=== PATIENT | male | born 1960 | race Caucasian/White ===

== ENCOUNTER 2017-10-21 17:30 | Outpatient (RCR) | payer MEDICAID, SELFPAY ==
--- NOTE | 2017-10-09 13:53 | HP.PTEVAL_ITS ---
Patient's Visit Information ESTEFANIA MILLER is a 56 year old M referred to Physical Therapy by Gil Otoole, Asha German PA-C with a diagnosis of S/P liver transplant , general weakness. Date of Evaluation: 10/07/17 Physical Therapist: Kirby Grayson - Visit Plan Frequency: 2x /Week Duration: 4 Weeks Plan: Start general mobility in aquatic setting with hip and LE strengthening. Progress dynamic balance and core stability. Pt. is not push, pull, lift greater than 5 lbs for 12 weeks. - Subjective Subjective: Pt. is here today for his initial evaluation with diagnosis of s/p liver transplant and general weakness. Pt. is a plesant 56 y.o. male who is know to this PT. He had his liver transplant on 2016. He is now back home and reports that he is doing well. Pt. is now walking with a cane due to R hip pain. He has a history of R TKA in 2013 then again in 2014. He reports having a femoral nerve injury with the initial hip arthroplasty and damage to lateral tendons of his hip. He denies falls since being home and reports feeling a lot better over the last 1-2 weeks. He is on antirejection medications and bactrum for 3 months. He is hopeful to improve general mobility , increase R hip strength allowing for increased ability to ambulate over greater distances with decreased limitations. - Pain R hip Pain Intensity (Out of 10): 2 Pain Intensity Range: 0, 6 - Objective POSTURE: Pt. had general flexed posture in stance. Pt. has rounded shoulders with slight FH. Pt. has increased ROSE in stance. Pt. is able to correct posture with VCing. Pt. does have L lateral lean in stance. Pt. has normal iliac crest heights. PALPATION: Pt. has well healing of abdominal incision. Pt. has increased pain with palpation of R posterior and lateral hip. Pt. has no pain at lumbar spine. Pt. has no signs of infection at this point in time. NEUROLOGICAL: Pt. has normal sensation of bilateral LEs to light and sharp touch. Pt. has 2+ bilateral achilles and patellar DTR bilateral. Pt. is able to rise on heels and toes without LOB and no visible signs of weakness. ROM- Pt. has normal ankle and knee ROM bilaterally. R hip- flexion 120deg mild increase NW, abd 45deg. NE, ext 8deg NE, tight HS noted. L hip- flexion 119deg NE, abd 45deg, ext 16deg NE, tight HS noted bilaterally. MMT- RLE- ankle 5/5 throughout ; knee- ext 4+/5, flexion 4/5; hip- flexion 3/5, abd 3-/5, ext 3/5. LLE- ankle 5/5 throughout; knee ext 4+/5, flexion 4/5; hip- flexion 4/5, abd 4/5, ext 4/5. GAIT: Pt. ambulates with single point cane. Pt. has increased R lateral trunk lean during R stance phase. Pt. reports increased R hip pain during stance phase. Pt. has decreased L step length. STAIRS: Pt. is able to complete with step to pattern with L loading phase. Pt. has difficulty with controlled eccentric lowering. - Goals Goal 1:: Pt. to be I with HEP. Goal Time Frame: 4-6 Weeks Goal 2:: Pt. to have increased bilateral LE strength by 1/2 grade of all effected musculature. Goal Time Frame: 4-6 Weeks Goal 3:: Pt. to ambulate unlimited distances with cane vs no AD allowing for increased community mobility. Goal Time Frame: 4-6 Weeks Goal 4:: Pt. to reports reduced R hip pain with ambulation to 0-2/10 pain with all functional mobility. Goal Time Frame: 4-6 Weeks Goal 5:: Pt. to negotiate steps with 1 HR with reciprocal pattern with 0-2/10 pain in R hip. - Rehabilitation Potential Physical Therapy Diagnosis: Pt. has signs and symtoms of general bilteral LE weakness, difficulty with gait, R hip pain and is S/P liver transplant in 2016. He would benefit from PT to increase BLE strength, gait progression, R hip stability/strength and cardiovascular fitness. Pt. to start in aquatic setting and progress to land as tolerated. Rehabilitation Potential: Good - Anticipated Interventions Patient/Client Instruction: Educate patient on: Condition, Plan of Care, Risk Factors, Benefits of Fitness Program For the Purpose of:: To foster healthy habits, To improve decision making, To facilitate caregiver knowledge, To improve self management, To prevent re-injury , To improve ability to perform tasks related to life management, To improve tolerance to ADL's Therapeutic Exercise to Include: Strength training, Power training, Endurance training, Balance training, Postural training, Flexibilty training, Gait and locomotor training, In an aquatic setting, Passive ROM, Active ROM, Dynamic Lumbar Stabilization For the Purpose of:: To decrease pain, To increase ROM, To improve nutrient delivery to tissue, To increase oxygenation perfusion, To improve muscle performance and motor function, To improve ability to perform ADL's, To improve performance and independence with ADL's, To improve gait and locomotor functions , To improve health of tissue, To decrease soft tissue restriction Thank you for the opportunity to evaluate your patient. For Medicare and Medicare HMO plans, please review the plan of care and approve it. It will need to be FAXED BACK to us at [phone] for Medicare purposes. Please let me know if there are questions or concerns regarding this plan of care. Physician Signature: Date:
--- NOTE | 2018-05-15 10:43 | HP.PTDCNRP_ITS ---
HP - Discharge Summary (1) - Patient Information ESTEFANIA MILLER Jr. was seen in my office for initial evaluation on 10/07/17. The following Plan of Care was established for this patient: Initial Frequency: 2x /Week Initial Duration: 4 Weeks - Anticipated Interventions Patient/Client Instruction: Educate patient on: Condition, Plan of Care, Risk Factors, Benefits of Fitness Program For the Purpose of:: To foster healthy habits, To improve decision making, To facilitate caregiver knowledge, To improve self management, To prevent re-injury , To improve ability to perform tasks related to life management, To improve tolerance to ADL's Therapeutic Exercise to Include: Strength training, Power training, Endurance training, Balance training, Postural training, Flexibilty training, Gait and locomotor training, In an aquatic setting, Passive ROM, Active ROM, Dynamic Lumbar Stabilization For the Purpose of:: To decrease pain, To increase ROM, To improve nutrient delivery to tissue, To increase oxygenation perfusion, To improve muscle performance and motor function, To improve ability to perform ADL's, To improve performance and independence with ADL's, To improve gait and locomotor functions , To improve health of tissue, To decrease soft tissue restriction This patient was last seen in our office 10/21/17. Pertinent comments regarding their Physical therapy will appear below: Pt. was treated for general debility after liver transplant. Pt. was to be treated in aquatic setting, but had to miss several visits due to soreness and fatigue. Pt. stopped attending PT and has not been seen in ~6 months. Pt. will be DC from PT at this point in time. At this point I will be discontinuing this patient from physical therapy. I would be happy to see this patient again in the future if found appropriate by the physician. Thank you! Kirby Grayson
== END 2017-10-21 19:00 | disposition home or self-care (01) ==
LOC: PT 17:30
PROVIDERS: Family Provider Family Medicine; PCP Family Medicine; Visit Provider Internal Medicine
DX: R53.1 Weakness (principal); Z94.4 Liver transplant status
CPT/HCPCS: 97113; 97162

== ENCOUNTER 2017-10-29 20:47 | Emergency (ER) | payer MEDICAID, SELFPAY ==
[2017-10-29 20:47] VITALS: BP 148/65; PULSE 57; RESP 24; TEMP 36.6; O2SAT 100; BMI 36.9
--- NOTE | 2017-10-29 21:15 | RAD_ITS ---
STUDY: X-RAY - ABDOMEN/PELVIS REASON FOR EXAM: Male, 56 years old. Constipation x5 days TECHNIQUE: Two AP supine views of the abdomen and pelvis. COMPARISON: None. FINDINGS: Normal visualized lung bases. There is an unremarkable bowel gas pattern. There is no demonstrated free abdominal air. The visualized liver, spleen and kidneys are grossly normal in size and morphology. Surgical clips are seen in the epigastric region. Total bilateral hip replacements are seen with implants appearing in good position. RAD/Abdomen Single View (Portable) IMPRESSION: The bowel gas pattern is unremarkable with no evidence of ileus or obstruction. There is an average amount of colonic stool. Status post total bilateral hip replacements. Electronically Signed: Lew Gutiérrez MD at 22:22 EST , Service support ,
[2017-10-29 22:37] VITALS: RESP 18
--- NOTE | 2017-10-29 22:37 | ED.DCSUM_ITS ---
- ER Visit Summary Date of Service: 10/29/17 Chief Complaint: Constipation History of Present Illness: The patient is a 56 M with constipation. Unable to have a bowel movement for 5 days. Past 2 days has used multiple doses of MiraLAX and Dulcolax. He states he tried disimpacting today with no success. She is normally has bowel movements daily. He is on oxycodone for chronic right hip pain. No changes in his doses. New medication with pravastatin started 11 days ago, he states he stopped this 7 days ago. States had lower abdominal discomfort due to his constipation. No fevers. He is status post liver transplant July of last year at [facility]. No urinary symptoms. No nausea or vomiting. Physical Examination: General: Alert and oriented ?3, no acute distress HEENT: Normocephalic, atraumatic. Moist mucosa membranes Neck: supple, nontender. Cardiovascular: Regular rate and rhythm, no murmurs Respiratory: Normal breath sounds, symmetric, no distress Abdomen: Soft, mild tenderness suprapubic without guarding or rebound., nondistended. Normal bowel sounds. Rectal: No hemorrhoids, digital exam noted impacted stools. No gross bleeding Extremities: Nontender, no edema, pulses intact ?4 Neuro: no focal neurological deficits. Test Results: KUB: Stool is noted in the distal rectum Emergency Department Course and Treatment: Patient was then impacted by myself in the ED. Sent for a KUB no stool in the distal rectum. I did order for soapsuds enema, given, is able to have a large bowel movement with improvement of symptoms. Reevaluation abdomen is now soft without tenderness. He is on opiates, he also states is on magnesium therefore causes loose stools therefore does not use his stool softeners daily. Discussed at least using MiraLAX once a day monitoring for at least daily bowel movements. Follow-up with his PCP for reevaluation as needed. Treatment Plan: [] Disposition: Discharge Impression: 1. Constipation resolved This note was generated with Owned it dictation software. It may contain incorrect words, spelling, and punctuation that were not noted in review of the chart prior to signing ED Disposition - Plan for ED Patient: Disposition: Home or Assisted Living Chief Complaint: Constipation Diagnosis: Constipation Instructions: ED Constipation Referrals: Raul Uribe [Primary Care Provider] - 5-7 Days
== END 2017-10-29 22:38 | disposition home or self-care (01) ==
PROVIDERS: Emergency Provider Emergency Medicine; Family Provider Family Medicine; PCP Family Medicine
DX: K59.00 Constipation, unspecified (principal); I25.10 Atherosclerotic heart disease of native coronary artery without angina pectoris; K75.81 Nonalcoholic steatohepatitis (NASH); N18.9 Chronic kidney disease, unspecified; M25.551 Pain in right hip; G89.29 Other chronic pain; I25.2 Old myocardial infarction; Z94.4 Liver transplant status
CPT/HCPCS: 74018; 99284

== ENCOUNTER 2017-11-15 15:13 | Emergency (ER) | payer MEDICARE, SELFPAY ==
[2017-11-15 15:14] VITALS: BP 121/74; PULSE 46; RESP 18; TEMP 36.7; O2SAT 95; BMI 37.3
--- NOTE | 2017-11-15 16:14 | ED.VISSUMM ---
- ER Visit Summary Date of Service: 11/15/17 Chief Complaint: Sent in for high potassium History of Present Illness: The patient is a 56 M patient history of liver failure in which she received a liver transplant around 3 months with [facility]. He also had a cholecystectomy. He also has stage III renal insufficiency coronary disease and cardiac stents. Denies any complaints. States that he had screening labs done 2 days ago. [facility] called him today his potassium is elevated 5.9 and wanted him evaluated in the ER. Physical Examination: Vital signs are stable afebrile. Pulse ox 95% room air no signs of hypoxia. Blood pressure 121/74. HEENT exam unremarkable. Neck nontender. Lungs clear to auscultation bilaterally. Heart rate rate and rhythm no murmur. Abdomen soft nontender. He is moving all 4 extremities. They are nontender. Back exam he has mild right paraspinal soft tissue tenderness he states he pulled a muscle in his back several days ago. There is no ecchymosis or bruising. Neurologic exam is normal. No motor deficits Test Results: CBC showed a normal white count his hemoglobin is 9.9 which is along his baseline of 7. His electrolytes are unremarkable and potassium of 5.3. He is chronic renal sufficiency his creatinine is 2.4 last and it was done was several months ago here at the hospital and it was 2.31 at that time. Emergency Department Course and Treatment: Labs will be rechecked. Treatment Plan: She is doing well on repeat exam at 1721. He will be discharged to home. He will need his potassium levels rechecked. He will be instructed to stay away from potassium rich foods. Disposition: Discharge Impression: Acute on chronic renal insufficiency with mild hyperkalemia Chronic anemia This note was generated with Sonics dictation software. It may contain incorrect words, spelling, and punctuation that were not noted in review of the chart prior to signing ED Disposition - Plan for ED Patient: Chief Complaint: Abn Labs Referrals: Raul rUibe [Primary Care Provider] -
--- NOTE | 2017-11-15 16:17 | ED.DCSUM_ITS ---
- ER Visit Summary Date of Service: 11/15/17 Chief Complaint: Sent in for high potassium History of Present Illness: The patient is a 56 M patient history of liver failure in which she received a liver transplant around 3 months with [facility]. He also had a cholecystectomy. He also has stage III renal insufficiency coronary disease and cardiac stents. Denies any complaints. States that he had screening labs done 2 days ago. [facility] called him today his potassium is elevated 5.9 and wanted him evaluated in the ER. Physical Examination: Vital signs are stable afebrile. Pulse ox 95% room air no signs of hypoxia. Blood pressure 121/74. HEENT exam unremarkable. Neck nontender. Lungs clear to auscultation bilaterally. Heart rate rate and rhythm no murmur. Abdomen soft nontender. He is moving all 4 extremities. They are nontender. Back exam he has mild right paraspinal soft tissue tenderness he states he pulled a muscle in his back several days ago. There is no ecchymosis or bruising. Neurologic exam is normal. No motor deficits Test Results: CBC showed a normal white count his hemoglobin is 9.9 which is along his baseline of 7. His electrolytes are unremarkable and potassium of 5.3. He is chronic renal sufficiency his creatinine is 2.4 last and it was done was several months ago here at the hospital and it was 2.31 at that time. Emergency Department Course and Treatment: Labs will be rechecked. Treatment Plan: She is doing well on repeat exam at 1721. He will be discharged to home. He will need his potassium levels rechecked. He will be instructed to stay away from potassium rich foods. Disposition: Discharge Impression: Acute on chronic renal insufficiency with mild hyperkalemia Chronic anemia This note was generated with Elpas dictation software. It may contain incorrect words, spelling, and punctuation that were not noted in review of the chart prior to signing ED Disposition - Plan for ED Patient: Chief Complaint: Abn Labs Referrals: Raul Uribe [Primary Care Provider] -
[2017-11-15 16:42] LABS: Hematocrit 30.9 % (40-54); Hemoglobin 9.9 g/dl (13.0-16.5); Mean Corpuscular Hgb 31.3 pg (27.0-32.0); Mean Corpuscular Volume 97.8 fL (80-94); Mean Platelet Vol. 9.6 fl (6.2-12.0); Platelet Count 183 K/mm3 (150-450); RBC Distribution Width CV 15.3 % (11.6-14.6); RBC Distribution Width SD 52.4 fl (35.1-43.9); Red Blood Count 3.16 M/mm3 (4.6-6.2); Scan Indicated on CBC? Y/N NO; White Blood Count 4.8 K/mm3 (4.4-11.0)
[2017-11-15 16:56] LABS: Anion Gap 5 (5-15); BUN 33 mg/dL (7-18); BUN/Creat Ratio 13.8 RATIO (10-20); Calcium,Total 8.4 mg/dL (8.5-10.1); Chloride 108 mmol/L (98-107); EST Glomerular Filtration Rate 30 mL/min (>60); Est Glom Filt Rate - Afr Amer 36 mL/min (>60); Glucose 105 mg/dL (74-106); Potassium 5.3 mmol/L (3.5-5.1); Sodium Level 141 mmol/L (136-145)
--- NOTE | 2017-11-15 17:23 | ED.DEP ---
ED Disposition - Plan for ED Patient: Disposition: Home or Assisted Living Chief Complaint: Abn Labs Instructions: Discharge Instructions for Hyperkalemia Referrals: Raul Uribe [Primary Care Provider] - 1 Week Additional Instructions: On follow-up your primary care physician next week to have your potassium rechecked. Avoid potassium rich foods such as bananas, potatoes and citrus fruits.
[2017-11-15 17:35] VITALS: BP 127/91; PULSE 82; RESP 18
== END 2017-11-15 17:38 | disposition home or self-care (01) ==
PROVIDERS: Emergency Provider Emergency Medicine; Family Provider Family Medicine; PCP Family Medicine
DX: E87.5 Hyperkalemia (principal); N17.9 Acute kidney failure, unspecified; N18.3 Chronic kidney disease, stage 3 (moderate); I25.10 Atherosclerotic heart disease of native coronary artery without angina pectoris; D64.9 Anemia, unspecified; Z94.4 Liver transplant status; Z79.82 Long term (current) use of aspirin; Z79.899 Other long term (current) drug therapy; I25.2 Old myocardial infarction; Z95.5 Presence of coronary angioplasty implant and graft; Z90.49 Acquired absence of other specified parts of digestive tract
CPT/HCPCS: 80048; 85027; 99284; A4216

== ENCOUNTER → 2017-12-27 11:19 | Outpatient (CLI) | payer MEDICARE, SELFPAY ==
--- NOTE | 2017-12-27 11:30 | RAD_ITS ---
STUDY: X-RAY - RIGHT SHOULDER REASON FOR EXAM: Male, 56 years old. Pain. Previous surgery. TECHNIQUE: 4 view(s) of the shoulder. COMPARISON: None. FINDINGS: Normal glenohumeral articulation. Widening of the AC joint measuring 9 mm, possibly a chronic separation or related to previous surgery. Normal acromion. Normal humeral head and visualized proximal humerus. The soft tissue structures are unremarkable. There is no demonstrated fracture. Normal visualized pulmonary apex. RAD/Shoulder min 2 Views IMPRESSION: No acute fracture or dislocation. Widened AC joint. Electronically Signed: Karl Bailon MD at 20:44 EDT , Service support ,
--- NOTE | 2017-12-27 11:30 | RAD_ITS ---
STUDY: X-RAY - LEFT SHOULDER REASON FOR EXAM: Male, 56 years old. Shoulder pain. Previous surgery. TECHNIQUE: 4 view(s) of the shoulder. COMPARISON: None. FINDINGS: Normal glenohumeral articulation. There is degenerative arthrosis of the acromioclavicular joint without inferior osseous spur formation. Normal acromion. Normal humeral head and visualized proximal humerus. The soft tissue structures are unremarkable. There is no demonstrated fracture. Normal visualized pulmonary apex. RAD/Shoulder min 2 Views IMPRESSION: No acute fracture or dislocation. Degenerative changes of the AC joint. Electronically Signed: Karl Bailon MD at 20:43 EDT , Service support ,
== END ==
PROVIDERS: Family Provider Family Medicine; PCP Family Medicine; Visit Provider Anesthesiology Pain Medicine
DX: M25.512 Pain in left shoulder (principal); M25.511 Pain in right shoulder
CPT/HCPCS: 73030

== ENCOUNTER 2018-03-19 09:56 | Outpatient (RCR) | payer MEDICARE, SELFPAY ==
--- NOTE | 2018-03-26 09:57 | HP.OTFCE_ITS ---
HP OT Functional Capacity Eval - Reference Duration Sedentary Sedentary Light Light Light Medium Medium Medium Heavy Very Heavy Heavy Occasional (0-33% of day) Frequent (34-66% of day) Constant (67-100% of day) 10 # Negligible Negligible 15 # 8 # Negligible 20 # 10# Negli. 35 # 18 # 7 # 50 # 25 # 10 # 75 # 100 # >100 # 38 # 50 # >50 # 15 # 20 # >20 # - Patient Information Height: 5 ft 10 in Weight:: 118.388 kg Hand Dominance: Right handed - Medical History Medical History Including Restrictions: PAF, AISSATOU, SVT, s/p liver transplant, hypomagnesemia, ascites, FELIPE, venous insufficiency, morbid obesity, anemia of chronic disease, CAD, chronic renal failure stage 3. Pt states pain in unspecified shoulder, chronic pain syndrome, radiculopathy lumbar region, other intervertebral disc disp. lumbar, other intervertebral disc disp lumbosacral, pain in unspecified hip, broken tailbone, bilateral shoulder sx's, cortizone shots in bilateral shoulders, R shoulder 03, L shoulder 08, R hip sx THR 2013, 2014, L hip THR 2014, Liver transplant 2016, heart attack with 2 stents 2015, gall bladder 03, R foot sx 80, 82, skin cancer L hand, L ear. - Diagnoses Diagnoses: PAF, AISSATOU, SVT, s/p liver transplant, hypomagnesemia, ascites, FELIPE, venous insufficiency, morbid obesity, anemia of chronic disease, CAD, chronic renal failure stage 3. Pt states pain in unspecified shoulder, chronic pain syndrome, radiculopathy lumbar region, other intervertebral disc disp. lumbar, other intervertebral disc disp lumbosacral, pain in unspecified hip, broken tailbone, bilateral shoulder sx's, cortizone shots in bilateral shoulders, R shoulder 03, L shoulder 08, R hip sx THR 2013, 2014, L hip THR 2014, Liver transplant 2016, heart attack with 2 stents 2015, gall bladder 03, R foot sx 80 , 82, skin cancer L hand, L ear. - Symptoms Symptoms: Pt states pain all the time, difficult time sleeping, stabbing pain L and R hips, dull ache L hip down his leg, R hip to back pain. - Pain Pain: L hip 03/11 during evaluation. Pt states pain all the time, difficult time sleeping, stabbing pain L and R hips, dull ache L hip down his leg, R hip to back pain. 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 Pt has been unemployed since December 2014. - ADLS ADLS: Pt lives w/ spouse, 1 story house, ramp to enter. AMB w/ rollator in community, AMB w/ std cane in house unless feeling unstable, pt states occassionally balance seems to be off. Indep w/ BADL's, occassionally requires assist with donning socks if pain bad. Indep w/ laundry and meal prep tasks. Laundry on main level. Weight restrictions 20# per pt, He can't roller picker his golf bag. Shower chair and grab bars in/out of shower, Comfort height commodes w / grab bar. Walk in shower w/ glass door. Dog Johan to care for gets food and water for the dog. Drives up to about an hour before he needs to move around. Sleeps in regular bed with orthopedic firm mattress. - Physical Examination Physical Examination: Enjoys playing golf has played 2 times this year, but states unable to finish all the holes because of pain. Going to look at mobile homes today to live in for 3 to 4 months at a time during winter months. ROM: BUE/BLE WFL Strength: Generlized MMT BUE 4/5, R LE 3+/5, L LE 4-/5 Right Equipment Associate Strength Average: 80.00 Left Equipment Associate Strength Average: 73.33 Right Lateral Pinch Average: 14.00 Left Lateral Pinch Average: 14.00 Right Tripod Pinch Average: 15.33 Left Tripod Pinch Average: 15.00 Comments: Pt completed functional activities questionnaire stating no he does not exercise regularly, yes he can do yard work if he paces himself, no he can not sit through a movie, play or concert, yes he can walk around his yard, no he can't walk around the block. yes he can shop for groceries using a scooter, no he can not carry groceries into the house and put them away, yes he can do the laundry and no he can not walk up/down steps. Yes he is able to cook and do housework such as sweeping but difficult. Yes he is able to bath, feed, dress and otherwise care for himself. Pt states he can drive or ride in a car for 1.5 hrs before needing to get out and stretch. He can walk at a mall, fair or event for 15-20 minutes. He usually sits for 1/2 hrs a day. He usually stands or walks for 1/2hrs a day. He usually lie/reclines for 1/2 hrs a day. His most comfortable position is lying flat. Sensation: Pt states numbness/tingling bilateral hips and hands, L hip down to middle of thigh Fine Motor: Pt states independent with all fine motor tasks. Balance: No falls in past 3 months. Pt states has had close calls with falls, walking into kitchen losing balance. - Non Material Handling Activities Bendin time slow, 10 times fast pace, with increased pain R hip 5/10 after completing bending tasks to floor. Squatting: Pt went to take first squat using chair for support, pt fell to floor on first squat when bending down. Pt stated no pain, pt was able to roll over and use the chair to climb up into standing position independently with therapist by his side. Pt stated no pain from fall just his pride. Once pt back up he used table/desk for support and completed 10 squats at a consistant pace. Kneeling: Pt states unable to complete kneeling. Declined to complete kneeling task. Reaching out/up: Pt demonstrated good ability to reach up and out to sides without loss of balance. Walking: Pt able to complete 15 min walk test around facility ambulating with std cane Standing: No loss of balance noted during standing. Sitting: Pt sat 9-10 min at a time then has to stand secondary to pain Climbing Stairs: Pt able to climb flight of 10 steps up/down with L hand on cane for support, R hand holding handrail. - Dynamic Occasional Lifting Capacity Floor Lift: Pt able to complete floor lift 20lb max secondary to pt's weight restrictions. Knee Lift: Pt able to complete knee lift 20lb max secondary to pt's weight restrictions Waist Lift: Pt able to complete waist lift 20lb max secondary to pt's weight restrictions Shoulder Lift: Pt able to complete shoulder lift 20lb max secondary to pt's weight restrictions Overhead Lift: Pt able to complete overhead lift 20lb max secondary to pt's weight restrictions Carrying: Pt able to carry 20lb max secondary to pt's weight restrictions Comments: Weight limit 20lb per pt
== END 2018-03-19 19:00 | disposition home or self-care (01) ==
LOC: OT 09:56
PROVIDERS: Family Provider Family Medicine; PCP Family Medicine; Visit Provider Anesthesiology Pain Medicine
DX: M25.519 Pain in unspecified shoulder (principal); G89.4 Chronic pain syndrome; M54.16 Radiculopathy, lumbar region; M54.17 Radiculopathy, lumbosacral region; M51.36 Other intervertebral disc degeneration, lumbar region; M51.37 Other intervertebral disc degeneration, lumbosacral region; M51.26 Other intervertebral disc displacement, lumbar region; M51.27 Other intervertebral disc displacement, lumbosacral region; M25.559 Pain in unspecified hip; M15.9 Polyosteoarthritis, unspecified; M96.1 Postlaminectomy syndrome, not elsewhere classified; M25.511 Pain in right shoulder; M25.512 Pain in left shoulder; M48.061 Spinal stenosis, lumbar region without neurogenic claudication
CPT/HCPCS: 97165; 97166; G8987; G8988; G8989

== ENCOUNTER 2018-04-18 11:41 | Emergency (ER) | payer MEDICARE, SELFPAY ==
[2018-04-18 11:42] VITALS: BP 130/71; PULSE 56; RESP 18; TEMP 36.6; O2SAT 99; BMI 38.4
[2018-04-18 12:09] VITALS: BP 128/80; PULSE 82; RESP 20; TEMP 36.8; O2SAT 98
[2018-04-18] MEDS: Ondansetron 4 MG/2 ML Vial IV (12:14)
[2018-04-18] MEDS: Morphine 4 MG/ML Syringe IV ×2 (12:14→14:17)
[2018-04-18] MEDS: 0.9% Normal Saline 1,000 ML 1000 ML IV (12:14)
[2018-04-18 12:23] LABS: Absolute Lymphocyte Count 0.81 X10^3/ul (0.83-4.51); Absolute Neutrophil Count 3.8 X10^3/uL (2.0-7.7); Basophil# 0.01 X10^3/uL; Basophil% 0.2 % (0-1); Eosinophil# 0.06 X10^3/uL; Eosinophils% 1.1 % (0-5); Hematocrit 27.9 % (40-54); Hemoglobin 9.2 g/dl (13.0-16.5); Lymphocyte # 0.81 X10^3/ul (4.0); Mean Corpuscular Hgb 30.2 pg (27.0-32.0); Mean Corpuscular Volume 91.5 fL (80-94); Mean Platelet Vol. 10.5 fl (6.2-12.0); Monocyte# 0.73 X10^3/uL; Monocyte% 13.5 % (0-10); Neutrophil # 3.78 X10^3/uL (2.7-7.7); Platelet Count 140 K/mm3 (150-450); RBC Distribution Width CV 12.1 % (11.6-14.6); RBC Distribution Width SD 39.5 fl (35.1-43.9); Red Blood Count 3.05 M/mm3 (4.6-6.2); White Blood Count 5.4 K/mm3 (4.4-11.0)
[2018-04-18 12:32] LABS: POSITIVE COUNT NO; POSITIVE DIFFERENTIAL NO; POSITIVE MORPHOLOGY NO
[2018-04-18 12:37] LABS: AST(SGOT) 14 U/L (15-37); Alanine Aminotransfer ALT/SGPT 37 U/L (16-61); Albumin, Serum 2.3 g/dL (3.2-5.0); Alkaline Phosphatase 234 U/L (45-117); Anion Gap 7 (5-15); BUN 27 mg/dL (7-18); BUN/Creat Ratio 14.1 RATIO (10-20); Bilirubin, Direct 0.56 mg/dL (0.00-0.30); Calcium,Total 8.4 mg/dL (8.5-10.1); Chloride 108 mmol/L (98-107); Creatinine, Serum 1.92 mg/dL (0.70-1.30); EST Glomerular Filtration Rate 39 mL/min (>60); Est Glom Filt Rate - Afr Amer 47 mL/min (>60); Estimated Creatinine Clearance 43.83 ml/min; Globulin 3.9 g/dL (2.2-4.2); Glucose 103 mg/dL (74-106); Lipase 47 U/L (73-393); Potassium 4.9 mmol/L (3.5-5.1); Protein, Total 6.2 g/dL (6.4-8.2); Sodium Level 139 mmol/L (136-145)
--- NOTE | 2018-04-18 13:27 | ED.VISSUMM ---
- ER Visit Summary Date of Service: 04/18/18 Chief Complaint: Abdominal pain, nausea History of Present Illness: The patient is a 57 M who presents with abdominal pain as well as nausea. This pain started about a week ago. At that time he had a biliary stent put in because he had a stone. This was done by ERCP. After that he started having some nausea. His pain is sharp in the right upper quadrant epigastric area. He denies any diarrhea. No urinary symptoms. Patient has a history of a liver transplant last July due to nonalcoholic steatohepatitis and alpha-1 antitrypsin. He has not had a fever. He tried Zofran at home which did not help his symptoms. Physical Examination: Vital signs are reviewed. Well-developed gentleman in no distress. BMI 38.5. HEENT exam unremarkable. Heart is regular rate and rhythm. Lungs are clear to auscultation bilaterally. Abdomen is soft and nondistended. He has pain in the right upper quadrant as well as epigastric area. His extremities do not reveal any edema. Skin is of normal color without rash. No jaundice. Cheek exam is normal. Test Results: White blood cell count normal. Hemoglobin 9.2. Creatinine 1.92. Liver panel shows a total bilirubin of 1, direct 0.56. Alk phos 234. AST 14, lipase 47. CAT scan without contrast reveals a stent in place. There are some varices noted. Nothing acute seen. Emergency Department Course and Treatment: She was given morphine and Zofran as well as IV fluids. I am unclear the etiology of his pain. There is no post ERCP pancreatitis. No signs of cholangitis. His white count is normal. I spoke with Asha from the [facility] transplant team. She agrees that there is nothing acute at this point. The patient is already on extended release morphine and OxyIR at home. He will continue these. She states to tell the patient that if he is not better in 2-3 days to call them they will arrange for more testing. Treatment Plan: [] Disposition: Discharge Impression: Abdominal pain status post ERCP, liver transplant patient This note was generated with TuneCoreation software. It may contain incorrect words, spelling, and punctuation that were not noted in review of the chart prior to signing ED Disposition - Plan for ED Patient: Chief Complaint: Abd Pain Referrals: Raul Uribe [Primary Care Provider] -
--- NOTE | 2018-04-18 13:58 | ED.DEP ---
ED Disposition - Plan for ED Patient: Disposition: Home or Assisted Living Chief Complaint: Abd Pain Instructions: ED Abdominal Pain Unkn Cause Referrals: Raul Uribe [Primary Care Provider] -
[2018-04-18 14:21] VITALS: BP 107/60
== END 2018-04-18 14:22 | disposition home or self-care (01) ==
PROVIDERS: Emergency Provider Emergency Medicine; Family Provider Family Medicine; PCP Family Medicine
DX: R10.11 Right upper quadrant pain (principal); R10.13 Epigastric pain; R11.0 Nausea; I25.10 Atherosclerotic heart disease of native coronary artery without angina pectoris; I25.2 Old myocardial infarction; Z79.82 Long term (current) use of aspirin; Z79.899 Other long term (current) drug therapy; Z98.890 Other specified postprocedural states; Z94.4 Liver transplant status
CPT/HCPCS: 74176; 80048; 80076; 83690; 85025; 96374; 96375; 96376; 99283; J7030; A4216; J2405

== ENCOUNTER 2018-07-24 12:40 | Emergency (ER) | payer MEDICARE, SELFPAY ==
[2018-07-24 12:40] VITALS: BP 161/90; PULSE 59; RESP 18; TEMP 36.2; O2SAT 98; BMI 34.8
--- NOTE | 2018-07-24 12:50 | EKG12_ITS ---
Test Reason : HTN Blood Pressure : / mmHG Vent. Rate : 057 BPM Atrial Rate : 057 BPM P-R Int : 202 ms QRS Dur : 094 ms QT Int : 454 ms P-R-T Axes : 012 -24 013 degrees QTc Int : 441 ms Sinus bradycardia Otherwise normal ECG Confirmed by SAHIL SHIPMAN, ROULA ([id number]), photography editor FÁTIMA RIVERA ([id number]) on 07/28/2018 10:17:59 AM Referred By: JERMAINE Confirmed By:ROULA BAXTER MD
--- NOTE | 2018-07-24 12:53 | RAD_ITS ---
STUDY: X-RAY CHEST REASON FOR EXAM: Male, 57 years old. Vomiting and shaking TECHNIQUE: Single view of the chest was obtained COMPARISON: May 16, 2017 chest radiograph FINDINGS: No lung consolidation, pleural effusion or pneumothorax. Cardiac size is mildly enlarged. Osseous structures demonstrate no acute abnormalities. IMPRESSION: Mild cardiomegaly. No lung consolidation or pneumothorax. No acute pulmonary pathology seen. Electronically Signed: Raymundo Snyder, at 13:29 EST Tel , Service support , RAD/Chest 1 View (Portable)
--- NOTE | 2018-07-24 12:57 | ED.VISSUMM ---
- ER Visit Summary Date of Service: 07/24/18 Chief Complaint: Weakness History of Present Illness: The patient is a 57 M presenting with generalized weakness and fatigue. His symptoms started yesterday. He has had nausea with no vomiting. He denies abdominal pain. He has had unsteady gait secondary to weakness. Per family he has been confused. He has had similar symptoms in the past when his ammonia levels have been high. He takes lactulose but his family states he sometimes misses doses. He was admitted to [facility] in June and found to have a blood clot in his liver. He is status post liver transplant 1 year ago. Physical Examination: Vitals are stable. Patient is afebrile. Alert no acute distress. HEENT exam dry mucous membranes Neck is supple. Lungs are clear and equal bilaterally. Heart is regular and bradycardic Abdomen is soft nontender nondistended. No guarding or rebound Extremities are unremarkable. Skin is warm and dry. No focal neurologic deficit. Mild confusion Remainder of exam is unremarkable. Emergency Department Course and Treatment: Patient given IV fluids, Zofran. EKG is sinus bradycardia rate of 57 with no acute ischemic changes. Chest x-ray shows no acute process. CBC is normal except hemoglobin 11.3. Chemistries normal except for BUN 23, creatinine 1.86. Direct bili 0.37, alk phos 177. Lipase is normal. INR 1.9. Troponin is negative. Lactic acid is 2.2. Ammonia level is 110. Mag and phos are normal. Patient was given lactulose. Discussed with the patient and his family. They prefer admission to [facility]. Discussed with the hospitalist. He feels patient should be transferred to [facility]. Family discussed with their veterans' coordinator who agrees with transfer. Discussed with [facility] and patient will be transferred. Disposition: Transfer [facility] Impression: Hepatic encephalopathy This note was generated with [employer] dictation software. It may contain incorrect words, spelling, and punctuation that were not noted in review of the chart prior to signing ED Disposition - Plan for ED Patient: Chief Complaint: Hypertension Referrals: Raul Uribe [Primary Care Provider] -
[2018-07-24] MEDS: Ondansetron 4 MG/2 ML Vial IV (12:59)
--- NOTE | 2018-07-24 13:00 | ED.DCSUM_ITS ---
- ER Visit Summary Date of Service: 07/24/18 Chief Complaint: Weakness History of Present Illness: The patient is a 57 M presenting with generalized weakness and fatigue. His symptoms started yesterday. He has had nausea with no vomiting. He denies abdominal pain. He has had unsteady gait secondary to w eakness. Per family he has been confused. He has had similar symptoms in the past when his ammonia levels have been high. He takes lactulose but his family states he sometimes misses doses. He was admitted to [facility] in June and found to have a blood clot in his liver. He is status post liver transplant 1 year ago. Physical Examination: Vitals are stable. Patient is afebrile. Alert no acute distress. HEENT exam dry mucous membranes Neck is supple. Lungs are clear and equal bilaterally. Heart is regular and bradycardic Abdomen is soft nontender nondistended. No guarding or rebound Extremities are unremarkable. Skin is warm and dry. No focal neurologic deficit. Mild confusion Remainder of exam is unremarkable. Emergency Department Course and Treatment: Patient given IV fluids, Zofran. EKG is sinus bradycardia rate of 57 with no acute ischemic changes. Chest x-ray shows no acute process. CBC is normal except hemoglobin 11.3. Chemistries normal except for BUN 23, creatinine 1.86. Direct bili 0.37, alk phos 177. Lipase is normal. INR 1.9. Troponin is negative. Lactic acid is 2.2. Ammonia level is 110. Mag and phos are normal. Patient was given lactulose. Discussed with the patient and his family. They prefer admission to [facility]. Discussed with the hospitalist. He feels patient should be transferred to [facility]. Family discussed with their student records coordinator who agrees with transfer. Discussed with [facility] and patient will be transferred. Disposition: Transfer [facility] Impression: Hepatic encephalopathy This note was generated with [employer] dictation software. It may contain incorrect words, spelling, and punctuation that were not noted in review of the chart prior to signing ED Disposition - Plan for ED Patient: Chief Complaint: Hypertension Referrals: Raul Uribe [Primary Care Provider] -
[2018-07-24 13:02] LABS: Absolute Lymphocyte Count 2.25 X10^3/ul (0.83-4.51); Absolute Neutrophil Count 4.2 X10^3/uL (2.0-7.7); Basophil# 0.02 X10^3/uL; Basophil% 0.3 % (0-1); Eosinophil# 0.13 X10^3/uL; Eosinophils% 1.8 % (0-5); Hematocrit 35.1 % (40-54); Hemoglobin 11.3 g/dl (13.0-16.5); Lymphocyte # 2.25 X10^3/ul (4.0); Lymphocyte % 31.2 % (19-41); Mean Corp Hgb Conc 32.2 g/gl (32-36); Mean Corpuscular Hgb 26.7 pg (27.0-32.0); Mean Corpuscular Volume 82.8 fL (80-94); Mean Platelet Vol. 9.4 fl (6.2-12.0); Monocyte# 0.65 X10^3/uL; Neutrophil # 4.15 X10^3/uL (2.7-7.7); Neutrophil % 57.6 % (47-70); POSITIVE COUNT NO; POSITIVE DIFFERENTIAL NO; POSITIVE MORPHOLOGY NO; Platelet Count 223 K/mm3 (150-450); RBC Distribution Width CV 16.5 % (11.6-14.6); RBC Distribution Width SD 49.3 fl (35.1-43.9); Red Blood Count 4.24 M/mm3 (4.6-6.2); White Blood Count 7.2 K/mm3 (4.4-11.0)
[2018-07-24 13:06] LABS: International Normalized Ratio 1.9; Prothrombin Time (Protime)PT. 21.6 SECONDS (11.7-14.9)
[2018-07-24 13:07] LABS: Partial Thromboplast Time 38.5 Seconds (24.1-36.2)
[2018-07-24 13:17] LABS: AST(SGOT) 25 U/L (15-37); Alanine Aminotransfer ALT/SGPT 29 U/L (16-61); Albumin, Serum 2.5 g/dL (3.2-5.0); Alkaline Phosphatase 177 U/L (45-117); Anion Gap 8 (5-15); BUN 23 mg/dL (7-18); BUN/Creat Ratio 12.4 RATIO (10-20); Bilirubin, Direct 0.37 mg/dL (0.00-0.30); Calcium,Total 8.5 mg/dL (8.5-10.1); Chloride 110 mmol/L (98-107); Creatinine, Serum 1.86 mg/dL (0.70-1.30); EST Glomerular Filtration Rate 40 mL/min (>60); Est Glom Filt Rate - Afr Amer 48 mL/min (>60); Estimated Creatinine Clearance 46.67 ml/min; Globulin 4.3 g/dL (2.2-4.2); Glucose 121 mg/dL (74-106); Lipase 174 U/L (73-393); Magnesium 1.8 mg/dL (1.6-2.6); Potassium 4.2 mmol/L (3.5-5.1); Protein, Total 6.8 g/dL (6.4-8.2); Sodium Level 142 mmol/L (136-145)
[2018-07-24 13:19] LABS: Phosphorus 3.4 mg/dL (2.5-4.9)
[2018-07-24 13:31] LABS: Lactic Acid 2.2 mmol/L (0.4-2.0)
[2018-07-24] MEDS: Lactulose 20 GM/30 ML UDC 10 GM PO (13:45)
[2018-07-24 13:48] VITALS: BP 157/88; PULSE 60; RESP 20; O2SAT 99
[2018-07-24 14:30] VITALS: BP 155/82; PULSE 54; RESP 14; O2SAT 98
[2018-07-24 14:31] LABS: Bacteria 0 SEEN /hpf (None Seen); Mucous, Urine 0 SEEN /hpf (<or=2+); Red Blood Cells-Urine 0 SEEN /hpf (0-5); Squamous Epithelial Cells - UA 0 SEEN /hpf (0-5); White Blood Cells 0 SEEN /hpf (0-5)
[2018-07-24 14:34] LABS: Color, Urine Yellow (Yellow); Glucose, Dipstick Normal (Normal); Ketone-Dipstick Negative (Negative); Leukocyte Esterase-Dipstick Negative /ul (Negative); Nitrite-Dipstick Negative (Negative); Occult Blood-Urine Negative /ul (Negative); Protein-Dipstick Negative (Negative); Specific Gravity, Urine 1.005 (1.002-1.030); Urine Bilirubin Dipstick Negative (Negative); Urine Clarity Sl. Cloudy (Clear); Urine Urobilinogen 8 mg/dl (Normal)
[2018-07-24 14:44] LABS: Amorphous Sediment 1+; Hyaline Cast 0-5 SEEN /lpf (0-5)
--- NOTE | 2018-07-24 15:17 | ED.RN ---
[facility] CALLED AND WILL BE HERE IN ABOUT 45 MIN
[2018-07-24 15:29] LABS: Amphetamine Urine VISTA NEGATIVE (<1000 ng/mL); Barbiturate Urine VISTA NEGATIVE (< 200 ng/mL); Benzodiazepine Urine VISTA NEGATIVE (< 200 ng/mL); Cocaine Urine VISTA NEGATIVE (< 300 ng/mL); Ecstacy Urine VISTA NEGATIVE (< 500 ng/mL); Methadone Urine VISTA NEGATIVE (< 300 ng/mL); PCP Urine VISTA NEGATIVE (< 25 ng/mL); THC Urine VISTA NEGATIVE (< 50 ng/mL); Vista UDS pH Range 7
[2018-07-24 15:30] VITALS: BP 156/79; PULSE 56; RESP 16; O2SAT 96
[2018-07-24 16:00] VITALS: BP 149/75; PULSE 57; RESP 14; O2SAT 97
[2018-07-24 16:28] VITALS: BP 148/78; PULSE 61; RESP 18; O2SAT 98
[2018-07-24 16:56] LABS: Reflex Lactate? Y
== END 2018-07-24 16:28 | disposition short-term general hospital (02) ==
PROVIDERS: Emergency Provider Emergency Medicine; Family Provider Family Medicine; PCP Family Medicine
DX: K72.90 Hepatic failure, unspecified without coma (principal); Z94.4 Liver transplant status; I10 Essential (primary) hypertension; I48.0 Paroxysmal atrial fibrillation; I25.10 Atherosclerotic heart disease of native coronary artery without angina pectoris; M06.9 Rheumatoid arthritis, unspecified; R00.1 Bradycardia, unspecified; R11.0 Nausea; I25.2 Old myocardial infarction; Z79.01 Long term (current) use of anticoagulants; Z79.82 Long term (current) use of aspirin; Z79.899 Other long term (current) drug therapy
CPT/HCPCS: 71045; 80048; 80076; 80307; 81001; 82140; 83605; 83690; 83735; 84100; 84484; 85025; 85610; 85730; 87040; 87086; 93005; 96361; 96374; 99285; J7040; A4216; J2405

== ENCOUNTER 2018-10-18 08:38 | Emergency (ER) | payer MEDICARE, SELFPAY ==
[2018-10-18 08:38] VITALS: BP 171/84; PULSE 58; RESP 18; TEMP 36.6; O2SAT 99; BMI 41.3
[2018-10-18 09:19] VITALS: BP 129/72; PULSE 53; RESP 12; TEMP 36.6; O2SAT 98
--- NOTE | 2018-10-18 09:40 | CT_ITS ---
STUDY: CT CERVICAL SPINE WITHOUT CONTRAST REASON FOR EXAM: Male, 57 years old. Fell into a wall from standing position RADIATION DOSAGE (If Supplied By Facility): CTDIvol = ( 38.74 ) mGy, DLP = ( 781.30 ) mGycm TECHNIQUE: High resolution transaxial imaging was performed without contrast material. Sagittal and coronal images were reconstructed. Individualized dose optimization techniques were used for this CT. COMPARISON: None FINDINGS: Normal craniovertebral junction. There are degenerative changes of the anterior atlantoaxial articulation. Normal odontoid process. There is straightening of the normal cervical lordosis. Normal vertebral bodies and posterior osseous elements. Ossifications of the posterior soft tissues compatible with old injury sequela. C2-3: Normal endplates. Normal disc height and morphology. Normal central canal and intervertebral neuroforamina. C3-4: Normal endplates. Normal disc height and morphology. Normal central canal and intervertebral neuroforamina. C4-5: Normal endplates. Normal disc height and morphology. Normal central canal and intervertebral neuroforamina. C5-6: Normal endplates. Normal disc height and morphology. Normal central canal and intervertebral neuroforamina. C6-7: Normal endplates. Normal disc height and morphology. Normal central canal and intervertebral neuroforamina. C7-T1: Normal endplates. Normal disc height and morphology. Normal central canal and intervertebral neuroforamina. Normal visualized soft tissue structures. CT/Spine Cervical without Contras IMPRESSION: 1. No cervical spine fracture or traumatic subluxation. 2. Straightening of normal cervical lordosis could represent positional artifact or muscular spasm. Electronically Signed: Isaak Lake MD at 10:56 EST , Service support ,
--- NOTE | 2018-10-18 09:40 | CT_ITS ---
STUDY: CT BRAIN WITHOUT CONTRAST REASON FOR EXAM: Male, 57 years old. Fall into a wall from standing position RADIATION DOSAGE (If Supplied By Facility): CTDIvol = ( 44.99 ) mGy, DLP = ( 812.98 ) mGycm TECHNIQUE: Transaxial CT imaging of the brain was performed without administration of intravenous contrast material. Individualized dose optimization techniques were used for this CT. COMPARISON: 01/22/2017 FINDINGS: Normal soft tissue structures. Normal calvarium. There is mild cerebral atrophy with widening of the extra-axial spaces and ventricular dilatation. There are areas of decreased attenuation within the white matter tracts of the supratentorial brain, consistent with microvascular disease changes. Normal basal ganglia and thalami. Normal brainstem. Normal cerebellum. There is no intracranial hemorrhage. There are no findings of an acute ischemic infarction. Normal visualized paranasal sinuses. CT/Brain/Head without Contrast IMPRESSION: 1. No acute intracranial hemorrhage or mass effect. 2. Central parenchymal volume loss. White matter changes that are nonspecific but most commonly associated with chronic small vessel ischemic disease. Electronically Signed: Isaak Lake MD at 10:46 EST , Service support ,
[2018-10-18 10:12] LABS: Absolute Lymphocyte Count 1.05 X10^3/ul (0.83-4.51); Absolute Neutrophil Count 1.9 X10^3/uL (2.0-7.7); Basophil# 0.02 X10^3/uL; Basophil% 0.6 % (0-1); Eosinophil# 0.09 X10^3/uL; Eosinophils% 2.5 % (0-5); Hematocrit 35.8 % (40-54); Hemoglobin 11.6 g/dl (13.0-16.5); Lymphocyte # 1.05 X10^3/ul (4.0); Mean Corp Hgb Conc 32.4 g/gl (32-36); Mean Corpuscular Hgb 29.4 pg (27.0-32.0); Mean Corpuscular Volume 90.9 fL (80-94); Monocyte# 0.57 X10^3/uL; Monocyte% 15.7 % (0-10); Neutrophil # 1.88 X10^3/uL (2.7-7.7); Neutrophil % 51.9 % (47-70); POSITIVE COUNT NO; POSITIVE DIFFERENTIAL NO; POSITIVE MORPHOLOGY NO; Platelet Count 121 K/mm3 (150-450); RBC Distribution Width CV 15.7 % (11.6-14.6); RBC Distribution Width SD 51.5 fl (35.1-43.9); Red Blood Count 3.94 M/mm3 (4.6-6.2); White Blood Count 3.6 K/mm3 (4.4-11.0)
[2018-10-18 10:23] LABS: Anion Gap 6 (5-15); BUN 16 mg/dL (7-18); BUN/Creat Ratio 9.6 RATIO (10-20); Calcium,Total 8.2 mg/dL (8.5-10.1); Chloride 108 mmol/L (98-107); Creatinine, Serum 1.66 mg/dL (0.70-1.30); EST Glomerular Filtration Rate 46 mL/min (>60); Est Glom Filt Rate - Afr Amer 55 mL/min (>60); Estimated Creatinine Clearance 50.69 ml/min; Glucose 112 mg/dL (74-106); Potassium 3.8 mmol/L (3.5-5.1); Sodium Level 142 mmol/L (136-145)
--- NOTE | 2018-10-18 11:18 | ED.VISSUMM ---
- ER Visit Summary Date of Service: 10/18/18 Chief Complaint: Fall History of Present Illness: The patient is a 57 M who presents with a fall that occurred today. Patient states he lost his balance. Patient states he has been losing his balance more frequently. Patient states he fell into a wall and hit his head. Patient is on Coumadin. Patient denies any paresthesias or weakness. Patient admits to some mild neck pain. Patient also complains of redness and swelling to his right leg. Patient is on Bactrim chronically after his liver transplant. Patient denies any fevers or chills. Patient denies any discharge or drainage from the leg. Physical Examination: Vital signs are stable. Patient is afebrile. Patient is in no acute distress. Cranial nerves II through XII are intact. There are no focal motor or sensory deficits noted. There is some mild edema and tenderness over the left frontal area of the scalp. There is no bony crepitance or step-off. Musculoskeletal exam reveals some mild cervical paraspinal tenderness. There is no midline tenderness. There is no bony crepitance. Heart was regular rate and rhythm. Lungs are clear and equal bilateral. Abdomen is soft. Bowel sounds are normal. There is edema, erythema, warmth over the right lower leg. There is no discharge or drainage. There is no calf tenderness. Pedal pulses are equal bilaterally. The remaining physical exam is within normal limits. Test Results: CT scan of the brain and cervical spine were obtained. There is no acute intracranial abnormality or cervical spine fracture. CBC and basic metabolic profile were obtained. Creatinine was 1.66 which is chronic. There are no acute abnormalities noted. Emergency Department Course and Treatment: Cervical collar was removed. Patient had good range of motion of the cervical spine without pain. Patient was given a dose of Ancef here. Patient was given Zofran and Toradol here. Patient was given prescription for Keflex. Patient was instructed to follow-up with his primary care physician in 5-7 days. Patient understood and was agreeable with the plan. All questions were answered. Disposition: Discharge home Impression: 1. Closed head injury 2. Cellulitis right leg This note was generated with [employer] software. It may contain incorrect words, spelling, and punctuation that were not noted in review of the chart prior to signing ED Disposition - Plan for ED Patient: Disposition: Home or Assisted Living Diagnosis: Closed head injury, Cellulitis Instructions: ED Mechanical Fall, ED Infec Skin Cellulitis Prescriptions: Cephalexin [Keflex] 500 mg PO Q6 #40 cap Referrals: Raul Uribe [Primary Care Provider] -
[2018-10-18 11:54] LABS: International Normalized Ratio 2.1; Prothrombin Time (Protime)PT. 23.7 SECONDS (11.7-14.9)
[2018-10-18] MEDS: Ondansetron ODT 4 MG Tablet PO (11:56)
[2018-10-18] MEDS: Ketorolac 15 MG/ML Vial IM (11:56)
== END 2018-10-18 14:16 | disposition home or self-care (01) ==
PROVIDERS: Emergency Provider Emergency Medicine; Family Provider Family Medicine; PCP Family Medicine
DX: S09.90XA Unspecified injury of head, initial encounter (principal); M54.2 Cervicalgia; W01.198A Fall on same level from slipping, tripping and stumbling with subsequent striking against other object, initial encounter; Y93.9 Activity, unspecified; Y92.9 Unspecified place or not applicable; Y99.9 Unspecified external cause status; L03.115 Cellulitis of right lower limb; Z94.4 Liver transplant status; I25.2 Old myocardial infarction; Z79.01 Long term (current) use of anticoagulants; Z79.899 Other long term (current) drug therapy; Z95.5 Presence of coronary angioplasty implant and graft
CPT/HCPCS: 70450; 72125; 80048; 85025; 85610; 96372; 99285; A4216; J2405

== ENCOUNTER 2018-10-23 17:12 | Observation (INO) | payer MEDICARE, SELFPAY ==
[2018-10-23 17:13] VITALS: BP 140/74; PULSE 58; RESP 16; TEMP 36.7; O2SAT 99; BMI 43.0
--- NOTE | 2018-10-23 17:59 | EKG12_ITS ---
Test Reason : EDEMA Blood Pressure : / mmHG Vent. Rate : 056 BPM Atrial Rate : 056 BPM P-R Int : 220 ms QRS Dur : 104 ms QT Int : 472 ms P-R-T Axes : 011 -24 003 degrees QTc Int : 455 ms Sinus bradycardia with 1st degree A-V block Otherwise normal ECG Confirmed by CARLA SHIPMAN, SUGAR ([id number]), editor greeting card FÁTIMA RIVERA ([id number]) on 10/27/2018 5:19:00 PM Referred By: SAV Confirmed By:SUGAR AGUIRRE MD
--- NOTE | 2018-10-23 18:04 | ED.DCSUM_ITS ---
- ER Visit Summary Date of Service: 10/23/18 Chief Complaint: Bilateral lower extremity edema History of Present Illness: The patient is a 57 M with history of liver transplant in July 2017 secondary to [place] and alpha-1 antitrypsin, transient CHF, and coronary artery disease status post 2 stents who presents for 6 weeks of gradually worsening lower extremity edema. Patient is on Coumadin for a blood clot in his liver. He was seen 1 week ago after a fall, and was started on Keflex for concern for possible cellulitis in the right lower extremity. He states there is been no change with the antibiotics, and his legs have progressively gotten more swollen. He noted leakage of fluid last night. He has shortness of breath but denies any worsening with laying flat, paroxysmal nocturnal dyspnea. No chest pain, fever and he does have mild nausea and abdominal discomfort. He states the edema is similar to prior to his liver transplant. He had a cardiac echocardiogram performed 2 weeks ago but does not know the results. Physical Examination: Vital signs: afebrile, hemodynamically stable, no hypoxia on room air General: well nourished, well developed, in no distress, BMI of 43 Skin: warm, dry, erythema with serous blistering on the right anterior jackson otherwise no rash, no pallor HEENT: normocephalic and atraumatic; PERRL, EOMI, moist mucous membranes Cardiovascular: regular rate and rhythm without murmurs, 3+ symmetric peripheral edema up to the knees, 2+ pulses all distal extremities Respiratory: No increased work of breathing, lungs are clear to auscultation bilaterally, no rales, rhonchi or wheezing Abdominal: Abdomen is soft, mildly tender with normoactive bowel sounds, no guarding or rebound, no masses MSK: Moves all extremities, no deformities, normal strength Neuro: Awake and alert, oriented ?4. No facial droop, sensation and motor function intact and symmetric Test Results: Abnormal Lab Results 10/23/18 10/23/18 10/23/18 18:20 18:20 18:20 WBC 4.2 L RBC 4.10 L Hgb 11.6 L Hct 36.3 L MCV 88.5 MCH 28.3 MCHC 32.0 RDW 15.8 H RDW Differential 51.3 H Plt Count 126 L MPV 9.9 Immature Gran % (Auto) 0.000 Neut % (Auto) 39.3 L Lymph % (Auto) 40.5 Stanton % (Auto) 18.1 H Eos % (Auto) 1.9 Baso % (Auto) 0.2 Absolute Neuts (auto) 1.7 L Absolute Lymphs (auto) 1.70 Total Counted Not Reportable PT 24.7 H INR 2.2 Sodium 145 Potassium 4.6 Chloride 106 Carbon Dioxide 32.0 Anion Gap 7 BUN 22 H Creatinine 1.88 H Estim Creat Clear Calc 44.76 Est GFR (MDRD) Af Amer 48 L Est GFR (MDRD) Non-Af 39 L BUN/Creatinine Ratio 11.7 Glucose 93 Calcium 8.0 L Total Bilirubin 0.70 AST 32 ALT 27 Alkaline Phosphatase 167 H Troponin I < 0.015 B-Natriuretic Peptide Total Protein 5.6 L Albumin 2.3 L Globulin 3.3 Albumin/Globulin Ratio 0.7 L 10/23/18 18:20 WBC RBC Hgb Hct MCV MCH MCHC RDW RDW Differential Plt Count MPV Immature Gran % (Auto) Neut % (Auto) Lymph % (Auto) Stanton % (Auto) Eos % (Auto) Baso % (Auto) Absolute Neuts (auto) Absolute Lymphs (auto) Total Counted PT INR Sodium Potassium Chloride Carbon Dioxide Anion Gap BUN Creatinine Estim Creat Clear Calc Est GFR (MDRD) Af Amer Est GFR (MDRD) Non-Af BUN/Creatinine Ratio Glucose Calcium Total Bilirubin AST ALT Alkaline Phosphatase Troponin I B-Natriuretic Peptide 161.3 H Total Protein Albumin Globulin Albumin/Globulin Ratio Clinical Impression(s) from Imaging Studies Chest X-Ray 10/23/18 19:20 IMPRESSION: No acute cardiopulmonary process. Electronically Signed: Ly Yeung MD at 19:36 EST Tel , Service support , Medications Given Ampicillin Sodium/Sulbactam (Sodium 3 gm/ Sodium Chloride) 112 mls @ 150 mls/hr IV X1 ONE Stop: 10/23/18 22:40 Discontinued Medications Furosemide (Lasix) 40 mg IV X1 ONE Stop: 10/23/18 18:01 Last Admin: 10/23/18 19:39 Dose: 40 mg Emergency Department Course and Treatment: Patient presents for worsening lower extremity edema in both legs, and with tender warm erythema, now with blistering, on the right jackson that did not respond to outpatient antibiotics. The erythematous warm area is asymmetric when compared to the left lower extremity, thus cellulitis is still on the differential with concern for outpatient failure. It also may be skin changes related to patient's significant 3+ pitting edema. Patient was given IV Lasix. Workup was performed to evaluate for any possible underlying CHF. EKG showed a sinus rhythm with first-degree AV block and no ischemic changes. Patient's BNP was mildly elevated at 161. Chest x-ray showed no sign of pulmonary edema. Patient's hepatic function was within normal limits and INR was therapeutic at 2.2. Patient does have hypoalbuminemia of 2.3, which is chronic for him. Patient was started on IV Lasix and had good urinary output afterwards. Patient also was started on Unasyn for concern for possible right lower extremity cellulitis that failed outpatient treatment. He will benefit from admission for further management of his worsening lower extremity edema and concern for right lower extremity cellulitis that failed outpatient treatment. Treatment Plan: [] Disposition: [] Impression: Severe bilateral lower extremity edema, right lower extremity cellulitis This note was generated with [employer] dictation software. It may contain incorrect words, spelling, and punctuation that were not noted in review of the chart prior to signing ED Disposition - Plan for ED Patient: Disposition: Acute [facility]
[2018-10-23 18:32] LABS: Absolute Neutrophil Count 1.7 X10^3/uL (2.0-7.7); Basophil# 0.01 X10^3/uL; Basophil% 0.2 % (0-1); Eosinophil# 0.08 X10^3/uL; Eosinophils% 1.9 % (0-5); Hematocrit 36.3 % (40-54); Hemoglobin 11.6 g/dl (13.0-16.5); Lymphocyte % 40.5 % (19-41); Mean Corpuscular Hgb 28.3 pg (27.0-32.0); Mean Corpuscular Volume 88.5 fL (80-94); Mean Platelet Vol. 9.9 fl (6.2-12.0); Monocyte# 0.76 X10^3/uL; Monocyte% 18.1 % (0-10); Neutrophil # 1.65 X10^3/uL (2.7-7.7); Neutrophil % 39.3 % (47-70); POSITIVE COUNT NO; POSITIVE DIFFERENTIAL NO; POSITIVE MORPHOLOGY NO; Platelet Count 126 K/mm3 (150-450); RBC Distribution Width CV 15.8 % (11.6-14.6); RBC Distribution Width SD 51.3 fl (35.1-43.9); White Blood Count 4.2 K/mm3 (4.4-11.0)
[2018-10-23 18:37] LABS: International Normalized Ratio 2.2; Prothrombin Time (Protime)PT. 24.7 SECONDS (11.7-14.9)
[2018-10-23 18:55] LABS: ALB/GLOB Ratio 0.7 RATIO (0.9-2.4); AST(SGOT) 32 U/L (15-37); Alanine Aminotransfer ALT/SGPT 27 U/L (16-61); Albumin, Serum 2.3 g/dL (3.2-5.0); Alkaline Phosphatase 167 U/L (45-117); Anion Gap 7 (5-15); BUN 22 mg/dL (7-18); BUN/Creat Ratio 11.7 RATIO (10-20); Chloride 106 mmol/L (98-107); Creatinine, Serum 1.88 mg/dL (0.70-1.30); EST Glomerular Filtration Rate 39 mL/min (>60); Est Glom Filt Rate - Afr Amer 48 mL/min (>60); Estimated Creatinine Clearance 44.76 ml/min; Globulin 3.3 g/dL (2.2-4.2); Glucose 93 mg/dL (74-106); Potassium 4.6 mmol/L (3.5-5.1); Protein, Total 5.6 g/dL (6.4-8.2); Sodium Level 145 mmol/L (136-145)
[2018-10-23 19:03] LABS: BNP,B-Type NATRIURETIC PEPTIDE 161.3 pg/mL (0-100)
[2018-10-23 19:15] VITALS: BP 123/57; PULSE 55; RESP 13; O2SAT 98
--- NOTE | 2018-10-23 19:20 | RAD_ITS ---
STUDY: X-RAY CHEST REASON FOR EXAM: Male, 57 years old. Bilateral lower extremity edema. TECHNIQUE: PA and lateral views of the chest. COMPARISON: July 24, 2018 FINDINGS: There is no new focal consolidation. Normal size heart. Normal mediastinum and debora. Normal visualized pulmonary arteries. Normal visualized aortic arch and descending thoracic aorta. Normal visualized thoracic spine. Normal visualized ribs, clavicles, and shoulders. There is no demonstrated abnormality of the visualized soft tissue structures of the upper abdomen. RAD/Chest PA and Lateral IMPRESSION: No acute cardiopulmonary process. Electronically Signed: Ly Yeung MD at 19:36 EST Tel , Service support ,
[2018-10-23] MEDS: Furosemide 40 MG/4 ML Vial IV (19:39)
[2018-10-23 21:00] VITALS: BP 109/66; PULSE 55; RESP 16; O2SAT 97
[2018-10-23 22:00] VITALS: BP 126/82; PULSE 58; RESP 14
--- NOTE | 2018-10-23 22:14 | HP.PCM_ITS ---
Problem List (1) Bilateral leg edema Status: Acute (2) Cellulitis Status: Acute Qualifiers: Site of cellulitis: extremity History of Present Illness Date of Admission: 10/23/18 Chief Complaint: bilateral leg edema The patient is a 57 year old M with a significant history of Felipe cirrhosis status post liver transplantation; portal vein thrombosis on Coumadin; CAD status post stents who presented with a 2-month history of progressively worsening bilateral leg edema. Also patient reports bilateral leg pain; seepage from bilateral legs and right leg redness. Associated with his symptoms is occasional shortness of breath. Patient's was evaluated at emergency department on 10/18/2017 and was diagnosed with closed head injury and cellulitis of the right leg. He was prescribed Keflex. The patient reports that while on Keflex his redness of his right leg has rather worsened. Patient is on daily Bactrim because of his history of liver transplant and on immunosuppressive therapy. Patient was on home Lasix 20 mg p.o. every day but about 3 weeks ago his Lasix dose was escalated to 20 mg twice a day. He was evaluated with echocardiogram 2 weeks ago at [facility]. Patient does not know the results of the echocardiogram. He saw his liver doctor about a month ago. His liver profile was appropriate and his bilateral leg swelling was not attributed to his liver. Because of a portal vein thrombosis bilateral lower extremity was done. The bilateral lower extremity Doppler did not show any DVT. Family reported that after patient had an NM in 2015 his bilateral legs has remained swollen off and on. Further, patient has had off and on increase redness of his right leg. At baseline his right leg is somewhat red. Past Medical History Past Medical History (Chronic Problems): Chronic Problems PAF (paroxysmal atrial fibrillation) (Chronic) Ascites (Chronic) FELIPE (nonalcoholic steatohepatitis) (Chronic) Status post liver transplant in July 2017 at [facility] Venous insufficiency (Chronic) Morbid obesity (Chronic) Anemia of chronic disease (Chronic) CAD (coronary artery disease) (Chronic) Chronic renal failure, stage 3 (moderate) (Chronic) Allergies pravastatin [From Pravachol] Allergy (Verified 10/23/18 17:16) Other Pmyhfkv-Wwu-Cpm Reductase Inhibitor Allergy (Verified 10/23/18 17:16) Other zolpidem tartrate [From Ambien] Allergy (Verified 10/23/18 17:16) Hives from the controlled or slow-release ambien. does not have any reactions to r egular ambien. Home Medications: Ambulatory Orders Medication Instructions Recorded Aspirin [Adult Low Dose Aspirin EC] 81 mg PO DAILY 10/21/15 Fluoxetine [Prozac] 40 mg PO DAILY 01/22/17 Amiodarone HCl [Cordarone] 200 mg PO DAILY 08/08/17 Cholecalciferol (Vitamin D3) 5,000 unit PO DAILY 08/08/17 [Vitamin D3] Smz/Tmp Ds [Bactrim Ds] 1 tablet PO DAILY 08/08/17 Metoprolol Tartrate 25 mg PO BID 08/15/17 Acetaminophen 500 mg PO Q6H PRN 11/15/17 Cyclobenzaprine [Flexeril] 10 mg PO TID PRN 11/15/17 Ondansetron [Zofran Odt] 4 mg PO Q8H PRN PRN 11/15/17 Actigall 300 mg PO TID 04/18/18 Everolimus [Zortress] 0.5 mg PO BID 07/24/18 Lactulose [Constulose] 10 gm PO TID 07/24/18 Oxycodone HCl [Roxicodone] 7.5 mg PO Q6H PRN 07/24/18 Tacrolimus Anhydrous [Prograf] 0.5 mg PO DAILY 07/24/18 Warfarin [Coumadin (PBKC)] 2 mg PO DAILY 07/24/18 Cephalexin [Keflex] 500 mg PO Q6 #40 cap 10/18/18 Surgical History: cholecystectomy, - - bilateral hip replacement 12/15, shoulder surg bilaterally, foot surgery, PCI x 1. Liver transplant in July of [address] [facility] Lives: Spouse/ Significant Other Smoking Status: Never smoker Alcohol: None - *Family History Maternal History Items: Diabetes, Heart Disease, Hypertension Paternal History Items: Heart Disease, Hypertension Review of Systems Constitutional: Reports: Chills - Chronic HEENT: Denies: Head Aches, Sinus Congestion, Sinus Drainage Cardiovascular: Reports: Edema. Denies: Chest Pain, Palpitations Respiratory: Reports: Shortness of Breath - Intermittent. Denies: Cough, Sputum production Gastrointestinal: Denies: Abdominal Pain, Nausea, Vomiting Genitourinary: Denies: Dysuria Musculoskeletal: Reports: Leg Pain. Denies: Joint Pain, Joint Tenderness Skin: Denies: Rash, Wounds Neurological: Denies: Numbness, Tingling, Focal weakness Psychiatric: Denies: Anxiety, Depression, Homicidal Ideations, Suicidal Ideati ons Hematologic/ Lymphatic: Denies: Easy Bruising, Easy Bleeding VTE Information - Inpt Only VTE Present on Admission: Yes VTE Mechan Device Prophylaxis: None VTE Pharm Prophylaxis ordered?: No Reason prophylaxis not ordered:: Treatment Not Indicated - Patient is being treated for portal vein thrombosis. Coumadin will be continued Patient Problems: Active and Suspected Problems Bilateral leg edema (Acute) Cellulitis (Acute) - Physical Exam General: Alert, Oriented x3, Cooperative HEENT: Atraumatic, PERRLA, EOMI, Normocephalic Neck: Supple, Trachea Midline Lungs: Clear to auscultation, Normal air movement Cardiovascular: Regular rate, No murmurs Abdomen: Bowel Sounds Present, Soft, Non Tender Extremities: Capillary Refill Less than 3 Seconds, Edema - Bilateral legs Skin: No rashes, No breakdown, - - Erythema of right leg Musculoskeletal: Tenderness - Right leg Neurological: Neuro grossly intact Psych/Mental Status: Depressed Vital Signs Temp Pulse Resp BP Pulse Ox 98.1 F 58 L 16 140/74 H 99 10/23/18 17:13 10/23/18 17:13 10/23/18 17:13 10/23/18 17:13 10/23/18 17:13 Oxygen Delivery Method Room Air Weight: 136.078 kg Body Mass Index (BMI) 43.0 Finger Stick Blood Glucose 124 Laboratory Tests Past 24 Hrs 10/23/18 10/23/18 10/23/18 18:20 18:20 18:20 WBC 4.2 L RBC 4.10 L Hgb 11.6 L Hct 36.3 L MCV 88.5 MCH 28.3 MCHC 32.0 RDW 15.8 H RDW Differential 51.3 H Plt Count 126 L MPV 9.9 Immature Gran % (Auto) 0.000 Neut % (Auto) 39.3 L Lymph % (Auto) 40.5 [place] % (Auto) 18.1 H Eos % (Auto) 1.9 Baso % (Auto) 0.2 Absolute Neuts (auto) 1.7 L Absolute Lymphs (auto) 1.70 Total Counted Not Reportable PT 24.7 H INR 2.2 Sodium 145 Potassium 4.6 Chloride 106 Carbon Dioxide 32.0 Anion Gap 7 BUN 22 H Creatinine 1.88 H Estim Creat Clear Calc 44.76 Est GFR (MDRD) Af Amer 48 L Est GFR (MDRD) Non-Af 39 L BUN/Creatinine Ratio 11.7 Glucose 93 Calcium 8.0 L Total Bilirubin 0.70 AST 32 ALT 27 Alkaline Phosphatase 167 H Troponin I < 0.015 B-Natriuretic Peptide Total Protein 5.6 L Albumin 2.3 L Globulin 3.3 Albumin/Globulin Ratio 0.7 L 10/23/18 18:20 WBC RBC Hgb Hct MCV MCH MCHC RDW RDW Differential Plt Count MPV Immature Gran % (Auto) Neut % (Auto) Lymph % (Auto) [place] % (Auto) Eos % (Auto) Baso % (Auto) Absolute Neuts (auto) Absolute Lymphs (auto) Total Counted PT INR Sodium Potassium Chloride Carbon Dioxide Anion Gap BUN Creatinine Estim Creat Clear Calc Est GFR (MDRD) Af Amer Est GFR (MDRD) Non-Af BUN/Creatinine Ratio Glucose Calcium Total Bilirubin AST ALT Alkaline Phosphatase Troponin I B-Natriuretic Peptide 161.3 H Total Protein Albumin Globulin Albumin/Globulin Ratio Assessment/Plan All Active Problems Bilateral leg edema (Acute) Cellulitis (Acute) Acute kidney injury superimposed on chronic kidney disease (Acute) SVT (supraventricular tachycardia) (Acute) Status post liver transplant (Acute) Hypomagnesemia (Acute) AISSATOU (acute kidney injury) (Resolved) Abdominal pain (Resolved) Cirrhosis (Resolved) Coagulopathy (Resolved) Diastolic CHF (Resolved) Hepatic encephalopathy (Resolved) Hyperammonemia (Resolved) Hypoalbuminemia (Resolved) Hypokalemia (Resolved) Hyponatremia (Resolved) Metabolic alkalosis (Resolved) Thrombocytopenia (Resolved) Tinea cruris (Resolved) The patient is a 57 year old M with a significant history of Felipe cirrhosis status post liver transplantation; portal vein thrombosis on Coumadin; CAD status post stents who presented with a 2-month history of progressively worsening bilateral leg edema; pain and seepage in bilateral legs and with redness of the right leg. Bilateral leg swelling Different diagnosis include heart failure; venous stasis; liver disease or other. On home Lasix 20 mg p.o. twice daily. Received Lasix 40 mg IV at emergency department. We will continue patient on Lasix 40 mg IV twice daily and supplement potassium. Trend BMP. Order to obtain records from [facility]. Consider discussing patient's admission with liver watershed coordinator, Erickson ([phone].). Patient follows up with Dr. Woods optometrist at [place] but because patient could not have appointment with Dr. Woods he came to the ED. Also patient follows up with Dr. Mota; optometrist at [facility]. Cardiac diet with 2 g sodium. Daily weight Strict intake and output Zachary wrap to bilateral lower extremity. Probable cellulitis of his right leg. Patient had no fever. He has chronic chills. His white count is within normal range but of note patient is immunosuppressed from a taking immunosuppressants. He is on Bactrim chronically. His right leg is tender. This could be pure venous stasis. However we will continue patient on Unasyn that was already started at the emergency department. History of liver transplant Continue immunosuppressive therapy with Prograf and everolimus Continue Bactrim Portal vein thrombosis INR therapeutic Continue Coumadin Repeat INR in am. Titrate Coumadin based on INR. Hypertension On admission his blood pressure was within goal. Continue metoprolol Trend blood pressure and adjust blood pressure medication. Depression/anxiety Prozac continued Chronic pain Oxycodone Continued. We will hold off on Tylenol because of history of liver disease; unless indicated.. DVT prophylaxis Not indicated since patient is taking Coumadin for portal vein thrombosis and his INR is therapeutic Code Visit OBSV E&M: 82817 Initial observation care L3
[2018-10-23 23:59] VITALS: BMI 41.8
[2018-10-24] VITALS (14 sets, daily range): BP systolic 107–115; BP diastolic 49–59; PULSE 54–65; RESP 18; TEMP 36.5–36.9; O2SAT 94–98; BMI 41.9
[2018-10-24] MEDS: oxyCODONE 5 MG Tablet PO (00:37)
[2018-10-24 06:01] LABS: International Normalized Ratio 2.4
[2018-10-24 06:05] LABS: Anion Gap 5 (5-15); BUN 21 mg/dL (7-18); BUN/Creat Ratio 12.8 RATIO (10-20); Calcium,Total 7.7 mg/dL (8.5-10.1); Chloride 109 mmol/L (98-107); Creatinine, Serum 1.64 mg/dL (0.70-1.30); EST Glomerular Filtration Rate 46 mL/min (>60); Est Glom Filt Rate - Afr Amer 56 mL/min (>60); Estimated Creatinine Clearance 51.31 ml/min; Glucose 99 mg/dL (74-106); Potassium 3.6 mmol/L (3.5-5.1); Sodium Level 146 mmol/L (136-145)
[2018-10-24] MEDS: Furosemide 40 MG/4 ML Vial IV (08:30)
--- NOTE | 2018-10-24 09:44 | CASEMGMT ---
Patient has a Healthcare POA and Healthcare LW and he is aware they are not on file at [facility]. His [place]ba is his POA. Kaley SWEENEY MSW
[2018-10-24] MEDS: FLUoxetine 20 MG Capsule 40 MG PO (10:27)
[2018-10-24] MEDS: Aspirin E.C. 81 MG Tablet PO (10:27)
[2018-10-24] MEDS: Metoprolol Tartrate 25 MG Tablet PO (10:51)
[2018-10-24] MEDS: Amiodarone 200 MG Tablet PO (10:51)
[2018-10-24] MEDS: oxyCODONE 5 MG Tablet 7.5 MG PO (10:55)
[2018-10-24] MEDS: 0.9% Saline Lock 10 ML Syringe IV (11:00)
--- NOTE | 2018-10-24 15:33 | DCINST_ITS ---
- Discharge Diagnoses Current Active Problems: Current Active and Chronic Problems Bilateral leg edema (Acute) Cellulitis (Acute) You will use the following diet at home:: No restrictions Your food should be the consistency of: Regular Your liquids should be the consistency of: Regular/Thin Discharge Activity: Return to Normal Activity Weight Bearing Status: Full weight bearing Allergies/Adverse Reactions: Allergies pravastatin [From Pravachol] Allergy (Verified 10/23/18 17:16) Other Ramyzuu-Rhl-Xsw Reductase Inhibitor Allergy (Verified 10/23/18 17:16) Other zolpidem tartrate [From Ambien] Allergy (Verified 10/23/18 17:16) Hives from the controlled or slow-release ambien. does not have any reactions to regular ambien. Medications to take at Discharge Aspirin [Adult Low Dose Aspirin EC] 81 mg PO DAILY 10/21/15 Fluoxetine [Prozac] 40 mg PO DAILY 01/22/17 Amiodarone HCl [Cordarone] 200 mg PO DAILY 08/08/17 Cholecalciferol (Vitamin D3) [Vitamin D3] 5,000 unit PO DAILY 08/08/17 Smz/Tmp Ds [Bactrim Ds] 1 tablet PO DAILY 08/08/17 Metoprolol Tartrate 25 mg PO BID 08/15/17 Acetaminophen 500 mg PO Q6H PRN 11/15/17 Cyclobenzaprine [Flexeril] 10 mg PO TID PRN 11/15/17 Ondansetron [Zofran Odt] 4 mg PO Q8H PRN PRN 11/15/17 Actigall 300 mg PO TID 04/18/18 Everolimus [Zortress] 0.5 mg PO BID 07/24/18 Lactulose [Constulose] 10 gm PO TID 07/24/18 Oxycodone HCl [Roxicodone] 7.5 mg PO Q6H PRN 07/24/18 Tacrolimus Anhydrous [Prograf] 0.5 mg PO DAILY 07/24/18 Warfarin [Coumadin] 2 mg PO DAILY 07/24/18 Furosemide [Lasix] 40 mg PO BIDLX #60 tablet 10/24/18 Magnesium Oxide [Mag-Ox 400] 400 mg PO DAILY #1 tablet 10/24/18 Potassium Chloride 20 meq PO DAILY #60 tablet.er 10/24/18 The following prescriptions were given: Furosemide [Lasix] 40 mg PO BIDLX #60 tablet Magnesium Oxide [Mag-Ox 400] 400 mg PO DAILY #1 tablet Potassium Chloride 20 meq PO DAILY #60 tablet.er Primary Care Physician: Raul Uribe [Primary Care Provider] - Please follow up with your Primary Care Physician in: as scheduled Test Results: Test results from this visit will be discussed in further detail at your follow- up appointment, if applicable.
--- NOTE | 2018-10-26 20:28 | DS.PCM_ITS ---
Discharge Date and Diagnosis Date of Admission: 10/23/18 Date of Discharge: 10/24/18 - Primary Discharge Diagnosis #1 anasarca-etiology unclear, possibly secondary to venous insufficiency of the lower extremities with stage III chronic kidney disease #2 stage III chronic kidney disease-etiology unclear #3 chronic portal vein thrombosis #4 status post remote liver transplant secondary to alpha-1 antitrypsin disease and nonalcoholic fatty liver with cirrhosis #5 paroxysmal atrial fibrillation #6 cellulitis was ruled out #7 coronary artery disease - Secondary Discharge Diagnosis Chronic Problems PAF (paroxysmal atrial fibrillation) (Chronic) Ascites (Chronic) FELIPE (nonalcoholic steatohepatitis) (Chronic) Status post liver transplant in July 2017 at [facility] Venous insufficiency (Chronic) Morbid obesity (Chronic) Anemia of chronic disease (Chronic) CAD (coronary artery disease) (Chronic) Chronic renal failure, stage 3 (moderate) (Chronic) Hospital Course and Treatment Operations: None Procedures: 2-D Echocardiogram Summary of Care Provided: The patient is a 57 year old M is seen in the emergency room with complaints of bilateral lower extremity edema. He had complained of gradually worsening lower extremity edema times 6 weeks. Patient had been seen a week ago and had been placed on Keflex for concern for possible cellulitis in his right lower extremity. Workup in the emergency room included chest x-ray which showed no evidence of CHF, beta natruretic peptide was mildly elevated at 161, INR was therapeutic at 2.2. Patient was given IV Lasix in the emergency room and IV Unasyn for concern for possible right lower extremity cellulitis, he was placed and observation status on PCU and the antibiotics and IV Lasix were continued and he underwent a echocardiogram which showed a normal ejection fraction. On 10/24/18, patient was seen and examined: On examination he appeared in good health and spirits. Vital signs as documented. Skin warm and dry and without overt rashes. Neck without JVD. Lungs clear. Heart exam notable for regular rhythm, normal sounds and absence of murmurs, rubs or gallops. Abdomen unremarkable and without evidence of organomegaly, masses, or abdominal aortic enlargement. Extremities-generalized moderate edema was noted over the patient's lower legs, there is no evidence of redness to the lower legs.. Neuro: Cranial nerves II through XII are grossly intact, no focal motor deficits were noted, sensation to light touch and pinprick intact. Psych: Patient is alert and oriented x3, he does not appear anxious or depressed It was felt by this examiner that the patient did not have cellulitis, patient was discharged home in stable condition on 10/24/18. - Physical Exam Vital Signs Temp Pulse Resp BP Pulse Ox 98.0 F 65 18 115/53 L 96 10/24/18 16:10 10/24/18 16:10 10/24/18 16:10 10/24/18 16:10 10/24/18 16:10 Oxygen Delivery Method Room Air Weight: 131.8 kg Body Mass Index (BMI) 41.8 Finger Stick Blood Glucose 124 Intake and Output for Last 24 Hours 10/24/18 10/25/18 10/26/18 23:59 23:59 23:59 Intake Total 898 / 898 Output Total 4020 / 4020 Balance -3122 / -3122 Discharge Activity: Return to Normal Activity Weight Bearing Status: Full weight bearing Home Medications: Medications to take at Discharge Aspirin [Adult Low Dose Aspirin EC] 81 mg PO DAILY 10/21/15 Fluoxetine [Prozac] 40 mg PO DAILY 01/22/17 Amiodarone HCl [Cordarone] 200 mg PO DAILY 08/08/17 Cholecalciferol (Vitamin D3) [Vitamin D3] 5,000 unit PO DAILY 08/08/17 Smz/Tmp Ds [Bactrim Ds] 1 tablet PO DAILY 08/08/17 Metoprolol Tartrate 25 mg PO BID 08/15/17 Acetaminophen 500 mg PO Q6H PRN 11/15/17 Cyclobenzaprine [Flexeril] 10 mg PO TID PRN 11/15/17 Ondansetron [Zofran Odt] 4 mg PO Q8H PRN PRN 11/15/17 Actigall 300 mg PO TID 04/18/18 Everolimus [Zortress] 0.5 mg PO BID 07/24/18 Lactulose [Constulose] 10 gm PO TID 07/24/18 Oxycodone HCl [Roxicodone] 7.5 mg PO Q6H PRN 07/24/18 Tacrolimus Anhydrous [Prograf] 0.5 mg PO DAILY 07/24/18 Warfarin [Coumadin] 2 mg PO DAILY 07/24/18 Furosemide [Lasix] 40 mg PO BIDLX #60 tablet 10/24/18 Magnesium Oxide [Mag-Ox 400] 400 mg PO DAILY #1 tablet 10/24/18 Potassium Chloride 20 meq PO DAILY #60 tablet.er 10/24/18 Following Prescrptions Were Given to Patient: Furosemide [Lasix] 40 mg PO BIDLX #60 tablet Magnesium Oxide [Mag-Ox 400] 400 mg PO DAILY #1 tablet Potassium Chloride 20 meq PO DAILY #60 tablet.er Primary Care Physician: Raul Uribe [Primary Care Provider] - Please follow up with your Primary Care Physician in: as scheduled Please Follow Up With: Raul Uribe Disposition: Home Minutes spent on discharge:: 30 Patient Condition:: Stable Medical Necessity - Tobacco Use Smoking Status: Never smoker Meaningful Use Info Meaningful Use Diagnoses (Choose all that apply): None applicable Code Visit OBSV E&M: 68620 Observation care discharge
== END 2018-10-24 15:33 | disposition home or self-care (01) ==
LOC: ED 21:03 → PCU 23:08
PROVIDERS: Admitting Provider Hospitalist; Emergency Provider Emergency Medicine; Family Provider Family Medicine; PCP Family Medicine; Visit Provider Internal Medicine
DX: R60.1 Generalized edema (principal); I48.0 Paroxysmal atrial fibrillation; I25.10 Atherosclerotic heart disease of native coronary artery without angina pectoris; N18.3 Chronic kidney disease, stage 3 (moderate); I81 Portal vein thrombosis; K75.81 Nonalcoholic steatohepatitis (NASH); E66.01 Morbid (severe) obesity due to excess calories; D63.8 Anemia in other chronic diseases classified elsewhere; Z94.4 Liver transplant status; Z68.41 Body mass index [BMI] 40.0-44.9, adult; Z71.3 Dietary counseling and surveillance; Z79.82 Long term (current) use of aspirin; Z79.899 Other long term (current) drug therapy; Z79.01 Long term (current) use of anticoagulants; I50.9 Heart failure, unspecified; Z95.5 Presence of coronary angioplasty implant and graft; I13.0 Hypertensive heart and chronic kidney disease with heart failure and stage 1 through stage 4 chronic kidney disease, or unspecified chronic kidney disease; G89.29 Other chronic pain; F41.9 Anxiety disorder, unspecified; F32.9 Major depressive disorder, single episode, unspecified
CPT/HCPCS: 36415; 71046; 80048; 80053; 83880; 84484; 85025; 85610; 93005; 96365; 96366; 96375; 96376; 97802; 99218; 99282; J7050; A4216; G0378; J0295; J1940

== ENCOUNTER → 2018-12-09 08:39 | Outpatient (CLI) | payer MEDICARE, SELFPAY ==
--- NOTE | 2018-12-09 08:44 | NM_ITS ---
CLINICAL: 57-year-old male with reported history of painful right hip arthroplasty operated in 2015. LIMITED 99m Tc MDP THREE PHASE BONE SCINTIGRAPHY COMPARISON: None available FINDINGS: Following the intravenous administration of 26.1 mCi of 99m Tc MDP, three-phase bone acquisitions of the pelvis reveal: 1. The flow and immediate static blood pool acquisitions of the pelvis demonstrate symmetric, normal arterial and venous phase distribution of the radiopharmaceutical. 2. Delayed images depict mild increased radiopharmaceutical concentration noted in the distal femoral component of the symptomatic right hip prosthesis. 3. The remaining limited skeletal structures are scintigraphically unremarkable. NM/Bone Scan Three Phase IMPRESSION: 1. The increase in radiopharmaceutical concentration subtly defined in the distal femoral component of the symptomatic right hip prosthesis likely represents mild loosening. If an infectious etiology is a diagnostic consideration, correlation with labeled leukocyte imaging is recommended. 2. No other definitive scintigraphic abnormalities are delineated. Electronically Signed: Solitario Dhaliwal DO at 22:08 EDT Tel , Service support ,
== END ==
LOC: NM 08:40
PROVIDERS: Family Provider Family Medicine; PCP Family Medicine; Referring Provider Specialist; Visit Provider Specialist
DX: T84.84XD Pain due to internal orthopedic prosthetic devices, implants and grafts, subsequent encounter (principal)
CPT/HCPCS: 78315

== ENCOUNTER → 2018-12-15 10:00 | Outpatient (CLI) | payer MEDICARE, SELFPAY ==
[2018-12-15 09:58] LABS: Erythrocyte Sedimentation Rate 12 mm/hr (0-20)
[2018-12-15 10:05] LABS: Absolute Lymphocyte Count 1.49 X10^3/ul (0.83-4.51); Absolute Neutrophil Count 3.1 X10^3/uL (2.0-7.7); Basophil# 0.02 X10^3/uL; Basophil% 0.4 % (0-1); Eosinophil# 0.17 X10^3/uL; Eosinophils% 3.2 % (0-5); Hematocrit 36.5 % (40-54); Hemoglobin 11.9 g/dl (13.0-16.5); Lymphocyte # 1.49 X10^3/ul (4.0); Lymphocyte % 28.4 % (19-41); Mean Corp Hgb Conc 32.6 g/gl (32-36); Mean Corpuscular Hgb 28.9 pg (27.0-32.0); Mean Corpuscular Volume 88.6 fL (80-94); Mean Platelet Vol. 10.1 fl (6.2-12.0); Monocyte# 0.45 X10^3/uL; Monocyte% 8.6 % (0-10); Neutrophil % 59.2 % (47-70); Platelet Count 131 K/mm3 (150-450); RBC Distribution Width CV 15.4 % (11.6-14.6); RBC Distribution Width SD 49.5 fl (35.1-43.9); Red Blood Count 4.12 M/mm3 (4.6-6.2); White Blood Count 5.2 K/mm3 (4.4-11.0)
[2018-12-15 10:07] LABS: POSITIVE COUNT NO; POSITIVE DIFFERENTIAL NO; POSITIVE MORPHOLOGY NO
[2018-12-15 10:23] LABS: CRP < 2.90 mg/L (0.0-3.0)
--- NOTE | 2018-12-28 21:29 | HP.PCM_ITS ---
History and Physical DATE OF SURGERY: 01/21/2019 SCHEDULED PROCEDURE: revision right total hip arthroplasty HISTORY OF PRESENT ILLNESS: This is a 58-year-old male who has been having ongoing right hip pain for over 5 years. Patient had his original right total hip arthroplasty done by Dr. Wiggins in 2013 with a revision done in 2014. Patient reports recurrent dislocations following the first surgery. Patient states after the revision his leg length feels longer on the right. Patient complains of increased pain which is constant, sharp, stabbing. Pain is increased with sitting and walking. He has weakness with going up and down stairs. Patient gets pain located in the right groin and lateral hip that radiates into the thigh and medial knee. Patient has tried previous injections into the lateral hip with pain management, physical therapy. Patient had anterior lateral approach on both previous surgeries. 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 Patient also has had a previous CT scan which did show abductor tears. He has fallen, tripped, stumbled due to the hip pain. Patient is required to use a cane or walker for the past 2 years. Patient reports most of his pain is when he is up walking. Patient has had previous ultrasound study which did reveal torn retracted atrophic abductor tendons. He has also had a bone scan which shows increased activity at the distal stem consistent with loosening. Patient has a medical history pertinent for previous heart stents in [address] Diaz. Patient is also had a liver transplant in 2017. 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 This occurred in May 2018. Patient is currently being followed by the liver team at [facility] Dr. Lamb. Patient denies chest pain, shortness of breath, fevers chills. We are requesting clearance from the liver transplant team as well as the channel development manager. After failing conservative measures and discussing treatment options with Dr. Hao Anderson, the patient does wish to proceed with a revision right total hip arthroplasty. REVIEW OF SYSTEMS: ROS: Const: Reports anxiety and weight change, but denies anorexia, change in appetite, fever and difficulty sleeping. CV: Denies chest pain, heart murmur, irregular heartbeat and peripheral vascular disease. Resp: Denies asthma, cough, pneumonia, sleep apnea, shortness of breath, tuberculosis and wheezing. GI: Denies constipation, diarrhea, heartburn, nausea, rectal itching, bloody stools and vomiting. : Denies incontinence. Musculo: Reports leg swelling, pain and weakness, but denies trouble walking. Skin: Denies Raynaud's, history of shingles and tattoo. Neuro: Denies ambulatory dysfunction, dizziness, numbness/tingling and tremor. Psych: Denies anxiety, depression, insomnia, mental illness and stress. Ascencion/Lymph: Reports bleeding/bruising tendency, but denies anemia and past transfusion. Reviewed and updated. PAST MEDICAL HISTORY: Advance Care Plan: Other Directive, POA Effective Date: 10/02/2018 Other Directive, LIVING WILL Effective Date: 10/02/2018 PMH: Medical Problems: Arthritis Accidents: Sports Related Injury - (1975) RT FOOT FX Surgical Hx: Gallbladder - (2002) SIXES Arthroscopy - (2004) RT SHOULDER RT Foot Repair - (1980) Arthroscopy - (10/31/2007) LEFT SHOULDER & ROTATOR CUFF REPAIR, [facility], DR. ALAS Liver Transplant - (2016) 2 Stents Placed - (2015) RT THR - (08/16/2014) REVISION 10/2014 Hip Replacement LT - (12/15/2014) MUSCRAVE Anesthesia Complications: None Assistive Devices: Glasses - READER, Walker Reviewed and updated. 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 Personal Habits: Cigarette Use: Never.Smokeless Tobacco: Never Used Smokeless Tobacco.E-Cigarette Use: Never used.Alcohol: Occasionally.Drug Use: Denies Use.Enjoy Exercising: Exercises 1-3 x/month. Reviewed and updated. VITALS: Ht: 69 Wt: 327lb 0oz Wt k.327 BMI: 48.3 BP: 126/83 Pulse: 88 Resp: 25 T: 97.9 T: 36.6C ALLERGIES: Ambien CR - Itching & Hives Statins Gabapentin MEDICATIONS: Ferrous Sulfate 325 (65 Fe) MG take 1 tablet by mouth twice a day, Folic Acid 1 mg 1 by mouth every day, Alprazolam 0.5 mg 1po qday, Furosemide 20 mg 1po qday, Prochlorperazine Maleate 5 mg Take 1 tablet by mouth every 6 hours as needed., Sulfamethoxazole-Trimethoprim 400-80 mg 1po qday, Tacrolimus 0.5 mg 1po bid, Natural Vitamin D-3 5000 Unit take 1 tablet by mouth every day, Warfarin Sodium 2 mg 1po qday, Metoprolol Tartrate 50 mg take 1 tablet by mouth twice daily, Magnesium Oxide 400 (241.3 Mg) MG take 1 tablet every day, Fluoxetine HCL 40 mg Take 1 capsule by mouth once daily., Cyclobenzaprine HCL 10 mg take 1 tablet three times daily, Constulose 10 gm/15ml Take 60 mL by mouth three times daily., Repatha Sureclick 140 mg/ml 60ml daily, Ondansetron 4 mg 1po qday, Amiodarone HCL 200 mg Take 1 tablet by mouth once daily., Acetaminophen 500 mg 1-2 every 8 hours, Aspir-81 81 mg 1 by mouth every day PRE-OP EXAM: General appearance:NORMAL Other: Eyes: Conjunctivae and lids: NORMAL Pupils: ERR Ears, Nose, Mouth, and Throat: NORMAL Other: Inspection of lips, teeth and gums: NORMAL Other: Neck: Examination of neck: no masses noted. Respiratory: Assessment of respiratory effort: NORMAL Other: Auscultation of lungs: clear to auscultation no wheezes, rhonchi or rales. Cardiovascular: Auscultation of heart: regular rate and rhythm, positive systolic murmur. Gastrointestinal: Exam of abdomen: soft, nontender, nondistended bowel sounds present. PHYSICAL EXAMINATION: Patient has a Trendelenburg gait. Previous incision is well-healed without erythema or signs of infection. There is tenderness to palpation of the greater trochanter. Right lower extremity is 3-4 mm longer than the left. Right hip flexion 90, internal rotation 30, external rotation 50. Patient has iliopsoas weakness 3/5, and 2/5 abduction strength. Sensation intact to light touch. Neurovascularly intact. IMAGING STUDIES: 1. Previous x-rays were obtained at [facility] [place] which reveals bilateral total hip replacements. Left hip appears well fixed. The right hip does show a lucency over the lateral shoulder of the metaphyseal sleeve however there is no lucency over the medial calcar. The stem is in varus compared to the contralateral side. There is a slight leg length discrepancy based on the lesser trochanters with the right longer than the left. The component is well positioned. 2. Ultrasound of the right hip reveals torn retracted atrophic abductor tendons. 3. Bone scan on December 09, 2018 shows increased activity at the distal stem consistent with loosening IMPRESSION: 1. Painful right total hip revision arthroplasty 2. Liver transplant 2016 3. Coronary artery disease with previous heart stents 2015 4. Blood clot in portal vein May 2018: Currently on Coumadin PLAN: Dr. Hao Anderson did discuss and review with the patient all treatment options including surgical versus nonsurgical options. Patient does wish to proceed with the above-stated procedure. Potential risks, benefits, and complications of the procedure were discussed in detail including but not limited to , infection, nerve and blood vessel damage, persistent pain, numbness, tingling, paresthesias, blood clot, pulmonary embolism, and requirement for possible further surgery. The patient expressed full understanding and has no further questions for the doctor. Patient does agree to proceed with the above-stated procedure and has signed the surgery consent form. Patient is getting surgical clearance from the channel development manager as well as liver transplant team. Patient sees Dr. Diaz as his channel development manager and Dr. Lamb for his liver. This dictation was created using voice recognition software. Phonetic and/or grammatical errors may exist.. ___ I have re-examined the patient. There are no clinical changes since date of exam. ___ See progress notes for changes. ___ Dictated on admission Date: Time: Signature:
== END ==
PROVIDERS: Family Provider Family Medicine; PCP Family Medicine; Referring Provider Specialist; Visit Provider Specialist
DX: Z01.812 Encounter for preprocedural laboratory examination (principal); T84.84XD Pain due to internal orthopedic prosthetic devices, implants and grafts, subsequent encounter; I25.10 Atherosclerotic heart disease of native coronary artery without angina pectoris; F41.9 Anxiety disorder, unspecified; Z94.4 Liver transplant status; Z79.01 Long term (current) use of anticoagulants; Z79.899 Other long term (current) drug therapy; Z86.718 Personal history of other venous thrombosis and embolism; Z95.5 Presence of coronary angioplasty implant and graft; Z96.643 Presence of artificial hip joint, bilateral
CPT/HCPCS: 36415; 85025; 85652; 86140

== ENCOUNTER 2018-12-25 10:12 | Emergency (ER) | payer MEDICARE, SELFPAY ==
[2018-12-25 10:12] VITALS: BP 149/69; PULSE 52; RESP 18; TEMP 36.6; O2SAT 98; BMI 44.9
--- NOTE | 2018-12-25 10:29 | EKG12_ITS ---
Test Reason : EDEMA Blood Pressure : / mmHG Vent. Rate : 052 BPM Atrial Rate : 052 BPM P-R Int : 216 ms QRS Dur : 104 ms QT Int : 480 ms P-R-T Axes : 000 -02 021 degrees QTc Int : 446 ms Sinus bradycardia with 1st degree A-V block Low voltage QRS (Limb Leads) Confirmed by CARLA SHIPMAN, SUGAR ([id number]), features editor JULIO CÉSAR SOLORIO ([id number]) on 12/29/2018 10:57:01 AM Referred By: PHAN Confirmed By:SUGAR AGUIRRE MD
--- NOTE | 2018-12-25 10:31 | RAD_ITS ---
STUDY: X-RAY CHEST REASON FOR EXAM: Male, 57 years old. Lower extremity edema TECHNIQUE: PA and lateral views of the chest. COMPARISON: 10/23/18 FINDINGS: The lungs are clear and expanded. There is no demonstrated pleural abnormality. Normal size heart. Normal mediastinum and debora. Normal visualized pulmonary arteries. Normal visualized aortic arch and descending thoracic aorta. Normal visualized thoracic spine. Normal visualized ribs, clavicles, and shoulders. There is no demonstrated abnormality of the visualized soft tissue structures of the upper abdomen. RAD/Chest PA and Lateral IMPRESSION: Normal x-ray examination of the chest. Electronically Signed: Balaji Zaman MD at 12:01 EDT , Service support ,
--- NOTE | 2018-12-25 10:47 | ED.VIS.GEN ---
History of Present Illness Chief Complaint: Edema Detail of Chief Complaint: 35 pound weight gain, bilateral lymphedema Informant: Patient, Family, Significant Other Onset: Weeks - Onset approximately 3 weeks ago Context: Gradual Onset Timing: Continuous Quality: Edema Location: Dominantly lower extremities Current Severity: Moderate Maximum Severity: Moderate Worsened by: Multiple possibilities Relieved by: Nothing Associated Symptoms: No orthopnea or PND positive PINEDO Narrative: Patient is a middle-age male status post liver recipient 1 year ago who presents with edema of the lower extremity's. He was unaware that he also has swelling of the eyes. He denies orthopnea, PND. Does complain of dyspnea at rest and exertion. He has history of heart disease, congestive heart failure and according to daughter has a low total protein and albumin. 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 Daughter states he is meeting with her pathologist and transplant team to determine if he needs another transplant. He does report generalized weakness and fatigue. He denies fever or chills. He denies chest pain. He denies GI symptoms. He has had recent falls with bruising secondary to anticoagulant. He denied head trauma. Denies headache. Prior similar symptoms: Yes Recent Illness/Hospitalization: No - Past Medical History (1) Anemia of chronic disease Status: Chronic (2) CAD (coronary artery disease) Status: Chronic (3) Chronic renal failure, stage 3 (moderate) Status: Chronic (4) Morbid obesity Status: Chronic (5) PAF (paroxysmal atrial fibrillation) Status: Chronic (6) Status post liver transplant Status: Chronic (7) Venous insufficiency Status: Chronic (8) SVT (supraventricular tachycardia) Status: Resolved Past Medical History - Allergies and Home Meds Allergies/Adverse Reactions: Allergies pravastatin [From Pravachol] Allergy (Verified 12/25/18 10:15) Other Amelgld-Jba-Joa Reductase Inhibitor Allergy (Verified 12/25/18 10:15) Other zolpidem tartrate [From Ambien] Allergy (Verified 12/25/18 10:15) Hives from the controlled or slow-release ambien. does not have any reactions to regular ambien. Primary Care Physician: Raul Uribe [Primary Care Provider] - Prior records reviewed: Yes - Prior labs Surgical History: cholecystectomy, - - bilateral hip replacement 12/15, shoulder surg bilaterally, foot surgery, PCI x 1. Liver transplant in July of 2017 at [facility] Lives: Spouse/ Significant Other Smoking Status: Never smoker Alcohol: None Drugs: None - Family History Maternal Family History: Reports: Diabetes, Heart Disease, Hypertension Paternal Family History: Reports: Heart Disease, Hypertension Review of Systems General: Reports: Malaise, - - Weight gain 35 pounds over past 3 weeks. Denies: Chills, Fever, Subjective, Sweats, Weight loss Eyes: Reports: - - There is evidence of chemosis bilaterally.. Denies: Visual changes - bilaterally, Blurred Vision - bilaterally, Diplopia ENT: Denies: Bilateral ear pain, Rhinorrhea, Sore throat Cardiovascular: Denies: Chest pain, Palpitations Respiratory: Reports: Dyspnea, Dyspnea on exertion. Denies: Cough, Orthopnea, Paroxysmal nocturnal dyspnea Gastrointestinal: Denies: Abdominal pain, Nausea, Vomiting, Diarrhea, Melena, Hematochezia Genitourinary: Denies: Dysuria, Hematuria, Frequency Musculoskeletal: Reports: Swelling - Bilateral lymphedema. Denies: Back pain, Extremity Pain Skin: Reports: Wounds - Bruising noted medial proximal left leg, knee and distal left thigh. Bruising there posterior iliac spine on the left.. Denies: Rash Neurological: Reports: Weakness. Denies: Headache, Parasthesia Hematologic: Reports: Easy bruising. Denies: Easy bleeding Allergy: Denies: Uticaria, Swelling of the mouth, Swelling of the tongue Physical Exam Vital Signs/Narrative: Vital Signs Temp Pulse Resp BP Pulse Ox 12/25/18 10:12 98 F 52 L 18 149/69 H 98 Inital Vital Signs reviewed: Yes General: Well nourished, Well developed, Obese, No Acute Distress Head: Normocephalic, Atraumatic Eyes: Perrl, EOMI, Pale conjunctiva. Negative for: Scleral icterus ENT: Moist mucous membranes, No rhinorrhea, TM's clear Neck: Supple, Nontender, No lymphadenopathy, No JVD Cardiovascular: Regular rhythm, Normal S1, Normal S2, Bradycardia Respiratory: No distress, CTA bilaterally, Chest nontender Abdomen: Soft, Nontender, Nondistended, Normal bowel sounds, No masses, - - There is a well-healed bilateral incision no. Skin: Pallor, Trauma - Multiple areas of bruising secondary to falls. Negative for: Cyanosis, Jaundice Neurological: Alert, Oriented x3, Cranial nerves II-XII grossly intact, Normal Strength, Normal Sensation Psychological: Depressed Diagnostic/Tx/Re-eval Chest X-Ray - ED: 2 View, Normal, Heart, Lungs, Mediastinum, Bony Structures, No Acute Disease Impressions Chest X-Ray 12/25/18 10:31 IMPRESSION: Normal x-ray examination of the chest. Electronically Signed: Balaji Zaman MD at 12:01 EDT , Service support , 12/25/18 10:31 Chest PA and Lateral [RAD] Stat Laboratory Results 12/25/18 12/25/18 12/25/18 11:20 11:20 11:20 WBC 3.4 L RBC 3.53 L Hgb 10.2 L Hct 31.4 L MCV 89.0 MCH 28.9 MCHC 32.5 RDW 15.8 H RDW Differential 50.9 H Plt Count 124 L MPV 9.4 Immature Gran % (Auto) 0.000 Neut % (Auto) 56.9 Lymph % (Auto) 29.4 [place] % (Auto) 9.9 Eos % (Auto) 3.5 Baso % (Auto) 0.3 Absolute Neuts (auto) 2.0 Absolute Lymphs (auto) 1.01 Total Counted Not Reportable PT 22.2 H INR 2.0 Sodium 141 Potassium 3.5 Chloride 106 Carbon Dioxide 30.0 Anion Gap 5 BUN 23 H Creatinine 1.61 H Estim Creat Clear Calc 52.27 Est GFR (MDRD) Af Amer 57 L Est GFR (MDRD) Non-Af 47 L BUN/Creatinine Ratio 14.3 Glucose 143 H Calcium 7.9 L Total Bilirubin 0.60 AST 32 ALT 36 Alkaline Phosphatase 136 H B-Natriuretic Peptide Total Protein 5.3 L Albumin 2.0 L Globulin 3.3 Albumin/Globulin Ratio 0.6 L Urine Color Urine Clarity Urine pH Ur Specific [place] Urine Protein Urine Glucose (UA) Urine Ketones Urine Occult Blood Urine Nitrite Urine Bilirubin Urine Urobilinogen Ur Leukocyte Esterase Urine RBC Urine WBC Ur Squamous Epith Cells Urine Bacteria Urine Mucus Urine Yeast 12/25/18 12/25/18 11:20 11:50 WBC RBC Hgb Hct MCV MCH MCHC RDW RDW Differential Plt Count MPV Immature Gran % (Auto) Neut % (Auto) Lymph % (Auto) [place] % (Auto) Eos % (Auto) Baso % (Auto) Absolute Neuts (auto) Absolute Lymphs (auto) Total Counted PT INR Sodium Potassium Chloride Carbon Dioxide Anion Gap BUN Creatinine Estim Creat Clear Calc Est GFR (MDRD) Af Amer Est GFR (MDRD) Non-Af BUN/Creatinine Ratio Glucose Calcium Total Bilirubin AST ALT Alkaline Phosphatase B-Natriuretic Peptide 330.4 H Total Protein Albumin Globulin Albumin/Globulin Ratio Urine Color Yellow Urine Clarity Sl. Cloudy Urine pH 6.0 Ur Specific [place] 1.010 Urine Protein Negative Urine Glucose (UA) Normal Urine Ketones Negative Urine Occult Blood Negative Urine Nitrite Negative Urine Bilirubin Negative Urine Urobilinogen Normal Ur Leukocyte Esterase Negative Urine RBC 0 SEEN Urine WBC 0 SEEN Ur Squamous Epith Cells 0 SEEN Urine Bacteria RARE Urine Mucus 0 SEEN Urine Yeast RARE - Rhythm Strip Rhythm Strip: Sinus Rhythm Rate: 55 Ectopy: None - EKG Initial EKG Interpretation: Sinus Bradycardia - Ventricular rate is 52. MS interval is prolonged at 260 ms, first-degree AV block, cures duration is prolonged at 104 ms. QT interval is normal. - Medical Decision Making There are possibilities regarding the lymphedema. May be related to the portal vein clot and failing liver, hypoalbuminemia, congestive heart failure and end-stage renal disease. Appropriate work-up was initiated. Suspect secondary to poor nutrition i.e. low total protein and albumin. Last albumin level was 2.72 to 3 weeks ago. Total protein was 5.4. Multiple Patient's albumin is 2.0 which is a significant drop from 3 weeks ago. There is also evidence of delusional anemia with a hemoglobin 10.9. Patient and family was informed that his lymphedema secondary to low albumin. This is probably related to his liver issues. Recommended contacting sawsmith and transplant team at the [facility]. He is scheduled for an appointment January 18. ED Disposition - Plan for ED Patient: Disposition: Home or Assisted Living Diagnosis: Lymphedema, Edema due to hypoalbuminemia, Anemia of chronic disease, Status post liver transplant Instructions: ED Lymphedema Referrals: Raul Uribe [Primary Care Provider] - 3-5 Days
--- NOTE | 2018-12-25 10:51 | ED.DCSUM_ITS ---
History of Present Illness Chief Complaint: Edema Detail of Chief Complaint: 35 pound weight gain, bilateral lymphedema Informant: Patient, Family, Significant Other Onset: Weeks - Onset approximately 3 weeks ago Context: Gradual Onset Timing: Continuous Quality: Edema Location: Dominantly lower extremities Current Severity: Moderate Maximum Severity: Moderate Worsened by: Multiple possibilities Relieved by: Nothing Associated Symptoms: No orthopnea or PND positive PINEDO Narrative: Patient is a middle-age male status post liver recipient 1 year ago who presents with edema of the lower extremity's. He was unaware that he also has swelling of the eyes. He denies orthopnea, PND. Does complain of dyspnea at rest and exertion. He has history of heart disease, congestive heart failure and according to daughter has a low total protein and albumin. 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 Daughter states he is meeting with her pathologist and transplant team to determine if he needs another transplant. He does report generalized weakness and fatigue. He denies fever or chills. He denies chest pain. He denies GI symptoms. He has had recent falls with bruising secondary to anticoagulant. He denied head trauma. Denies headache. Prior similar symptoms: Yes Recent Illness/Hospitalization: No - Past Medical History (1) Anemia of chronic disease Status: Chronic (2) CAD (coronary artery disease) Status: Chronic (3) Chronic renal failure, stage 3 (moderate) Status: Chronic (4) Morbid obesity Status: Chronic (5) PAF (paroxysmal atrial fibrillation) Status: Chronic (6) Status post liver transplant Status: Chronic (7) Venous insufficiency Status: Chronic (8) SVT (supraventricular tachycardia) Status: Resolved Past Medical History - Allergies and Home Meds Allergies/Adverse Reactions: Allergies pravastatin [From Pravachol] Allergy (Verified 12/25/18 10:15) Other Kloxvfz-Hyr-Hod Reductase Inhibitor Allergy (Verified 12/25/18 10:15) Other zolpidem tartrate [From Ambien] Allergy (Verified 12/25/18 10:15) Hives from the controlled or slow-release ambien. does not have any reactions to regular ambien. Primary Care Physician: Raul Uribe [Primary Care Provider] - Prior records reviewed: Yes - Prior labs Surgical History: cholecystectomy, - - bilateral hip replacement 12/15, shoulder surg bilaterally, foot surgery, PCI x 1. Liver transplant in July of 2017 at [facility] Lives: Spouse/ Significant Other Smoking Status: Never smoker Alcohol: None Drugs: None - Family History Maternal Family History: Reports: Diabetes, Heart Disease, Hypertension Paternal Family History: Reports: Heart Disease, Hypertension Review of Systems General: Reports: Malaise, - - Weight gain 35 pounds over past 3 weeks. Denies: Chills, Fever, Subjective, Sweats, Weight loss Eyes: Reports: - - There is evidence of chemosis bilaterally.. Denies: Visual changes - bilaterally, Blurred Vision - bilaterally, Diplopia ENT: Denies: Bilateral ear pain, Rhinorrhea, Sore throat Cardiovascular: Denies: Chest pain, Palpitations Respiratory: Reports: Dyspnea, Dyspnea on exertion. Denies: Cough, Orthopnea, Paroxysmal nocturnal dyspnea Gastrointestinal: Denies: Abdominal pain, Nausea, Vomiting, Diarrhea, Melena, Hematochezia Genitourinary: Denies: Dysuria, Hematuria, Frequency Musculoskeletal: Reports: Swelling - Bilateral lymphedema. Denies: Back pain, Extremity Pain Skin: Reports: Wounds - Bruising noted medial proximal left leg, knee and distal left thigh. Bruising there posterior iliac spine on the left.. Denies: Rash Neurological: Reports: Weakness. Denies: Headache, Parasthesia Hematologic: Reports: Easy bruising. Denies: Easy bleeding Allergy: Denies: Uticaria, Swelling of the mouth, Swelling of the tongue Physical Exam Vital Signs/Narrative: Vital Signs Temp Pulse Resp BP Pulse Ox 12/25/18 10:12 98 F 52 L 18 149/69 H 98 Inital Vital Signs reviewed: Yes General: Well nourished, Well developed, Obese, No Acute Distress Head: Normocephalic, Atraumatic Eyes: Perrl, EOMI, Pale conjunctiva. Negative for: Scleral icterus ENT: Moist mucous membranes, No rhinorrhea, TM's clear Neck: Supple, Nontender, No lymphadenopathy, No JVD Cardiovascular: Regular rhythm, Normal S1, Normal S2, Bradycardia Respiratory: No distress, CTA bilaterally, Chest nontender Abdomen: Soft, Nontender, Nondistended, Normal bowel sounds, No masses, - - There is a well-healed bilateral incision no. Skin: Pallor, Trauma - Multiple areas of bruising secondary to falls. Negative for: Cyanosis, Jaundice Neurological: Alert, Oriented x3, Cranial nerves II-XII grossly intact, Normal Strength, Normal Sensation Psychological: Depressed Diagnostic/Tx/Re-eval Chest X-Ray - ED: 2 View, Normal, Heart, Lungs, Mediastinum, Bony Structures, No Acute Disease Impressions Chest X-Ray 12/25/18 10:31 IMPRESSION: Normal x-ray examination of the chest. Electronically Signed: Balaji Zaman MD at 12:01 EDT , Service support , 12/25/18 10:31 Chest PA and Lateral [RAD] Stat Laboratory Results 12/25/18 12/25/18 12/25/18 11:20 11:20 11:20 WBC 3.4 L RBC 3.53 L Hgb 10.2 L Hct 31.4 L MCV 89.0 MCH 28.9 MCHC 32.5 RDW 15.8 H RDW Differential 50.9 H Plt Count 124 L MPV 9.4 Immature Gran % (Auto) 0.000 Neut % (Auto) 56.9 Lymph % (Auto) 29.4 [place] % (Auto) 9.9 Eos % (Auto) 3.5 Baso % (Auto) 0.3 Absolute Neuts (auto) 2.0 Absolute Lymphs (auto) 1.01 Total Counted Not Reportable PT 22.2 H INR 2.0 Sodium 141 Potassium 3.5 Chloride 106 Carbon Dioxide 30.0 Anion Gap 5 BUN 23 H Creatinine 1.61 H Estim Creat Clear Calc 52.27 Est GFR (MDRD) Af Amer 57 L Est GFR (MDRD) Non-Af 47 L BUN/Creatinine Ratio 14.3 Glucose 143 H Calcium 7.9 L Total Bilirubin 0.60 AST 32 ALT 36 Alkaline Phosphatase 136 H B-Natriuretic Peptide Total Protein 5.3 L Albumin 2.0 L Globulin 3.3 Albumin/Globulin Ratio 0.6 L Urine Color Urine Clarity Urine pH Ur Specific [place] Urine Protein Urine Glucose (UA) Urine Ketones Urine Occult Blood Urine Nitrite Urine Bilirubin Urine Urobilinogen Ur Leukocyte Esterase Urine RBC Urine WBC Ur Squamous Epith Cells Urine Bacteria Urine Mucus Urine Yeast 12/25/18 12/25/18 11:20 11:50 WBC RBC Hgb Hct MCV MCH MCHC RDW RDW Differential Plt Count MPV Immature Gran % (Auto) Neut % (Auto) Lymph % (Auto) [place] % (Auto) Eos % (Auto) Baso % (Auto) Absolute Neuts (auto) Absolute Lymphs (auto) Total Counted PT INR Sodium Potassium Chloride Carbon Dioxide Anion Gap BUN Creatinine Estim Creat Clear Calc Est GFR (MDRD) Af Amer Est GFR (MDRD) Non-Af BUN/Creatinine Ratio Glucose Calcium Total Bilirubin AST ALT Alkaline Phosphatase B-Natriuretic Peptide 330.4 H Total Protein Albumin Globulin Albumin/Globulin Ratio Urine Color Yellow Urine Clarity Sl. Cloudy Urine pH 6.0 Ur Specific [place] 1.010 Urine Protein Negative Urine Glucose (UA) Normal Urine Ketones Negative Urine Occult Blood Negative Urine Nitrite Negative Urine Bilirubin Negative Urine Urobilinogen Normal Ur Leukocyte Esterase Negative Urine RBC 0 SEEN Urine WBC 0 SEEN Ur Squamous Epith Cells 0 SEEN Urine Bacteria RARE Urine Mucus 0 SEEN Urine Yeast RARE - Rhythm Strip Rhythm Strip: Sinus Rhythm Rate: 55 Ectopy: None - EKG Initial EKG Interpretation: Sinus Bradycardia - Ventricular rate is 52. NM interval is prolonged at 260 ms, first-degree AV block, cures duration is prolonged at 104 ms. QT interval is normal. - Medical Decision Making There are possibilities regarding the lymphedema. May be related to the portal vein clot and failing liver, hypoalbuminemia, congestive heart failure and end- stage renal disease. Appropriate work-up was initiated. Suspect secondary to poor nutrition i.e. low total protein and albumin. Last albumin level was 2.72 to 3 weeks ago. Total protein was 5.4. Multiple Patient's albumin is 2.0 which is a significant drop from 3 weeks ago. There is also evidence of delusional anemia with a hemoglobin 10.9. Patient and family was informed that his lymphedema secondary to low albumin. This is probably related to his liver issues. Recommended contacting cellar pumper and transplant team at the [facility]. He is scheduled for an appointment January 18. ED Disposition - Plan for ED Patient: Disposition: Home or Assisted Living Diagnosis: Lymphedema, Edema due to hypoalbuminemia, Anemia of chronic disease, Status post liver transplant Instructions: ED Lymphedema Referrals: Raul Uribe [Primary Care Provider] - 3-5 Days
[2018-12-25 11:17] VITALS: BP 134/51; PULSE 51; RESP 16; O2SAT 100
[2018-12-25 11:31] LABS: Absolute Lymphocyte Count 1.01 X10^3/ul (0.83-4.51); Basophil# 0.01 X10^3/uL; Basophil% 0.3 % (0-1); Eosinophil# 0.12 X10^3/uL; Eosinophils% 3.5 % (0-5); Hematocrit 31.4 % (40-54); Hemoglobin 10.2 g/dl (13.0-16.5); Lymphocyte # 1.01 X10^3/ul (4.0); Lymphocyte % 29.4 % (19-41); Mean Corp Hgb Conc 32.5 g/gl (32-36); Mean Corpuscular Hgb 28.9 pg (27.0-32.0); Mean Platelet Vol. 9.4 fl (6.2-12.0); Monocyte# 0.34 X10^3/uL; Monocyte% 9.9 % (0-10); Neutrophil # 1.96 X10^3/uL (2.7-7.7); Neutrophil % 56.9 % (47-70); Platelet Count 124 K/mm3 (150-450); RBC Distribution Width CV 15.8 % (11.6-14.6); RBC Distribution Width SD 50.9 fl (35.1-43.9); Red Blood Count 3.53 M/mm3 (4.6-6.2); White Blood Count 3.4 K/mm3 (4.4-11.0)
[2018-12-25 11:37] LABS: POSITIVE COUNT NO; POSITIVE DIFFERENTIAL NO; POSITIVE MORPHOLOGY NO
[2018-12-25 11:38] LABS: Prothrombin Time (Protime)PT. 22.2 SECONDS (11.7-14.9)
[2018-12-25 11:47] LABS: ALB/GLOB Ratio 0.6 RATIO (0.9-2.4); AST(SGOT) 32 U/L (15-37); Alanine Aminotransfer ALT/SGPT 36 U/L (16-61); Alkaline Phosphatase 136 U/L (45-117); Anion Gap 5 (5-15); BUN 23 mg/dL (7-18); BUN/Creat Ratio 14.3 RATIO (10-20); Calcium,Total 7.9 mg/dL (8.5-10.1); Chloride 106 mmol/L (98-107); Creatinine, Serum 1.61 mg/dL (0.70-1.30); EST Glomerular Filtration Rate 47 mL/min (>60); Est Glom Filt Rate - Afr Amer 57 mL/min (>60); Estimated Creatinine Clearance 52.27 ml/min; Globulin 3.3 g/dL (2.2-4.2); Glucose 143 mg/dL (74-106); Potassium 3.5 mmol/L (3.5-5.1); Protein, Total 5.3 g/dL (6.4-8.2); Sodium Level 141 mmol/L (136-145)
[2018-12-25 11:58] LABS: Mucous, Urine 0 SEEN /hpf (<or=2+); Squamous Epithelial Cells - UA 0 SEEN /hpf (0-5); White Blood Cells 0 SEEN /hpf (0-5)
[2018-12-25 12:01] LABS: Color, Urine Yellow (Yellow); Glucose, Dipstick Normal (Normal); Ketone-Dipstick Negative (Negative); Leukocyte Esterase-Dipstick Negative /ul (Negative); Nitrite-Dipstick Negative (Negative); Occult Blood-Urine Negative /ul (Negative); Protein-Dipstick Negative (Negative); Urine Bilirubin Dipstick Negative (Negative); Urine Clarity Sl. Cloudy (Clear); Urine Urobilinogen Normal (Normal)
[2018-12-25 12:03] LABS: BNP,B-Type NATRIURETIC PEPTIDE 330.4 pg/mL (0-100)
[2018-12-25 12:16] LABS: Bacteria RARE /hpf (None Seen); Red Blood Cells-Urine 0 SEEN /hpf (0-5); Yeast-Urine RARE /hpf (None Seen)
[2018-12-25 13:06] VITALS: BP 155/72; PULSE 53; RESP 14
== END 2018-12-25 13:06 | disposition home or self-care (01) ==
PROVIDERS: Emergency Provider Emergency Medicine; Family Provider Family Medicine; PCP Family Medicine
DX: I89.0 Lymphedema, not elsewhere classified (principal); E88.09 Other disorders of plasma-protein metabolism, not elsewhere classified; D63.8 Anemia in other chronic diseases classified elsewhere; I81 Portal vein thrombosis; I50.9 Heart failure, unspecified; N18.6 End stage renal disease; I48.0 Paroxysmal atrial fibrillation; I87.2 Venous insufficiency (chronic) (peripheral); I25.10 Atherosclerotic heart disease of native coronary artery without angina pectoris; E66.01 Morbid (severe) obesity due to excess calories; Z94.4 Liver transplant status; Z79.01 Long term (current) use of anticoagulants; Z79.82 Long term (current) use of aspirin; Z79.899 Other long term (current) drug therapy; Z96.643 Presence of artificial hip joint, bilateral
CPT/HCPCS: 71046; 80053; 81001; 83880; 85025; 85610; 93005; 99284

== ENCOUNTER 2019-04-07 11:10 | Observation (INO) | payer MEDICARE, SELFPAY ==
[2019-04-07] VITALS (7 sets, daily range): BP systolic 108–161; BP diastolic 64–77; PULSE 49–54; RESP 13–18; TEMP 36.5–36.8; O2SAT 98–99; BMI 46.3; BMI 46.9
--- NOTE | 2019-04-07 11:19 | CT_ITS ---
STUDY: CT BRAIN WITHOUT CONTRAST REASON FOR EXAM: Male, 58 years old. Frequent falls, headache RADIATION DOSAGE (If Supplied By Facility): CTDIvol = ( 44.99 ) mGy, DLP = ( 815.79 ) mGycm TECHNIQUE: Transaxial CT imaging of the brain was performed without administration of intravenous contrast material. Individualized dose optimization techniques were used for this CT. COMPARISON: 10/18/18 FINDINGS: Normal soft tissue structures. Normal calvarium. Normal size ventricles and extra-axial spaces for the patient's age. Normal white matter tracts of the cerebral hemispheres. Normal basal ganglia and thalami. Normal brainstem. Normal cerebellum. There is no intracranial hemorrhage. There are no findings of an acute ischemic infarction. Normal visualized paranasal sinuses. CT/Brain/Head without Contrast IMPRESSION: Chronic involutional changes of the brain. Electronically Signed: Balaji Zaman MD at 12:20 EDT , Service support ,
[2019-04-07 12:00] LABS: Absolute Lymphocyte Count 1.35 X10^3/uL (0.83-4.51); Absolute Neutrophil Count 2.6 X10^3/uL (2.0-7.7); Basophil# 0.03 X10^3/uL; Basophil% 0.7 % (0-1); Eosinophil# 0.07 X10^3/uL; Eosinophils% 1.6 % (0-5); Hemoglobin 11.4 g/dL (13.0-16.5); Lymphocyte # 1.35 X10^3/ul (4.0); Lymphocyte % 30.3 % (19-41); Mean Corp Hgb Conc 33.5 g/dL (32-36); Mean Corpuscular Hgb 30.6 pg (27.0-32.0); Mean Corpuscular Volume 91.2 fL (80-94); Mean Platelet Vol. 9.7 fl (6.2-12.0); Monocyte# 0.41 X10^3/uL; Monocyte% 9.2 % (0-10); NRBC Flagged by Analyzer 0 % (0-5); Neutrophil # 2.58 X10^3/uL (2.7-7.7); Platelet Count 150 K/mm3 (150-450); RBC Distribution Width CV 13.6 % (11.6-14.6); RBC Distribution Width SD 45.4 fl (35.1-43.9); Red Blood Count 3.73 M/mm3 (4.6-6.2); White Blood Count 4.5 K/mm3 (4.4-11.0)
[2019-04-07 12:07] LABS: International Normalized Ratio 2.5; Prothrombin Time (Protime)PT. 27.4 SECONDS (11.7-14.9)
[2019-04-07 12:08] LABS: Partial Thromboplast Time 46.8 Seconds (24.1-36.2)
[2019-04-07 12:16] LABS: ALB/GLOB Ratio 0.6 RATIO (0.9-2.4); AST(SGOT) 25 U/L (15-37); Alanine Aminotransfer ALT/SGPT 18 U/L (16-61); Albumin, Serum 2.1 g/dL (3.2-5.0); Alkaline Phosphatase 169 U/L (45-117); Anion Gap 4 (5-15); BUN 17 mg/dL (7-18); BUN/Creat Ratio 9.6 RATIO (10-20); Calcium,Total 8.6 mg/dL (8.5-10.1); Chloride 108 mmol/L (98-107); Creatinine, Serum 1.77 mg/dL (0.70-1.30); EST Glomerular Filtration Rate 42 mL/min (>60); Est Glom Filt Rate - Afr Amer 51 mL/min (>60); Estimated Creatinine Clearance 45.49 ml/min; Globulin 3.3 g/dL (2.2-4.2); Glucose 100 mg/dL (74-106); Potassium 4.4 mmol/L (3.5-5.1); Protein, Total 5.4 g/dL (6.4-8.2); Sodium Level 141 mmol/L (136-145)
--- NOTE | 2019-04-07 12:29 | ED.VIS.GEN ---
History of Present Illness Chief Complaint: Fall Informant: Patient, Family Onset: Days - 5 Context: Gradual Onset Timing: Intermittent Quality: Off balance Current Severity: Mild Maximum Severity: Severe Worsened by: Trying to walk Relieved by: Resting Associated Symptoms: Soreness and bruising from injuries. Headaches. Narrative: Patient has been feeling off balance causing multiple falls. This includes his left rib cage in his back, to the point where now he is not able to walk or bear weight using his cane because of pain, in addition to being off balance. He denies any yana vertigo, which she has had in the past. No recent illnesses. He did have a recent skin lesion/cancer cut from his right hand was due to have sutures removed today for that. Denies any shortness of breath or lightheadedness when he is having this off balance issue. Denies any ear symptoms, tinnitus, pain, decreased hearing. No focal vision changes or focal peripheral neurologic symptoms. He has a history of a liver transplant. His newest medication is an extended release oxycodone which he has been taking for several months. He is on Coumadin for a portal vein clot associated with his liver transplant, he also had postoperative atrial fibrillation for which she is also on amiodarone still but has had no A. fib in the past. During his falls, he hit his left chest, right chest, back, and his head. Headaches did not start until after his head injury. - Past Medical History (1) Bilateral leg edema Status: Chronic (2) Anemia of chronic disease Status: Chronic (3) Ascites Status: Chronic (4) CAD (coronary artery disease) Status: Chronic (5) Chronic renal failure, stage 3 (moderate) Status: Chronic (6) Morbid obesity Status: Chronic (7) FELIPE (nonalcoholic steatohepatitis) Status: Chronic Comment: Status post liver transplant in July 2017 at [facility] (8) PAF (paroxysmal atrial fibrillation) Status: Chronic (9) Status post liver transplant Status: Chronic (10) Hypomagnesemia Status: Resolved (11) SVT (supraventricular tachycardia) Status: Resolved Past Medical History - Allergies and Home Meds Allergies/Adverse Reactions: Allergies pravastatin [From Pravachol] Allergy (Verified 04/07/19 11:13) Other Idhxmms-Vde-Kfh Reductase Inhibitor Allergy (Verified 04/07/19 11:13) Other zolpidem tartrate [From Ambien] Allergy (Verified 04/07/19 11:13) Hives from the controlled or slow-release ambien. does not have any reactions to regular ambien. Primary Care Physician: Raul Uribe [Primary Care Provider] - Surgical History: cholecystectomy, - - bilateral hip replacement 12/15, shoulder surg bilaterally, foot surgery, PCI x 1. Liver transplant in July of 2017 at [facility] [place] Smoking Status: Former smoker - Family History Maternal Family History: Reports: Diabetes, Heart Disease, Hypertension Paternal Family History: Reports: Heart Disease, Hypertension Review of Systems General: Denies: Chills, Fever, Sweats Eyes: Denies: Visual changes - bilaterally, Diplopia ENT: Denies: Bilateral ear pain, Rhinorrhea, Sore throat Cardiovascular: Reports: Chest pain. Denies: Palpitations Respiratory: Denies: Dyspnea, Cough, Dyspnea on exertion Gastrointestinal: Denies: Abdominal pain, Nausea, Vomiting, Diarrhea, Melena, Hematochezia Genitourinary: Denies: Dysuria, Hematuria, Frequency Musculoskeletal: Reports: Back pain, Swelling - chronic BLE, as usual. Denies: Extremity Pain Skin: Reports: Wounds - bruising. Denies: Rash Neurological: Reports: Headache. Denies: Weakness, Parasthesia, Numbness Physical Exam Vital Signs/Narrative: Vital Signs Temp Pulse Resp BP Pulse Ox 04/07/19 11:11 97.8 F 52 L 16 136/77 H 98 Inital Vital Signs reviewed: Yes General: Well nourished, Well developed, Obese, No Acute Distress Head: Normocephalic, Atraumatic Eyes: Perrl, EOMI - horiz nystagmus bilat, no rotatory or vertical nystagmus ENT: Moist mucous membranes, No rhinorrhea Neck: Supple, Nontender, No lymphadenopathy Cardiovascular: Regular rate, Regular rhythm, No murmurs Respiratory: No distress, CTA bilaterally - equal BS bilat, Chest nontender, Chest tenderness - left lateral ribcage, no crepitance/SQ emphysema or step off, no flail Abdomen: Soft, Nontender, Nondistended, Normal bowel sounds Back: Nontender - ., - - densely purpuric contusion mid-upper back, only mildly tender to palp. Negative for: CVA tenderness, Spinal tenderness Extremities: Nontender, Edema - 3+ BLE symmetric Skin: Normal color, No rash, Trauma - multple contusion Neurological: Alert, Oriented x3, Cranial nerves II-XII grossly intact, Normal Strength, Normal Sensation, - - abnormal Rhomberg. normal FTN and HTS bilat. Psychological: Normal affect, Normal Mood Diagnostic/Tx/Re-eval Impressions Brain CT 04/07/19 11:19 IMPRESSION: Chronic involutional changes of the brain. Electronically Signed: Balaji Zaman MD at 12:20 EDT , Service support , Ribs w/Chest X-Ray 04/07/19 12:37 IMPRESSION: RIBS: Normal x-ray examination of the ribs. CHEST: Normal x-ray examination of the chest. Electronically Signed: Balaji Zaman MD at 13:04 EDT , Service support , 04/07/19 11:19 Brain/Head without Contrast [CT] Stat 04/07/19 12:37 Ribs Uni Min 3V w/PA Chest [RAD] Stat Laboratory Results 04/07/19 04/07/19 04/07/19 11:50 11:50 11:50 WBC 4.5 RBC 3.73 L Hgb 11.4 L Hct 34.0 L MCV 91.2 MCH 30.6 MCHC 33.5 RDW Std Deviation 45.4 H RDW Coeff of Maciel 13.6 Plt Count 150 MPV 9.7 Immature Gran % (Auto) 0.200 Neut % (Auto) 58.0 Lymph % (Auto) 30.3 [place] % (Auto) 9.2 Eos % (Auto) 1.6 Baso % (Auto) 0.7 Absolute Neuts (auto) 2.6 Absolute Lymphs (auto) 1.35 Nucleated RBC % 0 PT 27.4 H INR 2.5 APTT 46.8 H Sodium 141 Potassium 4.4 Chloride 108 H Carbon Dioxide 29.0 Anion Gap 4 L BUN 17 Creatinine 1.77 H Estim Creat Clear Calc 45.49 Est GFR (MDRD) Af Amer 51 L Est GFR (MDRD) Non-Af 42 L BUN/Creatinine Ratio 9.6 L Glucose 100 Calcium 8.6 Total Bilirubin 1.30 H AST 25 ALT 18 Alkaline Phosphatase 169 H Total Protein 5.4 L Albumin 2.1 L Globulin 3.3 Albumin/Globulin Ratio 0.6 L - Medical Decision Making CT head shows no acute abnormalities, no infarcts or traumatic abnormalities. The rest of his work-up was unremarkable except for chronic renal insufficiency. Concern is that he could have some type of central vertigo. His Romberg was very abnormal although this may be a spinal cord sign as opposed to brain. I discussed with Dr. Bueno on for neurology, he advised getting CT angiography of the head and neck to rule out occlusion and dissection, advising that the risk of these causes of central vertigo outweigh the potential risk of contrast-induced nephropathy. I discussed all this with the family and they are comfortable getting CT angiography. This was performed and showed no acute occlusion or signs of dissection, so the plan is for admission here for further evaluation. ED Disposition - Plan for ED Patient: Disposition: Acute Care [facility] Diagnosis: Vertigo, central, Multiple falls, Contusion of left chest wall, Back contusion Referrals: Raul Uribe [Primary Care Provider] -
--- NOTE | 2019-04-07 12:37 | RAD_ITS ---
STUDY: X-RAY - UNILATERAL RIBS ( LEFT ) WITH CHEST REASON FOR EXAM: Male, 58 years old. Chest pain after a fall TECHNIQUE - RIBS: 4 view(s) of the ribs. TECHNIQUE - CHEST: Single AP portable view of the chest. COMPARISON: None. FINDINGS - RIBS: Normal visualized ribs without a demonstrated fracture. FINDINGS - CHEST: The lungs are clear and expanded. There is no demonstrated pleural abnormality. Normal size heart. Normal mediastinum and debora. Normal visualized pulmonary arteries. Normal visualized aortic arch and descending thoracic aorta. Normal visualized thoracic spine. Normal visualized ribs, clavicles, and shoulders. There is no demonstrated abnormality of the visualized soft tissue structures of the upper abdomen. RAD/Ribs Uni Min 3V w/PA Chest IMPRESSION: RIBS: Normal x-ray examination of the ribs. CHEST: Normal x-ray examination of the chest. Electronically Signed: Balaji aZman MD at 13:04 EDT , Service support ,
--- NOTE | 2019-04-07 15:43 | CT_ITS ---
STUDY: CTA HEAD AND NECK WITH CONTRAST REASON FOR EXAM: Male, 58 years old. Frequent falls, mental status change RADIATION DOSAGE (If Supplied By Facility): CTDIvol = ( 34.19 ) mGy, DLP = ( 1336.93 ) mGycm TECHNIQUE: CT angiography was performed with a multi-detector CT scanner. Data acquisition was obtained from the skull base through the vertex following intravenous administration of 100mL IV Isovue 370. MIP images were reconstructed from the axial data set. Post-processing of the angiographic images was performed, with multiplanar reformation and 3D reconstruction. Individualized dose optimization techniques were used for this CT. COMPARISON: No relevant priors. FINDINGS: Normal bilateral petrous carotid arteries. Normal right cavernous carotid artery with a normal supraclinoid bifurcation. Normal left cavernous carotid artery with a normal supraclinoid bifurcation. Normal right A1 segments of the anterior cerebral artery. Normal left A1 segments of the anterior cerebral artery. Normal intact anterior communicating artery (ACOM). Normal bilateral A2 segments of the anterior cerebral arteries. Normal right M1 and M2 segments of the middle cerebral arteries, with a normal M1 bifurcation. Normal left M1 and M2 segments of the middle cerebral arteries, with a normal M1 bifurcation. Normal right posterior communicating artery (PCOM). Normal left posterior communicating artery (PCOM). Normal bilateral vertebral arteries. Normal basilar artery with a normal basilar bifurcation. The visualized bilateral superior cerebellar (SCA) arteries are normal. Normal bilateral P1, P2 and visualized P3 segments of the posterior cerebral arteries. There is no demonstrated aneurysm of the [place] of [place]. There is no demonstrated abnormality of the visualized brain. AORTIC ARCH: Normal visualized aortic arch. Normal origins of the brachiocephalic, left common carotid, and left subclavian arteries. RIGHT CAROTID ARTERIES: Normal right common carotid artery (CCA). There is mild atherosclerotic plaque formation with minimal narrowing of the right carotid bulb. Normal origin of the right internal carotid (ICA) artery without a hemodynamically significant stenosis. Normal visualized cervical portion of the right internal carotid artery. Normal origin of the right external carotid artery (ECA). LEFT CAROTID ARTERIES: Normal left common carotid artery (CCA). There is mild atherosclerotic plaque formation with minimal narrowing of the left carotid bulb. Normal origin of the left internal carotid (ICA) artery without a hemodynamically significant stenosis. Normal visualized cervical portion of the left internal carotid artery. Normal origin of the left external carotid artery (ECA). VERTEBRAL ARTERIES: There is enhancement within the bilateral vertebral arteries with a small right vertebral artery, and a dominant left vertebral artery. CT/CTA Head AND Neck W/ Contrast IMPRESSION: Normal CTA Head and neck with contrast. Tiny right vertebral artery Electronically Signed: Balaji Zaman MD at 17:22 EDT , Service support ,
[2019-04-07] MEDS: oxyCODONE 5 MG Tablet PO (17:09)
[2019-04-07] MEDS: Ondansetron 4 MG/2 ML Vial IV (17:10)
--- NOTE | 2019-04-07 17:21 | NURSING ---
[address] DYSEQUILIBRIUM, M[place]IT[place] FALLS
--- NOTE | 2019-04-07 17:24 | PCM.HP.STD ---
History of Present Illness Date of Admission: 04/07/19 Chief Complaint: Frequent falls The patient is a 58 year old M with an extensive past medical history as listed. He was admitted through the ED on 04/07/2019 with a complaint of frequent mechanical falls. Patient has had numerous falls over the past 2 days and also had a fall for the end of last month. According to patient and family, his legs just gave way and he falls. He denies any assisted lightheadedness, palpitations or dizziness or blurred vision and denies any ringing in his ears or tinnitus. He denies any headache or weight loss. Review of systems otherwise negative. He does admit to having vertigo in the past. In the ED, vitals were significant for pulse rate of 52. BMP was significant of creatinine of 1.77 and total bilirubin of 1.3. CBC was unremarkable. CT of the brain showed chronic involutional changes only. CT of the head and neck was done and was pending. He has been admitted to be managed for debility due to frequent falls. [] Past Medical History Past Medical History (Chronic Problems): Chronic Problems Bilateral leg edema (Chronic) PAF (paroxysmal atrial fibrillation) (Chronic) Status post liver transplant (Chronic) Ascites (Chronic) FELIPE (nonalcoholic steatohepatitis) (Chronic) Status post liver transplant in July 2017 at [facility] Venous insufficiency (Chronic) Morbid obesity (Chronic) Anemia of chronic disease (Chronic) CAD (coronary artery disease) (Chronic) Chronic renal failure, stage 3 (moderate) (Chronic) Allergies pravastatin [From Pravachol] Allergy (Verified 04/07/19 11:13) Other Fthrdys-Flf-Sgf Reductase Inhibitor Allergy (Verified 04/07/19 11:13) Other zolpidem tartrate [From Ambien] Allergy (Verified 04/07/19 11:13) Hives from the controlled or slow-release ambien. does not have any reactions to regular ambien. Home Medications: Ambulatory Orders Medication Instructions Recorded Aspirin [Adult Low Dose Aspirin EC] 81 mg PO DAILY 10/21/15 Fluoxetine [Prozac] 40 mg PO DAILY 01/22/17 Amiodarone HCl [Cordarone] 200 mg PO DAILY 08/08/17 Smz/Tmp Ds [Bactrim Ds] 1 tablet PO DAILY 08/08/17 Ondansetron [Zofran Odt] 4 mg PO Q8H PRN PRN 11/15/17 cycloBENZAPRine HCl [Flexeril] 10 mg PO TID PRN PRN 11/15/17 Lactulose [Constulose] 10 gm PO TID 07/24/18 Tacrolimus Anhydrous [Prograf] 0.5 mg PO DAILY 07/24/18 Warfarin [Coumadin] 2 mg PO DAILY 07/24/18 Magnesium Oxide [Mag-Ox 400] 400 mg PO DAILY #1 tablet 10/24/18 Ferrous Sulfate 325 mg PO DAILY 12/25/18 Oxycodone Myristate [Xtampza ER] 18 mg PO BID 12/25/18 Ursodiol 300 mg PO TID 12/25/18 Acetaminophen [Tylenol Extra 500 mg PO Q6H PRN PRN 04/07/19 Strength] Cholecalciferol (Vitamin D3) 5,000 unit PO DAILY 04/07/19 [Vitamin D3] Furosemide [Lasix] 20 mg PO DAILY MDD fluid 04/07/19 Metoprolol Tartrate [Lopressor 25 mg PO BID 04/07/19 (beta satish)] Surgical History: cholecystectomy, - - bilateral hip replacement 12/15, shoulder surg bilaterally, foot surgery, PCI x 1. Liver transplant in July of [address] [facility] Psychiatric History: No pertinent psych hx Lives: Spouse/ Significant Other Smoking Status: Former smoker Alcohol: None - *Family History Maternal History Items: Diabetes, Heart Disease, Hypertension Paternal History Items: Heart Disease, Hypertension Review of Systems Constitutional: Denies: Chills, Fever, Malaise, Weakness, Weight Change Eyes: Denies: Blurred vision HEENT: Denies: Head Aches, Sinus Congestion, Sinus Drainage Cardiovascular: Denies: Chest Pain, Palpitations Respiratory: Denies: Cough, Shortness of Breath, Shortness of breath at rest, Sputum production Gastrointestinal: Denies: Abdominal Pain, Nausea, Vomiting Genitourinary: Denies: Dysuria Musculoskeletal: Denies: Joint Pain, Joint Tenderness Skin: Denies: Rash, Wounds Neurological: Denies: Numbness, Tingling, Focal weakness Psychiatric: Denies: Anxiety, Depression, Homicidal Ideations, Suicidal Ideations Hematologic/ Lymphatic: Denies: Easy Bruising, Easy Bleeding VTE Information - Inpt Only VTE Present on Admission: No VTE Pharm Prophylaxis ordered?: Yes Patient Problems: Active and Suspected Problems Vertigo, central (Acute) Multiple falls (Acute) Contusion of left chest wall (Acute) Back contusion (Acute) - Physical Exam General: Alert, Oriented x3, Cooperative, No apparent distress, - - super morbid obesity HEENT: Atraumatic, PERRLA, EOMI, Normocephalic Oral: Moist Mucosa Neck: Supple, No JVD, Negative Carotid Bruits Lungs: Clear to auscultation, Normal air movement, No rhonchi, No wheeze, No rales Cardiovascular: Regular rate, Regular Rhythm, Normal S1, Normal S2, No murmurs Abdomen: Bowel Sounds Present, Soft, Non Tender, Non-Distended, No Hepato-splenomegaly Extremities: No clubbing, No cyanosis, - - 1+ edema of both LEs with blisters Skin: No rashes, No breakdown Musculoskeletal: No Tenderness to Palpation of Joints or Extremities Lymphatic: No Cervical, Supraclavicular, or Inguinal Adenopathy Neurological: Cranial nerves II-XII grossly intact, Neuro grossly intact, Motor Exam 5/5 strength throughout Psych/Mental Status: Normal Affect, Appropriate, Alert and oriented to time, place, person, mood and affect Vital Signs Temp Pulse Resp BP Pulse Ox 97.8 F 52 L 16 136/77 H 98 04/07/19 11:11 04/07/19 11:11 04/07/19 11:11 04/07/19 11:11 04/07/19 11:11 Oxygen Flow Rate (L/min) 95 Oxygen Delivery Method Room Air Weight: 314 lb Body Mass Index (BMI) 46.3 Finger Stick Blood Glucose 124 Laboratory Tests Past 24 Hrs 04/07/19 04/07/19 04/07/19 11:50 11:50 11:50 WBC 4.5 RBC 3.73 L Hgb 11.4 L Hct 34.0 L MCV 91.2 MCH 30.6 MCHC 33.5 RDW Std Deviation 45.4 H RDW Coeff of Maciel 13.6 Plt Count 150 MPV 9.7 Immature Gran % (Auto) 0.200 Neut % (Auto) 58.0 Lymph % (Auto) 30.3 Chambers % (Auto) 9.2 Eos % (Auto) 1.6 Baso % (Auto) 0.7 Absolute Neuts (auto) 2.6 Absolute Lymphs (auto) 1.35 Nucleated RBC % 0 PT 27.4 H INR 2.5 APTT 46.8 H Sodium 141 Potassium 4.4 Chloride 108 H Carbon Dioxide 29.0 Anion Gap 4 L BUN 17 Creatinine 1.77 H Estim Creat Clear Calc 45.49 Est GFR (MDRD) Af Amer 51 L Est GFR (MDRD) Non-Af 42 L BUN/Creatinine Ratio 9.6 L Glucose 100 Calcium 8.6 Total Bilirubin 1.30 H AST 25 ALT 18 Alkaline Phosphatase 169 H Total Protein 5.4 L Albumin 2.1 L Globulin 3.3 Albumin/Globulin Ratio 0.6 L Diagnostic Data Brain CT 04/07/19 11:19 IMPRESSION: Chronic involutional changes of the brain. Electronically Signed: Balaji Zaman MD at 12:20 EDT , Service support , Ribs w/Chest X-Ray 04/07/19 12:37 IMPRESSION: RIBS: Normal x-ray examination of the ribs. CHEST: Normal x-ray examination of the chest. Electronically Signed: Balaji Zaman MD at 13:04 EDT , Service support , Head/Neck CTA 04/07/19 15:43 IMPRESSION: Normal CTA Head and neck with contrast. Tiny right vertebral artery Electronically Signed: Balaji Zaman MD at 17:22 EDT , Service support , Assessment/Plan All Active Problems Vertigo, central (Acute) Multiple falls (Acute) Contusion of left chest wall (Acute) Back contusion (Acute) Cellulitis (Ruled-out) Acute kidney injury superimposed on chronic kidney disease (Resolved) SVT (supraventricular tachycardia) (Resolved) Hypomagnesemia (Resolved) AISSATOU (acute kidney injury) (Resolved) Abdominal pain (Resolved) Cirrhosis (Resolved) Coagulopathy (Resolved) Diastolic CHF (Resolved) Hepatic encephalopathy (Resolved) Hyperammonemia (Resolved) Hypoalbuminemia (Resolved) Hypokalemia (Resolved) Hyponatremia (Resolved) Metabolic alkalosis (Resolved) Thrombocytopenia (Resolved) Tinea cruris (Resolved) 58 y/o male admitted with a complaint of frequent mechanical falls and history of vertigo 1. Debility due to mechanical falls admit to PCU with telemetry CT of the brain shwoed only chronic involutional changes EKG showed bradycardia, and no acute ST changes PT/OT consult CTA of head and neck done and pending will get MRI of brain tomorrow fall precautions 2. CKD 3: Cr is 1.77, which is around his baseline. Will monitor 3. History of FELIPE: stable 4. History of liver transplant with associated portal vein clot: on everolimus and coumadin. 5. Afib: rate controlled. On metoprolol. also on coumadihn 6. bilteral LE edema with stasis dermatitis: chronic. keep LE elevated. 7. Super-morbid obesity: Complicates acute care, expected recovery and prognosis. DVT prophylaxis: on coumadin. INR is therapeutic at 2.5 Code Visit OBSV E&M: 13412 Initial observation care L3
[2019-04-07] MEDS: oxyCODONE CR 15 MG Tablet 30 MG PO (22:38)
[2019-04-07] MEDS: Ursodiol 250 MG Tablet PO (22:40)
[2019-04-07] MEDS: Acetaminophen 500 MG Tablet PO (22:45)
[2019-04-08 03:01] VITALS: PULSE 49
[2019-04-08 04:37] VITALS: BP 112/57; PULSE 51; RESP 10; TEMP 36.6; O2SAT 94
[2019-04-08] MEDS: Acetaminophen 500 MG Tablet PO (04:52)
[2019-04-08] MEDS: Ursodiol 250 MG Tablet PO (05:37)
[2019-04-08 05:54] LABS: Absolute Lymphocyte Count 1.45 X10^3/uL (0.83-4.51); Absolute Neutrophil Count 2.1 X10^3/uL (2.0-7.7); Basophil# 0.03 X10^3/uL; Basophil% 0.7 % (0-1); Eosinophil# 0.08 X10^3/uL; Hematocrit 32.4 % (40-54); Hemoglobin 10.6 g/dL (13.0-16.5); Lymphocyte # 1.45 X10^3/ul (4.0); Lymphocyte % 35.5 % (19-41); Mean Corp Hgb Conc 32.7 g/dL (32-36); Mean Corpuscular Hgb 30.5 pg (27.0-32.0); Mean Corpuscular Volume 93.1 fL (80-94); Mean Platelet Vol. 9.9 fl (6.2-12.0); Monocyte% 9.8 % (0-10); NRBC Flagged by Analyzer 0 % (0-5); Neutrophil % 51.5 % (47-70); Platelet Count 151 K/mm3 (150-450); RBC Distribution Width CV 13.7 % (11.6-14.6); RBC Distribution Width SD 46.5 fl (35.1-43.9); Red Blood Count 3.48 M/mm3 (4.6-6.2); White Blood Count 4.1 K/mm3 (4.4-11.0)
--- NOTE | 2019-04-08 05:55 | MRI_ITS ---
STUDY: MRI BRAIN WITHOUT CONTRAST REASON FOR EXAM: Male, 58 years old. VERTIGO, BALANCE ISSUES, FALLS, HIT LEFT SIDE OF HEAD. TECHNIQUE: Standardized multiplanar fat and water weighted pulse sequences were obtained. COMPARISON: 04/07/2019 FINDINGS: Normal size of the ventricles and extra-axial spaces for the patient's age. There are a limited number of small white matter hyperintensities, distributed throughout the deep white matter tracts of the cerebral hemispheres, consistent with mild chronic white matter ischemic changes. Normal bilateral basal ganglia. Normal thalami. There is no extra-axial fluid accumulation. Normal flow voids within the major intracranial circulation suggesting patency by spin echo criteria. Normal sella turcica, pituitary gland, infundibular stalk, optic chiasm and hypothalamus. Normal tectal plate and pineal gland. Normal midbrain, mandi and medulla. Normal cerebellum. Normal basal cisterns. MRI/Brain without Contrast IMPRESSION: No acute intracranial abnormality Electronically Signed: Larisa Turpin MD at 10:11 EDT Tel , Service support ,
[2019-04-08 06:21] LABS: Anion Gap 4 (5-15); BUN 16 mg/dL (7-18); BUN/Creat Ratio 8.8 RATIO (10-20); Calcium,Total 8.2 mg/dL (8.5-10.1); Chloride 109 mmol/L (98-107); Creatinine, Serum 1.81 mg/dL (0.70-1.30); EST Glomerular Filtration Rate 41 mL/min (>60); Est Glom Filt Rate - Afr Amer 50 mL/min (>60); Estimated Creatinine Clearance 44.49 ml/min; Glucose 114 mg/dL (74-106); Potassium 4.6 mmol/L (3.5-5.1); Sodium Level 142 mmol/L (136-145)
[2019-04-08 07:38] VITALS: PULSE 48
[2019-04-08 08:44] VITALS: BP 97/50; PULSE 50; RESP 18; TEMP 36.9; O2SAT 98
[2019-04-08] MEDS: Ferrous Sulfate 325 MG Tablet PO (08:53)
[2019-04-08] MEDS: Aspirin E.C. 81 MG Tablet PO (08:53)
[2019-04-08] MEDS: Furosemide 20 MG Tablet PO (08:53)
[2019-04-08] MEDS: Magnesium Oxide 400 MG Tablet PO (08:53)
[2019-04-08] MEDS: Smz/Tmp Ds Tablet 1 TABLET PO (08:53)
[2019-04-08] MEDS: FLUoxetine 20 MG Capsule 60 MG PO (08:58)
[2019-04-08] MEDS: oxyCODONE CR 15 MG Tablet 30 MG PO (08:58)
[2019-04-08] MEDS: Amiodarone 200 MG Tablet PO (08:58)
[2019-04-08] MEDS: ALPRAZolam 0.5 MG Tablet PO (09:08)
[2019-04-08 10:49] VITALS: BP 94/42; PULSE 42; RESP 16; TEMP 36.8; O2SAT 99
--- NOTE | 2019-04-08 11:10 | DCINST_ITS ---
- Discharge Diagnoses Current Active Problems: Current Active and Chronic Problems Vertigo, central (Acute) Multiple falls (Acute) Contusion of left chest wall (Acute) Back contusion (Acute) You will use the following diet at home:: Cardiac Your food should be the consistency of: Regular Discharge Activity: May Not Drive Call your doctor if you observe: Fever of 101 or Higher, Coldness, Increased Pain, Inability to have a bowel movement, Shortness of breath, Dizziness, Fainting spells, Swelling in the ankles, Chest pain, Increased palpitations (irregular heartbeat), Calf discomfort Additional Instructions: Follow-up with the [facility], liver transplant clinic. Advised to discuss for Xifaxan 500 mg twice daily to prevent hepatic encephalopathy with electrical test technician Allergies/Adverse Reactions: Allergies pravastatin [From Pravachol] Allergy (Verified 04/07/19 18:01) Hives Wdxgyjm-[id number]-[id number] Reductase Inhibitor Allergy (Verified 04/07/19 18:01) Hives zolpidem tartrate [From Ambien] Allergy (Verified 04/07/19 11:13) Hives from the controlled or slow-release ambien. does not have any reactions to regular ambien. Medications to take at Discharge Aspirin [Adult Low Dose Aspirin EC] 81 mg PO DAILY 10/21/15 Amiodarone HCl [Cordarone] 200 mg PO DAILY 08/08/17 Smz/Tmp Ds [Bactrim Ds] 1 tablet PO DAILY 08/08/17 cycloBENZAPRine HCl [Flexeril] 10 mg PO TID PRN PRN 11/15/17 Tacrolimus Anhydrous [Prograf] 0.5 mg PO BID 07/24/18 Warfarin [Coumadin] 2 mg PO DAILY 07/24/18 Magnesium Oxide [Mag-Ox 400] 400 mg PO DAILY #1 tablet 10/24/18 Ferrous Sulfate 325 mg PO DAILY 12/25/18 ALPRAZolam [Xanax] 0.5 mg PO DAILY PRN 04/07/19 Acetaminophen [Tylenol] 500 mg PO Q6H PRN PRN 04/07/19 Cholecalciferol (Vitamin D3) [Vitamin D3] 5,000 unit PO DAILY 04/07/19 Fluoxetine HCl 60 mg PO DAILY 04/07/19 Furosemide [Lasix] 20 mg PO DAILY MDD fluid 04/07/19 Metoprolol Tartrate [Lopressor (beta satish)] 25 mg PO BID 04/07/19 Oxycodone HCl 5 mg PO DAILY PRN 04/07/19 Oxycodone Myristate [Xtampza ER] 27 mg PO BID 04/07/19 Prochlorperazine Maleate [Compazine] 5 mg PO Q6H PRN 04/07/19 Ursodiol 250 mg PO TID 04/07/19 Lactulose [Constulose] 10 gm PO TID #0 04/08/19 Primary Care Physician: Raul Uribe [Primary Care Provider] - Please follow up with your Primary Care Physician in: in 1-2 week Test Results: Test results from this visit will be discussed in further detail at your follow- up appointment, if applicable.
--- NOTE | 2019-04-08 11:12 | PCM.DC.SUM ---
Discharge Date and Diagnosis Date of Admission: 04/07/19 Date of Discharge: 04/08/19 - Primary Discharge Diagnosis Active and Suspected Problems Vertigo, central (Acute) Multiple falls (Acute) Contusion of left chest wall (Acute) Back contusion (Acute) - Secondary Discharge Diagnosis Chronic Problems Bilateral leg edema (Chronic) PAF (paroxysmal atrial fibrillation) (Chronic) Status post liver transplant (Chronic) Ascites (Chronic) FELIPE (nonalcoholic steatohepatitis) (Chronic) Status post liver transplant in July 2017 at [facility] Venous insufficiency (Chronic) Morbid obesity (Chronic) Anemia of chronic disease (Chronic) CAD (coronary artery disease) (Chronic) Chronic renal failure, stage 3 (moderate) (Chronic) Hospital Course and Treatment Imaging Results: 04/08/19 05:55 MRI Brain [Brain without Contrast] [MRI] AM (NON MEDS) Operations: None Summary of Care Provided: The patient is a 58 year old M multiple comorbidities including liver transplant in August 2017 with portal vein thrombosis and chronic intermittent hepatic encephalopathy was admitted with frequent mechanical fall. 1. Recurrent fall most likely secondary to arthritis, lower extremity mild weakness and hepatic encephalopathy: Patient was being admitted in PCU on telemetry. EKG showed bradycardia with no acute ST-T changes. CT of brain shows only chronic involutional changes. Furthermore, patient had CTA of head and neck which was reported as normal. MRI brain shows no acute intracranial abnormality. Chest x-ray with ribs was reported normal. 2. 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 Patient is on lactulose. Patient's daughter and educated about role of ammonia and does not correlate 1-1 with encephalopathy. Clinical interpretation being more important for degree of encephalopathy. Advised to titrate the dose of lactulose to have 2-3 soft bowel movements and discuss about Xifaxan 550 mg twice daily with her dry wall plasterer. Patient follows [facility] transplant clinic. As per the daughter, they advised him retransplantation, this time he will need both liver and kidney transplant. Patient immunosuppression was continued. On tacrolimus. Also on Bactrim 1 tablet daily. 3. CKD stage III: Patient creatinine running around baseline. Advised to follow with the supervisor brine and adjust the dose of Bactrim. 4. Paroxysmal A. fib, heart rate is running low on metoprolol 25 mg twice daily. Heart rate is running in 40s to 50s. Advised to hold metoprolol and amiodarone if heart rate less than 60 and decrease the dose to 12.5 mg twice daily. On Coumadin INR 2.5 5. Other comorbidities include bilateral lower extremity edema with stasis dermatitis, super morbid obesity: Discharge medication reconciliation done. Discharge follow-up instructions completed. Discharge process discussed with the patient and all questions were answered to patient's satisfaction. Total time spent, exact 35 minutes on discharge meds reconciliation, examination, review of imaging and blood test and discussion with the patient on follow-up instructions. [] Laboratory Results 04/08/19 05:20: WBC 4.1 L, RBC 3.48 L, Hgb 10.6 L, Hct 32.4 L, MCV 93.1, MCH 30.5, MCHC 32.7, RDW Std Deviation 46.5 H, RDW Coeff of Maciel 13.7, Plt Count 151, MPV 9.9, Immature Gran % (Auto) 0.500, Neut % (Auto) 51.5, Lymph % (Auto) 35.5, Person % (Auto) 9.8, Eos % (Auto) 2.0, Baso % (Auto) 0.7, Absolute Neuts (auto) 2.1, Absolute Lymphs (auto) 1.45, Nucleated RBC % 0 04/08/19 05:20: Sodium 142, Potassium 4.6, Chloride 109 H, Carbon Dioxide 29.0, Anion Gap 4 L, BUN 16, Creatinine 1.81 H, Estim Creat Clear Calc 44.49, Est GFR (MDRD) Af Amer 50 L, Est GFR (MDRD) Non-Af 41 L, BUN/Creatinine Ratio 8.8 L, Glucose 114 H, Calcium 8.2 L Clinical Impression(s) from Imaging Studies Brain CT 04/07/19 11:19 IMPRESSION: Chronic involutional changes of the brain. Ribs w/Chest X-Ray 04/07/19 12:37 IMPRESSION: RIBS: Normal x-ray examination of the ribs. CHEST: Normal x-ray examination of the chest. Head/Neck CTA 04/07/19 15:43 IMPRESSION: Normal CTA Head and neck with contrast. Tiny right vertebral artery Brain MRI 04/08/19 05:55 IMPRESSION: No acute intracranial abnormality Subjective: Patient seen and examined. Patient has history of frequent fall mainly on last 2 days. Has history of liver transplant in July 2017 for Felipe related cirrhosis. After that patient developed portal vein thrombosis and then intermittent confusion and encephalopathy most probably hepatic encephalopathy without coma. Seen and examined in the room. Patient is drowsy lethargic and's mildly somnolent but wakes up on verbal command. As per the and daughter this is his baseline and has intermittent lethargic and somnolent from ammonia. Patient denies vertigo. - Physical Exam General: Lethargic HEENT: Atraumatic, PERRLA, EOMI, Normocephalic Neck: Supple, No JVD, Negative Carotid Bruits Lungs: Normal air movement, No rhonchi, No wheeze, No rales, Diminished Cardiovascular: Regular rate, Regular Rhythm, Normal S1, Normal S2, No murmurs Abdomen: Bowel Sounds Present, Soft, Non Tender, Non-Distended Extremities: No clubbing, Edema - Chronic bilateral lower extremity lymphedema with a skin thickening Skin: No rashes, No breakdown Neurological: Cranial nerves II-XII grossly intact, Deep Tendon Reflexes 2+/4 and Symmetrical, Neuro grossly intact, - - Bilateral lower extremity weakness, 4/5 mainly from arthritis Vital Signs Temp Pulse Resp BP Pulse Ox 98.2 F 42 L 16 94/42 L 99 04/08/19 10:49 04/08/19 10:49 04/08/19 10:49 04/08/19 10:49 04/08/19 10:49 Oxygen Flow Rate (L/min) 95 Oxygen Delivery Method Room Air Weight: 317 lb 10.978 oz Body Mass Index (BMI) 46.9 Finger Stick Blood Glucose 124 Intake and Output for Last 24 Hours 04/06/19 04/07/19 04/08/19 23:59 23:59 23:59 Intake Total 175 / 175 425 / 425 Output Total 305 / 305 0 / 0 Balance -130 / -130 425 / 425 Laboratory Tests Past 24 Hrs 04/07/19 04/07/19 04/07/19 11:50 11:50 11:50 WBC 4.5 RBC 3.73 L Hgb 11.4 L Hct 34.0 L MCV 91.2 MCH 30.6 MCHC 33.5 RDW Std Deviation 45.4 H RDW Coeff of Maciel 13.6 Plt Count 150 MPV 9.7 Immature Gran % (Auto) 0.200 Neut % (Auto) 58.0 Lymph % (Auto) 30.3 Person % (Auto) 9.2 Eos % (Auto) 1.6 Baso % (Auto) 0.7 Absolute Neuts (auto) 2.6 Absolute Lymphs (auto) 1.35 Nucleated RBC % 0 PT 27.4 H INR 2.5 APTT 46.8 H Sodium 141 Potassium 4.4 Chloride 108 H Carbon Dioxide 29.0 Anion Gap 4 L BUN 17 Creatinine 1.77 H Estim Creat Clear Calc 45.49 Est GFR (MDRD) Af Amer 51 L Est GFR (MDRD) Non-Af 42 L BUN/Creatinine Ratio 9.6 L Glucose 100 Calcium 8.6 Total Bilirubin 1.30 H AST 25 ALT 18 Alkaline Phosphatase 169 H Total Protein 5.4 L Albumin 2.1 L Globulin 3.3 Albumin/Globulin Ratio 0.6 L 04/08/19 04/08/19 05:20 05:20 WBC 4.1 L RBC 3.48 L Hgb 10.6 L Hct 32.4 L MCV 93.1 MCH 30.5 MCHC 32.7 RDW Std Deviation 46.5 H RDW Coeff of Maciel 13.7 Plt Count 151 MPV 9.9 Immature Gran % (Auto) 0.500 Neut % (Auto) 51.5 Lymph % (Auto) 35.5 Person % (Auto) 9.8 Eos % (Auto) 2.0 Baso % (Auto) 0.7 Absolute Neuts (auto) 2.1 Absolute Lymphs (auto) 1.45 Nucleated RBC % 0 PT INR APTT Sodium 142 Potassium 4.6 Chloride 109 H Carbon Dioxide 29.0 Anion Gap 4 L BUN 16 Creatinine 1.81 H Estim Creat Clear Calc 44.49 Est GFR (MDRD) Af Amer 50 L Est GFR (MDRD) Non-Af 41 L BUN/Creatinine Ratio 8.8 L Glucose 114 H Calcium 8.2 L Total Bilirubin AST ALT Alkaline Phosphatase Total Protein Albumin Globulin Albumin/Globulin Ratio Discharge Activity: May Not Drive Call your doctor if you observe: Fever of 101 or Higher, Coldness, Increased Pain, Inability to have a bowel movement, Shortness of breath, Dizziness, Fainting spells, Swelling in the ankles, Chest pain, Increased palpitations (irregular heartbeat), Calf discomfort Home Medications: Medications to take at Discharge Aspirin [Adult Low Dose Aspirin EC] 81 mg PO DAILY 10/21/15 Amiodarone HCl [Cordarone] 200 mg PO DAILY 08/08/17 Smz/Tmp Ds [Bactrim Ds] 1 tablet PO DAILY 08/08/17 cycloBENZAPRine HCl [Flexeril] 10 mg PO TID PRN PRN 11/15/17 Tacrolimus Anhydrous [Prograf] 0.5 mg PO BID 07/24/18 Warfarin [Coumadin] 2 mg PO DAILY 07/24/18 Magnesium Oxide [Mag-Ox 400] 400 mg PO DAILY #1 tablet 10/24/18 Ferrous Sulfate 325 mg PO DAILY 12/25/18 ALPRAZolam [Xanax] 0.5 mg PO DAILY PRN 04/07/19 Acetaminophen [Tylenol] 500 mg PO Q6H PRN PRN 04/07/19 Cholecalciferol (Vitamin D3) [Vitamin D3] 5,000 unit PO DAILY 04/07/19 Fluoxetine HCl 60 mg PO DAILY 04/07/19 Furosemide [Lasix] 20 mg PO DAILY MDD fluid 04/07/19 Metoprolol Tartrate [Lopressor (beta satish)] 25 mg PO BID 04/07/19 Oxycodone HCl 5 mg PO DAILY PRN 04/07/19 Oxycodone Myristate [Xtampza ER] 27 mg PO BID 04/07/19 Prochlorperazine Maleate [Compazine] 5 mg PO Q6H PRN 04/07/19 Ursodiol 250 mg PO TID 04/07/19 Lactulose [Constulose] 10 gm PO TID #0 04/08/19 Primary Care Physician: Raul Uribe [Primary Care Provider] - Please follow up with your Primary Care Physician in: in 1-2 week Medical Necessity - Tobacco Use Smoking Status: Never smoker Meaningful Use Info Meaningful Use Diagnoses (Choose all that apply): None applicable Code Visit OBSV E&M: 39393 Observation care discharge
== END 2019-04-08 11:12 | disposition home or self-care (01) ==
LOC: ED 16:58 → PCU 17:27
PROVIDERS: Admitting Provider Student in an Organized Health Care Education/Training Program; Emergency Provider Emergency Medicine; Family Provider Family Medicine; PCP Family Medicine; Visit Provider Internal Medicine
DX: R42 Dizziness and giddiness (principal); S20.229A Contusion of unspecified back wall of thorax, initial encounter; S20.212A Contusion of left front wall of thorax, initial encounter; W19.XXXA Unspecified fall, initial encounter; Y93.9 Activity, unspecified; Y92.9 Unspecified place or not applicable; D63.8 Anemia in other chronic diseases classified elsewhere; I25.10 Atherosclerotic heart disease of native coronary artery without angina pectoris; E66.01 Morbid (severe) obesity due to excess calories; N18.3 Chronic kidney disease, stage 3 (moderate); I48.0 Paroxysmal atrial fibrillation; R18.8 Other ascites; K75.81 Nonalcoholic steatohepatitis (NASH); Z94.4 Liver transplant status; Z79.899 Other long term (current) drug therapy; Z79.82 Long term (current) use of aspirin; Z68.42 Body mass index [BMI] 45.0-49.9, adult; Z71.3 Dietary counseling and surveillance; Z79.01 Long term (current) use of anticoagulants; Z87.891 Personal history of nicotine dependence
CPT/HCPCS: 36415; 70450; 70496; 70498; 70551; 71101; 80048; 80053; 85025; 85610; 85730; 96374; 99218; 99283; J7040; Q9967; A4216; G0378; J2405

== ENCOUNTER → 2019-04-29 12:14 | Outpatient (CLI) | payer MEDICARE, SELFPAY ==
[2019-04-07 17:57] VITALS: BMI 46.9
[2019-04-29 14:08] LABS: Amphetamine Urine VISTA NEGATIVE (<1000 ng/mL); Barbiturate Urine VISTA NEGATIVE (< 200 ng/mL); Benzodiazepine Urine VISTA POSITIVE (< 200 ng/mL); Cocaine Urine VISTA NEGATIVE (< 300 ng/mL); Ecstacy Urine VISTA NEGATIVE (< 500 ng/mL); Methadone Urine VISTA NEGATIVE (< 300 ng/mL); PCP Urine VISTA NEGATIVE (< 25 ng/mL); THC Urine VISTA NEGATIVE (< 50 ng/mL); Vista UDS pH Range 5
== END ==
PROVIDERS: Family Provider Family Medicine; PCP Family Medicine; Referring Provider Anesthesiology Pain Medicine; Visit Provider Anesthesiology Pain Medicine
DX: F11.20 Opioid dependence, uncomplicated (principal)
CPT/HCPCS: 80307

== ENCOUNTER 2019-05-01 10:03 | Emergency (ER) | payer MEDICARE, SELFPAY ==
[2019-04-07 17:57] VITALS: BMI 46.9
[2019-05-01 10:04] VITALS: BP 147/80; PULSE 73; RESP 16; TEMP 36.2; O2SAT 98; BMI 46.3
--- NOTE | 2019-05-01 10:21 | RAD_ITS ---
STUDY: X-RAY - LEFT RADIUS AND ULNA REASON FOR EXAM: Male, 58 years old. Soft tissue swelling along the wall. TECHNIQUE: 2 view(s) of the forearm. COMPARISON: None. FINDINGS: Soft tissue swelling along the posterior aspect of the mid forearm. Normal visualized radius. Normal visualized ulna. RAD/Forearm 2 Views IMPRESSION: Soft tissue swelling as described. No fracture is seen. Electronically Signed: Pelon Graham, at 10:57 EDT , Service support ,
--- NOTE | 2019-05-01 10:42 | ED.VISSUMM ---
- ER Visit Summary Date of Service: 05/01/19 Chief Complaint: Left forearm contusion History of Present Illness: The patient is a 58 M who fell out of his chair last night causing contusion to the left forearm. Notes today is very swollen there is an area of hardness in the middle of the contusion that he is concerned about. He is on the liver transplant list. He is on Coumadin due to portal vein thrombosis. His last INR on Saturday was 4. Physical Examination: Afebrile vital signs are stable Gen: Well-nourished well-developed Head: Normocephalic atraumatic Eyes: Perrl EOMI ENT: TMs clear no rhinorrhea moist mucous membranes Neck: Supple no lymphadenopathy no JVD nontender CVS: Regular rate rhythm no murmurs normal S1-S2 Respiratory: No distress clear to auscultation bilaterally chest nontender Abdomen: Soft nontender nondistended normal bowel sounds no masses Back: Nontender Extremity: Nontender no edema Skin: Normal color patient has various contusions different colors representing the standard timelines. There is a large dark purple ecchymotic area on the posterior medial left forearm. Neuro: alert orientated ?3 CN II-XII intact normal strength sensation Psych: Normal affect normal mood Test Results: X-rays of the forearm were negative for fracture. INR returns at 4.2. Emergency Department Course and Treatment: Patient was advised of his INR and his x-ray findings. I advised him he needs to hold his INR and contact his doctors that manage his Coumadin today. He will need follow-up for that. Impression: 1. Left forearm hematoma 2. Supratherapeutic INR This note was generated with [employer] dictation software. It may contain incorrect words, spelling, and punctuation that were not noted in review of the chart prior to signing ED Disposition - Plan for ED Patient: Disposition: Home or Assisted Living Instructions: Hematoma Referrals: Raul Uribe [Primary Care Provider] - As Needed Additional Instructions: You need to contact the physician office that manages your Coumadin and inform them that your INR today is 4.2. You need to hold your Coumadin tonight at minimum.
[2019-05-01 10:46] LABS: Prothrombin Time (Protime)PT. 40.7 SECONDS (11.7-14.9)
[2019-05-01 10:49] LABS: International Normalized Ratio 4.2
--- NOTE | 2019-05-01 10:53 | ED.RN ---
inr 4.[address] garcia aware
== END 2019-05-01 11:50 | disposition home or self-care (01) ==
PROVIDERS: Emergency Provider Emergency Medicine; Family Provider Family Medicine; PCP Family Medicine
DX: S50.12XA Contusion of left forearm, initial encounter (principal); W07.XXXA Fall from chair, initial encounter; Y93.9 Activity, unspecified; Y92.9 Unspecified place or not applicable; Y99.9 Unspecified external cause status; R79.1 Abnormal coagulation profile; I81 Portal vein thrombosis; I48.0 Paroxysmal atrial fibrillation; K75.81 Nonalcoholic steatohepatitis (NASH); I25.10 Atherosclerotic heart disease of native coronary artery without angina pectoris; Z76.82 Awaiting organ transplant status; Z79.01 Long term (current) use of anticoagulants; Z79.82 Long term (current) use of aspirin; Z79.891 Long term (current) use of opiate analgesic; Z79.899 Other long term (current) drug therapy
CPT/HCPCS: 73090; 85610; 99282

== ENCOUNTER 2019-05-14 16:45 | Emergency (ER) | payer MEDICARE, SELFPAY ==
[2019-05-14 16:46] VITALS: BP 144/96; PULSE 54; RESP 18; TEMP 36.5; O2SAT 97; BMI 46.0
--- NOTE | 2019-05-14 17:00 | RAD_ITS ---
STUDY: X-RAY CHEST REASON FOR EXAM: Male, 58 years old. Trauma TECHNIQUE: PA and lateral COMPARISON: None. FINDINGS: There is mild interstitial thickening. There is no focal infiltrate.. There is no demonstrated pleural abnormality. Normal size heart. Normal mediastinum and debora. Normal visualized pulmonary arteries. Normal visualized aortic arch and descending thoracic aorta. Dorsal spine demonstrates scoliosis and degenerative change.. Normal visualized clavicles,. There is an impacted fracture of the left humeral neck with overlapping of fracture fragments There are are 2 healed fractures on the left with callus deposition There is no demonstrated abnormality of the visualized soft tissue structures of the upper abdomen. RAD/Chest PA and Lateral IMPRESSION: Acute impacted left humeral neck fracture Old healed left rib fractures Electronically Signed: Alexander Patel MD at 18:11 EDT , Service support ,
--- NOTE | 2019-05-14 17:02 | RAD_ITS ---
STUDY: X-RAY - LEFT SHOULDER REASON FOR EXAM: Male, 58 years old. Trauma TECHNIQUE: 2 view(s) of the shoulder. COMPARISON: None. FINDINGS: Normal glenohumeral articulation. Normal acromioclavicular joint. Normal acromion. Acute impacted left humeral neck fracture with overlapping and medial displacement of the distal fracture fragment.. Diffuse soft tissue swelling is noted Normal visualized pulmonary apex. RAD/Shoulder min 2 Views IMPRESSION: Acute mildly displaced fracture of the left humeral neck and head Electronically Signed: Alexander Patel MD at 18:12 EDT , Service support ,
--- NOTE | 2019-05-14 17:03 | ED.DCSUM_ITS ---
History of Present Illness Chief Complaint: Fall Informant: Patient Onset: Today Mechanism/Context: Fall - He lost his balance. He has had frequent falls. Quality of Pain: Aching Current Severity: Moderate Maximum Severity: Severe Worsened by: Any movement Relieved by: Nothing Associated Symptoms: Loss of consciousness - Since states she was dazed, -. 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 INR last week was less than 2. He has had frequent falls past week. He did hit his head and there is obvious trauma to left side of the head and face. He states he was dazed. He denies any visual, ocular auditory sense. Denies neck pain. Eyes paresthesia anesthesia motors. He does report pain left shoulder. He will not move the left upper extremity. He denied chest pain or shortness of breath. No abdominal pain or low back pain. He does have bruises and abrasions right and left upper extremity predominantly forearm. He denies any lower extremity pain. He has abrasions noted. Tetanus Immunization: <5 years Prior similar symptoms: No Recent Illness/Hospitalization: No - Past Medical History (1) Multiple falls Status: Acute (2) Vertigo, central Status: Acute (3) Anemia of chronic disease Status: Chronic (4) Bilateral leg edema Status: Chronic (5) CAD (coronary artery disease) Status: Chronic (6) Morbid obesity Status: Chronic (7) FELIPE (nonalcoholic steatohepatitis) Status: Chronic Comment: Status post liver transplant in July 2017 at [facility] (8) PAF (paroxysmal atrial fibrillation) Status: Chronic (9) Status post liver transplant Status: Chronic (10) Venous insufficiency Status: Chronic Past Medical History - Allergies and Home Meds Allergies/Adverse Reactions: Allergies pravastatin [From Pravachol] Allergy (Verified 05/01/19 10:04) Hives Asuoblc-Vyn-Ziu Reductase Inhibitor Allergy (Verified 05/01/19 10:04) Hives zolpidem tartrate [From Ambien] Allergy (Verified 05/01/19 10:04) Hives from the controlled or slow-release ambien. does not have any reactions to regular ambien. Primary Care Physician: Hao Anderson MD [STAFF PHYSICIAN] - 1 Week Raul Uribe [Primary Care Provider] - Prior records reviewed: Yes - Hepatic vein thrombus Surgical History: cholecystectomy, - - bilateral hip replacement 12/15, shoulder surg bilaterally, foot surgery, PCI x 1. Liver transplant in July of 2017 at [facility] main campus Lives: Spouse/ Significant Other Smoking Status: Never smoker Alcohol: None Drugs: None - Family History Maternal Family History: Reports: Diabetes, Heart Disease, Hypertension Paternal Family History: Reports: Heart Disease, Hypertension Review of Systems General: Denies: Chills, Fever, Malaise, Sweats Eyes: Denies: Visual changes - bilaterally, Blurred Vision - bilaterally, Diplopia ENT: Denies: Bilateral ear pain, Rhinorrhea, Sore throat Cardiovascular: Denies: Chest pain, Palpitations Respiratory: Denies: Dyspnea, Cough, Sputum, Dyspnea on exertion Gastrointestinal: Denies: Abdominal pain, Nausea, Vomiting, Melena, Hematochezia Genitourinary: Denies: Dysuria, Hematuria, Frequency Musculoskeletal: Reports: Extremity Pain - Left shoulder. Denies: Myalgias, Arthralgias, Neck pain, Back pain, Swelling Skin: Reports: Abrasions, Wounds. Denies: Rash, Abscess Neurological: Reports: Headache - 3 weeks ago, Parasthesia Psych: Reports: Depression Hematologic: Denies: Easy bruising, Easy bleeding Allergy: Denies: Uticaria, Swelling of the mouth Physical Exam Vital Signs/Narrative: Vital Signs Temp Pulse Resp BP Pulse Ox 05/14/19 16:46 97.7 F L 54 L 18 144/96 H 97 Inital Vital Signs reviewed: Yes General: Well nourished, Well developed, Obese Head: Normocephalic, Trauma, Tenderness - There is no palpable depression to suggest depressed skull fracture. There is no clinical signs of basilar skull fracture. Eyes: Perrl, EOMI, - - No subconjunctival hemorrhage noted.. Negative for: Pale conjunctiva, Scleral icterus ENT: TM's clear, No hemotympanum or drainage, No trauma. Negative for: Hemotympanum, Otorrhea, Nasal trauma, Nasal septal hematoma Neck: Nontender, Full ROM. Negative for: Spinal Tenderness, Paraspinal Tenderness Cardiovascular: Regular rate, No murmurs, Irregular Respiratory: No distress, CTA bilaterally, Chest tenderness - Anterior upper left chest wall Abdomen: Soft, Nontender, Nondistended, Normal bowel sounds, - - There is no pain palpation of the pelvis. Back: Nontender. Negative for: CVA Tenderness - Right, CVA Tenderness - Left, Spinal Tenderness, Paraspinal Tenderness Skin: Normal color, Trauma - Multiple contusions and abrasions. Negative for: Cyanosis, Diaphoresis, Jaundice, No Trauma Neurological: Alert, Oriented x3, Cranial nerves II-XII grossly intact, Normal Strength, Normal Sensation, Normal DTR - There is no clonus or Babinski sign.. Negative for: Normal Gait Psychological: Depressed - Glascow Coma Scale Eye Opening: Spontaneous Motor: Obeys Commands Verbal: Oriented Coma Scale Total: 15 Diagnostic/Tx/Re-eval Chest X-Ray - ED: Read by ED Physician, - - 2 view chest x-ray was obtained. There is no evidence of effusion, pneumothorax, or obvious fractured ribs. Cardiac silhouette is slightly prominent. There is no evidence of sternal fracture. There is chronic changes noted of the dorsal vertebral bodies. 2 view view of the left shoulder was obtained. There is a minimally displaced proximal humeral fracture at the surgical neck. There is no fracture noted of the clavicle. CT of the head was reviewed by me and there is no evidence of pneumocranium, intracranial bleed or fracture. Awaiting formal read by ra diologist. Time of my note 2535 CT/Brain/Head without Contrast IMPRESSION: Mild periventricular white matter ischemic change. No evidence for acute intracranial bleed. Electronically Signed: Alexander Patel MD at 17:54 EDT , Service support , Impressions Chest X-Ray 05/14/19 17:00 IMPRESSION: Acute impacted left humeral neck fracture Old healed left rib fractures Electronically Signed: Alexander Patel MD at 18:11 EDT , Service support , Shoulder X-Ray 05/14/19 17:02 IMPRESSION: Acute mildly displaced fracture of the left humeral neck and head Electronically Signed: Alexander Patel MD at 18:12 EDT , Service support , Brain CT 05/14/19 17:36 IMPRESSION: Mild periventricular white matter ischemic change. No evidence for acute intracranial bleed. Electronically Signed: Alexander Patel MD at 17:54 EDT , Service support , 05/14/19 17:00 Chest PA and Lateral [RAD] Stat 05/14/19 17:02 Shoulder min 2 Views [RAD] Stat 05/14/19 17:36 Brain/Head without Contrast [CT] Stat Laboratory Results 05/14/19 05/14/19 05/14/19 17:55 17:55 17:55 WBC 9.5 RBC 3.72 L Hgb 11.5 L Hct 34.6 L MCV 93.0 MCH 30.9 MCHC 33.2 RDW Std Deviation 48.6 H RDW Coeff of Maciel 14.3 Plt Count 176 MPV 9.8 Immature Gran % (Auto) 0.600 Neut % (Auto) 57.1 Lymph % (Auto) 32.7 Levy % (Auto) 7.4 Eos % (Auto) 1.8 Baso % (Auto) 0.4 Absolute Neuts (auto) 5.4 Absolute Lymphs (auto) 3.09 Nucleated RBC % 0 PT 25.1 H INR 2.3 Sodium 139 Potassium 3.5 Chloride 106 Carbon Dioxide 29.0 Anion Gap 4 L BUN 13 Creatinine 1.97 H Estim Creat Clear Calc 40.87 Est GFR (MDRD) Af Amer 45 L Est GFR (MDRD) Non-Af 37 L BUN/Creatinine Ratio 6.6 L Glucose 110 H Calcium 8.7 INR is 2.3. Since INR is less than 3 CAT scan is normal he is a candidate for discharge to home. Creatinine is elevated 1.97. GFR is 37. H&H 7.5 and 34.6. This does not indicate acute blood loss especially since BUN to creatinine ratio is 6.6-1. - Rhythm Strip Rhythm Strip: Sinus Rhythm Rate: 60 Ectopy: None - Medical Decision Making With obvious head and facial trauma and the fact the patient on Coumadin CT of the head was obtained. Clinically suspect proximal humeral fracture on the left. X-ray was obtained to confirm. Because he has anterior left chest pain to palpation x-ray was obtained to evaluate for rib fractures. PT/INR was obtained since this will affect his disposition. He appears pale and reason CBC was obtained to assess H&H. Was medicated with morphine and Zofran for his pain. Because of frequent falls this week case management was contacted regarding home health, aids etc. The fracture was treated with a sling and swath and he was referred to Dr. Bobby Adames. Family requested Dr. Titus Anderson. ED Disposition - Plan for ED Patient: Disposition: Home or Assisted Living Diagnosis: Fracture of proximal end of left humerus, Contusion of chest wall with intact skin, Contusion of face, scalp and neck, Chronic renal failure, stage 3 (moderate) Instructions: FRACTURE, Shoulder, Abrasion Prescriptions: Oxycodone [Oxyir] 5 mg PO Q6H PRN PRN #20 tablet PRN Reason: Pain Transmission Status: Sent to [facility] Referrals: Raul Uribe [Primary Care Provider] - Hao Anderson MD [STAFF PHYSICIAN] - 1 Week
[2019-05-14] MEDS: Ondansetron 4 MG/2 ML Vial IV (17:27)
[2019-05-14] MEDS: Morphine 4 MG/ML Syringe IV ×2 (17:28→18:16)
--- NOTE | 2019-05-14 17:36 | CT_ITS ---
STUDY: CT BRAIN WITHOUT CONTRAST REASON FOR EXAM: Male, 58 years old. Trauma on Coumadin RADIATION DOSAGE (If Supplied By Facility): CTDIvol = ( 44.99 ) mGy, DLP = ( 863.60 ) mGycm TECHNIQUE: Transaxial CT imaging of the brain was performed without administration of intravenous contrast material. Individualized dose optimization techniques were used for this CT. COMPARISON: April 07, 2019 FINDINGS: Normal soft tissue structures. Normal calvarium. Normal size ventricles and extra-axial spaces for the patient's age. Mild periventricular white matter ischemic changes.. Normal basal ganglia and thalami. Normal brainstem. Normal cerebellum. There is no intracranial hemorrhage. There are no findings of an acute ischemic infarction. Normal visualized paranasal sinuses. CT/Brain/Head without Contrast IMPRESSION: Mild periventricular white matter ischemic change. No evidence for acute intracranial bleed. Electronically Signed: Alexander Patel MD at 17:54 EDT , Service support ,
[2019-05-14 18:04] LABS: Absolute Lymphocyte Count 3.09 X10^3/uL (0.83-4.51); Absolute Neutrophil Count 5.4 X10^3/uL (2.0-7.7); Basophil# 0.04 X10^3/uL; Basophil% 0.4 % (0-1); Eosinophil# 0.17 X10^3/uL; Eosinophils% 1.8 % (0-5); Hematocrit 34.6 % (40-54); Hemoglobin 11.5 g/dL (13.0-16.5); Lymphocyte # 3.09 X10^3/ul (4.0); Lymphocyte % 32.7 % (19-41); Mean Corp Hgb Conc 33.2 g/dL (32-36); Mean Corpuscular Hgb 30.9 pg (27.0-32.0); Mean Platelet Vol. 9.8 fl (6.2-12.0); Monocyte% 7.4 % (0-10); NRBC Flagged by Analyzer 0 % (0-5); Neutrophil % 57.1 % (47-70); Platelet Count 176 K/mm3 (150-450); RBC Distribution Width CV 14.3 % (11.6-14.6); RBC Distribution Width SD 48.6 fl (35.1-43.9); Red Blood Count 3.72 M/mm3 (4.6-6.2); White Blood Count 9.5 K/mm3 (4.4-11.0)
[2019-05-14 18:11] LABS: International Normalized Ratio 2.3; Prothrombin Time (Protime)PT. 25.1 SECONDS (11.7-14.9)
[2019-05-14 18:12] VITALS: BP 133/57; PULSE 67; RESP 18; O2SAT 93
[2019-05-14 18:32] LABS: Anion Gap 4 (5-15); BUN 13 mg/dL (7-18); BUN/Creat Ratio 6.6 RATIO (10-20); Calcium,Total 8.7 mg/dL (8.5-10.1); Chloride 106 mmol/L (98-107); Creatinine, Serum 1.97 mg/dL (0.70-1.30); EST Glomerular Filtration Rate 37 mL/min (>60); Est Glom Filt Rate - Afr Amer 45 mL/min (>60); Estimated Creatinine Clearance 40.87 ml/min; Glucose 110 mg/dL (74-106); Potassium 3.5 mmol/L (3.5-5.1); Sodium Level 139 mmol/L (136-145)
--- NOTE | 2019-05-14 19:14 | CM.ED ---
Social Work Consult: Home Health Services/Resources Informant: Dr. Hughes Chief Complaint: Patient stating to have fallen 5 times within the past 2 weeks and to have weakness. Relationship/Social History: . Patient spouse, Sheba provides 24hr care for patient within the home. Living Situation: Lives with spouse in a mobile home with a ramp to enter the home. Patient utilizes a walker or cane to ambulate. Transportation/Food: No concerns. Assessment: Met with patient and patient spouse in room. Introduced self as well as social work faculty member role. Patient agreeable to meet with this social work faculty member. Patient requesting for some home health services for physical and occupational therapy to be set up within the home. Patient provided with list of home health companies and requesting for home health care to be set up through [facility] ([facility]). This social work faculty member broached topic of further home health services such as aides. Patient primary income in disability and patient spouse does not work and has no income coming in. This social work faculty member broaching topic of [place] waiver program, patient stating to believe that things are handled at home and just need some therapy. This social work faculty member providing patient with contact information for [facility] in the event that they have questions. All questions answered. [facility] Voicemail left with referral. Order faxed. Referral for PT/OT made. ZAHRA Nam
[2019-05-14 20:00] VITALS: BP 128/64; PULSE 72; RESP 19; O2SAT 96
--- NOTE | 2019-05-14 20:17 | ED.RN ---
pt states he is still having pain; MD aware and gave verbal order for Dilaudid
[2019-05-14] MEDS: HYDROmorphone 1 MG/ML Syringe IV (20:28)
[2019-05-14 20:33] VITALS: BP 133/68; PULSE 74; RESP 15; O2SAT 97
--- NOTE | 2019-05-15 09:57 | CM.ED ---
SOCIAL WORK SPOKE WITH BURAK WITH [facility]. BURAK CANTU FOLLOWED UP WITH PATIENT'S THIS DAY. HOME HEALTH START OF CARE TO BEGIN 05/18/19. NABEEL REDD, DOOR TO DOOR SALESMAN.
== END 2019-05-14 21:13 | disposition home or self-care (01) ==
PROVIDERS: Emergency Provider Emergency Medicine; Family Provider Family Medicine; PCP Family Medicine
DX: S42.212A Unspecified displaced fracture of surgical neck of left humerus, initial encounter for closed fracture (principal); S00.03XA Contusion of scalp, initial encounter; S00.83XA Contusion of other part of head, initial encounter; S20.219A Contusion of unspecified front wall of thorax, initial encounter; S50.812A Abrasion of left forearm, initial encounter; S50.811A Abrasion of right forearm, initial encounter; W19.XXXA Unspecified fall, initial encounter; Y93.9 Activity, unspecified; Y92.9 Unspecified place or not applicable; Y99.9 Unspecified external cause status; N18.3 Chronic kidney disease, stage 3 (moderate); R60.0 Localized edema; I48.0 Paroxysmal atrial fibrillation; I25.10 Atherosclerotic heart disease of native coronary artery without angina pectoris; K75.81 Nonalcoholic steatohepatitis (NASH); I87.2 Venous insufficiency (chronic) (peripheral); F32.9 Major depressive disorder, single episode, unspecified; E66.01 Morbid (severe) obesity due to excess calories; Z94.4 Liver transplant status; R29.6 Repeated falls; Z79.01 Long term (current) use of anticoagulants; Z79.82 Long term (current) use of aspirin; Z79.899 Other long term (current) drug therapy; Z88.8 Allergy status to other drugs, medicaments and biological substances; Z96.643 Presence of artificial hip joint, bilateral; Z90.49 Acquired absence of other specified parts of digestive tract
CPT/HCPCS: 36415; 70450; 71046; 73030; 80048; 85025; 85610; 96374; 96375; 96376; 99285; A4216; J2405

== ENCOUNTER 2019-05-17 22:02 | Emergency (ER) | payer MEDICARE, SELFPAY ==
[2019-05-17 22:03] VITALS: BP 140/88; PULSE 101; RESP 16; TEMP 38.2; O2SAT 94; BMI 47.2
--- NOTE | 2019-05-17 22:16 | EKG12_ITS ---
Test Reason : Blood Pressure : / mmHG Vent. Rate : 096 BPM Atrial Rate : 096 BPM P-R Int : 170 ms QRS Dur : 092 ms QT Int : 378 ms P-R-T Axes : -22 -33 009 degrees QTc Int : 477 ms Normal sinus rhythm Left axis deviation Low voltage QRS Cannot rule out Anterior infarct , age undetermined Abnormal ECG Confirmed by SAHIL SHIPMAN, ROULA ([id number]), communications editor DELPHINE HEAD ([id number]) on 05/18/2019 3:03:24 PM Referred By: ETHEL Confirmed By:ROULA BAXTER MD
[2019-05-17 22:18] VITALS: BP 157/83; PULSE 95; RESP 26; O2SAT 94
--- NOTE | 2019-05-17 22:20 | RAD_ITS ---
HISTORY:FEVER/CONFUSED FEVER/CONFUSED EXAM: XR Chest 1 View: COMPARISON: May 14, 2019 FINDINGS: # of images incl. paperwork: 1 LINES/DEVICES: None. LUNGS: Left basilar atelectasis. No consolidation, edema or effusion. No pneumothorax. MEDIASTINUM AND CARDIOVASCULAR STRUCTURES: Cardiac silhouette not enlarged. BONES AND SOFT TISSUES: healed left rib fractures Poorly visualized left humeral neck fracture that was seen on the prior study RAD/Chest 1 View (Portable) IMPRESSION: Left basilar atelectasis at 2236 Reported and signed by: Rosetta Pa DO Electronically Signed: Rosetta Pa DO at 22:34 EDT Tel , Service support ,
--- NOTE | 2019-05-17 22:27 | ED.DCSUM_ITS ---
History of Present Illness Chief Complaint: General Illness Informant: Family, Significant Other Onset: Today Context: Sudden Onset Timing: Continuous Quality: Fever and hallucinations Location: Home Current Severity: Moderate Maximum Severity: Moderate Worsened by: Unknown Relieved by: Nothing Associated Symptoms: Frequency and incontinence Narrative: Patient is a 58-year-old male with multiple medical problems who was recently seen after fall. He sustained fractured to his left proximal humerus at the surgical neck. His work-up at the time was unremarkable. consumer insight manager was involved and home health assistance was initiated. and daughter states he has had elevated temperature. He has not been his normal self. The state he is talking to people that are not there and seeing things that are not there. They noted the incontinence. He is unaware. Matter fact he cannot give a history. nor daughter have noted any coughing. He appears short of breath of them. He acknowledges by nodding yes that he is short of breath. His past medical history is remarkable for liver recipient on immunosuppressive meds. Prior similar symptoms: Yes Recent Illness/Hospitalization: Yes - Past Medical History (1) Multiple falls Status: Acute (2) Vertigo, central Status: Acute (3) Anemia of chronic disease Status: Chronic (4) Ascites Status: Chronic (5) Bilateral leg edema Status: Chronic (6) CAD (coronary artery disease) Status: Chronic (7) Chronic renal failure, stage 3 (moderate) Status: Chronic (8) Morbid obesity Status: Chronic (9) PAF (paroxysmal atrial fibrillation) Status: Chronic (10) Status post liver transplant Status: Chronic (11) Venous insufficiency Status: Chronic (12) SVT (supraventricular tachycardia) Status: Resolved Past Medical History - Allergies and Home Meds Allergies/Adverse Reactions: Allergies pravastatin [From Pravachol] Allergy (Verified 05/17/19 22:08) Hives Asmfpgr-Swl-Ysy Reductase Inhibitor Allergy (Verified 05/17/19 22:08) Hives zolpidem tartrate [From Ambien] Allergy (Verified 05/17/19 22:08) Hives from the controlled or slow-release ambien. does not have any reactions to regular ambien. Primary Care Physician: Raul Uribe [Primary Care Provider] - Prior records reviewed: Yes Surgical History: cholecystectomy, - - bilateral hip replacement 12/15, shoulder surg bilaterally, foot surgery, PCI x 1. Liver transplant in July of 2017 at [facility] main campus Lives: Spouse/ Significant Other, With Family Smoking Status: Never smoker Alcohol: None Drugs: None - Family History Maternal Family History: Reports: Diabetes, Heart Disease, Hypertension Paternal Family History: Reports: Heart Disease, Hypertension Review of Systems ROS: Unable to Obtain - She is disoriented to time and place. and daughter are the informants. General: Reports: Chills, Fever, Malaise Respiratory: Reports: Dyspnea Gastrointestinal: Denies: Vomiting, Diarrhea Genitourinary: Reports: Frequency Skin: Reports: Wounds - Multiple bruises secondary to falling Neurological: Reports: Weakness Hematologic: Reports: Easy bruising, Easy bleeding Allergy: Denies: Uticaria, Swelling of the mouth Physical Exam Vital Signs/Narrative: Vital Signs Temp Pulse Resp BP Pulse Ox 05/17/19 22:18 95 26 H 157/83 H 94 05/17/19 22:03 100.8 F H 101 H 16 140/88 H 94 Inital Vital Signs reviewed: Yes General: Well nourished, Well developed, Acute Distress Eyes: Perrl, EOMI. Negative for: Pale conjunctiva, Scleral icterus ENT: No rhinorrhea, TM's clear, Dry mucous membranes Neck: Supple, Nontender Cardiovascular: Regular rhythm, No murmurs, Normal S1, Normal S2 Respiratory: CTA bilaterally, Chest nontender, - - He is tachypnic. Abdomen: Soft, Nontender, Nondistended, Normal bowel sounds Rectal: Deferred Back: Nontender Extremities: Tenderness, Edema Skin: No rash, Pallor, Trauma. Negative for: Cyanosis, Diaphoresis, Jaundice Neurological: Cranial nerves II-XII grossly intact, - - Moves his extremities. Unable to perform cerebellar testing. Unable to test gait.. Negative for: Alert, Oriented x3 Psychological: - - Unable to determine. Diagnostic/Tx/Re-eval Chest X-Ray - ED: 1 View, Read by ED Physician, Normal, Heart, Mediastinum, Bony Structures, - - The x-ray is rotated. There is increased markings right lower lobe. This may represent infiltrate versus distortion from rotation. The chest x-ray is otherwise unchanged from prior. Impressions Chest X-Ray 05/17/19 22:20 IMPRESSION: Left basilar atelectasis at 2236 Reported and signed by: Rosetta Pa DO Electronically Signed: Rosetta aP DO at 22:34 EDT Tel , Service support , 05/17/19 22:20 Chest 1 View (Portable) [RAD] Stat Laboratory Results 05/17/19 05/17/19 05/17/19 22:30 22:30 22:30 WBC 5.2 RBC 2.76 L Hgb 8.6 L Hct 24.7 L MCV 89.5 MCH 31.2 MCHC 34.8 RDW Std Deviation 46.1 H RDW Coeff of Maciel 14.3 Plt Count 158 MPV 9.9 Immature Gran % (Auto) 0.800 Neut % (Auto) 85.6 H Lymph % (Auto) 7.0 L [place] % (Auto) 6.4 Eos % (Auto) 0.0 Baso % (Auto) 0.2 Absolute Neuts (auto) 4.4 Absolute Lymphs (auto) 0.36 L Nucleated RBC % 0 Differential Comment SCANNED Platelet Estimate ADEQUATE Polychromasia RARE PT 41.7 H INR 4.3 H* APTT 60.4 H Sodium 136 Potassium 3.8 Chloride 103 Carbon Dioxide 25.0 Anion Gap 8 BUN 29 H Creatinine 2.34 H Estim Creat Clear Calc 34.41 Est GFR (MDRD) Af Amer 37 L Est GFR (MDRD) Non-Af 31 L BUN/Creatinine Ratio 12.4 Glucose 124 H Lactic Acid Calcium 7.7 L Total Bilirubin 2.10 H AST 38 H ALT 19 Alkaline Phosphatase 145 H Ammonia Total Protein 5.1 L Albumin 2.0 L Globulin 3.1 Albumin/Globulin Ratio 0.6 L Urine Color Urine Clarity Urine pH Ur Specific [place] Urine Protein Urine Glucose (UA) Urine Ketones Urine Occult Blood Urine Nitrite Urine Bilirubin Urine Urobilinogen Ur Leukocyte Esterase Urine RBC Urine WBC Ur Squamous Epith Cells Amorphous Sediment Urine Bacteria Urine Mucus 05/17/19 05/17/19 05/17/19 22:30 22:32 22:40 WBC RBC Hgb Hct MCV MCH MCHC RDW Std Deviation RDW Coeff of Maciel Plt Count MPV Immature Gran % (Auto) Neut % (Auto) Lymph % (Auto) [place] % (Auto) Eos % (Auto) Baso % (Auto) Absolute Neuts (auto) Absolute Lymphs (auto) Nucleated RBC % Differential Comment Platelet Estimate Polychromasia PT INR APTT Sodium Potassium Chloride Carbon Dioxide Anion Gap BUN Creatinine Estim Creat Clear Calc Est GFR (MDRD) Af Amer Est GFR (MDRD) Non-Af BUN/Creatinine Ratio Glucose Lactic Acid 3.9 H Calcium Total Bilirubin AST ALT Alkaline Phosphatase Ammonia 51.0 H Total Protein Albumin Globulin Albumin/Globulin Ratio Urine Color Yellow Urine Clarity Sl. Cloudy Urine pH 5.0 Ur Specific [place] 1.015 Urine Protein 15 H Urine Glucose (UA) Normal Urine Ketones 5 H Urine Occult Blood 25 H Urine Nitrite Negative Urine Bilirubin 3 H Urine Urobilinogen 4 H Ur Leukocyte Esterase 25 H Urine RBC 0-5 SEEN Urine WBC 0-5 SEEN Ur Squamous Epith Cells 0-5 SEEN Amorphous Sediment 1+ URATE Urine Bacteria 0 SEEN Urine Mucus 0 SEEN White count is normal. Patient's had a 3 g drop in his hemoglobin. INR is elevated at 4.3. He is on Coumadin. Lactate elevated 3.9. Ammonia is normal. UA is not consistent with urinary tract infection. Creatinine is elevated from 1 week ago. - EKG Initial EKG Interpretation: Sinus Rhythm - Sinus rhythm with a ventricular rate of 96. AL interval is 170 ms. QS duration 92 ms. QT duration 370 ms. Emmet is to the le ft. There is low voltage. There is artifact which computer is reading as anterior infarct. - Medical Decision Making Since patient is tachypneic, tachycardic and febrile on immune suppressive meds concern for sepsis. Will obtain chest x-ray and UA. Since he is a liver recipient he was covered with Zosyn and vancomycin. There is history of hepatic encephalopathy. Will add ammonia level as well. Source of patient's fever is unknown. Since he is immunosuppressed he was started on antibiotics. Lactate elevated 3.9. There is a drop in his hemoglobin. This will need to be further worked up. His BUN to creatinine ratio is not greater than 20-1. There is evidence of endorgan injury with an elevated creatinine of 2.32 from 1.9. Liver enzymes are slightly elevated, which they have been in the past. Ammonia level is normal and does not explain his change in mental status. Will contact hospitalist for admission to PCU stepdown versus ICU. - Critical Care Time Critical care time (excluding procedures): 30-74 minutes - Care time 34 minutes, Discussing w/Patient &/or Family/Hardware Assembler, Discussing w/Consultants, Arra nging Admission or Transfer ED Disposition - Plan for ED Patient: Disposition: Acute Care [facility] Diagnosis: Systemic inflammatory response syndrome (SIRS) due to infection, Acute encephalopathy, Acute anemia, Warfarin-induced coagulopathy, Acute on chronic renal insufficiency, Liver transplant recipient, Multiple falls, Multiple contusions, Lactic acidosis Referrals: Raul Uribe [Primary Care Provider] -
[2019-05-17 22:48] LABS: Bacteria 0 SEEN /hpf (None Seen); Mucous, Urine 0 SEEN /hpf (<or=2+)
[2019-05-17 22:50] LABS: Color, Urine Yellow (Yellow); Glucose, Dipstick Normal (Normal); Ketone-Dipstick 5 mg/dl (Negative); Leukocyte Esterase-Dipstick 25 /ul (Negative); Nitrite-Dipstick Negative (Negative); Occult Blood-Urine 25 /ul (Negative); Protein-Dipstick 15 mg/dl (Negative); Specific Gravity, Urine 1.015 (1.002-1.030); Urine Clarity Sl. Cloudy (Clear); Urine Urobilinogen 4 mg/dl (Normal)
[2019-05-17 22:53] LABS: Absolute Lymphocyte Count 0.36 X10^3/uL (0.83-4.51); Absolute Neutrophil Count 4.4 X10^3/uL (2.0-7.7); Basophil# 0.01 X10^3/uL; Basophil% 0.2 % (0-1); Hematocrit 24.7 % (40-54); Hemoglobin 8.6 g/dL (13.0-16.5); Lymphocyte # 0.36 X10^3/ul (4.0); Mean Corp Hgb Conc 34.8 g/dL (32-36); Mean Corpuscular Hgb 31.2 pg (27.0-32.0); Mean Corpuscular Volume 89.5 fL (80-94); Mean Platelet Vol. 9.9 fl (6.2-12.0); Monocyte# 0.33 X10^3/uL; Monocyte% 6.4 % (0-10); NRBC Flagged by Analyzer 0 % (0-5); Neutrophil # 4.41 X10^3/uL (2.7-7.7); Neutrophil % 85.6 % (47-70); POSITIVE DIFFERENTIAL YES; Platelet Count 158 K/mm3 (150-450); RBC Distribution Width CV 14.3 % (11.6-14.6); RBC Distribution Width SD 46.1 fl (35.1-43.9); Red Blood Count 2.76 M/mm3 (4.6-6.2); White Blood Count 5.2 K/mm3 (4.4-11.0)
[2019-05-17 22:57] LABS: Prothrombin Time (Protime)PT. 41.7 SECONDS (11.7-14.9)
[2019-05-17 22:58] LABS: Partial Thromboplast Time 60.4 Seconds (24.1-36.2)
[2019-05-17 23:02] LABS: International Normalized Ratio 4.3
--- NOTE | 2019-05-17 23:02 | ED.RN ---
LAB CALLED WITH CRITICAL LAB RESULTS. INR 4.3. DR. CHISHOLM MADE AWARE. NO NEW ORDERS AT THIS TIME
[2019-05-17 23:03] LABS: ALB/GLOB Ratio 0.6 RATIO (0.9-2.4); AST(SGOT) 38 U/L (15-37); Alanine Aminotransfer ALT/SGPT 19 U/L (16-61); Alkaline Phosphatase 145 U/L (45-117); Anion Gap 8 (5-15); BUN 29 mg/dL (7-18); BUN/Creat Ratio 12.4 RATIO (10-20); Calcium,Total 7.7 mg/dL (8.5-10.1); Chloride 103 mmol/L (98-107); Creatinine, Serum 2.34 mg/dL (0.70-1.30); Differential Indicated SCAN CRITERIA MET; EST Glomerular Filtration Rate 31 mL/min (>60); Est Glom Filt Rate - Afr Amer 37 mL/min (>60); Estimated Creatinine Clearance 34.41 ml/min; Globulin 3.1 g/dL (2.2-4.2); Glucose 124 mg/dL (74-106); Potassium 3.8 mmol/L (3.5-5.1); Protein, Total 5.1 g/dL (6.4-8.2); Sodium Level 136 mmol/L (136-145)
[2019-05-17 23:08] LABS: Urine Bilirubin Dipstick 3 mg/dL (Negative)
[2019-05-17 23:09] LABS: Red Blood Cells-Urine 0-5 SEEN /hpf (0-5); Squamous Epithelial Cells - UA 0-5 SEEN /hpf (0-5); White Blood Cells 0-5 SEEN /hpf (0-5)
[2019-05-17 23:10] LABS: Amorphous Sediment 1+ URATE
[2019-05-17 23:28] LABS: Lactic Acid 3.9 mmol/L (0.4-2.0)
[2019-05-17 23:29] LABS: Differential Comment SCANNED; Platelet Estimate ADEQUATE (ADEQ)
--- NOTE | 2019-05-17 23:29 | ED.RN ---
LAB CALLED WITH CRITICAL LAB RESULTS. LACTIC ACID 3.9. DR. CHISHOLM MADE AWARE. NO NEW ORDERS AT THIS TIME
[2019-05-17 23:31] LABS: Polychromasia RARE
[2019-05-17 23:32] VITALS: BP 140/79; PULSE 92; RESP 24; TEMP 37.9; O2SAT 94
--- NOTE | 2019-05-17 23:58 | RAD_ITS ---
STUDY: X-RAY - LEFT SHOULDER REASON FOR EXAM: Male, 58 years old. Fall. Shoulder pain TECHNIQUE: 2 view(s) of the shoulder. COMPARISON: None. FINDINGS: Normal glenohumeral articulation. There is degenerative arthrosis of the acromioclavicular joint without inferior osseous spur formation. Normal acromion. There is severely displaced fracture in the proximal metaphysis of the left humerus. The soft tissue structures are unremarkable. Normal visualized pulmonary apex. RAD/Shoulder min 2 Views IMPRESSION: There is severely displaced fracture in the proximal metaphysis of the left humerus. Electronically Signed: Jessica Ramachandran, at 1:09 EDT Tel , Service support ,
--- NOTE | 2019-05-17 23:58 | CT_ITS ---
STUDY: CT BRAIN WITHOUT CONTRAST REASON FOR EXAM: Male, 58 years old. Fall. Head trauma. RADIATION DOSAGE (If Supplied By Facility): CTDIvol = ( 44.99 ) mGy, DLP = ( 829.85 ) mGycm TECHNIQUE: Transaxial CT imaging of the brain was performed without administration of intravenous contrast material. Individualized dose optimization techniques were used for this CT. COMPARISON: No relevant priors. FINDINGS: Normal soft tissue structures. Normal calvarium. Normal size ventricles and extra-axial spaces for the patient's age. There are areas of decreased attenuation within the white matter tracts of the supratentorial brain, consistent with microvascular disease changes. Normal basal ganglia and thalami. Normal brainstem. Normal cerebellum. There is no intracranial hemorrhage. There are no findings of an acute ischemic infarction. Normal visualized paranasal sinuses. CT/Brain/Head without Contrast IMPRESSION: Chronic involutional changes of the brain. Electronically Signed: Jessica Ramachandran, at 1:06 EDT Tel , Service support ,
[2019-05-18] VITALS: BP 135/74; PULSE 91; RESP 24; O2SAT 94
[2019-05-18 01:00] VITALS: BP 129/70; PULSE 88; RESP 21; O2SAT 93
[2019-05-18] MEDS: 0.9% Normal Saline 1,000 ML 75 ML IV (01:38)
--- NOTE | 2019-05-18 02:03 | CCHN_ITS ---
Hospitalist Note Evaluated patient in the emergency room for possible admission to the [facility]. Discussed current patient presentation with family noting that he has been confused with ongoing serial falls including most recently on day of ED presentation with trauma to the head as well as falling again onto left upper extremity. He had been in the emergency room the prior to current presentation with at that time similar story with confusion ongoing with CT head unremarkable and left upper extremity shoulder film with evidence of mildly displaced acute humeral fracture. Upon repeat presentation with similar history and ongoing severe confusion patient had noted low-grade temperature additionally, CT head with no acute intracranial findings given repeat fall hitting his head again as well as repeat left upper extremity shoulder plain film which noted worsening now severe displaced humeral fracture. ED labs with further elevation of INR to 4.3, increasing creatinine to 2.34, increasing total bilirubin now to 2.10 with AST/ALT 38/19 with alk phos 145 with urinalysis with no overt infection, minimally elevated ammonia level especially compared to prior with family noted recent bowel movements, 5 on day of ED presentation with confirmed lactulose intake, chest x-ray with no overt infection. In the emergency room given low-grade temperature patient ministered vancomycin, Zosyn as well as gentle hydration. Patient with no recent cough, congestion, fever, chills aside from current presentation, abdominal pain, nausea, emesis, market diarrhea, dysuria. Family requested that transplant service be contacted and they requested that the patient be transferred to the [facility] given worsened liver function, ongoing confusion. [facility] contacted per hospitalist physician given case had been turned over from Dr. Hughes and hospitalist familiar with patient from prior admissions, discussed case with [facility] Dr. Morillo of the [facility] service who agreed that transfer was appropriate and requested that patient come to his service. Family updated on this plan of care and discussed with ED physician. Physical Examination: General: awake, alert, oriented to self, place, intermittent confusion, remains cooperative, seated upright in ED bed, fatigued and uncomfortable. Skin: normal color, turgor, no icterus, cyanosis except notable ecchymoses from serial falls, notes ecchymoses to the left upper extremity and shoulder. HEENT: AT/NC, EOMI, PERRLA, dry MM. Lungs: Diminished breath sounds bilateral bases, moderate effort, no rales, ronchi or wheezing. Heart: Regular rate and rhythm; no gallop, rub audible. Abdomen: soft, morbidly obese, no specific tenderness palpation, no grimace, rebound or guarding, difficult to assess distention given habitus, distant bowel sounds, unable to discern HSM secondary to habitus. Extremities: no cyanosis, clubbing, chronic bilateral lower extremity pitting edema pedal to proximal jackson, improved from prior family notes. Neurological: patient awake, alert, oriented as noted; cognitive function not baseline intact; pupils equally reactive to light and accomodation; cranial nerves II-XII grossly normal, moving all extremities except left upper extremity as expected, sling in place, peripheral pulses intact, notable edema, status post fall again on ED presentation with worsened now severe proximal displaced humeral fracture, strength severely global decrease secondary to ongoing worsening status. Psychiatric: affect appears flat, fatigued, mildly lethargic, no acute evidence of depressive or anxiety feelings.
[2019-05-18 02:05] VITALS: BP 120/50; PULSE 86; RESP 18; TEMP 37.4; O2SAT 94
[2019-05-18 02:39] LABS: Reflex Lactate? Y
--- NOTE | 2019-05-18 02:51 | ED.RN ---
Addendum entered by Ishaan Magana 05/18/19 02:52: CORRECT PATIENT WAS ACCEPTED AT 0158 Original Note: PATIENT HAS BEEN ACCEPTED AT [facility] WAITING FOR TRANSFER BED AT THIS TIME
--- NOTE | 2019-05-18 02:58 | ED.RN ---
REPEAT LACTIC LEVEL DRAWN AT THIS TIME
[2019-05-18 03:00] VITALS: BP 120/50; PULSE 86; RESP 18; TEMP 37.4; O2SAT 94
[2019-05-18] MEDS: Morphine 2 MG/ML Syringe IV (03:14)
--- NOTE | 2019-05-18 03:15 | ED.RN ---
PATIENT GIVEN ROOM ASSIGNMENT G100 [facility] [phone]
[2019-05-18 03:33] LABS: Lactic Acid 1.4 mmol/L (0.4-2.0)
[2019-05-18 04:31] VITALS: BP 134/59; PULSE 92; RESP 24; O2SAT 97
--- NOTE | 2019-05-18 04:33 | NURSING ---
IV fluid continued upon transfer.
== END 2019-05-18 04:33 | disposition short-term general hospital (02) ==
PROVIDERS: Emergency Medicine; Emergency Provider Emergency Medicine; Family Provider Family Medicine; PCP Family Medicine
DX: T86.42 Liver transplant failure (principal); R65.10 Systemic inflammatory response syndrome (SIRS) of non-infectious origin without acute organ dysfunction; G93.40 Encephalopathy, unspecified; R18.8 Other ascites; E87.2 Acidosis; D64.9 Anemia, unspecified; R79.1 Abnormal coagulation profile; T45.515A Adverse effect of anticoagulants, initial encounter; Y92.9 Unspecified place or not applicable; S09.90XA Unspecified injury of head, initial encounter; T14.8XXA Other injury of unspecified body region, initial encounter; S42.302A Unspecified fracture of shaft of humerus, left arm, initial encounter for closed fracture; W19.XXXA Unspecified fall, initial encounter; Y93.9 Activity, unspecified; Y99.9 Unspecified external cause status; R29.6 Repeated falls; I25.10 Atherosclerotic heart disease of native coronary artery without angina pectoris; N18.3 Chronic kidney disease, stage 3 (moderate); D63.8 Anemia in other chronic diseases classified elsewhere; I48.0 Paroxysmal atrial fibrillation; E66.01 Morbid (severe) obesity due to excess calories; I87.2 Venous insufficiency (chronic) (peripheral); R32 Unspecified urinary incontinence; Z79.01 Long term (current) use of anticoagulants; Z79.82 Long term (current) use of aspirin; Z79.899 Other long term (current) drug therapy; Z88.8 Allergy status to other drugs, medicaments and biological substances; Z94.4 Liver transplant status; Z96.643 Presence of artificial hip joint, bilateral; Z90.49 Acquired absence of other specified parts of digestive tract
CPT/HCPCS: 51702; 70450; 71045; 73030; 80053; 81001; 82140; 83605; 85025; 85610; 85730; 87040; 87086; 93005; 96365; 96366; 96367; 96375; 99285; J7030; J7040; J7050; A4216

== ENCOUNTER → 2019-06-20 10:19 | Outpatient (CLI) | payer MEDICARE, SELFPAY ==
--- NOTE | 2019-06-20 10:23 | CT_ITS ---
HISTORY: Left shoulder pain after fall on 2018. Comparison x-rays are from May 18, 2019, May 14, 2019, and December 27, 2017. The May 2019 study is demonstrate a malaligned subcapital humeral neck fracture. Technique: Contiguous helical images were obtained through the left shoulder. 2-D reformats are performed on the acquisition scanner. Findings: Subcapital left humeral neck comminuted fracture is present. The shaft of the proximal humeral metaphysis is impacted into the displaced malformed humeral head. Comminuted fractures are present through the humeral head. Soft tissue calcification possibly within the synovium surrounding the fractures is present. This appears to be new since the previous x-rays. Some of the humeral head is still aligned adjacent to the glenoid fossa. No scapular fracture is perceived. The left clavicle is normal. The left acromioclavicular joint appears well aligned. There are healing fractures to the left mid axillary fourth, fifth ribs. Lower ribs are not imaged and may also be fractured. A shoulder effusion is present. No axillary adenopathy. CT/Extremity Upper without Contra IMPRESSION: Similar to the previous 2 x-rays there is a subcapital left humeral neck fracture. The fracture is comminuted with many fragments to the humeral head. The shaft of the humerus is impacted into the humeral head fracture fragments. 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 I do not believe these are all fracture fragments, but calcifications from the pseudoarticulation and malalignment of the fractured humeral neck Individualized dose optimization techniques were used for this CT. at 0137 Reported and signed by: Cullen Almendarez MD Electronically Signed: Cullen Almendarez MD at 1:36 EDT Tel , Service support ,
== END ==
LOC: CT 10:20
PROVIDERS: Family Provider Family Medicine; PCP Family Medicine; Referring Provider Specialist; Visit Provider Specialist
DX: S42.222A 2-part displaced fracture of surgical neck of left humerus, initial encounter for closed fracture (principal); X58.XXXA Exposure to other specified factors, initial encounter; Y93.9 Activity, unspecified; Y92.9 Unspecified place or not applicable; Y99.9 Unspecified external cause status
CPT/HCPCS: 73200

== ENCOUNTER → 2020-01-27 14:30 | Outpatient (CLI) | payer MEDICARE, SELFPAY ==
[2020-01-27 16:13] LABS: Amphetamine Urine VISTA NEGATIVE (<1000 ng/mL); Barbiturate Urine VISTA NEGATIVE (< 200 ng/mL); Benzodiazepine Urine VISTA POSITIVE (< 200 ng/mL); Cocaine Urine VISTA NEGATIVE (< 300 ng/mL); Ecstacy Urine VISTA NEGATIVE (< 500 ng/mL); Methadone Urine VISTA NEGATIVE (< 300 ng/mL); PCP Urine VISTA NEGATIVE (< 25 ng/mL); THC Urine VISTA NEGATIVE (< 50 ng/mL); Vista UDS pH Range 7
== END ==
PROVIDERS: PCP Family Medicine; Referring Provider Anesthesiology Pain Medicine; Visit Provider Anesthesiology Pain Medicine
DX: F11.20 Opioid dependence, uncomplicated (principal)
CPT/HCPCS: 80307

== ENCOUNTER 2020-05-23 20:04 | Emergency (ER) | payer MEDICARE, SELFPAY ==
[2020-05-23 20:06] VITALS: BP 130/82; PULSE 68; RESP 18; TEMP 36.1; O2SAT 99; BMI 50.4
[2020-05-23 20:09] VITALS: O2SAT 98
--- NOTE | 2020-05-23 20:18 | RAD_ITS ---
HISTORY: FALL GETTING INTO SHOWER. LEFT SHOULDER PAIN. REPLACEMENT IN JULY OF LAST YEAR. Exam: Left Shoulder 2 images COMPARISON: Previous x-ray of the left shoulder is from May 18, 2019 FINDINGS: # of images incl. paperwork: 2 XR Shoulder Min 2 Views: the humeral head has been removed. A left shoulder arthroplasty has been placed. Alignment is near anatomic. There is hyperostosis of bone around the proximal humerus, surrounding the prosthesis intramedullary component. It is likely be included in place. There is evidence of loosening. No fracture or subluxation. The acromioclavicular joint is normal. The adjacent chest is unremarkable. RAD/Shoulder min 2 Views IMPRESSION: Left shoulder arthroplasty. Cemented humeral component. Evidence of loosening of the humeral component with lucency between the bone cement and the thickened cortex of the proximal humerus at 2206 Reported and signed by: Cullen Almendarez MD Electronically Signed: uCllen Almendarez MD at 22:05 EDT Tel , Service support ,
--- NOTE | 2020-05-23 20:19 | RAD_ITS ---
HISTORY: FALL GETTING INTO SHOWER. FULL THICKNESS LACERATION TO RIGHT LOWER LEG, BONE VISIBLE. Technique: 4 images of the right leg Comparison: Although the patient has had 56 previous radiological exams at this institution alone, no previous imaging of the right leg is available for comparison. Findings: No acute fracture or dislocation. Decreased bone mineral density. Old healed proximal fibular fracture. Laceration to the lateral aspect of the right calf with subcutaneous gas and swelling. No foreign body perceived. RAD/Tibia & Fibula 2 Views IMPRESSION: Laceration to the calf with subcutaneous gas and discontinuity to the skin. Healed old proximal fibular fracture. Osteoporosis. at 2149 Reported and signed by: Cullen Almendarez MD Electronically Signed: Cullen Almendarez MD at 21:48 EDT Tel , Service support ,
[2020-05-23] MEDS: fentaNYL 100 MCG/2 ML Ampul 50 MCG IV (20:28)
[2020-05-23 20:47] LABS: Absolute Neutrophil Count 2.9 X10^3/uL (2.0-7.7); Basophil# 0.05 X10^3/uL; Basophil% 0.8 % (0-1); Eosinophil# 0.37 X10^3/uL; Eosinophils% 5.8 % (0-5); Hemoglobin 12.1 g/dL (13.0-16.5); Lymphocyte % 39.5 % (19-41); Mean Corp Hgb Conc 32.7 g/dL (32-36); Mean Corpuscular Hgb 30.6 pg (27.0-32.0); Mean Corpuscular Volume 93.7 fL (80-94); Mean Platelet Vol. 9.6 fl (6.2-12.0); Monocyte# 0.51 X10^3/uL; Monocyte% 8.1 % (0-10); NRBC Flagged by Analyzer 0 % (0-5); Neutrophil # 2.88 X10^3/uL (2.7-7.7); Neutrophil % 45.5 % (47-70); Platelet Count 203 K/mm3 (150-450); RBC Distribution Width CV 13.2 % (11.6-14.6); RBC Distribution Width SD 45.1 fl (35.1-43.9); Red Blood Count 3.95 M/mm3 (4.6-6.2); White Blood Count 6.3 K/mm3 (4.4-11.0)
--- NOTE | 2020-05-23 21:00 | RAD_ITS ---
HISTORY: FALL GETTING INTO SHOWER. RIGHT SHOULDER PAIN. Exam: 2 views of the right shoulder COMPARISON: Previous imaging of the right shoulder is apical 2017 FINDINGS: # of images incl. paperwork: 2 XR Shoulder Min 2 Views: The humeral head is well-positioned within the glenoid fossa. No fracture or subluxation. The acromioclavicular joint is widened, but this widening is similar to the previous study. There is some arthritis within the right shoulder. Lungs are hypoexpanded with pulmonary venous congestion. The adjacent chest is unremarkable. RAD/Shoulder min 2 Views IMPRESSION: Chronic widening to the right acromioclavicular joint is similar to the December 27, 2016 study. Right shoulder arthritis. at 2209 Reported and signed by: Cullen Almendarez MD Electronically Signed: Cullen Almendarez MD at 22:07 EDT Tel , Service support ,
[2020-05-23 21:06] LABS: ALB/GLOB Ratio 0.5 RATIO (0.9-2.4); AST(SGOT) 25 U/L (15-37); Alanine Aminotransfer ALT/SGPT 12 U/L (16-61); Albumin, Serum 2.1 g/dL (3.2-5.0); Alkaline Phosphatase 168 U/L (45-117); Anion Gap 5 (5-15); BUN 14 mg/dL (7-18); Calcium,Total 8.6 mg/dL (8.5-10.1); Chloride 109 mmol/L (98-107); Creatinine, Serum 1.76 mg/dL (0.70-1.30); EST Glomerular Filtration Rate 42 mL/min (>60); Est Glom Filt Rate - Afr Amer 51 mL/min (>60); Estimated Creatinine Clearance 45.19 ml/min; Globulin 3.9 g/dL (2.2-4.2); Glucose 138 mg/dL (74-106); Potassium 4.3 mmol/L (3.5-5.1); Sodium Level 143 mmol/L (136-145)
[2020-05-23 21:13] LABS: International Normalized Ratio 1.2; Prothrombin Time (Protime)PT. 14.2 SECONDS (11.7-14.9)
[2020-05-23 21:14] LABS: Partial Thromboplast Time 32.8 Seconds (24.1-36.2)
[2020-05-23] MEDS: HYDROmorphone 1 MG/ML Syringe IV ×2 (21:18→22:34)
--- NOTE | 2020-05-23 21:34 | ED.VISSUMM ---
- ER Visit Summary Date of Service: 05/23/20 Chief Complaint: Fall History of Present Illness: The patient is a [address] Uribe. He has a history of FELIPE and had a liver transplant through [facility] and follows up with the transplant team there. Patient reports that tonight he slipped while getting the shower and suffered a laceration to his right leg. Reports that he has pain there that is 10 on 10 severity. He denies any paresthesias distally. He did hit his head. No loss of consciousness. Is not on anticoagulants. He complains of left shoulder pain is 4-10 severity and neck pain is 3 out of 10 in severity. Physical Examination: Vitals: Stable. Afebrile. Neck: No vertebral tenderness. Full ROM without difficulty. Cleared by NEXUS criteria. Back: No vertebral tenderness. General: A&O x 3. NAD. Cardiovascular exam: Regular rate and rhythm, no murmur, rub or gallop. Respiratory exam: Chest nontender. No crepitus. Clear to auscultation bilaterally. No wheezes or stridor. Abdominal exam: Soft, nontender, nondistended, normal bowel sounds. No pain in RUQ or LUQ specifically. No peritoneal signs. Extremity: 21 cm laceration to the anterior and lateral right leg with exposed bone. He is neurovascular intact distally. He has a 2+ dorsalis pedis pulse. He has normal sensation light touch. He has mild tenderness palpation over his right shoulder. Good range of motion by difficulty. Is mild tenderness palpation over his left shoulder. Normal range of motion there as well. Test Results: CBC shows an H&H 12.1 and 37.0, stable neutrophils of 46, eosinophils of 6. Chem-7 shows a chloride of 109, creatinine 1.76, glucose 138. LFTs show an ALT of 12 and alk phos 168. Total protein is 6.0 and albumin is 2.1. INR is 1.2. PTT is 32.8. Right tib-fib x-ray shows no fracture. Left shoulder x-ray shows no fracture or dislocation. The hardware is intact. Right shoulder x-ray shows chronic changes. Emergency Department Course and Treatment: Patient's tetanus is up-to-date. He was given Dilaudid and fentanyl IV. He is given Ancef IV. I had a prolonged discussion about treatment options. This wound is large and gaping. I do not think that it can be closed in the emergency department. The bleeding was controlled while here. Treatment Plan: The patient was discussed with Dr. Law at [facility] and will be transferred there for further evaluation and treatment. Disposition: Transferred in improved condition. Impression: 1. Mechanical fall. 2. Right leg laceration, 21 cm, with exposed bone. 3. History of liver transplant. This note was generated with [employer] dictation software. It may contain incorrect words, spelling, and punctuation that were not noted in review of the chart prior to signing ED Disposition - Plan for ED Patient: Referrals: Raul Uribe MD [Primary Care Provider] -
[2020-05-23 21:46] VITALS: BP 112/65; PULSE 58; RESP 18; O2SAT 99
[2020-05-23] MEDS: Cefazolin 2 GM in 0.9% Normal Saline 100 ML IV (22:03)
[2020-05-23 22:34] VITALS: BP 137/73; PULSE 61; RESP 18; O2SAT 99
[2020-05-23 23:05] VITALS: BP 137/73; PULSE 60; RESP 18; O2SAT 98
== END 2020-05-23 23:00 | disposition short-term general hospital (02) ==
LOC: ED 20:55
PROVIDERS: Emergency Provider Emergency Medicine; PCP Family Medicine
DX: S81.811A Laceration without foreign body, right lower leg, initial encounter (principal); M25.512 Pain in left shoulder; M54.2 Cervicalgia; W18.2XXA Fall in (into) shower or empty bathtub, initial encounter; Y93.E1 Activity, personal bathing and showering; Y92.9 Unspecified place or not applicable; Y99.9 Unspecified external cause status; K75.81 Nonalcoholic steatohepatitis (NASH); I25.10 Atherosclerotic heart disease of native coronary artery without angina pectoris; I48.0 Paroxysmal atrial fibrillation; Z94.4 Liver transplant status; Z79.899 Other long term (current) drug therapy
CPT/HCPCS: 73030; 73590; 80053; 85025; 85610; 85730; 86850; 86900; 86901; 96365; 96375; 96376; 99285; J7050; A4216

== ENCOUNTER → 2020-11-07 14:42 | Outpatient (CLI) | payer MEDICARE, SELFPAY ==
[2020-11-07 16:50] LABS: Amphetamine Urine VISTA NEGATIVE (<1000 ng/mL); Barbiturate Urine VISTA NEGATIVE (< 200 ng/mL); Benzodiazepine Urine VISTA NEGATIVE (< 200 ng/mL); Cocaine Urine VISTA NEGATIVE (< 300 ng/mL); Ecstacy Urine VISTA NEGATIVE (< 500 ng/mL); Methadone Urine VISTA NEGATIVE (< 300 ng/mL); PCP Urine VISTA NEGATIVE (< 25 ng/mL); THC Urine VISTA NEGATIVE (< 50 ng/mL); Vista UDS pH Range 6
== END ==
PROVIDERS: PCP Family Medicine; Visit Provider Anesthesiology Pain Medicine
DX: F11.20 Opioid dependence, uncomplicated (principal)
CPT/HCPCS: 80307

== ENCOUNTER 2020-12-29 17:17 | Observation (INO) | payer MEDICARE, SELFPAY ==
[2020-12-29] VITALS (7 sets, daily range): BP systolic 113–133; BP diastolic 64–79; PULSE 71–84; RESP 15–19; TEMP 36.7–36.9; O2SAT 97–100; BMI 48.9; BMI 49.0
--- NOTE | 2020-12-29 18:18 | EKG12_ITS ---
Test Reason : SOB Blood Pressure : / mmHG Vent. Rate : 074 BPM Atrial Rate : 074 BPM P-R Int : 192 ms QRS Dur : 102 ms QT Int : 438 ms P-R-T Axes : 028 -24 024 degrees QTc Int : 486 ms Normal sinus rhythm Prolonged QT Abnormal ECG Confirmed by CARLA SHIPMAN, SUGAR ([id number]), publications editor JULIO CÉSAR SOLORIO ([id number]) on 01/02/2021 12:28:15 PM Referred By: ESTER Confirmed By:SUGAR AGUIRRE MD
--- NOTE | 2020-12-29 18:20 | ED.DCSUM_ITS ---
HPI History of Present Illness Chief Complaint: Shortness of Breath Narrative Narrative: Patient presents with shortness of breath for the past 2 days. He tells me this feels like his prior CHF however he does not have orthopnea or any worsening edema or weight gain. He also has no cough, fever chills. He is also complaining of some chest pain. It is achy and pressure-like. He has no back pain or tearing sensation he has no pleuritic component. He has had both of his Covid vaccines. He has a history of nonalcoholic cirrhosis status post liver transplant. Past medical history: Reviewed in the computer system, includes vertigo, atrial fibrillation, renal insufficiency SVT nonalcoholic cirrhosis status post transplant, obesity, anemia, and other Medications: Reviewed Social history: Noncontributory Review of systems: All systems negative except as indicated General: No fever Eyes: No visual changes ENT: No upper airway congestion, normal voice Neck: No neck pain Cardiovascular: Chest pain as in HPI Respiratory: Shortness of breath as in HPI Gastrointestinal: No abdominal pain, nausea vomiting or diarrhea Genitourinary: No dysuria Musculoskeletal: Chronic lower extremity edema but no change Skin: No rash Neurological: No memory loss, confusion or any focal weakness Psych: No recent behavioral changes Hematologic: No easy bleeding or easy bruising [facility] Medical History (Updated 12/29/20 @ 19:[address] Kevin Little MD) Atrial fibrillation Cirrhosis Congestive heart failure (CHF) Coronary artery disease Kidney disease Home Medications aspirin [Adult Low Dose Aspirin] 81 mg PO DAILY 10/21/15 [History Last Taken 05/01/19] sulfamethoxazole-trimethoprim 1 tab PO DAILY 08/08/17 [History Last Taken 05/01/19] tacrolimus [Prograf] 250 mg PO BID 07/24/18 [History Last Taken 05/01/19] magnesium oxide 400 mg PO DAILY #1 tablet 10/24/18 [Rx Last Taken 05/01/19] ferrous sulfate 325 mg PO DAILY 12/25/18 [History Last Taken 05/01/19] alprazolam 0.5 mg PO DAILY PRN 04/07/19 [History Last Taken 04/03/19] cholecalciferol (vitamin D3) 1,250 unit PO DAILY 04/07/19 [History Last Taken 05/01/19] fluoxetine 20 mg PO DAILY 04/07/19 [History Last Taken 05/01/19] ursodiol 250 mg PO TID 04/07/19 [History Last Taken 05/01/19] metoprolol tartrate 50 mg PO BID 05/23/20 [History Last Taken Unknown] torsemide 40 mg PO QODAY 05/23/20 [History Last Taken Unknown] oxycodone 10 mg PO Q6H PRN PRN 12/29/20 [History Last Taken Unknown] Allergy/AdvReac Type Severity Reaction Status Date / Time pravastatin [From Pravachol] Allergy Hives Verified 05/23/20 20:25 [id number] Reductase Allergy Hives Verified 05/23/20 20:25 Inhibitor vancomycin Allergy NEEDS Verified 05/23/20 20:25 FOLLOW-UP zolpidem tartrate Allergy Hives Verified 05/23/20 20:25 [From Ambien] everolimus AdvReac Swelling Verified 05/23/20 20:25 gabapentin AdvReac NEEDS Verified 05/23/20 20:25 FOLLOW-UP Social History Smoking Status: Never smoker EXAM Physical Exam Narrative Exam Narrative: Physical exam General: Patient appears chronically ill. BMI is 48. Head: Normocephalic, Atraumatic Eyes: Conjunctiva not pale ENT: Moist mucous membranes Neck: Supple, Nontender, No lymphadenopathy Cardiovascular: Regular rate, Regular rhythm. I did auscultate in all 4 points and did not hear any murmur. Respiratory: Coarse bilateral breath sounds but no obvious rhonchi. He is speaking in full sentences he is slightly tachypneic. He has normal saturation. Abdomen: Soft, Nontender, Nondistended Back: Nontender, Normal Inspection. Negative for: CVA tenderness Extremities: Nontender, bilateral lower extremity edema without any signs of cellulitis. Edema symmetric Skin: Normal color, No rash Neurological: Alert, Normal Strength, Normal Sensation Psychological: Normal affect Const Vital Signs: 12/29/20 17:18 12/29/20 18:22 12/29/20 18:31 Temperature 98.2 F Temperature Source Temporal Pulse Rate 71 76 Respiratory Rate 18 18 Respiratory Effort Non-Labored Short of Breath Respiratory Depth Normal Respiratory Pattern Normal Blood Pressure 122/79 H Blood Pressure Mean 93 Pulse Ox 99 Oxygen Delivery Method Room Air 12/29/20 19:17 Temperature Temperature Source Pulse Rate 84 Respiratory Rate 15 Respiratory Effort Respiratory Depth Respiratory Pattern Blood Pressure 127/72 H Blood Pressure Mean 90 Pulse Ox 98 Oxygen Delivery Method Room Air MDM MDM MDM Narrative Medical decision making narrative: Patient is not found to be in CHF however he has chest pain with shortness of breath the pain is pressure he has an elevated troponin and this is different from his prior troponins. Because of this I will admit him to the hospital. Lab Data Labs: Laboratory Results - last 24 hr 12/29/20 12/29/20 12/29/20 18:30 18:30 18:30 WBC 6.3 RBC 4.47 L Hgb 13.3 Hct 39.0 L MCV 87.2 MCH 29.8 MCHC 34.1 RDW Std Deviation 44.2 H RDW Coeff of Maciel 13.9 Plt Count 289 MPV 9.5 Immature Gran % (Auto) 0.300 Neut % (Auto) 62.2 Lymph % (Auto) 25.8 Liberty % (Auto) 8.4 Eos % (Auto) 2.5 Baso % (Auto) 0.8 Absolute Neuts (auto) 3.9 Absolute Lymphs (auto) 1.62 Nucleated RBC % 0 Sodium 138 Potassium 3.1 L Chloride 102 Carbon Dioxide 30.0 Anion Gap 6 BUN 23 H Creatinine 2.54 H Estim Creat Clear Calc 31.93 Est GFR (MDRD) Af Amer 33 L Est GFR (MDRD) Non-Af 28 L BUN/Creatinine Ratio 9.1 L Glucose 135 H Calcium 9.3 Total Bilirubin 1.20 H AST 26 ALT 17 Alkaline Phosphatase 166 H Troponin I 0.239 H B-Natriuretic Peptide 66.8 Total Protein 7.1 Albumin 2.8 L Globulin 4.3 H Albumin/Globulin Ratio 0.7 L Radiography Chest X-Ray - ED: 1 View, Read by ED Physician, Read by Radiologist and Normal Diagnostic Testing: Radiology Impression Chest X-Ray 12/29/20 18:40 IMPRESSION: No definite acute or significant abnormality seen. Electronically Signed: Karl Bailon MD at 18:59 EDT , Service support , EKG Initial EKG: Comments: Sinus rhythm with a rate of 74. Normal MA interval. QTC is 486. No obvious ischemic changes. Otherwise unremarkable EKG. Interpreted by emergency doctor Discharge Plan Triage Chief Complaint: Shortness of Breath ED Provider: Kevin Little Dx/Rx/DC Orders Clinical Impression: Elevated troponin Prescriptions: No Action aspirin [Adult Low Dose Aspirin] 81 MG tablet,delayed release (DR/EC) 81 mg PO DAILY RF: 0 sulfamethoxazole-trimethoprim 1 TABLET tablet 1 tab PO DAILY RF: 0 tacrolimus [Prograf] 0.5 MG capsule 250 mg PO BID RF: 0 magnesium oxide 400 MG tablet 400 mg PO DAILY Qty: 1 RF: 0 ferrous sulfate 325 MG tablet 325 mg PO DAILY RF: 0 cholecalciferol (vitamin D3) 5,000 UNIT capsule 1,250 unit PO DAILY RF: 0 alprazolam 0.5 MG tablet 0.5 mg PO DAILY PRN (Reason: Anxiety) RF: 0 fluoxetine 20 MG capsule 20 mg PO DAILY RF: 0 ursodiol 250 MG tablet 250 mg PO TID RF: 0 torsemide 20 MG tablet 40 mg PO QODAY RF: 0 metoprolol tartrate 25 MG tablet 50 mg PO BID RF: 0 oxycodone 5 MG tablet 10 mg PO Q6H PRN PRN (Reason: Pain) RF: 0 Primary Care Provider: Raul Uribe Referrals: Raul Uribe MD [Primary Care Provider] - Disposition Disposition: Acute Care Hospital [facility]
[2020-12-29] MEDS: Ipratropium/Albuterol Sulfate 3 ML AMPUL.NEB INHALATION (18:30)
[2020-12-29 18:37] LABS: Absolute Lymphocyte Count 1.62 X10^3/uL (0.83-4.51); Absolute Neutrophil Count 3.9 X10^3/uL (2.0-7.7); Basophil# 0.05 X10^3/uL; Basophil% 0.8 % (0-1); Eosinophil# 0.16 X10^3/uL; Eosinophils% 2.5 % (0-5); Hemoglobin 13.3 g/dL (13.0-16.5); Lymphocyte # 1.62 X10^3/ul (0.83-4.51); Lymphocyte % 25.8 % (19-41); Mean Corp Hgb Conc 34.1 g/dL (32-36); Mean Corpuscular Hgb 29.8 pg (27.0-32.0); Mean Corpuscular Volume 87.2 fL (80-94); Mean Platelet Vol. 9.5 fl (6.2-12.0); Monocyte# 0.53 X10^3/uL; Monocyte% 8.4 % (0-10); NRBC Flagged by Analyzer 0 % (0-5); Neutrophil # 3.91 X10^3/uL (2.7-7.7); Neutrophil % 62.2 % (47-70); Platelet Count 289 K/mm3 (150-450); RBC Distribution Width CV 13.9 % (11.6-14.6); RBC Distribution Width SD 44.2 fl (35.1-43.9); Red Blood Count 4.47 M/mm3 (4.6-6.2); White Blood Count 6.3 K/mm3 (4.4-11.0)
--- NOTE | 2020-12-29 18:40 | RAD_ITS ---
STUDY: X-RAY CHEST REASON FOR EXAM: Male, 60 years old. sob TECHNIQUE: Single AP portable view of the chest. COMPARISON: 05/17/2019. FINDINGS: The lungs are clear and expanded. There is no demonstrated pleural abnormality. Normal size heart. Normal mediastinum and debora. Normal visualized pulmonary arteries. Normal visualized aortic arch and descending thoracic aorta. Normal visualized thoracic spine. There is a left shoulder arthroplasty. There is no demonstrated abnormality of the visualized soft tissue structures of the upper abdomen. RAD/Chest 1 View (Portable) IMPRESSION: No definite acute or significant abnormality seen. Electronically Signed: Karl Bailon MD at 18:59 EDT , Service support ,
[2020-12-29 18:56] LABS: ALB/GLOB Ratio 0.7 RATIO (0.9-2.4); AST(SGOT) 26 U/L (15-37); Alanine Aminotransfer ALT/SGPT 17 U/L (16-61); Albumin, Serum 2.8 g/dL (3.2-5.0); Alkaline Phosphatase 166 U/L (45-117); Anion Gap 6 (5-15); BUN 23 mg/dL (7-18); BUN/Creat Ratio 9.1 RATIO (10-20); Calcium,Total 9.3 mg/dL (8.5-10.1); Chloride 102 mmol/L (98-107); Creatinine, Serum 2.54 mg/dL (0.70-1.30); EST Glomerular Filtration Rate 28 mL/min (>60); Est Glom Filt Rate - Afr Amer 33 mL/min (>60); Estimated Creatinine Clearance 31.93 ml/min; Globulin 4.3 g/dL (2.2-4.2); Glucose 135 mg/dL (74-106); Potassium 3.1 mmol/L (3.5-5.1); Protein, Total 7.1 g/dL (6.4-8.2); Sodium Level 138 mmol/L (136-145)
[2020-12-29 19:00] LABS: BNP,B-Type NATRIURETIC PEPTIDE 66.8 pg/mL (0-100)
--- NOTE | 2020-12-29 20:30 | PCM.HP.STD ---
[facility] - General General Date of Admission: 12/29/20 HPI Narrative ESTEFANIA MILLER, is a 60 M with a significant history of obesity; congestive heart failure alpha 1 antitrypsin deficiency; and [place] cirrhosis status post liver transplant who presents to the emergency department with intermittent left-sided moderately severe nonradiating chest pain that started 3 days before presentation. His chest pain increases with exertion and improves with rest. Associated with his symptoms is dyspnea on exertion. Also he complains of multiple joints pain. He reports of swelling in his extremities in the past 3 months; this is no change. He reports about 3 pounds weight gain in the last 3 days. He denies orthopnea; or paroxysmal nocturnal dyspnea.[facility] Medical History Atrial fibrillation Cirrhosis Congestive heart failure (CHF) Coronary artery disease Kidney disease Home Medications aspirin [Adult Low Dose Aspirin] 81 mg PO DAILY 10/21/15 [History Last Taken 05/01/19] sulfamethoxazole-trimethoprim 1 tab PO DAILY 08/08/17 [History Last Taken 05/01/19] tacrolimus [Prograf] 250 mg PO BID 07/24/18 [History Last Taken 05/01/19] magnesium oxide 400 mg PO DAILY #1 tablet 10/24/18 [Rx Last Taken 05/01/19] ferrous sulfate 325 mg PO DAILY 12/25/18 [History Last Taken 05/01/19] alprazolam 0.5 mg PO DAILY PRN 04/07/19 [History Last Taken 04/03/19] cholecalciferol (vitamin D3) 1,250 unit PO DAILY 04/07/19 [History Last Taken 05/01/19] fluoxetine 20 mg PO DAILY 04/07/19 [History Last Taken 05/01/19] ursodiol 250 mg PO TID 04/07/19 [History Last Taken 05/01/19] metoprolol tartrate 50 mg PO BID 05/23/20 [History Last Taken Unknown] torsemide 40 mg PO QODAY 05/23/20 [History Last Taken Unknown] oxycodone 10 mg PO Q6H PRN PRN 12/29/20 [History Last Taken Unknown] Allergy/AdvReac Type Severity Reaction Status Date / Time pravastatin [From Pravachol] Allergy Hives Verified 05/23/20 20:25 Yqgrsdw-Clw-Pai Reductase Allergy Hives Verified 05/23/20 20:25 Inhibitor vancomycin Allergy NEEDS Verified 05/23/20 20:25 FOLLOW-UP zolpidem tartrate Allergy Hives Verified 05/23/20 20:25 [From Jair] everolimus AdvReac Swelling Verified 05/23/20 20:25 gabapentin AdvReac NEEDS Verified 05/23/20 20:25 FOLLOW-UP lactulose AdvReac Upset Verified 12/29/20 21:44 Stomach Family History Mother Heart disease Father Heart disease Surgical History H/O shoulder surgery History of hip surgery Social History Smoking Status: Never smoker ROS Constitutional Constitutional: Reports malaise Eyes Eyes: Denies change in eye color or double vision ENT HEENT: Denies abnormal hearing or dysphagia Cardiovascular Cardiovascular: Reports chest pain, dyspnea on exertion and lightheadedness Respiratory/Chest Respiratory/Chest: Denies cough or dyspnea Gastrointestinal Gastrointestinal: Denies abdominal pain or coffee ground emesis Genitourinary Genitourinary: Denies burning urination or difficulty urinating Musculoskeletal Musculoskeletal: Reports arthralgias and joint pain Neurologic Neurologic: Denies confusion or disequilibrium Psychiatric Psychiatric: Denies anxiety or depression Vital Signs Vital Signs Vital Signs: 12/29/20 17:18 12/29/20 18:22 12/29/20 18:31 Temperature 98.2 F Temperature Source Temporal Pulse Rate 71 76 Respiratory Rate 18 18 Respiratory Effort Non-Labored Short of Breath Respiratory Depth Normal Respiratory Pattern Normal Blood Pressure 122/79 H Blood Pressure Mean 93 Pulse Ox 99 Oxygen Delivery Method Room Air 12/29/20 19:17 Temperature Temperature Source Pulse Rate 84 Respiratory Rate 15 Respiratory Effort Respiratory Depth Respiratory Pattern Blood Pressure 127/72 H Blood Pressure Mean 90 Pulse Ox 98 Oxygen Delivery Method Room Air Physical Exam Narrative Alert and oriented x3 Nontraumatic; normocephalic Lung clear to auscultate Heart sounds S1-S2. No murmur, gallop or rubs. Abdomen bowel sounds present soft, nontender nondistended Extremity with edema in bilateral feet. Const alert and oriented x3 General Appearance: cooperative Eyes PERRL, EOMs intact bilaterally and conjunctivae normal Neck supple, no JVD and no carotid bruits Resp normal respiratory effort and clear to auscultation bilaterally Cardio regular rate, regular rhythm and no murmurs GI normal to inspection, nondistended, normoactive bowel sounds, soft to palpation, non-tender and non-distended Extremity no clubbing, cyanosis or edema Skin no rashes or lesions noted and no wounds Neuro CN's II-XII intact bilaterally Psych affect normal Appearance: appropriate Lab / Micro Data Result Diagrams: 12/29/20 18:30 12/29/20 18:30 Labs: Laboratory Results - last 24 hr 12/29/20 12/29/20 12/29/20 18:30 18:30 18:30 WBC 6.3 RBC 4.47 L Hgb 13.3 Hct 39.0 L MCV 87.2 MCH 29.8 MCHC 34.1 RDW Std Deviation 44.2 H RDW Coeff of Maciel 13.9 Plt Count 289 MPV 9.5 Immature Gran % (Auto) 0.300 Neut % (Auto) 62.2 Lymph % (Auto) 25.8 Churchill % (Auto) 8.4 Eos % (Auto) 2.5 Baso % (Auto) 0.8 Absolute Neuts (auto) 3.9 Absolute Lymphs (auto) 1.62 Nucleated RBC % 0 Sodium 138 Potassium 3.1 L Chloride 102 Carbon Dioxide 30.0 Anion Gap 6 BUN 23 H Creatinine 2.54 H Estim Creat Clear Calc 31.93 Est GFR (MDRD) Af Amer 33 L Est GFR (MDRD) Non-Af 28 L BUN/Creatinine Ratio 9.1 L Glucose 135 H Calcium 9.3 Total Bilirubin 1.20 H AST 26 ALT 17 Alkaline Phosphatase 166 H Troponin I 0.239 H B-Natriuretic Peptide 66.8 Total Protein 7.1 Albumin 2.8 L Globulin 4.3 H Albumin/Globulin Ratio 0.7 L Micro: Microbiology 12/29/20 18:20 SARS-CoV-2 Antigen (Rapid) - Final Nasal Secretion Radiology Impression Chest X-Ray 12/29/20 18:40 IMPRESSION: No definite acute or significant abnormality seen. Electronically Signed: Karl Bailon MD at 18:59 EDT , Service support , Assessment & Plan Assessment/Plan (1) Chest pain: Status: Acute Code(s): R07.9 - Chest pain, unspecified Qualifiers: Chest pain type: unspecified Qualified Code(s): R07.9 - Chest pain, unspecified (2) Elevated troponin: Status: Acute Code(s): R77.8 - Other specified abnormalities of plasma proteins (3) Chronic renal failure, stage 3 (moderate): Status: Chronic Code(s): N18.3 - Chronic kidney disease, stage 3 (moderate) Qualifiers: Chronic kidney disease stage 3 subtype: stage 3b (GFR 30-44) Qualified Code(s): N18.32 - Chronic kidney disease, stage 3b (4) Acute kidney injury superimposed on chronic kidney disease: Status: Resolved Code(s): N17.9 - Acute kidney failure, unspecified; N18.9 - Chronic kidney disease, unspecified Plan: Place on a monitored bed at PCU Actual CXR image was independently visualized. No acute cardiopulmonary process was noted. Actual EKG tracing was independently visualized. EKG tracing showed normal sinus rhythm with QTC prolongation ASA 81 mg p.o. daily ordered Nitroglycerin patch placed at emergency department;continue We will check lipid panel. Initial cardiac enzymes in the indeterminate range; trend Stat EKG as needed for chest pain Stress test in the AM if the cardiac enzymes are negative. Check echocardiogram Creatinine is elevated above baseline. Hold home diuretics. Gentle IV hydration BMI of 48.9 kg per meter square. Complicates care. Lifestyle modification recommended. DVT prophylaxis ordered. OBSV E&M: 47669 Initial observation care L3
[2020-12-29] MEDS: Nitroglycerin 0.2 MG Patch TD (20:45)
--- NOTE | 2020-12-29 21:19 | EKG12_ITS ---
Test Reason : CP ADMISSION Blood Pressure : / mmHG Vent. Rate : 078 BPM Atrial Rate : 078 BPM P-R Int : 190 ms QRS Dur : 092 ms QT Int : 420 ms P-R-T Axes : 038 -29 025 degrees QTc Int : 478 ms Sinus rhythm with Premature atrial complexes Low voltage QRS (Limb Leads) Confirmed by CARLA SHIPMAN, SUGAR ([id number]), electronic news gathering editor JULIO CÉSAR SOLORIO ([id number]) on 01/02/2021 12:33:00 PM Referred By: MINNIE Confirmed By:SUGAR AGUIRRE MD
--- NOTE | 2020-12-29 21:19 | ECHOCS_ITS ---
Reason For Study: CHEST PAIN Procedure This was a 2D Doppler, Color Flow transthoracic echocardiogram. The study was technically limited. Limited views were obtained. Due to body habitus. Able to obtain limited parasternal views only. Contrast injection was performed. Exam performed portable in patient room. Left Ventricle Normal left ventricle. The estimated ejection fraction is EF 55-60% %. Right Ventricle Normal RV size. Normal systolic function. Atria Normal left atrium. Pericardium/Pleural No pericardial effusion. Medication Diluted definity 4.0ml given slow IV push to enhance endocardial definition. MMode/2D Measurements & Calculations LVIDd: 5.0 cm IVSd: 1.4 cm Ao root diam: 4.1 cm LVIDs: 3.3 cm LVPWd: 1.4 cm FS: 34.3 % LA dimension(2D): 3.4 cm Doppler Measurements & Calculations PA V2 max: 118.3 cm/sec ECHO/Echo Limited w/Contrast Interpretation Summary The estimated ejection fraction is EF 55-60% %. Limited 2 D echo secondary to TDS Over all LV systolic function is Normal Definity /contrast echo used,Normal Wall motion and Thickness Ordering Physician: Jaciel Spivey Referring Physician: Raul Uribe Performed By: Luz Bassett, MARYCS, RVT
[2020-12-29] MEDS: Potassium Chloride Oral Tablet 20 MEQ 40 MEQ PO (23:10)
[2020-12-29] MEDS: 0.9% Saline Lock 10 ML Syringe IV (23:10)
[2020-12-29] MEDS: 0.9% Normal Saline 1,000 ML 75 ML IV (23:11)
[2020-12-29] MEDS: Ferrous Sulfate 325 MG Tablet PO (23:11)
[2020-12-29] MEDS: Aspirin E.C. 81 MG Tablet PO (23:11)
[2020-12-29] MEDS: Cholecalciferol (VIT D3) 25 MCG TABLET (1,000 UNITS) PO (23:11)
[2020-12-29] MEDS: Ursodiol 250 MG Tablet PO (23:11)
[2020-12-29] MEDS: oxyCODONE 5 MG Tablet 10 MG PO (23:13)
[2020-12-30] VITALS (12 sets, daily range): BP systolic 105–142; BP diastolic 42–70; PULSE 72–204; RESP 14–21; TEMP 36.6–36.8; O2SAT 96–100
[2020-12-30] MEDS: Acetaminophen 325 MG Tablet 650 MG PO (00:59)
[2020-12-30] MEDS: Ursodiol 250 MG Tablet PO ×3 (05:33→21:07)
--- NOTE | 2020-12-30 05:55 | EKG12_ITS ---
Test Reason : AM EKG Blood Pressure : / mmHG Vent. Rate : 068 BPM Atrial Rate : 068 BPM P-R Int : 182 ms QRS Dur : 098 ms QT Int : 444 ms P-R-T Axes : 026 -34 028 degrees QTc Int : 472 ms Normal sinus rhythm Left axis deviation Low voltage QRS Abnormal ECG Confirmed by CARLA SHIPMAN, SUGAR ([id number]), health editor JULIO CÉSAR SOLORIO ([id number]) on 01/02/2021 12:32:08 PM Referred By: DR MAGALLON Confirmed By:SUGAR AGUIRRE MD
[2020-12-30 06:18] LABS: Basophil# 0.04 X10^3/uL; Basophil% 0.7 % (0-1); Eosinophil# 0.26 X10^3/uL; Eosinophils% 4.4 % (0-5); Hematocrit 33.3 % (40-54); Hemoglobin 11.6 g/dL (13.0-16.5); Mean Corp Hgb Conc 34.8 g/dL (32-36); Mean Corpuscular Hgb 30.9 pg (27.0-32.0); Mean Corpuscular Volume 88.6 fL (80-94); Mean Platelet Vol. 9.8 fl (6.2-12.0); Monocyte# 0.57 X10^3/uL; Monocyte% 9.7 % (0-10); NRBC Flagged by Analyzer 0 % (0-5); Platelet Count 260 K/mm3 (150-450); RBC Distribution Width CV 14.1 % (11.6-14.6); RBC Distribution Width SD 45.2 fl (35.1-43.9); Red Blood Count 3.76 M/mm3 (4.6-6.2); White Blood Count 5.9 K/mm3 (4.4-11.0)
[2020-12-30 06:52] LABS: Anion Gap 7 (5-15); BUN 25 mg/dL (7-18); BUN/Creat Ratio 10.8 RATIO (10-20); Calcium,Total 8.6 mg/dL (8.5-10.1); Chloride 106 mmol/L (98-107); Cholesterol 179 mg/dL (200); Creatinine, Serum 2.32 mg/dL (0.70-1.30); EST Glomerular Filtration Rate 31 mL/min (>60); Est Glom Filt Rate - Afr Amer 37 mL/min (>60); Estimated Creatinine Clearance 34.96 ml/min; Glucose 114 mg/dL (74-106); High Density Lipoprotein 35 mg/dL; Potassium 2.9 mmol/L (3.5-5.1); Sodium Level 141 mmol/L (136-145); Triglycerides 97 mg/dL; Very Low Density Lipoprotein 19 mg/dL (5-40)
[2020-12-30] MEDS: oxyCODONE 5 MG Tablet 10 MG PO ×3 (08:35→21:11)
[2020-12-30] MEDS: FLUoxetine 20 MG Capsule PO (08:36)
[2020-12-30] MEDS: Smz/Tmp Ds Tablet 1 TABLET PO (08:36)
[2020-12-30] MEDS: Magnesium Chloride 64 MG Delay Rel.Tablet 128 MG PO (08:36)
--- NOTE | 2020-12-30 08:47 | PCM.PN.HOSP ---
Subjective Subjective: No SOB, nor chest pressure at this time. Has been having PINEDO with dizziness. Objective Data Objective Data Vital Signs: Vital Signs Temp Pulse Resp BP Pulse Ox 36.7 C 72 16 124/69 H 97 12/30/20 08:35 12/30/20 08:35 12/30/20 08:35 12/30/20 08:35 12/30/20 08:35 Oxygen Delivery Method Room Air Weight: 155.1 kg Body Mass Index (BMI) 49.0 Finger Stick Blood Glucose 124 Intake & Output: Intake and Output for Last 24 Hours 12/28/20 12/29/20 12/30/20 23:59 23:59 23:59 Intake Total 240 / 240 Output Total 125 / 125 Balance 115 / 115 Lab / Micro Data Result Diagrams: 12/30/20 05:25 12/30/20 05:25 Labs: Laboratory Results - last 24 hr 12/29/20 12/29/20 12/29/20 18:30 18:30 18:30 WBC 6.3 RBC 4.47 L Hgb 13.3 Hct 39.0 L MCV 87.2 MCH 29.8 MCHC 34.1 RDW Std Deviation 44.2 H RDW Coeff of Maciel 13.9 Plt Count 289 MPV 9.5 Immature Gran % (Auto) 0.300 Neut % (Auto) 62.2 Lymph % (Auto) 25.8 Gilchrist % (Auto) 8.4 Eos % (Auto) 2.5 Baso % (Auto) 0.8 Absolute Neuts (auto) 3.9 Absolute Lymphs (auto) 1.62 Nucleated RBC % 0 Sodium 138 Potassium 3.1 L Chloride 102 Carbon Dioxide 30.0 Anion Gap 6 BUN 23 H Creatinine 2.54 H Estim Creat Clear Calc 31.93 Est GFR (MDRD) Af Amer 33 L Est GFR (MDRD) Non-Af 28 L BUN/Creatinine Ratio 9.1 L Glucose 135 H Calcium 9.3 Total Bilirubin 1.20 H AST 26 ALT 17 Alkaline Phosphatase 166 H Troponin I 0.239 H B-Natriuretic Peptide 66.8 Total Protein 7.1 Albumin 2.8 L Globulin 4.3 H Albumin/Globulin Ratio 0.7 L Triglycerides Cholesterol LDL Cholesterol VLDL Cholesterol HDL Cholesterol 12/29/20 12/30/20 12/30/20 22:23 01:05 05:25 WBC 5.9 RBC 3.76 L Hgb 11.6 L Hct 33.3 L MCV 88.6 MCH 30.9 MCHC 34.8 RDW Std Deviation 45.2 H RDW Coeff of Maciel 14.1 Plt Count 260 MPV 9.8 Immature Gran % (Auto) 0.200 Neut % (Auto) 51.0 Lymph % (Auto) 34.0 Gilchrist % (Auto) 9.7 Eos % (Auto) 4.4 Baso % (Auto) 0.7 Absolute Neuts (auto) 3.0 Absolute Lymphs (auto) 2.00 Nucleated RBC % 0 Sodium Potassium Chloride Carbon Dioxide Anion Gap BUN Creatinine Estim Creat Clear Calc Est GFR (MDRD) Af Amer Est GFR (MDRD) Non-Af BUN/Creatinine Ratio Glucose Calcium Total Bilirubin AST ALT Alkaline Phosphatase Troponin I 0.218 H 0.208 H B-Natriuretic Peptide Total Protein Albumin Globulin Albumin/Globulin Ratio Triglycerides Cholesterol LDL Cholesterol VLDL Cholesterol HDL Cholesterol 12/30/20 05:25 WBC RBC Hgb Hct MCV MCH MCHC RDW Std Deviation RDW Coeff of Maciel Plt Count MPV Immature Gran % (Auto) Neut % (Auto) Lymph % (Auto) Gilchrist % (Auto) Eos % (Auto) Baso % (Auto) Absolute Neuts (auto) Absolute Lymphs (auto) Nucleated RBC % Sodium 141 Potassium 2.9 L Chloride 106 Carbon Dioxide 28.0 Anion Gap 7 BUN 25 H Creatinine 2.32 H Estim Creat Clear Calc 34.96 Est GFR (MDRD) Af Amer 37 L Est GFR (MDRD) Non-Af 31 L BUN/Creatinine Ratio 10.8 Glucose 114 H Calcium 8.6 Total Bilirubin AST ALT Alkaline Phosphatase Troponin I B-Natriuretic Peptide Total Protein Albumin Globulin Albumin/Globulin Ratio Triglycerides 97 Cholesterol 179 LDL Cholesterol 125 VLDL Cholesterol 19 HDL Cholesterol 35 L Micro: Microbiology 12/29/20 18:20 Nasal Secretion SARS-CoV-2 Antigen (Rapid) - Final Radiography Diagnostic Testing: Radiology Impression Chest X-Ray 12/29/20 18:40 IMPRESSION: No definite acute or significant abnormality seen. Electronically Signed: Karl Bailon MD at 18:59 EDT , Service support , Physical Exam Const alert Exam Limitations: no limitations HEENT Head and Scalp: normocephalic Resp normal respiratory effort, no retractions and no use of accessory muscles Cardio regular rate, regular rhythm, S1 normal heart sound and S2 normal heart sound Assessment & Plan Assessment/Plan (1) Chest pain: Status: Acute Code(s): R07.9 - Chest pain, unspecified Qualifiers: Chest pain type: unspecified Qualified Code(s): R07.9 - Chest pain, unspecified Plan: elevated troponin up to 0.2. Will recheck DC stress test currently asymptomatic at this time. troponin down slightly to 0.208 DW Cardiology, and we both agree given his liver transplant status, that he would be best evaluated at [facility], where is transplant team is available. DW transfer line at [facility] and provided information. Awaiting on acceptance, but informed they are at capacity, so transfer will be delayed. DW patient and he understands the need for transfer. Greater than 35 minutes of which greater than 50% of the time was discussing the case with patient, cardiology and [facility] about transfer. (2) Liver transplant recipient: Status: Chronic Code(s): Z94.4 - Liver transplant status Plan: Adds complexity. No GI coverage at this facility. Continue with Bactrim, tacrolimus (3) Chronic renal failure, stage 3 (moderate): Status: Chronic Code(s): N18.3 - Chronic kidney disease, stage 3 (moderate) Qualifiers: Chronic kidney disease stage 3 subtype: stage 3b (GFR 30-44) Qualified Code(s): N18.32 - Chronic kidney disease, stage 3b Plan: CKD 3b stable avoid nephrotoxic agents OBSV E&M: 14740 Subsequent observation care L3
[2020-12-30] MEDS: 0.9% Normal Saline 1,000 ML 75 ML IV ×2 (11:16→23:07)
--- NOTE | 2020-12-30 13:51 | EKG12_ITS ---
Test Reason : Blood Pressure : / mmHG Vent. Rate : 080 BPM Atrial Rate : 080 BPM P-R Int : 186 ms QRS Dur : 098 ms QT Int : 416 ms P-R-T Axes : 058 -36 034 degrees QTc Int : 479 ms Sinus rhythm with Premature atrial complexes Left axis deviation Abnormal ECG Confirmed by CARLA SHIPMAN, SUGAR ([id number]), editor trade journal JULIO CÉSAR SOLORIO ([id number]) on 01/03/2021 11:22:47 AM Referred By: ROWDY Confirmed By:SUGAR AGUIRRE MD
[2020-12-30] MEDS: proCHLORPERazine 10 MG/2 ML Vial 5 MG IV (13:52)
[2020-12-30] MEDS: 0.9% Saline Lock 10 ML Syringe IV (13:52)
[2020-12-30] MEDS: Potassium Chloride Oral Tablet 20 MEQ 40 MEQ PO ×2 (14:16→14:18)
--- NOTE | 2020-12-30 16:49 | CASEMGMT ---
According to [facility] website, the following tertiary facilities are in network: [facility], [place], [facility], [facility], [facility], [place], [facility] and .
[2020-12-30 17:11] LABS: Magnesium 2.1 mg/dL (1.6-2.6)
--- NOTE | 2020-12-30 20:35 | NURSING ---
Report called to ASHANTI Hansen from [facility] for transfer.
[2020-12-30] MEDS: Cholecalciferol (VIT D3) 25 MCG TABLET (1,000 UNITS) PO (21:07)
[2020-12-30] MEDS: Ferrous Sulfate 325 MG Tablet PO (21:07)
[2020-12-30] MEDS: Aspirin E.C. 81 MG Tablet PO (21:07)
--- NOTE | 2020-12-31 06:50 | PCM.DC.SUM ---
Providers Date of Admission: 12/29/20 Primary Care Physician: Dr. Raul Uribe MD Reason For Visit: CHEST PAIN Diagnosis Discharge Diagnosis (1) Chest pain: Status: Acute Code(s): R07.9 - Chest pain, unspecified Qualifiers: Chest pain type: unspecified Qualified Code(s): R07.9 - Chest pain, unspecified (2) Liver transplant recipient: Status: Chronic Code(s): Z94.4 - Liver transplant status (3) Chronic renal failure, stage 3 (moderate): Status: Chronic Code(s): N18.3 - Chronic kidney disease, stage 3 (moderate) Qualifiers: Chronic kidney disease stage 3 subtype: stage 3b (GFR 30-44) Qualified Code(s): N18.32 - Chronic kidney disease, stage 3b Medications at Discharge Home Medications aspirin [Adult Low Dose Aspirin] 81 mg PO DAILY 10/21/15 sulfamethoxazole-trimethoprim 1 tab PO DAILY 08/08/17 tacrolimus [Prograf] 250 mg PO DAILY 07/24/18 magnesium oxide 400 mg PO DAILY #1 tablet 10/24/18 ferrous sulfate 325 mg PO DAILY 12/25/18 alprazolam 0.5 mg PO DAILY PRN 04/07/19 cholecalciferol (vitamin D3) 1,250 unit PO QHS 04/07/19 fluoxetine 20 mg PO DAILY 04/07/19 ursodiol 250 mg PO TID 04/07/19 metoprolol tartrate 25 mg PO DAILY 05/23/20 torsemide 40 mg PO QODAY 05/23/20 oxycodone 10 mg PO Q6H PRN PRN 12/29/20 Hospital Course Procedures 2-D Echocardiogram Summary of Care Provided Hospital Course: 6-year-old white male presents with chest pain. Patient was having dyspnea on exertion and chest pressure over the preceding few days. Presented in his troponin initially was normal then went up slightly to 0.2. Patient has a history of liver transplant and discussed with cardiology the patient's case and given his transplant history felt that he be best suited the [facility] where his transplant was performed. I did discuss the case with the physician at [facility] and they agreed to take the patient. Would not build adequately probably take care of this patient without his liver team involved. Patient with replacement. Patient was transferred to [facility] in stable condition. He did have a 50 beat run of nonsustained VT while in the hospital.. Patient's potassium was corrected. Patient was discharged early in the morning on the first before had a chance to evaluate the patient. ABG / Lab / Microbiology Data Result Diagrams: 12/30/20 05:25 12/30/20 05:25 Laboratory: Laboratory Results - last 24 hr 12/30/20 12/30/20 12/30/20 05:25 09:30 16:22 Sodium 141 Potassium 2.9 L Chloride 106 Carbon Dioxide 28.0 Anion Gap 7 BUN 25 H Creatinine 2.32 H Estim Creat Clear Calc 34.96 Est GFR (MDRD) Af Amer 37 L Est GFR (MDRD) Non-Af 31 L BUN/Creatinine Ratio 10.8 Glucose 114 H Calcium 8.6 Magnesium 2.1 Troponin I 0.130 H Triglycerides 97 Cholesterol 179 LDL Cholesterol 125 VLDL Cholesterol 19 HDL Cholesterol 35 L 12/30/20 16:22 Sodium Potassium Chloride Carbon Dioxide Anion Gap BUN Creatinine Estim Creat Clear Calc Est GFR (MDRD) Af Amer Est GFR (MDRD) Non-Af BUN/Creatinine Ratio Glucose Calcium Magnesium Troponin I 0.105 H Triglycerides Cholesterol LDL Cholesterol VLDL Cholesterol HDL Cholesterol Microbiology: Microbiology 12/29/20 18:20 Nasal Secretion SARS-CoV-2 Antigen (Rapid) - Final Radiography Diagnostic Testing: Radiology Impression Echocardiogram 12/29/20 21:19 Interpretation Summary The estimated ejection fraction is EF 55-60% %. Limited 2 D echo secondary to TDS Over all LV systolic function is Normal Definity /contrast echo used,Normal Wall motion and Thickness Ordering Physician: Jaciel Spivey Referring Physician: Raul Uribe Performed By: Luz Bassett, WILEY, RVT Meaningful Use Info Meaningful Use Diagnoses (Choose all that apply): None applicable Discharge Plan Admission Admit Date/Time: 12/29/20 20:08 Attending Provider: Claudio Rice Primary Care Provider: Raul Uribe Instructions Patient Instructions: ED Chest Pain, Noncardiac Discharge Orders/Prescriptions Prescriptions: No Action aspirin [Adult Low Dose Aspirin] 81 MG tablet,delayed release (DR/EC) 81 mg PO DAILY RF: 0 sulfamethoxazole-trimethoprim 1 TABLET tablet 1 tab PO DAILY RF: 0 tacrolimus [Prograf] 0.5 MG capsule 250 mg PO DAILY RF: 0 magnesium oxide 400 MG tablet 400 mg PO DAILY Qty: 1 RF: 0 ferrous sulfate 325 MG tablet 325 mg PO DAILY RF: 0 cholecalciferol (vitamin D3) 5,000 UNIT capsule 1,250 unit PO QHS RF: 0 alprazolam 0.5 MG tablet 0.5 mg PO DAILY PRN (Reason: Anxiety) RF: 0 fluoxetine 20 MG capsule 20 mg PO DAILY RF: 0 ursodiol 250 MG tablet 250 mg PO TID RF: 0 torsemide 20 MG tablet 40 mg PO QODAY RF: 0 metoprolol tartrate 25 MG tablet 25 mg PO DAILY RF: 0 oxycodone 5 MG tablet 10 mg PO Q6H PRN PRN (Reason: Pain) RF: 0 Referrals: Raul Uribe MD [Primary Care Provider] - Disposition Patient Disposition: Acute Care Hospital
== END 2020-12-31 00:40 | disposition short-term general hospital (02) ==
LOC: ED 20:21 → PCU 20:30
PROVIDERS: Admitting Provider Hospitalist; Emergency Provider Emergency Medicine; PCP Family Medicine
DX: R07.89 Other chest pain (principal); R06.02 Shortness of breath; K74.60 Unspecified cirrhosis of liver; I48.91 Unspecified atrial fibrillation; E66.9 Obesity, unspecified; I50.9 Heart failure, unspecified; I25.10 Atherosclerotic heart disease of native coronary artery without angina pectoris; E88.01 Alpha-1-antitrypsin deficiency; Z94.4 Liver transplant status; Z79.899 Other long term (current) drug therapy; Z79.82 Long term (current) use of aspirin; Z68.42 Body mass index [BMI] 45.0-49.9, adult; R06.09 Other forms of dyspnea; N18.32 Chronic kidney disease, stage 3b; R42 Dizziness and giddiness; I49.1 Atrial premature depolarization
CPT/HCPCS: 36415; 71045; 80048; 80053; 80061; 83735; 83880; 84484; 85025; 87426; 93005; 93308; 94640; 96361; 96374; 97802; 99218; 99284; J7030; Q9957; A4216; C8924; G0378

== ENCOUNTER 2021-01-17 12:22 | Emergency (ER) | payer MEDICARE, SELFPAY ==
[2020-12-29 21:41] VITALS: BMI 49.0
[2021-01-17 12:23] VITALS: BP 121/59; PULSE 66; RESP 18; TEMP 36.8; O2SAT 96; BMI 50.6
--- NOTE | 2021-01-17 12:41 | VDLE_ITS ---
Reason For Study: swelling RIGHT GSV is normal. CFV is compressible, spontaneous, phasic, competent and demonstrates normal augmentation. FV is compressible, spontaneous, phasic, competent and demonstrates normal augmentation. POP V is compressible, spontaneous, phasic, competent and demonstrates normal augmentation. T/P Trunk is compressible. PTV is compressible. RT PerV is compressible. Procedure This is a venous duplex using B-mode, color flow and spectral Doppler. Exam performed portable in ED. The exam was abbreviated due to the COVID 19 protocol. The exam was of fair technical quality due to pt body habitus. A preliminary report was called and/or faxed to ED RN. VL/Venous Duplex US, Unilateral Interpretation Summary Deep veins of the right lower extremity are patent and compressible segmentally . There is no evidence of right lower extremity deep vein thrombosis. Valvular competence amanda ears intact within the proximal deep venous system on the right . The right great saphenous vein a ppears patent and compressible segmentally. Ordering Physician: Haritha Ledesma Performed By: Clifford Hernandes RVT
--- NOTE | 2021-01-17 12:42 | EDS_ITS ---
HPI History of Present Illness Chief Complaint: Lower Extremity Injury Narrative Narrative: Patient complains of warmth and redness related to the right lower leg and calf that began yesterday persisted today, he has a history of liver transplant, 2 cardiac stents, small vessel heart disease he was supposed to have a cardiac Holter monitor placed at [facility] he persisted having the leg pain and the redness and he called EMS he was brought to the hospital, patient reports that a few years ago he suffered an injury to that right lower leg laceration that required operative management he is intermittently had cellulitis believes history of Augmentin he indicates he is doing well at home otherwise no coronavirus exposures no history of DVT no chest pain cough abdominal pain bowel and bladder habits unremarkable [facility] Medical History Atrial fibrillation Cirrhosis Congestive heart failure (CHF) Coronary artery disease Kidney disease Home Medications aspirin [Adult Low Dose Aspirin] 81 mg PO DAILY 10/21/15 [History Last Taken 05/01/19] sulfamethoxazole-trimethoprim 1 tab PO DAILY 08/08/17 [History Last Taken 05/01/19] tacrolimus [Prograf] 250 mg PO DAILY 07/24/18 [History Last Taken 12/29/20] magnesium oxide 400 mg PO DAILY #1 tablet 10/24/18 [Rx Last Taken 05/01/19] ferrous sulfate 325 mg PO DAILY 12/25/18 [History Last Taken 05/01/19] alprazolam 0.5 mg PO DAILY PRN 04/07/19 [History Last Taken 04/03/19] cholecalciferol (vitamin D3) 1,250 unit PO QHS 04/07/19 [History Last Taken 05/01/19] fluoxetine 20 mg PO DAILY 04/07/19 [History Last Taken 05/01/19] ursodiol 250 mg PO TID 04/07/19 [History Last Taken 05/01/19] metoprolol tartrate 25 mg PO DAILY 05/23/20 [History Last Taken Unknown] torsemide 40 mg PO QODAY 05/23/20 [History Last Taken Unknown] oxycodone 10 mg PO Q6H PRN PRN 12/29/20 [History Last Taken Unknown] amoxicillin-pot clavulanate [Augmentin] 1 tab PO Q12H #20 tab 01/17/21 [Rx Last Taken Unknown] Allergy/AdvReac Type Severity Reaction Status Date / Time pravastatin [From Pravachol] Allergy Hives Verified 01/17/21 12:28 Dtslkor-Yyj-Ihi Reductase Allergy Hives Verified 01/17/21 12:28 Inhibitor vancomycin Allergy NEEDS Verified 01/17/21 12:28 FOLLOW-UP zolpidem tartrate Allergy Hives Verified 01/17/21 12:28 [From Ambien] everolimus AdvReac Swelling Verified 01/17/21 12:28 gabapentin AdvReac NEEDS Verified 01/17/21 12:28 FOLLOW-UP lactulose AdvReac Upset Verified 01/17/21 12:28 Stomach Family History Mother Heart disease Father Heart disease Surgical History H/O shoulder surgery History of hip surgery Social History Smoking Status: Never smoker ROS ROS ED Constitutional Constitutional ED: Reports chills, subjective, sweats and other; Denies fever(s) or weight loss Eyes Eyes: Denies blurry vision or change in vision ENT ENT ED: Denies ear pain Cardiovascular Cardiovascular: Denies chest pain or palpitations Respiratory/Chest Respiratory/Chest: Denies dyspnea Gastrointestinal Gastrointestinal: Denies abdominal pain, nausea or vomiting Genitourinary Genitourinary ED: Denies dysuria or hematuria Musculoskeletal Musculoskeletal: Denies arthralgias or myalgias Integumentary Reports rash and other Details: He complains of redness and warmth to the right lower leg primarily the calf no other skin lesions he has no history of MRSA or skin infections except as above ; Denies abscess Neurologic Neurologic: Denies weakness Psychiatric Psychiatric: Denies anxiety or depression Endocrine Endocrinology: Denies polydipsia or polyuria Allergic/Immunologic Allergic/Immunologic ED: Denies urticaria EXAM Physical Exam Narrative Exam Narrative: The patient is a very large gentleman he is generally in no distress see below the only issue is her right lower leg he has strong dorsalis pedis pulse well-perfused ankle function normal he has a large healed scar to the right lower leg that is curvilinear prior trauma, he has warmth and discomfort diffusely about the calf and anteriorly over this laceration there is no crepitus no subcu air the knee is unremarkable the hip is unremarkable the skin is otherwise unremarkable the back is unremarkable head neck chest otherwise unremarkable Const Vital Signs: 01/17/21 12:23 01/17/21 14:04 Temperature 98.2 F Temperature Source Oral Pulse Rate 66 60 Respiratory Rate 18 18 Blood Pressure 121/59 H 120/40 L Blood Pressure Mean 79 66 Pulse Ox 96 98 Oxygen Delivery Method Room Air Room Air Positive well developed General Appearance ED: well developed HEENT Reports normocephalic Negative for trauma Eyes EOMs intact bilaterally Neck supple Chest Wall inspection of chest normal Resp normal respiratory effort Cardio regular rate GI non-tender and non-distended Back/Spine Back/Spine Narrative: unremarkable Extremity normal to inspection Neuro oriented x3 and CN's II-XII intact bilaterally Sensorium / Orientation: alert Psych mental status grossly normal Skin no rashes or lesions noted MDM MDM MDM Narrative Medical decision making narrative: I had a long conversation with the patient and his daughter recommended screening labs etc. we discussed inpatient versus outpatient management the patient reports he had blood test to the [facility] yesterday he did show me those test results for CBC and comprehensive metabolic through his [employer] computer phone unremarkable, he does not wish to have repeat labs done, he does not wish to be considered for admission would prefer outpatient management we discussed the complicated nature of his state given his liver transplantation understands that reports he can be treated safely and has been treated in the past with oral antibiotics like Augmentin he does agree and he has submitted to duplex scan of the right leg and IM Augmentin daughters in the room with him and he concurs that he has been doing well at h ome and they would prefer outpatient management Duplex scan scan per the staff shows nothing acute no DVT discussed this with the patient he did receive 1 g Rocephin IM again he does not wish to be admitted we discussed his liver transplantation immunocompromised potential he understands that and assures me he has been able to be managed as an outpatient will follow-up with his outpatient providers and return for change in symptoms Discharge Plan Triage Chief Complaint: Lower Extremity Injury ED Provider: Haritha Ledesma Dx/Rx/DC Orders Clinical Impression: Cellulitis Instructions: ED Cellulitis Prescriptions: New amoxicillin-pot clavulanate [Augmentin] 875-125 mg tablet 1 tab PO Q12H Qty: 20 RF: 0 No Action aspirin [Adult Low Dose Aspirin] 81 MG tablet,delayed release (DR/EC) 81 mg PO DAILY RF: 0 sulfamethoxazole-trimethoprim 1 TABLET tablet 1 tab PO DAILY RF: 0 tacrolimus [Prograf] 0.5 MG capsule 250 mg PO DAILY RF: 0 magnesium oxide 400 MG tablet 400 mg PO DAILY Qty: 1 RF: 0 ferrous sulfate 325 MG tablet 325 mg PO DAILY RF: 0 cholecalciferol (vitamin D3) 5,000 UNIT capsule 1,250 unit PO QHS RF: 0 alprazolam 0.5 MG tablet 0.5 mg PO DAILY PRN (Reason: Anxiety) RF: 0 fluoxetine 20 MG capsule 20 mg PO DAILY RF: 0 ursodiol 250 MG tablet 250 mg PO TID RF: 0 torsemide 20 MG tablet 40 mg PO QODAY RF: 0 metoprolol tartrate 25 MG tablet 25 mg PO DAILY RF: 0 oxycodone 5 MG tablet 10 mg PO Q6H PRN PRN (Reason: Pain) RF: 0 Primary Care Provider: Raul Uribe Referrals: Raul Uribe MD [Primary Care Provider] -
[2021-01-17] MEDS: Ceftriaxone 1 GM Vial IM (14:00)
[2021-01-17 14:04] VITALS: BP 120/40; PULSE 60; RESP 18; O2SAT 98
== END 2021-01-17 14:47 | disposition home or self-care (01) ==
LOC: ED 12:45
PROVIDERS: Emergency Provider Emergency Medicine; PCP Family Medicine
DX: L03.115 Cellulitis of right lower limb (principal); I48.91 Unspecified atrial fibrillation; K74.60 Unspecified cirrhosis of liver; Z79.01 Long term (current) use of anticoagulants; Z79.82 Long term (current) use of aspirin; Z79.899 Other long term (current) drug therapy; Z94.4 Liver transplant status; Z95.5 Presence of coronary angioplasty implant and graft; I25.10 Atherosclerotic heart disease of native coronary artery without angina pectoris; I50.9 Heart failure, unspecified
CPT/HCPCS: 93971; 96372; 99284

== ENCOUNTER 2021-01-19 20:33 | Emergency (ER) | payer MEDICARE, SELFPAY ==
[2021-01-19 20:34] VITALS: PULSE 72; RESP 20; TEMP 36.9; O2SAT 100; BMI 50.0
--- NOTE | 2021-01-19 20:48 | EKG12_ITS ---
Test Reason : PALPS Blood Pressure : / mmHG Vent. Rate : 071 BPM Atrial Rate : 071 BPM P-R Int : 172 ms QRS Dur : 082 ms QT Int : 404 ms P-R-T Axes : 041 -19 025 degrees QTc Int : 439 ms Normal sinus rhythm Low voltage QRS Junctional ST depression, probably normal Borderline ECG Confirmed by KAREEM SHIPMAN, SUZE ([id number]), senior editor JULIO CÉSAR SOLORIO ([id number]) on 01/24/2021 10:07:18 A M Referred By: EDUARDO Confirmed By:KOBY SERNA MD
--- NOTE | 2021-01-19 20:52 | EX.ED.DYSGE1 ---
HPI History of Present Illness Chief Complaint: Palpitations Informant: patient Onset/Context/Timing Onset: Today Context: Sudden Onset Timing: Lasts (25 minutes) Current Severity: Mild Maximum Severity: Moderate Narrative Narrative: The patient is a 60-year-old male with medical history significant for prior liver transplant, obesity, hip and knee replacement, who presents to the emergency department with heart racing. Patient has history of paroxysmal atrial fibrillation. He was evaluated here about a month ago. He states that he was transferred to [facility]. He was having runs of V. tach. The patient was placed on metoprolol and Eliquis. He states that he was put on an outpatient heart monitor, but did not come until today. This evening, he states he is resting. He states suddenly, he felt that his heart was racing. He states his heart rate was anywhere from 1 40-1 80. He states normally, the short lived, but this time it lasted approximately 25 minutes. He states he did feel some mild chest tightness with it. It is since resolved, but he just feels generally malaise. Prior similar symptoms: Yes Recent Illness/Hospitalization: [facility] Medical History Atrial fibrillation Cirrhosis Congestive heart failure (CHF) Coronary artery disease Kidney disease Home Medications aspirin [Adult Low Dose Aspirin] 81 mg PO DAILY 10/21/15 [History Last Taken 05/01/19] sulfamethoxazole-trimethoprim 1 tab PO DAILY 08/08/17 [History Last Taken 05/01/19] tacrolimus [Prograf] 250 mg PO DAILY 07/24/18 [History Last Taken 12/29/20] magnesium oxide 400 mg PO DAILY #1 tablet 10/24/18 [Rx Last Taken 05/01/19] ferrous sulfate 325 mg PO DAILY 12/25/18 [History Last Taken 05/01/19] alprazolam 0.5 mg PO DAILY PRN 04/07/19 [History Last Taken 04/03/19] cholecalciferol (vitamin D3) 1,250 unit PO QHS 04/07/19 [History Last Taken 05/01/19] fluoxetine 20 mg PO DAILY 04/07/19 [History Last Taken 05/01/19] ursodiol 250 mg PO TID 04/07/19 [History Last Taken 05/01/19] metoprolol tartrate 25 mg PO DAILY 05/23/20 [History Last Taken Unknown] torsemide 40 mg PO QODAY 05/23/20 [History Last Taken Unknown] oxycodone 10 mg PO Q6H PRN PRN 12/29/20 [History Last Taken Unknown] amoxicillin-pot clavulanate [Augmentin] 1 tab PO Q12H #20 tab 01/17/21 [Rx Last Taken Unknown] apixaban [Eliquis] 5 mg PO DAILY 01/19/21 [History Last Taken Unknown] morphine 15 mg PO BID 01/19/21 [History Last Taken Unknown] potassium chloride 10 meq PO DAILY 01/19/21 [History Last Taken Unknown] Allergy/AdvReac Type Severity Reaction Status Date / Time pravastatin [From Pravachol] Allergy Hives Verified 01/19/21 20:37 Ccgdjmu-Fbn-Kca Reductase Allergy Hives Verified 01/19/21 20:37 Inhibitor vancomycin Allergy NEEDS Verified 01/19/21 20:37 FOLLOW-UP zolpidem tartrate Allergy Hives Verified 01/19/21 20:37 [From Ambien] everolimus AdvReac Swelling Verified 01/19/21 20:37 gabapentin AdvReac NEEDS Verified 01/19/21 20:37 FOLLOW-UP lactulose AdvReac Upset Verified 01/19/21 20:37 Stomach Family History Mother Heart disease Father Heart disease Surgical History H/O shoulder surgery History of hip surgery Social History Smoking Status: Never smoker ROS ROS ED Constitutional Constitutional ED: Denies chills or fever(s) Eyes Eyes: Denies blurry vision or change in vision ENT ENT ED: Denies ear pain or sore throat Cardiovascular Cardiovascular: Reports palpitations and racing heartbeat; Denies chest pain Respiratory/Chest Respiratory/Chest: Denies cough, dyspnea or dyspnea on exertion Gastrointestinal Gastrointestinal: Denies abdominal pain, nausea or vomiting Genitourinary Genitourinary ED: Denies dysuria or urinary frequency Musculoskeletal Musculoskeletal: Denies arthralgias or myalgias Integumentary Denies rash Neurologic Neurologic: Denies headache(s) or paresthesias Psychiatric Psychiatric: Denies anxiety or depression Endocrine Endocrinology: Denies polydipsia or polyuria Allergic/Immunologic Allergic/Immunologic ED: Denies urticaria EXAM Physical Exam Const Vital Signs: 01/19/21 20:34 01/19/21 20:41 Temperature 98.5 F Temperature Source Oral Pulse Rate 72 Respiratory Rate 20 H Respiratory Effort Normal Non-Labored Pulse Ox 100 Oxygen Delivery Method Room Air Positive well nourished and well developed General Appearance ED: well developed HEENT Reports normocephalic, head/scalp atraumatic and moist mucous membranes Eyes PERRL and EOMs intact bilaterally Neck no lymphadenopathy and supple General: Negative for tenderness Chest Wall inspection of chest normal Resp normal respiratory effort and clear to auscultation bilaterally Cardio regular rate, regular rhythm and no murmurs GI normal to inspection, nondistended, normoactive bowel sounds Palpation: Negative for tender, guarding or rebound tenderness present Back/Spine no CVA tenderness Cervical Spine: Negative for cervical spine tenderness Thoracic Spine / Upper Back: Negative for thoracic spinal tenderness Extremity normal to inspection General Extremety ED: Negative for tenderness Neuro oriented x3 and CN's II-XII intact bilaterally Neuro Narrative: No focal deficits appreciated. Sensorium / Orientation: alert Psych mental status grossly normal Skin no rashes or lesions noted, no wounds and skin turgor normal MDM MDM MDM Narrative Medical decision making narrative: The patient presents to the emergency department palpitations have since resolved. EKG was obtained. It was sinus rhythm without evidence of acute ischemia. Patient does have recent admission for SVT and ventricular tachycardia. Patient was kept on a monitor. Metabolic work-up was pursued. Chest x-ray shows no evidence of focal infiltrative process. Screening labs are unremarkable. It does demonstrate chronic kidney disease. Liver functions are normal. Cardiac enzymes are normal. Potassium is normal. Magnesium is normal. Chest x-ray reviewed by both myself and the radiologist shows no evidence of CHF. The patient has maintained a sinus rhythm for the past hour and a half. I did discuss options with the patient. He wants to go home. He is maintained sinus rhythm. He is already on medication. He has a Holter monitor to wear at home. I do feel that this is reasonable as he is asymptomatic now. He was counseled on concerning symptoms and reasons to return. He will be discharged. Impression 1. Palpitations Lab Data Attestation: I reviewed the patient's lab results. Labs: Laboratory Results - last 24 hr 01/19/21 01/19/21 01/19/21 21:00 21:00 21:00 WBC 8.1 RBC 3.93 L Hgb 11.9 L Hct 36.3 L MCV 92.4 MCH 30.3 MCHC 32.8 RDW Std Deviation 49.4 H RDW Coeff of Maciel 14.7 H Plt Count 229 MPV 9.8 Immature Gran % (Auto) 0.200 Neut % (Auto) 73.2 H Lymph % (Auto) 19.3 Brewster % (Auto) 6.5 Eos % (Auto) 0.7 Baso % (Auto) 0.1 Absolute Neuts (auto) 5.9 Absolute Lymphs (auto) 1.57 Nucleated RBC % 0 Sodium 140 Potassium 4.3 Chloride 104 Carbon Dioxide 30.0 Anion Gap 6 BUN 28 H Creatinine 1.93 H Estim Creat Clear Calc 42.03 Est GFR (MDRD) Af Amer 46 L Est GFR (MDRD) Non-Af 38 L BUN/Creatinine Ratio 14.5 Glucose 124 H Calcium 8.7 Magnesium 1.9 Total Bilirubin 0.60 AST 20 ALT 14 L Alkaline Phosphatase 121 H Troponin I < 0.015 Total Protein 6.2 L Albumin 2.2 L Globulin 4.0 Albumin/Globulin Ratio 0.6 L Radiography Chest X-Ray - ED: 1 View, Read by ED Physician, Heart, Lungs, Mediastinum, Bony Structures and No Acute Disease Diagnostic Testing: Radiology Impression Chest X-Ray 01/19/21 21:00 IMPRESSION: Nonspecific elevation of right hemidiaphragm. No acute Electronically Signed: Alexander Patel MD at 21:20 EDT , Service support , EKG Initial EKG: Attestation: I personally reviewed and interpreted this EKG as follows: Interpretation: Sinus Rhythm Prior EKG tracings: available for review Prior: Unchanged Discharge Plan Triage Chief Complaint: Palpitations ED Provider: Bobby Liz Dx/Rx/DC Orders Instructions: ED Palpitations Prescriptions: No Action aspirin [Adult Low Dose Aspirin] 81 MG tablet,delayed release (DR/EC) 81 mg PO DAILY RF: 0 sulfamethoxazole-trimethoprim 1 TABLET tablet 1 tab PO DAILY RF: 0 tacrolimus [Prograf] 0.5 MG capsule 250 mg PO DAILY RF: 0 magnesium oxide 400 MG tablet 400 mg PO DAILY Qty: 1 RF: 0 ferrous sulfate 325 MG tablet 325 mg PO DAILY RF: 0 cholecalciferol (vitamin D3) 5,000 UNIT capsule 1,250 unit PO QHS RF: 0 alprazolam 0.5 MG tablet 0.5 mg PO DAILY PRN (Reason: Anxiety) RF: 0 fluoxetine 20 MG capsule 20 mg PO DAILY RF: 0 ursodiol 250 MG tablet 250 mg PO TID RF: 0 torsemide 20 MG tablet 40 mg PO QODAY RF: 0 metoprolol tartrate 25 MG tablet 25 mg PO DAILY RF: 0 oxycodone 5 MG tablet 10 mg PO Q6H PRN PRN (Reason: Pain) RF: 0 amoxicillin-pot clavulanate [Augmentin] 875-125 mg tablet 1 tab PO Q12H Qty: 20 RF: 0 morphine 15 mg tablet extended release 15 mg PO BID RF: 0 potassium chloride 10 mEq tablet,ER particles/crystals 10 meq PO DAILY RF: 0 Eliquis 5 mg tablet 5 mg PO DAILY RF: 0 Primary Care Provider: Raul Uribe Referrals: Raul Uribe MD [Primary Care Provider] -
--- NOTE | 2021-01-19 21:00 | RAD_ITS ---
STUDY: X-RAY CHEST REASON FOR EXAM: Male, 60 years old. sob TECHNIQUE: AP portable COMPARISON: 12/29/2020 FINDINGS: Nonspecific elevation of right hemidiaphragm. Lungs are clear.. There is no demonstrated pleural abnormality. Normal size heart. Normal mediastinum and debora. Normal visualized pulmonary arteries. Normal visualized aortic arch and descending thoracic aorta. Dorsal spine demonstrates scoliosis and degenerative change Normal visualized ribs, and clavicles. Left shoulder prosthesis is noted There is no demonstrated abnormality of the visualized soft tissue structures of the upper abdomen. RAD/Chest 1 View (Portable) IMPRESSION: Nonspecific elevation of right hemidiaphragm. No acute Electronically Signed: Alexander Patel MD at 21:20 EDT , Service support ,
[2021-01-19 21:07] LABS: Absolute Lymphocyte Count 1.57 X10^3/uL (0.83-4.51); Absolute Neutrophil Count 5.9 X10^3/uL (2.0-7.7); Basophil# 0.01 X10^3/uL; Basophil% 0.1 % (0-1); Eosinophil# 0.06 X10^3/uL; Eosinophils% 0.7 % (0-5); Hematocrit 36.3 % (40-54); Hemoglobin 11.9 g/dL (13.0-16.5); Lymphocyte # 1.57 X10^3/ul (0.83-4.51); Lymphocyte % 19.3 % (19-41); Mean Corp Hgb Conc 32.8 g/dL (32-36); Mean Corpuscular Hgb 30.3 pg (27.0-32.0); Mean Corpuscular Volume 92.4 fL (80-94); Mean Platelet Vol. 9.8 fl (6.2-12.0); Monocyte# 0.53 X10^3/uL; Monocyte% 6.5 % (0-10); NRBC Flagged by Analyzer 0 % (0-5); Neutrophil # 5.94 X10^3/uL (2.7-7.7); Neutrophil % 73.2 % (47-70); Platelet Count 229 K/mm3 (150-450); RBC Distribution Width CV 14.7 % (11.6-14.6); RBC Distribution Width SD 49.4 fl (35.1-43.9); Red Blood Count 3.93 M/mm3 (4.6-6.2); White Blood Count 8.1 K/mm3 (4.4-11.0)
[2021-01-19 21:27] LABS: ALB/GLOB Ratio 0.6 RATIO (0.9-2.4); AST(SGOT) 20 U/L (15-37); Alanine Aminotransfer ALT/SGPT 14 U/L (16-61); Albumin, Serum 2.2 g/dL (3.2-5.0); Alkaline Phosphatase 121 U/L (45-117); Anion Gap 6 (5-15); BUN 28 mg/dL (7-18); BUN/Creat Ratio 14.5 RATIO (10-20); Calcium,Total 8.7 mg/dL (8.5-10.1); Chloride 104 mmol/L (98-107); Creatinine, Serum 1.93 mg/dL (0.70-1.30); EST Glomerular Filtration Rate 38 mL/min (>60); Est Glom Filt Rate - Afr Amer 46 mL/min (>60); Estimated Creatinine Clearance 42.03 ml/min; Glucose 124 mg/dL (74-106); Potassium 4.3 mmol/L (3.5-5.1); Protein, Total 6.2 g/dL (6.4-8.2); Sodium Level 140 mmol/L (136-145)
[2021-01-19 21:34] LABS: Magnesium 1.9 mg/dL (1.6-2.6)
[2021-01-19 22:12] LABS: BNP,B-Type NATRIURETIC PEPTIDE 108.7 pg/mL (0-100)
[2021-01-19 22:16] VITALS: BP 123/76; PULSE 78; RESP 16; O2SAT 98
== END 2021-01-19 22:17 | disposition home or self-care (01) ==
LOC: ED 20:49
PROVIDERS: Emergency Provider Emergency Medicine; PCP Family Medicine
DX: R00.2 Palpitations (principal); R00.0 Tachycardia, unspecified; I48.0 Paroxysmal atrial fibrillation; I25.10 Atherosclerotic heart disease of native coronary artery without angina pectoris; N18.9 Chronic kidney disease, unspecified; I50.9 Heart failure, unspecified; K74.60 Unspecified cirrhosis of liver; E66.9 Obesity, unspecified; Z79.01 Long term (current) use of anticoagulants; Z79.82 Long term (current) use of aspirin; Z79.899 Other long term (current) drug therapy; Z94.4 Liver transplant status
CPT/HCPCS: 71045; 80053; 83735; 83880; 84484; 85025; 93005; 99285; A4216

== ENCOUNTER 2021-01-31 09:47 | Emergency (ER) | payer MEDICARE, SELFPAY ==
[2021-01-31 09:47] VITALS: BP 127/71; PULSE 160; RESP 18; TEMP 37.1; O2SAT 99; BMI 50.3
[2021-01-31 09:52] VITALS: PULSE 62
--- NOTE | 2021-01-31 09:52 | ED.RN ---
PT HEART RATE 160 IN TRIAGE. 150 [facility]. PT TO ROOM. UPON LAYING PT BACK, PT CONVERTED
--- NOTE | 2021-01-31 09:59 | EKG12_ITS ---
Test Reason : PALPS Blood Pressure : / mmHG Vent. Rate : 059 BPM Atrial Rate : 059 BPM P-R Int : 186 ms QRS Dur : 086 ms QT Int : 416 ms P-R-T Axes : 046 -15 026 degrees QTc Int : 411 ms Sinus bradycardia Low voltage QRS Borderline ECG Confirmed by CARLA SHIPMAN, SUGAR ([id number]), film examiner JULIO CÉSAR SOLORIO ([id number]) on 02/02/2021 12:22:36 PM Referred By: ATUL Confirmed By:SUGAR AGUIRRE MD
--- NOTE | 2021-01-31 10:10 | EDS_ITS ---
HPI History of Present Illness Chief Complaint: Palpitations Narrative Narrative: Palpitations SVT at ophthalmology office. The patient has history of liver transplant chest pain paroxysmal atrial fibrillation other dysrhythmias including SVT he seen at [facility] cardiology he has a event monitor attached to his chest that his piano regulator placed a week ago he scheduled follow-up with them in the next few weeks he was feeling fine today went in for routine cataract surgery, he was found to have a narrow complex SVT he was sent to the emergency department the time he arrived he was back into sinus rhythm, indicates he has these episodes of dysrhythmia frequently, he is feeling fine he has no complaints of head neck chest or abdominal pain, he does not wish to be evaluated in the emergency department he feels fine wants to go home indicates these dysrhythmias last for about 10 to 20 minutes and resolve spontaneously he is taking all his medications including his Eliquis [facility] Medical History Atrial fibrillation Cirrhosis Congestive heart failure (CHF) Coronary artery disease Kidney disease Home Medications aspirin [Adult Low Dose Aspirin] 81 mg PO DAILY 10/21/15 [History Last Taken 05/01/19] sulfamethoxazole-trimethoprim 1 tab PO DAILY 08/08/17 [History Last Taken 05/01/19] tacrolimus [Prograf] 250 mg PO DAILY 07/24/18 [History Last Taken 12/29/20] magnesium oxide 400 mg PO DAILY #1 tablet 10/24/18 [Rx Last Taken 05/01/19] ferrous sulfate 325 mg PO DAILY 12/25/18 [History Last Taken 05/01/19] alprazolam 0.5 mg PO DAILY PRN 04/07/19 [History Last Taken 04/03/19] cholecalciferol (vitamin D3) 1,250 unit PO QHS 04/07/19 [History Last Taken 05/01/19] fluoxetine 20 mg PO DAILY 04/07/19 [History Last Taken 05/01/19] ursodiol 250 mg PO TID 04/07/19 [History Last Taken 05/01/19] metoprolol tartrate 25 mg PO DAILY 05/23/20 [History Last Taken Unknown] torsemide 40 mg PO QODAY 05/23/20 [History Last Taken Unknown] oxycodone 10 mg PO Q6H PRN PRN 12/29/20 [History Last Taken Unknown] amoxicillin-pot clavulanate [Augmentin] 1 tab PO Q12H #20 tab 01/17/21 [Rx Last Taken Unknown] apixaban [Eliquis] 5 mg PO DAILY 01/19/21 [History Last Taken Unknown] morphine 15 mg PO BID 01/19/21 [History Last Taken Unknown] potassium chloride 10 meq PO DAILY 01/19/21 [History Last Taken Unknown] Allergy/AdvReac Type Severity Reaction Status Date / Time pravastatin [From Pravachol] Allergy Hives Verified 01/31/21 09:53 Zkeappe-Elj-Gnd Reductase Allergy Hives Verified 01/31/21 09:53 Inhibitor vancomycin Allergy NEEDS Verified 01/31/21 09:53 FOLLOW-UP zolpidem tartrate Allergy Hives Verified 01/31/21 09:53 [From Ambien] everolimus AdvReac Swelling Verified 01/31/21 09:53 gabapentin AdvReac NEEDS Verified 01/31/21 09:53 FOLLOW-UP lactulose AdvReac Upset Verified 01/31/21 09:53 Stomach Family History Mother Heart disease Father Heart disease Surgical History H/O shoulder surgery History of hip surgery Social History Smoking Status: Never smoker ROS ROS ED Constitutional Constitutional ED: Reports subjective, sweats and other; Denies chills, fever(s) or weight loss Eyes Eyes: Denies blurry vision or change in vision ENT ENT ED: Denies ear pain Cardiovascular Cardiovascular: Reports palpitations Respiratory/Chest Respiratory/Chest: Denies dyspnea Gastrointestinal Gastrointestinal: Denies abdominal pain, nausea or vomiting Genitourinary Genitourinary ED: Denies dysuria or hematuria Musculoskeletal Musculoskeletal: Denies arthralgias or myalgias Integumentary Reports rash; Denies abscess Neurologic Neurologic: Denies weakness Psychiatric Psychiatric: Denies anxiety or depression Endocrine Endocrinology: Denies polydipsia or polyuria Allergic/Immunologic Allergic/Immunologic ED: Denies urticaria EXAM Physical Exam Const Vital Signs: 01/31/21 09:47 06/01/21 09:52 Temperature 98.7 F Temperature Source Temporal Pulse Rate 160 H 62 Respiratory Rate 18 Blood Pressure 127/71 H Blood Pressure Mean 89 Pulse Ox 99 Oxygen Delivery Method Room Air Positive well developed General Appearance ED: well developed HEENT Reports normocephalic Negative for trauma Eyes EOMs intact bilaterally Neck supple Chest Wall inspection of chest normal Resp normal respiratory effort Cardio regular rate GI non-tender and non-distended Back/Spine Back/Spine Narrative: unremarkable Extremity normal to inspection Neuro oriented x3 and CN's II-XII intact bilaterally Sensorium / Orientation: alert Psych mental status grossly normal Skin no rashes or lesions noted MDM MDM MDM Narrative Medical decision making narrative: Patient's vital signs are unremarkable his physical exam is unremarkable he is resting company in the bed no distress, he does have a metallic device attached to his chest that he states is his recorder indicates that recorder does not automatically transmit that he has to basically take it off of his body when he is seen by cardiology appointment and they will analyze it then, we discussed the differential we discussed ED evaluation with labs x-ray etc. he declined all that is ED EKG shows sinus rhythm rate of about 60 no acute injury pattern he is on the monitor sinus rhythm vital signs are normal again he assures me he is back to his baseline these episodes are very frequent he came in only because the government documents librarian insisted and now he feels fine wants to go home is in the room with him and agrees with his planning. Final impression is recurrent SVT A. fib dysrhythmia, disposition Home stable at patient's request declined ED evaluation Discharge Plan Triage Chief Complaint: Palpitations ED Provider: Haritha Ledesma Dx/Rx/DC Orders Prescriptions: No Action aspirin [Adult Low Dose Aspirin] 81 MG tablet,delayed release (DR/EC) 81 mg PO DAILY RF: 0 sulfamethoxazole-trimethoprim 1 TABLET tablet 1 tab PO DAILY RF: 0 tacrolimus [Prograf] 0.5 MG capsule 250 mg PO DAILY RF: 0 magnesium oxide 400 MG tablet 400 mg PO DAILY Qty: 1 RF: 0 ferrous sulfate 325 MG tablet 325 mg PO DAILY RF: 0 cholecalciferol (vitamin D3) 5,000 UNIT capsule 1,250 unit PO QHS RF: 0 alprazolam 0.5 MG tablet 0.5 mg PO DAILY PRN (Reason: Anxiety) RF: 0 fluoxetine 20 MG capsule 20 mg PO DAILY RF: 0 ursodiol 250 MG tablet 250 mg PO TID RF: 0 torsemide 20 MG tablet 40 mg PO QODAY RF: 0 metoprolol tartrate 25 MG tablet 25 mg PO DAILY RF: 0 oxycodone 5 MG tablet 10 mg PO Q6H PRN PRN (Reason: Pain) RF: 0 amoxicillin-pot clavulanate [Augmentin] 875-125 mg tablet 1 tab PO Q12H Qty: 20 RF: 0 morphine 15 mg tablet extended release 15 mg PO BID RF: 0 potassium chloride 10 mEq tablet,ER particles/crystals 10 meq PO DAILY RF: 0 Eliquis 5 mg tablet 5 mg PO DAILY RF: 0 Primary Care Provider: Raul Uribe
[2021-01-31 10:42] VITALS: BP 107/59; PULSE 67; RESP 15; O2SAT 99
== END 2021-01-31 10:46 | disposition home or self-care (01) ==
PROVIDERS: Emergency Provider Emergency Medicine; PCP Family Medicine
DX: I47.1 Supraventricular tachycardia (principal); I48.91 Unspecified atrial fibrillation; I49.9 Cardiac arrhythmia, unspecified; I25.10 Atherosclerotic heart disease of native coronary artery without angina pectoris; I50.9 Heart failure, unspecified; Z79.899 Other long term (current) drug therapy; Z79.82 Long term (current) use of aspirin
CPT/HCPCS: 93005; 99282

== ENCOUNTER 2021-02-02 15:10 | Emergency (ER) | payer MEDICARE, SELFPAY ==
[2021-02-02] VITALS (14 sets, daily range): BP systolic 99–131; BP diastolic 54–110; PULSE 65–154; RESP 16–98; TEMP 36.6–36.8; O2SAT 97–100; BMI 50.5
--- NOTE | 2021-02-02 15:22 | EKG12_ITS ---
Test Reason : PALPS Blood Pressure : / mmHG Vent. Rate : 150 BPM Atrial Rate : 150 BPM P-R Int : 080 ms QRS Dur : 082 ms QT Int : 346 ms P-R-T Axes : 000 -20 -10 degrees QTc Int : 546 ms Atrial Flutter Leftward axis Abnormal ECG Confirmed by CARLA SHIPMAN, SUGAR ([id number]), movie editor JULIO CÉSAR SOLORIO ([id number]) on 02/06/2021 9:46:27 AM Referred By: PHAN Confirmed By:SUGAR AGUIRRE MD
[2021-02-02] MEDS: Propofol 200 MG/20 ML Vial IV BOLUS (15:32)
[2021-02-02 15:38] LABS: Absolute Lymphocyte Count 2.36 X10^3/uL (0.83-4.51); Absolute Neutrophil Count 4.9 X10^3/uL (2.0-7.7); Basophil# 0.06 X10^3/uL; Basophil% 0.7 % (0-1); Eosinophil# 0.39 X10^3/uL; Eosinophils% 4.7 % (0-5); Hematocrit 39.6 % (40-54); Hemoglobin 13.4 g/dL (13.0-16.5); Lymphocyte # 2.36 X10^3/ul (0.83-4.51); Lymphocyte % 28.3 % (19-41); Mean Corp Hgb Conc 33.8 g/dL (32-36); Mean Corpuscular Hgb 30.9 pg (27.0-32.0); Mean Corpuscular Volume 91.5 fL (80-94); Mean Platelet Vol. 9.9 fl (6.2-12.0); Monocyte# 0.59 X10^3/uL; Monocyte% 7.1 % (0-10); NRBC Flagged by Analyzer 0 % (0-5); Neutrophil # 4.91 X10^3/uL (2.7-7.7); Platelet Count 262 K/mm3 (150-450); RBC Distribution Width CV 14.6 % (11.6-14.6); Red Blood Count 4.33 M/mm3 (4.6-6.2); White Blood Count 8.3 K/mm3 (4.4-11.0)
[2021-02-02 15:54] LABS: Anion Gap 8 (5-15); BUN 26 mg/dL (7-18); BUN/Creat Ratio 13.1 RATIO (10-20); Calcium,Total 8.8 mg/dL (8.5-10.1); Chloride 102 mmol/L (98-107); Creatinine, Serum 1.99 mg/dL (0.70-1.30); EST Glomerular Filtration Rate 37 mL/min (>60); Est Glom Filt Rate - Afr Amer 44 mL/min (>60); Estimated Creatinine Clearance 40.76 ml/min; Glucose 162 mg/dL (74-106); Potassium 3.6 mmol/L (3.5-5.1); Sodium Level 140 mmol/L (136-145)
[2021-02-02 16:03] LABS: Lactic Acid 2.4 mmol/L (0.4-1.9)
--- NOTE | 2021-02-02 16:26 | EKG12_ITS ---
Test Reason : POST CARDIOVERSION Blood Pressure : / mmHG Vent. Rate : 064 BPM Atrial Rate : 064 BPM P-R Int : 202 ms QRS Dur : 094 ms QT Int : 402 ms P-R-T Axes : 008 -26 014 degrees QTc Int : 414 ms Sinus rhythm with Premature atrial complexes Low voltage QRS Borderline ECG Confirmed by CARLA SHIPMAN, SUGAR ([id number]), continuity editor JULIO CÉSAR SOLORIO ([id number]) on 02/06/2021 9:52:19 AM Referred By: PHAN Confirmed By:SUGAR AGUIRRE MD
--- NOTE | 2021-02-02 16:33 | EX.ED.DYSGE1 ---
HPI History of Present Illness Chief Complaint: General Illness Detail of Chief Complaint: Palpitations/rapid heart rate and dyspnea Informant: patient Onset/Context/Timing Onset: Today Context: Sudden Onset Timing: Continuous Quality: Rapid heartbeat Location: Chest Current Severity: Moderate Maximum Severity: Severe Worsened by: Nothing Relieved by: Nothing Associated Symptoms Associated Symptoms: Dyspnea, dyspnea on exertion and lightheadedness with standing Narrative Narrative: Patient is a morbidly obese male with multiple medical problems who presents because of rapid heartbeat. He has history of atrial fibrillation and is on Eliquis. He denies chest tightness or pressure. He denies orthopnea. He denies PND. He states his legs are less swollen than normal. He denies fever, chills or night sweats. He denies ocular, visual auditory symptoms. He denies GI or symptoms. He denies black or maroon-colored stool. Prior similar symptoms: Yes Recent Illness/Hospitalization: No PFSH PFSH Medical History Atrial fibrillation Cirrhosis Congestive heart failure (CHF) Coronary artery disease Kidney disease Home Medications aspirin [Adult Low Dose Aspirin] 81 mg PO DAILY 10/21/15 [History Last Taken 02/02/21] ferrous sulfate 325 mg PO DAILY 12/25/18 [History Last Taken 02/01/21] alprazolam 0.5 mg PO DAILY PRN 04/07/19 [History Last Taken 02/01/21] cholecalciferol (vitamin D3) 1,250 unit PO QHS 04/07/19 [History Last Taken 02/01/21] fluoxetine 20 mg PO DAILY 04/07/19 [History Last Taken 02/02/21] ursodiol [PAT 250] 250 mg PO DAILY@1400 04/07/19 [History Last Taken 02/02/21] metoprolol tartrate 25 mg PO DAILY 05/23/20 [History Last Taken 02/02/21] torsemide 40 mg PO DAILY 05/23/20 [History Last Taken 02/02/21] oxycodone 10 mg PO Q6H PRN PRN 12/29/20 [History Last Taken 01/31/21] apixaban [Eliquis] 5 mg PO DAILY 01/19/21 [History Last Taken 02/02/21] morphine 15 mg PO BID 01/19/21 [History Last Taken 02/02/21] potassium chloride 10 meq PO DAILY 01/19/21 [History Last Taken 02/02/21] tacrolimus 0.5 mg PO BID 02/02/21 [History Last Taken 02/02/21] Allergy/AdvReac Type Severity Reaction Status Date / Time pravastatin [From Pravachol] Allergy Hives Verified 02/02/21 15:18 Ocebmiy-Zii-Vrx Reductase Allergy Hives Verified 02/02/21 15:18 Inhibitor vancomycin Allergy NEEDS Verified 02/02/21 15:18 FOLLOW-UP zolpidem tartrate Allergy Hives Verified 02/02/21 15:18 [From Ambien] everolimus AdvReac Swelling Verified 02/02/21 15:18 gabapentin AdvReac NEEDS Verified 02/02/21 15:18 FOLLOW-UP lactulose AdvReac Upset Verified 02/02/21 15:18 Stomach Family History Mother Heart disease Father Heart disease Surgical History H/O shoulder surgery History of hip surgery Social History (Updated 02/02/21 @ 16:[address] Kavon Hughes MD) household members: spouse Smoking Status: Never smoker alcohol intake: current Alcohol type: other substance use type: does not use ROS ROS ED Constitutional Constitutional ED: Denies chills, fever(s), subjective or sweats Eyes Eyes: Denies blurry vision, change in vision or diplopia ENT ENT ED: Denies ear pain, rhinorrhea or sore throat Cardiovascular Cardiovascular: Reports palpitations and racing heartbeat; Denies chest pain, orthopnea or paroxysmal nocturnal dyspnea Respiratory/Chest Respiratory/Chest: Reports dyspnea and dyspnea on exertion; Denies cough, orthopnea, paroxysmal nocturnal dyspnea or sputum Gastrointestinal Gastrointestinal: Denies abdominal pain, diarrhea, melena, nausea or vomiting Genitourinary Genitourinary ED: Denies dysuria, hematuria or urinary frequency Musculoskeletal Musculoskeletal: Denies arthralgias, myalgias or neck pain Integumentary Denies rash Neurologic Neurologic: Denies headache(s) or weakness Endocrine Endocrinology: Denies polydipsia, polyphagia or polyuria Allergic/Immunologic Allergic/Immunologic ED: Denies mouth swelling, tongue swelling or urticaria EXAM Physical Exam Const Vital Signs: 02/02/21 15:11 02/02/21 15:34 02/02/21 15:41 Temperature 98.3 F Temperature Source Oral Pulse Rate 154 H Pulse Rate [1 (Initial Baseline)] Respiratory Rate 16 Respiratory Rate [1 (Initial Baseline)] Blood Pressure 99/77 125/56 H Blood Pressure [1 (Initial Baseline)] Blood Pressure Mean 84 79 Pulse Ox 100 Oxygen Delivery Method Room Air Nasal Cannula Oxygen Delivery Method [1 (Initial Baseline)] Oxygen Flow Rate (L/min) Oxygen Flow Rate (L/min) [1 (Initial Baseline)] 02/02/21 16:00 02/02/21 16:19 02/02/21 16:25 Temperature Temperature Source Pulse Rate 147 H 70 Pulse Rate [1 (Initial Baseline)] 140 H Respiratory Rate 18 16 Respiratory Rate [1 (Initial Baseline)] 18 Blood Pressure 114/77 119/63 Blood Pressure [1 (Initial Baseline)] 102/72 Blood Pressure Mean Pulse Ox 98 98 Oxygen Delivery Method Room Air Nasal Cannula Oxygen Delivery Method [1 (Initial Baseline)] Nasal Cannula Oxygen Flow Rate (L/min) 2 2 Oxygen Flow Rate (L/min) [1 (Initial Baseline)] 2 02/02/21 16:30 02/02/21 16:34 02/02/21 16:35 Temperature Temperature Source Pulse Rate 65 65 68 Pulse Rate [1 (Initial Baseline)] Respiratory Rate 16 16 24 H Respiratory Rate [1 (Initial Baseline)] Blood Pressure 122/72 H 122/72 H Blood Pressure [1 (Initial Baseline)] Blood Pressure Mean 88 Pulse Ox 98 99 98 Oxygen Delivery Method Nasal Cannula Room Air Nasal Cannula Oxygen Delivery Method [1 (Initial Baseline)] Oxygen Flow Rate (L/min) 2 1 Oxygen Flow Rate (L/min) [1 (Initial Baseline)] 02/02/21 16:41 02/02/21 17:25 02/02/21 18:34 Temperature Temperature Source Pulse Rate 70 74 72 Pulse Rate [1 (Initial Baseline)] Respiratory Rate 24 H 16 16 Respiratory Rate [1 (Initial Baseline)] Blood Pressure 126/110 H 120/54 L 124/60 H Blood Pressure [1 (Initial Baseline)] Blood Pressure Mean 76 81 Pulse Ox 99 98 98 Oxygen Delivery Method Room Air Room Air Room Air Oxygen Delivery Method [1 (Initial Baseline)] Oxygen Flow Rate (L/min) Oxygen Flow Rate (L/min) [1 (Initial Baseline)] 02/02/21 19:15 Temperature Temperature Source Pulse Rate 74 Pulse Rate [1 (Initial Baseline)] Respiratory Rate 16 Respiratory Rate [1 (Initial Baseline)] Blood Pressure 116/58 L Blood Pressure [1 (Initial Baseline)] Blood Pressure Mean 77 Pulse Ox 98 Oxygen Delivery Method Room Air Oxygen Delivery Method [1 (Initial Baseline)] Oxygen Flow Rate (L/min) Oxygen Flow Rate (L/min) [1 (Initial Baseline)] Positive well nourished, well developed and obese General Appearance ED: well developed and other She has delayed capillary refill and is mottled lower extremities Nutritional Appearance: obese HEENT Reports TM's clear and moist mucous membranes HEENT Narrative: Uvula is midline. There is no erythema or exudate. Negative for trauma or tenderness Tympanic Membrane ED: Yes TM's clear Eyes PERRL and EOMs intact bilaterally General Eye ED: Negative for pale conjunctiva or scleral icterus Neck no lymphadenopathy, supple and no JVD Neck Narrative: Trachea is midline. There is no inspiratory expiratory stridor. Chest Wall inspection of chest normal and palpation of chest normal Resp normal respiratory effort and clear to auscultation bilaterally Cardio regular rhythm, S1 normal heart sound, S2 normal heart sound and no murmurs Rate: tachycardic GI normal to inspection, nondistended, normoactive bowel sounds and non-tender Back/Spine no CVA tenderness Cervical Spine: Negative for cervical spine tenderness Thoracic Spine / Upper Back: Negative for thoracic spinal tenderness or paraspinal muscle tenderness Lumbar Spine / Lower Back: Negative for lumbar spinal tenderness Extremity normal to inspection Neuro oriented x3 and No CN's II-XII intact bilaterally Sensorium / Orientation: Negative for alert Motor Exam: strength 5/5 throughout Psych mental status grossly normal Skin no rashes or lesions noted MDM MDM MDM Narrative Medical decision making narrative: Patient appears to be in cardiogenic shock due to atrial flutter. Patient was explained risk benefits of cardioversion. He has no allergy to soy products or egg products. He denies history of obstructive sleep apnea. He is on an anticoagulant. Since he is hypotensive mottled with an elevated lactate plan is cardioversion. Lab Data Attestation: I reviewed the patient's lab results. Lab results narrative: Suspect patient's elevated lactate was due to poor perfusion low/marginal hypotension. Will repeat. If normalized will discharge to home. Labs: Laboratory Results - last 24 hr 02/02/21 02/02/21 02/02/21 15:20 15:20 15:30 WBC 8.3 RBC 4.33 L Hgb 13.4 Hct 39.6 L MCV 91.5 MCH 30.9 MCHC 33.8 RDW Std Deviation 49.0 H RDW Coeff of Maciel 14.6 Plt Count 262 MPV 9.9 Immature Gran % (Auto) 0.200 Neut % (Auto) 59.0 Lymph % (Auto) 28.3 [place] % (Auto) 7.1 Eos % (Auto) 4.7 Baso % (Auto) 0.7 Absolute Neuts (auto) 4.9 Absolute Lymphs (auto) 2.36 Nucleated RBC % 0 Sodium 140 Potassium 3.6 Chloride 102 Carbon Dioxide 30.0 Anion Gap 8 BUN 26 H Creatinine 1.99 H Estim Creat Clear Calc 40.76 Est GFR (MDRD) Af Amer 44 L Est GFR (MDRD) Non-Af 37 L BUN/Creatinine Ratio 13.1 Glucose 162 H Lactic Acid 2.4 H* Calcium 8.8 Troponin I < 0.015 02/02/21 19:04 WBC RBC Hgb Hct MCV MCH MCHC RDW Std Deviation RDW Coeff of Maciel Plt Count MPV Immature Gran % (Auto) Neut % (Auto) Lymph % (Auto) [place] % (Auto) Eos % (Auto) Baso % (Auto) Absolute Neuts (auto) Absolute Lymphs (auto) Nucleated RBC % Sodium Potassium Chloride Carbon Dioxide Anion Gap BUN Creatinine Estim Creat Clear Calc Est GFR (MDRD) Af Amer Est GFR (MDRD) Non-Af BUN/Creatinine Ratio Glucose Lactic Acid 1.8 Calcium Troponin I Repeat lactate is normal. Patient been hemodynamically stable since cardioversion. Case discussed with Dr. Claritza BARAHONA car repairer apprentice pss delivery professional. Patient to call office to follow-up with either Dr. Abdoul Orozco or Dr. Kevin Bourgeois. ABG Data ABG results: ABG 02/02/21 16:34 Specimen Type MITCHELL VBG pH 7.47 H VBG pO2 33 VBG HCO3 29 H VBG Total CO2 30 VBG O2 Sat (Calc) 67 VBG Base Excess 5 H POC Mix VBG pCO2 Pt Tmp 39.3 L EKG Initial EKG: Attestation: I personally reviewed and interpreted this EKG as follows: Interpretation: Atrial Flutter (Ventricular rate 150 FL interval 80 ms. QRS duration 82 ms. QT duration 346 ms. Koppel is normal.) Prior: Changed Follow-up EKG: Attestation: I personally reviewed and interpreted this EKG as follows: Interpretation: Sinus Rhythm Comments: Sinus rhythm with a ventricular rate of 64 and premature atrial beats. FL interval is 202 ms. Cures duration 94 ms. QT duration 402 ms. Koppel is normal. There is evidence of low voltage. There is no acute ischemic changes. This EKG was obtained after cardioversion. Treatment and Re-Evaluation Comments:: A 30 EKG was obtained because of irregularity noted on the monitor by the nurse. EKG reveals a sinus rhythm with a first-degree AV block with premature atrial beats. There is no premature ventricular beats. Ventricular rate is 73. FL interval is 216 ms. Cures duration 94 ms. QT duration 408 ms. There is evidence of low voltage most likely due to body habitus. Procedures Other Procedures Procedure(s): 1. Deep sedation using propofol, patient due 0.5 mg/kg IV push 2. Cardioversion Patient was explained risk benefits of deep sedation using propofol. He has no contraindication. Had no prior complications with general anesthesia. Patient was informed of the risk benefits of cardioversion. He was given opportunity ask questions. None were asked. Patient received a total of 80 mg of propofol. Once desired effect was achieved he was successfully cardioverted using 200 J. Total time for procedure 3 minutes Rhythm prior to administration of the beds was a flutter with a 2-1 block and rate of 149. Patient was noted to be in a sinus rhythm with a rate of 82 after cardioversion with no ectopy. Critical Care Time Critical care time (excluding procedures): 30-74 minutes (37 minutes), Including time spent: (Obtaining history, performing a physical examination, documentation, discussing risk benefits of administration of propofol and performing cardioversion.), Discussing w/Patient &/or Family/Desktop Operator and Discussing w/Consultants Discharge Plan Triage Chief Complaint: General Illness ED Provider: Kavon Hughes Dx/Rx/DC Orders Clinical Impression: Atrial flutter, Acidosis, lactic, Acute hypotension Instructions: ED Atrial Flutter Prescriptions: No Action aspirin [Adult Low Dose Aspirin] 81 MG tablet,delayed release (DR/EC) 81 mg PO DAILY RF: 0 ferrous sulfate 325 MG tablet 325 mg PO DAILY RF: 0 cholecalciferol (vitamin D3) 5,000 UNIT capsule 1,250 unit PO QHS RF: 0 alprazolam 0.5 MG tablet 0.5 mg PO DAILY PRN (Reason: Anxiety) RF: 0 fluoxetine 20 MG capsule 20 mg PO DAILY RF: 0 ursodiol [PAT 250] 250 MG tablet 250 mg PO DAILY@1400 RF: 0 torsemide 20 MG tablet 40 mg PO DAILY RF: 0 metoprolol tartrate 25 MG tablet 25 mg PO DAILY RF: 0 oxycodone 5 MG tablet 10 mg PO Q6H PRN PRN (Reason: Pain) RF: 0 morphine 15 mg tablet extended release 15 mg PO BID RF: 0 potassium chloride 10 mEq tablet,ER particles/crystals 10 meq PO DAILY RF: 0 Eliquis 5 mg tablet 5 mg PO DAILY RF: 0 tacrolimus 0.5 mg capsule 0.5 mg PO BID RF: 0 Primary Care Provider: Raul Uribe Referrals: Abdoul Orozco MD [STAFF PHYSICIAN] - As soon as possible Raul Uribe MD [Primary Care Provider] - Disposition Disposition: Home, self care
[2021-02-02 16:40] LABS: Blood Gas Specimen Type VEN; VBG BASE EXCESS 5 mmol/L (-1.0-3.5); VBG Bicarbonate 29 mmol/L (22-26); VBG PO2 33 mmHg (25-40); VBG SO2 67 % (50-70); VBG TCO2 30 mmol/L (23-33); VBG pCO2 39.3 mmHg (41-51); VBG pH 7.47 (7.32-7.42)
--- NOTE | 2021-02-02 16:47 | ED.RN ---
Still needs to take the following medications tonight: tacrolimus, ursodiol, potassium, asa, eliquis and morphine...med list and allergy list has been confirmed by daughter, patient and
--- NOTE | 2021-02-02 18:38 | NURSING ---
Patient in irregular rhythm -- Dr Hughes aware and ecg called for recheck
--- NOTE | 2021-02-02 18:48 | EKG12_ITS ---
Test Reason : REPEAT Blood Pressure : / mmHG Vent. Rate : 073 BPM Atrial Rate : 060 BPM P-R Int : 216 ms QRS Dur : 094 ms QT Int : 408 ms P-R-T Axes : 072 -18 008 degrees QTc Int : 449 ms Sinus rhythm with 1st degree A-V block with Premature atrial complexes Low voltage QRS Borderline ECG Confirmed by CARLA SHIPMAN, SUGAR ([id number]), newspaper copy editor JULIO CÉSAR SOLORIO ([id number]) on 02/06/2021 9:52:34 AM Referred By: ETHEL Confirmed By:SUGAR AGUIRRE MD
[2021-02-02 19:31] LABS: Reflex Lactate? Y
[2021-02-02 19:37] LABS: Lactic Acid 1.8 mmol/L (0.4-1.9)
== END 2021-02-02 19:57 | disposition home or self-care (01) ==
PROVIDERS: Emergency Provider Emergency Medicine; PCP Family Medicine
DX: I48.92 Unspecified atrial flutter (principal); I95.9 Hypotension, unspecified; E87.2 Acidosis; I48.91 Unspecified atrial fibrillation; I25.10 Atherosclerotic heart disease of native coronary artery without angina pectoris; I50.9 Heart failure, unspecified; K74.60 Unspecified cirrhosis of liver; E66.01 Morbid (severe) obesity due to excess calories; Z79.01 Long term (current) use of anticoagulants; Z79.82 Long term (current) use of aspirin; Z79.899 Other long term (current) drug therapy
CPT/HCPCS: 80048; 82803; 83605; 84484; 85025; 93005; 96374; 99285; J7030; J7040; A4216

== ENCOUNTER 2021-02-07 00:16 | Emergency (ER) | payer MEDICARE, SELFPAY ==
[2021-02-02 15:11] VITALS: BMI 50.5
[2021-02-07 00:18] VITALS: BP 142/78; PULSE 68; RESP 20; TEMP 36.7; O2SAT 100; BMI 51.0
--- NOTE | 2021-02-07 00:42 | EKG12_ITS ---
Test Reason : CP Blood Pressure : / mmHG Vent. Rate : 067 BPM Atrial Rate : 067 BPM P-R Int : 190 ms QRS Dur : 092 ms QT Int : 414 ms P-R-T Axes : 037 -34 017 degrees QTc Int : 437 ms Normal sinus rhythm Left axis deviation Possible Lateral infarct , age undetermined Abnormal ECG Confirmed by SAHIL SHIPMAN, ROULA ([id number]), manager editorial PEARL MONACO ([id number]) on 02/10/2021 8:16:30 AM Referred By: BB Confirmed By:ROULA BAXTER MD
--- NOTE | 2021-02-07 00:43 | EDS_ITS ---
HPI History of Present Illness Chief Complaint: Palpitations Informant: patient and spouse/S.O. Onset/Context/Timing Onset: Hours (less than 1) Context: Sudden Onset Timing: Intermittent and Lasts (20-30 min) Quality: skipping/racing Location: chest Current Severity: Gone Maximum Severity: Mild Worsened by: nothing Relieved by: nothing in particular - abated while in ambulance en route Associated Symptoms Associated Symptoms: mild chest pressure, also resolved Narrative Narrative: Patient states he knows when he goes into atrial fibrillation, he was just here for persistent atrial fib and was cardioverted successfully, and he felt himself go into it again just prior to coming here. He states prior to arrival, it stopped and now he feels back to normal. He had some mild chest pressure with that that also resolved, he states whenever he has gone into atrial fibrillation in the past, he has experienced the same symptoms and this is no different. He now feels fine, no recent illness, no leg pain or swelling out of ordinary for him. Denies any lightheadedness or near syncope. [facility] Medical History (HFpEF) heart failure with preserved ejection fraction Acidosis, lactic Acute hypotension Anemia of chronic disease Ascites Atherosclerotic heart disease of [place] coronary artery without angina pectoris Atrial fibrillation Atrial flutter with rapid ventricular response (02/02/21) Cellulitis Cirrhosis Coronary artery disease History of non-ST elevation myocardial infarction (NSTEMI) (12/29/20) Kidney disease Morbid obesity Multiple falls Nonsustained paroxysmal ventricular tachycardia (12/2020) Venous insufficiency Vertigo, central Home Medications aspirin [Adult Low Dose Aspirin] 81 mg PO DAILY 10/21/15 [History Last Taken 02/02/21] ferrous sulfate 325 mg PO DAILY 12/25/18 [History Last Taken 02/01/21] alprazolam 0.5 mg PO DAILY PRN 04/07/19 [History Last Taken 02/01/21] cholecalciferol (vitamin D3) 1,250 unit PO QHS 04/07/19 [History Last Taken 02/01/21] fluoxetine 20 mg PO DAILY 04/07/19 [History Last Taken 02/02/21] ursodiol [PAT 250] 250 mg PO DAILY@1400 04/07/19 [History Last Taken 02/02/21] metoprolol tartrate 25 mg PO DAILY 05/23/20 [History Last Taken 02/02/21] torsemide 40 mg PO DAILY 05/23/20 [History Last Taken 02/02/21] oxycodone 10 mg PO Q6H PRN PRN 12/29/20 [History Last Taken 01/31/21] apixaban [Eliquis] 5 mg PO DAILY 01/19/21 [History Last Taken 02/02/21] morphine 15 mg PO BID 01/19/21 [History Last Taken 02/02/21] potassium chloride 10 meq PO DAILY 01/19/21 [History Last Taken 02/02/21] tacrolimus 0.5 mg PO BID 02/02/21 [History Last Taken 02/02/21] Allergy/AdvReac Type Severity Reaction Status Date / Time pravastatin [From Pravachol] Allergy Hives Verified 02/07/21 00:22 Aqnicpv-Fcj-Oht Reductase Allergy Hives Verified 02/07/21 00:22 Inhibitor vancomycin Allergy NEEDS Verified 02/07/21 00:22 FOLLOW-UP zolpidem tartrate Allergy Hives Verified 02/07/21 00:22 [From Ambien] everolimus AdvReac Swelling Verified 02/07/21 00:22 gabapentin AdvReac NEEDS Verified 02/07/21 00:22 FOLLOW-UP lactulose AdvReac Upset Verified 02/07/21 00:22 Stomach Family History Mother Heart disease Father Heart disease Surgical History H/O shoulder surgery History of cardioversion (02/02/21) History of hip surgery Status post liver transplant (07/2017) Social History household members: spouse Smoking Status: Never smoker alcohol intake: current Alcohol type: other substance use type: does not use ROS ROS ED Constitutional Constitutional ED: Denies chills or fever(s) Eyes Eyes: Denies change in vision or diplopia ENT ENT ED: Denies rhinorrhea or sore throat Cardiovascular Cardiovascular: Reports as per HPI, chest pain and irregular heart rhythm Respiratory/Chest Respiratory/Chest: Denies cough or dyspnea Gastrointestinal Gastrointestinal: Denies abdominal pain, diarrhea, nausea or vomiting Genitourinary Genitourinary ED: Denies dysuria or hematuria Musculoskeletal Musculoskeletal: Denies back pain or neck pain Integumentary Denies abscess or rash Neurologic Neurologic: Denies headache(s), paresthesias or weakness Psychiatric Psychiatric: Denies anxiety or suicidal thoughts EXAM Physical Exam Const Vital Signs: 02/07/21 00:18 02/07/21 00:24 Temperature 98.1 F Temperature Source Temporal Pulse Rate 68 Respiratory Rate 20 H Respiratory Effort Normal Blood Pressure 142/78 H Blood Pressure Mean 99 Pulse Ox 100 Oxygen Delivery Method Room Air Positive well nourished and well developed General Appearance ED: well developed and NAD HEENT Reports moist mucous membranes normocephalic and atraumatic Eyes PERRL and EOMs intact bilaterally Neck full ROM and supple Resp normal respiratory effort and clear to auscultation bilaterally Cardio regular rate, regular rhythm and no murmurs GI non-tender and non-distended Auscultation: normoactive bowel sounds Palpation: soft Back/Spine no CVA tenderness General Back: other FROM Extremity normal to inspection General Extremety ED: Negative for edema, pulses abnormal or tenderness General Extremity: Negative for edema or pulses abnormal Neuro oriented x3, CN's II-XII intact bilaterally and no sensory deficits noted Sensorium / Orientation: awake and alert Motor Exam: strength 5/5 throughout Skin no rashes or lesions noted and no wounds MDM MDM MDM Narrative Medical decision making narrative: Patient just had CBC and chemistries done 4 days ago I do not think there is need to be repeated. I did repeat his troponin which is negative. He was monitored for an hour or so, he had no recurrence of any symptoms or dysrhythmias/atrial fibrillation. I do not think he needs a delta in this scenario since he was not having angina and tends to get mild discomfort every time he goes into atrial fibrillation, and he has no signs of repolarization abnormalities on the EKG or ST segment deviations. We discussed reasons to return, which include persistent atrial fibrillation. I discussed the likelihood that many episodes of paroxysmal atrial fibrillation, of which he has a history, resolve on their own and that we can cardiovert him up to 48 hours after the beginning of an episode safely, even if he was not anticoagulated, which he is. 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 We discussed reasons to return he is comfortable with that plan. Lab Data Attestation: I reviewed the patient's lab results. Labs: Laboratory Results - last 24 hr 02/07/21 00:53 Troponin I < 0.015 EKG Initial EKG: Attestation: I personally reviewed and interpreted this EKG as follows: Interpretation: Sinus Rhythm, No Acute Injury Pattern and LAFB Discharge Plan Triage Chief Complaint: Palpitations Other Complaint: Chest Pain ED Provider: Guido Haile Dx/Rx/DC Orders Clinical Impression: PAF (paroxysmal atrial fibrillation) Instructions: ED AFIB Prescriptions: No Action aspirin [Adult Low Dose Aspirin] 81 MG tablet,delayed release (DR/EC) 81 mg PO DAILY RF: 0 ferrous sulfate 325 MG tablet 325 mg PO DAILY RF: 0 cholecalciferol (vitamin D3) 5,000 UNIT capsule 1,250 unit PO QHS RF: 0 alprazolam 0.5 MG tablet 0.5 mg PO DAILY PRN (Reason: Anxiety) RF: 0 fluoxetine 20 MG capsule 20 mg PO DAILY RF: 0 ursodiol [PAT 250] 250 MG tablet 250 mg PO DAILY@1400 RF: 0 torsemide 20 MG tablet 40 mg PO DAILY RF: 0 metoprolol tartrate 25 MG tablet 25 mg PO DAILY RF: 0 oxycodone 5 MG tablet 10 mg PO Q6H PRN PRN (Reason: Pain) RF: 0 morphine 15 mg tablet extended release 15 mg PO BID RF: 0 potassium chloride 10 mEq tablet,ER particles/crystals 10 meq PO DAILY RF: 0 Eliquis 5 mg tablet 5 mg PO DAILY RF: 0 tacrolimus 0.5 mg capsule 0.5 mg PO BID RF: 0 Primary Care Provider: Raul Uribe Referrals: Dr. Regina [Other] - Keep [facility] appointment Raul Uribe MD [Primary Care Provider] - Disposition Disposition: Home, self care
[2021-02-07 01:21] VITALS: BP 132/61; PULSE 64; RESP 16; TEMP 36.7; O2SAT 98
== END 2021-02-07 01:29 | disposition home or self-care (01) ==
PROVIDERS: Emergency Provider Emergency Medicine; PCP Family Medicine
DX: I48.0 Paroxysmal atrial fibrillation (principal); R07.9 Chest pain, unspecified; I50.32 Chronic diastolic (congestive) heart failure; K74.60 Unspecified cirrhosis of liver; I25.10 Atherosclerotic heart disease of native coronary artery without angina pectoris; D63.8 Anemia in other chronic diseases classified elsewhere; R29.6 Repeated falls; E66.01 Morbid (severe) obesity due to excess calories; Z79.01 Long term (current) use of anticoagulants; Z79.82 Long term (current) use of aspirin; Z79.899 Other long term (current) drug therapy; I25.2 Old myocardial infarction; Z94.4 Liver transplant status
CPT/HCPCS: 84484; 93005; 99285; A4216

== ENCOUNTER 2022-03-31 08:59 | Emergency (ER) | payer MEDICARE, SELFPAY ==
[2022-03-31 09:01] VITALS: BP 117/81; PULSE 76; RESP 20; TEMP 36.6; O2SAT 98; BMI 47.3
[2022-03-31 09:09] VITALS: BMI 47.8
--- NOTE | 2022-03-31 09:36 | EDS_ITS ---
HPI History of Present Illness HPI Narrative: Patient presents with left shoulder injury that occurred after a fall today. Patient states he tripped and fell against the wall. Patient states his left shoulder hit the wall. Patient states he did hit his head but denies any loss of consciousness. Patient states his pain goes up into his neck. Patient denies any paresthesias or weakness. Patient states his left shoulder feels like it is dislocated. Patient states he has a left total shoulder replacement. Patient describes his pain as sharp. Patient states the pain is worse with any movement. Chief Complaint: Disclocation Informant: patient Occured/Mechanism Mechanism/Context: Yes fall Onset/Context/Timing Context: Sudden Onset Timing: Continuous Quality of Pain: Sharp Location: Left shoulder and left neck Worsened by: Movement Relieved by: Rest Associated Symptoms Associated Symptoms: Negative for Parasthesia, Weakness or Loss of Funtion PFSH PFS Medical History (HFpEF) heart failure with preserved ejection fraction Acidosis, lactic Acute hypotension Anemia of chronic disease Ascites Atherosclerotic heart disease of [place] coronary artery without angina pectoris Atrial fibrillation Atrial flutter with rapid ventricular response (02/02/21) Cellulitis Cirrhosis Coronary artery disease History of non-ST elevation myocardial infarction (NSTEMI) (12/29/20) Kidney disease Morbid obesity Multiple falls Nonsustained paroxysmal ventricular tachycardia (12/2020) Venous insufficiency Vertigo, central Home Medications aspirin 81 mg tablet,delayed release (Adult Low Dose Aspirin) 81 mg PO DAILY health maintenance 10/21/15 [History Last Taken 02/02/21] ferrous sulfate 325 mg (65 mg iron) tablet 325 mg PO DAILY anemia 12/25/18 [History Last Taken 02/01/21] alprazolam 0.5 mg tablet 0.5 mg PO DAILY PRN Anxiety 04/07/19 [History Last Taken 02/01/21] cholecalciferol (vitamin D3) 125 mcg (5,000 unit) capsule 1,250 unit PO QHS 04/07/19 [History Last Taken 02/01/21] fluoxetine 20 mg capsule 20 mg PO DAILY depression/anxiety 04/07/19 [History Last Taken 02/02/21] ursodiol 250 mg tablet (PAT 250) 250 mg PO DAILY@1400 04/07/19 [History Last Taken 02/02/21] metoprolol tartrate 25 mg tablet 25 mg PO DAILY 05/23/20 [History Last Taken 02/02/21] torsemide 20 mg tablet 40 mg PO DAILY FLUID 05/23/20 [History Last Taken 02/02/21] oxycodone 5 mg tablet 10 mg PO Q6H PRN PRN Pain 12/29/20 [History Last Taken 01/31/21] apixaban 5 mg tablet (Eliquis) 5 mg PO DAILY 01/19/21 [History Last Taken 02/02/21] morphine 15 mg tablet,extended release 15 mg PO BID 01/19/21 [History Last Taken 02/02/21] potassium chloride 10 mEq tablet,extended release(part/cryst) 10 meq PO DAILY 01/19/21 [History Last Taken 02/02/21] tacrolimus 0.5 mg capsule, immediate-release 0.5 mg PO BID IMMUNE 02/02/21 [History Last Taken 02/02/21] oxycodone-acetaminophen 5 mg-325 mg tablet 1 tab PO Q6H PRN PRN Pain 3 days #12 TABLETS 03/31/22 [Rx Last Taken Unknown] Allergy/AdvReac Type Severity Reaction Status Date / Time pravastatin [From Pravachol] Allergy Hives Verified 03/31/22 09:02 Elrgvpx-HBR-FfO Reductase Allergy Hives Verified 03/31/22 09:02 Inhibitor [Spymkxd-Clw-Yfv Reductase Inhibitor] vancomycin Allergy NEEDS Verified 03/31/22 09:02 FOLLOW-UP zolpidem tartrate Allergy Hives Verified 03/31/22 09:02 [From Ambien] everolimus AdvReac Swelling Verified 03/31/22 09:02 gabapentin AdvReac NEEDS Verified 03/31/22 09:02 FOLLOW-UP lactulose AdvReac Upset Verified 03/31/22 09:02 Stomach Family History Mother Heart disease Father Heart disease Surgical History H/O shoulder surgery History of cardioversion (02/02/21) History of hip surgery Status post liver transplant (07/2017) Social History household members: spouse Smoking Status: Never smoker alcohol intake: current Alcohol type: other substance use type: does not use ROS ROS ED Constitutional Constitutional ED: Denies chills or fever(s) Eyes Eyes: Denies blurry vision or change in vision ENT ENT ED: Denies rhinorrhea or sore throat Cardiovascular Cardiovascular: Denies chest pain or palpitations Respiratory/Chest Respiratory/Chest: Denies cough or dyspnea Gastrointestinal Gastrointestinal: Denies nausea or vomiting Genitourinary Genitourinary ED: Denies dysuria or hematuria Musculoskeletal Musculoskeletal: Reports neck pain; Denies back pain Integumentary Denies abscess or rash Neurologic Neurologic: Reports headache(s); Denies weakness Allergic/Immunologic Allergic/Immunologic ED: Denies mouth swelling or urticaria EXAM Physical Exam Const Vital Signs: 03/31/22 09:01 Temperature 97.9 F Temperature Source Temporal Pulse Rate 76 Respiratory Rate 20 H Blood Pressure 117/81 H Blood Pressure Mean 93 Pulse Ox 98 Oxygen Delivery Method Room Air Positive well nourished, well developed and obese General Appearance ED: well developed and NAD Nutritional Appearance: obese HEENT Reports moist mucous membranes Neck full ROM Neck Narrative: There is some left cervical paraspinal tenderness. There is no midline tenderness. There is no bony crepitance or step-off. General: tenderness Extremity Extremity Narrative: There is tenderness over the left shoulder. There is a questionable deformity of the left shoulder. Range of motion was limited in all motions of the left shoulder secondary to pain. Radial pulses are equal bilaterally. Strength is 5/5 in the radial, median, and ulnar areas. Sensation was intact to light touch in the radial, median, ulnar, and axillary areas. Neuro oriented x3, CN's II-XII intact bilaterally, moves all extremities, no focal motor deficits and no sensory deficits noted Sensorium / Orientation: alert Motor Exam: strength 5/5 throughout Psych mental status grossly normal MDM MDM MDM Narrative Medical decision making narrative: Patient was given a dose of morphine here. X-rays of the left shoulder were obtained. There are 3 views. On my interpretation, there is no acute fracture or dislocation. The prosthesis is in place. Radiologist also interpreted the x-rays and agrees. Patient was advised of his findings. Patient was given a prescription for a short course of Percocet. Patient was instructed to use ice to the area. Patient was instructed to follow-up with his primary care physician and orthopedic surgeon in 5 to 7 days. Patient understood and was agreeable with the plan. All questions were answered. Discharge Plan Triage Chief Complaint: Disclocation ED Provider: Claudio Phipps Dx/Rx/DC Orders Clinical Impression: Contusion of left shoulder, initial encounter, Liver transplant recipient, Chronic renal failure, stage 3 (moderate) Instructions: ED Contusion, Upper Extremity Prescriptions: New oxycodone-acetaminophen [oxycodone-acetaminophen] 5-325 mg tablet 1 tab PO Q6H PRN PRN (Reason: Pain) 3 Days Qty: 12 0RF No Action aspirin [Adult Low Dose Aspirin] 81 MG tablet,delayed release (DR/EC) 81 mg PO DAILY Label Comments: heart health Rx Instructions: needs tonights dose ferrous sulfate 325 MG tablet 325 mg PO DAILY Label Comments: take 1 tablet by mouth twice a day cholecalciferol (vitamin D3) 5,000 UNIT capsule 1,250 unit PO QHS alprazolam 0.5 MG tablet 0.5 mg PO DAILY PRN (Reason: Anxiety) Label Comments: TAKE 1 TABLET BY MOUTH EVERY DAY NEEDED FOR ANXIETY fluoxetine 20 MG capsule 20 mg PO DAILY ursodiol [PAT 250] 250 MG tablet 250 mg PO DAILY@1400 Label Comments: Take 1 tablet by mouth three times daily. still needs tonights dose torsemide 20 MG tablet 40 mg PO DAILY metoprolol tartrate 25 MG tablet 25 mg PO DAILY Rx Instructions: Hold if heart rate is less than 60/min oxycodone 5 MG tablet 10 mg PO Q6H PRN PRN (Reason: Pain) morphine 15 mg tablet extended release 15 mg PO BID Rx Instructions: needs tonights dose potassium chloride 10 mEq tablet,ER particles/crystals 10 meq PO DAILY Label Comments: Take 1 tablet by mouth once daily. Rx Instructions: needs tonights dose Eliquis 5 mg tablet 5 mg PO DAILY Label Comments: needs tonights dose tacrolimus 0.5 mg capsule 0.5 mg PO BID Label Comments: 1 capsule by mouth as directed Rx Instructions: needs to take tonight still Primary Care Provider: Raul Uribe Referrals: Raul Uribe MD [Primary Care Provider] - 5-7 Days Disposition Disposition: Home, Self Care
[2022-03-31] MEDS: Morphine 4 MG/ML Syringe IV (09:47)
--- NOTE | 2022-03-31 10:00 | RAD_ITS ---
STUDY: X-RAY - LEFT SHOULDER REASON FOR EXAM: Male, 61 years old. Pain in left shoulder after falling this morning TECHNIQUE: 3 view(s) of the shoulder. COMPARISON: 05/23/2020 FINDINGS: Left shoulder replacement in gross alignment. Additional surgical hardware in the proximal left humerus since prior study. Normal acromioclavicular joint. Normal acromion. Normal humeral head and visualized proximal humerus. The soft tissue structures are unremarkable. Normal visualized pulmonary apex. RAD/Shoulder min 2 Views IMPRESSION: 1. No fracture or malalignment. 2. Left shoulder replacement. Electronically Signed: Isaak Lake MD (Brooks) at 10:31 EDT ,
== END 2022-03-31 10:53 | disposition home or self-care (01) ==
PROVIDERS: Emergency Provider Emergency Medicine; PCP Family Medicine; Visit Provider Emergency Medicine
DX: S40.012A Contusion of left shoulder, initial encounter (principal); M54.2 Cervicalgia; W18.09XA Striking against other object with subsequent fall, initial encounter; I50.32 Chronic diastolic (congestive) heart failure; N18.30 Chronic kidney disease, stage 3 unspecified; I25.10 Atherosclerotic heart disease of native coronary artery without angina pectoris; E66.01 Morbid (severe) obesity due to excess calories; I25.2 Old myocardial infarction; Z79.82 Long term (current) use of aspirin; Z79.01 Long term (current) use of anticoagulants; Z79.899 Other long term (current) drug therapy; Z94.4 Liver transplant status; Z96.612 Presence of left artificial shoulder joint
CPT/HCPCS: 73030; 96374; 99283; A4216

== ENCOUNTER 2022-06-19 12:43 | Inpatient (IN) | payer MEDICARE, SELFPAY ==
[2022-06-19] VITALS (15 sets, daily range): BP systolic 74–135; BP diastolic 38–112; PULSE 42–154; RESP 10–18; TEMP 36.1–36.7; O2SAT 100; BMI 50.1
--- NOTE | 2022-06-19 13:39 | EKG12_ITS ---
Test Reason : REPEAT-RHYTHM CHANGE Blood Pressure : / mmHG Vent. Rate : 054 BPM Atrial Rate : 054 BPM P-R Int : 284 ms QRS Dur : 092 ms QT Int : 400 ms P-R-T Axes : 073 -33 021 degrees QTc Int : 379 ms Sinus bradycardia with 1st degree A-V block Left axis deviation Low voltage QRS Abnormal ECG Confirmed by CARLA SHIPMAN, SUGAR ([id number]), website/blog editor JULIO CÉSAR SOLORIO ([id number]) on 06/21/2022 12:30:36 PM Referred By: Confirmed By:SUGAR AGUIRRE MD
--- NOTE | 2022-06-19 13:39 | RAD_ITS ---
STUDY: X-RAY CHEST REASON FOR EXAM: Male, 61 years old. Chest pain, tachycardia TECHNIQUE: Single AP portable view of the chest. COMPARISON: Comparison is made with prior study 01/19/2021. FINDINGS: EKG electrodes are seen. Stable mild elevation of the right hemidiaphragm. The lungs are clear. There is no demonstrated pleural abnormality. Normal size heart. Normal mediastinum and debora. Normal visualized pulmonary arteries. Normal visualized aortic arch and descending thoracic aorta. Normal visualized thoracic spine. The patient is status post left shoulder replacement. There is no demonstrated abnormality of the visualized soft tissue structures of the upper abdomen. RAD/Chest 1 View (Portable) IMPRESSION: Stable examination. No acute abnormality is seen. Electronically Signed: Pelon Garham MD at 14:16 EDT ,
--- NOTE | 2022-06-19 13:42 | EDS_ITS ---
HPI History of Present Illness Chief Complaint: General Illness Detail of Chief Complaint: Not feeling well for several months Informant: patient Narrative Narrative: Patient presents the emergency department complaint not feeling well. Patient had an appointment to see his doctor today at 1:40 PM. Patient states that when his came home he was nauseated and did not feel well so they came to the emergency department. Patient's been dealing with vertigo for months. He complains of some intermittent chest discomfort. Patient complains of just generalized weakness. Has had some issues with constipation. His daughter states that has been more agitated and she is worried about his ammonia level. He had decreased urine output. Urine is darker than usual. Patient does have history of A. fib but is normally in sinus rhythm and is not anticoagulated currently. Patient had liver transplant in 2017. [facility] Medical History (HFpEF) heart failure with preserved ejection fraction Acidosis, lactic Acute hypotension Anemia of chronic disease Ascites Atherosclerotic heart disease of [place] coronary artery without angina pectoris Atrial fibrillation Atrial flutter with rapid ventricular response (02/02/21) Cellulitis Cirrhosis Coronary artery disease History of non-ST elevation myocardial infarction (NSTEMI) (12/29/20) Kidney disease Morbid obesity Multiple falls Nonsustained paroxysmal ventricular tachycardia (12/2020) Venous insufficiency Vertigo, central Home Medications aspirin 81 mg tablet,delayed release (Adult Low Dose Aspirin) 81 mg PO DAILY health maintenance 10/21/15 [History Last Taken 02/02/21] ferrous sulfate 325 mg (65 mg iron) tablet 325 mg PO DAILY anemia 12/25/18 [History Last Taken 02/01/21] alprazolam 0.5 mg tablet 0.5 mg PO DAILY PRN Anxiety 04/07/19 [History Last Taken 02/01/21] cholecalciferol (vitamin D3) 125 mcg (5,000 unit) capsule 1,250 unit PO QHS 04/07/19 [History Last Taken 02/01/21] fluoxetine 20 mg capsule 20 mg PO DAILY depression/anxiety 04/07/19 [History Last Taken 02/02/21] ursodiol 250 mg tablet (PAT 250) 250 mg PO DAILY@1400 04/07/19 [History Last Taken 02/02/21] metoprolol tartrate 25 mg tablet 25 mg PO DAILY 05/23/20 [History Last Taken 02/02/21] torsemide 20 mg tablet 40 mg PO DAILY FLUID 05/23/20 [History Last Taken 02/02/21] oxycodone 5 mg tablet 10 mg PO Q6H PRN PRN Pain 12/29/20 [History Last Taken 01/31/21] apixaban 5 mg tablet (Eliquis) 5 mg PO DAILY 01/19/21 [History Last Taken 02/02/21] morphine 15 mg tablet,extended release 15 mg PO BID 01/19/21 [History Last Taken 02/02/21] potassium chloride 10 mEq tablet,extended release(part/cryst) 10 meq PO DAILY 01/19/21 [History Last Taken 02/02/21] tacrolimus 0.5 mg capsule, immediate-release 0.5 mg PO BID IMMUNE 02/02/21 [History Last Taken 02/02/21] oxycodone-acetaminophen 5 mg-325 mg tablet 1 tab PO Q6H PRN PRN Pain 3 days #12 TABLETS 03/31/22 [Rx Last Taken Unknown] Allergy/AdvReac Type Severity Reaction Status Date / Time pravastatin [From Pravachol] Allergy Hives Verified 06/19/22 12:46 Zwulgeo-DCB-ShH Reductase Allergy Hives Verified 06/19/22 12:46 Inhibitor [Evzarsu-Nfu-Kqf Reductase Inhibitor] vancomycin Allergy NEEDS Verified 06/19/22 12:46 FOLLOW-UP zolpidem tartrate Allergy Hives Verified 06/19/22 12:46 [From Ambien] everolimus AdvReac Swelling Verified 06/19/22 12:46 gabapentin AdvReac NEEDS Verified 06/19/22 12:46 FOLLOW-UP lactulose AdvReac Upset Verified 06/19/22 12:46 Stomach Family History Mother Heart disease Father Heart disease Surgical History H/O shoulder surgery History of cardioversion (02/02/21) History of hip surgery Status post liver transplant (07/2017) Social History household members: spouse Smoking Status: Never smoker alcohol intake: current Alcohol type: other substance use type: does not use ROS ROS ED Review of Systems ROS Unobtainable: other Constitutional Constitutional ED: Reports lethargy; Denies chills, fever(s), sweats or weight loss Eyes Eyes: Denies blurry vision, change in vision or diplopia ENT ENT ED: Denies rhinorrhea or sore throat Cardiovascular Cardiovascular: Reports chest pain and racing heartbeat; Denies orthopnea Respiratory/Chest Respiratory/Chest: Reports dyspnea and dyspnea on exertion; Denies cough, orthopnea or sputum Gastrointestinal Gastrointestinal: Denies abdominal pain, diarrhea, nausea or vomiting Genitourinary Genitourinary ED: Denies dysuria, hematuria or urinary frequency Musculoskeletal Musculoskeletal: Denies arthralgias, back pain, myalgias or neck pain Integumentary Denies abscess, Abrasions or rash Neurologic Neurologic: Reports weakness; Denies headache(s) Psychiatric Psychiatric: Denies anxiety, depression or suicidal thoughts Endocrine Endocrinology: Denies polydipsia, polyphagia or polyuria Hematologic/Lymphatic Hematologic/Lymphatic: Denies easy bleeding, easy bruising or lymphadenopathy Allergic/Immunologic Allergic/Immunologic ED: Denies mouth swelling, tongue swelling or urticaria EXAM Physical Exam Const Vital Signs: 06/19/22 12:44 06/19/22 12:50 06/19/22 12:54 Temperature 97.2 F L Temperature Source Temporal Pulse Rate 154 H 149 H Respiratory Rate 18 Respiratory Effort Short of Breath Labored Respiratory Pattern Normal Blood Pressure 74/41 L Blood Pressure Mean 52 Pulse Ox 100 Oxygen Delivery Method Room Air 06/19/22 13:07 06/19/22 14:08 06/19/22 14:11 Temperature Temperature Source Pulse Rate 147 H 144 H 42 L Respiratory Rate 16 Respiratory Effort Respiratory Pattern Blood Pressure 135/112 H 103/87 H 103/87 H Blood Pressure Mean 119 92 92 Pulse Ox Oxygen Delivery Method 06/19/22 14:22 06/19/22 14:26 06/19/22 14:49 Temperature Temperature Source Pulse Rate 54 L 57 L Respiratory Rate 13 Respiratory Effort Respiratory Pattern Blood Pressure 106/60 108/59 L Blood Pressure Mean 75 75 Pulse Ox Oxygen Delivery Method Positive well nourished and well developed General Appearance ED: well developed and NAD HEENT Reports TM's clear and moist mucous membranes normocephalic and atraumatic; Negative for trauma or tenderness Tympanic Membrane ED: Yes TM's clear Eyes PERRL and EOMs intact bilaterally General Eye ED: Negative for pale conjunctiva or scleral icterus Neck no lymphadenopathy, supple and no JVD General: Negative for tenderness Chest Wall inspection of chest normal and palpation of chest normal Chest: Negative for tenderness Resp normal respiratory effort and clear to auscultation bilaterally Effort and Inspection: Negative for respiratory distress or pain with movement Auscultation: Negative for rhonchi, wheezes or diminished lung sounds Cardio regular rhythm, S1 normal heart sound, S2 normal heart sound and no murmurs Rate: tachycardic Peripheral Pulses: pulses 2+ throughout GI normal to inspection, nondistended, normoactive bowel sounds, soft to palpation, non-tender, non-distended and no masses Back/Spine no CVA tenderness and no thoracic nor lumbar tenderness Extremity normal to inspection General Extremety ED: Negative for edema General Extremity: Negative for edema Neuro oriented x3, CN's II-XII intact bilaterally, no sensory deficits noted and gait normal Sensorium / Orientation: awake, alert, oriented to person, oriented to place and oriented to time Motor Exam: strength 5/5 throughout and strength abnormal Psych mental status grossly normal Skin no rashes or lesions noted and no wounds MDM MDM MDM Narrative Medical decision making narrative: IV line established on arrival. Patient was given Cardizem 20 mg IV and this slowed his heart rate down and patient converted to a sinus rhythm. Patient has a white count of 9.4 with a hemoglobin 13. Chemistries were unremarkable. His BUN was 33 and creatinine 2.84. Lactate was 3.5. LFTs mostly unremarkable. His ammonia level was elevated at 169. I did order lactulose. Case will be discussed with hospitalist evaluate patient for admission. Lab Data Labs: Laboratory Results - last 24 hr 06/19/22 06/19/22 06/19/22 13:00 13:00 13:00 WBC 9.4 RBC 4.45 L Hgb 13.0 Hct 39.4 L MCV 88.5 MCH 29.2 MCHC 33.0 RDW Std Deviation 48.8 H RDW Coeff of Maciel 15.0 H Plt Count 299 MPV 10.4 Immature Gran % (Auto) 0.200 Neut % (Auto) 49.4 Lymph % (Auto) 35.4 [place] % (Auto) 9.4 Eos % (Auto) 5.0 Baso % (Auto) 0.6 Absolute Neuts (auto) 4.7 Absolute Lymphs (auto) 3.34 Nucleated RBC % 0 Sodium 141 Potassium 3.5 Chloride 108 H Carbon Dioxide 23.0 Anion Gap 10 BUN 33 H Creatinine 2.84 H Estim Creat Clear Calc 28.20 Est GFR (MDRD) Af Amer 29 L Est GFR (MDRD) Non-Af 24 L BUN/Creatinine Ratio 11.6 Glucose 162 H Lactic Acid 3.5 H* Calcium 10.0 Total Bilirubin 1.00 AST 12 L ALT 15 L Alkaline Phosphatase 160 H Ammonia Troponin I High Sens 30 Total Protein 7.1 Albumin 2.7 L Globulin 4.4 H Albumin/Globulin Ratio 0.6 L 06/19/22 06/19/22 13:00 14:12 WBC RBC Hgb Hct MCV MCH MCHC RDW Std Deviation RDW Coeff of Maciel Plt Count MPV Immature Gran % (Auto) Neut % (Auto) Lymph % (Auto) [place] % (Auto) Eos % (Auto) Baso % (Auto) Absolute Neuts (auto) Absolute Lymphs (auto) Nucleated RBC % Sodium Potassium Chloride Carbon Dioxide Anion Gap BUN Creatinine Estim Creat Clear Calc Est GFR (MDRD) Af Amer Est GFR (MDRD) Non-Af BUN/Creatinine Ratio Glucose Lactic Acid Calcium Total Bilirubin AST ALT Alkaline Phosphatase Ammonia Cancelled 169.0 H Troponin I High Sens Total Protein Albumin Globulin Albumin/Globulin Ratio Radiography Diagnostic Testing: Clinical Impression(s) from Imaging Studies Chest X-Ray 06/19/22 13:39 IMPRESSION: Stable examination. No acute abnormality is seen. Electronically Signed: Pelon Graham MD at 14:16 EDT , 1 view chest x-ray obtained interpreted by myself no acute disease process. Radiology in agreement. EKG Initial EKG: Attestation: I personally reviewed and interpreted this EKG as follows: Comments: Atrial flutter with 2-1 block with a rate of 147. Repeat EKG after Cardizem shows a sinus rhythm with a ventricular rate of 54 bpm with no acute ST segment changes Discharge Plan Dx/Rx/DC Orders Clinical Impression: Atrial fibrillation with rapid ventricular response, Weakness, Acute kidney injury, Acute hepatic encephalopathy, Acidosis, lactic Disposition Disposition: Acute Care Hospital [facility]
[2022-06-19 13:56] LABS: Absolute Lymphocyte Count 3.34 X10^3/uL (0.83-4.51); Absolute Neutrophil Count 4.7 X10^3/uL (2.0-7.7); Basophil# 0.06 X10^3/uL; Basophil% 0.6 % (0-1); Eosinophil# 0.47 X10^3/uL; Hematocrit 39.4 % (40-54); Lymphocyte # 3.34 X10^3/ul (0.83-4.51); Lymphocyte % 35.4 % (19-41); Mean Corpuscular Hgb 29.2 pg (27.0-32.0); Mean Corpuscular Volume 88.5 fL (80-94); Mean Platelet Vol. 10.4 fl (6.2-12.0); Monocyte# 0.89 X10^3/uL; Monocyte% 9.4 % (0-10); NRBC Flagged by Analyzer 0 % (0-5); Neutrophil # 4.65 X10^3/uL (2.7-7.7); Neutrophil % 49.4 % (47-70); Platelet Count 299 K/mm3 (150-450); RBC Distribution Width SD 48.8 fl (35.1-43.9); Red Blood Count 4.45 M/mm3 (4.6-6.2); White Blood Count 9.4 K/mm3 (4.4-11.0)
[2022-06-19] MEDS: dilTIAZem 25 MG/5 ML Vial 20 MG IV BOLUS (14:04)
[2022-06-19] MEDS: 0.9% Normal Saline 1,000 ML 150 ML IV (14:04)
[2022-06-19 14:07] LABS: ALB/GLOB Ratio 0.6 RATIO (0.9-2.4); AST(SGOT) 12 U/L (15-37); Alanine Aminotransfer ALT/SGPT 15 U/L (16-61); Albumin, Serum 2.7 g/dL (3.2-5.0); Alkaline Phosphatase 160 U/L (45-117); Anion Gap 10 (5-15); BUN 33 mg/dL (7-18); BUN/Creat Ratio 11.6 RATIO (10-20); Chloride 108 mmol/L (98-107); Creatinine, Serum 2.84 mg/dL (0.70-1.30); EST Glomerular Filtration Rate 24 mL/min (>60); Est Glom Filt Rate - Afr Amer 29 mL/min (>60); Globulin 4.4 g/dL (2.2-4.2); Glucose 162 mg/dL (74-106); Potassium 3.5 mmol/L (3.5-5.1); Protein, Total 7.1 g/dL (6.4-8.2); Sodium Level 141 mmol/L (136-145); Troponin-I HS 30 pg/mL (3.0-78.0)
[2022-06-19 14:09] LABS: Lactic Acid 3.5 mmol/L (0.4-1.9)
--- NOTE | 2022-06-19 14:15 | EKG12_ITS ---
Test Reason : GENERAL ILLNESS Blood Pressure : / mmHG Vent. Rate : 147 BPM Atrial Rate : 000 BPM P-R Int : 000 ms QRS Dur : 088 ms QT Int : 320 ms P-R-T Axes : 000 -28 010 degrees QTc Int : 500 ms Supraventricular tachycardia Nonspecific ST abnormality Abnormal ECG Confirmed by CARLA SHIPMAN, SUGAR ([id number]), acquisition editor JULIO CÉSAR SOLORIO ([id number]) on 06/21/2022 12:30:52 PM Referred By: NUBIA Confirmed By:SUGAR AGUIRRE MD
--- NOTE | 2022-06-19 14:55 | NURSING ---
DR CESAR COOPER
[2022-06-19] MEDS: Lactulose 20 GM/30 ML UDC 30 GM PO (15:16)
--- NOTE | 2022-06-19 15:19 | NURSING ---
MED SURG CESAR POSITIVE WOUND CULTURES
--- NOTE | 2022-06-19 16:01 | HP.PCM.HOS_ITS ---
HPI - General General Date of Admission: 06/19/22 Date of Service: 06/19/22 Chief Complaint: Multiple system for about 2 months, chest pressure/shortness of breath for few days. HPI Narrative ESTEFANIA MILLER, is a 61 M with history of orthotopic liver transplant in July 2017 on tacrolimus in [facility] came to ED for multiple systems, not feeling well for 2 months. As per the daughter and present in the room, he easily gets irritable, angry, jerking motions in the hand and leg and sometimes abnormal behavior. Patient denies any vomiting but sometimes has nausea. He also felt warm but never had fever as per the . For last 3 days patient felt chest pressure and shortness of breath which was intermittent. He states chest pressure located midsternal to left, localized without radiation associated with mild shortness of breath. He felt nauseated therefore came to ED. Patient also stated vertigo for few months. Patient has generalized weakness. He also has constipation and takes MiraLAX at home. Usually moves once daily but sometimes in few days and had 1 time 1 week with hard stool stuck in rectum. Patient denies diarrhea. He also noted decreased urine output even on diuretic for last 2 to 3 months and dark yellow in color. Patient stated he has CKD stage III due to cirrhosis before transplant but did not improve after liver transplant. Patient has a history of A. fib but not on anticoagulant, origin unclear. Patient stated he has history of speaking and has bloody stain over left eyebrow from picking. Patient also has history of blood clot in portal vein isolated mild biliary granules in liver initially did not understand. In ED patient was found in SVT at 147 bpm on EKG. Narrow complex tachycardia. The patient was given Cardizem 20 mg IV and was converted to sinus bradycardia on repeat EKG. Shows sinus bradycardia at 40 AV block, LAD. Labs ordered and imaging reviewed and discussed in assessment plan. COUNTS INCLUDE 234 BEDS AT THE [facility] Medical History (HFpEF) heart failure with preserved ejection fraction Acidosis, lactic Acute hypotension Anemia of chronic disease Ascites Atherosclerotic heart disease of [place] coronary artery without angina pectoris Atrial fibrillation Atrial flutter with rapid ventricular response (02/02/21) Cellulitis Cirrhosis Coronary artery disease History of non-ST elevation myocardial infarction (NSTEMI) (12/29/20) Kidney disease Morbid obesity Multiple falls Nonsustained paroxysmal ventricular tachycardia (12/2020) Venous insufficiency Vertigo, central Home Medications aspirin 81 mg tablet,delayed release (Adult Low Dose Aspirin) 81 mg PO DAILY health maintenance 10/21/15 [History Last Taken 06/18/22] ferrous sulfate 325 mg (65 mg iron) tablet 325 mg PO DAILY PRN iron 12/25/18 [History Last Taken 02/01/21] alprazolam 0.5 mg tablet 0.5 mg PO DAILY PRN Anxiety 04/07/19 [History Last Taken 02/01/21] cholecalciferol (vitamin D3) 125 mcg (5,000 unit) capsule 5,000 unit PO DAILY supplement 04/07/19 [History Last Taken 06/19/22] ursodiol 250 mg tablet (PAT 250) 250 mg PO TID GALLSTONES 04/07/19 [History Last Taken 06/19/22] potassium chloride 10 mEq tablet,extended release(part/cryst) 10 meq PO DAILY PRN SUPPLEMENT 01/19/21 [History Last Taken 02/02/21] tacrolimus 0.5 mg capsule, immediate-release 0.5 mg PO 0900,2100 IMMUNE 02/02/21 [History Last Taken 06/19/22] ascorbic acid (vitamin C) 1,000 mg tablet (Vitamin C) 1,000 mg PO DAILY SUPPLEMENT 06/19/22 [History Last Taken 06/18/22] cyclobenzaprine 10 mg tablet 10 mg PO TID PRN Spasms 06/19/22 [History Last Taken Unknown] famotidine 20 mg tablet (Pepcid) 20 mg PO BID GERD 06/19/22 [History Last Taken 2 Days Ago ~06/17/22] melatonin 5 mg tablet 5 mg PO QHS SLEEP 06/19/22 [History Last Taken 06/18/22] metoprolol succinate 25 mg tablet,extended release 24 hr 25 mg PO 0900,2100 BP 06/19/22 [History Last Taken 06/19/22] ondansetron 4 mg disintegrating tablet 4 mg PO Q8H PRN Nausea 06/19/22 [History Last Taken 06/18/22] oxycodone 10 mg tablet 10 mg PO TID BREAKTHROUGH PAIN 06/19/22 [History Last Taken 06/19/22] sulfamethoxazole 400 mg-trimethoprim 80 mg tablet 1 tab PO DAILY ANTIBIOTIC 06/19/22 [History Last Taken 06/19/22] torsemide 100 mg tablet 100 mg PO BID FLUID 06/19/22 [History Last Taken 06/18/22] zinc acetate 50 mg (zinc) capsule 50 mg PO DAILY SUPPLEMENT 06/19/22 [History Last Taken 06/18/22] Allergy/AdvReac Type Severity Reaction Status Date / Time pravastatin [From Pravachol] Allergy Hives Verified 06/19/22 12:46 Iikfwep-IOJ-BcJ Reductase Allergy Hives Verified 06/19/22 12:46 Inhibitor [Pgxtzeo-Tko-Xhm Reductase Inhibitor] vancomycin Allergy NEEDS Verified 06/19/22 12:46 FOLLOW-UP zolpidem tartrate Allergy Hives Verified 06/19/22 12:46 [From Ambien] everolimus AdvReac Swelling Verified 06/19/22 12:46 gabapentin AdvReac NEEDS Verified 06/19/22 12:46 FOLLOW-UP lactulose AdvReac Upset Verified 06/19/22 12:46 Stomach Family History Mother Heart disease Father Heart disease Surgical History H/O shoulder surgery History of cardioversion (02/02/21) History of hip surgery Status post liver transplant (07/2017) Social History household members: spouse Smoking Status: Never smoker alcohol intake: current Alcohol type: other substance use type: does not use ROS ROS Narrative Constitutional: Reports fatigue and weakness. Vertigo, multiple systems as described in HPI. Morbid obesity HEENT: Reports systems reviewed and no addt'l complaints, except as documented Respiratory/Chest: As described in HPI CVS: As described in HPI. Bilateral moderate leg swelling Gastrointestinal: Denies coffee ground emesis, hematemesis or vomiting Genitourinary: Denies burning urination but urine amount decreased. Musculoskeletal: Reports joint pain and limited range of motion Neurologic: Denies seizure-like activity. As described in HPI. No seizure skin: No ulcer. No rash Endocrinology: Reports systems reviewed and no addt'l complaints, except as documented Hematologic/Lymphatic: Reports systems reviewed and no addt'l complaints, except as documented Rest 14 ROS are negative except as mentioned in HPI Vital Signs Vital Signs Vital Signs: 06/19/22 12:44 06/19/22 12:50 06/19/22 12:54 Temperature 97.2 F L Temperature Source Temporal Pulse Rate 154 H 149 H Respiratory Rate 18 Respiratory Effort Short of Breath Labored Respiratory Pattern Normal Blood Pressure 74/41 L Blood Pressure Mean 52 Blood Pressure Source Blood Pressure Position Blood Pressure Location Pulse Ox 100 Oxygen Delivery Method Room Air 06/19/22 13:07 06/19/22 14:08 06/19/22 14:11 Temperature Temperature Source Pulse Rate 147 H 144 H 42 L Respiratory Rate 16 Respiratory Effort Respiratory Pattern Blood Pressure 135/112 H 103/87 H 103/87 H Blood Pressure Mean 119 92 92 Blood Pressure Source Blood Pressure Position Blood Pressure Location Pulse Ox Oxygen Delivery Method 06/19/22 14:22 06/19/22 14:26 06/19/22 14:49 Temperature Temperature Source Pulse Rate 54 L 57 L Respiratory Rate 13 Respiratory Effort Respiratory Pattern Blood Pressure 106/60 108/59 L Blood Pressure Mean 75 75 Blood Pressure Source Blood Pressure Position Blood Pressure Location Pulse Ox Oxygen Delivery Method 06/19/22 15:13 06/19/22 15:14 06/19/22 15:45 Temperature 97.2 F L 97.0 F L Temperature Source Temporal Temporal Pulse Rate 58 L 58 L 60 Respiratory Rate 10 L 10 L 14 Respiratory Effort Respiratory Pattern Blood Pressure 112/67 112/67 113/38 L Blood Pressure Mean 82 82 63 Blood Pressure Source Monitor Blood Pressure Position Semi-Fowlers Blood Pressure Location Left Forearm Pulse Ox 100 100 Oxygen Delivery Method Room Air Room Air Weight Weight: 349 lb 6.923 oz Body Mass Index (BMI) 50.1 Physical Exam Narrative Physical exam General: Alert, Oriented x3, Cooperative, morbid obesity BMI 50.1 kg/m?. HEENT: Atraumatic, PERRLA, EOMI, Normocephalic Oral: Oral mucosa dry, deep oropharyngeal structures could not visualized no Gingival or Mucosal Lesions/ Ulcerations Neck: Supple, No JVD, Negative Carotid Bruits Lungs: Air entry diminished in bilateral lung bases. No crepitation/rhonchi Cardiovascular: Sinus bradycardia, Normal S1, Normal S2, No murmurs Abdomen: Surgical scar of liver transplant. No tenderness or distention. Bowel Sounds Present, Soft : No renal angle tenderness. No suprapubic tenderness. Extremities: 2+ bilateral LE pitting edema, Capillary Refill Less than 3 Seconds Skin: Dried blood over left eyebrow from picking. Denies fall. Musculoskeletal: No Tenderness to Palpation of Joints or Extremities. ROM restricted over hip and knee joints. Neurological: Cranial nerves II-XII grossly intact, DTR 2+/4, muscle strength 4+/5 at major joints Psych/Mental Status: Flat affect. Results Lab / Micro Data Result Diagrams: 06/19/22 13:00 06/19/22 13:00 Labs: Laboratory Results - last 24 hr 06/19/22 13:00: WBC 9.4, RBC 4.45 L, Hgb 13.0, Hct 39.4 L, MCV 88.5, MCH 29.2, MCHC 33.0, RDW Std Deviation 48.8 H, RDW Coeff of Maciel 15.0 H, Plt Count 299, MPV 10.4, Immature Gran % (Auto) 0.200, Neut % (Auto) 49.4, Lymph % (Auto) 35.4, [place] % (Auto) 9.4, Eos % (Auto) 5.0, Baso % (Auto) 0.6, Absolute Neuts (auto) 4.7, Absolute Lymphs (auto) 3.34, Nucleated RBC % 0 06/19/22 13:00: Sodium 141, Potassium 3.5, Chloride 108 H, Carbon Dioxide 23.0, Anion Gap 10, BUN 33 H, Creatinine 2.84 H, Estim Creat Clear Calc 28.20, Est GFR (MDRD) Af Amer 29 L, Est GFR (MDRD) Non-Af 24 L, BUN/Creatinine Ratio 11.6, Glucose 162 H, Calcium 10.0, Total Bilirubin 1.00, AST 12 L, ALT 15 L, Alkaline Phosphatase 160 H, Troponin I High Sens 30, Total Protein 7.1, Albumin 2.7 L, Globulin 4.4 H, Albumin/Globulin Ratio 0.6 L 06/19/22 13:00: Lactic Acid 3.5 H* 06/19/22 13:00: Ammonia Cancelled 06/19/22 14:12: Ammonia 169.0 H Micro: Microbiology 06/19/22 14:30 Nasal Secretion SARS-CoV-2 Antigen (Rapid) - Final Radiology Impression Chest X-Ray 06/19/22 13:39 IMPRESSION: Stable examination. No acute abnormality is seen. Electronically Signed: Pelon Graham MD at 14:16 EDT , Assessment & Plan Assessment/Plan (1) SVT (supraventricular tachycardia): PLAN: Plan This 61-year-old gentleman came to ED for multiple complaints but mainly chest pressure as well as shortness of breath and found to be SVT. 1. SVT converted to sinus bradycardia with history of paroxysmal A. fib/flutter: Patient is being admitted in PCU. Twelve-lead EKG is reviewed. Continue metoprolol succinate. Patient not on anticoagulant. Please discussed with PCP/[facility] safety and health consultant. 2. Multiple neurological symptoms, including vertigo, abnormal behavior exact etiology unclear possible differential diagnoses acute toxic metabolic encephalopathy/tacrolimus side effect/adverse effect: Given clinic record patient last tacrolimus was on February 16, 2022. It was 4.8, slightly lower in normal range 5?2 20. Magnesium was low at 1.6 at that time. Serum tacrolimus level ordered. Patient ammonia level is elevated but it was elevated in the past even after liver transplant lactulose 30 mL 3 times daily, titrate to have a goal of 3 bowel movements per day. Chest x-ray individually reviewed shows no acute abnormality. 3. CKD stage IV: Patient estimated creatinine clearance is 28 mL/min. BUN/creatinine 33/2.84.At that time BUN/creatinine was 25/2.49. It was 1.99 in January 2021. 4. FELIPE status post liver transplant. Patient liver chemistry are in normal range except elevated alkaline phosphatase. It was also elevated when patient's last blood work January 2022 136. GGT ordered. 5. Chronic HFpEF, non-STEMI in December 2020: Last echo in our system December 2020 reported EF 55 to 60% overall LV systolic function normal. Patient home cardiac medications continued Patient also had COVID in August 2021 and had 2 doses of vaccine. He was told that he is not candidate for oral medicine for COVID-19 Living will/advanced directive/end of life care: Patient does not have living will or advanced directive. After discussion of benefits/risks procedures involved with full code, DNR CC arrest and DNR CC, the patient opted for full code. He wants one-time resuscitation but does not want to be cared for stable on ventilator or life sustaining measures. Patient does want artificial life support including intubation, tube feed, ventilator and/chest compression, central venous catheter, vasopressor and DC shock if needed beginning therefore full code. It was discussed with patient's power of personal injury attorney near the bedside and her daughter. Total time spent in [id number] encounter in discussion of advanced directive 16 minutes. Microbiology Past 72 Hours 06/19/22 14:30 Nasal Secretion SARS-CoV-2 Antigen (Rapid) - Final Laboratory Results 06/19/22 13:00: WBC 9.4, RBC 4.45 L, Hgb 13.0, Hct 39.4 L, MCV 88.5, MCH 29.2, MCHC 33.0, RDW Std Deviation 48.8 H, RDW Coeff of [place]iel 15.0 H, Plt Count 299, MPV 10.4, Immature Gran % (Auto) 0.200, Neut % (Auto) 49.4, Lymph % (Auto) 35.4, [place] % (Auto) 9.4, Eos % (Auto) 5.0, Baso % (Auto) 0.6, Absolute Neuts (auto) 4.7, Absolute Lymphs (auto) 3.34, Nucleated RBC % 0 06/19/22 13:00: Sodium 141, Potassium 3.5, Chloride 108 H, Carbon Dioxide 23.0, Anion Gap 10, BUN 33 H, Creatinine 2.84 H, Estim Creat Clear Calc 28.20, Est GFR (MDRD) Af Amer 29 L, Est GFR (MDRD) Non-Af 24 L, BUN/Creatinine Ratio 11.6, Glucose 162 H, Calcium 10.0, Total Bilirubin 1.00, AST 12 L, ALT 15 L, Alkaline Phosphatase 160 H, Troponin I High Sens 30, Total Protein 7.1, Albumin 2.7 L, Globulin 4.4 H, Albumin/Globulin Ratio 0.6 L 06/19/22 13:00: Lactic Acid 3.5 H* 06/19/22 13:00: Ammonia Cancelled 06/19/22 14:12: Ammonia 169.0 H Charges/Coding Visit Charges Inpatient E&M: 89027 Init Hosp L3 Procedures Hospitalists Procedures: 53845 Advncd Care Plan 30 Min
[2022-06-19 17:16] LABS: Mucous, Urine 0 SEEN /hpf (<or=2+); Red Blood Cells-Urine 0 SEEN /hpf (0-5); White Blood Cells 0 SEEN /hpf (0-5)
[2022-06-19 17:20] LABS: Color, Urine Yellow (Yellow); Glucose, Dipstick Normal (Normal); Ketone-Dipstick Negative (Negative); Leukocyte Esterase-Dipstick Negative /ul (Negative); Nitrite-Dipstick Negative (Negative); Occult Blood-Urine Negative /ul (Negative); Protein-Dipstick 30 mg/dl (Negative); Urine Bilirubin Dipstick Negative (Negative); Urine Clarity Clear (Clear); Urine Urobilinogen 1 mg/dl (Normal)
[2022-06-19] MEDS: Enoxaparin 30 MG/0.3 ML Syringe SC (17:22)
[2022-06-19] MEDS: Potassium Chloride Oral Tablet 20 MEQ PO (17:22)
[2022-06-19] MEDS: Lactated Ringers 1,000 ML 75 ML IV (17:29)
[2022-06-19 17:31] LABS: Bacteria 1+ /hpf (None Seen); Hyaline Cast 5-10 SEEN /lpf (0-5); Squamous Epithelial Cells - UA 0-5 SEEN /hpf (0-5)
[2022-06-19 17:48] LABS: Reflex Lactate? Y
[2022-06-19 17:59] LABS: Magnesium 1.8 mg/dL (1.6-2.6); Phosphorus 3.5 mg/dL (2.5-4.9)
[2022-06-19] MEDS: Torsemide 100 MG Tablet PO (18:00)
[2022-06-19 18:29] LABS: International Normalized Ratio 1.2
[2022-06-19 18:47] LABS: GGTP 14 U/L (15-85)
[2022-06-19 18:50] LABS: Lactic Acid 3.1 mmol/L (0.4-1.9)
[2022-06-19] MEDS: Metoprolol(XL)Succ 25 MG Tablet PO (21:23)
[2022-06-19] MEDS: Tacrolimus 0.5 MG Capsule PO (21:23)
[2022-06-19] MEDS: Senna/Docusate Sodium 1 Tablet 2 TABLET PO (21:23)
[2022-06-19] MEDS: MELATONIN 10 MG TABLET 5 MG PO (21:23)
[2022-06-19] MEDS: oxyCODONE 5 MG Tablet PO (21:26)
[2022-06-20] VITALS (11 sets, daily range): BP systolic 103–119; BP diastolic 47–66; PULSE 59–71; RESP 15–20; TEMP 36.2–36.7; O2SAT 100
--- NOTE | 2022-06-20 01:19 | NURSING ---
06/19/22 22:30 Patient heart rate got up to 130's this nurse went into room and asked if he was experiencing any sob, or chest pain. Patient stated having left chest pain and denies any shortness of breathe. Patient stated that he was after eating a cracker he felt the pressure in the chest. Denies needing anything at this time did states that he feels like this sometimes after eating sometimes. Patient states he would push his call light if he has chest pain. Did make patient nurse aware.
[2022-06-20] MEDS: oxyCODONE 5 MG Tablet PO ×2 (05:31→11:49)
[2022-06-20 05:53] LABS: Absolute Lymphocyte Count 2.12 X10^3/uL (0.83-4.51); Basophil# 0.05 X10^3/uL; Basophil% 0.7 % (0-1); Eosinophil# 0.29 X10^3/uL; Eosinophils% 4.1 % (0-5); Hematocrit 33.4 % (40-54); Hemoglobin 11.4 g/dL (13.0-16.5); Lymphocyte # 2.12 X10^3/ul (0.83-4.51); Lymphocyte % 29.7 % (19-41); Mean Corp Hgb Conc 34.1 g/dL (32-36); Mean Corpuscular Hgb 30.3 pg (27.0-32.0); Mean Corpuscular Volume 88.8 fL (80-94); Mean Platelet Vol. 10.6 fl (6.2-12.0); Monocyte# 0.68 X10^3/uL; Monocyte% 9.5 % (0-10); NRBC Flagged by Analyzer 0 % (0-5); Neutrophil # 3.99 X10^3/uL (2.7-7.7); Neutrophil % 55.7 % (47-70); Platelet Count 229 K/mm3 (150-450); RBC Distribution Width CV 14.9 % (11.6-14.6); RBC Distribution Width SD 48.5 fl (35.1-43.9); Red Blood Count 3.76 M/mm3 (4.6-6.2); White Blood Count 7.2 K/mm3 (4.4-11.0)
[2022-06-20 06:42] LABS: ALB/GLOB Ratio 0.7 RATIO (0.9-2.4); AST(SGOT) 14 U/L (15-37); Alanine Aminotransfer ALT/SGPT 12 U/L (16-61); Albumin, Serum 2.5 g/dL (3.2-5.0); Alkaline Phosphatase 138 U/L (45-117); Anion Gap 6 (5-15); BUN 29 mg/dL (7-18); BUN/Creat Ratio 10.9 RATIO (10-20); Calcium,Total 8.8 mg/dL (8.5-10.1); Chloride 108 mmol/L (98-107); Creatinine, Serum 2.65 mg/dL (0.70-1.30); EST Glomerular Filtration Rate 26 mL/min (>60); Est Glom Filt Rate - Afr Amer 32 mL/min (>60); Estimated Creatinine Clearance 30.23 ml/min; Globulin 3.8 g/dL (2.2-4.2); Glucose 101 mg/dL (74-106); Potassium 3.3 mmol/L (3.5-5.1); Protein, Total 6.3 g/dL (6.4-8.2); Sodium Level 140 mmol/L (136-145); Thyroid Stim Hormone (TSH) 1.78 uIU/mL (0.358-3.74)
[2022-06-20] MEDS: Smz/Tmp Ds Tablet 0.5 TABLET PO (09:15)
[2022-06-20] MEDS: Metoprolol(XL)Succ 25 MG Tablet PO ×2 (09:15→21:13)
[2022-06-20] MEDS: Cholecalciferol (Vit D3) 125 MCG CAPSULE (5,000 UNITS) PO (09:16)
[2022-06-20] MEDS: Ascorbic Acid 500 MG Tablet 1000 MG PO (09:16)
[2022-06-20] MEDS: Tacrolimus 0.5 MG Capsule PO ×2 (09:16→21:13)
[2022-06-20] MEDS: Torsemide 100 MG Tablet PO ×2 (09:16→17:44)
[2022-06-20] MEDS: Aspirin E.C. 81 MG Tablet PO (09:16)
[2022-06-20] MEDS: Senna/Docusate Sodium 1 Tablet 2 TABLET PO ×2 (09:17→21:13)
[2022-06-20] MEDS: Enoxaparin 40 MG/0.4 ML Syringe SC (09:17)
[2022-06-20] MEDS: Potassium Chloride Oral Tablet 20 MEQ 40 MEQ PO (11:50)
--- NOTE | 2022-06-20 13:28 | CASEMGMT ---
Assessment- SW completed assessment with patient at bedside. SW also confirmed addresses and phone numbers Living situation- Patient lives with his in a mobile home with a ramp entrance. PCP: Dr Raul Uribe Specialists: Cardiology-Dr Rhett Boyd and Dr Home Gold, Kidney Dr Baldo Barrios all through [facility] Pharmacy: [facility] in [place] DME:? grab bars, shower chair, walker, rollator, cane, power wheelchair, lift chair, toilet side rails, bobbin hauler, sock aide, long handle shoe horn, and bedside rail ADL's/IADL's: Patient uses his rollator and power wheelchair to get around. He uses his shower chair to bathe. He manages his own medications. Patient manages his finances. Past SNF/rehab: Patient has been to [facility] in the past Past HH: Patient has had home health, but he does not feel it was benficial LW: Yes. Patient thinks they are on file at [facility] POA:? Yes. Patient said he would like to change documents as he does not know where he placed the document. Plan: Originally patient told therapy and SW that he would like outpatient therapy at [facility]. However, patient mentioned that he went to [facility] in the past and it was super helpful. Patient said he would be interested in going to [facility] if possible. SW let patient know SW will review therapy's notes and see their recommedations. Kaley Riddle FINISHING INSPECTOR ZAHRA
--- NOTE | 2022-06-20 13:46 | CASEMGMT ---
TONY called [facility] and left a message with the sports medicine coordinator, Agusto (?). TONY asked for a return call. Kaley SWEENEY
--- NOTE | 2022-06-20 15:49 | PCM.PN.HOSP ---
Subjective Subjective Patient states he is feeling dramatically better today. Family indicates his mental status is much improved. His previous party plan sales consultant from transplant up at [facility] has retired he has not seen a new party plan sales consultant in close to a year. He has not followed with cardiology in at least that amount of time either. He has a known history of atrial fibrillation and does have periods of PAF with RVR. Currently back in normal sinus rhythm. Objective Data Objective Data Vital Signs: Vital Signs Temp Pulse Resp BP Pulse Ox O2 Del Method 98.0 F 71 16 105/47 L 100 Room Air 06/20/22 15:05 06/20/22 15:05 06/20/22 15:05 06/20/22 15:05 06/20/22 15:05 06/20/22 15:05 Oxygen Delivery Method Room Air Weight: 160 kg Body Mass Index (BMI) 50.1 Intake & Output: Intake and Output for Last 24 Hours 06/18/22 06/19/22 06/20/22 23:59 23:59 23:59 Intake Total 1979 / 0 2029 / 2029 Output Total 300 / 300 480 / 480 Balance 1679 / 2079 1550 / 1550 Lab / Micro Data Result Diagrams: 06/20/22 04:10 06/20/22 04:10 Labs: Laboratory Results - last 24 hr 06/19/22 13:00: Phosphorus 3.5, Magnesium 1.8 06/19/22 13:00: GGT 14 L 06/19/22 17:10: Urine Color Yellow, Urine Clarity Clear, Urine pH 6.0, Ur Specific [place] 1.020, Urine Protein 30 H, Urine Glucose (UA) Normal, Urine Ketones Negative, Urine Occult Blood Negative, Urine Nitrite Negative, Urine Bilirubin Negative, Urine Urobilinogen 1 H, Ur Leukocyte Esterase Negative, Urine RBC 0 SEEN, Urine WBC 0 SEEN, Ur Squamous Epith Cells 0-5 SEEN, Urine Bacteria 1+, Hyaline Casts 5-10 SEEN, Urine Mucus 0 SEEN 06/19/22 17:58: PT 15.0 H, INR 1.2 06/19/22 17:58: Lactic Acid 3.1 H* 06/20/22 04:10: WBC 7.2, RBC 3.76 L, Hgb 11.4 L, Hct 33.4 L, MCV 88.8, MCH 30.3, MCHC 34.1, RDW Std Deviation 48.5 H, RDW Coeff of Maciel 14.9 H, Plt Count 229, MPV 10.6, Immature Gran % (Auto) 0.300, Neut % (Auto) 55.7, Lymph % (Auto) 29.7, [place] % (Auto) 9.5, Eos % (Auto) 4.1, Baso % (Auto) 0.7, Absolute Neuts (auto) 4.0, Absolute Lymphs (auto) 2.12, Nucleated RBC % 0 06/20/22 04:10: Sodium 140, Potassium 3.3 L, Chloride 108 H, Carbon Dioxide 26.0, Anion Gap 6, BUN 29 H, Creatinine 2.65 H, Estim Creat Clear Calc 30.23, Est GFR (MDRD) Af Amer 32 L, Est GFR (MDRD) Non-Af 26 L, BUN/Creatinine Ratio 10.9, Glucose 101, Calcium 8.8, Total Bilirubin 0.80, AST 14 L, ALT 12 L, Alkaline Phosphatase 138 H, Total Protein 6.3 L, Albumin 2.5 L, Globulin 3.8, Albumin/Globulin Ratio 0.7 L, TSH 1.78 Micro: Microbiology 06/19/22 14:30 Nasal Secretion SARS-CoV-2 Antigen (Rapid) - Final Physical Exam Const alert, oriented x3 and no apparent distress Constitutional Narrative: Morbidly obese white male lying in bed, family at bedside, patient appears comfortable nontoxic, able to answer all questions independently HEENT head/scalp atraumatic and moist oral mucous membranes HEENT Narrative: Basal cell carcinoma above left eye, basal cell carcinoma left scalp, dentition is fair, Mallampati is 3, no thrush Head and Scalp: normocephalic Eyes PERRL, EOMs intact bilaterally and conjunctivae normal Eyes Narrative: No scleral icterus Neck no lymphadenopathy and supple Neck Narrative: Trachea midline, no thyroid enlargement Resp normal respiratory effort, no retractions, no use of accessory muscles and clear to auscultation bilaterally Auscultation: Negative for crackles, rales, rhonchi or wheezes Cardio regular rate, regular rhythm, S1 normal heart sound, S2 normal heart sound, no murmurs, no rub, no gallops and no clicks GI normal to inspection, nondistended, normoactive bowel sounds, soft to palpation and non-tender GI Narrative: Large protuberant abdomen, no fluid wave noted Extremity no clubbing, cyanosis or edema Extremity Narrative: Right distal upper extremity with basal cell carcinoma Skin no wounds, skin turgor normal, no jaundice, no petechiae and no mottling Skin Narrative: Basal cell carcinomas as identified above Neuro oriented x3, CN's II-XII intact bilaterally, moves all extremities and no focal motor deficits Neuro Narrative: No asterixis, generalized weakness Speech: speech normal Psych affect normal Psych Narrative: Very talkative but appropriately interactive Assessment & Plan Assessment/Plan (1) Atrial fibrillation with rapid ventricular response: (2) Acute hepatic encephalopathy: (3) Liver transplant recipient: (4) Chronic renal failure, stage 3 (moderate): QUALIFIERS: Chronic kidney disease stage 3 subtype: stage 3b (GFR 30-44) Qualified Code(s): N18.32 - Chronic kidney disease, stage 3b (5) Hypokalemia: (6) Acidosis, lactic: PLAN: Plan A. fib with RVR -Patient with known history of paroxysmal atrial fibrillation -Continue home metoprolol -Per family patient was anticoagulated with Coumadin until recently and they were unaware of why this was discontinued -We were able to ascertain through records it was discontinued after a shoulder transplant but reasons were uncertain -Start Eliquis 5 mg daily -Patient has converted back into normal sinus rhythm -Recommend follow-up as an outpatient with his linen room custodian -Suspect that this may be exacerbated by DK and recommend outpatient polysomnography after discharge Toxic/metabolic encephalopathy secondary to hepatic encephalopathy -Patient had 2 bowel movements last evening -Family patient's mental status is back to baseline -No reason follow-up ammonia levels -Continue lactulose as ordered -We will disc charge with a prescription for lactulose and patient will discontinue MiraLAX at that time -Anticipate discharge in the next 24 hours -Tacrolimus level is pending however I do not anticipate this being elevated given his symptoms resolved so quickly -Goal is for at least 3 bowel movements a day with lactulose -Strongly encouraged follow-up at [facility] with party plan sales consultant -GI here consulted CKD stage IV -Baseline creatinine clearance is approximately 28 -Current serum creatinine appears to be at baseline Lactic acidosis -Resolved FELIPE/alpha-1 antitrypsin deficiency status post liver transplant -Liver transplant 2017 -Had been following at [facility] however has not followed recently as his party plan sales consultant retired -Strongly encourage follow-up at discharge -Continue tacrolimus for now -GI consultation pending -Continue home torsemide 100 mg twice daily -Continue ursodiol -Continue home Bactrim Basal cell carcinoma -Noted on scalp, above left eye, and on right arm -Anticipate related to chronic immunosuppression -Discussed with patient and family and strongly encourage follow-up soon with dermatology at [facility] Hypokalemia -40 mill equivalents p.o. potassium given -Repeat lab in a.m. -Is on chronic potassium supplementation and will continue this as well Chronic pain -Continue home oxycodone -Continue home Flexeril HFpEF -Continue home cardiac medications -Had recent echo December 2020 in our system with an EF of 50 to 65% and otherwise unremarkable DVT prophylaxis -Discontinue Eliquis -Start apixaban CODE STATUS -Full code Charges/Coding Visit Charges Inpatient E&M: 80103 [facility] Hosp L3
--- NOTE | 2022-06-20 15:59 | CASEMGMT ---
TONY received a voice mail from Yumiko at [facility]. She told TONY to fax the referral to [phone]. Yumiko's phone number is [phone] Kaley SWEENEY
--- NOTE | 2022-06-20 16:01 | CASEMGMT ---
[facility] TONY also called Yumiko and left a message letting her know SW sent a referral via [facility]. Kaley Riddle HEALTH CARE ASSISTANT ZAHRA
[2022-06-20] MEDS: APIXABAN 5 MG TABLET PO (21:13)
[2022-06-20] MEDS: MELATONIN 10 MG TABLET 5 MG PO (21:13)
[2022-06-21] VITALS (7 sets, daily range): BP systolic 113–124; BP diastolic 59–75; PULSE 53–67; RESP 18; TEMP 36.2–36.3; O2SAT 98–100
[2022-06-21] MEDS: oxyCODONE 5 MG Tablet PO ×2 (00:59→10:00)
[2022-06-21 06:27] LABS: Anion Gap 10 (5-15); BUN 30 mg/dL (7-18); BUN/Creat Ratio 10.2 RATIO (10-20); Calcium,Total 8.6 mg/dL (8.5-10.1); Chloride 107 mmol/L (98-107); Creatinine, Serum 2.93 mg/dL (0.70-1.30); EST Glomerular Filtration Rate 23 mL/min (>60); Est Glom Filt Rate - Afr Amer 28 mL/min (>60); Estimated Creatinine Clearance 27.34 ml/min; Glucose 98 mg/dL (74-106); Magnesium 1.5 mg/dL (1.6-2.6); Phosphorus 2.9 mg/dL (2.5-4.9); Potassium 3.9 mmol/L (3.5-5.1); Sodium Level 143 mmol/L (136-145)
--- NOTE | 2022-06-21 07:42 | CASEMGMT ---
TONY sent updated labs, vitals, and Progress Note to [facility] per their request. Kaley SWEENEY
[2022-06-21] MEDS: Senna/Docusate Sodium 1 Tablet 2 TABLET PO (08:37)
[2022-06-21] MEDS: Metoprolol(XL)Succ 25 MG Tablet PO (08:37)
[2022-06-21] MEDS: Ascorbic Acid 500 MG Tablet 1000 MG PO (08:37)
[2022-06-21] MEDS: Cholecalciferol (Vit D3) 125 MCG CAPSULE (5,000 UNITS) PO (08:37)
[2022-06-21] MEDS: APIXABAN 5 MG TABLET PO (08:37)
[2022-06-21] MEDS: Tacrolimus 0.5 MG Capsule PO (08:38)
[2022-06-21] MEDS: Aspirin E.C. 81 MG Tablet PO (08:38)
[2022-06-21] MEDS: Smz/Tmp Ds Tablet 0.5 TABLET PO (08:38)
[2022-06-21] MEDS: Potassium Chloride Oral Tablet 20 MEQ PO (08:38)
[2022-06-21] MEDS: Polyethylene Glycol 3350 17 GM PACKET PO (08:39)
--- NOTE | 2022-06-21 09:22 | CASEMGMT ---
TONY received a call from Yumiko with [facility]. They are willing to accept patient, but they are not hopeful that patient's insurance will approve patient. SW asked that they start the pre-cert and if patient ends up going home SW will let them know. SW will follow. Plan: likely home with outpatient therapy. However, pre-cert was submitted to insurance for [facility]. It is highly unlikely patient's insurance will approve him as he does not have a qualifying diagnosis and he is relatively high functioning. Kaley Riddle PLANING MACHINE OPERATOR MINING TECHNICIAN
[2022-06-21 11:35] LABS: Anion Gap 9 (5-15); BUN 29 mg/dL (7-18); BUN/Creat Ratio 10.1 RATIO (10-20); Calcium,Total 8.7 mg/dL (8.5-10.1); Chloride 109 mmol/L (98-107); Creatinine, Serum 2.86 mg/dL (0.70-1.30); EST Glomerular Filtration Rate 24 mL/min (>60); Est Glom Filt Rate - Afr Amer 29 mL/min (>60); Estimated Creatinine Clearance 28.01 ml/min; Glucose 151 mg/dL (74-106); Potassium 3.6 mmol/L (3.5-5.1); Sodium Level 142 mmol/L (136-145)
--- NOTE | 2022-06-21 11:40 | CASEMGMT ---
ASHANTI BROOKE NOTE: RN EDWARDO informed family interested in OP therapy. RN CM to room. @ bedside. Pt is sleeping. ASHANTI BROOKE introduced self and role. states they have decided they wish for pt to discharge home now, instead of going to [facility], and they would like OP therapy. declines wanting HHC, stating, He has had that before and I didn't like it. I thought they were pushy and I didn't like people coming into my home looking in my things. states her daughter mentioned OP therapy @ [facility], but she states she is not certain where he'll end up going and they will decide on that later. OP script for PT/OT received from Dr Monae and provided to at this time. denies having any other discharge planning needs. She states they have all the DME needed and she has good family support. Lasha CULLEN RN, CM
--- NOTE | 2022-06-21 11:42 | CASEMGMT ---
Physician informed patient that his insurance will not approve him for Inpatient Rehab. Patient is in agreement with outpatient therapy. SW notified Myron at [facility] to cancel pre-cert request. Plan: d/c home with outpatient therapy. Kaley SWEENEY
--- NOTE | 2022-06-21 11:53 | PCM.DC.SUM ---
Providers Date of Admission: 06/19/22 Date of Discharge: 06/21/22 Primary Care Physician: Dr. Raul Uribe MD Consultations 06/20/22 08:02 Consult: Gastroenterology Routine Consulting Provider: [facility] Reason for Consult: h/o liver transplant EMERGENT Consult: No MD Notified: Yes Date Notified: 06/20/22 Time Notified: 08:02 Method of Notification: Text Reason For Visit: GEN WEAKNESS Diagnosis Discharge Diagnosis (1) Atrial fibrillation with rapid ventricular response: Status: Acute Code(s): I48.91 - Unspecified atrial fibrillation (2) Acute hepatic encephalopathy: Status: Acute Code(s): K76.82 - Hepatic encephalopathy (3) Liver transplant recipient: Status: Chronic Code(s): Z94.4 - Liver transplant status (4) Chronic renal failure, stage 3 (moderate): Status: Chronic Code(s): N18.3 - Chronic kidney disease, stage 3 (moderate) Qualifiers: Chronic kidney disease stage 3 subtype: stage 3b (GFR 30-44) Qualified Code(s): N18.32 - Chronic kidney disease, stage 3b (5) Hypokalemia: Status: Acute Code(s): E87.6 - Hypokalemia (6) Acidosis, lactic: Status: Acute Code(s): E87.20 - Acidosis, unspecified Plan A. fib with RVR -Patient with known history of paroxysmal atrial fibrillation -Continue home metoprolol -Per family patient was anticoagulated with Coumadin until recently and they were unaware of why this was discontinued -We were able to ascertain through records it was discontinued after a shoulder transplant but reasons were uncertain -Start Eliquis 5 mg daily -Patient has converted back into normal sinus rhythm -Recommend follow-up as an outpatient with his daycare director -Suspect that this may be exacerbated by DK and recommend outpatient polysomnography after discharge Toxic/metabolic encephalopathy secondary to hepatic encephalopathy -Patient had 2 bowel movements last evening -Family patient's mental status is back to baseline -No reason follow-up ammonia levels -Continue lactulose as ordered -We will disc charge with a prescription for lactulose and patient will discontinue MiraLAX at that time -Anticipate discharge in the next 24 hours -Tacrolimus level is pending however I do not anticipate this being elevated given his symptoms resolved so quickly -Goal is for at least 3 bowel movements a day with lactulose -Strongly encouraged follow-up at [facility] with care management assistant -GI here consulted CKD stage IV -Baseline creatinine clearance is approximately 28 -Current serum creatinine appears to be at baseline Lactic acidosis -Resolved FELIPE/alpha-1 antitrypsin deficiency status post liver transplant -Liver transplant 2016 -Had been following at [facility] however has not followed recently as his care management assistant retired -Strongly encourage follow-up at discharge -Continue tacrolimus for now -GI consultation pending -Continue home torsemide 100 mg twice daily -Continue ursodiol -Continue home Bactrim Basal cell carcinoma -Noted on scalp, above left eye, and on right arm -Anticipate related to chronic immunosuppression -Discussed with patient and family and strongly encourage follow-up soon with dermatology at [facility] Hypokalemia -40 mill equivalents p.o. potassium given -Repeat lab in a.m. -Is on chronic potassium supplementation and will continue this as well Chronic pain -Continue home oxycodone -Continue home Flexeril HFpEF -Continue home cardiac medications -Had recent echo December 2020 in our system with an EF of 50 to 65% and otherwise unremarkable DVT prophylaxis -Discontinue Eliquis -Start apixaban CODE STATUS -Full code Medications at Discharge Home Medications aspirin 81 mg tablet,delayed release (Adult Low Dose Aspirin) 81 mg PO DAILY health maintenance 10/21/15 alprazolam 0.5 mg tablet 0.5 mg PO DAILY PRN Anxiety 04/07/19 cholecalciferol (vitamin D3) 125 mcg (5,000 unit) capsule 5,000 unit PO DAILY supplement 04/07/19 ursodiol 250 mg tablet (PAT 250) 250 mg PO TID GALLSTONES 04/07/19 potassium chloride 10 mEq tablet,extended release(part/cryst) 20 meq PO DAILY supplement 01/19/21 ascorbic acid (vitamin C) 1,000 mg tablet (Vitamin C) 1,000 mg PO DAILY SUPPLEMENT 06/19/22 cyclobenzaprine 10 mg tablet 10 mg PO TID PRN Spasms 06/19/22 famotidine 20 mg tablet (Pepcid) 20 mg PO BID GERD 06/19/22 melatonin 5 mg tablet 5 mg PO QHS SLEEP 06/19/22 metoprolol succinate 25 mg tablet,extended release 24 hr 25 mg PO 0900,2100 BP 06/19/22 ondansetron 4 mg disintegrating tablet 4 mg PO Q8H PRN Nausea 06/19/22 oxycodone 10 mg tablet 10 mg PO TID BREAKTHROUGH PAIN 06/19/22 sulfamethoxazole 400 mg-trimethoprim 80 mg tablet 1 tab PO DAILY ANTIBIOTIC 06/19/22 torsemide 100 mg tablet 100 mg PO BID FLUID 06/19/22 zinc acetate 50 mg (zinc) capsule 50 mg PO DAILY SUPPLEMENT 06/19/22 apixaban 5 mg tablet (Eliquis) 5 mg PO BID #60 tabs 06/21/22 lactulose 20 gram/30 mL oral solution 20 g (30 mL) PO BID #1,500 mL 06/21/22 rifaximin 550 mg tablet 550 mg PO BID #60 tabs 06/21/22 tacrolimus 0.5 mg capsule, immediate-release 0.5 mg PO 0900,2100 IMMUNE #60 caps 06/21/22 Hospital Course Operations None Procedures None, EKG and - (Chest x-ray) Summary of Care Provided Minutes Spent on Discharge: 38 Hospital Course: Mr. Howard is a 61-year-old white male who presented to the emergency department [facility] on 06/19/2022 with multiple complaints including irritability, jerking motions of the hand and leg, confusion, and general malaise. Patient had a known history of orthotopic liver transplant in July 2017 for which he has been on on tacrolimus since. This was done at the [facility] and he had been following with a care management assistant until approximately 1 year ago. He states that care management assistant retired and he has not received any follow-up since that point time. He also indicated that he had postoperative atrial fibrillation and had been on Coumadin previously. It was initially unclear why this was discontinued however we were able to find in documentation that it was stopped after he had a shoulder replacement. Patient denied any history of bleeding and felt that it was likely inadvertently stopped. It sounds as if he has not followed with cardiology since that point in time. He had multiple complaints on admission and his ammonia level was found to be markedly elevated at approximately 170. He was placed on lactulose and had 2 good bowel movements the night of admission. He was also found to be in A. fib with RVR on presentation with a heart rate of 147 bpm. He was given Cardizem initially and eventually converted spontaneously to normal sinus rhythm and has been in sinus rhythm since that point in time. He was maintained on his home metoprolol. We did initiate Eliquis for stroke prevention during his hospital course and he was maintained on this and discharged with a prescription for this. His mental status resolved with the lactulose and I do feel that the symptoms he was experiencing on presentation were like related to elevated ammonia level. A tacrolimus level was ordered on presentation however is a send out and was still pending upon discharge. The patient indicated that he only had 3 tablets left of his tacrolimus at the time of discharge and requested a prescription however I told him I was unable to do this given we had no current level resulted for him. They did have a call out to the [facility] to see if he could be maintained on this medication at the transplant center. Evaluation also revealed at least 3 basal cell carcinomas which he was aware he was at risk for based on his immunosuppression. We discussed this and he was able to obtain dermatology follow-up prior to discharge. I strongly encouraged keeping this appointment given the exam findings. The patient indicated he had been on lactulose previously and developed some abdominal pain and some nausea related to this and was switched to MiraLAX. It sounds as if the MiraLAX was not providing the appropriate amount of bowel movements for him. I am unclear why his ammonia level is so elevated given his history of transplant and strongly recommended follow-up with his care management assistant in [place]. We did make referral to gastroenterology here for intermittent follow-up as regular follow-up in [place] is difficult for him to get to based on his physical condition so we did think intermittent follow-up here with 1-2 visits in [place] yearly would probably be sufficient but we did strongly recommend follow-up in [place] first as its been almost a year since he has been seen by the transplant center. With his atrial fibrillation we also recommended follow-up for this. His A. fib was not new as noted above and resolved rather quickly. We did initiate anticoagulation since he does have paroxysmal atrial fibrillation and again strongly recommended follow-up with cardiology as he is already been established. He did have some debility and was seen by physical therapy although had no inpatient ongoing physical therapy needs an outpatient physical therapy prescription was written for. Prescriptions for Eliquis, lactulose (with goal to 2-3 bowel movements a day), and rifaximin was sent to his pharmacy prior to discharge. Again he was strongly encouraged to follow-up with a care management assistant, lieutenant colonel, hand tacker, and daycare director at the time of discharge. His renal function was slightly elevated on the day of discharge and he was given a 500 cc bolus with a repeat BMP. His renal function, which was 2.65 at the time of admission, increased to 2.93 and improved to 2.86 with hydration. His diuretics were held at discharge and he was told to reinitiate these on Saturday with a repeat BMP to be done on Saturday. I requested that he call his primary care physician to obtain an order for a basic metabolic profile to be done on Saturday and the results reviewed with his PCP for direction with regards to ongoing diuresis. He voiced understanding of these instructions were also placed in his discharge paperwork. I also recommended the patient have an outpatient polysomnography as I strongly suspect he has obstructive sleep apnea at baseline. Discharge diagnoses: Atrial fibrillation with RVR-resolved Toxic/metabolic encephalopathy secondary to hepatic encephalopathy-resolved CKD stage IV Lactic acidosis-resolved FELIPE/AFR 1 antitrypsin deficiency status post liver transplant Basal cell carcinoma Hypokalemia-resolved Hypomagnesemia-resolved Chronic pain HFpEF Morbid obesity Suspected DK Physical Exam Narrative Patient maintains that he is feeling well. Only complaint is right hip pain which is chronic for him. Requesting to take magnesium supplementation orally as he indicates it martinez via IV. Anxious to go home if possible. Did request discharge [facility] however meets no criteria needs per rehab services. Referral will be given for outpatient therapy. Const alert, oriented x3, no apparent distress and well nourished Constitutional Narrative: Morbidly obese white male sitting up in a chair at the bedside, talking via FaceTime on the phone with his daughter, patient appears comfortable nontoxic, able to answer all questions independently General Appearance: cooperative, comfortable, well kempt and well developed Orientation / Consciousness: awake, oriented to person, oriented to place and oriented to time Exam Limitations: no limitations Nutritional Appearance: morbidly obese HEENT normocephalic, head/scalp atraumatic, hearing grossly normal bilaterally and moist oral mucous membranes HEENT Narrative: Dentition is fair for age, Mallampati is 3-4, no thrush Eyes PERRL, EOMs intact bilaterally and conjunctivae normal Eyes Narrative: No scleral icterus Neck no lymphadenopathy and supple Neck Narrative: Trachea midline, no thyroid enlargement Resp normal respiratory effort, no retractions, no use of accessory muscles and clear to auscultation bilaterally Auscultation: Negative for crackles, rales, rhonchi or wheezes Cardio regular rate, regular rhythm, S1 normal heart sound, S2 normal heart sound, no murmurs, no rub, no gallops and no clicks GI normal to inspection, nondistended, normoactive bowel sounds, soft to palpation and non-tender GI Narrative: Large protuberant abdomen, no fluid wave noted Extremity no clubbing, cyanosis or edema Extremity Narrative: Right distal upper extremity with basal cell carcinoma Skin no wounds, skin turgor normal, no jaundice, no petechiae and no mottling Skin Narrative: Basal cell carcinomas as identified above Neuro oriented x3, CN's II-XII intact bilaterally, moves all extremities and no focal motor deficits Neuro Narrative: No asterixis, generalized weakness Speech: speech normal Psych affect normal Psych Narrative: Very talkative but appropriately interactive Weight / BMI Weight Weight: 160.3 kg Body Mass Index (BMI) 50.1 ABG / Lab / Microbiology Data Result Diagrams: 06/20/22 04:10 06/21/22 10:00 Laboratory: Laboratory Results - last 24 hr 06/21/22 04:09: Sodium 143, Potassium 3.9, Chloride 107, Carbon Dioxide 26.0, Anion Gap 10, BUN 30 H, Creatinine 2.93 H, Estim Creat Clear Calc 27.34, Est GFR (MDRD) Af Amer 28 L, Est GFR (MDRD) Non-Af 23 L, BUN/Creatinine Ratio 10.2, Glucose 98, Calcium 8.6, Phosphorus 2.9, Magnesium 1.5 L 06/21/22 10:00: Sodium 142, Potassium 3.6, Chloride 109 H, Carbon Dioxide 24.0, Anion Gap 9, BUN 29 H, Creatinine 2.86 H, Estim Creat Clear Calc 28.01, Est GFR (MDRD) Af Amer 29 L, Est GFR (MDRD) Non-Af 24 L, BUN/Creatinine Ratio 10.1, Glucose 151 H, Calcium 8.7 Microbiology: Microbiology 06/19/22 14:30 Nasal Secretion SARS-CoV-2 Antigen (Rapid) - Final D/C Instructions Discharge Diet: Low fat / Low cholesterol Discharge Activity: Return to Normal Activity Meaningful Use Info Meaningful Use Diagnoses (Choose all that apply): None applicable Discharge Plan Admission Admit Date/Time: 06/19/22 14:52 Primary Reason for Your Visit: Confusion/general malaise Attending Provider: Marisa Monae Primary Care Provider: Raul Uribe Consulting Providers: Gonzalo Diaz Instructions Additional Instructions / Restrictions: 1. Please follow-up with dermatology per scheduled appointment 2. Please follow-up with care management assistant as soon as appointment can be made 3. Please follow-up with cardiology as soon as appointment can be made 4. Please follow-up with nephrology as scheduled 5. Please call primary care physician and request a basic metabolic profile be done on Saturday to reevaluate renal function -Diuretic to be held until Saturday Discharge Orders/Prescriptions Prescriptions: New Eliquis 5 mg Tablet 5 mg PO BID Qty: 60 0RF lactulose 20 gram/30 mL solution 20 g PO BID Qty: 1500 1RF Rx Instructions: Please titrate up if needed to attain 2-3 bowel movements daily rifaximin 550 mg tablet 550 mg PO BID Qty: 60 1RF Continued aspirin [Adult Low Dose Aspirin] 81 MG tablet,delayed release (DR/EC) 81 mg PO DAILY Label Comments: [place] cholecalciferol (vitamin D3) 5,000 UNIT capsule 5,000 unit PO DAILY alprazolam 0.5 MG tablet 0.5 mg PO DAILY PRN (Reason: Anxiety) Label Comments: TAKE 1 TABLET BY MOUTH EVERY DAY NEEDED FOR ANXIETY ursodiol [PAT 250] 250 MG tablet 250 mg PO TID Label Comments: Take 1 tablet by mouth three times daily. still needs tonights dose potassium chloride 10 mEq tablet,ER particles/crystals 20 meq PO DAILY cyclobenzaprine 10 mg tablet 10 mg PO TID PRN (Reason: Spasms) Label Comments: Take 1 tablet by mouth three times daily as needed. ascorbic acid (vitamin C) [Vitamin C] 1,000 mg Tablet 1,000 mg PO DAILY zinc acetate 50 mg (zinc) Capsule 50 mg PO DAILY sulfamethoxazole-trimethoprim 400-80 mg tablet 1 tab PO DAILY Label Comments: TAKE 1 TABLET BY MOUTH DAILY famotidine [Pepcid] 20 mg Tablet 20 mg PO BID metoprolol succinate 25 mg tablet extended release 24 hr 25 mg PO 0900,2100 ondansetron 4 mg tablet,disintegrating 4 mg PO Q8H PRN (Reason: Nausea) Label Comments: Take 1 tablet by mouth every 8 hours as needed. oxycodone 10 mg tablet 10 mg PO TID Label Comments: Take 1 TABLET Three times a day for 28 Days for break through pain. melatonin 5 mg Tablet 5 mg PO QHS tacrolimus 0.5 mg capsule 0.5 mg PO 0900,2100 Qty: 60 0RF Label Comments: 1 capsule by mouth as directed Rx Instructions: Continue at the direction of [facility] Held torsemide 100 mg tablet 100 mg PO BID Hold Instructions: Resume on 06/24/22. Referrals / Follow Up: Raul Uribe MD [Primary Care Provider] - Within 1 Week FriendCory DO [Med Staff - Active Staff] - See Referral Note (As desired for gastroenterology follow-up here periodically with intermittent follow-up in [place]) Disposition Disposition (needs filled in before D/C Order can be placed): Home, Self Care Charges/Coding Visit Charges Inpatient E&M: 94508 Disch Hosp
[2022-06-21] MEDS: Magnesium Chloride 64 MG Delay Rel.Tablet 128 MG PO (12:27)
--- NOTE | 2022-06-21 15:33 | CM.UR ---
Addendum entered by Katharine Villaseñor 06/21/22 17:03: Fax received from [facility]. Rifaximin was approved through 09/01/2023. Call placed to Munira @ [facility] and she was made aware. Munira ran the medication and pt's co-pay is $848.13. Call placed to pt's , Sheba, and she was made aware prior auth obtained and co-pay of $848.13. She states this is not affordable and will f/u with Dr Bales. 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 Addendum entered by Katharine Villaseñor 06/21/22 15:57: Dr Monae made aware Rifaximin required prior auth and it may take up to [address] Monae states if insurance does not approve Rifaximin, that it is okay for pt to not take it and for him to f/u with GI. ASHANTI BROOKE placed call to pt's , Sheba. She was made aware of above and voices understanding. ASHANTI BROOKE informed her someone from [facility] would f/u with her tomorrow re: if prior auth obtained. ASHANTI BROOKE placed call to [facility] where Eliquis was e-scribed earlier today. ASHANTI BROOKE spoke w/pharmacist to provide Eliquis savings card information, but per pharmacist he cannot take this information over the phone, stating that he needs to see the card himself. Per pharmacist, co-pay for Eliquis is $47. ASHANTI BROOKE informed Sheba of co-pay amt of $47, about the 30-day savings card, and that pharmacy needs to see the card. She states will come to [facility] to cotton picking machine operator the card shortly. ASHANTI BROOKE informed her card could be taken to main lobby for her to cotton picking machine operator. She voices appreciation. Addendum entered by Rolanda Altamirano 06/21/22 15:37: Ref#[id number] Original Note: ASHANTI BROOKE updated that patient will need prior auth for Rifaximin. ASHANTI BROOKE called [facility] and completed and requested PA to be expedited. Per Ceci, request should be completed in 24 hours. ASHANTI BROOKE updated ASHANTI Alcantar.
[2022-06-25 17:45] LABS: Tacrolimus (FK506) 8.9 ng/mL (2.0-20.0)
== END 2022-06-21 12:43 | disposition home or self-care (01) | DRG 308 ==
LOC: ED 14:58 → PCU 15:11
PROVIDERS: Admitting Provider Internal Medicine; Emergency Provider Emergency Medicine; PCP Family Medicine; Visit Provider Internal Medicine
DX: I48.0 Paroxysmal atrial fibrillation (principal); G92.8 Other toxic encephalopathy; E72.20 Disorder of urea cycle metabolism, unspecified; E87.20 Acidosis, unspecified; Z68.43 Body mass index [BMI] 50.0-59.9, adult; N18.4 Chronic kidney disease, stage 4 (severe); I50.32 Chronic diastolic (congestive) heart failure; Z94.4 Liver transplant status; K76.82 Hepatic encephalopathy; D63.8 Anemia in other chronic diseases classified elsewhere; E88.01 Alpha-1-antitrypsin deficiency; I47.1 Supraventricular tachycardia; E66.01 Morbid (severe) obesity due to excess calories; I25.10 Atherosclerotic heart disease of native coronary artery without angina pectoris; I25.2 Old myocardial infarction; G47.33 Obstructive sleep apnea (adult) (pediatric); E87.6 Hypokalemia; E83.42 Hypomagnesemia; C44.41 Basal cell carcinoma of skin of scalp and neck; C44.319 Basal cell carcinoma of skin of other parts of face; C44.612 Basal cell carcinoma of skin of right upper limb, including shoulder; G89.29 Other chronic pain; Z20.822 Contact with and (suspected) exposure to COVID-19; Z79.82 Long term (current) use of aspirin; Z79.899 Other long term (current) drug therapy
CPT/HCPCS: 36415; 71045; 80048; 80053; 80197; 81001; 82140; 82977; 83605; 83735; 84100; 84443; 84484; 85025; 85610; 87811; 93005; 97162; 97166; 97802; 99251; 99285; J7030; J7120; A4216; G0463

== ENCOUNTER 2022-06-28 12:34 | Emergency (ER) | payer MEDICARE, SELFPAY ==
[2022-06-28 12:35] VITALS: BP 146/126; PULSE 162; RESP 12; TEMP 36; O2SAT 99; BMI 51.7
[2022-06-28 13:01] VITALS: BP 111/59; PULSE 162; RESP 14; O2SAT 97
--- NOTE | 2022-06-28 13:25 | EKG12_ITS ---
Test Reason : RHYTHM CHANGE Blood Pressure : / mmHG Vent. Rate : 064 BPM Atrial Rate : 064 BPM P-R Int : 218 ms QRS Dur : 088 ms QT Int : 370 ms P-R-T Axes : 042 -33 012 degrees QTc Int : 381 ms Sinus rhythm with 1st degree A-V block Left axis deviation Low voltage QRS Abnormal ECG Confirmed by KAREEM SHIPMAN, SUZE ([id number]), assignment editor JULIO CÉSAR SOLORIO ([id number]) on 06/29/2022 2:36:07 P M Referred By: Confirmed By:KOBY SERNA MD
[2022-06-28 13:26] VITALS: O2SAT 99
--- NOTE | 2022-06-28 13:26 | EDS_ITS ---
HPI History of Present Illness Chief Complaint: Palpitations Narrative Narrative: 61-year-old male presenting with palpitations and rapid heart rate. He believes in atrial fibrillation. He has a history of atrial fibrillation and atrial flutter. He states this started after his liver transplant years ago. Patient recently admitted for confusion with elevated ammonia and discharged home with lactulose. His confusion has improved. He states that the palpitations he had started about an hour and a half ago. Patient anticoagulated on Eliquis since his last visit on the . Denies black or bloody stools. Denies fever, chills, cough. Patient states that he takes torsemide 100 mg p.o. twice daily. He also states that the lactulose has not given him a lot of diarrhea and actually had a couple of days where he was not having bowel movements so he increase his dose to 3 times a day. Patient also states he is not making a lot of urine and is only urinated once today. [facility] Medical History (HFpEF) heart failure with preserved ejection fraction Acidosis, lactic Acute hypotension Anemia of chronic disease Ascites Atherosclerotic heart disease of nikolai coronary artery without angina pectoris Atrial fibrillation Atrial flutter with rapid ventricular response (02/02/21) Cellulitis Cirrhosis Coronary artery disease History of non-ST elevation myocardial infarction (NSTEMI) (12/29/20) Kidney disease Morbid obesity Multiple falls Nonsustained paroxysmal ventricular tachycardia (12/2020) Venous insufficiency Vertigo, central Home Medications aspirin 81 mg tablet,delayed release (Adult Low Dose Aspirin) 81 mg PO DAILY health maintenance 10/21/15 [History Last Taken 06/18/22] alprazolam 0.5 mg tablet 0.5 mg PO DAILY PRN Anxiety 04/07/19 [History Last Taken 02/01/21] cholecalciferol (vitamin D3) 125 mcg (5,000 unit) capsule 5,000 unit PO DAILY supplement 04/07/19 [History Last Taken 06/19/22] ursodiol 250 mg tablet (PAT 250) 250 mg PO TID GALLSTONES 04/07/19 [History Last Taken 06/19/22] potassium chloride 10 mEq tablet,extended release(part/cryst) 20 meq PO DAILY supplement 01/19/21 [History Last Taken 02/02/21] ascorbic acid (vitamin C) 1,000 mg tablet (Vitamin C) 1,000 mg PO DAILY SUPPLEMENT 06/19/22 [History Last Taken 06/18/22] cyclobenzaprine 10 mg tablet 10 mg PO TID PRN Spasms 06/19/22 [History Last Taken Unknown] melatonin 5 mg tablet 5 mg PO QHS SLEEP 06/19/22 [History Last Taken 06/18/22] metoprolol succinate 25 mg tablet,extended release 24 hr 25 mg PO 0900,2100 BP 06/19/22 [History Last Taken 06/19/22] ondansetron 4 mg disintegrating tablet 4 mg PO Q8H PRN Nausea 06/19/22 [History Last Taken 06/18/22] oxycodone 10 mg tablet 10 mg PO TID BREAKTHROUGH PAIN 06/19/22 [History Last Taken 06/19/22] sulfamethoxazole 400 mg-trimethoprim 80 mg tablet 1 tab PO DAILY ANTIBIOTIC 06/19/22 [History Last Taken 06/19/22] torsemide 100 mg tablet 100 mg PO BID FLUID 06/19/22 [History Last Taken 06/18/22] zinc acetate 50 mg (zinc) capsule 50 mg PO DAILY SUPPLEMENT 06/19/22 [History Last Taken 06/18/22] apixaban 5 mg tablet (Eliquis) 5 mg PO BID #60 tabs 06/21/22 [Rx Last Taken Unknown] lactulose 20 gram/30 mL oral solution 20 g (30 mL) PO BID #1,500 mL 06/21/22 [Rx Last Taken Unknown] tacrolimus 0.5 mg capsule, immediate-release 0.5 mg PO 0900,2100 IMMUNE #60 caps 06/21/22 [Rx Last Taken 06/19/22] Allergy/AdvReac Type Severity Reaction Status Date / Time pravastatin [From Pravachol] Allergy Hives Verified 06/19/22 12:46 [id number] Reductase Allergy Hives Verified 06/19/22 12:46 Inhibitor [[id number] Reductase Inhibitor] vancomycin Allergy NEEDS Verified 06/19/22 12:46 FOLLOW-UP zolpidem tartrate Allergy Hives Verified 06/19/22 12:46 [From Ambien] everolimus AdvReac Swelling Verified 06/19/22 12:46 gabapentin AdvReac NEEDS Verified 06/19/22 12:46 FOLLOW-UP lactulose AdvReac Upset Verified 06/19/22 12:46 Stomach Family History Mother Heart disease Father Heart disease Surgical History H/O shoulder surgery History of cardioversion (02/02/21) History of hip surgery Status post liver transplant (07/2017) Social History household members: spouse Smoking Status: Never smoker alcohol intake: current Alcohol type: other substance use type: does not use ROS ROS ED Constitutional Constitutional ED: Denies chills or fever(s) Eyes Eyes: Denies change in vision ENT ENT ED: Denies rhinorrhea or sore throat Cardiovascular Cardiovascular: Reports palpitations and racing heartbeat; Denies chest pain Respiratory/Chest Respiratory/Chest: Reports dyspnea; Denies cough Gastrointestinal Gastrointestinal: Reports diarrhea; Denies abdominal pain, constipation, nausea or vomiting Genitourinary Genitourinary ED: Denies dysuria or hematuria Musculoskeletal Musculoskeletal: Denies arthralgias or back pain Integumentary Denies abscess Neurologic Neurologic: Denies headache(s) or paresthesias Psychiatric Psychiatric: Denies anxiety or depression EXAM Physical Exam Const Vital Signs: 06/28/22 12:35 06/28/22 12:41 06/28/22 13:01 Temperature 96.8 F L Temperature Source Temporal Pulse Rate 162 H 162 H Respiratory Rate 12 14 Respiratory Effort Short of Breath Blood Pressure 146/126 H 111/59 L Blood Pressure Mean 132 76 Pulse Ox 99 97 Oxygen Delivery Method Room Air Room Air 06/28/22 13:26 06/28/22 14:33 Temperature Temperature Source Pulse Rate 67 Respiratory Rate 12 Respiratory Effort Blood Pressure 91/68 Blood Pressure Mean 75 Pulse Ox 99 98 Oxygen Delivery Method Room Air Room Air Positive well nourished and obese General Appearance ED: NAD and pallor Nutritional Appearance: obese HEENT Reports dry mucous membranes Mouth ED: Yes dry mucous membranes Mouth: dry mucous membranes Eyes PERRL and EOMs intact bilaterally General Eye ED: Negative for pale conjunctiva or scleral icterus Chest Wall inspection of chest normal Resp normal respiratory effort and clear to auscultation bilaterally Cardio regular rhythm Rate: tachycardic GI normal to inspection, nondistended, normoactive bowel sounds Back/Spine no CVA tenderness Neuro oriented x3 and CN's II-XII intact bilaterally Sensorium / Orientation: alert Motor Exam: strength 5/5 throughout Psych mental status grossly normal Skin no rashes or lesions noted and no wounds General Skin Exam: pallor; Negative for jaundice MDM MDM MDM Narrative Medical decision making narrative: Patient presenting with palpitations. A history of atrial fibrillation atrial flutter and is anticoagulated on Eliquis. EKG obtained on arrival shows a flutter at a rate of 163 bpm. This is consistent with his previous EKG 19 June 2022 which is about the same. Patient denies any chest pain. He does state he is little bit short of breath with ambulation but thinks is because of his heart rate. CBC within normal limits. BMP shows creatinine at baseline at 2.59 is actually a little bit improved. Electrolytes are normal. LFTs within normal limits with exception of an alkaline phosphatase of 166. High- sensitivity troponin is 20. BNP slightly elevated at 207.6 however chest x-ray on my interpretation shows no acute cardiopulmonary process but does show cardiomegaly. Radiologist interprets this and agrees. Patient is not hypoxic or tachypneic. Ammonia is elevated at 106 however this is significantly down from 169. The patient is mentating normally. Patient was ordered 20 of Cardizem and after 10 mg he converted to a sinus rhythm. EKG was obtained and he is now sinus rhythm with a ventricular rate of 64 bpm without sign of ischemic change or dysrhythmia. There is a noted first-degree AV block. AL interval 218 ms, QRS duration 88 ms, QTC 381 ms. Patient feels symptom-free at this point. Since his work-up is ultimately negative I feel that he can be discharged home. He is to continue his beta-satish at home. 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 Return precautions are discussed. Impression: 1. Atrial flutter 2. Hyperammonemia Lab Data Labs: Laboratory Results - last 24 hr 06/28/22 06/28/22 06/28/22 12:45 12:45 12:45 WBC 7.2 RBC 4.10 L Hgb 12.3 L Hct 36.7 L MCV 89.5 MCH 30.0 MCHC 33.5 RDW Std Deviation 47.9 H RDW Coeff of Maciel 14.7 H Plt Count 276 MPV 10.6 Immature Gran % (Auto) 0.300 Neut % (Auto) 60.9 Lymph % (Auto) 23.6 [place] % (Auto) 10.2 H Eos % (Auto) 4.6 Baso % (Auto) 0.4 Absolute Neuts (auto) 4.4 Absolute Lymphs (auto) 1.70 Nucleated RBC % 0 Sodium 138 Potassium 4.3 Chloride 103 Carbon Dioxide 26.0 Anion Gap 9 BUN 24 H Creatinine 2.59 H Estim Creat Clear Calc 30.93 Est GFR (MDRD) Af Amer 33 L Est GFR (MDRD) Non-Af 27 L BUN/Creatinine Ratio 9.3 L Glucose 142 H Calcium 9.7 Total Bilirubin 0.70 Direct Bilirubin 0.15 AST 24 ALT 16 Alkaline Phosphatase 166 H Ammonia Troponin I High Sens 20 B-Natriuretic Peptide 207.6 H Total Protein 7.3 Albumin 2.7 L Globulin 4.6 H 06/28/22 13:38 WBC RBC Hgb Hct MCV MCH MCHC RDW Std Deviation RDW Coeff of Maciel Plt Count MPV Immature Gran % (Auto) Neut % (Auto) Lymph % (Auto) [place] % (Auto) Eos % (Auto) Baso % (Auto) Absolute Neuts (auto) Absolute Lymphs (auto) Nucleated RBC % Sodium Potassium Chloride Carbon Dioxide Anion Gap BUN Creatinine Estim Creat Clear Calc Est GFR (MDRD) Af Amer Est GFR (MDRD) Non-Af BUN/Creatinine Ratio Glucose Calcium Total Bilirubin Direct Bilirubin AST ALT Alkaline Phosphatase Ammonia 106.0 H Troponin I High Sens B-Natriuretic Peptide Total Protein Albumin Globulin Radiography Diagnostic Testing: Clinical Impression(s) from Imaging Studies Chest X-Ray 06/28/22 13:54 IMPRESSION: Mild cardiomegaly. Electronically Signed: Pelon Graham MD at 14:04 EDT , Discharge Plan Triage Chief Complaint: Palpitations ED Provider: Braydon Fournier Dx/Rx/DC Orders Prescriptions: No Action aspirin [Adult Low Dose Aspirin] 81 MG tablet,delayed release (DR/EC) 81 mg PO DAILY Label Comments: heart health cholecalciferol (vitamin D3) 5,000 UNIT capsule 5,000 unit PO DAILY alprazolam 0.5 MG tablet 0.5 mg PO DAILY PRN (Reason: Anxiety) Label Comments: TAKE 1 TABLET BY MOUTH EVERY DAY NEEDED FOR ANXIETY ursodiol [PAT 250] 250 MG tablet 250 mg PO TID Label Comments: Take 1 tablet by mouth three times daily. still needs tonights dose potassium chloride 10 mEq tablet,ER particles/crystals 20 meq PO DAILY cyclobenzaprine 10 mg tablet 10 mg PO TID PRN (Reason: Spasms) Label Comments: Take 1 tablet by mouth three times daily as needed. ascorbic acid (vitamin C) [Vitamin C] 1,000 mg Tablet 1,000 mg PO DAILY zinc acetate 50 mg (zinc) Capsule 50 mg PO DAILY sulfamethoxazole-trimethoprim 400-80 mg tablet 1 tab PO DAILY Label Comments: TAKE 1 TABLET BY MOUTH DAILY torsemide 100 mg tablet 100 mg PO BID Hold Instructions: Resume on 06/24/22. metoprolol succinate 25 mg tablet extended release 24 hr 25 mg PO 0900,2100 ondansetron 4 mg tablet,disintegrating 4 mg PO Q8H PRN (Reason: Nausea) Label Comments: Take 1 tablet by mouth every 8 hours as needed. oxycodone 10 mg tablet 10 mg PO TID Label Comments: Take 1 TABLET Three times a day for 28 Days for break through pain. melatonin 5 mg Tablet 5 mg PO QHS Eliquis 5 mg Tablet 5 mg PO BID Qty: 60 0RF lactulose 20 gram/30 mL solution 20 g PO BID Qty: 1500 1RF Rx Instructions: Please titrate up if needed to attain 2-3 bowel movements daily tacrolimus 0.5 mg capsule 0.5 mg PO 0900,2100 Qty: 60 0RF Label Comments: 1 capsule by mouth as directed Rx Instructions: Continue at the direction of [facility] Primary Care Provider: Raul Uribe Referrals: Raul Uribe MD [Primary Care Provider] -
[2022-06-28] MEDS: dilTIAZem 25 MG/5 ML Vial 20 MG IV BOLUS (13:31)
[2022-06-28] MEDS: 0.9% Normal Saline 1,000 ML 1000 ML IV (13:31)
[2022-06-28 13:43] LABS: Absolute Neutrophil Count 4.4 X10^3/uL (2.0-7.7); Basophil# 0.03 X10^3/uL; Basophil% 0.4 % (0-1); Eosinophil# 0.33 X10^3/uL; Eosinophils% 4.6 % (0-5); Hematocrit 36.7 % (40-54); Hemoglobin 12.3 g/dL (13.0-16.5); Lymphocyte % 23.6 % (19-41); Mean Corp Hgb Conc 33.5 g/dL (32-36); Mean Corpuscular Volume 89.5 fL (80-94); Mean Platelet Vol. 10.6 fl (6.2-12.0); Monocyte# 0.73 X10^3/uL; Monocyte% 10.2 % (0-10); NRBC Flagged by Analyzer 0 % (0-5); Neutrophil # 4.38 X10^3/uL (2.7-7.7); Neutrophil % 60.9 % (47-70); Platelet Count 276 K/mm3 (150-450); RBC Distribution Width CV 14.7 % (11.6-14.6); RBC Distribution Width SD 47.9 fl (35.1-43.9); White Blood Count 7.2 K/mm3 (4.4-11.0)
--- NOTE | 2022-06-28 13:43 | EKG12_ITS ---
Test Reason : SVT VS AFIB Blood Pressure : / mmHG Vent. Rate : 163 BPM Atrial Rate : 326 BPM P-R Int : 000 ms QRS Dur : 084 ms QT Int : 274 ms P-R-T Axes : 000 -29 015 degrees QTc Int : 451 ms Atrial flutter with 2:1 A-V conduction Nonspecific ST abnormality Abnormal ECG Confirmed by KAREEM HSIPMAN, SUZE ([id number]), development editor JULIO CÉSAR SOLORIO ([id number]) on 06/29/2022 2:36:26 P M Referred By: ART/VANESSA Confirmed By:KOBY SERNA MD
--- NOTE | 2022-06-28 13:54 | RAD_ITS ---
STUDY: X-RAY CHEST REASON FOR EXAM: Male, 61 years old. Chest pain TECHNIQUE: Single AP portable view of the chest. COMPARISON: Comparison is made with prior study dated 06/19/2022. FINDINGS: EKG electrodes are seen. The lungs are clear and expanded. There is no demonstrated pleural abnormality. There is mild cardiac enlargement. Normal mediastinum and debora. Normal visualized pulmonary arteries. Normal visualized aortic arch and descending thoracic aorta. Normal visualized thoracic spine. The patient is status post left shoulder replacement. There is no demonstrated abnormality of the visualized soft tissue structures of the upper abdomen. RAD/Chest 1 View (Portable) IMPRESSION: Mild cardiomegaly. Electronically Signed: Pelon Graham MD at 14:04 EDT ,
[2022-06-28 14:00] LABS: BNP,B-Type NATRIURETIC PEPTIDE 207.6 pg/mL (0-100)
[2022-06-28 14:01] LABS: AST(SGOT) 24 U/L (15-37); Alanine Aminotransfer ALT/SGPT 16 U/L (16-61); Albumin, Serum 2.7 g/dL (3.2-5.0); Alkaline Phosphatase 166 U/L (45-117); Anion Gap 9 (5-15); BUN 24 mg/dL (7-18); BUN/Creat Ratio 9.3 RATIO (10-20); Bilirubin, Direct 0.15 mg/dL (0.00-0.30); Calcium,Total 9.7 mg/dL (8.5-10.1); Chloride 103 mmol/L (98-107); Creatinine, Serum 2.59 mg/dL (0.70-1.30); EST Glomerular Filtration Rate 27 mL/min (>60); Est Glom Filt Rate - Afr Amer 33 mL/min (>60); Estimated Creatinine Clearance 30.93 ml/min; Globulin 4.6 g/dL (2.2-4.2); Glucose 142 mg/dL (74-106); Potassium 4.3 mmol/L (3.5-5.1); Protein, Total 7.3 g/dL (6.4-8.2); Sodium Level 138 mmol/L (136-145); Troponin-I HS (w/2H Reflex) 20 pg/mL (3.0-78.0)
[2022-06-28 14:33] VITALS: BP 91/68; PULSE 67; RESP 12; O2SAT 98
[2022-06-28 14:49] VITALS: BP 116/67; PULSE 59; RESP 18; O2SAT 100
[2022-06-28 15:36] LABS: Reflex Troponin-HS? (from REC) Y
== END 2022-06-28 15:08 | disposition home or self-care (01) ==
PROVIDERS: Emergency Provider Student in an Organized Health Care Education/Training Program; PCP Family Medicine; Visit Provider Student in an Organized Health Care Education/Training Program
DX: I48.92 Unspecified atrial flutter (principal); Z94.4 Liver transplant status; I50.32 Chronic diastolic (congestive) heart failure; I48.91 Unspecified atrial fibrillation; E66.01 Morbid (severe) obesity due to excess calories; E72.20 Disorder of urea cycle metabolism, unspecified; I25.10 Atherosclerotic heart disease of native coronary artery without angina pectoris; R41.0 Disorientation, unspecified; R06.00 Dyspnea, unspecified; R19.7 Diarrhea, unspecified; I25.2 Old myocardial infarction; Z79.01 Long term (current) use of anticoagulants; Z79.82 Long term (current) use of aspirin; Z79.899 Other long term (current) drug therapy
CPT/HCPCS: 71045; 80048; 80076; 82140; 83880; 84484; 85025; 93005; 96361; 96374; 99285; A4216

== ENCOUNTER 2022-07-20 12:42 | Inpatient (IN) | payer MEDICARE, SELFPAY ==
[2022-07-20] VITALS (12 sets, daily range): BP systolic 80–116; BP diastolic 52–74; PULSE 58–156; RESP 15–22; TEMP 36.5–36.7; O2SAT 95–100; BMI 49.1; BMI 50.9
--- NOTE | 2022-07-20 12:57 | EKG12_ITS ---
Test Reason : PALP Blood Pressure : / mmHG Vent. Rate : 149 BPM Atrial Rate : 298 BPM P-R Int : 000 ms QRS Dur : 086 ms QT Int : 294 ms P-R-T Axes : 000 -30 016 degrees QTc Int : 463 ms Atrial flutter with 2:1 A-V conduction Left axis deviation Abnormal ECG Confirmed by SAHIL SHIPMAN, ROULA ([id number]), electronic news gathering editor JULIO CÉSAR SOLORIO ([id number]) on 07/24/2022 7:25:44 AM Referred By: Confirmed By:ROULA BAXTER MD
--- NOTE | 2022-07-20 13:10 | EX.ED.DYSGE1 ---
HPI <SVETLANA Payton - Last Filed: 07/20/22 15:43> History of Present Illness Chief Complaint: Palpitations Narrative Narrative: Patient is a 61-year-old male with history of morbid obesity, a flutter on Eliquis, OGLESBY, acute kidney disease presents to the emergency department with atrial fibrillation, dizziness. Patient states that throughout the night he was feeling himself go in and out of atrial fibrillation. Patient states that today he was having a bowel movement when he feeling he was going to have a near syncopal episode. Patient called his daughter who brought him to the emergency department. Patient denies any chest pain. Patient she does feel weak and overall tired. He can feel his heart going fast and irregular. He denies any fever or chills. PFSH <SVETLANA Payton - Last Filed: 07/20/22 15:43> [facility] Medical History (HFpEF) heart failure with preserved ejection fraction Acidosis, lactic Acute hypotension Anemia of chronic disease Ascites Atherosclerotic heart disease of lime coronary artery without angina pectoris Atrial fibrillation Atrial flutter with rapid ventricular response (02/02/21) Cellulitis Cirrhosis Coronary artery disease History of non-ST elevation myocardial infarction (NSTEMI) (12/29/20) Kidney disease Morbid obesity Multiple falls Nonsustained paroxysmal ventricular tachycardia (12/2020) Venous insufficiency Vertigo, central Home Medications aspirin 81 mg tablet,delayed release (Adult Low Dose Aspirin) 81 mg PO DAILY health maintenance 10/21/15 [History Last Taken 06/18/22] alprazolam 0.5 mg tablet 0.5 mg PO DAILY PRN Anxiety 04/07/19 [History Last Taken 02/01/21] cholecalciferol (vitamin D3) 125 mcg (5,000 unit) capsule 5,000 unit PO DAILY supplement 04/07/19 [History Last Taken 06/19/22] ursodiol 250 mg tablet (PAT 250) 250 mg PO TID GALLSTONES 04/07/19 [History Last Taken 06/19/22] potassium chloride 10 mEq tablet,extended release(part/cryst) 20 meq PO DAILY supplement 01/19/21 [History Last Taken 02/02/21] ascorbic acid (vitamin C) 1,000 mg tablet (Vitamin C) 1,000 mg PO DAILY SUPPLEMENT 06/19/22 [History Last Taken 06/18/22] cyclobenzaprine 10 mg tablet 10 mg PO TID PRN Spasms 06/19/22 [History Last Taken Unknown] melatonin 5 mg tablet 5 mg PO QHS SLEEP 06/19/22 [History Last Taken 06/18/22] metoprolol succinate 25 mg tablet,extended release 24 hr 25 mg PO 0900,2100 BP 06/19/22 [History Last Taken 06/19/22] ondansetron 4 mg disintegrating tablet 4 mg PO Q8H PRN Nausea 06/19/22 [History Last Taken 06/18/22] oxycodone 10 mg tablet 10 mg PO TID BREAKTHROUGH PAIN 06/19/22 [History Last Taken 06/19/22] sulfamethoxazole 400 mg-trimethoprim 80 mg tablet 1 tab PO DAILY ANTIBIOTIC 06/19/22 [History Last Taken 06/19/22] torsemide 100 mg tablet 100 mg PO BID FLUID 06/19/22 [History Last Taken 06/18/22] zinc acetate 50 mg (zinc) capsule 50 mg PO DAILY SUPPLEMENT 06/19/22 [History Last Taken 06/18/22] apixaban 5 mg tablet (Eliquis) 5 mg PO BID #60 tabs 06/21/22 [Rx Last Taken Unknown] lactulose 20 gram/30 mL oral solution 20 g (30 mL) PO BID #1,500 mL 06/21/22 [Rx Last Taken Unknown] tacrolimus 0.5 mg capsule, immediate-release 0.5 mg PO 0900,2100 IMMUNE #60 caps 06/21/22 [Rx Last Taken 06/19/22] Allergy/AdvReac Type Severity Reaction Status Date / Time pravastatin [From Pravachol] Allergy Hives Verified 07/20/22 12:44 Wnbtmeu-XCH-FqO Reductase Allergy Hives Verified 07/20/22 12:44 Inhibitor [Xfbibfh-Imd-Pgt Reductase Inhibitor] vancomycin Allergy NEEDS Verified 07/20/22 12:44 FOLLOW-UP zolpidem tartrate Allergy Hives Verified 07/20/22 12:44 [From Ambien] everolimus AdvReac Swelling Verified 07/20/22 12:44 gabapentin AdvReac NEEDS Verified 07/20/22 12:44 FOLLOW-UP Family History Mother Heart disease Father Heart disease Surgical History H/O shoulder surgery History of cardioversion (02/02/21) History of hip surgery Status post liver transplant (07/2017) Social History household members: spouse Smoking Status: Never smoker alcohol intake: current Alcohol type: other substance use type: does not use ROS <SVETLANA Payton - Last Filed: 07/20/22 15:43> ROS ED ROS Narrative Constitutional: Negative for fever, chills, weight loss. Positive for generalized weakness Eyes: Negative for vision loss, vision change, double vision ENT: Negative for any sore throat, ear pain, congestion Cardiovascular: Negative for any chest pain, tightness. Positive palpitations Respiratory: Negative for any cough, sputum production, hemoptysis, dyspnea on exertion, orthopnea. Positive dyspnea Gastrointestinal: Negative for any abdominal pain, nausea, vomiting, diarrhea, constipation, blood in stool, blood in vomit : Negative for any urinary frequency, dysuria, retention, blood in urine Muscle skeletal: Negative for any muscle joint pain, stiffness, myalgias, arthralgias, neck pain, back pain Neurological: Negative for any headache, syncope, numbness or tingling, dizziness Skin: Negative for any rashes, lumps, itching, abrasions, lacerations Psychiatric: Negative for any depression, anxiety, stress, suicidal ideation, homicidal ideation Hematologic: Negative for any easy bruising, excessive bruising, easy bleeding Allergies: Negative for any eczema, hives, rash EXAM <SVETLANA Payton - Last Filed: 07/20/22 15:43> Physical Exam Narrative Exam Narrative: Vital signs reviewed. Patient's heart rate is in the 150s, patient's blood pressure is 80 systolic, patient is alert and orient x4. HEET: Head normocephalic atraumatic, TMs clear bilaterally. Posterior pharynx is clear, dry mucous membranes. Nares clear bilaterally. Neck: Supple with no lymphadenopathy or tenderness. No signs of meningismus, negative jolt sign. Cardiac: Tachycardic rate no murmurs gallops or rubs, equal peripheral pulses bilaterally. Respiratory: Lungs clear to auscultation bilaterally, limited exam secondary to body habitus. No chest tenderness. Abdomen: Soft, nontender, nondistended. No abdominal bruit or pulsatile masses. No hepatosplenomegaly Extremities: No peripheral edema, no signs of gross trauma or deformity. Active full range of motion of all extremities. Neuro: Cranial nerves II through XII intact, no focal neurological deficits. Skin: Clean dry and intact with no rash, purpura, petechiae, vesicles or pustules. Backs/flank: No CVA tenderness, no midline spinal tenderness, no deformity. Psych: Normal mood and affect. No SI, HI or acute psychosis. Const Vital Signs: 07/20/22 12:44 07/20/22 12:58 07/20/22 12:58 Temperature 97.9 F Temperature Source Oral Pulse Rate 156 H Respiratory Rate 22 H Respiratory Effort Normal Non-Labored Respiratory Pattern Normal Blood Pressure 80/53 L Blood Pressure Mean 62 Pulse Ox 96 95 Oxygen Delivery Method Room Air Room Air 07/20/22 13:16 07/20/22 13:25 07/20/22 14:43 Temperature Temperature Source Pulse Rate 151 H 67 137 H Respiratory Rate 20 H 15 Respiratory Effort Respiratory Pattern Blood Pressure 107/74 116/71 Blood Pressure Mean 85 86 Pulse Ox 98 95 Oxygen Delivery Method Room Air Room Air 07/20/22 14:53 Temperature Temperature Source Pulse Rate 59 L Respiratory Rate 16 Respiratory Effort Respiratory Pattern Blood Pressure 91/52 L Blood Pressure Mean 65 Pulse Ox 100 Oxygen Delivery Method Room Air <Dr. Braydon Fournier, DO - Last Filed: 07/20/22 15:51> Physical Exam Const Vital Signs: 07/20/22 12:44 07/20/22 12:58 07/20/22 12:58 Temperature 97.9 F Temperature Source Oral Pulse Rate 156 H Respiratory Rate 22 H Respiratory Effort Normal Non-Labored Respiratory Pattern Normal Blood Pressure 80/53 L Blood Pressure Mean 62 Pulse Ox 96 95 Oxygen Delivery Method Room Air Room Air 07/20/22 13:16 07/20/22 13:25 07/20/22 14:43 Temperature Temperature Source Pulse Rate 151 H 67 137 H Respiratory Rate 20 H 15 Respiratory Effort Respiratory Pattern Blood Pressure 107/74 116/71 Blood Pressure Mean 85 86 Pulse Ox 98 95 Oxygen Delivery Method Room Air Room Air 07/20/22 14:53 Temperature Temperature Source Pulse Rate 59 L Respiratory Rate 16 Respiratory Effort Respiratory Pattern Blood Pressure 91/52 L Blood Pressure Mean 65 Pulse Ox 100 Oxygen Delivery Method Room Air [facility] [place] <Kevin VargasSVETLANA otto - Last Filed: 07/20/22 15:43> [facility] [place] Lab Data Labs: Laboratory Results - last 24 hr 07/20/22 07/20/22 07/20/22 12:55 12:55 12:55 WBC 20.1 H RBC 3.78 L Hgb 11.1 L Hct 32.4 L MCV 85.7 MCH 29.4 MCHC 34.3 RDW Std Deviation 44.0 H RDW Coeff of Maciel 14.2 Plt Count 308 MPV 10.3 Immature Gran % (Auto) 1.000 H Neut % (Auto) 92.9 H Lymph % (Auto) 3.2 L [place] % (Auto) 2.8 Eos % (Auto) 0.0 Baso % (Auto) 0.1 Absolute Neuts (auto) 18.7 H Absolute Lymphs (auto) 0.64 L Nucleated RBC % 0 PT 23.4 H INR 2.1 Sodium 134 L Potassium 4.2 Chloride 99 Carbon Dioxide 22.0 Anion Gap 13 BUN 35 H Creatinine 3.01 H Estim Creat Clear Calc 26.61 Est GFR (MDRD) Af Amer 27 L Est GFR (MDRD) Non-Af 23 L BUN/Creatinine Ratio 11.6 Glucose 210 H Lactic Acid Calcium 9.6 Total Bilirubin 0.60 Direct Bilirubin 0.24 AST 16 ALT 14 L Alkaline Phosphatase 154 H Ammonia Troponin I High Sens 23 B-Natriuretic Peptide Total Protein 7.1 Albumin 2.2 L Globulin 4.9 H Lipase 42 L Urine Color Urine Clarity Urine pH Ur Specific [place] Urine Protein Urine Glucose (UA) Urine Ketones Urine Occult Blood Urine Nitrite Urine Bilirubin Urine Urobilinogen Ur Leukocyte Esterase Urine RBC Urine WBC Ur Squamous Epith Cells Urine Bacteria Urine Mucus 07/20/22 07/20/22 07/20/22 12:55 13:25 14:00 WBC RBC Hgb Hct MCV MCH MCHC RDW Std Deviation RDW Coeff of Maciel Plt Count MPV Immature Gran % (Auto) Neut % (Auto) Lymph % (Auto) [place] % (Auto) Eos % (Auto) Baso % (Auto) Absolute Neuts (auto) Absolute Lymphs (auto) Nucleated RBC % PT INR Sodium Potassium Chloride Carbon Dioxide Anion Gap BUN Creatinine Estim Creat Clear Calc Est GFR (MDRD) Af Amer Est GFR (MDRD) Non-Af BUN/Creatinine Ratio Glucose Lactic Acid 3.7 H* Calcium Total Bilirubin Direct Bilirubin AST ALT Alkaline Phosphatase Ammonia 47.0 H Troponin I High Sens B-Natriuretic Peptide 532.3 H Total Protein Albumin Globulin Lipase Urine Color Urine Clarity Urine pH Ur Specific [place] Urine Protein Urine Glucose (UA) Urine Ketones Urine Occult Blood Urine Nitrite Urine Bilirubin Urine Urobilinogen Ur Leukocyte Esterase Urine RBC Urine WBC Ur Squamous Epith Cells Urine Bacteria Urine Mucus 07/20/22 15:00 WBC RBC Hgb Hct MCV MCH MCHC RDW Std Deviation RDW Coeff of Maciel Plt Count MPV Immature Gran % (Auto) Neut % (Auto) Lymph % (Auto) [place] % (Auto) Eos % (Auto) Baso % (Auto) Absolute Neuts (auto) Absolute Lymphs (auto) Nucleated RBC % PT INR Sodium Potassium Chloride Carbon Dioxide Anion Gap BUN Creatinine Estim Creat Clear Calc Est GFR (MDRD) Af Amer Est GFR (MDRD) Non-Af BUN/Creatinine Ratio Glucose Lactic Acid Calcium Total Bilirubin Direct Bilirubin AST ALT Alkaline Phosphatase Ammonia Troponin I High Sens B-Natriuretic Peptide Total Protein Albumin Globulin Lipase Urine Color Yellow Urine Clarity Clear Urine pH 6.0 Ur Specific [place] 1.010 Urine Protein Negative Urine Glucose (UA) Normal Urine Ketones Negative Urine Occult Blood Negative Urine Nitrite Negative Urine Bilirubin Negative Urine Urobilinogen Normal Ur Leukocyte Esterase Negative Urine RBC 0 SEEN Urine WBC 0 SEEN Ur Squamous Epith Cells 0 SEEN Urine Bacteria 0 SEEN Urine Mucus 0 SEEN Radiography Diagnostic Testing: Clinical Impression(s) from Imaging Studies Chest X-Ray 07/20/22 13:45 IMPRESSION: Cardiomegaly. The lungs are clear. Electronically Signed: Pelon Graham MD at 14:07 EST , EKG A flutter with 2-1 AV conduction: Comments: Patient's initial EKG at 1303, shows a flutter with 2-1 AV conduction, rate of 149 bpm, QRS duration is 86 ms, Repeat EKG, normal sinus rhythm: Attestation: I personally reviewed and interpreted this EKG as follows: Comments: Repeat EKG before any medications show normal sinus rhythm with a rate of 63 bpm, SD interval 200 ms, QRS duration 90 ms, no acute ST elevation, no acute infarct noted. Treatment and Re-Evaluation Narrative: Patient arrives alert and orient x4, patient was tachycardic in the 150s, a flutter, patient's blood pressure was soft at 80 systolic. Patient was given 1 L of normal saline. Patient did receive a full cardiac work-up. Patient was stable and not needed cardioversion. Patient received a chest x-ray inter by ER physician which shows no acute process. Patient's laboratory studies show a 20,000 white count, this is abnormal for this patient. On June 28, his white blood count was 7.2. Patient's PT/INR showed a PT of 23.4, INR 2.1. Patient's chemistries show a creatinine of 3.0, this is slightly elevated from 2.59 however he has been to 2.93. Patient's lactic acid was 3.7 however he seems to be consistently high over 3 since 06/19/2022. Patient's troponin was negative, patient's ammonia level was elevated secondary to his Oglesby, it was 47 however this is a significant improvement from 106 on 06/28/2022. I did speak with cardiology, he did state that the bolus of amiodarone 150 would be appropriate and he can be placed on 200 mg amiodarone daily by mouth. I did speak with hospitalist, patient will need to be admitted to the hospital for atrial fibrillation, hypotension, near syncope. Patient is agreeable with the plan. At this time his blood pressure is 91 systolic with a heart rate of 67 normal sinus rhythm. Patient stable for admission. At this time we are not going to perform the fluid replacement therapy. Patient has no active NV, ACS, ischemia. \ <Dr. Braydon Fournier, DO - Last Filed: 07/20/22 15:51> [facility] Narrative Medical decision making narrative: This patient was seen with a PA/[employer] Individually assessed they patient including history and physical. I have reviewed everything on the chart that is available and agree with the documentation provided by the PA/[employer] including discussion about the assessment, treatment plan, discussion, and return precautions. 61-year-old male with history of atrial fibrillation presenting tachycardic and hypotensive. Patient reportedly had this started about 2 hours ago. His family reports he gave him a dose of metoprolol 25 mg this morning to give an extra dose prior to coming to see if they could break his fast rhythm. EKG obtained on arrival shows atrial flutter with rate of 149 bpm. Patient is a blood pressure 80/53. He is given 500 cc normal saline his blood pressure did improve. He was ordered 150 mg of amiodarone given his low blood pressure however spontaneously converted into a sinus rhythm. His EKG confirmed this with a sinus rhythm at 63 bpm without change or dysrhythmia. Patient later went back into atrial fibrillation and was given 120 mg of amiodarone and his heart rate is now 58. Blood pressure is 103/53. Discussed with cardiology and they recommended amiodarone and observation to the hospital. CBC shows a leukocytosis of 20.1 and given the tachycardia and low blood pressure sepsis work-up was pursued. Hemoglobin hematocrit are stable. INR 2.1. PT 23.4. Creatinine is increased at 3.01 which is above his baseline. He was given additional 500 cc of normal saline. Chest x-ray on my interpretation shows no acute cardiopulmonary process and the radiologist agree. Patient with history of Oglesby and his ammonia level has improved. He is on lactulose. BNP elevated at 532. Urinalysis negative for infection high-sensitivity troponin is 23. Patient's lactic acid is elevated at 3.7 but this has been elevated in the past. Given the abdominal source of infection I did not give him 30 cc/kg bolus. I feel his blood pressure and his heart rate are due to A. fib/flutter. Additionally the amiodarone seems to drop his blood pressure and heart rate. Patient was discussed with hospitalist for admission. Impression: 1. A. fib with RVR 2. Hypotension resolved 3. Chest pain 4. History of Oglesby 5. Leukocytosis 6. Lactic acidosis 7. Acute kidney injury Lab Data Attestation: I reviewed the patient's lab results. Labs: Laboratory Results - last 24 hr 07/20/22 07/20/22 07/20/22 12:55 12:55 12:55 WBC 20.1 H RBC 3.78 L Hgb 11.1 L Hct 32.4 L MCV 85.7 MCH 29.4 MCHC 34.3 RDW Std Deviation 44.0 H RDW Coeff of Maciel 14.2 Plt Count 308 MPV 10.3 Immature Gran % (Auto) 1.000 H Neut % (Auto) 92.9 H Lymph % (Auto) 3.2 L [place] % (Auto) 2.8 Eos % (Auto) 0.0 Baso % (Auto) 0.1 Absolute Neuts (auto) 18.7 H Absolute Lymphs (auto) 0.64 L Nucleated RBC % 0 PT 23.4 H INR 2.1 Sodium 134 L Potassium 4.2 Chloride 99 Carbon Dioxide 22.0 Anion Gap 13 BUN 35 H Creatinine 3.01 H Estim Creat Clear Calc 26.61 Est GFR (MDRD) Af Amer 27 L Est GFR (MDRD) Non-Af 23 L BUN/Creatinine Ratio 11.6 Glucose 210 H Lactic Acid Calcium 9.6 Total Bilirubin 0.60 Direct Bilirubin 0.24 AST 16 ALT 14 L Alkaline Phosphatase 154 H Ammonia Troponin I High Sens 23 B-Natriuretic Peptide Total Protein 7.1 Albumin 2.2 L Globulin 4.9 H Lipase 42 L Urine Color Urine Clarity Urine pH Ur Specific [place] Urine Protein Urine Glucose (UA) Urine Ketones Urine Occult Blood Urine Nitrite Urine Bilirubin Urine Urobilinogen Ur Leukocyte Esterase Urine RBC Urine WBC Ur Squamous Epith Cells Urine Bacteria Urine Mucus 07/20/22 07/20/22 07/20/22 12:55 13:25 14:00 WBC RBC Hgb Hct MCV MCH MCHC RDW Std Deviation RDW Coeff of Maciel Plt Count MPV Immature Gran % (Auto) Neut % (Auto) Lymph % (Auto) [place] % (Auto) Eos % (Auto) Baso % (Auto) Absolute Neuts (auto) Absolute Lymphs (auto) Nucleated RBC % PT INR Sodium Potassium Chloride Carbon Dioxide Anion Gap BUN Creatinine Estim Creat Clear Calc Est GFR (MDRD) Af Amer Est GFR (MDRD) Non-Af BUN/Creatinine Ratio Glucose Lactic Acid 3.7 H* Calcium Total Bilirubin Direct Bilirubin AST ALT Alkaline Phosphatase Ammonia 47.0 H Troponin I High Sens B-Natriuretic Peptide 532.3 H Total Protein Albumin Globulin Lipase Urine Color Urine Clarity Urine pH Ur Specific [place] Urine Protein Urine Glucose (UA) Urine Ketones Urine Occult Blood Urine Nitrite Urine Bilirubin Urine Urobilinogen Ur Leukocyte Esterase Urine RBC Urine WBC Ur Squamous Epith Cells Urine Bacteria Urine Mucus 07/20/22 15:00 WBC RBC Hgb Hct MCV MCH MCHC RDW Std Deviation RDW Coeff of Maciel Plt Count MPV Immature Gran % (Auto) Neut % (Auto) Lymph % (Auto) [place] % (Auto) Eos % (Auto) Baso % (Auto) Absolute Neuts (auto) Absolute Lymphs (auto) Nucleated RBC % PT INR Sodium Potassium Chloride Carbon Dioxide Anion Gap BUN Creatinine Estim Creat Clear Calc Est GFR (MDRD) Af Amer Est GFR (MDRD) Non-Af BUN/Creatinine Ratio Glucose Lactic Acid Calcium Total Bilirubin Direct Bilirubin AST ALT Alkaline Phosphatase Ammonia Troponin I High Sens B-Natriuretic Peptide Total Protein Albumin Globulin Lipase Urine Color Yellow Urine Clarity Clear Urine pH 6.0 Ur Specific [place] 1.010 Urine Protein Negative Urine Glucose (UA) Normal Urine Ketones Negative Urine Occult Blood Negative Urine Nitrite Negative Urine Bilirubin Negative Urine Urobilinogen Normal Ur Leukocyte Esterase Negative Urine RBC 0 SEEN Urine WBC 0 SEEN Ur Squamous Epith Cells 0 SEEN Urine Bacteria 0 SEEN Urine Mucus 0 SEEN Radiography Diagnostic Testing: Clinical Impression(s) from Imaging Studies Chest X-Ray 07/20/22 13:45 IMPRESSION: Cardiomegaly. The lungs are clear. Electronically Signed: Pelon Graham MD at 14:07 EST , Discharge Plan Dx/Rx/DC Orders Clinical Impression: Atrial flutter with rapid ventricular response, OGLESBY (nonalcoholic steatohepatitis), Weakness, Acute kidney injury, Near syncope Disposition Disposition: Acute Care Hospital [facility]
[2022-07-20 13:13] LABS: Absolute Lymphocyte Count 0.64 X10^3/uL (0.83-4.51); Absolute Neutrophil Count 18.7 X10^3/uL (2.0-7.7); Basophil# 0.02 X10^3/uL; Basophil% 0.1 % (0-1); Hematocrit 32.4 % (40-54); Hemoglobin 11.1 g/dL (13.0-16.5); Lymphocyte # 0.64 X10^3/ul (0.83-4.51); Lymphocyte % 3.2 % (19-41); Mean Corp Hgb Conc 34.3 g/dL (32-36); Mean Corpuscular Hgb 29.4 pg (27.0-32.0); Mean Corpuscular Volume 85.7 fL (80-94); Mean Platelet Vol. 10.3 fl (6.2-12.0); Monocyte# 0.56 X10^3/uL; Monocyte% 2.8 % (0-10); NRBC Flagged by Analyzer 0 % (0-5); Neutrophil # 18.65 X10^3/uL (2.7-7.7); Neutrophil % 92.9 % (47-70); Platelet Count 308 K/mm3 (150-450); RBC Distribution Width CV 14.2 % (11.6-14.6); Red Blood Count 3.78 M/mm3 (4.6-6.2); White Blood Count 20.1 K/mm3 (4.4-11.0)
[2022-07-20 13:20] LABS: International Normalized Ratio 2.1; Prothrombin Time (Protime)PT. 23.4 SECONDS (11.7-14.9)
[2022-07-20 13:32] LABS: AST(SGOT) 16 U/L (15-37); Alanine Aminotransfer ALT/SGPT 14 U/L (16-61); Albumin, Serum 2.2 g/dL (3.2-5.0); Alkaline Phosphatase 154 U/L (45-117); Anion Gap 13 (5-15); BUN 35 mg/dL (7-18); BUN/Creat Ratio 11.6 RATIO (10-20); Bilirubin, Direct 0.24 mg/dL (0.00-0.30); Calcium,Total 9.6 mg/dL (8.5-10.1); Chloride 99 mmol/L (98-107); Creatinine, Serum 3.01 mg/dL (0.70-1.30); EST Glomerular Filtration Rate 23 mL/min (>60); Est Glom Filt Rate - Afr Amer 27 mL/min (>60); Estimated Creatinine Clearance 26.61 ml/min; Globulin 4.9 g/dL (2.2-4.2); Glucose 210 mg/dL (74-106); Lipase 42 U/L (73-393); Potassium 4.2 mmol/L (3.5-5.1); Protein, Total 7.1 g/dL (6.4-8.2); Sodium Level 134 mmol/L (136-145); Troponin-I HS (w/2H Reflex) 23 pg/mL (3.0-78.0)
--- NOTE | 2022-07-20 13:45 | RAD_ITS ---
STUDY: X-RAY CHEST REASON FOR EXAM: Male, 61 years old. Chest pain TECHNIQUE: Single AP portable view of the chest. COMPARISON: Comparison is made with prior study 06/28/2022. FINDINGS: EKG electrodes are seen. The lungs are clear and expanded. There is no demonstrated pleural abnormality. There is borderline cardiomegaly. Normal mediastinum and debora. Normal visualized pulmonary arteries. Normal visualized aortic arch and descending thoracic aorta. Normal visualized thoracic spine. The patient is status post left shoulder replacement. There is no demonstrated abnormality of the visualized soft tissue structures of the upper abdomen. RAD/Chest 1 View (Portable) IMPRESSION: Cardiomegaly. The lungs are clear. Electronically Signed: Pelon Graham MD at 14:07 EST ,
[2022-07-20 13:49] LABS: BNP,B-Type NATRIURETIC PEPTIDE 532.3 pg/mL (0-100)
--- NOTE | 2022-07-20 14:20 | EKG12_ITS ---
Test Reason : CHEST TIGHT Blood Pressure : / mmHG Vent. Rate : 063 BPM Atrial Rate : 063 BPM P-R Int : 200 ms QRS Dur : 090 ms QT Int : 388 ms P-R-T Axes : 040 -27 022 degrees QTc Int : 397 ms Normal sinus rhythm Low voltage QRS Borderline ECG Confirmed by SAHIL SHIPMAN, ROULA ([id number]), editor managing newspaper JULIO CÉSAR SOLORIO ([id number]) on 07/24/2022 7:26:01 AM Referred By: WANDA Confirmed By:ROULA BAXTER MD
[2022-07-20 14:57] LABS: Lactic Acid 3.7 mmol/L (0.4-1.9)
[2022-07-20 15:09] LABS: Reflex Troponin-HS? (from REC) Y
--- NOTE | 2022-07-20 15:09 | HP.PCM.HOS_ITS ---
HPI - General General Date of Admission: 07/20/22 Date of Service: 07/20/22 Chief Complaint: palpitations HPI Narrative ESTEFANIA MILLER, is a 61 M with a PMH as outlined who presents via the ED with a complaint of palpitations and dizziness. He came in because he thought he had been going in and out of afib since morning. When he came in, he was also noted to be hypotensive. He denied any chest pain, nausea, vomiting or diarrhea. He was having a bowel movement when he felt like he was about to pass out. Review of systems was otherwise negative. Vitals in the ED were BP of 91/52, [place] of 59 and RR of 16. HE was saturating at 100% on room air. CBC showed hb of 11.1, wbc of 20.1 and platelets of 308. Chemistry showed Cr of 3.01 and sodium of 134 as well as lactic acid of 3.7; lactic acid appears chronically elevated. Ammonia was 47 and BNP is elevated at 532.3. Urinalysis was pending. CXR showed cardiomegaly with clear lungs. HE is being admitted to be managed for afib with RVR as well as leucocytosis of unclear etiology. He did receive 2 steroid shots recently, which may be contributing to the leucocytosis. 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 Atrial fibrillation Atrial flutter with rapid ventricular response (02/02/21) Cellulitis Cirrhosis Coronary artery disease History of non-ST elevation myocardial infarction (NSTEMI) (12/29/20) Kidney disease Morbid obesity Multiple falls Nonsustained paroxysmal ventricular tachycardia (12/2020) Venous insufficiency Vertigo, central Home Medications aspirin 81 mg tablet,delayed release (Adult Low Dose Aspirin) 81 mg PO DAILY health maintenance 10/21/15 [History Last Taken 07/19/22] alprazolam 0.5 mg tablet 0.5 mg PO DAILY PRN Anxiety 04/07/19 [History Last Taken 02/01/21] cholecalciferol (vitamin D3) 125 mcg (5,000 unit) capsule 5,000 unit PO DAILY supplement 04/07/19 [History Last Taken 07/20/22] ursodiol 250 mg tablet (PAT 250) 375 mg PO BID GALLSTONES 04/07/19 [History Last Taken 07/20/22] potassium chloride 10 mEq tablet,extended release(part/cryst) 20 meq PO QODAY supplement 01/19/21 [History Last Taken 07/18/22] ascorbic acid (vitamin C) 1,000 mg tablet (Vitamin C) 1,000 mg PO DAILY SUPPLEMENT 06/19/22 [History Last Taken 07/19/22] cyclobenzaprine 10 mg tablet 10 mg PO TID PRN Spasms 06/19/22 [History Last Ta elpidio 07/20/22] melatonin 5 mg tablet 5 mg PO QHS SLEEP 06/19/22 [History Last Taken 07/19/22] metoprolol succinate 25 mg tablet,extended release 24 hr 25 mg PO 0900,2100 BP 06/19/22 [History Last Taken 07/20/22] ondansetron 4 mg disintegrating tablet 4 mg PO Q8H PRN Nausea 06/19/22 [History Last Taken 07/20/22] oxycodone 10 mg tablet 10 mg PO TID BREAKTHROUGH PAIN 06/19/22 [History Last Taken 07/20/22] sulfamethoxazole 400 mg-trimethoprim 80 mg tablet 1 tab PO DAILY ANTIBIOTIC 06/19/22 [History Last Taken 07/20/22] torsemide 100 mg tablet 100 mg PO BID FLUID 06/19/22 [History Last Taken 2] zinc acetate 50 mg (zinc) capsule 50 mg PO DAILY SUPPLEMENT 06/19/22 [History Last Taken 07/19/22] lactulose 20 gram/30 mL oral solution 20 g (30 mL) PO BID #1,500 mL 06/21/22 [Rx Last Taken 07/20/22] tacrolimus 0.5 mg capsule, immediate-release 0.5 mg PO 0900,2100 IMMUNE #60 caps 06/21/22 [Rx Last Taken 07/20/22] apixaban 5 mg tablet (Eliquis) 5 mg PO BID BLOOD THINNER 07/20/22 [History Last Taken 07/20/22] Allergy/AdvReac Type Severity Reaction Status Date / Time pravastatin [From Pravachol] Allergy Hives Verified 07/20/22 12:44 Ymrkmrg-RNS-RyA Reductase Allergy Hives Verified 07/20/22 12:44 Inhibitor [Babnwej-Rod-Ece Reductase Inhibitor] vancomycin Allergy NEEDS Verified 07/20/22 12:44 FOLLOW-UP zolpidem tartrate Allergy Hives Verified 07/20/22 12:44 [From Ambien] everolimus AdvReac Swelling Verified 07/20/22 12:44 gabapentin AdvReac NEEDS Verified 07/20/22 12:44 FOLLOW-UP Family History Mother Heart disease Father Heart disease Surgical History H/O shoulder surgery History of cardioversion (02/02/21) History of hip surgery Status post liver transplant (07/2017) Social History household members: spouse Smoking Status: Never smoker alcohol intake: current Alcohol type: other substance use type: does not use ROS Constitutional Constitutional: Denies anorexia, change in weight, chills, fever(s), malaise or weakness Eyes Eyes: Denies change in vision ENT HEENT: Denies dysphagia, headache(s) or sore throat Cardiovascular Cardiovascular: Reports lightheadedness, palpitations and rapid heart rate; Denies chest pain, dyspnea on exertion, edema, orthopnea or paroxysmal nocturnal dyspnea Respiratory/Chest Respiratory/Chest: Denies cough, dyspnea, shortness of breath at rest, shortness of breath with exertion or wheezing Gastrointestinal Gastrointestinal: Reports other Details: feels bloated ; Denies abdominal pain, constipation, nausea or vomiting Genitourinary Genitourinary: Denies burning urination or dysuria Musculoskeletal Musculoskeletal: Denies arthralgias or joint swelling Neurologic Neurologic: Reports dizziness; Denies confusion, focal weakness, headache(s) or seizures Psychiatric Psychiatric: Denies anxiety Hematologic/Lymphatic Hematologic/Lymphatic: Denies anemia Vital Signs Vital Signs Vital Signs: 07/20/22 12:44 07/20/22 12:58 07/20/22 12:58 Temperature 97.9 F Temperature Source Oral Pulse Rate 156 H Respiratory Rate 22 H Respiratory Effort Normal Non-Labored Respiratory Pattern Normal Blood Pressure 80/53 L Blood Pressure Mean 62 Pulse Ox 96 95 Oxygen Delivery Method Room Air Room Air 07/20/22 13:16 07/20/22 13:25 07/20/22 14:43 Temperature Temperature Source Pulse Rate 151 H 67 137 H Respiratory Rate 20 H 15 Respiratory Effort Respiratory Pattern Blood Pressure 107/74 116/71 Blood Pressure Mean 85 86 Pulse Ox 98 95 Oxygen Delivery Method Room Air Room Air 07/20/22 14:53 Temperature Temperature Source Pulse Rate 59 L Respiratory Rate 16 Respiratory Effort Respiratory Pattern Blood Pressure 91/52 L Blood Pressure Mean 65 Pulse Ox 100 Oxygen Delivery Method Room Air Weight Weight: 342 lb 6.046 oz Body Mass Index (BMI) 49.1 Physical Exam Const alert, oriented x3 and no apparent distress Constitutional Narrative: super morbid obesity General Appearance: cooperative HEENT normocephalic, head/scalp atraumatic, hearing grossly normal bilaterally and moist oral mucous membranes Mouth: oral and palatal mucosa normal Eyes PERRL, EOMs intact bilaterally and conjunctivae normal Neck no lymphadenopathy, supple and no JVD Resp normal respiratory effort, no retractions, no use of accessory muscles and clear to auscultation bilaterally Cardio regular rate, regular rhythm, S1 normal heart sound, S2 normal heart sound and no murmurs Cardio Narrative: had converted to normal sinus rhythm GI normal to inspection, nondistended, normoactive bowel sounds and soft to palpation GI Narrative: morbidly obese Extremity normal to inspection, full ROM and no clubbing, cyanosis or edema Neuro oriented x3, CN's II-XII intact bilaterally, moves all extremities and no focal motor deficits Sensorium / Orientation: awake and alert Motor Exam: strength 5/5 throughout Psych affect normal Results Lab / Micro Data Result Diagrams: 07/20/22 12:55 07/20/22 12:55 Labs: Laboratory Results - last 24 hr 07/20/22 12:55: WBC 20.1 H, RBC 3.78 L, Hgb 11.1 L, Hct 32.4 L, MCV 85.7, MCH 29.4, MCHC 34.3, RDW Std Deviation 44.0 H, RDW Coeff of Maciel 14.2, Plt Count 308, MPV 10.3, Immature Gran % (Auto) 1.000 H, Neut % (Auto) 92.9 H, Lymph % (Auto) 3.2 L, [place] % (Auto) 2.8, Eos % (Auto) 0.0, Baso % (Auto) 0.1, Absolute Neuts (auto) 18.7 H, Absolute Lymphs (auto) 0.64 L, Nucleated RBC % 0 07/20/22 12:55: PT 23.4 H, INR 2.1 07/20/22 12:55: Sodium 134 L, Potassium 4.2, Chloride 99, Carbon Dioxide 22.0, Anion Gap 13, BUN 35 H, Creatinine 3.01 H, Estim Creat Clear Calc 26.61, Est GFR (MDRD) Af Amer 27 L, Est GFR (MDRD) Non-Af 23 L, BUN/Creatinine Ratio 11.6, Glucose 210 H, Calcium 9.6, Total Bilirubin 0.60, Direct Bilirubin 0.24, AST 16, ALT 14 L, Alkaline Phosphatase 154 H, Troponin I High Sens 23, Total Protein 7.1, Albumin 2.2 L, Globulin 4.9 H, Lipase 42 L 07/20/22 12:55: B-Natriuretic Peptide 532.3 H 07/20/22 13:25: Ammonia 47.0 H 07/20/22 14:00: Lactic Acid 3.7 H* Radiology Impression Chest X-Ray 07/20/22 13:45 IMPRESSION: Cardiomegaly. The lungs are clear. Electronically Signed: Pelon Graham MD at 14:07 EST , Assessment & Plan Assessment/Plan (1) Near syncope: (2) Atrial flutter with rapid ventricular response: PLAN: Plan #Afib with RVR * felt like he was in RVR multiple times overnight so he came in to the ED * was in afib with RVR on admission, but was started on amiodarone drip and co nverted to normal sinus rhythm * admit to PCU * consult cardiology; patient hasnt seen a digital music instructor for a while as he says all his doctors at [facility] are no longer there * on eliquis * 2D echo * also on metoprolol * #History of FELIPE and alpha 1 antitrypsin deficiency * s/p liver transplant in 2017 * daughter concerned about ascites and would like his abdomen scanned to evaluate for ascites, as patient has been feeling bloated * ammonia level is 47. On lactulose; titrate to achieve 2-3 loose stools daily * says his liver doctor at [facility] also left, so he is now trying to find a new liver doctor * INR is 2.1 * on bactrim and tacrolimus * on ursodiol * #Mani on CKD stage 4 * Cr is 3.01, with baseline being ~ 2.65 * says he needs a new extrusion die template maker as he has not been following up with one. * will trend Cr; cant hydrate with fluids as he has acute on chronic HFpEF * will trend CR * #LActic acidosis * lactic acid is 3.7. This appears to be chronic. Will monitor and trend * #Acute on chronic HFpEF * BNP is elevated at 532. * will need to be diuresed with IV lasix * monitor Cr closely as lasix may cause Cr to be further elevated * hold torsemide #Leucocytosis * wbc is 20.1. No clear evidence of infection * may be due to recent steroid shots he says he got in his legs due to chronic pain * will trend. If wbc trends further, will work up for occult infection. * #Super morbid obesity: complicates acute care, expected recovery and prognosis DVT prophylaxis: not indicated as patient is on eliquis Code status: full code * Patient counseled extensively about different types of CODE STATUS including full code, DNR CCA and DNR CCA. * Patient elects to be full code. * Total ekdm-hz-kvos time 17 minutes. Charges/Coding Visit Charges Inpatient E&M: 69869 Init Hosp L3 Procedures Hospitalists Procedures: 30732 Advncd Care Plan 30 Min
--- NOTE | 2022-07-20 15:11 | ED.RN ---
DR ARREOLA LACTIC ACID RESULT. NO NEW ORDERS AT THIS TIME
[2022-07-20 15:12] LABS: Bacteria 0 SEEN /hpf (None Seen); Mucous, Urine 0 SEEN /hpf (<or=2+); Red Blood Cells-Urine 0 SEEN /hpf (0-5); Squamous Epithelial Cells - UA 0 SEEN /hpf (0-5); White Blood Cells 0 SEEN /hpf (0-5)
[2022-07-20 15:13] LABS: Color, Urine Yellow (Yellow); Glucose, Dipstick Normal (Normal); Ketone-Dipstick Negative (Negative); Leukocyte Esterase-Dipstick Negative /ul (Negative); Nitrite-Dipstick Negative (Negative); Occult Blood-Urine Negative /ul (Negative); Protein-Dipstick Negative (Negative); Urine Bilirubin Dipstick Negative (Negative); Urine Clarity Clear (Clear); Urine Urobilinogen Normal (Normal)
[2022-07-20 16:02] LABS: Troponin-I HS 27 pg/mL (3.0-78.0)
--- NOTE | 2022-07-20 16:54 | US_ITS ---
STUDY: ABDOMINAL ULTRASOUND - LIMITED REASON FOR VISIT: Male, 61 years old ascites. TECHNIQUE: Ultrasound evaluation of all 4 quadrants was performed with real-time and static mccracken-scale imaging. TECHNICAL QUALITY: Adequate. COMPARISON: None. FINDINGS: Realtime sonographic imaging demonstrates no evidence of ascites. Gas-filled bowel is seen throughout the abdomen. US/Abdomen Limited IMPRESSION: No visualized ascites. Electronically Signed: Germain Robin DO at 20:25 EST ,
[2022-07-20 18:17] LABS: Reflex Lactate? Y
[2022-07-20] MEDS: Furosemide 40 MG/4 ML Vial IV (18:28)
[2022-07-20] MEDS: 0.9% Saline Lock 10 ML Syringe IV (18:28)
[2022-07-20 19:51] LABS: Lactic Acid 1.6 mmol/L (0.4-1.9); Troponin-I HS 29 pg/mL (3.0-78.0)
[2022-07-20] MEDS: Tacrolimus 0.5 MG Capsule PO (21:26)
[2022-07-20] MEDS: Ursodiol 250 MG Tablet 375 MG PO (21:26)
[2022-07-20] MEDS: MELATONIN 10 MG TABLET 5 MG PO (21:26)
[2022-07-20] MEDS: APIXABAN 5 MG TABLET PO (21:26)
[2022-07-21] VITALS (26 sets, daily range): BP systolic 93–132; BP diastolic 49–98; PULSE 62–172; RESP 11–24; TEMP 36.4–36.8; O2SAT 96–100
[2022-07-21] MEDS: oxyCODONE HCl Cr 10 MG Tablet PO ×2 (04:06→15:28)
[2022-07-21] MEDS: cycloBENZAPRine HCl 10 MG Tablet PO ×2 (06:24→15:29)
[2022-07-21 06:50] LABS: Absolute Lymphocyte Count 1.12 X10^3/uL (0.83-4.51); Absolute Neutrophil Count 15.9 X10^3/uL (2.0-7.7); Basophil# 0.03 X10^3/uL; Basophil% 0.2 % (0-1); Hematocrit 34.1 % (40-54); Hemoglobin 11.6 g/dL (13.0-16.5); Lymphocyte # 1.12 X10^3/ul (0.83-4.51); Lymphocyte % 6.2 % (19-41); Mean Corpuscular Hgb 29.4 pg (27.0-32.0); Mean Corpuscular Volume 86.5 fL (80-94); Mean Platelet Vol. 10.1 fl (6.2-12.0); Monocyte# 0.86 X10^3/uL; Monocyte% 4.8 % (0-10); NRBC Flagged by Analyzer 0 % (0-5); Neutrophil # 15.92 X10^3/uL (2.7-7.7); Neutrophil % 88.3 % (47-70); Platelet Count 353 K/mm3 (150-450); RBC Distribution Width CV 14.4 % (11.6-14.6); RBC Distribution Width SD 45.1 fl (35.1-43.9); Red Blood Count 3.94 M/mm3 (4.6-6.2)
[2022-07-21 07:14] LABS: Anion Gap 10 (5-15); BUN 36 mg/dL (7-18); BUN/Creat Ratio 13.1 RATIO (10-20); Chloride 102 mmol/L (98-107); Creatinine, Serum 2.74 mg/dL (0.70-1.30); EST Glomerular Filtration Rate 25 mL/min (>60); Est Glom Filt Rate - Afr Amer 31 mL/min (>60); Estimated Creatinine Clearance 29.23 ml/min; Glucose 120 mg/dL (74-106); Potassium 3.7 mmol/L (3.5-5.1); Sodium Level 137 mmol/L (136-145)
[2022-07-21] MEDS: Tacrolimus 0.5 MG Capsule PO ×2 (07:58→21:05)
[2022-07-21] MEDS: Aspirin E.C. 81 MG Tablet PO (07:58)
[2022-07-21] MEDS: Ascorbic Acid 500 MG Tablet 1000 MG PO (07:59)
[2022-07-21] MEDS: APIXABAN 5 MG TABLET PO ×2 (07:59→21:04)
[2022-07-21] MEDS: Cholecalciferol (Vit D3) 125 MCG CAPSULE (5,000 UNITS) PO (08:00)
[2022-07-21] MEDS: Ursodiol 250 MG Tablet 375 MG PO ×2 (08:00→21:05)
[2022-07-21] MEDS: Furosemide 40 MG/4 ML Vial IV (08:01)
[2022-07-21] MEDS: Smz/Tmp Ds Tablet 0.5 TABLET PO (08:01)
--- NOTE | 2022-07-21 09:49 | CASEMGMT ---
Pt provided with a [facility] Healthcare provider directory per request for list of local PCP's and specialists. Pt states no further questions/concerns/needs for discharge. Meenakshi BURRELL CM
--- NOTE | 2022-07-21 10:26 | DS.PCM_ITS ---
Providers Date of Admission: 07/20/22 Date of Discharge: 07/21/22 Primary Care Physician: Dr. Raul Uribe MD Consultations 07/20/22 17:11 Consult: Cardiology Routine Consulting Provider: Ru Thomas Reason for Consult: afib with RVR EMERGENT Consult: No MD Notified: Yes Date Notified: 07/20/22 Time Notified: 16:53 Method of Notification: Text Reason For Visit: AFIB WITH RVR Diagnosis Discharge Diagnosis (1) Near syncope: Status: Acute Code(s): R55 - Syncope and collapse (2) Atrial flutter with rapid ventricular response: Status: Acute Code(s): I48.92 - Unspecified atrial flutter Medications at Discharge Home Medications aspirin 81 mg tablet,delayed release (Adult Low Dose Aspirin) 81 mg PO DAILY health maintenance 10/21/15 alprazolam 0.5 mg tablet 0.5 mg PO DAILY PRN Anxiety 04/07/19 cholecalciferol (vitamin D3) 125 mcg (5,000 unit) capsule 5,000 unit PO DAILY supplement 04/07/19 ursodiol 250 mg tablet (PAT 250) 375 mg PO BID GALLSTONES 04/07/19 potassium chloride 10 mEq tablet,extended release(part/cryst) 20 meq PO QODAY supplement 01/19/21 ascorbic acid (vitamin C) 1,000 mg tablet (Vitamin C) 1,000 mg PO DAILY SUPPLEMENT 06/19/22 cyclobenzaprine 10 mg tablet 10 mg PO TID PRN Spasms 06/19/22 melatonin 5 mg tablet 5 mg PO QHS SLEEP 06/19/22 metoprolol succinate 25 mg tablet,extended release 24 hr 25 mg PO 0900,2100 BP 06/19/22 ondansetron 4 mg disintegrating tablet 4 mg PO Q8H PRN Nausea 06/19/22 oxycodone 10 mg tablet 10 mg PO TID BREAKTHROUGH PAIN 06/19/22 sulfamethoxazole 400 mg-trimethoprim 80 mg tablet 1 tab PO DAILY ANTIBIOTIC 06/19/22 torsemide 100 mg tablet 100 mg PO BID FLUID 06/19/22 zinc acetate 50 mg (zinc) capsule 50 mg PO DAILY SUPPLEMENT 06/19/22 lactulose 20 gram/30 mL oral solution 20 g (30 mL) PO BID #1,500 mL 06/21/22 tacrolimus 0.5 mg capsule, immediate-release 0.5 mg PO 0900,2100 IMMUNE #60 caps 06/21/22 apixaban 5 mg tablet (Eliquis) 5 mg PO BID BLOOD THINNER 07/20/22 Hospital Course Summary of Care Provided Minutes Spent on Discharge: 35 Hospital Course: Patient is a 61-year-old gentleman with multiple comorbidities including liver transplant on account of nonalcoholic fatty liver disease as well as alpha-1 antitrypsin deficiency presented to the emergency department with generalized weakness. Found to be in A. fib with RVR admitted to a monitored bed for subsequent management. 1. A. fib with RVR ? Patient did receive amiodarone in the emergency department did convert to sinus rhythm monitored in PCU. Heart rate did remain controlled. Discharge the day after his admission patient is on beta-blockers as well as Eliquis discontinued 2. History of liver transplant ? In 2017 on account of NAFLD as well as alpha-1 antitrypsin deficiency. [facility] is on Bactrim as well as tacrolimus did continue 3. Chronic kidney disease stage IV ? Kidney function at baseline 4. Acute on chronic congestive heart failure with preserved ejection fraction -patient is on diuretics did continue 5. Class III obesity with BMI of 51 ? Weight loss advised 6. Hypertension - Blood pressure controlled, home medications continued with dose adjustment as needed 7. DVT prophylaxis ? Patient is on Eliquis Physical Exam Narrative GENERAL: cooperative HEENT: Atraumatic; normocephalic EYES; Anicteric, Normal Conjunctiva NECK; supple, normal thyroid, RESPIRATORY: Diminished to auscultation CARDIOVASCULAR: Regular S1 S2, GI: soft, normoactive bowel sounds, : No Renal angle tenderness; EXTREMITIES: No edema, no clubbing, MUSCULOSKELETAL: no muscle wasting NEURO: Awake; no lateralizing signs. SKIN: No Rash PSYCH; Flat affect Weight / BMI Weight Weight: 161.1 kg Body Mass Index (BMI) 50.9 ABG / Lab / Microbiology Data Result Diagrams: 07/21/22 06:36 07/21/22 06:36 Laboratory: Laboratory Results - last 24 hr 07/20/22 12:55: WBC 20.1 H, RBC 3.78 L, Hgb 11.1 L, Hct 32.4 L, MCV 85.7, MCH 29.4, MCHC 34.3, RDW Std Deviation 44.0 H, RDW Coeff of Maciel 14.2, Plt Count 308, MPV 10.3, Immature Gran % (Auto) 1.000 H, Neut % (Auto) 92.9 H, Lymph % (Auto) 3.2 L, [place] % (Auto) 2.8, Eos % (Auto) 0.0, Baso % (Auto) 0.1, Absolute Neuts (auto) 18.7 H, Absolute Lymphs (auto) 0.64 L, Nucleated RBC % 0 07/20/22 12:55: PT 23.4 H, INR 2.1 07/20/22 12:55: Sodium 134 L, Potassium 4.2, Chloride 99, Carbon Dioxide 22.0, Anion Gap 13, BUN 35 H, Creatinine 3.01 H, Estim Creat Clear Calc 26.61, Est GFR (MDRD) Af Amer 27 L, Est GFR (MDRD) Non-Af 23 L, BUN/Creatinine Ratio 11.6, Glucose 210 H, Calcium 9.6, Total Bilirubin 0.60, Direct Bilirubin 0.24, AST 16, ALT 14 L, Alkaline Phosphatase 154 H, Troponin I High Sens 23, Total Protein 7.1, Albumin 2.2 L, Globulin 4.9 H, Lipase 42 L 07/20/22 12:55: B-Natriuretic Peptide 532.3 H 07/20/22 13:25: Ammonia 47.0 H 07/20/22 14:00: Lactic Acid 3.7 H* 07/20/22 15:00: Urine Color Yellow, Urine Clarity Clear, Urine pH 6.0, Ur Specific Dexter 1.010, Urine Protein Negative, Urine Glucose (UA) Normal, Urine Ketones Negative, Urine Occult Blood Negative, Urine Nitrite Negative, Urine Bilirubin Negative, Urine Urobilinogen Normal, Ur Leukocyte Esterase Negative, Urine RBC 0 SEEN, Urine WBC 0 SEEN, Ur Squamous Epith Cells 0 SEEN, Urine Bacteria 0 SEEN, Urine Mucus 0 SEEN 07/20/22 15:25: Troponin I High Sens 27 07/20/22 18:48: Troponin I High Sens 29 07/20/22 18:48: Lactic Acid 1.6 07/21/22 06:36: WBC 18.0 H, RBC 3.94 L, Hgb 11.6 L, Hct 34.1 L, MCV 86.5, MCH 29.4, MCHC 34.0, RDW Std Deviation 45.1 H, RDW Coeff of Maciel 14.4, Plt Count 353, MPV 10.1, Immature Gran % (Auto) 0.500, Neut % (Auto) 88.3 H, Lymph % (Auto) 6.2 L, [place] % (Auto) 4.8, Eos % (Auto) 0.0, Baso % (Auto) 0.2, Absolute Neuts (auto) 15.9 H, Absolute Lymphs (auto) 1.12, Nucleated RBC % 0 07/21/22 06:36: Sodium 137, Potassium 3.7, Chloride 102, Carbon Dioxide 25.0, Anion Gap 10, BUN 36 H, Creatinine 2.74 H, Estim Creat Clear Calc 29.23, Est GFR (MDRD) Af Amer 31 L, Est GFR (MDRD) Non-Af 25 L, BUN/Creatinine Ratio 13.1, Glucose 120 H, Calcium 9.0 Radiography Diagnostic Testing: Radiology Impression Chest X-Ray 07/20/22 13:45 IMPRESSION: Cardiomegaly. The lungs are clear. Electronically Signed: Pelon Graham MD at 14:07 EST Reading Location ID and State: [address] [place] [address] , Service support , Abdomen Ultrasound 07/20/22 16:54 IMPRESSION: No visualized ascites. Electronically Signed: Germain Robin DO at 20:25 EST Reading Location ID and State: [address] [place] [address] Tel [phone], Service support , Meaningful Use Info Meaningful Use Diagnoses (Choose all that apply): CHF CHF ROSANNA/ARB ordered at discharge?: No Reason ROSANNA/ARB not ordered?: Worsening renal disease Documented LVEF (%): 60 Discharge Plan Admission Admit Date/Time: 07/20/22 15:19 Attending Provider: Andrew Cronin Primary Care Provider: Raul Uribe Consulting Providers: Ru Thomas ; Breanne Barkley Discharge Orders/Prescriptions Prescriptions: Continued aspirin [Adult Low Dose Aspirin] 81 MG tablet,delayed release (DR/EC) 81 mg PO DAILY Label Comments: Citelighter cholecalciferol (vitamin D3) 5,000 UNIT capsule 5,000 unit PO DAILY alprazolam 0.5 MG tablet 0.5 mg PO DAILY PRN (Reason: Anxiety) Label Comments: TAKE 1 TABLET BY MOUTH EVERY DAY NEEDED FOR ANXIETY ursodiol [PAT 250] 250 MG tablet 375 mg PO BID Label Comments: Take 1 tablet by mouth three times daily. still needs tonights dose potassium chloride 10 mEq tablet,ER particles/crystals 20 meq PO QODAY cyclobenzaprine 10 mg tablet 10 mg PO TID PRN (Reason: Spasms) Label Comments: Take 1 tablet by mouth three times daily as needed. ascorbic acid (vitamin C) [Vitamin C] 1,000 mg Tablet 1,000 mg PO DAILY zinc acetate 50 mg (zinc) Capsule 50 mg PO DAILY sulfamethoxazole-trimethoprim 400-80 mg tablet 1 tab PO DAILY Label Comments: TAKE 1 TABLET BY MOUTH DAILY torsemide 100 mg tablet 100 mg PO BID Hold Instructions: Resume on 06/24/22. metoprolol succinate 25 mg tablet extended release 24 hr 25 mg PO 0900,2100 ondansetron 4 mg tablet,disintegrating 4 mg PO Q8H PRN (Reason: Nausea) Label Comments: Take 1 tablet by mouth every 8 hours as needed. oxycodone 10 mg tablet 10 mg PO TID Label Comments: Take 1 TABLET Three times a day for 28 Days for break through pain. melatonin 5 mg Tablet 5 mg PO QHS lactulose 20 gram/30 mL solution 20 g PO BID Qty: 1500 1RF Rx Instructions: Please titrate up if needed to attain 2-3 bowel movements daily tacrolimus 0.5 mg capsule 0.5 mg PO 0900,2100 Qty: 60 0RF Label Comments: 1 capsule by mouth as directed Rx Instructions: Continue at the direction of [facility] Eliquis 5 mg tablet 5 mg PO BID Referrals / Follow Up: Raul Uribe MD [Primary Care Provider] - In 1 Week Disposition Disposition (needs filled in before D/C Order can be placed): Home, Self Care Charges/Coding Visit Charges OBSV E&M: 11122 Observation care discharge
--- NOTE | 2022-07-21 11:58 | EKG12_ITS ---
Test Reason : Blood Pressure : / mmHG Vent. Rate : 159 BPM Atrial Rate : 000 BPM P-R Int : 000 ms QRS Dur : 122 ms QT Int : 282 ms P-R-T Axes : 000 -41 011 degrees QTc Int : 458 ms Short RP Tachycardia Left axis deviation Non-specific intra-ventricular conduction delay Nonspecific ST abnormality Abnormal ECG When compared with ECG of 20-JUL-2022 13:29, MANUAL COMPARISON REQUIRED, DATA IS UNCONFIRMED Confirmed by SAHIL SHIPMAN, ROULA ([id number]), offline editor JULIO CÉSAR SOLORIO ([id number]) on 07/25/2022 9:29:46 AM Referred By: ALPHONSE Confirmed By:ROULA BAXTER MD
--- NOTE | 2022-07-21 12:08 | PN.HOSP_ITS ---
Subjective Subjective Patient is a 61-year-old gentleman with multiple comorbidities including liver transplant on account of nonalcoholic fatty liver disease as well as alpha-1 antitrypsin deficiency presented to the emergency department with generalized weakness.? Found to be in A. fib with RVR admitted to a monitored bed for subsequent management. Objective Data Objective Data Vital Signs: Vital Signs Temp Pulse Resp BP Pulse Ox O2 Del Method 97.8 F 93 18 132/98 H 100 Room Air 07/21/22 07:54 07/21/22 07:54 07/21/22 07:54 07/21/22 07:54 07/21/22 07:54 07/21/22 07:54 Oxygen Delivery Method Room Air Weight: 161.1 kg Body Mass Index (BMI) 50.9 Intake & Output: Intake and Output for Last 24 Hours 07/19/22 07/20/22 07/21/22 23:59 23:59 23:59 Intake Total 1323 / 1323 Output Total 1625 / 1625 Balance 1323 / 1073 -1625 / -1625 Lab / Micro Data Result Diagrams: 07/21/22 06:36 07/21/22 06:36 Labs: Laboratory Results - last 24 hr 07/20/22 12:55: WBC 20.1 H, RBC 3.78 L, Hgb 11.1 L, Hct 32.4 L, MCV 85.7, MCH 29.4, MCHC 34.3, RDW Std Deviation 44.0 H, RDW Coeff of Maciel 14.2, Plt Count 308, MPV 10.3, Immature Gran % (Auto) 1.000 H, Neut % (Auto) 92.9 H, Lymph % (Auto) 3.2 L, [place] % (Auto) 2.8, Eos % (Auto) 0.0, Baso % (Auto) 0.1, Absolute Neuts (auto) 18.7 H, Absolute Lymphs (auto) 0.64 L, Nucleated RBC % 0 07/20/22 12:55: PT 23.4 H, INR 2.1 07/20/22 12:55: Sodium 134 L, Potassium 4.2, Chloride 99, Carbon Dioxide 22.0, Anion Gap 13, BUN 35 H, Creatinine 3.01 H, Estim Creat Clear Calc 26.61, Est GFR (MDRD) Af Amer 27 L, Est GFR (MDRD) Non-Af 23 L, BUN/Creatinine Ratio 11.6, Glucose 210 H, Calcium 9.6, Total Bilirubin 0.60, Direct Bilirubin 0.24, AST 16, ALT 14 L, Alkaline Phosphatase 154 H, Troponin I High Sens 23, Total Protein 7. 1, Albumin 2.2 L, Globulin 4.9 H, Lipase 42 L 07/20/22 12:55: B-Natriuretic Peptide 532.3 H 07/20/22 13:25: Ammonia 47.0 H 07/20/22 14:00: Lactic Acid 3.7 H* 07/20/22 15:00: Urine Color Yellow, Urine Clarity Clear, Urine pH 6.0, Ur Specific [place] 1.010, Urine Protein Negative, Urine Glucose (UA) Normal, Urine Ketones Negative, Urine Occult Blood Negative, Urine Nitrite Negative, Urine Bilirubin Negative, Urine Urobilinogen Normal, Ur Leukocyte Esterase Negative, U rine RBC 0 SEEN, Urine WBC 0 SEEN, Ur Squamous Epith Cells 0 SEEN, Urine Bacteria 0 SEEN, Urine Mucus 0 SEEN 07/20/22 15:25: Troponin I High Sens 27 07/20/22 18:48: Troponin I High Sens 29 07/20/22 18:48: Lactic Acid 1.6 07/21/22 06:36: WBC 18.0 H, RBC 3.94 L, Hgb 11.6 L, Hct 34.1 L, MCV 86.5, MCH 29.4, MCHC 34.0, RDW Std Deviation 45.1 H, RDW Coeff of Maciel 14.4, Plt Count 353, MPV 10.1, Immature Gran % (Auto) 0.500, Neut % (Auto) 88.3 H, Lymph % (Auto) 6.2 L, [place] % (Auto) 4.8, Eos % (Auto) 0.0, Baso % (Auto) 0.2, Absolute Neuts (auto) 15.9 H, Absolute Lymphs (auto) 1.12, Nucleated RBC % 0 07/21/22 06:36: Sodium 137, Potassium 3.7, Chloride 102, Carbon Dioxide 25.0, Anion Gap 10, BUN 36 H, Creatinine 2.74 H, Estim Creat Clear Calc 29.23, Est GFR (MDRD) Af Amer 31 L, Est GFR (MDRD) Non-Af 25 L, BUN/Creatinine Ratio 13.1, Glucose 120 H, Calcium 9.0 Radiography Diagnostic Testing: Radiology Impression Chest X-Ray 07/20/22 13:45 IMPRESSION: Cardiomegaly. The lungs are clear. Electronically Signed: Pelon Graham MD at 14:07 EST , Abdomen Ultrasound 07/20/22 16:54 IMPRESSION: No visualized ascites. Electronically Signed: Germain Robin DO at 20:25 EST , Physical Exam Narrative GENERAL: cooperative HEENT: Atraumatic; normocephalic EYES; Anicteric, Normal Conjunctiva NECK; supple, normal thyroid, RESPIRATORY: Diminished to auscultation CARDIOVASCULAR: Irregular S1-S2 tachycardic GI: soft, normoactive bowel sounds, : No Renal angle tenderness; EXTREMITIES: No edema, no clubbing, MUSCULOSKELETAL: no muscle wasting NEURO: Awake; no lateralizing signs. SKIN: No Rash PSYCH; Flat affect HEENT normocephalic, head/scalp atraumatic, hearing grossly normal bilaterally and moist oral mucous membranes Eyes PERRL, EOMs intact bilaterally and conjunctivae normal Neck no lymphadenopathy, supple and no JVD Resp normal respiratory effort, no retractions, no use of accessory muscles and clear to auscultation bilaterally Cardio regular rate, regular rhythm, S1 normal heart sound, S2 normal heart sound and no murmurs Cardio Narrative: had converted to normal sinus rhythm GI normal to inspection, nondistended, normoactive bowel sounds and soft to palpation GI Narrative: morbidly obese Extremity normal to inspection, full ROM and no clubbing, cyanosis or edema Neuro oriented x3, CN's II-XII intact bilaterally, moves all extremities and no focal motor deficits Sensorium / Orientation: awake and alert Motor Exam: strength 5/5 throughout Psych affect normal Assessment & Plan Assessment/Plan (1) Near syncope: (2) Atrial flutter with rapid ventricular response: PLAN: Plan Patient is a 61-year-old gentleman with multiple comorbidities including liver transplant on account of nonalcoholic fatty liver disease as well as alpha-1 antitrypsin deficiency presented to the emergency department with generalized weakness.? Found to be in A. fib with RVR admitted to a monitored bed for subsequent management. 1.? A. fib with RVR ? Patient did receive amiodarone in the emergency department did convert to sinus rhythm monitored in PCU.? Heart rate did remain controlled.? Discharge the day after his admission patient is on beta-blockers as well as Eliquis continued. Plan was for patient to have been discharged home however he went into A. fib with RVR and did develop chest pain. Plans to discharge patient home discontinued. Patient started on Cardizem drip titrated to keep heart rate less than 100. 2.? History of liver transplant ? In 2017 on account of NAFLD as well as alpha-1 antitrypsin deficiency.? Patie nt is on Bactrim as well as tacrolimus did continue 3.? Chronic kidney disease stage IV ? Kidney function at baseline 4.? Acute on chronic congestive heart failure with preserved ejection fraction -patient is on diuretics did continue 5.? Class III obesity with BMI of 51 ? Weight loss advised 6.? Hypertension - Blood pressure controlled, home medications continued with dose adjustment as needed 7.? DVT prophylaxis ? Patient is on Eliquis Charges/Coding Visit Charges Inpatient E&M: 04033 Subs Hosp L2
[2022-07-21] MEDS: dilTIAZem 25 MG/5 ML Vial 20 MG IV BOLUS (12:40)
[2022-07-21] MEDS: 0.9% Saline Lock 10 ML Syringe IV (12:41)
--- NOTE | 2022-07-21 12:45 | CASEMGMT ---
ASHANTI BROOKE assessment: Face to Face with patient for initial transition planning/care coordination assessment. ASHANTI BROOKE introduced self and role at [facility], pt voices understanding and consents to assessment. Pt is A/Ox4 and answers all questions appropriately. Pt is lying in bed in no distress on room air.? Care providers, pharmacy,?and demographics verified. ? Presentation: Pt states multiple episodes of Afib and this one has not stopped Admitting dx: Afib RVR PCP: [facility] Specialists: Pt had multiple specialists but would like to switch to more local and healthcare directory provided. Preferred Pharmacy: [facility] Insurance: [employer] Prescription Benefit:?AARPMCR Living Will/HPOA: Pt does have LW/HPOA and is aware that they are not on file at [facility]. Pt states his , Sheba Howard, is HPOA. LNOK: Sheba Howard, /HPOA; Frida Andino, daughter Living Arrangements: Pt lives in mobile home with ramp and states no concerns at home. Pt's assists with ADL's. Transportation: Pt states drives and states no transportation concerns. DME/HHC: Pt has the following DME: cane, WW, rollator, power scooter, w/c, screener operator, sock aide, long handle shoe horn, shower chair, grab bars/rails by toilet, and is working on getting lift chair. Pt states no need for any further DME. Pt has hx of HHC and has been to [facility] in the past. Pt states no concerns with going home at discharge. Pt is on disability. Pt does not smoke cigarettes or drink ETOH. Pt voices no further concerns/needs. CM to follow for any further discharge planning/needs. Advised pt to ask for CM if any further questions/concerns/needs arise, voices understanding. Pt Goal: Home Plan[place] ASHANTI BROOKE
[2022-07-21 13:16] LABS: Troponin-I HS 20 pg/mL (3.0-78.0)
[2022-07-21 14:43] LABS: Troponin-I HS 18 pg/mL (3.0-78.0)
[2022-07-21 18:30] LABS: Troponin-I HS 21 pg/mL (3.0-78.0)
[2022-07-21] MEDS: MELATONIN 10 MG TABLET 5 MG PO (21:05)
[2022-07-22] VITALS (20 sets, daily range): BP systolic 114–129; BP diastolic 52–86; PULSE 59–192; RESP 9–21; TEMP 36.6–36.8; O2SAT 94–100
[2022-07-22] MEDS: oxyCODONE HCl Cr 10 MG Tablet PO ×2 (00:17→16:31)
[2022-07-22] MEDS: cycloBENZAPRine HCl 10 MG Tablet PO ×2 (06:07→16:32)
--- NOTE | 2022-07-22 07:29 | PCM.PN.HOSP ---
Subjective Subjective Patient back to sinus Rhythm, will dc Cardizem drip and start PO Cardizem Objective Data Objective Data Vital Signs: Vital Signs Temp Pulse Resp BP Pulse Ox O2 Del Method 98.3 F 64 11 L 114/52 L 98 Room Air 07/22/22 04:00 07/22/22 07:00 07/22/22 07:00 07/22/22 07:00 07/22/22 07:00 07/22/22 07:00 Oxygen Delivery Method Room Air Weight: 161.1 kg Body Mass Index (BMI) 50.9 Intake & Output: Intake and Output for Last 24 Hours 07/20/22 07/21/22 07/22/22 23:59 23:59 23:59 Intake Total 1323 / 1323 346.25 / 351.25 40 / 40 Output Total 2375 / 2375 350 / 350 Balance 1323 / 1073 -2028.75 / -2023.75 -310 / -310 Lab / Micro Data Result Diagrams: 07/21/22 06:36 07/21/22 06:36 Labs: Laboratory Results - last 24 hr 07/21/22 12:39: Troponin I High Sens 20 07/21/22 14:18: Troponin I High Sens 18 07/21/22 18:00: Troponin I High Sens 21 Physical Exam Narrative GENERAL: cooperative HEENT: Atraumatic; normocephalic EYES; Anicteric, Normal Conjunctiva NECK; supple, normal thyroid, RESPIRATORY: Diminished to auscultation CARDIOVASCULAR: Irregular S1-S2 tachycardic GI: soft, normoactive bowel sounds, : No Renal angle tenderness; EXTREMITIES: No edema, no clubbing, MUSCULOSKELETAL: no muscle wasting NEURO: Awake; no lateralizing signs. SKIN: No Rash PSYCH; Flat affect Assessment & Plan Assessment/Plan (1) Near syncope: (2) Atrial flutter with rapid ventricular response: PLAN: Plan Patient is a 61-year-old gentleman with multiple comorbidities including liver transplant on account of nonalcoholic fatty liver disease as well as alpha-1 antitrypsin deficiency presented to the emergency department with generalized weakness.? Found to be in A. fib with RVR admitted to a monitored bed for subsequent management. 1.? A. fib with RVR ? Patient did receive amiodarone in the emergency department did convert to sinus rhythm monitored in PCU.? Heart rate did remain controlled.? Discharge the day after his admission patient is on beta-blockers as well as Eliquis continued. Plan was for patient to have been discharged home however he went into A. fib with RVR and did develop chest pain. Plans to discharge patient home discontinued. Patient started on Cardizem drip titrated to keep heart rate less than 100. - 07/22/2022; Patient back to sinus Rhythm, will dc Cardizem drip and start PO Cardizem 2.? History of liver transplant ? In 2017 on account of NAFLD as well as alpha-1 antitrypsin deficiency.? Patient is on Bactrim as well as tacrolimus did continue 3.? Chronic kidney disease stage IV ? Kidney function at baseline 4.? Acute on chronic congestive heart failure with preserved ejection fraction -patient is on diuretics did continue 5.? Class III obesity with BMI of 51 ? Weight loss advised 6.? Hypertension - Blood pressure controlled, home medications continued with dose adjustment as needed 7.? DVT prophylaxis ? Patient is on Eliquis Charges/Coding Visit Charges Inpatient E&M: 71901 Subs Hosp L2
[2022-07-22] MEDS: dilTIAZem CD 120 MG Capsule PO (09:47)
[2022-07-22] MEDS: Aspirin E.C. 81 MG Tablet PO (09:48)
[2022-07-22] MEDS: Smz/Tmp Ds Tablet 0.5 TABLET PO (09:48)
[2022-07-22] MEDS: Tacrolimus 0.5 MG Capsule PO ×2 (09:49→21:22)
[2022-07-22] MEDS: Potassium Chloride Oral Tablet 20 MEQ PO (09:49)
[2022-07-22] MEDS: APIXABAN 5 MG TABLET PO ×2 (09:49→21:22)
[2022-07-22] MEDS: Furosemide 40 MG/4 ML Vial IV (09:50)
[2022-07-22] MEDS: Ursodiol 250 MG Tablet 375 MG PO ×2 (09:50→21:22)
[2022-07-22] MEDS: Ascorbic Acid 500 MG Tablet 1000 MG PO (09:50)
[2022-07-22] MEDS: Cholecalciferol (Vit D3) 125 MCG CAPSULE (5,000 UNITS) PO (09:50)
--- NOTE | 2022-07-22 13:28 | CON.PCM.CA_ITS ---
Assessment & Plan Assessment/Plan (1) PAF (paroxysmal atrial fibrillation): PLAN: Agree with metoprolol and diltiazem for heart rate control. Increase dose as tolerated and needed. On Eliquis for prevention of thromboembolic phenomenon . Check 2D echocardiogram with Doppler. Discussed with patient. I recommend that he see an mastic sprayer for evaluation for atrial fibrillation ablation. (2) Coronary artery disease: PLAN: History of percutaneous intervention. Stable. Continue aspirin. (3) Acute kidney injury: PLAN: As per internal medicine. Consider nephrology consult. (4) Liver transplant recipient: PLAN: As per internal medicine. HPI Consult Data Date of Consult: 07/22/22 HPI Narrative Reason for Consultation: Paroxysmal atrial fibrillation HPI Narrative: The patient has a past medical history significant for paroxysmal atrial fibrillation, coronary artery disease status post percutaneous intervention at [facility] in 2016 and history of liver transplant. For the past some time, he has been complaining of frequent palpitations. He presented to the emergency room with complaints of palpitations and lightheadedness. He was diagnosed with atrial fibrillation with rapid ventricular response. Patient complains of some chest discomfort only when he feels his heart racing. Otherwise no chest pain either at rest or with exertion. [facility] Medical History (Updated 07/22/22 @ 13:[address] Ru Thomas MD) (HFpEF) heart failure with preserved ejection fraction Acidosis, lactic Acute hypotension Anemia of chronic disease Ascites Atherosclerotic heart disease of [place] coronary artery without angina pectoris Atrial fibrillation Atrial flutter with rapid ventricular response (02/02/21) Cellulitis Chronic renal failure, stage 3 (moderate) Cirrhosis Coronary artery disease History of non-ST elevation myocardial infarction (NSTEMI) (12/29/20) Kidney disease Morbid obesity Multiple falls Nonsustained paroxysmal ventricular tachycardia (12/2020) Venous insufficiency Vertigo, central Home Medications aspirin 81 mg tablet,delayed release (Adult Low Dose Aspirin) 81 mg PO DAILY health maintenance 10/21/15 [History Last Taken 07/19/22] alprazolam 0.5 mg tablet 0.5 mg PO DAILY PRN Anxiety 04/07/19 [History Last Taken 02/01/21] cholecalciferol (vitamin D3) 125 mcg (5,000 unit) capsule 5,000 unit PO DAILY supplement 04/07/19 [History Last Taken 07/20/22] ursodiol 250 mg tablet (PAT 250) 375 mg PO BID GALLSTONES 04/07/19 [History Last Taken 07/20/22] potassium chloride 10 mEq tablet,extended release(part/cryst) 20 meq PO QODAY supplement 01/19/21 [History Last Taken 07/18/22] ascorbic acid (vitamin C) 1,000 mg tablet (Vitamin C) 1,000 mg PO DAILY [place] PPLEMENT 06/19/22 [History Last Taken 07/19/22] cyclobenzaprine 10 mg tablet 10 mg PO TID PRN Spasms 06/19/22 [History Last Taken 07/20/22] melatonin 5 mg tablet 5 mg PO QHS SLEEP 06/19/22 [History Last Taken 07/19/22] metoprolol succinate 25 mg tablet,extended release 24 hr 25 mg PO 0900,2100 BP 06/19/22 [History Last Taken 07/20/22] ondansetron 4 mg disintegrating tablet 4 mg PO Q8H PRN Nausea 06/19/22 [History Last Taken 07/20/22] oxycodone 10 mg tablet 10 mg PO TID BREAKTHROUGH PAIN 06/19/22 [History Last Taken 07/20/22] sulfamethoxazole 400 mg-trimethoprim 80 mg tablet 1 tab PO DAILY ANTIBIOTIC 06/19/22 [History Last Taken 07/20/22] torsemide 100 mg tablet 100 mg PO BID FLUID 06/19/22 [History Last Taken 07/20/22] zinc acetate 50 mg (zinc) capsule 50 mg PO DAILY SUPPLEMENT 06/19/22 [History Last Taken 07/19/22] lactulose 20 gram/30 mL oral solution 20 g (30 mL) PO BID #1,500 mL 06/21/22 [Rx Last Taken 07/20/22] tacrolimus 0.5 mg capsule, immediate-release 0.5 mg PO 0900,2100 IMMUNE #60 caps 06/21/22 [Rx Last Taken 07/20/22] apixaban 5 mg tablet (Eliquis) 5 mg PO BID BLOOD THINNER 07/20/22 [History Last Taken 07/20/22] diltiazem HCl 120 mg capsule,extended release 24 hr 120 mg PO DAILY #30 caps 07/22/22 [Rx Last Taken Unknown] Allergy/AdvReac Type Severity Reaction Status Date / Time pravastatin [From Pravachol] Allergy Hives Verified 07/20/22 12:44 Cspevsj-TWJ-DwT Reductase Allergy Hives Verified 07/20/22 12:44 Inhibitor [Kjwfdot-Khv-Ube Reductase Inhibitor] vancomycin Allergy NEEDS Verified 07/20/22 12:44 FOLLOW-UP zolpidem tartrate Allergy Hives Verified 07/20/22 12:44 [From Ambien] everolimus AdvReac Swelling Verified 07/20/22 12:44 gabapentin AdvReac NEEDS Verified 07/20/22 12:44 FOLLOW-UP Family History Mother Heart disease Father Heart disease Surgical History (Updated 07/22/22 @ 13:[address] Ru Thomas MD) H/O shoulder surgery History of cardioversion (02/02/21) History of hip surgery Liver transplant recipient Status post liver transplant (07/2017) Social History household members: spouse Smoking Status: Never smoker alcohol intake: current Alcohol type: other substance use type: does not use Physical Exam Narrative Morbidly obese. Heart sounds 1 and 2 are noted. Chest clear to auscultation bilaterally. Abdomen obese. Bowel sounds positive. Alert oriented x3. No ankle edema. Risk Stratification Risk Stratification Applicable: No Objective Data Vital Signs: Vital Signs Temp Pulse Resp BP Pulse Ox O2 Del Method 97.9 F 81 14 122/62 H 97 Room Air 07/22/22 11:00 07/22/22 11:02 07/22/22 11:02 07/22/22 11:02 07/22/22 11:02 07/22/22 11:02 Oxygen Delivery Method Room Air Weight: 355 lb 2.635 oz Body Mass Index (BMI) 50.9 Intake & Output: Intake and Output for Last 24 Hours 07/20/22 07/21/22 07/22/22 23:59 23:59 23:59 Intake Total 1323 / 1323 346.25 / 351.25 60.17 / 60.17 Output Total 2375 / 2375 1150 / 1150 Balance 1323 / 1073 -2028.75 / -2023.75 -1089.83 / -1089.83 Lab / Micro Data Result Diagrams: 07/21/22 06:36 07/21/22 06:36 Labs: Laboratory Results - last 24 hr 07/21/22 14:18: Troponin I High Sens 18 07/21/22 18:00: Troponin I High Sens 21 Micro: Microbiology 07/20/22 14:10 Blood Culture (Wb) - Anticubital Right Blood Culture - Preliminary No growth in 48 hours. 07/20/22 14:00 Blood Culture (Wb) - Left Hand Blood Culture - Preliminary No growth in 48 hours. Rhythm Strip Rhythm Strip: Sinus Rhythm Cardiology Labs/Tests Rhythm: EKG: Atrial fibrillation with rapid ventricular response on admission ECHO: Stress Test: Cardiac Cath: PCI: CT Surgery: Holter monitor: EPS: PPM: CXR: Chest CT Scan:
[2022-07-22] MEDS: MELATONIN 10 MG TABLET 5 MG PO (21:26)
[2022-07-23] VITALS (11 sets, daily range): BP systolic 130–145; BP diastolic 57–65; PULSE 70–94; RESP 15–18; TEMP 36.6–36.9; O2SAT 97–100
[2022-07-23] MEDS: oxyCODONE HCl Cr 10 MG Tablet PO ×2 (02:23→12:03)
[2022-07-23] MEDS: cycloBENZAPRine HCl 10 MG Tablet PO ×3 (02:23→17:53)
[2022-07-23] MEDS: Tacrolimus 0.5 MG Capsule PO ×2 (09:01→21:38)
[2022-07-23] MEDS: APIXABAN 5 MG TABLET PO ×2 (09:01→21:38)
[2022-07-23] MEDS: Smz/Tmp Ds Tablet 0.5 TABLET PO (09:01)
[2022-07-23] MEDS: Ursodiol 250 MG Tablet 375 MG PO ×2 (09:01→21:38)
[2022-07-23] MEDS: 0.9% Saline Lock 10 ML Syringe IV (09:01)
[2022-07-23] MEDS: dilTIAZem CD 120 MG Capsule PO (09:01)
[2022-07-23] MEDS: Aspirin E.C. 81 MG Tablet PO (09:01)
[2022-07-23] MEDS: Cholecalciferol (Vit D3) 125 MCG CAPSULE (5,000 UNITS) PO (09:01)
[2022-07-23] MEDS: Furosemide 40 MG/4 ML Vial IV (09:01)
[2022-07-23] MEDS: Lactulose 20 GM/30 ML UDC PO ×2 (09:01)
[2022-07-23] MEDS: Ascorbic Acid 500 MG Tablet 1000 MG PO (09:01)
[2022-07-23 09:33] LABS: Absolute Lymphocyte Count 1.46 X10^3/uL (0.83-4.51); Absolute Neutrophil Count 5.5 X10^3/uL (2.0-7.7); Basophil# 0.03 X10^3/uL; Basophil% 0.4 % (0-1); Eosinophil# 0.13 X10^3/uL; Eosinophils% 1.7 % (0-5); Hematocrit 31.2 % (40-54); Hemoglobin 10.8 g/dL (13.0-16.5); Lymphocyte # 1.46 X10^3/ul (0.83-4.51); Lymphocyte % 18.9 % (19-41); Mean Corp Hgb Conc 34.6 g/dL (32-36); Mean Corpuscular Hgb 30.1 pg (27.0-32.0); Mean Corpuscular Volume 86.9 fL (80-94); Mean Platelet Vol. 10.1 fl (6.2-12.0); Monocyte# 0.56 X10^3/uL; Monocyte% 7.2 % (0-10); NRBC Flagged by Analyzer 0 % (0-5); Neutrophil # 5.48 X10^3/uL (2.7-7.7); Neutrophil % 70.9 % (47-70); Platelet Count 311 K/mm3 (150-450); RBC Distribution Width CV 14.6 % (11.6-14.6); RBC Distribution Width SD 45.7 fl (35.1-43.9); Red Blood Count 3.59 M/mm3 (4.6-6.2); White Blood Count 7.7 K/mm3 (4.4-11.0)
[2022-07-23 09:58] LABS: ALB/GLOB Ratio 0.5 RATIO (0.9-2.4); AST(SGOT) 10 U/L (15-37); Alanine Aminotransfer ALT/SGPT 14 U/L (16-61); Albumin, Serum 2.2 g/dL (3.2-5.0); Alkaline Phosphatase 142 U/L (45-117); Anion Gap 9 (5-15); BUN 33 mg/dL (7-18); BUN/Creat Ratio 15.2 RATIO (10-20); Calcium,Total 8.8 mg/dL (8.5-10.1); Chloride 106 mmol/L (98-107); Creatinine, Serum 2.17 mg/dL (0.70-1.30); EST Glomerular Filtration Rate 33 mL/min (>60); Est Glom Filt Rate - Afr Amer 40 mL/min (>60); Estimated Creatinine Clearance 36.91 ml/min; Globulin 4.3 g/dL (2.2-4.2); Glucose 140 mg/dL (74-106); Potassium 3.7 mmol/L (3.5-5.1); Protein, Total 6.5 g/dL (6.4-8.2); Sodium Level 140 mmol/L (136-145)
--- NOTE | 2022-07-23 10:04 | CASEMGMT ---
Addendum entered by Kaley Riddle 07/23/22 10:17: SW notified patient and his that TCU is able to accept him. SW explained that patient will stay here until his insurance approves him. This could be a day or so. They thanked TONY. Kaley SWEENEY Original Note: TONY reviewed chart and noted therapy is now recommending SNF. SW met with patient and his , Sheba. SW introduced self and role at [facility]. They both confirmed patient needs to go somewhere for rehab. SW provided a list of correction facility providers including quality and resource use data and consistent with patient?s preferred geographic region, medical needs, and insurance network were provided from the [facility] [facility]. They did tell SW they would prefer [facility]. SW let them know SW will check with TCU and get back to them. SW contacted [facility] in TCU and they are able to accept patient. [facility] will start the pre-cert. TONY will notify patient and his . Plan: d/c to [facility] pending insurance approval. Kaley SWEENEY
[2022-07-23 13:26] LABS: Magnesium 2.1 mg/dL (1.6-2.6)
--- NOTE | 2022-07-23 14:18 | PN.HOSP_ITS ---
Subjective Subjective Follow-up on A. fib with RVR: Patient was seen and examined. He had multiple complaints-he did not want to be on a cardiac diet as an option. He also wanted his pain regimen changed as he has severe pain in his legs. Patient was said to have gone into brief episode of tachycardia, SVT when he was being moved around. He admitted to some chest discomfort. Denied any dizziness or chest pain at time of being seen Objective Data Objective Data Vital Signs: Vital Signs Temp Pulse Resp BP Pulse Ox O2 Del Method 97.8 F 80 16 130/64 H 99 Room Air 07/23/22 09:00 07/23/22 09:00 07/23/22 09:00 07/23/22 09:00 07/23/22 09:00 07/23/22 09:00 Oxygen Delivery Method Room Air Weight: 161.1 kg Body Mass Index (BMI) 50.9 Intake & Output: Intake and Output for Last 24 Hours 07/21/22 07/22/22 07/23/22 23:59 23:59 23:59 Intake Total 346.25 / 351.25 460.17 / 460.17 360 / 360 Output Total 2375 / 2375 1350 / 1350 600 / 600 Balance -2028.75 / -2023.75 -889.83 / -889.83 -240 / -240 Lab / Micro Data Result Diagrams: 07/23/22 09:00 07/23/22 09:00 Labs: Laboratory Results - last 24 hr 07/23/22 09:00: WBC 7.7, RBC 3.59 L, Hgb 10.8 L, Hct 31.2 L, MCV 86.9, MCH 30.1, MCHC 34.6, RDW Std Deviation 45.7 H, RDW Coeff of Maciel 14.6, Plt Count 311, MPV 10.1, Immature Gran % (Auto) 0.900, Neut % (Auto) 70.9 H, Lymph % (Auto) 18.9 L, [place] % (Auto) 7.2, Eos % (Auto) 1.7, Baso % (Auto) 0.4, Absolute Neuts (auto) 5.5, Absolute Lymphs (auto) 1.46, Nucleated RBC % 0 07/23/22 09:00: Sodium 140, Potassium 3.7, Chloride 106, Carbon Dioxide 25.0, Anion Gap 9, BUN 33 H, Creatinine 2.17 H, Estim Creat Clear Calc 36.91, Est GFR (MDRD) Af Amer 40 L, Est GFR (MDRD) Non-Af 33 L, BUN/Creatinine Ratio 15.2, Glucose 140 H, Calcium 8.8, Total Bilirubin 0.50, AST 10 L, ALT 14 L, Alkaline Phosphatase 142 H, Total Protein 6.5, Albumin 2.2 L, Globulin 4.3 H, Albumin/Globulin Ratio 0.5 L 07/23/22 09:00: Magnesium 2.1 Micro: Microbiology 07/20/22 14:10 Blood Culture (Wb) - Anticubital Right Blood Culture - Preliminary No growth in 48 hours. 07/20/22 14:00 Blood Culture (Wb) - Left Hand Blood Culture - Preliminary No growth in 48 hours. Rhythm Strip Rhythm Strip: Sinus Rhythm Physical Exam Narrative Physical exam: General: Alert, Oriented x3, Cooperative, morbidly obese, lying in bed HEENT: Atraumatic Oral: Moist Mucosa Neck: Supple Lungs:diminished to auscultation Cardiovascular: HS I+II, regular, no murmurs Abdomen: Bowel Sounds Present, Soft, Non Tender Extremities: No edema, tenderness on palpating both feet Skin: No rashes, No breakdown Neurological: Grossly intact Psych/Mental Status: Appropriate Assessment & Plan Assessment/Plan (1) Near syncope: (2) Atrial flutter with rapid ventricular response: PLAN: Plan 1.A. fib with RVR, patient is mostly normal sinus rhythm except for episode of supraventricular tachycardia this mornin with activity Magnesium is 2.1, continue on Cardizem, Eliquis 2.?History of liver transplant for NAFLD and alpha-1 antitrypsin deficiency Continue on Bactrim and tacrolimus 3.?Chronic kidney disease stage IV, creatinine appears to be at baseline We will continue to trend 4. Acute on chronic congestive heart failure with preserved ejection fraction Continue IV Lasix, will switch to p.o. Lasix in a.m. 5. Morbid obesity, BMI 51, left outpatient recommend 6. DVT prophylaxis?on apixaban Charges/Coding Visit Charges Inpatient E&M: 35233 Subs Hosp L3
[2022-07-23] MEDS: oxyCODONE 5 MG Tablet 10 MG PO (17:53)
--- NOTE | 2022-07-23 20:29 | EKG12_ITS ---
Test Reason : TACHYCARDIA Blood Pressure : / mmHG Vent. Rate : 175 BPM Atrial Rate : 000 BPM P-R Int : 000 ms QRS Dur : 118 ms QT Int : 278 ms P-R-T Axes : 000 -43 047 degrees QTc Int : 474 ms Supraventricular tachycardia Left axis deviation Low voltage QRS Possible Anterolateral infarct , age undetermined Abnormal ECG When compared with ECG of 21-JUL-2022 12:06, MANUAL COMPARISON REQUIRED, DATA IS UNCONFIRMED Confirmed by SAHIL SHIPMAN, ROULA ([id number]), continuity editor JULIO CÉSAR SOLORIO ([id number]) on 07/25/2022 9:27:25 AM Referred By: Confirmed By:ROULA BAXTER MD
[2022-07-23] MEDS: MELATONIN 10 MG TABLET 5 MG PO (21:38)
[2022-07-23] MEDS: Metoprolol Tartrate 50 MG Tablet PO (21:38)
[2022-07-24] VITALS (15 sets, daily range): BP systolic 98–142; BP diastolic 46–68; PULSE 62–77; RESP 16–18; TEMP 36.4–36.6; O2SAT 97–100
[2022-07-24] MEDS: oxyCODONE 5 MG Tablet 10 MG PO ×4 (00:08→20:20)
[2022-07-24] MEDS: cycloBENZAPRine HCl 10 MG Tablet PO ×3 (00:08→17:31)
[2022-07-24 05:28] LABS: Absolute Lymphocyte Count 1.33 X10^3/uL (0.83-4.51); Absolute Neutrophil Count 6.8 X10^3/uL (2.0-7.7); Basophil# 0.04 X10^3/uL; Basophil% 0.4 % (0-1); Eosinophil# 0.25 X10^3/uL; Eosinophils% 2.6 % (0-5); Hematocrit 32.3 % (40-54); Hemoglobin 10.7 g/dL (13.0-16.5); Lymphocyte # 1.33 X10^3/ul (0.83-4.51); Mean Corp Hgb Conc 33.1 g/dL (32-36); Mean Corpuscular Hgb 29.6 pg (27.0-32.0); Mean Corpuscular Volume 89.2 fL (80-94); Monocyte# 0.92 X10^3/uL; Monocyte% 9.7 % (0-10); NRBC Flagged by Analyzer 0 % (0-5); Neutrophil # 6.84 X10^3/uL (2.7-7.7); Platelet Count 332 K/mm3 (150-450); RBC Distribution Width CV 14.6 % (11.6-14.6); RBC Distribution Width SD 47.5 fl (35.1-43.9); Red Blood Count 3.62 M/mm3 (4.6-6.2); White Blood Count 9.5 K/mm3 (4.4-11.0)
[2022-07-24 06:03] LABS: ALB/GLOB Ratio 0.5 RATIO (0.9-2.4); AST(SGOT) 27 U/L (15-37); Alanine Aminotransfer ALT/SGPT 20 U/L (16-61); Albumin, Serum 2.1 g/dL (3.2-5.0); Alkaline Phosphatase 158 U/L (45-117); Anion Gap 6 (5-15); BUN 32 mg/dL (7-18); BUN/Creat Ratio 15.7 RATIO (10-20); Calcium,Total 8.6 mg/dL (8.5-10.1); Chloride 104 mmol/L (98-107); Creatinine, Serum 2.04 mg/dL (0.70-1.30); EST Glomerular Filtration Rate 35 mL/min (>60); Est Glom Filt Rate - Afr Amer 43 mL/min (>60); Estimated Creatinine Clearance 39.26 ml/min; Globulin 4.3 g/dL (2.2-4.2); Glucose 128 mg/dL (74-106); Potassium 3.7 mmol/L (3.5-5.1); Protein, Total 6.4 g/dL (6.4-8.2); Sodium Level 137 mmol/L (136-145)
[2022-07-24] MEDS: Lactulose 20 GM/30 ML UDC PO (09:20)
[2022-07-24] MEDS: Smz/Tmp Ds Tablet 0.5 TABLET PO (09:21)
[2022-07-24] MEDS: APIXABAN 5 MG TABLET PO ×2 (09:21→22:20)
[2022-07-24] MEDS: Ascorbic Acid 500 MG Tablet 1000 MG PO (09:21)
[2022-07-24] MEDS: Ursodiol 250 MG Tablet 375 MG PO ×2 (09:21→22:21)
[2022-07-24] MEDS: Aspirin E.C. 81 MG Tablet PO (09:21)
[2022-07-24] MEDS: Cholecalciferol (Vit D3) 125 MCG CAPSULE (5,000 UNITS) PO (09:21)
[2022-07-24] MEDS: Tacrolimus 0.5 MG Capsule PO ×2 (09:21→22:20)
[2022-07-24] MEDS: dilTIAZem CD 120 MG Capsule PO (09:22)
[2022-07-24] MEDS: Furosemide 40 MG/4 ML Vial IV (09:22)
[2022-07-24] MEDS: 0.9% Saline Lock 10 ML Syringe IV (09:22)
[2022-07-24] MEDS: Potassium Chloride Oral Tablet 20 MEQ PO (09:22)
--- NOTE | 2022-07-24 09:38 | PCM.PN.HOSP ---
Subjective Subjective Follow-up on A. fib with RVR: Patient was seen and examined. He had several episodes of SVT of yesterday. This resolved with metoprolol 50 mg x 1. Discussed with cardiology, patient to be placed on metoprolol 50 mg twice daily. Objective Data Objective Data Vital Signs: Vital Signs Temp Pulse Resp BP Pulse Ox O2 Del Method 97.7 F L 65 16 127/46 H 99 Room Air 07/24/22 09:15 07/24/22 09:15 07/24/22 09:15 07/24/22 09:15 07/24/22 09:15 07/24/22 09:15 Oxygen Delivery Method Room Air Weight: 161.1 kg Body Mass Index (BMI) 50.9 Intake & Output: Intake and Output for Last 24 Hours 07/22/22 07/23/22 07/24/22 23:59 23:59 23:59 Intake Total 460.17 / 460.17 840 / 840 Output Total 1350 / 1350 750 / 1050 300 / 300 Balance -889.83 / -889.83 90 / -210 -300 / -300 Lab / Micro Data Result Diagrams: 07/24/22 04:13 07/24/22 04:13 Labs: Laboratory Results - last 24 hr 07/23/22 09:00: Sodium 140, Potassium 3.7, Chloride 106, Carbon Dioxide 25.0, Anion Gap 9, BUN 33 H, Creatinine 2.17 H, Estim Creat Clear Calc 36.91, Est GFR (MDRD) Af Amer 40 L, Est GFR (MDRD) Non-Af 33 L, BUN/Creatinine Ratio 15.2, Glucose 140 H, Calcium 8.8, Total Bilirubin 0.50, AST 10 L, ALT 14 L, Alkaline Phosphatase 142 H, Total Protein 6.5, Albumin 2.2 L, Globulin 4.3 H, Albumin/Globulin Ratio 0.5 L 07/23/22 09:00: Magnesium 2.1 07/24/22 04:13: WBC 9.5, RBC 3.62 L, Hgb 10.7 L, Hct 32.3 L, MCV 89.2, MCH 29.6, MCHC 33.1, RDW Std Deviation 47.5 H, RDW Coeff of Maciel 14.6, Plt Count 332, MPV 10.0, Immature Gran % (Auto) 1.300 H, Neut % (Auto) 72.0 H, Lymph % (Auto) 14.0 L, [place] % (Auto) 9.7, Eos % (Auto) 2.6, Baso % (Auto) 0.4, Absolute Neuts (auto) 6.8, Absolute Lymphs (auto) 1.33, Nucleated RBC % 0 07/24/22 04:13: Sodium 137, Potassium 3.7, Chloride 104, Carbon Dioxide 27.0, Anion Gap 6, BUN 32 H, Creatinine 2.04 H, Estim Creat Clear Calc 39.26, Est GFR (MDRD) Af Amer 43 L, Est GFR (MDRD) Non-Af 35 L, BUN/Creatinine Ratio 15.7, Glucose 128 H, Calcium 8.6, Total Bilirubin 0.70, AST 27, ALT 20, Alkaline Phosphatase 158 H, Total Protein 6.4, Albumin 2.1 L, Globulin 4.3 H, Albumin/Globulin Ratio 0.5 L Micro: Microbiology 07/20/22 14:10 Blood Culture (Wb) - Anticubital Right Blood Culture - Preliminary No growth in 48 hours. 07/20/22 14:00 Blood Culture (Wb) - Left Hand Blood Culture - Preliminary No growth in 48 hours. Rhythm Strip Rhythm Strip: Sinus Rhythm Physical Exam Narrative Physical exam: General: Alert, Oriented x3, Cooperative, morbidly obese, lying in bed HEENT: Atraumatic Oral: Moist Mucosa Neck: Supple Lungs:diminished to auscultation Cardiovascular: HS I+II, regular, no murmurs Abdomen: Bowel Sounds Present, Soft, Non Tender Extremities: No edema, tenderness on palpating both feet Skin: No rashes, No breakdown Neurological: Grossly intact Psych/Mental Status: Appropriate Assessment & Plan Assessment/Plan (1) Near syncope: (2) Atrial flutter with rapid ventricular response: PLAN: Plan 1.A. fib with RVR, now in NSR, Continue on Cardizem and metoprolol 50 mg BID, Eliquis 2.?History of liver transplant for NAFLD and alpha-1 antitrypsin deficiency Continue on Bactrim and tacrolimus 3.?Chronic kidney disease stage IV, creatinine appears to be at baseline We will continue to trend 4. Acute on chronic congestive heart failure with preserved ejection fraction Continue IV Lasix, will switch to p.o. Lasix in a.m. 5. Morbid obesity, BMI 51, lifestyle modification recommended 6. DVT prophylaxis?on apixaban Charges/Coding Visit Charges Inpatient E&M: 74918 Subs Hosp L3
[2022-07-24] MEDS: Metoprolol Tartrate 50 MG Tablet PO ×2 (11:51→22:21)
--- NOTE | 2022-07-24 12:01 | CASEMGMT ---
TONY received notification that patient was approved for TCU. TONY will notify patient, RN, assistant corporate secretary, and physician. Plan: d/c to [facility] TCU under skilled level of care. Kaley SWEENEY
[2022-07-24] MEDS: MELATONIN 10 MG TABLET 5 MG PO (22:20)
[2022-07-25] VITALS (8 sets, daily range): BP systolic 115–133; BP diastolic 60–73; PULSE 58–71; RESP 18; TEMP 36.2–36.6; O2SAT 100
[2022-07-25] MEDS: cycloBENZAPRine HCl 10 MG Tablet PO ×3 (00:27→11:48)
[2022-07-25] MEDS: oxyCODONE 5 MG Tablet 10 MG PO ×2 (03:11→09:26)
[2022-07-25 05:44] LABS: Absolute Lymphocyte Count 1.49 X10^3/uL (0.83-4.51); Absolute Neutrophil Count 6.5 X10^3/uL (2.0-7.7); Basophil# 0.04 X10^3/uL; Basophil% 0.4 % (0-1); Eosinophil# 0.36 X10^3/uL; Eosinophils% 3.9 % (0-5); Hematocrit 30.5 % (40-54); Hemoglobin 9.9 g/dL (13.0-16.5); Lymphocyte # 1.49 X10^3/ul (0.83-4.51); Lymphocyte % 16.1 % (19-41); Mean Corp Hgb Conc 32.5 g/dL (32-36); Mean Corpuscular Hgb 29.6 pg (27.0-32.0); Mean Corpuscular Volume 91.3 fL (80-94); Mean Platelet Vol. 10.1 fl (6.2-12.0); Monocyte# 0.75 X10^3/uL; Monocyte% 8.1 % (0-10); NRBC Flagged by Analyzer 0 % (0-5); Neutrophil # 6.53 X10^3/uL (2.7-7.7); Neutrophil % 70.8 % (47-70); Platelet Count 296 K/mm3 (150-450); RBC Distribution Width CV 14.6 % (11.6-14.6); RBC Distribution Width SD 49.1 fl (35.1-43.9); Red Blood Count 3.34 M/mm3 (4.6-6.2); White Blood Count 9.2 K/mm3 (4.4-11.0)
[2022-07-25 06:35] LABS: ALB/GLOB Ratio 0.4 RATIO (0.9-2.4); AST(SGOT) 15 U/L (15-37); Alanine Aminotransfer ALT/SGPT 18 U/L (16-61); Albumin, Serum 1.7 g/dL (3.2-5.0); Alkaline Phosphatase 142 U/L (45-117); Anion Gap 8 (5-15); BUN 31 mg/dL (7-18); BUN/Creat Ratio 17.4 RATIO (10-20); Calcium,Total 7.8 mg/dL (8.5-10.1); Chloride 105 mmol/L (98-107); Creatinine, Serum 1.78 mg/dL (0.70-1.30); EST Glomerular Filtration Rate 41 mL/min (>60); Est Glom Filt Rate - Afr Amer 50 mL/min (>60); Glucose 143 mg/dL (74-106); Potassium 3.7 mmol/L (3.5-5.1); Protein, Total 5.7 g/dL (6.4-8.2); Sodium Level 136 mmol/L (136-145)
--- NOTE | 2022-07-25 07:18 | TREXTCAR_ITS ---
Diet Diet Order/Speech Therapy: 07/23/22 14:19 Diet: Regular - General Dietary Modifications:: Sodium Restricted Is pt able to select menu?: Yes Routine Orders/Code Status Suppository Type: Dulcolax 10mg Suppository Frequency: Daily PRN Keep PO Greater than or Equal to (%): 94 Routine Lab Work: CBC (within 3 days) and - (CMP within 3 days) Code Status: Full Code Therapies Weight Bearing: Weight bearing as tolerated Problem/Diagnosis (1) Near syncope: Status: Acute Code(s): R55 - Syncope and collapse (2) Atrial flutter with rapid ventricular response: Status: Acute Code(s): I48.92 - Unspecified atrial flutter Comment: DCCV in ER 02/02/21 (3) Osteoarthritis of ankle and foot: Status: Acute Code(s): M19.079 - Primary osteoarthritis, unspecified ankle and foot Plan 1.A. fib with RVR, now in NSR, 2.?History of liver transplant for NAFLD and alpha-1 antitrypsin deficiency 3.?Chronic kidney disease stage IV 4. Acute on chronic congestive heart failure with preserved ejection fraction 5. Morbid obesity Allergies/Procedures Done in Hospital Allergies pravastatin [From Pravachol] Allergy (Verified 07/20/22 12:44) Hives Jxgthla-WVJ-XoB Reductase Inhibitor [Otvodpn-Gmp-Lmy Reductase Inhibitor] Allergy (Verified 07/20/22 12:44) Hives vancomycin Allergy (Verified 07/20/22 12:44) NEEDS FOLLOW-UP zolpidem tartrate [From Ambien] Allergy (Verified 07/20/22 12:44) Hives from the controlled or slow-release ambien. does not have any reactions to regular ambien. everolimus Adverse Reaction (Verified 07/20/22 12:44) Swelling gabapentin Adverse Reaction (Verified 07/20/22 12:44) NEEDS FOLLOW-UP Procedures: None Type of Care/Length of Stay Estimated LOS: Convalescent Care Less Than 30 days Type of Care Needed: Skilled Rehab Potential: Good Prognosis: Good Additional Orders/Day of Discharge Day of Discharge: 07/25/22 Dietary and Speech Recommendations Dietitian Recommendations/Changes: Continue cardiac/sodium-restricted diet; monitor need to restrict protein; fluid restriction as per physician. ONS not indicated. Discharge Plan Admission Admit Date/Time: 07/21/22 15:03 Primary Reason for Your Visit: A. fib with RVR Attending Provider: Devora Loyola Primary Care Provider: Raul Uribe Consulting Providers: Ru Thomas ; Breanne Barkley ; Andrew Cronin Instructions Additional Instructions / Restrictions: Repeat CBCD and CMP within 3 days Daily weights per CHF protocol. Follow-up with Dr. Raheem Flaherty ([phone]) within 1 week Discharge Orders/Prescriptions Prescriptions: New diltiazem HCl 120 mg Capsule,Extended Release 24hr 120 mg PO DAILY Qty: 30 0RF metoprolol tartrate 50 mg Tablet 50 mg PO BID Qty: 0 0RF furosemide [Lasix] 40 mg tablet 40 mg PO BID 30 Days Qty: 60 0RF Continued aspirin [Adult Low Dose Aspirin] 81 MG tablet,delayed release (DR/EC) 81 mg PO DAILY Label Comments: [facility] cholecalciferol (vitamin D3) 5,000 UNIT capsule 5,000 unit PO DAILY ursodiol [PAT 250] 250 MG tablet 375 mg PO BID Label Comments: Take 1 tablet by mouth three times daily. still needs tonights dose potassium chloride 10 mEq tablet,ER particles/crystals 20 meq PO QODAY cyclobenzaprine 10 mg tablet 10 mg PO TID PRN (Reason: Spasms) Label Comments: Take 1 tablet by mouth three times daily as needed. ascorbic acid (vitamin C) [Vitamin C] 1,000 mg Tablet 1,000 mg PO DAILY zinc acetate 50 mg (zinc) Capsule 50 mg PO DAILY sulfamethoxazole-trimethoprim 400-80 mg tablet 1 tab PO DAILY Label Comments: TAKE 1 TABLET BY MOUTH DAILY ondansetron 4 mg tablet,disintegrating 4 mg PO Q8H PRN (Reason: Nausea) Label Comments: Take 1 tablet by mouth every 8 hours as needed. melatonin 5 mg Tablet 5 mg PO QHS lactulose 20 gram/30 mL solution 20 g PO BID Qty: 1500 1RF Rx Instructions: Please titrate up if needed to attain 2-3 bowel movements daily tacrolimus 0.5 mg capsule 0.5 mg PO 0900,2100 Qty: 60 0RF Label Comments: 1 capsule by mouth as directed Rx Instructions: Continue at the direction of [facility] Eliquis 5 mg tablet 5 mg PO BID alprazolam 0.5 MG tablet 0.5 mg PO DAILY PRN (Reason: Anxiety) 3 Days Qty: 3 0RF oxycodone 10 mg tablet 10 mg PO TID 3 Days Qty: 9 0RF Discontinued torsemide 100 mg tablet 100 mg PO BID Hold Instructions: Resume on 06/24/22. metoprolol succinate 25 mg tablet extended release 24 hr 25 mg PO 0900,2100 Referrals / Follow Up: Ru Thomas MD [Med Staff - Active Staff] - Within 2 Weeks Raul Uribe MD [Primary Care Provider] - In 1 Week Disposition Disposition (needs filled in before D/C Order can be placed): Home, Self Care
--- NOTE | 2022-07-25 08:02 | PCM.DC.SUM ---
Providers Date of Admission: 07/21/22 Date of Discharge: 07/25/22 Primary Care Physician: Dr. Raul Uribe MD Consultations 07/20/22 17:11 Consult: Cardiology Routine Consulting Provider: Ru Thomas Reason for Consult: afib with RVR EMERGENT Consult: No MD Notified: Yes Date Notified: 07/20/22 Time Notified: 16:53 Method of Notification: Text Reason For Visit: AFIB WITH RVR Diagnosis Discharge Diagnosis (1) Near syncope: Status: Acute Code(s): R55 - Syncope and collapse (2) Atrial flutter with rapid ventricular response: Status: Acute Code(s): I48.92 - Unspecified atrial flutter (3) Osteoarthritis of ankle and foot: Status: Acute Code(s): M19.079 - Primary osteoarthritis, unspecified ankle and foot Plan 1.A. fib with RVR, now in NSR, 2.?History of liver transplant for NAFLD and alpha-1 antitrypsin deficiency 3.?Chronic kidney disease stage IV 4. Acute on chronic congestive heart failure with preserved ejection fraction 5. Morbid obesity Medications at Discharge Home Medications aspirin 81 mg tablet,delayed release (Adult Low Dose Aspirin) 81 mg PO DAILY health maintenance 10/21/15 cholecalciferol (vitamin D3) 125 mcg (5,000 unit) capsule 5,000 unit PO DAILY supplement 04/07/19 ursodiol 250 mg tablet (PAT 250) 375 mg PO BID GALLSTONES 04/07/19 potassium chloride 10 mEq tablet,extended release(part/cryst) 20 meq PO QODAY supplement 01/19/21 ascorbic acid (vitamin C) 1,000 mg tablet (Vitamin C) 1,000 mg PO DAILY SUPPLEMENT 06/19/22 cyclobenzaprine 10 mg tablet 10 mg PO TID PRN Spasms 06/19/22 melatonin 5 mg tablet 5 mg PO QHS SLEEP 06/19/22 ondansetron 4 mg disintegrating tablet 4 mg PO Q8H PRN Nausea 06/19/22 sulfamethoxazole 400 mg-trimethoprim 80 mg tablet 1 tab PO DAILY ANTIBIOTIC 06/19/22 zinc acetate 50 mg (zinc) capsule 50 mg PO DAILY SUPPLEMENT 06/19/22 lactulose 20 gram/30 mL oral solution 20 g (30 mL) PO BID #1,500 mL 10/20/22 tacrolimus 0.5 mg capsule, immediate-release 0.5 mg PO 0900,2100 IMMUNE #60 caps 06/21/22 apixaban 5 mg tablet (Eliquis) 5 mg PO BID BLOOD THINNER 07/20/22 diltiazem HCl 120 mg capsule,extended release 24 hr 120 mg PO DAILY #30 caps 07/22/22 alprazolam 0.5 mg tablet 0.5 mg PO DAILY PRN Anxiety 3 days #3 tabs 07/25/22 furosemide 40 mg tablet (Lasix) 40 mg PO BID 30 days #60 tabs 07/25/22 metoprolol tartrate 50 mg tablet 50 mg PO BID #0 tabs 07/25/22 oxycodone 10 mg tablet 10 mg PO TID BREAKTHROUGH PAIN 3 days #9 tabs 07/25/22 Hospital Course Operations None Procedures None Summary of Care Provided Minutes Spent on Discharge: 35 Hospital Course: 61-year-old with multiple comorbidities significant for CAD, atrial flutter, morbid obesity who comes in with complaints of palpitations and dizziness. Patient has stated that he felt he was going in and out of A. fib on the morning of admission. This started about 2 hours prior to admission. His family gave him an extra dose of metoprolol 25 mg in the morning of admission. In the emergency room, his blood pressure was 80/53, heart rate was 149. Patient did receive cc fluid bolus. He was given 150 mg of amiodarone and he converted into normal sinus rhythm. Patient went again into A. fib and received another dose of amiodarone and his heart rate improved to bradycardia. Cardiology recommended continuation of amiodarone and observation in the hospital. Patient's BNP was 532. Patient was admitted today progressive care unit and also managed as acute kidney injury on CKD stage IV. Patient was continued on IV Lasix with improvement. His creatinine also improved. He complained of pain in his feet. He recently had injections to the feet by his envelope sealer operator. Patient states he has history of severe osteoarthritis and rheumatoid arthritis. He typically gets shots in his feet. He was unable to ambulate. He was seen by PT and needs OT and skilled [facility]. During this hospital stay, patient had episodes of SVTs, he was kept on Cardizem and metoprolol 50 mg twice a day. He would need to follow-up with cardiology within 2 weeks. He will need referral to EP. He was strongly advised to follow-up with his envelope sealer operator within a week. Physical Exam Narrative Physical exam: General: Alert, Oriented x3, Cooperative, morbidly obese, lying in bed HEENT: Atraumatic Oral: Moist Mucosa Neck: Supple Lungs:diminished to auscultation Cardiovascular: HS I+II, regular, no murmurs Abdomen: Bowel Sounds Present, Soft, Non Tender Extremities: No edema, tenderness on palpating both feet Skin: No rashes, No breakdown Neurological: Grossly intact Psych/Mental Status: Appropriate Weight / BMI Weight Weight: 161.1 kg Body Mass Index (BMI) 50.9 ABG / Lab / Microbiology Data Result Diagrams: 07/25/22 05:36 07/25/22 05:36 Laboratory: Laboratory Results - last 24 hr 07/25/22 05:36: WBC 9.2, RBC 3.34 L, Hgb 9.9 L, Hct 30.5 L, MCV 91.3, MCH 29.6, MCHC 32.5, RDW Std Deviation 49.1 H, RDW Coeff of Maciel 14.6, Plt Count 296, MPV 10.1, Immature Gran % (Auto) 0.700, Neut % (Auto) 70.8 H, Lymph % (Auto) 16.1 L, [place] % (Auto) 8.1, Eos % (Auto) 3.9, Baso % (Auto) 0.4, Absolute Neuts (auto) 6.5, Absolute Lymphs (auto) 1.49, Nucleated RBC % 0 07/25/22 05:36: Sodium 136, Potassium 3.7, Chloride 105, Carbon Dioxide 23.0, Anion Gap 8, BUN 31 H, Creatinine 1.78 H, Estim Creat Clear Calc 45.00, Est GFR (MDRD) Af Amer 50 L, Est GFR (MDRD) Non-Af 41 L, BUN/Creatinine Ratio 17.4, Glucose 143 H, Calcium 7.8 L, Total Bilirubin 0.50, AST 15, ALT 18, Alkaline Phosphatase 142 H, Total Protein 5.7 L, Albumin 1.7 L, Globulin 4.0, Albumin/Globulin Ratio 0.4 L Microbiology: Microbiology 07/20/22 14:10 Blood Culture (Wb) - Anticubital Right Blood Culture - Preliminary No growth in 48 hours. 07/20/22 14:00 Blood Culture (Wb) - Left Hand Blood Culture - Preliminary No growth in 48 hours. D/C Instructions Discharge Diet: Low fat / Low cholesterol, 8 Cup Fluid Restriction and 2000 mg Sodium Diet Meaningful Use Info Meaningful Use Diagnoses (Choose all that apply): None applicable Discharge Plan Admission Admit Date/Time: 07/21/22 15:03 Primary Reason for Your Visit: A. fib with RVR Attending Provider: Devora Loyola Primary Care Provider: Raul Uribe Consulting Providers: Ru Thomas ; Breanne Barkley ; Andrew Cronin Instructions Additional Instructions / Restrictions: Repeat CBCD and CMP within 3 days Daily weights per CHF protocol. Follow-up with Dr. Raheem Flaherty ([phone]) within 1 week Discharge Orders/Prescriptions Prescriptions: New diltiazem HCl 120 mg Capsule,Extended Release 24hr 120 mg PO DAILY Qty: 30 0RF metoprolol tartrate 50 mg Tablet 50 mg PO BID Qty: 0 0RF furosemide [Lasix] 40 mg tablet 40 mg PO BID 30 Days Qty: 60 0RF Continued aspirin [Adult Low Dose Aspirin] 81 MG tablet,delayed release (DR/EC) 81 mg PO DAILY Label Comments: [facility] cholecalciferol (vitamin D3) 5,000 UNIT capsule 5,000 unit PO DAILY ursodiol [PAT 250] 250 MG tablet 375 mg PO BID Label Comments: Take 1 tablet by mouth three times daily. still needs tonights dose potassium chloride 10 mEq tablet,ER particles/crystals 20 meq PO QODAY cyclobenzaprine 10 mg tablet 10 mg PO TID PRN (Reason: Spasms) Label Comments: Take 1 tablet by mouth three times daily as needed. ascorbic acid (vitamin C) [Vitamin C] 1,000 mg Tablet 1,000 mg PO DAILY zinc acetate 50 mg (zinc) Capsule 50 mg PO DAILY sulfamethoxazole-trimethoprim 400-80 mg tablet 1 tab PO DAILY Label Comments: TAKE 1 TABLET BY MOUTH DAILY ondansetron 4 mg tablet,disintegrating 4 mg PO Q8H PRN (Reason: Nausea) Label Comments: Take 1 tablet by mouth every 8 hours as needed. melatonin 5 mg Tablet 5 mg PO QHS lactulose 20 gram/30 mL solution 20 g PO BID Qty: 1500 1RF Rx Instructions: Please titrate up if needed to attain 2-3 bowel movements daily tacrolimus 0.5 mg capsule 0.5 mg PO 0900,2100 Qty: 60 0RF Label Comments: 1 capsule by mouth as directed Rx Instructions: Continue at the direction of [facility] Eliquis 5 mg tablet 5 mg PO BID alprazolam 0.5 MG tablet 0.5 mg PO DAILY PRN (Reason: Anxiety) 3 Days Qty: 3 0RF oxycodone 10 mg tablet 10 mg PO TID 3 Days Qty: 9 0RF Discontinued torsemide 100 mg tablet 100 mg PO BID Hold Instructions: Resume on 06/24/22. metoprolol succinate 25 mg tablet extended release 24 hr 25 mg PO 0900,2100 Referrals / Follow Up: Ru Thomas MD [Med Staff - Active Staff] - Within 2 Weeks Raul Uribe MD [Primary Care Provider] - In 1 Week Disposition Disposition (needs filled in before D/C Order can be placed): Home, Self Care Charges/Coding Visit Charges Inpatient E&M: 16851 Disch Hosp
[2022-07-25] MEDS: Ursodiol 250 MG Tablet 375 MG PO (09:27)
[2022-07-25] MEDS: Smz/Tmp Ds Tablet 0.5 TABLET PO (09:28)
[2022-07-25] MEDS: Tacrolimus 0.5 MG Capsule PO (09:28)
[2022-07-25] MEDS: Ascorbic Acid 500 MG Tablet 1000 MG PO (09:28)
[2022-07-25] MEDS: Metoprolol Tartrate 50 MG Tablet PO (09:29)
[2022-07-25] MEDS: Aspirin E.C. 81 MG Tablet PO (09:29)
[2022-07-25] MEDS: Lactulose 20 GM/30 ML UDC PO (09:29)
[2022-07-25] MEDS: dilTIAZem CD 120 MG Capsule PO (09:29)
[2022-07-25] MEDS: APIXABAN 5 MG TABLET PO (09:29)
[2022-07-25] MEDS: Cholecalciferol (Vit D3) 125 MCG CAPSULE (5,000 UNITS) PO (09:29)
[2022-07-25] MEDS: Furosemide 40 MG/4 ML Vial IV (09:30)
[2022-07-25] MEDS: 0.9% Saline Lock 10 ML Syringe IV (09:32)
--- NOTE | 2022-07-25 09:51 | CASEMGMT ---
SW went to patient's room to notify him that insurance approved him to go to TCU. Patient said he was aware and he is going today. Plan: d/c to [facility] TCU under skilled level of care Kaley SWEENEY
--- NOTE | 2022-07-25 10:07 | PHA.DC.MR ---
Pharmacy Service has performed discharge medication reconciliation for this patient. The patient's discharge medication list was reviewed for discrepancies and discrepancies were resolved. Home Medications aspirin 81 mg tablet,delayed release (Adult Low Dose Aspirin) 81 mg PO DAILY health maintenance 10/21/15 cholecalciferol (vitamin D3) 125 mcg (5,000 unit) capsule 5,000 unit PO DAILY supplement 04/07/19 ursodiol 250 mg tablet (PAT 250) 375 mg PO BID GALLSTONES 04/07/19 potassium chloride 10 mEq tablet,extended release(part/cryst) 20 meq PO QODAY supplement 01/19/21 ascorbic acid (vitamin C) 1,000 mg tablet (Vitamin C) 1,000 mg PO DAILY SUPPLEMENT 06/19/22 cyclobenzaprine 10 mg tablet 10 mg PO TID PRN Spasms 06/19/22 melatonin 5 mg tablet 5 mg PO QHS SLEEP 06/19/22 ondansetron 4 mg disintegrating tablet 4 mg PO Q8H PRN Nausea 06/19/22 sulfamethoxazole 400 mg-trimethoprim 80 mg tablet 1 tab PO DAILY ANTIBIOTIC 06/19/22 zinc acetate 50 mg (zinc) capsule 50 mg PO DAILY SUPPLEMENT 06/19/22 lactulose 20 gram/30 mL oral solution 20 g (30 mL) PO BID #1,500 mL 06/21/22 tacrolimus 0.5 mg capsule, immediate-release 0.5 mg PO 0900,2100 IMMUNE #60 caps 06/21/22 apixaban 5 mg tablet (Eliquis) 5 mg PO BID BLOOD THINNER 07/20/22 diltiazem HCl 120 mg capsule,extended release 24 hr 120 mg PO DAILY #30 caps 07/22/22 alprazolam 0.5 mg tablet 0.5 mg PO DAILY PRN Anxiety 3 days #3 tabs 07/25/22 furosemide 40 mg tablet (Lasix) 40 mg PO BID 30 days #60 tabs 07/25/22 metoprolol tartrate 50 mg tablet 50 mg PO BID #0 tabs 07/25/22 oxycodone 10 mg tablet 10 mg PO TID BREAKTHROUGH PAIN 3 days #9 tabs 07/25/22
--- NOTE | 2022-07-25 11:35 | NURSING ---
Report called to nurse Urbina for pt to be d/c to TCU
== END 2022-07-25 11:58 | disposition skilled nursing facility (03) | DRG 309 ==
LOC: ED 15:19 → PCU 15:35
PROVIDERS: Internal Medicine; Nurse Practitioner; Admitting Provider Student in an Organized Health Care Education/Training Program; Emergency Provider Student in an Organized Health Care Education/Training Program; PCP Family Medicine; Visit Provider Internal Medicine
DX: I48.0 Paroxysmal atrial fibrillation (principal); N17.9 Acute kidney failure, unspecified; E87.20 Acidosis, unspecified; I13.0 Hypertensive heart and chronic kidney disease with heart failure and stage 1 through stage 4 chronic kidney disease, or unspecified chronic kidney disease; N18.4 Chronic kidney disease, stage 4 (severe); Z68.43 Body mass index [BMI] 50.0-59.9, adult; Z94.4 Liver transplant status; E88.01 Alpha-1-antitrypsin deficiency; I95.9 Hypotension, unspecified; I48.92 Unspecified atrial flutter; E66.01 Morbid (severe) obesity due to excess calories; I47.1 Supraventricular tachycardia; K75.81 Nonalcoholic steatohepatitis (NASH); I25.10 Atherosclerotic heart disease of native coronary artery without angina pectoris; M19.079 Primary osteoarthritis, unspecified ankle and foot; I25.2 Old myocardial infarction; Z20.822 Contact with and (suspected) exposure to COVID-19; Z79.891 Long term (current) use of opiate analgesic; Z79.01 Long term (current) use of anticoagulants; Z79.82 Long term (current) use of aspirin
CPT/HCPCS: 36415; 71045; 76705; 80048; 80053; 80076; 81001; 82140; 83605; 83690; 83735; 83880; 84484; 85025; 85610; 87040; 87426; 93005; 97110; 97162; 97165; 97530; 97535; 97802; 99285; J7040; J7050; A4216; J1940

== ENCOUNTER 2022-07-25 12:25 | Inpatient (IN) | payer MEDICARE, SELFPAY ==
[2022-07-25 12:30] VITALS: BP 123/77; PULSE 68; RESP 16; RESP 18; TEMP 36.2; O2SAT 95; BMI 50.3
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
[2022-07-25] MEDS: oxyCODONE 5 MG Tablet 10 MG PO ×2 (15:58→20:44)
[2022-07-25 17:39] VITALS: BP 115/57; PULSE 64
[2022-07-25] MEDS: Metoprolol Tartrate 50 MG Tablet PO (17:39)
[2022-07-25] MEDS: APIXABAN 5 MG TABLET PO (17:45)
[2022-07-25] MEDS: Furosemide 40 MG Tablet PO (17:45)
[2022-07-25] MEDS: Famotidine 20 MG Tablet PO (17:45)
[2022-07-25] MEDS: Ursodiol 250 MG Tablet 375 MG PO (17:45)
--- NOTE | 2022-07-25 20:43 | HP.PCM_ITS ---
HPI - General General Date of Admission: 07/25/22 Date of Service: 07/25/22 Chief Complaint: Here for rehabilitation. HPI Narrative 07/20/2022 ESTEFANIA MILLER, is a 61 Male who presents to [facility] Emergency Department with heart palpitations. Atrial fibrillation, dizziness, going in and out of atrial fibrillation. On Eliquis. Near syncope during bowel movement, weak, tired. Heart beating fast, irregular. Heart Rate 150's, systolic blood pressure 80, normal saline 1 liter IV bolus. Chest X-ray okay, WBC 20,000, Creatinine 3.0, Lactic acid 3.7. Troponin negative, Ammonia 37. Amiodarone 150mg bolus, heart rate down to 67. 07/20/2022 Admit to Hospital. Amiodarone drip, Metoprolol, Echo for atrial fibrillation with rapid ventricular response. Lactulose for hyperammonemia. IV fluids for acute kidney injury. Lasix IV for heart failure with preserved ejection fraction. No infection with WBC 20,000, patient had steroid injections in his feet recently. 07/21/2022 Atrial fibrillation with RVR, chest pain treated with cardizem drip. Kidney function back to baseline. Continue diuretics for heart failure preserved ejection fraction. 07/22/2022 Normal sinus rhythm, change cardizem drip to oral cardizem. PT[facility]. 07/23/2022 Severe pain in legs. Lasix IV for heart failure preserved ejection fraction. 07/24/2022 Several episodes SVT, resolved with Metoprloll 50mg iv x 1, then Metoprolol 50mg twice daily. 07/25/2022 Admit to TCU with debility, here for rehabilitation, strengthening, prior to discharge home with . [facility] Medical History (HFpEF) heart failure with preserved ejection fraction Acidosis, lactic Acute hypotension Anemia of chronic disease Ascites Atherosclerotic heart disease of [place] coronary artery without angina pectoris Atrial fibrillation Atrial flutter with rapid ventricular response (02/02/21) Cellulitis Chronic renal failure, stage 3 (moderate) Cirrhosis Coronary artery disease History of non-ST elevation myocardial infarction (NSTEMI) (12/29/20) Kidney disease Morbid obesity Multiple falls Nonsustained paroxysmal ventricular tachycardia (12/2020) Venous insufficiency Vertigo, central Home Medications aspirin 81 mg tablet,delayed release (Adult Low Dose Aspirin) 81 mg PO DAILY HEART HEALTH 10/21/15 [History Last Taken 07/19/22] cholecalciferol (vitamin D3) 125 mcg (5,000 unit) capsule 5,000 unit PO DAILY supplement 04/07/19 [History Last Taken 07/20/22] ursodiol 250 mg tablet (PAT 250) 375 mg PO BID GALLSTONES 04/07/19 [History Last Taken 07/20/22] potassium chloride 10 mEq tablet,extended release(part/cryst) 20 meq PO QODAY supplement 01/19/21 [History Last Taken 07/18/22] ascorbic acid (vitamin C) 1,000 mg tablet (Vitamin C) 1,000 mg PO DAILY SUPPLEMENT 06/19/22 [History Last Taken 07/19/22] cyclobenzaprine 10 mg tablet 10 mg PO TID PRN Spasms 06/19/22 [History Last Taken 07/20/22] melatonin 5 mg tablet 5 mg PO QHS SLEEP 06/19/22 [History Last Taken 07/19/22] ondansetron 4 mg disintegrating tablet 4 mg PO Q8H PRN Nausea 06/19/22 [History Last Taken 07/20/22] sulfamethoxazole 400 mg-trimethoprim 80 mg tablet 1 tab PO DAILY LIVER TRANSPLANT 06/19/22 [History Last Taken 07/20/22] zinc acetate 50 mg (zinc) capsule 50 mg PO DAILY SUPPLEMENT 06/19/22 [History Last Taken 07/19/22] tacrolimus 0.5 mg capsule, immediate-release 0.5 mg PO 0900,2100 IMMUNE #60 caps 06/21/22 [Rx Last Taken 07/20/22] apixaban 5 mg tablet (Eliquis) 5 mg PO BID BLOOD THINNER 07/20/22 [History Last Taken 07/20/22] alprazolam 0.5 mg tablet 0.5 mg PO DAILY PRN Anxiety 3 days #3 tabs 07/25/22 [Rx Last Taken Unknown] diltiazem HCl 120 mg capsule,extended release 24 hr 120 mg PO DAILY BP 07/25/22 [History Last Taken Unknown] furosemide 40 mg tablet (Lasix) 40 mg PO BID SWELLING 07/25/22 [History Last Taken Unknown] lactulose 20 gram/30 mL oral solution 20 g PO BID LIVER 07/25/22 [History Last Taken Unknown] metoprolol tartrate 50 mg tablet 50 mg PO BID BP 07/25/22 [History Last Taken Unknown] oxycodone 10 mg tablet 10 mg PO TID BREAKTHROUGH PAIN 3 days #9 tabs 07/25/22 [Rx Last Taken Unknown] Allergy/AdvReac Type Severity Reaction Status Date / Time pravastatin [From Pravachol] Allergy Hives Verified 07/20/22 12:44 Vypjehz-TXR-ThR Reductase Allergy Hives Verified 07/20/22 12:44 Inhibitor [Krvdcda-Oft-Axy Reductase Inhibitor] vancomycin Allergy NEEDS Verified 07/20/22 12:44 FOLLOW-UP zolpidem tartrate Allergy Hives Verified 07/20/22 12:44 [From Ambien] everolimus AdvReac Swelling Verified 07/20/22 12:44 gabapentin AdvReac NEEDS Verified 07/20/22 12:44 FOLLOW-UP Family History Mother Heart disease Father Heart disease Surgical History H/O shoulder surgery History of cardioversion (02/02/21) History of hip surgery Liver transplant recipient Status post liver transplant (07/2017) Social History household members: spouse Smoking Status: Never smoker alcohol intake: current Alcohol type: other substance use type: does not use ROS Constitutional Constitutional: Denies chills, fever(s) or weight gain ENT HEENT: Denies headache(s), nasal congestion or nasal discharge Cardiovascular Cardiovascular: Denies chest pain or palpitations Respiratory/Chest Respiratory/Chest: Denies cough, excessive phlegm production or shortness of breath with exertion Gastrointestinal Gastrointestinal: Denies abdominal pain, nausea or vomiting Genitourinary Genitourinary: Denies dysuria Musculoskeletal Musculoskeletal: Denies joint pain or joint swelling Integumentary Integumentary: Denies rash or wounds Neurologic Neurologic: Denies focal weakness, numbness or tingling Psychiatric Psychiatric: Denies anxiety, auditory hallucinations, depression, homicidal ideation or suicidal ideation Vital Signs Vital Signs Vital Signs: 07/25/22 12:30 07/25/22 12:30 07/25/22 17:39 Temperature 97.2 F L Temperature Source Temporal Pulse Rate 68 64 Pulse Rhythm Regular Pulse Strength Weak (1+) Respiratory Rate 16 18 Respiratory Effort Normal Non-Labored Respiratory Depth Normal Respiratory Pattern Normal Blood Pressure 123/77 H 115/57 L Blood Pressure Mean 92 Blood Pressure Source Monitor Blood Pressure Position Sitting Blood Pressure Location Right Arm Pulse Ox 95 Oxygen Delivery Method Room Air Weight Weight: 159.268 kg Body Mass Index (BMI) 50.3 Physical Exam Const alert General Appearance: cooperative HEENT normocephalic Eyes PERRL and EOMs intact bilaterally Neck supple, no JVD and no carotid bruits Resp normal respiratory effort, normal air movement and clear to auscultation bilaterally Cardio regular rate and regular rhythm GI normal to inspection, nondistended, normoactive bowel sounds, non-tender and non-distended Extremity normal capillary refill General Extremity: Negative for edema Skin no rashes or lesions noted General Skin Exam: no breakdown Psych affect normal Appearance: appropriate Assessment & Plan Assessment/Plan (1) Debility: (2) Acute kidney injury: (3) Atrial fibrillation with rapid ventricular response: (4) Near syncope: (5) SVT (supraventricular tachycardia): (6) Acute on chronic diastolic (congestive) heart failure: (7) Morbid obesity: (8) FELIPE (nonalcoholic steatohepatitis): (9) Chronic kidney disease, stage 3a: (10) Hepatic encephalopathy: (11) Anxiety: (12) Hypokalemia: (13) Insomnia: (14) Nausea: PLAN: Plan 61 year old male with below past medical history hospitalized for atrial fibrillation with rapid ventricular response, complicated by acute kidney injury, acute on chronic diastolic congestive heart failure, admitted to TCU with debility, here for rehabilitation, strengthening, prior to discharge home with . * Debility - PT/OT. * Pain - Oxycodone 10mg tid. * Bowel - Lactulose 20gm bid. * Adult immunization - Administer pneumonia vaccine, covid19 vaccine, flu vaccine as appropriate. * DVT prophylaxis - Not necessary, Eliquis 5mg bid. 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 * Atrial fibrillation - Metoprolol 50mg bid, Diltiazem CD 120mg daily, Eliquis 5mg bid. * Vitamin C deficiency - Vitamin C 1000mg daily. * Muscle spasm - Flexeril 10mg tid prn. * GERD - Famotidine 20mg bid. * Chronic diastolic congestive heart failure - Metoprolol 50mg bid, Fuorsemide 40mg bid. * Hepatic encephalopathy - Lactulose 20gm bid. * Insomnia - Melatonin 5mg qhs. * Bilateral foot osteoarthritis - Medrol dose pack. * Tinea Corporis - Nystatin powder topical bid. * Hypokalemia - KCL 20meq every other day. * Hx liver transplant - Bactrim DS 1/2 tablet daily, Tacolimus 0.5mg bid. * Fatty liver - Ursodiol 375mg bid. * Vitamin D deficiency - D3 125mcg daily. * Zinc deficiency - Zinc 220mg daily.
[2022-07-25] MEDS: MELATONIN 10 MG TABLET 5 MG PO (20:44)
[2022-07-25] MEDS: Tacrolimus 0.5 MG Capsule PO (20:44)
[2022-07-25] MEDS: MethylPREDNISolone DosePak 4 MG BOX PO (20:45)
[2022-07-25] MEDS: Nystatin Powder 15gm Bottle 1 APPLIC TOPICAL (20:46)
--- NOTE | 2022-07-26 01:39 | NURSING ---
Patient requesting Lactulose to be changed from bid to daily at 10:00. Also requesting PRN Oxy. Communication left for Dr. Bose.
--- NOTE | 2022-07-26 05:00 | NURSING ---
Patient refused to have Pneumonia vaccine, but agreed to Flu vaccine.
[2022-07-26 06:13] LABS: Absolute Neutrophil Count 9.3 X10^3/uL (2.0-7.7); Basophil# 0.02 X10^3/uL; Basophil% 0.2 % (0-1); Eosinophil# 0.02 X10^3/uL; Eosinophils% 0.2 % (0-5); Hematocrit 31.6 % (40-54); Hemoglobin 10.5 g/dL (13.0-16.5); Mean Corp Hgb Conc 33.2 g/dL (32-36); Mean Corpuscular Hgb 29.7 pg (27.0-32.0); Mean Corpuscular Volume 89.3 fL (80-94); Mean Platelet Vol. 10.2 fl (6.2-12.0); Monocyte# 0.12 X10^3/uL; Monocyte% 1.2 % (0-10); NRBC Flagged by Analyzer 0 % (0-5); Neutrophil % 92.9 % (47-70); POSITIVE DIFFERENTIAL YES; Platelet Count 344 K/mm3 (150-450); RBC Distribution Width CV 14.4 % (11.6-14.6); RBC Distribution Width SD 46.8 fl (35.1-43.9); Red Blood Count 3.54 M/mm3 (4.6-6.2)
[2022-07-26 06:15] LABS: Differential Indicated SCAN CRITERIA MET
[2022-07-26 06:30] LABS: Anion Gap 7 (5-15); BUN 32 mg/dL (7-18); BUN/Creat Ratio 15.5 RATIO (10-20); Calcium,Total 8.7 mg/dL (8.5-10.1); Chloride 102 mmol/L (98-107); Creatinine, Serum 2.07 mg/dL (0.70-1.30); Differential Comment SCANNED; EST Glomerular Filtration Rate 35 mL/min (>60); Est Glom Filt Rate - Afr Amer 42 mL/min (>60); Estimated Creatinine Clearance 38.69 ml/min; Glucose 277 mg/dL (74-106); Potassium 4.3 mmol/L (3.5-5.1); Sodium Level 134 mmol/L (136-145)
[2022-07-26] MEDS: Furosemide 40 MG Tablet PO ×2 (06:46→13:09)
[2022-07-26] MEDS: Cholecalciferol (Vit D3) 125 MCG CAPSULE (5,000 UNITS) PO (06:46)
[2022-07-26] MEDS: oxyCODONE 5 MG Tablet 10 MG PO ×3 (06:46→22:50)
[2022-07-26] MEDS: APIXABAN 5 MG TABLET PO ×2 (06:46→17:59)
[2022-07-26] MEDS: Famotidine 20 MG Tablet PO ×2 (06:46→18:00)
[2022-07-26] MEDS: dilTIAZem CD 120 MG Capsule PO (06:46)
[2022-07-26] MEDS: Ascorbic Acid 500 MG Tablet 1000 MG PO (06:46)
[2022-07-26] MEDS: Ursodiol 250 MG Tablet 375 MG PO ×2 (06:46→18:01)
[2022-07-26 06:47] VITALS: BP 132/62; PULSE 66
[2022-07-26] MEDS: Metoprolol Tartrate 50 MG Tablet PO ×2 (06:47→18:00)
[2022-07-26] MEDS: MethylPREDNISolone DosePak 4 MG BOX PO ×4 (08:39→22:48)
[2022-07-26] MEDS: Smz/Tmp Ds Tablet 0.5 TABLET PO (08:40)
[2022-07-26] MEDS: Tacrolimus 0.5 MG Capsule PO ×2 (08:43→22:47)
[2022-07-26] MEDS: Tuberculin,Purif.prot.deriv. 50 TU/ML Vial 0.1 ML ID (10:32)
[2022-07-26] MEDS: Potassium Chloride Oral Tablet 20 MEQ PO (10:33)
[2022-07-26] MEDS: Lactulose 20 GM/30 ML UDC PO (10:34)
[2022-07-26] MEDS: Nystatin Powder 15gm Bottle 1 APPLIC TOPICAL ×2 (10:37→22:50)
--- NOTE | 2022-07-26 14:22 | NURSING ---
PT NEEDS APPOINTMENT WITH DR.ASHAD HOPKINS,LOG RAFT WORKER SCHEDULED TOMORROW,07/27/22. FOR FOLLOW UP IN 2 WEEKS.
[2022-07-26 15:04] VITALS: BP 126/66; PULSE 67; RESP 17; TEMP 37.2; O2SAT 95
[2022-07-26 18:00] VITALS: BP 126/66; PULSE 67
[2022-07-26] MEDS: MELATONIN 10 MG TABLET 5 MG PO (22:48)
[2022-07-27 06:17] LABS: Anion Gap 8 (5-15); BUN 36 mg/dL (7-18); BUN/Creat Ratio 17.3 RATIO (10-20); Calcium,Total 8.4 mg/dL (8.5-10.1); Chloride 102 mmol/L (98-107); Creatinine, Serum 2.08 mg/dL (0.70-1.30); EST Glomerular Filtration Rate 35 mL/min (>60); Est Glom Filt Rate - Afr Amer 42 mL/min (>60); Estimated Creatinine Clearance 38.51 ml/min; Glucose 235 mg/dL (74-106); Potassium 4.3 mmol/L (3.5-5.1); Sodium Level 134 mmol/L (136-145)
[2022-07-27] MEDS: oxyCODONE 5 MG Tablet 10 MG PO ×2 (06:17→21:14)
[2022-07-27] MEDS: Ursodiol 250 MG Tablet 375 MG PO ×2 (06:19→16:50)
[2022-07-27] MEDS: Ascorbic Acid 500 MG Tablet 1000 MG PO (06:23)
[2022-07-27] MEDS: Cholecalciferol (Vit D3) 125 MCG CAPSULE (5,000 UNITS) PO (06:23)
[2022-07-27] MEDS: Furosemide 40 MG Tablet PO ×2 (06:23→13:16)
[2022-07-27] MEDS: dilTIAZem CD 120 MG Capsule PO (06:24)
[2022-07-27] MEDS: APIXABAN 5 MG TABLET PO ×2 (06:24→16:48)
[2022-07-27] MEDS: Famotidine 20 MG Tablet PO ×2 (06:24→16:50)
[2022-07-27 06:25] VITALS: BP 115/54; PULSE 59
[2022-07-27] MEDS: Metoprolol Tartrate 50 MG Tablet PO ×2 (06:25→16:48)
[2022-07-27] MEDS: Smz/Tmp Ds Tablet 0.5 TABLET PO (07:56)
[2022-07-27] MEDS: MethylPREDNISolone DosePak 4 MG BOX PO ×4 (07:57→21:18)
[2022-07-27] MEDS: Tacrolimus 0.5 MG Capsule PO ×2 (09:33→21:18)
[2022-07-27] MEDS: Nystatin Powder 15gm Bottle 1 APPLIC TOPICAL ×2 (09:34→21:15)
[2022-07-27] MEDS: FLU VACC QS2022-23(6MOS UP)/PF 60 MCG/0.5 ML SYRINGE IM (09:42)
[2022-07-27] MEDS: Lactulose 20 GM/30 ML UDC PO (09:58)
[2022-07-27 10:00] VITALS: PULSE 74; RESP 16; O2SAT 98
[2022-07-27] MEDS: Amox/Clavulanate 875 MG Tablet PO ×2 (11:21→16:47)
[2022-07-27 16:00] VITALS: BP 128/64; PULSE 59; RESP 16; TEMP 36.2; O2SAT 97
[2022-07-27 16:48] VITALS: BP 126/65; PULSE 61
--- NOTE | 2022-07-27 17:07 | CASEMGMT ---
Social Work Met with patient to complete initial assessment. Introduced self and role. Verified contacts. Discussed code status and MOLST. Pt confirmed full code. MOLST placed in Dr folder. Pt wishes to complete advanced directives. SW to complete prior to DC as time allows. Educated to [facility] insurance with NRD 07/30 and continued stay is not guaranteed. Pt and this worker discussed new specialists pt would like to assume. Nursing notified. Pt requesting new rollator from [facility]. SW to order at DC if pt had not received one in the last 5 years. SW to continue to follow for DC planning. Eunice Bright ,PLANT CONTROL AIDE PROGRAM PROJECT MANAGER
[2022-07-27] MEDS: MELATONIN 10 MG TABLET 5 MG PO (21:18)
[2022-07-28] MEDS: Amox/Clavulanate 875 MG Tablet PO ×2 (06:19→17:55)
[2022-07-28] MEDS: Furosemide 40 MG Tablet PO ×3 (06:19→15:55)
[2022-07-28] MEDS: APIXABAN 5 MG TABLET PO ×2 (06:19→17:55)
[2022-07-28 06:20] VITALS: BP 139/73; PULSE 66
[2022-07-28] MEDS: Famotidine 20 MG Tablet PO ×2 (06:20→17:57)
[2022-07-28] MEDS: Ursodiol 250 MG Tablet 375 MG PO ×2 (06:20→17:57)
[2022-07-28] MEDS: Ascorbic Acid 500 MG Tablet 1000 MG PO (06:20)
[2022-07-28] MEDS: Cholecalciferol (Vit D3) 125 MCG CAPSULE (5,000 UNITS) PO (06:20)
[2022-07-28] MEDS: Metoprolol Tartrate 50 MG Tablet PO ×2 (06:20→17:56)
[2022-07-28] MEDS: dilTIAZem CD 120 MG Capsule PO (06:21)
[2022-07-28] MEDS: Smz/Tmp Ds Tablet 0.5 TABLET PO (07:49)
[2022-07-28] MEDS: MethylPREDNISolone DosePak 4 MG BOX PO ×3 (07:49→21:39)
[2022-07-28] MEDS: Tacrolimus 0.5 MG Capsule PO ×2 (07:59→21:44)
[2022-07-28] MEDS: oxyCODONE 5 MG Tablet 10 MG PO ×2 (08:17→21:48)
[2022-07-28] MEDS: Potassium Chloride Oral Tablet 20 MEQ PO (09:14)
[2022-07-28] MEDS: Lactulose 20 GM/30 ML UDC 40 GM PO (09:15)
[2022-07-28] MEDS: Nystatin Powder 15gm Bottle 1 APPLIC TOPICAL ×2 (09:17→21:39)
--- NOTE | 2022-07-28 12:45 | NURSING ---
PT EDUCATED ON DIET AND HIS GLUCOSE BEING HIGH. PT HAS FAMILY BRING HIM IN DONUTS,CANDY ETC. PT IS ON PREDNISONE WHICH THIS NURSE EXPLAINED TO PT THAT ALSO CAN RAISE HIS GLUCOSE BUT IF IT CONTINUES TO RAISE THIS NURSE WILL CALL AND THEN HE MAY PUT PT ON INSULIN. PT STATED HE UNDER STOOD AND DIDN'T WANT TO BE ON INSULIN .RN AWARE
--- NOTE | 2022-07-28 13:33 | NURSING ---
PT REQUESTED ROSANNA WRAPS FOR INNA LEG AND FEET SWELLING. PT STATED HE DOES IT AT HOME. PUT ORDER IN FOR ROSANNA WRAPS,RN AWARE.
[2022-07-28 15:09] VITALS: BP 125/59; PULSE 62; RESP 18; TEMP 36.4; O2SAT 97
[2022-07-28 17:56] VITALS: BP 125/59; PULSE 62
[2022-07-28 20:13] VITALS: PULSE 60; RESP 16; O2SAT 98
[2022-07-28] MEDS: MELATONIN 10 MG TABLET 5 MG PO (21:40)
[2022-07-29] MEDS: Amox/Clavulanate 875 MG Tablet PO ×2 (05:31→18:01)
[2022-07-29] MEDS: dilTIAZem CD 120 MG Capsule PO (05:32)
[2022-07-29] MEDS: Ursodiol 250 MG Tablet 375 MG PO ×2 (05:33→17:59)
[2022-07-29] MEDS: APIXABAN 5 MG TABLET PO ×2 (05:34→18:01)
[2022-07-29] MEDS: Famotidine 20 MG Tablet PO ×2 (05:34→18:00)
[2022-07-29] MEDS: Furosemide 80 MG Tablet PO ×2 (05:34→13:19)
[2022-07-29 05:36] VITALS: BP 129/69; PULSE 60
[2022-07-29] MEDS: Metoprolol Tartrate 50 MG Tablet PO ×2 (05:36→18:00)
[2022-07-29] MEDS: Cholecalciferol (Vit D3) 125 MCG CAPSULE (5,000 UNITS) PO (05:36)
[2022-07-29] MEDS: Ascorbic Acid 500 MG Tablet 1000 MG PO (05:38)
[2022-07-29] MEDS: Ondansetron ODT 4 MG Tablet PO ×2 (08:51→17:44)
[2022-07-29] MEDS: Tacrolimus 0.5 MG Capsule PO ×2 (08:55→21:32)
[2022-07-29] MEDS: MethylPREDNISolone DosePak 4 MG BOX PO ×2 (08:55→21:28)
[2022-07-29] MEDS: Smz/Tmp Ds Tablet 0.5 TABLET PO (08:56)
[2022-07-29 09:00] VITALS: PULSE 56; RESP 18; O2SAT 98
[2022-07-29] MEDS: Lactulose 20 GM/30 ML UDC 40 GM PO (10:45)
[2022-07-29] MEDS: Nystatin Powder 15gm Bottle 1 APPLIC TOPICAL ×2 (10:47→21:45)
[2022-07-29] MEDS: oxyCODONE 5 MG Tablet 10 MG PO ×2 (13:55→21:38)
[2022-07-29 15:06] VITALS: BP 150/68; PULSE 59; RESP 18; TEMP 36.3; O2SAT 98
[2022-07-29 18:00] VITALS: BP 150/68; PULSE 59
[2022-07-29] MEDS: MELATONIN 10 MG TABLET 5 MG PO (21:29)
[2022-07-30] MEDS: cycloBENZAPRine HCl 10 MG Tablet PO (02:33)
[2022-07-30 06:07] LABS: Anion Gap 9 (5-15); BUN 49 mg/dL (7-18); BUN/Creat Ratio 23.3 RATIO (10-20); Calcium,Total 8.3 mg/dL (8.5-10.1); Chloride 107 mmol/L (98-107); EST Glomerular Filtration Rate 34 mL/min (>60); Est Glom Filt Rate - Afr Amer 41 mL/min (>60); Estimated Creatinine Clearance 38.14 ml/min; Glucose 187 mg/dL (74-106); Potassium 3.6 mmol/L (3.5-5.1); Sodium Level 139 mmol/L (136-145)
[2022-07-30] MEDS: Amox/Clavulanate 875 MG Tablet PO ×2 (06:29→18:11)
[2022-07-30] MEDS: Famotidine 20 MG Tablet PO ×2 (06:29→17:56)
[2022-07-30] MEDS: Ursodiol 250 MG Tablet 375 MG PO ×2 (06:29→18:11)
[2022-07-30] MEDS: Ascorbic Acid 500 MG Tablet 1000 MG PO (06:29)
[2022-07-30] MEDS: APIXABAN 5 MG TABLET PO ×2 (06:29→18:10)
[2022-07-30] MEDS: Cholecalciferol (Vit D3) 125 MCG CAPSULE (5,000 UNITS) PO (06:29)
[2022-07-30] MEDS: Furosemide 80 MG Tablet PO ×2 (06:30→13:26)
[2022-07-30 06:34] VITALS: BP 118/57; PULSE 60
[2022-07-30] MEDS: Metoprolol Tartrate 50 MG Tablet PO ×2 (06:34→17:55)
[2022-07-30] MEDS: Ondansetron ODT 4 MG Tablet PO (08:12)
[2022-07-30] MEDS: Smz/Tmp Ds Tablet 0.5 TABLET PO (09:32)
[2022-07-30] MEDS: MethylPREDNISolone DosePak 4 MG BOX PO (09:33)
[2022-07-30] MEDS: Tacrolimus 0.5 MG Capsule PO ×2 (09:33→20:22)
[2022-07-30] MEDS: dilTIAZem CD 120 MG Capsule PO (09:33)
[2022-07-30 10:10] VITALS: O2SAT 98
--- NOTE | 2022-07-30 10:23 | NURSING ---
F/U appt scheduled with Dr. Babin with cardiology on Sep 04, 2022 at 0930. only in office three days in August and this was earliest appt available.
[2022-07-30] MEDS: Nystatin Powder 15gm Bottle 1 APPLIC TOPICAL ×2 (11:08→20:26)
[2022-07-30] MEDS: Potassium Chloride Oral Tablet 20 MEQ PO (11:08)
[2022-07-30] MEDS: oxyCODONE 5 MG Tablet 10 MG PO ×2 (11:09→23:24)
[2022-07-30 13:36] VITALS: BP 102/51; PULSE 63; RESP 18; TEMP 36.5; O2SAT 98
--- NOTE | 2022-07-30 13:42 | NURSING ---
Resident educated on the COVID 19 Vaccine, he does not want to receive it.
--- NOTE | 2022-07-30 14:03 | PCM.PN.DRR ---
TCU RX Drug Regimen Review Subjective: TCU Admission. 61 YOM presented to the ER with heart palpitations. Hospitalized for atrial fibrillation with rapid ventricular response, complicated by acute kidney injury, acute on chronic diastolic congestive heart failure. Admitted to TCU with debility for strengthening and rehabilitation. Objective: Allergies pravastatin [From Pravachol] Allergy (Verified 07/20/22 12:44) Hives Qrbnhsr-DGR-ShL Reductase Inhibitor [Cpzdytb-Lcg-Owp Reductase Inhibitor] Allergy (Verified 07/20/22 12:44) Hives vancomycin Allergy (Verified 07/20/22 12:44) NEEDS FOLLOW-UP zolpidem tartrate [From Ambien] Allergy (Verified 07/20/22 12:44) Hives from the controlled or slow-release ambien. does not have any reactions to regular ambien. everolimus Adverse Reaction (Verified 07/20/22 12:44) Swelling gabapentin Adverse Reaction (Verified 07/20/22 12:44) NEEDS FOLLOW-UP Current Medications Generic Name Dose Route Start Last Admin Trade Name Freq PRN Reason Stop Dose Admin Alprazolam 0.5 mg 07/25/22 13:09 Alprazolam 0.5 Mg Tablet PO DAILY PRN ANXIETY Amoxicillin/Clavulanate Potassium 875 mg 07/27/22 09:45 07/30/22 06:29 Amox/Clavulanate 875 Mg Tablet PO 08/03/22 09:46 875 mg BID ROSALIE Administration Apixaban 5 mg 07/25/22 18:00 07/30/22 06:29 Apixaban 5 Mg Tablet PO 5 mg BID ROSALIE Administration Ascorbic Acid 1,000 mg 07/26/22 06:00 07/30/22 06:29 Ascorbic Acid 500 Mg Tablet PO 1,000 mg DAILY ROSALIE Administration Calcium Carbonate 1,000 mg 07/30/22 07:40 Calcium Carbonate 500 Mg Tablet PO Q4H PRN PRN INDIGESTION Cholecalciferol 125 mcg 07/26/22 06:00 07/30/22 06:29 Cholecalciferol (Vit D3) 125 Mcg Capsule (5,000 Units) PO 125 mcg DAILY ROSALIE Administration Cyclobenzaprine HCl 10 mg 07/25/22 13:09 07/30/22 02:33 Cyclobenzaprine Hcl 10 Mg Tablet PO 10 mg TID PRN Administration SPASMS Diltiazem HCl 120 mg 07/30/22 08:00 07/30/22 09:33 Diltiazem Cd 120 Mg Capsule PO 120 mg DAILY@0800 ROSALIE Administration Famotidine 20 mg 07/25/22 18:00 07/30/22 06:29 Famotidine 20 Mg Tablet PO 20 mg BID ROSALIE Administration Furosemide 80 mg 07/29/22 06:00 07/30/22 13:26 Furosemide 80 Mg Tablet PO 80 mg 0600,1400 ROSALIE Administration Sodium Chloride 250 mls @ 15 mls/hr 07/25/22 13:14 IV .[id number] PRN Saline Flush Sodium Chloride 250 mls @ 15 mls/hr 07/25/22 13:14 IV .[id number] PRN Additional IVPB Infusion Lactulose 40 gm 07/28/22 10:00 07/30/22 11:02 Lactulose 20 Gm/30 Ml Udc PO Not Given 1000 [facility] Melatonin 5 mg 07/25/22 22:00 07/29/22 21:29 Melatonin 10 Mg Tablet PO 5 mg QHS ROSALIE Administration Metoprolol Tartrate 50 mg 07/25/22 18:00 07/30/22 06:34 Metoprolol Tartrate 50 Mg Tablet PO 50 mg BID [facility] Administration Nystatin 1 applic 07/25/22 22:00 07/30/22 11:08 Nystatin Powder 15gm Bottle TOPICAL 1 applic 1000,2200 ROSALIE Administration Protocol Ondansetron HCl 4 mg 07/25/22 13:09 07/30/22 08:12 Ondansetron Odt 4 Mg Tablet PO 4 mg Q8H PRN Administration Nausea Oxycodone HCl 10 mg 07/27/22 09:30 07/30/22 11:09 Oxycodone 5 Mg Tablet PO 10 mg TID PRN Administration Pain Score 6-10 Potassium Chloride 20 meq 07/26/22 10:00 07/30/22 11:08 Potassium Chloride Oral Tablet 20 Meq PO 20 meq QODAY ROSALIE Administration Sodium Chloride 10 - 40 ml 07/25/22 13:14 0.9% Saline Lock 10 Ml Syringe IV UD PRN SALINE FLUSH Tacrolimus 0.5 mg 07/25/22 21:00 07/30/22 09:33 Tacrolimus 0.5 Mg Capsule PO 0.5 mg 0900,2100 [facility] Administration Trimethoprim/Sulfamethoxazole 0.5 tablet 07/26/22 08:00 07/30/22 09:32 Smz/Tmp Ds Tablet PO 0.5 tablet DAILYCM ROSALIE Administration Tuberculin PPD 0.1 ml 08/02/22 10:00 Tuberculin,Purif.Prot.Deriv. 50 Tu/Ml Vial ID 08/02/22 10:01 X1 ONE Ursodiol 375 mg 07/25/22 18:00 07/30/22 06:29 Ursodiol 250 Mg Tablet PO 375 mg BID ROSALIE Administration Zinc Sulfate 220 mg 07/26/22 06:00 07/30/22 06:29 Zinc Sulfate (50mg Elemental) 220 Mg Capsule PO 220 mg DAILY ROSALIE Administration Problem List (Last Reviewed 07/25/22 @ 20:[address] Lance Bose MD) Nausea (Acute) Insomnia (Acute) Hypokalemia (Acute) Anxiety (Acute) Hepatic encephalopathy (Acute) Chronic kidney disease, stage 3a (Chronic) FELIPE (nonalcoholic steatohepatitis) (Acute) Morbid obesity (Acute) Acute on chronic diastolic (congestive) heart failure (Chronic) SVT (supraventricular tachycardia) (Acute) Near syncope (Acute) Atrial fibrillation with rapid ventricular response (Acute) Acute kidney injury (Acute) Debility (Acute) Vital Signs Temp Pulse Resp BP Pulse Ox O2 Del Method 97.7 F L 63 18 102/51 L 98 Room Air 07/30/22 13:36 07/30/22 13:36 07/30/22 13:36 07/30/22 13:36 07/30/22 13:36 07/30/22 13:36 Oxygen Delivery Method Room Air Weight: 162.443 kg Body Mass Index (BMI) 50.3 Sodium 139 mmol/L (136-145) 07/30/22 05:08 Potassium 3.6 mmol/L (3.5-5.1) 07/30/22 05:08 Chloride 107 mmol/L (98-107) 07/30/22 05:08 Carbon Dioxide 23.0 mmol/L (21.0-32.0) 07/30/22 05:08 Anion Gap 9 (5-15) 07/30/22 05:08 BUN 49 mg/dL (7-18) H 07/30/22 05:08 Creatinine 2.10 mg/dL (0.70-1.30) H 07/30/22 05:08 Est GFR (MDRD) Af Amer 41 mL/min (>60) L 07/30/22 05:08 Est GFR (MDRD) Non-Af 34 mL/min (>60) L 07/30/22 05:08 BUN/Creatinine Ratio 23.3 RATIO (10-20) H 07/30/22 05:08 Glucose 187 mg/dL (74-106) H 07/30/22 05:08 Assessment/Plan: 1. Pain: oxycodone?10mg?PO TID PRN pain 6-10. Last dose 07/30/22 for pain 8/10 of the hip. Please continue to?monitor?for increased pain, PRN use,?bowel movements (last 07/29/22)?and respiratory depression.?? 2. Bowel: lactulose 40 gm PO daily. Last dose 07/29/22. Please continue?to?monitor?for bowel movements (last documented 07/29),?flatulence, and increased abdominal pain.?? 3. Atrial fibrillation/DVT prophylaxis/diastolic CHF: metoprolol?50 mg?PO BID, diltiazem CD?120 mg?PO daily,?Eliquis?5 mg?PO BID, and furosemide?80 mg?PO BID. Please continue to?monitor?BP (last 102/51 mmHg), HR (last 63 bpm), weight?gain (last 162.443?kg; BEERS?criteria for?diltiazem),?kidney function, sodium (last?139 mg/dL;?BEERS criteria for furosemide), hemoglobin (last?10.5 mg/dL),?ECHO (last EF 60% 07/14/22) SOB,?and S/S of a blood clot/bleed.?? 4. Hepatic encephalopathy/liver transplant history/fatty liver: lactulose 40 gm daily, Bactrim?DS 0.5 mg?tablet PO daily, tacrolimus 0.5 mg PO BID, and ursodiol 375 mg PO BID.?Please continue to?monitor?for flatulence,?renal?function?and potassium (last 3.6 mg/dL;?BEERS criteria for Bactrim), LFT (last?07/25/22),?jaundice of eyes/skin,?tacrolimus serum (last 8.9 ng/mL 06/19/22)?and?dyspepsia.?? 5. GERD: famotidine?20 mg?PO BID and calcium carbonate 1,000 mg PO Q4H PRN.?Patient?has not received any calcium carbonate?to date.?Please continue to?monitor?delirium?(BEERS criteria of famotidine), diarrhea, constipation, calcium (last?8.3 mg/dL), phosphorus (last 2.9 mg/dL), PRN use of calcium carbonate, and worsening symptoms of GERD.? 6. Muscle spasm: cyclobenzaprine?10 mg?PO TID PRN spasms. Last administered 07/30/22 x1 dose. Please continue to?monitor?for increased sedation and risk of fractures (BEERS criteria), headache, dizziness, and PRN usage.?? 7. Nausea/vomiting: ondansetron?4 mg?ODT PO Q8H PRN nausea. Last administered 07/30/22 x1. Please continue to?monitor?for headache, fatigue, and constipation/diarrhea.?? 8. Hypokalemia: potassium chloride 20?mEq?PO QOD. Please continue to?monitor?potassium levels (last 3.7 mg/dL).? 9. Vitamin D, C, and zinc deficiency: cholecalciferol?125mcg PO daily, ascorbic acid 1000 mg?PO daily, and zinc?220 mg?PO daily.?Please consider ordering a vitamin D level (last 10/2013) if clinically appropriate. Thanks. 10. Insomnia: melatonin?5 mg?PO QHS.?Please continue to monitor for excessive drowsiness. Assessment/Plan for indications treated with psychotropic medications: 1. Anxiety: alprazolam 0.5mg PO TID PRN anxiety. Resident has not received any doses. Please see physician note regarding GDR. Please continue to?monitor?PRN usage,?constipation, confusion, drowsiness, and falls (BEERS criteria).?? Medical chart and medication regimen reviewed. The following medication irregularities or issues were identified: *1. Cholecalciferol?125mcg PO daily.?Please consider ordering a vitamin D level (last 10/2013) if clinically appropriate. Thanks. *2. Augmentin 875mg 1T PO BID thru 08/03/22. I did not see a documented indication for this medication. Please consider adding the indication. Thanks. Date of Note:: 07/30/22
[2022-07-30 17:55] VITALS: BP 146/75; PULSE 69
[2022-07-30] MEDS: MELATONIN 10 MG TABLET 5 MG PO (20:22)
[2022-07-30 21:50] VITALS: O2SAT 97
[2022-07-31] MEDS: Ondansetron ODT 4 MG Tablet PO ×2 (00:50→09:04)
[2022-07-31] MEDS: Amox/Clavulanate 875 MG Tablet PO ×2 (05:39→17:04)
[2022-07-31] MEDS: APIXABAN 5 MG TABLET PO ×2 (05:39→17:05)
[2022-07-31] MEDS: Cholecalciferol (Vit D3) 125 MCG CAPSULE (5,000 UNITS) PO (05:40)
[2022-07-31] MEDS: Ursodiol 250 MG Tablet 375 MG PO ×2 (05:40→17:04)
[2022-07-31] MEDS: Ascorbic Acid 500 MG Tablet 1000 MG PO (05:40)
[2022-07-31 05:41] VITALS: BP 123/65; PULSE 85
[2022-07-31] MEDS: Famotidine 20 MG Tablet PO ×2 (05:41→17:05)
[2022-07-31] MEDS: Metoprolol Tartrate 50 MG Tablet PO ×2 (05:41→17:09)
[2022-07-31] MEDS: Furosemide 80 MG Tablet PO ×2 (05:47→13:12)
[2022-07-31] MEDS: oxyCODONE 5 MG Tablet 10 MG PO ×2 (05:55→14:46)
[2022-07-31] MEDS: Smz/Tmp Ds Tablet 0.5 TABLET PO (08:04)
[2022-07-31] MEDS: Tacrolimus 0.5 MG Capsule PO ×2 (08:05→21:40)
[2022-07-31] MEDS: dilTIAZem CD 120 MG Capsule PO (08:05)
[2022-07-31] MEDS: Lactulose 20 GM/30 ML UDC 40 GM PO (09:35)
[2022-07-31] MEDS: Nystatin Powder 15gm Bottle 1 APPLIC TOPICAL (09:40)
[2022-07-31] MEDS: cycloBENZAPRine HCl 10 MG Tablet PO ×2 (09:55→22:01)
[2022-07-31 13:31] VITALS: BP 109/58; PULSE 65; RESP 20; TEMP 36.1; O2SAT 97
[2022-07-31 17:09] VITALS: BP 126/59; PULSE 59
--- NOTE | 2022-07-31 20:32 | NURSING ---
Addendum entered by Kartik Vazquez 07/31/22 21:44: Patient has extra large BM at this time formed/brown, patient notified of new order from Dr. Bose for Lactulose, patient refuses x1 dose of lactulose states I don't need it now Original Note: Patient reports feeling constipated/hard stools, states I refused my lactulose yesterday and this always happens when I do that. Patient requests Dr. Bose be contacted at this time requesting either another dose of lactulose or oral dulcolax. Dr. Bose contacted via telephone and notified of patient request and refusal of lactulose 07/30. Verbal order received for Lactulose 40gm x1 oral, order repeated back.
[2022-07-31] MEDS: MELATONIN 10 MG TABLET 5 MG PO (21:40)
[2022-08-01] MEDS: oxyCODONE 5 MG Tablet 10 MG PO ×3 (01:29→23:01)
[2022-08-01] MEDS: Ascorbic Acid 500 MG Tablet 1000 MG PO (06:18)
[2022-08-01] MEDS: Furosemide 80 MG Tablet PO ×2 (06:18→14:11)
[2022-08-01] MEDS: Amox/Clavulanate 875 MG Tablet PO ×2 (06:19→17:05)
[2022-08-01] MEDS: Ursodiol 250 MG Tablet 375 MG PO ×2 (06:19→17:05)
[2022-08-01] MEDS: APIXABAN 5 MG TABLET PO ×2 (06:19→17:05)
[2022-08-01] MEDS: Cholecalciferol (Vit D3) 125 MCG CAPSULE (5,000 UNITS) PO (06:19)
[2022-08-01] MEDS: Famotidine 20 MG Tablet PO ×2 (06:21→17:05)
[2022-08-01 06:23] VITALS: BP 114/56; PULSE 72
[2022-08-01] MEDS: Metoprolol Tartrate 50 MG Tablet PO ×2 (06:23→17:04)
[2022-08-01] MEDS: Smz/Tmp Ds Tablet 0.5 TABLET PO (08:00)
[2022-08-01] MEDS: Tacrolimus 0.5 MG Capsule PO ×2 (08:00→21:35)
[2022-08-01] MEDS: dilTIAZem CD 120 MG Capsule PO (08:01)
--- NOTE | 2022-08-01 08:38 | NURSING ---
Benefits Consultant Note; MDS Complete
[2022-08-01] MEDS: Nystatin Powder 15gm Bottle 1 APPLIC TOPICAL ×2 (10:04→21:39)
[2022-08-01] MEDS: Potassium Chloride Oral Tablet 20 MEQ PO (10:05)
[2022-08-01] MEDS: Lactulose 20 GM/30 ML UDC 40 GM PO (10:05)
[2022-08-01] MEDS: cycloBENZAPRine HCl 10 MG Tablet PO ×2 (10:14→17:11)
--- NOTE | 2022-08-01 10:47 | CASEMGMT ---
Social Work IDT met with patient, and dtr for care plan meeting. Discussed patient's progress in PT/OT/SN. Educated to [facility] insurance with NRD 08/06, EDC 08/08; continued stay is not guaranteed with each review. Pts goal is to return home with to continue assisting with tasks. Pt requesting new rollator through [facility]. SW to make referral at time of DC along with continued therapy needs. SW to continue to follow for DC planning. Eunice Bright, PRINT FINISHING WORKER SECURITY GUARD
--- NOTE | 2022-08-01 11:50 | CASEMGMT ---
Social Work BIMS and PHQ-9 completed for MDS assessment. carmita bennett, HOSPITAL ACCOUNT LIAISON SURGERY AIDE
[2022-08-01 14:15] VITALS: BP 131/59; PULSE 64; RESP 18; TEMP 36.3; O2SAT 98
[2022-08-01 17:04] VITALS: BP 131/59; PULSE 64
[2022-08-01 18:32] LABS: Anion Gap 8 (5-15); BUN 40 mg/dL (7-18); BUN/Creat Ratio 20.5 RATIO (10-20); Calcium,Total 8.2 mg/dL (8.5-10.1); Chloride 104 mmol/L (98-107); Creatinine, Serum 1.95 mg/dL (0.70-1.30); EST Glomerular Filtration Rate 37 mL/min (>60); Est Glom Filt Rate - Afr Amer 45 mL/min (>60); Estimated Creatinine Clearance 41.08 ml/min; Glucose 130 mg/dL (74-106); Potassium 3.2 mmol/L (3.5-5.1); Sodium Level 140 mmol/L (136-145)
[2022-08-01] MEDS: Furosemide 100 MG/10 ML Vial 80 MG IV (18:59)
[2022-08-01] MEDS: MELATONIN 10 MG TABLET 5 MG PO (21:35)
[2022-08-01 22:00] VITALS: PULSE 62; RESP 16; O2SAT 98
[2022-08-02 05:54] VITALS: BP 143/60; PULSE 66
[2022-08-02 05:56] VITALS: PULSE 66
[2022-08-02] MEDS: APIXABAN 5 MG TABLET PO ×2 (05:56→17:54)
[2022-08-02] MEDS: Ursodiol 250 MG Tablet 375 MG PO ×2 (05:56→17:54)
[2022-08-02] MEDS: Metoprolol Tartrate 50 MG Tablet PO ×2 (05:56→17:53)
[2022-08-02] MEDS: Amox/Clavulanate 875 MG Tablet PO ×2 (05:56→17:54)
[2022-08-02] MEDS: Famotidine 20 MG Tablet PO ×2 (05:56→18:15)
[2022-08-02] MEDS: Ascorbic Acid 500 MG Tablet 1000 MG PO (05:56)
[2022-08-02] MEDS: Cholecalciferol (Vit D3) 125 MCG CAPSULE (5,000 UNITS) PO (05:56)
[2022-08-02] MEDS: Furosemide 100 MG/10 ML Vial 80 MG IV ×2 (05:57→13:53)
[2022-08-02] MEDS: 0.9% Saline Lock 10 ML Syringe IV ×2 (06:00→13:56)
[2022-08-02 06:03] LABS: Absolute Lymphocyte Count 1.98 X10^3/uL (0.83-4.51); Absolute Neutrophil Count 6.9 X10^3/uL (2.0-7.7); Basophil# 0.01 X10^3/uL; Basophil% 0.1 % (0-1); Eosinophil# 0.16 X10^3/uL; Eosinophils% 1.6 % (0-5); Hematocrit 30.9 % (40-54); Lymphocyte # 1.98 X10^3/ul (0.83-4.51); Lymphocyte % 19.7 % (19-41); Mean Corp Hgb Conc 32.4 g/dL (32-36); Mean Corpuscular Hgb 29.6 pg (27.0-32.0); Mean Corpuscular Volume 91.4 fL (80-94); Monocyte# 0.93 X10^3/uL; Monocyte% 9.2 % (0-10); NRBC Flagged by Analyzer 0 % (0-5); Neutrophil # 6.91 X10^3/uL (2.7-7.7); Neutrophil % 68.6 % (47-70); Platelet Count 305 K/mm3 (150-450); RBC Distribution Width CV 15.1 % (11.6-14.6); RBC Distribution Width SD 49.4 fl (35.1-43.9); Red Blood Count 3.38 M/mm3 (4.6-6.2); White Blood Count 10.1 K/mm3 (4.4-11.0)
[2022-08-02] MEDS: cycloBENZAPRine HCl 10 MG Tablet PO ×2 (06:15→18:05)
[2022-08-02 06:30] LABS: Anion Gap 7 (5-15); BUN 39 mg/dL (7-18); BUN/Creat Ratio 21.7 RATIO (10-20); Calcium,Total 7.7 mg/dL (8.5-10.1); Chloride 105 mmol/L (98-107); EST Glomerular Filtration Rate 41 mL/min (>60); Est Glom Filt Rate - Afr Amer 50 mL/min (>60); Glucose 129 mg/dL (74-106); Sodium Level 140 mmol/L (136-145)
[2022-08-02] MEDS: Smz/Tmp Ds Tablet 0.5 TABLET PO (07:58)
[2022-08-02] MEDS: dilTIAZem CD 120 MG Capsule PO (07:59)
[2022-08-02] MEDS: Tacrolimus 0.5 MG Capsule PO ×2 (08:00→21:55)
[2022-08-02] MEDS: Potassium Chloride Oral Tablet 20 MEQ 40 MEQ PO (08:03)
[2022-08-02] MEDS: oxyCODONE 5 MG Tablet 10 MG PO ×2 (08:35→22:04)
[2022-08-02 10:00] VITALS: PULSE 61; O2SAT 97
[2022-08-02] MEDS: Lactulose 20 GM/30 ML UDC 40 GM PO (10:07)
[2022-08-02] MEDS: Tuberculin,Purif.prot.deriv. 50 TU/ML Vial 0.1 ML ID (10:09)
[2022-08-02] MEDS: Nystatin Powder 15gm Bottle 1 APPLIC TOPICAL ×2 (10:09→22:12)
[2022-08-02] MEDS: Ondansetron ODT 4 MG Tablet PO (11:30)
[2022-08-02 14:39] VITALS: BP 135/58; PULSE 62; RESP 16; TEMP 36.6; O2SAT 95
[2022-08-02 17:53] VITALS: BP 135/58; PULSE 62
[2022-08-02] MEDS: Potassium Chloride Oral Tablet 20 MEQ PO (17:54)
[2022-08-02] MEDS: MELATONIN 10 MG TABLET 5 MG PO (21:55)
--- NOTE | 2022-08-02 22:08 | NURSING ---
Patient c/o pain and virginie fingers in left hand. Pain has subsided and fingers are moving without difficulty. Patient currently getting IV lasix bid. Encourage fluids. Will continue to monitor.
[2022-08-03] MEDS: oxyCODONE 5 MG Tablet 10 MG PO ×2 (05:02→12:03)
[2022-08-03] MEDS: Furosemide 100 MG/10 ML Vial 80 MG IV (05:03)
[2022-08-03] MEDS: APIXABAN 5 MG TABLET PO ×2 (05:03→18:03)
[2022-08-03] MEDS: Potassium Chloride Oral Tablet 20 MEQ PO ×2 (05:08→18:03)
[2022-08-03] MEDS: Ursodiol 250 MG Tablet 375 MG PO ×2 (05:08→18:03)
[2022-08-03] MEDS: Amox/Clavulanate 875 MG Tablet PO (05:08)
[2022-08-03 05:09] VITALS: BP 144/62; PULSE 73
[2022-08-03] MEDS: Famotidine 20 MG Tablet PO ×2 (05:09→18:03)
[2022-08-03] MEDS: Metoprolol Tartrate 50 MG Tablet PO ×2 (05:09→18:03)
[2022-08-03] MEDS: Ascorbic Acid 500 MG Tablet 1000 MG PO (05:10)
[2022-08-03] MEDS: Cholecalciferol (Vit D3) 125 MCG CAPSULE (5,000 UNITS) PO (05:10)
--- NOTE | 2022-08-03 05:36 | NURSING ---
Patient c/o moderate to severe pain in feet, ankles. Continues to have pain in right hip. PRN oxycodone administered. Warm blanket applied to feet and ankles. Will continue to monitor.
--- NOTE | 2022-08-03 05:37 | NURSING ---
Patient requests that Potassium, Augmentin be broken in half and administered in applesauce. Able to swallow without difficulty when administered this way. Will continue to monitor.
[2022-08-03 06:09] LABS: Anion Gap 5 (5-15); BUN 35 mg/dL (7-18); BUN/Creat Ratio 19.3 RATIO (10-20); Calcium,Total 7.8 mg/dL (8.5-10.1); Chloride 104 mmol/L (98-107); Creatinine, Serum 1.81 mg/dL (0.70-1.30); EST Glomerular Filtration Rate 41 mL/min (>60); Est Glom Filt Rate - Afr Amer 49 mL/min (>60); Estimated Creatinine Clearance 44.25 ml/min; Glucose 148 mg/dL (74-106); Potassium 3.9 mmol/L (3.5-5.1); Sodium Level 140 mmol/L (136-145)
[2022-08-03] MEDS: Smz/Tmp Ds Tablet 0.5 TABLET PO (08:21)
[2022-08-03] MEDS: dilTIAZem CD 120 MG Capsule PO (08:21)
[2022-08-03] MEDS: Tacrolimus 0.5 MG Capsule PO ×2 (08:21→20:52)
--- NOTE | 2022-08-03 08:50 | RAD_ITS ---
STUDY: X-RAY CHEST REASON FOR EXAM: Male, 61 years old. [place]. TECHNIQUE: AP and lateral views of the chest. COMPARISON: Comparison is made with prior study dated 07/20/2022. FINDINGS: The lungs are clear and expanded. There is no demonstrated pleural abnormality. There is borderline cardiomegaly. Normal mediastinum and debora. Normal visualized pulmonary arteries. Normal visualized aortic arch and descending thoracic aorta. There is demineralization of the osseous structures. Status post left shoulder replacement. There is no demonstrated abnormality of the visualized soft tissue structures of the upper abdomen. RAD/Chest PA and Lateral IMPRESSION: Borderline cardiomegaly. The lungs are clear. Electronically Signed: Pelon Graham MD at 13:56 EST ,
[2022-08-03 09:57] LABS: Bacteria 0 SEEN /hpf (None Seen); Mucous, Urine 0 SEEN /hpf (<or=2+); Red Blood Cells-Urine 0 SEEN /hpf (0-5); Squamous Epithelial Cells - UA 0 SEEN /hpf (0-5); White Blood Cells 0 SEEN /hpf (0-5)
[2022-08-03 10:11] LABS: Color, Urine Yellow (Yellow); Glucose, Dipstick Normal (Normal); Ketone-Dipstick Negative (Negative); Leukocyte Esterase-Dipstick Negative /ul (Negative); Nitrite-Dipstick Negative (Negative); Occult Blood-Urine 10 /ul (Negative); Protein-Dipstick Negative (Negative); Specific Gravity, Urine 1.015 (1.002-1.030); Urine Bilirubin Dipstick Negative (Negative); Urine Clarity Clear (Clear); Urine Urobilinogen Normal (Normal)
[2022-08-03] MEDS: Lactulose 20 GM/30 ML UDC 40 GM PO (10:50)
[2022-08-03] MEDS: cycloBENZAPRine HCl 10 MG Tablet PO (10:52)
[2022-08-03] MEDS: Nystatin Powder 15gm Bottle 1 APPLIC TOPICAL ×2 (10:59→20:54)
[2022-08-03] MEDS: 0.9% Saline Lock 10 ML Syringe IV (13:54)
[2022-08-03] MEDS: Furosemide 40 MG/4 ML Vial IV (13:54)
[2022-08-03 14:27] VITALS: BP 120/52; PULSE 68; RESP 16; TEMP 36.3; O2SAT 95
[2022-08-03] MEDS: Pregabalin 50 MG Capsule PO ×2 (14:52→20:52)
--- NOTE | 2022-08-03 14:59 | NURSING ---
pt c/o bilat leg pain even since being admitted to hospital, feels it may be neuropathy, in past was on neurontin but had adverse reaction. Dr aburto updated, new order to try lyrica. pt updated and agreed.
[2022-08-03 18:03] VITALS: PULSE 68
[2022-08-03] MEDS: MELATONIN 10 MG TABLET 5 MG PO (20:51)
[2022-08-03 21:56] VITALS: PULSE 65; RESP 16; O2SAT 99
[2022-08-04] MEDS: oxyCODONE 5 MG Tablet 10 MG PO ×2 (01:11→11:49)
[2022-08-04] MEDS: cycloBENZAPRine HCl 10 MG Tablet PO ×3 (02:20→20:57)
[2022-08-04] MEDS: Furosemide 40 MG/4 ML Vial IV ×2 (06:26→14:05)
[2022-08-04] MEDS: Ascorbic Acid 500 MG Tablet 1000 MG PO (06:36)
[2022-08-04] MEDS: Cholecalciferol (Vit D3) 125 MCG CAPSULE (5,000 UNITS) PO (06:36)
[2022-08-04] MEDS: Ursodiol 250 MG Tablet 375 MG PO ×2 (06:36→17:45)
[2022-08-04 06:37] VITALS: BP 138/61; PULSE 77
[2022-08-04] MEDS: Metoprolol Tartrate 50 MG Tablet PO ×2 (06:37→17:44)
[2022-08-04] MEDS: Potassium Chloride Oral Tablet 20 MEQ PO ×2 (06:38→17:43)
[2022-08-04] MEDS: APIXABAN 5 MG TABLET PO ×2 (06:38→17:44)
[2022-08-04] MEDS: Famotidine 20 MG Tablet PO ×2 (06:38→17:44)
[2022-08-04] MEDS: Pregabalin 50 MG Capsule PO ×3 (06:42→20:59)
[2022-08-04 08:33] LABS: Anion Gap 5 (5-15); BUN 29 mg/dL (7-18); BUN/Creat Ratio 16.7 RATIO (10-20); Calcium,Total 7.9 mg/dL (8.5-10.1); Chloride 104 mmol/L (98-107); Creatinine, Serum 1.74 mg/dL (0.70-1.30); EST Glomerular Filtration Rate 43 mL/min (>60); Est Glom Filt Rate - Afr Amer 52 mL/min (>60); Estimated Creatinine Clearance 46.03 ml/min; Glucose 147 mg/dL (74-106); Sodium Level 138 mmol/L (136-145)
[2022-08-04] MEDS: Smz/Tmp Ds Tablet 0.5 TABLET PO (08:39)
[2022-08-04] MEDS: dilTIAZem CD 120 MG Capsule PO (08:39)
[2022-08-04] MEDS: Tacrolimus 0.5 MG Capsule PO ×2 (08:39→20:58)
[2022-08-04] MEDS: Lactulose 20 GM/30 ML UDC 40 GM PO (08:40)
[2022-08-04] MEDS: Nystatin Powder 15gm Bottle 1 APPLIC TOPICAL ×2 (08:42→21:03)
[2022-08-04] MEDS: 0.9% Saline Lock 10 ML Syringe IV (14:08)
[2022-08-04 14:19] VITALS: BP 123/47; PULSE 68
[2022-08-04 17:44] VITALS: PULSE 75
[2022-08-04] MEDS: MELATONIN 10 MG TABLET 5 MG PO (20:59)
[2022-08-05] MEDS: oxyCODONE 5 MG Tablet 10 MG PO (00:08)
[2022-08-05] MEDS: Pregabalin 50 MG Capsule PO ×3 (05:59→22:52)
[2022-08-05] MEDS: APIXABAN 5 MG TABLET PO ×2 (06:00→17:22)
[2022-08-05] MEDS: Cholecalciferol (Vit D3) 125 MCG CAPSULE (5,000 UNITS) PO (06:00)
[2022-08-05] MEDS: Famotidine 20 MG Tablet PO ×2 (06:00→17:23)
[2022-08-05 06:01] VITALS: BP 131/57; PULSE 68
[2022-08-05] MEDS: Ursodiol 250 MG Tablet 375 MG PO ×2 (06:01→17:23)
[2022-08-05] MEDS: Metoprolol Tartrate 50 MG Tablet PO ×2 (06:01→17:21)
[2022-08-05] MEDS: Ascorbic Acid 500 MG Tablet 1000 MG PO (06:02)
[2022-08-05] MEDS: Furosemide 40 MG/4 ML Vial IV ×2 (06:51→14:45)
[2022-08-05] MEDS: 0.9% Saline Lock 10 ML Syringe IV ×2 (06:51→14:45)
[2022-08-05 08:14] LABS: Anion Gap 4 (5-15); BUN 28 mg/dL (7-18); BUN/Creat Ratio 15.1 RATIO (10-20); Chloride 101 mmol/L (98-107); Creatinine, Serum 1.85 mg/dL (0.70-1.30); EST Glomerular Filtration Rate 40 mL/min (>60); Est Glom Filt Rate - Afr Amer 48 mL/min (>60); Glucose 168 mg/dL (74-106); Potassium 3.6 mmol/L (3.5-5.1); Sodium Level 135 mmol/L (136-145)
[2022-08-05] MEDS: Potassium Chloride Oral Tablet 20 MEQ PO ×2 (08:35→17:22)
[2022-08-05] MEDS: dilTIAZem CD 120 MG Capsule PO (08:35)
[2022-08-05] MEDS: Smz/Tmp Ds Tablet 0.5 TABLET PO (08:36)
[2022-08-05] MEDS: Tacrolimus 0.5 MG Capsule PO ×2 (08:40→22:54)
[2022-08-05] MEDS: Lactulose 20 GM/30 ML UDC 40 GM PO (10:42)
[2022-08-05] MEDS: Nystatin Powder 15gm Bottle 1 APPLIC TOPICAL ×2 (10:44→23:03)
[2022-08-05 14:00] VITALS: BP 136/61; PULSE 71; RESP 18; TEMP 36.7; O2SAT 95
[2022-08-05 17:21] VITALS: PULSE 72
[2022-08-05] MEDS: MELATONIN 10 MG TABLET 5 MG PO (22:52)
[2022-08-05 23:00] VITALS: PULSE 80; RESP 18; O2SAT 96
[2022-08-06] VITALS (7 sets, daily range): BP systolic 99–124; BP diastolic 45–63; PULSE 64–74; RESP 18; TEMP 36.3; O2SAT 95–97
[2022-08-06] MEDS: oxyCODONE 5 MG Tablet 10 MG PO ×2 (01:45→13:10)
[2022-08-06 06:30] LABS: Anion Gap 3 (5-15); BUN 26 mg/dL (7-18); BUN/Creat Ratio 13.9 RATIO (10-20); Calcium,Total 8.5 mg/dL (8.5-10.1); Chloride 102 mmol/L (98-107); Creatinine, Serum 1.87 mg/dL (0.70-1.30); EST Glomerular Filtration Rate 39 mL/min (>60); Est Glom Filt Rate - Afr Amer 47 mL/min (>60); Estimated Creatinine Clearance 42.83 ml/min; Glucose 165 mg/dL (74-106); Potassium 3.9 mmol/L (3.5-5.1); Sodium Level 135 mmol/L (136-145)
[2022-08-06] MEDS: Pregabalin 50 MG Capsule PO ×3 (06:44→21:17)
[2022-08-06] MEDS: APIXABAN 5 MG TABLET PO ×2 (06:45→18:14)
[2022-08-06] MEDS: Ursodiol 250 MG Tablet 375 MG PO ×2 (06:46→18:16)
[2022-08-06] MEDS: Cholecalciferol (Vit D3) 125 MCG CAPSULE (5,000 UNITS) PO (06:47)
[2022-08-06] MEDS: Ascorbic Acid 500 MG Tablet 1000 MG PO (06:48)
[2022-08-06] MEDS: Furosemide 40 MG/4 ML Vial IV ×2 (06:53→14:39)
[2022-08-06] MEDS: Famotidine 20 MG Tablet PO ×2 (06:53→18:16)
[2022-08-06] MEDS: Smz/Tmp Ds Tablet 0.5 TABLET PO (08:45)
[2022-08-06] MEDS: Potassium Chloride Oral Tablet 20 MEQ PO ×2 (08:46→18:14)
[2022-08-06] MEDS: dilTIAZem CD 120 MG Capsule PO (08:46)
[2022-08-06] MEDS: Tacrolimus 0.5 MG Capsule PO ×2 (08:47→21:17)
[2022-08-06] MEDS: cycloBENZAPRine HCl 10 MG Tablet PO (10:25)
[2022-08-06] MEDS: 0.9% Saline Lock 10 ML Syringe IV ×2 (10:33→14:39)
[2022-08-06] MEDS: Nystatin Powder 15gm Bottle 1 APPLIC TOPICAL ×2 (10:36→21:18)
--- NOTE | 2022-08-06 15:57 | NURSING ---
PT STILL COMPLAINING OF PAIN AND SWELLING IN BLLE AND SWELLING IN LET ARM STATED IT WAS NEW. EXPLAINED TO PT HE HAD THE SWELLING IN THE LEFT ARM 2 WEEKS AGO. PT STATED MY SWELLING IN BLLE HAS GOTTEN WORSE AND NOTHING IS HELPING,I WANT THE PREDNISONE BACK. STATED TO PT STARTED PT ON Saturday. PT STATED WELL ITS NOT HELPING,I HAD A DOCTOR IN [place] THAT GAVE ME AMOXICILLIN AND THE PAIN AND SWELLING WENT AWAY. STATED TO PT I WOULD LET KNOW. RN AWARE
[2022-08-06] MEDS: Lactulose 20 GM/30 ML UDC 40 GM PO (18:14)
[2022-08-06] MEDS: Metoprolol Tartrate 50 MG Tablet PO (18:19)
[2022-08-06] MEDS: MethylPREDNISolone DosePak 4 MG BOX PO (21:16)
[2022-08-06] MEDS: MELATONIN 10 MG TABLET 5 MG PO (21:17)
[2022-08-07 06:08] LABS: Anion Gap 6 (5-15); BUN 25 mg/dL (7-18); Calcium,Total 8.6 mg/dL (8.5-10.1); Chloride 101 mmol/L (98-107); Creatinine, Serum 2.08 mg/dL (0.70-1.30); EST Glomerular Filtration Rate 35 mL/min (>60); Est Glom Filt Rate - Afr Amer 42 mL/min (>60); Estimated Creatinine Clearance 38.51 ml/min; Glucose 263 mg/dL (74-106); Potassium 4.5 mmol/L (3.5-5.1); Sodium Level 135 mmol/L (136-145)
[2022-08-07] MEDS: Lactulose 20 GM/30 ML UDC 40 GM PO ×2 (06:21→18:23)
[2022-08-07] MEDS: Ascorbic Acid 500 MG Tablet 1000 MG PO (06:22)
[2022-08-07] MEDS: Ursodiol 250 MG Tablet 375 MG PO ×2 (06:22→18:23)
[2022-08-07 06:23] VITALS: BP 147/62; PULSE 65
[2022-08-07] MEDS: Cholecalciferol (Vit D3) 125 MCG CAPSULE (5,000 UNITS) PO (06:23)
[2022-08-07] MEDS: Famotidine 20 MG Tablet PO ×2 (06:23→18:24)
[2022-08-07] MEDS: Metoprolol Tartrate 50 MG Tablet PO ×2 (06:23→18:25)
[2022-08-07] MEDS: APIXABAN 5 MG TABLET PO ×2 (06:23→18:25)
[2022-08-07] MEDS: Pregabalin 50 MG Capsule PO ×3 (06:28→21:55)
[2022-08-07] MEDS: 0.9% Saline Lock 10 ML Syringe IV ×3 (06:51→22:04)
[2022-08-07] MEDS: Furosemide 40 MG/4 ML Vial IV (06:52)
[2022-08-07] MEDS: Smz/Tmp Ds Tablet 0.5 TABLET PO (09:12)
[2022-08-07] MEDS: MethylPREDNISolone DosePak 4 MG BOX PO ×4 (09:13→21:58)
[2022-08-07] MEDS: Potassium Chloride Oral Tablet 20 MEQ PO ×2 (09:13→18:25)
[2022-08-07] MEDS: dilTIAZem CD 120 MG Capsule PO (09:13)
[2022-08-07] MEDS: Tacrolimus 0.5 MG Capsule PO ×2 (09:14→21:56)
[2022-08-07 09:26] VITALS: BP 135/57; PULSE 63
[2022-08-07 10:00] VITALS: PULSE 72; RESP 18; O2SAT 97
[2022-08-07] MEDS: Nystatin Powder 15gm Bottle 1 APPLIC TOPICAL (11:22)
--- NOTE | 2022-08-07 13:40 | NURSING ---
Updated Dr Bose on increased weight and ongoing edema in left arm/BLE. No new orders, per Dr. Bose lasix had been decreased with concern for kidney function.
[2022-08-07 14:00] VITALS: BP 125/56; PULSE 71; RESP 14; TEMP 36.6; O2SAT 96
[2022-08-07] MEDS: Furosemide 40 MG Tablet PO (14:05)
[2022-08-07 18:25] VITALS: BP 125/56; PULSE 71
[2022-08-07] MEDS: MELATONIN 10 MG TABLET 5 MG PO (21:57)
[2022-08-07] MEDS: oxyCODONE 5 MG Tablet 10 MG PO (23:55)
[2022-08-08] MEDS: cycloBENZAPRine HCl 10 MG Tablet PO (01:06)
[2022-08-08] MEDS: Pregabalin 50 MG Capsule PO ×3 (05:33→21:42)
[2022-08-08] MEDS: Ursodiol 250 MG Tablet 375 MG PO ×2 (05:36→17:35)
[2022-08-08] MEDS: Ascorbic Acid 500 MG Tablet 1000 MG PO (05:36)
[2022-08-08] MEDS: Famotidine 20 MG Tablet PO ×2 (05:36→17:35)
[2022-08-08] MEDS: APIXABAN 5 MG TABLET PO ×2 (05:36→17:34)
[2022-08-08 05:37] VITALS: BP 110/48; PULSE 65
[2022-08-08] MEDS: Cholecalciferol (Vit D3) 125 MCG CAPSULE (5,000 UNITS) PO (05:37)
[2022-08-08] MEDS: Furosemide 40 MG Tablet PO (05:37)
[2022-08-08] MEDS: Metoprolol Tartrate 50 MG Tablet PO ×2 (05:37→17:34)
[2022-08-08 06:08] LABS: Anion Gap 5 (5-15); BUN 33 mg/dL (7-18); BUN/Creat Ratio 14.9 RATIO (10-20); Calcium,Total 8.7 mg/dL (8.5-10.1); Chloride 101 mmol/L (98-107); Creatinine, Serum 2.22 mg/dL (0.70-1.30); EST Glomerular Filtration Rate 32 mL/min (>60); Est Glom Filt Rate - Afr Amer 39 mL/min (>60); Estimated Creatinine Clearance 36.08 ml/min; Glucose 282 mg/dL (74-106); Potassium 4.9 mmol/L (3.5-5.1); Sodium Level 134 mmol/L (136-145)
[2022-08-08] MEDS: dilTIAZem CD 120 MG Capsule PO (07:55)
[2022-08-08] MEDS: Potassium Chloride Oral Tablet 20 MEQ PO ×2 (07:55→17:34)
[2022-08-08] MEDS: Tacrolimus 0.5 MG Capsule PO ×2 (07:55→21:36)
[2022-08-08] MEDS: Smz/Tmp Ds Tablet 0.5 TABLET PO (07:56)
[2022-08-08] MEDS: MethylPREDNISolone DosePak 4 MG BOX PO ×4 (07:56→21:36)
[2022-08-08] MEDS: Nystatin Powder 15gm Bottle 1 APPLIC TOPICAL ×2 (09:36→21:38)
[2022-08-08] MEDS: 0.9% Saline Lock 10 ML Syringe IV (09:40)
--- NOTE | 2022-08-08 09:43 | NURSING ---
updated r' on new orders from this am. agreeable.
[2022-08-08 14:00] VITALS: BP 130/59; PULSE 58; RESP 18; TEMP 36.3; O2SAT 97
[2022-08-08 17:33] VITALS: PULSE 66
[2022-08-08 17:34] VITALS: PULSE 66
[2022-08-08] MEDS: oxyCODONE 5 MG Tablet 10 MG PO (17:49)
[2022-08-08 18:24] LABS: Absolute Lymphocyte Count 1.06 X10^3/uL (0.83-4.51); Absolute Neutrophil Count 17.2 X10^3/uL (2.0-7.7); Basophil# 0.02 X10^3/uL; Basophil% 0.1 % (0-1); Hemoglobin 10.9 g/dL (13.0-16.5); Lymphocyte # 1.06 X10^3/ul (0.83-4.51); Lymphocyte % 5.6 % (19-41); Mean Corp Hgb Conc 32.1 g/dL (32-36); Mean Corpuscular Hgb 28.8 pg (27.0-32.0); Mean Corpuscular Volume 89.7 fL (80-94); Mean Platelet Vol. 10.2 fl (6.2-12.0); Monocyte# 0.65 X10^3/uL; Monocyte% 3.4 % (0-10); NRBC Flagged by Analyzer 0 % (0-5); Neutrophil % 90.1 % (47-70); Platelet Count 282 K/mm3 (150-450); RBC Distribution Width CV 14.6 % (11.6-14.6); RBC Distribution Width SD 47.2 fl (35.1-43.9); Red Blood Count 3.79 M/mm3 (4.6-6.2); White Blood Count 19.1 K/mm3 (4.4-11.0)
[2022-08-08 18:43] LABS: Erythrocyte Sedimentation Rate 58 mm/hr (0-20)
[2022-08-08 19:02] LABS: Anion Gap 6 (5-15); BUN 39 mg/dL (7-18); BUN/Creat Ratio 15.9 RATIO (10-20); Chloride 101 mmol/L (98-107); Creatinine, Serum 2.46 mg/dL (0.70-1.30); EST Glomerular Filtration Rate 29 mL/min (>60); Est Glom Filt Rate - Afr Amer 35 mL/min (>60); Estimated Creatinine Clearance 32.56 ml/min; Glucose 367 mg/dL (74-106); Potassium 4.9 mmol/L (3.5-5.1); Sodium Level 132 mmol/L (136-145)
--- NOTE | 2022-08-08 19:17 | NURSING ---
R' AWARE OF FLUID RESTRICTION. THIS NURSE AND GASTROENTEROLOGY MANAGER EXPLAINED IMPORTANCE OF ADHERING TO RESTRICTION. R' STILL DEMANDING COKE/WATER/ICE. WILL CONT TO ENCOURAGE COMPLIANCE WITH ORDER.
[2022-08-08] MEDS: MELATONIN 10 MG TABLET 5 MG PO (21:39)
[2022-08-08 21:50] LABS: Bedside Glucose 414 mg/dL (74-106)
--- NOTE | 2022-08-08 21:53 | NURSING ---
Addendum entered by Kartik Vazquez 08/09/22 00:43: patient education initiated regarding new orders from , how to use insulin pen, importance of monitoring blood glucose levels prior to administration, carb control diet. Continued education regarding fluid restriction. Patient encouraged to ask questions at any time. Patient verbalizes understanding. A&Ox3. Addendum entered by Kartik Vazquez 08/08/22 22:10: Received returned phone call from from regarding blood glucose 414, notified of patient stating he has been drinking coke, and eating pizza and skittles. Discussed with patient foods/drinks that lead to increased blood glucose, patient verbalized understanding. Verbal orders received from : 1. Insulin glargine 20 units QHS, give tonight 2.Humalog 7 units RTN with meals 3. Add uric acid to labs 4. add carb control to diet All orders repeated back to Dr. Bose Original Note: human resources compensation analyst notified this nurse regarding blood glucose level, paged at this time, awaiting return call
[2022-08-08 23:13] LABS: Uric Acid 11.3 mg/dL (3.5-7.2)
[2022-08-08] MEDS: Insulin Glargine-YFGN 100 UNIT/ML Pen 20 UNIT SC (23:25)
[2022-08-09] MEDS: ALPRAZolam 0.5 MG Tablet PO (01:26)
[2022-08-09] MEDS: cycloBENZAPRine HCl 10 MG Tablet PO (01:26)
--- NOTE | 2022-08-09 01:26 | NURSING ---
PRN Xanax and flexeril administered per pt. request. When patient asked cause of anxiety, patient states I don't know, I just have anxiety sometimes. 1:1 provided. Encouraged to express wants and needs. No distress observe or reported. Presents in bed, watching television. No distress observed or reported. Call light in reach.
[2022-08-09] MEDS: APIXABAN 5 MG TABLET PO ×2 (05:38→17:00)
[2022-08-09] MEDS: Lactulose 20 GM/30 ML UDC 40 GM PO ×2 (05:39→16:59)
[2022-08-09] MEDS: Pregabalin 50 MG Capsule PO (05:39)
[2022-08-09 05:40] VITALS: BP 115/55; PULSE 60
[2022-08-09] MEDS: Metoprolol Tartrate 50 MG Tablet PO ×2 (05:40→17:00)
[2022-08-09] MEDS: Famotidine 20 MG Tablet PO ×2 (05:41→17:00)
[2022-08-09] MEDS: Ursodiol 250 MG Tablet 375 MG PO ×2 (05:41→16:59)
[2022-08-09] MEDS: Cholecalciferol (Vit D3) 125 MCG CAPSULE (5,000 UNITS) PO (05:41)
[2022-08-09] MEDS: Ascorbic Acid 500 MG Tablet 1000 MG PO (05:42)
[2022-08-09] MEDS: 0.9% Saline Lock 10 ML Syringe IV ×2 (05:46→20:59)
[2022-08-09 05:47] LABS: Absolute Lymphocyte Count 1.01 X10^3/uL (0.83-4.51); Absolute Neutrophil Count 14.4 X10^3/uL (2.0-7.7); Basophil# 0.02 X10^3/uL; Basophil% 0.1 % (0-1); Hematocrit 32.8 % (40-54); Lymphocyte # 1.01 X10^3/ul (0.83-4.51); Lymphocyte % 6.3 % (19-41); Mean Corp Hgb Conc 33.5 g/dL (32-36); Mean Corpuscular Hgb 29.8 pg (27.0-32.0); Mean Corpuscular Volume 88.9 fL (80-94); Mean Platelet Vol. 10.3 fl (6.2-12.0); Monocyte% 3.1 % (0-10); NRBC Flagged by Analyzer 0 % (0-5); Neutrophil # 14.37 X10^3/uL (2.7-7.7); Neutrophil % 89.8 % (47-70); Platelet Count 268 K/mm3 (150-450); RBC Distribution Width CV 14.6 % (11.6-14.6); RBC Distribution Width SD 47.3 fl (35.1-43.9); Red Blood Count 3.69 M/mm3 (4.6-6.2)
[2022-08-09 06:18] LABS: Anion Gap 5 (5-15); BUN 44 mg/dL (7-18); BUN/Creat Ratio 20.5 RATIO (10-20); Chloride 103 mmol/L (98-107); Creatinine, Serum 2.15 mg/dL (0.70-1.30); EST Glomerular Filtration Rate 33 mL/min (>60); Est Glom Filt Rate - Afr Amer 40 mL/min (>60); Estimated Creatinine Clearance 37.25 ml/min; Glucose 253 mg/dL (74-106); Potassium 4.9 mmol/L (3.5-5.1); Sodium Level 134 mmol/L (136-145)
[2022-08-09 06:56] LABS: Bedside Glucose 218 mg/dL (74-106)
[2022-08-09] MEDS: Smz/Tmp Ds Tablet 0.5 TABLET PO (08:14)
[2022-08-09] MEDS: dilTIAZem CD 120 MG Capsule PO (08:15)
[2022-08-09] MEDS: MethylPREDNISolone DosePak 4 MG BOX PO ×3 (08:15→20:58)
[2022-08-09] MEDS: Potassium Chloride Oral Tablet 20 MEQ PO ×2 (08:15→17:04)
[2022-08-09] MEDS: Insulin Lispro 100 UNIT/ML INSULN.PEN 7 UNIT SC ×3 (09:55→17:16)
[2022-08-09] MEDS: Tacrolimus 0.5 MG Capsule PO ×2 (09:56→20:56)
[2022-08-09] MEDS: Nystatin Powder 15gm Bottle 1 APPLIC TOPICAL (09:59)
[2022-08-09] MEDS: Colchicine 0.6 MG TABLET PO (10:53)
[2022-08-09 12:05] LABS: Bedside Glucose 219 mg/dL (74-106)
[2022-08-09] MEDS: Ondansetron ODT 4 MG Tablet PO (12:51)
[2022-08-09 15:30] VITALS: BP 125/71; PULSE 68; RESP 16; TEMP 35.9; O2SAT 94
--- NOTE | 2022-08-09 15:30 | CASEMGMT ---
Addendum entered by Eunice Bright 08/10/22 13:37: requested [facility] Referral made via phone to [facility] and can accept with SOC 08/15. Addendum entered by Eunice Bright 08/10/22 08:47: Received notification from [facility] that appeal was filed. Sent medical records request to HIM. Clinicals sent to [facility]. Case # [id number] Will continue to follow. Original Note: Social Work Insurance issued LCD 08/12, DC 08/13. Spoke with pt and in room. Educated dto DC date. Pt/ expressed concerns with not following through with monitoring for changes in medication changes. Reportedly, a new medication is being started on 08/12. Educated to appeal rights. Both expressed interest in appealing. SW explained still having DC plan in place. Pt would DC home with with HHC and new rollator. Pt stated he received all DME through [facility]. Contacted [place] at [employer] and received a w/c in 2020, but will still run rollator through insurance. Educated pt that rollator may not be covered by insurance - if it is covered by insurance, it is still a $60 OOP cost. Pt agreeable to pay OOP for the rollator. SW provided printed list of skilled [facility] agencies with quality and resource data via [employer]. to review and make selection. SW faxed referral for rollator to [facility]. Plan: DC home with 08/13, [facility] PT/OT/SN, rollator NABEEL Meier
[2022-08-09 17:00] VITALS: PULSE 80
[2022-08-09 17:10] LABS: Bedside Glucose 242 mg/dL (74-106)
--- NOTE | 2022-08-09 19:55 | PCM.DC.SUM ---
Providers Date of Admission: 07/25/22 Primary Care Physician: Dr. Raul Uribe MD Reason For Visit: AFIB WITH RVR Diagnosis Discharge Diagnosis (1) Debility: Status: Acute Code(s): R53.81 - Other malaise (2) Acute kidney injury: Status: Acute Code(s): N17.9 - Acute kidney failure, unspecified (3) Atrial fibrillation with rapid ventricular response: Status: Acute Code(s): I48.91 - Unspecified atrial fibrillation (4) Near syncope: Status: Acute Code(s): R55 - Syncope and collapse (5) SVT (supraventricular tachycardia): Status: Acute Code(s): I47.1 - Supraventricular tachycardia (6) Acute on chronic diastolic (congestive) heart failure: Status: Chronic Code(s): I50.33 - Acute on chronic diastolic (congestive) heart failure (7) Morbid obesity: Status: Acute Code(s): E66.01 - Morbid (severe) obesity due to excess calories (8) FELIPE (nonalcoholic steatohepatitis): Status: Acute Code(s): K75.81 - Nonalcoholic steatohepatitis (FELIPE) (9) Chronic kidney disease, stage 3a: Status: Chronic Code(s): N18.31 - Chronic kidney disease, stage 3a (10) Hepatic encephalopathy: Status: Acute Code(s): K76.82 - Hepatic encephalopathy (11) Anxiety: Status: Acute Code(s): F41.9 - Anxiety disorder, unspecified (12) Hypokalemia: Status: Acute Code(s): E87.6 - Hypokalemia (13) Insomnia: Status: Acute Code(s): G47.00 - Insomnia, unspecified (14) Nausea: Status: Acute Code(s): R11.0 - Nausea Plan 61 year old male with below past medical history hospitalized for atrial fibrillation with rapid ventricular response, complicated by acute kidney injury, acute on chronic diastolic congestive heart failure, admitted to TCU with debility, here for rehabilitation, strengthening, prior to discharge home with . Debility - PT/OT. Pain - Oxycodone 10mg tid. Bowel - Lactulose 20gm bid. Adult immunization - Administer pneumonia vaccine, covid19 vaccine, flu vaccine as appropriate. DVT prophylaxis - Not necessary, Eliquis 5mg bid. Anxiety - Xanax 0.5mg daily prn, stable chronic manager long term care use, GDR not recommended. Atrial fibrillation - Metoprolol 50mg bid, Diltiazem CD 120mg daily, Eliquis 5mg bid. Vitamin C deficiency - Vitamin C 1000mg daily. Muscle spasm - Flexeril 10mg tid prn. GERD - Famotidine 20mg bid. Chronic diastolic congestive heart failure - Metoprolol 50mg bid, Fuorsemide 40mg bid. Hepatic encephalopathy - Lactulose 20gm bid. Insomnia - Melatonin 5mg qhs. Bilateral foot osteoarthritis - Medrol dose pack. Tinea Corporis - Nystatin powder topical bid. Hypokalemia - KCL 20meq every other day. Hx liver transplant - Bactrim DS 1/2 tablet daily, Tacolimus 0.5mg bid. Fatty liver - Ursodiol 375mg bid. Vitamin D deficiency - D3 125mcg daily. Zinc deficiency - Zinc 220mg daily. Medications at Discharge Home Medications cholecalciferol (vitamin D3) 125 mcg (5,000 unit) capsule 5,000 unit PO DAILY supplement 04/07/19 ursodiol 250 mg tablet (PAT 250) 375 mg PO BID GALLSTONES 04/07/19 potassium chloride 10 mEq tablet,extended release(part/cryst) 20 meq PO QODAY supplement 01/19/21 ascorbic acid (vitamin C) 1,000 mg tablet (Vitamin C) 1,000 mg PO DAILY SUPPLEMENT 06/19/22 cyclobenzaprine 10 mg tablet 10 mg PO TID PRN Spasms 06/19/22 melatonin 5 mg tablet 5 mg PO QHS SLEEP 06/19/22 ondansetron 4 mg disintegrating tablet 4 mg PO Q8H PRN Nausea 06/19/22 sulfamethoxazole 400 mg-trimethoprim 80 mg tablet 1 tab PO DAILY LIVER TRANSPLANT 06/19/22 zinc acetate 50 mg (zinc) capsule 50 mg PO DAILY SUPPLEMENT 06/19/22 tacrolimus 0.5 mg capsule, immediate-release 0.5 mg PO 0900,2100 IMMUNE #60 caps 06/21/22 apixaban 5 mg tablet (Eliquis) 5 mg PO BID BLOOD THINNER 07/20/22 alprazolam 0.5 mg tablet 0.5 mg PO DAILY PRN Anxiety 3 days #3 tabs 07/25/22 lactulose 20 gram/30 mL oral solution 20 g PO BID LIVER 07/25/22 oxycodone 10 mg tablet 10 mg PO TID BREAKTHROUGH PAIN 3 days #9 tabs 07/25/22 colchicine 0.6 mg capsule 0.6 mg PO DAILY 30 days #30 caps 08/09/22 diltiazem HCl 120 mg capsule,extended release 24 hr 120 mg PO DAILY@0800 30 days #30 caps 08/09/22 metoprolol tartrate 50 mg tablet 50 mg PO BID 30 days #60 tabs 08/09/22 prednisone 10 mg tablet 10 mg PO BREAKFAST 30 days #30 tabs 08/09/22 Hospital Course Operations None Procedures None Summary of Care Provided Minutes Spent on Discharge: 35 Hospital Course: 61 year old male with below past medical history hospitalized for atrial fibrillation with rapid ventricular response, complicated by acute kidney injury, acute on chronic diastolic congestive heart failure, admitted to TCU with debility, here for rehabilitation, strengthening, prior to discharge home with . Resident weight increasing, diuresis not helpful, worsened renal function. He has bilateral foot pain due to gout, Discharge on Colchicine and Prednisone, then consider Febuxostat. Discharge home with 08/13/2022, [facility] PT/OT. Physical Exam Const alert General Appearance: cooperative HEENT normocephalic Eyes PERRL and EOMs intact bilaterally Neck supple, no JVD and no carotid bruits Resp normal respiratory effort, normal air movement and clear to auscultation bilaterally Cardio regular rate and regular rhythm GI normal to inspection, nondistended, normoactive bowel sounds, non-tender and non-distended Extremity normal capillary refill General Extremity: Negative for edema Skin no rashes or lesions noted General Skin Exam: no breakdown Psych affect normal Appearance: appropriate Weight / BMI Weight Weight: 170.692 kg Body Mass Index (BMI) 50.3 ABG / Lab / Microbiology Data Result Diagrams: 08/09/22 05:22 08/09/22 05:22 Laboratory: Laboratory Results - last 24 hr 08/08/22 18:17: Uric Acid 11.3 H 08/08/22 21:32: POC Glucose 414 H 08/09/22 05:22: WBC 16.0 H, RBC 3.69 L, Hgb 11.0 L, Hct 32.8 L, MCV 88.9, MCH 29.8, MCHC 33.5, RDW Std Deviation 47.3 H, RDW Coeff of Maciel 14.6, Plt Count 268, MPV 10.3, Immature Gran % (Auto) 0.700, Neut % (Auto) 89.8 H, Lymph % (Auto) 6.3 L, [place] % (Auto) 3.1, Eos % (Auto) 0.0, Baso % (Auto) 0.1, Absolute Neuts (auto) 14.4 H, Absolute Lymphs (auto) 1.01, Nucleated RBC % 0 08/09/22 05:22: Sodium 134 L, Potassium 4.9, Chloride 103, Carbon Dioxide 26.0, Anion Gap 5, BUN 44 H, Creatinine 2.15 H, Estim Creat Clear Calc 37.25, Est GFR (MDRD) Af Amer 40 L, Est GFR (MDRD) Non-Af 33 L, BUN/Creatinine Ratio 20.5 H, Glucose 253 H, Calcium 9.0 08/09/22 06:31: POC Glucose 218 H 08/09/22 11:24: POC Glucose 219 H 08/09/22 16:39: POC Glucose 242 H Microbiology: Microbiology 08/03/22 09:41 Urine, Clean Catch Urine Culture - Final Culture exhibits no growth. 08/02/22 15:26 Interface Orders Respiratory Panel (PCR) - Final 07/30/22 09:55 Interface Orders SARS-CoV-2 Antigen (Rapid) - Final 07/27/22 Unknown Nasal Secretion SARS-CoV-2 Antigen (Rapid) - Final D/C Instructions Discharge Diet: No restrictions Discharge Activity: Return to Normal Activity, May Shower and Use Walker Weight Bearing Status: Weight bearing as tolerated Call your doctor if you observe: Fever of 101 or Higher, Inability to urinate, Inability to have a bowel movement, Shortness of breath, Dizziness, Fainting spells, Chest pain and Uncontrolled pain Additional Instructions: Discharge home with 08/13/2022, [facility] PT/OT. Please Follow Up With: Ru Thomas MD Meaningful Use Info Meaningful Use Diagnoses (Choose all that apply): None applicable Discharge Plan Admission Admit Date/Time: 07/25/22 12:25 Primary Reason for Your Visit: Debility. Attending Provider: Lance Bose Chi Primary Care Provider: Raul Uribe Instructions Additional Instructions / Restrictions: Discharge home with 08/13/2022, [facility] PT/OT. Discharge Orders/Prescriptions Prescriptions: New prednisone 10 mg Tablet 10 mg PO BREAKFAST 30 Days Qty: 30 0RF metoprolol tartrate 50 mg Tablet 50 mg PO BID 30 Days Qty: 60 0RF diltiazem HCl 120 mg Capsule,Extended Release 24hr 120 mg PO DAILY@0800 30 Days Qty: 30 0RF colchicine 0.6 mg Capsule 0.6 mg PO DAILY 30 Days Qty: 30 0RF Continued cholecalciferol (vitamin D3) 5,000 UNIT capsule 5,000 unit PO DAILY ursodiol [PAT 250] 250 MG tablet 375 mg PO BID Label Comments: Take 1 tablet by mouth three times daily. still needs tonights dose potassium chloride 10 mEq tablet,ER particles/crystals 20 meq PO QODAY cyclobenzaprine 10 mg tablet 10 mg PO TID PRN (Reason: Spasms) Label Comments: Take 1 tablet by mouth three times daily as needed. ascorbic acid (vitamin C) [Vitamin C] 1,000 mg Tablet 1,000 mg PO DAILY zinc acetate 50 mg (zinc) Capsule 50 mg PO DAILY sulfamethoxazole-trimethoprim 400-80 mg tablet 1 tab PO DAILY Label Comments: TAKE 1 TABLET BY MOUTH DAILY ondansetron 4 mg tablet,disintegrating 4 mg PO Q8H PRN (Reason: Nausea) Label Comments: Take 1 tablet by mouth every 8 hours as needed. melatonin 5 mg Tablet 5 mg PO QHS tacrolimus 0.5 mg capsule 0.5 mg PO 0900,2100 Qty: 60 0RF Label Comments: 1 capsule by mouth as directed Rx Instructions: Continue at the direction of [facility] Eliquis 5 mg tablet 5 mg PO BID alprazolam 0.5 MG tablet 0.5 mg PO DAILY PRN (Reason: Anxiety) 3 Days Qty: 3 0RF oxycodone 10 mg tablet 10 mg PO TID 3 Days Qty: 9 0RF lactulose 20 gram/30 mL solution 20 g PO BID Rx Instructions: Please titrate up if needed to attain 2-3 bowel movements daily Discontinued aspirin [Adult Low Dose Aspirin] 81 MG tablet,delayed release (DR/EC) 81 mg PO DAILY Label Comments: heart health furosemide [Lasix] 40 mg tablet 40 mg PO BID metoprolol tartrate 50 mg tablet 50 mg PO BID diltiazem HCl 120 mg capsule,extended release 24hr 120 mg PO DAILY Referrals / Follow Up: Lance Bose Chi, MD [Med Staff - Active Staff] - Within 1 Week Disposition Disposition (needs filled in before D/C Order can be placed): Home Health Service
[2022-08-09] MEDS: MELATONIN 10 MG TABLET 5 MG PO (20:57)
[2022-08-09 22:15] LABS: Bedside Glucose 230 mg/dL (74-106)
[2022-08-09] MEDS: Insulin Glargine-YFGN 100 UNIT/ML Pen 20 UNIT SC (22:23)
[2022-08-10] MEDS: Cholecalciferol (Vit D3) 125 MCG CAPSULE (5,000 UNITS) PO (04:03)
[2022-08-10] MEDS: Colchicine 0.6 MG TABLET PO (04:04)
[2022-08-10] MEDS: APIXABAN 5 MG TABLET PO ×2 (04:04→17:41)
[2022-08-10] MEDS: Ascorbic Acid 500 MG Tablet 1000 MG PO (04:04)
[2022-08-10] MEDS: Ursodiol 250 MG Tablet 375 MG PO ×2 (04:05→17:43)
[2022-08-10] MEDS: Famotidine 20 MG Tablet PO ×2 (04:05→17:44)
[2022-08-10 04:09] VITALS: BP 123/59; PULSE 57
[2022-08-10] MEDS: Metoprolol Tartrate 50 MG Tablet PO ×2 (04:09→17:42)
[2022-08-10 05:58] LABS: Anion Gap 5 (5-15); BUN 49 mg/dL (7-18); BUN/Creat Ratio 23.2 RATIO (10-20); Chloride 106 mmol/L (98-107); Creatinine, Serum 2.11 mg/dL (0.70-1.30); EST Glomerular Filtration Rate 34 mL/min (>60); Est Glom Filt Rate - Afr Amer 41 mL/min (>60); Estimated Creatinine Clearance 37.96 ml/min; Glucose 260 mg/dL (74-106); Potassium 5.1 mmol/L (3.5-5.1); Sodium Level 138 mmol/L (136-145)
[2022-08-10 06:45] LABS: Bedside Glucose 242 mg/dL (74-106)
[2022-08-10] MEDS: Insulin Lispro 100 UNIT/ML INSULN.PEN 7 UNIT SC ×3 (07:53→17:39)
[2022-08-10] MEDS: Smz/Tmp Ds Tablet 0.5 TABLET PO (07:54)
[2022-08-10] MEDS: MethylPREDNISolone DosePak 4 MG BOX PO ×2 (07:55→21:15)
[2022-08-10] MEDS: Potassium Chloride Oral Tablet 20 MEQ PO ×2 (07:55→17:40)
[2022-08-10] MEDS: dilTIAZem CD 120 MG Capsule PO (07:56)
[2022-08-10] MEDS: Tacrolimus 0.5 MG Capsule PO ×2 (08:01→21:15)
[2022-08-10 08:03] VITALS: BP 105/69; PULSE 60
[2022-08-10 09:10] VITALS: PULSE 80; RESP 18; O2SAT 97
[2022-08-10] MEDS: Bumetanide 0.5 MG Tablet 1 MG PO (09:25)
--- NOTE | 2022-08-10 10:33 | NURSING ---
APPOINTMENT MADE PER ORDERS FOR PT TO SEE DR. SALVADOR ON 08/14/22 @ 11 AM. PT AND FAMILY AWARE. IF PT STILL ON TCU, WILL TAKE TO APPOINTMENT.
[2022-08-10 11:35] LABS: Bedside Glucose 174 mg/dL (74-106)
--- NOTE | 2022-08-10 12:04 | CASEMGMT ---
Social Work BIMS () and PHQ-9 (11/26) completed for MDS assessment. Eunice Bright MSW DOCUMENTATION COORDINATOR
[2022-08-10 13:07] LABS: Anti-Centromere B Ab <0.2 AI (0.0-0.9); Anti-Chromatin <0.2 AI (0.0-0.9); Anti-Jo <0.2 AI (0.0-0.9); Anti-Scleroderma-70 AB <0.2 AI (0.0-0.9); RNP Ab 0.5 AI (0.0-0.9); SJOGREN'S Anti-SS-A test < 0.2 AI (0.0-0.9); SJOGREN'S Anti-SS-B test < 0.2 AI (0.0-0.9); Smith Ab <0.2 AI (0.0-0.9)
[2022-08-10 14:00] VITALS: BP 132/57; PULSE 59; RESP 18; TEMP 36.2; O2SAT 98
[2022-08-10 16:42] LABS: Anti-dsDNA Ab <1 IU/mL (0-9)
[2022-08-10 17:05] LABS: Bedside Glucose 168 mg/dL (74-106)
[2022-08-10] MEDS: Bumetanide 2 MG Tablet PO (17:41)
[2022-08-10 17:42] VITALS: BP 132/57; PULSE 59
[2022-08-10] MEDS: 0.9% Saline Lock 10 ML Syringe IV (17:48)
[2022-08-10] MEDS: oxyCODONE 5 MG Tablet 10 MG PO (21:14)
[2022-08-10] MEDS: MELATONIN 10 MG TABLET 5 MG PO (21:15)
[2022-08-10] MEDS: Nystatin Powder 15gm Bottle 1 APPLIC TOPICAL (21:16)
[2022-08-10] MEDS: Insulin Glargine-YFGN 100 UNIT/ML Pen 20 UNIT SC (21:18)
[2022-08-10 21:36] LABS: Bedside Glucose 193 mg/dL (74-106)
[2022-08-11 05:39] VITALS: BP 154/82; PULSE 64
[2022-08-11 05:40] VITALS: PULSE 64
[2022-08-11] MEDS: APIXABAN 5 MG TABLET PO (05:40)
[2022-08-11] MEDS: Famotidine 20 MG Tablet PO (05:40)
[2022-08-11] MEDS: Metoprolol Tartrate 50 MG Tablet PO (05:40)
[2022-08-11] MEDS: Bumetanide 2 MG Tablet PO (05:41)
[2022-08-11] MEDS: Colchicine 0.6 MG TABLET PO (05:41)
[2022-08-11] MEDS: Ursodiol 250 MG Tablet 375 MG PO (05:41)
[2022-08-11] MEDS: Cholecalciferol (Vit D3) 125 MCG CAPSULE (5,000 UNITS) PO (05:41)
[2022-08-11] MEDS: Ascorbic Acid 500 MG Tablet 1000 MG PO (05:41)
[2022-08-11 06:40] LABS: Bedside Glucose 190 mg/dL (74-106)
[2022-08-11] MEDS: MethylPREDNISolone DosePak 4 MG BOX PO (08:01)
[2022-08-11] MEDS: Insulin Lispro 100 UNIT/ML INSULN.PEN 7 UNIT SC (08:02)
[2022-08-11] MEDS: Smz/Tmp Ds Tablet 0.5 TABLET PO (08:08)
[2022-08-11] MEDS: Potassium Chloride Oral Tablet 20 MEQ PO (08:09)
[2022-08-11] MEDS: dilTIAZem CD 120 MG Capsule PO (08:09)
[2022-08-11] MEDS: Tacrolimus 0.5 MG Capsule PO (08:09)
[2022-08-11 09:05] LABS: Anion Gap 6 (5-15); BUN 54 mg/dL (7-18); BUN/Creat Ratio 23.3 RATIO (10-20); Calcium,Total 8.9 mg/dL (8.5-10.1); Chloride 108 mmol/L (98-107); Creatinine, Serum 2.32 mg/dL (0.70-1.30); EST Glomerular Filtration Rate 31 mL/min (>60); Est Glom Filt Rate - Afr Amer 37 mL/min (>60); Estimated Creatinine Clearance 34.52 ml/min; Glucose 173 mg/dL (74-106); Potassium 4.5 mmol/L (3.5-5.1); Sodium Level 141 mmol/L (136-145)
[2022-08-11] MEDS: oxyCODONE 5 MG Tablet 10 MG PO (09:37)
[2022-08-11 10:00] VITALS: PULSE 57; O2SAT 96
[2022-08-11 11:38] VITALS: BP 135/69; PULSE 57; RESP 18; TEMP 36.6; O2SAT 96
--- NOTE | 2022-08-11 11:50 | NURSING ---
Addendum entered by Maia Acosta 08/11/22 13:28: Updated Dr. Bose that patient requesting to leave today. Order to change his DC to today. Clarified med orders, patient to stop taking insulin and bumex. He has f/u scheduled with Dr. Monae on the and will call Dr. Bose's office Saturday to set up a followup with him as his new PCP. Reviewed instructions with patient and multiple family members in room. Original Note: Called to updated [facility] that patient discharging today instead of the . Left w/ cable installation technician nurse Neris.
--- NOTE | 2022-08-11 11:50 | NURSING ---
Seen PT this am during breakfast for morning medpass, pt very upset about his breakfast. States he has talked with dietary numerous times but there has been no change in his meals that has been coming up, specifically he wanted and was allotted real miramontes and countless times he is being served turkey miramontes. Pt was to dc on Saturday 07/14 home with his and [facility], he originally appealed d/t starting a new med, but with his unhappiness he has requested to leave today. Family in room and all agreed that it was time and the home is set for him to return safely. RN notified and DC process started.
--- NOTE | 2022-08-13 08:23 | CASEMGMT ---
Social Work SW received call from [facility] stating Pt's rollator has arrived and could be picked up today. Pt and family choose to discharge on Saturday 08/11. Phone call placed to pt home and SW updated that rollator was at [facility] for chart picker. agreeable to chart picker today. Message sent to Cristy at [facility] notifying of change of discharge date for pt. BRAN Valenzuela
== END 2022-08-11 11:15 | disposition home health service (06) | DRG 309 ==
PROVIDERS: Admitting Provider Family Medicine Geriatric Medicine; PCP Family Medicine; Visit Provider Family Medicine Geriatric Medicine
DX: I48.91 Unspecified atrial fibrillation (principal); Z68.43 Body mass index [BMI] 50.0-59.9, adult; Z94.4 Liver transplant status; I50.32 Chronic diastolic (congestive) heart failure; K76.82 Hepatic encephalopathy; D63.8 Anemia in other chronic diseases classified elsewhere; K75.81 Nonalcoholic steatohepatitis (NASH); N18.31 Chronic kidney disease, stage 3a; E66.01 Morbid (severe) obesity due to excess calories; I47.1 Supraventricular tachycardia; I25.10 Atherosclerotic heart disease of native coronary artery without angina pectoris; F41.9 Anxiety disorder, unspecified; E87.6 Hypokalemia; E55.9 Vitamin D deficiency, unspecified; I25.2 Old myocardial infarction; E53.8 Deficiency of other specified B group vitamins; M10.09 Idiopathic gout, multiple sites; M19.071 Primary osteoarthritis, right ankle and foot; M19.072 Primary osteoarthritis, left ankle and foot; Z79.01 Long term (current) use of anticoagulants; Z79.82 Long term (current) use of aspirin; Z79.899 Other long term (current) drug therapy; B35.4 Tinea corporis; Z23 Encounter for immunization
CPT/HCPCS: 36415; 71046; 80048; 81001; 82140; 82962; 84550; 85025; 85652; 86140; 86225; 86235; 87086; 87426; 87633; 87635; 87811; 97110; 97116; 97162; 97166; 97530; 97535; 97802; G0008; 90686; A4216; J1940; U0003; U0005

== ENCOUNTER → 2022-08-13 | Outpatient (CLI) | payer MEDICARE, SELFPAY ==
[2022-08-13 12:46] LABS: Absolute Lymphocyte Count 0.77 X10^3/uL (0.83-4.51); Basophil# 0.01 X10^3/uL; Basophil% 0.1 % (0-1); Eosinophil# 0.41 X10^3/uL; Eosinophils% 3.5 % (0-5); Hematocrit 34.1 % (40-54); Hemoglobin 10.9 g/dL (13.0-16.5); Lymphocyte # 0.77 X10^3/ul (0.83-4.51); Lymphocyte % 6.5 % (19-41); Mean Corpuscular Hgb 29.1 pg (27.0-32.0); Mean Corpuscular Volume 91.2 fL (80-94); Mean Platelet Vol. 10.6 fl (6.2-12.0); Monocyte# 0.63 X10^3/uL; Monocyte% 5.3 % (0-10); NRBC Flagged by Analyzer 0 % (0-5); Neutrophil # 9.96 X10^3/uL (2.7-7.7); Neutrophil % 84.3 % (47-70); Platelet Count 201 K/mm3 (150-450); RBC Distribution Width CV 15.3 % (11.6-14.6); RBC Distribution Width SD 50.6 fl (35.1-43.9); Red Blood Count 3.74 M/mm3 (4.6-6.2); White Blood Count 11.8 K/mm3 (4.4-11.0)
[2022-08-13 13:36] LABS: ALB/GLOB Ratio 0.6 RATIO (0.9-2.4); AST(SGOT) 11 U/L (15-37); Alanine Aminotransfer ALT/SGPT 17 U/L (16-61); Albumin, Serum 2.4 g/dL (3.2-5.0); Alkaline Phosphatase 169 U/L (45-117); Anion Gap 7 (5-15); BUN 41 mg/dL (7-18); BUN/Creat Ratio 23.6 RATIO (10-20); Calcium,Total 8.1 mg/dL (8.5-10.1); Chloride 111 mmol/L (98-107); Creatinine, Serum 1.74 mg/dL (0.70-1.30); EST Glomerular Filtration Rate 43 mL/min (>60); Est Glom Filt Rate - Afr Amer 52 mL/min (>60); Globulin 3.9 g/dL (2.2-4.2); Glucose 140 mg/dL (74-106); Potassium 4.5 mmol/L (3.5-5.1); Protein, Total 6.3 g/dL (6.4-8.2); Sodium Level 143 mmol/L (136-145); Thyroid Stim Hormone (TSH) 1.81 uIU/mL (0.358-3.74); Uric Acid 11.1 mg/dL (3.5-7.2)
== END | disposition home or self-care (01) ==
LOC: POLAB3 12:10
PROVIDERS: PCP Family Medicine; Visit Provider Family Medicine Geriatric Medicine
DX: I50.32 Chronic diastolic (congestive) heart failure (principal); K80.50 Calculus of bile duct without cholangitis or cholecystitis without obstruction; M10.9 Gout, unspecified; R53.83 Other fatigue; Z12.5 Encounter for screening for malignant neoplasm of prostate
CPT/HCPCS: 36415; 80053; 82306; 84153; 84443; 84550; 85025; G0103

== ENCOUNTER → 2022-08-14 | Outpatient (CLI) | payer MEDICARE, SELFPAY | END | disposition home or self-care (01) | LOC: PSN 10:20 | PROVIDERS: PCP Family Medicine Geriatric Medicine; Visit Provider Family Medicine Geriatric Medicine | DX: R68.83 Chills (without fever) (principal) | CPT/HCPCS: 87635; 87804; 87807; U0003; U0005 ==

== ENCOUNTER → 2022-08-29 | Outpatient (CLI) | payer MEDICARE, SELFPAY ==
--- NOTE | 2022-08-29 15:50 | RAD_ITS ---
INDICATION: PAIN EXAMINATION/TECHNIQUE: X-RAY - RIGHT XR Hip Unilateral with Pelvis when performed; 2-3 Views 3 VIEWS COMPARISON: None. FINDINGS: A frontal view of the pelvis as well as frontal and lateral views of the right hip were obtained. Bilateral hip prostheses are identified. No hip dislocation. No acute fracture. RAD/HIP, UNI W/ Pelvis 2-3 Views IMPRESSION: Bilateral hip prostheses. No acute fracture or dislocation. Electronically Signed: Miguel Trejo MD at 7:00 EST ,
[2022-08-29 17:31] LABS: Absolute Neutrophil Count 5.1 X10^3/uL (2.0-7.7); Basophil# 0.04 X10^3/uL; Basophil% 0.4 % (0-1); Eosinophil# 0.24 X10^3/uL; Eosinophils% 2.6 % (0-5); Hematocrit 38.2 % (40-54); Hemoglobin 12.2 g/dL (13.0-16.5); Lymphocyte % 31.4 % (19-41); Mean Corp Hgb Conc 31.9 g/dL (32-36); Mean Corpuscular Hgb 29.3 pg (27.0-32.0); Mean Corpuscular Volume 91.8 fL (80-94); Mean Platelet Vol. 10.4 fl (6.2-12.0); Monocyte# 0.92 X10^3/uL; Monocyte% 9.9 % (0-10); NRBC Flagged by Analyzer 0 % (0-5); Neutrophil # 5.13 X10^3/uL (2.7-7.7); Neutrophil % 55.5 % (47-70); Platelet Count 244 K/mm3 (150-450); RBC Distribution Width CV 15.9 % (11.6-14.6); RBC Distribution Width SD 52.1 fl (35.1-43.9); Red Blood Count 4.16 M/mm3 (4.6-6.2); White Blood Count 9.3 K/mm3 (4.4-11.0)
[2022-08-29 17:58] LABS: ALB/GLOB Ratio 0.6 RATIO (0.9-2.4); AST(SGOT) 19 U/L (15-37); Alanine Aminotransfer ALT/SGPT 22 U/L (16-61); Albumin, Serum 2.5 g/dL (3.2-5.0); Alkaline Phosphatase 157 U/L (45-117); Anion Gap 7 (5-15); BUN 14 mg/dL (7-18); BUN/Creat Ratio 7.3 RATIO (10-20); Calcium,Total 9.3 mg/dL (8.5-10.1); Chloride 111 mmol/L (98-107); Creatinine, Serum 1.91 mg/dL (0.70-1.30); EST Glomerular Filtration Rate 38 mL/min (>60); Est Glom Filt Rate - Afr Amer 46 mL/min (>60); Globulin 4.3 g/dL (2.2-4.2); Glucose 147 mg/dL (74-106); Potassium 4.5 mmol/L (3.5-5.1); Protein, Total 6.8 g/dL (6.4-8.2); Sodium Level 138 mmol/L (136-145); Thyroid Stim Hormone (TSH) 2.35 uIU/mL (0.358-3.74)
== END | disposition home or self-care (01) ==
LOC: POLAB3 15:36 → RAD 15:48
PROVIDERS: PCP Family Medicine Geriatric Medicine; Visit Provider Family Medicine Geriatric Medicine
DX: M25.551 Pain in right hip (principal); R53.83 Other fatigue; Z96.643 Presence of artificial hip joint, bilateral
CPT/HCPCS: 36415; 73502; 80053; 84443; 85025; 87086

== ENCOUNTER 2022-09-12 19:41 | Emergency (ER) | payer MEDICARE, SELFPAY ==
[2022-09-12 19:42] VITALS: PULSE 63; RESP 22; TEMP 36.6; O2SAT 97; BMI 52.5
[2022-09-12 19:45] VITALS: BP 151/76; PULSE 71; RESP 18; O2SAT 97
--- NOTE | 2022-09-12 20:58 | EKG12_ITS ---
Test Reason : HR Blood Pressure : / mmHG Vent. Rate : 082 BPM Atrial Rate : 063 BPM P-R Int : 174 ms QRS Dur : 090 ms QT Int : 382 ms P-R-T Axes : 015 -15 039 degrees QTc Int : 446 ms Sinus rhythm with Premature atrial complexes Low voltage QRS Borderline ECG Confirmed by SAHIL SHIPMAN, ROULA ([id number]), content editor JULIO CÉSAR SOLORIO ([id number]) on 09/17/2022 12:21:08 PM Referred By: PL Confirmed By:ROULA BAXTER MD
--- NOTE | 2022-09-12 20:59 | EDS_ITS ---
HPI History of Present Illness Chief Complaint: Fatigue Narrative Narrative: 61-year-old male past medical history of liver transplant, atrial fibrillation on Eliquis presents with generalized weakness, fatigue, and reported low heart rate in the 30s. He relates history that he was diagnosed with atrial fibrillation and is supposed to get an ablation sometime in the future. When he was discharged from the hospital he was already on metoprolol 50 mg twice a day but they sent him home on Cardizem also. At that time he had bradycardia intermittently and was not feeling well like he was not tonight. He was noted to have a heart rate in the 30s at his primary care provider, Dr. Bose's office, and was taken off Cardizem. He has not had a problem since, but tonight stated that he was not feeling well, he was sitting in a high-back chair and wanted to take his pulse ox. He denies any fevers or chills, no shortness of breath, no cough, no problems with urination but he noticed when he took his pulse ox it was 97% on room air and normal, but his heart rate was in the 30s. This was for approximately 5 minutes. He noticed this may be an hour to an hour and a half ago. He states it came back up to the 60s, but then precipitously dropped back to the 30s for short time. He presents because of the bradycardia. He has not yet taken his evening dose of metoprolol, however. [facility] Medical History (HFpEF) heart failure with preserved ejection fraction Acidosis, lactic Acute hypotension Anemia of chronic disease Ascites Atherosclerotic heart disease of [place] coronary artery without angina pectoris Atrial fibrillation Atrial flutter with rapid ventricular response (02/02/21) Cellulitis Chronic renal failure, stage 3 (moderate) Cirrhosis Coronary artery disease History of non-ST elevation myocardial infarction (NSTEMI) (12/29/20) Kidney disease Morbid obesity Multiple falls Nonsustained paroxysmal ventricular tachycardia (12/2020) Venous insufficiency Vertigo, central Home Medications cholecalciferol (vitamin D3) 125 mcg (5,000 unit) capsule 5,000 unit PO DAILY supplement 04/07/19 [History Last Taken 07/20/22] ursodiol 250 mg tablet (PAT 250) 375 mg PO BID GALLSTONES 04/07/19 [History Last Taken 07/20/22] potassium chloride 10 mEq tablet,extended release(part/cryst) 20 meq PO QODAY supplement 01/19/21 [History Last Taken 07/18/22] ascorbic acid (vitamin C) 1,000 mg tablet (Vitamin C) 1,000 mg PO DAILY SUPPLEMENT 06/19/22 [History Last Taken 07/19/22] cyclobenzaprine 10 mg tablet 10 mg PO TID PRN Spasms 06/19/22 [History Last Taken 07/20/22] melatonin 5 mg tablet 5 mg PO QHS SLEEP 06/19/22 [History Last Taken 07/19/22] ondansetron 4 mg disintegrating tablet 4 mg PO Q8H PRN Nausea 06/19/22 [History Last Taken 07/20/22] sulfamethoxazole 400 mg-trimethoprim 80 mg tablet 1 tab PO DAILY LIVER TRANSPLANT 06/19/22 [History Last Taken 07/20/22] zinc acetate 50 mg (zinc) capsule 50 mg PO DAILY SUPPLEMENT 06/19/22 [History Last Taken 07/19/22] tacrolimus 0.5 mg capsule, immediate-release 0.5 mg PO 0900,2100 IMMUNE #60 caps 06/21/22 [Rx Last Taken 07/20/22] apixaban 5 mg tablet (Eliquis) 5 mg PO BID BLOOD THINNER 07/20/22 [History Last Taken 07/20/22] alprazolam 0.5 mg tablet 0.5 mg PO DAILY PRN Anxiety 3 days #3 tabs 07/25/22 [Rx Last Taken Unknown] lactulose 20 gram/30 mL oral solution 20 g PO BID LIVER 07/25/22 [History Last Taken Unknown] oxycodone 10 mg tablet 10 mg PO TID BREAKTHROUGH PAIN 3 days #9 tabs 07/25/22 [Rx Last Taken Unknown] colchicine 0.6 mg capsule 0.6 mg PO DAILY 30 days #30 caps 08/09/22 [Rx Last Taken Unknown] diltiazem HCl 120 mg capsule,extended release 24 hr 120 mg PO DAILY@0800 30 days #30 caps 08/09/22 [Rx Last Taken Unknown] metoprolol tartrate 50 mg tablet 50 mg PO BID 30 days #60 tabs 08/09/22 [Rx Last Taken Unknown] prednisone 10 mg tablet 10 mg PO BREAKFAST 30 days #30 tabs 08/09/22 [Rx Last Taken Unknown] Allergy/AdvReac Type Severity Reaction Status Date / Time pravastatin [From Pravachol] Allergy Hives Verified 09/12/22 19:42 Jiwngjn-KSG-MmV Reductase Allergy Hives Verified 09/12/22 19:42 Inhibitor [Unfgrrr-Xiw-Mgf Reductase Inhibitor] vancomycin Allergy NEEDS Verified 09/12/22 19:42 FOLLOW-UP zolpidem tartrate Allergy Hives Verified 09/12/22 19:42 [From Ambien] everolimus AdvReac Swelling Verified 09/12/22 19:42 gabapentin AdvReac NEEDS Verified 09/12/22 19:42 FOLLOW-UP Family History Mother Heart disease Father Heart disease Surgical History H/O shoulder surgery History of cardioversion (02/02/21) History of hip surgery Liver transplant recipient Status post liver transplant (07/2017) Social History household members: spouse Smoking Status: Never smoker alcohol intake: current Alcohol type: other substance use type: does not use ROS ROS ED ROS Narrative Constitutional: No fever, no chills. Malaise and fatigue, not feeling well. HEENT: No sore throat. No neck pain. No loss of vision. No rhinorrhea. Cardiovascular: No chest pain. No palpitations. No pedal edema. Reported bradycardia in the 30s. Respiratory: No cough, no shortness of breath. Abdominal: No abdominal pain. No nausea. No vomiting. Genitourinary: No dysuria. No hematuria. Musculoskeletal: No myalgias. No arthralgias. Neurologic: No headaches. No dizziness. No lightheadedness. Skin: No rash. No change in color. Psychiatric: No depression. No anxiety. EXAM Physical Exam Narrative Exam Narrative: Afebrile. Vital signs noted. HEENT: Normocephalic. Atraumatic. PERRL, EOMI. Neck soft and supple. No point tenderness or step off. Cardiovascular: Regular rate and rhythm. No murmurs, rubs, or gallops appreciated. Respiratory: No tachypnea. Lungs clear to auscultation bilaterally. Gastrointestinal: Abdomen soft, obese, nontender, with normoactive bowel sounds. No rebound or guarding. Neurological: Awake. Alert. Nonfocal, nonlateralizing. Skin: No rash. Normal color. No pallor. Musculoskeletal: No pedal edema. Full range of motion extremities. Const Vital Signs: 09/12/22 19:42 09/12/22 19:45 09/12/22 19:45 Temperature 97.9 F Temperature Source Temporal Pulse Rate 63 71 Respiratory Rate 22 H 18 Respiratory Effort Normal Non-Labored Respiratory Pattern Normal Blood Pressure 151/76 H Blood Pressure Mean 101 Pulse Ox 97 97 Oxygen Delivery Method Room Air Room Air 09/12/22 21:16 09/12/22 21:00 09/12/22 22:00 Temperature Temperature Source Pulse Rate 70 61 Respiratory Rate 16 14 Respiratory Effort Respiratory Pattern Blood Pressure 134/61 H 132/73 H Blood Pressure Mean 85 92 Pulse Ox 99 98 Oxygen Delivery Method Room Air Room Air Room Air MDM MDM MDM Narrative Medical decision making narrative: Comprehensive work-up was pursued. I obtained and interpreted his EKG. His EKG demonstrates normal sinus rhythm with PACs at a rate of 82 bpm. He was placed on a cardiac cath technician. There is artifact noted, but his heart rate is currently in the 60s. In the differential diagnosis is beta satish toxicity/overdose versus sick sinus syndrome. Sick sinus is less likely given his normal EKG and normal heart rate. Additionally, he has not taken his beta-satish this evening. I obtained and reviewed his CBC which demonstrates normal WBC count of 6.7, hemoglobin stable at 10.8, normal platelet count of 240. I also obtained and r eviewed his BMP which shows creatinine slightly elevated at 1.95 consistent with his chronic kidney disease, BUN of 17, normal sodium of 142, normal potassium 4.1, normal chloride of 107. Glucose is elevated at 139, but he has a normal anion gap of 10. High-sensitivity troponin is 17. Chest x-ray interpreted by myself shows no acute processes, no pneumothorax or infiltrate. Radiology read confirms this. At this point in time, he has not had any sustained bradycardia on the monitor. His current heart rate is 60 bpm. I feel he be discharged safely home with follow-up. He has an appointment with Dr. Thomas scheduled. He can also follow-up with his primary care provider should he need to wear a Holter monitor. He will continue his beta-satish and take it tonight. Return instructions to the emergency department were reviewed. Disposition is discharged home in stable condition. Lab Data Attestation: I reviewed the patient's lab results. Labs: Laboratory Results - last 24 hr 09/12/22 09/12/22 20:40 20:40 WBC 6.7 RBC 3.75 L Hgb 10.8 L Hct 34.8 L MCV 92.8 MCH 28.8 MCHC 31.0 L RDW Std Deviation 59.5 H RDW Coeff of Maciel 17.7 H Plt Count 240 MPV 11.1 Immature Gran % (Auto) 0.100 Neut % (Auto) 55.5 Lymph % (Auto) 30.2 [place] % (Auto) 11.6 H Eos % (Auto) 1.9 Baso % (Auto) 0.7 Absolute Neuts (auto) 3.7 Absolute Lymphs (auto) 2.03 Nucleated RBC % 0 Sodium 142 Potassium 4.1 Chloride 107 Carbon Dioxide 25.0 Anion Gap 10 BUN 17 Creatinine 1.95 H Estim Creat Clear Calc 41.08 Est GFR (MDRD) Af Amer 45 L Est GFR (MDRD) Non-Af 37 L BUN/Creatinine Ratio 8.7 L Glucose 139 H Calcium 9.1 Troponin I High Sens 17 Radiography Diagnostic Testing: Clinical Impression(s) from Imaging Studies Chest X-Ray 09/12/22 21:14 IMPRESSION: No acute radiographic abnormalities. Electronically Signed: Antwan Boland MD at 21:23 EST , Discharge Plan Triage Chief Complaint: Fatigue ED Provider: Andrés Dave Dx/Rx/DC Orders Clinical Impression: Liver transplant recipient, PAF (paroxysmal atrial fibrillation), Bradycardia, unspecified Instructions: ED Bradycardia Prescriptions: No Action cholecalciferol (vitamin D3) 5,000 UNIT capsule 5,000 unit PO DAILY ursodiol [PAT 250] 250 MG tablet 375 mg PO BID Label Comments: Take 1 tablet by mouth three times daily. still needs tonights dose potassium chloride 10 mEq tablet,ER particles/crystals 20 meq PO QODAY cyclobenzaprine 10 mg tablet 10 mg PO TID PRN (Reason: Spasms) Label Comments: Take 1 tablet by mouth three times daily as needed. ascorbic acid (vitamin C) [Vitamin C] 1,000 mg Tablet 1,000 mg PO DAILY zinc acetate 50 mg (zinc) Capsule 50 mg PO DAILY sulfamethoxazole-trimethoprim 400-80 mg tablet 1 tab PO DAILY Label Comments: TAKE 1 TABLET BY MOUTH DAILY ondansetron 4 mg tablet,disintegrating 4 mg PO Q8H PRN (Reason: Nausea) Label Comments: Take 1 tablet by mouth every 8 hours as needed. melatonin 5 mg Tablet 5 mg PO QHS tacrolimus 0.5 mg capsule 0.5 mg PO 0900,2100 Qty: 60 0RF Label Comments: 1 capsule by mouth as directed Rx Instructions: Continue at the direction of [facility] Eliquis 5 mg tablet 5 mg PO BID alprazolam 0.5 MG tablet 0.5 mg PO DAILY PRN (Reason: Anxiety) 3 Days Qty: 3 0RF oxycodone 10 mg tablet 10 mg PO TID 3 Days Qty: 9 0RF lactulose 20 gram/30 mL solution 20 g PO BID Rx Instructions: Please titrate up if needed to attain 2-3 bowel movements daily prednisone 10 mg Tablet 10 mg PO BREAKFAST 30 Days Qty: 30 0RF metoprolol tartrate 50 mg Tablet 50 mg PO BID 30 Days Qty: 60 0RF diltiazem HCl 120 mg Capsule,Extended Release 24hr 120 mg PO DAILY@0800 30 Days Qty: 30 0RF colchicine 0.6 mg Capsule 0.6 mg PO DAILY 30 Days Qty: 30 0RF Primary Care Provider: Lance Bose Chi Referrals: Ru Thomas MD [Med Staff - Active Staff] - As soon as possible Lance Bose Chi, MD [Primary Care Provider] - 1-2 Days if not improving Disposition Disposition: Home, Self Care
[2022-09-12 21:00] VITALS: BP 134/61; PULSE 70; RESP 16; O2SAT 99
[2022-09-12] MEDS: Aspirin 81 MG TAB.CHEW 324 MG PO (21:02)
[2022-09-12 21:13] LABS: Absolute Lymphocyte Count 2.03 X10^3/uL (0.83-4.51); Absolute Neutrophil Count 3.7 X10^3/uL (2.0-7.7); Basophil# 0.05 X10^3/uL; Basophil% 0.7 % (0-1); Eosinophil# 0.13 X10^3/uL; Eosinophils% 1.9 % (0-5); Hematocrit 34.8 % (40-54); Hemoglobin 10.8 g/dL (13.0-16.5); Lymphocyte # 2.03 X10^3/ul (0.83-4.51); Lymphocyte % 30.2 % (19-41); Mean Corpuscular Hgb 28.8 pg (27.0-32.0); Mean Corpuscular Volume 92.8 fL (80-94); Mean Platelet Vol. 11.1 fl (6.2-12.0); Monocyte# 0.78 X10^3/uL; Monocyte% 11.6 % (0-10); NRBC Flagged by Analyzer 0 % (0-5); Neutrophil # 3.73 X10^3/uL (2.7-7.7); Neutrophil % 55.5 % (47-70); Platelet Count 240 K/mm3 (150-450); RBC Distribution Width CV 17.7 % (11.6-14.6); RBC Distribution Width SD 59.5 fl (35.1-43.9); Red Blood Count 3.75 M/mm3 (4.6-6.2); White Blood Count 6.7 K/mm3 (4.4-11.0)
--- NOTE | 2022-09-12 21:14 | RAD_ITS ---
INDICATION: chest pain EXAMINATION/TECHNIQUE: X-RAY - XR Chest 1 View COMPARISON: 08/03/2022. FINDINGS: The lungs are clear. The heart is border line enlarged. Normal visualized aortic arch and descending thoracic aorta. No pleural effusion or pneumothorax. No acute osseous abnormalities. Left total shoulder arthroplasty. RAD/Chest 1 View (Portable) IMPRESSION: No acute radiographic abnormalities. Electronically Signed: Antwan Boland MD at 21:23 EST ,
[2022-09-12 21:31] LABS: Anion Gap 10 (5-15); BUN 17 mg/dL (7-18); BUN/Creat Ratio 8.7 RATIO (10-20); Calcium,Total 9.1 mg/dL (8.5-10.1); Chloride 107 mmol/L (98-107); Creatinine, Serum 1.95 mg/dL (0.70-1.30); EST Glomerular Filtration Rate 37 mL/min (>60); Est Glom Filt Rate - Afr Amer 45 mL/min (>60); Estimated Creatinine Clearance 41.08 ml/min; Glucose 139 mg/dL (74-106); Potassium 4.1 mmol/L (3.5-5.1); Sodium Level 142 mmol/L (136-145); Troponin-I HS (w/2H Reflex) 17 pg/mL (3.0-78.0)
[2022-09-12 22:00] VITALS: BP 132/73; PULSE 61; RESP 14; O2SAT 98
[2022-09-12 22:25] VITALS: PULSE 62; RESP 13; O2SAT 97
--- NOTE | 2022-09-12 22:39 | ED.RN ---
pt d/c left upper arm IV. This RN d/c right FA.
[2022-09-12 23:10] LABS: Reflex Troponin-HS? (from REC) Y
== END 2022-09-12 22:40 | disposition home or self-care (01) ==
PROVIDERS: Emergency Provider Emergency Medicine; PCP Family Medicine Geriatric Medicine; Visit Provider Emergency Medicine
DX: I48.0 Paroxysmal atrial fibrillation (principal); Z94.4 Liver transplant status; I50.30 Unspecified diastolic (congestive) heart failure; N18.30 Chronic kidney disease, stage 3 unspecified; R00.1 Bradycardia, unspecified; I25.10 Atherosclerotic heart disease of native coronary artery without angina pectoris; R53.83 Other fatigue
CPT/HCPCS: 71045; 80048; 84484; 85025; 93005; 99284; A4216

== ENCOUNTER → 2022-09-17 | Outpatient (CLI) | payer MEDICARE, SELFPAY | END | disposition home or self-care (01) | LOC: POLAB3 15:24 → LAB.FUTURE 15:39 | PROVIDERS: PCP Family Medicine Geriatric Medicine; Referring Provider Internal Medicine Nephrology; Visit Provider Family Medicine Geriatric Medicine | DX: N18.32 Chronic kidney disease, stage 3b (principal); E11.22 Type 2 diabetes mellitus with diabetic chronic kidney disease; M10.9 Gout, unspecified; E83.42 Hypomagnesemia; D64.9 Anemia, unspecified ==

== ENCOUNTER 2022-09-24 13:40 | Inpatient (IN) | payer MEDICARE, SELFPAY ==
[2022-09-24 13:41] VITALS: BP 140/60; PULSE 81; RESP 15; TEMP 36.7; O2SAT 97; BMI 50.1
[2022-09-24 13:45] VITALS: PULSE 180
[2022-09-24 14:42] VITALS: BP 135/62; PULSE 83; RESP 14; O2SAT 98
--- NOTE | 2022-09-24 14:45 | EKG12_ITS ---
Test Reason : Blood Pressure : / mmHG Vent. Rate : 079 BPM Atrial Rate : 079 BPM P-R Int : 160 ms QRS Dur : 088 ms QT Int : 356 ms P-R-T Axes : -24 -19 026 degrees QTc Int : 408 ms Normal sinus rhythm with sinus arrhythmia Low voltage QRS (Limb Leads) Confirmed by CARLA SHIPMAN, SUGAR ([id number]), tape editor JULIO CÉSAR SOLORIO ([id number]) on 09/26/2022 8:58:41 AM Referred By: PHAN Confirmed By:SUGAR AGUIRRE MD
--- NOTE | 2022-09-24 14:46 | EDS_ITS ---
HPI History of Present Illness Chief Complaint: Palpitations Narrative Narrative: 61-year-old male, multiple medical problems including debility, presents with 2 chief complaints. He has history of atrial fibrillation, on Eliquis, and reports that his primary care provider wants him to get a pacemaker. He had an episode of what he believes was atrial fibrillation this afternoon at 1230, approximately 2 hours ago. He was at home, and felt his heart rate in the 150s to the 160s at least. He gets nausea that is associated with this. Upon arrival to the emergency department, he states that his heart rate returned to normal and he feels improved. Additionally, he relates history that a few months ago at the end of last year, he had gout in both of his feet. He started taking allopurinol 200 mg daily, and over the last few days started getting left leg pain mainly in his hip and his knee. He thinks that his gout is progressing into his left leg. He is unable to ambulate any further. He had spent time in the TCU after his admission. His primary care provider is Dr. Bose. He denies any fevers or chills, no other problems. Quite frankly, he states he is unable to even walk with a walker at home, and his is unable to care for him. He denies any trauma to his left lower extremity, but he has pain that is worse with movement, mainly in his joints. [facility] Medical History (HFpEF) heart failure with preserved ejection fraction Acidosis, lactic Acute hypotension Anemia of chronic disease Ascites Atherosclerotic heart disease of [place] coronary artery without angina pectoris Atrial fibrillation Atrial flutter with rapid ventricular response (02/02/21) Cellulitis Chronic renal failure, stage 3 (moderate) Cirrhosis Coronary artery disease Gout History of non-ST elevation myocardial infarction (NSTEMI) (12/29/20) Kidney disease Morbid obesity Multiple falls Nonsustained paroxysmal ventricular tachycardia (12/2020) Right hip pain Venous insufficiency Vertigo, central Home Medications ursodiol 250 mg tablet (PAT 250) 375 mg PO BID GALLSTONES 04/07/19 [History Last Taken 07/20/22] potassium chloride 10 mEq tablet,extended release(part/cryst) 20 meq PO QODAY supplement 05/20/21 [History Last Taken 07/18/22] cyclobenzaprine 10 mg tablet 10 mg PO TID PRN Spasms 06/19/22 [History Last Taken 07/20/22] ondansetron 4 mg disintegrating tablet 4 mg PO Q8H PRN Nausea 06/19/22 [History Last Taken 07/20/22] sulfamethoxazole 400 mg-trimethoprim 80 mg tablet 1 tab PO DAILY LIVER TRANSPLANT 06/19/22 [History Last Taken 07/20/22] tacrolimus 0.5 mg capsule, immediate-release 0.5 mg PO 0900,2100 IMMUNE #60 caps 06/21/22 [Rx Last Taken 07/20/22] apixaban 5 mg tablet (Eliquis) 5 mg PO BID BLOOD THINNER 07/20/22 [History Last Taken 07/20/22] alprazolam 0.5 mg tablet 0.5 mg PO DAILY PRN Anxiety 3 days #3 tabs 07/25/22 [Rx Last Taken Unknown] lactulose 20 gram/30 mL oral solution 20 g PO BID LIVER 07/25/22 [History Last Taken Unknown] oxycodone 10 mg tablet 10 mg PO TID BREAKTHROUGH PAIN 3 days #9 tabs 07/25/22 [Rx Last Taken Unknown] colchicine 0.6 mg capsule 0.6 mg PO DAILY 30 days #30 caps 08/09/22 [Rx Last Taken Unknown] ferrous sulfate 325 mg (65 mg iron) tablet 325 mg PO DAILY 09/24/22 [History Last Taken Unknown] magnesium 1 tab PO DAILY 09/24/22 [History Last Taken Unknown] metoprolol tartrate 25 mg tablet 25 mg PO BID 09/24/22 [History Last Taken Unknown] Allergy/AdvReac Type Severity Reaction Status Date / Time pravastatin [From Pravachol] Allergy Hives Verified 09/19/22 15:15 Rcukfrj-MEY-DwK Reductase Allergy Hives Verified 09/19/22 15:15 Inhibitor [Pquhsva-Phc-Vnf Reductase Inhibitor] vancomycin Allergy NEEDS Verified 09/19/22 15:15 FOLLOW-UP zolpidem tartrate Allergy Hives Verified 09/19/22 15:15 [From Ambien] everolimus AdvReac Swelling Verified 09/19/22 15:15 gabapentin AdvReac NEEDS Verified 09/19/22 15:15 FOLLOW-UP Family History Mother Heart disease Father Heart disease Surgical History H/O shoulder surgery History of cardioversion (02/02/21) History of hip surgery Liver transplant recipient Status post liver transplant (07/2017) Social History household members: spouse Smoking Status: Never smoker alcohol intake: current Alcohol type: other substance use type: does not use ROS ROS ED ROS Narrative Constitutional: No fever, no chills. HEENT: No sore throat. No neck pain. No loss of vision. No rhinorrhea. Cardiovascular: No chest pain. Positive palpitations. No pedal edema. Respiratory: No cough, no shortness of breath. Abdominal: No abdominal pain. Positive nausea with rapid heart rate-resolved. No vomiting. Genitourinary: No dysuria. No hematuria. Musculoskeletal: No myalgias. Positive for left hip and left knee arthralgias. Unable to bear weight and walk at home. Neurologic: No headaches. No dizziness. No lightheadedness. Skin: No rash. No change in color. Psychiatric: No depression. No anxiety. EXAM Physical Exam Narrative Exam Narrative: Afebrile. Vital signs noted. HEENT: Normocephalic. Atraumatic. PERRL, EOMI. Neck soft and supple. No point tenderness or step off. Cardiovascular: Regular rate and rhythm. No murmurs, rubs, or gallops appreciated. Respiratory: No tachypnea. Lungs clear to auscultation bilaterally. Gastrointestinal: Abdomen soft, obese, nontender, with normoactive bowel sounds. No rebound or guarding. Neurological: Awake. Alert. Nonfocal, nonlateralizing. Skin: No rash. Normal color. No pallor. Musculoskeletal: No pedal edema. No pain with logrolling of left femur. Extension and flexion mechanism of left knee intact. Range of motion left knee limited secondary to subjective pain. Palpable dorsalis pedis pulse on left foot. No noted cellulitis of skin. Const Vital Signs: 09/24/22 13:41 09/24/22 13:44 09/24/22 13:45 Temperature 98.1 F Temperature Source Oral Pulse Rate 81 180 H Respiratory Rate 15 Respiratory Effort Normal Non-Labored Blood Pressure 140/60 H Blood Pressure Mean 86 Pulse Ox 97 Oxygen Delivery Method Room Air 09/24/22 14:42 09/24/22 15:41 Temperature 97.5 F L Temperature Source Temporal Pulse Rate 83 79 Respiratory Rate 14 15 Respiratory Effort Blood Pressure 135/62 H 115/55 L Blood Pressure Mean 86 75 Pulse Ox 98 98 Oxygen Delivery Method Room Air Room Air MDM MDM MDM Narrative Medical decision making narrative: His prehospital EKG was reviewed and he had a heart rate of 179 bpm/supraventricular tachycardia without acute ST elevation. On the cardiac nurse practitioner he is currently in a normal rhythm at a normal rate of 88 bpm. I had a lengthy discussion with the patient and his family, namely his and his daughter. He was able to walk with a walker somewhat yesterday, but now cannot ambulate. His is unable to lift him secondary to him being 158 kg in weight. He had been admitted to the TCU for rehab. I discussed the patient with social work who will see about admission to the TCU. Meanwhile, I do feel that basic laboratory work is indicated including EKG, CBC, CMP, and a high- sensitivity troponin. He does have history of chronic kidney disease, stage IIIa. Additionally, I do not feel that x-rays of the left hip are indicated because there is no evidence of dislocation, and he has an artificial hip on the left. I am not concerned about septic joint of his left knee. There is no noted swelling or erythema. I reviewed his laboratory work. He has a normal white count of 7.3, hemoglobin stable 11.3, platelet count normal at 264. CMP was reviewed and shows a BUN of 20 with a creatinine of 2.12 consistent with his stage III kidney disease, near his baseline. Glucose appropriately elevated at 117 with a normal anion gap of 9. AST and ALT are low at 11 each. High-sensitivity troponin is 17. Chest x- ray interpreted by myself shows no acute process, no pneumothorax or pneumonia/infiltrate. EKG was obtained and interpreted by myself and now demonstrates normal sinus rhythm with sinus arrhythmia at [address] changes. No STEMI. Although his urinalysis is pending, given his inability to ambulate secondary to intractable left leg pain, I discussed the patient initially with social work. He will require observation and precertification in order to be sent to the TCU where he prefers, and he was put on a waiting list. I will discuss the patient with Dr. Barkley for observation on [facility]. Patient is in stable condition. Lab Data Attestation: I reviewed the patient's lab results. Labs: Laboratory Results - last 24 hr 09/24/22 09/24/22 09/24/22 14:50 14:50 15:45 WBC 7.3 RBC 3.81 L Hgb 11.3 L Hct 35.3 L MCV 92.7 MCH 29.7 MCHC 32.0 RDW Std Deviation 62.7 H RDW Coeff of Maciel 18.4 H Plt Count 264 MPV 11.2 Sodium 136 Potassium 4.4 Chloride 104 Carbon Dioxide 23.0 Anion Gap 9 BUN 20 H Creatinine 2.12 H Estim Creat Clear Calc 37.78 Est GFR (MDRD) Af Amer 41 L Est GFR (MDRD) Non-Af 34 L BUN/Creatinine Ratio 9.4 L Glucose 117 H Calcium 8.8 Magnesium 1.8 Total Bilirubin 1.30 H AST 11 L ALT 11 L Alkaline Phosphatase 99 Troponin I High Sens 17 Total Protein 6.7 Albumin 2.2 L Globulin 4.5 H Albumin/Globulin Ratio 0.5 L Urine Color Yellow Urine Clarity Clear Urine pH 7.0 Ur Specific [place] 1.010 Urine Protein Negative Urine Glucose (UA) Normal Urine Ketones Negative Urine Occult Blood Negative Urine Nitrite Negative Urine Bilirubin Negative Urine Urobilinogen Normal Ur Leukocyte Esterase Negative Urine RBC 0 SEEN Urine WBC 0 SEEN Ur Squamous Epith Cells 0 SEEN Urine Bacteria 0 SEEN Urine Mucus 0 SEEN Radiography Diagnostic Testing: Clinical Impression(s) from Imaging Studies Chest X-Ray 09/24/22 14:50 IMPRESSION: No acute adenopathy seen. Electronically Signed: Pelon Graham MD at 15:03 EST , Discharge Plan Dx/Rx/DC Orders Clinical Impression: PAF (paroxysmal atrial fibrillation), Debility, Morbid obesity, Inability to ambulate due to multiple joints Disposition Disposition: Acute Care Hospital [facility] Discharge Date/Time: 09/24/22 16:04
--- NOTE | 2022-09-24 14:50 | RAD_ITS ---
STUDY: X-RAY CHEST REASON FOR EXAM: Male, 61 years old. CAD TECHNIQUE: Single AP portable view of the chest. COMPARISON: Comparison is made with prior study dated 09/12/2022. FINDINGS: EKG electrodes are seen. The lungs are clear and expanded. There is no demonstrated pleural abnormality. There is mild cardiac enlargement. Normal mediastinum and debora. Normal visualized pulmonary arteries. There is atherosclerotic tortuosity of the aortic arch and descending thoracic aorta. Normal visualized thoracic spine. Status post left reverse shoulder replacement. There is no demonstrated abnormality of the visualized soft tissue structures of the upper abdomen. RAD/Chest 1 View (Portable) IMPRESSION: No acute adenopathy seen. Electronically Signed: Pelon Graham MD at 15:03 EST ,
--- NOTE | 2022-09-24 14:57 | CM.ED ---
Social Work Note Referral Source: MD Dave Referral Reason: Discharge planning TONY met with MD Dave and reviewed patient's presenting symptoms and concerns about returning home. TONY reviewed patient's insurance and informed MD if patient needed SNF patient would need precert by insurance. SW to follow up with patient and family. TONY met with patient and patient's family and introduced herself and role as [facility] Picker Box Operator. SW requested permission to speak with patient's family present, patient agreed. Patient reviewed recent symptoms and explained due to his pain and inability to more his leg he doens't feel safe returning home. Patient explained he was concerned he would hurt his if his tried to help him. Patient states he has been to TCU in the past and is a current patient of Dr. Bose. SW was engaged in reflective listening and informed patient of the process to be admitted to the hospital as well as the process to be admitted to a SNF, explaining patient would need precert from his insurance. Patient voiced an understanding and explained TCU would be his first choice. SW will provide a list of other SNF options in network. TONY contacted Prema, admissions staff of TCU and informed her of patient's interest. TONY provided Prema with demographic information. Prema confirmed patient will need precert if they can accept. Prema will monitor for patient to be admitted. TONY informed MD Dave patient was receptive towards SNF and interested in TCU. informed SW hospitalist has been paged and will determine if patient will be admitted. TONY met with family and explained TCU staff is aware of patient's interest and confirmed precert is needed before he can go to a SNF. Patient and family voiced understanding and stated they will wait until they know for sure he has been admitted before canceling a doctor's appointment the patient has for tomorrow. TONY will continue to follow. Plan: SNF at d/c if patient is admitted to [facility]
[2022-09-24 15:00] LABS: Hematocrit 35.3 % (40-54); Hemoglobin 11.3 g/dL (13.0-16.5); Mean Corpuscular Hgb 29.7 pg (27.0-32.0); Mean Corpuscular Volume 92.7 fL (80-94); Mean Platelet Vol. 11.2 fl (6.2-12.0); Platelet Count 264 K/mm3 (150-450); RBC Distribution Width CV 18.4 % (11.6-14.6); RBC Distribution Width SD 62.7 fl (35.1-43.9); Red Blood Count 3.81 M/mm3 (4.6-6.2); White Blood Count 7.3 K/mm3 (4.4-11.0)
[2022-09-24 15:17] LABS: ALB/GLOB Ratio 0.5 RATIO (0.9-2.4); AST(SGOT) 11 U/L (15-37); Alanine Aminotransfer ALT/SGPT 11 U/L (16-61); Albumin, Serum 2.2 g/dL (3.2-5.0); Alkaline Phosphatase 99 U/L (45-117); Anion Gap 9 (5-15); BUN 20 mg/dL (7-18); BUN/Creat Ratio 9.4 RATIO (10-20); Calcium,Total 8.8 mg/dL (8.5-10.1); Chloride 104 mmol/L (98-107); Creatinine, Serum 2.12 mg/dL (0.70-1.30); EST Glomerular Filtration Rate 34 mL/min (>60); Est Glom Filt Rate - Afr Amer 41 mL/min (>60); Estimated Creatinine Clearance 37.78 ml/min; Globulin 4.5 g/dL (2.2-4.2); Glucose 117 mg/dL (74-106); Magnesium 1.8 mg/dL (1.6-2.6); Potassium 4.4 mmol/L (3.5-5.1); Protein, Total 6.7 g/dL (6.4-8.2); Sodium Level 136 mmol/L (136-145); Troponin-I HS 17 pg/mL (3.0-78.0)
--- NOTE | 2022-09-24 15:35 | HP.PCM.HOS_ITS ---
HPI - General General Date of Admission: 09/24/22 Date of Service: 09/24/22 Chief Complaint: palpitations HPI Narrative ESTEFANIA MILLER, is a 61 M with a PMH as outlined who presents via the ED with a complaint of palpitations. He has a history of afib and started having palpitations on the afternoon of admission, with HR going up to the 150s. He had associated nausea. On arrival in the ED, his heart rate had gone back to normal. He also complained of gout and pain in both feet. Says he was placed on allopurinol, which improved initially. He said he subsequently had pain in his left foot and left leg and it had been progressively worsening. He had been unable to ambulate and family couldnt take care of him. He had been able to ambu late with a walker previously, but wasnt able to today. He therefore requested placement in the TCU, but would need precert. Vitals at time of review were blood pressure of 135/60, pulse rate of 83, respiratory rate of 14 and oxygen sats of 98%. He was saturating 98% on room air. CBC showed hemoglobin of 11.3 with WBC of 7.3 and platelets of 264. Chemistry showed sodium of 136 with potassium of 4.4 and creatinine of 2.12. Total bilirubin was 1.3 and AST as well as ALT were 11, and ALP was within normal limits. Initial troponin was 17. He is being admitted to be managed for debility due to gout as well as intermittent tachycardia in the setting of A. fib. [facility] Medical History (HFpEF) heart failure with preserved ejection fraction Acidosis, lactic Acute hypotension Anemia of chronic disease Ascites Atherosclerotic heart disease of squ[place] coronary artery without angina pectoris Atrial fibrillation Atrial flutter with rapid ventricular response (02/02/21) Cellulitis Chronic renal failure, stage 3 (moderate) Cirrhosis Coronary artery disease Gout History of non-ST elevation myocardial infarction (NSTEMI) (12/29/20) Kidney disease Morbid obesity Multiple falls Nonsustained paroxysmal ventricular tachycardia (12/2020) Right hip pain Venous insufficiency Vertigo, central Home Medications ursodiol 250 mg tablet (PAT 250) 375 mg PO BID GALLSTONES 04/07/19 [History Last Taken 07/20/22] potassium chloride 10 mEq tablet,extended release(part/cryst) 20 meq PO QODAY supplement 01/19/21 [History Last Taken 07/18/22] cyclobenzaprine 10 mg tablet 10 mg PO TID PRN Spasms 06/19/22 [History Last Taken 07/20/22] ondansetron 4 mg disintegrating tablet 4 mg PO Q8H PRN Nausea 06/19/22 [History Last Taken 07/20/22] sulfamethoxazole 400 mg-trimethoprim 80 mg tablet 1 tab PO DAILY LIVER TRANSPLANT 06/19/22 [History Last Taken 07/20/22] tacrolimus 0.5 mg capsule, immediate-release 0.5 mg PO 0900,2100 IMMUNE #60 caps 06/21/22 [Rx Last Taken 07/20/22] apixaban 5 mg tablet (Eliquis) 5 mg PO BID BLOOD THINNER 07/20/22 [History Last Taken 07/20/22] alprazolam 0.5 mg tablet 0.5 mg PO DAILY PRN Anxiety 3 days #3 tabs 07/25/22 [Rx Last Taken Unknown] lactulose 20 gram/30 mL oral solution 20 g PO BID LIVER 07/25/22 [History Last Taken Unknown] oxycodone 10 mg tablet 10 mg PO TID BREAKTHROUGH PAIN 3 days #9 tabs 07/25/22 [Rx Last Taken Unknown] colchicine 0.6 mg capsule 0.6 mg PO DAILY 30 days #30 caps 08/09/22 [Rx Last Taken Unknown] ferrous sulfate 325 mg (65 mg iron) tablet 325 mg PO DAILY 09/24/22 [History Last Taken Unknown] magnesium 1 tab PO DAILY 09/24/22 [History Last Taken Unknown] metoprolol tartrate 25 mg tablet 25 mg PO BID 09/24/22 [History Last Taken Unknown] Allergy/AdvReac Type Severity Reaction Status Date / Time pravastatin [From Pravachol] Allergy Hives Verified 09/19/22 15:15 Tvadqti-RAZ-RdK Reductase Allergy Hives Verified 09/19/22 15:15 Inhibitor [Ddxliic-Wko-Xya Reductase Inhibitor] vancomycin Allergy NEEDS Verified 09/19/22 15:15 FOLLOW-UP zolpidem tartrate Allergy Hives Verified 09/19/22 15:15 [From Ambien] everolimus AdvReac Swelling Verified 09/19/22 15:15 gabapentin AdvReac NEEDS Verified 09/19/22 15:15 FOLLOW-UP Family History Mother Heart disease Father Heart disease Surgical History H/O shoulder surgery History of cardioversion (02/02/21) History of hip surgery Liver transplant recipient Status post liver transplant (07/2017) Social History household members: spouse Smoking Status: Never smoker alcohol intake: current Alcohol type: other substance use type: does not use ROS Review of Systems ROS Unobtainable: Denies due to encephalopathy Constitutional Constitutional: Reports fatigue, malaise and weakness; Denies anorexia, chills or fever(s) Eyes Eyes: Denies change in vision ENT HEENT: Denies dysphagia, headache(s), hearing loss, sinus pressure or sore throat Cardiovascular Cardiovascular: Reports palpitations and rapid heart rate; Denies chest pain, dyspnea on exertion, edema, lightheadedness, orthopnea, paroxysmal nocturnal dyspnea or syncope Respiratory/Chest Respiratory/Chest: Denies cough, dyspnea, productive cough, shortness of breath at rest or shortness of breath with exertion Gastrointestinal Gastrointestinal: Denies abdominal pain, constipation, diarrhea, dyspepsia, nausea or vomiting Genitourinary Genitourinary: Denies burning urination or dysuria Musculoskeletal Musculoskeletal: Reports joint pain; Denies arthralgias, back pain, joint stiffness, joint swelling, myalgias or neck pain Neurologic Neurologic: Denies confusion, dizziness, focal weakness, headache(s), numbness, seizures or syncope Psychiatric Psychiatric: Denies anxiety or depression Endocrine Endocrinology: Denies cold intolerance Hematologic/Lymphatic Hematologic/Lymphatic: Denies anemia Vital Signs Vital Signs Vital Signs: 09/24/22 13:41 09/24/22 13:44 09/24/22 13:45 Temperature 98.1 F Temperature Source Oral Pulse Rate 81 180 H Respiratory Rate 15 Respiratory Effort Normal Non-Labored Blood Pressure 140/60 H Blood Pressure Mean 86 Pulse Ox 97 Oxygen Delivery Method Room Air 09/24/22 14:42 Temperature Temperature Source Pulse Rate 83 Respiratory Rate 14 Respiratory Effort Blood Pressure 135/62 H Blood Pressure Mean 86 Pulse Ox 98 Oxygen Delivery Method Room Air Weight Weight: 348 lb 15.868 oz Body Mass Index (BMI) 50.1 Physical Exam Const alert, oriented x3 and no apparent distress Constitutional Narrative: super morbid obesity General Appearance: cooperative HEENT normocephalic, head/scalp atraumatic, hearing grossly normal bilaterally and moist oral mucous membranes Mouth: oral and palatal mucosa normal Eyes PERRL, EOMs intact bilaterally and conjunctivae normal Neck no lymphadenopathy and supple Resp normal respiratory effort, no retractions, no use of accessory muscles and clear to auscultation bilaterally Cardio regular rate, regular rhythm, S1 normal heart sound, S2 normal heart sound and no murmurs GI normal to inspection, nondistended, normoactive bowel sounds, soft to palpation, non-tender and non-distended Extremity normal to inspection, full ROM and no clubbing, cyanosis or edema Neuro oriented x3, CN's II-XII intact bilaterally, moves all extremities and no focal motor deficits Sensorium / Orientation: awake and alert Motor Exam: strength 5/5 throughout Psych affect normal Results Lab / Micro Data Result Diagrams: 09/25/22 05:02 09/25/22 05:02 Labs: Laboratory Results - last 24 hr 09/24/22 14:50: WBC 7.3, RBC 3.81 L, Hgb 11.3 L, Hct 35.3 L, MCV 92.7, MCH 29.7, MCHC 32.0, RDW Std Deviation 62.7 H, RDW Coeff of Maciel 18.4 H, Plt Count 264, MPV 11.2 09/24/22 14:50: Sodium 136, Potassium 4.4, Chloride 104, Carbon Dioxide 23.0, Anion Gap 9, BUN 20 H, Creatinine 2.12 H, Estim Creat Clear Calc 37.78, Est GFR (MDRD) Af Amer 41 L, Est GFR (MDRD) Non-Af 34 L, BUN/Creatinine Ratio 9.4 L, Glucose 117 H, Calcium 8.8, Magnesium 1.8, Total Bilirubin 1.30 H, AST 11 L, ALT 11 L, Alkaline Phosphatase 99, Troponin I High Sens 17, Total Protein 6.7, Albumin 2.2 L, Globulin 4.5 H, Albumin/Globulin Ratio 0.5 L Radiology Impression Chest X-Ray 09/24/22 14:50 IMPRESSION: No acute adenopathy seen. Electronically Signed: Pelon Graham MD at 15:03 EST , Assessment & Plan Assessment/Plan (1) Inability to ambulate due to multiple joints: (2) Debility: PLAN: Plan #Tachycardia * had resolved by the time he came to ED * does have a history of afib with such intermittent tachycardia * on eliquis and metoprolol * says he was told he needed a pacemaker by his PCP, so wants cardiology consulted. * #Debility due to gout * has pain in his joints o/a of gout * was recently treated with allopurinol which he says worked for a bit, but subsequently worsened * PT/OT consult * fall precautions * wants to be placed in SNF since family cant take care of him and he also cant ambulate well * #FELIPE and alpha 1 antitrypsyin deficiency * ; on ursodiol and lactulose * s/p liver transplant * on tacrolimus and ursodiol as well as bactrim. #HFpEF: on lasix. #CKD 3A: Cr at around baseline. Will monitor DVT prophylaxis: lovenox Code status; full code * Patient and family counseled extensively about different types of CODE STATUS including full code, DNR CCA and DNR CCA. Patient elects to be full code. Total tqww-fu-[id number] time 16 minutes. Charges/Coding Visit Charges Inpatient E&M: 49304 Init Hosp L2 Procedures Hospitalists Procedures: 27432 Advncd Care Plan 30 Min
[2022-09-24 15:41] VITALS: BP 115/55; PULSE 79; RESP 15; TEMP 36.4; O2SAT 98
--- NOTE | 2022-09-24 15:49 | NURSING ---
PCU OBS [facility] INABILLITY TO AMBULATE, DEBILITY, ATRIAL FIBULATION
[2022-09-24 15:51] LABS: Bacteria 0 SEEN /hpf (None Seen); Mucous, Urine 0 SEEN /hpf (<or=2+); Red Blood Cells-Urine 0 SEEN /hpf (0-5); Squamous Epithelial Cells - UA 0 SEEN /hpf (0-5); White Blood Cells 0 SEEN /hpf (0-5)
[2022-09-24 15:59] LABS: Color, Urine Yellow (Yellow); Glucose, Dipstick Normal (Normal); Ketone-Dipstick Negative (Negative); Leukocyte Esterase-Dipstick Negative /ul (Negative); Nitrite-Dipstick Negative (Negative); Occult Blood-Urine Negative /ul (Negative); Protein-Dipstick Negative (Negative); Urine Bilirubin Dipstick Negative (Negative); Urine Clarity Clear (Clear); Urine Urobilinogen Normal (Normal)
[2022-09-24 16:46] VITALS: BP 135/60; PULSE 75; RESP 16; TEMP 36.7; O2SAT 99
[2022-09-24 17:40] VITALS: BMI 50.5
[2022-09-24] MEDS: 0.9% Saline Lock 10 ML Syringe IV (18:37)
[2022-09-24] MEDS: Morphine 2 MG/ML Syringe IV (18:37)
[2022-09-24] MEDS: cycloBENZAPRine HCl 10 MG Tablet PO (18:37)
--- NOTE | 2022-09-24 19:11 | PCM.CONS.C ---
Assessment & Plan Assessment/Plan (1) PAF (paroxysmal atrial fibrillation): PLAN: Patient presents with paroxysmal atrial fibrillation. He is currently in sinus rhythm. I would like to reassess his left ventricular systolic function. I will recommend that we start him on a beta-satish with sotalol 80 mg twice a day adjusting for his renal function. He will continue with his anticoagulation at this time. (2) Atherosclerotic heart disease of [place] coronary artery without angina pectoris: PLAN: He does have atherosclerotic cardiovascular disease status post previous angioplasty and stenting. He has not had any angina and the plan to be to continue to follow him medically. Thank you for allowing me to participate in the care of your patient. Please don't hesitate to call if any issues arise. HPI Consult Data Date of Consult: 09/25/22 HPI Narrative HPI Narrative: ESTEFANIA MILLER, is a 61 M who presents to the emergency room with palpitations and shortness of breath. He was recently admitted to the hospital within the last 3 months with an episode of palpitations which turned out to be atrial fibrillation with a rapid ventricular response rate. It appears that he spontaneously converted back to sinus rhythm. He does have a history of coronary artery disease, obesity, hypertension. He also has a history of previous liver transplant. He says that he has been compliant with his medications he was scheduled to see the net lead architect in the office in the next few days and he started having the above symptoms so presented to the emergency room. In the emergency room he was back in sinus rhythm however on transfer to the progressive care unit he was noted to have a short burst of a narrow complex tachycardia. Review of his previous EKGs have demonstrated evidence of atrial flutter with a 2-1 conduction. His previous echocardiogram from 2020 demonstrated preserved left ventricular systolic function. He denies any chest pain or paroxysmal nocturnal dyspnea he does have chronically edematous legs. He says that he was put on medication with beta-satish as well as diltiazem and he became rather bradycardic and he was told by his primary physician that he may need a permanent pacemaker. He was subsequently taken off the diltiazem. [facility] Medical History (HFpEF) heart failure with preserved ejection fraction Acidosis, lactic Acute hypotension Anemia of chronic disease Ascites Atherosclerotic heart disease of mi[place] coronary artery without angina pectoris Atrial fibrillation Atrial flutter with rapid ventricular response (02/02/21) Cellulitis Chronic renal failure, stage 3 (moderate) Cirrhosis Coronary artery disease Gout History of non-ST elevation myocardial infarction (NSTEMI) (12/29/20) Kidney disease Morbid obesity Multiple falls Nonsustained paroxysmal ventricular tachycardia (12/2020) Right hip pain Venous insufficiency Vertigo, central Home Medications ursodiol 250 mg tablet (PAT 250) 375 mg PO BID GALLSTONES 04/07/19 [History Last Taken 07/20/22] potassium chloride 10 mEq tablet,extended release(part/cryst) 20 meq PO QODAY supplement 01/19/21 [History Last Taken 07/18/22] cyclobenzaprine 10 mg tablet 10 mg PO TID PRN Spasms 06/19/22 [History Last Taken 07/20/22] ondansetron 4 mg disintegrating tablet 4 mg PO Q8H PRN Nausea 06/19/22 [History Last Taken 07/20/22] sulfamethoxazole 400 mg-trimethoprim 80 mg tablet 1 tab PO DAILY LIVER TRANSPLANT 06/19/22 [History Last Taken 07/20/22] tacrolimus 0.5 mg capsule, immediate-release 0.5 mg PO 0900,2100 IMMUNE #60 caps 06/21/22 [Rx Last Taken 07/20/22] apixaban 5 mg tablet (Eliquis) 5 mg PO BID BLOOD THINNER 07/20/22 [History Last Taken 07/20/22] alprazolam 0.5 mg tablet 0.5 mg PO DAILY PRN Anxiety 3 days #3 tabs 07/25/22 [Rx Last Taken Unknown] lactulose 20 gram/30 mL oral solution 20 g PO BID LIVER 07/25/22 [History Last Taken Unknown] oxycodone 10 mg tablet 10 mg PO TID BREAKTHROUGH PAIN 3 days #9 tabs 07/25/22 [Rx Last Taken Unknown] colchicine 0.6 mg capsule 0.6 mg PO DAILY 30 days #30 caps 08/09/22 [Rx Last Taken Unknown] ferrous sulfate 325 mg (65 mg iron) tablet 325 mg PO DAILY 09/24/22 [History Last Taken Unknown] magnesium 1 tab PO DAILY 09/24/22 [History Last Taken Unknown] metoprolol tartrate 25 mg tablet 25 mg PO BID 09/24/22 [History Last Taken Unknown] Allergy/AdvReac Type Severity Reaction Status Date / Time pravastatin [From Pravachol] Allergy Hives Verified 09/19/22 15:15 Vwxijnb-PJU-DdZ Reductase Allergy Hives Verified 09/19/22 15:15 Inhibitor [Yrgqdvn-Uxr-Umf Reductase Inhibitor] vancomycin Allergy NEEDS Verified 09/19/22 15:15 FOLLOW-UP zolpidem tartrate Allergy Hives Verified 09/19/22 15:15 [From Ambien] everolimus AdvReac Swelling Verified 09/19/22 15:15 gabapentin AdvReac NEEDS Verified 09/19/22 15:15 FOLLOW-UP Family History Mother Heart disease Father Heart disease Surgical History H/O shoulder surgery History of cardioversion (02/02/21) History of hip surgery Liver transplant recipient Status post liver transplant (07/2017) Social History household members: spouse Smoking Status: Never smoker alcohol intake: current Alcohol type: other substance use type: does not use ROS Constitutional Constitutional: Denies fever(s) or weight loss Eyes Eyes: Reports systems reviewed and no addt'l complaints, except as documented ENT HEENT: Reports systems reviewed and no addt'l complaints, except as documented Cardiovascular Cardiovascular: Reports dyspnea on exertion and palpitations; Denies chest pain at rest, chest pain with activity, dyspnea at rest, edema or paroxysmal nocturnal dyspnea Respiratory/Chest Respiratory/Chest: Denies dyspnea on exertion, productive cough, shortness of breath at rest or shortness of breath with exertion Gastrointestinal Gastrointestinal: Denies change in bowel habits, nausea, vomiting or weight changes Genitourinary Genitourinary: Denies difficulty urinating Musculoskeletal Musculoskeletal: Denies joint stiffness or muscle weakness Integumentary Integumentary: Denies lesions Neurologic Neurologic: Denies dizziness or syncope Psychiatric Psychiatric: Denies anxiety Endocrine Endocrinology: Denies excessive sweating or fatigue Hematologic/Lymphatic Hematologic/Lymphatic: Denies anemia Allergic/Immunologic Allergic/Immunologic: Denies seasonal rhinorrhea Physical Exam Const alert, oriented x3 and no apparent distress General Appearance: cooperative HEENT hearing grossly normal bilaterally Head and Scalp: atraumatic Eyes EOMs intact bilaterally Neck General: normal visual inspection Chest inspection of chest normal and palpation of chest normal Resp normal respiratory effort Auscultation: clear to auscultation bilaterally Cardio regular rate, regular rhythm, S1 normal heart sound and S2 normal heart sound Jugular Venous Distention: JVD GI normal to inspection, nondistended, normoactive bowel sounds Extremity normal capillary refill and no pedal edema Peripheral Pulses: Yes pulses 2+ throughout and femoral pulses present Skin no rashes or lesions noted Neuro oriented x3 and CN's II-XII intact bilaterally Psych Appearance: grossly normal and appropriate Risk Stratification Risk Stratification Applicable: No Objective Data Vital Signs: Vital Signs Temp Pulse Resp BP Pulse Ox O2 Del Method 98.1 F 75 16 135/60 H 99 Room Air 09/24/22 16:46 09/24/22 16:46 09/24/22 16:46 09/24/22 16:46 09/24/22 16:46 09/24/22 16:46 Oxygen Delivery Method Room Air Weight: 352 lb 8.306 oz Body Mass Index (BMI) 50.5 Intake & Output: Intake and Output for Last 24 Hours 09/22/22 09/23/22 09/24/22 23:59 23:59 23:59 Intake Total 450 / 450 Balance 450 / 450 Lab / Micro Data Result Diagrams: 09/25/22 05:02 09/25/22 05:02 Labs: Laboratory Results - last 24 hr 09/24/22 14:50: WBC 7.3, RBC 3.81 L, Hgb 11.3 L, Hct 35.3 L, MCV 92.7, MCH 29.7, MCHC 32.0, RDW Std Deviation 62.7 H, RDW Coeff of Maciel 18.4 H, Plt Count 264, MPV 11.2 09/24/22 14:50: Sodium 136, Potassium 4.4, Chloride 104, Carbon Dioxide 23.0, Anion Gap 9, BUN 20 H, Creatinine 2.12 H, Estim Creat Clear Calc 37.78, Est GFR (MDRD) Af Amer 41 L, Est GFR (MDRD) Non-Af 34 L, BUN/Creatinine Ratio 9.4 L, Glucose 117 H, Calcium 8.8, Magnesium 1.8, Total Bilirubin 1.30 H, AST 11 L, ALT 11 L, Alkaline Phosphatase 99, Troponin I High Sens 17, Total Protein 6.7, Albumin 2.2 L, Globulin 4.5 H, Albumin/Globulin Ratio 0.5 L 09/24/22 15:45: Urine Color Yellow, Urine Clarity Clear, Urine pH 7.0, Ur Specific [place] 1.010, Urine Protein Negative, Urine Glucose (UA) Normal, Urine Ketones Negative, Urine Occult Blood Negative, Urine Nitrite Negative, Urine Bilirubin Negative, Urine Urobilinogen Normal, Ur Leukocyte Esterase Negative, Urine RBC 0 SEEN, Urine WBC 0 SEEN, Ur Squamous Epith Cells 0 SEEN, Urine Bacteria 0 SEEN, Urine Mucus 0 SEEN Cardiology Labs/Tests 09/24/22 14:50: WBC 7.3, RBC 3.81 L, Hgb 11.3 L, Hct 35.3 L, MCV 92.7, MCH 29.7, MCHC 32.0, Plt Count 264, MPV 11.2 09/24/22 14:50: Sodium 136, Potassium 4.4, Chloride 104, Carbon Dioxide 23.0, Anion Gap 9, BUN 20 H, Creatinine 2.12 H, Est GFR (MDRD) Af Amer 41 L, Est GFR (MDRD) Non-Af 34 L, BUN/Creatinine Ratio 9.4 L, Glucose 117 H, Calcium 8.8, Magnesium 1.8, Total Bilirubin 1.30 H 09/24/22 15:45: Urine Color Yellow, Urine Clarity Clear, Urine pH 7.0, Ur Specific [place] 1.010, Urine Protein Negative, Urine Glucose (UA) Normal, Urine Ketones Negative, Urine Occult Blood Negative, Urine Nitrite Negative, Urine Bilirubin Negative, Urine Urobilinogen Normal, Ur Leukocyte Esterase Negative, Urine RBC 0 SEEN, Urine WBC 0 SEEN Rhythm: EKG: ECHO: Stress Test: Cardiac Cath: PCI: CT Surgery: Holter monitor: EPS: PPM: CXR: Chest CT Scan: Radiography Diagnostic Testing: Radiology Impression Chest X-Ray 09/24/22 14:50 IMPRESSION: No acute adenopathy seen. Electronically Signed: Pelon Graham MD at 15:03 EST ,
--- NOTE | 2022-09-24 19:18 | ECHOLC_ITS ---
Reason For Study: Afib/Flutter Procedure This was a limited 2D transthoracic echocardiogram. The study was technically limited. The study was technically difficult. Contrast injection was performed. Exam performed portable in patient room. Left Ventricle Normal left ventricle. Mild concentric left ventricular hypertrophy. Left ventricular systolic function is normal. The estimated ejection fraction is 55 %. No regional wall motion abnormalities noted. Right Ventricle Normal RV size. Normal systolic function. Great Vessels Normal aortic root. Pericardium/Pleural No pericardial effusion. Medication Diluted definity 4ml given slow IV push to enhance endocardial definition. MMode/2D Measurements & Calculations LVIDd: 5.1 cm IVSd: 1.2 cm LA dimension: 4.1 cm LVIDs: 3.2 cm LVPWd: 1.2 cm FS: 38.2 % Doppler Measurements & Calculations MV E max jovanna: 53.3 cm/sec ECHO/Echo Limited w/Contrast Interpretation Summary Normal left ventricle. Left ventricular systolic function is normal. The estimated ejection fraction is 55 %. Mild concentric left ventricular hypertrophy. Ordering Physician: Abdoul Orozco Referring Physician: Lance Bose Chi Performed By: Marcial Hair RCS
[2022-09-24 19:30] LABS: Troponin-I HS 45 pg/mL (3.0-78.0)
[2022-09-24 21:34] LABS: Troponin-I HS 51 pg/mL (3.0-78.0)
[2022-09-24 22:07] VITALS: BP 125/57; PULSE 130; RESP 18; TEMP 37.1; O2SAT 93
[2022-09-24] MEDS: Ursodiol 250 MG Tablet 375 MG PO (22:11)
[2022-09-24] MEDS: Tacrolimus 0.5 MG Capsule PO (22:12)
[2022-09-24] MEDS: Sotalol Hydrochloride 80 MG Tablet PO (22:12)
[2022-09-24] MEDS: oxyCODONE 5 MG Tablet 10 MG PO (22:12)
[2022-09-24] MEDS: APIXABAN 5 MG TABLET PO (22:12)
[2022-09-25] VITALS (8 sets, daily range): BP systolic 121–126; BP diastolic 56–86; PULSE 57–72; RESP 16–18; TEMP 36.8–37.2; O2SAT 95–97
--- NOTE | 2022-09-25 00:12 | EKG12_ITS ---
Test Reason : MED Blood Pressure : / mmHG Vent. Rate : 127 BPM Atrial Rate : 127 BPM P-R Int : 152 ms QRS Dur : 086 ms QT Int : 308 ms P-R-T Axes : 000 -46 029 degrees QTc Int : 447 ms Sinus tachycardia Low voltage QRS Left anterior fascicular block Abnormal ECG Confirmed by CARLA SHIPMAN, SUGAR ([id number]), online editor JULIO CÉSAR SOLORIO ([id number]) on 09/26/2022 9:07:09 AM Referred By: Confirmed By:SUGAR AGUIRRE MD
[2022-09-25] MEDS: 0.9% Saline Lock 10 ML Syringe IV ×4 (04:33→20:48)
[2022-09-25] MEDS: Morphine 2 MG/ML Syringe IV ×4 (04:33→20:48)
[2022-09-25 05:43] LABS: Absolute Lymphocyte Count 1.23 X10^3/uL (0.83-4.51); Absolute Neutrophil Count 2.9 X10^3/uL (2.0-7.7); Basophil# 0.02 X10^3/uL; Basophil% 0.4 % (0-1); Eosinophil# 0.13 X10^3/uL; Eosinophils% 2.6 % (0-5); Hematocrit 30.5 % (40-54); Hemoglobin 9.8 g/dL (13.0-16.5); Lymphocyte # 1.23 X10^3/ul (0.83-4.51); Lymphocyte % 24.6 % (19-41); Mean Corp Hgb Conc 32.1 g/dL (32-36); Mean Corpuscular Hgb 29.5 pg (27.0-32.0); Mean Corpuscular Volume 91.9 fL (80-94); Mean Platelet Vol. 10.7 fl (6.2-12.0); Monocyte# 0.71 X10^3/uL; Monocyte% 14.2 % (0-10); NRBC Flagged by Analyzer 0 % (0-5); Neutrophil # 2.89 X10^3/uL (2.7-7.7); Neutrophil % 57.8 % (47-70); Platelet Count 222 K/mm3 (150-450); RBC Distribution Width CV 18.2 % (11.6-14.6); RBC Distribution Width SD 61.5 fl (35.1-43.9); Red Blood Count 3.32 M/mm3 (4.6-6.2)
[2022-09-25 06:12] LABS: Anion Gap 7 (5-15); BUN 24 mg/dL (7-18); BUN/Creat Ratio 11.3 RATIO (10-20); Calcium,Total 8.2 mg/dL (8.5-10.1); Chloride 102 mmol/L (98-107); Creatinine, Serum 2.12 mg/dL (0.70-1.30); EST Glomerular Filtration Rate 34 mL/min (>60); Est Glom Filt Rate - Afr Amer 41 mL/min (>60); Estimated Creatinine Clearance 37.78 ml/min; Glucose 107 mg/dL (74-106); Potassium 4.2 mmol/L (3.5-5.1); Sodium Level 135 mmol/L (136-145)
--- NOTE | 2022-09-25 07:30 | PN.CARD_ITS ---
Subjective Subjective Patient seen and evaluated. Objective Data Vital Signs: Vital Signs Temp Pulse Resp BP Pulse Ox O2 Del Method 98.6 F 72 18 121/65 H 97 Room Air 09/25/22 04:30 09/25/22 04:30 09/25/22 04:30 09/25/22 04:30 09/25/22 04:30 09/25/22 04:37 Oxygen Delivery Method Room Air Weight: 352 lb 8.306 oz Body Mass Index (BMI) 50.5 Intake & Output: Intake and Output for Last 24 Hours 09/23/22 09/24/22 09/25/22 23:59 23:59 23:59 Intake Total 450 / 450 Output Total 150 / 150 Balance 300 / 300 Lab / Micro Data Result Diagrams: 09/25/22 05:02 09/25/22 05:02 Labs: Laboratory Results - last 24 hr 09/24/22 14:50: WBC 7.3, RBC 3.81 L, Hgb 11.3 L, Hct 35.3 L, MCV 92.7, MCH 29.7, MCHC 32.0, RDW Std Deviation 62.7 H, RDW Coeff of [place] 18.4 H, Plt Count 264, MPV 11.2 09/24/22 14:50: Sodium 136, Potassium 4.4, Chloride 104, Carbon Dioxide 23.0, Anion Gap 9, BUN 20 H, Creatinine 2.12 H, Estim Creat Clear Calc 37.78, Est GFR (MDRD) Af Amer 41 L, Est GFR (MDRD) Non-Af 34 L, BUN/Creatinine Ratio 9.4 L, Glucose 117 H, Calcium 8.8, Magnesium 1.8, Total Bilirubin 1.30 H, AST 11 L, ALT 11 L, Alkaline Phosphatase 99, Troponin I High Sens 17, Total Protein 6.7, Albumin 2.2 L, Globulin 4.5 H, Albumin/Globulin Ratio 0.5 L 09/24/22 15:45: Urine Color Yellow, Urine Clarity Clear, Urine pH 7.0, Ur Specific [place] 1.010, Urine Protein Negative, Urine Glucose (UA) Normal, Urine Ketones Negative, Urine Occult Blood Negative, Urine Nitrite Negative, Urine Bilirubin Negative, Urine Urobilinogen Normal, Ur Leukocyte Esterase Negative, Urine RBC 0 SEEN, Urine WBC 0 SEEN, Ur Squamous Epith Cells 0 SEEN, Urine Bacteria 0 SEEN, Urine Mucus 0 SEEN 09/24/22 18:14: Troponin I High Sens 45 09/24/22 20:40: Troponin I High Sens 51 09/25/22 05:02: WBC 5.0, RBC 3.32 L, Hgb 9.8 L, Hct 30.5 L, MCV 91.9, MCH 29.5, MCHC 32.1, RDW Std Deviation 61.5 H, RDW Coeff of [place]iel 18.2 H, Plt Count 222, MPV 10.7, Immature Gran % (Auto) 0.400, Neut % (Auto) 57.8, Lymph % (Auto) 24.6, [place] % (Auto) 14.2 H, Eos % (Auto) 2.6, Baso % (Auto) 0.4, Absolute Neuts (auto) 2.9, Absolute Lymphs (auto) 1.23, Nucleated RBC % 0 09/25/22 05:02: Sodium 135 L, Potassium 4.2, Chloride 102, Carbon Dioxide 26.0, Anion Gap 7, BUN 24 H, Creatinine 2.12 H, Estim Creat Clear Calc 37.78, Est GFR (MDRD) Af Amer 41 L, Est GFR (MDRD) Non-Af 34 L, BUN/Creatinine Ratio 11.3, Glucose 107 H, Calcium 8.2 L Cardiology Labs/Tests 09/24/22 14:50: WBC 7.3, RBC 3.81 L, Hgb 11.3 L, Hct 35.3 L, MCV 92.7, MCH 29.7, MCHC 32.0, Plt Count 264, MPV 11.2 09/24/22 14:50: Sodium 136, Potassium 4.4, Chloride 104, Carbon Dioxide 23.0, Anion Gap 9, BUN 20 H, Creatinine 2.12 H, Est GFR (MDRD) Af Amer 41 L, Est GFR (MDRD) Non-Af 34 L, BUN/Creatinine Ratio 9.4 L, Glucose 117 H, Calcium 8.8, Magnesium 1.8, Total Bilirubin 1.30 H 09/24/22 15:45: Urine Color Yellow, Urine Clarity Clear, Urine pH 7.0, Ur Specific [place] 1.010, Urine Protein Negative, Urine Glucose (UA) Normal, Urine Ketones Negative, Urine Occult Blood Negative, Urine Nitrite Negative, Urine Bilirubin Negative, Urine Urobilinogen Normal, Ur Leukocyte Esterase Negative, U rine RBC 0 SEEN, Urine WBC 0 SEEN 09/25/22 05:02: WBC 5.0, RBC 3.32 L, Hgb 9.8 L, Hct 30.5 L, MCV 91.9, MCH 29.5, MCHC 32.1, Plt Count 222, MPV 10.7, Immature Gran % (Auto) 0.400, Neut % (Auto) 57.8, Lymph % (Auto) 24.6, [place] % (Auto) 14.2 H, Eos % (Auto) 2.6, Baso % (Auto) 0.4, Absolute Neuts (auto) 2.9, Nucleated RBC % 0 09/25/22 05:02: Sodium 135 L, Potassium 4.2, Chloride 102, Carbon Dioxide 26.0, Anion Gap 7, BUN 24 H, Creatinine 2.12 H, Est GFR (MDRD) Af Amer 41 L, Est GFR (MDRD) Non-Af 34 L, BUN/Creatinine Ratio 11.3, Glucose 107 H, Calcium 8.2 L Rhythm: EKG: ECHO: Stress Test: Cardiac Cath: PCI: CT Surgery: Holter monitor: EPS: PPM: CXR: Chest CT Scan: Radiography Diagnostic Testing: Radiology Impression Chest X-Ray 09/24/22 14:50 IMPRESSION: No acute adenopathy seen. Electronically Signed: Pelon Graham MD at 15:03 EST Reading Location ID and State: [address] [place] [address] , Service support , Physical Exam Const alert, oriented x3 and no apparent distress General Appearance: cooperative HEENT hearing grossly normal bilaterally Head and Scalp: atraumatic Eyes EOMs intact bilaterally Neck General: normal visual inspection Chest inspection of chest normal and palpation of chest normal Resp normal respiratory effort Auscultation: clear to auscultation bilaterally Cardio regular rate, regular rhythm, S1 normal heart sound and S2 normal heart sound Jugular Venous Distention: JVD GI normal to inspection, nondistended, normoactive bowel sounds Extremity normal capillary refill and no pedal edema Peripheral Pulses: Yes pulses 2+ throughout and femoral pulses present Skin no rashes or lesions noted Neuro oriented x3 and CN's II-XII intact bilaterally Psych Appearance: grossly normal and appropriate Assessment & Plan Assessment/Plan (1) PAF (paroxysmal atrial fibrillation): PLAN: Patient presents with paroxysmal atrial fibrillation. He is currently in sinus rhythm. I would like to reassess his left ventricular systolic function. I had initially recommended sotalol but because of his renal dysfunction it may lead to significant dosage readjustment. We will therefore need to reconsider this. Should consider Tikosyn or amiodarone and consider A. fib ablation. At this time will recommend metoprolol and low-dose amiodarone He will continue with his anticoagulation at this time. (2) Atherosclerotic heart disease of [place] coronary artery without angina pectoris: PLAN: He does have atherosclerotic cardiovascular disease status post previous angioplasty and stenting. He has not had any angina and the plan to be to continue to follow him medically. Thank you for allowing me to participate in the care of your patient. Please don't hesitate to call if any issues arise.
--- NOTE | 2022-09-25 09:18 | CASEMGMT ---
TCU can take patient pending pre-cert. Kaley Riddle DIRECTOR OF MEDICAL REVIEW SEW ON OPERATOR
[2022-09-25] MEDS: Potassium Chloride Oral Tablet 20 MEQ PO (09:22)
[2022-09-25] MEDS: Ursodiol 250 MG Tablet 375 MG PO ×2 (09:22→20:47)
[2022-09-25] MEDS: Lactulose 20 GM/30 ML UDC PO ×2 (09:23→10:00)
[2022-09-25] MEDS: APIXABAN 5 MG TABLET PO ×2 (09:23→20:48)
[2022-09-25] MEDS: Smz/Tmp Ds Tablet 0.5 TABLET PO (09:24)
[2022-09-25] MEDS: Tacrolimus 0.5 MG Capsule PO ×2 (09:24→20:48)
[2022-09-25] MEDS: Ferrous Sulfate 325 MG Tablet PO (09:24)
[2022-09-25] MEDS: Amiodarone 200 MG Tablet PO ×2 (09:32→20:48)
[2022-09-25] MEDS: Metoprolol Tartrate 50 MG Tablet PO ×2 (09:32→20:48)
--- NOTE | 2022-09-25 14:15 | CASEMGMT ---
ASHANTI BROOKE in to discuss MOCK form with patient and . ASHANTI BROOKE explained MOCK form with patient, patient and voiced understanding. Patient requested to sign MOCK form. signed MOCK form and filed in chart. Patient provided with copy of signed MOCK form. Patient and had no further questions or concerns at this time.
[2022-09-25] MEDS: LORazepam 1 MG Tablet PO (14:23)
--- NOTE | 2022-09-25 15:43 | NURSING ---
Pt unable to tolerate MRI d/t decreased mobility of left arm and inability to raise left arm above head to more easily fit in scanner for lumbar exam. ASHANTI Florentino made aware.
--- NOTE | 2022-09-25 16:48 | CT_ITS ---
STUDY: CT LUMBAR SPINE WITHOUT CONTRAST REASON FOR EXAM: Male, 61 years old. Lumbar radiculopathy RADIATION DOSAGE (If Supplied By Facility): CTDIvol = ( 61.03 ) mGy, DLP = ( 2292.20 ) mGycm TECHNIQUE: The patient was scanned in a multi detector CT scanner. High resolution transaxial imaging was performed. Images were obtained from to . Sagittal and coronal images were reconstructed. Individualized dose optimization techniques were used for this CT. COMPARISON: July 10, 2010 report only FINDINGS: Normal lumbar lordosis. There is severely levoscoliosis. Normal vertebrae of the lumbar spine. L1-2: Narrowed disc space with degenerative endplate changes and minor bulging annulus with right posterolateral/foraminal disc/osteophyte protrusion.. Asymmetric right facet arthropathy.. Normal central canal and left lateral recess. Minor left neural foraminal stenosis. Moderate right lateral recess stenosis and severe neural foraminal stenosis L2-3: Severe degenerative endplate changes. Narrowed disc space and mild bulging disc osteophyte complex with small right paracentral osteophyte protrusion. Normal central canal bilateral lateral recess and nerve root foramen. Mild right lateral recess stenosis and severe neural foraminal stenosis. L3-4: Normal endplates. Normal disc height and small left inferolateral/foraminal disc protrusion. Asymmetric left facet arthropathy.. Normal central canal and bilateral lateral recesses. Mild right neural foraminal stenosis and moderate to severe narrowing on the left exaggerated by pedicles L4-5: Normal endplates. Normal disc height and minimal annular bulge with tiny central disc protrusion. Mild facet arthropathy slightly worse on the left.. Normal central canal and bilateral lateral recesses. Moderate bilateral neural foraminal stenosis exaggerated by shortened pedicles L5-S1: Normal endplates. Normal disc height and minimal annular bulge.. Facet arthropathy more severe on the left Normal central canal and bilateral lateral recesses. Mild to moderate bilateral neural foraminal encroachment slightly worse on the left exaggerated by shortened pedicles. Diffusely atrophic right psoas muscles.. CT/Spine Lumbar without Contrast IMPRESSION: No evidence for acute fracture or other significant bony pathology. Severe levoscoliosis and degenerative changes most severe at L1-2 and L2-3. Multilevel spinal stenosis secondary to bulging annulus facet arthropathy and exaggerated by shortened pedicles. If patient cannot have an MRI CT myelography would be helpful for further assessment Electronically Signed: Alexander Patel MD at 17:47 EST ,
--- NOTE | 2022-09-25 17:02 | PN.HOSP_ITS ---
Subjective Subjective Patient is now in normal sinus rhythm. He indicates he does feel his A. fib with RVR slightly but nothing significant. His biggest issue and why he came in was predominantly his leg pain. It starts in his lateral to posterior hip region and radiates down to his calf. He thought that this might be his gout however it appears that this is most likely a lumbar radiculopathy. We did try to obtain an MRI to see if his pain would be amenable to injection however he was not able to tolerate the MRI based on his size and his claustrophobia. A CT of his lumbar spine is pending. He did not feel he would be able to go home in his current condition based on his pain. Patient without any changes in bowel and bladder and denies any tingling numbness or weakness and his biggest complaint is pain at this time. Objective Data Objective Data Vital Signs: Vital Signs Temp Pulse Resp BP Pulse Ox O2 Del Method 98.2 F 63 16 123/86 H 97 Room Air 09/25/22 14:07 09/25/22 14:07 09/25/22 14:07 09/25/22 14:07 09/25/22 14:07 09/25/22 14:07 Oxygen Delivery Method Room Air Weight: 159.9 kg Body Mass Index (BMI) 50.5 Intake & Output: Intake and Output for Last 24 Hours 09/23/22 09/24/22 09/25/22 23:59 23:59 23:59 Intake Total 450 / 450 Output Total 150 / 150 200 / 200 Balance 300 / 300 -200 / -200 Lab / Micro Data Result Diagrams: 09/25/22 05:02 09/25/22 05:02 Labs: Laboratory Results - last 24 hr 09/24/22 18:14: Troponin I High Sens 45 09/24/22 20:40: Troponin I High Sens 51 09/25/22 05:02: WBC 5.0, RBC 3.32 L, Hgb 9.8 L, Hct 30.5 L, MCV 91.9, MCH 29.5, MCHC 32.1, RDW Std Deviation 61.5 H, RDW Coeff of Maciel 18.2 H, Plt Count 222, MPV 10.7, Immature Gran % (Auto) 0.400, Neut % (Auto) 57.8, Lymph % (Auto) 24.6, [place] % (Auto) 14.2 H, Eos % (Auto) 2.6, Baso % (Auto) 0.4, Absolute Neuts (auto) 2.9, Absolute Lymphs (auto) 1.23, Nucleated RBC % 0 09/25/22 05:02: Sodium 135 L, Potassium 4.2, Chloride 102, Carbon Dioxide 26.0, Anion Gap 7, BUN 24 H, Creatinine 2.12 H, Estim Creat Clear Calc 37.78, Est GFR (MDRD) Af Amer 41 L, Est GFR (MDRD) Non-Af 34 L, BUN/Creatinine Ratio 11.3, Glucose 107 H, Calcium 8.2 L Radiography Diagnostic Testing: Radiology Impression Echocardiogram 09/24/22 19:18 Interpretation Summary Normal left ventricle. Left ventricular systolic function is normal. The estimated ejection fraction is 55 %. Mild concentric left ventricular hypertrophy. Ordering Physician: Abdoul Orozco Referring Physician: Lance Bose Chi Performed By: Marcial Hair RCS Physical Exam Const alert, oriented x3 and no apparent distress Constitutional Narrative: Morbidly obese, upper middle-aged white male who appears older than stated age, lying in bed, appears comfortable at this time however does have pain with active and passive movement of his left lower extremity, is at bedside HEENT head/scalp atraumatic and moist oral mucous membranes Head and Scalp: normocephalic Resp normal respiratory effort, no retractions, no use of accessory muscles and clear to auscultation bilaterally Auscultation: Negative for crackles, rhonchi or wheezes Cardio regular rate, regular rhythm, S1 normal heart sound, S2 normal heart sound, no murmurs, no rub, no gallops and no clicks GI normal to inspection, nondistended, normoactive bowel sounds, soft to palpation and non-tender Extremity no clubbing, cyanosis or edema Extremity Narrative: Straight leg raise left lower extremity decreased strength in left lower extremity secondary to pain but no considerable weakness, reflexes are 1+ bilaterally at the patella, due to positioning and was unable to check ankle reflexes Neuro oriented x3 and CN's II-XII intact bilaterally Neuro Narrative: Decreased movement left lower extremity secondary to pain but does not appear to have any motor weakness Speech: speech normal Psych affect normal Psych Narrative: Pleasant, appropriately interactive Assessment & Plan Assessment/Plan (1) Inability to ambulate due to ankle or foot: (2) Inability to walk: (3) PAF (paroxysmal atrial fibrillation): (4) Lumbar radiculopathy: PLAN: Plan A. fib with RVR -Patient with known history of paroxysmal atrial fibrillation -Did convert to sinus rhythm -Continue home metoprolol at an increased dose of 50 mg twice daily -Continue amiodarone as ordered -Per documentation from cardiology patient may need Tikosyn versus ablation in the future -Continue to monitor on telemetry -Continue home Eliquis -Echocardiogram done today shows an EF of 55%, mild LVH and no other significant abnormalities were noted -Cardiology following-appreciate input Left lumbar radiculopathy -Patient describing lumbar radiculopathy -Try to obtain MRI based on symptoms as he is having significant difficulty moving and we thought possibly pain management may be of benefit however he was unable to tolerate the MRI based on claustrophobia and size -We will try to get CT of the lumbar spine to help discern what level is problematic -Depending on CT results will consult Dr. Villagran from pain management for further assistance -Continue PT/OT consultation -As needed pain medication as ordered--> including Flexeril, scheduled oxycodone -These are chronic medications -May need placement prior to discharge depending on mobility Inability ambulate -Related to pain from above -Continue PT/OT -Imaging pending Chronic anemia -Counts down a bit today but suspect dilutional -Repeat CBC in a.m. -Continue home iron CKD stage IIIb -Serum creatinine is at baseline 2.12 today -Repeat CBC in a.m. -Avoid nephrotoxins FELIPE/alpha-1 antitrypsin deficiency status post liver transplant -Liver transplant 2017 -Follows at [facility] -Continue tacrolimus -Continue ursodiol -Continue home Bactrim -Continue home lactulose History of gout -Continue home colchicine Chronic pain due to osteoarthritis/rheumatoid arthritis -Continue home oxycodone -Continue home Flexeril -Patient follows as an outpatient with pain management -Patient is not on any chronic rheumatoid medications HFpEF -Patient is no longer on diuretics at baseline -Had recent echo December 2020 in our system with an EF of 50 to 65% and otherwise unremarkable DVT prophylaxis -Continue Eliquis CODE STATUS -Full code Charges/Coding Visit Charges Inpatient E&M: 47747 Subs Hosp L2
[2022-09-26] VITALS (9 sets, daily range): BP systolic 115–128; BP diastolic 56–63; PULSE 61–72; RESP 16–18; TEMP 36.7–37.3; O2SAT 93–96
[2022-09-26] MEDS: Morphine 2 MG/ML Syringe IV (03:15)
[2022-09-26] MEDS: 0.9% Saline Lock 10 ML Syringe IV (03:16)
[2022-09-26] MEDS: cycloBENZAPRine HCl 10 MG Tablet PO ×2 (03:16→22:10)
[2022-09-26 05:59] LABS: Absolute Lymphocyte Count 1.37 X10^3/uL (0.83-4.51); Absolute Neutrophil Count 2.5 X10^3/uL (2.0-7.7); Basophil# 0.02 X10^3/uL; Basophil% 0.4 % (0-1); Eosinophil# 0.15 X10^3/uL; Eosinophils% 3.2 % (0-5); Hematocrit 31.5 % (40-54); Hemoglobin 10.1 g/dL (13.0-16.5); Lymphocyte # 1.37 X10^3/ul (0.83-4.51); Lymphocyte % 28.8 % (19-41); Mean Corp Hgb Conc 32.1 g/dL (32-36); Mean Corpuscular Hgb 29.2 pg (27.0-32.0); Mean Platelet Vol. 10.4 fl (6.2-12.0); Monocyte# 0.68 X10^3/uL; Monocyte% 14.3 % (0-10); NRBC Flagged by Analyzer 0 % (0-5); Neutrophil # 2.53 X10^3/uL (2.7-7.7); Neutrophil % 53.1 % (47-70); Platelet Count 238 K/mm3 (150-450); RBC Distribution Width CV 17.9 % (11.6-14.6); RBC Distribution Width SD 59.5 fl (35.1-43.9); Red Blood Count 3.46 M/mm3 (4.6-6.2); White Blood Count 4.8 K/mm3 (4.4-11.0)
[2022-09-26] MEDS: oxyCODONE 5 MG Tablet 10 MG PO ×2 (06:03→14:08)
[2022-09-26 06:14] LABS: International Normalized Ratio 1.8; Prothrombin Time (Protime)PT. 20.2 SECONDS (11.7-14.9)
[2022-09-26 06:39] LABS: ALB/GLOB Ratio 0.5 RATIO (0.9-2.4); AST(SGOT) 42 U/L (15-37); Alanine Aminotransfer ALT/SGPT 18 U/L (16-61); Albumin, Serum 1.9 g/dL (3.2-5.0); Alkaline Phosphatase 107 U/L (45-117); Anion Gap 4 (5-15); BUN 24 mg/dL (7-18); BUN/Creat Ratio 12.4 RATIO (10-20); Calcium,Total 8.4 mg/dL (8.5-10.1); Chloride 104 mmol/L (98-107); Creatinine, Serum 1.94 mg/dL (0.70-1.30); EST Glomerular Filtration Rate 38 mL/min (>60); Est Glom Filt Rate - Afr Amer 45 mL/min (>60); Estimated Creatinine Clearance 41.29 ml/min; Globulin 4.2 g/dL (2.2-4.2); Glucose 125 mg/dL (74-106); Magnesium 1.7 mg/dL (1.6-2.6); Phosphorus 2.6 mg/dL (2.5-4.9); Potassium 4.4 mmol/L (3.5-5.1); Protein, Total 6.1 g/dL (6.4-8.2); Sodium Level 135 mmol/L (136-145)
--- NOTE | 2022-09-26 07:31 | PN.CARD_ITS ---
Subjective Subjective Patient seen and evaluated. Sleeping at this time. Objective Data Vital Signs: Vital Signs Temp Pulse Resp BP Pulse Ox O2 Del Method 98.0 F 69 18 118/59 L 95 Room Air 09/26/22 03:13 09/26/22 03:13 09/26/22 03:13 09/26/22 06:01 09/26/22 03:13 09/26/22 06:51 Oxygen Delivery Method Room Air Weight: 352 lb 8.306 oz Body Mass Index (BMI) 50.5 Intake & Output: Intake and Output for Last 24 Hours 09/24/22 09/25/22 09/26/22 23:59 23:59 23:59 Intake Total 450 / 450 Output Total 150 / 150 200 / 200 200 / 200 Balance 300 / 300 -200 / -200 -200 / -200 Lab / Micro Data Result Diagrams: 09/26/22 05:43 09/26/22 05:43 Labs: Laboratory Results - last 24 hr 09/26/22 05:43: WBC 4.8, RBC 3.46 L, Hgb 10.1 L, Hct 31.5 L, MCV 91.0, MCH 29.2, MCHC 32.1, RDW Std Deviation 59.5 H, RDW Coeff of [place] 17.9 H, Plt Count 238, MPV 10.4, Immature Gran % (Auto) 0.200, Neut % (Auto) 53.1, Lymph % (Auto) 28.8, [place] % (Auto) 14.3 H, Eos % (Auto) 3.2, Baso % (Auto) 0.4, Absolute Neuts (auto) 2.5, Absolute Lymphs (auto) 1.37, Nucleated RBC % 0 09/26/22 05:43: PT 20.2 H, INR 1.8 09/26/22 05:43: Sodium 135 L, Potassium 4.4, Chloride 104, Carbon Dioxide 27.0, Anion Gap 4 L, BUN 24 H, Creatinine 1.94 H, Estim Creat Clear Calc 41.29, Est GFR (MDRD) Af Amer 45 L, Est GFR (MDRD) Non-Af 38 L, BUN/Creatinine Ratio 12.4, Glucose 125 H, Calcium 8.4 L, Phosphorus 2.6, Magnesium 1.7, Total Bilirubin 1.20 H, AST 42 H, ALT 18, Alkaline Phosphatase 107, Total Protein 6.1 L, Albumin 1.9 L, Globulin 4.2, Albumin/Globulin Ratio 0.5 L Cardiology Labs/Tests 09/26/22 05:43: WBC 4.8, RBC 3.46 L, Hgb 10.1 L, Hct 31.5 L, MCV 91.0, MCH 29.2, MCHC 32.1, Plt Count 238, MPV 10.4, Immature Gran % (Auto) 0.200, Neut % (Auto) 53.1, Lymph % (Auto) 28.8, [place] % (Auto) 14.3 H, Eos % (Auto) 3.2, Baso % (Auto) 0.4, Absolute Neuts (auto) 2.5, Nucleated RBC % 0 09/26/22 05:43: PT 20.2 H, INR 1.8 09/26/22 05:43: Sodium 135 L, Potassium 4.4, Chloride 104, Carbon Dioxide 27.0, Anion Gap 4 L, BUN 24 H, Creatinine 1.94 H, Est GFR (MDRD) Af Amer 45 L, Est GFR (MDRD) Non-Af 38 L, BUN/Creatinine Ratio 12.4, Glucose 125 H, Calcium 8.4 L, Phosphorus 2.6, Magnesium 1.7, Total Bilirubin 1.20 H Rhythm: EKG: ECHO: Stress Test: Cardiac Cath: PCI: CT Surgery: Holter monitor: EPS: PPM: CXR: Chest CT Scan: Radiography Diagnostic Testing: Radiology Impression Echocardiogram 09/24/22 19:18 Interpretation Summary Normal left ventricle. Left ventricular systolic function is normal. The estimated ejection fraction is 55 %. Mild concentric left ventricular hypertrophy. Ordering Physician: Abdoul Orozco Referring Physician: Lance Bose Chi Performed By: Marcial Hair RCS Lumbar Spine CT 01/24/23 16:48 IMPRESSION: No evidence for acute fracture or other significant bony pathology. Severe levoscoliosis and degenerative changes most severe at L1-2 and L2-3. Multilevel spinal stenosis secondary to bulging annulus facet arthropathy and exaggerated by shortened pedicles. If patient cannot have an MRI CT myelography would be helpful for further assessment Electronically Signed: Alexander Patel MD at 17:47 EST , Physical Exam Const alert, oriented x3 and no apparent distress Constitutional Narrative: Morbidly obese, upper middle-aged white male who appears older than stated age, lying in bed. HEENT head/scalp atraumatic and moist oral mucous membranes Head and Scalp: normocephalic Resp normal respiratory effort, no retractions, no use of accessory muscles and clear to auscultation bilaterally Auscultation: Negative for crackles, rhonchi or wheezes Cardio regular rate, regular rhythm, S1 normal heart sound, S2 normal heart sound, no murmurs, no rub, no gallops and no clicks GI normal to inspection, nondistended, normoactive bowel sounds, soft to palpation and non-tender Extremity no clubbing, cyanosis or edema Neuro oriented x3 and CN's II-XII intact bilaterally Neuro Narrative: Decreased movement left lower extremity secondary to pain but does not appear to have any motor weakness Speech: speech normal Psych affect normal Psych Narrative: Pleasant, appropriately interactive Assessment & Plan Assessment/Plan (1) PAF (paroxysmal atrial fibrillation): PLAN: Patient presents with paroxysmal atrial fibrillation. He is currently in sinus rhythm. * Reassessment of his left ventricular function demonstrates preserved overall function. * He will continue anticoagulation for now * He has been put on low-dose amiodarone together with the beta-[place] * He can probably be discharged for outpatient follow-up. * Ultimately he may be a candidate for A. fib ablation. He has too many other comorbidities for medical therapy. * Tikosyn may be a possibility. (2) Atherosclerotic heart disease of [place] coronary artery without angina pectoris: PLAN: He does have atherosclerotic cardiovascular disease status post previous angioplasty and stenting. He has not had any angina and the plan to be to continue to follow him medically. Thank you for allowing me to participate in the care of your patient. Please don't hesitate to call if any issues arise.
[2022-09-26] MEDS: Smz/Tmp Ds Tablet 0.5 TABLET PO (08:13)
[2022-09-26] MEDS: Ferrous Sulfate 325 MG Tablet PO (08:13)
[2022-09-26] MEDS: Tacrolimus 0.5 MG Capsule PO ×2 (09:06→20:37)
[2022-09-26] MEDS: APIXABAN 5 MG TABLET PO ×2 (09:07→22:04)
[2022-09-26] MEDS: Amiodarone 200 MG Tablet PO ×2 (09:07→22:04)
[2022-09-26] MEDS: Metoprolol Tartrate 50 MG Tablet PO ×2 (09:07→22:05)
[2022-09-26] MEDS: Lactulose 20 GM/30 ML UDC PO (09:07)
[2022-09-26] MEDS: Ursodiol 250 MG Tablet 375 MG PO ×2 (09:08→22:05)
[2022-09-26 12:32] LABS: Anisocytosis 2+
[2022-09-26 12:36] LABS: Ovalocyte 2+
--- NOTE | 2022-09-26 16:12 | PCM.PN.HOSP ---
Subjective Subjective Patient still having leg pain. Unfortunately has an allergy to gabapentin so we will be able to utilize this to help with the symptoms. CT was abnormal and we discussed this. We are waiting for pain management to evaluate the patient. Objective Data Objective Data Vital Signs: Vital Signs Temp Pulse Resp BP Pulse Ox O2 Del Method 98.2 F 66 16 117/63 94 Room Air 09/26/22 14:03 09/26/22 14:03 09/26/22 14:03 09/26/22 14:03 09/26/22 14:03 09/26/22 14:03 Oxygen Delivery Method Room Air Weight: 159.9 kg Body Mass Index (BMI) 50.5 Intake & Output: Intake and Output for Last 24 Hours 09/24/22 09/25/22 09/26/22 23:59 23:59 23:59 Intake Total 450 / 450 Output Total 150 / 150 200 / 200 400 / 400 Balance 300 / 300 -200 / -200 -400 / -400 Lab / Micro Data Result Diagrams: 09/26/22 05:43 09/26/22 05:43 Labs: Laboratory Results - last 24 hr 09/26/22 05:43: WBC 4.8, RBC 3.46 L, Hgb 10.1 L, Hct 31.5 L, MCV 91.0, MCH 29.2, MCHC 32.1, RDW Std Deviation 59.5 H, RDW Coeff of Maciel 17.9 H, Plt Count 238, MPV 10.4, Immature Gran % (Auto) 0.200, Neut % (Auto) 53.1, Lymph % (Auto) 28.8, [place] % (Auto) 14.3 H, Eos % (Auto) 3.2, Baso % (Auto) 0.4, Absolute Neuts (auto) 2.5, Absolute Lymphs (auto) 1.37, Nucleated RBC % 0, Anisocytosis 2+, Ovalocytes 2+ 09/26/22 05:43: PT 20.2 H, INR 1.8 09/26/22 05:43: Sodium 135 L, Potassium 4.4, Chloride 104, Carbon Dioxide 27.0, Anion Gap 4 L, BUN 24 H, Creatinine 1.94 H, Estim Creat Clear Calc 41.29, Est GFR (MDRD) Af Amer 45 L, Est GFR (MDRD) Non-Af 38 L, BUN/Creatinine Ratio 12.4, Glucose 125 H, Calcium 8.4 L, Phosphorus 2.6, Magnesium 1.7, Total Bilirubin 1.20 H, AST 42 H, ALT 18, Alkaline Phosphatase 107, Total Protein 6.1 L, Albumin 1.9 L, Globulin 4.2, Albumin/Globulin Ratio 0.5 L Radiography Diagnostic Testing: Radiology Impression Lumbar Spine CT 09/25/22 16:48 IMPRESSION: No evidence for acute fracture or other significant bony pathology. Severe levoscoliosis and degenerative changes most severe at L1-2 and L2-3. Multilevel spinal stenosis secondary to bulging annulus facet arthropathy and exaggerated by shortened pedicles. If patient cannot have an MRI CT myelography would be helpful for further assessment Electronically Signed: Alexander Patel MD at 17:47 EST Reading Location ID and State: [facility] / [place] , Service support , Physical Exam Const alert, oriented x3 and no apparent distress Constitutional Narrative: Morbidly obese, upper middle-aged white male who appears older than stated age, lying in bed, appears comfortable at this time however does have pain with active and passive movement of his left lower extremity General Appearance: cooperative HEENT normocephalic, head/scalp atraumatic, hearing grossly normal bilaterally and moist oral mucous membranes Resp normal respiratory effort, no retractions, no use of accessory muscles and clear to auscultation bilaterally Auscultation: Negative for crackles, rhonchi or wheezes Cardio regular rate, regular rhythm, S1 normal heart sound, S2 normal heart sound, no murmurs, no rub, no gallops and no clicks GI normal to inspection, nondistended, normoactive bowel sounds, soft to palpation, non-tender and non-distended Extremity no clubbing, cyanosis or edema Neuro oriented x3, moves all extremities and no focal motor deficits Neuro Narrative: Decreased movement left lower extremity secondary to pain but does not appear to have any motor weakness Speech: speech normal Psych affect normal Psych Narrative: Pleasant, appropriately interactive Assessment & Plan Assessment/Plan (1) Inability to ambulate due to ankle or foot: (2) Inability to walk: (3) PAF (paroxysmal atrial fibrillation): (4) Lumbar radiculopathy: PLAN: Plan A. fib with RVR -Patient with known history of paroxysmal atrial fibrillation -Remains in sinus rhythm -Continue home metoprolol at an increased dose of 50 mg twice daily -Continue amiodarone as ordered -Per documentation from cardiology patient may need Tikosyn versus ablation in the future -Continue to monitor on telemetry -Continue home Eliquis -Echocardiogram done today shows an EF of 55%, mild LVH and no other significant abnormalities were noted -Cardiology following-appreciate input Left lumbar radiculopathy -Patient describing lumbar radiculopathy -Try to obtain MRI based on symptoms as he is having significant difficulty moving and we thought possibly pain management may be of benefit however he was unable to tolerate the MRI based on claustrophobia and size -CT of the lumbar spine showed severe levoscoliosis with degenerative changes most severe at L1 and L2 and L3 and L4 with multilevel spinal stenosis secondary to bulging annulus and facet arthropathy -Consult pain management pending -Continue PT/OT following -As needed pain medication as ordered--> including Flexeril, scheduled oxycodone -These are chronic medications -May need placement prior to discharge depending on mobility -Plan on discharge to TCU once pre-CERT obtained and evaluated by pain management Inability ambulate -Related to pain from above -Continue PT/OT -Imaging pending Chronic anemia -Stable -Repeat CBC in a.m. -Continue home iron CKD stage IIIb -Serum creatinine is at baseline 1.94 -Repeat CBC in a.m. -Avoid nephrotoxins FELIPE/alpha-1 antitrypsin deficiency status post liver transplant -Liver transplant 2016 -Follows at [facility] -Continue tacrolimus -Continue ursodiol -Continue home Bactrim -Continue home lactulose History of gout -Continue home colchicine Chronic pain due to osteoarthritis/rheumatoid arthritis -Continue home oxycodone -Continue home Flexeril -Patient follows as an outpatient with pain management -Patient is not on any chronic rheumatoid medications HFpEF -Patient is no longer on diuretics at baseline -Had recent echo December 2020 in our system with an EF of 50 to 65% and otherwise unremarkable DVT prophylaxis -Continue Eliquis CODE STATUS -Full code Charges/Coding Visit Charges Inpatient E&M: 45744 Subs Hosp L2
[2022-09-26] MEDS: morphine SR 15 MG Tablet PO (17:53)
[2022-09-27] VITALS (8 sets, daily range): BP systolic 109–132; BP diastolic 58–70; PULSE 63–166; RESP 18; TEMP 36.7–37.6; O2SAT 96–99
[2022-09-27] MEDS: Metoprolol Tartrate 50 MG Tablet PO ×2 (03:26→21:22)
--- NOTE | 2022-09-27 04:33 | PCM.HOSP.N ---
Hospitalist Note Patient with onset persistent tachycardia, administered his BB early; however, ongoing. Will dose x 1 now with cardizem 20 mg IV x 1 bolus.
[2022-09-27] MEDS: dilTIAZem 25 MG/5 ML Vial 20 MG IV BOLUS (04:48)
[2022-09-27] MEDS: 0.9% Saline Lock 10 ML Syringe IV (04:48)
[2022-09-27 06:12] LABS: ALB/GLOB Ratio 0.4 RATIO (0.9-2.4); AST(SGOT) 24 U/L (15-37); Alanine Aminotransfer ALT/SGPT 17 U/L (16-61); Albumin, Serum 1.8 g/dL (3.2-5.0); Alkaline Phosphatase 105 U/L (45-117); Anion Gap 8 (5-15); BUN 25 mg/dL (7-18); BUN/Creat Ratio 12.4 RATIO (10-20); Calcium,Total 8.5 mg/dL (8.5-10.1); Chloride 99 mmol/L (98-107); Creatinine, Serum 2.02 mg/dL (0.70-1.30); EST Glomerular Filtration Rate 36 mL/min (>60); Est Glom Filt Rate - Afr Amer 43 mL/min (>60); Estimated Creatinine Clearance 39.65 ml/min; Globulin 4.3 g/dL (2.2-4.2); Glucose 139 mg/dL (74-106); Potassium 4.2 mmol/L (3.5-5.1); Protein, Total 6.1 g/dL (6.4-8.2); Sodium Level 131 mmol/L (136-145)
[2022-09-27] MEDS: Smz/Tmp Ds Tablet 0.5 TABLET PO (09:23)
[2022-09-27] MEDS: Ferrous Sulfate 325 MG Tablet PO (09:24)
[2022-09-27] MEDS: Ursodiol 250 MG Tablet 375 MG PO ×2 (09:25→21:23)
[2022-09-27] MEDS: Amiodarone 200 MG Tablet PO ×2 (09:25→21:22)
[2022-09-27] MEDS: Potassium Chloride Oral Tablet 20 MEQ PO (09:25)
[2022-09-27] MEDS: APIXABAN 5 MG TABLET PO ×2 (09:25→21:22)
[2022-09-27] MEDS: Lactulose 20 GM/30 ML UDC PO ×2 (09:25→21:22)
[2022-09-27] MEDS: Tacrolimus 0.5 MG Capsule PO ×2 (09:25→21:22)
[2022-09-27] MEDS: morphine SR 15 MG Tablet PO ×2 (09:32→21:22)
[2022-09-27] MEDS: cycloBENZAPRine HCl 10 MG Tablet PO (09:32)
[2022-09-27] MEDS: HYDROmorphone 0.5 MG/0.5 ML SYRINGE IV (15:20)
--- NOTE | 2022-09-27 17:33 | PCM.PN.HOSP ---
Subjective Subjective Patient with recurrent paroxysmal atrial fibrillation overnight. Plan to titrate amiodarone. Also awaiting pain management input with regards to his lumbar spine. Patient is very reluctant to move so we have encouraged him strongly to move around is much as possible. Patient reports that the medication changes Dr. Villagran made over the phone last evening are not helpful at all and requested that we restart some IV medications to help with his pain. The patient did state that he talk to Dr. Villagran and he told him he would be in today to see him. We were also told he would be in to see him today as well. Objective Data Objective Data Vital Signs: Vital Signs Temp Pulse Resp BP Pulse Ox O2 Del Method 98.1 F 67 18 109/58 L 99 Room Air 09/27/22 09:00 09/27/22 09:00 09/27/22 09:00 09/27/22 09:00 09/27/22 09:00 09/27/22 09:00 Oxygen Delivery Method Room Air Weight: 159.9 kg Body Mass Index (BMI) 50.5 Intake & Output: Intake and Output for Last 24 Hours 09/25/22 09/26/22 09/27/22 23:59 23:59 23:59 Output Total 200 / 200 760 / 910 350 / 350 Balance -200 / -200 -760 / -910 -350 / -350 Lab / Micro Data Result Diagrams: 09/26/22 05:43 09/27/22 04:46 Labs: Laboratory Results - last 24 hr 09/27/22 04:46: Sodium 131 L, Potassium 4.2, Chloride 99, Carbon Dioxide 24.0, Anion Gap 8, BUN 25 H, Creatinine 2.02 H, Estim Creat Clear Calc 39.65, Est GFR (MDRD) Af Amer 43 L, Est GFR (MDRD) Non-Af 36 L, BUN/Creatinine Ratio 12.4, Glucose 139 H, Calcium 8.5, Total Bilirubin 0.90, AST 24, ALT 17, Alkaline Phosphatase 105, Total Protein 6.1 L, Albumin 1.8 L, Globulin 4.3 H, Albumin/Globulin Ratio 0.4 L Physical Exam Const alert, oriented x3 and no apparent distress Constitutional Narrative: Morbidly obese, upper middle-aged white male who appears older than stated age, lying in bed, appears comfortable at this time however does have pain with active and passive movement of his left lower extremity, is at bedside General Appearance: cooperative HEENT normocephalic, head/scalp atraumatic, hearing grossly normal bilaterally and moist oral mucous membranes HEENT Narrative: Mallampati 3-4, no thrush Resp normal respiratory effort, no retractions, no use of accessory muscles and clear to auscultation bilaterally Auscultation: Negative for crackles, rhonchi or wheezes Cardio regular rate, regular rhythm, S1 normal heart sound, S2 normal heart sound, no murmurs, no rub, no gallops and no clicks GI normal to inspection, nondistended, normoactive bowel sounds, soft to palpation and non-tender Extremity no clubbing, cyanosis or edema Neuro oriented x3 and no focal motor deficits Neuro Narrative: Decreased movement left lower extremity secondary to pain but does not appear to have any motor weakness Speech: speech normal Psych affect normal Psych Narrative: Pleasant, appropriately interactive Assessment & Plan Assessment/Plan (1) Inability to ambulate due to ankle or foot: (2) Inability to walk: (3) PAF (paroxysmal atrial fibrillation): (4) Lumbar radiculopathy: PLAN: Plan A. fib with RVR -Patient with known history of paroxysmal atrial fibrillation -Did have recurrent bout of A. fib overnight -Discussed with cardiology and plan will be to continue metoprolol and increase amiodarone to 200 twice daily -Per documentation from cardiology patient may need Tikosyn versus ablation in the future -Continue to monitor on telemetry -Continue home Eliquis -Echocardiogram showed an EF of 55%, mild LVH and no other significant abnormalities were noted -Cardiology following-appreciate input Left lumbar radiculopathy -Patient describing lumbar radiculopathy -Try to obtain MRI based on symptoms as he is having significant difficulty moving and we thought possibly pain management may be of benefit however he was unable to tolerate the MRI based on claustrophobia and size -CT of the lumbar spine showed severe levoscoliosis with degenerative changes most severe at L1 and L2 and L3 and L4 with multilevel spinal stenosis secondary to bulging annulus and facet arthropathy -Consult pain management pending -Continue PT/OT following -As needed pain medication as ordered--> including Flexeril, scheduled oxycodone -These are chronic medications -May need placement prior to discharge depending on mobility -Plan on discharge to TCU once pre-CERT obtained and evaluated by pain management Inability ambulate -Related to pain from above -Continue PT/OT -Plan is discharged to TCU Chronic anemia -Stable -Continue home iron CKD stage IIIb -Serum creatinine is at baseline 1.94 -Repeat CBC in a.m. -Avoid nephrotoxins FELIPE/alpha-1 antitrypsin deficiency status post liver transplant -Liver transplant 2016 -Follows at [facility] -Continue tacrolimus -Continue ursodiol -Continue home Bactrim -Continue home lactulose History of gout -Continue home colchicine Chronic pain due to osteoarthritis/rheumatoid arthritis -Continue home oxycodone -Continue home Flexeril -Patient follows as an outpatient with pain management -Patient is not on any chronic rheumatoid medications HFpEF -Patient is no longer on diuretics at baseline -Had recent echo December 2020 in our system with an EF of 50 to 65% and otherwise unremarkable DVT prophylaxis -Continue Eliquis CODE STATUS -Full code Charges/Coding Visit Charges Inpatient E&M: 68397 Subs Hosp L2
[2022-09-27] MEDS: oxyCODONE 5 MG Tablet PO (17:40)
[2022-09-28] MEDS: oxyCODONE 5 MG Tablet PO (04:05)
[2022-09-28 04:12] VITALS: BP 142/60; PULSE 67; RESP 18; TEMP 37.3; O2SAT 97
[2022-09-28] MEDS: cycloBENZAPRine HCl 10 MG Tablet PO (04:17)
[2022-09-28 06:11] LABS: Absolute Lymphocyte Count 1.38 X10^3/uL (0.83-4.51); Absolute Neutrophil Count 3.7 X10^3/uL (2.0-7.7); Basophil# 0.02 X10^3/uL; Basophil% 0.3 % (0-1); Eosinophil# 0.36 X10^3/uL; Eosinophils% 5.8 % (0-5); Hematocrit 32.2 % (40-54); Lymphocyte # 1.38 X10^3/ul (0.83-4.51); Lymphocyte % 22.4 % (19-41); Mean Corp Hgb Conc 31.1 g/dL (32-36); Mean Corpuscular Hgb 28.7 pg (27.0-32.0); Mean Corpuscular Volume 92.3 fL (80-94); Mean Platelet Vol. 10.6 fl (6.2-12.0); Monocyte# 0.72 X10^3/uL; Monocyte% 11.7 % (0-10); NRBC Flagged by Analyzer 0 % (0-5); Neutrophil # 3.67 X10^3/uL (2.7-7.7); Neutrophil % 59.5 % (47-70); Platelet Count 283 K/mm3 (150-450); RBC Distribution Width CV 17.6 % (11.6-14.6); RBC Distribution Width SD 59.3 fl (35.1-43.9); Red Blood Count 3.49 M/mm3 (4.6-6.2); White Blood Count 6.2 K/mm3 (4.4-11.0)
[2022-09-28 06:31] LABS: Anion Gap 5 (5-15); BUN 26 mg/dL (7-18); BUN/Creat Ratio 12.9 RATIO (10-20); Calcium,Total 8.2 mg/dL (8.5-10.1); Chloride 100 mmol/L (98-107); Creatinine, Serum 2.01 mg/dL (0.70-1.30); EST Glomerular Filtration Rate 36 mL/min (>60); Est Glom Filt Rate - Afr Amer 44 mL/min (>60); Estimated Creatinine Clearance 39.85 ml/min; Glucose 111 mg/dL (74-106); Potassium 4.5 mmol/L (3.5-5.1); Sodium Level 131 mmol/L (136-145)
[2022-09-28] MEDS: Ferrous Sulfate 325 MG Tablet PO (10:01)
[2022-09-28] MEDS: Smz/Tmp Ds Tablet 0.5 TABLET PO (10:01)
[2022-09-28 10:02] VITALS: PULSE 68; O2SAT 97
[2022-09-28] MEDS: Metoprolol Tartrate 50 MG Tablet PO ×2 (10:02→23:02)
[2022-09-28] MEDS: APIXABAN 5 MG TABLET PO ×2 (10:02→23:02)
[2022-09-28] MEDS: Lactulose 20 GM/30 ML UDC PO ×2 (10:02→23:02)
[2022-09-28] MEDS: Amiodarone 200 MG Tablet PO ×2 (10:02→23:03)
[2022-09-28] MEDS: Tacrolimus 0.5 MG Capsule PO ×2 (10:02→23:02)
[2022-09-28] MEDS: Ursodiol 250 MG Tablet 375 MG PO ×2 (10:03→23:03)
[2022-09-28] MEDS: morphine SR 15 MG Tablet PO ×2 (10:09→12:58)
[2022-09-28] MEDS: Morphine 2 MG/ML Syringe IV ×2 (10:09→23:09)
[2022-09-28] MEDS: 0.9% Saline Lock 10 ML Syringe IV (10:09)
[2022-09-28 10:10] VITALS: BP 131/90; PULSE 65; RESP 18; TEMP 36.7; O2SAT 97
--- NOTE | 2022-09-28 10:47 | CASEMGMT ---
Pre-cert has been started for patient to go to TCU. Plan: TCU pending insurance approval. Kaley SWEENEY
[2022-09-28 16:00] VITALS: BP 114/65; PULSE 65; RESP 18; TEMP 37.1; O2SAT 99
--- NOTE | 2022-09-28 19:29 | PCM.PN.HOSP ---
Subjective Subjective Patient was seen and examined today, his was at the room at the time my examination. We have not received approval for the patient to go to an extended care facility as of the time of this dictation. Patient states that his current pain medications are not helping with his back and leg pain, I have elected to increase patient's MS Contin to 30 mg twice daily. Patient states that his blood sugars elevated when he was placed on prednisone before so I do not think I want to start the patient on any corticosteroids at this time. I will reevaluate him tomorrow for further changes in his medications. Objective Data Objective Data Vital Signs: Vital Signs Temp Pulse Resp BP Pulse Ox O2 Del Method 98.8 F 65 18 114/65 99 Room Air 09/28/22 16:00 09/28/22 16:00 09/28/22 16:00 09/28/22 16:00 09/28/22 16:00 09/28/22 16:00 Oxygen Delivery Method Room Air Weight: 159.9 kg Body Mass Index (BMI) 50.5 Intake & Output: Intake and Output for Last 24 Hours 09/26/22 09/27/22 09/28/22 23:59 23:59 23:59 Output Total 760 / 910 550 / 550 350 / 350 Balance -760 / -910 -550 / -550 -350 / -350 Lab / Micro Data Result Diagrams: 09/28/22 05:38 09/28/22 05:38 Labs: Laboratory Results - last 24 hr 09/28/22 05:38: WBC 6.2, RBC 3.49 L, Hgb 10.0 L, Hct 32.2 L, MCV 92.3, MCH 28.7, MCHC 31.1 L, RDW Std Deviation 59.3 H, RDW Coeff of Maciel 17.6 H, Plt Count 283, MPV 10.6, Immature Gran % (Auto) 0.300, Neut % (Auto) 59.5, Lymph % (Auto) 22.4, [place] % (Auto) 11.7 H, Eos % (Auto) 5.8 H, Baso % (Auto) 0.3, Absolute Neuts (auto) 3.7, Absolute Lymphs (auto) 1.38, Nucleated RBC % 0 09/28/22 05:38: Sodium 131 L, Potassium 4.5, Chloride 100, Carbon Dioxide 26.0, Anion Gap 5, BUN 26 H, Creatinine 2.01 H, Estim Creat Clear Calc 39.85, Est GFR (MDRD) Af Amer 44 L, Est GFR (MDRD) Non-Af 36 L, BUN/Creatinine Ratio 12.9, Glucose 111 H, Calcium 8.2 L Physical Exam Const alert, oriented x3 and no apparent distress Constitutional Narrative: Patient is morbidly obese General Appearance: cooperative, well kempt and well developed Orientation / Consciousness: awake, oriented to person, oriented to place and oriented to time HEENT normocephalic, head/scalp atraumatic and moist oral mucous membranes Eyes PERRL, EOMs intact bilaterally and conjunctivae normal Neck supple, no JVD, thyroid normal and no carotid bruits General: trachea midline Resp normal respiratory effort, no retractions, no use of accessory muscles and clear to auscultation bilaterally Auscultation: Negative for rales, rhonchi or wheezes Cardio regular rate, regular rhythm, S1 normal heart sound, S2 normal heart sound, no murmurs, no rub and no gallops GI normal to inspection, nondistended, normoactive bowel sounds, soft to palpation, non-tender and non-distended Extremity no clubbing, cyanosis or edema Skin no rashes or lesions noted General Skin Exam: no breakdown Neuro oriented x3 and CN's II-XII intact bilaterally Sensorium / Orientation: awake, alert, oriented to person, oriented to place and oriented to time Speech: speech normal Psych affect normal Assessment & Plan Assessment/Plan (1) PAF (paroxysmal atrial fibrillation): PLAN: Plan 1. Paroxysmal atrial fibrillation-patient is now in sinus rhythm, continue to monitor and continue present rate control medications and antiarrhythmics #2 multilevel degenerative disc disease of the lumbar spine with acute debility-PT and OT are working with the patient, we are awaiting placement in a [place] [facility] facility for further inpatient rehab services, I have elected to increase patient's pain medications at this time. It may be necessary to place the patient on corticosteroids, I will reevaluate the patient in the morning. #3 chronic kidney disease stage IIIb-complicates care, medical course, recovery, and prognosis #4 morbid obesity-complicates care, medical course, recovery, and prognosis #5 anemia of chronic kidney disease-patient does not require transfusion at this time, hemoglobin will be monitored as needed, I will obtain an iron level Total clinical time spent by myself addressing the patient's medical issues, reviewing all the patient's data, and collaborating with patient's care team: 35 minutes Charges/Coding Visit Charges Inpatient E&M: 96077 Subs Hosp L2
[2022-09-28 20:31] LABS: Iron 28 ug/dL (65-175); Iron Binding Capacity,Total 254 ug/dL (250-450)
[2022-09-28 22:59] VITALS: BP 114/67; PULSE 66; RESP 18; TEMP 37.2; O2SAT 98
[2022-09-28 23:02] VITALS: BP 114/67; PULSE 66
[2022-09-29] VITALS (8 sets, daily range): BP systolic 111–137; BP diastolic 51–71; PULSE 57–66; RESP 16–18; TEMP 36.4–36.9; O2SAT 93–98
[2022-09-29] MEDS: DiphenhydrAMINE 50 MG/ML Syringe 25 MG IV ×3 (02:55→20:59)
[2022-09-29] MEDS: 0.9% Saline Lock 10 ML Syringe IV ×2 (02:57→21:03)
[2022-09-29] MEDS: cycloBENZAPRine HCl 10 MG Tablet PO (03:32)
[2022-09-29] MEDS: Calcium Carbonate 500 MG Tablet 1000 MG PO (04:26)
--- NOTE | 2022-09-29 05:51 | PCM.HOSP.N ---
Hospitalist Note Patient with onset generalized itching following morphine. Will add PRN benadryl.
[2022-09-29] MEDS: hydrOXYzine PAM 25 MG Capsule PO (06:34)
[2022-09-29] MEDS: Smz/Tmp Ds Tablet 0.5 TABLET PO (10:01)
[2022-09-29] MEDS: Lactulose 20 GM/30 ML UDC PO (10:01)
[2022-09-29] MEDS: Metoprolol Tartrate 50 MG Tablet PO ×2 (10:02→21:00)
[2022-09-29] MEDS: Ursodiol 250 MG Tablet 375 MG PO ×2 (10:02→21:00)
[2022-09-29] MEDS: Tacrolimus 0.5 MG Capsule PO ×2 (10:03→21:00)
[2022-09-29] MEDS: Amiodarone 200 MG Tablet PO ×2 (10:03→21:00)
[2022-09-29] MEDS: APIXABAN 5 MG TABLET PO ×2 (10:03→21:01)
[2022-09-29] MEDS: Ferrous Sulfate 325 MG Tablet PO ×2 (10:03→21:00)
[2022-09-29] MEDS: Potassium Chloride Oral Tablet 20 MEQ PO (10:04)
[2022-09-29] MEDS: oxyCODONE HCl Cr 10 MG Tablet 20 MG PO ×2 (10:04→21:00)
[2022-09-29] MEDS: Insulin Lispro 100 UNIT/ML INSULN.PEN SC ×3 (10:07→21:01)
[2022-09-29 10:41] LABS: Bedside Glucose 154 mg/dL (74-106)
[2022-09-29 18:11] LABS: Bedside Glucose 197 mg/dL (74-106)
--- NOTE | 2022-09-29 18:27 | PCM.PN.HOSP ---
Subjective Subjective Patient was seen and examined today, he is still complaining of radicular pain. We have not received approval for the patient to go to TCU yet. I discussed the use of corticosteroids with the patient, he is agreed to a trial to see if it helps him. Patient stated that he had itching from morphine administration, he refused to take MS Contin because he was afraid of the dosage. I told the patient that he needed to have confidence that we would not overmedicate him for pain and I have decided at this point to stop his MS Contin and IV morphine and place him on OxyContin and Oxy IR. Fingerstick blood sugars will be monitored because the patient has had a history of elevated blood sugars in the past on corticosteroids. Objective Data Objective Data Vital Signs: Vital Signs Temp Pulse Resp BP Pulse Ox O2 Del Method 97.7 F L 57 L 16 137/71 H 93 Room Air 09/29/22 16:00 09/29/22 16:00 09/29/22 16:00 09/29/22 16:00 09/29/22 16:00 09/29/22 16:24 Oxygen Delivery Method Room Air Weight: 159.9 kg Body Mass Index (BMI) 50.5 Intake & Output: Intake and Output for Last 24 Hours 09/27/22 09/28/22 09/29/22 23:59 23:59 23:59 Output Total 550 / 550 770 / 770 675 / 675 Balance -550 / -550 -770 / -770 -675 / -675 Lab / Micro Data Result Diagrams: 09/28/22 05:38 09/28/22 05:38 Labs: Laboratory Results - last 24 hr 09/28/22 05:38: Iron 28 L, TIBC 254, Iron Saturation 11.0 L 09/29/22 10:07: POC Glucose 154 H 09/29/22 16:32: POC Glucose 197 H Physical Exam Narrative alert, oriented x3 and no apparent distress Constitutional Narrative: Patient is morbidly obese General Appearance: cooperative, well kempt and well developed Orientation / Consciousness: awake, oriented to person, oriented to place and oriented to time HEENT normocephalic, head/scalp atraumatic and moist oral mucous membranes Eyes PERRL, EOMs intact bilaterally and conjunctivae normal Neck supple, no JVD, thyroid normal and no carotid bruits General: trachea midline Resp normal respiratory effort, no retractions, no use of accessory muscles and clear to auscultation bilaterally Auscultation: Negative for rales, rhonchi or wheezes Cardio regular rate, regular rhythm, S1 normal heart sound, S2 normal heart sound, no murmurs, no rub and no gallops GI normal to inspection, nondistended, normoactive bowel sounds, soft to palpation, non-tender and non-distended Extremity no clubbing, cyanosis or edema Skin no rashes or lesions noted General Skin Exam: no breakdown Neuro oriented x3 and CN's II-XII intact bilaterally Sensorium / Orientation: awake, alert, oriented to person, oriented to place and oriented to time Speech: speech normal Psych affect normal Assessment & Plan Assessment/Plan (1) Lumbar radiculopathy: (2) PAF (paroxysmal atrial fibrillation): PLAN: Plan 1. Paroxysmal atrial fibrillation-patient is now in sinus rhythm, continue to monitor and continue present rate control medications and antiarrhythmics, patient is on Eliquis at this #2 multilevel degenerative disc disease of the lumbar spine with acute debility-PT and OT are working with the patient, we are awaiting placement in a shelter facility for further inpatient rehab services, I placed the patient on IV Solu-Medrol and changed up his pain medications today as noted earlier in my note. Patient requested that I go over his CT images of his lumbar CT-I declined to do this because I told him that I did not feel capable of reading his CT images and I confirmed that he was not able to read them himself and I told him that this would not be of any use at this time. Patient understood this. #3 chronic kidney disease stage IIIb-complicates care, medical course, recovery, and prognosis #4 morbid obesity-complicates care, medical course, recovery, and prognosis #5 Iron deficiency anemia-patient's iron level was 28 and his iron saturation was 11% which are low results, I will increase the patient's ferrous sulfate #6 hypercoagulable state secondary to paroxysmal atrial fibrillation-patient is on Eliquis Total clinical time spent by myself addressing the patient's medical issues, reviewing all the patient's data, and collaborating with patient's care team: 38 minutes Charges/Coding Visit Charges Inpatient E&M: 18032 Subs Hosp L2
[2022-09-29 23:40] LABS: Bedside Glucose 272 mg/dL (74-106)
[2022-09-30 03:15] VITALS: BP 129/71; PULSE 57; RESP 16; TEMP 36.4; O2SAT 97
[2022-09-30] MEDS: 0.9% Saline Lock 10 ML Syringe IV (06:39)
[2022-09-30] MEDS: Insulin Lispro 100 UNIT/ML INSULN.PEN SC (06:40)
[2022-09-30 07:05] LABS: Bedside Glucose 237 mg/dL (74-106)
[2022-09-30 10:12] VITALS: BP 129/69; PULSE 64; RESP 16; TEMP 36.4; O2SAT 96
[2022-09-30] MEDS: oxyCODONE HCl Cr 10 MG Tablet 20 MG PO (10:16)
[2022-09-30 10:17] VITALS: BP 129/69; PULSE 64
[2022-09-30] MEDS: APIXABAN 5 MG TABLET PO (10:17)
[2022-09-30] MEDS: Ursodiol 250 MG Tablet 375 MG PO (10:17)
[2022-09-30] MEDS: Metoprolol Tartrate 50 MG Tablet PO (10:17)
[2022-09-30] MEDS: Lactulose 20 GM/30 ML UDC PO ×2 (10:18)
[2022-09-30] MEDS: Tacrolimus 0.5 MG Capsule PO (10:18)
[2022-09-30] MEDS: Smz/Tmp Ds Tablet 0.5 TABLET PO (10:18)
[2022-09-30] MEDS: Amiodarone 200 MG Tablet PO (10:18)
--- NOTE | 2022-09-30 11:13 | DCINST_ITS ---
Discharge Instructions Diet Discharge Diet: - (Recommend no added sugar diet, avoid concentrated sweets) Activity Discharge Activity: Use Walker Weight Bearing Status: Full weight bearing Follow Up Care Test Results: Test results from this visit will be discussed in further detail at your follow- up appointment, if applicable. Discharge Plan Admission Admit Date/Time: 09/27/22 12:13 Primary Reason for Your Visit: Intractable low back pain with sciatica Attending Provider: Bi Ortez Primary Care Provider: Lance Bose Chi [employer] Providers: Abdoul Orozco ; Breanne Barkley ; Willy Villagran ; Marisa Monae Discharge Orders/Prescriptions Prescriptions: New oxycodone 5 mg Tablet 5 mg PO TID PRN (Reason: Pain Score 6-10) 5 Days Qty: 15 0RF metoprolol tartrate 50 mg Tablet 50 mg PO BID Qty: 60 0RF oxycodone [OxyContin] 10 mg Tablet,Oral Only,Ext.Rel.12 Hr 20 mg PO BID 7 Days Qty: 28 0RF amiodarone 200 mg Tablet 200 mg PO BID Qty: 60 0RF Rx Instructions: 1 twice a day for 7 days, then 1 daily thereafter prednisone 20 mg tablet 40 mg PO DAILY Qty: 15 0RF Rx Instructions: 1 twice a day for 3 days, then 1-1/2 daily for 3 days, then 1 daily for 3 days, then one half a day for 3 days then stop Continued ursodiol [PAT 250] 250 MG tablet 375 mg PO BID Label Comments: Take 1 tablet by mouth three times daily. still needs tonights dose potassium chloride 10 mEq tablet,ER particles/crystals 20 meq PO QODAY cyclobenzaprine 10 mg tablet 10 mg PO TID PRN (Reason: Spasms) Label Comments: Take 1 tablet by mouth three times daily as needed. sulfamethoxazole-trimethoprim 400-80 mg tablet 1 tab PO DAILY Label Comments: TAKE 1 TABLET BY MOUTH DAILY ondansetron 4 mg tablet,disintegrating 4 mg PO Q8H PRN (Reason: Nausea) Label Comments: Take 1 tablet by mouth every 8 hours as needed. tacrolimus 0.5 mg capsule 0.5 mg PO 0900,2100 Qty: 60 0RF Label Comments: 1 capsule by mouth as directed Rx Instructions: Continue at the direction of [facility] Eliquis 5 mg tablet 5 mg PO BID alprazolam 0.5 MG tablet 0.5 mg PO DAILY PRN (Reason: Anxiety) 3 Days Qty: 3 0RF lactulose 20 gram/30 mL solution 20 g PO BID Rx Instructions: Please titrate up if needed to attain 2-3 bowel movements daily colchicine 0.6 mg Capsule 0.6 mg PO DAILY 30 Days Qty: 30 0RF ferrous sulfate 325 mg (65 mg iron) Tablet 325 mg PO DAILY magnesium Tablet 1 tab PO DAILY Discontinued oxycodone 10 mg tablet 10 mg PO TID 3 Days Qty: 9 0RF metoprolol tartrate 25 mg Tablet 25 mg PO BID Referrals / Follow Up: Willy Villagran MD [Med Staff - Active Staff] - Within 1 Week Abdoul Orozco MD [Med Staff - Active Staff] - See Referral Note (in 3 weeks-call for appointment) Lance Bose Chi, MD [Primary Care Provider] - Within 2 Weeks Disposition Disposition (needs filled in before D/C Order can be placed): Home, Self Care
--- NOTE | 2022-09-30 11:46 | PCM.DC.SUM ---
Providers Date of Admission: 09/27/22 Date of Discharge: 09/30/22 Primary Care Physician: Dr. Lance Bose MD Consultations 09/24/22 18:15 Consult: Cardiology Routine Consulting Provider: Abdoul Orozco Reason for Consult: afib with intermittent RVR EMERGENT Consult: No MD Notified: Yes Date Notified: 09/24/22 Time Notified: 18:15 Method of Notification: Verbal 09/25/22 19:28 Consult: Pain Management Routine Consulting Provider: Willy Villagran Reason for Consult: L Lumbar Radiculopathy EMERGENT Consult: No Notified: Yes Date Notified: 09/26/22 Time Notified: 11:26 Method of Notification: office staff Reason For Visit: DEBILITY, INTERMITTENT TACHYCARDIA Diagnosis Discharge Diagnosis (1) Lumbar radiculopathy: Status: Chronic Code(s): M54.16 - Radiculopathy, lumbar region (2) PAF (paroxysmal atrial fibrillation): Status: Chronic Code(s): I48.0 - Paroxysmal atrial fibrillation Plan 1. Paroxysmal atrial fibrillation-patient is now in sinus rhythm, continue to monitor and continue present rate control medications and antiarrhythmics, patient is on Eliquis at this #2 multilevel degenerative disc disease of the lumbar spine with acute debility-PT and OT are working with the patient, we are [facility] a [facility] for further inpatient rehab services, I placed the patient on IV Solu-Medrol and changed up his pain medications today as noted earlier in my note. Patient requested that I go over his CT images of his lumbar CT-I declined to do this because I told him that I did not feel capable of reading his CT images and I confirmed that he was not able to read them himself and I told him that this would not be of any use at this time. Patient understood this. #3 chronic kidney disease stage IIIb-complicates care, medical course, recovery, and prognosis #4 morbid obesity-complicates care, medical course, recovery, and prognosis #5 Iron deficiency anemia-patient's iron level was 28 and his iron saturation was 11% which are low results, I will increase the patient's ferrous sulfate #6 hypercoagulable state secondary to paroxysmal atrial fibrillation-patient is on Eliquis Total clinical time spent by myself addressing the patient's medical issues, reviewing all the patient's data, and collaborating with patient's care team: 38 minutes Medications at Discharge Home Medications ursodiol 250 mg tablet (PAT 250) 375 mg PO BID GALLSTONES 04/07/19 potassium chloride 10 mEq tablet,extended release(part/cryst) 20 meq PO QODAY supplement 01/19/21 cyclobenzaprine 10 mg tablet 10 mg PO TID PRN Spasms 06/19/22 ondansetron 4 mg disintegrating tablet 4 mg PO Q8H PRN Nausea 06/19/22 sulfamethoxazole 400 mg-trimethoprim 80 mg tablet 1 tab PO DAILY LIVER TRANSPLANT 06/19/22 tacrolimus 0.5 mg capsule, immediate-release 0.5 mg PO 0900,2100 IMMUNE #60 caps 06/21/22 apixaban 5 mg tablet (Eliquis) 5 mg PO BID BLOOD THINNER 07/20/22 alprazolam 0.5 mg tablet 0.5 mg PO DAILY PRN Anxiety 3 days #3 tabs 07/25/22 lactulose 20 gram/30 mL oral solution 20 g PO BID LIVER 07/25/22 colchicine 0.6 mg capsule 0.6 mg PO DAILY 30 days #30 caps 08/09/22 ferrous sulfate 325 mg (65 mg iron) tablet 325 mg PO DAILY 09/24/22 magnesium 1 tab PO DAILY 09/24/22 metoprolol tartrate 50 mg tablet 50 mg PO BID #60 tabs 09/30/22 oxycodone 10 mg tablet,crush resistant,extended release 12 hr (OxyContin) 20 mg PO BID 7 days #28 tabs 09/30/22 oxycodone 5 mg tablet 5 mg PO TID PRN Pain Score 6-10 5 days #15 tabs 09/30/22 oxycodone myristate 18 mg capsule sprinkle extended release 12hr(DON'T CRUSH) (Xtampza ER) 18 mg PO BID 7 days #14 ea 09/30/22 prednisone 20 mg tablet 40 mg PO DAILY #15 tabs 09/30/22 amiodarone 200 mg tablet 200 mg PO DAILY #60 tabs 10/03/22 famotidine 20 mg tablet (Pepcid AC) 20 mg PO DAILY 10/03/22 Hospital Course Operations None Procedures 2-D Echocardiogram Summary of Care Provided Minutes Spent on Discharge: 31 Hospital Course: 61-year-old white male was seen in the emergency room with complaints of palpitations and inability to ambulate due to back and leg pain, patient had past history of A-fib, on his arrival in the emergency room, the patient's heart rate had returned to normal. Patient complain he was unable to walk at home even with a walker and his is unable to care for him. Work-up in the emergency room included a CBC which showed a normal white blood cell count, BUN was 20 and creatinine was 2.12. Chest x-ray showed no acute process, EKG was obtained and showed a normal sinus rhythm with sinus arrhythmia at 79, patient was admitted to PCU for paroxysmal atrial fib, he was seen by PT and OT, CT of the lumbar spine was performed which showed multilevel disc disease. Patient was placed on IV corticosteroids, he was also placed on oral pain meds and received morphine initially which caused itching, this was discontinued and he was transitioned to oxycodone. Plans were made for the patient to go to TCU, however, his pain was improved during his hospitalization he desired discharge home. He sees pain management chronically, Dr. Villagran was out of the office. I instructed the patient to see him next week. On 09/30/2022, patient was seen and examined: On examination he appeared his stated age. Vital signs as documented. Skin warm and dry and without overt rashes. Neck without JVD, neck was supple, trachea midline, thyroid was normal. Lungs clear bilaterally, normal air movement was noted. Heart exam notable for regular rhythm, normal sounds and absence of murmurs, rubs or gallops. Abdomen unremarkable and without evidence of organomegaly, masses, or abdominal aortic enlargement. Bowel sounds are present, abdomen is not distended. Extremities nonedematous, no cyanosis was noted, no clubbing was noted. Neuro: Cranial nerves II through XII are grossly intact, no focal motor deficits were noted, sensation to light touch and pinprick intact, motor exam 5/5 throughout. Psych: Patient is alert and oriented x3, he does not appear anxious or depressed, he does not appear agitated. Patient was discharged home in stable condition on 09/30/2022 Weight / BMI Weight Weight: 159.9 kg Body Mass Index (BMI) 50.5 ABG / Lab / Microbiology Data Result Diagrams: 09/28/22 05:38 09/28/22 05:38 Laboratory: Laboratory Results - last 24 hr 09/29/22 16:32: POC Glucose 197 H 09/29/22 20:56: POC Glucose 272 H 09/30/22 06:38: POC Glucose 237 H D/C Instructions Discharge Diet: - (Recommend no added sugar diet, avoid concentrated sweets) Weight Bearing Status: Full weight bearing Meaningful Use Info Meaningful Use Diagnoses (Choose all that apply): None applicable Discharge Plan Admission Admit Date/Time: 09/27/22 12:13 Primary Reason for Your Visit: Intractable low back pain with sciatica Attending Provider: Bi Ortez Primary Care Provider: Lance Bose Chi Consulting Providers: Abdoul Orozco ; Breanne Barkley ; Willy Villagran ; Marisa Monae Discharge Orders/Prescriptions Prescriptions: New oxycodone 5 mg Tablet 5 mg PO TID PRN (Reason: Pain Score 6-10) 5 Days Qty: 15 0RF metoprolol tartrate 50 mg Tablet 50 mg PO BID Qty: 60 0RF oxycodone [OxyContin] 10 mg Tablet,Oral Only,Ext.Rel.12 Hr 20 mg PO BID 7 Days Qty: 28 0RF prednisone 20 mg tablet 40 mg PO DAILY Qty: 15 0RF Rx Instructions: 1 twice a day for 3 days, then 1-1/2 daily for 3 days, then 1 daily for 3 days, then one half a day for 3 days then stop Xtampza ER 18 mg cap,sprinkl,ER12hr(DONT CRUSH) 18 mg PO BID 7 Days Qty: 14 0RF Rx Instructions: must administer with a meal/food Continued ursodiol [PAT 250] 250 MG tablet 375 mg PO BID Label Comments: Take 1 tablet by mouth three times daily. still needs tonights dose potassium chloride 10 mEq tablet,ER particles/crystals 20 meq PO QODAY cyclobenzaprine 10 mg tablet 10 mg PO TID PRN (Reason: Spasms) Label Comments: Take 1 tablet by mouth three times daily as needed. sulfamethoxazole-trimethoprim 400-80 mg tablet 1 tab PO DAILY Label Comments: TAKE 1 TABLET BY MOUTH DAILY ondansetron 4 mg tablet,disintegrating 4 mg PO Q8H PRN (Reason: Nausea) Label Comments: Take 1 tablet by mouth every 8 hours as needed. tacrolimus 0.5 mg capsule 0.5 mg PO 0900,2100 Qty: 60 0RF Label Comments: 1 capsule by mouth as directed Rx Instructions: Continue at the direction of [facility] Eliquis 5 mg tablet 5 mg PO BID alprazolam 0.5 MG tablet 0.5 mg PO DAILY PRN (Reason: Anxiety) 3 Days Qty: 3 0RF lactulose 20 gram/30 mL solution 20 g PO BID Rx Instructions: Please titrate up if needed to attain 2-3 bowel movements daily colchicine 0.6 mg Capsule 0.6 mg PO DAILY 30 Days Qty: 30 0RF ferrous sulfate 325 mg (65 mg iron) Tablet 325 mg PO DAILY magnesium Tablet 1 tab PO DAILY Discontinued oxycodone 10 mg tablet 10 mg PO TID 3 Days Qty: 9 0RF metoprolol tartrate 25 mg Tablet 25 mg PO BID No Action famotidine [Pepcid AC] 20 mg tablet 20 mg PO DAILY amiodarone 200 mg tablet 200 mg PO DAILY Qty: 60 0RF Referrals / Follow Up: Willy Villagran MD [Med Staff - Active Staff] - Within 1 Week Abdoul Orozco MD [Med Staff - Active Staff] - See Referral Note (in 3 weeks-call for appointment) Lance Bose Chi, MD [Primary Care Provider] - Within 2 Weeks Disposition Disposition (needs filled in before D/C Order can be placed): Home, Self Care Charges/Coding Visit Charges Inpatient E&M: 08351 Disch Hosp >30min
[2022-09-30] MEDS: Calcium Carbonate 500 MG Tablet 1000 MG PO (11:59)
== END 2022-09-30 12:36 | disposition home or self-care (01) | DRG 309 ==
LOC: ED 15:44 → PCU 16:39
PROVIDERS: Internal Medicine; Admitting Provider Student in an Organized Health Care Education/Training Program; Emergency Provider Emergency Medicine; PCP Family Medicine Geriatric Medicine; Visit Provider Internal Medicine
DX: I48.0 Paroxysmal atrial fibrillation (principal); I13.0 Hypertensive heart and chronic kidney disease with heart failure and stage 1 through stage 4 chronic kidney disease, or unspecified chronic kidney disease; D68.69 Other thrombophilia; Z68.43 Body mass index [BMI] 50.0-59.9, adult; I50.32 Chronic diastolic (congestive) heart failure; Z94.4 Liver transplant status; D63.1 Anemia in chronic kidney disease; E88.01 Alpha-1-antitrypsin deficiency; I47.1 Supraventricular tachycardia; E66.01 Morbid (severe) obesity due to excess calories; N18.32 Chronic kidney disease, stage 3b; M06.9 Rheumatoid arthritis, unspecified; M51.16 Intervertebral disc disorders with radiculopathy, lumbar region; K75.81 Nonalcoholic steatohepatitis (NASH); M48.061 Spinal stenosis, lumbar region without neurogenic claudication; R26.2 Difficulty in walking, not elsewhere classified; M10.9 Gout, unspecified; I25.10 Atherosclerotic heart disease of native coronary artery without angina pectoris; D50.9 Iron deficiency anemia, unspecified; G89.29 Other chronic pain; Z79.01 Long term (current) use of anticoagulants; R53.81 Other malaise
CPT/HCPCS: 36415; 71045; 72131; 80048; 80053; 81001; 82962; 83540; 83550; 83735; 84100; 84484; 85025; 85027; 85610; 93005; 93308; 97110; 97162; 97166; 97530; 97535; 97802; 99285; Q9957; A4216; C8924

== ENCOUNTER → 2022-10-08 | Outpatient (CLI) | payer MEDICARE, SELFPAY ==
[2022-10-08 15:35] LABS: Hemoglobin 11.8 g/dL (13.0-16.5); Mean Corp Hgb Conc 31.9 g/dL (32-36); Mean Corpuscular Hgb 29.6 pg (27.0-32.0); Mean Platelet Vol. 10.2 fl (6.2-12.0); Platelet Count 425 K/mm3 (150-450); RBC Distribution Width CV 18.6 % (11.6-14.6); Red Blood Count 3.98 M/mm3 (4.6-6.2); White Blood Count 15.5 K/mm3 (4.4-11.0)
[2022-10-08 16:09] LABS: Protein, Urine (Random) 18.7 mg/dL (<11.9); Protein:Creat Ratio 109 mg/g CRE (0-200)
[2022-10-08 19:32] LABS: Albumin, Serum 2.1 g/dL (3.2-5.0); BUN 45 mg/dL (7-18); BUN/Creat Ratio 22.3 RATIO (10-20); Calcium,Total 8.4 mg/dL (8.5-10.1); Chloride 109 mmol/L (98-107); Creatinine, Serum 2.02 mg/dL (0.70-1.30); EST Glomerular Filtration Rate 36 mL/min (>60); Est Glom Filt Rate - Afr Amer 43 mL/min (>60); Ferritin 116 ng/mL (26-388); Glucose 188 mg/dL (74-106); Iron 54 ug/dL (65-175); Iron Binding Capacity,Total 213 ug/dL (250-450); Magnesium 2.1 mg/dL (1.6-2.6); PERCENT IRON SATURATION 25.4 % (15.0-55.0); Potassium 5.2 mmol/L (3.5-5.1); Sodium Level 141 mmol/L (136-145); Uric Acid 4.1 mg/dL (3.5-7.2)
== END | disposition home or self-care (01) ==
PROVIDERS: PCP Family Medicine Geriatric Medicine; Visit Provider Internal Medicine Nephrology
DX: N18.32 Chronic kidney disease, stage 3b (principal); E11.22 Type 2 diabetes mellitus with diabetic chronic kidney disease; M10.9 Gout, unspecified; E83.42 Hypomagnesemia; D64.9 Anemia, unspecified; E87.5 Hyperkalemia
CPT/HCPCS: 36415; 80069; 82570; 82728; 83540; 83550; 83735; 84156; 84550; 85027

== ENCOUNTER → 2022-10-17 | Outpatient (CLI) | payer MEDICARE, SELFPAY | END | disposition home or self-care (01) | LOC: POLAB3 10:05 | PROVIDERS: Visit Provider Internal Medicine Nephrology | DX: E87.5 Hyperkalemia (principal) ==

== ENCOUNTER → 2022-10-30 | Outpatient (CLI) | payer MEDICARE, SELFPAY ==
--- NOTE | 2022-10-30 14:33 | RAD_ITS ---
STUDY: X-RAY - RIGHT KNEE REASON FOR EXAM: Male, 61 years old. RIGHT KNEE PAIN following a fall TECHNIQUE: 4 view(s) of the knee. COMPARISON: None. FINDINGS: Normal visualized distal femur. Normal visualized proximal tibia and fibula. Normal proximal tibiofibular articulation. There is mild degenerative arthrosis of the medial femorotibial compartment. Normal lateral femorotibial compartment. Normal patellofemoral articulation. Soft tissue swelling. RAD/Knee 4 or More Views IMPRESSION: Degenerative arthrosis. Soft tissue swelling. Electronically Signed: Pelon Graham MD at 15:40 EST ,
--- NOTE | 2022-10-30 14:33 | RAD_ITS ---
STUDY: X-RAY - RIGHT ELBOW REASON FOR EXAM: Male, 61 years old. RIGHT ELBOW PAIN following a recent fall TECHNIQUE: 4 view(s) of the elbow. COMPARISON: None. FINDINGS: Normal visualized humerus, radius and ulna. Normal radiocapitellar and ulnotrochlear articulations. The soft tissue structures are unremarkable. RAD/Elbow min 3 Views IMPRESSION: Normal x-ray examination of the elbow. Electronically Signed: Pelon Graham MD at 15:39 EST ,
[2022-10-30 17:47] LABS: Anion Gap 7 (5-15); BUN 27 mg/dL (7-18); BUN/Creat Ratio 12.6 RATIO (10-20); Calcium,Total 9.1 mg/dL (8.5-10.1); Chloride 104 mmol/L (98-107); Creatinine, Serum 2.14 mg/dL (0.70-1.30); EST Glomerular Filtration Rate 34 mL/min (>60); Est Glom Filt Rate - Afr Amer 41 mL/min (>60); Glucose 141 mg/dL (74-106); Potassium 3.9 mmol/L (3.5-5.1); Sodium Level 137 mmol/L (136-145)
== END | disposition home or self-care (01) ==
PROVIDERS: Internal Medicine Nephrology; Referring Provider Family Medicine Geriatric Medicine; Visit Provider Family Medicine Geriatric Medicine
DX: E87.5 Hyperkalemia (principal); M25.521 Pain in right elbow; M25.561 Pain in right knee
CPT/HCPCS: 36415; 73080; 73564; 80048

== ENCOUNTER 2022-11-01 12:24 | Emergency (ER) | payer MEDICARE, SELFPAY ==
[2022-11-01 12:26] VITALS: BP 116/77; PULSE 142; RESP 18; TEMP 36; O2SAT 98; BMI 48.3
--- NOTE | 2022-11-01 12:38 | EKG12_ITS ---
Test Reason : REPEAT Blood Pressure : / mmHG Vent. Rate : 062 BPM Atrial Rate : 062 BPM P-R Int : 222 ms QRS Dur : 092 ms QT Int : 424 ms P-R-T Axes : 069 -30 028 degrees QTc Int : 430 ms Sinus rhythm with 1st degree A-V block Left axis deviation Low voltage QRS Abnormal ECG Confirmed by CARLA SHIPMAN, SUGAR ([id number]), web content editor JULIO CÉSAR SOLORIO ([id number]) on 11/05/2022 11:07:40 AM Referred By: Confirmed By:SUGAR AGUIRRE MD
--- NOTE | 2022-11-01 12:51 | EX.ED.DYSGE1 ---
HPI History of Present Illness Chief Complaint: Palpitations Informant: patient Narrative Narrative: Patient has a history of paroxysmal atrial fibrillation. 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 He was referred to EP cardiology had [facility], but has not seen anyone there yet. He has been under rate control, and it sounds like from what the family and patient are saying that cardiology has discussed rhythm control. The patient states that upon arrival here or just before, he went out of A-fib, and then he went back into a but not as fast as he was at home. He feels okay right now with his heart rate in the 90s. [facility] Medical History (HFpEF) heart failure with preserved ejection fraction Acidosis, lactic Acute hypotension Anemia of chronic disease Ascites Atherosclerotic heart disease of [place] coronary artery without angina pectoris Atrial fibrillation Atrial flutter with rapid ventricular response (02/02/21) Cellulitis Chronic renal failure, stage 3 (moderate) Cirrhosis Coronary artery disease Gout History of non-ST elevation myocardial infarction (NSTEMI) (12/29/20) Kidney disease Morbid obesity Multiple falls Nonsustained paroxysmal ventricular tachycardia (12/2020) Right hip pain Venous insufficiency Vertigo, central Home Medications ursodiol 250 mg tablet (PAT 250) 375 mg PO BID GALLSTONES 04/07/19 [History Last Taken 07/20/22] potassium chloride 10 mEq tablet,extended release(part/cryst) 20 meq PO QODAY supplement 01/19/21 [History Last Taken 07/18/22] cyclobenzaprine 10 mg tablet 10 mg PO TID PRN Spasms 06/19/22 [History Last Taken 07/20/22] ondansetron 4 mg disintegrating tablet 4 mg PO Q8H PRN Nausea 06/19/22 [History Last Taken 07/20/22] sulfamethoxazole 400 mg-trimethoprim 80 mg tablet 1 tab PO DAILY LIVER TRANSPLANT 06/19/22 [History Last Taken 07/20/22] tacrolimus 0.5 mg capsule, immediate-release 0.5 mg PO 0900,2100 IMMUNE #60 caps 06/21/22 [Rx Last Taken 07/20/22] apixaban 5 mg tablet (Eliquis) 5 mg PO BID BLOOD THINNER 07/20/22 [History Last Taken 07/20/22] alprazolam 0.5 mg tablet 0.5 mg PO DAILY PRN Anxiety 3 days #3 tabs 07/25/22 [Rx Last Taken Unknown] lactulose 20 gram/30 mL oral solution 20 g PO BID LIVER 07/25/22 [History Last Taken Unknown] colchicine 0.6 mg capsule 0.6 mg PO DAILY 30 days #30 caps 08/09/22 [Rx Last Taken Unknown] ferrous sulfate 325 mg (65 mg iron) tablet 325 mg PO DAILY 09/24/22 [History Last Taken Unknown] magnesium 1 tab PO DAILY 09/24/22 [History Last Taken Unknown] metoprolol tartrate 50 mg tablet 50 mg PO BID #60 tabs 09/30/22 [Rx Last Taken Unknown] oxycodone 10 mg tablet,crush resistant,extended release 12 hr (OxyContin) 20 mg PO BID 7 days #28 tabs 09/30/22 [Rx Last Taken Unknown] oxycodone 5 mg tablet 5 mg PO TID PRN Pain Score 6-10 5 days #15 tabs 09/30/22 [Rx Last Taken Unknown] oxycodone myristate 18 mg capsule sprinkle extended release 12hr(DON'T CRUSH) (Xtampza ER) 18 mg PO BID 7 days #14 ea 09/30/22 [Rx Last Taken Unknown] prednisone 20 mg tablet 40 mg PO DAILY #15 tabs 09/30/22 [Rx Last Taken Unknown] amiodarone 200 mg tablet 200 mg PO DAILY #60 tabs 10/03/22 [Rx Last Taken Unknown] famotidine 20 mg tablet (Pepcid AC) 20 mg PO DAILY 10/03/22 [History Last Taken Unknown] Allergy/AdvReac Type Severity Reaction Status Date / Time pravastatin [From Pravachol] Allergy Hives Verified 09/19/22 15:15 Pdhchri-FNT-DkR Reductase Allergy Hives Verified 09/19/22 15:15 Inhibitor [Uqqwhxn-Bui-Xgy Reductase Inhibitor] vancomycin Allergy NEEDS Verified 09/19/22 15:15 FOLLOW-UP zolpidem tartrate Allergy Hives Verified 09/19/22 15:15 [From Ambien] everolimus AdvReac Swelling Verified 09/19/22 15:15 gabapentin AdvReac NEEDS Verified 09/19/22 15:15 FOLLOW-UP Family History Mother Heart disease Father Heart disease Surgical History H/O shoulder surgery History of cardioversion (02/02/21) History of hip surgery Liver transplant recipient Status post liver transplant (07/2017) Social History household members: spouse Smoking Status: Never smoker alcohol intake: former substance use type: does not use caffeine: No ROS ROS ED Constitutional Constitutional ED: Denies chills or fever(s) Eyes Eyes: Denies change in vision or diplopia ENT ENT ED: Denies rhinorrhea or sore throat Cardiovascular Cardiovascular: Reports palpitations and racing heartbeat; Denies chest pain Respiratory/Chest Respiratory/Chest: Denies cough or dyspnea Gastrointestinal Gastrointestinal: Denies abdominal pain, diarrhea, nausea or vomiting Genitourinary Genitourinary ED: Denies dysuria or hematuria Musculoskeletal Musculoskeletal: Denies back pain or neck pain Integumentary Denies abscess or rash Neurologic Neurologic: Denies headache(s), paresthesias or weakness Psychiatric Psychiatric: Denies anxiety or suicidal thoughts EXAM Physical Exam Const Vital Signs: 11/01/22 12:26 11/01/22 12:30 11/01/22 13:00 Temperature 96.8 F L Temperature Source Temporal Pulse Rate 142 H 94 Respiratory Rate 18 19 H Respiratory Pattern Normal Blood Pressure 116/77 109/67 Blood Pressure Mean 90 81 Pulse Ox 98 95 Oxygen Delivery Method Room Air Room Air 11/01/22 14:00 Temperature Temperature Source Pulse Rate 99 Respiratory Rate 23 H Respiratory Pattern Blood Pressure 117/70 Blood Pressure Mean 85 Pulse Ox 97 Oxygen Delivery Method Room Air Positive well nourished, well developed and obese General Appearance ED: well developed and NAD Nutritional Appearance: obese HEENT Reports moist mucous membranes normocephalic and atraumatic Eyes PERRL and EOMs intact bilaterally Neck full ROM and supple Resp normal respiratory effort and clear to auscultation bilaterally Cardio no murmurs Rate: Negative for tachycardic Rhythm: abnormal rhythm irregularly irregular GI non-tender and non-distended Auscultation: normoactive bowel sounds Palpation: soft Back/Spine no CVA tenderness General Back: other FROM Extremity normal to inspection General Extremety ED: Negative for edema, pulses abnormal or tenderness General Extremity: Negative for edema or pulses abnormal Neuro oriented x3, CN's II-XII intact bilaterally and no sensory deficits noted Sensorium / Orientation: awake and alert Motor Exam: strength 5/5 throughout Skin no rashes or lesions noted and no wounds MDM MDM MDM Narrative Medical decision making narrative: Patient asymptomatic while resting here in the 90-100 range in A-fib discussed with Dr. Jerry, he agrees with my assessment to observe the patient to see if he spontaneously converts since he did that earlier. We did this, we monitored the patient for 3 to 4 hours and at 1 point I reevaluated his monitor, the patient's symptoms did not change since he was asymptomatic except feeling fatigued, and he appeared to be in a sinus rhythm. I repeated EKG which confirmed this. No indication for cardioversion given this, discharged to follow-up. Rhythm Strip Rhythm Strip: A-fib Rate: 98 Ectopy: None EKG Initial EKG: Attestation: I personally reviewed and interpreted this EKG as follows: Interpretation: No Acute Injury Pattern and Atrial Fibrillation Prior EKG tracings: available for review Prior: Unchanged Follow-up EKG: Attestation: I personally reviewed and interpreted this EKG as follows: Interpretation: Sinus Rhythm, No Acute Injury Pattern and AV Block (1st) Prior: Changed (Spontaneously converted to sinus rhythm) Discharge Plan Triage Chief Complaint: Palpitations ED Provider: Guido Haile Dx/Rx/DC Orders Clinical Impression: Paroxysmal atrial fibrillation Instructions: AFib Dc Prescriptions: No Action famotidine [Pepcid AC] 20 mg tablet 20 mg PO DAILY amiodarone 200 mg tablet 200 mg PO DAILY Qty: 60 0RF ursodiol [PAT 250] 250 MG tablet 375 mg PO BID Label Comments: Take 1 tablet by mouth three times daily. still needs tonights dose potassium chloride 10 mEq tablet,ER particles/crystals 20 meq PO QODAY cyclobenzaprine 10 mg tablet 10 mg PO TID PRN (Reason: Spasms) Label Comments: Take 1 tablet by mouth three times daily as needed. sulfamethoxazole-trimethoprim 400-80 mg tablet 1 tab PO DAILY Label Comments: TAKE 1 TABLET BY MOUTH DAILY ondansetron 4 mg tablet,disintegrating 4 mg PO Q8H PRN (Reason: Nausea) Label Comments: Take 1 tablet by mouth every 8 hours as needed. tacrolimus 0.5 mg capsule 0.5 mg PO 0900,2100 Qty: 60 0RF Label Comments: 1 capsule by mouth as directed Rx Instructions: Continue at the direction of [facility] Eliquis 5 mg tablet 5 mg PO BID alprazolam 0.5 MG tablet 0.5 mg PO DAILY PRN (Reason: Anxiety) 3 Days Qty: 3 0RF lactulose 20 gram/30 mL solution 20 g PO BID Rx Instructions: Please titrate up if needed to attain 2-3 bowel movements daily colchicine 0.6 mg Capsule 0.6 mg PO DAILY 30 Days Qty: 30 0RF ferrous sulfate 325 mg (65 mg iron) Tablet 325 mg PO DAILY magnesium Tablet 1 tab PO DAILY oxycodone 5 mg Tablet 5 mg PO TID PRN (Reason: Pain Score 6-10) 5 Days Qty: 15 0RF metoprolol tartrate 50 mg Tablet 50 mg PO BID Qty: 60 0RF oxycodone [OxyContin] 10 mg Tablet,Oral Only,Ext.Rel.12 Hr 20 mg PO BID 7 Days Qty: 28 0RF prednisone 20 mg tablet 40 mg PO DAILY Qty: 15 0RF Rx Instructions: 1 twice a day for 3 days, then 1-1/2 daily for 3 days, then 1 daily for 3 days, then one half a day for 3 days then stop Xtampza ER 18 mg cap,sprinkl,ER12hr(DONT CRUSH) 18 mg PO BID 7 Days Qty: 14 0RF Rx Instructions: must administer with a meal/food Primary Care Provider: Lance Bose Chi Referrals: Student Records Coordinator, your [Other] - As soon as possible (to reeval poss EP cardiology referral/appt) Lance Bose Chi, MD [Primary Care Provider] - Disposition Disposition: Home, Self Care
[2022-11-01 13:00] VITALS: BP 109/67; PULSE 94; RESP 19; O2SAT 95
[2022-11-01 14:00] VITALS: BP 117/70; PULSE 99; RESP 23; O2SAT 97
--- NOTE | 2022-11-01 15:18 | EKG12_ITS ---
Test Reason : CP Blood Pressure : / mmHG Vent. Rate : 097 BPM Atrial Rate : 092 BPM P-R Int : 000 ms QRS Dur : 092 ms QT Int : 370 ms P-R-T Axes : 000 -31 046 degrees QTc Int : 469 ms Atrial fibrillation with premature ventricular or aberrantly conducted complexes Left axis deviation Low voltage QRS Abnormal ECG Confirmed by CARLA SHIPMAN, SUGAR ([id number]), social media editor JULIO CÉSAR SOLORIO ([id number]) on 11/05/2022 11:07:14 AM Referred By: MOISES Confirmed By:SUGAR AGUIRRE MD
[2022-11-01 16:02] VITALS: BP 114/52; PULSE 58; RESP 18; O2SAT 99
== END 2022-11-01 16:04 | disposition home or self-care (01) ==
PROVIDERS: Emergency Provider Emergency Medicine; PCP Family Medicine Geriatric Medicine; Visit Provider Emergency Medicine
DX: I48.0 Paroxysmal atrial fibrillation (principal); I50.30 Unspecified diastolic (congestive) heart failure; N18.30 Chronic kidney disease, stage 3 unspecified; R00.2 Palpitations; I25.10 Atherosclerotic heart disease of native coronary artery without angina pectoris; E66.9 Obesity, unspecified
CPT/HCPCS: 93005; 99284; A4216

== ENCOUNTER 2022-11-04 16:32 | Emergency (ER) | payer MEDICARE, SELFPAY ==
[2022-11-04 16:33] VITALS: BP 151/94; PULSE 83; RESP 14; TEMP 36.6; O2SAT 98
--- NOTE | 2022-11-04 17:04 | EX.ED.DYSGE1 ---
HPI <MARNIE Hernandez - Last Filed: 11/04/22 19:44> History of Present Illness Chief Complaint: Weakness Narrative Narrative: 61-year-old male with PMH of liver transplant 2017 due to FELIPE, CKD, A-fib presents with altered mental status. He states he was recently in the ER for A-fib and then about 3 days ago he started to feel weak, shaky, and his family report labile moods with anger and confusion. He was repeating himself multiple times. He did not remember the day until prompted. He takes lactulose but slept all day yesterday and skipped it until he had a dose today. His only complaint is abdominal discomfort from taking his lactulose. He has no fever, cough or respiratory symptoms, chest pain or shortness of breath. His transplant was done at [facility] but most of his care has been transferred down to specialists at [place]. He is on tacrolimus and chronic Bactrim. He also takes Eliquis for A-fib. PFSH <MARNIE Hernandez - Last Filed: 11/04/22 19:44> [facility] Medical History (HFpEF) heart failure with preserved ejection fraction Acidosis, lactic Acute hypotension Anemia of chronic disease Ascites Atherosclerotic heart disease of [place]qu[place] coronary artery without angina pectoris Atrial fibrillation Atrial flutter with rapid ventricular response (02/02/21) Cellulitis Chronic renal failure, stage 3 (moderate) Cirrhosis Coronary artery disease Gout History of non-ST elevation myocardial infarction (NSTEMI) (12/29/20) Kidney disease Morbid obesity Multiple falls Nonsustained paroxysmal ventricular tachycardia (12/2020) Right hip pain Venous insufficiency Vertigo, central Home Medications ursodiol 250 mg tablet (PAT 250) 375 mg PO BID GALLSTONES 04/07/19 [History Last Taken 11/04/22] cyclobenzaprine 10 mg tablet 10 mg PO TID PRN Spasms 06/19/22 [History Last Taken 2 Days Ago ~11/02/22] ondansetron 4 mg disintegrating tablet 4 mg PO Q8H PRN Nausea 06/19/22 [History Last Taken 07/20/22] sulfamethoxazole 400 mg-trimethoprim 80 mg tablet 1 tab PO DAILY LIVER TRANSPLANT 10/18/22 [History Last Taken 11/04/22] tacrolimus 0.5 mg capsule, immediate-release 0.5 mg PO 0900,2100 IMMUNE #60 caps 06/21/22 [Rx Last Taken 11/04/22] apixaban 5 mg tablet (Eliquis) 5 mg PO BID BLOOD THINNER 07/20/22 [History Last Taken 11/04/22] alprazolam 0.5 mg tablet 0.5 mg PO DAILY PRN Anxiety 3 days #3 tabs 07/25/22 [Rx Last Taken 11/03/22] lactulose 20 gram/30 mL oral solution 20 g PO BID LIVER 07/25/22 [History Last Taken 11/04/22] ferrous sulfate 325 mg (65 mg iron) tablet 325 mg PO DAILY 09/24/22 [History Last Taken 11/03/22] magnesium 1 tab PO DAILY 09/24/22 [History Last Taken 11/03/22] metoprolol tartrate 50 mg tablet 50 mg PO BID #60 tabs 09/30/22 [Rx Last Taken 11/04/22] oxycodone 10 mg tablet,crush resistant,extended release 12 hr (OxyContin) 20 mg PO BID 7 days #28 tabs 09/30/22 [Rx Last Taken 11/03/22] prednisone 20 mg tablet 40 mg PO DAILY #15 tabs 09/30/22 [Rx Last Taken 11/04/22] amiodarone 200 mg tablet 200 mg PO DAILY #60 tabs 10/03/22 [Rx Last Taken 11/03/22] famotidine 20 mg tablet (Pepcid AC) 20 mg PO DAILY 10/03/22 [History Last Taken 11/04/22] allopurinol 300 mg tablet 300 mg PO DAILY GOUT 11/04/22 [History Last Taken 11/04/22] furosemide 40 mg tablet 40 mg PO DAILY EDEMA 11/04/22 [History Last Taken 11/04/22] Allergy/AdvReac Type Severity Reaction Status Date / Time pravastatin [From Pravachol] Allergy Hives Verified 11/04/22 16:33 Gavxjzs-BXA-RaP Reductase Allergy Hives Verified 11/04/22 16:33 Inhibitor [Etyhoon-Vwv-Pev Reductase Inhibitor] vancomycin Allergy NEEDS Verified 11/04/22 16:33 FOLLOW-UP zolpidem tartrate Allergy Hives Verified 11/04/22 16:33 [From Ambien] everolimus AdvReac Swelling Verified 11/04/22 16:33 gabapentin AdvReac NEEDS Verified 11/04/22 16:33 FOLLOW-UP Family History Mother Heart disease Father Heart disease Surgical History H/O shoulder surgery History of cardioversion (02/02/21) History of hip surgery Liver transplant recipient Status post liver transplant (07/2017) Social History household members: spouse Smoking Status: Never smoker alcohol intake: former substance use type: does not use caffeine: No ROS <MARNIE Hernandez - Last Filed: 11/04/22 19:44> ROS ED ROS Narrative Constitutional: Positive for malaise. Negative for fever, chills. ENT: Negative for sore throat, ear pain, rhinorrhea. CVS: Negative for palpitations, chest pain, syncope. Respiratory: Negative for shortness of breath, cough, orthopnea. GI: Positive for abdominal pain. Negative for nausea, vomiting, diarrhea, constipation, melena, hematochezia. : Negative for dysuria, hematuria or frequency. Neuro: Negative for headache. Skin: Negative for rash, abscess, or wound. Musc: Negative for joint pain, swelling, trauma. EXAM <MARNIE Hernandez - Last Filed: 11/04/22 19:44> Physical Exam Narrative Exam Narrative: CONST: Patient sitting in no acute distress. EYES: Normal inspection. ENT: Normal inspection, moist mucous membranes. NECK: Normal inspection. RESP: No respiratory distress, CTAB. CVS: Regular rate and rhythm, no murmur, no gallop. ABD: Soft obese abdomen is nontender, no guarding or rebound, nondistended. SKIN: Color normal, no rash, warm, dry, intact. EXTREMITIES: Normal appearance, no pedal edema. NEURO: Alert to self, place, situation. When asked the year he stated his age but then did correctly say 2022. Follows commands. Moving all extremities, normal strength and sensation, face symmetric. PSYCH: Normal affect. Const Vital Signs: 11/04/22 16:33 11/04/22 17:13 11/04/22 17:33 Temperature 98 F Temperature Source Temporal Pulse Rate 83 73 Respiratory Rate 14 15 Respiratory Effort Normal Non-Labored Respiratory Pattern Normal Blood Pressure 151/94 H 166/85 H Blood Pressure Mean 113 112 Pulse Ox 98 97 Oxygen Delivery Method Room Air Room Air 11/04/22 18:00 11/04/22 19:42 11/04/22 19:42 Temperature 98 F 98 F Temperature Source Oral Pulse Rate 94 71 Respiratory Rate 18 14 Respiratory Effort Respiratory Pattern Blood Pressure 169/110 H 117/77 Blood Pressure Mean 129 Pulse Ox 96 98 Oxygen Delivery Method Room Air <Dr. Cliff Navarrete MD - Last Filed: 11/04/22 17:34> Physical Exam Const Vital Signs: 11/04/22 16:33 11/04/22 17:13 11/04/22 17:33 Temperature 98 F Temperature Source Temporal Pulse Rate 83 73 Respiratory Rate 14 15 Respiratory Effort Normal Non-Labored Respiratory Pattern Normal Blood Pressure 151/94 H 166/85 H Blood Pressure Mean 113 112 Pulse Ox 98 97 Oxygen Delivery Method Room Air Room Air 11/04/22 18:00 11/04/22 19:42 11/04/22 19:42 Temperature 98 F 98 F Temperature Source Oral Pulse Rate 94 71 Respiratory Rate 18 14 Respiratory Effort Respiratory Pattern Blood Pressure 169/110 H 117/77 Blood Pressure Mean 129 Pulse Ox 96 98 Oxygen Delivery Method Room Air MDM <MARNIE Hernandez - Last Filed: 11/04/22 19:44> [facility] MDM Narrative Medical decision making narrative: History gathered from: Patient, and daughter Patient has had a few days of fatigue, shakiness, intermittent confusion. He appears well and nontoxic. Vital signs unremarkable, afebrile. He has no focal neurological deficits. He is alert and oriented. His medical exam is unremarkable. Differential includes metabolic versus infectious etiology, hepatic encephalopathy. He has no strokelike symptoms so I do not suspect this. CBC shows white count of 10.1 and hemoglobin of 12.5 higher than previous baseline. Sodium and potassium are normal, creatinine of 2.9 elevated from baseline around 2.0?2.1. He is likely dehydrated as he has not had good p.o. intake over the last few days. He was given a liter of fluids. Glucose is 264 with normal anion gap. Liver enzymes unremarkable. Ammonia is 64 which is slightly elevated but not significantly enough to cause hepatic encephalopathy. Family member states when he has been confused before its been over 100. He did take a dose of lactulose earlier this morning and they plan on giving an additional dose tonight. CT brain and CXR showed no acute findings. Family is comfortable taking him home and will make sure he stays hydrated. He was able to ambulate today at their home with no issues. They were told to return for any new or worsening symptoms and he was discharged in stable condition. I considered admission but really the only finding was dehydration causing AISSATOU. He is not confused or altered here. He was given IV fluids. His vital signs remained normal. On reevaluation at 192 his BP is 117/76, heart rate in the 80s. Family would like to take him home and will monitor closely and bring him back if any new symptoms develop. I have personally performed a face to face assessment of the patient and have reviewed the CAMMY Note. I performed a substantive portion of the visit including all aspects of the following. My chan findings include: History is [61-year-old male evaluated with our physician investigative assistant. Brought in for possible mental status change. Family states is a lot of stress going on at home currently he has had a prior liver transplant about 5 to 6 years ago. Said he has had decreased oral intake. He has had no vomiting, diarrhea or fever. No falls or head injury. He is also on blood thinner due to history of A-fib.] Exam is [61-year-old male. No acute distress. Vital signs stable and afebrile. Pulse ox 98% on room air no signs hypoxia. Family at bedside. H EENT exam unremarkable. Mild dry mucous membranes. No signs of trauma. Neck nontender. No JVD. Lungs clear to auscultation. Heart regular rate about 75. Abdomen soft nontender. Normal bowel sounds. No peritoneal signs. Moving all 4 extremities. Neurologically he is awake and alert. He seems anxious. But no focal motor deficits. Answering questions and following commands.] Medical Decision Making [61-year-old male extensive past medical history. Rule out metabolic cause for mental status change. Exam is benign.] Other additions or changes: [None] Lab Data Attestation: I reviewed the patient's lab results. Labs: Laboratory Results - last 24 hr 11/04/22 11/04/22 11/04/22 17:25 17:25 17:25 WBC 10.1 RBC 4.22 L Hgb 12.5 L Hct 38.2 L MCV 90.5 MCH 29.6 MCHC 32.7 RDW Std Deviation 54.7 H RDW Coeff of Maciel 16.8 H Plt Count 447 MPV 9.8 Neut % (Auto) Not Reportable Absolute Neuts (auto) 8.2 H Absolute Lymphs (auto) 0.91 Total Counted 100 Neutrophils % (Manual) 78 H Band Neutrophils % 3 Lymphocytes % (Manual) 9 L Monocytes % (Manual) 5 Metamyelocytes % 3 H Myelocytes % 2 H Diff Path Review May foll Platelet Estimate ADEQUATE Sodium 142 Potassium 4.2 Chloride 110 H Carbon Dioxide 24.0 Anion Gap 8 BUN 52 H Creatinine 2.90 H Estim Creat Clear Calc 27.62 Est GFR (MDRD) Af Amer 29 L Est GFR (MDRD) Non-Af 24 L BUN/Creatinine Ratio 17.9 Glucose 264 H Calcium 9.1 Total Bilirubin 0.60 AST 13 L ALT 16 Alkaline Phosphatase 134 H Ammonia 64.0 H Total Protein 6.7 Albumin 2.4 L Globulin 4.3 H Albumin/Globulin Ratio 0.6 L Urine Color Urine Clarity Urine pH Ur Specific Mcintosh Urine Protein Urine Glucose (UA) Urine Ketones Urine Occult Blood Urine Nitrite Urine Bilirubin Urine Urobilinogen Ur Leukocyte Esterase Urine RBC Urine WBC Ur Squamous Epith Cells Urine Bacteria Urine Mucus 11/04/22 18:31 WBC RBC Hgb Hct MCV MCH MCHC RDW Std Deviation RDW Coeff of Maciel Plt Count MPV Neut % (Auto) Absolute Neuts (auto) Absolute Lymphs (auto) Total Counted Neutrophils % (Manual) Band Neutrophils % Lymphocytes % (Manual) Monocytes % (Manual) Metamyelocytes % Myelocytes % Diff Path Review Platelet Estimate Sodium Potassium Chloride Carbon Dioxide Anion Gap BUN Creatinine Estim Creat Clear Calc Est GFR (MDRD) Af Amer Est GFR (MDRD) Non-Af BUN/Creatinine Ratio Glucose Calcium Total Bilirubin AST ALT Alkaline Phosphatase Ammonia Total Protein Albumin Globulin Albumin/Globulin Ratio Urine Color Yellow Urine Clarity Clear Urine pH 7.0 Ur Specific Mcintosh 1.010 Urine Protein Negative Urine Glucose (UA) Normal Urine Ketones Negative Urine Occult Blood Negative Urine Nitrite Negative Urine Bilirubin Negative Urine Urobilinogen Normal Ur Leukocyte Esterase Negative Urine RBC 0 SEEN Urine WBC 0 SEEN Ur Squamous Epith Cells 0 SEEN Urine Bacteria 0 SEEN Urine Mucus 0 SEEN Radiography Diagnostic Testing: Clinical Impression(s) from Imaging Studies Chest X-Ray 11/04/22 17:40 IMPRESSION: There are no acute findings. Electronically Signed: Joshua Fuentes MD at 18:08 EST , Brain CT 11/04/22 18:30 IMPRESSION: No acute findings in the head/brain. Electronically Signed: Joshua Fuentes MD at 18:59 EST , ED attending interpretation of chest x-ray shows normal heart size and no acute infiltrate or edema. ED attending interpretation of CT brain shows no large mass or hemorrhage. EKG Initial EKG: Attestation: I personally reviewed and interpreted this EKG as follows: Comments: ED attending interpretation of EKG shows normal sinus rhythm at 72 bpm with no ectopy or acute ischemic changes <Dr. Cliff Navarrete MD - Last Filed: 11/04/22 17:34> MDM MDM Narrative Medical decision making narrative: I have personally performed a face to face assessment of the patient and have reviewed the CAMMY Note. I performed a substantive portion of the visit including all aspects of the following. My chan findings include: History is [61-year-old male evaluated with our physician investigative assistant. Brought in for possible mental status change. Family states is a lot of stress going on at home currently he has had a prior liver transplant about 5 to 6 years ago. Said he has had decreased oral intake. He has had no vomiting, diarrhea or fever. No falls or head injury. He is also on blood thinner due to history of A-fib.] Exam is [61-year-old male. No acute distress. Vital signs stable and afebrile. Pulse ox 98% on room air no signs hypoxia. Family at bedside. H EENT exam unremarkable. Mild dry mucous membranes. No signs of trauma. Neck nontender. No JVD. Lungs clear to auscultation. Heart regular rate about 75. Abdomen soft nontender. Normal bowel sounds. No peritoneal signs. Moving all 4 extremities. Neurologically he is awake and alert. He seems anxious. But no focal motor deficits. Answering questions and following commands.] Medical Decision Making [61-year-old male extensive past medical history. Rule out metabolic cause for mental status change. Exam is benign.] Other additions or changes: [None] Lab Data Labs: Laboratory Results - last 24 hr 11/04/22 11/04/22 11/04/22 17:25 17:25 17:25 WBC 10.1 RBC 4.22 L Hgb 12.5 L Hct 38.2 L MCV 90.5 MCH 29.6 MCHC 32.7 RDW Std Deviation 54.7 H RDW Coeff of Maciel 16.8 H Plt Count 447 MPV 9.8 Neut % (Auto) Not Reportable Absolute Neuts (auto) 8.2 H Absolute Lymphs (auto) 0.91 Total Counted 100 Neutrophils % (Manual) 78 H Band Neutrophils % 3 Lymphocytes % (Manual) 9 L Monocytes % (Manual) 5 Metamyelocytes % 3 H Myelocytes % 2 H Diff Path Review May foll Platelet Estimate ADEQUATE Sodium 142 Potassium 4.2 Chloride 110 H Carbon Dioxide 24.0 Anion Gap 8 BUN 52 H Creatinine 2.90 H Estim Creat Clear Calc 27.62 Est GFR (MDRD) Af Amer 29 L Est GFR (MDRD) Non-Af 24 L BUN/Creatinine Ratio 17.9 Glucose 264 H Calcium 9.1 Total Bilirubin 0.60 AST 13 L ALT 16 Alkaline Phosphatase 134 H Ammonia 64.0 H Total Protein 6.7 Albumin 2.4 L Globulin 4.3 H Albumin/Globulin Ratio 0.6 L Urine Color Urine Clarity Urine pH Ur Specific Mcintosh Urine Protein Urine Glucose (UA) Urine Ketones Urine Occult Blood Urine Nitrite Urine Bilirubin Urine Urobilinogen Ur Leukocyte Esterase Urine RBC Urine WBC Ur Squamous Epith Cells Urine Bacteria Urine Mucus 11/04/22 18:31 WBC RBC Hgb Hct MCV MCH MCHC RDW Std Deviation RDW Coeff of Maciel Plt Count MPV Neut % (Auto) Absolute Neuts (auto) Absolute Lymphs (auto) Total Counted Neutrophils % (Manual) Band Neutrophils % Lymphocytes % (Manual) Monocytes % (Manual) Metamyelocytes % Myelocytes % Diff Path Review Platelet Estimate Sodium Potassium Chloride Carbon Dioxide Anion Gap BUN Creatinine Estim Creat Clear Calc Est GFR (MDRD) Af Amer Est GFR (MDRD) Non-Af BUN/Creatinine Ratio Glucose Calcium Total Bilirubin AST ALT Alkaline Phosphatase Ammonia Total Protein Albumin Globulin Albumin/Globulin Ratio Urine Color Yellow Urine Clarity Clear Urine pH 7.0 Ur Specific Mcintosh 1.010 Urine Protein Negative Urine Glucose (UA) Normal Urine Ketones Negative Urine Occult Blood Negative Urine Nitrite Negative Urine Bilirubin Negative Urine Urobilinogen Normal Ur Leukocyte Esterase Negative Urine RBC 0 SEEN Urine WBC 0 SEEN Ur Squamous Epith Cells 0 SEEN Urine Bacteria 0 SEEN Urine Mucus 0 SEEN Radiography Diagnostic Testing: Clinical Impression(s) from Imaging Studies Chest X-Ray 11/04/22 17:40 IMPRESSION: There are no acute findings. Electronically Signed: Joshua Fuentes MD at 18:08 EST , Brain CT 11/04/22 18:30 IMPRESSION: No acute findings in the head/brain. Electronically Signed: Joshua Fuentes MD at 18:59 EST , Discharge Plan Triage Chief Complaint: Weakness ED Midlevel Provider: Staci Larios ED Provider: Cliff Navarrete Dx/Rx/DC Orders Clinical Impression: Altered mental state, Acute kidney injury, Increased ammonia level, History of liver transplant Instructions: ED Dehydration (Adult) Prescriptions: No Action famotidine [Pepcid AC] 20 mg tablet 20 mg PO DAILY amiodarone 200 mg tablet 200 mg PO DAILY Qty: 60 0RF ursodiol [PAT 250] 250 MG tablet 375 mg PO BID Label Comments: Take 1 tablet by mouth three times daily. still needs tonights dose cyclobenzaprine 10 mg tablet 10 mg PO TID PRN (Reason: Spasms) Label Comments: Take 1 tablet by mouth three times daily as needed. sulfamethoxazole-trimethoprim 400-80 mg tablet 1 tab PO DAILY Label Comments: TAKE 1 TABLET BY MOUTH DAILY ondansetron 4 mg tablet,disintegrating 4 mg PO Q8H PRN (Reason: Nausea) Label Comments: Take 1 tablet by mouth every 8 hours as needed. tacrolimus 0.5 mg capsule 0.5 mg PO 0900,2100 Qty: 60 0RF Label Comments: 1 capsule by mouth as directed Rx Instructions: Continue at the direction of [facility] Eliquis 5 mg tablet 5 mg PO BID alprazolam 0.5 MG tablet 0.5 mg PO DAILY PRN (Reason: Anxiety) 3 Days Qty: 3 0RF lactulose 20 gram/30 mL solution 20 g PO BID Rx Instructions: Please titrate up if needed to attain 2-3 bowel movements daily ferrous sulfate 325 mg (65 mg iron) Tablet 325 mg PO DAILY magnesium Tablet 1 tab PO DAILY metoprolol tartrate 50 mg Tablet 50 mg PO BID Qty: 60 0RF oxycodone [OxyContin] 10 mg Tablet,Oral Only,Ext.Rel.12 Hr 20 mg PO BID 7 Days Qty: 28 0RF prednisone 20 mg tablet 40 mg PO DAILY Qty: 15 0RF Rx Instructions: 1 twice a day for 3 days, then 1-1/2 daily for 3 days, then 1 daily for 3 days, then one half a day for 3 days then stop furosemide 40 mg tablet 40 mg PO DAILY Label Comments: TAKE 1 TABLET BY MOUTH IN THE MORNING allopurinol 300 mg tablet 300 mg PO DAILY Label Comments: TAKE 1 TABLET BY MOUTH DAILY Primary Care Provider: Lance Bose Chi Referrals: Lnace Bose Chi, MD [Primary Care Provider] - Activity Restrictions/Additional Instructions: Today his blood work shows he is dehydrated since he has not been eating or drinking much. Please make sure he drinks plenty of fluids and take another dose of lactulose tonight. Return to the ER for any new or worsening symptoms. Disposition Disposition: Home, Self Care
[2022-11-04 17:13] VITALS: BP 166/85; PULSE 73; RESP 15; O2SAT 97; BMI 47.9
[2022-11-04] MEDS: 0.9% Normal Saline 1,000 ML 999 ML IV (17:24)
--- NOTE | 2022-11-04 17:27 | EKG12_ITS ---
Test Reason : Blood Pressure : / mmHG Vent. Rate : 072 BPM Atrial Rate : 072 BPM P-R Int : 196 ms QRS Dur : 094 ms QT Int : 420 ms P-R-T Axes : 030 -33 030 degrees QTc Int : 459 ms Normal sinus rhythm Left axis deviation Abnormal ECG Confirmed by CARLA SHIPMAN, SUGAR ([id number]), book editor JULIO CÉSAR SOLORIO ([id number]) on 11/05/2022 2:42:52 PM Referred By: Confirmed By:SUGAR AGUIRRE MD
--- NOTE | 2022-11-04 17:40 | RAD_ITS ---
STUDY: XR Chest 1 View 11/04/2022 5:35 PM REASON FOR EXAM: Male, 61 years old. CHEST PAIN confusion COMPARISON: 09/24/2022 TECHNIQUE: XR Chest 1 View FINDINGS: There is no demonstrated pleural abnormality. Total left shoulder arthroplasty. Prominent heart size. Normal mediastinum. Normal debora. Prominent appearing increased interstitial lung markings. Normal visualized pulmonary arteries. There is atherosclerotic calcification of the aortic arch with tortuosity. There are diffuse degenerative changes of the visualized thoracic spine. There is degenerative osteoarthritis of the bilateral shoulders. There is no demonstrated abnormality of the visualized soft tissue structures of the upper abdomen. RAD/Chest 1 View (Portable) IMPRESSION: There are no acute findings. Electronically Signed: Joshua Fuentes MD at 18:08 EST ,
[2022-11-04 17:55] LABS: Hematocrit 38.2 % (40-54); Hemoglobin 12.5 g/dL (13.0-16.5); Mean Corp Hgb Conc 32.7 g/dL (32-36); Mean Corpuscular Hgb 29.6 pg (27.0-32.0); Mean Corpuscular Volume 90.5 fL (80-94); Mean Platelet Vol. 9.8 fl (6.2-12.0); POSITIVE COUNT YES; POSITIVE MORPHOLOGY YES; Platelet Count 447 K/mm3 (150-450); RBC Distribution Width CV 16.8 % (11.6-14.6); RBC Distribution Width SD 54.7 fl (35.1-43.9); Red Blood Count 4.22 M/mm3 (4.6-6.2); White Blood Count 10.1 K/mm3 (4.4-11.0)
[2022-11-04 17:56] LABS: ALB/GLOB Ratio 0.6 RATIO (0.9-2.4); AST(SGOT) 13 U/L (15-37); Alanine Aminotransfer ALT/SGPT 16 U/L (16-61); Albumin, Serum 2.4 g/dL (3.2-5.0); Alkaline Phosphatase 134 U/L (45-117); Anion Gap 8 (5-15); BUN 52 mg/dL (7-18); BUN/Creat Ratio 17.9 RATIO (10-20); Calcium,Total 9.1 mg/dL (8.5-10.1); Chloride 110 mmol/L (98-107); EST Glomerular Filtration Rate 24 mL/min (>60); Est Glom Filt Rate - Afr Amer 29 mL/min (>60); Estimated Creatinine Clearance 27.62 ml/min; Globulin 4.3 g/dL (2.2-4.2); Glucose 264 mg/dL (74-106); Potassium 4.2 mmol/L (3.5-5.1); Protein, Total 6.7 g/dL (6.4-8.2); Sodium Level 142 mmol/L (136-145)
[2022-11-04 17:59] LABS: Differential Indicated MANUAL DIFF
[2022-11-04 18:00] VITALS: BP 169/110; PULSE 94; RESP 18; O2SAT 96
--- NOTE | 2022-11-04 18:30 | CT_ITS ---
EXAM: CT HEAD WITHOUT INTRAVENOUS CONTRAST CLINICAL INDICATION: altered ment TECHNIQUE: Multiple axial images were obtained of the head without intravenous contrast. This CT exam was performed using one or more of the following dose reduction techniques: automated exposure control, adjustment of the mA and/or kV according to patient size, and/or use of iterative reconstruction technique. This report was created using ViVi[employer] report generation technology. RADIATION DOSE: CTDIvol = 44.99 mGy, DLP = 880.47 mGy-cm COMPARISON: 9.16.19 FINDINGS: BRAIN AND EXTRA-AXIAL SPACES: Mild cerebral atrophy. No intra- or extra-axial hemorrhage. No evidence of acute infarct. No intracranial mass or mass effect. There is preservation of the mccracken/white matter interface. Posterior fossa structures are unremarkable. No hydrocephalus. Basal cisterns are patent. BONES/JOINTS: Unremarkable. No discrete lytic or blastic abnormalities. SINUSES: Unremarkable as visualized. Clear. MASTOID AIR CELLS: Unremarkable. Clear. ORBITS: Visualized globes, extraocular muscles, optic nerves and retrobulbar fat appear unremarkable. CT/Brain/Head without Contrast IMPRESSION: No acute findings in the head/brain. Electronically Signed: Joshua Fuentes MD at 18:59 EST ,
[2022-11-04 18:37] LABS: Lymphocyte 9 % (19-41); Metamyelocyte 3 % (0-1); Monocyte 5 % (0-10); Myelocyte 2 % (0-0); Neutrophil-Band 3 % (0-5); Neutrophil-Segmented 78 % (47-70); Total Cells Counted 100 (MANUAL DIFF)
[2022-11-04 18:38] LABS: Platelet Estimate ADEQUATE (ADEQ)
[2022-11-04 18:40] LABS: Absolute Lymphocyte Count 0.91 X10^3/uL (0.83-4.51); Absolute Neutrophil Count 8.2 X10^3/uL (2.0-7.7)
[2022-11-04 18:48] LABS: Bacteria 0 SEEN /hpf (None Seen); Mucous, Urine 0 SEEN /hpf (<or=2+); Red Blood Cells-Urine 0 SEEN /hpf (0-5); Squamous Epithelial Cells - UA 0 SEEN /hpf (0-5); White Blood Cells 0 SEEN /hpf (0-5)
[2022-11-04 18:49] LABS: Color, Urine Yellow (Yellow); Glucose, Dipstick Normal (Normal); Ketone-Dipstick Negative (Negative); Leukocyte Esterase-Dipstick Negative /ul (Negative); Nitrite-Dipstick Negative (Negative); Occult Blood-Urine Negative /ul (Negative); Protein-Dipstick Negative (Negative); Urine Bilirubin Dipstick Negative (Negative); Urine Clarity Clear (Clear); Urine Urobilinogen Normal (Normal)
[2022-11-04 19:42] VITALS: BP 117/77; PULSE 71; RESP 14; TEMP 36.6; O2SAT 98
[2022-11-05 13:18] LABS: Pathologist Review Reviewed
== END 2022-11-04 19:58 | disposition home or self-care (01) ==
PROVIDERS: Physician Assistant; Emergency Provider Emergency Medicine; PCP Family Medicine Geriatric Medicine; Visit Provider Emergency Medicine
DX: R41.82 Altered mental status, unspecified (principal); Z94.4 Liver transplant status; N17.9 Acute kidney failure, unspecified; I50.30 Unspecified diastolic (congestive) heart failure; I48.91 Unspecified atrial fibrillation; N18.30 Chronic kidney disease, stage 3 unspecified; I25.10 Atherosclerotic heart disease of native coronary artery without angina pectoris; E86.0 Dehydration; Z79.01 Long term (current) use of anticoagulants
CPT/HCPCS: 96360; 99283; 70450; 71045; 80053; 81001; 82140; 85025; 93005; J7030

== ENCOUNTER 2022-11-06 09:54 | Inpatient (IN) | payer MEDICARE, SELFPAY ==
[2022-11-06] VITALS (9 sets, daily range): BP systolic 133–168; BP diastolic 66–88; PULSE 63–87; RESP 14–21; TEMP 36.2–37.1; O2SAT 96–100; BMI 50.2; BMI 47.7
--- NOTE | 2022-11-06 10:12 | EKG12_ITS ---
Test Reason : Blood Pressure : / mmHG Vent. Rate : 075 BPM Atrial Rate : 075 BPM P-R Int : 204 ms QRS Dur : 094 ms QT Int : 434 ms P-R-T Axes : 047 -31 037 degrees QTc Int : 484 ms Somatic/Motion Artifact Sinus rhythm with Premature supraventricular complexes and with occasional Premature ventricular comp lexes Left axis deviation Nonspecific ST and T wave abnormality Abnormal ECG Confirmed by CARLA SHIPMAN, SUGAR ([id number]), material expeditor JULIO CÉSAR SOLORIO ([id number]) on 11/08/2022 8:58:55 AM Referred By: Confirmed By:SUGAR AGUIRRE MD
--- NOTE | 2022-11-06 10:13 | EDS_ITS ---
HPI History of Present Illness Chief Complaint: General Illness Narrative Narrative: 61-year-old male past medical history of nonalcoholic steatohepatitis, status post liver transplant remotely presents with mental status change. This has been going on since last week, on Saturday, 7 days ago his symptoms started. The following day, he thought he was in atrial fibrillation, was seen in the emergency department and evaluated and discharged because he was actually in normal sinus rhythm. He returned to the emergency department 2 days ago on Saturday and had a complete work-up regarding mental status change. He states that he is repeating himself and is more forgetful, and he does not feel right.. He states that he feels strange and not himself. His daughter, who is at the bedside, states that he will say something, does often fall asleep, and then wake up and not remember things. He received a phone call from his primary care provider's office for test results, and his family states that they noticed that he had slurred speech. However, it is much improved currently. His other daughter states that his work-up was negative and they prefer to take him home. He had a slightly elevated ammonia level at that time, but his states that he had 3 bowel movements since that, and he has been taking his lactulose. [facility] Medical History (HFpEF) heart failure with preserved ejection fraction Acidosis, lactic Acute hypotension Anemia of chronic disease Ascites Atherosclerotic heart disease of [place] coronary artery without angina pectoris Atrial fibrillation Atrial flutter with rapid ventricular response (02/02/21) Cellulitis Chronic renal failure, stage 3 (moderate) Cirrhosis Coronary artery disease Gout History of non-ST elevation myocardial infarction (NSTEMI) (12/29/20) Kidney disease Morbid obesity Multiple falls Nonsustained paroxysmal ventricular tachycardia (12/2020) Right hip pain Venous insufficiency Vertigo, central Home Medications ursodiol 250 mg tablet (PAT 250) 375 mg PO BID GALLSTONES 04/07/19 [History Last Taken 11/04/22] cyclobenzaprine 10 mg tablet 10 mg PO TID PRN Spasms 06/19/22 [History Last Taken 2 Days Ago ~11/02/22] ondansetron 4 mg disintegrating tablet 4 mg PO Q8H PRN Nausea 06/19/22 [History Last Taken 07/20/22] sulfamethoxazole 400 mg-trimethoprim 80 mg tablet 1 tab PO DAILY LIVER TRANSPLANT 06/19/22 [History Last Taken 11/04/22] tacrolimus 0.5 mg capsule, immediate-release 0.5 mg PO 0900,2100 IMMUNE #60 caps 06/21/22 [Rx Last Taken 11/04/22] apixaban 5 mg tablet (Eliquis) 5 mg PO BID BLOOD THINNER 07/20/22 [History Last Taken 11/04/22] alprazolam 0.5 mg tablet 0.5 mg PO DAILY PRN Anxiety 3 days #3 tabs 07/25/22 [Rx Last Taken 11/03/22] lactulose 20 gram/30 mL oral solution 20 g PO BID LIVER 07/25/22 [History Last Taken 11/04/22] ferrous sulfate 325 mg (65 mg iron) tablet 325 mg PO DAILY 09/24/22 [History Last Taken 11/03/22] magnesium 1 tab PO DAILY 09/24/22 [History Last Taken 11/03/22] metoprolol tartrate 50 mg tablet 50 mg PO BID #60 tabs 09/30/22 [Rx Last Taken 11/04/22] oxycodone 10 mg tablet,crush resistant,extended release 12 hr (OxyContin) 20 mg PO BID 7 days #28 tabs 09/30/22 [Rx Last Taken 11/03/22] prednisone 20 mg tablet 40 mg PO DAILY #15 tabs 09/30/22 [Rx Last Taken 11/04/22] amiodarone 200 mg tablet 200 mg PO DAILY #60 tabs 10/03/22 [Rx Last Taken 11/03/22] famotidine 20 mg tablet (Pepcid AC) 20 mg PO DAILY 10/03/22 [History Last Taken 11/04/22] allopurinol 300 mg tablet 300 mg PO DAILY GOUT 11/04/22 [History Last Taken 11/04/22] furosemide 40 mg tablet 40 mg PO DAILY EDEMA 11/04/22 [History Last Taken 11/04/22] Allergy/AdvReac Type Severity Reaction Status Date / Time pravastatin [From Pravachol] Allergy Hives Verified 11/06/22 09:59 Jwlbkgv-GYC-UgU Reductase Allergy Hives Verified 11/06/22 09:59 Inhibitor [Cgqfobg-Lgo-Okk Reductase Inhibitor] vancomycin Allergy NEEDS Verified 11/06/22 09:59 FOLLOW-UP zolpidem tartrate Allergy Hives Verified 11/06/22 09:59 [From Ambien] everolimus AdvReac Swelling Verified 11/06/22 09:59 gabapentin AdvReac NEEDS Verified 11/06/22 09:59 FOLLOW-UP Family History Mother Heart disease Father Heart disease Surgical History H/O shoulder surgery History of cardioversion (02/02/21) History of hip surgery Liver transplant recipient Status post liver transplant (07/2017) Social History household members: spouse Smoking Status: Never smoker alcohol intake: former substance use type: does not use caffeine: No ROS ROS ED ROS Narrative Constitutional: No fever, no chills. Generalized weakness. HEENT: No sore throat. No neck pain. No loss of vision. No rhinorrhea. Cardiovascular: No chest pain. No palpitations. No pedal edema. Respiratory: No cough, no shortness of breath. Abdominal: No abdominal pain. No nausea. No vomiting. Genitourinary: No dysuria. No hematuria. Musculoskeletal: No myalgias. No arthralgias. Neurologic: No headaches. No dizziness. No lightheadedness. Reported slurred speech, mental status change. Repeating self. Skin: No rash. No change in color. Psychiatric: No depression. No anxiety. EXAM Physical Exam Const Vital Signs: 11/06/22 09:55 11/06/22 10:33 11/06/22 10:38 Temperature 97.1 F L Temperature Source Temporal Pulse Rate 74 87 Respiratory Rate 14 21 H Respiratory Effort Normal Non-Labored Respiratory Pattern Normal Blood Pressure 146/88 H 168/74 H Blood Pressure Mean 107 105 Pulse Ox 100 99 Oxygen Delivery Method Room Air Room Air MDM MDM MDM Narrative Medical decision making narrative: I reviewed the patient's prior ED visits. He did have complete work-up. They state that his slurred speech has been ongoing. CT of the brain had been performed on Saturday and there was no evidence of stroke. I do not feel that he needs a repeat CT of his brain, or any other imaging currently. I will recheck his ammonia and his urinalysis, but once again, there are no new changes to his mental status since Saturday. I will ensure that he has not become more dehydrated as he had an acute on chronic kidney injury with an elevated creatinine of 2.8 according to the record. EKG was obtained and interpreted by myself which demonstrates sinus rhythm with PACs and PVCs at [address] bpm but [address] acute [address] changes. No STEMI. He has an elevated white count of 18.2 which has increased from previous. Hemoglobin 13.6, hematocrit 43.1. Platelet count normal at 448. In review of his CMP, he has a chloride elevated at 111, BUN of 43 with creatinine improved to 2.68 with his history of chronic renal insufficiency. Glucose is elevated at 196 but he has a normal anion gap of 13. LFTs show low AST and low ALT at 12 and 14 respectively with slightly elevated alk phosphatase at 139 which I think is nonspecific. Ammonia improved to 39. I do not think this is elevated enough to cause his reported repeating phrases and reported mental status change/slurred speech. Lactic acid is elevated at 5.2. He was bolused normal saline 1 L intravenously. Because of his malaise and not feeling right I did also order a troponin, high- sensitivity, which is elevated at 274. This is new for the patient. Even though he had renal insufficiency, he has had normal troponins in the past, at least below 78. I discussed the patient with Dr. Bourgeois with cardiology. As the patient is on Eliquis and has not missed a dose, it was not thought that more anticoagulation was required. Additionally, the release of troponin may not necessarily be cardiac in nature. After I left the room, patient states he was having 4 to 5 minutes of chest pain . He states he did not have chest pain all week. He states he feels pressure in his chest now. Repeat EKG was obtained which was interpreted by myself as normal sinus rhythm at 63 bpm without ectopy or acute ST changes. No STEMI. I then discussed patient with Dr. Valadez for admission to the PCU. Patient is in stable condition. History & Record Review Discussion w/independent historian: Patient and Family Additional record(s) reviewed:: Prior ED visit Lab Data Attestation: I reviewed the patient's lab results. Labs: Laboratory Results - last 24 hr 11/06/22 11/06/22 11/06/22 10:26 10:30 10:30 WBC 18.2 H RBC 4.57 L Hgb 13.6 Hct 43.1 MCV 94.3 H MCH 29.8 MCHC 31.6 L RDW Std Deviation 57.2 H RDW Coeff of Maciel 17.2 H Plt Count 448 MPV 10.4 Immature Gran % (Auto) 1.800 H Neut % (Auto) 77.2 H Lymph % (Auto) 15.7 L [place] % (Auto) 5.1 Eos % (Auto) 0.0 Baso % (Auto) 0.2 Absolute Neuts (auto) 14.1 H Absolute Lymphs (auto) 2.85 Nucleated RBC % 0.3 Sodium 145 Potassium 3.6 Chloride 111 H Carbon Dioxide 21.0 Anion Gap 13 BUN 43 H Creatinine 2.68 H Estim Creat Clear Calc 29.89 Est GFR (MDRD) Af Amer 31 L Est GFR (MDRD) Non-Af 26 L BUN/Creatinine Ratio 16.0 Glucose 196 H Lactic Acid Calcium 8.9 Total Bilirubin 0.80 AST 12 L ALT 14 L Alkaline Phosphatase 139 H Ammonia Troponin I High Sens 274 H* Total Protein 6.6 Albumin 2.4 L Globulin 4.2 Albumin/Globulin Ratio 0.6 L Urine Color Yellow Urine Clarity Clear Urine pH 5.0 Ur Specific [place] 1.020 Urine Protein 15 H Urine Glucose (UA) Normal Urine Ketones 5 H Urine Occult Blood 150 H Urine Nitrite Negative Urine Bilirubin Negative Urine Urobilinogen Normal Ur Leukocyte Esterase 25 H Urine RBC 0-5 SEEN Urine WBC 0-5 SEEN Ur Squamous Epith Cells 5-10 SEEN Uric Acid Crystals RARE Urine Bacteria 0 SEEN Hyaline Casts 25-50 SEEN Urine Mucus 0 SEEN 11/06/22 11/06/22 10:30 10:30 WBC RBC Hgb Hct MCV MCH MCHC RDW Std Deviation RDW Coeff of Maciel Plt Count MPV Immature Gran % (Auto) Neut % (Auto) Lymph % (Auto) [place] % (Auto) Eos % (Auto) Baso % (Auto) Absolute Neuts (auto) Absolute Lymphs (auto) Nucleated RBC % Sodium Potassium Chloride Carbon Dioxide Anion Gap BUN Creatinine Estim Creat Clear Calc Est GFR (MDRD) Af Amer Est GFR (MDRD) Non-Af BUN/Creatinine Ratio Glucose Lactic Acid 5.2 H* Calcium Total Bilirubin AST ALT Alkaline Phosphatase Ammonia 39.0 H Troponin I High Sens Total Protein Albumin Globulin Albumin/Globulin Ratio Urine Color Urine Clarity Urine pH Ur Specific [place] Urine Protein Urine Glucose (UA) Urine Ketones Urine Occult Blood Urine Nitrite Urine Bilirubin Urine Urobilinogen Ur Leukocyte Esterase Urine RBC Urine WBC Ur Squamous Epith Cells Uric Acid Crystals Urine Bacteria Hyaline Casts Urine Mucus Discharge Plan Dx/Rx/DC Orders Clinical Impression: Elevated troponin, Lactic acidosis, Chronic renal insufficiency, Malaise, Chest pain, Hypertension, Liver transplant recipient, FELIPE (nonalcoholic steatohepatitis), Morbid obesity Disposition Disposition: Acute Care Hospital [facility]
[2022-11-06 10:34] LABS: Bacteria 0 SEEN /hpf (None Seen); Mucous, Urine 0 SEEN /hpf (<or=2+)
[2022-11-06 10:38] LABS: Color, Urine Yellow (Yellow); Glucose, Dipstick Normal (Normal); Ketone-Dipstick 5 mg/dl (Negative); Leukocyte Esterase-Dipstick 25 /ul (Negative); Nitrite-Dipstick Negative (Negative); Occult Blood-Urine 150 /ul (Negative); Protein-Dipstick 15 mg/dl (Negative); Urine Bilirubin Dipstick Negative (Negative); Urine Clarity Clear (Clear); Urine Urobilinogen Normal (Normal)
[2022-11-06 10:48] LABS: Absolute Lymphocyte Count 2.85 X10^3/uL (0.83-4.51); Absolute Neutrophil Count 14.1 X10^3/uL (2.0-7.7); Basophil# 0.04 X10^3/uL; Basophil% 0.2 % (0-1); Hematocrit 43.1 % (40-54); Hemoglobin 13.6 g/dL (13.0-16.5); Lymphocyte # 2.85 X10^3/ul (0.83-4.51); Lymphocyte % 15.7 % (19-41); Mean Corp Hgb Conc 31.6 g/dL (32-36); Mean Corpuscular Hgb 29.8 pg (27.0-32.0); Mean Corpuscular Volume 94.3 fL (80-94); Mean Platelet Vol. 10.4 fl (6.2-12.0); Monocyte# 0.92 X10^3/uL; Monocyte% 5.1 % (0-10); NRBC Flagged by Analyzer 0.3 % (0-5); Neutrophil # 14.06 X10^3/uL (2.7-7.7); Neutrophil % 77.2 % (47-70); Platelet Count 448 K/mm3 (150-450); RBC Distribution Width CV 17.2 % (11.6-14.6); RBC Distribution Width SD 57.2 fl (35.1-43.9); Red Blood Count 4.57 M/mm3 (4.6-6.2); White Blood Count 18.2 K/mm3 (4.4-11.0)
[2022-11-06 10:51] LABS: Hyaline Cast 25-50 SEEN /lpf (0-5); Squamous Epithelial Cells - UA 5-10 SEEN /hpf (0-5); Uric Acid Crystals Ur RARE /hpf (<or=1+)
[2022-11-06 10:52] LABS: Red Blood Cells-Urine 0-5 SEEN /hpf (0-5); White Blood Cells 0-5 SEEN /hpf (0-5)
[2022-11-06 11:17] LABS: ALB/GLOB Ratio 0.6 RATIO (0.9-2.4); AST(SGOT) 12 U/L (15-37); Alanine Aminotransfer ALT/SGPT 14 U/L (16-61); Albumin, Serum 2.4 g/dL (3.2-5.0); Alkaline Phosphatase 139 U/L (45-117); Anion Gap 13 (5-15); BUN 43 mg/dL (7-18); Calcium,Total 8.9 mg/dL (8.5-10.1); Chloride 111 mmol/L (98-107); Creatinine, Serum 2.68 mg/dL (0.70-1.30); EST Glomerular Filtration Rate 26 mL/min (>60); Est Glom Filt Rate - Afr Amer 31 mL/min (>60); Estimated Creatinine Clearance 29.89 ml/min; Globulin 4.2 g/dL (2.2-4.2); Glucose 196 mg/dL (74-106); Lactic Acid 5.2 mmol/L (0.4-1.9); Potassium 3.6 mmol/L (3.5-5.1); Protein, Total 6.6 g/dL (6.4-8.2); Sodium Level 145 mmol/L (136-145); Troponin-I HS 274 pg/mL (3.0-78.0)
--- NOTE | 2022-11-06 11:46 | EKG12_ITS ---
Test Reason : CP Blood Pressure : / mmHG Vent. Rate : 063 BPM Atrial Rate : 063 BPM P-R Int : 174 ms QRS Dur : 092 ms QT Int : 392 ms P-R-T Axes : 025 -33 013 degrees QTc Int : 401 ms Somatic/Motion Artifact Normal sinus rhythm Left axis deviation Abnormal ECG Confirmed by CARLA SHIPMAN, SUGAR ([id number]), makeup editor JULIO CÉSAR SOLORIO ([id number]) on 11/08/2022 9:01:54 AM Referred By: ROSANA Confirmed By:SUGAR AGUIRRE MD
[2022-11-06] MEDS: Aspirin 325 MG Tablet PO (11:48)
[2022-11-06] MEDS: 0.9% Normal Saline 1,000 ML 999 ML IV (11:48)
--- NOTE | 2022-11-06 11:50 | NURSING ---
DR DAISY WAYNE
--- NOTE | 2022-11-06 12:02 | NURSING ---
PCU KITTOE ELEVATED TROP, LACTIC ACIDOSIS, RENAL INSUFFICIENCY, MALAISE
--- NOTE | 2022-11-06 12:39 | CDU_ITS ---
Reason For Study: CVA Rt. Velocities/BP Lt. Velocities/BP Prox CCA 67.4/7.8 cm/sec. Prox CCA 92.7/10.2 cm/sec. Mid CCA 54.1/11.6 cm/sec. Mid CCA 67.4/6.9 cm/sec. Dist CCA 54.1/10.7 cm/sec. Dist CCA 65.2/8 cm/sec. Prox ICA 45.6/12.5 cm/sec. Prox ICA 47.6/10.2 cm/sec. Mid ICA 60.8/14.6 cm/sec. Mid ICA 81.7/22.3 cm/sec. Dist ICA 77.3/21.2 cm/sec. Dist ICA 58.8/12.2 cm/sec. Rt. ICA/CCA = 1.43. Lt. ICA/CCA = 1.21. Prox ECA 84.4/10.7 cm/sec. Prox ECA 90/9 cm/sec. Rt. Vert. 30.5/7.8 cm/sec. Lt. Vert. 29.4/6.6 cm/sec. Right Extracranial There is intimal thickening but no significant atherosclerotic plaque noted in the right common carotid artery. There is homogeneous, smooth atherosclerotic plaque noted in the right internal carotid artery. There is intimal thickening but no significant atherosclerotic plaque noted in the right external carotid artery. Antegrade flow is noted in the right vertebral artery. Left Extracranial There is intimal thickening but no significant atherosclerotic plaque noted in the left common carotid artery. There is heterogeneous, irregular atherosclerotic plaque noted in the left internal carotid artery. There is intimal thickening but no significant atherosclerotic plaque noted in the left external carotid artery. Antegrade flow is noted in the left vertebral artery. Procedure Carotid Duplex 66262. This is a Carotid Duplex examination using B-mode, color flow and specral Doppler. Preliminary report given to Andrés BURRELL. Exam performed portable in patient room. VL/Carotid Duplex Ultrasound Interpretation Summary Minimal smooth plaque at the proximal right internal carotid artery with less t [place] 50% stenosis Less than 50% stenosis right external carotid artery Minimal smooth plaque of the proximal left internal carotid artery with less th an 50% stenosis Less than 50% stenosis left external carotid artery Patent and antegrade vertebral arteries bilaterally Ordering Physician: Andrew Cronin Referring Physician: Lance Bose Chi Performed By: Rolanda Harper RVT
--- NOTE | 2022-11-06 12:43 | PCM.HP.STD ---
HPI - General General Date of Admission: 11/06/22 Date of Service: 11/06/22 Chief Complaint: Generalized weakness right arm pain HPI Narrative ESTEFANIA MILLER, is a 61 M with past medical history single for liver transplant on account of nonalcoholic fatty liver disease as well as alpha-1 antitrypsin deficiency on immunosuppressant agent, coronary artery disease with previous stent placement who presented to the emergency department with right arm pain. Patient had apparently been seen the day prior to his admission in the emergency department with altered mental status and some slurred speech. He was thought to be dehydrated given some IV fluid and discharged home. Presented back with right arm pain as stated above. EKG obtained on admission was unremarkable patient was however found to have elevated troponin. He did state that his presentation is similar to what he had when he had his heart attack. Subsequently admitted to a monitored bed for further management [facility] Medical History (HFpEF) heart failure with preserved ejection fraction Acidosis, lactic Acute hypotension Anemia of chronic disease Ascites Atherosclerotic heart disease of [place] coronary artery without angina pectoris Atrial fibrillation Atrial flutter with rapid ventricular response (02/02/21) Cellulitis Chronic renal failure, stage 3 (moderate) Cirrhosis Coronary artery disease Gout History of non-ST elevation myocardial infarction (NSTEMI) (12/29/20) Kidney disease Morbid obesity Multiple falls Nonsustained paroxysmal ventricular tachycardia (12/2020) Right hip pain Venous insufficiency Vertigo, central Home Medications ursodiol 250 mg tablet (PAT 250) 375 mg PO BID GALLSTONES 04/07/19 [History Last Taken 11/04/22] cyclobenzaprine 10 mg tablet 10 mg PO TID PRN Spasms 06/19/22 [History Last Taken 2 Days Ago ~11/02/22] ondansetron 4 mg disintegrating tablet 4 mg PO Q8H PRN Nausea 06/19/22 [History Last Taken 07/20/22] sulfamethoxazole 400 mg-trimethoprim 80 mg tablet 1 tab PO DAILY LIVER TRANSPLANT 06/19/22 [History Last Taken 11/04/22] tacrolimus 0.5 mg capsule, immediate-release 0.5 mg PO 0900,2100 IMMUNE #60 caps 06/21/22 [Rx Last Taken 11/04/22] apixaban 5 mg tablet (Eliquis) 5 mg PO BID BLOOD THINNER 07/20/22 [History Last Taken 11/04/22] alprazolam 0.5 mg tablet 0.5 mg PO DAILY PRN Anxiety 3 days #3 tabs 07/25/22 [Rx Last Taken 11/03/22] lactulose 20 gram/30 mL oral solution 20 g PO BID LIVER 07/25/22 [History Last Taken 11/04/22] ferrous sulfate 325 mg (65 mg iron) tablet 325 mg PO DAILY 09/24/22 [History Last Taken 11/03/22] magnesium 1 tab PO DAILY 09/24/22 [History Last Taken 11/03/22] metoprolol tartrate 50 mg tablet 50 mg PO BID #60 tabs 09/30/22 [Rx Last Taken 11/04/22] oxycodone 10 mg tablet,crush resistant,extended release 12 hr (OxyContin) 20 mg PO BID 7 days #28 tabs 09/30/22 [Rx Last Taken 11/03/22] prednisone 20 mg tablet 40 mg PO DAILY #15 tabs 09/30/22 [Rx Last Taken 11/04/22] amiodarone 200 mg tablet 200 mg PO DAILY #60 tabs 10/03/22 [Rx Last Taken 11/03/22] famotidine 20 mg tablet (Pepcid AC) 20 mg PO DAILY 10/03/22 [History Last Taken 11/04/22] allopurinol 300 mg tablet 300 mg PO DAILY GOUT 11/04/22 [History Last Taken 11/06/22] furosemide 40 mg tablet 40 mg PO DAILY EDEMA 11/04/22 [History Last Taken 11/04/22] pantoprazole 40 mg tablet,delayed release 40 mg PO DAILY ACID REFLUX 11/06/22 [History Last Taken 11/05/22] Allergy/AdvReac Type Severity Reaction Status Date / Time pravastatin [From Pravachol] Allergy Hives Verified 11/06/22 09:59 Henqxxr-ORE-XjZ Reductase Allergy Hives Verified 11/06/22 09:59 Inhibitor [Fsstxli-Bnx-Jcf Reductase Inhibitor] vancomycin Allergy NEEDS Verified 11/06/22 09:59 FOLLOW-UP zolpidem tartrate Allergy Hives Verified 11/06/22 09:59 [From Ambien] everolimus AdvReac Swelling Verified 11/06/22 09:59 gabapentin AdvReac NEEDS Verified 11/06/22 09:59 FOLLOW-UP Family History Mother Heart disease Father Heart disease Surgical History H/O shoulder surgery History of cardioversion (02/02/21) History of hip surgery Liver transplant recipient Status post liver transplant (07/2017) Social History household members: spouse Smoking Status: Never smoker alcohol intake: former substance use type: does not use caffeine: No ROS ROS Narrative GENERAL: denies fever, chills, night sweats, HEENT: denies headache, sinus congestion, RESPIRATORY: denies cough, sputum production, CARDIAC: denies chest pain, palpitations, orthopnea, PND GASTROINTESTINAL: denies abdominal pain, nausea, vomiting, GENITOURINARY: denies dysuria, urgency, frequency, heamaturia EXTREMITY: denies swelling MUSCULOSKELETAL: denies current joint pain or tender HEMATOLOGIC: denies easy bruising and/or hemorrhage INTEGUMENT: denies rashes PSYCHIATRIC: denies suicidal or homicidal ideation Vital Signs Vital Signs Vital Signs: 11/06/22 09:55 11/06/22 10:33 11/06/22 10:38 Temperature 97.1 F L Temperature Source Temporal Pulse Rate 74 87 Respiratory Rate 14 21 H Respiratory Effort Normal Non-Labored Respiratory Pattern Normal Blood Pressure 146/88 H 168/74 H Blood Pressure Mean 107 105 Pulse Ox 100 99 Oxygen Delivery Method Room Air Room Air 11/06/22 12:00 Temperature Temperature Source Pulse Rate 66 Respiratory Rate 18 Respiratory Effort Respiratory Pattern Blood Pressure 155/86 H Blood Pressure Mean 109 Pulse Ox 97 Oxygen Delivery Method Room Air Weight Weight: 158.757 kg Body Mass Index (BMI) 50.2 Physical Exam Narrative GENERAL: cooperative HEENT: Atraumatic; normocephalic EYES; Anicteric, Normal Conjunctiva NECK; supple, normal thyroid, RESPIRATORY: Diminished to auscultation CARDIOVASCULAR: Regular S1 S2, GI: soft, normoactive bowel sounds, : No Renal angle tenderness; EXTREMITIES: No edema, no clubbing, MUSCULOSKELETAL: no muscle wasting NEURO: Awake; no lateralizing signs. SKIN: No Rash PSYCH; Flat affect Results Lab / Micro Data Result Diagrams: 11/06/22 10:30 11/06/22 10:30 Labs: Laboratory Results - last 24 hr 11/06/22 10:26: Urine Color Yellow, Urine Clarity Clear, Urine pH 5.0, Ur Specific [place] 1.020, Urine Protein 15 H, Urine Glucose (UA) Normal, Urine Ketones 5 H, Urine Occult Blood 150 H, Urine Nitrite Negative, Urine Bilirubin Negative, Urine Urobilinogen Normal, Ur Leukocyte Esterase 25 H, Urine RBC 0-5 SEEN, Urine WBC 0-5 SEEN, Ur Squamous Epith Cells 5-10 SEEN, Uric Acid Crystals RARE, Urine Bacteria 0 SEEN, Hyaline Casts 25-50 SEEN, Urine Mucus 0 SEEN 11/06/22 10:30: WBC 18.2 H, RBC 4.57 L, Hgb 13.6, Hct 43.1, MCV 94.3 H, MCH 29.8, MCHC 31.6 L, RDW Std Deviation 57.2 H, RDW Coeff of Maciel 17.2 H, Plt Count 448, MPV 10.4, Immature Gran % (Auto) 1.800 H, Neut % (Auto) 77.2 H, Lymph % (Auto) 15.7 L, [place] % (Auto) 5.1, Eos % (Auto) 0.0, Baso % (Auto) 0.2, Absolute Neuts (auto) 14.1 H, Absolute Lymphs (auto) 2.85, Nucleated RBC % 0.3 11/06/22 10:30: Sodium 145, Potassium 3.6, Chloride 111 H, Carbon Dioxide 21.0, Anion Gap 13, BUN 43 H, Creatinine 2.68 H, Estim Creat Clear Calc 29.89, Est GFR (MDRD) Af Amer 31 L, Est GFR (MDRD) Non-Af 26 L, BUN/Creatinine Ratio 16.0, Glucose 196 H, Calcium 8.9, Total Bilirubin 0.80, AST 12 L, ALT 14 L, Alkaline Phosphatase 139 H, Troponin I High Sens 274 H*, Total Protein 6.6, Albumin 2.4 L, Globulin 4.2, Albumin/Globulin Ratio 0.6 L 11/06/22 10:30: Ammonia 39.0 H 11/06/22 10:30: Lactic Acid 5.2 H* Micro: Microbiology 11/06/22 10:26 Nasal Secretion SARS-CoV-2 & FLU Antigen (Rapid) - Final Assessment & Plan Assessment/Plan (1) Lactic acidosis: (2) Chest pain: PLAN: Plan Patient is a 61-year-old gentleman with multiple comorbidities including liver transplant on account of nonalcoholic fatty liver disease as well as alpha-1 antitrypsin deficiency presented to the emergency department with generalized weakness, right arm pain and elevated troponin 1. Elevated troponin ? Consistent with acute non-STEMI ? Patient has history of coronary disease with previous stent placement. Patient has been admitted to a monitored bed, treatment initiated per protocol with consultation placed to cardiology. As part of patient subsequent management ordered serial cardiac enzymes and 2D echo 2. Paroxysmal A-fib ? Rate controlled on amiodarone and is on systemic anticoagulation with apixaban did continue 3. Transient focal weakness ? Ordered MRI of the brain to rule out acute CVA 4. Lactic acidosis ? There is no evidence of infection at this point do suspect hypoperfusion from patient cardiac ischemic event 5.? History of liver transplant ? In 2017 on account of NAFLD as well as alpha-1 antitrypsin deficiency.? Patient is on Bactrim as well as tacrolimus did continue. Patient did request consultation with Dr. Bales with GI consult placed 6.? Chronic kidney disease stage IV ? Kidney function at baseline 7.? Acute on chronic congestive heart failure with preserved ejection fraction -patient is on diuretics did continue 8.? Class III obesity with BMI of 51 ? Weight loss advised 9.? Hypertension - Blood pressure controlled, home medications continued with dose adjustment as needed 10.? DVT prophylaxis ? Patient is on Eliquis Time spent in the patient's overall evaluation,decision-making process, review of diagnostic data, adjustment of management, discussion with other providers, nursing nursing and ancillary staff involved in patient's care documentation, 77 Minutes Advance planning; did discuss with the patient and family regarding advanced directives as well as CODE STATUS. Did explain the various scenarios involved ( FULL CODE, DNR CCA, DNR CCA with no intubation, and DNR CC and what each meant) patient elected to remain full code with CPR and intubation. Order was placed. Time spent on discussion 18 minutes. Charges/Coding Visit Charges Inpatient E&M: 68452 Init Hosp L3 Procedures Hospitalists Procedures: 18760 Advncd Care Plan 30 Min
--- NOTE | 2022-11-06 13:10 | ECHOLC_ITS ---
Reason For Study: Chest Pain Procedure This was a limited 2D transthoracic echocardiogram. The study was technically difficult. Contrast injection was performed. Exam performed portable in patient room. Left Ventricle Based upon the 2D echocardiographic and contrast enhanced images obtained there appears to be grossly normal left ventricular size, wall motion, and systolic function. The estimated ejection fraction is 65 %. Right Ventricle Based upon the 2D echocardiographic and contrast enhanced images obtained there appears to be grossly normal right ventricular size and systolic function. Atria Normal left atrium. Normal right atrium. No doppler evidence for ASD. Mitral Valve There is no mitral annular calcification. Normal mitral valve. Tricuspid Valve The tricuspid valve is not well visualized. Aortic Valve The aortic valve is not well visualized. Pulmonic Valve The pulmonic valve is not well visualized. Great Vessels The aortic root is not well visualized. Pericardium/Pleural No pericardial effusion. Medication Diluted definity 3ml given slow IV push to enhance endocardial definition. MMode/2D Measurements & Calculations LA dimension: 3.3 cm ECHO/Echo Limited w/Contrast Interpretation Summary The study was technically difficult. Contrast injection was performed. Based upon the 2D echocardiographic and contrast enhanced images obtained there appears to be grossly normal left ventricular size, wall motion, and systolic function. The estimated ejection fraction is 65 %. Ordering Physician: Andrew Cronin Performed By: Marcial Hair RCS
--- NOTE | 2022-11-06 13:10 | EKG12_ITS ---
Test Reason : AM EKG Blood Pressure : / mmHG Vent. Rate : 060 BPM Atrial Rate : 060 BPM P-R Int : 166 ms QRS Dur : 100 ms QT Int : 454 ms P-R-T Axes : -15 -32 034 degrees QTc Int : 454 ms Normal sinus rhythm Left axis deviation Abnormal ECG Confirmed by CARLA SHIPMAN, SUGAR ([id number]), subeditor JULIO CÉSAR SOLORIO ([id number]) on 11/08/2022 9:08:28 AM Referred By: Confirmed By:SUGAR AGUIRRE MD
[2022-11-06 14:41] LABS: Troponin-I HS 204 pg/mL (3.0-78.0)
[2022-11-06 14:46] LABS: Reflex Lactate? Y
--- NOTE | 2022-11-06 14:59 | PCM.CONS.C ---
Assessment & Plan Assessment/Plan (1) Elevated troponin: PLAN: The patient presents with elevated troponin I levels compatible with a non-ST segment elevation AK. At the present time it is unclear whether this represents an underlying acute coronary syndrome event with respect to the patient's history of CAD and PCI versus being a type II event brought out by the patient's noncardiovascular concerns such as a possible SPECIAL DUTY NURSE event superimposed upon the patient's cardiovascular disease process as well as his renal insufficiency, etc. At the moment he appears to be resting comfortably. He is troponin I level is trending down. His repeat ECG is noted. His recent transthoracic echocardiogram as noted above. The patient will continue to be monitored. He will continue medical therapy. An attempt will be made to retrieve his medical records from [facility] regarding his cardiovascular history and procedures. Ideally the patient may be considered for further cardiovascular evaluation with diagnostic cardiac catheterization if he was not found to have any acute noncardiac issues such as this an acute SPECIAL DUTY NURSE event, etc., to inhibit such a procedure. However, there is other noncardiovascular events that are concerning with respect to proceeding in this manner which would include his renal insufficiency based upon the concerns of possible IV contrast related nephropathy and progressive renal insufficiency/failure. Thus, it may be reasonable to continue medical therapy which would include agent such as aspirin, nitrates, beta-blockers, anticoagulant therapy, etc. as deemed appropriate and able to be tolerated taking into consideration his multiple comorbidities-such as concerns with his hepatic history and lipid-lowering therapy with statins, and consider further noninvasive evaluation. Additional noninvasive valuation could include a pharmacologic stress nuclear imaging study to evaluate for any obvious evidence of ongoing myocardial ischemia that would warrant consideration for diagnostic cardiac catheterization, etc. (2) CAD (coronary artery disease): PLAN: The patient has a history of CAD. The details are unknown at this time. An attempt will be made to retrieve his medical records. In the interim he will continue to be monitored. He will continue medical therapy as described above. He will continue a noninvasive valuation. (3) S/P PTCA (percutaneous transluminal coronary angioplasty): PLAN: The patient states he did receive PCI while at [facility] in the past. Again attempt will be made to retrieve the medical records for review. In the interim he will continue evaluation care as noted above (4) PAF (paroxysmal atrial fibrillation): PLAN: The patient has undergone recent evaluation for paroxysmal atrial fibrillation. He has been on medical management which has included his beta-satish therapy with metoprolol tartrate 50 mg p.o. twice daily for rate control and antiarrhythmic therapy with amiodarone at 200 mg p.o. daily as well as being on anticoagulant therapy with apixaban at 5 mg p.o. twice daily. His medications with respect to his antiarrhythmic therapy may need to be taken into consideration based upon concerns of any adverse reaction with respect to his underlying hepatic status. Also his anticoagulant therapy dose may need to be adjusted based upon his underlying renal insufficiency. (5) Hypertension: PLAN: The patient's blood pressure will need to be monitored. He will continue medical therapy taking into consideration adjustments needed based upon his renal insufficiency. (6) Chronic renal insufficiency: PLAN: The patient's chronic renal insufficiency does need to be taken into consideration with respect to medical management as well as whether he is a candidate for additional studies which would include IV contrast. (7) History of liver transplant: PLAN: The patient states that his liver transplant was performed at [facility]. At the current time he does not believe he has any physician following his hepatic status. It appears a consult is being placed to gastroenterology to assist with his hepatic evaluation and care. (8) Altered mental state: PLAN: The patient has been reported as having a recent altered mental status. He has been evaluated for CVA which has been considered negative by CT scan. He has been recommended for brain MRI. However, he states that he cannot go through such a procedure for multiple reasons which include 1 not being able to elevate his left arm above his head based upon his left shoulder replacement; 2 not being able to fit in the MRI based upon his body habitus; 3 and concerns of claustrophobia which he states he developed following his hepatic transplant. He states he would undergo an MRI if he was able to go through such a device that would alleviate the aforementioned issues or concerns. Additional evaluation of his altered mental status with respect to whether this is SPECIAL DUTY NURSE related versus metabolic related, etc., is being proceeded with by internal medicine. Addt'l Comments The patient's case has been discussed and reviewed with the patient and his daughter present as well as with the [facility] emergency department physician staff. Comment: Time spent in the patient's evaluation, examination, review of previous medical records/imaging studies, placing orders, documentation, and discussion with the patient, his daughter, and the [facility] emergency department staff: 60 minutes. HPI Consult Data Date of Consult: 11/06/22 HPI Narrative HPI Narrative: ESTEFANIA MILLER, is a 61 year old white male who presents cardiovascular consultation based upon findings of right upper extremity discomfort, abnormal high-sensitivity troponin I levels, superimposed upon a history of CAD, status post remote AK, status post remote PTCA/stent ([facility]), paroxysmal atrial fibrillation, hypertension, chronic renal insufficiency, chronic anemia, and status post hepatic transplant. He has been previously evaluated by Dr. Thomas of the interventional cardiology section of [facility]. Since his most recent outpatient evaluation on 10-03-2022 he apparently had been doing well until recently. It appears on 11-01-2022 he presented to the [facility] emergency department based upon concerns of recurrent atrial fibrillation. He was observed and was noted to have spontaneous return to sinus rhythm. He was subsequently released home for continued outpatient cardiovascular follow-up. He presented back to the emergency department on 11-04-2022 based upon a combination of concerns which included confusion and altered speech. There was concerns of possible CVA versus underlying metabolic related issues. He underwent evaluation and was not thought to have an acute CVA at the time. He was thought to be somewhat dehydrated with an elevation of his creatinine level. He did not appear to require inpatient evaluation at that time and was subsequently released home for continued outpatient follow-up. However, since that time, he, and his daughter who is with him, states he has not been doing well. They have noted confusion, memory lapses, altered speech, complaints of right upper extremity discomfort, and bilateral upper extremity tremors. Based upon his ongoing concerns his PCP office recommended he present back to the emergency department for additional evaluation and care. He was evaluated in the emergency department for the aforementioned concerns. During his evaluation a high-sensitivity troponin I level was performed which was considered abnormal. He was also noted to have elevated creatinine levels. His ECG appeared to demonstrate sinus rhythm with PACs with left axis deviation and nonspecific ST and T wave changes. His recent chest x-ray from 11-04-2022 was reviewed. At that time it appeared to demonstrate no acute cardiopulmonary disease process. It did demonstrate what appeared to be a prosthetic left shoulder apparatus. He was subsequently placed in the PCU for further evaluation and care. In the PCU it appears he has been resting comfortably with no ongoing right upper extremity discomfort. His high-sensitivity troponin I was repeated and was noted to decrease. A follow-up ECG was performed which demonstrated sinus rhythm with a leftward axis. He does not recall having any associated acute respiratory related issues. He states he does have nausea at times. He has denied ongoing emesis. There is been no obvious report of diaphoresis. There has been no report of recurrent ectopy or dysrhythmias since his most recent presentation to the hospital regarding this issue on 11-01-2022. He denies any near-syncope or syncope. He does state that if he does not take his furosemide/Lasix therapy he does get lower extremity edema. He has [facility] cardiovascular records are unavailable for review at this time. COUNT INCLUDES THE [facility] Medical History (HFpEF) heart failure with preserved ejection fraction Acidosis, lactic Acute hypotension Anemia of chronic disease Ascites Atherosclerotic heart disease of [place] coronary artery without angina pectoris Atrial fibrillation Atrial flutter with rapid ventricular response (02/02/21) Cellulitis Chronic renal failure, stage 3 (moderate) Cirrhosis Coronary artery disease Gout History of non-ST elevation myocardial infarction (NSTEMI) (12/29/20) Kidney disease Morbid obesity Multiple falls Nonsustained paroxysmal ventricular tachycardia (12/2020) Right hip pain Venous insufficiency Vertigo, central Home Medications ursodiol 250 mg tablet (PAT 250) 375 mg PO BID GALLSTONES 04/07/19 [History Last Taken 11/06/22] cyclobenzaprine 10 mg tablet 10 mg PO TID PRN MUSCLE SPASMS 06/19/22 [History Last Taken 2 Days Ago ~11/02/22] ondansetron 4 mg disintegrating tablet 4 mg PO Q8H PRN NAUSEA 06/19/22 [History Last Taken 07/20/22] sulfamethoxazole 400 mg-trimethoprim 80 mg tablet 1 tab PO DAILY LIVER TRANSPLANT 06/19/22 [History Last Taken 11/06/22] apixaban 5 mg tablet (Eliquis) 5 mg PO BID BLOOD THINNER 07/20/22 [History Last Taken 11/06/22] lactulose 20 gram/30 mL oral solution 30 ml PO BID CONSTIPATION 07/25/22 [History Last Taken 11/06/22] famotidine 20 mg tablet (Pepcid AC) 20 mg PO DAILY ACID REFLUX 10/03/22 [History Last Taken 11/06/22] allopurinol 300 mg tablet 300 mg PO DAILY GOUT 11/04/22 [History Last Taken 11/06/22] furosemide 40 mg tablet 40 mg PO DAILY FLUID 11/04/22 [History Last Taken 11/06/22] alprazolam 0.5 mg tablet 0.5 mg PO DAILY PRN ANXIETY 11/06/22 [History Last Taken 11/05/22] amiodarone 200 mg tablet 200 mg PO DAILY IRREGULAR HEARTBEAT 11/06/22 [History Last Taken 11/06/22] metoprolol tartrate 50 mg tablet 50 mg PO BID BLOOD PRESSURE 11/06/22 [History Last Taken 11/06/22] oxycodone 10 mg tablet 10 mg PO TID BREAKTHROUGH PAIN 11/06/22 [History Last Taken 11/05/22] pantoprazole 40 mg tablet,delayed release 40 mg PO DAILY ACID REFLUX 11/06/22 [History Last Taken 11/05/22] tacrolimus 0.5 mg capsule, immediate-release 0.5 mg PO 0900,2100 LIVER TRANSPLANT 11/06/22 [History Last Taken 11/06/22] Allergy/AdvReac Type Severity Reaction Status Date / Time pravastatin [From Pravachol] Allergy Hives Verified 11/06/22 09:59 Ivcnmyu-CBR-NnG Reductase Allergy Hives Verified 11/06/22 09:59 Inhibitor [Bmecibo-Req-Gmj Reductase Inhibitor] vancomycin Allergy NEEDS Verified 11/06/22 09:59 FOLLOW-UP zolpidem tartrate Allergy Hives Verified 11/06/22 09:59 [From Ambien] everolimus AdvReac Swelling Verified 11/06/22 09:59 gabapentin AdvReac NEEDS Verified 11/06/22 09:59 FOLLOW-UP Family History Mother Heart disease Father Heart disease Surgical History H/O shoulder surgery History of cardioversion (02/02/21) History of hip surgery Liver transplant recipient Status post liver transplant (07/2017) Social History household members: spouse Smoking Status: Never smoker alcohol intake: former substance use type: does not use caffeine: No ROS Constitutional Constitutional: Reports as per HPI Eyes Eyes: Reports as per HPI ENT HEENT: Reports as per HPI Cardiovascular Cardiovascular: Reports nausea and other Details: Right upper extremity discomfort Respiratory/Chest Respiratory/Chest: Reports as per HPI Gastrointestinal Gastrointestinal: Reports nausea Genitourinary Genitourinary: Reports as per HPI Musculoskeletal Musculoskeletal: Reports as per HPI Integumentary Integumentary: Reports as per HPI Neurologic Neurologic: Reports confusion Physical Exam Const alert, oriented x3 and no apparent distress Orientation / Consciousness: awake HEENT normocephalic, head/scalp atraumatic and hearing grossly normal bilaterally Eyes PERRL, EOMs intact bilaterally, conjunctivae normal and no scleral icterus Neck full ROM, supple and no JVD Carotids: normal carotid upstroke Resp normal respiratory effort and clear to auscultation bilaterally Cardio regular rate, regular rhythm, S1 normal heart sound and S2 normal heart sound Cardio Narrative: Distant heart tones GI normal to inspection, nondistended, normoactive bowel sounds Extremity no pedal edema Skin no rashes or lesions noted Psych mental status grossly normal Risk Stratification Risk Stratification Applicable: Yes Age >/= 65: No >/= 3 CAD Risk Factors (HTN, HLD, DM, family hx of CAD, or current smoker): Yes Aspirin Use in the Past 7 Days: Yes Severe Angina (>/= episodes in 24 hours): No EKG ST Changes >/= 0.5mm: No Positive Cardiac Marker: Yes ANAM Risk Stratification Score: 3 ANAM % Risk: 13% Risk Objective Data Vital Signs: Vital Signs Temp Pulse Resp BP Pulse Ox O2 Del Method 97.1 F L 66 18 155/86 H 97 Room Air 11/06/22 13:00 11/06/22 13:00 11/06/22 13:00 11/06/22 13:00 11/06/22 13:00 11/06/22 13:00 Oxygen Delivery Method Room Air Weight: 333 lb 8.95 oz Body Mass Index (BMI) 47.7 Intake & Output: Intake and Output for Last 24 Hours 11/04/22 11/05/22 11/06/22 23:59 23:59 23:59 Intake Total 1000 / 1000 Balance 1000 / 1000 Lab / Micro Data Result Diagrams: 11/06/22 10:30 11/06/22 10:30 Labs: Laboratory Results - last 24 hr 11/06/22 10:26: Urine Color Yellow, Urine Clarity Clear, Urine pH 5.0, Ur Specific [place] 1.020, Urine Protein 15 H, Urine Glucose (UA) Normal, Urine Ketones 5 H, Urine Occult Blood 150 H, Urine Nitrite Negative, Urine Bilirubin Negative, Urine Urobilinogen Normal, Ur Leukocyte Esterase 25 H, Urine RBC 0-5 SEEN, Urine WBC 0-5 SEEN, Ur Squamous Epith Cells 5-10 SEEN, Uric Acid Crystals RARE, Urine Bacteria 0 SEEN, Hyaline Casts 25-50 SEEN, Urine Mucus 0 SEEN 11/06/22 10:30: WBC 18.2 H, RBC 4.57 L, Hgb 13.6, Hct 43.1, MCV 94.3 H, MCH 29.8, MCHC 31.6 L, RDW Std Deviation 57.2 H, RDW Coeff of Maciel 17.2 H, Plt Count 448, MPV 10.4, Immature Gran % (Auto) 1.800 H, Neut % (Auto) 77.2 H, Lymph % (Auto) 15.7 L, Miner % (Auto) 5.1, Eos % (Auto) 0.0, Baso % (Auto) 0.2, Absolute Neuts (auto) 14.1 H, Absolute Lymphs (auto) 2.85, Nucleated RBC % 0.3 11/06/22 10:30: Sodium 145, Potassium 3.6, Chloride 111 H, Carbon Dioxide 21.0, Anion Gap 13, BUN 43 H, Creatinine 2.68 H, Estim Creat Clear Calc 29.89, Est GFR (MDRD) Af Amer 31 L, Est GFR (MDRD) Non-Af 26 L, BUN/Creatinine Ratio 16.0, Glucose 196 H, Calcium 8.9, Total Bilirubin 0.80, AST 12 L, ALT 14 L, Alkaline Phosphatase 139 H, Troponin I High Sens 274 H*, Total Protein 6.6, Albumin 2.4 L, Globulin 4.2, Albumin/Globulin Ratio 0.6 L 11/06/22 10:30: Ammonia 39.0 H 11/06/22 10:30: Lactic Acid 5.2 H* 11/06/22 13:57: Troponin I High Sens 204 H* Micro: Microbiology 11/06/22 10:26 Nasal Secretion SARS-CoV-2 & FLU Antigen (Rapid) - Final Cardiology Labs/Tests 11/06/22 10:26: Urine Color Yellow, Urine Clarity Clear, Urine pH 5.0, Ur Specific [place] 1.020, Urine Protein 15 H, Urine Glucose (UA) Normal, Urine Ketones 5 H, Urine Occult Blood 150 H, Urine Nitrite Negative, Urine Bilirubin Negative, Urine Urobilinogen Normal, Ur Leukocyte Esterase 25 H, Urine RBC 0-5 SEEN, Urine WBC 0-5 SEEN 11/06/22 10:30: WBC 18.2 H, RBC 4.57 L, Hgb 13.6, Hct 43.1, MCV 94.3 H, MCH 29.8, MCHC 31.6 L, Plt Count 448, MPV 10.4, Immature Gran % (Auto) 1.800 H, Neut % (Auto) 77.2 H, Lymph % (Auto) 15.7 L, Miner % (Auto) 5.1, Eos % (Auto) 0.0, Baso % (Auto) 0.2, Absolute Neuts (auto) 14.1 H, Nucleated RBC % 0.3 11/06/22 10:30: Sodium 145, Potassium 3.6, Chloride 111 H, Carbon Dioxide 21.0, Anion Gap 13, BUN 43 H, Creatinine 2.68 H, Est GFR (MDRD) Af Amer 31 L, Est GFR (MDRD) Non-Af 26 L, BUN/Creatinine Ratio 16.0, Glucose 196 H, Calcium 8.9, Total Bilirubin 0.80 11/06/22 10:30: Lactic Acid 5.2 H* Rhythm: Sinus rhythm EKG: As noted above ECHO: 09-24-2022 Reason For Study: Afib/Flutter Procedure This was a limited 2D transthoracic echocardiogram. The study was technically limited. The study was technically difficult. Contrast injection was performed. Exam performed portable in patient room. Left Ventricle Normal left ventricle. Mild concentric left ventricular hypertrophy. Left ventricular systolic function is normal. The estimated ejection fraction is 55 %. No regional wall motion abnormalities noted. Right Ventricle Normal RV size. Normal systolic function. Great Vessels Normal aortic root. Pericardium/Pleural No pericardial effusion. Medication Diluted definity 4ml given slow IV push to enhance endocardial definition. MMode/2D Measurements & Calculations LVIDd: 5.1 cm ? IVSd: 1.2 cm ? LA dimension: 4.1 cm LVIDs: 3.2 cm ? LVPWd: 1.2 cm ? FS: 38.2 % Doppler Measurements & Calculations MV E max jovanna: 53.3 cm/sec ECHO/Echo Limited w/Contrast Interpretation Summary Normal left ventricle. Left ventricular systolic function is normal. The estimated ejection fraction is 55 %. Mild concentric left ventricular hypertrophy. ? ? Ordering Physician: Abdoul Orozco Referring Physician: Lance Bose Chi Performed By: Marcial Hair RCS ?
[2022-11-06] MEDS: Nitroglycerin Oint 1 INCH PACKET TD ×2 (15:50→22:32)
[2022-11-06 16:06] LABS: Lactic Acid 1.6 mmol/L (0.4-1.9)
--- NOTE | 2022-11-06 17:56 | CON.PCM.GI_ITS ---
HPI Consult Data Date of Consult: 11/08/22 HPI Narrative Reason for Consultation: Altered mental status HPI Narrative: ESTEFANIA MILLER, is a 61 M who presents with intermittent chest pain and also mental status. The patient states that this has been going on since last week, on Saturday, 7 days ago his symptoms started.? The following day, he thought he was in atrial fibrillation, was seen in the emergency department and evaluated and discharged because he was actually in normal sinus rhythm.? He returned to the emergency department 2 days ago on Saturday and had a complete work-up regarding mental status change.? He states that he is repeating himself and is more forgetful, and he does not feel right..? He has a past medical history of alpha-1 antitrypsin disease and and [place] resulting in cirrhosis status post orthotopic liver transplant in 2017. He had no opportunistic infections that he knows of. No history of CMV, EBV or duzcd-zcxehl-tyff disease. He is on tacrolimus and Bactrim prophylaxis. He also takes lactulose on a daily basis for a history hyperammonia anemia from unknown cause. He states that he feels strange and not himself.? His daughter, who is at the bedside, states that he will say something, does often fall asleep, and then wake up and not remember things.? He received a phone call from his primary care provider's office for test results, and his family states that they noticed that he had slurred speech.? However, it is much improved currently.? His other daughter states that his work-up was negative and they prefer to take him home.? He had a slightly elevated ammonia level at that time, but his states that he had 3 bowel movements since that, and he has been taking his lactulose. [facility] Medical History (HFpEF) heart failure with preserved ejection fraction Acidosis, lactic Acute hypotension Anemia of chronic disease Ascites Atherosclerotic heart disease of [place] coronary artery without angina pectoris Atrial fibrillation Atrial flutter with rapid ventricular response (02/02/21) Cellulitis Chronic renal failure, stage 3 (moderate) Cirrhosis Coronary artery disease Gout History of non-ST elevation myocardial infarction (NSTEMI) (12/29/20) Kidney disease Morbid obesity Multiple falls Nonsustained paroxysmal ventricular tachycardia (12/2020) Right hip pain Venous insufficiency Vertigo, central Home Medications ursodiol 250 mg tablet (PAT 250) 375 mg PO BID GALLSTONES 04/07/19 [History Last Taken 11/06/22] cyclobenzaprine 10 mg tablet 10 mg PO TID PRN MUSCLE SPASMS 06/19/22 [History Last Taken 2 Days Ago ~11/02/22] ondansetron 4 mg disintegrating tablet 4 mg PO Q8H PRN NAUSEA 06/19/22 [History Last Taken 07/20/22] sulfamethoxazole 400 mg-trimethoprim 80 mg tablet 1 tab PO DAILY LIVER TRANSPLANT 06/19/22 [History Last Taken 11/06/22] apixaban 5 mg tablet (Eliquis) 5 mg PO BID BLOOD THINNER 07/20/22 [History Last Taken 11/06/22] lactulose 20 gram/30 mL oral solution 30 ml PO BID CONSTIPATION 07/25/22 [History Last Taken 11/06/22] famotidine 20 mg tablet (Pepcid AC) 20 mg PO DAILY ACID REFLUX 10/03/22 [History Last Taken 11/06/22] allopurinol 300 mg tablet 300 mg PO DAILY GOUT 11/04/22 [History Last Taken 11/06/22] furosemide 40 mg tablet 40 mg PO DAILY FLUID 11/04/22 [History Last Taken 11/06/22] alprazolam 0.5 mg tablet 0.5 mg PO DAILY PRN ANXIETY 11/06/22 [History Last Taken 11/05/22] amiodarone 200 mg tablet 200 mg PO DAILY IRREGULAR HEARTBEAT 11/06/22 [History Last Taken 11/06/22] metoprolol tartrate 50 mg tablet 50 mg PO BID BLOOD PRESSURE 11/06/22 [History Last Taken 11/06/22] oxycodone 10 mg tablet 10 mg PO TID BREAKTHROUGH PAIN 11/06/22 [History Last Taken 11/05/22] pantoprazole 40 mg tablet,delayed release 40 mg PO DAILY ACID REFLUX 11/06/22 [History Last Taken 11/05/22] tacrolimus 0.5 mg capsule, immediate-release 0.5 mg PO 0900,2100 LIVER TRANSPLANT 11/06/22 [History Last Taken 11/06/22] amlodipine 5 mg tablet 5 mg PO DAILY #60 tabs 11/07/22 [Rx Last Taken Unknown] aspirin 81 mg tablet,delayed release 81 mg PO BREAKFAST #60 tabs 11/07/22 [Rx Last Taken Unknown] Allergy/AdvReac Type Severity Reaction Status Date / Time pravastatin [From Pravachol] Allergy Hives Verified 11/06/22 09:59 Kvjilqb-GHA-MhL Reductase Allergy Hives Verified 11/06/22 09:59 Inhibitor [Lnygcqp-Amz-Xnc Reductase Inhibitor] vancomycin Allergy NEEDS Verified 11/06/22 09:59 FOLLOW-UP zolpidem tartrate Allergy Hives Verified 11/06/22 09:59 [From Ambien] everolimus AdvReac Swelling Verified 11/06/22 09:59 gabapentin AdvReac NEEDS Verified 11/06/22 09:59 FOLLOW-UP Family History Mother Heart disease Father Heart disease Surgical History H/O shoulder surgery History of cardioversion (02/02/21) History of hip surgery Liver transplant recipient Status post liver transplant (07/2017) Social History household members: spouse Smoking Status: Never smoker alcohol intake: former substance use type: does not use caffeine: No ROS Constitutional Constitutional: Reports as per HPI Eyes Eyes: Reports as per HPI ENT HEENT: Reports as per HPI Cardiovascular Cardiovascular: Reports nausea and other Details: Right upper extremity discomfort Respiratory/Chest Respiratory/Chest: Reports as per HPI Gastrointestinal Gastrointestinal: Reports nausea Genitourinary Genitourinary: Reports as per HPI Musculoskeletal Musculoskeletal: Reports as per HPI Integumentary Integumentary: Reports as per HPI Neurologic Neurologic: Reports confusion Physical Exam Const alert, oriented x3 and no apparent distress Orientation / Consciousness: awake HEENT normocephalic, head/scalp atraumatic and hearing grossly normal bilaterally Eyes PERRL, EOMs intact bilaterally, conjunctivae normal and no scleral icterus Neck full ROM, supple and no JVD Carotids: normal carotid upstroke Resp normal respiratory effort and clear to auscultation bilaterally Cardio regular rate, regular rhythm, S1 normal heart sound and S2 normal heart sound Cardio Narrative: Distant heart tones GI normal to inspection, nondistended, normoactive bowel sounds Extremity no pedal edema Skin no rashes or lesions noted Psych mental status grossly normal Lab / Micro Data Result Diagrams: 11/07/22 04:38 11/07/22 04:38 Labs: Laboratory Results - last 24 hr 11/06/22 10:26: Urine Color Yellow, Urine Clarity Clear, Urine pH 5.0, Ur Specific [place] 1.020, Urine Protein 15 H, Urine Glucose (UA) Normal, Urine Ketones 5 H, Urine Occult Blood 150 H, Urine Nitrite Negative, Urine Bilirubin Negative, Urine Urobilinogen Normal, Ur Leukocyte Esterase 25 H, Urine RBC 0-5 SEEN, Urine WBC 0-5 SEEN, Ur Squamous Epith Cells 5-10 SEEN, Uric Acid Crystals RARE, Urine Bacteria 0 SEEN, Hyaline Casts 25-50 SEEN, Urine Mucus 0 SEEN 11/06/22 10:30: WBC 18.2 H, RBC 4.57 L, Hgb 13.6, Hct 43.1, MCV 94.3 H, MCH 29.8, MCHC 31.6 L, RDW Std Deviation 57.2 H, RDW Coeff of [place] 17.2 H, Plt Count 448, MPV 10.4, Immature Gran % (Auto) 1.800 H, Neut % (Auto) 77.2 H, Lymph % (Auto) 15.7 L, [place] % (Auto) 5.1, Eos % (Auto) 0.0, Baso % (Auto) 0.2, Absolute Neuts (auto) 14.1 H, Absolute Lymphs (auto) 2.85, Nucleated RBC % 0.3 11/06/22 10:30: Sodium 145, Potassium 3.6, Chloride 111 H, Carbon Dioxide 21.0, Anion Gap 13, BUN 43 H, Creatinine 2.68 H, Estim Creat Clear Calc 29.89, Est GFR (MDRD) Af Amer 31 L, Est GFR (MDRD) Non-Af 26 L, BUN/Creatinine Ratio 16.0, Glucose 196 H, Calcium 8.9, Total Bilirubin 0.80, AST 12 L, ALT 14 L, Alkaline Phosphatase 139 H, Troponin I High Sens 274 H*, Total Protein 6.6, Albumin 2.4 L , Globulin 4.2, Albumin/Globulin Ratio 0.6 L 11/06/22 10:30: Ammonia 39.0 H 11/06/22 10:30: Lactic Acid 5.2 H* 11/06/22 13:57: Troponin I High Sens 204 H* 11/06/22 15:16: Lactic Acid 1.6 Micro: Microbiology 11/06/22 10:26 Nasal Secretion SARS-CoV-2 & FLU Antigen (Rapid) - Final Radiology Impression Echocardiogram 11/06/22 13:10 Interpretation Summary The study was technically difficult. Contrast injection was performed. Based upon the 2D echocardiographic and contrast enhanced images obtained there appears to be grossly normal left ventricular size, wall motion, and systolic function. The estimated ejection fraction is 65 %. Ordering Physician: Andrew Cronin Performed By: Marcial Hair RCS Assessment & Plan Assessment/Plan (1) Lactic acidosis: (2) Chest pain: (3) History of liver transplant: PLAN: Plan Patient is a 61-year-old gentleman with multiple comorbidities including morbid obesity resulting in chronic kidney disease, fatty liver disease, alpha-1 antitrypsin deficiency (unknown genotype at this time) resulting in the need for liver transplant. He presented with weakness shortness of breath, altered menta l status and was discovered to have acute non-ST segment elevation [place]. 1. Elevated troponin ? acute non-STEMI he is currently being seen cardiology. As per the patient there is no plan to do at this time in 2 to chronic kidney disease stage III to stage IV. 3. Transient focal weakness-possibly secondary to Hyperammonemia as he has not been complaint with Lactulose. His ammonia has has improved since being in the hospital. He is to take lactulose 30 cc 3 times a day and recommend to start him on Xifaxan therapy 550 mg twice a day. If that is not attainable then I will recommend Flagyl 500 mg twice daily and possibly neomycin 500 mg once a day due to his kidney function. 5.? History of liver transplant ? In 2017 on account of NAFLD as well as alpha-1 antitrypsin deficiency.? Kitty nt is on Bactrim as well as tacrolimus did continue. ith other providers, nursing nursing and ancillary staff involved in patient's care documentation, 57 Minutes Charges/Coding Visit Charges Inpatient E&M: 40924 Init Hosp L3
--- NOTE | 2022-11-06 18:38 | PN_ITS ---
Objective Data Objective Data Vital Signs: Vital Signs Temp Pulse Resp BP Pulse Ox O2 Del Method 98.8 F 67 18 133/80 H 98 Room Air 11/06/22 18:00 11/06/22 18:00 11/06/22 18:00 11/06/22 18:00 11/06/22 18:00 11/06/22 18:00 Oxygen Delivery Method Room Air Weight: 333 lb 8.95 oz Body Mass Index (BMI) 47.7 Intake & Output: Intake and Output for Last 24 Hours 11/04/22 11/05/22 11/06/22 23:59 23:59 23:59 Intake Total 1000 / 1000 Balance 1000 / 1000 Lab / Micro Data Result Diagrams: 11/06/22 10:30 11/06/22 10:30 Labs: Laboratory Results - last 24 hr 11/06/22 10:26: Urine Color Yellow, Urine Clarity Clear, Urine pH 5.0, Ur Specific [place] 1.020, Urine Protein 15 H, Urine Glucose (UA) Normal, Urine Ketones 5 H, Urine Occult Blood 150 H, Urine Nitrite Negative, Urine Bilirubin Negative, Urine Urobilinogen Normal, Ur Leukocyte Esterase 25 H, Urine RBC 0-5 SEEN, Urine WBC 0-5 SEEN, Ur Squamous Epith Cells 5-10 SEEN, Uric Acid Crystals RARE, Urine Bacteria 0 SEEN, Hyaline Casts 25-50 SEEN, Urine Mucus 0 SEEN 11/06/22 10:30: WBC 18.2 H, RBC 4.57 L, Hgb 13.6, Hct 43.1, MCV 94.3 H, MCH 29.8, MCHC 31.6 L, RDW Std Deviation 57.2 H, RDW Coeff of [place] 17.2 H, Plt Count 448, MPV 10.4, Immature Gran % (Auto) 1.800 H, Neut % (Auto) 77.2 H, Lymph % (Auto) 15.7 L, [place] % (Auto) 5.1, Eos % (Auto) 0.0, Baso % (Auto) 0.2, Absolute Neuts (auto) 14.1 H, Absolute Lymphs (auto) 2.85, Nucleated RBC % 0.3 11/06/22 10:30: Sodium 145, Potassium 3.6, Chloride 111 H, Carbon Dioxide 21.0, Anion Gap 13, BUN 43 H, Creatinine 2.68 H, Estim Creat Clear Calc 29.89, Est GFR (MDRD) Af Amer 31 L, Est GFR (MDRD) Non-Af 26 L, BUN/Creatinine Ratio 16.0, Glucose 196 H, Calcium 8.9, Total Bilirubin 0.80, AST 12 L, ALT 14 L, Alkaline Phosphatase 139 H, Troponin I High Sens 274 H*, Total Protein 6.6, Albumin 2.4 L , Globulin 4.2, Albumin/Globulin Ratio 0.6 L 11/06/22 10:30: Ammonia 39.0 H 11/06/22 10:30: Lactic Acid 5.2 H* 11/06/22 13:57: Troponin I High Sens 204 H* 11/06/22 15:16: Lactic Acid 1.6 Micro: Microbiology 11/06/22 10:26 Nasal Secretion SARS-CoV-2 & FLU Antigen (Rapid) - Final Radiography Diagnostic Testing: Radiology Impression Echocardiogram 11/06/22 13:10 Interpretation Summary The study was technically difficult. Contrast injection was performed. Based upon the 2D echocardiographic and contrast enhanced images obtained there appears to be grossly normal left ventricular size, wall motion, and systolic function. The estimated ejection fraction is 65 %. Ordering Physician: Andrew Cronin Performed By: Marcial Hair RCS Assessment & Plan Assessment/Plan (1) History of liver transplant: PLAN: .At this time he is not showing any signs of graft rejection. He does have a significant the elevated white blood cell count for unknown reason. It can be a concern in a patient that is on immunosuppression. However he is on prophylaxis with Bactrim and he is not on steroid therapy at this time. I would recommend to check a tacrolimus level which I sent off in the setting of acute kidney injury with CKD. I would recommend to get a ultrasound with Dopplers to evaluate his transplanted graft. He had a echocardiogram and it does not show any signs of tricuspid regurgitation, right-sided heart failure or pulm hyp ertension which would expose him to hepatic congestion. His coagulation studies and liver function test seem to be at baseline. Also his L lactic acidosis seems to have improved with IV fluids which is a very good sign. Late in the post-transplant period, recipients are at risk for typical commu nity-acquired infections such as?community acquired pneumonia and influenza or complications from end-organ disease if they have allograft dysfunction. Less commonare opportunistic infections such as aspergillosis, cryptococcosis, and PJP. (2) Increased ammonia level: PLAN: Hyperammonemia not likely secondary to the common liver disease. It could be secondary to recent non-ST segment elevation [place] but is likely secondary to acute kidney injury in the setting of CKD. He is currently being seen by cardiology. Continue lactulose therapy. I would not institute neomycin, Flagyl or more lactulose at this time. Charges/Coding Visit Charges Inpatient E&M: 47640 Init Hosp L3
[2022-11-06 19:59] LABS: Troponin-I HS 145 pg/mL (3.0-78.0)
[2022-11-06] MEDS: oxyCODONE 5 MG Tablet 10 MG PO (21:09)
[2022-11-06] MEDS: ALPRAZolam 0.5 MG Tablet PO (21:09)
[2022-11-06] MEDS: Tacrolimus 0.5 MG Capsule PO (22:31)
[2022-11-06] MEDS: Lactulose 20 GM/30 ML PHA UDC PO (22:31)
[2022-11-06] MEDS: APIXABAN 5 MG TABLET PO (22:31)
[2022-11-06] MEDS: Ursodiol 250 MG Tablet 375 MG PO (22:33)
[2022-11-06] MEDS: Metoprolol Tartrate 50 MG Tablet PO (22:33)
--- NOTE | 2022-11-07 00:35 | NURSING ---
nitro patch removed in preparation for AM stress test.
[2022-11-07 02:00] VITALS: BP 138/83; PULSE 57; RESP 20; TEMP 36.9; O2SAT 97
[2022-11-07 05:47] LABS: Absolute Lymphocyte Count 1.66 X10^3/uL (0.83-4.51); Absolute Neutrophil Count 11.8 X10^3/uL (2.0-7.7); Basophil# 0.02 X10^3/uL; Basophil% 0.1 % (0-1); Eosinophil# 0.01 X10^3/uL; Eosinophils% 0.1 % (0-5); Hematocrit 37.8 % (40-54); Lymphocyte # 1.66 X10^3/ul (0.83-4.51); Lymphocyte % 11.4 % (19-41); Mean Corp Hgb Conc 31.7 g/dL (32-36); Mean Corpuscular Hgb 29.6 pg (27.0-32.0); Mean Corpuscular Volume 93.3 fL (80-94); Mean Platelet Vol. 10.2 fl (6.2-12.0); Monocyte# 0.91 X10^3/uL; Monocyte% 6.3 % (0-10); NRBC Flagged by Analyzer 0 % (0-5); Neutrophil # 11.76 X10^3/uL (2.7-7.7); Neutrophil % 80.9 % (47-70); Platelet Count 320 K/mm3 (150-450); RBC Distribution Width CV 17.2 % (11.6-14.6); RBC Distribution Width SD 57.9 fl (35.1-43.9); Red Blood Count 4.05 M/mm3 (4.6-6.2); White Blood Count 14.5 K/mm3 (4.4-11.0)
--- NOTE | 2022-11-07 05:55 | EKG12_ITS ---
Test Reason : Blood Pressure : / mmHG Vent. Rate : 061 BPM Atrial Rate : 061 BPM P-R Int : 184 ms QRS Dur : 098 ms QT Int : 454 ms P-R-T Axes : -10 -28 039 degrees QTc Int : 457 ms Normal sinus rhythm Normal ECG Confirmed by CARLA SHIPMAN, SUGAR ([id number]), visual effects editor JULIO CÉSAR SOLORIO ([id number]) on 11/08/2022 9:11:38 AM Referred By: CARLA Confirmed By:SUGAR AGUIRRE MD
[2022-11-07 06:00] VITALS: BP 144/78; PULSE 55; RESP 20; TEMP 37.4; O2SAT 97
[2022-11-07 06:18] LABS: AST(SGOT) 9 U/L (15-37); Alanine Aminotransfer ALT/SGPT 12 U/L (16-61); Alkaline Phosphatase 116 U/L (45-117); Anion Gap 10 (5-15); BUN 47 mg/dL (7-18); BUN/Creat Ratio 17.9 RATIO (10-20); Bilirubin, Direct 0.19 mg/dL (0.00-0.30); Calcium,Total 8.4 mg/dL (8.5-10.1); Chloride 113 mmol/L (98-107); Cholesterol 197 mg/dL (200); Creatinine, Serum 2.62 mg/dL (0.70-1.30); EST Glomerular Filtration Rate 27 mL/min (>60); Est Glom Filt Rate - Afr Amer 32 mL/min (>60); Estimated Creatinine Clearance 30.57 ml/min; Globulin 3.7 g/dL (2.2-4.2); Glucose 154 mg/dL (74-106); High Density Lipoprotein 34 mg/dL; Magnesium 1.9 mg/dL (1.6-2.6); Potassium 3.8 mmol/L (3.5-5.1); Protein, Total 5.7 g/dL (6.4-8.2); Sodium Level 144 mmol/L (136-145); Thyroid Stim Hormone (TSH) 1.74 uIU/mL (0.358-3.74); Triglycerides 83 mg/dL; Very Low Density Lipoprotein 17 mg/dL (5-40)
[2022-11-07] MEDS: Aspirin E.C. 81 MG Tablet PO (06:57)
[2022-11-07] MEDS: oxyCODONE 5 MG Tablet 10 MG PO (06:57)
[2022-11-07 07:20] VITALS: O2SAT 95
--- NOTE | 2022-11-07 09:55 | PN.HOSP_ITS ---
Reason for Visit Reason for Visit: Diagnoses Acidosis, unspecified (11/06/22) Essential (primary) hypertension (11/06/22) Atherosclerotic heart disease of [place] coronary artery without angina pectoris (11/06/22) Paroxysmal atrial fibrillation (11/06/22) Chronic kidney disease, unspecified (11/06/22) Chest pain, unspecified (11/06/22) Altered mental status, unspecified (11/06/22) Other specified abnormalities of plasma proteins (11/06/22) Liver transplant status (11/06/22) Coronary angioplasty status (11/06/22) Subjective Subjective Patient seen cardiac enzymes trending down. Patient could not undergo MRI due to claustrophobia as well as size. Was also seen in consultation by cardiology recommendation was for patient to undergo a nuclear stress test again he did not fit in the machine. Objective Data Objective Data Vital Signs: Vital Signs Temp Pulse Resp BP Pulse Ox O2 Del Method 99.4 F H 55 L 20 H 144/78 H 95 Room Air 11/07/22 06:00 11/07/22 06:00 11/07/22 06:00 11/07/22 06:00 11/07/22 07:20 11/07/22 07:20 Oxygen Delivery Method Room Air Weight: 151.3 kg Body Mass Index (BMI) 47.7 Intake & Output: Intake and Output for Last 24 Hours 11/05/22 11/06/22 11/07/22 23:59 23:59 23:59 Intake Total 1950 / 2150 200 / 200 Output Total 150 / 150 Balance 1949 / 1999 50 / 50 Lab / Micro Data Result Diagrams: 11/07/22 04:38 11/07/22 04:38 Labs: Laboratory Results - last 24 hr 11/06/22 10:26: Urine Color Yellow, Urine Clarity Clear, Urine pH 5.0, Ur Specific [place] 1.020, Urine Protein 15 H, Urine Glucose (UA) Normal, Urine Ketones 5 H, Urine Occult Blood 150 H, Urine Nitrite Negative, Urine Bilirubin Negative, Urine Urobilinogen Normal, Ur Leukocyte Esterase 25 H, Urine RBC 0-5 SEEN, Urine WBC 0-5 SEEN, Ur Squamous Epith Cells 5-10 SEEN, Uric Acid Crystals RARE, Urine Bacteria 0 SEEN, Hyaline Casts 25-50 SEEN, Urine Mucus 0 SEEN 11/06/22 10:30: WBC 18.2 H, RBC 4.57 L, Hgb 13.6, Hct 43.1, MCV 94.3 H, MCH 29.8, MCHC 31.6 L, RDW Std Deviation 57.2 H, RDW Coeff of [place]iel 17.2 H, Plt Count 448, MPV 10.4, Immature Gran % (Auto) 1.800 H, Neut % (Auto) 77.2 H, Lymph % (Auto) 15.7 L, [place] % (Auto) 5.1, Eos % (Auto) 0.0, Baso % (Auto) 0.2, Absolute Neuts (auto) 14.1 H, Absolute Lymphs (auto) 2.85, Nucleated RBC % 0.3 11/06/22 10:30: Sodium 145, Potassium 3.6, Chloride 111 H, Carbon Dioxide 21.0, Anion Gap 13, BUN 43 H, Creatinine 2.68 H, Estim Creat Clear Calc 29.89, Est GFR (MDRD) Af Amer 31 L, Est GFR (MDRD) Non-Af 26 L, BUN/Creatinine Ratio 16.0, Glucose 196 H, Calcium 8.9, Total Bilirubin 0.80, AST 12 L, ALT 14 L, Alkaline Phosphatase 139 H, Troponin I High Sens 274 H*, Total Protein 6.6, Albumin 2.4 L , Globulin 4.2, Albumin/Globulin Ratio 0.6 L 11/06/22 10:30: Ammonia 39.0 H 11/06/22 10:30: Lactic Acid 5.2 H* 11/06/22 13:57: Troponin I High Sens 204 H* 11/06/22 15:16: Lactic Acid 1.6 11/06/22 19:05: Troponin I High Sens 145 H* 11/07/22 04:38: WBC 14.5 H, RBC 4.05 L, Hgb 12.0 L, Hct 37.8 L, MCV 93.3, MCH 29.6, MCHC 31.7 L, RDW Std Deviation 57.9 H, RDW Coeff of [place] 17.2 H, Plt Count 320, MPV 10.2, Immature Gran % (Auto) 1.200 H, Neut % (Auto) 80.9 H, Lymph % (Auto) 11.4 L, [place] % (Auto) 6.3, Eos % (Auto) 0.1, Baso % (Auto) 0.1, Absolute Neuts (auto) 11.8 H, Absolute Lymphs (auto) 1.66, Nucleated RBC % 0 11/07/22 04:38: Sodium 144, Potassium 3.8, Chloride 113 H, Carbon Dioxide 21.0, Anion Gap 10, BUN 47 H, Creatinine 2.62 H, Estim Creat Clear Calc 30.57, Est GFR (MDRD) Af Amer 32 L, Est GFR (MDRD) Non-Af 27 L, BUN/Creatinine Ratio 17.9, Glucose 154 H, Calcium 8.4 L, Magnesium 1.9, Total Bilirubin 0.60, Direct Bilirubin 0.19, AST 9 L, ALT 12 L, Alkaline Phosphatase 116, Total Protein 5.7 L , Albumin 2.0 L, Globulin 3.7, Triglycerides 83, Cholesterol 197, LDL Cholesterol 146 H, VLDL Cholesterol 17, HDL Cholesterol 34 L, TSH 1.74 Micro: Microbiology 11/06/22 10:26 Nasal Secretion SARS-CoV-2 & FLU Antigen (Rapid) - Final Radiography Diagnostic Testing: Radiology Impression Echocardiogram 11/06/22 13:10 Interpretation Summary The study was technically difficult. Contrast injection was performed. Based upon the 2D echocardiographic and contrast enhanced images obtained there appears to be grossly normal left ventricular size, wall motion, and systolic function. The estimated ejection fraction is 65 %. Ordering Physician: Andrew Cronin Performed By: Marcial Hair RCS Physical Exam Narrative GENERAL: cooperative HEENT: Atraumatic; normocephalic EYES; Anicteric, Normal Conjunctiva NECK; supple, normal thyroid, RESPIRATORY: Diminished to auscultation CARDIOVASCULAR: Regular S1 S2, GI: soft, normoactive bowel sounds, : No Renal angle tenderness; EXTREMITIES: No edema, no clubbing, MUSCULOSKELETAL: no muscle wasting NEURO: Awake; no lateralizing signs. SKIN: No Rash PSYCH; Flat affect Assessment & Plan Assessment/Plan (1) Lactic acidosis: (2) Chest pain: PLAN: Plan Patient is a 61-year-old gentleman with multiple comorbidities including liver transplant on account of nonalcoholic fatty liver disease as well as alpha-1 antitrypsin deficiency presented to the emergency department with generalized weakness, right arm pain and elevated troponin 1. Elevated troponin ? Consistent with acute non-STEMI ? Patient has history of coronary disease with previous stent placement. Patient has been admitted to a monitored bed, treatment initiated per protocol with consultation placed to cardiology. As part of patient subsequent management ordered serial cardiac enzymes and 2D echo ? 11/07/2022; nuclear stress test ordered could not be performed in view of patient's size. Awaiting recommendations from cardiology 2. Paroxysmal A-fib ? Rate controlled on amiodarone and is on systemic anticoagulation with apixaban did continue 3. Transient focal weakness ? Ordered MRI of the brain to rule out acute CVA ? 11/07/2022 patient did not fit in MRI machine. Plan is to repeat head CT [address] 4. Lactic acidosis ? There is no evidence of infection at this point do suspect hypoperfusion from patient cardiac ischemic event 5.? History of liver transplant ? In 2017 on account of NAFLD as well as alpha-1 antitrypsin deficiency.? Patient is on Bactrim as well as tacrolimus did continue. Patient did request consultation with Dr. Bales with GI consult placed 6.? Chronic kidney disease stage IV ? Kidney function at baseline 7.? Acute on chronic congestive heart failure with preserved ejection fraction -patient is on diuretics did continue 8.? Class III obesity with BMI of 51 ? Weight loss advised 9.? Hypertension - Blood pressure controlled, home medications continued with dose adjustment as needed 10.? DVT prophylaxis ? Patient is on Eliquis Time spent in the patient's overall evaluation,decision-making process, review of diagnostic data, adjustment of management, discussion with other providers, nursing nursing and ancillary staff involved in patient's care documentation, 57 Minutes Charges/Coding Visit Charges Inpatient E&M: 95652 Subs Hosp L3
[2022-11-07 10:26] VITALS: BP 144/79; PULSE 58; RESP 16; TEMP 36.9; O2SAT 96
[2022-11-07] MEDS: Smz/Tmp Ds Tablet 0.5 TABLET PO (10:31)
[2022-11-07] MEDS: Lactulose 20 GM/30 ML PHA UDC PO ×2 (10:31→13:11)
[2022-11-07] MEDS: Tacrolimus 0.5 MG Capsule PO (10:31)
[2022-11-07] MEDS: Pantoprazole Sodium 40 MG Tablet PO (10:31)
[2022-11-07 10:32] VITALS: PULSE 61
[2022-11-07] MEDS: Allopurinol 300 MG Tablet PO (10:32)
[2022-11-07] MEDS: Furosemide 40 MG Tablet PO (10:32)
[2022-11-07] MEDS: Metoprolol Tartrate 50 MG Tablet PO (10:32)
[2022-11-07] MEDS: Amiodarone 200 MG Tablet PO (10:32)
[2022-11-07] MEDS: Ursodiol 250 MG Tablet 375 MG PO (10:33)
--- NOTE | 2022-11-07 11:52 | CT_ITS ---
STUDY: CT BRAIN WITHOUT CONTRAST REASON FOR EXAM: Male, 61 years old. Mental status change RADIATION DOSAGE (If Supplied By Facility): CTDIvol = ( 44.99 ) mGy, DLP = ( 846.73 ) mGycm TECHNIQUE: Transaxial CT imaging of the brain was performed without administration of intravenous contrast material. Individualized dose optimization techniques were used for this CT. COMPARISON: 11/04/2022 FINDINGS: Normal soft tissue structures. Normal calvarium. Normal size ventricles and extra-axial spaces for the patient''s age. Normal white matter tracts of the cerebral hemispheres. Normal basal ganglia and thalami. Normal brainstem. Normal cerebellum. There is no intracranial hemorrhage. There are no findings of an acute ischemic infarction. Normal visualized paranasal sinuses. CT/Brain/Head without Contrast IMPRESSION: Chronic involutional changes of the brain. No acute hemorrhage, no interval change Electronically Signed: Balaji Zaman MD at 13:27 EST ,
--- NOTE | 2022-11-07 11:57 | PCM.PN.CARD ---
Subjective Subjective Per patient, he had shoulder discomfort on Saturday. He describes this as his angina equivalent. No recurrence since. Presently only complaining of slurred speech and generalized malaise and lethargy. Objective Data Vital Signs: Vital Signs Temp Pulse Resp BP Pulse Ox O2 Del Method 98.5 F 61 16 144/79 H 96 Room Air 11/07/22 10:26 11/07/22 10:32 11/07/22 10:26 11/07/22 10:26 11/07/22 10:26 11/07/22 10:26 Oxygen Delivery Method Room Air Weight: 333 lb 8.95 oz Body Mass Index (BMI) 47.7 Intake & Output: Intake and Output for Last 24 Hours 11/05/22 11/06/22 11/07/22 23:59 23:59 23:59 Intake Total 1950 / 2150 200 / 200 Output Total 150 / 150 Balance 1949 50 / 50 Lab / Micro Data Attestation: I reviewed the patient's lab results. Result Diagrams: 11/07/22 04:38 11/07/22 04:38 Labs: Laboratory Results - last 24 hr 11/06/22 13:57: Troponin I High Sens 204 H* 11/06/22 15:16: Lactic Acid 1.6 11/06/22 19:05: Troponin I High Sens 145 H* 11/07/22 04:38: WBC 14.5 H, RBC 4.05 L, Hgb 12.0 L, Hct 37.8 L, MCV 93.3, MCH 29.6, MCHC 31.7 L, RDW Std Deviation 57.9 H, RDW Coeff of Maciel 17.2 H, Plt Count 320, MPV 10.2, Immature Gran % (Auto) 1.200 H, Neut % (Auto) 80.9 H, Lymph % (Auto) 11.4 L, [place] % (Auto) 6.3, Eos % (Auto) 0.1, Baso % (Auto) 0.1, Absolute Neuts (auto) 11.8 H, Absolute Lymphs (auto) 1.66, Nucleated RBC % 0 11/07/22 04:38: Sodium 144, Potassium 3.8, Chloride 113 H, Carbon Dioxide 21.0, Anion Gap 10, BUN 47 H, Creatinine 2.62 H, Estim Creat Clear Calc 30.57, Est GFR (MDRD) Af Amer 32 L, Est GFR (MDRD) Non-Af 27 L, BUN/Creatinine Ratio 17.9, Glucose 154 H, Calcium 8.4 L, Magnesium 1.9, Total Bilirubin 0.60, Direct Bilirubin 0.19, AST 9 L, ALT 12 L, Alkaline Phosphatase 116, Total Protein 5.7 L, Albumin 2.0 L, Globulin 3.7, Triglycerides 83, Cholesterol 197, LDL Cholesterol 146 H, VLDL Cholesterol 17, HDL Cholesterol 34 L, TSH 1.74 Micro: Microbiology 11/06/22 10:26 Nasal Secretion SARS-CoV-2 & FLU Antigen (Rapid) - Final Cardiology Labs/Tests 11/06/22 15:16: Lactic Acid 1.6 11/07/22 04:38: WBC 14.5 H, RBC 4.05 L, Hgb 12.0 L, Hct 37.8 L, MCV 93.3, MCH 29.6, MCHC 31.7 L, Plt Count 320, MPV 10.2, Immature Gran % (Auto) 1.200 H, Neut % (Auto) 80.9 H, Lymph % (Auto) 11.4 L, [place] % (Auto) 6.3, Eos % (Auto) 0.1, Baso % (Auto) 0.1, Absolute Neuts (auto) 11.8 H, Nucleated RBC % 0 11/07/22 04:38: Sodium 144, Potassium 3.8, Chloride 113 H, Carbon Dioxide 21.0, Anion Gap 10, BUN 47 H, Creatinine 2.62 H, Est GFR (MDRD) Af Amer 32 L, Est GFR (MDRD) Non-Af 27 L, BUN/Creatinine Ratio 17.9, Glucose 154 H, Calcium 8.4 L, Magnesium 1.9, Total Bilirubin 0.60, Direct Bilirubin 0.19, Triglycerides 83, Cholesterol 197, LDL Cholesterol 146 H, VLDL Cholesterol 17, HDL Cholesterol 34 L Rhythm: EKG: ECHO: Stress Test: Cardiac Cath: PCI: CT Surgery: Holter monitor: EPS: PPM: CXR: Chest CT Scan: Radiography Diagnostic Testing: Radiology Impression Echocardiogram 11/06/22 13:10 Interpretation Summary The study was technically difficult. Contrast injection was performed. Based upon the 2D echocardiographic and contrast enhanced images obtained there appears to be grossly normal left ventricular size, wall motion, and systolic function. The estimated ejection fraction is 65 %. Ordering Physician: Andrew Cronin Performed By: Marcial Hair RCS Physical Exam Const alert, oriented x3 and no apparent distress Orientation / Consciousness: awake HEENT normocephalic, head/scalp atraumatic and hearing grossly normal bilaterally Neck full ROM and supple Resp normal respiratory effort Cardio regular rate and regular rhythm Extremity no pedal edema Psych mental status grossly normal Assessment & Plan Assessment/Plan (1) NSTEMI (non-ST elevated myocardial infarction): PLAN: Type I versus type II. Normal LV systolic function. Patient was scheduled for a pharmacological stress test today however he could not fit in the scanner. Discussed with patient and his daughter. Options discussed. Coronary angiography discussed. Risk of contrast-induced nephropathy in view of his baseline renal insufficiency discussed. Patient does not want to take the risk. It was agreed to continue treating him medically. Add enteric-coated aspirin 81 mg daily. Can continue satish and add amlodipine. (2) CAD (coronary artery disease): PLAN: See #1 above. (3) Chronic renal insufficiency: PLAN: Monitor. Consider referral to nephrology. (4) History of liver transplant: PLAN: As per GI. (5) Malaise and fatigue: PLAN: As per internal medicine/GI.
[2022-11-07] MEDS: amLODIPine 5 MG Tablet PO (13:11)
[2022-11-07] MEDS: APIXABAN 5 MG TABLET PO (13:12)
--- NOTE | 2022-11-07 13:39 | DS.PCM_ITS ---
Providers Date of Admission: 11/06/22 Date of Discharge: 11/07/22 Primary Care Physician: Dr. Lance Bose MD Consultations 11/06/22 13:10 Consult: Cardiology Routine Consulting Provider: Kevin Bourgeois Reason for Consult: Chest Pain EMERGENT Consult: No Notified: Yes Date Notified: 11/06/22 Time Notified: 12:34 Method of Notification: ED Physician Initiated Consult: Gastroenterology Routine Consulting Provider: [facility] Reason for Consult: Impaired liver function, history of liver transplant EMERGENT Consult: No Notified: Yes Date Notified: 11/06/22 Time Notified: 13:22 Method of Notification: Text Reason For Visit: ELEVATED TROPONIN,LACTIC ACIDOSIS,RENAL INSUFF Diagnosis Discharge Diagnosis (1) NSTEMI (non-ST elevated myocardial infarction): Status: Acute Code(s): I21.4 - Non-ST elevation (NSTEMI) myocardial infarction (2) CAD (coronary artery disease): Status: Acute Code(s): I25.10 - Atherosclerotic heart disease of [place] coronary artery without angina pectoris (3) Chronic renal insufficiency: Status: Chronic Code(s): N18.9 - Chronic kidney disease, unspecified (4) History of liver transplant: Status: Acute Code(s): Z94.4 - Liver transplant status (5) Malaise and fatigue: Status: Acute Code(s): R53.81 - Other malaise; R53.83 - Other fatigue Plan Patient is a 61-year-old gentleman with multiple comorbidities including liver transplant on account of nonalcoholic fatty liver disease as well as alpha-1 antitrypsin deficiency presented to the emergency department with generalized weakness, right arm pain and elevated troponin 1. Elevated troponin ? Consistent with acute non-STEMI ? Patient has history of coronary disease with previous stent placement. Patient has been admitted to a monitored bed, treatment initiated per protocol with consultation placed to cardiology. As part of patient subsequent management ordered serial cardiac enzymes and 2D echo ? 11/07/2022; nuclear stress test ordered could not be performed in view of patient's size. Awaiting recommendations from cardiology ? Case was discussed with Dr. Thomas recommended for optimization of medical therapy aspirin and amlodipine added to patient therapy. Patient could not be discharged on atorvastatin due to allergies to statins. 2. Paroxysmal A-fib ? Rate controlled on amiodarone and is on systemic anticoagulation with apixaban did continue 3. Transient focal weakness ? Ordered MRI of the brain to rule out acute CVA ? 11/07/2022 patient did not fit in MRI machine. Plan is to repeat head CT [address] 4. Lactic acidosis ? There is no evidence of infection at this point do suspect hypoperfusion from patient cardiac ischemic event 5.? History of liver transplant ? In 2017 on account of NAFLD as well as alpha-1 antitrypsin deficiency.? Patient is on Bactrim as well as tacrolimus did continue. Patient did request consultation with Dr. Bales with GI consult placed ? Patient has an appointment with Dr. Bales as outpatient instructed to keep the appointment 6.? Chronic kidney disease stage IV ? Kidney function at baseline ? Patient to follow-up with Dr. Monae as outpatient for subsequent management 7.? Acute on chronic congestive heart failure with preserved ejection fraction -patient is on diuretics did continue 8.? Class III obesity with BMI of 51 ? Weight loss advised 9.? Hypertension - Blood pressure controlled, home medications continued with dose adjustment as needed 10.? DVT prophylaxis ? Patient is on Eliquis Time spent in the patient's overall evaluation,decision-making process, review of diagnostic data, adjustment of management, discussion with other providers, nursing nursing and ancillary staff involved in patient's care documentation, 40 minutes Medications at Discharge Home Medications ursodiol 250 mg tablet (PAT 250) 375 mg PO BID GALLSTONES 04/07/19 cyclobenzaprine 10 mg tablet 10 mg PO TID PRN MUSCLE SPASMS 06/19/22 ondansetron 4 mg disintegrating tablet 4 mg PO Q8H PRN NAUSEA 06/19/22 sulfamethoxazole 400 mg-trimethoprim 80 mg tablet 1 tab PO DAILY LIVER TRANSPLANT 06/19/22 apixaban 5 mg tablet (Eliquis) 5 mg PO BID BLOOD THINNER 07/20/22 lactulose 20 gram/30 mL oral solution 30 ml PO BID CONSTIPATION 07/25/22 famotidine 20 mg tablet (Pepcid AC) 20 mg PO DAILY ACID REFLUX 10/03/22 allopurinol 300 mg tablet 300 mg PO DAILY GOUT 11/04/22 furosemide 40 mg tablet 40 mg PO DAILY FLUID 11/04/22 alprazolam 0.5 mg tablet 0.5 mg PO DAILY PRN ANXIETY 11/06/22 amiodarone 200 mg tablet 200 mg PO DAILY IRREGULAR HEARTBEAT 11/06/22 metoprolol tartrate 50 mg tablet 50 mg PO BID BLOOD PRESSURE 11/06/22 oxycodone 10 mg tablet 10 mg PO TID BREAKTHROUGH PAIN 11/06/22 pantoprazole 40 mg tablet,delayed release 40 mg PO DAILY ACID REFLUX 11/06/22 tacrolimus 0.5 mg capsule, immediate-release 0.5 mg PO 0900,2100 LIVER TRANSPLANT 11/06/22 amlodipine 5 mg tablet 5 mg PO DAILY #60 tabs 11/07/22 aspirin 81 mg tablet,delayed release 81 mg PO BREAKFAST #60 tabs 11/07/22 Hospital Course Summary of Care Provided Minutes Spent on Discharge: 40 Physical Exam Narrative GENERAL: cooperative HEENT: Atraumatic; normocephalic EYES; Anicteric, Normal Conjunctiva NECK; supple, normal thyroid, RESPIRATORY: Diminished to auscultation CARDIOVASCULAR: Regular S1 S2, GI: soft, normoactive bowel sounds, : No Renal angle tenderness; EXTREMITIES: No edema, no clubbing, MUSCULOSKELETAL: no muscle wasting NEURO: Awake; no lateralizing signs. SKIN: No Rash PSYCH; Flat affect Weight / BMI Weight Weight: 151.3 kg Body Mass Index (BMI) 47.7 ABG / Lab / Microbiology Data Result Diagrams: 11/07/22 04:38 11/07/22 04:38 Laboratory: Laboratory Results - last 24 hr 11/06/22 13:57: Troponin I High Sens 204 H* 11/06/22 15:16: Lactic Acid 1.6 11/06/22 19:05: Troponin I High Sens 145 H* 11/07/22 04:38: WBC 14.5 H, RBC 4.05 L, Hgb 12.0 L, Hct 37.8 L, MCV 93.3, MCH 29.6, MCHC 31.7 L, RDW Std Deviation 57.9 H, RDW Coeff of Maciel 17.2 H, Plt Count 320, MPV 10.2, Immature Gran % (Auto) 1.200 H, Neut % (Auto) 80.9 H, Lymph % (Auto) 11.4 L, [place] % (Auto) 6.3, Eos % (Auto) 0.1, Baso % (Auto) 0.1, Absolute Neuts (auto) 11.8 H, Absolute Lymphs (auto) 1.66, Nucleated RBC % 0 11/07/22 04:38: Sodium 144, Potassium 3.8, Chloride 113 H, Carbon Dioxide 21.0, Anion Gap 10, BUN 47 H, Creatinine 2.62 H, Estim Creat Clear Calc 30.57, Est GFR (MDRD) Af Amer 32 L, Est GFR (MDRD) Non-Af 27 L, BUN/Creatinine Ratio 17.9, Glucose 154 H, Calcium 8.4 L, Magnesium 1.9, Total Bilirubin 0.60, Direct Bilirubin 0.19, AST 9 L, ALT 12 L, Alkaline Phosphatase 116, Total Protein 5.7 L , Albumin 2.0 L, Globulin 3.7, Triglycerides 83, Cholesterol 197, LDL Cholestero l 146 H, VLDL Cholesterol 17, HDL Cholesterol 34 L, TSH 1.74 Microbiology: Microbiology 11/06/22 10:26 Nasal Secretion SARS-CoV-2 & FLU Antigen (Rapid) - Final Radiography Diagnostic Testing: Radiology Impression Carotid Duplex 11/06/22 12:39 Interpretation Summary Minimal smooth plaque at the proximal right internal carotid artery with less than 50% stenosis Less than 50% stenosis right external carotid artery Minimal smooth plaque of the proximal left internal carotid artery with less than 50% stenosis Less than 50% stenosis left external carotid artery Patent and antegrade vertebral arteries bilaterally Ordering Physician: Andrew Cronin Referring Physician: Lance Bose Chi Performed By: Rolanda Harper RVT Echocardiogram 11/06/22 13:10 Interpretation Summary The study was technically difficult. Contrast injection was performed. Based upon the 2D echocardiographic and contrast enhanced images obtained there appears to be grossly normal left ventricular size, wall motion, and systolic function. The estimated ejection fraction is 65 %. Ordering Physician: Andrew Cronin Performed By: Marcial Hair RCS Brain CT 11/07/22 11:52 IMPRESSION: Chronic involutional changes of the brain. No acute hemorrhage, no interval change Electronically Signed: Balaji Zaman MD at 13:27 EST , D/C Instructions Discharge Diet: No restrictions Discharge Activity: Return to Normal Activity Call your doctor if you observe: Fever of 101 or Higher, Shortness of breath, Fainting spells and Chest pain Meaningful Use Info Meaningful Use Diagnoses (Choose all that apply): AMI AMI/Post PCI/Angioplasty Aspirin given w/in 24hrs of arrival?: Yes ASA at discharge?: Yes Antiplatelet Therapy at Discharge:: No Reason Antiplatelet Therapy not ordered:: No intervention made Statins at discharge?: No Reason statins not ordered:: Allergy Zachary/ARB at discharge?: No Reason Zachary/ARB not ordered:: Not indicated Beta Yuliana at discharge?: Yes Done w/ Acute CA measure.: Yes Documented LVEF (%): 65 Discharge Plan Admission Admit Date/Time: 11/06/22 11:55 Attending Provider: Andrew Cronin Primary Care Provider: Lance Bose Chi Consulting Providers: Kevin Bourgeois Discharge Orders/Prescriptions Prescriptions: New amlodipine 5 mg Tablet 5 mg PO DAILY Qty: 60 0RF aspirin 81 mg Tablet,Delayed Release (Dr/Ec) 81 mg PO BREAKFAST Qty: 60 0RF Continued famotidine [Pepcid AC] 20 mg tablet 20 mg PO DAILY ursodiol [PAT 250] 250 MG tablet 375 mg PO BID cyclobenzaprine 10 mg tablet 10 mg PO TID PRN (Reason: MUSCLE SPASMS) sulfamethoxazole-trimethoprim 400-80 mg tablet 1 tab PO DAILY ondansetron 4 mg tablet,disintegrating 4 mg PO Q8H PRN (Reason: NAUSEA ) Eliquis 5 mg tablet 5 mg PO BID lactulose 20 gram/30 mL solution 30 ml PO BID furosemide 40 mg tablet 40 mg PO DAILY allopurinol 300 mg tablet 300 mg PO DAILY pantoprazole 40 mg tablet,delayed release (DR/EC) 40 mg PO DAILY alprazolam 0.5 MG tablet 0.5 mg PO DAILY PRN (Reason: ANXIETY ) tacrolimus 0.5 mg capsule 0.5 mg PO 0900,2100 oxycodone 10 mg tablet 10 mg PO TID amiodarone 200 mg tablet 200 mg PO DAILY metoprolol tartrate 50 mg tablet 50 mg PO BID Referrals / Follow Up: Verenice Monae DO [Med Staff - Consulting] - Within 1 Week Kevin Bourgeois MD [Med Staff - Active Staff] - Within 1 Month Lance Bose Chi, MD [Primary Care Provider] - In 1 Week Disposition Disposition (needs filled in before D/C Order can be placed): Home, Self Care Charges/Coding Visit Charges Inpatient E&M: 85821 Disch Hosp >30min
--- NOTE | 2022-11-07 13:59 | PN_ITS ---
Subjective Subjective Patient is feeling a lot better now that he is having bowel movements. He denies any abdominal pain. He states that he is hungry. As per his and his daughter who is at the bedside he cannot give very angry when his ammonia gets to high. Objective Data Objective Data Vital Signs: Vital Signs Temp Pulse Resp BP Pulse Ox O2 Del Method 98.5 F 61 16 144/79 H 96 Room Air 11/07/22 10:26 11/07/22 10:32 11/07/22 10:26 11/07/22 10:26 11/07/22 10:26 11/07/22 10:26 Oxygen Delivery Method Room Air Weight: 333 lb 8.95 oz Body Mass Index (BMI) 47.7 Intake & Output: Intake and Output for Last 24 Hours 11/05/22 11/06/22 11/07/22 23:59 23:59 23:59 Intake Total 1950 / 2150 200 / 200 Output Total 400 / 400 Balance 1950 / 2000 -200 / -200 Lab / Micro Data Result Diagrams: 11/07/22 04:38 11/07/22 04:38 Labs: Laboratory Results - last 24 hr 11/06/22 13:57: Troponin I High Sens 204 H* 11/06/22 15:16: Lactic Acid 1.6 11/06/22 19:05: Troponin I High Sens 145 H* 11/07/22 04:38: WBC 14.5 H, RBC 4.05 L, Hgb 12.0 L, Hct 37.8 L, MCV 93.3, MCH 29.6, MCHC 31.7 L, RDW Std Deviation 57.9 H, RDW Coeff of Maciel 17.2 H, Plt Count 320, MPV 10.2, Immature Gran % (Auto) 1.200 H, Neut % (Auto) 80.9 H, Lymph % (Auto) 11.4 L, [place] % (Auto) 6.3, Eos % (Auto) 0.1, Baso % (Auto) 0.1, Absolute Neuts (auto) 11.8 H, Absolute Lymphs (auto) 1.66, Nucleated RBC % 0 11/07/22 04:38: Sodium 144, Potassium 3.8, Chloride 113 H, Carbon Dioxide 21.0, Anion Gap 10, BUN 47 H, Creatinine 2.62 H, Estim Creat Clear Calc 30.57, Est GFR (MDRD) Af Amer 32 L, Est GFR (MDRD) Non-Af 27 L, BUN/Creatinine Ratio 17.9, Glucose 154 H, Calcium 8.4 L, Magnesium 1.9, Total Bilirubin 0.60, Direct Bilirubin 0.19, AST 9 L, ALT 12 L, Alkaline Phosphatase 116, Total Protein 5.7 L , Albumin 2.0 L, Globulin 3.7, Triglycerides 83, Cholesterol 197, LDL Cholesterol 146 H, VLDL Cholesterol 17, HDL Cholesterol 34 L, TSH 1.74 Micro: Microbiology 11/06/22 10:26 Nasal Secretion SARS-CoV-2 & FLU Antigen (Rapid) - Final Radiography Diagnostic Testing: Radiology Impression Carotid Duplex 11/06/22 12:39 Interpretation Summary Minimal smooth plaque at the proximal right internal carotid artery with less than 50% stenosis Less than 50% stenosis right external carotid artery Minimal smooth plaque of the proximal left internal carotid artery with less than 50% stenosis Less than 50% stenosis left external carotid artery Patent and antegrade vertebral arteries bilaterally Ordering Physician: Andrew Cronin Referring Physician: Lance Bose Chi Performed By: Rolanda Harper RVT Echocardiogram 11/06/22 13:10 Interpretation Summary The study was technically difficult. Contrast injection was performed. Based upon the 2D echocardiographic and contrast enhanced images obtained there appears to be grossly normal left ventricular size, wall motion, and systolic function. The estimated ejection fraction is 65 %. Ordering Physician: Andrew Cronin Performed By: Marcial Hair RCS Brain CT 11/07/22 11:52 IMPRESSION: Chronic involutional changes of the brain. No acute hemorrhage, no interval change Electronically Signed: Balaji Zaman MD at 13:27 EST Reading Location ID and State: [address] [place] [address] , Service support , Physical Exam Narrative GENERAL: cooperative HEENT: Atraumatic; normocephalic EYES; Anicteric, Normal Conjunctiva NECK; supple, normal thyroid, RESPIRATORY: Diminished to auscultation CARDIOVASCULAR: Regular S1 S2, GI: soft, normoactive bowel sounds, : No Renal angle tenderness; EXTREMITIES: No edema, no clubbing, MUSCULOSKELETAL: no muscle wasting NEURO: Awake; no lateralizing signs. SKIN: No Rash PSYCH; Flat affect Assessment & Plan Assessment/Plan (1) Lactic acidosis: (2) Chest pain: (3) History of liver transplant: PLAN: Plan Patient is a 61-year-old gentleman with multiple comorbidities including morbid obesity resulting in chronic kidney disease, fatty liver disease, alpha-1 antitrypsin deficiency (unknown genotype at this time) resulting in the need for liver transplant. He presented with weakness shortness of breath, altered mental status and was discovered to have acute non-ST segment elevation [place]. 1. Elevated troponin ? acute non-STEMI he is currently being seen cardiology. As per the patient there is no plan to do at this time in 2 to chronic kidney disease stage III to stage IV. 3. Transient focal weakness-possibly secondary to Hyperammonemia as he has not been complaint with Lactulose. His ammonia has has improved since being in the hospital. He is to take lactulose 30 cc 3 times a day and recommend to start him on Xifaxan therapy 550 mg twice a day. If that is not attainable then I will recommend Flagyl 500 mg twice daily and possibly neomycin 500 mg once a day due to his kidney function. 5.? History of liver transplant ? In 2017 on account of NAFLD as well as alpha-1 antitrypsin deficiency.? Patient is on Bactrim as well as tacrolimus did continue. ith other providers, nursing nursing and ancillary staff involved in patient's care documentation, 57 Minutes Charges/Coding Visit Charges Inpatient E&M: 12187 Subs Hosp L3
--- NOTE | 2022-11-07 14:25 | CASEMGMT ---
Addendum entered by Katharine Villaseñor 11/07/22 16:14: 1425: After asses completed and RN CM exited room, pt's dtr was standing in hallway to voice concern w/how taxing it has been on her mother providing all the care to her father. She is aware they both wish to cancel HHC at this time. RN CM informed her, if they are agreeable to or wanting HHC again in the future, they can contact PCP about this. She voices understanding. Original Note: RN?CM?PERSON INVESTIGATOR?CM?to room to meet with patient for initial transition planning/care coordination?assessment.?RN?CM?introduced self and role at [facility].? Pt voices understanding and consents to?assessment?at this time.? Pt resting in bed in no distress at this time.? @ bedside. Pt is A/O at this time and answers all questions appropriately.?? Care providers, pharmacy, and demographics verified/updated at this time. PCP: Dr Bose Specialists: Dr Thomas-cardiology, Dr Monae-nephrology, Dr Bales-GI/hepatology [facility]erred [facility] Prescription Benefit:?AARCR Living Will/HPOA: Pt does have LW and HCPOA. Pt states his , Sheba Howard, is HPOA. LNOK: Sheba Howard, /HPOA; 3 dtr's: Frida, Alda, and one who lives out of state Living Arrangements: Pt lives in mobile home with ramp and states no concerns at home. Pt's assists with ADL's-she assists w/pt getting into the shower and then pt can wash himself. assist pt w/dressing and personal care after toileting. manages pt's medications and does most home mgmt tasks. Transportation: Pt states drives and states no transportation concerns. Dtr's also can assist if needed. DME/HHC: Pt has the following DME: cane, WW, rollator, power scooter, w/c, shower chair, grab bars/rails by toilet, and lift chair. just ordered a [employer]en RTS. Pt and state no need for any further DME. Pt has hx of HHC and has been to [facility] and [facility] for rehab in the past. Pt is active w/[facility] for SN and therapy. and pt both feel pt does not need HHC any longer and wish to cancel it and would like ASHANTI BROOKE to notify [facility] of this. Pt states he has handouts on exercises and feels he can do more on his own than w/therapy. ASHANTI BROOKE informed them, if they decide pt would like it again, to discuss this with his PCP. They voice understanding. Call placed to Cristy @ [facility] and was made aware pt and wish to cancel HHC at this time. PLAN:??Home w/spousal support and discharge plans in place. Lasha FAGANN?RN?CM
[2022-11-07 14:32] VITALS: BP 138/74; PULSE 62; RESP 16; TEMP 37.1; O2SAT 98
[2022-11-09 20:59] LABS: Tacrolimus (FK506) 8.7 ng/mL (2.0-20.0)
== END 2022-11-07 14:52 | disposition home or self-care (01) | DRG 280 ==
LOC: ED 11:54 → PCU 12:42
PROVIDERS: Internal Medicine Gastroenterology; Admitting Provider Internal Medicine; Emergency Provider Emergency Medicine; PCP Family Medicine Geriatric Medicine; Visit Provider Internal Medicine
DX: I21.4 Non-ST elevation (NSTEMI) myocardial infarction (principal); I50.33 Acute on chronic diastolic (congestive) heart failure; E72.20 Disorder of urea cycle metabolism, unspecified; N17.9 Acute kidney failure, unspecified; Z68.43 Body mass index [BMI] 50.0-59.9, adult; Z94.4 Liver transplant status; N18.4 Chronic kidney disease, stage 4 (severe); I13.0 Hypertensive heart and chronic kidney disease with heart failure and stage 1 through stage 4 chronic kidney disease, or unspecified chronic kidney disease; E86.0 Dehydration; I48.0 Paroxysmal atrial fibrillation; E66.01 Morbid (severe) obesity due to excess calories; I25.10 Atherosclerotic heart disease of native coronary artery without angina pectoris; M10.9 Gout, unspecified; I25.2 Old myocardial infarction; R73.9 Hyperglycemia, unspecified; R41.82 Altered mental status, unspecified; F40.240 Claustrophobia; Z91.14 Patient's other noncompliance with medication regimen; Z20.822 Contact with and (suspected) exposure to COVID-19; Z79.52 Long term (current) use of systemic steroids; Z79.01 Long term (current) use of anticoagulants; Z79.891 Long term (current) use of opiate analgesic; Z95.5 Presence of coronary angioplasty implant and graft; Z96.612 Presence of left artificial shoulder joint
CPT/HCPCS: 36415; 70450; 71045; 80048; 80053; 80061; 80076; 80197; 81001; 82140; 83605; 83735; 84443; 84484; 85025; 87428; 92523; 93005; 93308; 93880; 94668; 96360; 97802; 99252; 99283; 99285; J7030; Q9957; A4216; C8924; G0463; J2785

== ENCOUNTER → 2022-11-14 | Outpatient (CLI) | payer MEDICARE, SELFPAY ==
[2022-11-14 13:17] LABS: Albumin, Serum 2.1 g/dL (3.2-5.0); BUN 29 mg/dL (7-18); BUN/Creat Ratio 13.6 RATIO (10-20); Calcium,Total 9.3 mg/dL (8.5-10.1); Chloride 108 mmol/L (98-107); Creatinine, Serum 2.13 mg/dL (0.70-1.30); EST Glomerular Filtration Rate 34 mL/min (>60); Est Glom Filt Rate - Afr Amer 41 mL/min (>60); Glucose 210 mg/dL (74-106); Phosphorus 1.8 mg/dL (2.5-4.9); Potassium 4.8 mmol/L (3.5-5.1); Sodium Level 139 mmol/L (136-145)
== END | disposition home or self-care (01) ==
PROVIDERS: PCP Family Medicine Geriatric Medicine; Visit Provider Internal Medicine Nephrology
DX: N17.9 Acute kidney failure, unspecified (principal)
CPT/HCPCS: 36415; 80069

== ENCOUNTER → 2022-12-17 | Outpatient (CLI) | payer MEDICARE, SELFPAY ==
[2022-12-17 18:28] LABS: Anion Gap 7 (5-15); BUN 25 mg/dL (7-18); BUN/Creat Ratio 10.5 RATIO (10-20); Chloride 105 mmol/L (98-107); Creatinine, Serum 2.38 mg/dL (0.70-1.30); EST Glomerular Filtration Rate 30 mL/min (>60); Est Glom Filt Rate - Afr Amer 36 mL/min (>60); Glucose 157 mg/dL (74-106); Sodium Level 138 mmol/L (136-145)
== END | disposition home or self-care (01) ==
LOC: POLAB3 14:03
PROVIDERS: PCP Family Medicine Geriatric Medicine; Visit Provider Family Medicine Geriatric Medicine
DX: I10 Essential (primary) hypertension (principal)
CPT/HCPCS: 36415; 80048

== ENCOUNTER 2023-02-08 10:40 | Inpatient (IN) | payer MEDICARE, SELFPAY ==
[2023-02-08] VITALS (8 sets, daily range): BP systolic 87–117; BP diastolic 43–71; PULSE 53–61; RESP 18; TEMP 36.6–36.9; O2SAT 94–97; BMI 49.6
--- NOTE | 2023-02-08 11:15 | EKG12_ITS ---
Test Reason : GEN ILLNESS Blood Pressure : / mmHG Vent. Rate : 095 BPM Atrial Rate : 095 BPM P-R Int : 248 ms QRS Dur : 090 ms QT Int : 446 ms P-R-T Axes : 040 -37 003 degrees QTc Int : 560 ms Sinus rhythm with 1st degree A-V block with Premature supraventricular complexes and with frequent an d consecutive Premature ventricular complexes Left axis deviation Low voltage QRS Possible Anterolateral infarct , age undetermined Abnormal ECG Confirmed by SAHIL SHIPMAN, ROULA ([id number]), department editor JULIO CÉSAR SOLORIO ([id number]) on 02/11/2023 1:38:18 PM Referred By: STARLA Confirmed By:ROULA BXATER MD
--- NOTE | 2023-02-08 11:42 | EX.ED.DYSGE1 ---
HPI <MARNIE Rico - Last Filed: 02/08/23 15:35> History of Present Illness Chief Complaint: General Illness Narrative Narrative: Patient presenting today due to increased weakness that he has had over the past 3 weeks. He reports that he woke up this morning and his legs were not supporting him and he was unable to get out of his chair and had to call EMS to bring him in. His daughter and are in the room and reports that over the past month he has been eating and drinking less, seems dehydrated, and has had increased fatigue. Dr. Bose is his PCP and would like him to be admitted so that he can go to a rehabilitation facility. Patient has a PMH of a liver transplant, CAD, CKD stage III, rheumatoid arthritis, chronic back pain, and osteoarthritis. He reports that he is supposed to be getting a heart catheterization soon but due to his kidney function, this has been put off. Family also reports concerns that his ammonia level could be high. He admits to shortness of breath on exertion. He denies any fever, chills, chest pain, urinary symptoms, abdominal pain, nausea, and vomiting. PFSH <MARNIE Rico - Last Filed: 02/08/23 15:35> [facility] Medical History (HFpEF) heart failure with preserved ejection fraction Acidosis, lactic Acute hypotension Anemia of chronic disease Ascites Atherosclerotic heart disease of tejon coronary artery without angina pectoris Atrial fibrillation Atrial flutter with rapid ventricular response (02/02/21) Cellulitis Chronic renal failure, stage 3 (moderate) Cirrhosis Coronary artery disease Gout History of non-ST elevation myocardial infarction (NSTEMI) (12/29/20) Kidney disease Morbid obesity Multiple falls Nonsustained paroxysmal ventricular tachycardia (12/2020) Right hip pain Venous insufficiency Vertigo, central Home Medications cyclobenzaprine 10 mg tablet 10 mg PO TID PRN MUSCLE SPASMS 06/19/22 [History Last Taken 02/06/23] ondansetron 4 mg disintegrating tablet 4 mg PO Q8H PRN NAUSEA 06/19/22 [History Last Taken 02/07/23] apixaban 5 mg tablet (Eliquis) 5 mg PO BID BLOOD THINNER 07/20/22 [History Last Taken 02/08/23] allopurinol 300 mg tablet 300 mg PO DAILY GOUT 11/04/22 [History Last Taken 02/08/23] furosemide 40 mg tablet 80 mg PO DAILY FLUID 11/04/22 [History Last Taken 02/08/23] oxycodone 10 mg tablet 10 mg PO TID BREAKTHROUGH PAIN 11/06/22 [History Last Taken 02/07/23] tacrolimus 0.5 mg capsule, immediate-release 0.5 mg PO 0900,2100 LIVER TRANSPLANT 11/06/22 [History Last Taken 02/08/23] amlodipine 5 mg tablet 5 mg PO DAILY #60 tabs 11/07/22 [Rx Last Taken 02/08/23] aspirin 81 mg tablet,delayed release 81 mg PO BREAKFAST #60 tabs 11/07/22 [Rx Last Taken 02/07/23] ursodiol 300 mg capsule 300 mg PO BID #60 caps 11/13/22 [Rx Last Taken 02/08/23] sulfamethoxazole 400 mg-trimethoprim 80 mg tablet 1 tab PO DAILY LIVER TRANSPLANT #90 tabs 11/20/22 [Rx Last Taken 02/08/23] famotidine 20 mg tablet (Pepcid AC) 20 mg PO BID ACID REFLUX 11/27/22 [History Last Taken 02/08/23] metoprolol tartrate 50 mg tablet 50 mg PO BID BLOOD PRESSURE #180 tabs 11/27/22 [Rx Last Taken 02/08/23] nitroglycerin 0.4 mg sublingual tablet 0.4 mg sublingual Q5M PRN chest pain #25 tabs 11/27/22 [Rx Last Taken Unknown] metronidazole 500 mg tablet 500 mg PO DAILY #30 tabs 12/07/22 [Rx Last Taken 02/07/23] neomycin 500 mg tablet 500 mg PO BID #60 tabs 12/07/22 [Rx Last Taken 02/08/23] amiodarone 200 mg tablet See Rx Instructions .Route .COMPLEX #60 TABLETS 01/15/23 [Rx Last Taken 02/07/23] citalopram 10 mg tablet 10 mg PO DAILY MOOD 02/08/23 [History Last Taken Unknown] Allergy/AdvReac Type Severity Reaction Status Date / Time morphine Allergy Hives Verified 02/08/23 21:23 pravastatin [From Pravachol] Allergy Hives Verified 11/27/22 12:57 Ydeitnm-ZAE-PjN Reductase Allergy Hives Verified 11/27/22 12:57 Inhibitor [Lwztayt-Dzp-Sob Reductase Inhibitor] vancomycin Allergy NEEDS Verified 11/27/22 12:57 FOLLOW-UP zolpidem tartrate Allergy Hives Verified 11/27/22 12:57 [From Ambien] everolimus AdvReac Swelling Verified 11/27/22 12:57 gabapentin AdvReac NEEDS Verified 11/27/22 12:57 FOLLOW-UP Family History Mother Heart disease Father Heart disease Surgical History H/O shoulder surgery History of cardioversion (02/02/21) History of cataract extraction with lens replacement (~11/22/22) History of hip surgery Liver transplant recipient Status post liver transplant (07/2017) Social History household members: spouse Smoking Status: Never smoker alcohol intake: former substance use type: does not use caffeine: No ROS <MARNIE Rico - Last Filed: 02/08/23 15:35> ROS ED Constitutional Constitutional ED: Denies chills or fever(s) Cardiovascular Cardiovascular: Denies chest pain Respiratory/Chest Respiratory/Chest: Reports dyspnea on exertion; Denies cough Gastrointestinal Gastrointestinal: Reports constipation; Denies abdominal pain, nausea or vomiting Genitourinary Genitourinary ED: Denies dysuria, hematuria or urinary urgency Musculoskeletal Musculoskeletal: Reports arthralgias and back pain Integumentary Denies abscess, Abrasions or rash Neurologic Neurologic: Reports weakness; Denies confusion, dizziness or paresthesias EXAM <MARNIE Rico - Last Filed: 02/08/23 15:35> Physical Exam Const Vital Signs: 02/08/23 10:41 02/08/23 10:43 02/08/23 12:54 Temperature 97.8 F Temperature Source Temporal Pulse Rate 53 L Respiratory Rate 18 Respiratory Effort Normal Blood Pressure 103/71 100/59 L Blood Pressure Mean 81 72 Pulse Ox 94 Oxygen Delivery Method Room Air 02/08/23 14:28 02/08/23 15:33 Temperature 97.8 F Temperature Source Temporal Pulse Rate 56 L 57 L Respiratory Rate 18 18 Respiratory Effort Blood Pressure 112/65 117/58 L Blood Pressure Mean 80 77 Pulse Ox 97 96 Oxygen Delivery Method Room Air Room Air Positive well nourished, well developed, obese and no apparent distress General Appearance ED: well developed Nutritional Appearance: obese HEENT Reports normocephalic and head/scalp atraumatic Mouth ED: Yes moist mucous membranes normal Eyes PERRL and EOMs intact bilaterally Neck full ROM and supple Chest Wall inspection of chest normal Resp normal respiratory effort and clear to auscultation bilaterally Cardio regular rate and regular rhythm GI soft to palpation, non-tender, non-distended and no masses Back/Spine normal ROM and normal to inspection Extremity normal to inspection and full ROM Neuro oriented x3, CN's II-XII intact bilaterally, moves all extremities, no focal motor deficits and no sensory deficits noted Sensorium / Orientation: awake and alert Psych mental status grossly normal and thought process normal Skin no rashes or lesions noted and no wounds <Dr. Claudio Phipps DO - Last Filed: 02/08/23 22:13> Physical Exam Const Vital Signs: 02/08/23 10:41 02/08/23 10:43 02/08/23 12:54 Temperature 97.8 F Temperature Source Temporal Pulse Rate 53 L Respiratory Rate 18 Respiratory Effort Normal Blood Pressure 103/71 100/59 L Blood Pressure Mean 81 72 Pulse Ox 94 Oxygen Delivery Method Room Air 02/08/23 14:28 02/08/23 15:33 Temperature 97.8 F Temperature Source Temporal Pulse Rate 56 L 57 L Respiratory Rate 18 18 Respiratory Effort Blood Pressure 112/65 117/58 L Blood Pressure Mean 80 77 Pulse Ox 97 96 Oxygen Delivery Method Room Air Room Air MDM <MARNIE Rico - Last Filed: 02/08/23 15:35> [facility] Narrative Medical decision making narrative: Patient presenting due to increased weakness that he has had over the past 3 weeks. He was unable to get out of his chair this morning to stand and his had to call EMS. He would like to go to a rehabilitation facility to gain his strength back. Labs to be obtained rule out leukocytosis, anemia, electrolyte abnormality, AISSATOU, assess liver enzymes and ammonia level. Chest x-ray will be obtained to rule out infiltrate and EKG to rule out arrhythmia. CBC shows a slight anemia with an H&H of 12.3 and 37.7, CMP shows a BUN of 37 and a creatinine of 3.85, this is elevated from his baseline as his creatinine in December was 2.38, ammonia slightly elevated at 67. He has been given IV fluids. I did order lactulose for the patient but he refused to take it. UA obtained to rule out UTI and is unremarkable. Given his AISSATOU, I spoke to the hospitalist for admission and he will be admitted in stable condition for further treatment. He and family are comfortable with plan. Lab Data Attestation: I reviewed the patient's lab results. Labs: Laboratory Results - last 24 hr 02/08/23 02/08/23 02/08/23 11:49 11:49 11:49 WBC 9.0 RBC 3.99 L Hgb 12.3 L Hct 37.7 L MCV 94.5 H MCH 30.8 MCHC 32.6 RDW Std Deviation 50.5 H RDW Coeff of Maciel 14.6 Plt Count 349 MPV 10.4 Immature Gran % (Auto) 0.300 Neut % (Auto) 66.9 Lymph % (Auto) 21.3 [place]ett % (Auto) 8.0 Eos % (Auto) 3.2 Baso % (Auto) 0.3 Absolute Neuts (auto) 6.0 Absolute Lymphs (auto) 1.92 Nucleated RBC % 0 Sodium 136 Potassium 4.8 Chloride 103 Carbon Dioxide 27.0 Anion Gap 6 BUN 37 H Creatinine 3.85 H Estim Creat Clear Calc 20.54 Est GFR (MDRD) Af Amer 21 L Est GFR (MDRD) Non-Af 17 L BUN/Creatinine Ratio 9.6 L Glucose 173 H Calcium 9.0 Phosphorus Magnesium Total Bilirubin 0.50 AST 14 L ALT 12 L Alkaline Phosphatase 112 Ammonia 67.0 H Total Protein 6.4 Albumin 2.2 L Globulin 4.2 Albumin/Globulin Ratio 0.5 L Urine Color Urine Clarity Urine pH Ur Specific [place] Urine Protein Urine Glucose (UA) Urine Ketones Urine Occult Blood Urine Nitrite Urine Bilirubin Urine Urobilinogen Ur Leukocyte Esterase Urine RBC Urine WBC Ur Squamous Epith Cells Urine Bacteria Urine Mucus 02/08/23 02/08/23 11:49 12:30 WBC RBC Hgb Hct MCV MCH MCHC RDW Std Deviation RDW Coeff of Maciel Plt Count MPV Immature Gran % (Auto) Neut % (Auto) Lymph % (Auto) [place] % (Auto) Eos % (Auto) Baso % (Auto) Absolute Neuts (auto) Absolute Lymphs (auto) Nucleated RBC % Sodium Potassium Chloride Carbon Dioxide Anion Gap BUN Creatinine Estim Creat Clear Calc Est GFR (MDRD) Af Amer Est GFR (MDRD) Non-Af BUN/Creatinine Ratio Glucose Calcium Phosphorus 2.6 Magnesium 1.6 Total Bilirubin AST ALT Alkaline Phosphatase Ammonia Total Protein Albumin Globulin Albumin/Globulin Ratio Urine Color Yellow Urine Clarity Sl. Cloudy Urine pH 5.0 Ur Specific [place] 1.020 Urine Protein Negative Urine Glucose (UA) Normal Urine Ketones Negative Urine Occult Blood Negative Urine Nitrite Negative Urine Bilirubin 1 H Urine Urobilinogen Normal Ur Leukocyte Esterase 25 H Urine RBC 0 SEEN Urine WBC 0-5 SEEN Ur Squamous Epith Cells 0 SEEN Urine Bacteria 0 SEEN Urine Mucus 0 SEEN Radiography X-Ray: Read by ED Physician and Read by Radiologist Diagnostic Testing: Clinical Impression(s) from Imaging Studies Chest X-Ray 02/08/23 12:00 IMPRESSION: No radiographic evidence of acute cardiopulmonary disease. Electronically Signed: Ly Yeung MD at 12:13 EDT , EKG Initial EKG: Comments: 95 bpm, sinus rhythm with first-degree AV block with premature supraventricular complexes with frequent and consecutive PVCs, left axis deviation, no ST elevation, reviewed and interpreted by attending ED physician. <Dr. Claudio Phipps, DO - Last Filed: 02/08/23 22:13> [facility] Lab Data Labs: Laboratory Results - last 24 hr 02/08/23 02/08/23 02/08/23 11:49 11:49 11:49 WBC 9.0 RBC 3.99 L Hgb 12.3 L Hct 37.7 L MCV 94.5 H MCH 30.8 MCHC 32.6 RDW Std Deviation 50.5 H RDW Coeff of Maciel 14.6 Plt Count 349 MPV 10.4 Immature Gran % (Auto) 0.300 Neut % (Auto) 66.9 Lymph % (Auto) 21.3 [place]ett % (Auto) 8.0 Eos % (Auto) 3.2 Baso % (Auto) 0.3 Absolute Neuts (auto) 6.0 Absolute Lymphs (auto) 1.92 Nucleated RBC % 0 Sodium 136 Potassium 4.8 Chloride 103 Carbon Dioxide 27.0 Anion Gap 6 BUN 37 H Creatinine 3.85 H Estim Creat Clear Calc 20.54 Est GFR (MDRD) Af Amer 21 L Est GFR (MDRD) Non-Af 17 L BUN/Creatinine Ratio 9.6 L Glucose 173 H Calcium 9.0 Phosphorus Magnesium Total Bilirubin 0.50 AST 14 L ALT 12 L Alkaline Phosphatase 112 Ammonia 67.0 H Total Protein 6.4 Albumin 2.2 L Globulin 4.2 Albumin/Globulin Ratio 0.5 L Urine Color Urine Clarity Urine pH Ur Specific [place] Urine Protein Urine Glucose (UA) Urine Ketones Urine Occult Blood Urine Nitrite Urine Bilirubin Urine Urobilinogen Ur Leukocyte Esterase Urine RBC Urine WBC Ur Squamous Epith Cells Urine Bacteria Urine Mucus 02/08/23 02/08/23 11:49 12:30 WBC RBC Hgb Hct MCV MCH MCHC RDW Std Deviation RDW Coeff of Maciel Plt Count MPV Immature Gran % (Auto) Neut % (Auto) Lymph % (Auto) [place] % (Auto) Eos % (Auto) Baso % (Auto) Absolute Neuts (auto) Absolute Lymphs (auto) Nucleated RBC % Sodium Potassium Chloride Carbon Dioxide Anion Gap BUN Creatinine Estim Creat Clear Calc Est GFR (MDRD) Af Amer Est GFR (MDRD) Non-Af BUN/Creatinine Ratio Glucose Calcium Phosphorus 2.6 Magnesium 1.6 Total Bilirubin AST ALT Alkaline Phosphatase Ammonia Total Protein Albumin Globulin Albumin/Globulin Ratio Urine Color Yellow Urine Clarity Sl. Cloudy Urine pH 5.0 Ur Specific [place] 1.020 Urine Protein Negative Urine Glucose (UA) Normal Urine Ketones Negative Urine Occult Blood Negative Urine Nitrite Negative Urine Bilirubin 1 H Urine Urobilinogen Normal Ur Leukocyte Esterase 25 H Urine RBC 0 SEEN Urine WBC 0-5 SEEN Ur Squamous Epith Cells 0 SEEN Urine Bacteria 0 SEEN Urine Mucus 0 SEEN Radiography Diagnostic Testing: Clinical Impression(s) from Imaging Studies Chest X-Ray 02/08/23 12:00 IMPRESSION: No radiographic evidence of acute cardiopulmonary disease. Electronically Signed: Ly Yeung MD at 12:13 EDT , Treatment and Re-Evaluation :: I have personally performed a face to face assessment of the patient and have reviewed the CAMMY Note. I performed a substantive portion of the visit including all aspects of the following. My chan findings include: History: Patient presents with generalized weakness that has been getting worse over the past several days. Patient states he is now having difficulty getting around at home due to the weakness. Patient states he normally walks with a walker and rollator. Patient states he has been having difficulty even ambulating with his walker and rollator. Family states patient has been having some increase in his confusion recently. Family states that his primary care physician checked an ammonia level and it was mildly elevated. Patient has been taking his lactulose as prescribed. Exam: Vital signs are stable. Patient is afebrile. Patient is in no acute distress. Oral mucosa is pink and moist. Neck is supple. Trachea is midline. There is no JVD. Heart was regular rate and rhythm. Lungs are clear and equal bilaterally. Abdomen is soft. Bowel sounds are normal. There is no tenderness or ascites noted. Cranial nerves II through XII are grossly intact. There are no focal motor or sensory deficits noted. Medical Decision Making: Differential diagnosis includes anemia, hepatic encephalopathy, deconditioning, debility, electrolyte abnormality, cardiac dysrhythmia, cardiac ischemia, infection, pneumonia, urinary tract infection. CBC will be obtained to assess for anemia and leukocytosis. Comprehensive metabolic profile will be obtained to assess for hepatic function, renal function, and electrolyte abnormality. Serum ammonia level will be admitted to assess for hepatic encephalopathy. Magnesium phosphorus will be obtained to assess for hypomagnesemia and hypophosphatemia. Urinalysis will be obtained to assess for urinary tract infection and hematuria. EKG will be obtained to assess for dysrhythmia and cardiac ischemia. Chest x-ray will be obtained to assess for pneumonia. CBC showed a slight anemia with a hemoglobin of 12.3. White blood cell count was within normal limits. Comprehensive metabolic profile was reviewed and showed an elevated fracture, creatinine of 3.85. This is increased from previous results. BUN was elevated at 37. Phosphorus and magnesium were reviewed and were within normal limits. Serum ammonia level was reviewed and was elevated at 67. Urinalysis was reviewed. There is no evidence of urinary tract infection or hematuria. Patient was given IV fluids here. Patient was given a dose of lactulose here. Case was discussed with the hospitalist. He will admit the patient to his service. Patient and family understand and are agreeable with the plan. All questions were answered. Discharge Plan Dx/Rx/DC Orders Clinical Impression: Adult failure to thrive, Weakness, AISSATOU (acute kidney injury), Dehydration Disposition Disposition: Acute Care Hospital [facility] Discharge Date/Time: 02/08/23 17:41
[2023-02-08] MEDS: 0.9% Normal Saline 1,000 ML 999 ML IV (11:52)
--- NOTE | 2023-02-08 12:00 | RAD_ITS ---
INDICATION: shortness of breath EXAMINATION/TECHNIQUE: X-RAY - XR Chest 1 View COMPARISON: November 04, 2022 FINDINGS: LINES/DEVICES: None. LUNGS: No consolidation, edema or effusion. No pneumothorax. MEDIASTINUM AND CARDIOVASCULAR STRUCTURES: Cardiac silhouette not enlarged. Central airways and mediastinal contour are unremarkable. BONES AND SOFT TISSUES: There is a stable left shoulder arthroplasty. RAD/Chest 1 View (Portable) IMPRESSION: No radiographic evidence of acute cardiopulmonary disease. Electronically Signed: Ly Yeung MD at 12:13 EDT ,
[2023-02-08 12:17] LABS: Absolute Lymphocyte Count 1.92 X10^3/uL (0.83-4.51); Basophil# 0.03 X10^3/uL; Basophil% 0.3 % (0-1); Eosinophil# 0.29 X10^3/uL; Eosinophils% 3.2 % (0-5); Hematocrit 37.7 % (40-54); Hemoglobin 12.3 g/dL (13.0-16.5); Lymphocyte # 1.92 X10^3/ul (0.83-4.51); Lymphocyte % 21.3 % (19-41); Mean Corp Hgb Conc 32.6 g/dL (32-36); Mean Corpuscular Hgb 30.8 pg (27.0-32.0); Mean Corpuscular Volume 94.5 fL (80-94); Mean Platelet Vol. 10.4 fl (6.2-12.0); Monocyte# 0.72 X10^3/uL; NRBC Flagged by Analyzer 0 % (0-5); Neutrophil # 6.03 X10^3/uL (2.7-7.7); Neutrophil % 66.9 % (47-70); Platelet Count 349 K/mm3 (150-450); RBC Distribution Width CV 14.6 % (11.6-14.6); RBC Distribution Width SD 50.5 fl (35.1-43.9); Red Blood Count 3.99 M/mm3 (4.6-6.2)
[2023-02-08 12:31] LABS: ALB/GLOB Ratio 0.5 RATIO (0.9-2.4); AST(SGOT) 14 U/L (15-37); Alanine Aminotransfer ALT/SGPT 12 U/L (16-61); Albumin, Serum 2.2 g/dL (3.2-5.0); Alkaline Phosphatase 112 U/L (45-117); Anion Gap 6 (5-15); BUN 37 mg/dL (7-18); BUN/Creat Ratio 9.6 RATIO (10-20); Chloride 103 mmol/L (98-107); Creatinine, Serum 3.85 mg/dL (0.70-1.30); EST Glomerular Filtration Rate 17 mL/min (>60); Est Glom Filt Rate - Afr Amer 21 mL/min (>60); Estimated Creatinine Clearance 20.54 ml/min; Globulin 4.2 g/dL (2.2-4.2); Glucose 173 mg/dL (74-106); Potassium 4.8 mmol/L (3.5-5.1); Protein, Total 6.4 g/dL (6.4-8.2); Sodium Level 136 mmol/L (136-145)
[2023-02-08 13:01] LABS: Bacteria 0 SEEN /hpf (None Seen); Mucous, Urine 0 SEEN /hpf (<or=2+); Red Blood Cells-Urine 0 SEEN /hpf (0-5); Squamous Epithelial Cells - UA 0 SEEN /hpf (0-5)
[2023-02-08 13:09] LABS: Color, Urine Yellow (Yellow); Glucose, Dipstick Normal (Normal); Ketone-Dipstick Negative (Negative); Leukocyte Esterase-Dipstick 25 /ul (Negative); Nitrite-Dipstick Negative (Negative); Occult Blood-Urine Negative /ul (Negative); Protein-Dipstick Negative (Negative); Urine Clarity Sl. Cloudy (Clear); Urine Urobilinogen Normal (Normal)
[2023-02-08 13:11] LABS: Urine Bilirubin Dipstick 1 mg/dL (Negative)
[2023-02-08 13:17] LABS: White Blood Cells 0-5 SEEN /hpf (0-5)
--- NOTE | 2023-02-08 14:43 | PCM.HP.STD ---
HPI - General General Date of Admission: 02/08/23 Date of Service: 02/08/23 Chief Complaint: Increased weakness over past 3 weeks. Creatinine went up 3.85 HPI Narrative ESTEFANIA MILLER, is a 62 M who was brought by EMS at the request by PCP for admission for generalized weakness and AISSATOU on CKD. Patient baseline creatinine runs about 2.15-2.6 but today it was 3.85. BUN also went up from baseline around 25-37. Electrolytes are in normal range. Patient demo event specialist is Dr. Monae and PCP Dr. Bose. Patient was not able to stand up on his legs in the morning and felt like his legs are not supporting it.Patient felt gradual increased weakness for past 3 weeks. No stroke walk wants to be put in a rehab facility. 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 Patient also has bilateral hip replacement and left shoulder surgery and needs pain medications. 2.15-2.5 PFSH Medical History (HFpEF) heart failure with preserved ejection fraction Acidosis, lactic Acute hypotension Anemia of chronic disease Ascites Atherosclerotic heart disease of havasupai coronary artery without angina pectoris Atrial fibrillation Atrial flutter with rapid ventricular response (02/02/21) Cellulitis Chronic renal failure, stage 3 (moderate) Cirrhosis Coronary artery disease Gout History of non-ST elevation myocardial infarction (NSTEMI) (12/29/20) Kidney disease Morbid obesity Multiple falls Nonsustained paroxysmal ventricular tachycardia (12/2020) Right hip pain Venous insufficiency Vertigo, central Home Medications cyclobenzaprine 10 mg tablet 10 mg PO TID PRN MUSCLE SPASMS 06/19/22 [History Last Taken 02/06/23] ondansetron 4 mg disintegrating tablet 4 mg PO Q8H PRN NAUSEA 06/19/22 [History Last Taken 02/07/23] apixaban 5 mg tablet (Eliquis) 5 mg PO BID BLOOD THINNER 07/20/22 [History Last Taken 02/08/23] allopurinol 300 mg tablet 300 mg PO DAILY GOUT 11/04/22 [History Last Taken 02/08/23] furosemide 40 mg tablet 80 mg PO DAILY FLUID 11/04/22 [History Last Taken 02/08/23] oxycodone 10 mg tablet 10 mg PO TID BREAKTHROUGH PAIN 11/06/22 [History Last Taken 02/07/23] tacrolimus 0.5 mg capsule, immediate-release 0.5 mg PO 0900,2100 LIVER TRANSPLANT 11/06/22 [History Last Taken 02/08/23] amlodipine 5 mg tablet 5 mg PO DAILY #60 tabs 11/07/22 [Rx Last Taken 02/08/23] aspirin 81 mg tablet,delayed release 81 mg PO BREAKFAST #60 tabs 11/07/22 [Rx Last Taken 02/07/23] ursodiol 300 mg capsule 300 mg PO BID #60 caps 11/13/22 [Rx Last Taken 02/08/23] sulfamethoxazole 400 mg-trimethoprim 80 mg tablet 1 tab PO DAILY LIVER TRANSPLANT #90 tabs 11/20/22 [Rx Last Taken 02/08/23] famotidine 20 mg tablet (Pepcid AC) 20 mg PO BID ACID REFLUX 11/27/22 [History Last Taken 02/08/23] metoprolol tartrate 50 mg tablet 50 mg PO BID BLOOD PRESSURE #180 tabs 11/27/22 [Rx Last Taken 02/08/23] nitroglycerin 0.4 mg sublingual tablet 0.4 mg sublingual Q5M PRN chest pain #25 tabs 11/27/22 [Rx Last Taken Unknown] metronidazole 500 mg tablet 500 mg PO DAILY #30 tabs 12/07/22 [Rx Last Taken 02/07/23] neomycin 500 mg tablet 500 mg PO BID #60 tabs 12/07/22 [Rx Last Taken 02/08/23] amiodarone 200 mg tablet See Rx Instructions .Route .COMPLEX #60 TABLETS 01/15/23 [Rx Last Taken 02/07/23] citalopram 10 mg tablet 10 mg PO DAILY MOOD 02/08/23 [History Last Taken Unknown] Allergy/AdvReac Type Severity Reaction Status Date / Time pravastatin [From Pravachol] Allergy Hives Verified 11/27/22 12:57 [id number]-[id number]-CiC Reductase Allergy Hives Verified 11/27/22 12:57 Inhibitor [Enaesum-Idi-Fxt Reductase Inhibitor] vancomycin Allergy NEEDS Verified 11/27/22 12:57 FOLLOW-UP zolpidem tartrate Allergy Hives Verified 11/27/22 12:57 [From Ambien] everolimus AdvReac Swelling Verified 11/27/22 12:57 gabapentin AdvReac NEEDS Verified 11/27/22 12:57 FOLLOW-UP Family History Mother Heart disease Father Heart disease Surgical History H/O shoulder surgery History of cardioversion (02/02/21) History of cataract extraction with lens replacement (~11/22/22) History of hip surgery Liver transplant recipient Status post liver transplant (07/2017) Social History household members: spouse Smoking Status: Never smoker alcohol intake: former substance use type: does not use caffeine: No ROS ROS Narrative Constitutional: Reports fatigue and weakness. No fever. HEENT: Reports systems reviewed and no addt'l complaints, except as documented Respiratory/Chest: No acute shortness of breath or respiratory distress or wheezing. CVS: Chronic leg swelling and heart failure. Leg swelling is better. No chest pain or tightness. Gastrointestinal: Denies coffee ground emesis, hematemesis or vomiting Genitourinary: Urinary amount has decreased for last 1 or 2 weeks. Dark-colored urine. Denies burning urination or new urinary tract symptoms Musculoskeletal: Chronic back pain and hip pain. On pain medications. No acute injury Neurologic: Denies seizure-like symptoms. No acute strokelike symptoms. skin: No ulcer. No rash Endocrinology: Reports systems reviewed and no addt'l complaints, except as documented Hematologic/Lymphatic: Reports systems reviewed and no addt'l complaints, except as documented Rest 14 ROS are negative except as mentioned in HPI Vital Signs Vital Signs Vital Signs: 02/08/23 10:41 02/08/23 10:43 02/08/23 12:54 Temperature 97.8 F Temperature Source Temporal Pulse Rate 53 L Respiratory Rate 18 Respiratory Effort Normal Blood Pressure 103/71 100/59 L Blood Pressure Mean 81 72 Pulse Ox 94 Oxygen Delivery Method Room Air 02/08/23 14:28 Temperature Temperature Source Pulse Rate 56 L Respiratory Rate 18 Respiratory Effort Blood Pressure 112/65 Blood Pressure Mean 80 Pulse Ox 97 Oxygen Delivery Method Room Air Weight Weight: 346 lb 2.012 oz Body Mass Index (BMI) 49.6 Physical Exam Narrative General: Alert, Oriented x3, Cooperative, morbid obesity BMI 49.7 kg/m? HEENT: Atraumatic, PERRLA, EOMI, Normocephalic Oral: Oral mucosa dry. No Gingival or Mucosal Lesions/ Ulcerations Neck: Supple, No JVD, Negative Carotid Bruits Lungs: Air entry diminished in bilateral lung bases due to obesity. No crepitation/rhonchi Cardiovascular: Regular rate, Regular Rhythm, Normal S1, Normal S2, No murmurs Abdomen: Bowel Sounds Present, Soft, Non Tender, Non-Distended. Fat abdomen. : No renal angle tenderness. No suprapubic tenderness. Extremities: Bilateral 2+ pitting edema in lower legs. Capillary Refill Less than 3 Seconds Skin: No rashes, No breakdown Musculoskeletal: Bilateral hip replacement. ROM restricted. Muscle strength 4/5 at hip and knee joints. No acute tenderness to Palpation of Joints or Extremities Neurological: Cranial nerves II-XII grossly intact, DTR 2+/4 and Symmetrical, Neuro grossly intact Psych/Mental Status: Normal Affect, Appropriate. Results Lab / Micro Data Result Diagrams: 02/08/23 11:49 02/08/23 11:49 Labs: Laboratory Results - last 24 hr 02/08/23 11:49: WBC 9.0, RBC 3.99 L, Hgb 12.3 L, Hct 37.7 L, MCV 94.5 H, MCH 30.8, MCHC 32.6, RDW Std Deviation 50.5 H, RDW Coeff of Maciel 14.6, Plt Count 349, MPV 10.4, Immature Gran % (Auto) 0.300, Neut % (Auto) 66.9, Lymph % (Auto) 21.3, Sac % (Auto) 8.0, Eos % (Auto) 3.2, Baso % (Auto) 0.3, Absolute Neuts (auto) 6.0, Absolute Lymphs (auto) 1.92, Nucleated RBC % 0 02/08/23 11:49: Sodium 136, Potassium 4.8, Chloride 103, Carbon Dioxide 27.0, Anion Gap 6, BUN 37 H, Creatinine 3.85 H, Estim Creat Clear Calc 20.54, Est GFR (MDRD) Af Amer 21 L, Est GFR (MDRD) Non-Af 17 L, BUN/Creatinine Ratio 9.6 L, Glucose 173 H, Calcium 9.0, Total Bilirubin 0.50, AST 14 L, ALT 12 L, Alkaline Phosphatase 112, Total Protein 6.4, Albumin 2.2 L, Globulin 4.2, Albumin/Globulin Ratio 0.5 L 02/08/23 11:49: Ammonia 67.0 H 02/08/23 12:30: Urine Color Yellow, Urine Clarity Sl. Cloudy, Urine pH 5.0, Ur Specific [place] 1.020, Urine Protein Negative, Urine Glucose (UA) Normal, Urine Ketones Negative, Urine Occult Blood Negative, Urine Nitrite Negative, Urine Bilirubin 1 H, Urine Urobilinogen Normal, Ur Leukocyte Esterase 25 H, Urine RBC 0 SEEN, Urine WBC 0-5 SEEN, Ur Squamous Epith Cells 0 SEEN, Urine Bacteria 0 SEEN, Urine Mucus 0 SEEN Radiology Impression Chest X-Ray 02/08/23 12:00 IMPRESSION: No radiographic evidence of acute cardiopulmonary disease. Electronically Signed: Ly Yeung MD at 12:13 EDT , Assessment & Plan Assessment/Plan (1) Adult failure to thrive: (2) AISSATOU (acute kidney injury): PLAN: Plan This is a 62-year-old gentleman being admitted for increased weakness over 3 weeks and AISSATOU on CKD. 1. Acute kidney injury on CKD stage IIIa: Patient is being admitted on MedSurg floor. Patient baseline creatinine runs about 2.15-2.6 but today it was 3.85. BUN also went up from baseline around 25-37. Electrolytes are in normal range. IV fluid normal saline judiciously at 75 mill per hour for 1 L. Hold Lasix. Patient had 1 L normal saline bolus in ED. hold famotidine. 2. Generalized weakness, adult failure to thrive, degenerative arthritis of bilateral lower extremity lumbar spine: Patient requested his home medication oxycodone to be continue with activities as it helps in controlling pain and Flexeril. Patient on allopurinol. 3. Cardiac conditions: Paroxysmal A-fib/atrial flutter status post cardioversion on Eliquis, history of non-STEMI chronic HFpEF: Patient does not have chest pressure tightness or acute shortness of breath. Leg swelling is better than before. On baby aspirin, metoprolol, amiodarone dose, continued. Eliquis decreased to 2.5 mg twice daily because of kidney failure. Patient follows Dr. Thomas. Chest x-ray does not show acute abnormality. Twelve-lead EKG shows sinus rhythm with first-degree AV block, PVC, PAC with low voltage QRS. 4. History of liver transplant on tacrolimus, Bactrim ? In 2017, the patient had liver transplant because of NAFLD/FELIPE cirrhosis and alpha-1 antitrypsin deficiency. Metal Dealer is consulted for appropriate dosing. Patient on tacrolimus 0.5 mg twice daily, continued. Bactrim dose decreased to half tablet twice daily. Patient follows with Dr. Bales. Patient controlled lactulose and Flagyl continued. Neomycin held. 5.? Morbid obesity with BMI 49.7 kg/m? ? Weight loss advised 6.? Hypertension - Blood pressure controlled, home medications continued with dose adjustment as needed 7.? DVT prophylaxis ? Patient is on Eliquis dosage adjusted decreased to 2.5 mg twice daily because of kidney failure Living will/advanced directive/end of life care: Patient does have living will or advanced directive. His power of trial attorney for health is his . After discussion of benefits/risks procedures involved with full code, DNR CC arrest and DNR CC, the patient opted for full code. Patient does want artificial life support including intubation, tube feed, ventilator and/chest compression, central venous catheter, vasopressor and DC shock if needed Total time spent in [id number] encounter in discussion of advanced directive 17 minutes. Laboratory Results 02/08/23 11:49: WBC 9.0, RBC 3.99 L, Hgb 12.3 L, Hct 37.7 L, MCV 94.5 H, MCH 30.8, MCHC 32.6, RDW Std Deviation 50.5 H, RDW Coeff of Maciel 14.6, Plt Count 349, MPV 10.4, Immature Gran % (Auto) 0.300, Neut % (Auto) 66.9, Lymph % (Auto) 21.3, Sac % (Auto) 8.0, Eos % (Auto) 3.2, Baso % (Auto) 0.3, Absolute Neuts (auto) 6.0, Absolute Lymphs (auto) 1.92, Nucleated RBC % 0 02/08/23 11:49: Sodium 136, Potassium 4.8, Chloride 103, Carbon Dioxide 27.0, Anion Gap 6, BUN 37 H, Creatinine 3.85 H, Estim Creat Clear Calc 20.54, Est GFR (MDRD) Af Amer 21 L, Est GFR (MDRD) Non-Af 17 L, BUN/Creatinine Ratio 9.6 L, Glucose 173 H, Calcium 9.0, Total Bilirubin 0.50, AST 14 L, ALT 12 L, Alkaline Phosphatase 112, Total Protein 6.4, Albumin 2.2 L, Globulin 4.2, Albumin/Globulin Ratio 0.5 L 02/08/23 11:49: Ammonia 67.0 H 02/08/23 12:30: Urine Color Yellow, Urine Clarity Sl. Cloudy, Urine pH 5.0, Ur Specific [place] 1.020, Urine Protein Negative, Urine Glucose (UA) Normal, Urine Ketones Negative, Urine Occult Blood Negative, Urine Nitrite Negative, Urine Bilirubin 1 H, Urine Urobilinogen Normal, Ur Leukocyte Esterase 25 H, Urine RBC 0 SEEN, Urine WBC 0-5 SEEN, Ur Squamous Epith Cells 0 SEEN, Urine Bacteria 0 SEEN, Urine Mucus 0 SEEN Clinical Impression(s) from Imaging Studies Chest X-Ray 02/08/23 12:00 IMPRESSION: No radiographic evidence of acute cardiopulmonary disease. Charges/Coding Visit Charges Inpatient E&M: 39773 Init Hosp L3 Procedures Hospitalists Procedures: 82949 Advncd Care Plan 30 Min
[2023-02-08 16:50] LABS: Magnesium 1.6 mg/dL (1.6-2.6); Phosphorus 2.6 mg/dL (2.5-4.9)
[2023-02-08] MEDS: Tacrolimus 0.5 MG Capsule PO (21:30)
[2023-02-08] MEDS: Ursodiol 250 MG Tablet PO (22:40)
[2023-02-08] MEDS: APIXABAN 2.5 MG TABLET (WCH) PO (22:41)
[2023-02-08] MEDS: Metoprolol Tartrate 50 MG Tablet PO (22:41)
[2023-02-09] VITALS (7 sets, daily range): BP systolic 94–117; BP diastolic 38–61; PULSE 57–64; RESP 18; TEMP 36.5–36.8; O2SAT 97–100; BMI 48.4
[2023-02-09] MEDS: OXYCODONE HCL 10 MG PO ×2 (01:06→20:11)
[2023-02-09 06:06] LABS: Absolute Lymphocyte Count 2.07 X10^3/uL (0.83-4.51); Absolute Neutrophil Count 4.4 X10^3/uL (2.0-7.7); Basophil# 0.05 X10^3/uL; Basophil% 0.7 % (0-1); Eosinophil# 0.28 X10^3/uL; Eosinophils% 3.7 % (0-5); Hematocrit 34.8 % (40-54); Hemoglobin 11.4 g/dL (13.0-16.5); Lymphocyte # 2.07 X10^3/ul (0.83-4.51); Lymphocyte % 27.5 % (19-41); Mean Corp Hgb Conc 32.8 g/dL (32-36); Mean Corpuscular Hgb 31.3 pg (27.0-32.0); Mean Corpuscular Volume 95.6 fL (80-94); Mean Platelet Vol. 10.2 fl (6.2-12.0); Monocyte# 0.65 X10^3/uL; Monocyte% 8.6 % (0-10); NRBC Flagged by Analyzer 0 % (0-5); Neutrophil # 4.44 X10^3/uL (2.7-7.7); Neutrophil % 59.1 % (47-70); Platelet Count 314 K/mm3 (150-450); RBC Distribution Width CV 14.4 % (11.6-14.6); Red Blood Count 3.64 M/mm3 (4.6-6.2); White Blood Count 7.5 K/mm3 (4.4-11.0)
[2023-02-09 06:41] LABS: Anion Gap 7 (5-15); BUN 34 mg/dL (7-18); BUN/Creat Ratio 9.8 RATIO (10-20); Calcium,Total 8.3 mg/dL (8.5-10.1); Chloride 104 mmol/L (98-107); Creatinine, Serum 3.48 mg/dL (0.70-1.30); EST Glomerular Filtration Rate 19 mL/min (>60); Est Glom Filt Rate - Afr Amer 23 mL/min (>60); Estimated Creatinine Clearance 22.73 ml/min; Glucose 122 mg/dL (74-106); Sodium Level 135 mmol/L (136-145)
[2023-02-09] MEDS: Allopurinol 100 MG Tablet PO (08:20)
[2023-02-09] MEDS: Smz/Tmp Ds Tablet 0.5 TABLET PO (08:21)
[2023-02-09] MEDS: Tacrolimus 0.5 MG Capsule PO ×2 (09:09→21:35)
[2023-02-09] MEDS: Citalopram 10 MG Tablet PO (09:52)
[2023-02-09] MEDS: Ursodiol 250 MG Tablet PO ×2 (09:53→21:37)
[2023-02-09] MEDS: metroNIDAZOLE 500 MG Tablet PO (09:53)
[2023-02-09] MEDS: APIXABAN 2.5 MG TABLET (WCH) PO ×2 (09:54→21:36)
--- NOTE | 2023-02-09 11:20 | CASEMGMT ---
RN EDWARDO Face to Face with patient for initial transition planning/care coordination assessment. RN CM introduced self and role at [facility]. Patient lying in bed, alert and oriented, and daughter at bedside. Patient willing to participate in assessment and is able to answer all questions appropriately. Care providers, pharmacy, and demographics verified. Patient wishes to discharge home with outpatient therapy at [facility] as scheduled. Patient states he has no further needs or concerns at this time. CM to follow for discharge planning needs that may arise. PCP: Juice Specialists: Tyshawn pain Preferred Pharmacy: [facility] Insurance: [employer] [facility] Prescription Benefit: yes Living Will/HPOA: yes, Sheba Howard LNOK: , daughter Living Arrangements: Patient lives with in a mobile home with ramp and 1 step to enter the home. assists patient with ADLs as it takes him a long time to complete on own Transportation: DME/HHC: Patient has shower chair, raised toilet, cane, grab bars , walker, rollator, wheelchair, scooter. Patient has previously been [facility]. Patient has had [facility]HC in the past. Disposition Plan: Patient to discharge home with resumption of outpatient therapy, family support, and follow-up plans in place. Rolanda CULLEN, RN, CM
--- NOTE | 2023-02-09 13:44 | PCM.PROGNOTE ---
Subjective Subjective Patient seen and examined. He had no complaints. He was admitted with a complaint of weakness and found to have AISSATOU. He has been managed for weakness and debility. He feels better today and had no active events overnight. He denies any fever, chills, nausea vomiting or any other symptoms. Review systems otherwise negative. Blood pressure running low this morning at 94/45. Blood pressure medications held. Objective Data Objective Data Vital Signs: Vital Signs Temp Pulse Resp BP Pulse Ox O2 Del Method 97.7 F L 62 18 94/45 L 100 Room Air 02/09/23 09:49 02/09/23 11:18 02/09/23 09:49 02/09/23 11:18 02/09/23 11:18 02/09/23 11:18 Oxygen Delivery Method Room Air Weight: 337 lb 15.498 oz Body Mass Index (BMI) 48.4 Intake & Output: Intake and Output for Last 24 Hours 02/07/23 02/08/23 02/09/23 23:59 23:59 23:59 Intake Total 1000 / 1530 530 / 530 Output Total 700 / 700 Balance 1000 / 1230 -170 / -170 Lab / Micro Data Result Diagrams: 02/09/23 05:15 02/09/23 05:15 Labs: Laboratory Results - last 24 hr 02/08/23 11:49: Phosphorus 2.6, Magnesium 1.6 02/09/23 05:15: WBC 7.5, RBC 3.64 L, Hgb 11.4 L, Hct 34.8 L, MCV 95.6 H, MCH 31.3, MCHC 32.8, RDW Std Deviation 50.0 H, RDW Coeff of Maciel 14.4, Plt Count 314, MPV 10.2, Immature Gran % (Auto) 0.400, Neut % (Auto) 59.1, Lymph % (Auto) 27.5, [place] % (Auto) 8.6, Eos % (Auto) 3.7, Baso % (Auto) 0.7, Absolute Neuts (auto) 4.4, Absolute Lymphs (auto) 2.07, Nucleated RBC % 0 02/09/23 05:15: Sodium 135 L, Potassium 4.0, Chloride 104, Carbon Dioxide 24.0, Anion Gap 7, BUN 34 H, Creatinine 3.48 H, Estim Creat Clear Calc 22.73, Est GFR (MDRD) Af Amer 23 L, Est GFR (MDRD) Non-Af 19 L, BUN/Creatinine Ratio 9.8 L, Glucose 122 H, Calcium 8.3 L Physical Exam Const alert, oriented x3 and no apparent distress General Appearance: cooperative and well developed HEENT normocephalic, head/scalp atraumatic and moist oral mucous membranes Eyes PERRL and EOMs intact bilaterally Neck no lymphadenopathy, supple and no JVD Lymph Lymphatic: no lymphadenopathy noted Resp normal respiratory effort, normal air movement and clear to auscultation bilaterally Cardio regular rate, regular rhythm, S1 normal heart sound, S2 normal heart sound and no murmurs GI normal to inspection, nondistended, normoactive bowel sounds, soft to palpation and non-tender Extremity normal capillary refill, no clubbing, cyanosis or edema and no calf tenderness Skin General Skin Exam: no breakdown Neuro CN's II-XII intact bilaterally, no focal motor deficits and no sensory deficits noted Motor Exam: strength 5/5 throughout Psych thought process normal and cooperative Appearance: appropriate Assessment & Plan Assessment/Plan (1) Adult failure to thrive: (2) Weakness: (3) AISSATOU (acute kidney injury): PLAN: Plan #AISSATOU on CKD IIIA Creatinine was 3.85 on admission. Baseline is around 2.15. Being hydrated with IV fluids. Lasix on hold. Will trend creatinine. CR has trended down slightly to 3.48 today. Continue gentle hydration #Debility and failure to thrive: PT OT on board. Fall precautions. #Paroxysmal A-fib: On Eliquis. On metoprolol and amiodarone #Heart failure preserved ejection fraction: On aspirin and metoprolol. Lasix on hold due to AISSATOU on CKD stage III #History of liver transplant on account of nonalcoholic steatohepatitis and alpha-1 antitrypsin deficiency On tacrolimus and Bactrim. Also on lactulose and Flagyl. #Hypertension: On metoprolol DVT prophylaxis: Eliquis and renally adjusted dose. Charges/Coding Visit Charges Inpatient E&M: 29821 Subs Hosp L2
--- NOTE | 2023-02-09 14:32 | CASEMGMT ---
Social Work SW met w/pt in in room to review discharge options. SW spoke w/them about the possibility of pt going to SNF, as pt walked one foot with therapy and needed assist. Pt and open to reviewing SNF list. SW printed list via [employer] of nursing homes in pt's insurance network, preferred geographic area, and complete with quality and resource use data. SW brought the list back in, stepped out. Pt states is not certain what he wants to do, will review list and speak w/his . SW explained if he is moving well enough and pt is medically ready, he can be discharged home tomorrow. If however he is not managing well enough and needs to go to SNF, to let physician know. SW will then follow up w/pt on Saturday w/pt for halfway choices, and make referrals. Pt states understanding. ESTER Costello
--- NOTE | 2023-02-09 19:15 | PCM.CONS.R ---
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 The patient presented to the hospital with generalized weakness and AISSATOU on CKD on 02/08/2023. Nephrology is following for acute kidney injury on chronic kidney disease. Acute kidney injury on chronic kidney disease stage G3b. Baseline serum creatinine has been around 2.5 to 2.6 mg/dL. The patient presented to the hospital on 02/08/2023 with serum creatinine of 3.85 mg/dL. Urinalysis showed concentrated urine with no RBCs or proteinuria. Suspect AISSATOU is prerenal or ischemic ATN from relative hypotension and decreased oral intake. I will check urine indices. I will check renal ultrasound to be complete. I have low suspicion for acute tacrolimus nephrotoxicity, but I will also check tacrolimus trough level tomorrow. Supratherapeutic tacrolimus level can cause vasoconstriction and AISSATOU. Keep MAP above 65 mmHg. Continue to encourage oral solute/fluid intake. No need for kidney replacement therapy currently. Serum creatinine has stabilized in the last 24 hours and is 3.48 mg/dL earlier today. If renal function fails to improve further tomorrow, I will consider giving additional IV fluid boluses. Current medications are reviewed and are appropriate dose for the patient's current renal function. Hypertension. BP is on the lower side although MAP is still above 65 mmHg. We can continue amlodipine and metoprolol for now. ESLD status post liver transplantation. The patient was transplanted in July 2017 at [facility]. The patient is suppressed with tacrolimus only. As mentioned above, we will check tacrolimus trough since the patient has AISSATOU. HPI Consult Data Date of Consult: 02/09/23 HPI Narrative Reason for Consultation: Acute kidney injury HPI Narrative: The patient is a 62-year-old man who has past history of end-stage liver disease due to nonalcoholic steatohepatitis and alpha-1 antitrypsin deficiency, status post liver transplant, hypertension, CAD, heart failure with preserved ejection fraction, rheumatoid arthritis, gout, and chronic kidney disease. The patient presented to the hospital on 02/08/2023 with generalized weakness and AISSATOU on CKD. Nephrology is asked to evaluate the patient for acute kidney injury on chronic kidney disease. Baseline serum creatinine has been around 2.5 to 2.6 mg/dL and is followed by Dr. Verenice Monae as outpatient. However, outpatient lab from 02/08/2023 showed serum creatinine of 3.85 mg/dL. The patient denies chest pain. He has baseline dyspnea on exertion which has not increased in severity. There has been no diarrhea. He has nausea but no recent vomiting. Appetite has been poor prior to admission. He denies increasing lower extremity edema. He denies lower urinary tract symptoms. Prior to admission, the patient had been on furosemide. He was not on ROSANNA inhibitor or ARB. The patient is immunosuppressed with tacrolimus only. He is not on prednisone or mycophenolate. The patient denies recent change in the dosages of his medications. BP has been lower than usual during this admission compared to prior admissions. [facility] Medical History (HFpEF) heart failure with preserved ejection fraction Acidosis, lactic Acute hypotension Anemia of chronic disease Ascites Atherosclerotic heart disease of [place] coronary artery without angina pectoris Atrial fibrillation Atrial flutter with rapid ventricular response (02/02/21) Cellulitis Chronic renal failure, stage 3 (moderate) Cirrhosis Coronary artery disease Gout History of non-ST elevation myocardial infarction (NSTEMI) (12/29/20) Kidney disease Morbid obesity Multiple falls Nonsustained paroxysmal ventricular tachycardia (12/2020) Right hip pain Venous insufficiency Vertigo, central Home Medications cyclobenzaprine 10 mg tablet 10 mg PO TID PRN MUSCLE SPASMS 06/19/22 [History Last Taken 02/06/23] ondansetron 4 mg disintegrating tablet 4 mg PO Q8H PRN NAUSEA 06/19/22 [History Last Taken 02/07/23] apixaban 5 mg tablet (Eliquis) 5 mg PO BID BLOOD THINNER 07/20/22 [History Last Taken 02/08/23] allopurinol 300 mg tablet 300 mg PO DAILY GOUT 11/04/22 [History Last Taken 02/08/23] furosemide 40 mg tablet 80 mg PO DAILY FLUID 11/04/22 [History Last Taken 02/08/23] oxycodone 10 mg tablet 10 mg PO TID BREAKTHROUGH PAIN 11/06/22 [History Last Taken 02/07/23] tacrolimus 0.5 mg capsule, immediate-release 0.5 mg PO 0900,2100 LIVER TRANSPLANT 11/06/22 [History Last Taken 02/08/23] amlodipine 5 mg tablet 5 mg PO DAILY #60 tabs 11/07/22 [Rx Last Taken 02/08/23] aspirin 81 mg tablet,delayed release 81 mg PO BREAKFAST #60 tabs 11/07/22 [Rx Last Taken 02/07/23] ursodiol 300 mg capsule 300 mg PO BID #60 caps 11/13/22 [Rx Last Taken 02/08/23] sulfamethoxazole 400 mg-trimethoprim 80 mg tablet 1 tab PO DAILY LIVER TRANSPLANT #90 tabs 11/20/22 [Rx Last Taken 02/08/23] famotidine 20 mg tablet (Pepcid AC) 20 mg PO BID ACID REFLUX 11/27/22 [History Last Taken 02/08/23] metoprolol tartrate 50 mg tablet 50 mg PO BID BLOOD PRESSURE #180 tabs 11/27/22 [Rx Last Taken 02/08/23] nitroglycerin 0.4 mg sublingual tablet 0.4 mg sublingual Q5M PRN chest pain #25 tabs 11/27/22 [Rx Last Taken Unknown] metronidazole 500 mg tablet 500 mg PO DAILY #30 tabs 12/07/22 [Rx Last Taken 02/07/23] neomycin 500 mg tablet 500 mg PO BID #60 tabs 12/07/22 [Rx Last Taken 02/08/23] amiodarone 200 mg tablet See Rx Instructions .Route .COMPLEX #60 TABLETS 01/15/23 [Rx Last Taken 02/07/23] citalopram 10 mg tablet 10 mg PO DAILY MOOD 02/08/23 [History Last Taken Unknown] Allergy/AdvReac Type Severity Reaction Status Date / Time morphine Allergy Hives Verified 02/08/23 21:23 pravastatin [From Pravachol] Allergy Hives Verified 11/27/22 12:57 Zrvdxrx-ADJ-HfX Reductase Allergy Hives Verified 11/27/22 12:57 Inhibitor [Awirmec-Qag-Sat Reductase Inhibitor] vancomycin Allergy NEEDS Verified 11/27/22 12:57 FOLLOW-UP zolpidem tartrate Allergy Hives Verified 11/27/22 12:57 [From Ambien] everolimus AdvReac Swelling Verified 11/27/22 12:57 gabapentin AdvReac NEEDS Verified 11/27/22 12:57 FOLLOW-UP Family History Mother Heart disease Father Heart disease Surgical History H/O shoulder surgery History of cardioversion (02/02/21) History of cataract extraction with lens replacement (~11/22/22) History of hip surgery Liver transplant recipient Status post liver transplant (07/2017) Social History household members: spouse Smoking Status: Never smoker alcohol intake: former substance use type: does not use caffeine: No ROS ROS Narrative Constitutional: There is no weight loss, the patient does complain of fatigue and malaise. There is no lethargy. HEENT: No visual change, double vision, scotomas. No rhinorrhea, epistaxis, or sinus pain. No tinnitus or hearing loss. No sore throat, odynophagia or gingival bleeding. Cardiovascular: No chest pain, shortness of breath at rest, PND, orthopnea, edema, palpitation, or claudication. Respiratory: No cough, sputum, wheeze, hemoptysis. Gastrointestinal: No abdominal pain, dysphagia, anorexia, nausea, vomiting, diarrhea, constipation, obstipation, hematemesis, hematochezia, melena, or tenesmus. Genitourinary: No incontinence, dysuria, gross hematuria, polyuria, or hesitancy. Musculoskeletal: No stiffness, pain, joint swelling, decreased range of motion, crepitus, or functional deficit. Integumentary: No pruritus, rash, striae, wound, incision, acanthosis, tumors, or eczema. Neurological: No change in sight, smell, hearing, taste. There is no seizure, headache, numbness, poor balance, speech problem, cognitive disturbance. Psychiatric: No depression, anxiety, paranoia, anhedonia, or mable. Endocrine: No temperature intolerance, polydipsia, polyuria, polyphagia. Hematologic: No purpura, petechia, prolonged bleeding, or blood clots. Physical Exam Narrative General: Alert and oriented x3, NAD. HEENT: Normocephalic, atraumatic. Mucous membrane moist without erythema. PERRLA, EOMI. Hearing is intact. Neck: Supple, no JVD. Trachea is midline. No thyromegaly or lymphadenopathy. Cardiovascular: Normal S1, S2. No rubs, murmurs, or gallops. Respiratory: Lungs are clear to auscultation anteriorly. No wheezing, rhonchi, or rales. Abdomen: Normal bowel sounds, soft, nontender, no guarding or rebound, no organomegaly. Extremities: No clubbing, cyanosis, or edema. Musculoskeletal: Full passive range of motion, no joint swelling. Psychiatric: Normal mood and affect. Skin: Warm and dry, no rash. Neurologic: Cranial nerve II to XII are grossly intact. No focal neurologic deficits. Lab / Micro Data Result Diagrams: 02/09/23 05:15 02/09/23 05:15 Labs: Laboratory Results - last 24 hr 02/09/23 05:15: WBC 7.5, RBC 3.64 L, Hgb 11.4 L, Hct 34.8 L, MCV 95.6 H, MCH 31.3, MCHC 32.8, RDW Std Deviation 50.0 H, RDW Coeff of Maciel 14.4, Plt Count 314, MPV 10.2, Immature Gran % (Auto) 0.400, Neut % (Auto) 59.1, Lymph % (Auto) 27.5, [place] % (Auto) 8.6, Eos % (Auto) 3.7, Baso % (Auto) 0.7, Absolute Neuts (auto) 4.4, Absolute Lymphs (auto) 2.07, Nucleated RBC % 0 02/09/23 05:15: Sodium 135 L, Potassium 4.0, Chloride 104, Carbon Dioxide 24.0, Anion Gap 7, BUN 34 H, Creatinine 3.48 H, Estim Creat Clear Calc 22.73, Est GFR (MDRD) Af Amer 23 L, Est GFR (MDRD) Non-Af 19 L, BUN/Creatinine Ratio 9.8 L, Glucose 122 H, Calcium 8.3 L
[2023-02-09] MEDS: cycloBENZAPRine HCl 10 MG Tablet PO (20:11)
[2023-02-09 21:06] LABS: Urine Sodium 13 mmol/L (Not Establ.)
[2023-02-09] MEDS: Aspirin E.C. 81 MG Tablet PO (21:36)
[2023-02-09] MEDS: Metoprolol Tartrate 50 MG Tablet PO (21:37)
[2023-02-10] VITALS (7 sets, daily range): BP systolic 103–115; BP diastolic 40–61; PULSE 61–66; RESP 16–18; TEMP 36.5–37; O2SAT 94–99; BMI 47.9
[2023-02-10 06:42] LABS: BUN 36 mg/dL (7-18); BUN/Creat Ratio 9.2 RATIO (10-20); Calcium,Total 8.6 mg/dL (8.5-10.1); Chloride 102 mmol/L (98-107); Creatinine, Serum 3.93 mg/dL (0.70-1.30); EST Glomerular Filtration Rate 17 mL/min (>60); Est Glom Filt Rate - Afr Amer 20 mL/min (>60); Estimated Creatinine Clearance 20.12 ml/min; Glucose 122 mg/dL (74-106); Phosphorus 3.5 mg/dL (2.5-4.9); Potassium 4.1 mmol/L (3.5-5.1); Sodium Level 135 mmol/L (136-145)
[2023-02-10] MEDS: Tacrolimus 0.5 MG Capsule PO ×2 (08:36→22:51)
[2023-02-10] MEDS: Allopurinol 100 MG Tablet PO (08:37)
[2023-02-10] MEDS: Smz/Tmp Ds Tablet 0.5 TABLET PO (08:37)
[2023-02-10] MEDS: Ondansetron ODT 4 MG Tablet PO (10:52)
[2023-02-10] MEDS: OXYCODONE HCL 10 MG PO ×2 (10:52→18:52)
[2023-02-10] MEDS: Ursodiol 250 MG Tablet PO ×2 (10:55→22:52)
[2023-02-10] MEDS: Citalopram 10 MG Tablet PO (10:56)
[2023-02-10] MEDS: metroNIDAZOLE 500 MG Tablet PO (10:56)
[2023-02-10] MEDS: APIXABAN 2.5 MG TABLET (WCH) PO ×2 (10:56→22:51)
[2023-02-10] MEDS: 0.9% Saline Lock 10 ML Syringe IV (13:17)
[2023-02-10] MEDS: 0.9% Normal Saline 1,000 ML 100 ML IV ×2 (13:17→22:54)
[2023-02-10] MEDS: cycloBENZAPRine HCl 10 MG Tablet PO (16:27)
[2023-02-10] MEDS: Aspirin E.C. 81 MG Tablet PO (22:53)
[2023-02-10] MEDS: Metoprolol Tartrate 50 MG Tablet PO (22:53)
[2023-02-11] VITALS (7 sets, daily range): BP systolic 94–107; BP diastolic 50–61; PULSE 58–66; RESP 16–20; TEMP 36.4–36.8; O2SAT 95–99; BMI 48.4
[2023-02-11] MEDS: OXYCODONE HCL 10 MG PO ×3 (03:40→20:39)
--- NOTE | 2023-02-11 07:00 | US_ITS ---
STUDY: RENAL ULTRASOUND - COMPLETE REASON FOR EXAM: Male, 62 years old. AISSATOU on CKD TECHNIQUE: Ultrasound evaluation of the kidneys was performed with real-time and static sandoval-scale imaging. COMPARISON: None. FINDINGS: RIGHT KIDNEY: Normal location of the right kidney, which is normal in size. The right kidney measures 11.1 cm x 4.8 cm x 5.6 cm. There is a normal cortex of the right kidney. The renal cortex measures 1.5 cm. There is no right renal mass or cyst. There are no right renal calculi. There is no right hydronephrosis. DISTAL RIGHT URETER: There is non-visualization of the distal right ureter. There is no demonstrated right ureterovesical junction calculus. There is no demonstrated right ureteral jet. LEFT KIDNEY: Normal location of the left kidney, which is normal in size. The left kidney measures 10.1 cm x 5.4 cm x 4.9 cm. There is a normal cortex of the left kidney. The renal cortex measures 1.4 cm. There is a 3 cm x 2.4 cm x 3.2 cm cyst. There are no left renal calculi. There is no left hydronephrosis. DISTAL LEFT URETER: There is non-visualization of the distal left ureter. There is no demonstrated left ureterovesical junction calculus. There is no demonstrated left ureteral jet. BLADDER: A Rodríguez catheter is seen within a decompressed urinary bladder. US/Kidney and Bladder IMPRESSION: 3 cm x 2.4 cm x 3.2 cm left renal cyst. Electronically Signed: Pelon Graham MD at 14:46 EDT ,
[2023-02-11 08:39] LABS: Absolute Lymphocyte Count 1.83 X10^3/uL (0.83-4.51); Absolute Neutrophil Count 4.3 X10^3/uL (2.0-7.7); Basophil# 0.04 X10^3/uL; Basophil% 0.6 % (0-1); Eosinophil# 0.26 X10^3/uL; Eosinophils% 3.6 % (0-5); Hematocrit 33.2 % (40-54); Lymphocyte # 1.83 X10^3/ul (0.83-4.51); Lymphocyte % 25.4 % (19-41); Mean Corp Hgb Conc 33.1 g/dL (32-36); Mean Corpuscular Hgb 31.6 pg (27.0-32.0); Mean Corpuscular Volume 95.4 fL (80-94); Mean Platelet Vol. 9.8 fl (6.2-12.0); Monocyte# 0.71 X10^3/uL; Monocyte% 9.8 % (0-10); NRBC Flagged by Analyzer 0 % (0-5); Neutrophil # 4.34 X10^3/uL (2.7-7.7); Neutrophil % 60.2 % (47-70); Platelet Count 301 K/mm3 (150-450); RBC Distribution Width CV 14.7 % (11.6-14.6); RBC Distribution Width SD 51.2 fl (35.1-43.9); Red Blood Count 3.48 M/mm3 (4.6-6.2); White Blood Count 7.2 K/mm3 (4.4-11.0)
[2023-02-11] MEDS: Citalopram 10 MG Tablet PO (08:43)
[2023-02-11] MEDS: amLODIPine 5 MG Tablet PO ×2 (08:43)
[2023-02-11] MEDS: Smz/Tmp Ds Tablet 0.5 TABLET PO (08:43)
[2023-02-11] MEDS: APIXABAN 2.5 MG TABLET (WCH) PO ×2 (08:43→20:41)
[2023-02-11] MEDS: Tacrolimus 0.5 MG Capsule PO ×2 (08:43→20:37)
[2023-02-11] MEDS: metroNIDAZOLE 500 MG Tablet PO (08:44)
[2023-02-11] MEDS: Amiodarone 200 MG Tablet PO (08:44)
[2023-02-11] MEDS: Ursodiol 250 MG Tablet PO ×2 (08:44→20:37)
[2023-02-11] MEDS: cycloBENZAPRine HCl 10 MG Tablet PO (08:44)
[2023-02-11] MEDS: Allopurinol 100 MG Tablet PO (08:49)
[2023-02-11 09:04] LABS: Anion Gap 7 (5-15); BUN 36 mg/dL (7-18); BUN/Creat Ratio 9.9 RATIO (10-20); Calcium,Total 8.1 mg/dL (8.5-10.1); Chloride 107 mmol/L (98-107); Creatinine, Serum 3.64 mg/dL (0.70-1.30); EST Glomerular Filtration Rate 18 mL/min (>60); Est Glom Filt Rate - Afr Amer 22 mL/min (>60); Estimated Creatinine Clearance 21.73 ml/min; Glucose 114 mg/dL (74-106); Sodium Level 136 mmol/L (136-145)
--- NOTE | 2023-02-11 10:34 | CASEMGMT ---
Social Work SW met with pt and his Sheba and discussed discharge plan. Pt is hopeful he can return home with outpatient therapy at [facility]. SW discussed pt functionality with therapy and that pt required assist of 2 for transfers and ambulation of 1 ft. Pt does acknowledge he may need SNF. Pt preferred provider is [facility] T[facility]. Referral made to [facility] in TCU. SW will await determination of acceptance. Pt will need precert prior to discharge. Plan: TCU, pending acceptance and precert BRAN Valenzuela
--- NOTE | 2023-02-11 12:50 | PN.RENAL_ITS ---
Subjective Subjective The patient is a 62-year-old man who has past history of end-stage liver disease due to nonalcoholic steatohepatitis and alpha-1 antitrypsin deficiency status post liver transplant, hypertension, CAD, heart failure with preserved ejection fraction, rheumatoid arthritis, gout, and chronic kidney disease stage G3b.? The patient presented to the hospital with generalized weakness and AISSATOU on CKD on 02/08/2023.?HE had poor appetite at home for several days. Baseline creatinine in 2-2.5. Lasix discontinued and received iv fluids. Creatinine improved from 3.85 to 3.48 then increased to 3.9 after iv was discontinued. His urine remains dark nolberto. He has chronic leg swelling. He denied SOB. Nausea improved since admit along with appetite. He is very debilitated, difficulty walking. He is morbidly obese. Objective Data Objective Data Vital Signs: Vital Signs Temp Pulse Resp BP Pulse Ox O2 Del Method 97.6 F L 58 L 18 107/61 99 Room Air 02/11/23 08:32 02/11/23 08:44 02/11/23 08:32 02/11/23 08:32 02/11/23 08:32 02/11/23 08:39 Oxygen Delivery Method Room Air Weight: 153.3 kg Body Mass Index (BMI) 48.4 Intake & Output: Intake and Output for Last 24 Hours 02/09/23 02/10/23 02/11/23 23:59 23:59 23:59 Intake Total 830 / 830 1711.67 / 2211.67 2300 / 2300 Output Total 700 / 700 750 / 950 300 / 300 Balance 130 / 130 961.67 / 1261.67 1999 Lab / Micro Data Result Diagrams: 02/11/23 08:25 02/12/23 05:35 Labs: Laboratory Results - last 24 hr 02/11/23 08:25: WBC 7.2, RBC 3.48 L, Hgb 11.0 L, Hct 33.2 L, MCV 95.4 H, MCH 31.6, MCHC 33.1, RDW Std Deviation 51.2 H, RDW Coeff of Maciel 14.7 H, Plt Count 301, MPV 9.8, Immature Gran % (Auto) 0.400, Neut % (Auto) 60.2, Lymph % (Auto) 25.4, [place] % (Auto) 9.8, Eos % (Auto) 3.6, Baso % (Auto) 0.6, Absolute Neuts (auto) 4.3, Absolute Lymphs (auto) 1.83, Nucleated RBC % 0 02/11/23 08:25: Sodium 136, Potassium 4.0, Chloride 107, Carbon Dioxide 22.0, Anion Gap 7, BUN 36 H, Creatinine 3.64 H, Estim Creat Clear Calc 21.73, Est GFR (MDRD) Af Amer 22 L, Est GFR (MDRD) Non-Af 18 L, BUN/Creatinine Ratio 9.9 L, Glucose 114 H, Calcium 8.1 L Physical Exam Const alert and oriented x3 Nutritional Appearance: morbidly obese Resp clear to auscultation bilaterally Cardio regular rate and no rub GI non-tender and non-distended Auscultation: normoactive bowel sounds Palpation: soft Extremity General Extremity: edema bilateral (1-2+) Neuro CN's II-XII intact bilaterally Neuro Narrative: generalized weakness, debilitated Sensorium / Orientation: awake and alert Psych cooperative Assessment & Plan Assessment/Plan (1) AISSATOU (acute kidney injury): PLAN: Creatnine 3.9 improved to 3.48 with iv fluids. Urine sodium low to suggest prerenal event, hepatorenal vs hypoalbuminemia, hemodynamic changes, hypotens ion. Continue to hold lasix for now. Hold amlodipine for low BP. Check FK level, on Bactrim that can also contribute to rise in creatinine along with FK toxicity. (2) Chronic kidney disease, stage 3b: PLAN: baseline creatinine 2 to 2.5 (3) Dehydration: PLAN: iv fluids, dark nolberto urine (4) Adult failure to thrive: (5) Weakness: PLAN: evaluate for PT/OT (6) CAD (coronary artery disease): (7) S/P PTCA (percutaneous transluminal coronary angioplasty): (8) Malaise: (9) Paroxysmal atrial fibrillation: (10) Morbid obesity: (11) FELIPE (nonalcoholic steatohepatitis): PLAN: s/p liver transplant on tacrolimus. Await level. (12) Hyperammonemia: PLAN: lactulose
--- NOTE | 2023-02-11 14:32 | PN_ITS ---
Subjective Subjective Patient seen and examined. He had no complaints and had an uneventful night. Review of systems is otherwise negative. He has remained hemodynamically stable. Objective Data Objective Data Vital Signs: Vital Signs Temp Pulse Resp BP Pulse Ox O2 Del Method 97.7 F L 62 18 94/50 L 98 Room Air 02/11/23 14:25 02/11/23 14:25 02/11/23 14:25 02/11/23 14:25 02/11/23 14:25 02/11/23 14:25 Oxygen Delivery Method Room Air Weight: 337 lb 15.498 oz Body Mass Index (BMI) 48.4 Intake & Output: Intake and Output for Last 24 Hours 02/09/23 02/10/23 02/11/23 23:59 23:59 23:59 Intake Total 830 / 830 1711.67 / 2211.67 2540 / 2540 Output Total 700 / 700 750 / 950 300 / 300 Balance 130 / 130 961.67 / 1261.67 2240 / 2240 Lab / Micro Data Result Diagrams: 02/11/23 08:25 02/11/23 08:25 Labs: Laboratory Results - last 24 hr 02/11/23 08:25: WBC 7.2, RBC 3.48 L, Hgb 11.0 L, Hct 33.2 L, MCV 95.4 H, MCH 31.6, MCHC 33.1, RDW Std Deviation 51.2 H, RDW Coeff of Maciel 14.7 H, Plt Count 301, MPV 9.8, Immature Gran % (Auto) 0.400, Neut % (Auto) 60.2, Lymph % (Auto) 25.4, [place] % (Auto) 9.8, Eos % (Auto) 3.6, Baso % (Auto) 0.6, Absolute Neuts (auto) 4.3, Absolute Lymphs (auto) 1.83, Nucleated RBC % 0 02/11/23 08:25: Sodium 136, Potassium 4.0, Chloride 107, Carbon Dioxide 22.0, Anion Gap 7, BUN 36 H, Creatinine 3.64 H, Estim Creat Clear Calc 21.73, Est GFR (MDRD) Af Amer 22 L, Est GFR (MDRD) Non-Af 18 L, BUN/Creatinine Ratio 9.9 L, Glucose 114 H, Calcium 8.1 L Physical Exam Const alert, oriented x3 and no apparent distress General Appearance: cooperative and well developed HEENT normocephalic, head/scalp atraumatic and moist oral mucous membranes Eyes PERRL and EOMs intact bilaterally Neck no lymphadenopathy, supple and no JVD Lymph Lymphatic: no lymphadenopathy noted Resp normal respiratory effort, normal air movement and clear to auscultation bilaterally Cardio regular rate, regular rhythm, S1 normal heart sound, S2 normal heart sound and no murmurs GI normal to inspection, nondistended, normoactive bowel sounds, soft to palpation and non-tender Extremity normal capillary refill, no clubbing, cyanosis or edema and no calf tenderness Skin General Skin Exam: no breakdown Neuro CN's II-XII intact bilaterally, no focal motor deficits and no sensory deficits noted Motor Exam: strength 5/5 throughout Psych thought process normal and cooperative Appearance: appropriate Assessment & Plan Assessment/Plan (1) Adult failure to thrive: (2) Weakness: (3) AISSATOU (acute kidney injury): PLAN: Plan #AISSATOU on CKD IIIA * Creatinine was 3.64 on admission. Baseline is around 2.15. * Being hydrated with IV fluids. Lasix on hold. * Will trend creatinine. * continue gentle hydration with IVF * nephrology consulted. * #Debility and failure to thrive: PT OT on board. Fall precautions. #Paroxysmal A-fib: On Eliquis. On metoprolol and amiodarone #Heart failure preserved ejection fraction: On aspirin and metoprolol. Lasix on hold due to AISSATOU on CKD stage III #History of liver transplant on account of nonalcoholic steatohepatitis and alpha-1 antitrypsin deficiency * On tacrolimus and Bactrim. * Also on lactulose and Flagyl. * #Hypertension: On metoprolol DVT prophylaxis: Eliquis, on renally adjusted dose. Charges/Coding Visit Charges Inpatient E&M: 99753 Subs Hosp L2
[2023-02-11] MEDS: Metoprolol Tartrate 50 MG Tablet PO (20:36)
[2023-02-11] MEDS: Aspirin E.C. 81 MG Tablet PO (20:38)
[2023-02-12] VITALS (7 sets, daily range): BP systolic 105–141; BP diastolic 54–72; PULSE 58–62; RESP 14–16; TEMP 36.6–37.2; O2SAT 97–99; BMI 48.3
[2023-02-12] MEDS: cycloBENZAPRine HCl 10 MG Tablet PO ×2 (02:55→16:08)
[2023-02-12 06:08] LABS: Tacrolimus (FK506) 21.7 ng/mL (2.0-20.0)
[2023-02-12 06:57] LABS: Anion Gap 6 (5-15); BUN 37 mg/dL (7-18); BUN/Creat Ratio 9.9 RATIO (10-20); Calcium,Total 8.3 mg/dL (8.5-10.1); Chloride 105 mmol/L (98-107); Creatinine, Serum 3.72 mg/dL (0.70-1.30); EST Glomerular Filtration Rate 18 mL/min (>60); Est Glom Filt Rate - Afr Amer 21 mL/min (>60); Estimated Creatinine Clearance 21.26 ml/min; Glucose 139 mg/dL (74-106); Potassium 3.8 mmol/L (3.5-5.1); Sodium Level 135 mmol/L (136-145)
[2023-02-12] MEDS: metroNIDAZOLE 500 MG Tablet PO (10:03)
[2023-02-12] MEDS: Ursodiol 250 MG Tablet PO ×2 (10:03→21:20)
[2023-02-12] MEDS: Metoprolol Tartrate 50 MG Tablet PO ×2 (10:03→21:20)
[2023-02-12] MEDS: Tacrolimus 0.5 MG Capsule PO (10:04)
[2023-02-12] MEDS: Citalopram 10 MG Tablet PO (10:04)
[2023-02-12] MEDS: Allopurinol 100 MG Tablet PO (10:04)
[2023-02-12] MEDS: Amiodarone 200 MG Tablet PO (10:04)
[2023-02-12] MEDS: Smz/Tmp Ds Tablet 0.5 TABLET PO (10:05)
[2023-02-12] MEDS: 0.9% Normal Saline 1,000 ML 75 ML IV (10:05)
[2023-02-12] MEDS: OXYCODONE HCL 10 MG PO ×2 (10:40→20:18)
[2023-02-12] MEDS: APIXABAN 2.5 MG TABLET (WCH) PO ×2 (11:01→21:20)
--- NOTE | 2023-02-12 11:01 | CASEMGMT ---
Social Work TONY spoke with [facility] in TCU. Pt has been accepted to TCU. During previous stay, pt was unhappy with TCU beds. A bariatric bed was ordered and pt was unhappy with this. TONY spoke with housekeeping room attendant Stefani who confirms pt can use current med surg bed while in TCU. TONY met with pt and and explained TCU can accept and discussed bed issues. Pt agreeable to use current bed in TCU. TCU updated and agreeable. Per physician, pt not medically ready for d/c at this time. Pt will need precert prior to discharge. Plan: TCU, pending precert BRAN Valenzuela
[2023-02-12] MEDS: 0.9% Saline Lock 10 ML Syringe IV (13:05)
--- NOTE | 2023-02-12 13:54 | PN_ITS ---
Subjective Subjective Patient seen and examined. He had no complaints. He had an uneventful night and review of systems otherwise negative. He has remained hemodynamically stable. Creatinine has trended upwards to 3.72 today. This was otherwise negative. Objective Data Objective Data Vital Signs: Vital Signs Temp Pulse Resp BP Pulse Ox O2 Del Method 98.0 F 61 15 115/62 97 Room Air 02/12/23 10:37 02/12/23 10:37 02/12/23 10:37 02/12/23 10:37 02/12/23 11:20 02/12/23 10:37 Oxygen Delivery Method Room Air Weight: 337 lb 11.971 oz Body Mass Index (BMI) 48.3 Intake & Output: Intake and Output for Last 24 Hours 02/10/23 02/11/23 02/12/23 23:59 23:59 23:59 Intake Total 1711.67 / 2211.67 2640 / 2640 1.25 / 1.25 Output Total 750 / 950 300 / 300 450 / 450 Balance 961.67 / 1261.67 2340 / 2340 -448.75 / -448.75 Lab / Micro Data Result Diagrams: 02/11/23 08:25 02/12/23 05:35 Labs: Laboratory Results - last 24 hr 02/09/23 05:15: Tacrolimus 21.7 H 02/12/23 05:35: Sodium 135 L, Potassium 3.8, Chloride 105, Carbon Dioxide 24.0, Anion Gap 6, BUN 37 H, Creatinine 3.72 H, Estim Creat Clear Calc 21.26, Est GFR (MDRD) Af Amer 21 L, Est GFR (MDRD) Non-Af 18 L, BUN/Creatinine Ratio 9.9 L, Glucose 139 H, Calcium 8.3 L Radiography Diagnostic Testing: Radiology Impression Renal Ultrasound 02/11/23 07:00 IMPRESSION: 3 cm x 2.4 cm x 3.2 cm left renal cyst. Electronically Signed: Pelon Graham MD at 14:46 EDT , Physical Exam Const alert, oriented x3 and no apparent distress General Appearance: cooperative and well developed HEENT normocephalic, head/scalp atraumatic and moist oral mucous membranes Eyes PERRL and EOMs intact bilaterally Neck no lymphadenopathy, supple and no JVD Lymph Lymphatic: no lymphadenopathy noted Resp normal respiratory effort, normal air movement and clear to auscultation bilaterally Cardio regular rate, regular rhythm, S1 normal heart sound, S2 normal heart sound and no murmurs GI normal to inspection, nondistended, normoactive bowel sounds, soft to palpation and non-tender Extremity normal capillary refill, no clubbing, cyanosis or edema and no calf tenderness Skin General Skin Exam: no breakdown Neuro CN's II-XII intact bilaterally, no focal motor deficits and no sensory deficits noted Motor Exam: strength 5/5 throughout Psych thought process normal and cooperative Appearance: appropriate Assessment & Plan Assessment/Plan (1) Adult failure to thrive: (2) Weakness: (3) AISSATOU (acute kidney injury): PLAN: Plan #AISSATOU on CKD IIIA * Creatinine was 3.64 on admission. Baseline is around 2.15. Cr today is 3.72 * Lasix on hold. * Will trend creatinine. * continue gentle hydration with IVF * nephrology on board. Per nephrology, she thinks patient is likely intravascularly depleted and so will hydrate with some fluids today as he responded to fluids. * Renal ultrasound showed a 3 x 2.4 x 3.2 cm left renal cyst. * #Debility and failure to thrive: PT/OT on board. Fall precautions. #Paroxysmal A-fib: On Eliquis. On metoprolol and amiodarone #Heart failure preserved ejection fraction: On aspirin and metoprolol. Lasix on hold due to AISSATOU on CKD stage III #History of liver transplant on account of nonalcoholic steatohepatitis and alpha-1 antitrypsin deficiency * On tacrolimus and Bactrim. * Also on lactulose and Flagyl. * #Hypertension: On metoprolol DVT prophylaxis: Eliquis, on renally adjusted dose. Charges/Coding Visit Charges Inpatient E&M: 41790 Subs Hosp L2
--- NOTE | 2023-02-12 17:19 | PN.RENAL_ITS ---
Subjective Subjective no nausea, vomiting or SOB. Creatinine increased to 3.7 off iv fluids. Will resume fluids. Tacrolimus level 21. Hold dose and repeat level. Need level at 5- 8. Objective Data Objective Data Vital Signs: Vital Signs Temp Pulse Resp BP Pulse Ox O2 Del Method 99.0 F 58 L 14 105/54 L 98 Room Air 02/12/23 14:12 02/12/23 14:12 02/12/23 14:12 02/12/23 14:12 02/12/23 14:12 02/12/23 14:12 Oxygen Delivery Method Room Air Weight: 153.2 kg Body Mass Index (BMI) 48.3 Intake & Output: Intake and Output for Last 24 Hours 02/10/23 02/11/23 02/12/23 23:59 23:59 23:59 Intake Total 1711.67 / 2211.67 2640 / 2640 1.25 / 1.25 Output Total 750 / 950 300 / 300 450 / 450 Balance 961.67 / 1261.67 2340 / 2340 -448.75 / -448.75 Lab / Micro Data Result Diagrams: 02/11/23 08:25 02/12/23 05:35 Labs: Laboratory Results - last 24 hr 02/09/23 05:15: Tacrolimus 21.7 H 02/12/23 05:35: Sodium 135 L, Potassium 3.8, Chloride 105, Carbon Dioxide 24.0, Anion Gap 6, BUN 37 H, Creatinine 3.72 H, Estim Creat Clear Calc 21.26, Est GFR (MDRD) Af Amer 21 L, Est GFR (MDRD) Non-Af 18 L, BUN/Creatinine Ratio 9.9 L, Glucose 139 H, Calcium 8.3 L Physical Exam Const alert Nutritional Appearance: morbidly obese Resp clear to auscultation bilaterally Cardio regular rate and no rub GI non-tender and non-distended Auscultation: normoactive bowel sounds Palpation: soft Extremity General Extremity: edema bilateral lower extremity Details: moderate Neuro CN's II-XII intact bilaterally Neuro Narrative: debilitated, weakness gen Psych cooperative Assessment & Plan Assessment/Plan (1) AISSATOU (acute kidney injury): PLAN: Creatnine 3.7 today. Resume iv fluids. FK level 21. hold tacrolimus and repeat level. Discussed dialysis if renal fxn continued to worsen. No dialysis at this time. NO uremic symptoms. (2) Chronic kidney disease, stage 3b: PLAN: baseline creatinine 2 to 2.5 (3) Dehydration: PLAN: iv fluids, dark nolberto urine (4) Adult failure to thrive: (5) Weakness: PLAN: evaluate for PT/OT (6) CAD (coronary artery disease): (7) S/P PTCA (percutaneous transluminal coronary angioplasty): (8) Malaise: (9) Paroxysmal atrial fibrillation: (10) Morbid obesity: (11) FELIPE (nonalcoholic steatohepatitis): PLAN: s/p liver transplant on tacrolimus.Level high, hold (12) Hyperammonemia: PLAN: lactulose
[2023-02-12] MEDS: Aspirin E.C. 81 MG Tablet PO (21:20)
[2023-02-13] MEDS: cycloBENZAPRine HCl 10 MG Tablet PO ×2 (01:58→08:34)
[2023-02-13] MEDS: 0.9% Normal Saline 1,000 ML 75 ML IV (01:59)
[2023-02-13 02:00] VITALS: BP 134/74; PULSE 60; RESP 16; TEMP 36.8; O2SAT 97
[2023-02-13] MEDS: OXYCODONE HCL 10 MG PO ×2 (04:16→21:29)
[2023-02-13 06:00] VITALS: BMI 48.1
[2023-02-13 06:47] LABS: Anion Gap 5 (5-15); BUN 35 mg/dL (7-18); BUN/Creat Ratio 10.5 RATIO (10-20); Calcium,Total 8.2 mg/dL (8.5-10.1); Chloride 107 mmol/L (98-107); Creatinine, Serum 3.32 mg/dL (0.70-1.30); EST Glomerular Filtration Rate 20 mL/min (>60); Est Glom Filt Rate - Afr Amer 24 mL/min (>60); Estimated Creatinine Clearance 23.82 ml/min; Glucose 130 mg/dL (74-106); Potassium 4.3 mmol/L (3.5-5.1); Sodium Level 136 mmol/L (136-145)
[2023-02-13 08:12] VITALS: BP 104/52; PULSE 56; RESP 16; TEMP 36.6; O2SAT 97
[2023-02-13] MEDS: Allopurinol 100 MG Tablet PO (08:24)
[2023-02-13] MEDS: Smz/Tmp Ds Tablet 0.5 TABLET PO (08:25)
--- NOTE | 2023-02-13 10:19 | PN_ITS ---
Subjective Subjective Patient seen and examined. He had no complaints. Review of systems is otherwise negative. He has remained hemodynamically stable. His was by his bedside. Objective Data Objective Data Vital Signs: Vital Signs Temp Pulse Resp BP Pulse Ox O2 Del Method 97.8 F 56 L 16 104/52 L 97 Room Air 02/13/23 08:12 02/13/23 08:12 02/13/23 08:12 02/13/23 08:12 02/13/23 08:12 02/13/23 08:17 Oxygen Delivery Method Room Air Weight: 337 lb 11.971 oz Body Mass Index (BMI) 48.3 Intake & Output: Intake and Output for Last 24 Hours 02/11/23 02/12/23 02/13/23 23:59 23:59 23:59 Intake Total 2640 / 2640 1.25 / 1.25 967.5 / 967.5 Output Total 300 / 300 450 / 950 900 / 900 Balance 2340 / 2340 -448.75 / -948.75 67.5 / 67.5 Lab / Micro Data Result Diagrams: 02/11/23 08:25 02/13/23 06:06 Labs: Laboratory Results - last 24 hr 02/13/23 06:06: Sodium 136, Potassium 4.3, Chloride 107, Carbon Dioxide 24.0, Anion Gap 5, BUN 35 H, Creatinine 3.32 H, Estim Creat Clear Calc 23.82, Est GFR (MDRD) Af Amer 24 L, Est GFR (MDRD) Non-Af 20 L, BUN/Creatinine Ratio 10.5, Glucose 130 H, Calcium 8.2 L Physical Exam Const alert, oriented x3 and no apparent distress General Appearance: cooperative and well developed HEENT normocephalic, head/scalp atraumatic and moist oral mucous membranes Eyes PERRL and EOMs intact bilaterally Neck no lymphadenopathy, supple and no JVD Lymph Lymphatic: no lymphadenopathy noted Resp normal respiratory effort, normal air movement and clear to auscultation bilaterally Cardio regular rate, regular rhythm, S1 normal heart sound, S2 normal heart sound and no murmurs GI normal to inspection, nondistended, normoactive bowel sounds, soft to palpation and non-tender Extremity normal capillary refill, no clubbing, cyanosis or edema and no calf tenderness Skin General Skin Exam: no breakdown Neuro CN's II-XII intact bilaterally, no focal motor deficits and no sensory deficits noted Motor Exam: strength 5/5 throughout Psych thought process normal and cooperative Appearance: appropriate Assessment & Plan Assessment/Plan (1) Adult failure to thrive: (2) Weakness: (3) AISSATOU (acute kidney injury): PLAN: Plan #AISSATOU on CKD IIIA * being hydrated with IVF * Cr is down to 3.32 today * lasix remains on hold. * nephrology on board. Per nephrology, she thinks patient is likely intravascularly depleted and will respond to fluids. * Renal ultrasound showed a 3 x 2.4 x 3.2 cm left renal cyst. * #Debility and failure to thrive: PT/OT on board. Fall precautions. #Paroxysmal A-fib: On Eliquis. On metoprolol and amiodarone #Heart failure preserved ejection fraction: On aspirin and metoprolol. Lasix on hold due to AISSATOU on CKD stage III #History of liver transplant on account of nonalcoholic steatohepatitis and alpha-1 antitrypsin deficiency * On tacrolimus and Bactrim. * Also on lactulose and Flagyl. * #Hypertension: On metoprolol DVT prophylaxis: Eliquis, on renally adjusted dose. Charges/Coding Visit Charges Inpatient E&M: 32448 Subs Hosp L2
[2023-02-13 10:30] VITALS: PULSE 56
[2023-02-13] MEDS: Amiodarone 200 MG Tablet PO (10:30)
[2023-02-13] MEDS: metroNIDAZOLE 500 MG Tablet PO (10:30)
[2023-02-13] MEDS: Ursodiol 250 MG Tablet PO ×2 (10:31→21:30)
[2023-02-13] MEDS: Citalopram 10 MG Tablet PO (10:31)
[2023-02-13] MEDS: APIXABAN 2.5 MG TABLET (WCH) PO ×2 (10:34→21:33)
--- NOTE | 2023-02-13 10:44 | PCM.PN.REN ---
Subjective Subjective creatinine improving with iv fluids at 3.32 eGFR 20cc/min today. Denies nausea, vomiting, shortness of breath. Taking po better. Reviewed renal us with pt Objective Data Objective Data Vital Signs: Vital Signs Temp Pulse Resp BP Pulse Ox O2 Del Method 97.8 F 56 L 16 104/52 L 97 Room Air 02/13/23 08:12 02/13/23 10:30 02/13/23 08:12 02/13/23 08:12 02/13/23 08:12 02/13/23 08:17 Oxygen Delivery Method Room Air Weight: 153.2 kg Body Mass Index (BMI) 48.3 Intake & Output: Intake and Output for Last 24 Hours 02/11/23 02/12/23 02/13/23 23:59 23:59 23:59 Intake Total 2640 / 2640 1.25 / 1.25 967.5 / 967.5 Output Total 300 / 300 450 / 950 900 / 900 Balance 2340 / 2340 -448.75 / -948.75 67.5 / 67.5 Lab / Micro Data Result Diagrams: 02/11/23 08:25 02/13/23 06:06 Labs: Laboratory Results - last 24 hr 02/13/23 06:06: Sodium 136, Potassium 4.3, Chloride 107, Carbon Dioxide 24.0, Anion Gap 5, BUN 35 H, Creatinine 3.32 H, Estim Creat Clear Calc 23.82, Est GFR (MDRD) Af Amer 24 L, Est GFR (MDRD) Non-Af 20 L, BUN/Creatinine Ratio 10.5, Glucose 130 H, Calcium 8.2 L Physical Exam Const alert and oriented x3 Resp clear to auscultation bilaterally Cardio regular rate GI non-tender and non-distended GI Narrative: obese Auscultation: normoactive bowel sounds Palpation: soft Extremity General Extremity: edema bilateral Assessment & Plan Assessment/Plan (1) AISSATOU (acute kidney injury): PLAN: Creatnine improved to 3.32 today. Holding prograf for FK level 21. pending repeat level. No dialysis at this time. NO uremic symptoms. No further w/u needed for left renal cyst found on US kidney. (2) Chronic kidney disease, stage 3b: PLAN: baseline creatinine 2 to 2.5 (3) Dehydration: PLAN: iv fluids, dark nolberto urine (4) Adult failure to thrive: PLAN: appetite improving. Continue protein supplement (5) Weakness: PLAN: evaluate for PT/OT (6) CAD (coronary artery disease): (7) S/P PTCA (percutaneous transluminal coronary angioplasty): (8) Malaise: (9) Paroxysmal atrial fibrillation: (10) Morbid obesity: (11) FELIPE (nonalcoholic steatohepatitis): PLAN: s/p liver transplant on tacrolimus.Level high, hold today, resume in am. (12) Hyperammonemia: PLAN: lactulose
--- NOTE | 2023-02-13 10:48 | CASEMGMT ---
Social Work Per physician, pt will likely be ready for discharge tomorrow. TCU updated and precert to be started. Plan: TCU, pending precert BRAN Valenzuela
[2023-02-13 13:55] VITALS: BP 105/54; PULSE 59; RESP 16; TEMP 36.4; O2SAT 97
[2023-02-13 20:12] VITALS: BP 106/58; PULSE 109; RESP 16; TEMP 37.2; O2SAT 99
[2023-02-13 21:30] VITALS: BP 106/58; PULSE 109
[2023-02-13] MEDS: Metoprolol Tartrate 50 MG Tablet PO (21:30)
[2023-02-13] MEDS: Aspirin E.C. 81 MG Tablet PO (21:31)
[2023-02-14 02:00] VITALS: BP 116/59; PULSE 68; RESP 16; TEMP 37.2; O2SAT 97
[2023-02-14] MEDS: cycloBENZAPRine HCl 10 MG Tablet PO ×2 (02:09→11:36)
[2023-02-14 05:04] VITALS: BMI 48.2
[2023-02-14] MEDS: OXYCODONE HCL 10 MG PO (07:22)
[2023-02-14 08:13] VITALS: BP 115/53; PULSE 63; RESP 16; TEMP 36.6; O2SAT 98
[2023-02-14] MEDS: Smz/Tmp Ds Tablet 0.5 TABLET PO (08:26)
[2023-02-14] MEDS: Allopurinol 100 MG Tablet PO (08:26)
--- NOTE | 2023-02-14 08:58 | PCM.PN.REN ---
Subjective Subjective doing well. No complaints of shortness of breath. Edema persists but stable. Transfer to TCU for debilitation. Await labs from today Objective Data Objective Data Vital Signs: Vital Signs Temp Pulse Resp BP Pulse Ox O2 Del Method 97.9 F 63 16 115/53 L 98 Room Air 02/14/23 08:13 02/14/23 08:13 02/14/23 08:13 02/14/23 08:13 02/14/23 08:13 02/14/23 08:13 Oxygen Delivery Method Room Air Weight: 152.8 kg Body Mass Index (BMI) 48.2 Intake & Output: Intake and Output for Last 24 Hours 02/12/23 02/13/23 02/14/23 23:59 23:59 23:59 Intake Total 1.25 / 1.25 1967.5 / 1967.5 Output Total 450 / 950 1500 / 1800 750 / 750 Balance -448.75 / -948.75 467.5 / 167.5 -750 / -750 Lab / Micro Data Result Diagrams: 02/11/23 08:25 02/13/23 06:06 Physical Exam Const alert and oriented x3 Resp clear to auscultation bilaterally Cardio regular rate and no rub GI non-tender and non-distended GI Narrative: obese Auscultation: normoactive bowel sounds Palpation: soft Assessment & Plan Assessment/Plan (1) AISSATOU (acute kidney injury): PLAN: Creatnine improved to 3.32 yeseterday. Await labs today. Prograf level pending. (2) Chronic kidney disease, stage 3b: PLAN: baseline creatinine 2 to 2.5 (3) Dehydration: PLAN: iv fluids, dark nolberto urine rsolving (4) Adult failure to thrive: PLAN: appetite improving. Continue protein supplement (5) Weakness: PLAN: TCU (6) CAD (coronary artery disease): (7) S/P PTCA (percutaneous transluminal coronary angioplasty): (8) Malaise: (9) Paroxysmal atrial fibrillation: (10) Morbid obesity: (11) FELIPE (nonalcoholic steatohepatitis): PLAN: s/p liver transplant GI f/u (12) Hyperammonemia: PLAN: lactulose
[2023-02-14 09:21] LABS: Anion Gap 5 (5-15); BUN 37 mg/dL (7-18); BUN/Creat Ratio 12.4 RATIO (10-20); Calcium,Total 8.6 mg/dL (8.5-10.1); Chloride 109 mmol/L (98-107); Creatinine, Serum 2.98 mg/dL (0.70-1.30); EST Glomerular Filtration Rate 23 mL/min (>60); Est Glom Filt Rate - Afr Amer 28 mL/min (>60); Estimated Creatinine Clearance 26.54 ml/min; Glucose 111 mg/dL (74-106); Potassium 4.4 mmol/L (3.5-5.1); Sodium Level 136 mmol/L (136-145)
[2023-02-14] MEDS: Citalopram 10 MG Tablet PO (11:29)
[2023-02-14] MEDS: Tacrolimus 0.5 MG Capsule PO (11:29)
[2023-02-14 11:30] VITALS: PULSE 63
[2023-02-14] MEDS: Metoprolol Tartrate 50 MG Tablet PO (11:30)
[2023-02-14] MEDS: Ursodiol 250 MG Tablet PO (11:30)
[2023-02-14] MEDS: Amiodarone 200 MG Tablet PO (11:30)
[2023-02-14] MEDS: metroNIDAZOLE 500 MG Tablet PO (11:30)
[2023-02-14] MEDS: APIXABAN 2.5 MG TABLET (WCH) PO (11:36)
--- NOTE | 2023-02-14 12:21 | TREXTCAR_ITS ---
Diet Diet Order/Speech Therapy: 02/09/23 11:20 Diet: Cardiac - Heart Healthy Dietary Modifications:: Sodium Restricted Is pt able to select menu?: Yes Routine Orders/Code Status Enema Type: Fleetz Enema Frequency: Daily PRN Suppository Type: Dulcolax 10mg Suppository Frequency: Daily PRN O2 Frequency: PRN Keep PO Greater than or Equal to (%): 90 Therapies Weight Bearing: Weight bearing as tolerated Physical Therapy: Eval and Treat Occupational Therapy: Eval and Treat Problem/Diagnosis (1) AISSATOU (acute kidney injury): Status: Acute Code(s): N17.9 - Acute kidney failure, unspecified (2) Chronic kidney disease, stage 3b: Status: Acute Code(s): N18.32 - Chronic kidney disease, stage 3b (3) Dehydration: Status: Acute Code(s): E86.0 - Dehydration (4) Adult failure to thrive: Status: Acute Code(s): R62.7 - Adult failure to thrive (5) Weakness: Status: Acute Code(s): R53.1 - Weakness (6) CAD (coronary artery disease): Status: Chronic Code(s): I25.10 - Atherosclerotic heart disease of [place] coronary artery without angina pectoris (7) S/P PTCA (percutaneous transluminal coronary angioplasty): Status: Acute Code(s): Z98.61 - Coronary angioplasty status (8) Malaise: Status: Acute Code(s): R53.81 - Other malaise (9) Paroxysmal atrial fibrillation: Status: Chronic Code(s): I48.0 - Paroxysmal atrial fibrillation (10) Morbid obesity: Status: Chronic Code(s): E66.01 - Morbid (severe) obesity due to excess calories (11) FELIPE (nonalcoholic steatohepatitis): Status: Chronic Code(s): K75.81 - Nonalcoholic steatohepatitis (FELIPE) Comment: Status post liver transplant in July 2017 at [facility] (12) Hyperammonemia: Status: Acute Code(s): E72.20 - Disorder of urea cycle metabolism, unspecified Plan #AISSATOU on CKD IIIA * being hydrated with IVF * Cr is down to 3.32 today * lasix remains on hold. * nephrology on board. Per nephrology, she thinks patient is likely intravascularly depleted and will respond to fluids. * Renal ultrasound showed a 3 x 2.4 x 3.2 cm left renal cyst. * #Debility and failure to thrive: PT/OT on board. Fall precautions. #Paroxysmal A-fib: On Eliquis. On metoprolol and amiodarone #Heart failure preserved ejection fraction: On aspirin and metoprolol. Lasix on hold due to AISSATOU on CKD stage III #History of liver transplant on account of nonalcoholic steatohepatitis and alpha-1 antitrypsin deficiency * On tacrolimus and Bactrim. * Also on lactulose and Flagyl. * #Hypertension: On metoprolol DVT prophylaxis: Eliquis, on renally adjusted dose. Allergies/Procedures Done in Hospital Allergies morphine Allergy (Verified 02/08/23 21:23) Hives pravastatin [From Pravachol] Allergy (Verified 11/27/22 12:57) Hives [id number] Reductase Inhibitor [Irmttxl-[id number] Reductase Inhibitor] Allergy (Verified 11/27/22 12:57) Hives vancomycin Allergy (Verified 11/27/22 12:57) NEEDS FOLLOW-UP zolpidem tartrate [From Ambien] Allergy (Verified 11/27/22 12:57) Hives from the controlled or slow-release ambien. does not have any reactions to regular ambien. everolimus Adverse Reaction (Verified 11/27/22 12:57) Swelling gabapentin Adverse Reaction (Verified 11/27/22 12:57) NEEDS FOLLOW-UP Procedures: None Type of Care/Length of Stay Estimated LOS: Convalescent Care Less Than 30 days Type of Care Needed: Skilled Rehab Potential: Fair Prognosis: Fair Additional Orders/Day of Discharge Day of Discharge: 02/14/23 Dietary and Speech Recommendations Dietitian Recommendations/Changes: No noted hx of DM; will adjust diet to cardiac/sodium restricted Discharge Plan Admission Admit Date/Time: 02/08/23 16:12 Primary Reason for Your Visit: AISSATOU on CKD Attending Provider: Breanne Barkley Primary Care Provider: Lance Bose Chi Consulting Providers: Ghassan Song ; Gonzalo Diaz ; Verenice Monae Instructions Patient Instructions: ED Renal Insufficiency Discharge Orders/Prescriptions Prescriptions: New furosemide 40 mg tablet 40 mg PO DAILY Qty: 30 1RF Continued neomycin 500 mg tablet 500 mg PO BID Qty: 60 3RF metronidazole 500 mg tablet 500 mg PO DAILY Qty: 30 3RF famotidine [Pepcid AC] 20 mg tablet 20 mg PO BID nitroglycerin 0.4 mg tablet, sublingual 0.4 mg sublingual Q5M PRN (Reason: chest pain) Qty: 25 1RF Rx Instructions: do not exceed 3 doses per episode metoprolol tartrate 50 mg tablet 50 mg PO BID Qty: 180 1RF cyclobenzaprine 10 mg tablet 10 mg PO TID PRN (Reason: MUSCLE SPASMS) ondansetron 4 mg tablet,disintegrating 4 mg PO Q8H PRN (Reason: NAUSEA ) Eliquis 5 mg tablet 5 mg PO BID allopurinol 300 mg tablet 300 mg PO DAILY tacrolimus 0.5 mg capsule 0.5 mg PO 0900,2100 oxycodone 10 mg tablet 10 mg PO TID amlodipine 5 mg Tablet 5 mg PO DAILY Qty: 60 0RF aspirin 81 mg Tablet,Delayed Release (Dr/Ec) 81 mg PO BREAKFAST Qty: 60 0RF citalopram 10 mg tablet 10 mg PO DAILY Label Comments: TAKE 1 TABLET BY MOUTH DAILY ursodiol 300 mg capsule 300 mg PO BID Qty: 60 11RF sulfamethoxazole-trimethoprim 400-80 mg tablet 1 tab PO DAILY Qty: 90 3RF amiodarone 200 mg tablet See Rx Instructions .ROUTE .COMPLEX Qty: 60 11RF Dose Instruction: TAKE 1 TABLET BY MOUTH ONCE DAILY Rx Instructions: TAKE 1 TABLET BY MOUTH ONCE DAILY Discontinued furosemide 40 mg tablet 80 mg PO DAILY Referrals / Follow Up: Lance Bose Chi, MD [Primary Care Provider] - Within 1 Week Disposition Disposition (needs filled in before D/C Order can be placed): [facility]
--- NOTE | 2023-02-14 12:22 | DS.PCM_ITS ---
Providers Date of Admission: 02/08/23 Date of Discharge: 02/14/23 Primary Care Physician: Dr. Lance Bose MD Consultations 02/08/23 19:13 Consult: Nephrology Routine Consulting Provider: Ghassan Song Reason for Consult: AISSATOU on CKD, liver transplant pt on [place] EMERGENT Consult: No Notified: Yes Date Notified: 02/08/23 Time Notified: 16:25 Method of Notification: Text 02/12/23 09:23 Consult: Nephrology Routine Consulting Provider: Verenice Monae Reason for Consult: cont care EMERGENT Consult: No Notified: Yes Date Notified: 02/11/23 Time Notified: : Method of Notification: Verbal Reason For Visit: AISSATOU, WEAKNESS Diagnosis Discharge Diagnosis (1) AISSATOU (acute kidney injury): Status: Acute Code(s): N17.9 - Acute kidney failure, unspecified (2) Chronic kidney disease, stage 3b: Status: Acute Code(s): N18.32 - Chronic kidney disease, stage 3b (3) Dehydration: Status: Acute Code(s): E86.0 - Dehydration (4) Adult failure to thrive: Status: Acute Code(s): R62.7 - Adult failure to thrive (5) Weakness: Status: Acute Code(s): R53.1 - Weakness (6) CAD (coronary artery disease): Status: Chronic Code(s): I25.10 - Atherosclerotic heart disease of [place] coronary artery without angina pectoris (7) S/P PTCA (percutaneous transluminal coronary angioplasty): Status: Acute Code(s): Z98.61 - Coronary angioplasty status (8) Malaise: Status: Acute Code(s): R53.81 - Other malaise (9) Paroxysmal atrial fibrillation: Status: Chronic Code(s): I48.0 - Paroxysmal atrial fibrillation (10) Morbid obesity: Status: Chronic Code(s): E66.01 - Morbid (severe) obesity due to excess calories (11) FELIPE (nonalcoholic steatohepatitis): Status: Chronic Code(s): K75.81 - Nonalcoholic steatohepatitis (FELIPE) (12) Hyperammonemia: Status: Acute Code(s): E72.20 - Disorder of urea cycle metabolism, unspecified Plan #AISSATOU on CKD IIIA * being hydrated with IVF * Cr is down to 3.32 today * lasix remains on hold. * nephrology on board. Per nephrology, she thinks patient is likely intravascularly depleted and will respond to fluids. * Renal ultrasound showed a 3 x 2.4 x 3.2 cm left renal cyst. * #Debility and failure to thrive: PT/OT on board. Fall precautions. #Paroxysmal A-fib: On Eliquis. On metoprolol and amiodarone #Heart failure preserved ejection fraction: On aspirin and metoprolol. Lasix on hold due to AISSATOU on CKD stage III #History of liver transplant on account of nonalcoholic steatohepatitis and alpha-1 antitrypsin deficiency * On tacrolimus and Bactrim. * Also on lactulose and Flagyl. * #Hypertension: On metoprolol DVT prophylaxis: Eliquis, on renally adjusted dose. Medications at Discharge Home Medications cyclobenzaprine 10 mg tablet 10 mg PO TID PRN MUSCLE SPASMS 06/19/22 ondansetron 4 mg disintegrating tablet 4 mg PO Q8H PRN NAUSEA 06/19/22 apixaban 5 mg tablet (Eliquis) 5 mg PO BID BLOOD THINNER 07/20/22 allopurinol 300 mg tablet 300 mg PO DAILY GOUT 11/04/22 oxycodone 10 mg tablet 10 mg PO TID BREAKTHROUGH PAIN 11/06/22 tacrolimus 0.5 mg capsule, immediate-release 0.5 mg PO 0900,2100 LIVER TRANSPLANT 11/06/22 amlodipine 5 mg tablet 5 mg PO DAILY #60 tabs 11/07/22 aspirin 81 mg tablet,delayed release 81 mg PO BREAKFAST #60 tabs 11/07/22 ursodiol 300 mg capsule 300 mg PO BID #60 caps 11/13/22 sulfamethoxazole 400 mg-trimethoprim 80 mg tablet 1 tab PO DAILY LIVER TRANSPLANT #90 tabs 11/20/22 famotidine 20 mg tablet (Pepcid AC) 20 mg PO BID ACID REFLUX 11/27/22 metoprolol tartrate 50 mg tablet 50 mg PO BID BLOOD PRESSURE #180 tabs 11/27/22 nitroglycerin 0.4 mg sublingual tablet 0.4 mg sublingual Q5M PRN chest pain #25 tabs 11/27/22 metronidazole 500 mg tablet 500 mg PO DAILY #30 tabs 12/07/22 neomycin 500 mg tablet 500 mg PO BID #60 tabs 12/07/22 amiodarone 200 mg tablet See Rx Instructions .Route .COMPLEX #60 TABLETS 01/15/23 citalopram 10 mg tablet 10 mg PO DAILY MOOD 02/08/23 furosemide 40 mg tablet 40 mg PO DAILY #30 tabs 02/14/23 Hospital Course Operations None Procedures None Summary of Care Provided Minutes Spent on Discharge: 45 Hospital Course: Patient is a 62-year-old male with a past medical history as outlined was admitted through the ED on 02/08/2023 with a complaint of generalized weakness. He had had blood work done and his creatinine had gone up to 3.85 from baseline of around 2.15-2.6. He said he was also weak and could not ambulate very well. He was admitted and managed for AISSATOU on CKD stage III. He was hydrated with IV fluids. Nephrology was consulted as creatinine trended upwards again. His Lasix was held. He had renal ultrasound which showed a simple left renal cyst. His kidney impairment was thought to be prerenal due to intravascular volume depletion. He was therefore continued on IV fluids and he did much better. He remained stable and was discharged to the transitional care unit on 02/14/2023. He is to follow-up with his primary care doctor and follow-up with nephrology on outpatient basis. His Lasix was cut down to 40 mg daily. Patient seen and examined prior to discharge. He had no complaints and had an uneventful night. Review of systems otherwise negative. Labs and vitals reviewed. Home medication reviewed and reconciled. Physical Exam Const alert, oriented x3 and no apparent distress General Appearance: cooperative, comfortable, well kempt and well developed HEENT normocephalic, head/scalp atraumatic, hearing grossly normal bilaterally and moist oral mucous membranes Mouth: oral and palatal mucosa normal Eyes PERRL and EOMs intact bilaterally Neck no lymphadenopathy, supple and no JVD Lymph Lymphatic: no lymphadenopathy noted Resp normal respiratory effort, normal air movement, no use of accessory muscles and clear to auscultation bilaterally Cardio regular rate, regular rhythm, S1 normal heart sound, S2 normal heart sound and no murmurs GI normal to inspection, nondistended, normoactive bowel sounds, soft to palpation and non-tender Extremity normal to inspection, full ROM, normal capillary refill, no clubbing, cyanosis or edema and no calf tenderness Skin General Skin Exam: no breakdown Neuro oriented x3, CN's II-XII intact bilaterally, moves all extremities, no focal motor deficits and no sensory deficits noted Sensorium / Orientation: awake Motor Exam: strength 5/5 throughout Psych thought process normal and cooperative Appearance: appropriate Weight / BMI Weight Weight: 336 lb 13.861 oz Body Mass Index (BMI) 48.2 ABG / Lab / Microbiology Data Result Diagrams: 02/11/23 08:25 02/14/23 08:34 Laboratory: Laboratory Results - last 24 hr 02/14/23 08:34: Sodium 136, Potassium 4.4, Chloride 109 H, Carbon Dioxide 22.0, Anion Gap 5, BUN 37 H, Creatinine 2.98 H, Estim Creat Clear Calc 26.54, Est GFR (MDRD) Af Amer 28 L, Est GFR (MDRD) Non-Af 23 L, BUN/Creatinine Ratio 12.4, Glucose 111 H, Calcium 8.6 Microbiology: Microbiology 02/14/23 10:30 Nasal Secretion SARS-CoV-2 Antigen (Rapid) - Final D/C Instructions Discharge Diet: Low fat / Low cholesterol Discharge Activity: Return to Normal Activity Weight Bearing Status: Weight bearing as tolerated Call your doctor if you observe: Fever of 101 or Higher, Shortness of breath, Dizziness, Swelling in the ankles, Chest pain and Increased palpitations (irregular heartbeat) Meaningful Use Info Meaningful Use Diagnoses (Choose all that apply): None applicable Discharge Plan Admission Admit Date/Time: 02/08/23 16:12 Primary Reason for Your Visit: AISSATOU on CKD Attending Provider: Breanne Barkley Primary Care Provider: Lance Bose Chi Consulting Providers: Ghassan Song ; Gonzalo Diaz ; Verenice Monae Instructions Patient Instructions: ED Renal Insufficiency Discharge Orders/Prescriptions Prescriptions: New furosemide 40 mg tablet 40 mg PO DAILY Qty: 30 1RF Continued neomycin 500 mg tablet 500 mg PO BID Qty: 60 3RF metronidazole 500 mg tablet 500 mg PO DAILY Qty: 30 3RF famotidine [Pepcid AC] 20 mg tablet 20 mg PO BID nitroglycerin 0.4 mg tablet, sublingual 0.4 mg sublingual Q5M PRN (Reason: chest pain) Qty: 25 1RF Rx Instructions: do not exceed 3 doses per episode metoprolol tartrate 50 mg tablet 50 mg PO BID Qty: 180 1RF cyclobenzaprine 10 mg tablet 10 mg PO TID PRN (Reason: MUSCLE SPASMS) ondansetron 4 mg tablet,disintegrating 4 mg PO Q8H PRN (Reason: NAUSEA ) Eliquis 5 mg tablet 5 mg PO BID allopurinol 300 mg tablet 300 mg PO DAILY tacrolimus 0.5 mg capsule 0.5 mg PO 0900,2100 oxycodone 10 mg tablet 10 mg PO TID amlodipine 5 mg Tablet 5 mg PO DAILY Qty: 60 0RF aspirin 81 mg Tablet,Delayed Release (Dr/Ec) 81 mg PO BREAKFAST Qty: 60 0RF citalopram 10 mg tablet 10 mg PO DAILY Label Comments: TAKE 1 TABLET BY MOUTH DAILY ursodiol 300 mg capsule 300 mg PO BID Qty: 60 11RF sulfamethoxazole-trimethoprim 400-80 mg tablet 1 tab PO DAILY Qty: 90 3RF amiodarone 200 mg tablet See Rx Instructions .ROUTE .COMPLEX Qty: 60 11RF Dose Instruction: TAKE 1 TABLET BY MOUTH ONCE DAILY Rx Instructions: TAKE 1 TABLET BY MOUTH ONCE DAILY Discontinued furosemide 40 mg tablet 80 mg PO DAILY Referrals / Follow Up: Lance Bose Chi, MD [Primary Care Provider] - Within 1 Week Verenice Monae DO [Med Staff - Consulting] - Within 2 Weeks Disposition Disposition (needs filled in before D/C Order can be placed): [facility] Facility Charges/Coding Visit Charges Inpatient E&M: 68712 Disch Hosp >30min
--- NOTE | 2023-02-14 13:34 | CASEMGMT ---
Social Work Precert has been obtained for admission to TCU. Physician updated and pt can discharge to TCU today. Discharge orders faxed to TCU. SW met with pt and and updated that pt can discharge to TCU today. Pt and agreeable. RN updated and will coordinate transfer. Plan: TCU, skilled level of care BRAN Valenzuela
[2023-02-14 14:19] VITALS: BP 115/56; PULSE 62; RESP 16; TEMP 36.6; O2SAT 97
[2023-02-16 03:07] LABS: Tacrolimus (FK506) 19.2 ng/mL (2.0-20.0)
== END 2023-02-14 16:15 | DRG 683 ==
LOC: ED 15:41 → MS3 21:56
PROVIDERS: Internal Medicine Nephrology; Physician Assistant; Admitting Provider Internal Medicine; Emergency Provider Emergency Medicine; PCP Family Medicine Geriatric Medicine; Visit Provider Student in an Organized Health Care Education/Training Program
DX: N17.9 Acute kidney failure, unspecified (principal); I13.0 Hypertensive heart and chronic kidney disease with heart failure and stage 1 through stage 4 chronic kidney disease, or unspecified chronic kidney disease; E72.20 Disorder of urea cycle metabolism, unspecified; I48.92 Unspecified atrial flutter; I50.32 Chronic diastolic (congestive) heart failure; Z68.42 Body mass index [BMI] 45.0-49.9, adult; Z94.4 Liver transplant status; I95.9 Hypotension, unspecified; I48.0 Paroxysmal atrial fibrillation; N18.32 Chronic kidney disease, stage 3b; E66.01 Morbid (severe) obesity due to excess calories; M06.9 Rheumatoid arthritis, unspecified; I25.10 Atherosclerotic heart disease of native coronary artery without angina pectoris; E86.0 Dehydration; I25.2 Old myocardial infarction; M47.816 Spondylosis without myelopathy or radiculopathy, lumbar region; R62.7 Adult failure to thrive; G89.29 Other chronic pain; Z20.822 Contact with and (suspected) exposure to COVID-19; Z79.82 Long term (current) use of aspirin; Z79.01 Long term (current) use of anticoagulants; Z79.899 Other long term (current) drug therapy; Z98.61 Coronary angioplasty status; Z96.643 Presence of artificial hip joint, bilateral
CPT/HCPCS: 36415; 71045; 76770; 80048; 80053; 80069; 80197; 81001; 82140; 82570; 83735; 84100; 84300; 85025; 87426; 93005; 94668; 97110; 97116; 97162; 97166; 97530; 97535; 99252; 99285; J7030; A4216; G0463

== ENCOUNTER 2023-02-14 16:28 | Inpatient (IN) | payer MEDICARE, SELFPAY ==
[2023-02-14 16:39] VITALS: BP 115/48; PULSE 64; PULSE 68; RESP 18; TEMP 36.3; O2SAT 95; O2SAT 97; BMI 50.1
[2023-02-14 18:59] VITALS: PULSE 64
[2023-02-14] MEDS: Famotidine 20 MG Tablet PO (18:59)
[2023-02-14] MEDS: Ursodiol 250 MG Tablet PO (18:59)
[2023-02-14] MEDS: APIXABAN 5 MG TABLET PO (18:59)
[2023-02-14] MEDS: Metoprolol Tartrate 50 MG Tablet PO (18:59)
--- NOTE | 2023-02-14 19:08 | PCM.HP.STD ---
HPI - General General Date of Admission: 02/14/23 Date of Service: 02/14/23 Chief Complaint: Here for rehabilitation. HPI Narrative 02/08/2023 ESTEFANIA MILLER, is a 62 Male who presents to [facility] with generalized illness. 02/08/2023 EKG sinus rhythm with first degree AV block with premature supraventricular contractions, frequent and consecutive PVC, left axis deviation, low voltage QRS, possible anterolateral infarct. Weakness for 3 weeks, unable to stand, EMS called. Eating, drinking less, dehydrated, increased fatigue. BUN 37, Creatinine 3.85, baseline creatinine 2.38, Ammonia 67. IV fluids given, patient refused Lactulose, Urinalysis negative. 02/08/2023 Admit to Hospital. Hold Lasix, Hold Famotidine, normal saline 1 liter given in ED, continue normal saline 75cc/hour for acute kidney injury. PT/OT. Hold Neomycin. 02/09/2023 Feels better. Creatinine improved to 3.48, continue to hold Lasix, renally adjusted eliquis dose. PT/OT for debility. 02/11/2023 No complaints. Creatinine up to 3.64. PT/OT. 02/12/2023 Creatinine 3.72, no complaints. Renal ultrasound shows left renal cyst. Give IV fluids for dehydration for acute kidney injury. Patient willing to have hemodialysis. 02/13/2023 Creatinine improved to 3.32. Baseline creatinine 2 to 2.5. 02/14/2023 Creatinine 2.98. 02/14/2023 Admit to TCU with debility, here for rehabilitation, strengthening, prior to discharge home with . [facility] Medical History (HFpEF) heart failure with preserved ejection fraction Acidosis, lactic Acute hypotension Anemia of chronic disease Ascites Atherosclerotic heart disease of [place] coronary artery without angina pectoris Atrial fibrillation Atrial flutter with rapid ventricular response (02/02/21) Cellulitis Chronic renal failure, stage 3 (moderate) Cirrhosis Coronary artery disease Gout History of non-ST elevation myocardial infarction (NSTEMI) (12/29/20) Kidney disease Morbid obesity Multiple falls Nonsustained paroxysmal ventricular tachycardia (12/2020) Right hip pain Venous insufficiency Vertigo, central Home Medications cyclobenzaprine 10 mg tablet 10 mg PO TID PRN MUSCLE SPASMS 06/19/22 [History Last Taken 02/06/23] ondansetron 4 mg disintegrating tablet 4 mg PO Q8H PRN NAUSEA 06/19/22 [History Last Taken 02/07/23] apixaban 5 mg tablet (Eliquis) 5 mg PO BID BLOOD THINNER 07/20/22 [History Last Taken 02/08/23] allopurinol 300 mg tablet 300 mg PO DAILY GOUT 11/04/22 [History Last Taken 02/08/23] oxycodone 10 mg tablet 10 mg PO TID BREAKTHROUGH PAIN 11/06/22 [History Last Taken 02/07/23] tacrolimus 0.5 mg capsule, immediate-release 0.5 mg PO 0900,2100 LIVER TRANSPLANT 11/06/22 [History Last Taken 02/08/23] sulfamethoxazole 400 mg-trimethoprim 80 mg tablet 1 tab PO DAILY LIVER TRANSPLANT #90 tabs 11/20/22 [Rx Last Taken 02/08/23] famotidine 20 mg tablet (Pepcid AC) 20 mg PO BID ACID REFLUX 11/27/22 [History Last Taken 02/08/23] metoprolol tartrate 50 mg tablet 50 mg PO BID BLOOD PRESSURE #180 tabs 11/27/22 [Rx Last Taken 02/08/23] nitroglycerin 0.4 mg sublingual tablet 0.4 mg sublingual Q5M PRN chest pain #25 tabs 11/27/22 [Rx Last Taken Unknown] citalopram 10 mg tablet 10 mg PO DAILY MOOD 02/08/23 [History Last Taken Unknown] amiodarone 200 mg tablet 200 mg PO DAILY BP 02/14/23 [History Last Taken Unknown] amlodipine 5 mg tablet 5 mg PO DAILY BP 02/14/23 [History Last Taken Unknown] aspirin 81 mg tablet,delayed release 81 mg PO BREAKFAST Heart health 02/14/23 [History Last Taken Unknown] furosemide 40 mg tablet 40 mg PO DAILY Fluid retention 02/14/23 [History Last Taken Unknown] metronidazole 500 mg tablet 500 mg PO DAILY Antibiotic 02/14/23 [History Last Taken Unknown] neomycin 500 mg tablet 500 mg PO BID Antibiotic 02/14/23 [History Last Taken Unknown] ursodiol 300 mg capsule 300 mg PO BID Gallstones 02/14/23 [History Last Taken Unknown] Allergy/AdvReac Type Severity Reaction Status Date / Time morphine Allergy Hives Verified 02/08/23 21:23 pravastatin [From Pravachol] Allergy Hives Verified 11/27/22 12:57 Jfholho-WNC-FqH Reductase Allergy Hives Verified 11/27/22 12:57 Inhibitor [Npmfejv-Vde-Rfg Reductase Inhibitor] vancomycin Allergy NEEDS Verified 11/27/22 12:57 FOLLOW-UP zolpidem tartrate Allergy Hives Verified 11/27/22 12:57 [From Ambien] everolimus AdvReac Swelling Verified 11/27/22 12:57 gabapentin AdvReac NEEDS Verified 11/27/22 12:57 FOLLOW-UP Family History Mother Heart disease Father Heart disease Surgical History H/O shoulder surgery History of cardioversion (02/02/21) History of cataract extraction with lens replacement (~11/22/22) History of hip surgery Liver transplant recipient Status post liver transplant (07/2017) Social History household members: spouse Smoking Status: Never smoker alcohol intake: former substance use type: does not use caffeine: No ROS Constitutional Constitutional: Denies chills, fever(s) or weight gain ENT HEENT: Denies headache(s), nasal congestion or nasal discharge Cardiovascular Cardiovascular: Denies chest pain or palpitations Respiratory/Chest Respiratory/Chest: Denies cough, excessive phlegm production or shortness of breath with exertion Gastrointestinal Gastrointestinal: Denies abdominal pain, nausea or vomiting Genitourinary Genitourinary: Denies dysuria Musculoskeletal Musculoskeletal: Denies joint pain or joint swelling Integumentary Integumentary: Denies rash or wounds Neurologic Neurologic: Denies focal weakness, numbness or tingling Psychiatric Psychiatric: Denies anxiety, auditory hallucinations, depression, homicidal ideation or suicidal ideation Vital Signs Vital Signs Vital Signs: 02/14/23 16:39 02/14/23 18:59 Temperature 97.4 F L Temperature Source Temporal Pulse Rate 64 64 Respiratory Rate 18 Blood Pressure 115/48 L Blood Pressure Mean 70 Blood Pressure Source Monitor Blood Pressure Position Semi-Fowlers Blood Pressure Location Right Arm Pulse Ox 95 Oxygen Delivery Method Room Air Physical Exam Const alert General Appearance: cooperative HEENT normocephalic Eyes PERRL and EOMs intact bilaterally Neck supple, no JVD and no carotid bruits Resp normal respiratory effort, normal air movement and clear to auscultation bilaterally Cardio regular rate and regular rhythm GI normal to inspection, nondistended, normoactive bowel sounds, non-tender and non-distended Extremity normal capillary refill General Extremity: Negative for edema Skin no rashes or lesions noted General Skin Exam: no breakdown Psych affect normal Appearance: appropriate Assessment & Plan Assessment/Plan (1) Debility: (2) AISSATOU (acute kidney injury): (3) Chronic kidney disease, stage 3b: (4) Dehydration: (5) Atrial fibrillation: (6) Gout: (7) Diabetes mellitus: (8) BMI 50.0-59.9, adult: (9) History of liver transplant: (10) Choledocholithiasis: (11) Chronic diastolic congestive heart failure: PLAN: Plan 62 year old male with below past medical history hospitalized for acute kidney injury due to dehydration, admitted to TCU with debility, here for rehabilitation, strengthening, prior to discharge home with . Debility - PT/OT. Pain - Oxycodone 10mg tid prn. Bowel - Dulcolax 10mg pr daily prn. Adult immunization - Administer pneumonia vaccine, covid19 vaccine, flu vaccine as appropriate. DVT prophylaxis - on Eliquis. Gout - Allopurinol 300mg daily. Atrial fibrillation - Metoprolol 50mg bid, Amiodarone 200mg daily, Eliquis 5mg bid. 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 GERD - Famotidine 20mg bid. Coronary artery disease - Metoprolol 50mg bid, NTG 0.4mg prn. Hx Liver transplant (FELIPE, alpha 1 antitrypsin) - Tacrolimus 0.5mg bid, Bactrim DS 1/2 tablet daily, Consult Dr. Bales for help with management. Choledocholithiasis - Urosdiol 250mg bid. Acute kidney injury - Monitor. Chronic diastolic congestive heart failure - Metoprolol 50mg bid, hold Furosemide for now, daily weights.
[2023-02-14] MEDS: Tacrolimus 0.5 MG Capsule PO (21:22)
[2023-02-14] MEDS: OXYCODONE HCL 10 MG PO (21:23)
[2023-02-15 05:41] LABS: Absolute Neutrophil Count 3.9 X10^3/uL (2.0-7.7); Basophil# 0.03 X10^3/uL; Basophil% 0.4 % (0-1); Eosinophil# 0.27 X10^3/uL; Hematocrit 30.3 % (40-54); Lymphocyte % 26.9 % (19-41); Mean Corpuscular Hgb 31.5 pg (27.0-32.0); Mean Corpuscular Volume 95.6 fL (80-94); Mean Platelet Vol. 9.8 fl (6.2-12.0); Monocyte# 0.64 X10^3/uL; Monocyte% 9.6 % (0-10); NRBC Flagged by Analyzer 0 % (0-5); Neutrophil # 3.91 X10^3/uL (2.7-7.7); Neutrophil % 58.5 % (47-70); Platelet Count 246 K/mm3 (150-450); RBC Distribution Width CV 14.7 % (11.6-14.6); RBC Distribution Width SD 51.4 fl (35.1-43.9); Red Blood Count 3.17 M/mm3 (4.6-6.2); White Blood Count 6.7 K/mm3 (4.4-11.0)
[2023-02-15 06:00] VITALS: BMI 49.9
[2023-02-15 06:08] LABS: Anion Gap 5 (5-15); BUN 39 mg/dL (7-18); BUN/Creat Ratio 14.6 RATIO (10-20); Calcium,Total 8.7 mg/dL (8.5-10.1); Chloride 112 mmol/L (98-107); Creatinine, Serum 2.67 mg/dL (0.70-1.30); EST Glomerular Filtration Rate 26 mL/min (>60); Est Glom Filt Rate - Afr Amer 31 mL/min (>60); Estimated Creatinine Clearance 29.62 ml/min; Glucose 120 mg/dL (74-106); Potassium 4.6 mmol/L (3.5-5.1); Sodium Level 139 mmol/L (136-145)
[2023-02-15 06:28] VITALS: BP 108/51; PULSE 67
[2023-02-15] MEDS: APIXABAN 5 MG TABLET PO ×2 (06:28→17:52)
[2023-02-15] MEDS: Famotidine 20 MG Tablet PO ×2 (06:28→17:53)
[2023-02-15] MEDS: Metoprolol Tartrate 50 MG Tablet PO ×2 (06:28→17:53)
[2023-02-15] MEDS: Citalopram 10 MG Tablet PO (06:28)
[2023-02-15] MEDS: Nystatin Powder 15gm Bottle 1 APPLIC TOPICAL ×2 (06:29→17:59)
[2023-02-15] MEDS: Ursodiol 250 MG Tablet PO ×2 (06:29→17:53)
[2023-02-15] MEDS: Allopurinol 300 MG Tablet PO (08:24)
[2023-02-15] MEDS: Amiodarone 200 MG Tablet PO (08:24)
[2023-02-15] MEDS: Smz/Tmp Ds Tablet 0.5 TABLET PO (08:26)
[2023-02-15] MEDS: Tacrolimus 0.5 MG Capsule PO ×2 (08:27→20:34)
[2023-02-15] MEDS: Tuberculin,Purif.prot.deriv. 50 TU/ML Vial 0.1 ML ID (10:28)
[2023-02-15] MEDS: OXYCODONE HCL 10 MG PO ×2 (12:01→17:56)
--- NOTE | 2023-02-15 13:00 | CASEMGMT ---
Social Work Met with patient to complete initial assessment. Pt known to this worker from previous stay. Confirmed no changes to assessment, contacts, code status or MOLST. Educated to [facility] insurance and continued stay is not guaranteed with each review. SW to follow for DC planning. Eunice Bright, [employer] OPERATOR SPECIALIST PHYSICIAN
--- NOTE | 2023-02-15 13:34 | NURSING ---
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 Casa is independent in his choice of daily activities and stated he is not interested in group activities. He has a smartphone and tablet to keep him busy when not visiting w/family or in therapy. Staff will offer him daily newspaper and respect his right to say no.
--- NOTE | 2023-02-15 13:48 | PCM.PN.DRR ---
TCU RX Drug Regimen Review Subjective: TCU Admission. FP [id number] hospitalized on 02/08 for AISSATOU. Admitted to TCU on 02/14 with debility, here for rehab and strengthening. Objective: Allergies morphine Allergy (Verified 02/08/23 21:23) Hives pravastatin [From Pravachol] Allergy (Verified 11/27/22 12:57) Hives Difbxyy-KNI-FoT Reductase Inhibitor [Kjdnkxd-Eos-Mur Reductase Inhibitor] Allergy (Verified 11/27/22 12:57) Hives vancomycin Allergy (Verified 11/27/22 12:57) NEEDS FOLLOW-UP zolpidem tartrate [From Ambien] Allergy (Verified 11/27/22 12:57) Hives from the controlled or slow-release ambien. does not have any reactions to regular ambien. everolimus Adverse Reaction (Verified 11/27/22 12:57) Swelling gabapentin Adverse Reaction (Verified 11/27/22 12:57) NEEDS FOLLOW-UP Current Medications Generic Name Dose Route Start Last Admin Trade Name Freq PRN Reason Stop Dose Admin Allopurinol 300 mg 02/15/23 08:00 02/15/23 08:24 Allopurinol 300 Mg Tablet PO 300 mg DAILYCM ROSALIE Administration Amiodarone HCl 200 mg 02/15/23 08:00 02/15/23 08:24 Amiodarone 200 Mg Tablet PO 200 mg DAILYCM ROSALIE Administration Apixaban 5 mg 02/14/23 18:00 02/15/23 06:28 Apixaban 5 Mg Tablet PO 5 mg BID ROSALIE Administration Bisacodyl 10 mg 02/14/23 17:28 Bisacodyl 10 Mg Suppository RC DAILY PRN Constipation Citalopram Hydrobromide 10 mg 02/15/23 06:00 02/15/23 06:28 Citalopram 10 Mg Tablet PO 10 mg DAILY ROSALIE Administration Famotidine 20 mg 02/14/23 18:00 02/15/23 06:28 Famotidine 20 Mg Tablet PO 20 mg BID ROSALIE Administration Metoprolol Tartrate 50 mg 02/14/23 18:00 02/15/23 06:28 Metoprolol Tartrate 50 Mg Tablet PO 50 mg BID ROSALIE Administration Nitroglycerin 0.4 mg 02/14/23 17:43 Nitroglycerin (Inpatient Use) 0.4 Mg Tab.Subl SL Q5M PRN CARDIAC/CHEST PAIN Nystatin 1 applic 02/15/23 06:00 02/15/23 06:29 Nystatin Powder 15gm Bottle TOPICAL 1 applic BID ROSALIE Administration Protocol Oxycodone HCl 10 mg 02/14/23 18:10 02/15/23 12:01 Oxycodone Hcl 10 Mg Tablet PO 10 mg TID PRN Administration Pain Score 1-10 Sodium Chloride 10 - 40 ml 02/14/23 17:32 0.9% Saline Lock 10 Ml Syringe IV UD PRN SALINE FLUSH Tacrolimus 0.5 mg 02/14/23 21:00 02/15/23 08:27 Tacrolimus 0.5 Mg Capsule PO 0.5 mg 0900,2100 ROSALIE Administration Trimethoprim/Sulfamethoxazole 0.5 tablet 02/15/23 08:00 02/15/23 08:26 Smz/Tmp Ds Tablet PO 0.5 tablet DAILYCM ROSALIE Administration Tuberculin PPD 0.1 ml 02/22/23 10:00 Tuberculin,Purif.Prot.Deriv. 50 Tu/Ml Vial ID 02/22/23 10:01 X1 ONE Ursodiol 250 mg 02/14/23 18:00 02/15/23 06:29 Ursodiol 250 Mg Tablet PO 250 mg BID ROSALIE Administration Problem List (Last Reviewed 02/14/23 @ 19:[address] Lance Bose MD) Chronic diastolic congestive heart failure (Chronic) Choledocholithiasis (Acute) History of liver transplant (Acute) BMI 50.0-59.9, adult (Acute) Diabetes mellitus (Acute) Gout (Acute) Atrial fibrillation (Acute) Debility (Acute) Chronic kidney disease, stage 3b (Acute) AISSATOU (acute kidney injury) (Acute) Dehydration (Acute) Vital Signs Temp Pulse Resp BP Pulse Ox O2 Del Method 97.4 F L 67 18 108/51 L 97 Room Air 02/14/23 16:39 02/15/23 06:28 02/14/23 16:39 02/15/23 06:28 02/14/23 16:39 02/14/23 16:39 Oxygen Delivery Method Room Air Weight: 158.9 kg Body Mass Index (BMI) 49.9 Sodium 139 mmol/L (136-145) 02/15/23 05:18 Potassium 4.6 mmol/L (3.5-5.1) 02/15/23 05:18 Chloride 112 mmol/L (98-107) H 02/15/23 05:18 Carbon Dioxide 22.0 mmol/L (21.0-32.0) 02/15/23 05:18 Anion Gap 5 (5-15) 02/15/23 05:18 BUN 39 mg/dL (7-18) H 02/15/23 05:18 Creatinine 2.67 mg/dL (0.70-1.30) H 02/15/23 05:18 Est GFR (MDRD) Af Amer 31 mL/min (>60) L 02/15/23 05:18 Est GFR (MDRD) Non-Af 26 mL/min (>60) L 02/15/23 05:18 BUN/Creatinine Ratio 14.6 RATIO (10-20) 02/15/23 05:18 Glucose 120 mg/dL (74-106) H 02/15/23 05:18 Assessment/Plan: 1. Pain: oxycodone 10mg PO TID PRN pain (1-10). Monitor: pain levels, constipation, sedation, prn medication use. To date, patient has received two doses of Oxycodone with a pain level not documented. 2. Bowel: bisacodyl 10mg RC daily PRN constipation. Monitor: increased or decreased constipation or diarrhea. To date, patient has not used any prn medication. 3. Gout: allopurinol 300mg PO daily. Monitor: S/S of gout, joint pain, rash and renal function. 4. Atrial fibrillation/coronary artery disease/chronic diastolic congestive heart failure: metoprolol tartrate 50mg PO BID, amiodarone 200mg PO daily, apixaban 5mg PO BID, nitroglycerin 0.4mg SL Q5M PRN chest pain. Monitor: BP (108-115/48-51), HR (64-68), bleeding, potassium (last 4.6mmol/L), sodium (last 139mmol/L), hemoglobin (last 10g/dL), bruising, fall risk, headache, prn medication use. To date, patient has not used prn medication. 5. GERD: famotidine 20mg PO BID. Monitor: headache, dizziness, constipation, S/S of GERD, renal function. 6. Hx Liver transplant (FELIPE, alpha 1 antitrypsin): tacrolimus 0.5mg PO BID, Bactrim DS 1/2 tablet PO daily. Monitor: s/s infection, LFTs (last 02/08/23), lipid panel (last 11/07/22), renal function, tacrolimus levels (slightly elevated at 21.7ng/mL on 02/09/23). 7. Choledocholithiasis: ursodiol 250mg PO BID. Monitor: stomach pain, constipation, nausea. Assessment/Plan for indications treated with psychotropic medications: *1. Depression: citalopram 10mg daily. Monitor: falls/fractures (BEERs medications), sodium, nausea, diarrhea, abdominal pain. Please see physician note regarding GDR. Medical chart and medication regimen reviewed. The following medication irregularities or issues were identified: None Date of Note:: 02/15/23
[2023-02-15] MEDS: cycloBENZAPRine HCl 10 MG Tablet PO ×2 (15:10→20:35)
[2023-02-15 16:00] VITALS: BP 107/40; PULSE 64; RESP 16; TEMP 36.6; O2SAT 96
[2023-02-15 17:53] VITALS: PULSE 64
[2023-02-16 04:14] VITALS: PULSE 62
[2023-02-16] MEDS: APIXABAN 5 MG TABLET PO ×2 (04:14→17:14)
[2023-02-16] MEDS: Famotidine 20 MG Tablet PO ×2 (04:14→17:15)
[2023-02-16] MEDS: Metoprolol Tartrate 50 MG Tablet PO ×2 (04:14→17:14)
[2023-02-16] MEDS: Ursodiol 250 MG Tablet PO ×2 (04:14→17:15)
[2023-02-16] MEDS: cycloBENZAPRine HCl 10 MG Tablet PO ×3 (04:14→20:17)
[2023-02-16] MEDS: Citalopram 10 MG Tablet PO (04:14)
[2023-02-16] MEDS: Nystatin Powder 15gm Bottle 1 APPLIC TOPICAL (04:15)
[2023-02-16 08:06] LABS: Absolute Lymphocyte Count 1.73 X10^3/uL (0.83-4.51); Absolute Neutrophil Count 3.7 X10^3/uL (2.0-7.7); Basophil# 0.05 X10^3/uL; Basophil% 0.8 % (0-1); Eosinophil# 0.27 X10^3/uL; Eosinophils% 4.2 % (0-5); Hematocrit 31.3 % (40-54); Hemoglobin 10.2 g/dL (13.0-16.5); Lymphocyte # 1.73 X10^3/ul (0.83-4.51); Lymphocyte % 26.9 % (19-41); Mean Corp Hgb Conc 32.6 g/dL (32-36); Mean Corpuscular Hgb 32.2 pg (27.0-32.0); Mean Corpuscular Volume 98.7 fL (80-94); Mean Platelet Vol. 9.9 fl (6.2-12.0); Monocyte# 0.64 X10^3/uL; NRBC Flagged by Analyzer 0 % (0-5); Neutrophil # 3.69 X10^3/uL (2.7-7.7); Neutrophil % 57.5 % (47-70); Platelet Count 233 K/mm3 (150-450); RBC Distribution Width CV 14.9 % (11.6-14.6); RBC Distribution Width SD 54.5 fl (35.1-43.9); Red Blood Count 3.17 M/mm3 (4.6-6.2); White Blood Count 6.4 K/mm3 (4.4-11.0)
[2023-02-16 08:16] LABS: Anion Gap 5 (5-15); BUN 39 mg/dL (7-18); BUN/Creat Ratio 15.6 RATIO (10-20); Calcium,Total 8.8 mg/dL (8.5-10.1); Chloride 109 mmol/L (98-107); EST Glomerular Filtration Rate 28 mL/min (>60); Est Glom Filt Rate - Afr Amer 34 mL/min (>60); Estimated Creatinine Clearance 31.63 ml/min; Glucose 122 mg/dL (74-106); Potassium 4.6 mmol/L (3.5-5.1); Sodium Level 137 mmol/L (136-145)
[2023-02-16] MEDS: Smz/Tmp Ds Tablet 0.5 TABLET PO (09:55)
[2023-02-16] MEDS: OXYCODONE HCL 10 MG PO (09:55)
[2023-02-16] MEDS: Tacrolimus 0.5 MG Capsule PO ×2 (09:55→20:17)
[2023-02-16] MEDS: Allopurinol 300 MG Tablet PO (09:56)
[2023-02-16] MEDS: Amiodarone 200 MG Tablet PO (09:56)
[2023-02-16 16:00] VITALS: BP 100/43; PULSE 63; RESP 18; TEMP 36.6; O2SAT 98
[2023-02-16 17:14] VITALS: BP 100/43; PULSE 64
[2023-02-16 20:21] VITALS: PULSE 62; RESP 18; O2SAT 96
[2023-02-17] MEDS: APIXABAN 5 MG TABLET PO ×2 (06:00→18:11)
[2023-02-17] MEDS: cycloBENZAPRine HCl 10 MG Tablet PO ×3 (06:00→22:59)
[2023-02-17] MEDS: Citalopram 10 MG Tablet PO (06:00)
[2023-02-17 06:01] VITALS: BP 105/48; PULSE 67
[2023-02-17] MEDS: Nystatin Powder 15gm Bottle 1 APPLIC TOPICAL (06:01)
[2023-02-17] MEDS: Ursodiol 250 MG Tablet PO ×2 (06:01→18:11)
[2023-02-17] MEDS: Metoprolol Tartrate 50 MG Tablet PO ×2 (06:01→18:11)
[2023-02-17] MEDS: Famotidine 20 MG Tablet PO ×2 (06:01→18:11)
[2023-02-17 07:29] LABS: Anion Gap 4 (5-15); BUN 42 mg/dL (7-18); BUN/Creat Ratio 16.4 RATIO (10-20); Chloride 110 mmol/L (98-107); Creatinine, Serum 2.56 mg/dL (0.70-1.30); EST Glomerular Filtration Rate 27 mL/min (>60); Est Glom Filt Rate - Afr Amer 33 mL/min (>60); Estimated Creatinine Clearance 30.89 ml/min; Glucose 131 mg/dL (74-106); Potassium 4.6 mmol/L (3.5-5.1); Sodium Level 138 mmol/L (136-145)
[2023-02-17] MEDS: Smz/Tmp Ds Tablet 0.5 TABLET PO (08:03)
[2023-02-17] MEDS: Amiodarone 200 MG Tablet PO (08:03)
[2023-02-17] MEDS: Allopurinol 300 MG Tablet PO (08:03)
[2023-02-17] MEDS: Tacrolimus 0.5 MG Capsule PO ×2 (08:03→22:59)
[2023-02-17] MEDS: OXYCODONE HCL 10 MG PO (11:19)
[2023-02-17 13:48] VITALS: BP 102/47; PULSE 61; RESP 14; TEMP 36.3; O2SAT 98
--- NOTE | 2023-02-17 16:59 | NURSING ---
Pt c/o RLE being painful intermittently. RLE red, temperature is equal on both legs, and 2+ pitting edema to right lower extremity, 1+ to left lower extremity. Hx of cellulitis. Dr Bose updated on pt r lower leg. Orders for dopler study and antibiotic therapy.
[2023-02-17 18:11] VITALS: BP 108/44; PULSE 64
[2023-02-17] MEDS: Cephalexin 500 MG Capsule PO ×2 (18:16→23:17)
[2023-02-17] MEDS: Doxycycline 100 MG CAPSULE PO (18:16)
[2023-02-18] MEDS: Ursodiol 250 MG Tablet PO ×2 (06:15→18:16)
[2023-02-18] MEDS: APIXABAN 5 MG TABLET PO ×2 (06:15→18:15)
[2023-02-18] MEDS: Doxycycline 100 MG CAPSULE PO ×2 (06:16→18:14)
[2023-02-18] MEDS: cycloBENZAPRine HCl 10 MG Tablet PO ×3 (06:16→20:07)
[2023-02-18] MEDS: Cephalexin 500 MG Capsule PO ×3 (06:16→18:15)
[2023-02-18] MEDS: Citalopram 10 MG Tablet PO (06:16)
[2023-02-18] MEDS: Famotidine 20 MG Tablet PO ×2 (06:16→18:16)
[2023-02-18 06:17] VITALS: BP 116/51; PULSE 63
[2023-02-18] MEDS: Metoprolol Tartrate 50 MG Tablet PO ×2 (06:17→18:15)
[2023-02-18 06:24] VITALS: BMI 50.5
--- NOTE | 2023-02-18 10:50 | NURSING ---
Offered covid booster, education about vaccine provided. Patient refuses at this time.
[2023-02-18] MEDS: Smz/Tmp Ds Tablet 0.5 TABLET PO (12:07)
[2023-02-18] MEDS: Amiodarone 200 MG Tablet PO (12:07)
[2023-02-18] MEDS: Tacrolimus 0.5 MG Capsule PO ×2 (12:07→20:07)
[2023-02-18] MEDS: Allopurinol 300 MG Tablet PO (12:07)
[2023-02-18 14:39] VITALS: BP 106/57; PULSE 62; RESP 12; TEMP 36.4; O2SAT 97
--- NOTE | 2023-02-18 16:28 | US_ITS ---
STUDY: Focused right neck ultrasound ULTRASOUND REASON FOR EXAM: Male, 62 years old. Enlarged Lymph node -- Right upper neck TECHNIQUE: Ultrasound evaluation of the thyroid was performed with real-time and static mccracken-scale imaging. COMPARISON: None. FINDINGS: Solid nodule with echogenic center typical for lymph node inferior to the right auricle measuring 1 x 0.9 x 0.7 cm and corresponding to the palpable lump.. Nodular color vascularity noted. US/Head/Neck Soft Tissue IMPRESSION: Nonspecific lymph nodes right neck as above. Electronically Signed: Goran Seymour MD at 15:25 EDT ,
[2023-02-18 18:15] VITALS: PULSE 62
[2023-02-18] MEDS: Nystatin Powder 15gm Bottle 1 APPLIC TOPICAL (18:22)
[2023-02-19] MEDS: Cephalexin 500 MG Capsule PO ×4 (00:02→21:18)
[2023-02-19] MEDS: OXYCODONE HCL 10 MG PO ×2 (01:46→11:40)
[2023-02-19] MEDS: Ursodiol 250 MG Tablet PO ×2 (05:02→17:19)
[2023-02-19] MEDS: APIXABAN 5 MG TABLET PO ×2 (05:02→17:19)
[2023-02-19] MEDS: cycloBENZAPRine HCl 10 MG Tablet PO ×3 (05:02→21:18)
[2023-02-19] MEDS: Doxycycline 100 MG CAPSULE PO ×2 (05:02→17:19)
[2023-02-19] MEDS: Famotidine 20 MG Tablet PO ×2 (05:02→17:19)
[2023-02-19] MEDS: Citalopram 10 MG Tablet PO (05:02)
[2023-02-19] MEDS: Nystatin Powder 15gm Bottle 1 APPLIC TOPICAL (05:03)
[2023-02-19 05:04] VITALS: BP 102/49; PULSE 63
[2023-02-19] MEDS: Metoprolol Tartrate 50 MG Tablet PO ×2 (05:04→17:18)
[2023-02-19 06:00] VITALS: BMI 49.6
[2023-02-19] MEDS: Smz/Tmp Ds Tablet 0.5 TABLET PO (08:02)
[2023-02-19] MEDS: Allopurinol 300 MG Tablet PO (08:03)
[2023-02-19] MEDS: Amiodarone 200 MG Tablet PO (08:03)
[2023-02-19] MEDS: Tacrolimus 0.5 MG Capsule PO ×2 (08:03→21:18)
[2023-02-19 16:00] VITALS: BP 120/53; PULSE 59; RESP 17; TEMP 37; O2SAT 99
[2023-02-19 17:18] VITALS: BP 120/53; PULSE 66
--- NOTE | 2023-02-19 18:05 | CON.PCM.GI_ITS ---
HPI Consult Data Date of Consult: 02/19/23 HPI Narrative Reason for Consultation: Liver transplant HPI Narrative: ESTEFANIA MILLER, is a 62 M who presentsHe has a past medical history of alpha-1 antitrypsin disease and and [place] resulting in cirrhosis status post orthotopic liver transplant in 2017.? He had no opportunistic infections that he knows of.? No history of CMV, EBV or infvn-ebgbjn-zqwa disease.? He is on tacrolimus and Bactrim prophylaxis.? He also takes lactulose on a daily basis for a history hyperammonia anemia from unknown cause. He was admitted through the ED on 02/08/2023 with a complaint of generalized weakness.? He had had blood work done and his creatinine had gone up to 3.85 from baseline of around 2.15-2.6.? He said he was also weak and could not ambulate very well.? He was admitted and managed for AISSATOU on CKD stage III.? He was hydrated with IV fluids.? Nephrology was consulted as creatinine trended upwards again.? His Lasix was held.? He had renal ultrasound which showed a simple left renal cyst.? His kidney impairment was thought to be prerenal due to intravascular volume depletion.? He was therefore continued on IV fluids and he did much better.? He remained stable and was discharged to the transitional care unit on 02/14/2023. His tacrolimus level was 21.7 within normal range being 6-20. After reducing his tacrolimus to 0.5 his levels back down to normal at 18. He is not having any diarrhea but he does complain of malaise and fatigue. His last CT scan that we have in our system was 08/05/2017- Normal size liver with liver transplant since the previous study. . Surgical clips and increased density at the portal hepatic area. Nonvisualization of the gallbladder.? No significant dilatation of the extrahepatic biliary system.? Normal spleen.? Normal pancreas. He had a ultrasound to look for ascites and 07/24/2022. No ascites was seen on that imaging study. He would like to go on GLP-1 inhibitor for weight loss. [facility] Medical History (HFpEF) heart failure with preserved ejection fraction Acidosis, lactic Acute hypotension Anemia of chronic disease Ascites Atherosclerotic heart disease of [place] coronary artery without angina pectoris Atrial fibrillation Atrial flutter with rapid ventricular response (02/02/21) Cellulitis Chronic renal failure, stage 3 (moderate) Cirrhosis Coronary artery disease Gout History of non-ST elevation myocardial infarction (NSTEMI) (12/29/20) Kidney disease Morbid obesity Multiple falls Nonsustained paroxysmal ventricular tachycardia (12/2020) Right hip pain Venous insufficiency Vertigo, central Home Medications cyclobenzaprine 10 mg tablet 10 mg PO TID PRN MUSCLE SPASMS 06/19/22 [History Last Taken 02/06/23] ondansetron 4 mg disintegrating tablet 4 mg PO Q8H PRN NAUSEA 06/19/22 [History Last Taken 02/07/23] apixaban 5 mg tablet (Eliquis) 5 mg PO BID BLOOD THINNER 07/20/22 [History Last Taken 02/08/23] allopurinol 300 mg tablet 300 mg PO DAILY GOUT 11/04/22 [History Last Taken 02/08/23] oxycodone 10 mg tablet 10 mg PO TID BREAKTHROUGH PAIN 11/06/22 [History Last Taken 02/07/23] tacrolimus 0.5 mg capsule, immediate-release 0.5 mg PO 0900,2100 LIVER TRANSPLANT 11/06/22 [History Last Taken 02/08/23] sulfamethoxazole 400 mg-trimethoprim 80 mg tablet 1 tab PO DAILY LIVER TR ANSPLANT #90 tabs 11/20/22 [Rx Last Taken 02/08/23] famotidine 20 mg tablet (Pepcid AC) 20 mg PO BID ACID REFLUX 11/27/22 [History Last Taken 02/08/23] metoprolol tartrate 50 mg tablet 50 mg PO BID BLOOD PRESSURE #180 tabs 11/27/22 [Rx Last Taken 02/08/23] nitroglycerin 0.4 mg sublingual tablet 0.4 mg sublingual Q5M PRN chest pain #25 tabs 11/27/22 [Rx Last Taken Unknown] citalopram 10 mg tablet 10 mg PO DAILY MOOD 02/08/23 [History Last Taken Unknown] amiodarone 200 mg tablet 200 mg PO DAILY BP 02/14/23 [History Last Taken Unknown] amlodipine 5 mg tablet 5 mg PO DAILY BP 02/14/23 [History Last Taken Unknown] aspirin 81 mg tablet,delayed release 81 mg PO BREAKFAST Heart health 02/14/23 [History Last Taken Unknown] furosemide 40 mg tablet 40 mg PO DAILY Fluid retention 02/14/23 [History Last Taken Unknown] metronidazole 500 mg tablet 500 mg PO DAILY Antibiotic 02/14/23 [History Last Taken Unknown] neomycin 500 mg tablet 500 mg PO BID Antibiotic 02/14/23 [History Last Taken Unknown] ursodiol 300 mg capsule 300 mg PO BID Gallstones 02/14/23 [History Last Taken Unknown] Allergy/AdvReac Type Severity Reaction Status Date / Time morphine Allergy Hives Verified 02/08/23 21:23 pravastatin [From Pravachol] Allergy Hives Verified 11/27/22 12:57 Eoboqnc-FNO-NvN Reductase Allergy Hives Verified 11/27/22 12:57 Inhibitor [Tckxsmh-Vsr-Yzd Reductase Inhibitor] vancomycin Allergy NEEDS Verified 11/27/22 12:57 FOLLOW-UP zolpidem tartrate Allergy Hives Verified 11/27/22 12:57 [From Ambien] everolimus AdvReac Swelling Verified 11/27/22 12:57 gabapentin AdvReac NEEDS Verified 11/27/22 12:57 FOLLOW-UP Family History Mother Heart disease Father Heart disease Surgical History H/O shoulder surgery History of cardioversion (02/02/21) History of cataract extraction with lens replacement (~11/22/22) History of hip surgery Liver transplant recipient Status post liver transplant (07/2017) Social History household members: spouse Smoking Status: Never smoker alcohol intake: former substance use type: does not use caffeine: No ROS Constitutional Constitutional: Denies chills, fever(s) or weight gain ENT HEENT: Denies headache(s), nasal congestion or nasal discharge Cardiovascular Cardiovascular: Denies chest pain or palpitations Respiratory/Chest Respiratory/Chest: Denies cough, excessive phlegm production or shortness of breath with exertion Gastrointestinal Gastrointestinal: Denies abdominal pain, nausea or vomiting Genitourinary Genitourinary: Denies dysuria Musculoskeletal Musculoskeletal: Denies joint pain or joint swelling Integumentary Integumentary: Denies rash or wounds Neurologic Neurologic: Denies focal weakness, numbness or tingling Psychiatric Psychiatric: Denies anxiety, auditory hallucinations, depression, homicidal ideation or suicidal ideation Physical Exam Const alert General Appearance: cooperative HEENT normocephalic Eyes PERRL and EOMs intact bilaterally Neck supple, no JVD and no carotid bruits Resp normal respiratory effort, normal air movement and clear to auscultation b ilaterally Cardio regular rate and regular rhythm GI normal to inspection, nondistended, normoactive bowel sounds, non-tender and non-distended Extremity normal capillary refill General Extremity: Negative for edema Skin no rashes or lesions noted General Skin Exam: no breakdown Psych affect normal Appearance: appropriate Lab / Micro Data Result Diagrams: 02/16/23 07:45 02/17/23 06:41 Radiology Impression Soft Tissue Ultrasound 02/18/23 16:28 IMPRESSION: Nonspecific lymph nodes right neck as above. Electronically Signed: Goran Seymour MD at 15:25 EDT Reading Location ID and State: [address] [place] [address] , Service support , Assessment & Plan Assessment/Plan (1) History of liver transplant: PLAN: Patient's tacrolimus level is within normal limits. That does not explain his kidney function. He is taking 0.5 mg twice a day to prevent rejection. He is also on PCP prophylaxis. He has not shown any signs of opportunistic infections at this time. I will need to repeat his LFTs but his liver function test about a week ago were within normal limits except for mildly elevated bilirubin which I think is consistent with Gilbert syndrome. He needs to have a alpha-fetoprotein checked. I would not change any of his antirejection medicines at this time. (2) Fatigue: PLAN: Fatigue is a major problem following liver transplantation. In a previous longitudinal study of recipients of liver transplants, 20% reported being fatigued, 40% reported being severely fatigued, and the remaining 40% reported no fatigue. I think he needs physical activity in order to build up his strength and be active and helping his fatigue. I did not address depression with him but that could be another cause. I do not see any signs of his liver failing either acutely or chronically that would explain his fatigue. (3) Hyperammonemia: PLAN: Hyperammonia anemia is likely secondary to creatinine clearance I did clear most of the ammonia via your gastrointestinal tract to check later majority of the rest be of the urinary tract. (4) AISSATOU (acute kidney injury): (5) Chronic kidney disease, stage 3b: Charges/Coding Visit Charges Inpatient E&M: 93497 [facility] Init L2
[2023-02-19 19:48] LABS: International Normalized Ratio 1.5; Partial Thromboplast Time 39.7 Seconds (24.1-36.2); Prothrombin Time (Protime)PT. 17.9 SECONDS (11.7-14.9)
[2023-02-19 20:08] LABS: ALB/GLOB Ratio 0.5 RATIO (0.9-2.4); AST(SGOT) 13 U/L (15-37); Alanine Aminotransfer ALT/SGPT 12 U/L (16-61); Albumin, Serum 1.9 g/dL (3.2-5.0); Alkaline Phosphatase 117 U/L (45-117); Anion Gap 5 (5-15); BUN 38 mg/dL (7-18); BUN/Creat Ratio 17.1 RATIO (10-20); Calcium,Total 8.7 mg/dL (8.5-10.1); Chloride 109 mmol/L (98-107); Creatinine, Serum 2.22 mg/dL (0.70-1.30); EST Glomerular Filtration Rate 32 mL/min (>60); Est Glom Filt Rate - Afr Amer 39 mL/min (>60); Estimated Creatinine Clearance 35.62 ml/min; Free T3 1.6 pg/mL (2.18-3.98); Globulin 3.9 g/dL (2.2-4.2); Glucose 151 mg/dL (74-106); Protein, Total 5.8 g/dL (6.4-8.2); Sodium Level 137 mmol/L (136-145); T4 Free Direct 1.41 ng/dL (0.76-1.46); Thyroid Stim Hormone (TSH) 7.18 uIU/mL (0.358-3.74)
--- NOTE | 2023-02-19 20:55 | NURSING ---
Spoke with Dr. Boes to clarify whether to hold transplant medication due to lab values. Medication to stay at the same dose at this time. Will continue to monitor.
[2023-02-19 20:57] VITALS: PULSE 66; RESP 16; O2SAT 98
[2023-02-20] MEDS: OXYCODONE HCL 10 MG PO (01:15)
[2023-02-20 05:56] VITALS: BMI 50.8
[2023-02-20] MEDS: Cephalexin 500 MG Capsule PO ×3 (06:48→21:35)
[2023-02-20] MEDS: cycloBENZAPRine HCl 10 MG Tablet PO ×3 (06:48→21:34)
[2023-02-20] MEDS: Doxycycline 100 MG CAPSULE PO ×2 (06:48→17:30)
[2023-02-20 06:49] VITALS: BP 100/49; PULSE 71
[2023-02-20] MEDS: Metoprolol Tartrate 50 MG Tablet PO ×2 (06:49→17:30)
[2023-02-20] MEDS: Ursodiol 250 MG Tablet PO ×2 (06:49→17:31)
[2023-02-20] MEDS: Famotidine 20 MG Tablet PO ×2 (06:49→17:30)
[2023-02-20] MEDS: Citalopram 10 MG Tablet PO (06:49)
[2023-02-20] MEDS: APIXABAN 5 MG TABLET PO ×2 (06:49→17:30)
--- NOTE | 2023-02-20 07:49 | NURSING ---
Patient noted to have increased SOB this AM at rest. Weight has increased. Diuretic recently discontinued. Dr. Bose aware. Will continue to monitor.
[2023-02-20 08:03] LABS: Absolute Neutrophil Count 4.9 X10^3/uL (2.0-7.7); Basophil# 0.02 X10^3/uL; Basophil% 0.3 % (0-1); Eosinophil# 0.31 X10^3/uL; Eosinophils% 4.2 % (0-5); Hematocrit 30.8 % (40-54); Hemoglobin 9.8 g/dL (13.0-16.5); Lymphocyte % 20.4 % (19-41); Mean Corp Hgb Conc 31.8 g/dL (32-36); Mean Corpuscular Volume 97.5 fL (80-94); Mean Platelet Vol. 9.2 fl (6.2-12.0); Monocyte% 8.2 % (0-10); NRBC Flagged by Analyzer 0 % (0-5); Neutrophil # 4.88 X10^3/uL (2.7-7.7); Neutrophil % 66.4 % (47-70); Platelet Count 212 K/mm3 (150-450); RBC Distribution Width CV 14.6 % (11.6-14.6); RBC Distribution Width SD 52.3 fl (35.1-43.9); Red Blood Count 3.16 M/mm3 (4.6-6.2); White Blood Count 7.4 K/mm3 (4.4-11.0)
[2023-02-20 08:27] LABS: Anion Gap 3 (5-15); BUN 41 mg/dL (7-18); BUN/Creat Ratio 18.3 RATIO (10-20); Calcium,Total 8.7 mg/dL (8.5-10.1); Chloride 110 mmol/L (98-107); Creatinine, Serum 2.24 mg/dL (0.70-1.30); EST Glomerular Filtration Rate 32 mL/min (>60); Est Glom Filt Rate - Afr Amer 38 mL/min (>60); Estimated Creatinine Clearance 35.31 ml/min; Glucose 167 mg/dL (74-106); Potassium 4.7 mmol/L (3.5-5.1); Sodium Level 136 mmol/L (136-145)
[2023-02-20 08:28] LABS: Vitamin B12 448 pg/mL (211-911)
[2023-02-20] MEDS: Amiodarone 200 MG Tablet PO (08:36)
[2023-02-20] MEDS: Smz/Tmp Ds Tablet 0.5 TABLET PO (08:36)
[2023-02-20] MEDS: Tacrolimus 0.5 MG Capsule PO ×2 (08:37→21:34)
[2023-02-20] MEDS: Furosemide 40 MG Tablet PO (08:37)
[2023-02-20] MEDS: Allopurinol 300 MG Tablet PO (08:37)
--- NOTE | 2023-02-20 09:19 | CASEMGMT ---
Social Work IDT met with patient and for care plan meeting. Discussed patient's progress in PT/OT/SN. [facility] 02/27 with an EDC 03/02. assisted at home prior and can assist at DC. Inquired to about level of pt needs to be at DC for her to care for him. states she can handle anything at this time. Discussions held about possibly sleep apnea or narcolepsy. Updated Dr Bose with request for overnight trending pulse ox and possibly sleep study, then can coordinate at DC. Pt/ appreciative. SW to continue to follow for DC planning. Eunice Bright, OVERHEAD WORKER THIN FILM TECHNICIAN
--- NOTE | 2023-02-20 14:06 | CASEMGMT ---
Social Work BIMS () and PHQ-9 (06/28) completed for MDS assessment. SW explored positive responses. Pt equates responses d/t reason for admission, slurred speech, low energy, poor appetite, unable to work, trouble sleeping. Pt denies being depressed and encouraged with improvement with therapy and Dr oversight. Eunice Bright, SITE MANAGER DIRECTOR HEALTH
[2023-02-20 15:59] VITALS: BP 107/45; PULSE 66; RESP 18; TEMP 35.9; O2SAT 99
[2023-02-20 17:30] VITALS: BP 107/45; PULSE 66
[2023-02-20 20:16] VITALS: PULSE 67; O2SAT 98
[2023-02-20 22:00] VITALS: PULSE 69; RESP 16; O2SAT 99
[2023-02-20 22:10] LABS: Bacteria 0 SEEN /hpf (None Seen); Mucous, Urine 0 SEEN /hpf (<or=2+); Red Blood Cells-Urine 0 SEEN /hpf (0-5); Squamous Epithelial Cells - UA 0 SEEN /hpf (0-5); White Blood Cells 0 SEEN /hpf (0-5)
[2023-02-20 22:56] LABS: Color, Urine Yellow (Yellow); Glucose, Dipstick Normal (Normal); Ketone-Dipstick Negative (Negative); Leukocyte Esterase-Dipstick Negative /ul (Negative); Nitrite-Dipstick Negative (Negative); Occult Blood-Urine Negative /ul (Negative); Protein-Dipstick Negative (Negative); Urine Bilirubin Dipstick Negative (Negative); Urine Clarity Clear (Clear); Urine Urobilinogen Normal (Normal)
[2023-02-21] MEDS: OXYCODONE HCL 10 MG PO ×2 (00:36→12:30)
--- NOTE | 2023-02-21 02:26 | PCA ---
While helping patient off the toilet, patient went to turn and sit on rollator, and rollator slipped away. Rollator was locked prior to patient transferring. Patient was wedged between the wall sitting half on the rollator. This BUSINESS STRATEGIST called for nurse to help with patient. BUSINESS STRATEGIST and nurse had to lower patient to the floor. Gwen lift was used to assist in getting patient up. Small skin tear to left arm. Patient transferred into the bed and nurse dressed skin tear on arm.
--- NOTE | 2023-02-21 04:05 | NURSING ---
0200- ITALIAN TEACHER assisting w/ toilet transfer. Pt on edge of rollator. Assistive device was locked but slid away from pt. A second nurse entered the bathroom to assist. Due to pt weakness and inability to assist w/ standing and repositioning onto seat of rollator, pt was lowered to bathroom floor per three staff. Gwen pad placed under pt and a fourth staff member was present for transfer from bathroom floor back to bed. Positioned in bed for comfort. Pt sustained a small skin tear to left lateral lower arm. Small to moderate amount of bleeding noted to site. Affected area cleansed w/ NS, pat dry, adaptic applied to wound bed, covered w/ one ABD, wrapped w/ kerlex, and secured w/ tape. No sxs infection noted to the affected area. Will continue to monitor.
[2023-02-21 04:07] LABS: AFP, Tumor Marker 4.5 ng/mL (0.0-8.4)
[2023-02-21] MEDS: cycloBENZAPRine HCl 10 MG Tablet PO ×3 (05:54→19:57)
[2023-02-21] MEDS: APIXABAN 5 MG TABLET PO ×2 (05:54→17:34)
[2023-02-21] MEDS: Citalopram 10 MG Tablet PO (05:54)
[2023-02-21] MEDS: Levothyroxine 25 MCG TABLET PO (05:54)
[2023-02-21] MEDS: Famotidine 20 MG Tablet PO ×2 (05:54→17:35)
[2023-02-21] MEDS: Ursodiol 250 MG Tablet PO ×2 (05:54→17:34)
[2023-02-21] MEDS: Furosemide 40 MG Tablet PO ×2 (05:54→13:42)
[2023-02-21] MEDS: Cephalexin 500 MG Capsule PO ×3 (05:54→19:57)
[2023-02-21] MEDS: Doxycycline 100 MG CAPSULE PO ×2 (05:54→17:35)
[2023-02-21 05:55] VITALS: BP 97/49; PULSE 67
[2023-02-21 05:58] LABS: Anion Gap 4 (5-15); BUN 36 mg/dL (7-18); BUN/Creat Ratio 17.1 RATIO (10-20); Calcium,Total 8.4 mg/dL (8.5-10.1); Chloride 110 mmol/L (98-107); EST Glomerular Filtration Rate 34 mL/min (>60); Est Glom Filt Rate - Afr Amer 41 mL/min (>60); Estimated Creatinine Clearance 37.66 ml/min; Glucose 159 mg/dL (74-106); Potassium 4.5 mmol/L (3.5-5.1); Sodium Level 139 mmol/L (136-145)
[2023-02-21 06:00] VITALS: BMI 51.7
--- NOTE | 2023-02-21 06:03 | NURSING ---
Patient's BP this AM was 97/49, pulse 67. Metoprolol held at this time, Lasix administered. Will continue to monitor.
[2023-02-21] MEDS: Allopurinol 300 MG Tablet PO (08:00)
[2023-02-21] MEDS: Smz/Tmp Ds Tablet 0.5 TABLET PO (08:00)
[2023-02-21] MEDS: Amiodarone 200 MG Tablet PO (08:00)
[2023-02-21] MEDS: Tacrolimus 0.5 MG Capsule PO ×2 (08:01→19:57)
[2023-02-21] MEDS: Cyanocobalamin 500 MCG Tablet 1000 MCG PO (10:08)
[2023-02-21 14:52] VITALS: BP 124/63; PULSE 71; RESP 16; TEMP 36.8; O2SAT 97
[2023-02-21 17:35] VITALS: PULSE 74
[2023-02-21] MEDS: Metoprolol Tartrate 50 MG Tablet PO (17:35)
[2023-02-21] MEDS: Nystatin Powder 15gm Bottle 1 APPLIC TOPICAL (17:36)
[2023-02-21 20:00] VITALS: PULSE 80; RESP 18; O2SAT 96
[2023-02-22 05:17] VITALS: BP 102/49; PULSE 70
[2023-02-22] MEDS: Ursodiol 250 MG Tablet PO ×2 (05:17→17:30)
[2023-02-22] MEDS: Doxycycline 100 MG CAPSULE PO ×2 (05:17→17:28)
[2023-02-22] MEDS: Famotidine 20 MG Tablet PO ×2 (05:17→17:29)
[2023-02-22] MEDS: Cephalexin 500 MG Capsule PO ×3 (05:17→21:48)
[2023-02-22] MEDS: Metoprolol Tartrate 50 MG Tablet PO ×2 (05:17→17:29)
[2023-02-22] MEDS: Citalopram 10 MG Tablet PO (05:17)
[2023-02-22] MEDS: cycloBENZAPRine HCl 10 MG Tablet PO ×3 (05:17→21:47)
[2023-02-22] MEDS: APIXABAN 5 MG TABLET PO (05:17)
[2023-02-22] MEDS: Levothyroxine 25 MCG TABLET PO (05:17)
[2023-02-22] MEDS: Furosemide 40 MG Tablet PO ×2 (05:20→13:47)
[2023-02-22 05:21] VITALS: BMI 51.5
[2023-02-22] MEDS: Nystatin Powder 15gm Bottle 1 APPLIC TOPICAL ×2 (05:23→17:30)
[2023-02-22 05:48] LABS: Absolute Lymphocyte Count 1.78 X10^3/uL (0.83-4.51); Basophil# 0.04 X10^3/uL; Basophil% 0.6 % (0-1); Eosinophil# 0.32 X10^3/uL; Eosinophils% 4.8 % (0-5); Hematocrit 27.2 % (40-54); Hemoglobin 8.8 g/dL (13.0-16.5); Lymphocyte # 1.78 X10^3/ul (0.83-4.51); Lymphocyte % 26.7 % (19-41); Mean Corp Hgb Conc 32.4 g/dL (32-36); Mean Corpuscular Hgb 31.4 pg (27.0-32.0); Mean Corpuscular Volume 97.1 fL (80-94); Mean Platelet Vol. 9.6 fl (6.2-12.0); Monocyte# 0.55 X10^3/uL; Monocyte% 8.2 % (0-10); NRBC Flagged by Analyzer 0 % (0-5); Neutrophil # 3.95 X10^3/uL (2.7-7.7); Neutrophil % 59.3 % (47-70); Platelet Count 206 K/mm3 (150-450); RBC Distribution Width CV 14.9 % (11.6-14.6); RBC Distribution Width SD 52.9 fl (35.1-43.9); White Blood Count 6.7 K/mm3 (4.4-11.0)
[2023-02-22 06:23] LABS: Anion Gap 4 (5-15); BUN 38 mg/dL (7-18); BUN/Creat Ratio 18.4 RATIO (10-20); Calcium,Total 8.2 mg/dL (8.5-10.1); Chloride 110 mmol/L (98-107); Creatinine, Serum 2.06 mg/dL (0.70-1.30); EST Glomerular Filtration Rate 35 mL/min (>60); Est Glom Filt Rate - Afr Amer 42 mL/min (>60); Estimated Creatinine Clearance 38.39 ml/min; Glucose 105 mg/dL (74-106); Potassium 4.4 mmol/L (3.5-5.1); Sodium Level 139 mmol/L (136-145)
[2023-02-22] MEDS: Smz/Tmp Ds Tablet 0.5 TABLET PO (07:58)
[2023-02-22] MEDS: Allopurinol 300 MG Tablet PO (07:59)
[2023-02-22] MEDS: Cyanocobalamin 500 MCG Tablet 1000 MCG PO (07:59)
[2023-02-22] MEDS: Amiodarone 200 MG Tablet PO (07:59)
[2023-02-22] MEDS: Tacrolimus 0.5 MG Capsule PO ×2 (09:39→21:47)
[2023-02-22] MEDS: Tuberculin,Purif.prot.deriv. 50 TU/ML Vial 0.1 ML ID (09:39)
[2023-02-22 14:19] VITALS: BP 111/61; PULSE 63; RESP 16; TEMP 36.6; O2SAT 99
[2023-02-22 17:29] VITALS: PULSE 63
[2023-02-22] MEDS: OXYCODONE HCL 10 MG PO (22:47)
[2023-02-23] MEDS: Doxycycline 100 MG CAPSULE PO ×2 (05:07→17:57)
[2023-02-23] MEDS: Citalopram 10 MG Tablet PO (05:07)
[2023-02-23 05:08] VITALS: BP 100/50; PULSE 68
[2023-02-23] MEDS: Metoprolol Tartrate 50 MG Tablet PO ×2 (05:08→17:57)
[2023-02-23] MEDS: Cephalexin 500 MG Capsule PO ×3 (05:08→22:52)
[2023-02-23] MEDS: cycloBENZAPRine HCl 10 MG Tablet PO ×3 (05:08→22:52)
[2023-02-23] MEDS: Famotidine 20 MG Tablet PO ×2 (05:08→17:56)
[2023-02-23] MEDS: Furosemide 40 MG Tablet PO ×2 (05:09→14:59)
[2023-02-23] MEDS: Levothyroxine 25 MCG TABLET PO (05:10)
[2023-02-23] MEDS: Ursodiol 250 MG Tablet PO ×2 (05:10→17:57)
--- NOTE | 2023-02-23 05:14 | NURSING ---
oral antibiotics continue as ordered for cellulitis. Redness remains to BLE, patient states looking better. No adverse effect related to Antibiotics observed or reported, no nausea/vomiting or rash. EAx2 with transfers, fatigues easily, max assist x2 with bed mobility. Able to voice needs. A&Ox3. Call light in reach.
[2023-02-23 06:00] VITALS: BMI 51.2
[2023-02-23 06:42] LABS: Absolute Lymphocyte Count 1.25 X10^3/uL (0.83-4.51); Basophil# 0.05 X10^3/uL; Basophil% 0.7 % (0-1); Eosinophil# 0.39 X10^3/uL; Eosinophils% 5.4 % (0-5); Hematocrit 27.3 % (40-54); Hemoglobin 8.8 g/dL (13.0-16.5); Lymphocyte # 1.25 X10^3/ul (0.83-4.51); Lymphocyte % 17.2 % (19-41); Mean Corp Hgb Conc 32.2 g/dL (32-36); Mean Corpuscular Hgb 31.3 pg (27.0-32.0); Mean Corpuscular Volume 97.2 fL (80-94); Mean Platelet Vol. 9.8 fl (6.2-12.0); Monocyte# 0.55 X10^3/uL; Monocyte% 7.6 % (0-10); NRBC Flagged by Analyzer 0 % (0-5); Neutrophil # 5.01 X10^3/uL (2.7-7.7); Neutrophil % 68.7 % (47-70); Platelet Count 207 K/mm3 (150-450); RBC Distribution Width CV 14.7 % (11.6-14.6); RBC Distribution Width SD 52.7 fl (35.1-43.9); Red Blood Count 2.81 M/mm3 (4.6-6.2); White Blood Count 7.3 K/mm3 (4.4-11.0)
[2023-02-23 07:17] LABS: Anion Gap 10 (5-15); BUN 39 mg/dL (7-18); BUN/Creat Ratio 19.6 RATIO (10-20); Calcium,Total 8.2 mg/dL (8.5-10.1); Chloride 108 mmol/L (98-107); Creatinine, Serum 1.99 mg/dL (0.70-1.30); EST Glomerular Filtration Rate 36 mL/min (>60); Est Glom Filt Rate - Afr Amer 44 mL/min (>60); Estimated Creatinine Clearance 39.74 ml/min; Glucose 134 mg/dL (74-106); Sodium Level 141 mmol/L (136-145)
[2023-02-23] MEDS: proMETHazine 25 MG Tablet PO ×2 (09:21→22:56)
[2023-02-23] MEDS: Amiodarone 200 MG Tablet PO (09:23)
[2023-02-23] MEDS: Cyanocobalamin 500 MCG Tablet 1000 MCG PO (09:23)
[2023-02-23] MEDS: Allopurinol 300 MG Tablet PO (09:23)
[2023-02-23] MEDS: Tacrolimus 0.5 MG Capsule PO ×2 (09:23→20:10)
[2023-02-23] MEDS: Smz/Tmp Ds Tablet 0.5 TABLET PO (09:24)
[2023-02-23 16:00] VITALS: BP 92/38; PULSE 68; RESP 16; TEMP 36.6; O2SAT 97
[2023-02-23 17:57] VITALS: BP 108/47; PULSE 72
[2023-02-23 20:14] VITALS: PULSE 64; RESP 16; O2SAT 64
--- NOTE | 2023-02-23 20:29 | NURSING ---
Addendum entered by Kartik Vazquez 02/23/23 20:36: No adverse effects observed or reported related to continued oral antibiotics as ordered for cellulitis. Redness remains to BLE, patient continues to reports they are looking better, No drainage observed. Pitting edema remains to BLE and non-pitting edema remains to BUE, patient reports edema a chronic issue, even when I am at home but my arms and hands are looking much better. Lung sounds clear A&P. EAx1-2 with bed mobility. EAX1-2 to turn and reposition in bed. EAx2 with transfers, able to ambulate with walker but fatigues easily. Able to voice needs, call light in reach. Original Note: Patient requests beverage, regular can of coke at this time. This nurse educated patient on current cardiac/sodium restricted diet. Discussed 30mg of sodium listed on each can of 7.5 oz coke. Patient A&Ox3. Education effective at this time AEB patient repeats back provided information and states I forgot about that, I'm not going to drink it, I want to get edema in my arms and legs better. Ice chips provided per request. Pleasant and talkative. No distress observed or reported. Call light in reach.
[2023-02-24] MEDS: OXYCODONE HCL 10 MG PO ×2 (00:55→19:06)
[2023-02-24 04:29] LABS: Absolute Neutrophil Count 4.1 X10^3/uL (2.0-7.7); Basophil# 0.05 X10^3/uL; Basophil% 0.7 % (0-1); Eosinophil# 0.44 X10^3/uL; Eosinophils% 6.4 % (0-5); Lymphocyte % 26.1 % (19-41); Mean Corp Hgb Conc 33.3 g/dL (32-36); Mean Corpuscular Hgb 32.4 pg (27.0-32.0); Mean Corpuscular Volume 97.1 fL (80-94); Mean Platelet Vol. 9.4 fl (6.2-12.0); Monocyte# 0.51 X10^3/uL; Monocyte% 7.4 % (0-10); NRBC Flagged by Analyzer 0 % (0-5); Neutrophil # 4.08 X10^3/uL (2.7-7.7); Neutrophil % 59.1 % (47-70); Platelet Count 196 K/mm3 (150-450); RBC Distribution Width CV 14.8 % (11.6-14.6); RBC Distribution Width SD 52.6 fl (35.1-43.9); Red Blood Count 2.78 M/mm3 (4.6-6.2); White Blood Count 6.9 K/mm3 (4.4-11.0)
[2023-02-24 05:19] LABS: Anion Gap 5 (5-15); BUN 42 mg/dL (7-18); BUN/Creat Ratio 20.6 RATIO (10-20); Calcium,Total 8.4 mg/dL (8.5-10.1); Chloride 109 mmol/L (98-107); Creatinine, Serum 2.04 mg/dL (0.70-1.30); EST Glomerular Filtration Rate 35 mL/min (>60); Est Glom Filt Rate - Afr Amer 43 mL/min (>60); Estimated Creatinine Clearance 38.77 ml/min; Glucose 118 mg/dL (74-106); Potassium 4.1 mmol/L (3.5-5.1); Sodium Level 139 mmol/L (136-145)
[2023-02-24 05:59] VITALS: BMI 51.1
[2023-02-24 06:32] VITALS: BP 104/49; PULSE 62
[2023-02-24] MEDS: Cephalexin 500 MG Capsule PO ×3 (06:32→22:18)
[2023-02-24] MEDS: Citalopram 10 MG Tablet PO (06:32)
[2023-02-24] MEDS: Famotidine 20 MG Tablet PO ×2 (06:32→18:30)
[2023-02-24] MEDS: Ursodiol 250 MG Tablet PO ×2 (06:32→18:29)
[2023-02-24] MEDS: Levothyroxine 25 MCG TABLET PO (06:32)
[2023-02-24] MEDS: Metoprolol Tartrate 50 MG Tablet PO ×2 (06:32→18:30)
[2023-02-24] MEDS: cycloBENZAPRine HCl 10 MG Tablet PO ×3 (06:32→22:17)
[2023-02-24] MEDS: Furosemide 40 MG Tablet PO ×2 (06:32→14:26)
[2023-02-24] MEDS: Doxycycline 100 MG CAPSULE PO ×2 (06:34→18:30)
[2023-02-24] MEDS: Cyanocobalamin 500 MCG Tablet 1000 MCG PO (10:02)
[2023-02-24] MEDS: Allopurinol 300 MG Tablet PO (10:02)
[2023-02-24] MEDS: Smz/Tmp Ds Tablet 0.5 TABLET PO (10:02)
[2023-02-24] MEDS: Tacrolimus 0.5 MG Capsule PO ×2 (10:02→20:14)
[2023-02-24] MEDS: Amiodarone 200 MG Tablet PO (10:02)
[2023-02-24 11:24] VITALS: PULSE 83; RESP 83; O2SAT 97
--- NOTE | 2023-02-24 12:21 | NURSING ---
pt refusing to wash up, states i just want to sleep pt has slept most of morning. no motivation.pulled up in bed x2 heavy assist,pt did assist by using side rails, tried elevating legs/heels on pillow pt refused. call light in reach. legs & feet puffy, some pitting edema, redness. lasix increased recently. call light in reach.
[2023-02-24 16:00] VITALS: BP 113/55; PULSE 68; RESP 16; TEMP 36.3; O2SAT 98
[2023-02-24 18:30] VITALS: PULSE 68
[2023-02-24] MEDS: proMETHazine 25 MG Tablet PO (22:17)
[2023-02-25 05:38] LABS: Absolute Lymphocyte Count 1.55 X10^3/uL (0.83-4.51); Absolute Neutrophil Count 3.9 X10^3/uL (2.0-7.7); Basophil# 0.05 X10^3/uL; Basophil% 0.8 % (0-1); Eosinophils% 7.6 % (0-5); Hematocrit 26.2 % (40-54); Hemoglobin 8.5 g/dL (13.0-16.5); Lymphocyte # 1.55 X10^3/ul (0.83-4.51); Lymphocyte % 23.7 % (19-41); Mean Corp Hgb Conc 32.4 g/dL (32-36); Mean Corpuscular Hgb 31.6 pg (27.0-32.0); Mean Corpuscular Volume 97.4 fL (80-94); Mean Platelet Vol. 9.8 fl (6.2-12.0); Monocyte# 0.52 X10^3/uL; Monocyte% 7.9 % (0-10); NRBC Flagged by Analyzer 0 % (0-5); Neutrophil # 3.91 X10^3/uL (2.7-7.7); Neutrophil % 59.7 % (47-70); Platelet Count 218 K/mm3 (150-450); RBC Distribution Width SD 53.1 fl (35.1-43.9); Red Blood Count 2.69 M/mm3 (4.6-6.2); White Blood Count 6.6 K/mm3 (4.4-11.0)
[2023-02-25 05:42] VITALS: BMI 50.8
[2023-02-25] MEDS: APIXABAN 5 MG TABLET PO ×2 (06:01→17:00)
[2023-02-25] MEDS: Cephalexin 500 MG Capsule PO ×3 (06:01→22:30)
[2023-02-25] MEDS: Levothyroxine 25 MCG TABLET PO (06:01)
[2023-02-25] MEDS: Furosemide 40 MG Tablet PO ×2 (06:01→14:15)
[2023-02-25] MEDS: Ursodiol 250 MG Tablet PO ×2 (06:01→17:01)
[2023-02-25] MEDS: cycloBENZAPRine HCl 10 MG Tablet PO ×3 (06:01→22:30)
[2023-02-25] MEDS: Famotidine 20 MG Tablet PO ×2 (06:01→17:01)
[2023-02-25] MEDS: Citalopram 10 MG Tablet PO (06:01)
[2023-02-25 06:06] VITALS: BP 104/49; PULSE 62
[2023-02-25] MEDS: Metoprolol Tartrate 50 MG Tablet PO ×2 (06:06→17:01)
[2023-02-25 06:30] LABS: Anion Gap 6 (5-15); BUN 42 mg/dL (7-18); BUN/Creat Ratio 23.7 RATIO (10-20); Calcium,Total 8.1 mg/dL (8.5-10.1); Chloride 110 mmol/L (98-107); Creatinine, Serum 1.77 mg/dL (0.70-1.30); EST Glomerular Filtration Rate 42 mL/min (>60); Est Glom Filt Rate - Afr Amer 50 mL/min (>60); Estimated Creatinine Clearance 44.68 ml/min; Glucose 126 mg/dL (74-106); Potassium 3.7 mmol/L (3.5-5.1); Sodium Level 142 mmol/L (136-145)
[2023-02-25 08:58] VITALS: BP 102/56; PULSE 65; RESP 17; TEMP 36.9; O2SAT 95
[2023-02-25] MEDS: Smz/Tmp Ds Tablet 0.5 TABLET PO (09:04)
[2023-02-25] MEDS: Amiodarone 200 MG Tablet PO (09:05)
[2023-02-25] MEDS: proMETHazine 25 MG Tablet PO (09:05)
[2023-02-25] MEDS: Allopurinol 300 MG Tablet PO (09:05)
[2023-02-25] MEDS: Tacrolimus 0.5 MG Capsule PO ×2 (09:05→22:30)
[2023-02-25] MEDS: Cyanocobalamin 500 MCG Tablet 1000 MCG PO (09:05)
[2023-02-25 14:13] VITALS: BP 115/52; PULSE 65
[2023-02-25 16:55] VITALS: BP 110/48; PULSE 69
[2023-02-25 17:01] VITALS: PULSE 69
[2023-02-25 22:25] VITALS: BP 100/45; PULSE 66
[2023-02-25] MEDS: OXYCODONE HCL 10 MG PO (22:31)
[2023-02-26] VITALS (7 sets, daily range): BP systolic 94–122; BP diastolic 45–52; PULSE 63–74; RESP 16; TEMP 36.6; O2SAT 91–96; BMI 50.8
[2023-02-26] MEDS: Famotidine 20 MG Tablet PO ×2 (05:52→17:04)
[2023-02-26] MEDS: APIXABAN 5 MG TABLET PO ×2 (05:52→17:04)
[2023-02-26] MEDS: Cephalexin 500 MG Capsule PO ×3 (05:52→21:51)
[2023-02-26] MEDS: Citalopram 10 MG Tablet PO (05:52)
[2023-02-26] MEDS: Levothyroxine 25 MCG TABLET PO (05:52)
[2023-02-26] MEDS: Ursodiol 250 MG Tablet PO ×2 (05:52→17:04)
[2023-02-26] MEDS: cycloBENZAPRine HCl 10 MG Tablet PO ×3 (05:53→21:51)
--- NOTE | 2023-02-26 08:16 | MDS.RN ---
Information for the mds was obtained from review of the clinical record, interview of resident, staff, and direct observation of resident's care.
[2023-02-26] MEDS: Furosemide 40 MG Tablet PO ×2 (08:19→14:52)
[2023-02-26] MEDS: Smz/Tmp Ds Tablet 0.5 TABLET PO (08:19)
[2023-02-26] MEDS: Amiodarone 200 MG Tablet PO (08:20)
[2023-02-26] MEDS: Cyanocobalamin 500 MCG Tablet 1000 MCG PO (08:20)
[2023-02-26] MEDS: Allopurinol 300 MG Tablet PO (08:20)
[2023-02-26] MEDS: Tacrolimus 0.5 MG Capsule PO ×2 (08:20→21:51)
[2023-02-26] MEDS: proMETHazine 25 MG Tablet PO (09:40)
[2023-02-26] MEDS: OXYCODONE HCL 10 MG PO ×2 (09:47→23:57)
--- NOTE | 2023-02-26 11:36 | CASEMGMT ---
Social Work Pt requesting to speak with this worker. SW presented to pt room with and OT present. Pt is wanting to DC when insurance issues LCD. SW educated to EDC 03/02 and offered to set DC date. All parties in agreement. Pt requesting [facility]/OT and a new rollator. SW educated to $60 OOP cost for rollator, if approved by insurance. pt agreeable to pay. SW faxed referral to [facility]. [place] [facility] [place] [facility]. Plan: DC home with 03/02, [facility] PT/OT, rollator Eunice Bright, OCCUPATIONAL HEALTH COORDINATOR BRICK DROPPER
[2023-02-26] MEDS: Metoprolol Tartrate 50 MG Tablet PO (17:04)
[2023-02-27 05:10] VITALS: BP 104/47; PULSE 63
[2023-02-27] MEDS: Metoprolol Tartrate 50 MG Tablet PO ×2 (05:10→17:14)
[2023-02-27] MEDS: APIXABAN 5 MG TABLET PO ×2 (05:10→17:14)
[2023-02-27] MEDS: Furosemide 40 MG Tablet PO ×2 (05:10→13:06)
[2023-02-27] MEDS: Nystatin Powder 15gm Bottle 1 APPLIC TOPICAL ×2 (05:10→17:15)
[2023-02-27] MEDS: Famotidine 20 MG Tablet PO ×2 (05:10→17:14)
[2023-02-27] MEDS: Levothyroxine 25 MCG TABLET PO (05:10)
[2023-02-27] MEDS: Ursodiol 250 MG Tablet PO ×2 (05:10→17:14)
[2023-02-27] MEDS: cycloBENZAPRine HCl 10 MG Tablet PO ×3 (05:10→19:42)
[2023-02-27] MEDS: Citalopram 10 MG Tablet PO (05:10)
[2023-02-27 06:00] VITALS: BMI 51.4
[2023-02-27 07:09] LABS: Absolute Lymphocyte Count 1.44 X10^3/uL (0.83-4.51); Absolute Neutrophil Count 3.7 X10^3/uL (2.0-7.7); Basophil# 0.04 X10^3/uL; Basophil% 0.7 % (0-1); Eosinophil# 0.43 X10^3/uL; Hematocrit 26.2 % (40-54); Hemoglobin 8.6 g/dL (13.0-16.5); Lymphocyte # 1.44 X10^3/ul (0.83-4.51); Lymphocyte % 23.6 % (19-41); Mean Corp Hgb Conc 32.8 g/dL (32-36); Mean Corpuscular Hgb 31.9 pg (27.0-32.0); Mean Platelet Vol. 10.2 fl (6.2-12.0); Monocyte# 0.46 X10^3/uL; Monocyte% 7.5 % (0-10); NRBC Flagged by Analyzer 0 % (0-5); Neutrophil # 3.72 X10^3/uL (2.7-7.7); Platelet Count 229 K/mm3 (150-450); RBC Distribution Width SD 53.5 fl (35.1-43.9); White Blood Count 6.1 K/mm3 (4.4-11.0)
[2023-02-27 07:34] LABS: Anion Gap 7 (5-15); BUN 41 mg/dL (7-18); BUN/Creat Ratio 19.9 RATIO (10-20); Calcium,Total 8.3 mg/dL (8.5-10.1); Chloride 106 mmol/L (98-107); Creatinine, Serum 2.06 mg/dL (0.70-1.30); EST Glomerular Filtration Rate 35 mL/min (>60); Est Glom Filt Rate - Afr Amer 42 mL/min (>60); Estimated Creatinine Clearance 38.39 ml/min; Glucose 168 mg/dL (74-106); Potassium 3.6 mmol/L (3.5-5.1); Sodium Level 139 mmol/L (136-145)
[2023-02-27] MEDS: proMETHazine 25 MG Tablet PO ×4 (08:18→23:12)
[2023-02-27] MEDS: Tacrolimus 0.5 MG Capsule PO ×2 (08:18→19:42)
[2023-02-27] MEDS: Smz/Tmp Ds Tablet 0.5 TABLET PO (08:19)
[2023-02-27] MEDS: Allopurinol 300 MG Tablet PO (08:20)
[2023-02-27] MEDS: Amiodarone 200 MG Tablet PO (08:20)
[2023-02-27] MEDS: Cyanocobalamin 500 MCG Tablet 1000 MCG PO (08:20)
[2023-02-27] MEDS: Ammonium Lactate 225 gm Bottle 1 APPLIC TOPICAL ×3 (12:56→19:45)
[2023-02-27 14:39] VITALS: BP 102/46; PULSE 64; RESP 16; TEMP 36.4; O2SAT 96
[2023-02-27 17:14] VITALS: PULSE 64
--- NOTE | 2023-02-27 20:07 | DS.PCM_ITS ---
Providers Date of Admission: 02/14/23 Primary Care Physician: Dr. Lance Bose MD Consultations 02/14/23 19:39 Consult: Gastroenterology Routine Consulting Provider: [facility] Reason for Consult: Hx liver transplant, assistance with management. EMERGENT Consult: No MD Notified: Yes Date Notified: 02/18/23 Time Notified: 13:09 Method of Notification: phone Comments:: spoke w/ office staff Reason For Visit: FTT & CKD Diagnosis Discharge Diagnosis (1) History of liver transplant: Status: Acute Code(s): Z94.4 - Liver transplant status (2) Fatigue: Status: Acute Code(s): R53.83 - Other fatigue (3) Hyperammonemia: Status: Resolved Code(s): E72.20 - Disorder of urea cycle metabolism, unspecified (4) AISSATOU (acute kidney injury): Status: Resolved Code(s): N17.9 - Acute kidney failure, unspecified (5) Chronic kidney disease, stage 3b: Status: Inactive Code(s): N18.32 - Chronic kidney disease, stage 3b Plan 62 year old male with below past medical history hospitalized for acute kidney injury due to dehydration, admitted to TCU with debility, here for rehabilitation, strengthening, prior to discharge home with . * Debility - PT/OT. * Pain - Oxycodone 10mg tid prn. * Bowel - Dulcolax 10mg pr daily prn. * Adult immunization - Administer pneumonia vaccine, covid19 vaccine, flu vaccine as appropriate. * DVT prophylaxis - on Eliquis. * Gout - Allopurinol 300mg daily. * Atrial fibrillation - Metoprolol 50mg bid, Amiodarone 200mg daily, Eliquis 5mg bid. * Depression - Citalopram 10mg daily, stable chronic halfway use, GDR not recommended. * GERD - Famotidine 20mg bid. * Coronary artery disease - Metoprolol 50mg bid, NTG 0.4mg prn. * Hx Liver transplant (FELIPE, alpha 1 antitrypsin) - Tacrolimus 0.5mg bid, Bactr im DS 1/2 tablet daily, Consult Dr. Bales for help with management. * Choledocholithiasis - Urosdiol 250mg bid. * Acute kidney injury - Monitor. * Chronic diastolic congestive heart failure - Metoprolol 50mg bid, hold Furosemide for now, daily weights. Medications at Discharge Home Medications cyclobenzaprine 10 mg tablet 10 mg PO TID PRN MUSCLE SPASMS 06/19/22 apixaban 5 mg tablet (Eliquis) 5 mg PO BID BLOOD THINNER 07/20/22 allopurinol 300 mg tablet 300 mg PO DAILY GOUT 11/04/22 tacrolimus 0.5 mg capsule, immediate-release 0.5 mg PO 0900,2100 LIVER TRANSPLANT 11/06/22 sulfamethoxazole 400 mg-trimethoprim 80 mg tablet 1 tab PO DAILY LIVER TRANSPLANT #90 tabs 11/20/22 metoprolol tartrate 50 mg tablet 50 mg PO BID BLOOD PRESSURE #180 tabs 11/27/22 nitroglycerin 0.4 mg sublingual tablet 0.4 mg sublingual Q5M PRN chest pain #25 tabs 11/27/22 citalopram 10 mg tablet 10 mg PO DAILY MOOD 02/08/23 amiodarone 200 mg tablet 200 mg PO DAILY BP 02/14/23 furosemide 40 mg tablet 40 mg PO DAILY Fluid retention 02/14/23 ursodiol 300 mg capsule 300 mg PO BID Gallstones 02/14/23 famotidine 20 mg tablet 20 mg PO BID 30 days #60 tabs 02/27/23 levothyroxine 25 mcg tablet 25 mcg PO DAILY@0600 30 days #30 tabs 02/27/23 Hospital Course Operations None Procedures None Summary of Care Provided Minutes Spent on Discharge: 35 Hospital Course: 62 year old male with below past medical history hospitalized for acute kidney injury due to dehydration, admitted to TCU with debility, here for rehabilitation, strengthening, prior to discharge home with . Discharge home with 03/02/2023, [facility] PT/OT, Rollator. Physical Exam Const alert General Appearance: cooperative HEENT normocephalic Eyes PERRL and EOMs intact bilaterally Neck supple, no JVD and no carotid bruits Resp normal respiratory effort, normal air movement and clear to auscultation bilaterally Cardio regular rate and regular rhythm GI normal to inspection, nondistended, normoactive bowel sounds, non-tender and non-distended Extremity normal capillary refill General Extremity: Negative for edema Skin no rashes or lesions noted General Skin Exam: no breakdown Psych affect normal Appearance: appropriate Weight / BMI Weight Weight: 162.976 kg Body Mass Index (BMI) 51.4 ABG / Lab / Microbiology Data 02/27/23 05:19 02/27/23 05:19 Laboratory: Laboratory Results - last 24 hr 02/27/23 05:19: WBC 6.1, RBC 2.70 L, Hgb 8.6 L, Hct 26.2 L, MCV 97.0 H, MCH 31 .9, MCHC 32.8, RDW Std Deviation 53.5 H, RDW Coeff of Maciel 15.0 H, Plt Count 229, MPV 10.2, Immature Gran % (Auto) 0.200, Neut % (Auto) 61.0, Lymph % (Auto) 23.6, [place] % (Auto) 7.5, Eos % (Auto) 7.0 H, Baso % (Auto) 0.7, Absolute Neuts (auto) 3.7, Absolute Lymphs (auto) 1.44, Nucleated RBC % 0, Sodium 139, Potassium 3.6, Chloride 106, Carbon Dioxide 26.0, Anion Gap 7, BUN 41 H, Creatinine 2.06 H, Estim Creat Clear Calc 38.39, Est GFR (MDRD) Af Amer 42 L, Est GFR (MDRD) Non-Af 35 L, BUN/Creatinine Ratio 19.9, Glucose 168 H, Calcium 8.3 L Microbiology: Microbiology 02/20/23 21:57 Urine, Catheterized Urine Culture - Final Culture exhibits no growth. 02/16/23 11:55 Nasal Secretion SARS-CoV-2 Antigen (Rapid) - Final D/C Instructions Discharge Diet: No restrictions Discharge Activity: Return to Normal Activity, May Shower and Use Walker Weight Bearing Status: Weight bearing as tolerated Call your doctor if you observe: Fever of 101 or Higher, Inability to urinate, Inability to have a bowel movement, Shortness of breath, Dizziness, Fainting spells, Swelling in the ankles, Chest pain and Uncontrolled pain Additional Instructions: Discharge home with 03/02/2023, [facility] PT/OT, Rollator. Please Follow Up With: Dr. Monae When: As scheduled. Meaningful Use Info Meaningful Use Diagnoses (Choose all that apply): None applicable Discharge Plan Admission Admit Date/Time: 02/14/23 16:28 Primary Reason for Your Visit: Debility. Attending Provider: Lance Bose Chi Primary Care Provider: Lance Bose Chi Instructions Additional Instructions / Restrictions: Discharge home with 03/02/2023, [facility] PT/OT, Rollator. Discharge Orders/Prescriptions Prescriptions: New levothyroxine 25 mcg Tablet 25 mcg PO DAILY@0600 30 Days Qty: 30 0RF famotidine 20 mg Tablet 20 mg PO BID 30 Days Qty: 60 0RF Continued nitroglycerin 0.4 mg tablet, sublingual 0.4 mg sublingual Q5M PRN (Reason: chest pain) Qty: 25 1RF Rx Instructions: do not exceed 3 doses per episode metoprolol tartrate 50 mg tablet 50 mg PO BID Qty: 180 1RF cyclobenzaprine 10 mg tablet 10 mg PO TID PRN (Reason: MUSCLE SPASMS) Eliquis 5 mg tablet 5 mg PO BID allopurinol 300 mg tablet 300 mg PO DAILY tacrolimus 0.5 mg capsule 0.5 mg PO 0900,2100 citalopram 10 mg tablet 10 mg PO DAILY Patient Comments: TAKE 1 TABLET BY MOUTH DAILY furosemide 40 mg tablet 40 mg PO DAILY amiodarone 200 mg tablet 200 mg PO DAILY ursodiol 300 mg capsule 300 mg PO BID sulfamethoxazole-trimethoprim 400-80 mg tablet 1 tab PO DAILY Qty: 90 3RF Discontinued famotidine [Pepcid AC] 20 mg tablet 20 mg PO BID ondansetron 4 mg tablet,disintegrating 4 mg PO Q8H PRN (Reason: NAUSEA ) oxycodone 10 mg tablet 10 mg PO TID metronidazole 500 mg tablet 500 mg PO DAILY amlodipine 5 mg tablet 5 mg PO DAILY aspirin 81 mg tablet,delayed release (DR/EC) 81 mg PO BREAKFAST neomycin 500 mg tablet 500 mg PO BID Referrals / Follow Up: Lance Bose Chi, MD [Primary Care Provider] - Disposition Disposition (needs filled in before D/C Order can be placed): Home, Self Care
[2023-02-27] MEDS: OXYCODONE HCL 10 MG PO (23:11)
[2023-02-28] MEDS: Furosemide 40 MG Tablet PO ×2 (04:45→14:04)
[2023-02-28] MEDS: Famotidine 20 MG Tablet PO ×2 (04:45→16:49)
[2023-02-28] MEDS: proMETHazine 25 MG Tablet PO (04:45)
[2023-02-28 04:46] VITALS: BP 95/42; PULSE 63
[2023-02-28] MEDS: Ursodiol 250 MG Tablet PO ×2 (04:46→16:49)
[2023-02-28] MEDS: cycloBENZAPRine HCl 10 MG Tablet PO ×3 (04:46→20:59)
[2023-02-28] MEDS: APIXABAN 5 MG TABLET PO ×2 (04:46→16:48)
[2023-02-28] MEDS: Citalopram 10 MG Tablet PO (04:46)
[2023-02-28] MEDS: Levothyroxine 25 MCG TABLET PO (04:46)
[2023-02-28] MEDS: Nystatin Powder 15gm Bottle 1 APPLIC TOPICAL ×2 (04:48→16:49)
[2023-02-28] MEDS: Ammonium Lactate 225 gm Bottle 1 APPLIC TOPICAL ×3 (04:49→20:56)
[2023-02-28 05:48] VITALS: BMI 51.2
[2023-02-28 05:59] LABS: Absolute Lymphocyte Count 1.52 X10^3/uL (0.83-4.51); Absolute Neutrophil Count 3.6 X10^3/uL (2.0-7.7); Basophil# 0.04 X10^3/uL; Basophil% 0.7 % (0-1); Eosinophil# 0.42 X10^3/uL; Eosinophils% 6.9 % (0-5); Hematocrit 27.5 % (40-54); Hemoglobin 8.8 g/dL (13.0-16.5); Lymphocyte # 1.52 X10^3/ul (0.83-4.51); Mean Corpuscular Hgb 31.1 pg (27.0-32.0); Mean Corpuscular Volume 97.2 fL (80-94); Mean Platelet Vol. 9.9 fl (6.2-12.0); Monocyte# 0.48 X10^3/uL; Monocyte% 7.9 % (0-10); NRBC Flagged by Analyzer 0 % (0-5); Neutrophil # 3.61 X10^3/uL (2.7-7.7); Neutrophil % 59.2 % (47-70); Platelet Count 232 K/mm3 (150-450); RBC Distribution Width CV 15.1 % (11.6-14.6); RBC Distribution Width SD 53.4 fl (35.1-43.9); Red Blood Count 2.83 M/mm3 (4.6-6.2); White Blood Count 6.1 K/mm3 (4.4-11.0)
[2023-02-28 06:41] LABS: Anion Gap 4 (5-15); BUN 38 mg/dL (7-18); BUN/Creat Ratio 21.1 RATIO (10-20); Calcium,Total 8.1 mg/dL (8.5-10.1); Chloride 108 mmol/L (98-107); EST Glomerular Filtration Rate 41 mL/min (>60); Est Glom Filt Rate - Afr Amer 49 mL/min (>60); Estimated Creatinine Clearance 43.94 ml/min; Glucose 143 mg/dL (74-106); Potassium 3.5 mmol/L (3.5-5.1); Sodium Level 140 mmol/L (136-145)
[2023-02-28] MEDS: OXYCODONE HCL 10 MG PO (08:26)
[2023-02-28] MEDS: Smz/Tmp Ds Tablet 0.5 TABLET PO (08:26)
[2023-02-28] MEDS: Allopurinol 300 MG Tablet PO (08:27)
[2023-02-28] MEDS: Amiodarone 200 MG Tablet PO (08:27)
[2023-02-28] MEDS: Cyanocobalamin 500 MCG Tablet 1000 MCG PO (08:27)
[2023-02-28] MEDS: Tacrolimus 0.5 MG Capsule PO ×2 (08:28→20:56)
[2023-02-28] MEDS: Pneumococcal Vaccine 20 Valent 0.5 ML Syringe IM (10:40)
--- NOTE | 2023-02-28 10:52 | NURSING ---
pt and pt concerned regarding phenergan causing pt to sleep way too much. Takes zofran at home but compazine works best per pt, but old insurance would not cover it. does not want pt taking any more phenergan at this time. will udpate dr aburto.
[2023-02-28 11:00] VITALS: PULSE 86; RESP 18; O2SAT 98
--- NOTE | 2023-02-28 13:36 | NURSING ---
pt c/o LT LE cramping w/dorsiflexion, BLE's edematous and reddened. pt had just completed ATBs for cellulitis. Dr bose updated, new order for doppler BLEs. dr bose also updated on pt and concern with phenergan use causing pt to sleep alot. Would like to go back on zofran or compazine for Nausea. new order for PRN compazine and Dr Bose sent telescript to [facility] for discharge.
--- NOTE | 2023-02-28 13:45 | CASEMGMT ---
Social Work BIMS () and PHQ-9 (06/28) completed for MDS assessment. Eunice Bright, [employer]
[2023-02-28 14:00] VITALS: BP 109/62; PULSE 124; RESP 12; TEMP 36.6
[2023-02-28 16:49] VITALS: PULSE 71
[2023-02-28] MEDS: Metoprolol Tartrate 50 MG Tablet PO (16:49)
--- NOTE | 2023-02-28 19:34 | NURSING ---
notified of negative doppler report, no new orders.
[2023-03-01] MEDS: proCHLORPERazine 5 MG Tablet 10 MG PO (00:36)
--- NOTE | 2023-03-01 00:44 | NURSING ---
Patient activates call light, pleasant and talkative. C/o nausea and requests PRN Compazine, administered as ordered per pt. request. Patient requests to see if able to discharge home 03/01 instead of planned 03/02, patient states everyone has been great here but I am just ready to get back home, I was talking with my about it before bed. Confidential voicemail left for oncology social worker and written communication left for Dr. Otoole review in AM. Patient expresses thanks. No distress observed or reported. Denies further requests. Call light in reach.
[2023-03-01 06:00] VITALS: BMI 51.0
[2023-03-01 06:11] LABS: Absolute Lymphocyte Count 1.76 X10^3/uL (0.83-4.51); Absolute Neutrophil Count 4.1 X10^3/uL (2.0-7.7); Basophil# 0.04 X10^3/uL; Basophil% 0.6 % (0-1); Eosinophil# 0.45 X10^3/uL; Eosinophils% 6.4 % (0-5); Hematocrit 28.3 % (40-54); Hemoglobin 9.2 g/dL (13.0-16.5); Lymphocyte # 1.76 X10^3/ul (0.83-4.51); Lymphocyte % 25.2 % (19-41); Mean Corp Hgb Conc 32.5 g/dL (32-36); Mean Corpuscular Hgb 31.5 pg (27.0-32.0); Mean Corpuscular Volume 96.9 fL (80-94); Monocyte# 0.63 X10^3/uL; NRBC Flagged by Analyzer 0 % (0-5); Neutrophil # 4.07 X10^3/uL (2.7-7.7); Neutrophil % 58.4 % (47-70); Platelet Count 262 K/mm3 (150-450); RBC Distribution Width SD 52.9 fl (35.1-43.9); Red Blood Count 2.92 M/mm3 (4.6-6.2)
[2023-03-01 06:42] VITALS: BP 104/50; PULSE 64
[2023-03-01] MEDS: Famotidine 20 MG Tablet PO (06:42)
[2023-03-01] MEDS: APIXABAN 5 MG TABLET PO (06:42)
[2023-03-01] MEDS: Metoprolol Tartrate 50 MG Tablet PO (06:42)
[2023-03-01] MEDS: Levothyroxine 25 MCG TABLET PO (06:42)
[2023-03-01] MEDS: Furosemide 40 MG Tablet PO (06:42)
[2023-03-01] MEDS: Ursodiol 250 MG Tablet PO (06:43)
[2023-03-01] MEDS: cycloBENZAPRine HCl 10 MG Tablet PO (06:43)
[2023-03-01] MEDS: Nystatin Powder 15gm Bottle 1 APPLIC TOPICAL (06:43)
[2023-03-01] MEDS: Citalopram 10 MG Tablet PO (06:44)
[2023-03-01] MEDS: Ammonium Lactate 225 gm Bottle 1 APPLIC TOPICAL (06:45)
[2023-03-01 08:53] VITALS: BP 113/57; PULSE 63; RESP 16; TEMP 37.2; O2SAT 96
[2023-03-01] MEDS: Smz/Tmp Ds Tablet 0.5 TABLET PO (08:56)
[2023-03-01] MEDS: Amiodarone 200 MG Tablet PO (08:57)
[2023-03-01] MEDS: Cyanocobalamin 500 MCG Tablet 1000 MCG PO (08:57)
[2023-03-01] MEDS: Allopurinol 300 MG Tablet PO (08:57)
[2023-03-01] MEDS: Tacrolimus 0.5 MG Capsule PO (08:57)
--- NOTE | 2023-03-01 09:32 | CASEMGMT ---
Social Work Pt requesting to DC home today, instead of tomorrow. SW spoke with IDT and all in agreement. SW spoke with pt about DC today. Pt appreciative. SW informed pt that rollator will be shipped to his home. Plan: DC home 03/01 NABEEL Meier
--- NOTE | 2023-03-01 10:18 | NURSING ---
Verified count of patient's home medication with HILARIA Cooper. Sent medication home with patient.
--- NOTE | 2023-03-01 16:02 | PCM.PN.BLA ---
Progress Note Zackary Bonilla was to be discharged on 03/02/23 but, he decided to go home on 03/01/23. I did not see this patient and will continue the orders and discharge previously done by Dr. Bose.
== END 2023-03-01 10:18 | disposition home or self-care (01) | DRG 683 ==
PROVIDERS: Internal Medicine Gastroenterology; Admitting Provider Family Medicine Geriatric Medicine; PCP Family Medicine Geriatric Medicine; Visit Provider Family Medicine Geriatric Medicine
DX: N17.9 Acute kidney failure, unspecified (principal); I50.32 Chronic diastolic (congestive) heart failure; Z68.43 Body mass index [BMI] 50.0-59.9, adult; Z94.4 Liver transplant status; D63.8 Anemia in other chronic diseases classified elsewhere; K80.50 Calculus of bile duct without cholangitis or cholecystitis without obstruction; E11.22 Type 2 diabetes mellitus with diabetic chronic kidney disease; I48.91 Unspecified atrial fibrillation; N18.32 Chronic kidney disease, stage 3b; E66.01 Morbid (severe) obesity due to excess calories; I25.10 Atherosclerotic heart disease of native coronary artery without angina pectoris; K21.9 Gastro-esophageal reflux disease without esophagitis; M10.9 Gout, unspecified; I25.2 Old myocardial infarction; F32.A Depression, unspecified; Z79.899 Other long term (current) drug therapy; Z79.82 Long term (current) use of aspirin; Z79.01 Long term (current) use of anticoagulants; Z23 Encounter for immunization
CPT/HCPCS: 36415; 76536; 80048; 80053; 81001; 82105; 82607; 84439; 84443; 84481; 85025; 85610; 85730; 87086; 87426; 90677; 92522; 94762; 97110; 97162; 97166; 97530; 97535; 97802; G0009

== ENCOUNTER → 2023-02-18 | Outpatient (CLI) | payer MEDICARE, SELFPAY ==
--- NOTE | 2023-02-18 09:31 | VDLE_ITS ---
Reason For Study: Right leg pain RIGHT GSV is normal. CFV is compressible, spontaneous, phasic, competent and demonstrates normal augmentation. FV is compressible, spontaneous, phasic, competent and demonstrates normal augmentation. POP V is compressible, spontaneous, phasic, competent and demonstrates normal augmentation. T/P Trunk is compressible. PTV is compressible. RT PerV is compressible. Procedure This is a venous duplex using B-mode, color flow and spectral Doppler. Exam performed portable in patient room. Technically difficult to visualize calf veins due to edema. A preliminary report was called and/or faxed to TCU. VL/Venous Duplex US, Unilateral Interpretation Summary There is no evidence of right lower extremity deep vein thrombosis. Right great saphenous vein appears patent and compressible segmentally. Technically difficult to visualize calf veins secondary to soft tissue edema Ordering Physician: Lance Bose Chi Referring Physician: Lance Bose Chi Performed By: Rolanda Harper RVT
== END | disposition home or self-care (01) ==
LOC: CVS 09:12
PROVIDERS: PCP Family Medicine Geriatric Medicine; Visit Provider Family Medicine Geriatric Medicine
DX: M79.661 Pain in right lower leg (principal)
CPT/HCPCS: 93971

== ENCOUNTER → 2023-02-28 | Outpatient (CLI) | payer MEDICARE, SELFPAY ==
--- NOTE | 2023-02-28 14:02 | VDLE_ITS ---
Reason For Study: Bilateral leg pain RIGHT LEFT GSV is normal. GSV is normal. CFV is compressible, spontaneous, phasic, CFV is compressible, spontaneous, phasic, competent and demonstrates normal competent, and demonstrates normal augmentation. augmentation. FV is compressible, spontaneous, phasic, FV is compressible, spontaneous, phasic, competent and demonstrates normal competent and demonstrates normal augmentation. augmentation. POP V is compressible, spontaneous, phasic, POP V is compressible, spontaneous, phasic, competent and demonstrates normal competent and demonstrates normal augmentation. augmentation. T/P Trunk is compressible. T/P Trunk is compressible. PTV is compressible. PTV is compressible. RT PerV is compressible. LT PerV is compressible. Procedure This is a venous duplex using B-mode, color flow and spectral Doppler. Exam performed portable in patient room. Technically difficult to visualize calf veins due to edema. A preliminary report was called and/or faxed to TCU. VL/Venous Duplex US - Gio Extrem Interpretation Summary No evidence for acute deep venous thrombosis bilateral lower extremities with p atent and compressible bilateral great saphenous veins. Difficult to visualize calf veins secondary to edema Ordering Physician: Lance Bose Chi Referring Physician: Lance Bose Chi Performed By: Rolanda Harper RVT
== END | disposition home or self-care (01) ==
LOC: CVS 14:01
PROVIDERS: PCP Family Medicine Geriatric Medicine; Referring Provider Family Medicine Geriatric Medicine; Visit Provider Family Medicine Geriatric Medicine
DX: M79.604 Pain in right leg (principal); M79.605 Pain in left leg
CPT/HCPCS: 93970

== ENCOUNTER → 2023-03-07 | Outpatient (CLI) | payer MEDICARE, SELFPAY ==
[2023-03-07 14:00] LABS: Anion Gap 5 (5-15); BUN 28 mg/dL (7-18); BUN/Creat Ratio 14.4 RATIO (10-20); Calcium,Total 8.7 mg/dL (8.5-10.1); Chloride 105 mmol/L (98-107); Creatinine, Serum 1.94 mg/dL (0.70-1.30); EST Glomerular Filtration Rate 37 mL/min (>60); Est Glom Filt Rate - Afr Amer 45 mL/min (>60); Glucose 164 mg/dL (74-106); Potassium 3.9 mmol/L (3.5-5.1); Sodium Level 138 mmol/L (136-145)
== END | disposition home or self-care (01) ==
LOC: POLAB3 12:32
PROVIDERS: PCP Family Medicine Geriatric Medicine; Visit Provider Family Medicine Geriatric Medicine
DX: I50.32 Chronic diastolic (congestive) heart failure (principal)
CPT/HCPCS: 36415; 80048

== ENCOUNTER 2023-03-10 10:45 | Observation (INO) | payer MEDICARE, SELFPAY ==
[2023-03-10] VITALS (8 sets, daily range): BP systolic 98–110; BP diastolic 52–68; PULSE 56–90; RESP 16–20; TEMP 36.6–36.8; O2SAT 92–100; BMI 51.5; BMI 50.5
--- NOTE | 2023-03-10 11:02 | EX.ED.UPPERE ---
HPI History of Present Illness Chief Complaint: Upper Extremity Injury Informant: patient Narrative Narrative: Brought in by EMS from home mechanical fall left upper arm injury. Patient emesis walker at baseline sitting in the edge of the bed he is trying to get up lost his balance falling outstretched arm feeling a snap in his upper arm. Reverse shoulder replacement 3 years ago at [facility] however seen Dr. Adames in the past with injections. He is on Eliquis for history of paroxysmal A-fib. Denies head injuries denies neck or back pain. No lower extremity pain. Status post 2 rounds of fentanyl 50 mcg by EMS prior to arrival. He is placed in upper extremity splint. Pain worse with movement. 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 Denies headache nausea or vomiting. Prior similar symptoms: No PFSH PFSH Medical History (HFpEF) heart failure with preserved ejection fraction Acidosis, lactic Acute hypotension Adult failure to thrive Anemia of chronic disease Ascites Atherosclerotic heart disease of [place] coronary artery without angina pectoris Atrial fibrillation Atrial flutter with rapid ventricular response (02/02/21) CAD (coronary artery disease) Cellulitis Chronic kidney disease, stage 3b Chronic renal failure, stage 3 (moderate) Cirrhosis Coronary artery disease Gout History of non-ST elevation myocardial infarction (NSTEMI) (12/29/20) Hypertension Kidney disease Morbid obesity Morbid obesity Multiple falls FELIPE (nonalcoholic steatohepatitis) Nonsustained paroxysmal ventricular tachycardia (12/2020) Paroxysmal atrial fibrillation Right hip pain Venous insufficiency Vertigo, central Weakness Home Medications cyclobenzaprine 10 mg tablet 10 mg PO TID PRN MUSCLE SPASMS 06/19/22 [History Last Taken 03/09/23] apixaban 5 mg tablet (Eliquis) 5 mg PO BID BLOOD THINNER 07/20/22 [History Last Taken 03/10/23] allopurinol 300 mg tablet 300 mg PO DAILY GOUT 11/04/22 [History Last Taken 03/10/23] tacrolimus 0.5 mg capsule, immediate-release 0.5 mg PO 0900,2100 LIVER TRANSPLANT 11/06/22 [History Last Taken 03/10/23] sulfamethoxazole 400 mg-trimethoprim 80 mg tablet 1 tab PO DAILY LIVER TRANSPLANT #90 tabs 11/20/22 [Rx Last Taken 03/09/23] metoprolol tartrate 50 mg tablet 50 mg PO BID BLOOD PRESSURE #180 tabs 11/27/22 [Rx Last Taken 03/10/23] nitroglycerin 0.4 mg sublingual tablet 0.4 mg sublingual Q5M PRN chest pain #25 tabs 11/27/22 [Rx Last Taken Unknown] citalopram 10 mg tablet 10 mg PO DAILY MOOD 02/08/23 [History Last Taken Unknown] amiodarone 200 mg tablet 200 mg PO DAILY BP 02/14/23 [History Last Taken 03/09/23] furosemide 40 mg tablet 80 mg PO DAILY Fluid retention 02/14/23 [History Last Taken Unknown] ursodiol 300 mg capsule 300 mg PO BID Gallstones 02/14/23 [History Last Taken 03/10/23] famotidine 20 mg tablet 20 mg PO BID 30 days #60 tabs 02/27/23 [Rx Last Taken 03/10/23] levothyroxine 25 mcg tablet 25 mcg PO DAILY@0600 30 days #30 tabs 02/27/23 [Rx Last Taken Unknown] amlodipine 5 mg tablet 5 mg PO DAILY HTN 03/10/23 [History Last Taken Unknown] oxycodone 10 mg tablet 10 mg PO Q8H BTP 03/10/23 [History Last Taken 03/09/23] prochlorperazine maleate 5 mg tablet 10 mg PO Q6H PRN PRN NAUSEA/VOMITING 03/10/23 [History Last Taken 03/09/23] Allergy/AdvReac Type Severity Reaction Status Date / Time morphine Allergy Hives Verified 03/10/23 10:49 pravastatin [From Pravachol] Allergy Hives Verified 03/10/23 10:49 Aoycaxt-TEZ-TrK Reductase Allergy Hives Verified 03/10/23 10:49 Inhibitor [Oefsmmj-Vtn-Mbs Reductase Inhibitor] vancomycin Allergy NEEDS Verified 03/10/23 10:49 FOLLOW-UP zolpidem tartrate Allergy Hives Verified 03/10/23 10:49 [From Ambien] everolimus AdvReac Swelling Verified 03/10/23 10:49 gabapentin AdvReac NEEDS Verified 03/10/23 10:49 FOLLOW-UP Family History Mother Heart disease Father Heart disease Surgical History H/O shoulder surgery History of cardioversion (02/02/21) History of cataract extraction with lens replacement (~11/22/22) History of hip surgery Liver transplant recipient S/P PTCA (percutaneous transluminal coronary angioplasty) Status post liver transplant (07/2017) Social History household members: spouse Smoking Status: Never smoker alcohol intake: former substance use type: does not use caffeine: No ROS ROS ED Constitutional Constitutional ED: Denies chills, fever(s) or sweats Eyes Eyes: Denies change in vision ENT ENT ED: Denies dysphagia or sore throat Cardiovascular Cardiovascular: Denies chest pain, leg edema, palpitations or racing heartbeat Respiratory/Chest Respiratory/Chest: Denies cough, dyspnea or dyspnea on exertion Gastrointestinal Gastrointestinal: Denies abdominal pain, diarrhea, nausea or vomiting Genitourinary Genitourinary ED: Denies dysuria, hematuria or urinary frequency Musculoskeletal Musculoskeletal: Reports extremity pain; Denies back pain or neck pain Integumentary Denies rash or wounds Neurologic Neurologic: Denies headache(s), paresthesias or weakness EXAM Physical Exam Const Vital Signs: 03/10/23 10:46 Temperature 98.2 F Temperature Source Oral Pulse Rate 56 L Respiratory Rate 18 Blood Pressure 110/58 L Blood Pressure Mean 75 Pulse Ox 97 Oxygen Delivery Method Room Air Positive well nourished and well developed Constitutional Narrative: ACS 15 General Appearance ED: well developed and NAD HEENT Reports moist mucous membranes normocephalic and atraumatic Eyes PERRL, EOMs intact bilaterally and conjunctivae normal General Eye ED: Yes normal appearance of both eyes Neck no lymphadenopathy and supple General: Negative for tenderness Chest Wall Chest: Negative for tenderness Resp normal respiratory effort and normal air movement Effort and Inspection: symmetric chest movement; Negative for respiratory distress Cardio regular rate, regular rhythm and no murmurs Peripheral Pulses: pulses 2+ throughout GI normal to inspection, nondistended, normoactive bowel sounds and non-tender Palpation: Negative for guarding or rebound tenderness present Back/Spine no CVA tenderness and no thoracic nor lumbar tenderness Extremity Extremity Narrative: Lower extremities: Negative logroll. Right upper extremity: Full range of motion without any pain. Left upper extremity: Vacuum splint/sling was removed, was able to flex extend the elbow without any issues. There is tenderness to the mid distal humerus slight deformity noted. There is a large anterior deltoid scar. No deformities of the shoulder. Pulses are intact distally. Soft compartments. General Extremety ED: Negative for edema or tenderness General Extremity: Negative for edema Neuro oriented x3 and no sensory deficits noted Sensorium / Orientation: awake and alert Skin no rashes or lesions noted and no wounds MDM MDM MDM Narrative Medical decision making narrative: Interventions / MDM: Differential diagnosis: Humerus fracture, fall Diagnosis considered but do not suspect: N/A My EKG interpretation: N/A Imaging independently reviewed and interpreted by myself: Left humerus 2 views: Periprosthetic fracture just distal to the hardware also read by radiology. External documents reviewed: N/A Test considered but not ordered:N/A ED course: Patient with a fall suspected humeral fracture, he ambulates at baseline with a walker. With concerns of fracture, there will be difficulty taking care of himself at home. IV is already established blood drawn x-ray of the humerus will be ordered. He is on anticoagulation medicines. Denies head injuries or any headache or nausea or vomiting. Fentanyl IV ordered for additional pain control. X-ray confirms periprosthetic fracture. I did discuss with orthopedist on Dr. Varela, evaluated the films, he states nondisplaced can possibly heal nonoperatively and that would be his plans with a special splint. Discussed his underlying condition needing a walker and will likely need admission for rehab. He was seen as an inpatient. Agrees with coapt splint to be placed for mobilization as best as we can. Laboratory studies with stable anemia, CKD findings. Procedure note: Splinting. public health assistant x2. Nylon sleeve was placed up to the shoulder, Kerlix dressing was placed, a 5 inch posterior splint along with a 5 inch coapt splint was placed on the upper left arm. Zachary wrap used to secure. Patient Toller procedure well. However after securing placed arm down his splint did slide to the proximal humerus, this was above the fracture site. Neurovascular intact post splinting. Patient tolerated procedure well. 1250: Will Discuss with hospitalist for admission for planned rehab. Spoke with Dr. Traci Monae for admission. Re-evaluation: stable Disposition discussed with patient/family/significant other: Case discussed with consulting clinician: Orthopedist, Dr. Varela, hospitalist This note was generated with [employer] dictation software. It may contain incorrect words, spelling, and punctuation that were not noted in checking the note before signing. Discharge Plan Dx/Rx/DC Orders Clinical Impression: Periprosthetic fracture around internal prosthetic joint, History of liver transplant, PAF (paroxysmal atrial fibrillation), Closed left humeral fracture, Chronic kidney disease, Anemia in chronic illness, Chronic anticoagulation Disposition Disposition: Acute Care Hospital [facility]
[2023-03-10 11:27] LABS: Absolute Lymphocyte Count 1.39 X10^3/uL (0.83-4.51); Basophil# 0.04 X10^3/uL; Basophil% 0.6 % (0-1); Eosinophil# 0.24 X10^3/uL; Eosinophils% 3.8 % (0-5); Hematocrit 29.5 % (40-54); Hemoglobin 9.7 g/dL (13.0-16.5); Lymphocyte # 1.39 X10^3/ul (0.83-4.51); Lymphocyte % 22.2 % (19-41); Mean Corp Hgb Conc 32.9 g/dL (32-36); Mean Corpuscular Hgb 31.7 pg (27.0-32.0); Mean Corpuscular Volume 96.4 fL (80-94); Monocyte# 0.55 X10^3/uL; Monocyte% 8.8 % (0-10); NRBC Flagged by Analyzer 0 % (0-5); Neutrophil # 4.02 X10^3/uL (2.7-7.7); Neutrophil % 64.1 % (47-70); Platelet Count 251 K/mm3 (150-450); RBC Distribution Width CV 15.1 % (11.6-14.6); Red Blood Count 3.06 M/mm3 (4.6-6.2); White Blood Count 6.3 K/mm3 (4.4-11.0)
--- NOTE | 2023-03-10 11:28 | ED.RN ---
pt had 100mcg fentynal in squad. pt reports pain tolerable at rest. holding ed fentynal order at this time
[2023-03-10 11:36] LABS: International Normalized Ratio 1.7; Prothrombin Time (Protime)PT. 19.8 SECONDS (11.7-14.9)
[2023-03-10 11:37] LABS: Partial Thromboplast Time 38.9 Seconds (24.1-36.2)
--- NOTE | 2023-03-10 11:40 | RAD_ITS ---
STUDY: X-RAY - LEFT HUMERUS REASON FOR EXAM: Male, 62 years old. Injury TECHNIQUE: Frontal and lateral view(s) of the humerus. COMPARISON: None. FINDINGS: There is reverse total shoulder replacement. There is fixation plate and screws of the lateral humerus. There is periprosthetic fracture of the shaft of the humerus at the distal aspect of the hardware. There is no demonstrated soft tissue abnormality. RAD/Humerus min 2 Views IMPRESSION: Proximal humerus fracture. Electronically Signed: Guido Agarwal MD at 12:33 EDT ,
[2023-03-10 11:41] LABS: Anion Gap 4 (5-15); BUN 17 mg/dL (7-18); BUN/Creat Ratio 10.6 RATIO (10-20); Calcium,Total 7.4 mg/dL (8.5-10.1); Chloride 116 mmol/L (98-107); EST Glomerular Filtration Rate 47 mL/min (>60); Est Glom Filt Rate - Afr Amer 57 mL/min (>60); Estimated Creatinine Clearance 49.08 ml/min; Glucose 98 mg/dL (74-106); Potassium 3.4 mmol/L (3.5-5.1); Sodium Level 143 mmol/L (136-145)
[2023-03-10] MEDS: fentaNYL 100 MCG/2 ML Ampul 50 MCG IV ×2 (11:51→12:31)
--- NOTE | 2023-03-10 13:26 | PCM.HP.STD ---
HPI - General General Date of Admission: 03/10/23 Date of Service: 03/10/23 Chief Complaint: Left shoulder pain status post mechanical fall HPI Narrative ESTEFANIA MILLER, is a 62 M who presented [facility] Medical History (HFpEF) heart failure with preserved ejection fraction Acidosis, lactic Acute hypotension Adult failure to thrive Anemia of chronic disease Ascites Atherosclerotic heart disease of [place] coronary artery without angina pectoris Atrial fibrillation Atrial flutter with rapid ventricular response (02/02/21) CAD (coronary artery disease) Cellulitis Chronic kidney disease, stage 3b Chronic renal failure, stage 3 (moderate) Cirrhosis Coronary artery disease Gout History of non-ST elevation myocardial infarction (NSTEMI) (12/29/20) Hypertension Kidney disease Morbid obesity Morbid obesity Multiple falls FELIPE (nonalcoholic steatohepatitis) Nonsustained paroxysmal ventricular tachycardia (12/2020) Paroxysmal atrial fibrillation Right hip pain Venous insufficiency Vertigo, central Weakness Home Medications cyclobenzaprine 10 mg tablet 10 mg PO TID PRN MUSCLE SPASMS 06/19/22 [History Last Taken 03/09/23] apixaban 5 mg tablet (Eliquis) 5 mg PO BID BLOOD THINNER 07/20/22 [History Last Taken 03/10/23] allopurinol 300 mg tablet 300 mg PO DAILY GOUT 11/04/22 [History Last Taken 03/10/23] tacrolimus 0.5 mg capsule, immediate-release 0.5 mg PO 0900,2100 LIVER TRANSPLANT 11/06/22 [History Last Taken 03/10/23] sulfamethoxazole 400 mg-trimethoprim 80 mg tablet 1 tab PO DAILY LIVER TRANSPLANT #90 tabs 11/20/22 [Rx Last Taken 03/09/23] metoprolol tartrate 50 mg tablet 50 mg PO BID BLOOD PRESSURE #180 tabs 11/27/22 [Rx Last Taken 03/10/23] nitroglycerin 0.4 mg sublingual tablet 0.4 mg sublingual Q5M PRN chest pain #25 tabs 11/27/22 [Rx Last Taken Unknown] citalopram 10 mg tablet 10 mg PO DAILY MOOD 02/08/23 [History Last Taken Unknown] amiodarone 200 mg tablet 200 mg PO DAILY BP 02/14/23 [History Last Taken 03/09/23] furosemide 40 mg tablet 80 mg PO DAILY Fluid retention 02/14/23 [History Last Taken Unknown] ursodiol 300 mg capsule 300 mg PO BID Gallstones 02/14/23 [History Last Taken 03/10/23] famotidine 20 mg tablet 20 mg PO BID 30 days #60 tabs 02/27/23 [Rx Last Taken 03/10/23] levothyroxine 25 mcg tablet 25 mcg PO DAILY@0600 30 days #30 tabs 02/27/23 [Rx Last Taken Unknown] amlodipine 5 mg tablet 5 mg PO DAILY HTN 03/10/23 [History Last Taken Unknown] oxycodone 10 mg tablet 10 mg PO Q8H BTP 03/10/23 [History Last Taken 03/09/23] prochlorperazine maleate 5 mg tablet 10 mg PO Q6H PRN PRN NAUSEA/VOMITING 03/10/23 [History Last Taken 03/09/23] Allergy/AdvReac Type Severity Reaction Status Date / Time morphine Allergy Hives Verified 03/10/23 10:49 pravastatin [From Pravachol] Allergy Hives Verified 03/10/23 10:49 Xqsnioc-VPU-NbJ Reductase Allergy Hives Verified 03/10/23 10:49 Inhibitor [Ywszedp-Chh-Lng Reductase Inhibitor] vancomycin Allergy NEEDS Verified 03/10/23 10:49 FOLLOW-UP zolpidem tartrate Allergy Hives Verified 03/10/23 10:49 [From Ambien] everolimus AdvReac Swelling Verified 03/10/23 10:49 gabapentin AdvReac NEEDS Verified 03/10/23 10:49 FOLLOW-UP Family History Mother Heart disease Father Heart disease Surgical History H/O shoulder surgery History of cardioversion (02/02/21) History of cataract extraction with lens replacement (~11/22/22) History of hip surgery Liver transplant recipient S/P PTCA (percutaneous transluminal coronary angioplasty) Status post liver transplant (07/2017) Social History household members: spouse Smoking Status: Never smoker alcohol intake: former substance use type: does not use caffeine: No ROS Constitutional Constitutional: Reports weakness; Denies anorexia, change in weight, chills, fatigue, fever(s), malaise, night sweats or other Eyes Eyes: Denies blurry vision, change in eye color, change in vision, discharge from eye(s), double vision, erythema, eye pain, loss of vision or other ENT HEENT: Denies abnormal hearing, dysphagia, ear pain, epistaxis, headache(s), hearing loss, nasal congestion, nasal discharge, post nasal drip, sinus pressure, sore throat or other Cardiovascular Cardiovascular: Denies chest pain, claudication, dyspnea on exertion, edema, lightheadedness, orthopnea, palpitations, paroxysmal nocturnal dyspnea, rapid heart rate, syncope or other Respiratory/Chest Respiratory/Chest: Denies cough, dyspnea, excessive phlegm production, hemoptysis, productive cough, shortness of breath at rest, shortness of breath with exertion, wheezing or other Gastrointestinal Gastrointestinal: Denies abdominal pain, coffee ground emesis, constipation, diarrhea, dyspepsia, hematemesis, hematochezia, loose stools, melena, nausea, vomiting or other Genitourinary Genitourinary: Denies burning urination, difficulty urinating, dysuria, hematuria, nocturia, urinary frequency, urinary hesitancy, urinary incontinence, urinary urgency or other Musculoskeletal Musculoskeletal: Reports back pain, joint pain and neck pain Neurologic Neurologic: Reports abnormal gait; Denies abnormal speech, confusion, disequilibrium, dizziness, focal weakness, headache(s), numbness, paresthesias, seizure-like activity, seizures, syncope, tingling, tremor(s) or other Psychiatric Psychiatric: Denies anxiety, depression, homicidal ideation, suicidal ideation or other Endocrine Endocrinology: Denies change in body appearance, cold intolerance, excessive sweating, heat intolerance, polydipsia, polyuria or other Hematologic/Lymphatic Hematologic/Lymphatic: Denies anemia, easy bleeding, easy bruising, lymphadenopathy or other Allergic/Immunologic Allergic/Immunologic: Denies rhinitis, hives, eczemia, asthma or other Vital Signs Vital Signs Vital Signs: 03/10/23 10:46 03/10/23 11:56 03/10/23 13:22 Temperature 98.2 F 97.9 F Temperature Source Oral Temporal Pulse Rate 56 L 57 L 62 Respiratory Rate 18 18 Blood Pressure 110/58 L 104/52 L 110/68 Blood Pressure Mean 75 69 82 Pulse Ox 97 99 Oxygen Delivery Method Room Air Room Air Weight Weight: 162.8 kg Body Mass Index (BMI) 51.5 Physical Exam Const alert, oriented x3, no apparent distress and well nourished Constitutional Narrative: Upper middle-aged, morbidly obese, white male, lying in bed, at bedside, appears chronically ill but comfortable currently and nontoxic General Appearance: cooperative HEENT normocephalic, head/scalp atraumatic and hearing grossly normal bilaterally Resp normal respiratory effort, no retractions, no use of accessory muscles and clear to auscultation bilaterally Resp Narrative: Distant but clear Auscultation: Negative for rales, rhonchi or wheezes Cardio regular rate, regular rhythm, S1 normal heart sound, S2 normal heart sound, no murmurs, no rub, no gallops and no clicks GI normal to inspection, nondistended, normoactive bowel sounds, soft to palpation and non-tender Extremity no clubbing, cyanosis or edema Extremity Narrative: L arm in splint Neuro oriented x3 and CN's II-XII intact bilaterally Neuro Narrative: unable to move L UE Sensorium / Orientation: awake, alert, oriented to person, oriented to place and oriented to time Speech: speech normal Psych affect normal Psych Narrative: very pleasant Results Lab / Micro Data Attestation: I reviewed the patient's lab results. 03/10/23 11:20 03/10/23 11:20 Labs: Laboratory Results - last 24 hr 03/10/23 11:20: WBC 6.3, RBC 3.06 L, Hgb 9.7 L, Hct 29.5 L, MCV 96.4 H, MCH 31.7, MCHC 32.9, RDW Std Deviation 52.0 H, RDW Coeff of Maciel 15.1 H, Plt Count 251, MPV 10.0, Immature Gran % (Auto) 0.500, Neut % (Auto) 64.1, Lymph % (Auto) 22.2, Pine % (Auto) 8.8, Eos % (Auto) 3.8, Baso % (Auto) 0.6, Absolute Neuts (auto) 4.0, Absolute Lymphs (auto) 1.39, Nucleated RBC % 0, PT 19.8 H, INR 1.7, APTT 38.9 H, Sodium 143, Potassium 3.4 L, Chloride 116 H, Carbon Dioxide 23.0, Anion Gap 4 L, BUN 17, Creatinine 1.60 H, Estim Creat Clear Calc 49.08, Est GFR (MDRD) Af Amer 57 L, Est GFR (MDRD) Non-Af 47 L, BUN/Creatinine Ratio 10.6, Glucose 98, Calcium 7.4 L Radiology Impression Humerus X-Ray 03/10/23 11:40 IMPRESSION: Proximal humerus fracture. Electronically Signed: Guido Agarwal MD at 12:33 EDT , Assessment & Plan Assessment/Plan (1) Periprosthetic fracture around internal prosthetic joint: (2) Closed left humeral fracture: (3) Fall: (4) Unable to ambulate: PLAN: Plan Left periprosthetic humeral fracture -Per discussion with ER Dr. Varela was notified and current plans are for nonoperative management -Consult orthopedic surgery -Continue home pain medication -Urine Dilaudid for now for breakthrough -We will avoid scheduled Tylenol with history of liver disease and transplant -Nonweightbearing left upper extremity -Placement/sling per orthopedic surgery Inability ambulate -Patient uses a walker at baseline and now is unable to use a walker due to left shoulder fracture -PT/OT consulted -Social work consulted as patient will need placement Hypokalemia -P.o. potassium ordered -Check a.m. potassium level and magnesium level PAF -Continue metoprolol 50 mg p.o. twice daily -Continue amiodarone 200 mg daily -Continue home Eliquis Chronic anemia due to renal disease/chronic disease -Stable Hypertension -Continue amlodipine 5 mill grams daily and 1-continue Lasix 80 mg daily -Continue metoprolol 50 mg twice daily CKD stage IIIb -Stable -Serum creatinine is at baseline 1.6-1.9 -Repeat BMP in a.m. -Avoid nephrotoxins -Follows with Dr. Verenice Monae as outpatient FELIPE/alpha-1 antitrypsin deficiency status post liver transplant -Liver transplant 2017 -Follows at [facility] -Continue tacrolimus -Continue ursodiol -Continue home Bactrim History of gout -Continue home allopurinol Chronic pain due to osteoarthritis/rheumatoid arthritis -Continue home oxycodone -Continue home Flexeril -Patient follows as an outpatient with pain management -Patient is not on any chronic rheumatoid medications HFpEF -Continue Lasix 80 mg daily -Had recent echo December 2020 in our system with an EF of 50 to 65% and otherwise unremarkable DVT prophylaxis -Continue Eliquis CODE STATUS -Full code Charges/Coding Visit Charges Inpatient E&M: 69919 Init Hosp L2
[2023-03-10] MEDS: oxyCODONE 5 MG Tablet 10 MG PO ×2 (13:43→22:33)
--- NOTE | 2023-03-10 14:49 | NURSING ---
went home to get d/c instructions for accurate med list
[2023-03-10] MEDS: Potassium Chloride Oral Tablet 20 MEQ 40 MEQ PO (15:30)
[2023-03-10] MEDS: 0.9% Saline Lock 10 ML Syringe IV (20:18)
[2023-03-10] MEDS: HYDROmorphone 0.5 MG/0.5 ML SYRINGE IV (20:18)
[2023-03-10] MEDS: Tacrolimus 0.5 MG Capsule PO (21:08)
[2023-03-10] MEDS: Ursodiol 250 MG Tablet PO (21:10)
[2023-03-10] MEDS: APIXABAN 5 MG TABLET PO (21:10)
[2023-03-10] MEDS: Famotidine 20 MG Tablet PO (21:10)
[2023-03-10] MEDS: Metoprolol Tartrate 50 MG Tablet PO (22:32)
[2023-03-10] MEDS: cycloBENZAPRine HCl 10 MG Tablet PO (22:35)
[2023-03-11] VITALS (9 sets, daily range): BP systolic 101–111; BP diastolic 45–76; PULSE 54–67; RESP 14–18; TEMP 36.5–36.9; O2SAT 94–100
[2023-03-11] MEDS: HYDROmorphone 0.5 MG/0.5 ML SYRINGE IV (01:52)
[2023-03-11] MEDS: 0.9% Saline Lock 10 ML Syringe IV ×2 (01:53→18:47)
[2023-03-11 05:01] LABS: Absolute Lymphocyte Count 1.95 X10^3/uL (0.83-4.51); Absolute Neutrophil Count 3.6 X10^3/uL (2.0-7.7); Basophil# 0.06 X10^3/uL; Basophil% 0.9 % (0-1); Eosinophil# 0.24 X10^3/uL; Eosinophils% 3.6 % (0-5); Hematocrit 29.7 % (40-54); Hemoglobin 9.3 g/dL (13.0-16.5); Lymphocyte # 1.95 X10^3/ul (0.83-4.51); Lymphocyte % 29.1 % (19-41); Mean Corp Hgb Conc 31.3 g/dL (32-36); Mean Corpuscular Hgb 30.9 pg (27.0-32.0); Mean Corpuscular Volume 98.7 fL (80-94); Monocyte# 0.78 X10^3/uL; Monocyte% 11.7 % (0-10); NRBC Flagged by Analyzer 0 % (0-5); Neutrophil # 3.64 X10^3/uL (2.7-7.7); Neutrophil % 54.4 % (47-70); Platelet Count 251 K/mm3 (150-450); RBC Distribution Width CV 14.9 % (11.6-14.6); RBC Distribution Width SD 54.4 fl (35.1-43.9); Red Blood Count 3.01 M/mm3 (4.6-6.2); White Blood Count 6.7 K/mm3 (4.4-11.0)
[2023-03-11 05:29] LABS: Anion Gap 4 (5-15); BUN 19 mg/dL (7-18); BUN/Creat Ratio 10.2 RATIO (10-20); Calcium,Total 8.3 mg/dL (8.5-10.1); Chloride 109 mmol/L (98-107); Creatinine, Serum 1.86 mg/dL (0.70-1.30); EST Glomerular Filtration Rate 39 mL/min (>60); Est Glom Filt Rate - Afr Amer 48 mL/min (>60); Estimated Creatinine Clearance 42.52 ml/min; Glucose 127 mg/dL (74-106); Magnesium 1.6 mg/dL (1.6-2.6); Potassium 4.4 mmol/L (3.5-5.1); Sodium Level 139 mmol/L (136-145)
[2023-03-11] MEDS: oxyCODONE 5 MG Tablet 10 MG PO ×3 (06:08→18:16)
[2023-03-11] MEDS: Levothyroxine 25 MCG TABLET PO (06:08)
--- NOTE | 2023-03-11 07:51 | PCM.PN.HOSP ---
Reason for Visit Reason for Visit: Diagnoses Periprosthetic fracture around unspecified internal prosthetic joint, initial encounter (03/10/23) Difficulty in walking, not elsewhere classified (03/10/23) Unspecified fracture of shaft of humerus, left arm, initial encounter for closed fracture (03/10/23) Unspecified fall, initial encounter (03/10/23) Subjective Subjective No new issues. Still with pain in LUE. Objective Data Objective Data Vital Signs: Vital Signs Temp Pulse Resp BP Pulse Ox O2 Del Method 36.8 C 60 14 106/60 97 Room Air 03/11/23 06:12 03/11/23 06:12 03/11/23 06:12 03/11/23 06:12 03/11/23 06:12 03/11/23 06:12 Oxygen Delivery Method Room Air Weight: 159.6 kg Body Mass Index (BMI) 50.5 Intake & Output: Intake and Output for Last 24 Hours 03/09/23 03/10/23 03/11/23 23:59 23:59 23:59 Intake Total 500 / 800 500 / 500 Output Total 800 / 1050 400 / 400 Balance -300 / -250 100 / 100 Lab / Micro Data 03/11/23 04:25 03/11/23 04:25 Labs: Laboratory Results - last 24 hr 03/10/23 11:20: WBC 6.3, RBC 3.06 L, Hgb 9.7 L, Hct 29.5 L, MCV 96.4 H, MCH 31.7, MCHC 32.9, RDW Std Deviation 52.0 H, RDW Coeff of Maciel 15.1 H, Plt Count 251, MPV 10.0, Immature Gran % (Auto) 0.500, Neut % (Auto) 64.1, Lymph % (Auto) 22.2, Marion % (Auto) 8.8, Eos % (Auto) 3.8, Baso % (Auto) 0.6, Absolute Neuts (auto) 4.0, Absolute Lymphs (auto) 1.39, Nucleated RBC % 0, PT 19.8 H, INR 1.7, APTT 38.9 H, Sodium 143, Potassium 3.4 L, Chloride 116 H, Carbon Dioxide 23.0, Anion Gap 4 L, BUN 17, Creatinine 1.60 H, Estim Creat Clear Calc 49.08, Est GFR (MDRD) Af Amer 57 L, Est GFR (MDRD) Non-Af 47 L, BUN/Creatinine Ratio 10.6, Glucose 98, Calcium 7.4 L 03/11/23 04:25: WBC 6.7, RBC 3.01 L, Hgb 9.3 L, Hct 29.7 L, MCV 98.7 H, MCH 30.9, MCHC 31.3 L, RDW Std Deviation 54.4 H, RDW Coeff of Maciel 14.9 H, Plt Count 251, MPV 10.0, Immature Gran % (Auto) 0.300, Neut % (Auto) 54.4, Lymph % (Auto) 29.1, Marion % (Auto) 11.7 H, Eos % (Auto) 3.6, Baso % (Auto) 0.9, Absolute Neuts (auto) 3.6, Absolute Lymphs (auto) 1.95, Nucleated RBC % 0, Sodium 139, Potassium 4.4, Chloride 109 H, Carbon Dioxide 26.0, Anion Gap 4 L, BUN 19 H, Creatinine 1.86 H, Estim Creat Clear Calc 42.52, Est GFR (MDRD) Af Amer 48 L, Est GFR (MDRD) Non-Af 39 L, BUN/Creatinine Ratio 10.2, Glucose 127 H, Calcium 8.3 L, Magnesium 1.6 Radiography Diagnostic Testing: Radiology Impression Humerus X-Ray 03/10/23 11:40 IMPRESSION: Proximal humerus fracture. Electronically Signed: Guido Agarwal MD at 12:33 EDT Reading Location ID and State: [facility] / [place] , Service support , Physical Exam Const alert and no apparent distress HEENT head/scalp atraumatic and moist oral mucous membranes Resp normal respiratory effort, no retractions, no use of accessory muscles and clear to auscultation bilaterally Cardio regular rate, regular rhythm, S1 normal heart sound and S2 normal heart sound GI normal to inspection, nondistended, normoactive bowel sounds, soft to palpation, non-tender and non-distended Extremity normal to inspection Assessment & Plan Assessment/Plan (1) Periprosthetic fracture around internal prosthetic joint: PLAN: Left periprosthetic humeral fracture Per discussion with ER Dr. Varela was notified and current plans are for nonoperative management Reviewed OARRS, no recent narcotic Rx. DC note from 02/27: no narcotics. PRN oxycodone check 25 oh-d NWB on LUE. Seen by Dr. Varela or orthopaedics: I recommended initial management with coaptation splint with plan to transition to Marrero brace in approximately 1 week once swelling improves. Patient will be mobilized with therapy today. Okay for simple sling when out of bed. Maintain splint until follow-up. He will be nonweightbearing on his left upper extremity. Given his need for rollator and/or walker, we will attempt to mobilize with a one-sided walker, however he may need residential placement. Plan follow-up in 1 week with x-rays. (2) Unable to ambulate: PLAN: PT OT SNF (3) Hypokalemia: PLAN: Resolved w p.o. potassium ordered Check a.m. potassium level and magnesium level PLAN: Plan Chronic conditions: PAF-Continue metoprolol 50 mg p.o. twice daily-Continue amiodarone 200 mg daily-Continue home Eliquis Chronic anemia due to renal disease/chronic disease-Stable Hypertension-Continue amlodipine 5 mill grams daily and 1-continue Lasix 80 mg daily-Continue metoprolol 50 mg twice daily CKD stage WLEg-Yrmcjq-Zzaki creatinine is at baseline 1.6-1.9-Repeat BMP in a.m.-Avoid nephrotoxins-Follows with Dr. Verenice Monae as outpatient FELIPE/alpha-1 antitrypsin deficiency status post liver transplant-Liver transplant 2016-Follows at [facility]-Continue tacrolimus-Continue ursodiol-Continue home Bactrim History of gout-Continue home allopurinol Chronic pain due to osteoarthritis/rheumatoid arthritis HFpEF-Continue Lasix 80 mg daily-Had recent echo December 2020 in our system with an EF of 50 to 65% and otherwise unremarkable DVT prophylaxis -Continue Eliquis CODE STATUS -Full code Charges/Coding Visit Charges Inpatient E&M: 07300 Subs Hosp L2
--- NOTE | 2023-03-11 08:03 | CON.PCM.OR_ITS ---
HPI Consult Data Date of Consult: 03/11/23 HPI Narrative Reason for Consultation: Left periprosthetic humerus fracture HPI Narrative: ESTEFANIA MILLER, is a 62 M who presents to [facility] after a mechanical fall onto his left arm. He was attempting to get out of bed. He states his balance has been bad recently requiring use of a rollator and walker. Patient has had multiple surgeries on his left shoulder. He states the index procedure on the left shoulder was for a proximal humerus fracture. He states he has had 4 surgeries on his shoulder by surgeon at the [facility]. He states he was doing okay with his left shoulder prior to this injury. He denies any numbness or tingling. Denies fevers, chills, nausea vomiting, chest pain or shortness of breath. Denies any other associated injuries. Denies history of infection in the left shoulder. Patient is status post liver transplant [facility] Medical History (HFpEF) heart failure with preserved ejection fraction Acidosis, lactic Acute hypotension Adult failure to thrive Anemia of chronic disease Ascites Atherosclerotic heart disease of pala coronary artery without angina pectoris Atrial fibrillation Atrial flutter with rapid ventricular response (02/02/21) CAD (coronary artery disease) Cellulitis Chronic kidney disease, stage 3b Chronic renal failure, stage 3 (moderate) Cirrhosis Coronary artery disease Gout History of non-ST elevation myocardial infarction (NSTEMI) (12/29/20) Hypertension Kidney disease Morbid obesity Morbid obesity Multiple falls FELIPE (nonalcoholic steatohepatitis) Nonsustained paroxysmal ventricular tachycardia (12/2020) Paroxysmal atrial fibrillation Right hip pain Venous insufficiency Vertigo, central Weakness Home Medications cyclobenzaprine 10 mg tablet 10 mg PO TID PRN MUSCLE SPASMS 06/19/22 [History Last Taken 03/09/23] apixaban 5 mg tablet (Eliquis) 5 mg PO BID BLOOD THINNER 07/20/22 [History Last Taken 03/10/23] allopurinol 300 mg tablet 300 mg PO DAILY GOUT 11/04/22 [History Last Taken 03/10/23] tacrolimus 0.5 mg capsule, immediate-release 0.5 mg PO 0900,2100 LIVER TRANSPLANT 11/06/22 [History Last Taken 03/10/23] sulfamethoxazole 400 mg-trimethoprim 80 mg tablet 1 tab PO DAILY LIVER TRANSPLANT #90 tabs 11/20/22 [Rx Last Taken 03/09/23] metoprolol tartrate 50 mg tablet 50 mg PO BID BLOOD PRESSURE #180 tabs 11/27/22 [Rx Last Taken 03/10/23] nitroglycerin 0.4 mg sublingual tablet 0.4 mg sublingual Q5M PRN chest pain #25 tabs 11/27/22 [Rx Last Taken Unknown] citalopram 10 mg tablet 10 mg PO DAILY MOOD 02/08/23 [History Last Taken Unknown] amiodarone 200 mg tablet 200 mg PO DAILY BP 02/14/23 [History Last Taken 03/09/23] furosemide 40 mg tablet 80 mg PO DAILY Fluid retention 02/14/23 [History Last Taken Unknown] ursodiol 300 mg capsule 300 mg PO BID Gallstones 02/14/23 [History Last Taken 03/10/23] famotidine 20 mg tablet 20 mg PO BID 30 days #60 tabs 02/27/23 [Rx Last Taken 03/10/23] levothyroxine 25 mcg tablet 25 mcg PO DAILY@0600 30 days #30 tabs 02/27/23 [Rx Last Taken Unknown] amlodipine 5 mg tablet 5 mg PO DAILY HTN 03/10/23 [History Last Taken Unknown] oxycodone 10 mg tablet 10 mg PO Q8H BTP 03/10/23 [History Last Taken 03/09/23] prochlorperazine maleate 5 mg tablet 10 mg PO Q6H PRN PRN NAUSEA/VOMITING 03/10/23 [History Last Taken 03/09/23] Allergy/AdvReac Type Severity Reaction Status Date / Time morphine Allergy Hives Verified 03/10/23 10:49 pravastatin [From Pravachol] Allergy Hives Verified 03/10/23 10:49 Kniuwst-LMJ-BqE Reductase Allergy Hives Verified 03/10/23 10:49 Inhibitor [Oosxopg-Hqo-Fut Reductase Inhibitor] vancomycin Allergy NEEDS Verified 03/10/23 10:49 FOLLOW-UP zolpidem tartrate Allergy Hives Verified 03/10/23 10:49 [From Ambien] everolimus AdvReac Swelling Verified 03/10/23 10:49 gabapentin AdvReac NEEDS Verified 03/10/23 10:49 FOLLOW-UP Family History Mother Heart disease Father Heart disease Surgical History H/O shoulder surgery History of cardioversion (02/02/21) History of cataract extraction with lens replacement (~11/22/22) History of hip surgery Liver transplant recipient S/P PTCA (percutaneous transluminal coronary angioplasty) Status post liver transplant (07/2017) Social History household members: spouse Smoking Status: Never smoker alcohol intake: former substance use type: does not use caffeine: No ROS ROS Narrative 12 point review systems obtained, negative as otherwise noted HPI. Vital Signs Vital Signs Vital Signs: 03/10/23 10:46 03/10/23 11:56 03/10/23 13:22 Temperature 98.2 F 97.9 F Temperature Source Oral Temporal Pulse Rate 56 L 57 L 62 Respiratory Rate 18 18 Respiratory Effort Respiratory Depth Respiratory Pattern Blood Pressure 110/58 L 104/52 L 110/68 Blood Pressure Mean 75 69 82 Blood Pressure Source Blood Pressure Position Blood Pressure Location Pulse Ox 97 99 Oxygen Delivery Method Room Air Room Air 03/10/23 14:32 03/10/23 14:10 03/10/23 14:45 Temperature 98.0 F Temperature Source Temporal Pulse Rate 90 90 Respiratory Rate 20 H 20 H Respiratory Effort Respiratory Depth Respiratory Pattern Blood Pressure 98/60 Blood Pressure Mean 72 Blood Pressure Source Monitor Blood Pressure Position Semi-Fowlers Blood Pressure Location Right Arm Pulse Ox 95 95 92 Oxygen Delivery Method Room Air Room Air Room Air 03/10/23 20:10 03/10/23 20:10 03/10/23 22:32 Temperature 98.0 F Temperature Source Oral Pulse Rate 57 L 61 Respiratory Rate 16 Respiratory Effort Normal Non-Labored Respiratory Depth Normal Respiratory Pattern Normal Blood Pressure 103/57 L 101/54 L Blood Pressure Mean 72 Blood Pressure Source Monitor Blood Pressure Position Semi-Fowlers Blood Pressure Location Right Forearm Pulse Ox 100 Oxygen Delivery Method Room Air 03/11/23 01:50 03/11/23 01:50 03/11/23 06:12 Temperature 97.7 F L 98.3 F Temperature Source Oral Oral Pulse Rate 56 L 60 Respiratory Rate 16 14 Respiratory Effort Normal Non-Labored Respiratory Depth Respiratory Pattern Blood Pressure 101/53 L 106/60 Blood Pressure Mean 69 75 Blood Pressure Source Monitor Monitor Blood Pressure Position Semi-Fowlers Semi-Fowlers Blood Pressure Location Left Forearm Left Forearm Pulse Ox 97 97 Oxygen Delivery Method Room Air Room Air Weight Weight: 351 lb 13.724 oz Body Mass Index (BMI) 50.5 Physical Exam Narrative General -A&Ox3, NAD, appears stated age. Vital signs stable, afebrile. Respiratory -normal work of breathing, no intercostal retractions. CV -pulses regular, brisk capillary refill ?4 limbs. Abdomen-soft, nontender, nondistended. No guarding, rigidity, rebound tenderness. Musculoskeletal/neurologic -full range of motion nontender throughout bilateral lower extremities, right upper extremity with full sensation and strength in all dermatomes and myotomes. No midline cervical tenderness. Left upper extremity -coaptation splint in place, clean dry and intact. Cardinal motions left hand are intact. Sensation intact light touch median/ulnar/radial nerve distributions of the left hand. Strength 5/5 with Jacob motions of the left hand. Radial pulse 2+ brisk capillary refill in the fingertips. Tenderness to palpation along the proximal humerus. Well-healed deltopectoral incision without erythema or drainage. Range of motion testing deferred. Lab / Micro Data 03/11/23 04:25 03/11/23 04:25 Labs: Laboratory Results - last 24 hr 03/10/23 11:20: WBC 6.3, RBC 3.06 L, Hgb 9.7 L, Hct 29.5 L, MCV 96.4 H, MCH 31.7, MCHC 32.9, RDW Std Deviation 52.0 H, RDW Coeff of Maciel 15.1 H, Plt Count 251, MPV 10.0, Immature Gran % (Auto) 0.500, Neut % (Auto) 64.1, Lymph % (Auto) 22.2, [place] % (Auto) 8.8, Eos % (Auto) 3.8, Baso % (Auto) 0.6, Absolute Neuts (auto) 4.0, Absolute Lymphs (auto) 1.39, Nucleated RBC % 0, PT 19.8 H, INR 1.7, APTT 38.9 H, Sodium 143, Potassium 3.4 L, Chloride 116 H, Carbon Dioxide 23.0, Anion Gap 4 L, BUN 17, Creatinine 1.60 H, Estim Creat Clear Calc 49.08, Est GFR (MDRD) Af Amer 57 L, Est GFR (MDRD) Non-Af 47 L, BUN/Creatinine Ratio 10.6, Glucose 98, Calcium 7.4 L 03/11/23 04:25: WBC 6.7, RBC 3.01 L, Hgb 9.3 L, Hct 29.7 L, MCV 98.7 H, MCH 30.9, MCHC 31.3 L, RDW Std Deviation 54.4 H, RDW Coeff of Maciel 14.9 H, Plt Count 251, MPV 10.0, Immature Gran % (Auto) 0.300, Neut % (Auto) 54.4, Lymph % (Auto) 29.1, [place] % (Auto) 11.7 H, Eos % (Auto) 3.6, Baso % (Auto) 0.9, Absolute Neuts (auto) 3.6, Absolute Lymphs (auto) 1.95, Nucleated RBC % 0, Sodium 139, Potassium 4.4, Chloride 109 H, Carbon Dioxide 26.0, Anion Gap 4 L, BUN 19 H, Creatinine 1.86 H, Estim Creat Clear Calc 42.52, Est GFR (MDRD) Af Amer 48 L, Est GFR (MDRD) Non-Af 39 L, BUN/Creatinine Ratio 10.2, Glucose 127 H, Calcium 8.3 L, Magnesium 1.6 Radiology Impression Humerus X-Ray 03/10/23 11:40 IMPRESSION: Proximal humerus fracture. Electronically Signed: Guido Agarwal MD at 12:33 EDT , Assessment & Plan Assessment/Plan (1) Periprosthetic fracture around internal prosthetic joint: QUALIFIERS: Internal joint prosthesis site: shoulder Encounter type: initial encounter Laterality: left Qualified Code(s): M97.32XA - Periprosthetic fracture around internal prosthetic left shoulder joint, initial encounter PLAN: Patient sustained a transverse fracture about the tip of a reverse shoulder arthroplasty and supplemental Proximal humeral locking plate. Stem is cemented in place. Cement mantle appears to be intact however this is difficult to discern on plain films. Fracture is nondisplaced. I recommended initial management with coaptation splint with plan to transition to Marrero brace in approximately 1 week once swelling improves. Patient will be mobilized with therapy today. Okay for simple sling when out of bed. Maintain splint until follow-up. He will be nonweightbearing on his left upper extremity. Given his need for rollator and/or walker, we will attempt to mobilize with a one-sided walker, however he may need alf placement. Plan follow-up in 1 week with x-rays. I will sign off at this time. Please not hesitate to call if any questions or concerns arise. Thank you for this consultation.
[2023-03-11] MEDS: Smz/Tmp Ds Tablet 0.5 TABLET PO (08:38)
[2023-03-11] MEDS: Citalopram 10 MG Tablet PO (08:38)
[2023-03-11] MEDS: Tacrolimus 0.5 MG Capsule PO ×2 (08:38→21:12)
[2023-03-11] MEDS: Amiodarone 200 MG Tablet PO (08:39)
[2023-03-11] MEDS: APIXABAN 5 MG TABLET PO ×2 (08:39→21:12)
[2023-03-11] MEDS: Famotidine 20 MG Tablet PO ×2 (08:40→21:12)
[2023-03-11] MEDS: Furosemide 40 MG Tablet PO (08:40)
[2023-03-11] MEDS: Ursodiol 250 MG Tablet PO ×2 (08:41→21:12)
[2023-03-11] MEDS: Allopurinol 300 MG Tablet PO (08:41)
--- NOTE | 2023-03-11 09:30 | CASEMGMT ---
Discharge Planning SNF list created and given to SW. Vania Hill, Discharge Planning Asst.
--- NOTE | 2023-03-11 11:25 | CASEMGMT ---
ASHANTI BROOKE in to complete MOCK form at this time. Pt resting quietly with eyes closed. Pt's at bedside. ASHANTI BROOKE explained MOCK form to patient's who voiced understanding and signed form.? MOCK form filed in chart and patient provided with copy. Patient's denied any further questions or concerns.??Maira Gilmore RN CM
--- NOTE | 2023-03-11 12:49 | CASEMGMT ---
Addendum entered by Nicole Zaragoza 03/11/23 13:03: Social Work Pt's daughter Frida called back with three choices, [facility]. [facility]. [facility] 3. [facility]. Referrals will be made today. ESTER Costello Original Note: Social Work SW met w/pt and in room in regard to discharge plan. Pt just left TCU on 03/01/23, as per pt was still not walking that well. Pt fell at home and broke his arm. Pt and in agreement pt needs to go somewhere again for rehab. Pt was getting around with a rollator, lives home w/ in a one story home. Dr. Bose is pt's PCP. SW provided to pt and a list of correction facilities via [employer] in network w/pt's insurance, in preferred geographic area, complete with quality and resource use data. They would really like [facility], SW explaind TCU will likely not have a bed, and asked to choose additional options. states will call family and let SW know. SW did reach out to TCU, they have no beds. Pt's daughter Frida then called, SW explained that TCU has no beds and won't until the . Daughter asked about pt staying until then, SW explained we can't keep the pt four extra days, and that pt is actually medically ready today. SW explained we need to make a referral and start the precert process. She states will call SW back and let SW know options. SW will continue to follow. ESTER Costello
--- NOTE | 2023-03-11 14:20 | CASEMGMT ---
Discharge Planning Referral sent to [facility] via [facility]. Vania Hill, Discharge Planning Asst.
[2023-03-11 15:19] LABS: Vitamin D,25 Hydroxy 102.5 ng/mL
--- NOTE | 2023-03-11 16:19 | CHAPLAIN ---
Type of Pastoral Visit _x__ Initial Visit ___ Follow-up Visit ___ On-call Visit ___ General Patient Visit ___ Spiritual Assessment ___ Family Conference ___ Bereavement ___ Rapid Response ___ Code Blue ___ Other (describe below) Pastoral Care Referral From _x__ Patient ___ Family ___ Nurse ___ Physician ___ Pre Algebra Teacher ___ Wind Technician ___ Other (describe below) Sacrament/Intervention _x__ Active listening ___ Anointing ___ Cheondoism ___ Bereavement ___ Communion _x__ Ligia exploration ___ _x__ Life review _x__ Prayer ___ Reconciliation ___ Sacrament of Sick _x__ Supportive presence ___ Wedding ___ Other (describe below) Pastoral Comments patient and spouse are both very interactive and explain current health situation, past health needs and surgeries, and now waiting on decision for possible surgery on arm and rehab; lots of life review given; patient and spouse explain their ligia and practices of ligia; pt has not been able to attend a alevism due to poor health and they are feeling the need for fellowship and support; explored some of their needs in this way; prayer and presence were given
[2023-03-11] MEDS: cycloBENZAPRine HCl 10 MG Tablet PO (23:40)
[2023-03-12 03:25] VITALS: BP 109/55; PULSE 72; RESP 16; TEMP 36.8; O2SAT 98
[2023-03-12] MEDS: Levothyroxine 25 MCG TABLET PO (06:43)
--- NOTE | 2023-03-12 07:12 | PN.HOSP_ITS ---
Reason for Visit Reason for Visit: Diagnoses Hypokalemia (03/10/23) Periprosthetic fracture around internal prosthetic left shoulder joint, initial encounter (03/10/23) Periprosthetic fracture around unspecified internal prosthetic joint, initial encounter (03/10/23) Difficulty in walking, not elsewhere classified (03/10/23) Unspecified fracture of shaft of humerus, left arm, initial encounter for closed fracture (03/10/23) Unspecified fall, initial encounter (03/10/23) Subjective Subjective Pain in left arm worse when his arm gets moved. Objective Data Objective Data Vital Signs: Vital Signs Temp Pulse Resp BP Pulse Ox O2 Del Method 36.8 C 72 16 109/55 L 98 Room Air 03/12/23 03:25 03/12/23 03:25 03/12/23 03:25 03/12/23 03:25 03/12/23 03:25 03/12/23 03:25 Oxygen Delivery Method Room Air Weight: 159.6 kg Body Mass Index (BMI) 50.5 Intake & Output: Intake and Output for Last 24 Hours 03/10/23 03/11/23 03/12/23 23:59 23:59 23:59 Intake Total 500 / 800 500 / 900 400 / 400 Output Total 800 / 1050 700 / 900 200 / 200 Balance -300 / -250 -200 / 0 200 / 200 Lab / Micro Data 03/11/23 04:25 03/11/23 04:25 Labs: Laboratory Results - last 24 hr 03/11/23 04:25: Vitamin D 25-Hydroxy 102.5 Physical Exam Const alert and no apparent distress HEENT head/scalp atraumatic and moist oral mucous membranes GI normal to inspection, nondistended, normoactive bowel sounds, soft to palpation and non-tender Extremity Extremity Narrative: left arm wrapped--did not remove. Skin Skin Narrative: upper back without dermatitis. Neuro oriented x3 and CN's II-XII intact bilaterally Assessment & Plan Assessment/Plan (1) Periprosthetic fracture around internal prosthetic joint: QUALIFIERS: Encounter type: initial encounter Internal joint prosthesis site: shoulder Laterality: left Qualified Code(s): M97.32XA - Periprosthetic fracture around internal prosthetic left shoulder joint, initial encounter PLAN: Left periprosthetic humeral fracture Per discussion with ER Dr. Varela was notified and current plans are for nonoperative management Reviewed OARRS, no recent narcotic Rx. DC note from 02/27: no narcotics. PRN oxycodone 25 oh-d level 102.5, replacement not required. NWB on LUE. Seen by Dr. Varela or orthopaedics: * I recommended initial management with coaptation splint with plan to transition to Marrero brace in approximately 1 week once swelling improves. Patient will be mobilized with therapy today. Okay for simple sling when out of bed. Maintain splint until follow-up. He will be nonweightbearing on his left upper extremity. Given his need for rollator and/or walker, we will attempt to mobilize with a one-sided walker, however he may need [facility]. Plan follow-up in 1 week with x-rays. (2) Unable to ambulate: PLAN: PT OT SNF (3) Hypokalemia: PLAN: Resolved w p.o. potassium ordered (4) Itching: PLAN: Patient concerned that it is from fentanyl he received 2 days ago. Doubt drug reaction given that he received fentanyl 2 days ago and no generalized rash. I suspect that the itching on his low back is more contact dermatitis and encouraged him getting up as he is able to try to air it out. PLAN: Plan Chronic conditions: * PAF-Continue metoprolol 50 mg p.o. twice daily-Continue amiodarone 200 mg daily-Continue home Eliquis * Chronic anemia due to renal disease/chronic disease-Stable * Hypertension-Continue amlodipine 5 mill grams daily and 1-continue Lasix 80 mg daily-Continue metoprolol 50 mg twice daily * CKD stage QQWf-Cbblqs-Gcewf creatinine is at baseline 1.6-1.9-Repeat BMP in a.m.-Avoid nephrotoxins-Follows with Dr. Verenice Monae as outpatient * FELIPE/alpha-1 antitrypsin deficiency status post liver transplant-Liver transplant 2016-Follows at [facility]-Continue tacrolimus-Continue ursodiol-Continue home Bactrim * History of gout-Continue home allopurinol * Chronic pain due to osteoarthritis/rheumatoid arthritis * HFpEF-Continue Lasix 80 mg daily-Had recent echo December 2020 in our system with an EF of 50 to 65% and otherwise unremarkable DVT prophylaxis -Continue Eliquis CODE STATUS -Full code Disposition: to [facility] pending insurance approval. Pt said a bed may be available at TCU on 03/14. I told him I would have no medical justification to keep him until then, particularly if we get insurance authorization before then. Charges/Coding Visit Charges Inpatient E&M: 81610 Subs Hosp L2
--- NOTE | 2023-03-12 08:20 | CASEMGMT ---
Discharge Planning Therapy notes and updated med list sent to [facility] via [employer] to submit pre-cert. Vania Hill, Discharge Planning Asst.
[2023-03-12] MEDS: oxyCODONE 5 MG Tablet 10 MG PO ×2 (09:31→20:21)
[2023-03-12 09:32] VITALS: PULSE 73
[2023-03-12] MEDS: Metoprolol Tartrate 50 MG Tablet PO ×2 (09:32→20:26)
[2023-03-12] MEDS: Amiodarone 200 MG Tablet PO (09:32)
[2023-03-12] MEDS: Smz/Tmp Ds Tablet 0.5 TABLET PO (09:32)
[2023-03-12] MEDS: Furosemide 40 MG Tablet PO (09:32)
[2023-03-12] MEDS: APIXABAN 5 MG TABLET PO ×2 (09:32→20:22)
[2023-03-12] MEDS: Allopurinol 300 MG Tablet PO (09:32)
[2023-03-12] MEDS: Tacrolimus 0.5 MG Capsule PO ×2 (09:32→20:28)
[2023-03-12] MEDS: Citalopram 10 MG Tablet PO (09:32)
[2023-03-12] MEDS: Ursodiol 250 MG Tablet PO ×2 (09:33→20:27)
[2023-03-12] MEDS: Famotidine 20 MG Tablet PO ×2 (09:33→20:27)
[2023-03-12] MEDS: amLODIPine 5 MG Tablet PO (09:33)
[2023-03-12 09:45] VITALS: BP 111/66; PULSE 73; RESP 18; TEMP 36.6; O2SAT 97
[2023-03-12 10:24] VITALS: O2SAT 94
[2023-03-12] MEDS: cycloBENZAPRine HCl 10 MG Tablet PO (14:35)
--- NOTE | 2023-03-12 14:49 | CASEMGMT ---
Discharge Planning [facility] declined d/t weight. Referral sent to [facility] via [facility]. Vania Hill, Discharge Planning Asst.
[2023-03-12 15:00] VITALS: BP 101/49; PULSE 63; RESP 18; TEMP 36.5; O2SAT 99
--- NOTE | 2023-03-12 15:33 | CASEMGMT ---
Social Work TCU, [facility], [facility] and [facility] unable to accept pt. Phone call to pt Sheba and updated. Sheba stating these are the only SNF considerations for pt and if they cannot accept, pt will return home with . SW inquired about home health care and is agreeable. A list of home health providers including quality and resource use data and consistent with the patient?s preferred geographic region, medical needs, and insurance network were provided via the [employer] Guide Link. Sheba to make choices and notify SW of choice. rose SOTOMAYOR
[2023-03-12 20:26] VITALS: BP 104/58; PULSE 68; RESP 18; TEMP 36.8; O2SAT 100
[2023-03-13 05:00] VITALS: BP 102/49; PULSE 70; RESP 16; TEMP 36.8; O2SAT 95
[2023-03-13] MEDS: oxyCODONE 5 MG Tablet 10 MG PO ×2 (05:02→15:51)
[2023-03-13] MEDS: Levothyroxine 25 MCG TABLET PO (05:02)
--- NOTE | 2023-03-13 07:47 | PN.HOSP_ITS ---
Reason for Visit Reason for Visit: Diagnoses Hypokalemia (03/10/23) Pruritus, unspecified (03/10/23) Periprosthetic fracture around internal prosthetic left shoulder joint, initial encounter (03/10/23) Periprosthetic fracture around unspecified internal prosthetic joint, initial encounter (03/10/23) Difficulty in walking, not elsewhere classified (03/10/23) Unspecified fracture of shaft of humerus, left arm, initial encounter for closed fracture (03/10/23) Unspecified fall, initial encounter (03/10/23) Subjective Subjective Itching better. Seborrhea better. Objective Data Objective Data Vital Signs: Vital Signs Temp Pulse Resp BP Pulse Ox O2 Del Method 36.8 C 70 16 102/49 L 95 Room Air 03/13/23 05:00 03/13/23 05:00 03/13/23 05:00 03/13/23 05:00 03/13/23 05:00 03/13/23 05:00 Oxygen Delivery Method Room Air Weight: 159.6 kg Body Mass Index (BMI) 50.5 Intake & Output: Intake and Output for Last 24 Hours 03/11/23 03/12/23 03/13/23 23:59 23:59 23:59 Intake Total 500 / 900 1200 / 1200 400 / 400 Output Total 700 / 900 1100 / 1100 600 / 600 Balance -200 / 0 100 / 100 -200 / -200 Lab / Micro Data 03/11/23 04:25 03/11/23 04:25 Physical Exam Const alert and no apparent distress HEENT head/scalp atraumatic Psych affect normal Assessment & Plan Assessment/Plan (1) Periprosthetic fracture around internal prosthetic joint: QUALIFIERS: Encounter type: initial encounter Internal joint prosthesis site: shoulder Laterality: left Qualified Code(s): M97.32XA - Periprosthetic fracture around internal prosthetic left shoulder joint, initial encounter PLAN: Left periprosthetic humeral fracture Per discussion with ER Dr. Varela was notified and current plans are for nonoperative management Reviewed OARRS, no recent narcotic Rx. DC note from 02/27: no narcotics. PRN oxycodone 25 oh-d level 102.5, replacement not required. NWB on LUE. Seen by Dr. Varela or orthopaedics: * I recommended initial management with coaptation splint with plan to transition to Marrero brace in approximately 1 week once swelling improves. Patient will be mobilized with therapy today. Okay for simple sling when out of bed. Maintain splint until follow-up. He will be nonweightbearing on his left upper extremity. Given his need for rollator and/or walker, we will attempt to mobilize with a one-sided walker, however he may need senior care placement. Plan follow-up in 1 week with x-rays. (2) Unable to ambulate: PLAN: PT OT SNF (3) Hypokalemia: PLAN: Resolved w p.o. potassium ordered (4) Itching: PLAN: Patient concerned that it is from fentanyl he received 2 days ago. Doubt drug reaction given that he received fentanyl 2 days ago and no generalized rash. I suspect that the itching on his low back is more contact dermatitis and encour aged him getting up as he is able to try to air it out. PLAN: Plan Chronic conditions: * PAF-Continue metoprolol 50 mg p.o. twice daily-Continue amiodarone 200 mg daily-Continue home Eliquis * Chronic anemia due to renal disease/chronic disease-Stable * Hypertension-Continue amlodipine 5 mill grams daily and 1-continue Lasix 80 mg daily-Continue metoprolol 50 mg twice daily * CKD stage XIQd-Tzzkjf-Adknv creatinine is at baseline 1.6-1.9-Repeat BMP in a.m.-Avoid nephrotoxins-Follows with Dr. Verenice Monae as outpatient * FELIPE/alpha-1 antitrypsin deficiency status post liver transplant-Liver transplant 2016-Follows at [facility]-Continue tacrolimus-Continue ursodiol-Continue home Bactrim * History of gout-Continue home allopurinol * Chronic pain due to osteoarthritis/rheumatoid arthritis * HFpEF-Continue Lasix 80 mg daily-Had recent echo December 2020 in our system with an EF of 50 to 65% and otherwise unremarkable DVT prophylaxis -Continue Eliquis CODE STATUS -Full code Disposition: referral sent to the [facility]. Greater than 50 minutes of which greater than 50% of time was cussing with the patient and his family. They are concerned about the patient being confused. Patient states he does not feel confused and is able to tell me details about his care but also his prior evaluation for cognitive assessment and prior hospitalizations for other details. I told him that I will feel the patient is actually confused though his delivery, when he speaks, is slow and measured, family indicates that that is more of his normal. He also stated that they are confused concerned that he was confused when they came into the room and woke him up shortly after receiving 10 mg of oxycodone. Explained to them that probably why he was not his normal self and they woke him up this morning. I did tell him if he is having ongoing issues then we may cut his oxycodone from 10 to 5 mg. They are agreeable to that. They are also concerned about not have any testing has been couple days since he had testing. Patient had had issues with hepatic encephalopathy prior to his liver transplant but is no longer taking lactulose. Told would hold off on any lactulose at this point time and did not see any utility in regards to ordering additional test unless there is an acute change but from the concerns that they have it seems his confusion was more Propp related with medications but also being awoken from a deep sleep as patient appears to be appropriate at this time. Also discussing with them about placement. Patient had been declined by the other facilities. I did subsequently discuss with case management who is currently looking at the [facility]. Charges/Coding Visit Charges Inpatient E&M: 36823 Subs Hosp L3
[2023-03-13 09:35] VITALS: BP 97/40; PULSE 77; RESP 18; TEMP 36.6; O2SAT 95
[2023-03-13] MEDS: Famotidine 20 MG Tablet PO ×2 (09:39→21:10)
[2023-03-13] MEDS: amLODIPine 5 MG Tablet PO (09:39)
[2023-03-13] MEDS: Citalopram 10 MG Tablet PO (09:39)
[2023-03-13] MEDS: Smz/Tmp Ds Tablet 0.5 TABLET PO (09:39)
[2023-03-13] MEDS: Ursodiol 250 MG Tablet PO ×2 (09:39→21:09)
[2023-03-13] MEDS: Amiodarone 200 MG Tablet PO (09:39)
[2023-03-13] MEDS: Tacrolimus 0.5 MG Capsule PO ×2 (09:39→21:09)
[2023-03-13] MEDS: Furosemide 40 MG Tablet PO (09:39)
[2023-03-13] MEDS: Allopurinol 300 MG Tablet PO (09:39)
[2023-03-13] MEDS: APIXABAN 5 MG TABLET PO ×2 (09:39→21:09)
[2023-03-13 09:40] VITALS: BP 97/40
--- NOTE | 2023-03-13 10:21 | CASEMGMT ---
Social Work SW met with pt dgt Alda who is requesting referral be sent to the [facility]. TONY inquired if pt's was agreeable to this. Alda states pt is receiving care and is with him and they are agreeable to referral to the [facility] at this time. DC first assistant manager upated and referral to be sent. Plan: [facility], pending acceptance and precert BRAN Valenzuela
--- NOTE | 2023-03-13 10:22 | CASEMGMT ---
Discharge Planning Referral sent to [facility] via [facility]. Vania Hill, Discharge Planning Asst.
--- NOTE | 2023-03-13 14:15 | CASEMGMT ---
Social Work SW met with pt's and dgt Alda. SW updated that [facility] may be out of network and they are waiting for final financial decision by office. SW requested alternative options should [facility] not accept. Both and dgt confirm pt cannot return home. Next SNF preferences are [facility] and [facility]. DC employment legal assistant updated and to send referrals. Plan: SNF, pending acceptance and precert BRAN Valenzuela
--- NOTE | 2023-03-13 14:21 | CASEMGMT ---
Discharge Planning Referral sent to [facility] and [facility] via [facility]. Vania Hill, Discharge Planning Asst.
[2023-03-13 14:59] VITALS: BP 100/49; PULSE 64; RESP 18; TEMP 36.6; O2SAT 97
--- NOTE | 2023-03-13 15:53 | CASEMGMT ---
Social work SW received message from the [facility] and pt is in network and precert has been started. TONY met with dgt Alda and earnest. Alda agreeable to discharge to the [facility] once precert obtained. Plan: [facility], pending precert BRAN Valenzuela
--- NOTE | 2023-03-13 15:54 | CASEMGMT ---
Discharge Planning Patient has been accepted by [facility] and pre-cert has been submitted. Vania Hill, Discharge Planning Asst.
--- NOTE | 2023-03-13 19:00 | RAD_ITS ---
STUDY: X-RAY - ABDOMEN/PELVIS REASON FOR EXAM: Male, 62 years old. LLQ abdominal pain TECHNIQUE: Single AP view of the abdomen / pelvis. COMPARISON: None. FINDINGS: Normal visualized lung bases. Gas in multiple loops of small bowel in a nonspecific bowel gas pattern. The visualized liver, spleen and kidneys are grossly normal in size and morphology. Normal soft tissue structures. Normal visualized osseous structures. RAD/Abdomen Single View (Portable) IMPRESSION: Nonspecific bowel gas pattern. Electronically Signed: Solitario Brothers MD at 19:55 EDT ,
[2023-03-13 21:00] VITALS: BP 108/44; PULSE 65; RESP 18; TEMP 36.9; O2SAT 97
[2023-03-13 21:09] VITALS: BP 108/44; PULSE 66
[2023-03-13] MEDS: Metoprolol Tartrate 50 MG Tablet PO (21:09)
[2023-03-13] MEDS: proCHLORPERazine 5 MG Tablet 10 MG PO (21:12)
[2023-03-14] MEDS: 0.9% Saline Lock 10 ML Syringe IV (00:18)
[2023-03-14] MEDS: oxyCODONE 5 MG Tablet 10 MG PO ×2 (00:18→11:53)
[2023-03-14 05:00] VITALS: BP 95/50; PULSE 65; RESP 16; TEMP 36.9; O2SAT 99
[2023-03-14] MEDS: Levothyroxine 25 MCG TABLET PO (05:23)
--- NOTE | 2023-03-14 08:26 | PN.HOSP_ITS ---
Reason for Visit Reason for Visit: Diagnoses Hypokalemia (03/10/23) Pruritus, unspecified (03/10/23) Periprosthetic fracture around internal prosthetic left shoulder joint, initial encounter (03/10/23) Periprosthetic fracture around unspecified internal prosthetic joint, initial encounter (03/10/23) Difficulty in walking, not elsewhere classified (03/10/23) Unspecified fracture of shaft of humerus, left arm, initial encounter for closed fracture (03/10/23) Unspecified fall, initial encounter (03/10/23) Subjective Subjective Still with pain around wrist and upper arm around cast. Seborrhea improving, but has not received topical ketoconazole. Objective Data Objective Data Vital Signs: Vital Signs Temp Pulse Resp BP Pulse Ox O2 Del Method 36.9 C 65 16 95/50 L 99 Room Air 03/14/23 05:00 03/14/23 05:00 03/14/23 05:00 03/14/23 05:00 03/14/23 05:00 03/14/23 05:00 Oxygen Delivery Method Room Air Weight: 159.6 kg Body Mass Index (BMI) 50.5 Intake & Output: Intake and Output for Last 24 Hours 03/12/23 03/13/23 03/14/23 23:59 23:59 23:59 Intake Total 1200 / 1200 520 / 1020 500 / 500 Output Total 1100 / 1100 1200 / 1850 650 / 650 Balance 100 / 100 -680 / -830 -150 / -150 Lab / Micro Data 03/11/23 04:25 03/11/23 04:25 Radiography Diagnostic Testing: Radiology Impression KUB X-Ray 03/13/23 19:00 IMPRESSION: Nonspecific bowel gas pattern. Electronically Signed: Solitario Brothers MD at 19:55 EDT , Physical Exam Const alert and no apparent distress Extremity Extremity Narrative: no cellulitis or induration at hand and upper arm. rough edges at dorsal side of hand and upper cast. Assessment & Plan Assessment/Plan (1) Periprosthetic fracture around internal prosthetic joint: QUALIFIERS: Encounter type: initial encounter Internal joint prosthesis site: shoulder Laterality: left Qualified Code(s): M97.32XA - Periprosthetic fracture around internal prosthetic left shoulder joint, initial encounter PLAN: Left periprosthetic humeral fracture Reviewed OARRS, no recent narcotic Rx. DC note from 02/27: no narcotics. PRN oxycodone 25 oh-d level 102.5, replacement not required. NWB on LUE. Seen by Dr. Varela or orthopaedics: * I recommended initial management with coaptation splint with plan to transition to Marrero brace in approximately 1 week once swelling improves. Patient will be mobilized with therapy today. Okay for simple sling when out of bed. Maintain splint until follow-up. He will be nonweightbearing on his left upper extremity. Given his need for rollator and/or walker, we will attempt to mobilize with a one-sided walker, however he may need long-term placement. Plan follow-up in 1 week with x-rays. 03/13: had some pain on ulnar side of wrist. No evidence of cellulitis. It appeared that the hard part of cast was rubbing against his wrist. Advised nursing to add something to cushion his wrist in that area. 03/14: rough edges of cast around dorsal hand and upper arm. DW nursing about padding these areas. Patient also has a history of swelling since his multiple arm surgeries. I did discuss with him that he may have some subtle swelling that may not be visibly noticeable but being in the cast that may be affecting him. Patient may have some lymphatic impairment given his multiple upper extremity surgeries. He has not had any lymph node resections that he is aware of. (2) Unable to ambulate: PLAN: PT OT SNF Plan is to go to the [facility] for further rehab. states that he only has 5 days left. She was discussing about doing that her going home. I [facility] and then if he does indeed have 5 days left, then to have home care come out to the house. It would would help with the transition of getting him home if he were to leave to be at the [facility] for several days. Also advised that he have a hospital bed at home, he has a bed with a rail that is put under the mattress and box [place] that not firm in place. Then there is nothing to restrict her from moving or being pulled out. I told her that would be risky and perhaps a hospital bed would be more preferable at home. That can be facilitated by case management at the nursing facility. (3) Hypokalemia: PLAN: Resolved w p.o. potassium ordered (4) Itching: PLAN: Patient concerned that it is from fentanyl he received 2 days ago. Doubt drug reaction given that he received fentanyl 2 days ago and no generalized rash. I suspect that the itching on his low back is more contact dermatitis and encouraged him getting up as he is able to try to air it out. Improved on 03/13 (5) Seborrhea of face: PLAN: Improved with topical ketoconazole (6) Abdominal pain: QUALIFIERS: Abdominal location: left lower quadrant Qualified Code(s): R10.32 - Left lower quadrant pain PLAN: Unclear etiology Intermittent Abdominal xray negative. PLAN: Plan Chronic conditions: * PAF-Continue metoprolol 50 mg p.o. twice daily-Continue amiodarone 200 mg daily-Continue home Eliquis * Chronic anemia due to renal disease/chronic disease-Stable * Hypertension-Continue amlodipine 5 mill grams daily and 1-continue Lasix 80 mg daily-Continue metoprolol 50 mg twice daily * CKD stage TOIs-Wgquqc-Rgdai creatinine is at baseline 1.6-1.9-Repeat BMP in a.m.-Avoid nephrotoxins-Follows with Dr. Verenice Monae as outpatient * FELIPE/alpha-1 antitrypsin deficiency status post liver transplant-Liver transplant 2016-Follows at [facility]-Continue tacrolimus-Continue ursodiol-Continue home Bactrim * History of gout-Continue home allopurinol * Chronic pain due to osteoarthritis/rheumatoid arthritis * HFpEF-Continue Lasix 80 mg daily-Had recent echo December 2020 in our system with an EF of 50 to 65% and otherwise unremarkable DVT prophylaxis -Continue Eliquis CODE STATUS -Full code Disposition: Discharged to [facility]. 03/13: Family was concerned about the patient being confused. Patient states he does not feel confused and is able to tell me details about his care but also his prior evaluation for cognitive assessment and prior hospitalizations for other details. I told him that I will feel the patient is actually confused though his delivery, when he speaks, is slow and measured, family indicates that that is more of his normal. He also stated that they are confused concerned that he was confused when they came into the room and woke him up shortly after receiving 10 mg of oxycodone. Explained to them that probably why he was not his normal self and they woke him up this morning. I did tell him if he is having ongoing issues then we may cut his oxycodone from 10 to 5 mg. They are agreeable to that. They are also concerned about not have any testing has been couple days since he had testing. Patient had had issues with hepatic encepha lopathy prior to his liver transplant but is no longer taking lactulose. Told would hold off on any lactulose at this point time and did not see any utility in regards to ordering additional test unless there is an acute change but from the concerns that they have it seems his confusion was more Propp related with medications but also being awoken from a deep sleep as patient appears to be appropriate at this time. Also discussing with them about placement. Patient had been declined by the other facilities. I did subsequently discuss with case management who is currently looking at the [facility].
--- NOTE | 2023-03-14 08:52 | CASEMGMT ---
Discharge Planning Pre-cert has been received by [facility]. Patient updated. Vania Hill, Discharge Planning Asst.
[2023-03-14 09:26] VITALS: BP 104/46; PULSE 108; RESP 18; TEMP 36.3; O2SAT 98
[2023-03-14 09:31] VITALS: PULSE 108
[2023-03-14] MEDS: Citalopram 10 MG Tablet PO (09:31)
[2023-03-14] MEDS: Amiodarone 200 MG Tablet PO (09:31)
[2023-03-14] MEDS: APIXABAN 5 MG TABLET PO (09:31)
[2023-03-14] MEDS: Furosemide 40 MG Tablet PO (09:31)
[2023-03-14] MEDS: Smz/Tmp Ds Tablet 0.5 TABLET PO (09:31)
[2023-03-14] MEDS: Metoprolol Tartrate 50 MG Tablet PO (09:31)
[2023-03-14] MEDS: Tacrolimus 0.5 MG Capsule PO (09:31)
[2023-03-14] MEDS: amLODIPine 5 MG Tablet PO (09:32)
[2023-03-14] MEDS: Ursodiol 250 MG Tablet PO (09:32)
[2023-03-14] MEDS: Famotidine 20 MG Tablet PO (09:32)
[2023-03-14] MEDS: Allopurinol 300 MG Tablet PO (09:38)
[2023-03-14] MEDS: proCHLORPERazine 5 MG Tablet 10 MG PO (09:54)
--- NOTE | 2023-03-14 10:22 | TREXTCAR_ITS ---
Diet Diet Order/Speech Therapy: 03/10/23 14:13 Diet: Cardiac - Heart Healthy Food consistency:: Regular Liquid Consistency:: Regular/Thin Is pt able to select menu?: Yes Routine Orders/Code Status Code Status: Full Code Wound(s) right jackson: Wound Type: Abrasion Therapies Weight Bearing: Non weight bearing (elevate left arm while at rest. ) Extremity Affected:: Left Upper Physical Therapy: Eval and Treat Occupational Therapy: Eval and Treat Problem/Diagnosis (1) Periprosthetic fracture around internal prosthetic joint: Status: Acute Code(s): M97.9XXA - Periprosthetic fracture around unspecified internal prosthetic joint, initial encounter Plan: Left periprosthetic humeral fracture Reviewed OARRS, no recent narcotic Rx. DC note from 02/27: no narcotics. PRN oxycodone 25 oh-d level 102.5, replacement not required. NWB on LUE. Seen by Dr. Varela or orthopaedics: * I recommended initial management with coaptation splint with plan to transition to Marrero brace in approximately 1 week once swelling improves. Patient will be mobilized with therapy today. Okay for simple sling when out of bed. Maintain splint until follow-up. He will be nonweightbearing on his left upper extremity. Given his need for rollator and/or walker, we will attempt to mobilize with a one-sided walker, however he may need shelter placement. Plan follow-up in 1 week with x-rays. 03/13: had some pain on ulnar side of wrist. No evidence of cellulitis. It appeared that the hard part of cast was rubbing against his wrist. Advised nursing to add something to cushion his wrist in that area. 03/14: rough edges of cast around dorsal hand and upper arm. DW nursing about padding these areas. Patient also has a history of swelling since his multiple arm surgeries. I did discuss with him that he may have some subtle swelling that may not be visibly noticeable but being in the cast that may be affecting him. Patient may have some lymphatic impairment given his multiple upper extremity surgeries. He has not had any lymph node resections that he is aware of. (2) Unable to ambulate: Status: Acute Code(s): R26.2 - Difficulty in walking, not elsewhere classified Plan: PT OT SNF [facility]. states that he only has 5 days left. She was discussing about doing that her going home. [facility] and then if he does indeed have 5 days left, then to have home care come out to the house. It would would help with the transition of getting him home if he were to leave [facility] for [facility] days. Also advised that he have a hospital bed at home, he has a bed with a rail that is put under the mattress and box [place] that not firm in place. Then there is nothing to restrict her from moving or being pulled out. I told her that would be risky and perhaps a hospital bed would be more preferable at home. That can be facilitated by case management at the nursing facility. (3) Hypokalemia: Status: Acute Code(s): E87.6 - Hypokalemia Plan: Resolved w p.o. potassium ordered (4) Itching: Status: Acute Code(s): L29.9 - Pruritus, unspecified Plan: Patient concerned that it is from fentanyl he received 2 days ago. Doubt drug reaction given that he received fentanyl 2 days ago and no generalized rash. I suspect that the itching on his low back is more contact dermatitis and encouraged him getting up as he is able to try to air it out. Improved on 03/13 (5) Seborrhea of face: Status: Acute Code(s): L21.9 - Seborrheic dermatitis, unspecified Plan: Improved with topical ketoconazole (6) Abdominal pain: Status: Resolved Code(s): R10.9 - Unspecified abdominal pain Plan: Unclear etiology Intermittent Abdominal xray negative. Plan Chronic conditions: * PAF-Continue metoprolol 50 mg p.o. twice daily-Continue amiodarone 200 mg daily-Continue home Eliquis * Chronic anemia due to renal disease/chronic disease-Stable * Hypertension-Continue amlodipine 5 mill grams daily and 1-continue Lasix 80 mg daily-Continue metoprolol 50 mg twice daily * CKD stage FTPq-Skppbb-Nmllk creatinine is at baseline 1.6-1.9-Repeat BMP in a.m.-Avoid nephrotoxins-Follows with Dr. Verenice Monae as outpatient * FELIPE/alpha-1 antitrypsin deficiency status post liver transplant-Liver transplant 2016-Follows at [facility]-Continue tacrolimus-Continue ursodiol-Continue home Bactrim * History of gout-Continue home allopurinol * Chronic pain due to osteoarthritis/rheumatoid arthritis * HFpEF-Continue Lasix 80 mg daily-Had recent echo December 2020 in our system with an EF of 50 to 65% and otherwise unremarkable DVT prophylaxis -Continue Eliquis CODE STATUS -Full code Disposition: Discharged to [facility]. 03/13: Family was concerned about the patient being confused. Patient states he does not feel confused and is able to tell me details about his care but also his prior evaluation for cognitive assessment and prior hospitalizations for other details. I told him that I will feel the patient is actually confused though his delivery, when he speaks, is slow and measured, family indicates that that is more of his normal. He also stated that they are confused concerned that he was confused when they came into the room and woke him up shortly after receiving 10 mg of oxycodone. Explained to them that probably why he was not his normal self and they woke him up this morning. I did tell him if he is having ongoing issues then we may cut his oxycodone from 10 to 5 mg. They are agreeable to that. They are also concerned about not have any testing has been couple days since he had testing. Patient had had issues with hepatic encephalopathy prior to his liver transplant but is no longer taking lactulose. Told would hold off on any lactulose at this point time and did not see any utility in regards to ordering additional test unless there is an acute change but from the concerns that they have it seems his confusion was more Propp related with medications but also being awoken from a deep sleep as patient appears to be appropriate at this time. Also discussing with them about placement. Patient had been declined by the other facilities. I did subsequently discuss with case management who is currently looking at the [place]. Allergies/Procedures Done in Hospital Allergies morphine Allergy (Verified 03/10/23 10:49) Hives pravastatin [From Pravachol] Allergy (Verified 03/10/23 10:49) Hives Vbmvpwg-QOC-ZuO Reductase Inhibitor [Ejonteb-Iio-Hmx Reductase Inhibitor] Allergy (Verified 03/10/23 10:49) Hives vancomycin Allergy (Verified 03/10/23 10:49) NEEDS FOLLOW-UP zolpidem tartrate [From Ambien] Allergy (Verified 03/10/23 10:49) Hives from the controlled or slow-release ambien. does not have any reactions to regular ambien. everolimus Adverse Reaction (Verified 03/10/23 10:49) Swelling gabapentin Adverse Reaction (Verified 03/10/23 10:49) NEEDS FOLLOW-UP Procedures: None Type of Care/Length of Stay Estimated LOS: Convalescent Care Less Than 30 days Type of Care Needed: Skilled Rehab Potential: Fair Prognosis: Good Additional Orders/Day of Discharge Day of Discharge: 03/14/23 Discharge Plan Admission Admit Date/Time: 03/10/23 13:16 Primary Reason for Your Visit: debility. left humeral fracture. Attending Provider: Claudio Rice Primary Care Provider: Lance Bose Chi Consulting Providers: Sachin Varela; Marisa Monae Discharge Orders/Prescriptions Prescriptions: New furosemide 40 mg Tablet 40 mg PO DAILY Qty: 0 0RF ketoconazole 2 % Cream 1 applic topical DAILY PRN (Reason: dandruff, erythema) Qty: 15 0RF Protocol: *Topical Application Instructions APPLICATION INSTRUCTIONS: to affected areas on face and scalp Rx Instructions: to face, scalp. dicyclomine 10 mg capsule 10 mg PO TID PRN (Reason: abdominal cramps/pain) Qty: 20 0RF Continued nitroglycerin 0.4 mg tablet, sublingual 0.4 mg sublingual Q5M PRN (Reason: chest pain) Qty: 25 1RF Rx Instructions: do not exceed 3 doses per episode metoprolol tartrate 50 mg tablet 50 mg PO BID Qty: 180 1RF cyclobenzaprine 10 mg tablet 10 mg PO TID PRN (Reason: MUSCLE SPASMS) Eliquis 5 mg tablet 5 mg PO BID allopurinol 300 mg tablet 300 mg PO DAILY tacrolimus 0.5 mg capsule 0.5 mg PO 0900,2100 citalopram 10 mg tablet 10 mg PO DAILY Patient Comments: TAKE 1 TABLET BY MOUTH DAILY amiodarone 200 mg tablet 200 mg PO DAILY ursodiol 300 mg capsule 300 mg PO BID levothyroxine 25 mcg Tablet 25 mcg PO DAILY@0600 30 Days Qty: 30 0RF famotidine 20 mg Tablet 20 mg PO BID 30 Days Qty: 60 0RF amlodipine 5 mg tablet 5 mg PO DAILY Patient Comments: TAKE 1 TABLET DAILY prochlorperazine maleate 5 mg Tablet 10 mg PO Q6H PRN PRN (Reason: NAUSEA/VOMITING) oxycodone 10 mg tablet 10 mg PO Q8H 3 Days Qty: 9 0RF sulfamethoxazole-trimethoprim 400-80 mg tablet 1 tab PO DAILY Qty: 90 3RF Discontinued furosemide 40 mg tablet 80 mg PO DAILY Referrals / Follow Up: [facility] [Provider Group] - Within 3 Months [facility] [Provider Group] - 04/11/23 1:45 pm Sachin Varela DO [Med Staff - Active Staff] - In 1 Week Lance Bose Chi, MD [Primary Care Provider] - Within 2 Weeks Disposition Disposition (needs filled in before D/C Order can be placed): [facility] (1) Periprosthetic fracture around internal prosthetic joint Qualifiers: Internal joint prosthesis site: shoulder Encounter type: initial encounter Laterality: left Qualified Code(s): M97.32XA - Periprosthetic fracture around internal prosthetic left shoulder joint, initial encounter (6) Abdominal pain Qualifiers: Abdominal location: left lower quadrant Qualified Code(s): R10.32 - Left lower quadrant pain
--- NOTE | 2023-03-14 10:34 | DS.PCM_ITS ---
Providers Date of Admission: 03/10/23 Primary Care Physician: Dr. Lance Bose MD Consultations 03/10/23 14:13 Consult: Orthopedics Routine Consulting Provider: Sachin Varela Reason for Consult: L Humeral fx EMERGENT Consult: No MD Notified: Yes Date Notified: 03/10/23 Time Notified: 13:23 Method of Notification: ED Physician Initiated Reason For Visit: UNABLE TO WALK/L HUMERAL FRACTURE Diagnosis Discharge Diagnosis (1) Periprosthetic fracture around internal prosthetic joint: Status: Acute Code(s): M97.9XXA - Periprosthetic fracture around unspecified internal prosthetic joint, initial encounter Qualifiers: Internal joint prosthesis site: shoulder Encounter type: initial encounter Laterality: left Qualified Code(s): M97.32XA - Periprosthetic fracture around internal prosthetic left shoulder joint, initial encounter Plan: Left periprosthetic humeral fracture s/p mechanical fall. Reviewed OARRS, no recent narcotic Rx. DC note from 02/27: no narcotics. PRN oxycodone 25 oh-d level 102.5, replacement not required. NWB on LUE. Seen by Dr. Varela or orthopaedics: * I recommended initial management with coaptation splint with plan to transition to Marrero brace in approximately 1 week once swelling improves. Patient will be mobilized with therapy today. Okay for simple sling when out of bed. Maintain splint until follow-up. He will be nonweightbearing on his left upper extremity. Given his need for rollator and/or walker, we will attempt to mobilize with a one-sided walker, however he may need group home placement. Plan follow-up in 1 week with x-rays. 03/13: had some pain on ulnar side of wrist. No evidence of cellulitis. It appeared that the hard part of cast was rubbing against his wrist. Advised nursing to add something to cushion his wrist in that area. 03/14: rough edges of cast around dorsal hand and upper arm. DW nursing about padding these areas. Patient also has a history of swelling since his multiple arm surgeries. I did discuss with him that he may have some subtle swelling that may not be visibly noticeable but being in the cast that may be affecting him. Patient may have some lymphatic impairment given his multiple upper extremity surgeries. He has not had any lymph node resections that he is aware of. (2) Unable to ambulate: Status: Acute Code(s): R26.2 - Difficulty in walking, not elsewhere classified Plan: PT OT SNF [facility]. states that he only has 5 days left. She was discussing about doing that her going home. [facility] and then if he does indeed have 5 days left, then to have home care come out to the house. It would would help with the transition of getting him home if he were to leave [facility]. Also advised that he have a hospital bed at home, he has a bed with a rail that is put under the mattress and box [place] that not firm in place. Then there is nothing to restrict her from moving or being pulled out. I told her that would be risky and perhaps a hospital bed would be more preferable at home. That can be facilitated by case management at the nursing facility. (3) Hypokalemia: Status: Acute Code(s): E87.6 - Hypokalemia Plan: Resolved w p.o. potassium ordered (4) Itching: Status: Acute Code(s): L29.9 - Pruritus, unspecified Plan: Patient concerned that it is from fentanyl he received 2 days ago. Doubt drug reaction given that he received fentanyl 2 days ago and no generalized rash. I suspect that the itching on his low back is more contact dermatitis and encouraged him getting up as he is able to try to air it out. Improved on 03/13 (5) Seborrhea of face: Status: Acute Code(s): L21.9 - Seborrheic dermatitis, unspecified Plan: Improved with topical ketoconazole (6) Abdominal pain: Status: Resolved Code(s): R10.9 - Unspecified abdominal pain Qualifiers: Abdominal location: left lower quadrant Qualified Code(s): R10.32 - Left lower quadrant pain Plan: Unclear etiology Intermittent Abdominal xray negative. Plan Chronic conditions: * PAF-Continue metoprolol 50 mg p.o. twice daily-Continue amiodarone 200 mg daily-Continue home Eliquis * Chronic anemia due to renal disease/chronic disease-Stable * Hypertension-Continue amlodipine 5 mill grams daily and 1-continue Lasix 80 mg daily-Continue metoprolol 50 mg twice daily * CKD stage EHZs-Ifakfa-Msqbv creatinine is at baseline 1.6-1.9-Repeat BMP in a.m.-Avoid nephrotoxins-Follows with Dr. Verenice Monae as outpatient * FELIPE/alpha-1 antitrypsin deficiency status post liver transplant-Liver transplant 2016-Follows at [facility]-Continue tacrolimus-Continue ursodiol-Continue home Bactrim * History of gout-Continue home allopurinol * Chronic pain due to osteoarthritis/rheumatoid arthritis * HFpEF-Continue Lasix 80 mg daily-Had recent echo December 2020 in our system with an EF of 50 to 65% and otherwise unremarkable DVT prophylaxis -Continue Eliquis CODE STATUS -Full code Disposition: Discharged to [facility]. 03/13: Family was concerned about the patient being confused. Patient states he does not feel confused and is able to tell me details about his care but also his prior evaluation for cognitive assessment and prior hospitalizations for other details. I told him that I will feel the patient is actually confused though his delivery, when he speaks, is slow and measured, family indicates that that is more of his normal. He also stated that they are confused concerned that he was confused when they came into the room and woke him up shortly after receiving 10 mg of oxycodone. Explained to them that probably why he was not his normal self and they woke him up this morning. I did tell him if he is having ongoing issues then we may cut his oxycodone from 10 to 5 mg. They are agreeable to that. They are also concerned about not have any testing has been couple days since he had testing. Patient had had issues with hepatic encephalopathy prior to his liver transplant but is no longer taking lactulose. Told would hold off on any lactulose at this point time and did not see any utility in regards to ordering additional test unless there is an acute change but from the concerns that they have it seems his confusion was more Propp related with medications but also being awoken from a deep sleep as patient appears to be appropriate at this time. Also discussing with them about placement. Patient had been declined by the other facilities. I did subsequent ly discuss with case management who [facility]. Medications at Discharge Home Medications cyclobenzaprine 10 mg tablet 10 mg PO TID PRN MUSCLE SPASMS 06/19/22 apixaban 5 mg tablet (Eliquis) 5 mg PO BID BLOOD THINNER 07/20/22 allopurinol 300 mg tablet 300 mg PO DAILY GOUT 11/04/22 tacrolimus 0.5 mg capsule, immediate-release 0.5 mg PO 0900,2100 LIVER TRANSPLANT 11/06/22 sulfamethoxazole 400 mg-trimethoprim 80 mg tablet 1 tab PO DAILY LIVER TRANSPLANT #90 tabs 11/20/22 metoprolol tartrate 50 mg tablet 50 mg PO BID BLOOD PRESSURE #180 tabs 11/27/22 nitroglycerin 0.4 mg sublingual tablet 0.4 mg sublingual Q5M PRN chest pain #25 tabs 11/27/22 citalopram 10 mg tablet 10 mg PO DAILY MOOD 02/08/23 amiodarone 200 mg tablet 200 mg PO DAILY BP 02/14/23 ursodiol 300 mg capsule 300 mg PO BID Gallstones 02/14/23 famotidine 20 mg tablet 20 mg PO BID 30 days #60 tabs 02/27/23 levothyroxine 25 mcg tablet 25 mcg PO DAILY@0600 30 days #30 tabs 02/27/23 amlodipine 5 mg tablet 5 mg PO DAILY HTN 03/10/23 prochlorperazine maleate 5 mg tablet 10 mg PO Q6H PRN PRN NAUSEA/VOMITING 03/10/23 dicyclomine 10 mg capsule 10 mg PO TID PRN abdominal cramps/pain #20 caps 03/14/23 furosemide 40 mg tablet 40 mg PO DAILY #0 tabs 03/14/23 ketoconazole 2 % topical cream 1 applic topical DAILY PRN dandruff, erythema #15 grams 03/14/23 oxycodone 10 mg tablet 10 mg PO Q8H BTP 3 days #9 tabs 03/14/23 Hospital Course Operations None Procedures None Summary of Care Provided Minutes Spent on Discharge: 45 Weight / BMI Weight Weight: 159.6 kg Body Mass Index (BMI) 50.5 ABG / Lab / Microbiology Data 03/11/23 04:25 03/11/23 04:25 Radiography Diagnostic Testing: Radiology Impression KUB X-Ray 03/13/23 19:00 IMPRESSION: Nonspecific bowel gas pattern. Electronically Signed: Solitario Brothers MD at 19:55 EDT , Meaningful Use Info Meaningful Use Diagnoses (Choose all that apply): None applicable Discharge Plan Admission Admit Date/Time: 03/10/23 13:16 Primary Reason for Your Visit: debility. left humeral fracture. Attending Provider: Claudio Rice Primary Care Provider: Lance Bose Chi Consulting Providers: Sachin Varela; Marisa Monae Discharge Orders/Prescriptions Prescriptions: New furosemide 40 mg Tablet 40 mg PO DAILY Qty: 0 0RF ketoconazole 2 % Cream 1 applic topical DAILY PRN (Reason: dandruff, erythema) Qty: 15 0RF Protocol: *Topical Application Instructions APPLICATION INSTRUCTIONS: to affected areas on face and scalp Rx Instructions: to face, scalp. dicyclomine 10 mg capsule 10 mg PO TID PRN (Reason: abdominal cramps/pain) Qty: 20 0RF Continued nitroglycerin 0.4 mg tablet, sublingual 0.4 mg sublingual Q5M PRN (Reason: chest pain) Qty: 25 1RF Rx Instructions: do not exceed 3 doses per episode metoprolol tartrate 50 mg tablet 50 mg PO BID Qty: 180 1RF cyclobenzaprine 10 mg tablet 10 mg PO TID PRN (Reason: MUSCLE SPASMS) Eliquis 5 mg tablet 5 mg PO BID allopurinol 300 mg tablet 300 mg PO DAILY tacrolimus 0.5 mg capsule 0.5 mg PO 0900,2100 citalopram 10 mg tablet 10 mg PO DAILY Patient Comments: TAKE 1 TABLET BY MOUTH DAILY amiodarone 200 mg tablet 200 mg PO DAILY ursodiol 300 mg capsule 300 mg PO BID levothyroxine 25 mcg Tablet 25 mcg PO DAILY@0600 30 Days Qty: 30 0RF famotidine 20 mg Tablet 20 mg PO BID 30 Days Qty: 60 0RF amlodipine 5 mg tablet 5 mg PO DAILY Patient Comments: TAKE 1 TABLET DAILY prochlorperazine maleate 5 mg Tablet 10 mg PO Q6H PRN PRN (Reason: NAUSEA/VOMITING) oxycodone 10 mg tablet 10 mg PO Q8H 3 Days Qty: 9 0RF sulfamethoxazole-trimethoprim 400-80 mg tablet 1 tab PO DAILY Qty: 90 3RF Discontinued furosemide 40 mg tablet 80 mg PO DAILY Referrals / Follow Up: [facility] [Provider Group] - Within 3 Months [facility] [Provider Group] - 04/11/23 1:45 pm Sachin Varela DO [Med Staff - Active Staff] - In 1 Week Lance Bose Chi, MD [Primary Care Provider] - Within 2 Weeks Disposition Disposition (needs filled in before D/C Order can be placed): [facility] Charges/Coding Visit Charges Inpatient E&M: 71992 Disch Hosp >30min
--- NOTE | 2023-03-14 11:24 | CASEMGMT ---
Discharge Planning Discharge orders, signed med list, and transport time sent to [facility] will transport patient by cot at 12:30p. Patient, his , nursing, and SW notified. Vania Hill, Discharge Planning Asst.
--- NOTE | 2023-03-14 11:26 | CASEMGMT ---
Social Work PASRR completed in [facility] for admission to [place]. Disposition: [place], skilled level of care [facility] [place]
--- NOTE | 2023-03-14 11:28 | CASEMGMT ---
Discharge Planning Covid results sent to [facility] Vania Hill, Discharge Planning Asst.
--- NOTE | 2023-03-14 11:44 | NURSING ---
Report called to the [facility] at [place] [phone] to Dolly garcia nurse. supervisor shearing time will be at 12:30.
--- NOTE | 2023-03-14 12:22 | NURSING ---
pt found laying across bed with sign. other sitting in chair bedside pt bracing his feet. pt states he got tired of sitting up and layed back. sign.other states bracing his feet so doesn't slide out. discussed transportation/discharge with patient and sign. other. discussed sitting in recliner. pt agreeable to reposition into bed for concerns of falling oob. pt repositioned x2 assist. [address] sign. other remains bedside, call light within reach.
== END 2023-03-14 12:42 | disposition skilled nursing facility (03) ==
LOC: ED 12:57 → MS3 13:40
PROVIDERS: Admitting Provider Internal Medicine; Emergency Provider Emergency Medicine; PCP Family Medicine Geriatric Medicine
DX: S42.202A Unspecified fracture of upper end of left humerus, initial encounter for closed fracture (principal); Z94.4 Liver transplant status; M06.9 Rheumatoid arthritis, unspecified; I13.0 Hypertensive heart and chronic kidney disease with heart failure and stage 1 through stage 4 chronic kidney disease, or unspecified chronic kidney disease; I50.32 Chronic diastolic (congestive) heart failure; I48.0 Paroxysmal atrial fibrillation; E66.01 Morbid (severe) obesity due to excess calories; Z68.43 Body mass index [BMI] 50.0-59.9, adult; N18.32 Chronic kidney disease, stage 3b; K75.81 Nonalcoholic steatohepatitis (NASH); E87.6 Hypokalemia; I25.10 Atherosclerotic heart disease of native coronary artery without angina pectoris; M10.9 Gout, unspecified; W06.XXXA Fall from bed, initial encounter; M97.32XA Periprosthetic fracture around internal prosthetic left shoulder joint, initial encounter; Z79.01 Long term (current) use of anticoagulants; I25.2 Old myocardial infarction; Z79.899 Other long term (current) drug therapy; L29.9 Pruritus, unspecified; L21.9 Seborrheic dermatitis, unspecified; D63.1 Anemia in chronic kidney disease
CPT/HCPCS: 29105; 36415; 73060; 74018; 80048; 82306; 83735; 85025; 85610; 85730; 87426; 94668; 96374; 96375; 96376; 97162; 97166; 97530; 97535; 99221; 99252; 99284; A4216; G0378; G0463

== ENCOUNTER → 2023-03-19 | Outpatient (CLI) | payer MEDICARE, SELFPAY ==
[2023-03-19 17:42] LABS: Absolute Neutrophil Count 5.2 X10^3/uL (2.0-7.7); Basophil# 0.05 X10^3/uL; Basophil% 0.6 % (0-1); Eosinophil# 0.55 X10^3/uL; Eosinophils% 6.1 % (0-5); Hematocrit 30.7 % (40-54); Hemoglobin 9.9 g/dL (13.0-16.5); Lymphocyte % 25.4 % (19-41); Mean Corp Hgb Conc 32.2 g/dL (32-36); Mean Corpuscular Hgb 30.7 pg (27.0-32.0); Mean Platelet Vol. 9.9 fl (6.2-12.0); Monocyte# 0.89 X10^3/uL; Monocyte% 9.8 % (0-10); NRBC Flagged by Analyzer 0 % (0-5); Neutrophil # 5.22 X10^3/uL (2.7-7.7); Neutrophil % 57.8 % (47-70); Platelet Count 285 K/mm3 (150-450); RBC Distribution Width CV 14.6 % (11.6-14.6); RBC Distribution Width SD 50.3 fl (35.1-43.9); Red Blood Count 3.23 M/mm3 (4.6-6.2)
[2023-03-19 17:55] LABS: Anion Gap 9 (5-15); BUN 31 mg/dL (7-18); BUN/Creat Ratio 12.7 RATIO (10-20); Calcium,Total 9.2 mg/dL (8.5-10.1); Chloride 100 mmol/L (98-107); Creatinine, Serum 2.45 mg/dL (0.70-1.30); EST Glomerular Filtration Rate 29 mL/min (>60); Est Glom Filt Rate - Afr Amer 35 mL/min (>60); Glucose 142 mg/dL (74-106); Sodium Level 132 mmol/L (136-145)
== END | disposition home or self-care (01) ==
LOC: POLAB3 15:05
PROVIDERS: PCP Family Medicine Geriatric Medicine; Visit Provider Family Medicine Geriatric Medicine
DX: I50.30 Unspecified diastolic (congestive) heart failure (principal)
CPT/HCPCS: 36415; 80048; 85025

== ENCOUNTER → 2023-04-02 | Outpatient (CLI) | payer MEDICARE, SELFPAY ==
[2023-04-02 10:50] LABS: Anion Gap 4 (5-15); BUN 20 mg/dL (7-18); BUN/Creat Ratio 9.4 RATIO (10-20); Calcium,Total 9.1 mg/dL (8.5-10.1); Chloride 110 mmol/L (98-107); Creatinine, Serum 2.13 mg/dL (0.70-1.30); EST Glomerular Filtration Rate 34 mL/min (>60); Est Glom Filt Rate - Afr Amer 41 mL/min (>60); Glucose 126 mg/dL (74-106); Potassium 4.7 mmol/L (3.5-5.1); Sodium Level 138 mmol/L (136-145)
== END | disposition home or self-care (01) ==
LOC: LAB 09:57
PROVIDERS: PCP Family Medicine Geriatric Medicine; Referring Provider Family Medicine Geriatric Medicine; Visit Provider Family Medicine Geriatric Medicine
DX: I50.30 Unspecified diastolic (congestive) heart failure (principal)
CPT/HCPCS: 36415; 80048

== ENCOUNTER → 2023-04-11 | Outpatient (CLI) | payer MEDICARE, SELFPAY ==
[2023-04-11 15:41] LABS: AST(SGOT) 13 U/L (15-37); Alanine Aminotransfer ALT/SGPT 12 U/L (16-61); Thyroid Stim Hormone (TSH) 4.02 uIU/mL (0.358-3.74)
== END | disposition home or self-care (01) ==
LOC: LAB 14:38
PROVIDERS: PCP Family Medicine Geriatric Medicine; Referring Provider Internal Medicine Cardiovascular Disease; Visit Provider Internal Medicine Cardiovascular Disease
DX: I48.0 Paroxysmal atrial fibrillation (principal); Z94.4 Liver transplant status; I25.10 Atherosclerotic heart disease of native coronary artery without angina pectoris; N18.9 Chronic kidney disease, unspecified; I12.9 Hypertensive chronic kidney disease with stage 1 through stage 4 chronic kidney disease, or unspecified chronic kidney disease
CPT/HCPCS: 36415; 84443; 84450; 84460

== ENCOUNTER → 2023-04-15 | Outpatient (CLI) | payer MEDICARE, SELFPAY ==
--- NOTE | 2023-04-15 15:06 | US_ITS ---
ACR Level 3 findings have been noted. An addendum which confirms receipt of the report will follow. EXAM: US SCROTUM CLINICAL INDICATION: TESTICULAR PAIN TECHNIQUE: Realtime ultrasound of the testicles was performed with grayscale and Color Doppler analysis. COMPARISON: No relevant prior studies available. FINDINGS: RIGHT TESTICLE: Unremarkable. 3.8 cm x 3.1 cm x 1.9 cm. Normal in size and echotexture. No focal lesion. Normal blood flow is present. LEFT TESTICLE: Unremarkable. 3.9 cm x 2.7 cm x 1.9 cm. Normal in size and echotexture. No focal lesion. Normal blood flow is present. EPIDIDYMIDES: Unremarkable. Right epididymal head 1 cm maximum diameter, left epididymal head 0.7 cm maximum diameter. Normal in size and echotexture, without focal lesion. Normal color Doppler flow pattern in the epididymis. SCROTUM: No significant hydrocele or varicocele. There is heterogeneous mild vascular solid-appearing tissue superior to the left testis, correlate with hernia or palpable mass. US/Testicular with Arterial Flow IMPRESSION: Unremarkable testes and epididymides. No significant asymmetry of the scrotal wall. Indeterminate increased soft tissue density superior to the left scrotum. Please correlate with evidence of left inguinal fat-containing hernia or other palpable mass. Electronically Signed: Halima Orr MD at 3:48 EDT ,
== END | disposition home or self-care (01) ==
LOC: US 15:05
PROVIDERS: PCP Family Medicine Geriatric Medicine; Referring Provider Family Medicine Geriatric Medicine; Visit Provider Family Medicine Geriatric Medicine
DX: N50.819 Testicular pain, unspecified (principal)
CPT/HCPCS: 76870; 93976

== ENCOUNTER 2023-04-24 10:37 | Inpatient (IN) | payer MEDICARE, SELFPAY ==
[2023-04-24] VITALS (8 sets, daily range): BP systolic 119–139; BP diastolic 62–78; PULSE 53–81; RESP 14–18; TEMP 36.1–36.8; O2SAT 97–100; BMI 53.4; BMI 51.7
--- NOTE | 2023-04-24 11:28 | EX.ED.DYSGE1 ---
HPI History of Present Illness Chief Complaint: General Illness Informant: patient and spouse/S.O. Narrative Narrative: Patient presents with 30 pound weight gain. Patient states he has gained about 30 pounds of water over the last 2 to 3 months. He came in today because he is having trouble walking due to leg pain and swelling and he is also just starting to get slightly short of breath. He has a history of CHF. They state that a couple months ago his Lasix was reduced from 40-20 a day after he was admitted to the hospital with some acute kidney injury. He has stayed on that lower dose. He is also taking and still on and taking twice a day his Eliquis for paroxysmal A-fib. He is not having chest pain. No fevers or chills. He just feels as though he is filling up with fluid which he has done before. He has had liver transplant about 6 years ago but has had no major complications from that. He does have some history of kidney disease but has his circle kidneys. [facility] Medical History (HFpEF) heart failure with preserved ejection fraction Acidosis, lactic Acute hypotension Adult failure to thrive Anemia in chronic illness Anemia of chronic disease Anxiety Ascites Atherosclerotic heart disease of circle coronary artery without angina pectoris Atrial fibrillation Atrial fibrillation Atrial flutter with rapid ventricular response (02/02/21) BMI 50.0-59.9, adult CAD (coronary artery disease) Cellulitis Chest pain Chronic anticoagulation Chronic diastolic congestive heart failure Chronic kidney disease Chronic kidney disease, stage 3a Chronic kidney disease, stage 3b Chronic renal failure, stage 3 (moderate) Chronic renal insufficiency Cirrhosis Closed left humeral fracture Coronary artery disease Coronary artery disease Debility Debility Elevated troponin Gout Gout History of non-ST elevation myocardial infarction (NSTEMI) (12/29/20) Hypertension Insomnia Kidney disease Lactic acidosis Lumbar radiculopathy Malaise and fatigue Morbid obesity Morbid obesity Multiple falls FELIPE (nonalcoholic steatohepatitis) FELIPE (nonalcoholic steatohepatitis) Nonsustained paroxysmal ventricular tachycardia (12/2020) Osteoarthritis of ankle and foot PAF (paroxysmal atrial fibrillation) Paroxysmal atrial fibrillation Periprosthetic fracture around internal prosthetic joint Right hip pain Seborrhea of face SOB (shortness of breath) Unable to ambulate Venous insufficiency Vertigo, central Weakness Home Medications cyclobenzaprine 10 mg tablet 10 mg PO TID PRN MUSCLE SPASMS 06/19/22 [History Last Taken 03/09/23] apixaban 5 mg tablet (Eliquis) 5 mg PO BID BLOOD THINNER 07/20/22 [History Last Taken 03/10/23] allopurinol 300 mg tablet 300 mg PO DAILY GOUT 11/04/22 [History Last Taken 03/10/23] tacrolimus 0.5 mg capsule, immediate-release 0.5 mg PO 0900,2100 LIVER TRANSPLANT 11/06/22 [History Last Taken 03/10/23] metoprolol tartrate 50 mg tablet 50 mg PO BID BLOOD PRESSURE #180 tabs 11/27/22 [Rx Last Taken 03/10/23] nitroglycerin 0.4 mg sublingual tablet 0.4 mg sublingual Q5M PRN chest pain #25 tabs 11/27/22 [Rx Last Taken Unknown] citalopram 10 mg tablet 10 mg PO DAILY MOOD 02/08/23 [History Last Taken Unknown] amiodarone 200 mg tablet 200 mg PO DAILY BP 02/14/23 [History Last Taken 03/09/23] ursodiol 300 mg capsule 300 mg PO BID Gallstones 02/14/23 [History Last Taken 03/10/23] famotidine 20 mg tablet 20 mg PO BID 30 days #60 tabs 02/27/23 [Rx Last Taken 03/10/23] levothyroxine 25 mcg tablet 25 mcg PO DAILY@0600 30 days #30 tabs 02/27/23 [Rx Last Taken Unknown] prochlorperazine maleate 5 mg tablet 10 mg PO Q6H PRN PRN NAUSEA/VOMITING 03/10/23 [History Last Taken 03/09/23] dicyclomine 10 mg capsule 10 mg PO TID PRN abdominal cramps/pain #20 caps 03/14/23 [Rx Last Taken Unknown] furosemide 40 mg tablet 40 mg PO DAILY #0 tabs 03/14/23 [Rx Last Taken Unknown] ketoconazole 2 % topical cream 1 applic topical DAILY PRN dandruff, erythema #15 grams 03/14/23 [Rx Last Taken Unknown] oxycodone 10 mg tablet 10 mg PO Q8H BTP 3 days #9 tabs 03/14/23 [Rx Last Taken Unknown] sulfamethoxazole 400 mg-trimethoprim 80 mg tablet 1 tab PO DAILY LIVER TRANSPLANT 04/11/23 [History Last Taken Unknown] Allergy/AdvReac Type Severity Reaction Status Date / Time morphine Allergy Hives Verified 04/24/23 10:40 pravastatin [From Pravachol] Allergy Hives Verified 04/24/23 10:40 Jwlmoby-KPR-GbF Reductase Allergy Hives Verified 04/24/23 10:40 Inhibitor [Ldmbdab-Hyw-Xpo Reductase Inhibitor] vancomycin Allergy NEEDS Verified 04/24/23 10:40 FOLLOW-UP zolpidem tartrate Allergy Hives Verified 04/24/23 10:40 [From Ambien] everolimus AdvReac Swelling Verified 04/24/23 10:40 gabapentin AdvReac NEEDS Verified 04/24/23 10:40 FOLLOW-UP Family History Mother Heart disease Father Heart disease Surgical History H/O shoulder surgery History of cardioversion (02/02/21) History of cataract extraction with lens replacement (~11/22/22) History of hip surgery History of liver transplant Liver transplant recipient S/P PTCA (percutaneous transluminal coronary angioplasty) Status post liver transplant (07/2017) Social History household members: spouse Smoking Status: Never smoker alcohol intake: former substance use type: does not use caffeine: No ROS ROS ED ROS Narrative A complete review of systems was performed and is negative except as documented in the history of present illness. Some specific details below. Constitutional: No recent fevers or chills. No malaise. EYE: No discharge, visual complaints, or pain. ENT: No difficulty swallowing. No tongue swelling. No pain. No reflux symptoms. CV: Denies chest pain. He does have a history of atrial fibrillation though. Respiratory: See history of present illness. He states he is just starting to get short of breath. This is a little bit worse laying down. GI: No abdominal pain. No nausea vomiting diarrhea. No blood in stool. : No frequency dysuria or hematuria. Musculoskeletal: He has had left arm swelling for 6 weeks ever since he broke his arm. He has seen his doctor for this. The splint was taken off recently. He evidently has not fully healed. The swelling is not worsening or changing. Skin: No rash. Nondiaphoretic. Neuro: No weakness or numbness. Endocrine: No polyuria or polydipsia. EXAM Physical Exam Narrative Exam Narrative: CONSTITUTIONAL: Patient is nontoxic in appearance. The patient looks comfortable. Work of breathing looks normal. He does not look toxic. HEENT: No notable trauma. Mucous membranes moist. EYES: No conjunctival injection. No proptosis. He is not icteric. NECK:No JVD. No stridor. CARDIOVASCULAR: Despite a history of atrial fibrillation his rhythm does found regular. His rate is about 60. He appears to be normal sinus rhythm with a rate of 58-64 on the monitor while I am in the room. No muffled tones. RESPIRATORY: No respiratory distress. Breathing is unlabored. Saturations are still good on room air while sitting still. His breath sounds are distant likely due to his size. I cannot definitively hear rales. GASTROINTESTINAL: Obese but does not appear to be notably distended. Bowel sounds are normal. No tenderness. No guarding. No rebound. No palpable mass. No bruit is heard. GENITOURINARY: No tenderness over the bladder. No CVA tenderness. MUSCULOSKELETAL: Patient does have diffuse edema. Legs are equal and +2. The left upper extremity is more edematous than the right but it has been this way for 6 weeks. No distended veins and no cord is felt. NEUROLOGICAL: Patient is alert and appropriate. No focal deficit noted. SKIN: No noted rashes. No diaphoresis. PSYCHIATRIC: Patient is calm. Mood is appropriate. Const Vital Signs: 04/24/23 10:38 04/24/23 10:48 04/24/23 13:30 Temperature 97.0 F L Temperature Source Temporal Pulse Rate 59 L 62 Respiratory Rate 14 14 Respiratory Pattern Normal Blood Pressure 139/67 H 138/76 H Blood Pressure Mean 91 96 Pulse Ox 99 97 Oxygen Delivery Method Room Air Room Air MDM MDM MDM Narrative Medical decision making narrative: Patient CBC shows a baseline anemia but I do not think his dyspnea is caused by this as this is his normal level. Patient's electrolytes do show creatinine abnormal but really at about his baseline. No sign of a new acute kidney injury. Beta natruretic peptide was elevated at 453. Although not markedly high this is relatively high for him. My independent interpretation of his chest x-ray shows no acute process but does have a slightly enlarged cardiac silhouette. This is difficult to interpret accurately on an AP film. Final reading is no radiographic evidence of acute cardiopulmonary disease. We tried to get up the patient and walk. With getting to the bedside he did not desaturate. But he is unstable and not really safe walking. He normally uses a walker but has not been able to do this because he broke his left arm and does not have strength in it yet. I got further information from family and him. Although he has been gaining weight for some months a lot of this is within the last just few weeks. The weakness is really occurred over the last 3 to 4 days. He was doing physical therapy at home and doing pretty well even with the left arm being broken. He was ambulating well. But he states the last few days is just gotten harder. His legs are heavier and gaining fluid. I do not think DVT or PE is likely as he is taking Eliquis and has not missed dosages. But he is not safe to go home. He is too weak. We will have to try to get some of the fluid off of him, watch his kidney function closely, and increase his strength. Lab Data Attestation: I reviewed the patient's lab results. Labs: Laboratory Results - last 24 hr 04/24/23 11:40 WBC 7.8 RBC 2.91 L Hgb 9.3 L Hct 28.4 L MCV 97.6 H MCH 32.0 MCHC 32.7 RDW Std Deviation 55.3 H RDW Coeff of Maciel 15.8 H Plt Count 220 MPV 10.5 Immature Gran % (Auto) 0.300 Neut % (Auto) 74.1 H Lymph % (Auto) 14.2 L [place] % (Auto) 9.3 Eos % (Auto) 1.7 Baso % (Auto) 0.4 Absolute Neuts (auto) 5.8 Absolute Lymphs (auto) 1.10 Nucleated RBC % 0 Sodium 140 Potassium 4.1 Chloride 113 H Carbon Dioxide 21.0 Anion Gap 6 BUN 31 H Creatinine 1.95 H Estim Creat Clear Calc 40.56 Est GFR (MDRD) Af Amer 45 L Est GFR (MDRD) Non-Af 37 L BUN/Creatinine Ratio 15.9 Glucose 175 H Calcium 8.5 B-Natriuretic Peptide 453.3 H Radiography Diagnostic Testing: Clinical Impression(s) from Imaging Studies Chest X-Ray 04/24/23 11:35 IMPRESSION: No radiographic evidence of acute cardiopulmonary disease. Electronically Signed: Ly Yeung MD at 12:10 EDT , EKG Initial EKG: Comments: Independent interpretation the patient's EKG shows a normal sinus rhythm with overall rate of 54. No ventricular ectopy. No acute ST elevation or depression. Slightly low diffuse voltage possibly due to body habitus. [place] interval is high normal at 200 ms. QRS and QTc are normal. Management Discussion w/another healthcare provider: Hospitalist Discharge Plan Triage Chief Complaint: General Illness ED Provider: Hamlet Nagel Dx/Rx/DC Orders Clinical Impression: Congestive heart failure, Abnormal weight gain, Generalized weakness Prescriptions: No Action nitroglycerin 0.4 mg tablet, sublingual 0.4 mg sublingual Q5M PRN (Reason: chest pain) Qty: 25 1RF Rx Instructions: do not exceed 3 doses per episode metoprolol tartrate 50 mg tablet 50 mg PO BID Qty: 180 1RF sulfamethoxazole-trimethoprim 400-80 mg tablet 1 tab PO DAILY cyclobenzaprine 10 mg tablet 10 mg PO TID PRN (Reason: MUSCLE SPASMS) Eliquis 5 mg tablet 5 mg PO BID allopurinol 300 mg tablet 300 mg PO DAILY tacrolimus 0.5 mg capsule 0.5 mg PO 0900,2100 citalopram 10 mg tablet 10 mg PO DAILY Patient Comments: TAKE 1 TABLET BY MOUTH DAILY amiodarone 200 mg tablet 200 mg PO DAILY ursodiol 300 mg capsule 300 mg PO BID levothyroxine 25 mcg Tablet 25 mcg PO DAILY@0600 30 Days Qty: 30 0RF famotidine 20 mg Tablet 20 mg PO BID 30 Days Qty: 60 0RF prochlorperazine maleate 5 mg Tablet 10 mg PO Q6H PRN PRN (Reason: NAUSEA/VOMITING) furosemide 40 mg Tablet 40 mg PO DAILY Qty: 0 0RF ketoconazole 2 % Cream 1 applic topical DAILY PRN (Reason: dandruff, erythema) Qty: 15 0RF Protocol: *Topical Application Instructions APPLICATION INSTRUCTIONS: to affected areas on face and scalp Rx Instructions: to face, scalp. dicyclomine 10 mg capsule 10 mg PO TID PRN (Reason: abdominal cramps/pain) Qty: 20 0RF oxycodone 10 mg tablet 10 mg PO Q8H 3 Days Qty: 9 0RF Primary Care Provider: Lance Bose Chi Referrals: Lance Bose Chi, MD [Primary Care Provider] - Disposition Disposition: Acute Care Hospital
--- NOTE | 2023-04-24 11:35 | RAD_ITS ---
INDICATION: Shortness of breath EXAMINATION/TECHNIQUE: X-RAY - XR Chest 1 View COMPARISON: Prior studies dated: February 08, 2023 FINDINGS: LINES/DEVICES: None. LUNGS: No consolidation, edema or effusion. No pneumothorax. MEDIASTINUM AND CARDIOVASCULAR STRUCTURES: Cardiac silhouette not enlarged. Central airways and mediastinal contour are unremarkable. BONES AND SOFT TISSUES: There is a grossly stable partially visualized left shoulder arthroplasty. RAD/Chest 1 View (Portable) IMPRESSION: No radiographic evidence of acute cardiopulmonary disease. Electronically Signed: Ly Yeung MD at 12:10 EDT ,
[2023-04-24 11:57] LABS: Absolute Neutrophil Count 5.8 X10^3/uL (2.0-7.7); Anion Gap 6 (5-15); BUN 31 mg/dL (7-18); BUN/Creat Ratio 15.9 RATIO (10-20); Basophil# 0.03 X10^3/uL; Basophil% 0.4 % (0-1); Calcium,Total 8.5 mg/dL (8.5-10.1); Chloride 113 mmol/L (98-107); Creatinine, Serum 1.95 mg/dL (0.70-1.30); EST Glomerular Filtration Rate 37 mL/min (>60); Eosinophil# 0.13 X10^3/uL; Eosinophils% 1.7 % (0-5); Est Glom Filt Rate - Afr Amer 45 mL/min (>60); Estimated Creatinine Clearance 40.56 ml/min; Glucose 175 mg/dL (74-106); Hematocrit 28.4 % (40-54); Hemoglobin 9.3 g/dL (13.0-16.5); Lymphocyte % 14.2 % (19-41); Mean Corp Hgb Conc 32.7 g/dL (32-36); Mean Corpuscular Volume 97.6 fL (80-94); Mean Platelet Vol. 10.5 fl (6.2-12.0); Monocyte# 0.72 X10^3/uL; Monocyte% 9.3 % (0-10); NRBC Flagged by Analyzer 0 % (0-5); Neutrophil # 5.77 X10^3/uL (2.7-7.7); Neutrophil % 74.1 % (47-70); Platelet Count 220 K/mm3 (150-450); Potassium 4.1 mmol/L (3.5-5.1); RBC Distribution Width CV 15.8 % (11.6-14.6); RBC Distribution Width SD 55.3 fl (35.1-43.9); Red Blood Count 2.91 M/mm3 (4.6-6.2); Sodium Level 140 mmol/L (136-145); White Blood Count 7.8 K/mm3 (4.4-11.0)
[2023-04-24 12:23] LABS: BNP,B-Type NATRIURETIC PEPTIDE 453.3 pg/mL (0-100)
--- NOTE | 2023-04-24 14:22 | CM.ED ---
Social Work SW performed chart review, most recent LW and HCPOA documents uploaded as of 2022. Patient's identified HCPOA is his , Sheba and alternates are patient's daughters, Frida, Alda and Mallory. No special instructions on either document. Ginny Urban MSW, ZAHRA
[2023-04-24 14:47] LABS: Magnesium 1.9 mg/dL (1.6-2.6)
[2023-04-24] MEDS: Furosemide 40 MG/4 ML Vial IV ×3 (14:49→21:44)
--- NOTE | 2023-04-24 16:59 | PCM.HP.STD ---
HPI - General General Date of Admission: 04/24/23 Date of Service: 04/24/23 Chief Complaint: Hyperkalemia, CKD HPI Narrative ESTEFANIA MILLER is a 62 M with history of FELIPE s/p liver transplant (6 to 7 years ago), CKD stage IIIb, hypothyroidism, A-fib on Eliquis, depression and obesity who presented to the hospital ED on 04/24/2023 with worsening hypervolemia and reported 30 pound weight gain. Patient seen at bedside, and daughter present. Patient laying almost flat in bed, in no acute distress, conversing normally with no increased work of breathing noted on room air. He does appear somewhat fatigued. Patient states that he follows with Dr. Bose (PCP) and Dr. Monae (nephrology) in the outpatient setting. He had his Lasix dose decreased within the last month or 2 due to worsening creatinine. Since that time, he noticed that he has had worsening swelling in his lower extremities. He has not noted significant shortness of breath, however his activity level is fairly limited. Patient lives at home with his . He suffered a fall onto his left arm and fractured his humerus about 2 to 3 weeks ago. Notably, this is the third or fourth time he has fractured this arm. He has had home health care working with him in the home since that time. States he prefers to do physical therapy at home if able. Feels like he has made progress with his arm, but was progressively able to do less due to fatigue with exertion. He otherwise denies any fevers or chills recently. He continues to have good urine output. He reports eating and drinking fairly well. He denies any acute pain or discomfort at this time. Labs in the ED showed a normal WBC count, hemoglobin 9.3 (baseline), creatinine 1.95 (baseline around 1.6-2.0), BNP 453. Chest x-ray was actually fairly clear, did not show signs of volume overload. EKG was benign. [facility] Medical History (HFpEF) heart failure with preserved ejection fraction Acidosis, lactic Acute hypotension Adult failure to thrive Anemia in chronic illness Anemia of chronic disease Anxiety Ascites Atherosclerotic heart disease of [place] coronary artery without angina pectoris Atrial fibrillation Atrial fibrillation Atrial flutter with rapid ventricular response (02/02/21) BMI 50.0-59.9, adult CAD (coronary artery disease) Cellulitis Chest pain Chronic anticoagulation Chronic diastolic congestive heart failure Chronic kidney disease Chronic kidney disease, stage 3a Chronic kidney disease, stage 3b Chronic renal failure, stage 3 (moderate) Chronic renal insufficiency Cirrhosis Closed left humeral fracture Coronary artery disease Coronary artery disease Debility Debility Elevated troponin Gout Gout History of non-ST elevation myocardial infarction (NSTEMI) (12/29/20) Hypertension Insomnia Kidney disease Lactic acidosis Lumbar radiculopathy Malaise and fatigue Morbid obesity Morbid obesity Multiple falls FELIPE (nonalcoholic steatohepatitis) FELIPE (nonalcoholic steatohepatitis) Nonsustained paroxysmal ventricular tachycardia (12/2020) Osteoarthritis of ankle and foot PAF (paroxysmal atrial fibrillation) Paroxysmal atrial fibrillation Periprosthetic fracture around internal prosthetic joint Right hip pain Seborrhea of face SOB (shortness of breath) Unable to ambulate Venous insufficiency Vertigo, central Weakness Home Medications apixaban 5 mg tablet (Eliquis) 5 mg PO BID BLOOD THINNER 07/20/22 [History Last Taken 04/24/23] allopurinol 300 mg tablet 300 mg PO DAILY GOUT 11/04/22 [History Last Taken 04/24/23] tacrolimus 0.5 mg capsule, immediate-release 0.5 mg PO 0900,2100 LIVER TRANSPLANT 11/06/22 [History Last Taken 04/24/23] metoprolol tartrate 50 mg tablet 50 mg PO BID BLOOD PRESSURE #180 tabs 11/27/22 [Rx Last Taken 04/24/23] nitroglycerin 0.4 mg sublingual tablet 0.4 mg sublingual Q5M PRN CHEST PAIN #25 tabs 11/27/22 [Rx Last Taken Unknown] citalopram 10 mg tablet 10 mg PO DAILY MOOD 02/08/23 [History Last Taken 04/24/23] amiodarone 200 mg tablet 200 mg PO DAILY BLOOD PRESSURE 02/14/23 [History Last Taken 04/24/23] ursodiol 300 mg capsule 300 mg PO BID GALLSTONES 02/14/23 [History Last Taken 04/24/23] prochlorperazine maleate 5 mg tablet 10 mg PO Q6H PRN NAUSEA/VOMITING 03/10/23 [History Last Taken 03/09/23] sulfamethoxazole 400 mg-trimethoprim 80 mg tablet 1 tab PO DAILY LIVER TRANSPLANT 04/11/23 [History Last Taken 04/24/23] alprazolam 0.5 mg tablet 0.5 mg PO DAILY PRN ANXIETY 04/24/23 [History Last Taken Unknown] amlodipine 5 mg tablet 5 mg PO DAILY BLOOD PRESSURE 04/24/23 [History Last Taken 04/24/23] famotidine 20 mg tablet 20 mg PO DAILY ACID REFLUX 04/24/23 [History Last Taken 04/24/23] furosemide 40 mg tablet 20 mg PO DAILY FLUID 04/24/23 [History Last Taken 04/24/23] levothyroxine 25 mcg tablet 25 mcg PO DAILY THYROID 04/24/23 [History Last Taken 04/24/23] oxycodone 10 mg tablet 10 mg PO TID PRN BTP 04/24/23 [History Last Taken Unknown] polyethylene glycol 3350 17 gram oral powder packet (Miralax) 17 g PO QODAY 04/24/23 [History Last Taken 04/24/23] Allergy/AdvReac Type Severity Reaction Status Date / Time morphine Allergy Hives Verified 04/24/23 10:40 pravastatin [From Pravachol] Allergy Hives Verified 04/24/23 10:40 Nybdryf-PJO-WmE Reductase Allergy Hives Verified 04/24/23 10:40 Inhibitor [Dqjetkj-Tnk-Vfg Reductase Inhibitor] vancomycin Allergy NEEDS Verified 04/24/23 10:40 FOLLOW-UP zolpidem tartrate Allergy Hives Verified 04/24/23 10:40 [From Ambien] everolimus AdvReac Swelling Verified 04/24/23 10:40 gabapentin AdvReac NEEDS Verified 04/24/23 10:40 FOLLOW-UP Family History Mother Heart disease Father Heart disease Surgical History H/O shoulder surgery History of cardioversion (02/02/21) History of cataract extraction with lens replacement (~11/22/22) History of hip surgery History of liver transplant Liver transplant recipient S/P PTCA (percutaneous transluminal coronary angioplasty) Status post liver transplant (07/2017) Social History household members: spouse Smoking Status: Never smoker alcohol intake: former substance use type: does not use caffeine: No ROS Constitutional Constitutional: Reports fatigue, malaise and weakness; Denies chills or fever(s) Eyes Eyes: Denies change in vision Cardiovascular Cardiovascular: Reports dyspnea on exertion and edema; Denies chest pain, lightheadedness, orthopnea or palpitations Respiratory/Chest Respiratory/Chest: Denies cough Gastrointestinal Gastrointestinal: Denies abdominal pain Genitourinary Genitourinary: Denies dysuria Vital Signs Vital Signs Vital Signs: 04/24/23 10:38 04/24/23 10:48 04/24/23 13:30 Temperature 97.0 F L Temperature Source Temporal Pulse Rate 59 L 62 Respiratory Rate 14 14 Respiratory Pattern Normal Blood Pressure 139/67 H 138/76 H Blood Pressure Mean 91 96 Pulse Ox 99 97 Oxygen Delivery Method Room Air Room Air 04/24/23 14:50 Temperature 98 F Temperature Source Temporal Pulse Rate 53 L Respiratory Rate 15 Respiratory Pattern Blood Pressure 132/62 H Blood Pressure Mean 85 Pulse Ox 99 Oxygen Delivery Method Room Air Weight Weight: 168.736 kg Body Mass Index (BMI) 53.4 Physical Exam Const alert and oriented x3 Constitutional Narrative: Pleasant male, morbidly obese, lying comfortably in bed, conversing normally, no acute distress. General Appearance: cooperative and comfortable HEENT normocephalic, head/scalp atraumatic, hearing grossly normal bilaterally, nasal mucous membranes and turbinates normal and moist oral mucous membranes Eyes PERRL, EOMs intact bilaterally and conjunctivae normal Neck full ROM, no lymphadenopathy and supple Lymph Lymphatic: no lymphadenopathy noted Chest inspection of chest normal Resp normal respiratory effort, normal air movement, no use of accessory muscles and clear to auscultation bilaterally Cardio regular rate, regular rhythm, no murmurs and peripheral pulses 2+ throughout GI normal to inspection, nondistended, normoactive bowel sounds, soft to palpation, non-tender and non-distended Back/Spine normal ROM Extremity normal to inspection and full ROM Extremity Narrative: +3-4 pitting edema noted bilaterally in lower extremities. Skin no rashes or lesions noted Psych mental status grossly normal Results Lab / Micro Data 04/24/23 11:40 04/24/23 11:40 Labs: Laboratory Results - last 24 hr 04/24/23 11:40: WBC 7.8, RBC 2.91 L, Hgb 9.3 L, Hct 28.4 L, MCV 97.6 H, MCH 32.0, MCHC 32.7, RDW Std Deviation 55.3 H, RDW Coeff of Maciel 15.8 H, Plt Count 220, MPV 10.5, Immature Gran % (Auto) 0.300, Neut % (Auto) 74.1 H, Lymph % (Auto) 14.2 L, [place] % (Auto) 9.3, Eos % (Auto) 1.7, Baso % (Auto) 0.4, Absolute Neuts (auto) 5.8, Absolute Lymphs (auto) 1.10, Nucleated RBC % 0, Sodium 140, Potassium 4.1, Chloride 113 H, Carbon Dioxide 21.0, Anion Gap 6, BUN 31 H, Creatinine 1.95 H, Estim Creat Clear Calc 40.56, Est GFR (MDRD) Af Amer 45 L, Est GFR (MDRD) Non-Af 37 L, BUN/Creatinine Ratio 15.9, Glucose 175 H, Calcium 8.5, Magnesium 1.9, B-Natriuretic Peptide 453.3 H Radiology Impression Chest X-Ray 04/24/23 11:35 IMPRESSION: No radiographic evidence of acute cardiopulmonary disease. Electronically Signed: Ly Yeung MD at 12:10 EDT , Assessment & Plan Assessment/Plan (1) Chronic renal insufficiency: PLAN: Plan Patient is a 62 M with history of FELIPE s/p liver transplant (6 to 7 years ago), CKD stage IIIb, hypothyroidism, A-fib on Eliquis, depression and obesity who presented to the hospital ED on 04/24/2023 with worsening hypervolemia and reported 30 pound weight gain. 1. Hypervolemia Suspect secondary to under diuresis at home. Difficult to assess his degree of hypervolemia; family reports 30 pound weight gain but outside of bilateral LE edema up to the knees, patient does not appear volume overloaded. Chest x-ray is clear as noted above. Notably follows with cardiology, last office visit on 04/11/2023. Noted that echo from 10/2022 showed an EF of 65%, no other abnormalities. -Will start IV Lasix 40 mg 3 times daily for now. Check BMP daily, titrate diuretics accordingly. Low threshold to involve nephrology as noted below. 2. CKD stage IIIb - Follows with Dr. Monae with nephrology. Baseline creatinine around 1.6-2. Creatinine 1.95 on admission. Monitor BMP daily with IV diuresis as above. Low threshold to involve nephrology if needed. 3. Debility - Likely multifactorial but largely due to chronic hip and back pain in the setting of his morbid obesity. He is able to get up and walk around the home on his own, but has had some issues with steadiness with his gait. Has home health care at this time, has been working with them multiple times a week. PT/OT/CM consulted. Patient and family notably had a bad experience with a SNF, strongly prefer home with home health care. 4. Paroxysmal A-fib ? EKG on admit showed sinus rhythm with first-degree block. Continue home Eliquis, Lopressor, amiodarone. 5. History of liver transplant - Continue home tacrolimus, ursodiol, and Bactrim. 6. Chronic back and hip pain ? Continue home oxycodone 10 mg every 6 hours as needed. 7. History of gout ?Continue home allopurinol 300 mg daily. If creatinine worsens considerably, will need to dose reduce. 8. Hypothyroidism ? Continue home levothyroxine. 9. Depression ? Continue home citalopram. DVT prophylaxis: Eliquis CODE STATUS: Full code, verified Expected disposition: Home with home health care, likely 3 to 4 days Total clinical time spent by myself addressing the patient's medical issues, reviewing all the data, and collaborating with patient's care team: 55 minutes. Charges/Coding Visit Charges Inpatient E&M: 10580 Init Hosp L2
[2023-04-24] MEDS: oxyCODONE 5 MG Tablet 10 MG PO (21:36)
[2023-04-24] MEDS: Ursodiol 250 MG Tablet PO (21:36)
[2023-04-24] MEDS: 0.9% Saline Lock 10 ML Syringe IV (21:36)
[2023-04-24] MEDS: Metoprolol Tartrate 50 MG Tablet PO (21:36)
[2023-04-24] MEDS: APIXABAN 5 MG TABLET PO (21:36)
[2023-04-24] MEDS: Tacrolimus 0.5 MG Capsule PO (21:36)
--- NOTE | 2023-04-24 22:47 | NURSING ---
pt was placed in tele monitor d/t pt's concern about afib. Pt has hx of afib, asymptomatic. MD was notiifed with action, made aware that pt is afib in the monitor, HR controlled. Pt asymptomatic. MD aware of pt afib history, okay to keep pt status as standard.
[2023-04-25] VITALS (8 sets, daily range): BP systolic 105–137; BP diastolic 40–61; PULSE 59–66; RESP 16–18; TEMP 36.7–37; O2SAT 92–99; BMI 53.0
[2023-04-25] MEDS: Furosemide 40 MG/4 ML Vial IV ×3 (06:06→17:18)
[2023-04-25] MEDS: 0.9% Saline Lock 10 ML Syringe IV ×2 (06:06→22:35)
[2023-04-25] MEDS: Levothyroxine 25 MCG TABLET PO (06:06)
--- NOTE | 2023-04-25 06:29 | PN.HOSP_ITS ---
Reason for Visit Reason for Visit: Diagnoses Chronic kidney disease, unspecified (04/24/23) Subjective Subjective Patient since admission notes decent diuresis with at least 3 urine canisters full but states his legs still feel large and he does not feel back to his previous normal. From discussion he has been having several week to month histo ry of increased weight gain and from his description had worsened peripheral edema. Currently his edema is not severely pitting and he is laying completely flat in his bed and does appear comfortable. Patient denies fevers, chills, nausea, emesis, abdominal pain, chest pain or dyspnea. Objective Data Objective Data Vital Signs: Vital Signs Temp Pulse Resp BP Pulse Ox O2 Del Method 98.4 F 62 18 118/58 L 98 Room Air 04/25/23 06:01 04/25/23 06:01 04/25/23 06:01 04/25/23 06:01 04/25/23 06:01 04/25/23 06:01 Oxygen Delivery Method Room Air Weight: 369 lb 11.443 oz Body Mass Index (BMI) 53.0 Intake & Output: Intake and Output for Last 24 Hours 04/23/23 04/24/23 04/25/23 23:59 23:59 23:59 Intake Total 250 / 250 280 / 280 Output Total 2550 / 2550 1700 / 1700 Balance -2300 / -2300 -1420 / -1420 Lab / Micro Data 04/24/23 11:40 04/25/23 05:45 Labs: Laboratory Results - last 24 hr 04/24/23 11:40: WBC 7.8, RBC 2.91 L, Hgb 9.3 L, Hct 28.4 L, MCV 97.6 H, MCH 32.0, MCHC 32.7, RDW Std Deviation 55.3 H, RDW Coeff of Maciel 15.8 H, Plt Count 220, MPV 10.5, Immature Gran % (Auto) 0.300, Neut % (Auto) 74.1 H, Lymph % (Auto) 14.2 L, [place] % (Auto) 9.3, Eos % (Auto) 1.7, Baso % (Auto) 0.4, Absolute Neuts (auto) 5.8, Absolute Lymphs (auto) 1.10, Nucleated RBC % 0, Sodium 140, Potassium 4.1, Chloride 113 H, Carbon Dioxide 21.0, Anion Gap 6, BUN 31 H, Creatinine 1.95 H, Estim Creat Clear Calc 40.56, Est GFR (MDRD) Af Amer 45 L, Est GFR (MDRD) Non-Af 37 L, BUN/Creatinine Ratio 15.9, Glucose 175 H, Calcium 8.5, Magnesium 1.9, B-Natriuretic Peptide 453.3 H Radiography Diagnostic Testing: Radiology Impression Chest X-Ray 04/24/23 11:35 IMPRESSION: No radiographic evidence of acute cardiopulmonary disease. Electronically Signed: Ly Yeung MD at 12:10 EDT , Physical Exam Narrative Physical Examination: General: Awake, alert, oriented x 3 and cooperative, laying in the PCU bed, mildly fatigued but seems to be breathing with ease. Skin: Normal color, normal turgor, no icterus, no cyanosis except for mild intertrigo as well as bilateral lower extremity venous stasis skin changes. HEENT: AT/NC, EOMI, PERRLA, MMM. Lungs: Distant likely secondary to habitus, mildly diminished, greater bases, no appreciated rales, ronchi or wheezing. Heart: Regular rate and rhythm; no gallop, rub audible. Abdomen: Soft, morbidly obese, NTTP, distant BS, difficult to discern distention given habitus. Extremities: No cyanosis, no clubbing, bilateral lower extremity lymphedema with some pitting edema pedal to proximal jackson but not marked, see skin. Neurological: Patient awake, alert, oriented as noted, cognitive function intact; pupils equally reactive to light and accommodation, cranial nerves II- XII grossly normal, moving all 4 extremities, no focal deficits, strength moderately to severely global decreased suspect likely secondary to habitus and underlying comorbidities more than anything. Psychiatric: Affect appears mildly fatigued otherwise normal, no acute evidence of depressive or anxiety feelings. Assessment & Plan Assessment/Plan (1) Congestive heart failure: PLAN: Plan The patient is a 62 y/o M w/ PMHx: Morbid obesity, Chronic normocytic a nemia/AOCD, HTN, HLD, Chronic Diastolic CHF, PAF, CKD stage IIIb, FELIPE s/p liver txp, Morbid obesity, Hypothyroidism, GERD who presents to the [facility] ED on 04/24/23 with history of worsening BL LE edema, mild exertional dyspnea, weight gain of ~ 30 lb over the last 2-3 months with history of decreased lasix 40 mg->20 mg secondary to prior admission with [facility]. #1. Acute Decompensated Diastolic CHF: Work-up in the ED included T98, heart rate 53, BP 132/62, respiratory rate 15, 99% on room air, CBC with WC 7.8, hemoglobin 9.3, MCV 97.6, platelet 220 without marked shift, BMP with chloride 113, BUN/Cohen 31/1.95, glucose 175, BNP 453.3, magnesium 1.9, chest x-ray with no acute cardiopulmonary findings, EKG with sinus rhythm with bradycardia with rate 54 with no acute evidence of ischemia. In the ED patient ministered Lasix 40 mg IV x1. Patient administered IV lasix in the ED, will admit to PCU, maintain on cardiac telemetry, continue IV lasix diuresis, monitor I/Os, maintain on intake restriction, continue medical therapy, obtain TSH, magnesium level 1.9. 11/06/22 ECHO w/ grossly normal LV size, wall motion and systolic function, EF 65% thus will not repeat. Will place snug ROSANNA wraps with BL LE elevation. PT/OT/CM consulted for discharge planning. If patient continues to clinically improve would plan transition back to oral diuretic 04/26/2023 and discharged home with early close cardiac follow-up. #2. Hyperglycemia: Admission glucose 175, no diabetic history noted, possibly stress response, hemoglobin A1c obtained and noted to be 5.3%. #3. Recent Recurrent L humeral Fracture: Will continue offloading, NWB, maintain on fall and aspiration precautions, PT/OT/CM consultation for discharge planning. #4. FELIPE s/p Liver Transplant: Will continue patient home tacrolimus home re miguel, from current list not on cellcept or oral prednisone, clarifying, continue chronic renally dosed bactrim prophylaxis. #5. PAF: In the ED initial EKG with sinus rhythm; however, rhythm change on monitor and repeat EKG with rate controlled atrial fibrillation. Will continue home metoprolol, amiodarone, home chronic Eliquis regimen. #6. Chronic Kidney Disease Stage IIIb: Admission BUN/Cr 31/1.95, baseline renal function since 01/2023 1.7-2.0; however, prior to this his levels were 2-3 range, he had recent lasix decrease as noted secondary to his worsened renal function, 04/25/2023 BUN/creatinine 29/1.90, will continue to closely monitor give lasix usage as noted #1. #7. Chronic normocytic anemia/AOCD: Admission Hgb 9.3, MCV 97.6, baseline Hgb 8-9, stable, continue to trend. #8. Hypothyroidism: Continue home levothyroxine regimen, TSH/free T4 3.56/1.50. #9. Anxiety and Depression: We will continue patient on citalopram and low-dose alprazolam regimen. #10. Morbid Obesity: Weight loss and lifestyle changes encouraged. #11. GERD: Will continue home famotidine regimen. #12. Gout: Will continue home allopurinol regimen. #13. DVT Prophylaxis: Continue home eliquis regimen. #14. CODE status: Full Code status. Charges/Coding Visit Charges Inpatient E&M: 18306 Subs Hosp L2
[2023-04-25 07:42] LABS: Anion Gap 6 (5-15); BUN 29 mg/dL (7-18); BUN/Creat Ratio 15.3 RATIO (10-20); Calcium,Total 8.2 mg/dL (8.5-10.1); Chloride 111 mmol/L (98-107); EST Glomerular Filtration Rate 38 mL/min (>60); Est Glom Filt Rate - Afr Amer 46 mL/min (>60); Estimated Creatinine Clearance 41.62 ml/min; Glucose 117 mg/dL (74-106); Potassium 3.9 mmol/L (3.5-5.1); Sodium Level 140 mmol/L (136-145)
[2023-04-25] MEDS: Smz/Tmp Ds Tablet 0.5 TABLET PO (08:25)
[2023-04-25] MEDS: Tacrolimus 0.5 MG Capsule PO ×2 (08:25→22:35)
[2023-04-25] MEDS: Citalopram 10 MG Tablet PO (08:26)
[2023-04-25] MEDS: Amiodarone 200 MG Tablet PO (08:26)
[2023-04-25] MEDS: APIXABAN 5 MG TABLET PO ×2 (08:26→22:35)
[2023-04-25] MEDS: Allopurinol 300 MG Tablet PO (08:27)
[2023-04-25] MEDS: amLODIPine 5 MG Tablet PO (08:27)
[2023-04-25] MEDS: Famotidine 20 MG Tablet PO (08:27)
[2023-04-25] MEDS: Ursodiol 250 MG Tablet PO ×2 (08:27→22:35)
[2023-04-25] MEDS: Metoprolol Tartrate 50 MG Tablet PO ×2 (08:30→22:35)
[2023-04-25 08:53] LABS: Cholesterol 123 mg/dL (200); High Density Lipoprotein 39 mg/dL; Thyroid Stim Hormone (TSH) 3.56 uIU/mL (0.358-3.74); Triglycerides 56 mg/dL; Very Low Density Lipoprotein 11 mg/dL (5-40)
[2023-04-25 09:32] LABS: Hemoglobin A1c 5.3 % (3.8-5.6)
--- NOTE | 2023-04-25 11:55 | CASEMGMT ---
RN EDWARDO Face to Face with patient for initial transition planning/care coordination assessment. RN CM introduced self and role at [facility]. Patient lying in bed, alert and oriented. Patient willing to participate in assessment and is able to answer all questions appropriately. Care providers, pharmacy, and demographics verified. Patient wishes to discharge home with resumption of HHC with [facility]. Will monitor progress with therapy, may need possible SNF. Patient states he has no further needs or concerns at this time. CM to follow for discharge planning needs that may arise. PCP: [facility] Specialists: William, weapons designer; Friend, GI; Dov, solid plasterer Preferred Pharmacy: [facility] Insurance: [employer] Prescription Benefit: yes Living Will/HPOA: yes, Sheba Howard LNOK: , daughter Living Arrangements: Patient lives with in a mobile home with ramp to enter. Patient states he is independent at home but will assist patient at times. Transportation: DME/HHC: Patient states he has shower chair, raised toilet, grab bars, walker, cane, rollator, hospital bed. Patient is active with [facility]. [facility] has [facility] in the past. Disposition Plan: TBD, anticipate HHC vs SNF pending progress with therapy. Rolanda CULLEN, RN, CM
[2023-04-25] MEDS: Polyethylene Glycol 3350 17 GM PACKET PO (11:57)
--- NOTE | 2023-04-25 16:26 | CASEMGMT ---
Social Work RNCM reviewed therapy recommendations with SW; SW to follow up with patient regarding SNF recommendation. SW met with patient and introduced self and role as [facility] SW. Patient lying on hospital bed and agreeable to speak with SW. SW reviewed therapy recommendation as patient needed minimal assist of 2 and inquired about patient's interest in SNF list. Patient declined list explaining between his , daughters and [facility] he feels he will have adequate support at home. Patient briefly reviewed admissions to [place] [facility] [place] [facility], explaining he struggles to work with staff that are small as he fears falling and hurting them. SW provided emotional support and inquired about contacting patient's to further discuss d/c plan. Patient agreeable. Patient's then presents to patient's room with RNCM. SW reviewed conversation, explaining patient is declining SNF and prefers to resume [facility]. Patient praised working with staff JR, explaining the therapy provided the past couple of weeks has been better than care he has received at SNFs. Patient's agreeable to patient d/c home with [facility] and voices no concerns as she has been assisting the patient for the past seven years. RNCM to continue to follow along for D/C planning. Plan: home with [facility] ZAHRA Zavala
[2023-04-25] MEDS: oxyCODONE 5 MG Tablet 10 MG PO (22:16)
[2023-04-26 04:25] VITALS: BP 114/64; PULSE 58; RESP 18; TEMP 36.7; O2SAT 99
[2023-04-26] MEDS: oxyCODONE 5 MG Tablet 10 MG PO (04:26)
[2023-04-26 04:28] VITALS: BMI 51.7
[2023-04-26] MEDS: Levothyroxine 25 MCG TABLET PO (05:50)
--- NOTE | 2023-04-26 06:05 | PCM.PN.HOSP ---
Reason for Visit Reason for Visit: Diagnoses Heart failure, unspecified (04/24/23) Chronic kidney disease, unspecified (04/24/23) Subjective Subjective Patient with no acute events overnight per self and per nursing report. He notes not having slept well so he is tired today but reports breathing well and no significant worsened swelling able to move legs better with less edema. Patient denies fevers, chills, nausea, emesis, abdominal pain, chest pain or dyspnea. Objective Data Objective Data Vital Signs: Vital Signs Temp Pulse Resp BP Pulse Ox O2 Del Method 98.1 F 58 L 18 114/64 99 Room Air 04/26/23 04:25 04/26/23 04:25 04/26/23 04:25 04/26/23 04:25 04/26/23 04:25 04/26/23 04:25 Oxygen Delivery Method Room Air Weight: 361 lb 8.929 oz Body Mass Index (BMI) 51.7 Intake & Output: Intake and Output for Last 24 Hours 04/24/23 04/25/23 04/26/23 23:59 23:59 23:59 Intake Total 250 / 250 700 / 700 280 / 280 Output Total 2550 / 2550 3250 / 3250 650 / 650 Balance -2300 / -2300 -2550 / -2550 -370 / -370 Lab / Micro Data 04/26/23 06:02 04/26/23 06:02 Labs: Laboratory Results - last 24 hr 04/25/23 05:45: Sodium 140, Potassium 3.9, Chloride 111 H, Carbon Dioxide 23.0, Anion Gap 6, BUN 29 H, Creatinine 1.90 H, Estim Creat Clear Calc 41.62, Est GFR (MDRD) Af Amer 46 L, Est GFR (MDRD) Non-Af 38 L, BUN/Creatinine Ratio 15.3, Glucose 117 H, Hemoglobin A1c 5.3, Calcium 8.2 L, Triglycerides 56, Cholesterol 123, LDL Cholesterol 73, VLDL Cholesterol 11, HDL Cholesterol 39 L, TSH 3.56, Free T4 1.50 H Physical Exam Narrative Physical Examination: General: Awake, alert, oriented x 3 and cooperative, laying in the PCU bed, initially sleeping, awakens easily and following discussions unfortunately notes he did not sleep well, eager for discharge given he feels improved. Skin: Normal color, normal turgor, no icterus, no cyanosis except for mild intertrigo as well as bilateral lower extremity venous stasis skin changes. HEENT: AT/NC, EOMI, PERRLA, MMM. Lungs: Distant, mildly diminished, greater bases, no appreciated rales, ronchi or wheezing. Heart: Regular rate and rhythm; no gallop, rub audible. Abdomen: Soft, morbidly obese, NTTP, distant BS, difficult to discern distention given habitus. Extremities: No cyanosis, no clubbing, bilateral lower extremity lymphedema with some pitting edema pedal to proximal jackson but not marked, see skin. Neurological: Patient awake, alert, oriented as noted, cognitive function intact; pupils equally reactive to light and accommodation, cranial nerves II-XII grossly normal, moving all 4 extremities, no focal deficits, strength improved, mildly to moderately globally decreased likely more so secondary to habitus. Psychiatric: Affect appears fatigued, notes he did not rest well overnight, no acute evidence of depressive or anxiety feelings. Assessment & Plan Assessment/Plan (1) Congestive heart failure: PLAN: Plan The patient is a 62 y/o M w/ PMHx: Morbid obesity, Chronic normocytic anemia/AOCD, HTN, HLD, Chronic Diastolic CHF, PAF, CKD stage IIIb, FELIPE s/p liver txp, Morbid obesity, Hypothyroidism, GERD who presents to the [facility] ED on 04/24/23 with history of worsening BL LE edema, mild exertional dyspnea, weight gain of ~ 30 lb over the last 2-3 months with history of decreased lasix 40 mg->20 mg secondary to prior admission with AISSATOU. #1. Acute Decompensated Diastolic CHF: Work-up in the ED included T98, heart rate 53, BP 132/62, respiratory rate 15, 99% on room air, CBC with WC 7.8, hemoglobin 9.3, MCV 97.6, platelet 220 without marked shift, BMP with chloride 113, BUN/Cohen 31/1.95, glucose 175, BNP 453.3, magnesium 1.9, chest x-ray with no acute cardiopulmonary findings, EKG with sinus rhythm with bradycardia with rate 54 with no acute evidence of ischemia. In the ED patient ministered Lasix 40 mg IV x1. Patient administered IV lasix in the ED, will admit to PCU, maintain on cardiac telemetry, continue IV lasix diuresis, monitor I/Os, maintain on intake restriction, continue medical therapy, obtain TSH, magnesium level 1.9. 11/06/22 ECHO w/ grossly normal LV size, wall motion and systolic function, EF 65% thus will not repeat. Maintained on snug ROSANNA wraps with BL LE elevation. PT/OT/CM consulted for discharge planning. Admission weight 360 lb, vacillated during admission up to 369 and today repeat 361, from review of prior admissions his weight is also vacillated heavily and he assures staff that nothing was on the bed when he was weighed. Unclear if potentially need to alter IV Lasix regimen but preference not to as patient honestly has no marked severe pitting edema and has more so lymphedema, is able to lay flat and is maintained on room air and thus this likely will be able to be further worked up and treated outpatient. #2. Hyperglycemia: Admission glucose 175, no diabetic history noted, possibly stress response, hemoglobin A1c obtained and noted to be 5.3%. #3. Recent Recurrent L humeral Fracture: Will continue offloading, NWB, maintain on fall and aspiration precautions, PT/OT/CM consultation for discharge planning. #4. FELIPE s/p Liver Transplant: Will continue patient home tacrolimus home regimen, from current list not on cellcept or oral prednisone, clarifying, continue chronic renally dosed bactrim prophylaxis. #5. PAF: In the ED initial EKG with sinus rhythm; however, rhythm change on monitor and repeat EKG with rate controlled atrial fibrillation. Will continue home metoprolol, amiodarone, home chronic Eliquis regimen. #6. Chronic Kidney Disease Stage IIIb: Admission BUN/Cr 31/1.95, baseline renal function since 01/2023 1.7-2.0; however, prior to this his levels were 2-3 range, he had recent lasix decrease as noted secondary to his worsened renal function, 04/26/2023 BUN/creatinine 27/1.95, will continue to closely monitor give lasix usage as noted #1. #7. Chronic normocytic anemia/AOCD: Admission Hgb 9.3, MCV 97.6, baseline Hgb 8-9, stable, 04/26/23 Hgb 8.6, continue to trend. #8. Hypothyroidism: Continue home levothyroxine regimen, TSH/free T4 3.56/1.50. #9. Anxiety and Depression: We will continue patient on citalopram and low-dose alprazolam regimen. #10. Morbid Obesity: Weight loss and lifestyle changes encouraged. #11. GERD: Will continue home famotidine regimen. #12. Gout: Will continue home allopurinol regimen. #13. DVT Prophylaxis: Continue home eliquis regimen. #14. CODE status: Full Code status. Charges/Coding Visit Charges Inpatient E&M: 49734 Subs Hosp L2
[2023-04-26 06:23] LABS: Absolute Lymphocyte Count 1.48 X10^3/uL (0.83-4.51); Absolute Neutrophil Count 2.9 X10^3/uL (2.0-7.7); Basophil# 0.03 X10^3/uL; Basophil% 0.6 % (0-1); Eosinophils% 1.9 % (0-5); Hematocrit 26.8 % (40-54); Hemoglobin 8.6 g/dL (13.0-16.5); Lymphocyte # 1.48 X10^3/ul (0.83-4.51); Lymphocyte % 28.8 % (19-41); Mean Corp Hgb Conc 32.1 g/dL (32-36); Mean Corpuscular Volume 96.8 fL (80-94); Mean Platelet Vol. 10.7 fl (6.2-12.0); Monocyte# 0.58 X10^3/uL; Monocyte% 11.3 % (0-10); NRBC Flagged by Analyzer 0 % (0-5); Neutrophil # 2.93 X10^3/uL (2.7-7.7); Platelet Count 196 K/mm3 (150-450); RBC Distribution Width CV 15.1 % (11.6-14.6); RBC Distribution Width SD 54.1 fl (35.1-43.9); Red Blood Count 2.77 M/mm3 (4.6-6.2); White Blood Count 5.1 K/mm3 (4.4-11.0)
[2023-04-26 06:56] LABS: ALB/GLOB Ratio 0.6 RATIO (0.9-2.4); AST(SGOT) 8 U/L (15-37); Alanine Aminotransfer ALT/SGPT 11 U/L (16-61); Albumin, Serum 2.2 g/dL (3.2-5.0); Alkaline Phosphatase 121 U/L (45-117); Anion Gap 5 (5-15); BUN 27 mg/dL (7-18); BUN/Creat Ratio 13.8 RATIO (10-20); Calcium,Total 8.3 mg/dL (8.5-10.1); Chloride 108 mmol/L (98-107); Creatinine, Serum 1.95 mg/dL (0.70-1.30); EST Glomerular Filtration Rate 37 mL/min (>60); Est Glom Filt Rate - Afr Amer 45 mL/min (>60); Estimated Creatinine Clearance 40.56 ml/min; Globulin 3.9 g/dL (2.2-4.2); Glucose 114 mg/dL (74-106); Potassium 3.7 mmol/L (3.5-5.1); Protein, Total 6.1 g/dL (6.4-8.2); Sodium Level 140 mmol/L (136-145)
[2023-04-26 08:16] VITALS: O2SAT 99
--- NOTE | 2023-04-26 10:55 | DCINST_ITS ---
Discharge Instructions Diet Discharge Diet: Low fat / Low cholesterol (Recommend maximum 2,000 mL fluid per day.) Activity Discharge Activity: Return to Normal Activity May resume sexual activity in: No Restrictions Weight Bearing Status: Weight bearing as tolerated Keep extremity elevated above heart level: Legs (Recommend continued BL LE elevation above heart when in bed or seated. Avoid sleeping or staying for prolonged periods in chair. Continue snug ROSANNA wraps to legs from toe to above knee bilaterally, no skin showing, snug to assist with decreasing swelling.) Dressing / Incision Call your doctor if you observe: Fever of 101 or Higher, Numbness or Tingling, Shortness of breath, Dizziness, Increased palpitations (irregular heartbeat), Calf discomfort and Uncontrolled pain Follow Up Care Test Results: Test results from this visit will be discussed in further detail at your follow- up appointment, if applicable. Discharge Plan Admission Admit Date/Time: 04/24/23 14:24 Primary Reason for Your Visit: Acute Decompensated Diastolic CHF Attending Provider: Sofya Lugo Primary Care Provider: Lance Bose Chi Consulting Providers: Omar Santiago Instructions Patient Instructions: Understanding Lymphedema, Heart Failure Dc, Heart Failure Care Discharge Orders/Prescriptions Prescriptions: New furosemide [Lasix] 20 mg tablet 20 mg PO BID Qty: 60 0RF Continued nitroglycerin 0.4 mg tablet, sublingual 0.4 mg sublingual Q5M PRN (Reason: CHEST PAIN ) Qty: 25 1RF Rx Instructions: do not exceed 3 doses per episode metoprolol tartrate 50 mg tablet 50 mg PO BID Qty: 180 1RF sulfamethoxazole-trimethoprim 400-80 mg tablet 1 tab PO DAILY Eliquis 5 mg tablet 5 mg PO BID allopurinol 300 mg tablet 300 mg PO DAILY tacrolimus 0.5 mg capsule 0.5 mg PO 0900,2100 citalopram 10 mg tablet 10 mg PO DAILY amiodarone 200 mg tablet 200 mg PO DAILY ursodiol 300 mg capsule 300 mg PO BID polyethylene glycol 3350 [Miralax] 17 gram powder in packet 17 g PO QODAY amlodipine 5 mg tablet 5 mg PO DAILY alprazolam 0.5 mg tablet 0.5 mg PO DAILY PRN (Reason: ANXIETY ) famotidine 20 mg Tablet 20 mg PO DAILY oxycodone 10 mg tablet 10 mg PO TID PRN (Reason: BTP) levothyroxine 25 mcg Tablet 25 mcg PO DAILY prochlorperazine maleate 5 mg Tablet 10 mg PO Q6H PRN (Reason: NAUSEA/VOMITING) Discontinued furosemide 40 mg Tablet 20 mg PO DAILY Referrals / Follow Up: Lance Bose Chi, MD [Primary Care Provider] - (Follow-up in 3-5 days to review admission. Please obtain repeat basic metabolic panel at your primary care follow-up given recent increase of your lasix regimen.) Ru Thomas MD [Med Staff - Active Staff] - (Please follow-up within 1-2 weeks to review admission and assure no further lasix regimen changes are needed, please make visit with [facility]PER[facility].) Disposition Disposition (needs filled in before D/C Order can be placed): Home Health Service
--- NOTE | 2023-04-26 10:57 | PCM.DC.SUM ---
Providers Date of Admission: 04/24/23 Date of Discharge: 04/26/23 Primary Care Physician: Dr. Lance Bose MD Reason For Visit: HYPERCOLEMIA,CHRONIC KIDNEY DISEASE Diagnosis Discharge Diagnosis (1) Congestive heart failure: Status: Acute Code(s): I50.9 - Heart failure, unspecified Plan: Discharge Diagnoses: #1. Acute Decompensated Diastolic CHF #2. Hyperglycemia, likely stress response, HgBA1c 5.3%. #3. Recent Recurrent L humeral Fracture #4. FELIPE s/p Liver Transplant #5. PAF #6. Chronic Kidney Disease Stage IIIb #7. Chronic normocytic anemia/AOCD #8. Hypothyroidism #9. Anxiety and Depression #10. Morbid Obesity #11. GERD #12. Gout #13. CODE status: Full Code status. Medications at Discharge Home Medications apixaban 5 mg tablet (Eliquis) 5 mg PO BID BLOOD THINNER 07/20/22 allopurinol 300 mg tablet 300 mg PO DAILY GOUT 11/04/22 tacrolimus 0.5 mg capsule, immediate-release 0.5 mg PO 0900,2100 LIVER TRANSPLANT 11/06/22 metoprolol tartrate 50 mg tablet 50 mg PO BID BLOOD PRESSURE #180 tabs 11/27/22 nitroglycerin 0.4 mg sublingual tablet 0.4 mg sublingual Q5M PRN CHEST PAIN #25 tabs 11/27/22 citalopram 10 mg tablet 10 mg PO DAILY MOOD 02/08/23 amiodarone 200 mg tablet 200 mg PO DAILY BLOOD PRESSURE 02/14/23 ursodiol 300 mg capsule 300 mg PO BID GALLSTONES 02/14/23 prochlorperazine maleate 5 mg tablet 10 mg PO Q6H PRN NAUSEA/VOMITING 03/10/23 sulfamethoxazole 400 mg-trimethoprim 80 mg tablet 1 tab PO DAILY LIVER TRANSPLANT 04/11/23 alprazolam 0.5 mg tablet 0.5 mg PO DAILY PRN ANXIETY 04/24/23 amlodipine 5 mg tablet 5 mg PO DAILY BLOOD PRESSURE 04/24/23 famotidine 20 mg tablet 20 mg PO DAILY ACID REFLUX 04/24/23 levothyroxine 25 mcg tablet 25 mcg PO DAILY THYROID 04/24/23 oxycodone 10 mg tablet 10 mg PO TID PRN BTP 04/24/23 polyethylene glycol 3350 17 gram oral powder packet (Miralax) 17 g PO QODAY 04/24/23 furosemide 20 mg tablet (Lasix) 20 mg PO BID #60 tabs 04/26/23 Hospital Course Operations None Procedures EKG Summary of Care Provided Minutes Spent on Discharge: 35 Hospital Course: The patient is a 62 y/o M w/ PMHx: Morbid obesity, Chronic normocytic anemia/AOCD, HTN, HLD, Chronic Diastolic CHF, PAF, CKD stage IIIb, FELIPE s/p liver txp, Morbid obesity, Hypothyroidism, GERD who presented to the [facility] ED on 04/24/23 with history of worsening BL LE edema, mild exertional dyspnea, weight gain of ~ 30 lb over the last 2-3 months with history of decreased lasix 40 mg->20 mg secondary to prior admission with AISSATOU. Work-up in the ED included T98, heart rate 53, BP 132/62, respiratory rate 15, 99% on room air, CBC with WC 7.8, hemoglobin 9.3, MCV 97.6, platelet 220 without marked shift, BMP with chloride 113, BUN/Cohen 31/1.95, glucose 175, BNP 453.3, magnesium 1.9, chest x-ray with no acute cardiopulmonary findings, EKG with sinus rhythm with bradycardia with rate 54 with no acute evidence of ischemia. In the ED patient ministered Lasix 40 mg IV x1. Patient administered IV lasix in the ED, admitted to PCU, maintained on cardiac telemetry, maintained on IV lasix diuresis, monitor I/Os, TSH 3.56, magnesium level 1.9. 11/06/22 ECHO w/ grossly normal LV size, wall motion and systolic function, EF 65% thus will not repeat. Maintained on snug ROSANNA wraps with BL LE elevation. Admission weight 360 lb, vacillated during admission up to 369 and today repeat 361, from review of prior admissions his weight is also vacillated heavily and he assures staff that nothing was on the bed when he was weighed. Admission glucose 175, no diabetic history noted, possibly stress response, hemoglobin A1c obtained and noted to be 5.3%. Admission BUN/Cr 31/1.95, baseline renal function since 01/2023 1.7-2.0; however, prior to this his levels were 2-3 range, he had recent lasix decrease as noted secondary to his worsened renal function, 04/26/2023 BUN/creatinine 27/1.95, will continue to closely monitor give lasix usage. Admission Hgb 9.3, MCV 97.6, baseline Hgb 8-9, stable, 04/26/23 Hgb 8.6 Given patient maintained on room air, feels breathing has improved and LE more readily able to move, sensation less edematous patient transitioned 04/26/23 to mildly increased oral lasix regimen with close PCP/Cardiology follow-up with repeat outpatient BMP to assure renal function does not worsen. Weight / BMI Weight Weight: 361 lb 8.929 oz Body Mass Index (BMI) 51.7 ABG / Lab / Microbiology Data 04/26/23 06:02 04/26/23 06:02 Laboratory: Laboratory Results - last 24 hr 04/26/23 06:02: WBC 5.1, RBC 2.77 L, Hgb 8.6 L, Hct 26.8 L, MCV 96.8 H, MCH 31.0, MCHC 32.1, RDW Std Deviation 54.1 H, RDW Coeff of Maciel 15.1 H, Plt Count 196, MPV 10.7, Immature Gran % (Auto) 0.400, Neut % (Auto) 57.0, Lymph % (Auto) 28.8, Childress % (Auto) 11.3 H, Eos % (Auto) 1.9, Baso % (Auto) 0.6, Absolute Neuts (auto) 2.9, Absolute Lymphs (auto) 1.48, Nucleated RBC % 0, Sodium 140, Potassium 3.7, Chloride 108 H, Carbon Dioxide 27.0, Anion Gap 5, BUN 27 H, Creatinine 1.95 H, Estim Creat Clear Calc 40.56, Est GFR (MDRD) Af Amer 45 L, Est GFR (MDRD) Non-Af 37 L, BUN/Creatinine Ratio 13.8, Glucose 114 H, Calcium 8.3 L, Total Bilirubin 0.70, AST 8 L, ALT 11 L, Alkaline Phosphatase 121 H, Total Protein 6.1 L, Albumin 2.2 L, Globulin 3.9, Albumin/Globulin Ratio 0.6 L D/C Instructions Discharge Diet: Low fat / Low cholesterol (Recommend maximum 2,000 mL fluid per day.) May resume sexual activity in: No Restrictions Weight Bearing Status: Weight bearing as tolerated Keep extremity elevated above heart level: Legs (Recommend continued BL LE elevation above heart when in bed or seated. Avoid sleeping or staying for prolonged periods in chair. Continue snug ROSANNA wraps to legs from toe to above knee bilaterally, no skin showing, snug to assist with decreasing swelling.) Call your doctor if you observe: Fever of 101 or Higher, Numbness or Tingling, Shortness of breath, Dizziness, Increased palpitations (irregular heartbeat), Calf discomfort and Uncontrolled pain Meaningful Use Info Meaningful Use Diagnoses (Choose all that apply): CHF CHF ROSANNA/ARB ordered at discharge?: No Reason ROSANNA/ARB not ordered?: Worsening renal disease Documented LVEF (%): 65 Discharge Plan Admission Admit Date/Time: 04/24/23 14:24 Primary Reason for Your Visit: Acute Decompensated Diastolic CHF Attending Provider: Sofya Lugo Primary Care Provider: Lance Bose Chi Consulting Providers: Omar Santiago Instructions Patient Instructions: Understanding Lymphedema, Heart Failure Dc, Heart Failure Care Discharge Orders/Prescriptions Prescriptions: New furosemide [Lasix] 20 mg tablet 20 mg PO BID Qty: 60 0RF Continued nitroglycerin 0.4 mg tablet, sublingual 0.4 mg sublingual Q5M PRN (Reason: CHEST PAIN ) Qty: 25 1RF Rx Instructions: do not exceed 3 doses per episode metoprolol tartrate 50 mg tablet 50 mg PO BID Qty: 180 1RF sulfamethoxazole-trimethoprim 400-80 mg tablet 1 tab PO DAILY Eliquis 5 mg tablet 5 mg PO BID allopurinol 300 mg tablet 300 mg PO DAILY tacrolimus 0.5 mg capsule 0.5 mg PO 0900,2100 citalopram 10 mg tablet 10 mg PO DAILY amiodarone 200 mg tablet 200 mg PO DAILY ursodiol 300 mg capsule 300 mg PO BID polyethylene glycol 3350 [Miralax] 17 gram powder in packet 17 g PO QODAY amlodipine 5 mg tablet 5 mg PO DAILY alprazolam 0.5 mg tablet 0.5 mg PO DAILY PRN (Reason: ANXIETY ) famotidine 20 mg Tablet 20 mg PO DAILY oxycodone 10 mg tablet 10 mg PO TID PRN (Reason: BTP) levothyroxine 25 mcg Tablet 25 mcg PO DAILY prochlorperazine maleate 5 mg Tablet 10 mg PO Q6H PRN (Reason: NAUSEA/VOMITING) Discontinued furosemide 40 mg Tablet 20 mg PO DAILY Referrals / Follow Up: Ru Thomas MD [Med Staff - Active Staff] - 05/03/23 9:00 am (Please follow-up within 1-2 weeks to review admission and assure no further lasix regimen changes are needed, please make visit with SALVAGE GRINDER. With Kayla FISH.) Lance Bose Chi, MD [Primary Care Provider] - (Follow-up in 3-5 days to review admission. Please obtain repeat basic metabolic panel at your primary care follow-up given recent increase of your lasix regimen.) Disposition Disposition (needs filled in before D/C Order can be placed): Home Health Service Charges/Coding Visit Charges Inpatient E&M: 07767 Disch Hosp >30min
--- NOTE | 2023-04-26 12:00 | CASEMGMT ---
Discharge Planning Resumption of HH services referral sent to [facility] via [facility]. Vania Hill, Discharge Planning Asst.
[2023-04-26 12:03] VITALS: BP 135/62; PULSE 58; RESP 16; TEMP 37.2; O2SAT 100
[2023-04-26] MEDS: Smz/Tmp Ds Tablet 0.5 TABLET PO (12:09)
[2023-04-26 12:10] VITALS: BP 135/62; PULSE 58
[2023-04-26] MEDS: Citalopram 10 MG Tablet PO (12:10)
[2023-04-26] MEDS: APIXABAN 5 MG TABLET PO (12:10)
[2023-04-26] MEDS: Metoprolol Tartrate 50 MG Tablet PO (12:10)
[2023-04-26] MEDS: Amiodarone 200 MG Tablet PO (12:10)
[2023-04-26] MEDS: Tacrolimus 0.5 MG Capsule PO (12:10)
[2023-04-26] MEDS: amLODIPine 5 MG Tablet PO (12:11)
[2023-04-26] MEDS: Famotidine 20 MG Tablet PO (12:11)
[2023-04-26] MEDS: Allopurinol 300 MG Tablet PO (12:12)
[2023-04-26] MEDS: Ursodiol 250 MG Tablet PO (12:12)
[2023-04-26 12:28] VITALS: O2SAT 90; O2SAT 98
--- NOTE | 2023-04-26 12:49 | CASEMGMT ---
Patient has order for discharge. RN CM updated [facility] of discharge. RN CM in to discuss needs with patient. Patient and updated that [facility] will contact with resumption of care. Patient and had no further questions, needs, or concerns.
== END 2023-04-26 15:46 | disposition home health service (06) | DRG 291 ==
LOC: ED 14:41 → PCU 04-25 06:29
PROVIDERS: Admitting Provider Hospitalist; Emergency Provider Emergency Medicine; PCP Family Medicine Geriatric Medicine; Referring Provider Family Medicine; Visit Provider Family Medicine
DX: I13.0 Hypertensive heart and chronic kidney disease with heart failure and stage 1 through stage 4 chronic kidney disease, or unspecified chronic kidney disease (principal); I50.33 Acute on chronic diastolic (congestive) heart failure; Z68.43 Body mass index [BMI] 50.0-59.9, adult; Z94.4 Liver transplant status; D63.8 Anemia in other chronic diseases classified elsewhere; Z79.01 Long term (current) use of anticoagulants; N18.32 Chronic kidney disease, stage 3b; E66.01 Morbid (severe) obesity due to excess calories; I48.0 Paroxysmal atrial fibrillation; E03.9 Hypothyroidism, unspecified; F32.A Depression, unspecified; I25.10 Atherosclerotic heart disease of native coronary artery without angina pectoris; M10.9 Gout, unspecified; K21.9 Gastro-esophageal reflux disease without esophagitis; E78.5 Hyperlipidemia, unspecified; F41.9 Anxiety disorder, unspecified; W19.XXXD Unspecified fall, subsequent encounter; S42.302D Unspecified fracture of shaft of humerus, left arm, subsequent encounter for fracture with routine healing; G89.29 Other chronic pain; G47.00 Insomnia, unspecified; R73.9 Hyperglycemia, unspecified; Z79.890 Hormone replacement therapy; Z79.899 Other long term (current) drug therapy
CPT/HCPCS: 36415; 71045; 80048; 80053; 80061; 83036; 83735; 83880; 84439; 84443; 85025; 93005; 97162; 97166; 97802; 99285; A4216; J1940

== ENCOUNTER → 2023-05-02 | Outpatient (CLI) | payer MEDICARE, SELFPAY ==
[2023-05-02 12:18] LABS: Absolute Lymphocyte Count 1.78 X10^3/uL (0.83-4.51); Absolute Neutrophil Count 4.4 X10^3/uL (2.0-7.7); Basophil# 0.03 X10^3/uL; Basophil% 0.4 % (0-1); Eosinophil# 0.29 X10^3/uL; Hematocrit 29.8 % (40-54); Hemoglobin 9.5 g/dL (13.0-16.5); Lymphocyte # 1.78 X10^3/ul (0.83-4.51); Lymphocyte % 24.8 % (19-41); Mean Corp Hgb Conc 31.9 g/dL (32-36); Mean Corpuscular Hgb 31.3 pg (27.0-32.0); Monocyte# 0.69 X10^3/uL; Monocyte% 9.6 % (0-10); NRBC Flagged by Analyzer 0 % (0-5); Neutrophil # 4.38 X10^3/uL (2.7-7.7); Neutrophil % 61.1 % (47-70); Platelet Count 235 K/mm3 (150-450); RBC Distribution Width CV 15.1 % (11.6-14.6); RBC Distribution Width SD 54.2 fl (35.1-43.9); Red Blood Count 3.04 M/mm3 (4.6-6.2); White Blood Count 7.2 K/mm3 (4.4-11.0)
[2023-05-02 12:59] LABS: PTHIN 80.4 pg/mL (18.4-80.1)
[2023-05-02 13:11] LABS: Albumin, Serum 2.4 g/dL (3.2-5.0); BUN 32 mg/dL (7-18); Calcium,Total 8.9 mg/dL (8.5-10.1); Chloride 107 mmol/L (98-107); EST Glomerular Filtration Rate 36 mL/min (>60); Est Glom Filt Rate - Afr Amer 44 mL/min (>60); Ferritin 52 ng/mL (26-388); Glucose 113 mg/dL (74-106); Iron 32 ug/dL (65-175); Iron Binding Capacity,Total 257 ug/dL (250-450); PERCENT IRON SATURATION 12.5 % (15.0-55.0); Phosphorus 2.9 mg/dL (2.5-4.9); Potassium 4.2 mmol/L (3.5-5.1); Sodium Level 139 mmol/L (136-145)
== END | disposition home or self-care (01) ==
LOC: LAB.FUTURE 10:40 → POLAB3 11:00
PROVIDERS: PCP Family Medicine Geriatric Medicine; Visit Provider Internal Medicine Nephrology
DX: E11.65 Type 2 diabetes mellitus with hyperglycemia (principal); I10 Essential (primary) hypertension
CPT/HCPCS: 36415; 80069; 82728; 82746; 83540; 83550; 83970; 85025; 85027

== ENCOUNTER → 2023-05-13 | Outpatient (CLI) | payer MEDICARE, SELFPAY ==
[2023-05-13 14:59] LABS: Absolute Lymphocyte Count 1.79 X10^3/uL (0.83-4.51); Absolute Neutrophil Count 3.5 X10^3/uL (2.0-7.7); Basophil# 0.03 X10^3/uL; Basophil% 0.5 % (0-1); Eosinophil# 0.17 X10^3/uL; Eosinophils% 2.7 % (0-5); Hematocrit 31.2 % (40-54); Hemoglobin 9.5 g/dL (13.0-16.5); Lymphocyte # 1.79 X10^3/ul (0.83-4.51); Lymphocyte % 28.6 % (19-41); Mean Corp Hgb Conc 30.4 g/dL (32-36); Mean Corpuscular Hgb 29.5 pg (27.0-32.0); Mean Corpuscular Volume 96.9 fL (80-94); Mean Platelet Vol. 10.4 fl (6.2-12.0); Monocyte# 0.72 X10^3/uL; Monocyte% 11.5 % (0-10); NRBC Flagged by Analyzer 0 % (0-5); Neutrophil # 3.52 X10^3/uL (2.7-7.7); Neutrophil % 56.2 % (47-70); Platelet Count 343 K/mm3 (150-450); RBC Distribution Width CV 14.7 % (11.6-14.6); RBC Distribution Width SD 53.1 fl (35.1-43.9); Red Blood Count 3.22 M/mm3 (4.6-6.2); White Blood Count 6.3 K/mm3 (4.4-11.0)
[2023-05-13 15:14] LABS: ALB/GLOB Ratio 0.5 RATIO (0.9-2.4); AST(SGOT) 12 U/L (15-37); Alanine Aminotransfer ALT/SGPT 11 U/L (16-61); Albumin, Serum 2.5 g/dL (3.2-5.0); Alkaline Phosphatase 152 U/L (45-117); Anion Gap 7 (5-15); BUN 35 mg/dL (7-18); BUN/Creat Ratio 13.4 RATIO (10-20); Calcium,Total 8.9 mg/dL (8.5-10.1); Chloride 104 mmol/L (98-107); Creatinine, Serum 2.62 mg/dL (0.70-1.30); EST Glomerular Filtration Rate 26 mL/min (>60); Est Glom Filt Rate - Afr Amer 32 mL/min (>60); Globulin 4.6 g/dL (2.2-4.2); Glucose 141 mg/dL (74-106); Potassium 4.3 mmol/L (3.5-5.1); Protein, Total 7.1 g/dL (6.4-8.2); Sodium Level 136 mmol/L (136-145)
== END | disposition home or self-care (01) ==
LOC: POLAB3 14:35
PROVIDERS: PCP Family Medicine Geriatric Medicine; Visit Provider Family Medicine Geriatric Medicine
DX: I10 Essential (primary) hypertension (principal); K76.82 Hepatic encephalopathy; Z94.4 Liver transplant status
CPT/HCPCS: 36415; 80053; 82140; 85025

== ENCOUNTER 2023-05-14 09:17 | Inpatient (IN) | payer MEDICARE, SELFPAY ==
[2023-05-14] VITALS (8 sets, daily range): BP systolic 82–146; BP diastolic 40–133; PULSE 52–96; RESP 12–20; TEMP 36.4–36.9; O2SAT 94–100; BMI 53.4
--- NOTE | 2023-05-14 09:33 | EX.ED.DYSGE1 ---
HPI History of Present Illness Chief Complaint: Abn Labs Detail of Chief Complaint: Elevated ammonia level Informant: patient Onset/Context/Timing Onset: Days (4) Context: Gradual Onset Timing: Continuous Quality: Confusion Location: Generalized Worsened by: Nothing Relieved by: Nothing Narrative Narrative: Patient presents with an elevated ammonia level that was noticed yesterday. Family states patient has been having some increasing confusion and sleeping more over the past 4 days. Patient has a history of hepatic encephalopathy and has had a liver transplant. Patient admits to some subjective chills but denies any fevers. Patient admits to nausea but denies any vomiting. Patient denies any abdominal pain. Family also states that his left upper extremity and both lower extremities have gotten more swollen over the past few days. Family states the patient was seen by his primary care physician yesterday who did labs. Family states they were contacted this morning about his ammonia level being elevated. [facility] Medical History (HFpEF) heart failure with preserved ejection fraction Acidosis, lactic Acute hypotension Adult failure to thrive Anemia in chronic illness Anemia of chronic disease Anxiety Ascites Atherosclerotic heart disease of [place] coronary artery without angina pectoris Atrial fibrillation Atrial fibrillation Atrial flutter with rapid ventricular response (02/02/21) BMI 50.0-59.9, adult CAD (coronary artery disease) Cellulitis Chest pain Chronic anticoagulation Chronic diastolic congestive heart failure Chronic kidney disease Chronic kidney disease, stage 3a Chronic kidney disease, stage 3b Chronic renal failure, stage 3 (moderate) Cirrhosis Closed left humeral fracture Congestive heart failure Coronary artery disease Coronary artery disease Debility Debility Elevated troponin Gout Gout History of non-ST elevation myocardial infarction (NSTEMI) (12/29/20) Hypertension Insomnia Kidney disease Lactic acidosis Lumbar radiculopathy Malaise and fatigue Morbid obesity Morbid obesity Multiple falls FELIPE (nonalcoholic steatohepatitis) FELIPE (nonalcoholic steatohepatitis) Nonsustained paroxysmal ventricular tachycardia (12/2020) Osteoarthritis of ankle and foot PAF (paroxysmal atrial fibrillation) Paroxysmal atrial fibrillation Periprosthetic fracture around internal prosthetic joint Right hip pain Seborrhea of face SOB (shortness of breath) Unable to ambulate Venous insufficiency Vertigo, central Weakness Home Medications apixaban 5 mg tablet (Eliquis) 5 mg PO BID BLOOD THINNER 07/20/22 [History Last Taken 04/24/23] allopurinol 300 mg tablet 300 mg PO DAILY GOUT 11/04/22 [History Last Taken 04/24/23] tacrolimus 0.5 mg capsule, immediate-release 0.5 mg PO 0900,2100 LIVER TRANSPLANT 11/06/22 [History Last Taken 04/24/23] metoprolol tartrate 50 mg tablet 50 mg PO BID BLOOD PRESSURE #180 tabs 11/27/22 [Rx Last Taken 04/24/23] nitroglycerin 0.4 mg sublingual tablet 0.4 mg sublingual Q5M PRN CHEST PAIN #25 tabs 11/27/22 [Rx Last Taken Unknown] citalopram 10 mg tablet 10 mg PO DAILY MOOD 02/08/23 [History Last Taken 04/24/23] amiodarone 200 mg tablet 200 mg PO DAILY BLOOD PRESSURE 02/14/23 [History Last Taken 04/24/23] ursodiol 300 mg capsule 300 mg PO BID GALLSTONES 02/14/23 [History Last Taken 04/24/23] prochlorperazine maleate 5 mg tablet 5 mg PO Q6H PRN NAUSEA/VOMITING 03/10/23 [History Last Taken 03/09/23] sulfamethoxazole 400 mg-trimethoprim 80 mg tablet 1 tab PO DAILY LIVER TRANSPLANT 04/11/23 [History Last Taken 04/24/23] amlodipine 5 mg tablet 5 mg PO DAILY BLOOD PRESSURE 04/24/23 [History Last Taken 04/24/23] famotidine 20 mg tablet 20 mg PO Q12H ACID REFLUX 04/24/23 [History Last Taken 04/24/23] levothyroxine 25 mcg tablet 25 mcg PO DAILY THYROID 04/24/23 [History Last Taken 04/24/23] oxycodone 10 mg tablet 10 mg PO TID PRN BTP 04/24/23 [History Last Taken Unknown] polyethylene glycol 3350 17 gram oral powder packet (Miralax) 17 g PO .ONCE PRN constipation 04/24/23 [History Last Taken 04/24/23] furosemide 20 mg tablet (Lasix) 40 mg PO BID 05/14/23 [History Last Taken Unknown] polysaccharide iron complex 150 mg iron capsule (Ferrex) 150 mg PO DAILY 05/14/23 [History Last Taken Unknown] sacubitril 24 mg-valsartan 26 mg tablet (Entresto) 1 tab PO BID 05/14/23 [History Last Taken Unknown] Allergy/AdvReac Type Severity Reaction Status Date / Time morphine Allergy Hives Verified 05/14/23 09:18 pravastatin [From Pravachol] Allergy Hives Verified 05/14/23 09:18 Dnurnqu-Gel-Tqp Reductase Allergy Hives Verified 05/14/23 09:18 Inhibitor vancomycin Allergy NEEDS Verified 05/14/23 09:18 FOLLOW-UP zolpidem tartrate Allergy Hives Verified 05/14/23 09:18 [From Ambien] everolimus AdvReac Swelling Verified 05/14/23 09:18 gabapentin AdvReac NEEDS Verified 05/14/23 09:18 FOLLOW-UP Family History Mother Heart disease Father Heart disease Surgical History H/O shoulder surgery History of cardioversion (02/02/21) History of cataract extraction with lens replacement (~11/22/22) History of hip surgery History of liver transplant Liver transplant recipient S/P PTCA (percutaneous transluminal coronary angioplasty) Status post liver transplant (07/2017) Social History household members: spouse Smoking Status: Never smoker alcohol intake: former substance use type: does not use caffeine: No ROS ROS ED Constitutional Constitutional ED: Reports chills and subjective; Denies fever(s) Eyes Eyes: Denies blurry vision or change in vision ENT ENT ED: Denies rhinorrhea or sore throat Cardiovascular Cardiovascular: Denies chest pain or palpitations Respiratory/Chest Respiratory/Chest: Reports dyspnea on exertion; Denies cough or dyspnea Gastrointestinal Gastrointestinal: Reports nausea; Denies vomiting Genitourinary Genitourinary ED: Denies dysuria or hematuria Musculoskeletal Musculoskeletal: Denies back pain or neck pain Integumentary Reports rash; Denies abscess Neurologic Neurologic: Denies headache(s) or weakness Allergic/Immunologic Allergic/Immunologic ED: Denies mouth swelling or urticaria EXAM Physical Exam Const Vital Signs: 05/14/23 09:19 05/14/23 10:06 05/14/23 11:21 Temperature 97.6 F L Temperature Source Temporal Pulse Rate 57 L 52 L Respiratory Rate 14 20 H Respiratory Effort Normal Non-Labored Respiratory Pattern Normal Blood Pressure 146/133 H 102/44 L Blood Pressure Mean 137 63 Pulse Ox 100 96 Oxygen Delivery Method Room Air Room Air Positive well nourished, well developed and obese General Appearance ED: well developed and NAD Nutritional Appearance: obese HEENT Reports moist mucous membranes Neck supple and no JVD Resp normal respiratory effort and clear to auscultation bilaterally GI non-tender and non-distended Palpation: soft Extremity General Extremety ED: Yes edema; Negative for tenderness General Extremity: edema Neuro oriented x3, CN's II-XII intact bilaterally and no sensory deficits noted Sensorium / Orientation: alert Motor Exam: strength 5/5 throughout Skin Skin Narrative: There is some erythema and warmth over the anterior lower legs bilaterally. There is also some edema, mild erythema, and warmth over the left upper extremity. Radial and pedal pulses are equal bilaterally. MDM MDM MDM Narrative Medical decision making narrative: Differential diagnosis includes hepatic encephalopathy, acute kidney injury, chronic kidney disease, cellulitis, sepsis, cardiac dysrhythmia, and cardiac ischemia. EKG will be obtained to assess for cardiac dysrhythmia and cardiac ischemia. CBC will be obtained to assess for leukocytosis and anemia. Comprehensive metabolic profile will be obtained to assess for hepatic function, renal function, and electrolyte abnormality. Serum ammonia level will be obtained to assess for hepatic encephalopathy. Blood cultures will be obtained to assess for sepsis. Lab Data Attestation: I reviewed the patient's lab results. Lab results narrative: CBC was reviewed. Hemoglobin was 8.8 and hematocrit was 27.2. Platelets are normal. Comprehensive metabolic profile was reviewed. BUN was 37 and creatinine was 2.75. This is consistent with prior results. Ammonia level was reviewed and was elevated at 128. Lipase was reviewed and was normal at 12. Labs: Laboratory Results - last 24 hr 05/14/23 10:10 WBC 5.6 RBC 2.82 L Hgb 8.8 L Hct 27.2 L MCV 96.5 H MCH 31.2 MCHC 32.4 D RDW Std Deviation 52.6 H RDW Coeff of Maciel 14.7 H Plt Count 274 MPV 10.2 Immature Gran % (Auto) 0.200 Neut % (Auto) 58.8 Lymph % (Auto) 23.8 [place] % (Auto) 12.3 H Eos % (Auto) 4.0 Baso % (Auto) 0.9 Absolute Neuts (auto) 3.3 Absolute Lymphs (auto) 1.32 Nucleated RBC % 0 Sodium 136 Potassium 4.5 Chloride 106 Carbon Dioxide 26.0 Anion Gap 4 L BUN 37 H Creatinine 2.75 H Estim Creat Clear Calc 28.76 Est GFR (MDRD) Af Amer 30 L Est GFR (MDRD) Non-Af 25 L BUN/Creatinine Ratio 13.5 Glucose 132 H Calcium 8.6 Total Bilirubin 0.40 AST 9 L ALT 10 L Alkaline Phosphatase 136 H Ammonia 128.0 H Total Protein 6.3 L Albumin 2.2 L Globulin 4.1 Albumin/Globulin Ratio 0.5 L Lipase 12 L Treatment and Re-Evaluation :: Patient was given a dose of lactulose here. Patient and family were advised of the findings. Case was discussed with the hospitalist. He will admit the patient to his service. Patient and family understood and were agreeable with the plan. All questions were answered. Discharge Plan Triage Chief Complaint: Abn Labs ED Provider: Claudio Phipps Dx/Rx/DC Orders Clinical Impression: Morbid obesity, Hepatic encephalopathy, Liver transplant recipient Prescriptions: No Action nitroglycerin 0.4 mg tablet, sublingual 0.4 mg sublingual Q5M PRN (Reason: CHEST PAIN ) Qty: 25 1RF Rx Instructions: do not exceed 3 doses per episode metoprolol tartrate 50 mg tablet 50 mg PO BID Qty: 180 1RF sulfamethoxazole-trimethoprim 400-80 mg tablet 1 tab PO DAILY Eliquis 5 mg tablet 5 mg PO BID allopurinol 300 mg tablet 300 mg PO DAILY tacrolimus 0.5 mg capsule 0.5 mg PO 0900,2100 citalopram 10 mg tablet 10 mg PO DAILY amiodarone 200 mg tablet 200 mg PO DAILY ursodiol 300 mg capsule 300 mg PO BID polyethylene glycol 3350 [Miralax] 17 gram powder in packet 17 g PO .ONCE PRN (Reason: constipation) amlodipine 5 mg tablet 5 mg PO DAILY famotidine 20 mg Tablet 20 mg PO Q12H oxycodone 10 mg tablet 10 mg PO TID PRN (Reason: BTP) levothyroxine 25 mcg Tablet 25 mcg PO DAILY prochlorperazine maleate 5 mg Tablet 5 mg PO Q6H PRN (Reason: NAUSEA/VOMITING) polysaccharide iron complex [Ferrex 150] 150 mg iron capsule 150 mg PO DAILY Entresto 24-26 mg tablet 1 tab PO BID furosemide [Lasix] 20 mg tablet 40 mg PO BID Primary Care Provider: Lance Bose Chi Referrals: Lance Bose Chi, MD [Primary Care Provider] - Disposition Disposition: Acute Care Hospital [facility]
[2023-05-14 10:24] LABS: Absolute Lymphocyte Count 1.32 X10^3/uL (0.83-4.51); Absolute Neutrophil Count 3.3 X10^3/uL (2.0-7.7); Basophil# 0.05 X10^3/uL; Basophil% 0.9 % (0-1); Eosinophil# 0.22 X10^3/uL; Hematocrit 27.2 % (40-54); Hemoglobin 8.8 g/dL (13.0-16.5); Lymphocyte # 1.32 X10^3/ul (0.83-4.51); Lymphocyte % 23.8 % (19-41); Mean Corp Hgb Conc 32.4 g/dL (32-36); Mean Corpuscular Hgb 31.2 pg (27.0-32.0); Mean Corpuscular Volume 96.5 fL (80-94); Mean Platelet Vol. 10.2 fl (6.2-12.0); Monocyte# 0.68 X10^3/uL; Monocyte% 12.3 % (0-10); NRBC Flagged by Analyzer 0 % (0-5); Neutrophil # 3.27 X10^3/uL (2.7-7.7); Neutrophil % 58.8 % (47-70); Platelet Count 274 K/mm3 (150-450); RBC Distribution Width CV 14.7 % (11.6-14.6); RBC Distribution Width SD 52.6 fl (35.1-43.9); Red Blood Count 2.82 M/mm3 (4.6-6.2); White Blood Count 5.6 K/mm3 (4.4-11.0)
[2023-05-14 10:47] LABS: ALB/GLOB Ratio 0.5 RATIO (0.9-2.4); AST(SGOT) 9 U/L (15-37); Alanine Aminotransfer ALT/SGPT 10 U/L (16-61); Albumin, Serum 2.2 g/dL (3.2-5.0); Alkaline Phosphatase 136 U/L (45-117); Anion Gap 4 (5-15); BUN 37 mg/dL (7-18); BUN/Creat Ratio 13.5 RATIO (10-20); Calcium,Total 8.6 mg/dL (8.5-10.1); Chloride 106 mmol/L (98-107); Creatinine, Serum 2.75 mg/dL (0.70-1.30); EST Glomerular Filtration Rate 25 mL/min (>60); Est Glom Filt Rate - Afr Amer 30 mL/min (>60); Estimated Creatinine Clearance 28.76 ml/min; Globulin 4.1 g/dL (2.2-4.2); Glucose 132 mg/dL (74-106); Lipase 12 U/L (13-75); Potassium 4.5 mmol/L (3.5-5.1); Protein, Total 6.3 g/dL (6.4-8.2); Sodium Level 136 mmol/L (136-145)
--- NOTE | 2023-05-14 11:34 | NURSING ---
DR ROWDY HUYNH
--- NOTE | 2023-05-14 11:49 | NURSING ---
MED SURG [facility]OPPERI HEPATIC ENCEPHALOPATHY
[2023-05-14] MEDS: Lactulose 20 GM/30 ML UDC PO ×3 (11:51→21:38)
[2023-05-14] MEDS: 0.9% Normal Saline (1000mL) 1,000 ML 1000 ML IV (12:08)
--- NOTE | 2023-05-14 12:28 | ED.RN ---
THIS RN ASSESSED PT BP. BP READINGS FOLLOWS: 77/41, 85/40, 74/65, 89/55. PT BLOOD PRESSURE CUFF CHANGED, POSITION OF BED CHANGED. FLUIDS HUNG. CHARGE NURSE NOTIFIED. DR. HUYNH AWARE AND DR. RENO NOTIFIED.
[2023-05-14 14:46] LABS: International Normalized Ratio 1.6
--- NOTE | 2023-05-14 15:38 | HP.PCM.HOS_ITS ---
HPI - General General Date of Admission: 05/14/23 Date of Service: 05/14/23 Chief Complaint: confusion HPI Narrative ESTEFANIA MILLER, is a 62 M who presents with increased confusion over the past few weeks. Patient has been off over the past few weeks and even hallucinating at times but today was noted to be much more confused. Family was alarmed and brought the patient to the emergency room for evaluation. Patient's ammonia level was 128. Patient received lactulose. Since resuming lactulose, the patient has been improved. Also, patient has been having increasing edema in his lower extremities as well as his left upper extremity. Patient had broken his left upper extremity after a fall and has had been casted and then had a brace. According to family, the swelling got worse. Patient blood pressure was low in the emergency room. He did receive 1 L of IV fluids in the emergency room. Patient had been on lactulose in the past as patient had primarily been on lactulose since his liver transplant 2016. Had been transitioned over to rifaximin but the rifaximin was discontinued when there is noted that his kidney function was getting worse. However, he was not started on on any lactulose. [facility] Medical History (Updated 05/14/23 @ 15:[address] Claudio Rice, DO) (HFpEF) heart failure with preserved ejection fraction Acidosis, lactic Acute hypotension Adult failure to thrive Anemia in chronic illness Anemia of chronic disease Anxiety Ascites Atherosclerotic heart disease of [place] coronary artery without angina pectoris Atrial fibrillation Atrial fibrillation Atrial flutter with rapid ventricular response (02/02/21) BMI 50.0-59.9, adult CAD (coronary artery disease) Cellulitis Chest pain Chronic anticoagulation Chronic diastolic congestive heart failure Chronic kidney disease Chronic kidney disease, stage 3a Chronic kidney disease, stage 3b Chronic renal failure, stage 3 (moderate) Cirrhosis Closed left humeral fracture Congestive heart failure Coronary artery disease Coronary artery disease Debility Debility Elevated troponin Gout Gout History of non-ST elevation myocardial infarction (NSTEMI) (12/29/20) Hypertension Insomnia Kidney disease Lactic acidosis Lumbar radiculopathy Malaise and fatigue Morbid obesity Morbid obesity Multiple falls FELIPE (nonalcoholic steatohepatitis) FELIPE (nonalcoholic steatohepatitis) Nonsustained paroxysmal ventricular tachycardia (12/2020) Osteoarthritis of ankle and foot PAF (paroxysmal atrial fibrillation) Paroxysmal atrial fibrillation Periprosthetic fracture around internal prosthetic joint Right hip pain Seborrhea of face SOB (shortness of breath) Unable to ambulate Venous insufficiency Vertigo, central Weakness Home Medications apixaban 5 mg tablet (Eliquis) 5 mg PO BID BLOOD THINNER 07/20/22 [History Last Taken 05/14/23 09:00 5 mg] allopurinol 300 mg tablet 300 mg PO DAILY GOUT 11/04/22 [History Last Taken 05/14/23 09:00 300 mg] tacrolimus 0.5 mg capsule, immediate-release 0.5 mg PO 09,2100 LIVER TRANSPLANT 11/06/22 [History Last Taken 05/14/23 09:00 0.5 mg] metoprolol tartrate 50 mg tablet 50 mg PO BID BLOOD PRESSURE #180 tabs 11/27/22 [Rx Last Taken 05/14/23 09:00 50 mg] nitroglycerin 0.4 mg sublingual tablet 0.4 mg sublingual Q5M PRN CHEST PAIN #25 tabs 11/27/22 [Rx Last Taken Unknown] citalopram 10 mg tablet 10 mg PO DAILY MOOD 02/08/23 [History Last Taken 05/14/23 09:00 10 mg] amiodarone 200 mg tablet 200 mg PO DAILY BLOOD PRESSURE 02/14/23 [History Last Taken 05/14/23 09:00 200 mg] ursodiol 300 mg capsule 300 mg PO BID GALLSTONES 02/14/23 [History Last Taken 05/14/23 09:00 300 mg] prochlorperazine maleate 5 mg tablet 5 mg PO Q6H PRN NAUSEA/VOMITING 03/10/23 [History Last Taken 05/12/23 09:00 5 mg] sulfamethoxazole 400 mg-trimethoprim 80 mg tablet 1 tab PO DAILY LIVER TRANSPLANT 04/11/23 [History Last Taken 05/14/23 09:00 1 TAB] amlodipine 5 mg tablet 5 mg PO DAILY BLOOD PRESSURE 04/24/23 [History Last Taken 05/13/23 09:00 5 mg] famotidine 20 mg tablet 20 mg PO Q12H ACID REFLUX 04/24/23 [History Last Taken 05/13/23 09:00 20 mg] levothyroxine 25 mcg tablet 25 mcg PO DAILY THYROID 04/24/23 [History Last Taken 05/14/23 06:00 25 mcg] oxycodone 10 mg tablet 10 mg PO TID PRN BTP 04/24/23 [History Last Taken 3 09:00 10 mg] polyethylene glycol 3350 17 gram oral powder packet (Miralax) 17 g PO .ONCE PRN constipation 04/24/23 [History Last Taken 05/11/23 21:00 17 g] furosemide 20 mg tablet (Lasix) 40 mg PO BID diuretic 05/14/23 [History Last Taken 05/14/23 09:00 40 mg] polysaccharide iron complex 150 mg iron capsule (Ferrex) 150 mg PO DAILY supplment 05/14/23 [History Last Taken 05/13/23 21:00 150 mg] sacubitril 24 mg-valsartan 26 mg tablet (Entresto) 1 tab PO BID heart 05/14/23 [History Last Taken 05/14/23 09:00 1 TAB] Allergy/AdvReac Type Severity Reaction Status Date / Time morphine Allergy Hives Verified 05/14/23 09:18 pravastatin [From Pravachol] Allergy Hives Verified 05/14/23 09:18 [id number]-[id number] Reductase Allergy Hives Verified 05/14/23 09:18 Inhibitor [Uvgzvxk-Pab-Nvq Reductase Inhibitor] vancomycin Allergy NEEDS Verified 05/14/23 09:18 FOLLOW-UP zolpidem tartrate Allergy Hives Verified 05/14/23 09:18 [From Ambien] everolimus AdvReac Swelling Verified 05/14/23 09:18 gabapentin AdvReac NEEDS Verified 05/14/23 09:18 FOLLOW-UP Family History Mother Heart disease Father Heart disease Surgical History H/O shoulder surgery History of cardioversion (02/02/21) History of cataract extraction with lens replacement (~11/22/22) History of hip surgery History of liver transplant Liver transplant recipient S/P PTCA (percutaneous transluminal coronary angioplasty) Status post liver transplant (07/2017) Social History household members: spouse Smoking Status: Never smoker alcohol intake: former substance use type: does not use caffeine: No ROS ROS Narrative Decreased urine output despite diuretics. All review of systems were negative except as mentioned above in the history of present illness and the other review of systems. Vital Signs Vital Signs Vital Signs: 05/14/23 09:19 05/14/23 10:06 05/14/23 11:21 Temperature 36.4 C L Temperature Source Temporal Pulse Rate 57 L 52 L Respiratory Rate 14 20 H Respiratory Effort Normal Non-Labored Respiratory Pattern Normal Blood Pressure 146/133 H 102/44 L Blood Pressure Mean 137 63 Blood Pressure Source Blood Pressure Position Blood Pressure Location Pulse Ox 100 96 Oxygen Delivery Method Room Air Room Air 05/14/23 12:08 05/14/23 12:30 05/14/23 12:56 Temperature 36.7 C Temperature Source Oral Pulse Rate 77 69 Respiratory Rate 15 12 Respiratory Effort Respiratory Pattern Blood Pressure 82/46 L 89/55 L 90/57 L Blood Pressure Mean 58 66 68 Blood Pressure Source Blood Pressure Position Blood Pressure Location Pulse Ox 98 96 Oxygen Delivery Method Room Air Room Air Room Air 05/14/23 13:44 Temperature 36.9 C Temperature Source Temporal Pulse Rate 96 Respiratory Rate 16 Respiratory Effort Respiratory Pattern Blood Pressure 94/45 L Blood Pressure Mean 61 Blood Pressure Source Monitor Blood Pressure Position Semi-Fowlers Blood Pressure Location Right Forearm Pulse Ox 94 Oxygen Delivery Method Room Air Weight Weight: 169.009 kg Body Mass Index (BMI) 53.4 Physical Exam Const alert and no apparent distress HEENT normocephalic and head/scalp atraumatic Resp normal respiratory effort, no retractions, no use of accessory muscles and clear to auscultation bilaterally Cardio regular rate, regular rhythm, S1 normal heart sound and S2 normal heart sound GI normal to inspection, nondistended, normoactive bowel sounds, soft to palpation, non-tender and non-distended GI Narrative: Midline healed upper abdominal scar. Extremity Extremity Narrative: Extensive anasarca with lymphedematous changes of bilateral lower extremities as well as left upper extremity. Skin Skin Narrative: Lymphedematous changes to extremities but no evidence of any cellulitis. Neuro moves all extremities Sensorium / Orientation: awake and alert Psych affect normal Results Lab / Micro Data Attestation: I reviewed the patient's lab results. 05/14/23 10:10 05/14/23 10:10 Labs: Laboratory Results - last 24 hr 05/14/23 10:10: WBC 5.6, RBC 2.82 L, Hgb 8.8 L, Hct 27.2 L, MCV 96.5 H, MCH 31.2, MCHC 32.4 D, RDW Std Deviation 52.6 H, RDW Coeff of Maciel 14.7 H, Plt Count 274, MPV 10.2, Immature Gran % (Auto) 0.200, Neut % (Auto) 58.8, Lymph % (Auto) 23.8, [place] % (Auto) 12.3 H, Eos % (Auto) 4.0, Baso % (Auto) 0.9, Absolute Neuts (auto) 3.3, Absolute Lymphs (auto) 1.32, Nucleated RBC % 0, PT 19.0 H, INR 1.6, Sodium 136, Potassium 4.5, Chloride 106, Carbon Dioxide 26.0, Anion Gap 4 L, BUN 37 H, Creatinine 2.75 H, Estim Creat Clear Calc 28.76, Est GFR (MDRD) Af Amer 30 L, Est GFR (MDRD) Non-Af 25 L, BUN/Creatinine Ratio 13.5, Glucose 132 H, Calcium 8.6, Total Bilirubin 0.40, AST 9 L, ALT 10 L, Alkaline Phosphatase 136 H, Ammonia 128.0 H, Total Protein 6.3 L, Albumin 2.2 L, Globulin 4.1, Albumin/Globulin Ratio 0.5 L, Lipase 12 L Assessment & Plan Assessment/Plan (1) Hepatic encephalopathy: PLAN: Weight level was 128 upon arrival. Patient's mental status has improved since receiving lactulose. Patient had been on rifaximin in the past but that was discontinued when his creatinine was going up in the past but not restarted on anything else. Will continue with lactulose (2) Acute kidney injury: PLAN: Overall worsening and unclear etiology at this time. Hold sacubitril/valsartan Check urine studies. Check kidney ultrasound Consult nephrology. Holding off on diuresis at this time Discussed with the patient and his family that I cannot rule out the patient may require dialysis or ultrafiltration. (3) Hypotension: QUALIFIERS: Hypotension type: unspecified hypotension type Qual ified Code(s): I95.9 - Hypotension, unspecified PLAN: Unclear significance as patient is clearly volume overloaded Hold amlodipine Metoprolol tartrate with hold parameters Check ACTH stim test Patient is not on steroids chronically, however, cannot rule out adrenal insufficiency at this time. (4) Liver transplant recipient: PLAN: Secondary to FELIPE/alpha 1 antitrypsin deficiency. Check tacrolimus level Continue with tacrolimus and ursodiol Patient has had elevated ammonia since his transplant 2017 No clinical evidence of fulminant liver failure at this time Consult GI for further recommendations (5) Debility: PLAN: PT OT evaluate and treat Cannot rule out residential facility placement at this time. PLAN: Plan Chronic conditions * Left humerus fracture: Sustained in March. Patient was casted and put in a brace. Has been told that it is healing but patient has not been released to full weightbearing status at this time. Patient will be nonweightbearing and will require further orthopedic follow-up. * Hypothyroidism: Continue with levothyroxine * Anemia of chronic disease: Continue with iron. * A-fib: Continue with amiodarone, metoprolol and anticoagulation with apixaban * Morbid obesity: BMI of 53.3 kg/m?. VTE prophylaxis: Not indicated as patient is already on apixaban. Case discussed with the patient's and daughter at bedside. Charges/Coding Visit Charges Inpatient E&M: 88601 Init Hosp L3
--- NOTE | 2023-05-14 15:52 | US_ITS ---
INDICATION: AISSATOU EXAMINATION: Ultrasound US Kidney(s) complete (eg, kidneys and bladder) TECHNIQUE: Herndon scale and color doppler images were obtained of the kidneys. COMPARISON: FINDINGS: RIGHT KIDNEY: 9.0 x 4.4 x 4.4 cm. The cortex is 15 mm. There is no hydronephrosis. No shadowing calculus, focal lesion or perinephric collection is demonstrated. LEFT KIDNEY: 9.2 x 4.1 x 5.0 cm. The cortex is 19 mm. There is no hydronephrosis. No shadowing calculus and perinephric collection is demonstrated. There are cysts up to 3.5 cm. URINARY BLADDER: It has a volume of 169 cc. US/Kidney and Bladder IMPRESSION: Left renal cysts. Electronically Signed: Russ Varma DO at 17:18 EDT Reading Location ID and State: [facility] / [place] Tel [phone], Service support ,
[2023-05-14] MEDS: proCHLORPERazine 10 MG/2 ML Vial 5 MG IV (16:04)
[2023-05-14] MEDS: Furosemide 40 MG Tablet PO (17:44)
--- NOTE | 2023-05-14 18:35 | CON.PCM.GI_ITS ---
HPI Consult Data Date of Consult: 05/14/23 HPI Narrative Reason for Consultation: Hyperammonemia HPI Narrative: ESTEFANIA MILLER, is a 62 M presents with mental status. The patient states that this has been going on since last week, on Saturday, 7 days ago his symptoms started.? The following day, he thought he was in atrial fibrillation, was seen in the emergency department and evaluated and discharged because he was actually in normal sinus rhythm.? He returned to the emergency department 2 days ago on Saturday and had a complete work-up regarding mental status change.? He states that he is repeating himself and is more forgetful, and he does not feel right..? He has a past medical history of alpha-1 antitrypsin disease and and [place] resulting in cirrhosis status post orthotopic liver transplant in 2017. He had no opportunistic infections that he knows of. No history of CMV, EBV or [id number]-[id number]-[id number] disease. He is on tacrolimus and Bactrim prophylaxis. He also takes lactulose on a daily basis for a history hyperammonia anemia from unknown cause. He states that he feels strange and not himself.? His daughter, stated that he will say something, does often fall asleep, and then wake up and not remember things.? He received a phone call from his primary care provider's office for test results, and his family states that they noticed that he had slurred speech.? They do not know if he has been taking his lactulose as scheduled. Family also states that his left upper extremity and both lower extremities have gotten more swollen over the past few days. Family states the patient was seen by his primary care physician yesterday who did labs. Family states they were contacted this morning about his ammonia level being elevated. [facility] Medical History (Updated 05/14/23 @ 18:[address] Ray Friend, DO) (HFpEF) heart failure with preserved ejection fraction Acidosis, lactic Acute hypotension Adult failure to thrive Anemia in chronic illness Anemia of chronic disease Anxiety Ascites Atherosclerotic heart disease of [place] coronary artery without angina pectoris Atrial fibrillation Atrial fibrillation Atrial flutter with rapid ventricular response (02/02/21) BMI 50.0-59.9, adult CAD (coronary artery disease) Cellulitis Chest pain Chronic anticoagulation Chronic diastolic congestive heart failure Chronic kidney disease Chronic kidney disease, stage 3a Chronic kidney disease, stage 3b Chronic renal failure, stage 3 (moderate) Cirrhosis Closed left humeral fracture Congestive heart failure Coronary artery disease Coronary artery disease Debility Debility Elevated troponin Gout Gout History of non-ST elevation myocardial infarction (NSTEMI) (12/29/20) Hypertension Insomnia Kidney disease Lactic acidosis Lumbar radiculopathy Malaise and fatigue Morbid obesity Morbid obesity Multiple falls OGLESBY (nonalcoholic steatohepatitis) OGLESBY (nonalcoholic steatohepatitis) Nonsustained paroxysmal ventricular tachycardia (12/2020) Osteoarthritis of ankle and foot PAF (paroxysmal atrial fibrillation) Paroxysmal atrial fibrillation Periprosthetic fracture around internal prosthetic joint Right hip pain Seborrhea of face SOB (shortness of breath) Unable to ambulate Venous insufficiency Vertigo, central Weakness Home Medications apixaban 5 mg tablet (Eliquis) 5 mg PO BID BLOOD THINNER 07/20/22 [History Last Taken 05/14/23 09:00 5 mg] allopurinol 300 mg tablet 300 mg PO DAILY GOUT 11/04/22 [History Last Taken 05/14/23 09:00 300 mg] tacrolimus 0.5 mg capsule, immediate-release 0.5 mg PO 09,2100 LIVER TRANSPLANT 11/06/22 [History Last Taken 05/14/23 09:00 0.5 mg] metoprolol tartrate 50 mg tablet 50 mg PO BID BLOOD PRESSURE #180 tabs 11/27/22 [Rx Last Taken 05/14/23 09:00 50 mg] nitroglycerin 0.4 mg sublingual tablet 0.4 mg sublingual Q5M PRN CHEST PAIN #25 tabs 11/27/22 [Rx Last Taken Unknown] citalopram 10 mg tablet 10 mg PO DAILY MOOD 02/08/23 [History Last Taken 05/14/23 09:00 10 mg] amiodarone 200 mg tablet 200 mg PO DAILY BLOOD PRESSURE 02/14/23 [History Last Taken 05/14/23 09:00 200 mg] ursodiol 300 mg capsule 300 mg PO BID GALLSTONES 02/14/23 [History Last Taken 05/14/23 09:00 300 mg] prochlorperazine maleate 5 mg tablet 5 mg PO Q6H PRN NAUSEA/VOMITING 03/10/23 [History Last Taken 05/12/23 09:00 5 mg] sulfamethoxazole 400 mg-trimethoprim 80 mg tablet 1 tab PO DAILY LIVER TRA NSPLANT 04/11/23 [History Last Taken 05/14/23 09:00 1 TAB] amlodipine 5 mg tablet 5 mg PO DAILY BLOOD PRESSURE 04/24/23 [History Last Taken 05/13/23 09:00 5 mg] famotidine 20 mg tablet 20 mg PO Q12H ACID REFLUX 04/24/23 [History Last Taken 05/13/23 09:00 20 mg] levothyroxine 25 mcg tablet 25 mcg PO DAILY THYROID 04/24/23 [History Last Taken 05/14/23 06:00 25 mcg] oxycodone 10 mg tablet 10 mg PO TID PRN BTP 04/24/23 [History Last Taken 05/12/23 09:00 10 mg] polyethylene glycol 3350 17 gram oral powder packet (Miralax) 17 g PO .ONCE PRN constipation 04/24/23 [History Last Taken 05/11/23 21:00 17 g] furosemide 20 mg tablet (Lasix) 40 mg PO BID diuretic 05/14/23 [History Last Taken 05/14/23 09:00 40 mg] polysaccharide iron complex 150 mg iron capsule (Ferrex) 150 mg PO DAILY supplment 05/14/23 [History Last Taken 05/13/23 21:00 150 mg] sacubitril 24 mg-valsartan 26 mg tablet (Entresto) 1 tab PO BID heart 05/14/23 [History Last Taken 05/14/23 09:00 1 TAB] Allergy/AdvReac Type Severity Reaction Status Date / Time morphine Allergy Hives Verified 05/14/23 09:18 pravastatin [From Pravachol] Allergy Hives Verified 05/14/23 09:18 Xnpalsb-IMX-JhA Reductase Allergy Hives Verified 05/14/23 09:18 Inhibitor [Luahedh-Edt-Jqx Reductase Inhibitor] vancomycin Allergy NEEDS Verified 05/14/23 09:18 FOLLOW-UP zolpidem tartrate Allergy Hives Verified 05/14/23 09:18 [From Ambien] everolimus AdvReac Swelling Verified 05/14/23 09:18 gabapentin AdvReac NEEDS Verified 05/14/23 09:18 FOLLOW-UP Family History Mother Heart disease Father Heart disease Surgical History H/O shoulder surgery History of cardioversion (02/02/21) History of cataract extraction with lens replacement (~11/22/22) History of hip surgery History of liver transplant Liver transplant recipient S/P PTCA (percutaneous transluminal coronary angioplasty) Status post liver transplant (07/2017) Social History household members: spouse Smoking Status: Never smoker alcohol intake: former substance use type: does not use caffeine: No ROS Constitutional Constitutional: Reports fatigue, malaise and weakness; Denies chills or fever(s) Eyes Eyes: Denies change in vision Cardiovascular Cardiovascular: Reports dyspnea on exertion and edema; Denies chest pain, lightheadedness, orthopnea or palpitations Respiratory/Chest Respiratory/Chest: Denies cough Gastrointestinal Gastrointestinal: Denies abdominal pain Genitourinary Genitourinary: Denies dysuria Physical Exam Const alert and no apparent distress HEENT normocephalic and head/scalp atraumatic Resp normal respiratory effort, no retractions, no use of accessory muscles and clear to auscultation bilaterally Cardio regular rate, regular rhythm, S1 normal heart sound and S2 normal heart sound GI normal to inspection, nondistended, normoactive bowel sounds, soft to palpation, non-tender and non-distended GI Narrative: Midline healed upper abdominal scar. Extremity Extremity Narrative: Extensive anasarca with lymphedematous changes of bilateral lower extremities as well as left upper extremity. Skin Skin Narrative: Lymphedematous changes to extremities but no evidence of any cellulitis. Neuro moves all extremities Sensorium / Orientation: awake and alert Psych affect normal Lab / Micro Data 05/14/23 10:10 05/14/23 10:10 Labs: Laboratory Results - last 24 hr 05/14/23 10:10: WBC 5.6, RBC 2.82 L, Hgb 8.8 L, Hct 27.2 L, MCV 96.5 H, MCH 31.2, MCHC 32.4 D, RDW Std Deviation 52.6 H, RDW Coeff of Maciel 14.7 H, Plt Count 274, MPV 10.2, Immature Gran % (Auto) 0.200, Neut % (Auto) 58.8, Lymph % (Auto) 23.8, [place] % (Auto) 12.3 H, Eos % (Auto) 4.0, Baso % (Auto) 0.9, Absolute Neuts (auto) 3.3, Absolute Lymphs (auto) 1.32, Nucleated RBC % 0, PT 19.0 H, INR 1.6, Sodium 136, Potassium 4.5, Chloride 106, Carbon Dioxide 26.0, Anion Gap 4 L, BUN 37 H, Creatinine 2.75 H, Estim Creat Clear Calc 28.76, Est GFR (MDRD) Af Amer 30 L, Est GFR (MDRD) Non-Af 25 L, BUN/Creatinine Ratio 13.5, Glucose 132 H, Calcium 8.6, Total Bilirubin 0.40, AST 9 L, ALT 10 L, Alkaline Phosphatase 136 H, Amm onia 128.0 H, Total Protein 6.3 L, Albumin 2.2 L, Globulin 4.1, Albumin/Globulin Ratio 0.5 L, Lipase 12 L Radiology Impression Renal Ultrasound 05/14/23 15:52 IMPRESSION: Left renal cysts. Electronically Signed: Russ Varma DO at 17:18 EDT Reading Location ID and State: [facility] / [place] Tel [phone], Service support , Assessment & Plan Assessment/Plan (1) Lactic acidosis: (2) History of liver transplant: PLAN: Plan Patient is a 62-year-old gentleman with multiple comorbidities including morbid obesity resulting in chronic kidney disease, fatty liver disease, alpha-1 ant itrypsin deficiency (unknown genotype at this time) resulting in the need for liver transplant. He presented with weakness shortness of breath, altered mental status. 3. Transient focal weakness-possibly secondary to Hyperammonemia as he has not been complaint with Lactulose. His ammonia has has improved since being in the hospital. He is to take lactulose 30 cc 4 times a day and recommend to start him on Xifaxan therapy 550 mg twice a day. Azithromyocin 500mg daily, Flagyl 500 mg twice daily and possibly neomycin 500 mg once a day due to his kidney function. 5.? History of liver transplant ? In 2017 on account of NAFLD as well as alpha-1 antitrypsin deficiency.? Patient is on Bactrim as well as tacrolimus did continue. i Charges/Coding Visit Charges Inpatient E&M: 71296 Init Hosp L3
[2023-05-14 18:59] LABS: Bacteria 0 SEEN /hpf (None Seen); Mucous, Urine 0 SEEN /hpf (<or=2+); Red Blood Cells-Urine 0 SEEN /hpf (0-5); Squamous Epithelial Cells - UA 0 SEEN /hpf (0-5); White Blood Cells 0 SEEN /hpf (0-5)
[2023-05-14 19:00] LABS: Color, Urine Yellow (Yellow); Glucose, Dipstick Normal (Normal); Ketone-Dipstick Negative (Negative); Leukocyte Esterase-Dipstick Negative /ul (Negative); Nitrite-Dipstick Negative (Negative); Occult Blood-Urine Negative /ul (Negative); Protein-Dipstick Negative (Negative); Urine Bilirubin Dipstick Negative (Negative); Urine Clarity Clear (Clear); Urine Urobilinogen Normal (Normal)
[2023-05-14 19:11] LABS: Urea Nitrogen, Urine 271 mg/dL (NO RANGE EST.)
[2023-05-14] MEDS: Tacrolimus 0.5 MG Capsule PO (20:53)
[2023-05-14] MEDS: Ursodiol 250 MG Tablet PO (21:36)
[2023-05-14] MEDS: APIXABAN 5 MG TABLET PO (21:38)
[2023-05-14] MEDS: metroNIDAZOLE 500 MG Tablet PO (21:38)
[2023-05-14] MEDS: rifAXIMin 550 MG Tablet PO (21:38)
[2023-05-15] VITALS (7 sets, daily range): BP systolic 99–106; BP diastolic 40–58; PULSE 58–67; RESP 16–18; TEMP 36.6–36.8; O2SAT 96–99
[2023-05-15] MEDS: Metoclopramide 10 MG/2 ML Vial 5 MG IV ×4 (00:33→17:48)
[2023-05-15] MEDS: 0.9% Saline Lock 10 ML Syringe IV ×2 (00:35→05:53)
[2023-05-15] MEDS: oxyCODONE 5 MG Tablet 10 MG PO ×2 (02:35→15:56)
[2023-05-15] MEDS: Levothyroxine 25 MCG TABLET PO (05:54)
[2023-05-15] MEDS: Lactulose 20 GM/30 ML UDC PO ×3 (05:54→21:26)
[2023-05-15 06:05] LABS: Absolute Lymphocyte Count 1.03 X10^3/uL (0.83-4.51); Absolute Neutrophil Count 2.7 X10^3/uL (2.0-7.7); Basophil# 0.02 X10^3/uL; Basophil% 0.5 % (0-1); Eosinophil# 0.13 X10^3/uL; Hematocrit 25.7 % (40-54); Hemoglobin 7.9 g/dL (13.0-16.5); Lymphocyte # 1.03 X10^3/ul (0.83-4.51); Lymphocyte % 23.6 % (19-41); Mean Corp Hgb Conc 30.7 g/dL (32-36); Mean Corpuscular Hgb 29.7 pg (27.0-32.0); Mean Corpuscular Volume 96.6 fL (80-94); Mean Platelet Vol. 10.3 fl (6.2-12.0); Monocyte# 0.51 X10^3/uL; Monocyte% 11.7 % (0-10); NRBC Flagged by Analyzer 0 % (0-5); Neutrophil # 2.66 X10^3/uL (2.7-7.7); Neutrophil % 60.7 % (47-70); Platelet Count 246 K/mm3 (150-450); RBC Distribution Width CV 14.6 % (11.6-14.6); RBC Distribution Width SD 51.8 fl (35.1-43.9); Red Blood Count 2.66 M/mm3 (4.6-6.2); White Blood Count 4.4 K/mm3 (4.4-11.0)
--- NOTE | 2023-05-15 06:22 | NURSING ---
Lab in to draw labs this morning at 0555. This RN gave x1 Cortrosyn immediately after lab draw was completed. security installation sales technicianshelby Urban notified patient she would return in 1 hour to draw the 2nd required lab. This nurse provided education to patient on why it was being given and why a redraw was needed 1 hour after med was given. Understanding verbalized.
[2023-05-15 06:40] LABS: ALB/GLOB Ratio 0.6 RATIO (0.9-2.4); AST(SGOT) 8 U/L (15-37); Alanine Aminotransfer ALT/SGPT 10 U/L (16-61); Alkaline Phosphatase 114 U/L (45-117); Anion Gap 5 (5-15); BUN 33 mg/dL (7-18); BUN/Creat Ratio 13.6 RATIO (10-20); Calcium,Total 8.3 mg/dL (8.5-10.1); Chloride 110 mmol/L (98-107); Creatinine, Serum 2.42 mg/dL (0.70-1.30); EST Glomerular Filtration Rate 29 mL/min (>60); Est Glom Filt Rate - Afr Amer 35 mL/min (>60); Estimated Creatinine Clearance 32.68 ml/min; Globulin 3.5 g/dL (2.2-4.2); Glucose 123 mg/dL (74-106); Potassium 4.2 mmol/L (3.5-5.1); Protein, Total 5.5 g/dL (6.4-8.2); Sodium Level 139 mmol/L (136-145)
--- NOTE | 2023-05-15 07:50 | PN.HOSP_ITS ---
Reason for Visit Reason for Visit: Diagnoses Acidosis, unspecified (05/14/23) Hypotension, unspecified (05/14/23) Hepatic encephalopathy (05/14/23) Acute kidney failure, unspecified (05/14/23) Other malaise (05/14/23) Liver transplant status (05/14/23) Subjective Subjective Noted to be groggy at times by family. Objective Data Objective Data Vital Signs: Vital Signs Temp Pulse Resp BP Pulse Ox O2 Del Method 36.7 C 58 L 18 103/46 L 96 Room Air 05/15/23 02:40 05/15/23 02:40 05/15/23 02:40 05/15/23 02:40 05/15/23 02:40 05/15/23 02:41 Oxygen Delivery Method Room Air Weight: 169.009 kg Body Mass Index (BMI) 53.4 Intake & Output: Intake and Output for Last 24 Hours 05/13/23 05/14/23 05/15/23 23:59 23:59 23:59 Intake Total 1000 / 1000 50 / 50 Output Total 1700 / 1700 Balance 1000 / 600 -1650 / -1650 Lab / Micro Data 05/15/23 05:55 05/15/23 05:55 Labs: Laboratory Results - last 24 hr 05/14/23 10:10: WBC 5.6, RBC 2.82 L, Hgb 8.8 L, Hct 27.2 L, MCV 96.5 H, MCH 31.2, MCHC 32.4 D, RDW Std Deviation 52.6 H, RDW Coeff of [place] 14.7 H, Plt Count 274, MPV 10.2, Immature Gran % (Auto) 0.200, Neut % (Auto) 58.8, Lymph % (Auto) 23.8, [place] % (Auto) 12.3 H, Eos % (Auto) 4.0, Baso % (Auto) 0.9, Absolute Neuts (auto) 3.3, Absolute Lymphs (auto) 1.32, Nucleated RBC % 0, PT 19.0 H, INR 1.6, Sodium 136, Potassium 4.5, Chloride 106, Carbon Dioxide 26.0, Anion Gap 4 L, BUN 37 H, Creatinine 2.75 H, Estim Creat Clear Calc 28.76, Est GFR (MDRD) Af Amer 30 L, Est GFR (MDRD) Non-Af 25 L, BUN/Creatinine Ratio 13.5, Glucose 132 H, Calcium 8.6, Total Bilirubin 0.40, AST 9 L, ALT 10 L, Alkaline Phosphatase 136 H, Ammonia 128.0 H, Total Protein 6.3 L, Albumin 2.2 L, Globulin 4.1, A lbumin/Globulin Ratio 0.5 L, Lipase 12 L 05/14/23 : Urine Color Yellow, Urine Clarity Clear, Urine pH 6.0, Ur Specific [place] 1.010, Urine Protein Negative, Urine Glucose (UA) Normal, Urine Ketones Negative, Urine Occult Blood Negative, Urine Nitrite Negative, Urine Bilirubin Negative, Urine Urobilinogen Normal, Ur Leukocyte Esterase Negative, Urine RBC 0 SEEN, Urine WBC 0 SEEN, Ur Squamous Epith Cells 0 SEEN, Urine Bacteria 0 SEEN, Urine Mucus 0 SEEN, Urine Creatinine 41.40, Urine Urea Nitrogen 271 05/15/23 05:55: WBC 4.4, RBC 2.66 L, Hgb 7.9 L, Hct 25.7 L, MCV 96.6 H, MCH 29.7, MCHC 30.7 L D, RDW Std Deviation 51.8 H, RDW Coeff of Maciel 14.6, Plt Count 246, MPV 10.3, Immature Gran % (Auto) 0.500, Neut % (Auto) 60.7, Lymph % (Auto) 23.6, [place] % (Auto) 11.7 H, Eos % (Auto) 3.0, Baso % (Auto) 0.5, Absolute Neuts (auto) 2.7, Absolute Lymphs (auto) 1.03, Nucleated RBC % 0, Sodium 139, Potassium 4.2, Chloride 110 H, Carbon Dioxide 24.0, Anion Gap 5, BUN 33 H, Creatinine 2.42 H, Estim Creat Clear Calc 32.68, Est GFR (MDRD) Af Amer 35 L, Est GFR (MDRD) Non-Af 29 L, BUN/Creatinine Ratio 13.6, Glucose 123 H, Calcium 8.3 L, Total Bilirubin 0.60, AST 8 L, ALT 10 L, Alkaline Phosphatase 114, Total Protein 5.5 L, Albumin 2.0 L, Globulin 3.5, Albumin/Globulin Ratio 0.6 L Radiography Diagnostic Testing: Radiology Impression Renal Ultrasound 05/14/23 15:52 IMPRESSION: Left renal cysts. Electronically Signed: Russ Varma DO at 17:18 EDT Reading Location ID and State: [facility] / [place] Tel [phone], Service support , Physical Exam Const no apparent distress Constitutional Narrative: interacts briefly before dozing off. HEENT head/scalp atraumatic and moist oral mucous membranes Resp normal respiratory effort, no retractions, no use of accessory muscles and clear to auscultation bilaterally Cardio regular rate, regular rhythm, S1 normal heart sound and S2 normal heart sound GI normal to inspection, nondistended, normoactive bowel sounds, soft to palpation and non-tender Extremity Extremity Narrative: anasarca in LE and LUE. Neuro Sensorium / Orientation: awake and alert Assessment & Plan Assessment/Plan (1) Hepatic encephalopathy: PLAN: Ammonia was 128 upon arrival. Patient's mental status has improved since receiving lactulose. Patient had been on rifaximin in the past but that was discontinued when his creatinine was going up in the past but not restarted on anything else. Will continue with lactulose Seen by GI, who recommends adding rifaxamin 550 BID. (2) Acute kidney injury: PLAN: Improved Hold sacubitril/valsartan Check urine studies. Check kidney ultrasound Consult nephrology. Discussed with the patient and his family that I cannot rule out the patient may require dialysis or ultrafiltration. (3) Hypotension: QUALIFIERS: Hypotension type: unspecified hypotension type Qualified Code(s): I95.9 - Hypotension, unspecified PLAN: Unclear significance as patient is clearly volume overloaded Hold amlodipine, sacubitril/valsartan, decrease metoprolol from 50 to 25. ACTH stim test: baseline cortisol low, but WNL, testing cortisol 16.7. Check DHEAS, if normal, would rule out adrenal insuffiency. (4) Liver transplant recipient: PLAN: Secondary to FELIPE/alpha 1 antitrypsin deficiency. Check tacrolimus level Continue with tacrolimus and ursodiol Patient has had elevated ammonia since his transplant 2017 No clinical evidence of fulminant liver failure at this time (5) Debility: PLAN: PT OT evaluate and treat Cannot rule out senior living facility placement at this time. PLAN: Plan Chronic conditions * Left humerus fracture: Sustained in March. Patient was casted and put in a brace. Has been told that it is healing but patient has not been released to full weightbearing status at this time. Patient will be nonweightbearing and will require further orthopedic follow-up. * Hypothyroidism: Continue with levothyroxine * Anemia of chronic disease: Continue with iron. * A-fib: Continue with amiodarone, metoprolol and anticoagulation with apixaban * Morbid obesity: BMI of 53.3 kg/m?. VTE prophylaxis: Not indicated as patient is already on apixaban. Charges/Coding Visit Charges Inpatient E&M: 94583 Subs Hosp L3
[2023-05-15] MEDS: Furosemide 40 MG Tablet PO ×2 (08:39→17:48)
[2023-05-15] MEDS: Ursodiol 250 MG Tablet PO ×2 (08:39→21:29)
[2023-05-15] MEDS: Smz/Tmp Ds Tablet 0.5 TABLET PO (08:42)
[2023-05-15] MEDS: APIXABAN 5 MG TABLET PO ×2 (08:42→21:29)
[2023-05-15] MEDS: Amiodarone 200 MG Tablet PO (08:42)
[2023-05-15] MEDS: metroNIDAZOLE 500 MG Tablet PO ×2 (08:42→21:28)
[2023-05-15] MEDS: Iron Polysaccharide Complex 150 MG CAPSULE PO (08:42)
[2023-05-15] MEDS: Tacrolimus 0.5 MG Capsule PO ×2 (08:43→21:26)
[2023-05-15] MEDS: Miconazole Nitrate 43 GM Bottle 1 APPLIC TOPICAL ×2 (08:43→21:28)
[2023-05-15] MEDS: rifAXIMin 550 MG Tablet PO ×2 (08:43→21:28)
--- NOTE | 2023-05-15 08:43 | CON.PCM.RE_ITS ---
Assessment & Plan Assessment/Plan (1) Acute on chronic kidney failure: QUALIFIERS: Acute renal failure type: unspecified Chronic kidney disease stage 3 subtype: stage 3b (GFR 30-44) PLAN: Creatinine 2.75 with baseline creatinine 1.8 likely hemodynamic changes, prerenal azotemia on diuretics, Entresto, HE with poor intake, hypotension and Bactim. Creatinine improved to 2.4 today. Urine output good. Follow daily (2) Stage 3b chronic kidney disease (CKD): PLAN: Creatinine baseline 1.6 to 1.8 (3) OGLESBY (nonalcoholic steatohepatitis): PLAN: s/p liver tx (4) Debility: PLAN: wheelchair bound (5) Hepatic encephalopathy: PLAN: elevated ammonia level. Continue lactulose. Ok to take xifaxan in CKD. Mental status back to baseline (6) Liver transplant recipient: PLAN: on prograf with bactrim (7) Morbid obesity: (8) Coronary artery disease: QUALIFIERS: Coronary Disease-Associated Artery/Lesion type: [place] artery [place] vs. transplanted heart: [place] heart PLAN: resume Entresto when BP stable, creatinine stable (9) Paroxysmal atrial fibrillation: (10) Chronic diastolic congestive heart failure: PLAN: resume low dose Entresto (11) Iron deficiency anemia: QUALIFIERS: Iron deficiency anemia type: unspecified iron deficiency Qualified Code(s): D50.9 - Iron deficiency anemia, unspecified PLAN: continue oral iron. Add iv iron HPI Consult Data Date of Consult: 05/15/23 HPI Narrative Reason for Consultation: acute on CKD HPI Narrative: ESTEFANIA MILLER, is a morbidly obese 62 M who was sent to ED for altered mental status after seen in his PCP office. He states that he is repeating himself and is more forgetful. Family noticed slurred speech. Ammonia level was elevated at 128. He is prescribed lactulose and xifaxan but has not been taking it at home. He was last seen in my office on 05/02/23 and his lasix dose was increased to 40mg twice a day for fluid retention, BLE edema,LUE swelling s/p fall with humerus fx, no diuretic response with 20mg dose with weight gain. Weights have been stable with increase lasix dose. He was started on Entresto by his PCP on 05/02/23. Creatinine baseline 1.8 increased to 2.75 on admit to 2.42 eGFR 32cc/min today off Entresto. His BP is low and is evaluated for adrenal insufficiency by primary service. He has a past medical history of alpha-1 antitrypsin disease and and [place] resulting in cirrhosis status post orthotopic liver transplant in 2017. He is on tacrolimus and bactrim. He has a history of HE, CAD s/p stents, RA, DM2, iron deficiency anemia and atrial fibrillation on Eliquis. Hgb low at 7.9g today. [facility] Medical History (Updated 05/15/23 @ 17:[address] Verenice Monae, DO) (HFpEF) heart failure with preserved ejection fraction Acidosis, lactic Acute hypotension Adult failure to thrive Anemia in chronic illness Anemia of chronic disease Anxiety Ascites Atherosclerotic heart disease of [place] coronary artery without angina pectoris Atrial fibrillation Atrial fibrillation Atrial flutter with rapid ventricular response (02/02/21) BMI 50.0-59.9, adult CAD (coronary artery disease) Cellulitis Chest pain Chronic anticoagulation Chronic diastolic congestive heart failure Chronic kidney disease Chronic kidney disease, stage 3a Chronic kidney disease, stage 3b Chronic renal failure, stage 3 (moderate) Cirrhosis Closed left humeral fracture Congestive heart failure Coronary artery disease Coronary artery disease Debility Debility Elevated troponin Gout Gout History of non-ST elevation myocardial infarction (NSTEMI) (12/29/20) Hypertension Insomnia Kidney disease Lactic acidosis Lumbar radiculopathy Malaise and fatigue Morbid obesity Morbid obesity Multiple falls OGLESBY (nonalcoholic steatohepatitis) OGLESBY (nonalcoholic steatohepatitis) Nonsustained paroxysmal ventricular tachycardia (12/2020) Osteoarthritis of ankle and foot PAF (paroxysmal atrial fibrillation) Paroxysmal atrial fibrillation Periprosthetic fracture around internal prosthetic joint Right hip pain Seborrhea of face SOB (shortness of breath) Unable to ambulate Venous insufficiency Vertigo, central Weakness Home Medications apixaban 5 mg tablet (Eliquis) 5 mg PO BID BLOOD THINNER 07/20/22 [History Last Taken 05/14/23 09:00 5 mg] allopurinol 300 mg tablet 300 mg PO DAILY GOUT 11/04/22 [History Last Taken 05/14/23 09:00 300 mg] tacrolimus 0.5 mg capsule, immediate-release 0.5 mg PO 0900,2100 LIVER TRANSPLANT 11/06/22 [History Last Taken 05/14/23 09:00 0.5 mg] metoprolol tartrate 50 mg tablet 50 mg PO BID BLOOD PRESSURE #180 tabs 11/27/22 [Rx Last Taken 05/14/23 09:00 50 mg] nitroglycerin 0.4 mg sublingual tablet 0.4 mg sublingual Q5M PRN CHEST PAIN #25 tabs 11/27/22 [Rx Last Taken Unknown] citalopram 10 mg tablet 10 mg PO DAILY MOOD 02/08/23 [History Last Taken 05/14/23 09:00 10 mg] amiodarone 200 mg tablet 200 mg PO DAILY BLOOD PRESSURE 02/14/23 [History Last Taken 05/14/23 09:00 200 mg] ursodiol 300 mg capsule 300 mg PO BID GALLSTONES 02/14/23 [History Last Taken 05/14/23 09:00 300 mg] prochlorperazine maleate 5 mg tablet 5 mg PO Q6H PRN NAUSEA/VOMITING 03/10/23 [History Last Taken 05/12/23 09:00 5 mg] sulfamethoxazole 400 mg-trimethoprim 80 mg tablet 1 tab PO DAILY LIVER TRANSPLANT 04/11/23 [History Last Taken 05/14/23 09:00 1 TAB] amlodipine 5 mg tablet 5 mg PO DAILY BLOOD PRESSURE 04/24/23 [History Last Taken 05/13/23 09:00 5 mg] famotidine 20 mg tablet 20 mg PO Q12H ACID REFLUX 04/24/23 [History Last Taken 05/13/23 09:00 20 mg] levothyroxine 25 mcg tablet 25 mcg PO DAILY THYROID 04/24/23 [History Last Taken 05/14/23 06:00 25 mcg] oxycodone 10 mg tablet 10 mg PO TID PRN BTP 04/24/23 [History Last Taken 05/12/23 09:00 10 mg] polyethylene glycol 3350 17 gram oral powder packet (Miralax) 17 g PO .ONCE PRN constipation 04/24/23 [History Last Taken 05/11/23 21:00 17 g] furosemide 20 mg tablet (Lasix) 40 mg PO BID diuretic 05/14/23 [History Last Taken 05/14/23 09:00 40 mg] polysaccharide iron complex 150 mg iron capsule (Ferrex) 150 mg PO DAILY supplment 05/14/23 [History Last Taken 05/13/23 21:00 150 mg] sacubitril 24 mg-valsartan 26 mg tablet (Entresto) 1 tab PO BID heart 05/14/23 [History Last Taken 05/14/23 09:00 1 TAB] Allergy/AdvReac Type Severity Reaction Status Date / Time morphine Allergy Hives Verified 05/14/23 09:18 pravastatin [From Pravachol] Allergy Hives Verified 05/14/23 09:18 Oemxfhj-XUK-ZgQ Reductase Allergy Hives Verified 05/14/23 09:18 Inhibitor [Ggretya-Uok-Cpd Reductase Inhibitor] vancomycin Allergy NEEDS Verified 05/14/23 09:18 FOLLOW-UP zolpidem tartrate Allergy Hives Verified 05/14/23 09:18 [From Ambien] everolimus AdvReac Swelling Verified 05/14/23 09:18 gabapentin AdvReac NEEDS Verified 05/14/23 09:18 FOLLOW-UP Family History Mother Heart disease Father Heart disease Surgical History H/O shoulder surgery History of cardioversion (02/02/21) History of cataract extraction with lens replacement (~11/22/22) History of hip surgery History of liver transplant Liver transplant recipient S/P PTCA (percutaneous transluminal coronary angioplasty) Status post liver transplant (07/2017) Social History household members: spouse Smoking Status: Never smoker alcohol intake: former substance use type: does not use caffeine: No ROS Review of Systems ROS Unobtainable: other Details: history obtained from pt at bedside, more alert awake at baseline Constitutional Constitutional: Reports weakness and weight gain; Denies chills or fever(s) Eyes Eyes: Denies loss of vision ENT HEENT: Denies nasal congestion Cardiovascular Cardiovascular: Reports dyspnea on exertion and edema; Denies chest pain, orthopnea or syncope Respiratory/Chest Respiratory/Chest: Denies dry cough or shortness of breath at rest Gastrointestinal Gastrointestinal: Reports other Details: BM 2-3x/day on lactulose in the hospital ; Denies abdominal pain, anorexia, diarrhea, hematochezia, melena, nausea, rectal bleeding or vomiting Musculoskeletal Musculoskeletal: Reports other Details: leg, LUE edema improving Integumentary Integumentary: Denies erythema Neurologic Neurologic: Reports confusion and weakness; Denies tremor(s) Physical Exam Const alert and oriented x3 Nutritional Appearance: morbidly obese HEENT External Ear: external ears normal Eyes no scleral icterus Neck no lymphadenopathy Resp clear to auscultation bilaterally Cardio regular rate GI non-tender and non-distended GI Narrative: obese Auscultation: normoactive bowel sounds Palpation: soft Extremity Extremity Narrative: decreased leg edema, less LUE swelling Skin No no rashes or lesions noted General Skin Exam: Negative for ecchymosis Lab / Micro Data 05/15/23 05:55 05/15/23 05:55 Labs: Laboratory Results - last 24 hr 05/14/23 10:10: WBC 5.6, RBC 2.82 L, Hgb 8.8 L, Hct 27.2 L, MCV 96.5 H, MCH 31.2, MCHC 32.4 D, RDW Std Deviation 52.6 H, RDW Coeff of [place] 14.7 H, Plt Count 274, MPV 10.2, Immature Gran % (Auto) 0.200, Neut % (Auto) 58.8, Lymph % (Auto) 23.8, [place] % (Auto) 12.3 H, Eos % (Auto) 4.0, Baso % (Auto) 0.9, Absolute Neuts (auto) 3.3, Absolute Lymphs (auto) 1.32, Nucleated RBC % 0, PT 19.0 H, INR 1.6, Sodium 136, Potassium 4.5, Chloride 106, Carbon Dioxide 26.0, Anion Gap 4 L, BUN 37 H, Creatinine 2.75 H, Estim Creat Clear Calc 28.76, Est GFR (MDRD) Af Amer 30 L, Est GFR (MDRD) Non-Af 25 L, BUN/Creatinine Ratio 13.5, Glucose 132 H, Calcium 8.6, Total Bilirubin 0.40, AST 9 L, ALT 10 L, Alkaline Phosphatase 136 H, Ammonia 128.0 H, Total Protein 6.3 L, Albumin 2.2 L, Globulin 4.1, Albumin/Gl obulin Ratio 0.5 L, Lipase 12 L 05/14/23 : Urine Color Yellow, Urine Clarity Clear, Urine pH 6.0, Ur Specific [place] 1.010, Urine Protein Negative, Urine Glucose (UA) Normal, Urine Ketones Negative, Urine Occult Blood Negative, Urine Nitrite Negative, Urine Bilirubin Negative, Urine Urobilinogen Normal, Ur Leukocyte Esterase Negative, Urine RBC 0 SEEN, Urine WBC 0 SEEN, Ur Squamous Epith Cells 0 SEEN, Urine Bacteria 0 SEEN, Urine Mucus 0 SEEN, Urine Creatinine 41.40, Urine Urea Nitrogen 271 05/15/23 05:55: WBC 4.4, RBC 2.66 L, Hgb 7.9 L, Hct 25.7 L, MCV 96.6 H, MCH 29.7, MCHC 30.7 L D, RDW Std Deviation 51.8 H, RDW Coeff of [place] 14.6, Plt Count 246, MPV 10.3, Immature Gran % (Auto) 0.500, Neut % (Auto) 60.7, Lymph % (Auto) 23.6, [place] % (Auto) 11.7 H, Eos % (Auto) 3.0, Baso % (Auto) 0.5, Absolute Neuts (auto) 2.7, Absolute Lymphs (auto) 1.03, Nucleated RBC % 0, Sodium 139, Potassium 4.2, Chloride 110 H, Carbon Dioxide 24.0, Anion Gap 5, BUN 33 H, Creatinine 2.42 H, Estim Creat Clear Calc 32.68, Est GFR (MDRD) Af Amer 35 L, Est GFR (MDRD) Non-Af 29 L, BUN/Creatinine Ratio 13.6, Glucose 123 H, Calcium 8.3 L, Total Bilirubin 0.60, AST 8 L, ALT 10 L, Alkaline Phosphatase 114, Total Protein 5.5 L, Albumin 2.0 L, Globulin 3.5, Albumin/Globulin Ratio 0.6 L Radiology Impression Renal Ultrasound 05/14/23 15:52 IMPRESSION: Left renal cysts. Electronically Signed: Russ Varma DO at 17:18 EDT ,
--- NOTE | 2023-05-15 15:59 | CASEMGMT ---
ASHANTI BROOKE Readmission Note Previous Admission:?04/24/23-04/26/23 Diagnosis:?hypercloremia, CKD DC Disposition: Home with CHARELTTE of [facility] Current Admission? Current Diagnosis: hepatic encephalopathy? Pt readmitted after PCP saw pt and lillie labs per pt and dtr report. Pt states he used to take lactulose but does not know when it stopped but did so based on orders from physician. Pt lives in mobile home with , has DME. ASHANTI BROOKE into pt room, pt dtr present. Pt states he wishes to return home with [facility] services. PT was not able to eval him today. Pt reports he has all of the DME he needs in the home. ASHANTI BROOKE to follow therapy. DC Plan: [facility] resuming pending therapy evals.
--- NOTE | 2023-05-15 18:37 | EX.PCM.PN.GI ---
Subjective Subjective Patient's mental status is a lot better and seems to be closer to his baseline mental status. Objective Data Objective Data Vital Signs: Vital Signs Temp Pulse Resp BP Pulse Ox O2 Del Method 98.3 F 61 18 106/58 L 96 Room Air 05/15/23 15:00 05/15/23 15:00 05/15/23 15:00 05/15/23 15:00 05/15/23 15:00 05/15/23 15:00 Oxygen Delivery Method Room Air Weight: 372 lb 9.617 oz Body Mass Index (BMI) 53.4 Intake & Output: Intake and Output for Last 24 Hours 05/13/23 05/14/23 05/15/23 23:59 23:59 23:59 Intake Total 1000 / 1000 750 / 750 Output Total 2950 / 2950 Balance 1000 / 600 -2200 / -2200 Lab / Micro Data 05/15/23 05:55 05/15/23 05:55 Labs: Laboratory Results - last 24 hr 05/14/23 : Urine Color Yellow, Urine Clarity Clear, Urine pH 6.0, Ur Specific [place] 1.010, Urine Protein Negative, Urine Glucose (UA) Normal, Urine Ketones Negative, Urine Occult Blood Negative, Urine Nitrite Negative, Urine Bilirubin Negative, Urine Urobilinogen Normal, Ur Leukocyte Esterase Negative, Urine RBC 0 SEEN, Urine WBC 0 SEEN, Ur Squamous Epith Cells 0 SEEN, Urine Bacteria 0 SEEN, Urine Mucus 0 SEEN, Urine Creatinine 41.40, Urine Urea Nitrogen 271 05/15/23 05:55: WBC 4.4, RBC 2.66 L, Hgb 7.9 L, Hct 25.7 L, MCV 96.6 H, MCH 29.7, MCHC 30.7 L D, RDW Std Deviation 51.8 H, RDW Coeff of Maciel 14.6, Plt Count 246, MPV 10.3, Immature Gran % (Auto) 0.500, Neut % (Auto) 60.7, Lymph % (Auto) 23.6, [place] % (Auto) 11.7 H, Eos % (Auto) 3.0, Baso % (Auto) 0.5, Absolute Neuts (auto) 2.7, Absolute Lymphs (auto) 1.03, Nucleated RBC % 0, Sodium 139, Potassium 4.2, Chloride 110 H, Carbon Dioxide 24.0, Anion Gap 5, BUN 33 H, Creatinine 2.42 H, Estim Creat Clear Calc 32.68, Est GFR (MDRD) Af Amer 35 L, Est GFR (MDRD) Non-Af 29 L, BUN/Creatinine Ratio 13.6, Glucose 123 H, Calcium 8.3 L, Total Bilirubin 0.60, AST 8 L, ALT 10 L, Alkaline Phosphatase 114, Total Protein 5.5 L, Albumin 2.0 L, Globulin 3.5, Albumin/Globulin Ratio 0.6 L, Cortisol 3.50 05/15/23 07:00: Cortisol 16.70 Physical Exam Const alert and oriented x3 Nutritional Appearance: morbidly obese HEENT External Ear: external ears normal Eyes no scleral icterus Neck no lymphadenopathy Resp clear to auscultation bilaterally Cardio regular rate GI non-tender and non-distended GI Narrative: obese Auscultation: normoactive bowel sounds Palpation: soft Extremity Extremity Narrative: decreased leg edema, less LUE swelling Skin No no rashes or lesions noted General Skin Exam: Negative for ecchymosis Assessment & Plan Assessment/Plan (1) Lactic acidosis: (2) History of liver transplant: PLAN: Plan Patient is a 62-year-old gentleman with multiple comorbidities including morbid obesity resulting in chronic kidney disease, fatty liver disease, alpha-1 antitrypsin deficiency (unknown genotype at this time) resulting in the need for liver transplant. He presented with weakness shortness of breath, altered mental status. 3. Transient focal weakness-possibly secondary to Hyperammonemia as he has not been complaint with Lactulose. His ammonia has has improved since being in the hospital. He is to take lactulose 30 cc 4 times a day and recommend to start him on Xifaxan therapy 550 mg twice a day. Azithromyocin 500mg daily, Flagyl 500 mg twice daily and possibly neomycin 500 mg once a day due to his kidney function. 5.? History of liver transplant ? In 2017 on account of NAFLD as well as alpha-1 antitrypsin deficiency.? Patient is on Bactrim as well as tacrolimus did continue. i Charges/Coding Visit Charges Inpatient E&M: 80957 Subs Hosp L3
[2023-05-15] MEDS: Sodium Ferric Gluconat/Sucrose 250 MG in 0.9% Normal Saline (250mL Bag) 250 ML 135 MG IV (18:41)
[2023-05-16] MEDS: Metoclopramide 10 MG/2 ML Vial 5 MG IV ×4 (00:01→17:42)
[2023-05-16] MEDS: oxyCODONE 5 MG Tablet 10 MG PO ×3 (00:06→17:41)
[2023-05-16 04:13] VITALS: BP 105/45; PULSE 72; RESP 16; TEMP 36.8; O2SAT 96
[2023-05-16] MEDS: Lactulose 20 GM/30 ML UDC PO ×2 (06:23→22:09)
[2023-05-16] MEDS: Levothyroxine 25 MCG TABLET PO (06:23)
[2023-05-16] MEDS: 0.9% Saline Lock 10 ML Syringe IV ×5 (06:24→17:41)
[2023-05-16 06:27] LABS: Absolute Lymphocyte Count 1.48 X10^3/uL (0.83-4.51); Absolute Neutrophil Count 3.5 X10^3/uL (2.0-7.7); Basophil# 0.03 X10^3/uL; Basophil% 0.5 % (0-1); Eosinophil# 0.07 X10^3/uL; Eosinophils% 1.2 % (0-5); Hematocrit 25.9 % (40-54); Hemoglobin 8.2 g/dL (13.0-16.5); Lymphocyte # 1.48 X10^3/ul (0.83-4.51); Lymphocyte % 25.6 % (19-41); Mean Corp Hgb Conc 31.7 g/dL (32-36); Mean Corpuscular Hgb 30.5 pg (27.0-32.0); Mean Corpuscular Volume 96.3 fL (80-94); Mean Platelet Vol. 10.4 fl (6.2-12.0); Monocyte# 0.67 X10^3/uL; Monocyte% 11.6 % (0-10); NRBC Flagged by Analyzer 0 % (0-5); Neutrophil # 3.53 X10^3/uL (2.7-7.7); Neutrophil % 60.9 % (47-70); Platelet Count 242 K/mm3 (150-450); RBC Distribution Width CV 14.7 % (11.6-14.6); RBC Distribution Width SD 51.7 fl (35.1-43.9); Red Blood Count 2.69 M/mm3 (4.6-6.2); White Blood Count 5.8 K/mm3 (4.4-11.0)
[2023-05-16 06:59] LABS: BUN 31 mg/dL (7-18); BUN/Creat Ratio 12.8 RATIO (10-20); Calcium,Total 8.3 mg/dL (8.5-10.1); Chloride 111 mmol/L (98-107); Creatinine, Serum 2.42 mg/dL (0.70-1.30); EST Glomerular Filtration Rate 29 mL/min (>60); Est Glom Filt Rate - Afr Amer 35 mL/min (>60); Estimated Creatinine Clearance 32.68 ml/min; Glucose 130 mg/dL (74-106); Phosphorus 2.6 mg/dL (2.5-4.9); Potassium 3.9 mmol/L (3.5-5.1); Sodium Level 141 mmol/L (136-145)
--- NOTE | 2023-05-16 07:38 | PN.HOSP_ITS ---
Reason for Visit Reason for Visit: Diagnoses Iron deficiency anemia, unspecified (05/14/23) Morbid (severe) obesity due to excess calories (05/14/23) Acidosis, unspecified (05/14/23) Atherosclerotic heart disease of [place] coronary artery without angina pectoris (05/14/23) Paroxysmal atrial fibrillation (05/14/23) Chronic diastolic (congestive) heart failure (05/14/23) Hypotension, unspecified (05/14/23) Nonalcoholic steatohepatitis (FELIPE) (05/14/23) Hepatic encephalopathy (05/14/23) Acute kidney failure, unspecified (05/14/23) Chronic kidney disease, stage 3b (05/14/23) Chronic kidney disease, unspecified (05/14/23) Other malaise (05/14/23) Liver transplant status (05/14/23) Subjective Subjective More alert today. Objective Data Objective Data Vital Signs: Vital Signs Temp Pulse Resp BP Pulse Ox O2 Del Method 36.8 C 72 16 105/45 L 96 Room Air 05/16/23 04:13 05/16/23 04:13 05/16/23 04:13 05/16/23 04:13 05/16/23 04:13 05/16/23 04:13 Oxygen Delivery Method Room Air Weight: 169.009 kg Body Mass Index (BMI) 53.4 Intake & Output: Intake and Output for Last 24 Hours 05/14/23 05/15/23 05/16/23 23:59 23:59 23:59 Intake Total 1000 / 1000 1020 / 1140 240 / 240 Output Total 2950 / 4300 1900 / 1900 Balance 1000 / 600 -1930 / -3160 -1660 / -1660 Lab / Micro Data 05/16/23 06:00 05/16/23 06:00 Labs: Laboratory Results - last 24 hr 05/15/23 05:55: Cortisol 3.50 05/15/23 07:00: Cortisol 16.70 05/16/23 06:00: WBC 5.8, RBC 2.69 L, Hgb 8.2 L, Hct 25.9 L, MCV 96.3 H, MCH 30.5, MCHC 31.7 L, RDW Std Deviation 51.7 H, RDW Coeff of Maciel 14.7 H, Plt Count 242, MPV 10.4, Immature Gran % (Auto) 0.200, Neut % (Auto) 60.9, Lymph % (Auto) 25.6, [place] % (Auto) 11.6 H, Eos % (Auto) 1.2, Baso % (Auto) 0.5, Absolute Neuts (auto) 3.5, Absolute Lymphs (auto) 1.48, Nucleated RBC % 0, Sodium 141, Potassium 3.9, Chloride 111 H, Carbon Dioxide 25.0, BUN 31 H, Creatinine 2.42 H, Estim Creat Clear Calc 32.68, Est GFR (MDRD) Af Amer 35 L, Est GFR (MDRD) Non-Af 29 L, BUN/Creatinine Ratio 12.8, Glucose 130 H, Calcium 8.3 L, Phosphorus 2.6, Ammonia 54.0 H, Albumin 2.0 L Physical Exam Const alert and no apparent distress Eyes Eyes Narrative: no icterus. GI normal to inspection, nondistended, normoactive bowel sounds GI Narrative: obese. Extremity General Extremity: edema right upper extremity severe and bilateral lower extremity Details: severe Neuro oriented x3 and moves all extremities Speech: speech normal Psych affect normal Assessment & Plan Assessment/Plan (1) Hepatic encephalopathy: PLAN: Resolved Ammonia was 128 upon arrival. Patient's mental status has improved since receiving lactulose. Patient had been on rifaximin in the past but that was discontinued when his creatinine was going up in the past but not restarted on anything else. Will continue with lactulose Seen by GI, who recommends adding rifaxamin 550 BID. (2) Acute kidney injury: PLAN: Improved Hold sacubitril/valsartan Check urine studies. Check kidney ultrasound Consult nephrology. Discussed with the patient and his family that I cannot rule out the patient may require dialysis or ultrafiltration. Renal ultrasounds no acute process. (3) Hypotension: QUALIFIERS: Hypotension type: unspecified hypotension type Qualified Code(s): I95.9 - Hypotension, unspecified PLAN: Unclear significance as patient is clearly volume overloaded Hold amlodipine, sacubitril/valsartan, decrease metoprolol from 50 to 25. ACTH stim test: baseline cortisol low, but WNL, testing cortisol 16.7. Check DHEAS, if normal, would rule out adrenal insuffiency. (4) Liver transplant recipient: PLAN: Secondary to FELIPE/alpha 1 antitrypsin deficiency. Check tacrolimus level Continue with tacrolimus and ursodiol Patient has had elevated ammonia since his transplant 2017 No clinical evidence of fulminant liver failure at this time (5) Debility: PLAN: PT OT evaluate and treat Cannot rule out intermediate facility placement at this time. (6) Anasarca: PLAN: Marked Weight has steadily gone up since October. He was 151.3 kg at that time, now up to 169 Discussed with thepatient about changing to IV furosemide to better optimize his weight, cautiously. He is agreable Changed to IV furosmide. If tolerates, could consider gtt. PLAN: Plan Chronic conditions * Left humerus fracture: Sustained in March. Patient was casted and put in a brace. Has been told that it is healing but patient has not been released to full weightbearing status at this time. Patient will be nonweightbearing and will require further orthopedic follow-up. * Hypothyroidism: Continue with levothyroxine * Anemia of chronic disease: Continue with iron. * A-fib: Continue with amiodarone, metoprolol and anticoagulation with apixaban * Morbid obesity: BMI of 53.3 kg/m?. VTE prophylaxis: Not indicated as patient is already on apixaban. Charges/Coding Visit Charges Inpatient E&M: 02891 Subs Hosp L2
[2023-05-16 09:00] VITALS: BP 117/42; PULSE 60; RESP 18; TEMP 36.3; O2SAT 97
[2023-05-16] MEDS: rifAXIMin 550 MG Tablet PO ×2 (09:24→22:10)
[2023-05-16] MEDS: Smz/Tmp Ds Tablet 0.5 TABLET PO (09:24)
[2023-05-16] MEDS: Iron Polysaccharide Complex 150 MG CAPSULE PO (09:24)
[2023-05-16] MEDS: Tacrolimus 0.5 MG Capsule PO ×2 (09:25→21:18)
[2023-05-16] MEDS: Amiodarone 200 MG Tablet PO (09:25)
[2023-05-16] MEDS: APIXABAN 5 MG TABLET PO ×2 (09:26→22:09)
[2023-05-16] MEDS: Ursodiol 250 MG Tablet PO ×2 (09:29→22:10)
[2023-05-16] MEDS: metroNIDAZOLE 500 MG Tablet PO ×2 (09:29→22:09)
[2023-05-16 09:31] VITALS: PULSE 60
[2023-05-16] MEDS: Miconazole Nitrate 43 GM Bottle 1 APPLIC TOPICAL (09:32)
[2023-05-16] MEDS: Furosemide 40 MG/4 ML Vial IV ×2 (11:05→17:42)
--- NOTE | 2023-05-16 12:14 | PN.RENAL_ITS ---
Subjective Subjective doing well. BM 2-3x/day ammonia down to 54 on lactulose. Creatinine 2.4, diuresing well on po lasix. Switched to iv lasix for persistent edema. Objective Data Objective Data Vital Signs: Vital Signs Temp Pulse Resp BP Pulse Ox O2 Del Method 97.3 F L 60 18 117/42 L 97 Room Air 05/16/23 09:00 05/16/23 09:31 05/16/23 09:00 05/16/23 09:00 05/16/23 09:00 05/16/23 09:00 Oxygen Delivery Method Room Air Weight: 169.009 kg Body Mass Index (BMI) 53.4 Intake & Output: Intake and Output for Last 24 Hours 05/14/23 05/15/23 05/16/23 23:59 23:59 23:59 Intake Total 1000 / 1000 1020 / 1140 240 / 240 Output Total 2950 / 4300 1900 / 1900 Balance 1000 / 600 -1930 / -3160 -1660 / -1660 Lab / Micro Data 05/16/23 06:00 05/16/23 06:00 Labs: Laboratory Results - last 24 hr 05/16/23 06:00: WBC 5.8, RBC 2.69 L, Hgb 8.2 L, Hct 25.9 L, MCV 96.3 H, MCH 30.5, MCHC 31.7 L, RDW Std Deviation 51.7 H, RDW Coeff of Maciel 14.7 H, Plt Count 242, MPV 10.4, Immature Gran % (Auto) 0.200, Neut % (Auto) 60.9, Lymph % (Auto) 25.6, [place] % (Auto) 11.6 H, Eos % (Auto) 1.2, Baso % (Auto) 0.5, Absolute Neuts (auto) 3.5, Absolute Lymphs (auto) 1.48, Nucleated RBC % 0, Sodium 141, [place] um 3.9, Chloride 111 H, Carbon Dioxide 25.0, BUN 31 H, Creatinine 2.42 H, Estim Creat Clear Calc 32.68, Est GFR (MDRD) Af Amer 35 L, Est GFR (MDRD) Non-Af 29 L, BUN/Creatinine Ratio 12.8, Glucose 130 H, Calcium 8.3 L, Phosphorus 2.6, Ammonia 54.0 H, Albumin 2.0 L Physical Exam Const alert and oriented x3 Resp clear to auscultation bilaterally Cardio regular rate GI non-tender and non-distended GI Narrative: obese Palpation: soft Extremity General Extremity: edema bilateral lower extremity Neuro CN's II-XII intact bilaterally Psych cooperative Assessment & Plan Assessment/Plan (1) Acute on chronic kidney failure: QUALIFIERS: Acute renal failure type: unspecified Chronic kidney disease stage 3 subtype: stage 3b (GFR 30-44) PLAN: Creatinine 2.42 today baseline creatinine 1.8 likely hemodynamic changes, prerenal azotemia on diuretics, Entresto, HE with poor intake, hypotension and Bactrim. Monitor while on iv lasix. Urine output good. Follow daily (2) Stage 3b chronic kidney disease (CKD): PLAN: Creatinine baseline 1.6 to 1.8 (3) FELIPE (nonalcoholic steatohepatitis): PLAN: s/p liver tx (4) Debility: PLAN: wheelchair bound (5) Hepatic encephalopathy: PLAN: improved ammonia level. Continue lactulose. Ok to take xifaxan in CKD. Mental status back to baseline (6) Liver transplant recipient: PLAN: on prograf with bactrim (7) Morbid obesity: (8) Coronary artery disease: QUALIFIERS: Coronary Disease-Associated Artery/Lesion type: [place] artery [place] vs. transplanted heart: enterprise heart PLAN: resume Entresto when BP stable, creatinine stable (9) Paroxysmal atrial fibrillation: (10) Chronic diastolic congestive heart failure: PLAN: resume low dose Entresto (11) Iron deficiency anemia: QUALIFIERS: Iron deficiency anemia type: unspecified iron deficiency Qualified Code(s): D50.9 - Iron deficiency anemia, unspecified PLAN: continue oral iron. Add iv iron
[2023-05-16 15:00] VITALS: BP 113/59; PULSE 77; RESP 18; TEMP 36.2; O2SAT 98
[2023-05-16 21:05] VITALS: BP 128/44; PULSE 77; RESP 18; TEMP 36.6; O2SAT 99
[2023-05-16 21:10] VITALS: BMI 52.9
[2023-05-16 22:10] VITALS: BP 128/44; PULSE 77
[2023-05-17] VITALS (12 sets, daily range): BP systolic 98–119; BP diastolic 50–60; PULSE 71–157; RESP 18–20; TEMP 36.6–37.1; O2SAT 94–98
[2023-05-17] MEDS: 0.9% Saline Lock 10 ML Syringe IV ×7 (00:55→23:28)
[2023-05-17] MEDS: Metoclopramide 10 MG/2 ML Vial 5 MG IV ×5 (00:55→23:28)
[2023-05-17 04:07] LABS: Tacrolimus (FK506) 7.2 ng/mL (2.0-20.0)
[2023-05-17 04:07] LABS: DHEA Sulfate 11.1 ug/dL (48.9-344.2)
--- NOTE | 2023-05-17 05:00 | EKG12_ITS ---
Test Reason : TACHYCARDIA Blood Pressure : / mmHG Vent. Rate : 123 BPM Atrial Rate : 000 BPM P-R Int : 000 ms QRS Dur : 088 ms QT Int : 316 ms P-R-T Axes : 000 -52 031 degrees QTc Int : 452 ms Atrial fibrillation with rapid ventricular response Left axis deviation Low voltage QRS Inferior infarct , age undetermined Cannot rule out Anterior infarct , age undetermined Lateral injury pattern Confirmed by SAHIL SHIPMAN, ROULA ([id number]), photograph editor HARPER LERNER ([id number]) on 06/11/2023 11:52:11 AM Referred By: ROWDY Confirmed By:ROULA BAXTER MD
[2023-05-17] MEDS: Metoprolol Tartrate 5 MG/5 ML Vial IV (05:29)
[2023-05-17] MEDS: Metoprolol Tartrate 25 MG Tablet PO ×3 (06:00→23:25)
[2023-05-17] MEDS: Lactulose 20 GM/30 ML UDC PO ×2 (06:59→23:24)
[2023-05-17] MEDS: Levothyroxine 25 MCG TABLET PO (07:45)
--- NOTE | 2023-05-17 08:01 | PN.HOSP_ITS ---
Reason for Visit Reason for Visit: Diagnoses Iron deficiency anemia, unspecified (05/14/23) Morbid (severe) obesity due to excess calories (05/14/23) Acidosis, unspecified (05/14/23) Atherosclerotic heart disease of [place] coronary artery without angina pectoris (05/14/23) Paroxysmal atrial fibrillation (05/14/23) Chronic diastolic (congestive) heart failure (05/14/23) Hypotension, unspecified (05/14/23) Nonalcoholic steatohepatitis (FELIPE) (05/14/23) Hepatic encephalopathy (05/14/23) Acute kidney failure, unspecified (05/14/23) Chronic kidney disease, stage 3b (05/14/23) Chronic kidney disease, unspecified (05/14/23) Other malaise (05/14/23) Generalized edema (05/14/23) Liver transplant status (05/14/23) Subjective Subjective Feels well. Decreased LE edema. Objective Data Objective Data Vital Signs: Vital Signs Temp Pulse Resp BP Pulse Ox O2 Del Method 36.6 C 106 H 20 H 105/60 94 Room Air 05/17/23 04:51 05/17/23 07:06 05/17/23 04:51 05/17/23 07:06 05/17/23 05:36 05/17/23 05:36 Oxygen Delivery Method Room Air Weight: 167.8 kg Body Mass Index (BMI) 52.9 Intake & Output: Intake and Output for Last 24 Hours 05/15/23 05/16/23 05/17/23 23:59 23:59 23:59 Intake Total 1020 / 1140 950 / 950 70 / 70 Output Total 2950 / 4300 5380 / 5380 1200 / 1200 Balance -1930 / -3160 -4430 / -4430 -1130 / -1130 Lab / Micro Data 05/16/23 06:00 05/17/23 07:00 Labs: Laboratory Results - last 24 hr 05/14/23 10:10: Tacrolimus 7.2 05/15/23 07:00: DHEA Sulfate 11.1 L Physical Exam Const alert and no apparent distress HEENT head/scalp atraumatic and moist oral mucous membranes Resp normal respiratory effort, no retractions, no use of accessory muscles and clear to auscultation bilaterally Cardio regular rate, regular rhythm, S1 normal heart sound and S2 normal heart sound GI normal to inspection, nondistended, normoactive bowel sounds GI Narrative: obese. Extremity normal to inspection and full ROM Assessment & Plan Assessment/Plan (1) Hepatic encephalopathy: PLAN: Resolved Ammonia was 128 upon arrival. Patient's mental status has improved since receiving lactulose. Patient had been on rifaximin in the past but that was discontinued when his creatinine was going up in the past but not restarted on anything else. Will continue with lactulose Seen by GI, who recommends adding rifaxamin 550 BID. (2) Acute kidney injury: PLAN: Improved Hold sacubitril/valsartan Check urine studies. Check kidney ultrasound Consult nephrology. Discussed with the patient and his family that I cannot rule out the patient may require dialysis or ultrafiltration. Renal ultrasounds no acute process. (3) Hypotension: QUALIFIERS: Hypotension type: unspecified hypotension type Qualified Code(s): I95.9 - Hypotension, unspecified PLAN: Resolved Unclear significance as patient is clearly volume overloaded Hold amlodipine, sacubitril/valsartan, decrease metoprolol from 50 to 25. ACTH stim test: baseline cortisol low, but WNL, testing cortisol 16.7. Check DHEAS, if normal, would rule out adrenal insuffiency. (4) Liver transplant recipient: PLAN: Secondary to FELIPE/alpha 1 antitrypsin deficiency. Check tacrolimus level Continue with tacrolimus and ursodiol Patient has had elevated ammonia since his transplant 2017 No clinical evidence of fulminant liver failure at this time (5) Debility: PLAN: PT OT evaluate and treat Cannot rule out [facility] facility placement at this time. (6) Anasarca: PLAN: Marked Weight has steadily gone up since October. He was 151.3 kg at that time, now up to 169 Discussed with thepatient about changing to IV furosemide to better optimize his weight, cautiously. He is agreable Changed to IV furosmide. Diuresing well. Continue IV diuresis. PLAN: Plan Chronic conditions * Left humerus fracture: Sustained in March. Patient was casted and put in a brace. Has been told that it is healing but patient has not been released to full weightbearing status at this time. Patient will be nonweightbearing and will require further orthopedic follow-up. * Hypothyroidism: Continue with levothyroxine * Anemia of chronic disease: Continue with iron. * A-fib: Continue with amiodarone, metoprolol and anticoagulation with apixaban * Morbid obesity: BMI of 53.3 kg/m?. VTE prophylaxis: Not indicated as patient is already on apixaban. Charges/Coding Visit Charges Inpatient E&M: 50167 Subs Hosp L2
[2023-05-17 08:07] LABS: Anion Gap 5 (5-15); BUN 28 mg/dL (7-18); BUN/Creat Ratio 12.4 RATIO (10-20); Calcium,Total 8.5 mg/dL (8.5-10.1); Chloride 113 mmol/L (98-107); Creatinine, Serum 2.25 mg/dL (0.70-1.30); EST Glomerular Filtration Rate 32 mL/min (>60); Est Glom Filt Rate - Afr Amer 38 mL/min (>60); Estimated Creatinine Clearance 35.15 ml/min; Glucose 114 mg/dL (74-106); Potassium 3.8 mmol/L (3.5-5.1); Sodium Level 143 mmol/L (136-145)
[2023-05-17] MEDS: Tacrolimus 0.5 MG Capsule PO ×2 (09:31→20:57)
[2023-05-17] MEDS: Amiodarone 200 MG Tablet PO (09:32)
[2023-05-17] MEDS: APIXABAN 5 MG TABLET PO ×2 (09:32→23:25)
[2023-05-17] MEDS: Ursodiol 250 MG Tablet PO ×2 (09:32→23:26)
[2023-05-17] MEDS: Miconazole Nitrate 43 GM Bottle 1 APPLIC TOPICAL ×2 (09:32→23:30)
[2023-05-17] MEDS: Smz/Tmp Ds Tablet 0.5 TABLET PO (09:32)
[2023-05-17] MEDS: Iron Polysaccharide Complex 150 MG CAPSULE PO (09:33)
[2023-05-17] MEDS: rifAXIMin 550 MG Tablet PO ×2 (09:33→23:26)
[2023-05-17] MEDS: Furosemide 40 MG/4 ML Vial IV ×2 (09:42→17:16)
[2023-05-17] MEDS: metroNIDAZOLE 500 MG Tablet PO ×2 (09:45→23:25)
--- NOTE | 2023-05-17 15:05 | CASEMGMT ---
RN CM into pt room, pt states he still plans to go home with [facility]. Green sheet on chart in case pt dc's over the weekend.
[2023-05-18] VITALS (8 sets, daily range): BP systolic 88–141; BP diastolic 43–69; PULSE 64–97; RESP 16–18; TEMP 36.6–37.1; O2SAT 99–100
[2023-05-18] MEDS: oxyCODONE 5 MG Tablet 10 MG PO (03:48)
[2023-05-18] MEDS: Levothyroxine 25 MCG TABLET PO (05:47)
[2023-05-18] MEDS: Lactulose 20 GM/30 ML UDC PO (05:47)
[2023-05-18] MEDS: 0.9% Saline Lock 10 ML Syringe IV ×2 (05:49→11:42)
[2023-05-18] MEDS: Metoclopramide 10 MG/2 ML Vial 5 MG IV ×2 (05:49→11:42)
--- NOTE | 2023-05-18 07:42 | PN.HOSP_ITS ---
Reason for Visit Reason for Visit: Diagnoses Iron deficiency anemia, unspecified (05/14/23) Morbid (severe) obesity due to excess calories (05/14/23) Acidosis, unspecified (05/14/23) Atherosclerotic heart disease of [place] coronary artery without angina pectoris (05/14/23) Paroxysmal atrial fibrillation (05/14/23) Chronic diastolic (congestive) heart failure (05/14/23) Hypotension, unspecified (05/14/23) Nonalcoholic steatohepatitis (FELIPE) (05/14/23) Hepatic encephalopathy (05/14/23) Acute kidney failure, unspecified (05/14/23) Chronic kidney disease, stage 3b (05/14/23) Chronic kidney disease, unspecified (05/14/23) Other malaise (05/14/23) Generalized edema (05/14/23) Liver transplant status (05/14/23) Subjective Subjective Feels well. Ready to go home. Decreased edema in LE and LUE. Objective Data Objective Data Vital Signs: Vital Signs Temp Pulse Resp BP Pulse Ox O2 Del Method O2 Flow Rate 36.6 C 64 18 91/69 99 Room Air 2 05/18/23 05:42 05/18/23 05:42 05/18/23 05:42 05/18/23 05:42 05/18/23 05:42 05/18/23 05:42 05/18/23 02:51 Oxygen Flow Rate (L/min) 2 Oxygen Delivery Method Room Air Weight: 167.8 kg Body Mass Index (BMI) 52.9 Intake & Output: Intake and Output for Last 24 Hours 05/16/23 05/17/23 05/18/23 23:59 23:59 23:59 Intake Total 950 / 950 970 / 970 70 / 70 Output Total 5380 / 5380 3500 / 3500 800 / 800 Balance -4430 / -4430 -2530 / -2530 -730 / -730 Lab / Micro Data 05/16/23 06:00 05/18/23 07:25 Labs: Laboratory Results - last 24 hr 05/17/23 07:00: Sodium 143, Potassium 3.8, Chloride 113 H, Carbon Dioxide 25.0, Anion Gap 5, BUN 28 H, Creatinine 2.25 H, Estim Creat Clear Calc 35.15, Est GFR (MDRD) Af Amer 38 L, Est GFR (MDRD) Non-Af 32 L, BUN/Creatinine Ratio 12.4, Gl ucose 114 H, Calcium 8.5 Physical Exam Const no apparent distress HEENT head/scalp atraumatic Extremity General Extremity: edema bilateral lower extremity Details: severe Psych affect normal Assessment & Plan Assessment/Plan (1) Hepatic encephalopathy: PLAN: Resolved Ammonia was 128 upon arrival. Patient's mental status has improved since receiving lactulose. Patient had been on rifaximin in the past but that was discontinued when his creatinine was going up in the past but not restarted on anything else. Will continue with lactulose Seen by GI, who recommends adding rifaxamin 550 BID. (2) Acute kidney injury: PLAN: Improved Hold sacubitril/valsartan Discussed with the patient and his family that I cannot rule out the patient may require dialysis or ultrafiltration. Renal ultrasounds no acute process. Follow up with Dr. Monae (3) Hypotension: QUALIFIERS: Hypotension type: unspecified hypotension type Qualified Code(s): I95.9 - Hypotension, unspecified PLAN: Resolved Unclear significance as patient is clearly volume overloaded Hold amlodipine, sacubitril/valsartan, decrease metoprolol from 50 to 25. ACTH stim test: baseline cortisol low, but WNL, testing cortisol 16.7. DHEAS low at 11.1. This with marginally low cortisol testing. Start hydrocortisone 20 in AM and 10 in evening. follow up with endocrinology as outpt. (4) Liver transplant recipient: PLAN: Secondary to FELIPE/alpha 1 antitrypsin deficiency. Check tacrolimus level Continue with tacrolimus and ursodiol Patient has had elevated ammonia since his transplant 2017 No clinical evidence of fulminant liver failure at this time (5) Debility: PLAN: PT OT evaluate and treat Cannot rule out [facility] facility placement at this time. (6) Anasarca: PLAN: Marked Weight has steadily gone up since October. He was 151.3 kg at that time, now up to 169 Discussed with the patient about changing to IV furosemide to better optimize his weight, cautiously. He is agreable Changed to IV furosmide. Diuresing well. Continue IV diuresis. DC with fluid restriction of 1.5 liters/day and increase furosemide 60 mg BID (7) Adrenal insufficiency: PLAN: Suspected with low normal cortisol and ACTH stim cortisol DHEAS low. Start hydrocortisone Follow up with endocrinology. PLAN: Plan Chronic conditions * Left humerus fracture: Sustained in March. Patient was casted and put in a brace. Has been told that it is healing but patient has not been released to full weightbearing status at this time. Patient will be nonweightbearing and will require further orthopedic follow-up. * Hypothyroidism: Continue with levothyroxine * Anemia of chronic disease: Continue with iron. * A-fib: Continue with amiodarone, metoprolol and anticoagulation with apixaban * Morbid obesity: BMI of 53.3 kg/m?. VTE prophylaxis: Not indicated as patient is already on apixaban. Discharge home w [facility]. DW pt's at bedside.
[2023-05-18 08:12] LABS: Anion Gap 4 (5-15); BUN 27 mg/dL (7-18); BUN/Creat Ratio 13.5 RATIO (10-20); Calcium,Total 8.4 mg/dL (8.5-10.1); Chloride 110 mmol/L (98-107); EST Glomerular Filtration Rate 36 mL/min (>60); Est Glom Filt Rate - Afr Amer 44 mL/min (>60); Estimated Creatinine Clearance 39.54 ml/min; Glucose 112 mg/dL (74-106); Potassium 3.7 mmol/L (3.5-5.1); Sodium Level 143 mmol/L (136-145)
[2023-05-18] MEDS: rifAXIMin 550 MG Tablet PO (08:44)
[2023-05-18] MEDS: Tacrolimus 0.5 MG Capsule PO (08:45)
[2023-05-18] MEDS: metroNIDAZOLE 500 MG Tablet PO (08:45)
[2023-05-18] MEDS: Metoprolol Tartrate 25 MG Tablet PO (08:45)
[2023-05-18] MEDS: Ursodiol 250 MG Tablet PO (08:45)
[2023-05-18] MEDS: Smz/Tmp Ds Tablet 0.5 TABLET PO (08:46)
[2023-05-18] MEDS: Amiodarone 200 MG Tablet PO (08:46)
[2023-05-18] MEDS: Iron Polysaccharide Complex 150 MG CAPSULE PO (08:47)
[2023-05-18] MEDS: APIXABAN 5 MG TABLET PO (08:47)
[2023-05-18] MEDS: Miconazole Nitrate 43 GM Bottle 1 APPLIC TOPICAL (08:48)
[2023-05-18] MEDS: Furosemide 40 MG/4 ML Vial IV (08:48)
[2023-05-18] MEDS: Hydrocortisone 10 MG Tablet 20 MG PO (10:22)
--- NOTE | 2023-05-18 12:15 | DS.PCM_ITS ---
Providers Date of Admission: 05/14/23 Primary Care Physician: Dr. Lance Bose MD Consultations 05/14/23 14:30 Consult: Nephrology Routine Consulting Provider: Verenice Monae Reason for Consult: AISSATOU EMERGENT Consult: No Notified: Yes Date Notified: 05/14/23 Time Notified: 15:03 Method of Notification: Text 05/14/23 14:42 Consult: Gastroenterology Routine Consulting Provider: Cory Bales Reason for Consult: liver failure EMERGENT Consult: No Notified: Yes Date Notified: 05/14/23 Time Notified: 14:52 Method of Notification: Text Reason For Visit: HEPATIC ENCEPHALOPATHY Diagnosis Discharge Diagnosis (1) Hepatic encephalopathy: Status: Acute Code(s): K76.82 - Hepatic encephalopathy Plan: Resolved Ammonia was 128 upon arrival. Patient's mental status has improved since receiving lactulose. Patient had been on rifaximin in the past but that was discontinued when his creatinine was going up in the past but not restarted on anything else. Will continue with lactulose Seen by GI, who recommends adding rifaxamin 550 BID. (2) Acute kidney injury: Status: Resolved Code(s): N17.9 - Acute kidney failure, unspecified Plan: Improved Hold sacubitril/valsartan Discussed with the patient and his family that I cannot rule out the patient may require dialysis or ultrafiltration. Renal ultrasounds no acute process. Follow up with Dr. Monae (3) Hypotension: Status: Acute Code(s): I95.9 - Hypotension, unspecified Qualifiers: Hypotension type: unspecified hypotension type Qualified Code(s): I95.9 - Hypotension, unspecified Plan: Resolved Unclear significance as patient is clearly volume overloaded Hold amlodipine, sacubitril/valsartan, decrease metoprolol from 50 to 25. ACTH stim test: baseline cortisol low, but WNL, testing cortisol 16.7. DHEAS low at 11.1. This with marginally low cortisol testing. Start hydrocortisone 20 in AM and 10 in evening. follow up with endocrinology as outpt. (4) Liver transplant recipient: Status: Inactive Code(s): Z94.4 - Liver transplant status Plan: Secondary to FELIPE/alpha 1 antitrypsin deficiency. Check tacrolimus level Continue with tacrolimus and ursodiol Patient has had elevated ammonia since his transplant 2017 No clinical evidence of fulminant liver failure at this time (5) Debility: Status: Acute Code(s): R53.81 - Other malaise Plan: PT OT evaluate and treat Cannot rule out care home facility placement at this time. (6) Anasarca: Status: Acute Code(s): R60.1 - Generalized edema Plan: Marked Weight has steadily gone up since October. He was 151.3 kg at that time, now up to 169 Discussed with the patient about changing to IV furosemide to better optimize his weight, cautiously. He is agreable Changed to IV furosmide. Diuresing well. Continue IV diuresis. DC with fluid restriction of 1.5 liters/day and increase furosemide 60 mg BID (7) Adrenal insufficiency: Status: Acute Code(s): E27.40 - Unspecified adrenocortical insufficiency Plan: Suspected with low normal cortisol and ACTH stim cortisol DHEAS low. Start hydrocortisone Follow up with endocrinology. Plan Chronic conditions * Left humerus fracture: Sustained in March. Patient was casted and put in a brace. Has been told that it is healing but patient has not been released to full weightbearing status at this time. Patient will be nonweightbearing and will require further orthopedic follow-up. * Hypothyroidism: Continue with levothyroxine * Anemia of chronic disease: Continue with iron. * A-fib: Continue with amiodarone, metoprolol and anticoagulation with apixaban * Morbid obesity: BMI of 53.3 kg/m?. VTE prophylaxis: Not indicated as patient is already on apixaban. Discharge home w [facility]. DW pt's at bedside. Medications at Discharge Home Medications apixaban 5 mg tablet (Eliquis) 5 mg PO BID BLOOD THINNER 07/20/22 allopurinol 300 mg tablet 300 mg PO DAILY GOUT 11/04/22 tacrolimus 0.5 mg capsule, immediate-release 0.5 mg PO 0900,2100 LIVER TRANS PLANT 11/06/22 metoprolol tartrate 50 mg tablet 50 mg PO BID BLOOD PRESSURE #180 tabs 11/27/22 nitroglycerin 0.4 mg sublingual tablet 0.4 mg sublingual Q5M PRN CHEST PAIN #25 tabs 11/27/22 citalopram 10 mg tablet 10 mg PO DAILY MOOD 02/08/23 amiodarone 200 mg tablet 200 mg PO DAILY BLOOD PRESSURE 02/14/23 ursodiol 300 mg capsule 300 mg PO BID GALLSTONES 02/14/23 prochlorperazine maleate 5 mg tablet 5 mg PO Q6H PRN NAUSEA/VOMITING 03/10/23 sulfamethoxazole 400 mg-trimethoprim 80 mg tablet 1 tab PO DAILY LIVER TRANSPLANT 04/11/23 amlodipine 5 mg tablet 5 mg PO DAILY BLOOD PRESSURE 04/24/23 famotidine 20 mg tablet 20 mg PO Q12H ACID REFLUX 04/24/23 levothyroxine 25 mcg tablet 25 mcg PO DAILY THYROID 04/24/23 oxycodone 10 mg tablet 10 mg PO TID PRN BTP 04/24/23 polysaccharide iron complex 150 mg iron capsule (Ferrex) 150 mg PO DAILY supplment 05/14/23 sacubitril 24 mg-valsartan 26 mg tablet (Entresto) 1 tab PO BID heart 05/14/23 furosemide 20 mg tablet 60 mg (3 x 20 mg) PO BID #180 tabs 05/18/23 hydrocortisone 10 mg tablet 10 mg PO .complex #90 tabs 05/18/23 lactulose 20 gram/30 mL oral solution 20 g (30 mL) PO TID #1,200 mL 05/18/23 potassium chloride 20 mEq tablet,extended release(part/cryst) (Klor-Con M) 20 meq PO DAILY #30 tabs 05/18/23 rifaximin 550 mg tablet (Xifaxan) 550 mg PO BID #60 tabs 05/18/23 Hospital Course Operations None Procedures None Summary of Care Provided Minutes Spent on Discharge: 40 Hospital Course: Patient presents with confusion. Patient found to be in hepatic encephalopathy with an ammonia level of 128. Patient had been on rifaximin in the past but was discontinued due to concern for his kidney function and was not restarted on lactulose. Patient over the past several weeks has been having waxing waning confusion but is progressive gotten worse. Patient was started on lactulose and mental status did improve. Patient was seen by gastroenterology and recommended starting rifaximin. Patient has remained better and subsequent ammonia level was 54. Patient has slowly put on weight as well and has had increased edema in his lower extremities, abdomen and left upper extremity. Patient's kidney function was abnormal coming in here and we did discuss with him about diuresis with IV furosemide. He was agreeable and the patient was diuresed. Patient lost over 8 L of fluid while he was here. Patient does take 40 mg of furosemide twice daily at home and will increase that to 60 twice daily. Patient has had low blood pressure. Cortisol stim test was performed and showed low normal cortisol as well as subsequent cortisol after cosyntropin. And I did check a DH EAS level which was also low. Very concerning the patient does have adrenal insufficiency and patient has been started on hydrocortisone. Has been recommended that the patient follow-up with endocrinology. Weight / BMI Weight Weight: 167.8 kg Body Mass Index (BMI) 52.9 ABG / Lab / Microbiology Data 05/16/23 06:00 05/18/23 07:25 Laboratory: Laboratory Results - last 24 hr 05/18/23 07:25: Sodium 143, Potassium 3.7, Chloride 110 H, Carbon Dioxide 29.0, Anion Gap 4 L, BUN 27 H, Creatinine 2.00 H, Estim Creat Clear Calc 39.54, Est GFR (MDRD) Af Amer 44 L, Est GFR (MDRD) Non-Af 36 L, BUN/Creatinine Ratio 13.5, Glucose 112 H, Calcium 8.4 L D/C Instructions Discharge Diet: 2000 Calorie Control Diet and - (1.5 liters (1500 mL) of IVF/day. ) Weight Bearing Status: No weight bearing Keep extremity elevated above heart level: Left Arm Call your doctor if you observe: - (confusion. ) Meaningful Use Info Meaningful Use Diagnoses (Choose all that apply): None applicable Discharge Plan Admission Admit Date/Time: 05/14/23 11:35 Primary Reason for Your Visit: hepatic encephalopathy. anasarca. Attending Provider: Claudio Rice Primary Care Provider: Lance Bose Chi Consulting Providers: Cory Bales; Verenice Monae Instructions Additional Instructions / Restrictions: You presented with confusion due to hepatic encephalopathy with very high ammonia level. You need to continue with lactulose and rifaximin to help with t hat. Please follow-up with Dr. Bales of gastroenterology. He responded well with furosemide (Lasix) through the IV in regards to removing fluid. I have increased your furosemide dosing from 40 to 60 mg twice daily. Very important that we do monitor your kidney function please follow-up Dr. Monae for your routine follow-ups. Discharge Orders/Prescriptions Prescriptions: New hydrocortisone 10 mg Tablet 10 mg PO .complex Qty: 90 0RF Rx Instructions: 2 tabs daily in the morning, then 1 tab daily in the evening. lactulose 20 gram/30 mL Solution 20 g PO TID Qty: 1200 0RF Xifaxan 550 mg Tablet 550 mg PO BID Qty: 60 0RF furosemide 20 mg tablet 60 mg PO BID Qty: 180 0RF potassium chloride [Klor-Con M20] 20 mEq tablet,ER particles/crystals 20 meq PO DAILY Qty: 30 0RF Continued nitroglycerin 0.4 mg tablet, sublingual 0.4 mg sublingual Q5M PRN (Reason: CHEST PAIN ) Qty: 25 1RF Rx Instructions: do not exceed 3 doses per episode metoprolol tartrate 50 mg tablet 50 mg PO BID Qty: 180 1RF sulfamethoxazole-trimethoprim 400-80 mg tablet 1 tab PO DAILY Eliquis 5 mg tablet 5 mg PO BID allopurinol 300 mg tablet 300 mg PO DAILY tacrolimus 0.5 mg capsule 0.5 mg PO 0900,2100 citalopram 10 mg tablet 10 mg PO DAILY amiodarone 200 mg tablet 200 mg PO DAILY ursodiol 300 mg capsule 300 mg PO BID amlodipine 5 mg tablet 5 mg PO DAILY famotidine 20 mg Tablet 20 mg PO Q12H oxycodone 10 mg tablet 10 mg PO TID PRN (Reason: BTP) Patient Comments: FAMILY [place] PER DR SOLOMON PT MAY TAKE EVERY 6 HOURS levothyroxine 25 mcg Tablet 25 mcg PO DAILY prochlorperazine maleate 5 mg Tablet 5 mg PO Q6H PRN (Reason: NAUSEA/VOMITING) polysaccharide iron complex [Ferrex 150] 150 mg iron capsule 150 mg PO DAILY Entresto 24-26 mg tablet 1 tab PO BID Discontinued polyethylene glycol 3350 [Miralax] 17 gram powder in packet 17 g PO .ONCE PRN (Reason: constipation) furosemide [Lasix] 20 mg tablet 40 mg PO BID Referrals / Follow Up: [facility] [Provider Group] - Within 1 Month [facility] [Provider Group] - 05/31/23 1:30 am [facility] [Provider Group] - Within 1 Month Verenice Monae DO [Med Staff - Consulting] - Within 2 Weeks Lance Bose Chi, MD [Primary Care Provider] - Within 2 Weeks Disposition Disposition (needs filled in before D/C Order can be placed): Home Health Service Charges/Coding Visit Charges Inpatient E&M: 24925 Disch Hosp >30min
== END 2023-05-18 13:21 | disposition home health service (06) | DRG 442 ==
LOC: ED 11:46 → MS3 11:55
PROVIDERS: Internal Medicine Nephrology; Emergency Provider Emergency Medicine; PCP Family Medicine Geriatric Medicine
DX: K76.82 Hepatic encephalopathy (principal); E72.20 Disorder of urea cycle metabolism, unspecified; N17.9 Acute kidney failure, unspecified; I13.0 Hypertensive heart and chronic kidney disease with heart failure and stage 1 through stage 4 chronic kidney disease, or unspecified chronic kidney disease; E27.40 Unspecified adrenocortical insufficiency; I50.32 Chronic diastolic (congestive) heart failure; Z68.43 Body mass index [BMI] 50.0-59.9, adult; Z94.4 Liver transplant status; D63.8 Anemia in other chronic diseases classified elsewhere; I95.9 Hypotension, unspecified; N18.32 Chronic kidney disease, stage 3b; E66.01 Morbid (severe) obesity due to excess calories; I48.0 Paroxysmal atrial fibrillation; E03.9 Hypothyroidism, unspecified; I25.10 Atherosclerotic heart disease of native coronary artery without angina pectoris; D50.9 Iron deficiency anemia, unspecified; W19.XXXD Unspecified fall, subsequent encounter; K75.81 Nonalcoholic steatohepatitis (NASH); R60.1 Generalized edema; S42.302D Unspecified fracture of shaft of humerus, left arm, subsequent encounter for fracture with routine healing; R53.81 Other malaise; Z79.01 Long term (current) use of anticoagulants; Z79.890 Hormone replacement therapy; Z79.899 Other long term (current) drug therapy; Z99.3 Dependence on wheelchair
CPT/HCPCS: 36415; 76770; 80048; 80053; 80069; 80197; 81001; 82140; 82533; 82570; 82627; 83690; 84540; 85025; 85610; 93005; 97110; 97162; 97166; 97530; 99284; J7030; J7040; J7050; 82626; A4216; J0834; J1940; J2916; J3490

== ENCOUNTER → 2023-05-20 | Outpatient (CLI) | payer MEDICARE, SELFPAY ==
--- NOTE | 2023-05-18 03:01 | EKG12_ITS ---
Test Reason : chest pressure Blood Pressure : / mmHG Vent. Rate : 085 BPM Atrial Rate : 085 BPM P-R Int : 204 ms QRS Dur : 096 ms QT Int : 438 ms P-R-T Axes : 010 -28 006 degrees QTc Int : 521 ms Sinus rhythm with marked sinus arrhythmia with Premature atrial complexes Low voltage QRS Prolonged QT Abnormal ECG When compared with ECG of 17-MAY-2023 05:07, MANUAL COMPARISON REQUIRED, DATA IS UNCONFIRMED Confirmed by SAHIL SHIPMAN, ROULA ([id number]), tape editor HARPER LERNER ([id number]) on 06/11/2023 11:51:55 AM Referred By: Allyssa Confirmed By:ROULA BAXTER MD
[2023-05-20 16:48] LABS: Absolute Lymphocyte Count 1.41 X10^3/uL (0.83-4.51); Absolute Neutrophil Count 6.2 X10^3/uL (2.0-7.7); Basophil# 0.05 X10^3/uL; Basophil% 0.6 % (0-1); Eosinophil# 0.04 X10^3/uL; Eosinophils% 0.5 % (0-5); Hematocrit 31.9 % (40-54); Hemoglobin 9.7 g/dL (13.0-16.5); Lymphocyte # 1.41 X10^3/ul (0.83-4.51); Mean Corp Hgb Conc 30.4 g/dL (32-36); Mean Corpuscular Hgb 30.1 pg (27.0-32.0); Mean Corpuscular Volume 99.1 fL (80-94); Mean Platelet Vol. 10.7 fl (6.2-12.0); Monocyte% 7.2 % (0-10); NRBC Flagged by Analyzer 0 % (0-5); Neutrophil # 6.17 X10^3/uL (2.7-7.7); Neutrophil % 74.3 % (47-70); Platelet Count 324 K/mm3 (150-450); RBC Distribution Width CV 15.6 % (11.6-14.6); RBC Distribution Width SD 54.4 fl (35.1-43.9); Red Blood Count 3.22 M/mm3 (4.6-6.2); White Blood Count 8.3 K/mm3 (4.4-11.0)
[2023-05-20 17:04] LABS: ALB/GLOB Ratio 0.6 RATIO (0.9-2.4); AST(SGOT) 14 U/L (15-37); Alanine Aminotransfer ALT/SGPT 12 U/L (16-61); Albumin, Serum 2.6 g/dL (3.2-5.0); Alkaline Phosphatase 145 U/L (45-117); Anion Gap 9 (5-15); BUN 37 mg/dL (7-18); BUN/Creat Ratio 15.6 RATIO (10-20); Calcium,Total 8.6 mg/dL (8.5-10.1); Chloride 105 mmol/L (98-107); Creatinine, Serum 2.37 mg/dL (0.70-1.30); EST Glomerular Filtration Rate 30 mL/min (>60); Est Glom Filt Rate - Afr Amer 36 mL/min (>60); Globulin 4.2 g/dL (2.2-4.2); Glucose 197 mg/dL (74-106); Phosphorus 2.9 mg/dL (2.5-4.9); Protein, Total 6.8 g/dL (6.4-8.2); Sodium Level 138 mmol/L (136-145)
[2023-05-20 17:13] LABS: BNP,B-Type NATRIURETIC PEPTIDE 733.4 pg/mL (0-100)
== END | disposition home or self-care (01) ==
LOC: POLAB3 16:16
PROVIDERS: PCP Family Medicine Geriatric Medicine; Visit Provider Family Medicine Geriatric Medicine
DX: E27.40 Unspecified adrenocortical insufficiency (principal); K76.82 Hepatic encephalopathy; I50.30 Unspecified diastolic (congestive) heart failure; E72.20 Disorder of urea cycle metabolism, unspecified
CPT/HCPCS: 36415; 80053; 82140; 83880; 84100; 85025; 93005

== ENCOUNTER → 2023-05-23 | Outpatient (CLI) | payer MEDICARE, SELFPAY ==
[2023-05-23 12:53] LABS: Albumin, Serum 2.5 g/dL (3.2-5.0); BUN 37 mg/dL (7-18); BUN/Creat Ratio 15.7 RATIO (10-20); Calcium,Total 8.9 mg/dL (8.5-10.1); Chloride 110 mmol/L (98-107); Creatinine, Serum 2.36 mg/dL (0.70-1.30); EST Glomerular Filtration Rate 30 mL/min (>60); Est Glom Filt Rate - Afr Amer 36 mL/min (>60); Glucose 123 mg/dL (74-106); Phosphorus 3.3 mg/dL (2.5-4.9); Potassium 3.8 mmol/L (3.5-5.1); Sodium Level 142 mmol/L (136-145)
== END | disposition home or self-care (01) ==
LOC: POLAB3 10:58
PROVIDERS: PCP Family Medicine Geriatric Medicine; Visit Provider Internal Medicine Nephrology
DX: N17.9 Acute kidney failure, unspecified (principal); N18.32 Chronic kidney disease, stage 3b
CPT/HCPCS: 36415; 80069

== ENCOUNTER → 2023-05-30 | Outpatient (CLI) | payer MEDICARE, SELFPAY ==
[2023-05-30 11:44] LABS: Anion Gap 7 (5-15); BUN 28 mg/dL (7-18); BUN/Creat Ratio 12.1 RATIO (10-20); Chloride 107 mmol/L (98-107); Creatinine, Serum 2.32 mg/dL (0.70-1.30); EST Glomerular Filtration Rate 30 mL/min (>60); Est Glom Filt Rate - Afr Amer 37 mL/min (>60); Glucose 136 mg/dL (74-106); Potassium 4.1 mmol/L (3.5-5.1); Sodium Level 141 mmol/L (136-145)
== END | disposition home or self-care (01) ==
LOC: LAB 10:14
PROVIDERS: PCP Family Medicine Geriatric Medicine; Referring Provider Family Medicine Geriatric Medicine; Visit Provider Family Medicine Geriatric Medicine
DX: I50.30 Unspecified diastolic (congestive) heart failure (principal)
CPT/HCPCS: 36415; 80048

== ENCOUNTER → 2023-06-03 | Outpatient (CLI) | payer MEDICARE, SELFPAY ==
[2023-06-03 10:21] LABS: Absolute Lymphocyte Count 2.12 X10^3/uL (0.83-4.51); Absolute Neutrophil Count 4.7 X10^3/uL (2.0-7.7); Basophil# 0.05 X10^3/uL; Basophil% 0.7 % (0-1); Eosinophil# 0.15 X10^3/uL; Hematocrit 36.3 % (40-54); Hemoglobin 11.2 g/dL (13.0-16.5); Lymphocyte # 2.12 X10^3/ul (0.83-4.51); Lymphocyte % 27.9 % (19-41); Mean Corp Hgb Conc 30.9 g/dL (32-36); Mean Corpuscular Hgb 30.7 pg (27.0-32.0); Mean Corpuscular Volume 99.5 fL (80-94); Mean Platelet Vol. 11.4 fl (6.2-12.0); Monocyte# 0.54 X10^3/uL; Monocyte% 7.1 % (0-10); NRBC Flagged by Analyzer 0 % (0-5); Neutrophil % 61.9 % (47-70); Platelet Count 249 K/mm3 (150-450); RBC Distribution Width CV 16.9 % (11.6-14.6); Red Blood Count 3.65 M/mm3 (4.6-6.2); White Blood Count 7.6 K/mm3 (4.4-11.0)
[2023-06-03 10:34] LABS: ALB/GLOB Ratio 0.6 RATIO (0.9-2.4); AST(SGOT) 11 U/L (15-37); Alanine Aminotransfer ALT/SGPT 14 U/L (16-61); Albumin, Serum 2.5 g/dL (3.2-5.0); Alkaline Phosphatase 143 U/L (45-117); Anion Gap 5 (5-15); BUN 36 mg/dL (7-18); BUN/Creat Ratio 14.3 RATIO (10-20); Calcium,Total 8.7 mg/dL (8.5-10.1); Chloride 104 mmol/L (98-107); Creatinine, Serum 2.51 mg/dL (0.70-1.30); EST Glomerular Filtration Rate 28 mL/min (>60); Est Glom Filt Rate - Afr Amer 34 mL/min (>60); Globulin 4.1 g/dL (2.2-4.2); Glucose 163 mg/dL (74-106); Potassium 3.9 mmol/L (3.5-5.1); Protein, Total 6.6 g/dL (6.4-8.2); Sodium Level 137 mmol/L (136-145)
== END | disposition home or self-care (01) ==
LOC: POLAB3 09:57
PROVIDERS: PCP Family Medicine Geriatric Medicine; Visit Provider Family Medicine Geriatric Medicine
DX: K75.81 Nonalcoholic steatohepatitis (NASH) (principal); N17.9 Acute kidney failure, unspecified
CPT/HCPCS: 36415; 80053; 82140; 85025

== ENCOUNTER → 2023-06-13 | Outpatient (CLI) | payer MEDICARE, SELFPAY ==
[2023-06-13 13:31] LABS: Anion Gap 7 (5-15); BUN 38 mg/dL (7-18); BUN/Creat Ratio 14.5 RATIO (10-20); Calcium,Total 8.8 mg/dL (8.5-10.1); Chloride 106 mmol/L (98-107); Creatinine, Serum 2.62 mg/dL (0.70-1.30); EST Glomerular Filtration Rate 26 mL/min (>60); Est Glom Filt Rate - Afr Amer 32 mL/min (>60); Glucose 149 mg/dL (74-106); Potassium 4.5 mmol/L (3.5-5.1); Sodium Level 138 mmol/L (136-145)
== END | disposition home or self-care (01) ==
LOC: POLAB3 11:28
PROVIDERS: PCP Family Medicine Geriatric Medicine; Visit Provider Family Medicine Geriatric Medicine
DX: I50.30 Unspecified diastolic (congestive) heart failure (principal); N18.32 Chronic kidney disease, stage 3b
CPT/HCPCS: 36415; 80048

== ENCOUNTER → 2023-06-17 | Outpatient (CLI) | payer MEDICARE, SELFPAY ==
[2023-06-17 12:35] LABS: Anion Gap 6 (5-15); BUN 42 mg/dL (7-18); BUN/Creat Ratio 14.5 RATIO (10-20); Calcium,Total 9.1 mg/dL (8.5-10.1); Chloride 105 mmol/L (98-107); EST Glomerular Filtration Rate 24 mL/min (>60); Est Glom Filt Rate - Afr Amer 29 mL/min (>60); Glucose 143 mg/dL (74-106); Potassium 4.2 mmol/L (3.5-5.1); Sodium Level 139 mmol/L (136-145)
== END | disposition home or self-care (01) ==
LOC: POLAB3 10:55
PROVIDERS: PCP Family Medicine Geriatric Medicine; Visit Provider Family Medicine Geriatric Medicine
DX: E27.40 Unspecified adrenocortical insufficiency (principal); N18.4 Chronic kidney disease, stage 4 (severe)
CPT/HCPCS: 36415; 80048

== ENCOUNTER → 2023-06-24 | Outpatient (CLI) | payer MEDICARE, SELFPAY ==
[2023-06-24 12:58] LABS: Albumin, Serum 2.2 g/dL (3.2-5.0); BUN 53 mg/dL (7-18); BUN/Creat Ratio 20.5 RATIO (10-20); Calcium,Total 9.5 mg/dL (8.5-10.1); Chloride 106 mmol/L (98-107); Creatinine, Serum 2.58 mg/dL (0.70-1.30); EST Glomerular Filtration Rate 27 mL/min (>60); Est Glom Filt Rate - Afr Amer 33 mL/min (>60); Glucose 136 mg/dL (74-106); Phosphorus 2.6 mg/dL (2.5-4.9); Potassium 4.2 mmol/L (3.5-5.1); Sodium Level 138 mmol/L (136-145)
[2023-06-24 15:57] LABS: Absolute Lymphocyte Count 1.53 X10^3/uL (0.83-4.51); Absolute Neutrophil Count 5.3 X10^3/uL (2.0-7.7); Basophil# 0.05 X10^3/uL; Basophil% 0.6 % (0-1); Eosinophil# 0.18 X10^3/uL; Eosinophils% 2.3 % (0-5); Hematocrit 37.5 % (40-54); Hemoglobin 11.6 g/dL (13.0-16.5); Lymphocyte # 1.53 X10^3/ul (0.83-4.51); Lymphocyte % 19.6 % (19-41); Mean Corp Hgb Conc 30.9 g/dL (32-36); Mean Corpuscular Hgb 30.4 pg (27.0-32.0); Mean Corpuscular Volume 98.2 fL (80-94); Monocyte# 0.71 X10^3/uL; Monocyte% 9.1 % (0-10); NRBC Flagged by Analyzer 0 % (0-5); Neutrophil # 5.33 X10^3/uL (2.7-7.7); Neutrophil % 68.1 % (47-70); Platelet Count 292 K/mm3 (150-450); RBC Distribution Width CV 16.1 % (11.6-14.6); RBC Distribution Width SD 58.4 fl (35.1-43.9); Red Blood Count 3.82 M/mm3 (4.6-6.2); White Blood Count 7.8 K/mm3 (4.4-11.0)
[2023-06-24 16:49] LABS: Erythrocyte Sedimentation Rate 70 mm/hr (0-20)
== END | disposition home or self-care (01) ==
LOC: POLAB3 11:26
PROVIDERS: PCP Family Medicine Geriatric Medicine; Visit Provider Internal Medicine Nephrology
DX: N18.32 Chronic kidney disease, stage 3b (principal); N17.9 Acute kidney failure, unspecified; I50.30 Unspecified diastolic (congestive) heart failure
CPT/HCPCS: 36415; 80069; 85025; 85652; 86140

== ENCOUNTER → 2023-07-01 | Outpatient (CLI) | payer MEDICARE, SELFPAY ==
[2023-07-01 12:27] LABS: Absolute Lymphocyte Count 1.02 X10^3/uL (0.83-4.51); Absolute Neutrophil Count 10.4 X10^3/uL (2.0-7.7); Basophil# 0.03 X10^3/uL; Basophil% 0.2 % (0-1); Hemoglobin 12.8 g/dL (13.0-16.5); Lymphocyte # 1.02 X10^3/ul (0.83-4.51); Lymphocyte % 8.2 % (19-41); Mean Corp Hgb Conc 31.2 g/dL (32-36); Mean Corpuscular Hgb 30.1 pg (27.0-32.0); Mean Corpuscular Volume 96.5 fL (80-94); Mean Platelet Vol. 11.1 fl (6.2-12.0); Monocyte% 6.4 % (0-10); NRBC Flagged by Analyzer 0 % (0-5); Neutrophil # 10.43 X10^3/uL (2.7-7.7); Neutrophil % 83.6 % (47-70); Platelet Count 276 K/mm3 (150-450); RBC Distribution Width CV 16.8 % (11.6-14.6); Red Blood Count 4.25 M/mm3 (4.6-6.2); White Blood Count 12.5 K/mm3 (4.4-11.0)
[2023-07-01 12:51] LABS: ALB/GLOB Ratio 0.5 RATIO (0.9-2.4); AST(SGOT) 10 U/L (15-37); Alanine Aminotransfer ALT/SGPT 16 U/L (16-61); Albumin, Serum 2.4 g/dL (3.2-5.0); Alkaline Phosphatase 173 U/L (45-117); Anion Gap 6 (5-15); BUN 50 mg/dL (7-18); Calcium,Total 8.7 mg/dL (8.5-10.1); Chloride 110 mmol/L (98-107); Creatinine, Serum 2.38 mg/dL (0.70-1.30); EST Glomerular Filtration Rate 30 mL/min (>60); Est Glom Filt Rate - Afr Amer 36 mL/min (>60); Globulin 4.5 g/dL (2.2-4.2); Glucose 134 mg/dL (74-106); Potassium 5.1 mmol/L (3.5-5.1); Protein, Total 6.9 g/dL (6.4-8.2); Sodium Level 141 mmol/L (136-145)
[2023-07-01 13:50] LABS: BNP,B-Type NATRIURETIC PEPTIDE 91.8 pg/mL (0-100)
== END | disposition home or self-care (01) ==
LOC: POLAB3 11:34
PROVIDERS: PCP Family Medicine Geriatric Medicine; Visit Provider Family Medicine Geriatric Medicine
DX: N18.4 Chronic kidney disease, stage 4 (severe) (principal); R06.02 Shortness of breath
CPT/HCPCS: 36415; 80053; 83880; 85025

== ENCOUNTER → 2023-07-08 | Outpatient (CLI) | payer MEDICARE, SELFPAY ==
[2023-07-08 13:08] LABS: Anion Gap 6 (5-15); BUN 74 mg/dL (7-18); BUN/Creat Ratio 27.1 RATIO (10-20); Calcium,Total 8.8 mg/dL (8.5-10.1); Chloride 110 mmol/L (98-107); Creatinine, Serum 2.73 mg/dL (0.70-1.30); EST Glomerular Filtration Rate 25 mL/min (>60); Est Glom Filt Rate - Afr Amer 31 mL/min (>60); Glucose 216 mg/dL (74-106); Potassium 4.7 mmol/L (3.5-5.1); Sodium Level 141 mmol/L (136-145)
== END | disposition home or self-care (01) ==
LOC: POLAB3 11:36
PROVIDERS: PCP Family Medicine Geriatric Medicine; Visit Provider Family Medicine Geriatric Medicine
DX: N17.9 Acute kidney failure, unspecified (principal)
CPT/HCPCS: 36415; 80048

== ENCOUNTER → 2023-07-16 | Outpatient (CLI) | payer MEDICARE, SELFPAY ==
[2023-07-16 17:47] LABS: Anion Gap 8 (5-15); BUN 63 mg/dL (7-18); BUN/Creat Ratio 20.8 RATIO (10-20); Calcium,Total 8.5 mg/dL (8.5-10.1); Chloride 107 mmol/L (98-107); Creatinine, Serum 3.03 mg/dL (0.70-1.30); EST Glomerular Filtration Rate 22 mL/min (>60); Est Glom Filt Rate - Afr Amer 27 mL/min (>60); Glucose 141 mg/dL (74-106); Potassium 4.3 mmol/L (3.5-5.1); Sodium Level 141 mmol/L (136-145)
== END | disposition home or self-care (01) ==
LOC: LAB 15:46
PROVIDERS: PCP Family Medicine Geriatric Medicine; Visit Provider Family Medicine Geriatric Medicine
DX: N18.4 Chronic kidney disease, stage 4 (severe) (principal)
CPT/HCPCS: 36415; 80048

== ENCOUNTER → 2023-07-22 | Outpatient (CLI) | payer MEDICARE, SELFPAY ==
[2023-07-22 12:30] LABS: Anion Gap 4 (5-15); BUN 55 mg/dL (7-18); BUN/Creat Ratio 21.1 RATIO (10-20); Calcium,Total 8.7 mg/dL (8.5-10.1); Chloride 108 mmol/L (98-107); Creatinine, Serum 2.61 mg/dL (0.70-1.30); EST Glomerular Filtration Rate 27 mL/min (>60); Est Glom Filt Rate - Afr Amer 32 mL/min (>60); Glucose 211 mg/dL (74-106); Sodium Level 141 mmol/L (136-145)
== END | disposition home or self-care (01) ==
LOC: POLAB3 11:41
PROVIDERS: PCP Family Medicine Geriatric Medicine; Visit Provider Family Medicine Geriatric Medicine
DX: N18.4 Chronic kidney disease, stage 4 (severe) (principal)
CPT/HCPCS: 36415; 80048

== ENCOUNTER 2023-07-25 13:43 | Inpatient (IN) | payer MEDICARE, SELFPAY ==
[2023-07-25] VITALS (7 sets, daily range): BP systolic 111–134; BP diastolic 52–74; PULSE 59–66; RESP 14–18; TEMP 36.4–36.8; O2SAT 97–98; BMI 53.1; BMI 52.6
--- NOTE | 2023-07-25 13:51 | ED.VIS.FALL ---
HPI HPI - Fall History of Present Illness Chief Complaint: Fall PFSH [facility] Medical History (Updated 07/25/23 @ 17:[address] Sadie Salazar MD) (HFpEF) heart failure with preserved ejection fraction Acidosis, lactic Acute hypotension Adrenal insufficiency Adult failure to thrive Anasarca Anemia of chronic disease Anxiety Ascites Atherosclerotic heart disease of [place] coronary artery without angina pectoris Atrial fibrillation Atrial flutter with rapid ventricular response (02/02/21) BMI 50.0-59.9, adult CAD (coronary artery disease) Cellulitis Chest pain Chronic anticoagulation Chronic diastolic congestive heart failure Chronic kidney disease, stage 3b CKD (chronic kidney disease), stage IV Closed left humeral fracture Coronary artery disease Debility Elevated troponin Gout History of non-ST elevation myocardial infarction (NSTEMI) (12/29/20) Hypertension Insomnia Iron deficiency anemia Kidney disease Lactic acidosis Lumbar radiculopathy Malaise and fatigue Morbid obesity Multiple falls FELIPE (nonalcoholic steatohepatitis) Nonsustained paroxysmal ventricular tachycardia (12/2020) Osteoarthritis of ankle and foot PAF (paroxysmal atrial fibrillation) Periprosthetic fracture around internal prosthetic joint Right hip pain Seborrhea of face SOB (shortness of breath) Stage 3b chronic kidney disease (CKD) Unable to ambulate Venous insufficiency Vertigo, central Weakness Home Medications apixaban 5 mg tablet (Eliquis) 5 mg PO BID BLOOD THINNER 07/20/22 [History Last Taken 07/25/23 09:00] allopurinol 300 mg tablet 300 mg PO DAILY GOUT 11/04/22 [History Last Taken 07/25/23 09:00] tacrolimus 0.5 mg capsule, immediate-release 0.5 mg PO Q12H LIVER TRANSPLANT 11/06/22 [History Last Taken 07/25/23 09:00] nitroglycerin 0.4 mg sublingual tablet 0.4 mg sublingual Q5M PRN CHEST PAIN #25 tabs 11/27/22 [Rx Last Taken Unknown] citalopram 10 mg tablet 10 mg PO DAILY MOOD 02/08/23 [History Last Taken 07/24/23 21:00] amiodarone 200 mg tablet 200 mg PO DAILY BLOOD PRESSURE 02/14/23 [History Last Taken 07/24/23 21:00] ursodiol 300 mg capsule 300 mg PO BID GALLSTONES 02/14/23 [History Last Taken 07/25/23 09:00] prochlorperazine maleate 5 mg tablet 5 mg PO Q6H PRN NAUSEA/VOMITING 03/10/23 [History Last Taken 07/24/23 21:00] famotidine 20 mg tablet 20 mg PO Q12H ACID REFLUX 04/24/23 [History Last Taken 07/25/23 09:00] levothyroxine 25 mcg tablet 25 mcg PO DAILY THYROID 04/24/23 [History Last Taken 07/24/23 21:00] oxycodone 10 mg tablet 10 mg PO TID PRN BTP 04/24/23 [History Last Taken 07/25/23 14:00] polysaccharide iron complex 150 mg iron capsule (Ferrex) 150 mg PO DAILY supplment 05/14/23 [History Last Taken 07/24/23 21:00] potassium chloride 20 mEq tablet,extended release(part/cryst) (Klor-Con M) 20 meq PO DAILY help with potassium #30 tabs 05/18/23 [Rx Last Taken Unknown] bumetanide 2 mg tablet 2 mg PO DAILY water pill 05/31/23 [History Last Taken 07/25/23 09:00] hydrocortisone 10 mg tablet 10 mg PO .COMPLEX help with legs 06/05/23 [History Last Taken 07/25/23 09:00] metoprolol tartrate 25 mg tablet 12.5 mg PO BID heart 06/05/23 [History Last Taken 07/25/23 09:00] sacubitril 49 mg-valsartan 51 mg tablet (Entresto) 1 tab PO BID repair heart muscle 06/05/23 [History Last Taken 07/25/23 09:00] lactulose 20 gram/30 mL oral solution 20 g (30 mL) PO TID liver disease #1,200 mL 06/07/23 [Rx Last Taken 07/24/23 21:00] rifaximin 550 mg tablet (Xifaxan) 550 mg PO BID help with liver #60 tabs 06/07/23 [Rx Last Taken 07/25/23 09:00] sulfamethoxazole 400 mg-trimethoprim 80 mg tablet 1 tab PO DAILY liver transplant 07/25/23 [History Last Taken 07/25/23 09:00] Allergy/AdvReac Type Severity Reaction Status Date / Time morphine Allergy Hives Verified 07/25/23 13:44 pravastatin [From Pravachol] Allergy Hives Verified 07/25/23 13:44 Pzycwby-SWJ-KrL Reductase Allergy Hives Verified 07/25/23 13:44 Inhibitor [Bebswbp-Xdm-Can Reductase Inhibitor] vancomycin Allergy NEEDS Verified 07/25/23 13:44 FOLLOW-UP zolpidem tartrate Allergy Hives Verified 07/25/23 13:44 [From Ambien] everolimus AdvReac Swelling Verified 07/25/23 13:44 gabapentin AdvReac NEEDS Verified 07/25/23 13:44 FOLLOW-UP Family History Mother Heart disease Father Heart disease Surgical History H/O shoulder surgery History of cardioversion (02/02/21) History of cataract extraction with lens replacement (~11/22/22) History of hip surgery History of liver transplant Liver transplant recipient S/P PTCA (percutaneous transluminal coronary angioplasty) Status post liver transplant (07/2017) Social History household members: spouse Smoking Status: Never smoker alcohol intake: former substance use type: does not use caffeine: No EXAM Physical Exam Const Vital Signs: 07/25/23 13:44 07/25/23 13:43 07/25/23 15:13 Temperature 98.2 F Temperature Source Temporal Pulse Rate 66 60 Respiratory Rate 14 18 Respiratory Effort Normal Respiratory Depth Normal Respiratory Pattern Normal Blood Pressure 134/68 H 129/63 H Blood Pressure Mean 90 85 Pulse Ox 98 98 Oxygen Delivery Method Room Air Room Air Room Air 07/25/23 16:00 Temperature Temperature Source Pulse Rate 59 L Respiratory Rate 15 Respiratory Effort Respiratory Depth Respiratory Pattern Blood Pressure 131/74 H Blood Pressure Mean 93 Pulse Ox 98 Oxygen Delivery Method MDM MDM MDM Narrative Medical decision making narrative: HISTORY OF PRESENT ILLNESS: 62-year-old male here for fall. The patient states has been putting on water weight recently. Notes baseline weight is around 300 pounds. States he had recent med changes given increased weight gain and swelling. States he fell today injuring his left ankle. Denies head trauma or loss of consciousness. REVIEW OF SYSTEMS: Pertinent positives: Weight gain, shortness of breath, dyspnea exertion, left ankle pain Pertinent negatives: Chest pain, cough, fever PHYSICAL EXAM: Nursing triage notes reviewed, Vital signs reviewed Constitutional: please see [facility] HENT: MMM Eyes: Pupils equal round and reactive to light, Extraocular muscles intact Neck: No stridor, no JVD, full neck ROM Lungs: Clear to auscultation, noted rales in bilateral bases, no increased work of breathing, no conversational dyspnea, no accessory muscle use, no nasal flaring. No respiratory distress noted Heart: Regular rate and rhythm, No murmurs, No rubs and No gallops, 2+ distal pulses (radial, femoral, posterior tibial) in all extremities Abdomen: Soft, there is no tenderness, rigidity, rebound or guarding, no obvious peritoneal signs, no palpable pulsatile abdominal masses, no auscultated abdominal bruit : No CVAT Extremities: Obvious deformity to left ankle, TTP over left ankle Neuro: Patient was alert and orient x 3, no focal neurologic deficits. Intact sensation L1-S1 dermatomal distributions. Intact 5/5 strength in hip flexion (T12-L3). Knee extension (L2-L4). Ankle dorsiflexion (L4-L5). Ankle plantar flexion (S1). Great toe extension (L5). 2+ patellar and Achilles DTRs. Skin: No rash or lesions noted, no evidence of open fracture MEDICAL DECISION MAKING: Chief Complaint: Swelling, fall, left ankle pain External records reviewed: Imaging studies reviewed: Echocardiogram from 2022 shows an ejection fraction of 65% Factors affecting care: Cirrhosis status post liver transplant, CAD, atrial fibrillation on Eliquis, heart failure, adrenal insufficiency Social determinants of health: none History obtained from others: The patient's family Consults: internal medicine (Dr. Salazar), podiatry (Dr. Zamorano) [facility] Narrative: Patient was hemodynamically stable, afebrile, nontoxic-appearing I considered the following differential diagnosis: CHF exacerbation, anemia, COVID, ACS, arrhythmia ALL IMAGES (IF OBTAINED) HAVE BEEN PERSONALLY REVIEWED AND INTERPRETED BY MYSELF. EKG with normal sinus rhythm, left axis deviation, normal intervals, no STEMI X-ray left ankle was read reviewed myself shows evidence of bimalleolar fracture left ankle CBC with leukocytosis, mild anemia, no thrombocytopenia CBC with leukocytosis, mild anemia, no thrombocytopenia BMP without significant electrolyte abnormality, no anion gap, noted CKD Troponin is negative, no evidence of myocardial ischemia Chest x-ray was read reviewed by myself shows evidence of pulmonary vascular congestion consistent with heart failure BNP elevated however downtrending from prior suggestive increased myocyte stretch, increased transmural pressure The synthesis of the patient's labs images history and physical exam consistent with likely CHF exacerbation given signs of volume overload, weight gain, elevated BNP and pulmonary edema noted on chest x-ray. He was given 4 mg IV Bumex. In terms of the patient's ankle pain he has a bimalleolar fracture. I did consult podiatry Dr. Zamorano who recommended likely surgical intervention once he is medically optimized. The case was discussed with hospitalist Dr. Salazar accepted the patient. The patient and/or family, caregivers express understanding. The patient and/or family, caregivers agrees with the plan. Shared decision making: I will have a discussion with the patient and or visitors regarding risk/benefits of further testing or admission. They will be made aware of of the risk/benefits inherent in this decision they will be given the opportunity to voice understanding. Total critical care time today provided was at least 0 minutes. This excludes separately billable procedures. Critical care time (if documented) is secondary to the patient having high probability of clinically significant/life threatening deterioration in the patient's condition which required my urgent intervention. Impression: 1. Acute CHF exacerbation 2. Left bimalleolar fracture 3. Leukocytosis 4. Anemia Dispo: Admit to PCU Lab Data Labs: Laboratory Results - last 24 hr 07/25/23 14:04 WBC 11.1 H RBC 4.09 L Hgb 12.6 L Hct 41.0 MCV 100.2 H MCH 30.8 MCHC 30.7 L RDW Std Deviation 65.1 H RDW Coeff of Maciel 17.8 H Plt Count 289 MPV 10.4 Immature Gran % (Auto) 2.500 H Neut % (Auto) 87.2 H Lymph % (Auto) 3.5 L Forrest % (Auto) 6.4 Eos % (Auto) 0.0 Baso % (Auto) 0.4 Absolute Neuts (auto) 9.7 H Absolute Lymphs (auto) 0.39 L Nucleated RBC % 0.2 Differential Comment SCANNED Anisocytosis 2+ Macrocytosis 1+ Sodium 138 Potassium 4.5 Chloride 108 H Carbon Dioxide 21.0 Anion Gap 9 BUN 60 H Creatinine 2.98 H Estim Creat Clear Calc 26.54 Est GFR (MDRD) Af Amer 28 L Est GFR (MDRD) Non-Af 23 L BUN/Creatinine Ratio 20.1 H Glucose 288 H Calcium 8.3 L Total Bilirubin 0.60 Direct Bilirubin 0.21 AST 12 L ALT 24 Alkaline Phosphatase 159 H Troponin I High Sens 24 B-Natriuretic Peptide 246.3 H Total Protein 6.0 L Albumin 2.1 L Globulin 3.9 Radiography Diagnostic Testing: Clinical Impression(s) from Imaging Studies Ankle X-Ray 07/25/23 14:35 IMPRESSION: Acute minimally displaced osteochondral bimalleolar fracture with diffuse soft tissue swelling. Orthopedic surgery consultation recommended Osteopenia Calcaneal spurs No evidence to suspect chronic calcific plantar fasciitis Electronically Signed: Balaji Zaman MD at 15:09 EST , Chest X-Ray 07/25/23 14:35 IMPRESSION: No acute pulmonary process Electronically Signed: Balaji Zaman MD at 15:07 EST , Discharge Plan Disposition Disposition: Acute Care Hospital [facility] Discharge Date/Time: 07/25/23 17:51
[2023-07-25 14:15] LABS: Absolute Lymphocyte Count 0.39 X10^3/uL (0.83-4.51); Absolute Neutrophil Count 9.7 X10^3/uL (2.0-7.7); Basophil# 0.04 X10^3/uL; Basophil% 0.4 % (0-1); Hemoglobin 12.6 g/dL (13.0-16.5); Lymphocyte # 0.39 X10^3/ul (0.83-4.51); Lymphocyte % 3.5 % (19-41); Mean Corp Hgb Conc 30.7 g/dL (32-36); Mean Corpuscular Hgb 30.8 pg (27.0-32.0); Mean Corpuscular Volume 100.2 fL (80-94); Mean Platelet Vol. 10.4 fl (6.2-12.0); Monocyte# 0.71 X10^3/uL; Monocyte% 6.4 % (0-10); NRBC Flagged by Analyzer 0.2 % (0-5); Neutrophil # 9.69 X10^3/uL (2.7-7.7); Neutrophil % 87.2 % (47-70); POSITIVE DIFFERENTIAL YES; POSITIVE MORPHOLOGY YES; Platelet Count 289 K/mm3 (150-450); RBC Distribution Width CV 17.8 % (11.6-14.6); RBC Distribution Width SD 65.1 fl (35.1-43.9); Red Blood Count 4.09 M/mm3 (4.6-6.2); White Blood Count 11.1 K/mm3 (4.4-11.0)
[2023-07-25 14:19] LABS: Differential Indicated SCAN CRITERIA MET
[2023-07-25] MEDS: oxyCODONE 5 MG Tablet 10 MG PO ×2 (14:19→20:30)
[2023-07-25] MEDS: Acetaminophen 325 MG Tablet 650 MG PO (14:19)
[2023-07-25 14:34] LABS: AST(SGOT) 12 U/L (15-37); Alanine Aminotransfer ALT/SGPT 24 U/L (16-61); Albumin, Serum 2.1 g/dL (3.2-5.0); Alkaline Phosphatase 159 U/L (45-117); Anion Gap 9 (5-15); BUN 60 mg/dL (7-18); BUN/Creat Ratio 20.1 RATIO (10-20); Bilirubin, Direct 0.21 mg/dL (0.00-0.30); Calcium,Total 8.3 mg/dL (8.5-10.1); Chloride 108 mmol/L (98-107); Creatinine, Serum 2.98 mg/dL (0.70-1.30); EST Glomerular Filtration Rate 23 mL/min (>60); Est Glom Filt Rate - Afr Amer 28 mL/min (>60); Estimated Creatinine Clearance 26.54 ml/min; Globulin 3.9 g/dL (2.2-4.2); Glucose 288 mg/dL (74-106); Potassium 4.5 mmol/L (3.5-5.1); Sodium Level 138 mmol/L (136-145); Troponin-I HS 24 pg/mL (3.0-78.0)
--- NOTE | 2023-07-25 14:35 | RAD_ITS ---
STUDY: X-RAY CHEST REASON FOR EXAM: Male, 62 years old. weakness, SOB TECHNIQUE: Single AP portable view of the chest. COMPARISON: None. FINDINGS: EKG leads overlie the chest The lungs are clear and expanded. There is no demonstrated pleural abnormality. Normal size heart. Normal mediastinum and debora. Normal visualized pulmonary arteries. Normal visualized aortic arch and descending thoracic aorta. Normal visualized thoracic spine. Replaced left glenohumeral joint free of complication There is no demonstrated abnormality of the visualized soft tissue structures of the upper abdomen. RAD/Chest 1 View (Portable) IMPRESSION: No acute pulmonary process Electronically Signed: Balaji Zaman MD at 15:07 EST ,
--- NOTE | 2023-07-25 14:35 | RAD_ITS ---
STUDY: X-RAY - LEFT ANKLE REASON FOR EXAM: Male, 62 years old. Pain after trauma TECHNIQUE: 3 view(s) of the ankle. COMPARISON: None. FINDINGS: The bones are diffusely demineralized. No acute minimally displaced osteochondral fractures of the distal medial tibia and distal femur with associated soft tissue swelling. No demonstrated posterior malleolar fracture. The ankle mortise is well-preserved. There are calcaneal heel spurs and evidence of chronic plantar fasciitis. No demonstrated talar or calcaneal fracture. RAD/Ankle min 3 Views IMPRESSION: Acute minimally displaced osteochondral bimalleolar fracture with diffuse soft tissue swelling. Orthopedic surgery consultation recommended Osteopenia Calcaneal spurs No evidence to suspect chronic calcific plantar fasciitis Electronically Signed: Balaji Zaman MD at 15:09 EST ,
[2023-07-25 14:41] LABS: Anisocytosis 2+; Differential Comment SCANNED; Macrocytosis 1+
[2023-07-25] MEDS: fentaNYL 100 MCG/2 ML Ampul 50 MCG IV (15:07)
[2023-07-25 15:14] LABS: BNP,B-Type NATRIURETIC PEPTIDE 246.3 pg/mL (0-100)
[2023-07-25] MEDS: Bumetanide 1 MG/4 ML Vial 4 MG IV (15:54)
[2023-07-25] MEDS: HYDROmorphone 0.5 MG/0.5 ML SYRINGE IV (16:07)
[2023-07-25] MEDS: Ondansetron 4 MG/2 ML Vial IV (16:41)
--- NOTE | 2023-07-25 16:58 | HP.PCM.HOS_ITS ---
HPI - General General Date of Admission: 07/25/23 Date of Service: 07/25/23 Chief Complaint: Ankle pain and sob/increasing weight HPI Narrative ESTEFANIA MILLER, is a 62-year-old male history of coronary artery disease, atrial fibrillation, adrenal insufficiency, heart failure preserved ejection fraction, CKD IV, cirrhosis with liver transplant who presented to [facility] 07/25/2023 after a fall resulting in painful left ankle and feeling as though he has been putting on water weight after decreasing his Bumex 2 weeks ago. In ED heart rate 66, blood pressure 134/68 and respiratory rate 14 with a pulse ox of 98% on room air. White blood cell count 11.1, BUN 60 and creatinine 2.98 which is on upper range of what he usually runs but still within range. Chest x-ray some possible vascular congestion and ankle x-ray with bimalleolar fracture. Patient has some component of fluid overload but also unable to ambulate given his fractures, hospitalist contacted for admission. Patient evaluated at bedside with family members present. He does endorse Gaining 26 pounds over the past 2 weeks since his Bumex was decreased from 4 mg to 2 mg. He reports this was decreased due to his kidney function. Over the past several days he has been feeling weaker and having more lower extremity swelling and more shortness of breath on exertion that is becoming significant. Today he was feeling so weak and legs were so heavy from fluid that he fell and hurt his left ankle. He denies any cough or fevers or chills, no chest pain, denies any changes in bowel or bladder. No other complaints at this time. FORMERLY [facility], 1928–1983 Medical History (Updated 07/25/23 @ 17:[address] Sadie Salazar MD) (HFpEF) heart failure with preserved ejection fraction Acidosis, lactic Acute hypotension Adrenal insufficiency Adult failure to thrive Anasarca Anemia of chronic disease Anxiety Ascites Atherosclerotic heart disease of pamunkey coronary artery without angina pectoris Atrial fibrillation Atrial flutter with rapid ventricular response (02/02/21) BMI 50.0-59.9, adult CAD (coronary artery disease) Cellulitis Chest pain Chronic anticoagulation Chronic diastolic congestive heart failure Chronic kidney disease, stage 3b CKD (chronic kidney disease), stage IV Closed left humeral fracture Coronary artery disease Debility Elevated troponin Gout History of non-ST elevation myocardial infarction (NSTEMI) (12/29/20) Hypertension Insomnia Iron deficiency anemia Kidney disease Lactic acidosis Lumbar radiculopathy Malaise and fatigue Morbid obesity Multiple falls FELIPE (nonalcoholic steatohepatitis) Nonsustained paroxysmal ventricular tachycardia (12/2020) Osteoarthritis of ankle and foot PAF (paroxysmal atrial fibrillation) Periprosthetic fracture around internal prosthetic joint Right hip pain Seborrhea of face SOB (shortness of breath) Stage 3b chronic kidney disease (CKD) Unable to ambulate Venous insufficiency Vertigo, central Weakness Home Medications apixaban 5 mg tablet (Eliquis) 5 mg PO BID BLOOD THINNER 07/20/22 [History Last Taken 07/25/23 09:00] allopurinol 300 mg tablet 300 mg PO DAILY GOUT 11/04/22 [History Last Taken 07/25/23 09:00] tacrolimus 0.5 mg capsule, immediate-release 0.5 mg PO Q12H LIVER TRANSPLANT 11/06/22 [History Last Taken 07/25/23 09:00] nitroglycerin 0.4 mg sublingual tablet 0.4 mg sublingual Q5M PRN CHEST PAIN #25 tabs 11/27/22 [Rx Last Taken Unknown] citalopram 10 mg tablet 10 mg PO DAILY MOOD 02/08/23 [History Last Taken 07/24/23 21:00] amiodarone 200 mg tablet 200 mg PO DAILY BLOOD PRESSURE 02/14/23 [History Last Taken 07/24/23 21:00] ursodiol 300 mg capsule 300 mg PO BID GALLSTONES 02/14/23 [History Last Taken 07/25/23 09:00] prochlorperazine maleate 5 mg tablet 5 mg PO Q6H PRN NAUSEA/VOMITING 03/10/23 [History Last Taken 07/24/23 21:00] famotidine 20 mg tablet 20 mg PO Q12H ACID REFLUX 04/24/23 [History Last Taken 07/25/23 09:00] levothyroxine 25 mcg tablet 25 mcg PO DAILY THYROID 04/24/23 [History Last Taken 07/24/23 21:00] oxycodone 10 mg tablet 10 mg PO TID PRN BTP 04/24/23 [History Last Taken 07/25/23 14:00] polysaccharide iron complex 150 mg iron capsule (Ferrex) 150 mg PO DAILY supplment 05/14/23 [History Last Taken 07/24/23 21:00] potassium chloride 20 mEq tablet,extended release(part/cryst) (Klor-Con M) 20 meq PO DAILY help with potassium #30 tabs 05/18/23 [Rx Last Taken Unknown] bumetanide 2 mg tablet 2 mg PO DAILY water pill 05/31/23 [History Last Taken 07/25/23 09:00] hydrocortisone 10 mg tablet 10 mg PO .COMPLEX help with legs 06/05/23 [History Last Taken 07/25/23 09:00] metoprolol tartrate 25 mg tablet 12.5 mg PO BID heart 06/05/23 [History Last Taken 07/25/23 09:00] sacubitril 49 mg-valsartan 51 mg tablet (Entresto) 1 tab PO BID repair heart muscle 06/05/23 [History Last Taken 07/25/23 09:00] lactulose 20 gram/30 mL oral solution 20 g (30 mL) PO TID liver disease #1,200 mL 06/07/23 [Rx Last Taken 07/24/23 21:00] rifaximin 550 mg tablet (Xifaxan) 550 mg PO BID help with liver #60 tabs 06/07/23 [Rx Last Taken 07/25/23 09:00] sulfamethoxazole 400 mg-trimethoprim 80 mg tablet 1 tab PO DAILY liver transplant 07/25/23 [History Last Taken 07/25/23 09:00] Allergy/AdvReac Type Severity Reaction Status Date / Time morphine Allergy Hives Verified 07/25/23 13:44 pravastatin [From Pravachol] Allergy Hives Verified 07/25/23 13:44 Hqpbbhi-JHI-JjN Reductase Allergy Hives Verified 07/25/23 13:44 Inhibitor [Pbvypet-Xfl-Knn Reductase Inhibitor] vancomycin Allergy NEEDS Verified 07/25/23 13:44 FOLLOW-UP zolpidem tartrate Allergy Hives Verified 07/25/23 13:44 [From Ambien] everolimus AdvReac Swelling Verified 07/25/23 13:44 gabapentin AdvReac NEEDS Verified 07/25/23 13:44 FOLLOW-UP Family History Mother Heart disease Father Heart disease Surgical History H/O shoulder surgery History of cardioversion (02/02/21) History of cataract extraction with lens replacement (~11/22/22) History of hip surgery History of liver transplant Liver transplant recipient S/P PTCA (percutaneous transluminal coronary angioplasty) Status post liver transplant (07/2017) Social History household members: spouse Smoking Status: Never smoker alcohol intake: former substance use type: does not use caffeine: No ROS ROS Narrative General: Denies fever/chills HENT: Denies headache, denies stuffy nose, denies sore throat EYES: Denies changes in vision Resp: Denies cough, increasing shortness of breath with exertion Cardiac: Denies chest pain GI: Denies abdominal pain, denies changes in bowel, denies nausea/vomiting : Denies changes in urination Extremity: Increased bilateral lower extremity swelling MSK: Some leg weakness and heaviness diffusely Neuro: Denies any numbness/tingling Heme: Easy bruising Skin: Denies rashes Psychiatric: No complaints voiced Vital Signs Vital Signs Vital Signs: 07/25/23 13:44 07/25/23 13:43 07/25/23 15:13 Temperature 98.2 F Temperature Source Temporal Pulse Rate 66 60 Respiratory Rate 14 18 Respiratory Effort Normal Respiratory Depth Normal Respiratory Pattern Normal Blood Pressure 134/68 H 129/63 H Blood Pressure Mean 90 85 Pulse Ox 98 98 Oxygen Delivery Method Room Air Room Air Room Air 07/25/23 16:00 Temperature Temperature Source Pulse Rate 59 L Respiratory Rate 15 Respiratory Effort Respiratory Depth Respiratory Pattern Blood Pressure 131/74 H Blood Pressure Mean 93 Pulse Ox 98 Oxygen Delivery Method Weight Weight: 167.9 kg Body Mass Index (BMI) 53.1 Physical Exam Narrative General: Alert, oriented, no apparent distress HEENT: Atraumatic, normocephalic Eyes: Anicteric, normal conjunctiva, extraocular movements grossly intact Neck: Supple Respiratory: Diminished at the bases, difficult to auscultate with body habitus, normal respiratory effort Cardiovascular: Regular rate GI: Soft, nontender, nondistended Extremities: 1+ lower extremity edema, left ankle is wrapped Musculoskeletal: Left ankle presently immobilized Neuro: No overt focal neurological deficits Skin: Left ear status post cancer removal and graft Psych: Cooperative Results Lab / Micro Data 07/25/23 14:04 07/25/23 14:04 Labs: Laboratory Results - last 24 hr 07/25/23 14:04: WBC 11.1 H, RBC 4.09 L, Hgb 12.6 L, Hct 41.0, MCV 100.2 H, MCH 30.8, MCHC 30.7 L, RDW Std Deviation 65.1 H, RDW Coeff of Maciel 17.8 H, Plt Count 289, MPV 10.4, Immature Gran % (Auto) 2.500 H, Neut % (Auto) 87.2 H, Lymph % (Auto) 3.5 L, White % (Auto) 6.4, Eos % (Auto) 0.0, Baso % (Auto) 0.4, Absolute Neuts (auto) 9.7 H, Absolute Lymphs (auto) 0.39 L, Nucleated RBC % 0.2, Differential Comment SCANNED, Anisocytosis 2+, Macrocytosis 1+, Sodium 138, Potassium 4.5, Chloride 108 H, Carbon Dioxide 21.0, Anion Gap 9, BUN 60 H, Creatinine 2.98 H, Estim Creat Clear Calc 26.54, Est GFR (MDRD) Af Amer 28 L, Est GFR (MDRD) Non-Af 23 L, BUN/Creatinine Ratio 20.1 H, Glucose 288 H, Calcium 8.3 L, Total Bilirubin 0.60, Direct Bilirubin 0.21, AST 12 L, ALT 24, Alkaline Phosphatase 159 H, Troponin I High Sens 24, B-Natriuretic Peptide 246.3 H, Total Protein 6.0 L, Albumin 2.1 L, Globulin 3.9 Micro: Microbiology 07/25/23 14:28 Nasal Secretion SARS-CoV-2 & FLU Antigen (Rapid) - Final Imagaing Radiology Impression Ankle X-Ray 07/25/23 14:35 IMPRESSION: Acute minimally displaced osteochondral bimalleolar fracture with diffuse soft tissue swelling. Orthopedic surgery consultation recommended Osteopenia Calcaneal spurs No evidence to suspect chronic calcific plantar fasciitis Electronically Signed: Balaji Zaman MD at 15:09 EST Reading Location ID and State: [facility] [employer] , Service support , Chest X-Ray 07/25/23 14:35 IMPRESSION: No acute pulmonary process Electronically Signed: Balaji Zaman MD at 15:07 EST , Assessment & Plan Assessment/Plan (1) Acute diastolic CHF (congestive heart failure): (2) CAD (coronary artery disease): QUALIFIERS: Associated angina: without angina Coronary Disease- Associated Artery/Lesion type: pam[place]key artery [place] vs. transplanted heart: na tive heart Qualified Code(s): I25.10 - Atherosclerotic heart disease of [place] coronary artery without angina pectoris (3) Atrial fibrillation: (4) Liver transplant recipient: (5) CKD (chronic kidney disease), stage IV: (6) Cancer of skin of left ear: PLAN: Plan #Acute on chronic HFpEF -Most recent echo 11/06/2022 was technically difficult but EF 65%, no ASD, no comment on diastolic dysfunction, back in 2017 did have stage I diastolic dysfunction noted -Daily weights, I's and O's -Chest x-ray reviewed film does seem to show some vascular congestion and patient has had increased weight 26 pounds since decreasing his Bumex and i ncreased shortness of breath on exertion with increased peripheral edema consistent with a CHF -BNP 246 has pretty variable values with most recent being 91.8 less than a month ago -IV Lasix -Repeat echo -We will continue patient's other home medications #s/p fall with left bimalleolar fracture -X-rays obtained in ED of left ankle show bimalleolar fracture -Pain control -Podiatry consult -We will need PT/OT #Left ear cancer removal -Patient supposed to keep Vaseline on the area and keep it bandaged #CKD IV -Patient with variable baseline and seems to be on the upper end of recent range but still within range -Daily BMP -Given need for diuresis with recent decrease in home dose due to kidney function 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 -Complicates treatment, prognosis, outcomes -Recommend weight loss and lifestyle changes #Depression -Continue citalopram #DVT ppx: Arias Salazar MD Charges/Coding Visit Charges Inpatient E&M: 07253 Init Hosp L2
--- NOTE | 2023-07-25 17:49 | ED.RN ---
Pt refusing catheter. Male wick hooked up.
--- NOTE | 2023-07-25 18:12 | ECHOCS_ITS ---
Reason For Study: CHF Procedure This was a 2D Doppler, Color Flow transthoracic echocardiogram. Contrast injection was performed. The study was technically difficult. Exam performed portable in patient room. Left Ventricle Normal LV size. Mild concentric left ventricular hypertrophy. The left ventricular ejection fraction is 65 %. Normal diastology for age. Right Ventricle Normal right ventricle. Atria The left and right atria are normal. Mitral Valve Trivial mitral valve insufficiency. Tricuspid Valve Trivial tricuspid valve insufficiency. Unable to estimate RV systolic pressure due to insufficient tricuspid regurgitant envelope. Aortic Valve Trisinus/trileaflet aortic valve. Pulmonic Valve The pulmonic valve is not well visualized. Great Vessels Mildly dilated aortic root. Pericardium/Pleural No pericardial effusion. Epicardial fat. Medication Diluted definity 3ml given slow IV push to enhance endocardial definition. MMode/2D Measurements & Calculations LVIDd: 5.9 cm IVSd: 1.3 cm Ao root diam: 3.8 cm LVIDs: 3.1 cm LVPWd: 1.3 cm FS: 48.3 % LAV(MOD-bp): 37.2 ml LVAd ap4: 21.4 cm2 SV(MOD-sp4): 31.0 ml LAV(MOD-bp) Indexed: 13.8 ml/m2 LVLd ap4: 6.7 cm LAV(MOD-sp2): 38.7 ml EDV(MOD-sp4): 56.1 ml LAV(MOD-sp4): 34.0 ml EDV(sp4-el): 58.7 ml LVAs ap4: 13.3 cm2 LVLs ap4: 5.8 cm ESV(MOD-sp4): 25.1 ml ESV(sp4-el): 25.7 ml EF(MOD-sp4): 55.2 % EF(sp4-el): 56.2 % SV(sp4-el): 33.0 ml LA A4 area: 15.1 cm2 LA dimension(2D): 3.0 cm RA A4 area: 12.5 cm2 TAPSE: 2.7 cm Time Measurements MV dec time: 0.33 sec Doppler Measurements & Calculations MV E max daniele: 66.9 cm/sec Lat Peak E' Daniele: 9.2 cm/sec Med Peak E' Daniele: 7.0 cm/sec MV A max daniele: 72.2 cm/sec E/E' lat: 7.2 E/E' med: 9.5 MV E/A: 0.93 MV dec slope: 204.9 cm/sec2 Ao V2 max: 163.5 cm/sec LV V1 max: 121.7 cm/sec Ao max P.7 mmHg LV V1 max P.9 mmHg Ao V2 mean: 113.2 cm/sec Ao mean P.6 mmHg Ao V2 VTI: 27.6 cm PA V2 max: 144.0 cm/sec ECHO/Echo Complete W/ Contrast Interpretation Summary Mild concentric left ventricular hypertrophy. The left ventricular ejection fraction is 65 %. Normal diastology for age. Mildly dilated aortic root. The study was technically difficult. Ordering Physician: Sadie Salazar Referring Physician: Lance Bose Chi Performed By: Deepa Frazier, WILEY, RVT
[2023-07-25 19:03] LABS: Bacteria 0 SEEN /hpf (None Seen); Mucous, Urine 0 SEEN /hpf (<or=2+); Red Blood Cells-Urine 0 SEEN /hpf (0-5)
[2023-07-25 19:31] LABS: Color, Urine Yellow (Yellow); Glucose, Dipstick Normal (Normal); Ketone-Dipstick Negative (Negative); Leukocyte Esterase-Dipstick Negative /ul (Negative); Nitrite-Dipstick Negative (Negative); Occult Blood-Urine Negative /ul (Negative); Protein-Dipstick Negative (Negative); Specific Gravity, Urine 1.015 (1.002-1.030); Urine Bilirubin Dipstick Negative (Negative); Urine Clarity Sl. Cloudy (Clear); Urine Urobilinogen Normal (Normal)
[2023-07-25 20:06] LABS: Squamous Epithelial Cells - UA 0-5 SEEN /hpf (0-5); White Blood Cells 0-5 SEEN /hpf (0-5)
[2023-07-25] MEDS: APIXABAN 5 MG TABLET PO (20:28)
[2023-07-25] MEDS: SACUBITRIL/VALSARTAN 49-51 MG TABLET 1 EACH PO (20:28)
[2023-07-25] MEDS: rifAXIMin 550 MG Tablet PO (20:28)
[2023-07-25] MEDS: Ursodiol 250 MG Tablet PO (20:29)
[2023-07-25] MEDS: Tacrolimus 0.5 MG Capsule PO (20:30)
[2023-07-25] MEDS: MELATONIN 3 MG TABLET PO (20:31)
[2023-07-25] MEDS: Metoprolol Tartrate 25 MG Tablet 12.5 MG PO (20:32)
[2023-07-25] MEDS: Furosemide 100 MG/10 ML Vial 80 MG IV (20:40)
[2023-07-25] MEDS: 0.9% Saline Lock 10 ML Syringe IV (20:42)
[2023-07-26] VITALS (8 sets, daily range): BP systolic 97–125; BP diastolic 52–67; PULSE 62–67; RESP 14–18; TEMP 36.4–36.9; O2SAT 97–100; BMI 52.8
[2023-07-26] MEDS: oxyCODONE 5 MG Tablet 10 MG PO ×3 (02:19→16:46)
[2023-07-26] MEDS: Lactulose 20 GM/30 ML UDC PO ×2 (06:28→20:52)
[2023-07-26] MEDS: Levothyroxine 25 MCG TABLET PO (06:28)
[2023-07-26 06:39] LABS: Absolute Lymphocyte Count 1.31 X10^3/uL (0.83-4.51); Absolute Neutrophil Count 7.7 X10^3/uL (2.0-7.7); Basophil# 0.01 X10^3/uL; Basophil% 0.1 % (0-1); Hematocrit 37.5 % (40-54); Hemoglobin 11.5 g/dL (13.0-16.5); Lymphocyte # 1.31 X10^3/ul (0.83-4.51); Lymphocyte % 12.6 % (19-41); Mean Corp Hgb Conc 30.7 g/dL (32-36); Mean Corpuscular Hgb 30.5 pg (27.0-32.0); Mean Corpuscular Volume 99.5 fL (80-94); Mean Platelet Vol. 10.3 fl (6.2-12.0); Monocyte# 1.14 X10^3/uL; NRBC Flagged by Analyzer 0.2 % (0-5); Neutrophil # 7.73 X10^3/uL (2.7-7.7); Neutrophil % 74.2 % (47-70); POSITIVE MORPHOLOGY YES; Platelet Count 238 K/mm3 (150-450); RBC Distribution Width CV 17.8 % (11.6-14.6); RBC Distribution Width SD 65.1 fl (35.1-43.9); Red Blood Count 3.77 M/mm3 (4.6-6.2); White Blood Count 10.4 K/mm3 (4.4-11.0)
[2023-07-26 07:01] LABS: Differential Indicated SCAN CRITERIA MET
[2023-07-26 07:13] LABS: Anisocytosis 1+
[2023-07-26 07:20] LABS: Anion Gap 4 (5-15); BUN 64 mg/dL (7-18); BUN/Creat Ratio 21.8 RATIO (10-20); Calcium,Total 7.8 mg/dL (8.5-10.1); Chloride 110 mmol/L (98-107); Creatinine, Serum 2.93 mg/dL (0.70-1.30); EST Glomerular Filtration Rate 23 mL/min (>60); Est Glom Filt Rate - Afr Amer 28 mL/min (>60); Estimated Creatinine Clearance 26.99 ml/min; Glucose 231 mg/dL (74-106); Magnesium 2.2 mg/dL (1.6-2.6); Sodium Level 139 mmol/L (136-145)
--- NOTE | 2023-07-26 07:43 | PCM.PN.HOSP ---
Reason for Visit Reason for Visit: Diagnoses Unspecified malignant neoplasm of skin of left ear and external auricular canal (07/25/23) Atherosclerotic heart disease of elim [place] coronary artery without angina pectoris (07/25/23) Unspecified atrial fibrillation (07/25/23) Acute diastolic (congestive) heart failure (07/25/23) Chronic kidney disease, stage 4 (severe) (07/25/23) Liver transplant status (07/25/23) Subjective Subjective Patient is a 62-year-old gentleman who presented to the emergency department with progressive shortness of breath as well as weight gain and assessment of acute congestive heart failure made admitted to monitored bed for further management Objective Data Objective Data Vital Signs: Vital Signs Temp Pulse Resp BP Pulse Ox O2 Del Method 98.4 F 62 18 109/56 L 100 Room Air 07/26/23 02:03 07/26/23 02:03 07/26/23 02:03 07/26/23 02:03 07/26/23 02:03 07/26/23 02:03 Oxygen Delivery Method Room Air Weight: 167 kg Body Mass Index (BMI) 52.8 Intake & Output: Intake and Output for Last 24 Hours 07/24/23 07/25/23 07/26/23 23:59 23:59 23:59 Output Total 800 / 800 Balance -800 / -800 Lab / Micro Data 07/26/23 05:40 07/26/23 05:40 Labs: Laboratory Results - last 24 hr 07/25/23 14:04: WBC 11.1 H, RBC 4.09 L, Hgb 12.6 L, Hct 41.0, MCV 100.2 H, MCH 30.8, MCHC 30.7 L, RDW Std Deviation 65.1 H, RDW Coeff of Maciel 17.8 H, Plt Count 289, MPV 10.4, Immature Gran % (Auto) 2.500 H, Neut % (Auto) 87.2 H, Lymph % (Auto) 3.5 L, [place] % (Auto) 6.4, Eos % (Auto) 0.0, Baso % (Auto) 0.4, Absolute Neuts (auto) 9.7 H, Absolute Lymphs (auto) 0.39 L, Nucleated RBC % 0.2, Differential Comment SCANNED, Anisocytosis 2+, Macrocytosis 1+, Sodium 138, Potassium 4.5, Chloride 108 H, Carbon Dioxide 21.0, Anion Gap 9, BUN 60 H, Creatinine 2.98 H, Estim Creat Clear Calc 26.54, Est GFR (MDRD) Af Amer 28 L, Est GFR (MDRD) Non-Af 23 L, BUN/Creatinine Ratio 20.1 H, Glucose 288 H, Calcium 8.3 L, Total Bilirubin 0.60, Direct Bilirubin 0.21, AST 12 L, ALT 24, Alkaline Phosphatase 159 H, Troponin I High Sens 24, B-Natriuretic Peptide 246.3 H, Total Protein 6.0 L, Albumin 2.1 L, Globulin 3.9 07/25/23 19:00: Urine Color Yellow, Urine Clarity Sl. Cloudy, Urine pH 6.0, Ur Specific [place] 1.015, Urine Protein Negative, Urine Glucose (UA) Normal, Urine Ketones Negative, Urine Occult Blood Negative, Urine Nitrite Negative, Urine Bilirubin Negative, Urine Urobilinogen Normal, Ur Leukocyte Esterase Negative, Urine RBC 0 SEEN, Urine WBC 0-5 SEEN, Ur Squamous Epith Cells 0-5 SEEN, Urine Bacteria 0 SEEN, Urine Mucus 0 SEEN 07/26/23 05:40: WBC 10.4, RBC 3.77 L, Hgb 11.5 L, Hct 37.5 L, MCV 99.5 H, MCH 30.5, MCHC 30.7 L, RDW Std Deviation 65.1 H, RDW Coeff of Maciel 17.8 H, Plt Count 238, MPV 10.3, Immature Gran % (Auto) 2.100 H, Neut % (Auto) 74.2 H, Lymph % (Auto) 12.6 L, [place] % (Auto) 11.0 H, Eos % (Auto) 0.0, Baso % (Auto) 0.1, Absolute Neuts (auto) 7.7, Absolute Lymphs (auto) 1.31, Nucleated RBC % 0.2, Anisocytosis 1+, Sodium 139, Potassium 5.0, Chloride 110 H, Carbon Dioxide 25.0, Anion Gap 4 L, BUN 64 H, Creatinine 2.93 H, Estim Creat Clear Calc 26.99, Est GFR (MDRD) Af Amer 28 L, Est GFR (MDRD) Non-Af 23 L, BUN/Creatinine Ratio 21.8 H, Glucose 231 H, Calcium 7.8 L, Magnesium 2.2 Micro: Microbiology 07/25/23 14:28 Nasal Secretion SARS-CoV-2 & FLU Antigen (Rapid) - Final Radiography Diagnostic Testing: Radiology Impression Ankle X-Ray 07/25/23 14:35 IMPRESSION: Acute minimally displaced osteochondral bimalleolar fracture with diffuse soft tissue swelling. Orthopedic surgery consultation recommended Osteopenia Calcaneal spurs No evidence to suspect chronic calcific plantar fasciitis Electronically Signed: Balaji Zaman MD at 15:09 EST , Chest X-Ray 07/25/23 14:35 IMPRESSION: No acute pulmonary process Electronically Signed: Balaji Zaman MD at 15:07 EST , Physical Exam Narrative GENERAL: cooperative HEENT: Atraumatic; normocephalic EYES; Anicteric, Normal Conjunctiva NECK; supple, normal thyroid, RESPIRATORY: Diminished to auscultation CARDIOVASCULAR: Regular S1 S2, GI: soft, normoactive bowel sounds, : No Renal angle tenderness; EXTREMITIES: No edema, no clubbing, MUSCULOSKELETAL: Left ankle immobilized NEURO: Awake; no lateralizing signs. SKIN: No Rash PSYCH; Flat affect Assessment & Plan Assessment/Plan (1) Acute diastolic CHF (congestive heart failure): PLAN: Plan Patient is a 62-year-old gentleman who presented to the emergency department with progressive shortness of breath as well as weight gain and assessment of acute congestive heart failure made admitted to monitored bed for further management 1. Acute on chronic congestive heart failure with preserved ejection fraction ? Echo from 11/06/2022 demonstrated EF of 65%. Admitted to monitored bed managed with strict input and output, daily weights and low-sodium diet as well as diuretic therapy with furosemide 2. Recent fall with left bimalleolar fracture ? Pain control as needed with consultation placed to podiatry 3. Physical deconditioning - Requested for PT OT eval and social media senior associate to assist with discharge planning 4. Left ear cancer removal -Patient supposed to keep Vaseline on the area and keep it bandaged 5. CKD IV -Patient with variable baseline and seems to be on the upper end of recent range but still within range. Plan is to monitor with daily BMPs 6. Coronary artery disease ? With previous PCI in 2016 at [facility]. Patient remains on guideline directed medical therapy 7. GERD ? Patient is on famotidine 8. Adrenal insufficiency ? Patient is on hydrocortisone continue at home dose 9. Gout ? Patient is alert. 10. History of cirrhosis of the liver with liver transplant ? Patient is on tacrolimus, rifaximin, lactulose, continued 11. Paroxysmal A-fib ? Rate controlled with amiodarone as well as beta-blockers. Patient is systemic anticoagulation with apixaban continued 12. Hypothyroidism - Patient is on levothyroxine home dose continued 13. Depression ? Patient is on citalopram 14. Class III obesity with BMI of 53 ? Complicating care, Weight loss advised 15. DVT prophylaxis ? On apixaban Time spent in the patient's overall evaluation,decision-making process, review of diagnostic data, adjustment of management, discussion with other providers, nursing nursing and ancillary staff involved in patient's care documentation, 52 Minutes Charges/Coding Visit Charges Inpatient E&M: 86503 [facility] Hosp L3
[2023-07-26] MEDS: Allopurinol 300 MG Tablet PO (08:41)
[2023-07-26] MEDS: Famotidine 20 MG Tablet PO (08:41)
[2023-07-26] MEDS: Amiodarone 200 MG Tablet PO (08:41)
[2023-07-26] MEDS: Ursodiol 250 MG Tablet PO ×2 (08:41→20:53)
[2023-07-26] MEDS: Hydrocortisone 10 MG Tablet 20 MG PO (08:41)
[2023-07-26] MEDS: Smz/Tmp Ds Tablet 0.5 TABLET PO (08:45)
[2023-07-26] MEDS: rifAXIMin 550 MG Tablet PO ×2 (08:45→20:53)
[2023-07-26] MEDS: APIXABAN 5 MG TABLET PO ×2 (08:47→20:52)
[2023-07-26] MEDS: Tacrolimus 0.5 MG Capsule PO ×2 (08:47→20:53)
--- NOTE | 2023-07-26 09:45 | CON.PCM_ITS ---
Assessment & Plan Assessment/Plan (1) Bimalleolar avulsion fracture of left ankle: PLAN: Exam performed Radiographs reviewed demonstrate pronation abduction type bimalleolar ankle fracture Will order CT scan for further evaluation Will plan for ORIF once medically stable -discussed with hospitalist patient likely stable for ORIF on Saturday as patient is in acute CHF exacerbation Will plan for definitive ORIF of bimalleolar left ankle fracture on Saturday All inherent risks benefits and alternative treatments discussed with patient and family in great detail -patient wishes to proceed HPI Consult Data Date of Consult: 07/26/23 HPI Narrative HPI Narrative: ESTEFANIA MILLER, is a 62 M who presents admitted overnight for left ankle bimalleolar fracture. Patient unable to maintain nonweightbearing status and admitted for shortness of breath. Patient notes well-controlled pain at current with intact splint to left lower extremity. Patient has multiple medical problems including but not limited to chronic kidney disease, obesity, liver transplant patient with immunosuppressants. No new issues overnight. [facility] Medical History (HFpEF) heart failure with preserved ejection fraction Acidosis, lactic Acute hypotension Adrenal insufficiency Adult failure to thrive Anasarca Anemia of chronic disease Anxiety Ascites Atherosclerotic heart disease of [place] coronary artery without angina pectoris Atrial fibrillation Atrial flutter with rapid ventricular response (02/02/21) BMI 50.0-59.9, adult CAD (coronary artery disease) Cellulitis Chest pain Chronic anticoagulation Chronic diastolic congestive heart failure Chronic kidney disease, stage 3b CKD (chronic kidney disease), stage IV Closed left humeral fracture Coronary artery disease Debility Elevated troponin Gout History of non-ST elevation myocardial infarction (NSTEMI) (12/29/20) Hypertension Insomnia Iron deficiency anemia Kidney disease Lactic acidosis Lumbar radiculopathy Malaise and fatigue Morbid obesity Multiple falls FELIPE (nonalcoholic steatohepatitis) Nonsustained paroxysmal ventricular tachycardia (12/2020) Osteoarthritis of ankle and foot PAF (paroxysmal atrial fibrillation) Periprosthetic fracture around internal prosthetic joint Right hip pain Seborrhea of face SOB (shortness of breath) Stage 3b chronic kidney disease (CKD) Unable to ambulate Venous insufficiency Vertigo, central Weakness Home Medications apixaban 5 mg tablet (Eliquis) 5 mg PO BID BLOOD THINNER 07/20/22 [History Last Taken 07/25/23 09:00] allopurinol 300 mg tablet 300 mg PO DAILY GOUT 11/04/22 [History Last Taken 07/25/23 09:00] tacrolimus 0.5 mg capsule, immediate-release 0.5 mg PO Q12H LIVER TRANSPLANT 11/06/22 [History Last Taken 07/25/23 09:00] nitroglycerin 0.4 mg sublingual tablet 0.4 mg sublingual Q5M PRN CHEST PAIN #25 tabs 11/27/22 [Rx Last Taken Unknown] citalopram 10 mg tablet 10 mg PO DAILY MOOD 02/08/23 [History Last Taken 07/24/23 21:00] amiodarone 200 mg tablet 200 mg PO DAILY BLOOD PRESSURE 02/14/23 [History Last Taken 07/24/23 21:00] ursodiol 300 mg capsule 300 mg PO BID GALLSTONES 02/14/23 [History Last Taken 07/25/23 09:00] prochlorperazine maleate 5 mg tablet 5 mg PO Q6H PRN NAUSEA/VOMITING 03/10/23 [History Last Taken 07/24/23 21:00] famotidine 20 mg tablet 20 mg PO Q12H ACID REFLUX 04/24/23 [History Last Taken 07/25/23 09:00] levothyroxine 25 mcg tablet 25 mcg PO DAILY THYROID 04/24/23 [History Last Taken 07/24/23 21:00] oxycodone 10 mg tablet 10 mg PO TID PRN BTP 04/24/23 [History Last Taken 07/25 14:00] polysaccharide iron complex 150 mg iron capsule (Ferrex) 150 mg PO DAILY supplment 05/14/23 [History Last Taken 07/24/23 21:00] potassium chloride 20 mEq tablet,extended release(part/cryst) (Klor-Con M) 20 meq PO DAILY help with potassium #30 tabs 05/18/23 [Rx Last Taken Unknown] bumetanide 2 mg tablet 2 mg PO DAILY water pill 05/31/23 [History Last Taken 07/25/23 09:00] hydrocortisone 10 mg tablet 10 mg PO .COMPLEX help with legs 06/05/23 [History Last Taken 07/25/23 09:00] metoprolol tartrate 25 mg tablet 12.5 mg PO BID heart 06/05/23 [History Last Taken 07/25/23 09:00] sacubitril 49 mg-valsartan 51 mg tablet (Entresto) 1 tab PO BID repair heart muscle 06/05/23 [History Last Taken 07/25/23 09:00] lactulose 20 gram/30 mL oral solution 20 g (30 mL) PO TID liver disease #1,200 mL 06/07/23 [Rx Last Taken 07/24/23 21:00] rifaximin 550 mg tablet (Xifaxan) 550 mg PO BID help with liver #60 tabs 06/07/23 [Rx Last Taken 07/25/23 09:00] sulfamethoxazole 400 mg-trimethoprim 80 mg tablet 1 tab PO DAILY liver transplant 07/25/23 [History Last Taken 07/25/23 09:00] Allergy/AdvReac Type Severity Reaction Status Date / Time morphine Allergy Hives Verified 07/25/23 13:44 pravastatin [From Pravachol] Allergy Hives Verified 07/25/23 13:44 Dcelsph-HNL-LgK Reductase Allergy Hives Verified 07/25/23 13:44 Inhibitor [Fckdnrk-Ajg-Twu Reductase Inhibitor] vancomycin Allergy NEEDS Verified 07/25/23 13:44 FOLLOW-UP zolpidem tartrate Allergy Hives Verified 07/25/23 13:44 [From Ambien] everolimus AdvReac Swelling Verified 07/25/23 13:44 gabapentin AdvReac NEEDS Verified 07/25/23 13:44 FOLLOW-UP Family History Mother Heart disease Father Heart disease Surgical History H/O shoulder surgery History of cardioversion (02/02/21) History of cataract extraction with lens replacement (~11/22/22) History of hip surgery History of liver transplant Liver transplant recipient S/P PTCA (percutaneous transluminal coronary angioplasty) Status post liver transplant (07/2017) Social History household members: spouse Smoking Status: Never smoker alcohol intake: former substance use type: does not use caffeine: No ROS Constitutional Constitutional: Denies daytime sleepiness, difficulty sleeping or malaise Eyes Eyes: Denies blindness, blind spots or decreased night vision ENT HEENT: Denies change in voice, dental pain or foreign body in nose Cardiovascular Cardiovascular: Reports leg edema; Denies chest pain with activity or claudication Respiratory/Chest Respiratory/Chest: Denies change in phlegm color, dyspnea on exertion or nail bed cyanosis Physical Exam Narrative Dorsalis pedis posterior tibial pulses palpable bilaterally. +2 pitting edema noted to left lower extremity. Ecchymosis noted to the lateral left ankle no evidence of fracture blisters Diffuse ankle pain the left ankle status post fracture this was not manipulated No sign DVT left lower extremity or right lower extremity Const alert and oriented x3 Lab / Micro Data 07/26/23 05:40 07/26/23 05:40 Labs: Laboratory Results - last 24 hr 07/25/23 14:04: WBC 11.1 H, RBC 4.09 L, Hgb 12.6 L, Hct 41.0, MCV 100.2 H, MCH 30.8, MCHC 30.7 L, RDW Std Deviation 65.1 H, RDW Coeff of Maciel 17.8 H, Plt Count 289, MPV 10.4, Immature Gran % (Auto) 2.500 H, Neut % (Auto) 87.2 H, Lymph % (Auto) 3.5 L, [place] % (Auto) 6.4, Eos % (Auto) 0.0, Baso % (Auto) 0.4, Absolute Neuts (auto) 9.7 H, Absolute Lymphs (auto) 0.39 L, Nucleated RBC % 0.2, Differential Comment SCANNED, Anisocytosis 2+, Macrocytosis 1+, Sodium 138, Potassium 4.5, Chloride 108 H, Carbon Dioxide 21.0, Anion Gap 9, BUN 60 H, Cre atinine 2.98 H, Estim Creat Clear Calc 26.54, Est GFR (MDRD) Af Amer 28 L, Est GFR (MDRD) Non-Af 23 L, BUN/Creatinine Ratio 20.1 H, Glucose 288 H, Calcium 8.3 L, Total Bilirubin 0.60, Direct Bilirubin 0.21, AST 12 L, ALT 24, Alkaline Phosp hatase 159 H, Troponin I High Sens 24, B-Natriuretic Peptide 246.3 H, Total Protein 6.0 L, Albumin 2.1 L, Globulin 3.9 07/25/23 19:00: Urine Color Yellow, Urine Clarity Sl. Cloudy, Urine pH 6.0, Ur Specific [place] 1.015, Urine Protein Negative, Urine Glucose (UA) Normal, Urine Ketones Negative, Urine Occult Blood Negative, Urine Nitrite Negative, Urine Bilirubin Negative, Urine Urobilinogen Normal, Ur Leukocyte Esterase Negative, Urine RBC 0 SEEN, Urine WBC 0-5 SEEN, Ur Squamous Epith Cells 0-5 SEEN, Urine Bacteria 0 SEEN, Urine Mucus 0 SEEN 07/26/23 05:40: WBC 10.4, RBC 3.77 L, Hgb 11.5 L, Hct 37.5 L, MCV 99.5 H, MCH 30.5, MCHC 30.7 L, RDW Std Deviation 65.1 H, RDW Coeff of Maciel 17.8 H, Plt Count 238, MPV 10.3, Immature Gran % (Auto) 2.100 H, Neut % (Auto) 74.2 H, Lymph % (Auto) 12.6 L, [place] % (Auto) 11.0 H, Eos % (Auto) 0.0, Baso % (Auto) 0.1, Absolute Neuts (auto) 7.7, Absolute Lymphs (auto) 1.31, Nucleated RBC % 0.2, Anisocytosis 1+, Sodium 139, Potassium 5.0, Chloride 110 H, Carbon Dioxide 25.0, Anion Gap 4 L, BUN 64 H, Creatinine 2.93 H, Estim Creat Clear Calc 26.99, Est GFR (MDRD) Af Amer 28 L, Est GFR (MDRD) Non-Af 23 L, BUN/Creatinine Ratio 21.8 H , Glucose 231 H, Calcium 7.8 L, Magnesium 2.2 Micro: Microbiology 07/25/23 14:28 Nasal Secretion SARS-CoV-2 & FLU Antigen (Rapid) - Final Imagaing Radiology Impression Ankle X-Ray 07/25/23 14:35 IMPRESSION: Acute minimally displaced osteochondral bimalleolar fracture with diffuse soft tissue swelling. Orthopedic surgery consultation recommended Osteopenia Calcaneal spurs No evidence to suspect chronic calcific plantar fasciitis Electronically Signed: Balaji Zaman MD at 15:09 EST Reading Location ID and State: [address] [place] [address] , Service support , Chest X-Ray 07/25/23 14:35 IMPRESSION: No acute pulmonary process Electronically Signed: Balaji Zaman MD at 15:07 EST ,
[2023-07-26] MEDS: HYDROmorphone 0.5 MG/0.5 ML SYRINGE IV ×2 (10:39→20:56)
[2023-07-26] MEDS: SACUBITRIL/VALSARTAN 24/26 MG TABLET 1 EACH PO ×2 (10:40→20:52)
[2023-07-26] MEDS: Metoprolol Tartrate 25 MG Tablet 12.5 MG PO ×2 (10:40→21:56)
[2023-07-26] MEDS: Citalopram 10 MG Tablet PO (10:40)
[2023-07-26] MEDS: Furosemide 100 MG/10 ML Vial 80 MG IV ×2 (10:41→16:45)
--- NOTE | 2023-07-26 11:20 | CT_ITS ---
STUDY: CT LEFT ANKLE WITHOUT CONTRAST REASON FOR EXAM: Male, 62 years old. Ankle fracture. Workup. RADIATION DOSAGE (If Supplied By Facility): CTDIvol = ( 15.35 ) mGy, DLP = ( 511.11 ) mGycm TECHNIQUE: Contiguous axial images of the left ankle were obtained without contrast. Coronal and sagittal reconstruction and bone and soft tissue algorithm images were also provided for interpretation. Individualized dose optimization techniques were used for this CT. COMPARISON: X-rays of the left ankle dated July 25, 2023. FINDINGS: Marked osteopenia. Comminuted fractures of the base of the medial malleolus and the distal fibula originating at the tibiotalar joint. Small triangular shaped minimally displaced fracture of the posterior malleolus. Moderate arthrosis of the tibiotalar joint, the subtalar joint, the talonavicular joint, the remainder of the midfoot and the tarsometatarsal joints. Diffuse soft tissue swelling. CT/Extremity Lower without Contra IMPRESSION: Osteopenia with trimalleolar fracture and osteoarthrosis with diffuse soft tissue swelling. Electronically Signed: Raul Luna MD at 11:37 EST ,
--- NOTE | 2023-07-26 13:00 | CASEMGMT ---
ASHANTI BROOKE Discharge Planning Assessment: Face to Face with patient for initial transition planning/care coordination assessment. ASHANTI BROOKE introduced self and role at [facility], pt voices understanding. Pt alert, answers questions appropriately and is agreeable to participating in assessment with at bedside. Care providers, pharmacy, and demographics verified. PCP: [facility] Specialists: Dov (chemist inorganic), William (hoop maker helper machine), Friend (GI) Preferred Pharmacy: [facility] Insurance: [facility] HMO, states is changing back to [facility] effective 09/02/23 Prescription Benefit: yes Living Will/HPOA: yes, HPOA Sheba LNOK: Sheba, daughter Frida Living Arrangements: Pt lives with his in a single wide mobile home with a ramp entrance. Pt states he is able to bath himself and his assists him with some dressing. Pt's assists with medicine management and the majority of the meals and his daughter assists with paying bills. Pt states he has difficulty standing for long periods of time due to his legs getting weak which limits his ability to assist with houshold tasks. Transportation: Pt's provides transportation. Pt drives on a rare occasion. DME: shower chair, grab bars, raised toilet seat, cane, walker, rollator, w/c, hospital bed SNF: [facility] HHC: [facility] Pt's goal: Pt states he understands that he will be non-weight bearing after his surgery on Saturday. Pt states he is concerned his will not be able to manage his care at home due to his size complicating his non-weightbearing status. Pt states he would prefer to go to TCU at discharge. Informed pt that TCU has limited bed availability in the next week so we will have to check to see if this will be an option. Pt and his both state that the care he received at the [facility] was not adequate and that if he is unable to go to TCU then pt will go home. They state that due to pt's weight, he has not been a candidate for other facilities in the past and pt's wants pt to remain in [facility] to facilitate her ability to visit. Pt states his son-in-law is modifying their bedroom and bathroom doorways to facilitate his ability to maneuver his w/c through. Discussed removal of hand sizing machine and drier operator on wheels to decrease the width of the w/c. Pt's states pt's wheelchair is bariatric and they are not sure this would provide any extra room but will consider. Discussed possible need for BSC if goes home but pt feels he may be able to manage as their bathroom is not very big. SW notified of pt and pt's 's concerns and potential plan for SNF at discharge. Plan: Likely SNF but will re-evaluate pt after OR and pt's participation in PT/OT. Maira Gilmore RN CM
[2023-07-26] MEDS: 0.9% Saline Lock 10 ML Syringe IV (13:29)
[2023-07-26] MEDS: HYDROmorphone 1 MG/ML Syringe IV (13:29)
--- NOTE | 2023-07-26 13:30 | CASEMGMT ---
Social Work SW did leave a message regarding pt with TCU, as this is where he would like to go for rehab. SW met w/pt in room, pt's daughter and her family present. SW let pt know that SW did leave a message for TCU, but it is not clear if there will be a bed available for pt when he is ready for discharge. Pt states he is aware will need to go somewhere even if TCU cannot take him. SW provided to pt a list of nursing home facilities via [employer], in pt's preferred geographic area, in pt's insurance network and complete w/quality and resource use data. SW asked pt to review list and come up w/some alternatives in the event TCU cannot take him. Pt states understanding. Daughter and pt both state that they do not want pt to go to [facility], pt has been there before and he did not receive good care there, as per pt and daughter. SW encouraged family to go visit places. Pt is having surgery Saturday, SW will likely follow up w/pt and family on Saturday or Saturday. ESTER Costello
--- NOTE | 2023-07-26 15:22 | PCM.CONS.R ---
Assessment & Plan Assessment/Plan (1) Acute on chronic kidney failure: PLAN: Creatinine 2.93 eGFR 23cc/min. No need for dialysis at this time. Decrease Entresto dose. (2) CKD (chronic kidney disease), stage IV: PLAN: baseline creatinien 2.3 to 2.5 (3) Hyperkalemia: PLAN: decrease entresto dose, stop potassium (4) Acute diastolic CHF (congestive heart failure): PLAN: continue to monitor renal fxn while on iv lasix. BNP not high at 246. (5) Liver transplant recipient: PLAN: on tacrolimus (6) Bimalleolar avulsion fracture of left ankle: (7) Hypertension: QUALIFIERS: Hypertension type: primary hypertension Qualified Code(s): I10 - Essential (primary) hypertension PLAN: stable BP (8) Atrial fibrillation: QUALIFIERS: Atrial fibrillation type: unspecified chronic Qualified Code(s): I48.20 - Chronic atrial fibrillation, unspecified (9) Coronary artery disease: QUALIFIERS: Coronary Disease-Associated Artery/Lesion type: [place] artery HPI Consult Data Date of Consult: 07/27/23 HPI Narrative Reason for Consultation: acute on CKD stage 4 HPI Narrative: ESTEFANIA MILLER, is a 62 yo morbidly obese M who presents with left ankle fracture, leg gave out at his family gathering. He complains of increased weight and swelling with lower dose of bumex. Dose decreased due to rise in creatinine to 3.0 on 07/16/23 baseline creatinine 2.3 to 2.5 eGFR 35-30cc/min. Currently denies nausea, vomiting, chest pain, shortness of breath. He is on iv lasix twice a day. Creatinine 2.6 to 2.98 to 2.93 eGFR 23cc/min today. Potassium elevated at 5.0 on Entresto. He states he would agree to dialysis if needed on a chronic basis. He is s/p liver transplant that took 22 hours to perform. Asked if he could get a kidney transplant. Due to his high BMI he would not be a candidate. COUNT INCLUDES [facility] Medical History (HFpEF) heart failure with preserved ejection fraction Acidosis, lactic Acute hypotension Adrenal insufficiency Adult failure to thrive Anasarca Anemia of chronic disease Anxiety Ascites Atherosclerotic heart disease of [place] coronary artery without angina pectoris Atrial fibrillation Atrial flutter with rapid ventricular response (02/02/21) BMI 50.0-59.9, adult CAD (coronary artery disease) Cellulitis Chest pain Chronic anticoagulation Chronic diastolic congestive heart failure Chronic kidney disease, stage 3b CKD (chronic kidney disease), stage IV Closed left humeral fracture Coronary artery disease Debility Elevated troponin Gout History of non-ST elevation myocardial infarction (NSTEMI) (12/29/20) Hypertension Insomnia Iron deficiency anemia Kidney disease Lactic acidosis Lumbar radiculopathy Malaise and fatigue Morbid obesity Multiple falls FELIPE (nonalcoholic steatohepatitis) Nonsustained paroxysmal ventricular tachycardia (12/2020) Osteoarthritis of ankle and foot PAF (paroxysmal atrial fibrillation) Periprosthetic fracture around internal prosthetic joint Right hip pain Seborrhea of face SOB (shortness of breath) Stage 3b chronic kidney disease (CKD) Unable to ambulate Venous insufficiency Vertigo, central Weakness Home Medications apixaban 5 mg tablet (Eliquis) 5 mg PO BID BLOOD THINNER 07/20/22 [History Last Taken 07/25/23 09:00] allopurinol 300 mg tablet 300 mg PO DAILY GOUT 11/04/22 [History Last Taken 07/25/23 09:00] tacrolimus 0.5 mg capsule, immediate-release 0.5 mg PO Q12H LIVER TRANSPLANT 11/06/22 [History Last Taken 07/25/23 09:00] nitroglycerin 0.4 mg sublingual tablet 0.4 mg sublingual Q5M PRN CHEST PAIN #25 tabs 11/27/22 [Rx Last Taken Unknown] citalopram 10 mg tablet 10 mg PO DAILY MOOD 02/08/23 [History Last Taken 07/24/23 21:00] amiodarone 200 mg tablet 200 mg PO DAILY BLOOD PRESSURE 02/14/23 [History Last Taken 07/24/23 21:00] ursodiol 300 mg capsule 300 mg PO BID GALLSTONES 02/14/23 [History Last Taken 07/25/23 09:00] prochlorperazine maleate 5 mg tablet 5 mg PO Q6H PRN NAUSEA/VOMITING 03/10/23 [History Last Taken 07/24/23 21:00] famotidine 20 mg tablet 20 mg PO Q12H ACID REFLUX 04/24/23 [History Last Taken 07/25/23 09:00] levothyroxine 25 mcg tablet 25 mcg PO DAILY THYROID 04/24/23 [History Last Taken 07/24/23 21:00] oxycodone 10 mg tablet 10 mg PO TID PRN BTP 04/24/23 [History Last Taken 07/25/23 14:00] polysaccharide iron complex 150 mg iron capsule (Ferrex) 150 mg PO DAILY supplment 05/14/23 [History Last Taken 07/24/23 21:00] potassium chloride 20 mEq tablet,extended release(part/cryst) (Klor-Con M) 20 meq PO DAILY help with potassium #30 tabs 05/18/23 [Rx Last Taken Unknown] bumetanide 2 mg tablet 2 mg PO DAILY water pill 05/31/23 [History Last Taken 07/25/23 09:00] hydrocortisone 10 mg tablet 10 mg PO .COMPLEX help with legs 06/05/23 [History Last Taken 07/25/23 09:00] metoprolol tartrate 25 mg tablet 12.5 mg PO BID heart 06/05/23 [History Last Taken 07/25/23 09:00] sacubitril 49 mg-valsartan 51 mg tablet (Entresto) 1 tab PO BID repair heart muscle 06/05/23 [History Last Taken 07/25/23 09:00] lactulose 20 gram/30 mL oral solution 20 g (30 mL) PO TID liver disease #1,200 mL 06/07/23 [Rx Last Taken 07/24/23 21:00] rifaximin 550 mg tablet (Xifaxan) 550 mg PO BID help with liver #60 tabs 06/07/23 [Rx Last Taken 07/25/23 09:00] sulfamethoxazole 400 mg-trimethoprim 80 mg tablet 1 tab PO DAILY liver transplant 07/25/23 [History Last Taken 07/25/23 09:00] Allergy/AdvReac Type Severity Reaction Status Date / Time morphine Allergy Hives Verified 07/25/23 13:44 pravastatin [From Pravachol] Allergy Hives Verified 07/25/23 13:44 Kxnrbne-SID-JgN Reductase Allergy Hives Verified 07/25/23 13:44 Inhibitor [Infshee-Oqe-Swb Reductase Inhibitor] vancomycin Allergy NEEDS Verified 07/25/23 13:44 FOLLOW-UP zolpidem tartrate Allergy Hives Verified 07/25/23 13:44 [From Ambien] everolimus AdvReac Swelling Verified 07/25/23 13:44 gabapentin AdvReac NEEDS Verified 07/25/23 13:44 FOLLOW-UP Family History Mother Heart disease Father Heart disease Surgical History H/O shoulder surgery History of cardioversion (02/02/21) History of cataract extraction with lens replacement (~11/22/22) History of hip surgery History of liver transplant Liver transplant recipient S/P PTCA (percutaneous transluminal coronary angioplasty) Status post liver transplant (07/2017) Social History household members: spouse Smoking Status: Never smoker alcohol intake: former substance use type: does not use caffeine: No ROS Constitutional Constitutional: Reports weakness and weight gain; Denies chills or fever(s) Eyes Eyes: Denies blindness ENT HEENT: Denies nasal congestion Cardiovascular Cardiovascular: Reports edema and irregular heart rhythm Respiratory/Chest Respiratory/Chest: Reports dyspnea on exertion; Denies dry cough Gastrointestinal Gastrointestinal: Denies abdominal pain, anorexia, diarrhea, nausea or vomiting Genitourinary Genitourinary: Denies change in urinary stream Musculoskeletal Musculoskeletal: Reports abnormal gait and other Details: weakness Neurologic Neurologic: Reports weakness Psychiatric Psychiatric: Denies anxiety or confusion Hematologic/Lymphatic Hematologic/Lymphatic: Reports anemia Physical Exam Const alert and oriented x3 General Appearance: well developed Nutritional Appearance: morbidly obese Eyes EOMs intact bilaterally Resp clear to auscultation bilaterally Cardio Rhythm: abnormal rhythm irregularly irregular GI non-tender and non-distended Auscultation: normoactive bowel sounds Palpation: soft Extremity General Extremity: edema bilateral (2+, cast LLE) lower extremity Neuro CN's II-XII intact bilaterally Sensorium / Orientation: awake and alert Psych cooperative Lab / Micro Data 07/26/23 05:40 07/27/23 07:49 Labs: Laboratory Results - last 24 hr 07/25/23 19:00: Urine Color Yellow, Urine Clarity Sl. Cloudy, Urine pH 6.0, Ur Specific [place] 1.015, Urine Protein Negative, Urine Glucose (UA) Normal, Urine Ketones Negative, Urine Occult Blood Negative, Urine Nitrite Negative, Urine Bilirubin Negative, Urine Urobilinogen Normal, Ur Leukocyte Esterase Negative, Urine RBC 0 SEEN, Urine WBC 0-5 SEEN, Ur Squamous Epith Cells 0-5 SEEN, Urine Bacteria 0 SEEN, Urine Mucus 0 SEEN 07/26/23 05:40: WBC 10.4, RBC 3.77 L, Hgb 11.5 L, Hct 37.5 L, MCV 99.5 H, MCH 30.5, MCHC 30.7 L, RDW Std Deviation 65.1 H, RDW Coeff of Maciel 17.8 H, Plt Count 238, MPV 10.3, Immature Gran % (Auto) 2.100 H, Neut % (Auto) 74.2 H, Lymph % (Auto) 12.6 L, [place] % (Auto) 11.0 H, Eos % (Auto) 0.0, Baso % (Auto) 0.1, Absolute Neuts (auto) 7.7, Absolute Lymphs (auto) 1.31, Nucleated RBC % 0.2, Anisocytosis 1+, Sodium 139, Potassium 5.0, Chloride 110 H, Carbon Dioxide 25.0, Anion Gap 4 L, BUN 64 H, Creatinine 2.93 H, Estim Creat Clear Calc 26.99, Est GFR (MDRD) Af Amer 28 L, Est GFR (MDRD) Non-Af 23 L, BUN/Creatinine Ratio 21.8 H, Glucose 231 H, Calcium 7.8 L, Magnesium 2.2 Micro: Microbiology 07/25/23 14:28 Nasal Secretion SARS-CoV-2 & FLU Antigen (Rapid) - Final Imagaing Radiology Impression Echocardiogram 07/25/23 18:12 Interpretation Summary Mild concentric left ventricular hypertrophy. The left ventricular ejection fraction is 65 %. Normal diastology for age. Mildly dilated aortic root. The study was technically difficult. Ordering Physician: Sadie Salazar Referring Physician: Lance Bose Chi Performed By: Deepa Frazier, WILEY, RVT Lower Extremity CT 07/26/23 11:20 IMPRESSION: Osteopenia with trimalleolar fracture and osteoarthrosis with diffuse soft tissue swelling. Electronically Signed: Raul Luna MD at 11:37 EST ,
[2023-07-26] MEDS: Hydrocortisone 10 MG Tablet PO (16:46)
[2023-07-26] MEDS: Insulin Lispro 100 UNIT/ML INSULN.PEN SC (20:52)
[2023-07-26 21:45] LABS: Bedside Glucose 209 mg/dL (74-106)
[2023-07-27] VITALS (9 sets, daily range): BP systolic 104–129; BP diastolic 50–106; PULSE 63–73; RESP 16–18; TEMP 36.4–36.7; O2SAT 97–99; BMI 53.3
[2023-07-27] MEDS: oxyCODONE 5 MG Tablet 10 MG PO ×3 (03:31→20:17)
[2023-07-27] MEDS: Levothyroxine 25 MCG TABLET PO (06:04)
[2023-07-27] MEDS: Insulin Lispro 100 UNIT/ML INSULN.PEN SC ×4 (06:04→21:26)
[2023-07-27] MEDS: Lactulose 20 GM/30 ML UDC PO ×2 (06:04→21:19)
[2023-07-27 06:33] LABS: Bedside Glucose 217 mg/dL (74-106)
[2023-07-27] MEDS: rifAXIMin 550 MG Tablet PO ×2 (08:09→21:22)
[2023-07-27] MEDS: SACUBITRIL/VALSARTAN 24/26 MG TABLET 1 EACH PO (08:09)
[2023-07-27] MEDS: Ursodiol 250 MG Tablet PO ×2 (08:09→21:22)
[2023-07-27] MEDS: Famotidine 20 MG Tablet PO (08:09)
[2023-07-27] MEDS: Metoprolol Tartrate 25 MG Tablet 12.5 MG PO ×2 (08:09→21:20)
[2023-07-27] MEDS: Tacrolimus 0.5 MG Capsule PO ×2 (08:09→21:21)
[2023-07-27] MEDS: Smz/Tmp Ds Tablet 0.5 TABLET PO (08:09)
[2023-07-27] MEDS: HYDROmorphone 0.5 MG/0.5 ML SYRINGE IV (08:10)
[2023-07-27] MEDS: Hydrocortisone 10 MG Tablet 20 MG PO (08:10)
[2023-07-27] MEDS: Amiodarone 200 MG Tablet PO (08:10)
[2023-07-27] MEDS: Citalopram 10 MG Tablet PO (08:10)
[2023-07-27] MEDS: 0.9% Saline Lock 10 ML Syringe IV ×4 (08:10→22:49)
[2023-07-27] MEDS: Allopurinol 300 MG Tablet PO (08:10)
[2023-07-27] MEDS: Glucerna Shake 120 ML LIQUID PO (08:16)
--- NOTE | 2023-07-27 08:17 | PCM.PN.HOSP ---
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 Patient requested a switch in his diuretic therapy from furosemide to bumetanide which was done. Consult also placed to nephrology. Objective Data Objective Data Vital Signs: Vital Signs Temp Pulse Resp BP Pulse Ox O2 Del Method 97.8 F 67 18 129/56 H 97 Room Air 07/27/23 08:00 07/27/23 08:09 07/27/23 08:00 07/27/23 08:09 07/27/23 08:00 07/27/23 08:00 Oxygen Delivery Method Room Air Weight: 168.5 kg Body Mass Index (BMI) 53.3 Intake & Output: Intake and Output for Last 24 Hours 07/25/23 07/26/23 07/27/23 23:59 23:59 23:59 Intake Total 550 / 795 445 / 445 Output Total 800 / 950 300 / 300 Balance -250 / -155 145 / 145 Lab / Micro Data 07/26/23 05:40 07/27/23 07:49 Labs: Laboratory Results - last 24 hr 07/26/23 20:47: POC Glucose 209 H 07/27/23 05:45: Sodium Cancelled, Potassium Cancelled, Chloride Cancelled, Carbon Dioxide Cancelled, BUN Cancelled, Creatinine Cancelled, Estim Creat Clear Calc Cancelled, Est GFR (MDRD) Af Amer Cancelled, Est GFR (MDRD) Non-Af Cancelled, BUN/Creatinine Ratio Cancelled, Glucose Cancelled, Calcium Cancelled, Phosphorus Cancelled, Albumin Cancelled 07/27/23 06:03: POC Glucose 217 H Micro: Microbiology 07/25/23 14:28 Nasal Secretion SARS-CoV-2 & FLU Antigen (Rapid) - Final Radiography Diagnostic Testing: Radiology Impression Echocardiogram 07/25/23 18:12 Interpretation Summary Mild concentric left ventricular hypertrophy. The left ventricular ejection fraction is 65 %. Normal diastology for age. Mildly dilated aortic root. The study was technically difficult. Ordering Physician: Sadie Salazar Referring Physician: Lance Bose Chi Performed By: Deepa Frazier, RDCS, RVT Lower Extremity CT 07/26/23 11:20 IMPRESSION: Osteopenia with trimalleolar fracture and osteoarthrosis with diffuse soft tissue swelling. Electronically Signed: Raul Luna MD at 11:37 EST , Physical Exam Narrative GENERAL: cooperative HEENT: Atraumatic; normocephalic EYES; Anicteric, Normal Conjunctiva NECK; supple, normal thyroid, RESPIRATORY: Diminished to auscultation CARDIOVASCULAR: Regular S1 S2, GI: soft, normoactive bowel sounds, : No Renal angle tenderness; EXTREMITIES: No edema, no clubbing, MUSCULOSKELETAL: Left ankle immobilized NEURO: Awake; no lateralizing signs. SKIN: No Rash PSYCH; Flat affect Assessment & Plan Assessment/Plan (1) Acute diastolic CHF (congestive heart failure): PLAN: Plan Patient is a 62-year-old gentleman who presented to the emergency department with progressive shortness of breath as well as weight gain and assessment of acute congestive heart failure made admitted to monitored bed for further management 1. Acute on chronic congestive heart failure with preserved ejection fraction ? Echo from 11/06/2022 demonstrated EF of 65%. Admitted to monitored bed managed with strict input and output, daily weights and low-sodium diet as well as diuretic therapy with furosemide ? 07/27/2023; patient switched from Lasix to be admitted being 2. Recent fall with left bimalleolar fracture ? Pain control as needed with consultation placed to podiatry 3. Physical deconditioning - Requested for PT OT eval and social work coordinator to assist with discharge planning 4. Left ear cancer removal -Patient supposed to keep Vaseline on the area and keep it bandaged 5. CKD IV -Patient with variable baseline and seems to be on the upper end of recent range but still within range. Plan is to monitor with daily BMPs ? 07/27/2023; consult placed to nephrology given rise in his kidney function 6. Coronary artery disease ? With previous PCI in 2016 at [facility]. Patient remains on guideline directed medical therapy 7. GERD ? Patient is on famotidine 8. Adrenal insufficiency ? Patient is on hydrocortisone continue at home dose 9. Gout ? Patient is alert. 10. History of cirrhosis of the liver with liver transplant ? Patient is on tacrolimus, rifaximin, lactulose, continued 11. Paroxysmal A-fib ? Rate controlled with amiodarone as well as beta-blockers. Patient is systemic anticoagulation with apixaban continued 12. Hypothyroidism - Patient is on levothyroxine home dose continued 13. Depression ? Patient is on citalopram 14. Class III obesity with BMI of 53 ? Complicating care, Weight loss advised 15. DVT prophylaxis ? On apixaban Time spent in the patient's overall evaluation,decision-making process, review of diagnostic data, adjustment of management, discussion with other providers, nursing nursing and ancillary staff involved in patient's care documentation,35 Minutes Charges/Coding Visit Charges Inpatient E&M: 06125 [facility] Hosp L2
[2023-07-27 08:46] LABS: BUN 71 mg/dL (7-18); Calcium,Total 8.2 mg/dL (8.5-10.1); Chloride 108 mmol/L (98-107); Creatinine, Serum 3.38 mg/dL (0.70-1.30); EST Glomerular Filtration Rate 20 mL/min (>60); Est Glom Filt Rate - Afr Amer 24 mL/min (>60); Glucose 203 mg/dL (74-106); Phosphorus 4.5 mg/dL (2.5-4.9); Potassium 5.1 mmol/L (3.5-5.1); Sodium Level 139 mmol/L (136-145)
[2023-07-27] MEDS: APIXABAN 5 MG TABLET PO (10:47)
--- NOTE | 2023-07-27 11:00 | PCM.PROGNOTE ---
Subjective Subjective No changes overnight, pain controlled, no signs DVT Objective Data Objective Data Vital Signs: Vital Signs Temp Pulse Resp BP Pulse Ox O2 Del Method 97.8 F 73 18 104/51 L 97 Room Air 07/27/23 10:45 07/27/23 10:45 07/27/23 10:45 07/27/23 10:45 07/27/23 10:45 07/27/23 10:45 Oxygen Delivery Method Room Air Weight: 168.5 kg Body Mass Index (BMI) 53.3 Intake & Output: Intake and Output for Last 24 Hours 07/25/23 07/26/23 07/27/23 23:59 23:59 23:59 Intake Total 550 / 795 445 / 445 Output Total 800 / 950 300 / 300 Balance -250 / -155 145 / 145 Lab / Micro Data 07/26/23 05:40 07/27/23 07:49 Labs: Laboratory Results - last 24 hr 07/26/23 20:47: POC Glucose 209 H 07/27/23 05:45: Sodium Cancelled, Potassium Cancelled, Chloride Cancelled, Carbon Dioxide Cancelled, BUN Cancelled, Creatinine Cancelled, Estim Creat Clear Calc Cancelled, Est GFR (MDRD) Af Amer Cancelled, Est GFR (MDRD) Non-Af Cancelled, BUN/Creatinine Ratio Cancelled, Glucose Cancelled, Calcium Cancelled, Phosphorus Cancelled, Albumin Cancelled 07/27/23 06:03: POC Glucose 217 H 07/27/23 07:49: Sodium 139, Potassium 5.1, Chloride 108 H, Carbon Dioxide 25.0, BUN 71 H, Creatinine 3.38 H, Estim Creat Clear Calc 23.40, Est GFR (MDRD) Af Amer 24 L, Est GFR (MDRD) Non-Af 20 L, BUN/Creatinine Ratio 21.0 H, Glucose 203 H, Calcium 8.2 L, Phosphorus 4.5, Albumin 2.0 L Micro: Microbiology 07/25/23 14:28 Nasal Secretion SARS-CoV-2 & FLU Antigen (Rapid) - Final Radiography Diagnostic Testing: Radiology Impression Echocardiogram 07/25/23 18:12 Interpretation Summary Mild concentric left ventricular hypertrophy. The left ventricular ejection fraction is 65 %. Normal diastology for age. Mildly dilated aortic root. The study was technically difficult. Ordering Physician: Sadie Salazar Referring Physician: Lance Bose Chi Performed By: Deepa Frazier, WILEY, RVT Lower Extremity CT 07/26/23 11:20 IMPRESSION: Osteopenia with trimalleolar fracture and osteoarthrosis with diffuse soft tissue swelling. Electronically Signed: Raul Luna MD at 11:37 EST , Physical Exam Narrative Splint intact left lower extremity. Neurovascular status intact to lesser digits left lower extremity. No sign DVT Assessment & Plan Assessment/Plan (1) Trimalleolar fracture of left ankle: QUALIFIERS: Encounter type: initial encounter Fracture type: closed Qualified Code(s): S82.852A - Displaced trimalleolar fracture of left lower leg, initial encounter for closed fracture PLAN: Exam performed CT confirms small posterior malleoli are fracture making this a trimalleolar ankle fracture Will plan for ORIF on Saturday at 12:30 PM. Will consider syndesmotic versus posterior malleolus or fixation intraoperatively. If there is any issues with patient and bone mineral density will consider application of delta frame for external fixation as a secondary procedure Will continue to follow patient closely Patient nonweightbearing left lower extremity
[2023-07-27] MEDS: Bumetanide 1 MG/4 ML Vial IV ×2 (11:43→18:19)
[2023-07-27 12:14] LABS: Bedside Glucose 245 mg/dL (74-106)
[2023-07-27] MEDS: Hydrocortisone 10 MG Tablet PO (16:36)
[2023-07-27 16:55] LABS: Bedside Glucose 211 mg/dL (74-106)
[2023-07-27 22:25] LABS: Bedside Glucose 232 mg/dL (74-106)
[2023-07-27] MEDS: HYDROmorphone 1 MG/ML Syringe IV (22:48)
[2023-07-28] VITALS (9 sets, daily range): BP systolic 101–143; BP diastolic 49–95; PULSE 62–145; RESP 16; TEMP 36.2–36.4; O2SAT 95–99; BMI 54.1
[2023-07-28 06:05] LABS: BUN 72 mg/dL (7-18); BUN/Creat Ratio 23.2 RATIO (10-20); Calcium,Total 7.9 mg/dL (8.5-10.1); Chloride 107 mmol/L (98-107); Creatinine, Serum 3.11 mg/dL (0.70-1.30); EST Glomerular Filtration Rate 22 mL/min (>60); Est Glom Filt Rate - Afr Amer 26 mL/min (>60); Estimated Creatinine Clearance 25.43 ml/min; Glucose 191 mg/dL (74-106); Phosphorus 4.5 mg/dL (2.5-4.9); Potassium 5.3 mmol/L (3.5-5.1); Sodium Level 138 mmol/L (136-145)
[2023-07-28] MEDS: Lactulose 20 GM/30 ML UDC PO ×2 (06:09→21:23)
[2023-07-28] MEDS: Levothyroxine 25 MCG TABLET PO (06:10)
[2023-07-28] MEDS: Insulin Lispro 100 UNIT/ML INSULN.PEN SC ×4 (06:13→21:29)
[2023-07-28] MEDS: HYDROmorphone 1 MG/ML Syringe IV ×3 (06:26→15:22)
[2023-07-28] MEDS: 0.9% Saline Lock 10 ML Syringe IV ×4 (06:27→17:03)
[2023-07-28 06:37] LABS: Bedside Glucose 176 mg/dL (74-106)
[2023-07-28] MEDS: Metoprolol Tartrate 25 MG Tablet 12.5 MG PO ×2 (06:59→21:24)
--- NOTE | 2023-07-28 07:27 | PCM.PN.HOSP ---
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 Patient scheduled to undergo ORIF on 07/29/2022. Also seen in consultation by nephrology given his impaired kidney function Objective Data Objective Data Vital Signs: Vital Signs Temp Pulse Resp BP Pulse Ox O2 Del Method 97.6 F L 145 H 16 109/54 L 96 Room Air 07/28/23 03:39 07/28/23 06:59 07/28/23 03:39 07/28/23 03:39 07/28/23 03:39 07/28/23 03:40 Oxygen Delivery Method Room Air Weight: 171 kg Body Mass Index (BMI) 54.1 Intake & Output: Intake and Output for Last 24 Hours 07/26/23 07/27/23 07/28/23 23:59 23:59 23:59 Intake Total 550 / 795 1525 / 1525 360 / 360 Output Total 800 / 950 1225 / 1225 600 / 600 Balance -250 / -155 300 / 300 -240 / -240 Lab / Micro Data 07/26/23 05:40 07/28/23 04:57 Labs: Laboratory Results - last 24 hr 07/27/23 07:49: Sodium 139, Potassium 5.1, Chloride 108 H, Carbon Dioxide 25.0, BUN 71 H, Creatinine 3.38 H, Estim Creat Clear Calc 23.40, Est GFR (MDRD) Af Amer 24 L, Est GFR (MDRD) Non-Af 20 L, BUN/Creatinine Ratio 21.0 H, Glucose 203 H, Calcium 8.2 L, Phosphorus 4.5, Albumin 2.0 L 07/27/23 11:42: POC Glucose 245 H 07/27/23 16:32: POC Glucose 211 H 07/27/23 21:26: POC Glucose 232 H 07/28/23 04:57: Sodium 138, Potassium 5.3 H, Chloride 107, Carbon Dioxide 25.0, BUN 72 H, Creatinine 3.11 H, Estim Creat Clear Calc 25.43, Est GFR (MDRD) Af Amer 26 L, Est GFR (MDRD) Non-Af 22 L, BUN/Creatinine Ratio 23.2 H, Glucose 191 H, Calcium 7.9 L, Phosphorus 4.5, Albumin 2.0 L 07/28/23 06:12: POC Glucose 176 H Micro: Microbiology 07/25/23 14:28 Nasal Secretion SARS-CoV-2 & FLU Antigen (Rapid) - Final Physical Exam Narrative GENERAL: cooperative HEENT: Atraumatic; normocephalic EYES; Anicteric, Normal Conjunctiva NECK; supple, normal thyroid, RESPIRATORY: Diminished to auscultation CARDIOVASCULAR: Regular S1 S2, GI: soft, normoactive bowel sounds, : No Renal angle tenderness; EXTREMITIES: No edema, no clubbing, MUSCULOSKELETAL: Left ankle immobilized NEURO: Awake; no lateralizing signs. SKIN: No Rash PSYCH; Flat affect Assessment & Plan Assessment/Plan (1) Acute diastolic CHF (congestive heart failure): PLAN: Plan Patient is a 62-year-old gentleman who presented to the emergency department with progressive shortness of breath as well as weight gain and assessment of acute congestive heart failure made admitted to monitored bed for further management 1. Acute on chronic congestive heart failure with preserved ejection fraction ? Echo from 11/06/2022 demonstrated EF of 65%. Admitted to monitored bed managed with strict input and output, daily weights and low-sodium diet as well as diuretic therapy with furosemide ? 07/27/2023; patient switched from Lasix to be admitted Bumex 2. Recent fall with left bimalleolar fracture ? Pain control as needed with consultation placed to podiatry ? 07/28/2023;Patient seen complains of significant discomfort left foot. Patient scheduled to undergo ORIF on 07/29/2022 3. Physical deconditioning - Requested for PT OT eval and healthcare social worker to assist with discharge planning 4. Left ear cancer removal -Patient supposed to keep Vaseline on the area and keep it bandaged 5. CKD IV -Patient with variable baseline and seems to be on the upper end of recent range but still within range. Plan is to monitor with daily BMPs ? 07/27/2023; consult placed to nephrology given rise in his kidney function 6. Coronary artery disease ? With previous PCI in 2016 at [facility]. Patient remains on guideline directed medical therapy 7. GERD ? Patient is on famotidine 8. Adrenal insufficiency ? Patient is on hydrocortisone continue at home dose 9. Gout ? Patient is alert. 10. History of cirrhosis of the liver with liver transplant ? Patient is on tacrolimus, rifaximin, lactulose, continued 11. Paroxysmal A-fib ? Rate controlled with amiodarone as well as beta-blockers. Patient is systemic anticoagulation with apixaban continued 12. Hypothyroidism - Patient is on levothyroxine home dose continued 13. Depression ? Patient is on citalopram 14. Class III obesity with BMI of 53 ? Complicating care, Weight loss advised 15. DVT prophylaxis ? On apixaban Time spent in the patient's overall evaluation,decision-making process, review of diagnostic data, adjustment of management, discussion with other providers, nursing nursing and ancillary staff involved in patient's care documentation,35 Minutes Charges/Coding Visit Charges Inpatient E&M: 02596 Subs Hosp L2
[2023-07-28] MEDS: Glucerna Shake 120 ML LIQUID PO ×2 (08:08→12:10)
[2023-07-28] MEDS: Smz/Tmp Ds Tablet 0.5 TABLET PO (08:08)
[2023-07-28] MEDS: Amiodarone 200 MG Tablet PO (08:09)
[2023-07-28] MEDS: Allopurinol 300 MG Tablet PO (08:09)
[2023-07-28] MEDS: Famotidine 20 MG Tablet PO (08:09)
[2023-07-28] MEDS: Citalopram 10 MG Tablet PO (08:09)
[2023-07-28] MEDS: Hydrocortisone 10 MG Tablet 20 MG PO (08:09)
[2023-07-28] MEDS: Tacrolimus 0.5 MG Capsule PO ×2 (08:10→21:23)
[2023-07-28] MEDS: rifAXIMin 550 MG Tablet PO ×2 (08:10→21:26)
[2023-07-28] MEDS: Senna/Docusate Sodium 1 Tablet 2 TABLET PO (08:10)
[2023-07-28] MEDS: Ursodiol 250 MG Tablet PO ×2 (08:10→21:25)
[2023-07-28] MEDS: Bumetanide 1 MG/4 ML Vial IV ×2 (10:30→17:03)
--- NOTE | 2023-07-28 12:10 | PCM.PROGNOTE ---
Subjective Subjective No changes overnight pain controlled in splint. No chest pain calf pain shortness of breath. Objective Data Objective Data Vital Signs: Vital Signs Temp Pulse Resp BP Pulse Ox O2 Del Method 97.6 F L 69 16 105/59 L 99 Room Air 07/28/23 10:26 07/28/23 10:26 07/28/23 10:26 07/28/23 10:26 07/28/23 10:26 07/28/23 10:26 Oxygen Delivery Method Room Air Weight: 171 kg Body Mass Index (BMI) 54.1 Intake & Output: Intake and Output for Last 24 Hours 07/26/23 07/27/23 07/28/23 23:59 23:59 23:59 Intake Total 550 / 795 1525 / 1525 360 / 360 Output Total 800 / 950 1225 / 1225 600 / 600 Balance -250 / -155 300 / 300 -240 / -240 Lab / Micro Data 07/26/23 05:40 07/28/23 04:57 Labs: Laboratory Results - last 24 hr 07/27/23 11:42: POC Glucose 245 H 07/27/23 16:32: POC Glucose 211 H 07/27/23 21:26: POC Glucose 232 H 07/28/23 04:57: Sodium 138, Potassium 5.3 H, Chloride 107, Carbon Dioxide 25.0, BUN 72 H, Creatinine 3.11 H, Estim Creat Clear Calc 25.43, Est GFR (MDRD) Af Amer 26 L, Est GFR (MDRD) Non-Af 22 L, BUN/Creatinine Ratio 23.2 H, Glucose 191 H, Calcium 7.9 L, Phosphorus 4.5, Albumin 2.0 L 07/28/23 06:12: POC Glucose 176 H Micro: Microbiology 07/25/23 14:28 Nasal Secretion SARS-CoV-2 & FLU Antigen (Rapid) - Final Physical Exam Narrative Splint intact left lower extremity. Neurovascular status intact to lesser digits left lower extremity. No sign DVT Const alert and oriented x3 Assessment & Plan Assessment/Plan (1) Trimalleolar fracture of left ankle: QUALIFIERS: Encounter type: initial encounter Fracture type: closed Qualified Code(s): S82.852A - Displaced trimalleolar fracture of left lower leg, initial encounter for closed fracture PLAN: Exam performed CT confirms small posterior malleoli are fracture making this a trimalleolar ankle fracture Will plan for ORIF on Saturday at 12:30 PM. Will consider syndesmotic versus posterior malleolus or fixation intraoperatively. If there is any issues with patient and bone mineral density will consider application of delta frame for external fixation as a secondary procedure -this was discussed with patient in great detail as patient is high risk due to multiple coronary disease including but not limited to obesity, coronary artery disease, diffuse lower extremity weakness, low ambulatory status, history of liver transplant on chronic immunosuppressants. Patient will recover in SNF as he will need to require maintain complete nonweightbearing to left lower extremity Will continue to follow patient closely -surgery tomorrow n.p.o. at midnight
[2023-07-28 12:12] LABS: Bedside Glucose 200 mg/dL (74-106)
[2023-07-28] MEDS: Hydrocortisone 10 MG Tablet PO (16:25)
[2023-07-28 16:52] LABS: Bedside Glucose 173 mg/dL (74-106)
[2023-07-28 21:53] LABS: Bedside Glucose 228 mg/dL (74-106)
[2023-07-28 21:59] LABS: Urine Sodium 50 mmol/L (Not Establ.)
[2023-07-29] VITALS (7 sets, daily range): BP systolic 102–130; BP diastolic 45–78; PULSE 78–110; RESP 16–18; TEMP 36.2–36.6; O2SAT 93–98; BMI 54.3
[2023-07-29] MEDS: HYDROmorphone 1 MG/ML Syringe IV ×2 (04:20→22:34)
[2023-07-29] MEDS: 0.9% Saline Lock 10 ML Syringe IV ×4 (04:21→22:34)
[2023-07-29 05:34] LABS: Absolute Lymphocyte Count 1.11 X10^3/uL (0.83-4.51); Absolute Neutrophil Count 10.6 X10^3/uL (2.0-7.7); Basophil# 0.02 X10^3/uL; Basophil% 0.2 % (0-1); Hematocrit 39.3 % (40-54); Hemoglobin 12.2 g/dL (13.0-16.5); Lymphocyte # 1.11 X10^3/ul (0.83-4.51); Lymphocyte % 8.5 % (19-41); Mean Corpuscular Hgb 31.3 pg (27.0-32.0); Mean Corpuscular Volume 100.8 fL (80-94); Mean Platelet Vol. 10.9 fl (6.2-12.0); Monocyte# 1.07 X10^3/uL; Monocyte% 8.2 % (0-10); NRBC Flagged by Analyzer 0 % (0-5); Neutrophil # 10.57 X10^3/uL (2.7-7.7); Neutrophil % 81.2 % (47-70); POSITIVE MORPHOLOGY YES; Platelet Count 197 K/mm3 (150-450); RBC Distribution Width CV 17.6 % (11.6-14.6); RBC Distribution Width SD 65.5 fl (35.1-43.9)
[2023-07-29 05:42] LABS: Differential Indicated SCAN CRITERIA MET
[2023-07-29 05:46] LABS: International Normalized Ratio 1.2; Prothrombin Time (Protime)PT. 14.8 SECONDS (11.7-14.9)
[2023-07-29 05:47] LABS: Partial Thromboplast Time 27.4 Seconds (24.1-36.2)
--- NOTE | 2023-07-29 05:55 | EKG12_ITS ---
Test Reason : AM EKG Blood Pressure : / mmHG Vent. Rate : 127 BPM Atrial Rate : 000 BPM P-R Int : 000 ms QRS Dur : 096 ms QT Int : 322 ms P-R-T Axes : 000 -69 041 degrees QTc Int : 467 ms Atrial fibrillation with rapid ventricular response Low voltage QRS Left anterior fascicular block Possible Anterolateral infarct , age undetermined Abnormal ECG When compared with ECG of 25-JUL-2023 13:51, MANUAL COMPARISON REQUIRED, DATA IS UNCONFIRMED Confirmed by SAHIL SHIPMAN, ROULA ([id number]), industrial editor JULIO CÉSAR SOLORIO ([id number]) on 07/30/2023 7:13:18 AM Referred By: Confirmed By:ROULA BAXTER MD
[2023-07-29 06:00] LABS: Anion Gap 6 (5-15); BUN 78 mg/dL (7-18); Calcium,Total 8.5 mg/dL (8.5-10.1); Chloride 106 mmol/L (98-107); Creatinine, Serum 3.12 mg/dL (0.70-1.30); EST Glomerular Filtration Rate 22 mL/min (>60); Est Glom Filt Rate - Afr Amer 26 mL/min (>60); Estimated Creatinine Clearance 25.35 ml/min; Glucose 165 mg/dL (74-106); Phosphorus 4.4 mg/dL (2.5-4.9); Potassium 5.9 mmol/L (3.5-5.1); Sodium Level 138 mmol/L (136-145)
[2023-07-29 06:27] LABS: Anisocytosis 2+; Hypochromasia 2+
[2023-07-29] MEDS: Metoprolol Tartrate 25 MG Tablet 12.5 MG PO ×2 (06:49→20:45)
[2023-07-29] MEDS: Amiodarone 200 MG Tablet PO (06:49)
[2023-07-29 07:21] LABS: Bedside Glucose 166 mg/dL (74-106)
[2023-07-29] MEDS: oxyCODONE 5 MG Tablet 10 MG PO ×3 (07:47→20:49)
[2023-07-29] MEDS: Sodium Polystyrene Sulfonate 15 GM/60 ML UDC 30 GM PO ×2 (08:20→12:43)
[2023-07-29 08:36] LABS: Hemoglobin A1c 6.6 % (3.8-5.6)
--- NOTE | 2023-07-29 10:40 | PCM.PN.REN ---
Subjective Subjective potassium 5.9 today. Denies CP, SOB. Not on oxygen. Weakness persists. Pt with good UOP on bumex iv. Episode of afib with rvr yesterday. Pt at bedside. Objective Data Objective Data Vital Signs: Vital Signs Temp Pulse Resp BP Pulse Ox O2 Del Method 97.9 F 110 H 16 106/70 96 Room Air 07/29/23 08:25 07/29/23 08:25 07/29/23 08:25 07/29/23 08:25 07/29/23 08:25 07/29/23 08:25 Oxygen Delivery Method Room Air Weight: 171.8 kg Body Mass Index (BMI) 54.3 Intake & Output: Intake and Output for Last 24 Hours 07/27/23 07/28/23 07/29/23 23:59 23:59 23:59 Intake Total 1525 / 1525 780 / 780 30 / 30 Output Total 1225 / 1225 1400 / 1400 300 / 300 Balance 300 / 300 -620 / -620 -270 / -270 Lab / Micro Data 07/29/23 04:56 07/29/23 04:56 Labs: Laboratory Results - last 24 hr 07/28/23 11:47: POC Glucose 200 H 07/28/23 16:22: POC Glucose 173 H 07/28/23 19:03: Ur Random Sodium 50, Urine Creatinine 35.60 07/28/23 21:29: POC Glucose 228 H 07/29/23 04:56: WBC 13.0 H, RBC 3.90 L, Hgb 12.2 L, Hct 39.3 L, MCV 100.8 H, MCH 31.3, MCHC 31.0 L, RDW Std Deviation 65.5 H, RDW Coeff of Maciel 17.6 H, Plt Count 197, MPV 10.9, Immature Gran % (Auto) 1.900 H, Neut % (Auto) 81.2 H, Lymph % (Auto) 8.5 L, [place] % (Auto) 8.2, Eos % (Auto) 0.0, Baso % (Auto) 0.2, Absolute Neuts (auto) 10.6 H, Absolute Lymphs (auto) 1.11, Nucleated RBC % 0, Hypochromasia 2+, Anisocytosis 2+, PT 14.8, INR 1.2, APTT 27.4, Sodium 138, Potassium 5.9 H, Chloride 106, Carbon Dioxide 26.0, Anion Gap 6, BUN 78 H, Creatinine 3.12 H, Estim Creat Clear Calc 25.35, Est GFR (MDRD) Af Amer 26 L, Est GFR (MDRD) Non-Af 22 L, BUN/Creatinine Ratio 25.0 H, Glucose 165 H, Hemoglobin A1c 6.6 H, Calcium 8.5, Phosphorus 4.4, Albumin 2.0 L 07/29/23 06:53: POC Glucose 166 H Micro: Microbiology 07/25/23 14:28 Nasal Secretion SARS-CoV-2 & FLU Antigen (Rapid) - Final Physical Exam Const alert and oriented x3 Resp Effort and Inspection: Negative for respiratory distress Auscultation: rhonchi Cardio Rhythm: abnormal rhythm irregularly irregular GI non-tender and non-distended Auscultation: normoactive bowel sounds Palpation: soft Extremity General Extremity: edema bilateral (mild) lower extremity Assessment & Plan Assessment/Plan (1) Acute on chronic kidney failure: PLAN: Creatinine 3.1 from 3.3. Off Entresto (2) CKD (chronic kidney disease), stage IV: PLAN: baseline creatinien 2.3 to 2.5 (3) Hyperkalemia: PLAN: kayexalate po x1 for k 5.9 (4) Acute diastolic CHF (congestive heart failure): PLAN: continue to monitor renal fxn while on iv bumex (5) Liver transplant recipient: PLAN: on tacrolimus. Check for HRS (6) Bimalleolar avulsion fracture of left ankle: (7) Hypertension: QUALIFIERS: Hypertension type: primary hypertension Qualified Code(s): I10 - Essential (primary) hypertension PLAN: stable BP (8) Atrial fibrillation: QUALIFIERS: Atrial fibrillation type: unspecified chronic Qualified Code(s): I48.20 - Chronic atrial fibrillation, unspecified PLAN: afib with RVR yesterday, rate better today
[2023-07-29] MEDS: Ursodiol 250 MG Tablet PO ×2 (10:41→20:43)
[2023-07-29] MEDS: Tacrolimus 0.5 MG Capsule PO ×2 (10:41→20:42)
[2023-07-29] MEDS: Hydrocortisone 10 MG Tablet 20 MG PO (10:41)
--- NOTE | 2023-07-29 10:52 | CASEMGMT ---
TCU is unable to take patient. SW will talk with patient to obtain other choices. Kaley Riddle MSW ZAHRA
[2023-07-29 10:53] LABS: Anion Gap 4 (5-15); BUN 77 mg/dL (7-18); BUN/Creat Ratio 25.5 RATIO (10-20); Calcium,Total 8.4 mg/dL (8.5-10.1); Chloride 108 mmol/L (98-107); Creatinine, Serum 3.02 mg/dL (0.70-1.30); EST Glomerular Filtration Rate 22 mL/min (>60); Est Glom Filt Rate - Afr Amer 27 mL/min (>60); Estimated Creatinine Clearance 26.19 ml/min; Glucose 186 mg/dL (74-106); Potassium 5.9 mmol/L (3.5-5.1); Sodium Level 137 mmol/L (136-145)
[2023-07-29 12:03] LABS: Bedside Glucose 143 mg/dL (74-106)
--- NOTE | 2023-07-29 13:09 | CASEMGMT ---
Addendum entered by Kaley Riddle 07/29/23 14:11: [facility]'s weight limit is 425 lbs but they are full, [facility]'s weight limit is 450 lbs, and [facility]'s weight limit is 600 lbs. SW re-printed the list from [facility] and took this information to patient and his family. They were interested in [facility] but not [facility] or [facility]. Patient asked SW how much time would TCU give him. SW told patient SW could ask. SW did ask Prema via Backline and will get back to SW. Kaley SWEENEY Original Note: SW spoke with patient and his Sheba. SW introduced self and role at [facility]. SW explained TCU is unable to take patient. Sheba said,I already said he won't go anywhere, but TCU. No one is listening to me. Sheba said the only facility in the area that will take patient because of [facility] weight is [facility]. hSeba said he will never go back there again. SW listened and provided support. Patient then asked if there are other options. SW told patient SW will look at the list and check with facilities. SW did check and [facility], [facility], and [facility] all take bariatric patients and patient's insurance. TONY asked [facility]/[employer] production planning manager to find out their weight limits. Kaley SWEENEY
--- NOTE | 2023-07-29 13:59 | PN_ITS ---
Subjective Subjective Patient seen and examined. He had no active complaints and had an uneventful night. Review of systems is otherwise negative. His potassium is elevated is 5.9. He was given kayexalate. He is due for surgery today. Objective Data Objective Data Vital Signs: Vital Signs Temp Pulse Resp BP Pulse Ox O2 Del Method 97.9 F 110 H 16 106/70 96 Room Air 07/29/23 08:25 07/29/23 08:25 07/29/23 08:25 07/29/23 08:25 07/29/23 08:25 07/29/23 10:00 Oxygen Delivery Method Room Air Weight: 378 lb 12.066 oz Body Mass Index (BMI) 54.3 Intake & Output: Intake and Output for Last 24 Hours 07/27/23 07/28/23 07/29/23 23:59 23:59 23:59 Intake Total 1525 / 1525 780 / 780 280 / 280 Output Total 1225 / 1225 1400 / 1400 300 / 300 Balance 300 / 300 -620 / -620 -20 / -20 Lab / Micro Data 07/29/23 04:56 07/29/23 10:28 Labs: Laboratory Results - last 24 hr 07/28/23 16:22: POC Glucose 173 H 07/28/23 19:03: Ur Random Sodium 50, Urine Creatinine 35.60 07/28/23 21:29: POC Glucose 228 H 07/29/23 04:56: WBC 13.0 H, RBC 3.90 L, Hgb 12.2 L, Hct 39.3 L, MCV 100.8 H, MCH 31.3, MCHC 31.0 L, RDW Std Deviation 65.5 H, RDW Coeff of Maciel 17.6 H, Plt Count 197, MPV 10.9, Immature Gran % (Auto) 1.900 H, Neut % (Auto) 81.2 H, Lymph % (Auto) 8.5 L, [place] % (Auto) 8.2, Eos % (Auto) 0.0, Baso % (Auto) 0.2, Absolute Neuts (auto) 10.6 H, Absolute Lymphs (auto) 1.11, Nucleated RBC % 0, Hypoch romasia 2+, Anisocytosis 2+, PT 14.8, INR 1.2, APTT 27.4, Sodium 138, Potassium 5.9 H, Chloride 106, Carbon Dioxide 26.0, Anion Gap 6, BUN 78 H, Creatinine 3.12 H, Estim Creat Clear Calc 25.35, Est GFR (MDRD) Af Amer 26 L, Est GFR (MDRD) Non-Af 22 L, BUN/Creatinine Ratio 25.0 H, Glucose 165 H, Hemoglobin A1c 6.6 H, Calcium 8.5, Phosphorus 4.4, Albumin 2.0 L 07/29/23 06:53: POC Glucose 166 H 07/29/23 10:28: Sodium 137, Potassium 5.9 H, Chloride 108 H, Carbon Dioxide 25.0, Anion Gap 4 L, BUN 77 H, Creatinine 3.02 H, Estim Creat Clear Calc 26.19, Est GFR (MDRD) Af Amer 27 L, Est GFR (MDRD) Non-Af 22 L, BUN/Creatinine Ratio 25.5 H, Glucose 186 H, Calcium 8.4 L 07/29/23 11:41: POC Glucose 143 H Micro: Microbiology 07/25/23 14:28 Nasal Secretion SARS-CoV-2 & FLU Antigen (Rapid) - Final Physical Exam Const alert, oriented x3 and no apparent distress Constitutional Narrative: super morbid obesity General Appearance: cooperative and well developed HEENT normocephalic, head/scalp atraumatic, moist oral mucous membranes and oropharynx normal Neck no lymphadenopathy and supple Lymph Lymphatic: no lymphadenopathy noted and no lymphedema noted Resp normal respiratory effort, normal air movement and clear to auscultation bilaterally Cardio regular rate, regular rhythm, S1 normal heart sound, S2 normal heart sound and no murmurs GI normal to inspection, nondistended, normoactive bowel sounds, soft to palpation and non-tender Extremity Extremity Narrative: LLE wrapped in bandage. Skin General Skin Exam: no breakdown Neuro CN's II-XII intact bilaterally, no focal motor deficits, no sensory deficits noted and deep tendon reflexes 2+ bilaterally Motor Exam: strength 5/5 throughout Psych thought process normal and cooperative Appearance: appropriate Assessment & Plan Assessment/Plan (1) Trimalleolar fracture of left ankle: QUALIFIERS: Encounter type: initial encounter Fracture type: closed Qualified Code(s): S82.852A - Displaced trimalleolar fracture of left lower leg, initial encounter for closed fracture (2) Acute on chronic kidney failure: PLAN: Plan # Acute on chronic congestive HFpEF * has known EF of 65%. * on bumex * monitor intake and output. * Fluid restriction to 1500cc daily. * #Left ankle pain due to bimalleolar fracture * podiatry on board * for ORIF today. However, due to hyperkalemia, surgery held. * #Hyperkalemia: * potassium is 5.9. Given kayexalate. * Repeat potassium is 5.9. * Will give kayexalate time to work and monitor potassium. #CKD IV; nephrology on board. management as per nephrology. #History of cirrhosis s/p liver transplant * on tacrolimus * on rifaximin on bactrim and lactulose * #Paroxysmal afib: on amiodarone and metoprolol. On eliquis. #Hypothyroidism: on levothyroxine. #Depression; on citalopram #Super morbid obesity: BMI is 54. Complicates acute care, expected recovery and prognosis. #History of adrenal insufficiency: on hydrocortisone #Left ear cancer: s/p resection. To keep vaseline on area and keep it bandaged. DVT prophylaxis; on eliquis. Charges/Coding Visit Charges Inpatient E&M: 10561 Subs Hosp L2
[2023-07-29] MEDS: Bisacodyl 5 MG Tablet 10 MG PO (14:21)
--- NOTE | 2023-07-29 14:54 | PCM.PROGNOTE ---
Subjective Subjective Potassium 5.9 overnight. Patient felt some weakness overnight. Pain controlled to fracture site. No other complaints Objective Data Objective Data Vital Signs: Vital Signs Temp Pulse Resp BP Pulse Ox O2 Del Method 97.9 F 110 H 16 106/70 96 Room Air 07/29/23 08:25 07/29/23 08:25 07/29/23 08:25 07/29/23 08:25 07/29/23 08:25 07/29/23 10:00 Oxygen Delivery Method Room Air Weight: 171.8 kg Body Mass Index (BMI) 54.3 Intake & Output: Intake and Output for Last 24 Hours 07/27/23 07/28/23 07/29/23 23:59 23:59 23:59 Intake Total 1525 / 1525 780 / 780 280 / 280 Output Total 1225 / 1225 1400 / 1400 300 / 300 Balance 300 / 300 -620 / -620 -20 / -20 Lab / Micro Data 07/29/23 04:56 07/29/23 10:28 Labs: Laboratory Results - last 24 hr 07/28/23 16:22: POC Glucose 173 H 07/28/23 19:03: Ur Random Sodium 50, Urine Creatinine 35.60 07/28/23 21:29: POC Glucose 228 H 07/29/23 04:56: WBC 13.0 H, RBC 3.90 L, Hgb 12.2 L, Hct 39.3 L, MCV 100.8 H, MCH 31.3, MCHC 31.0 L, RDW Std Deviation 65.5 H, RDW Coeff of Maciel 17.6 H, Plt Count 197, MPV 10.9, Immature Gran % (Auto) 1.900 H, Neut % (Auto) 81.2 H, Lymph % (Auto) 8.5 L, [place] % (Auto) 8.2, Eos % (Auto) 0.0, Baso % (Auto) 0.2, Absolute Neuts (auto) 10.6 H, Absolute Lymphs (auto) 1.11, Nucleated RBC % 0, Hypochromasia 2+, Anisocytosis 2+, PT 14.8, INR 1.2, APTT 27.4, Sodium 138, Potassium 5.9 H, Chloride 106, Carbon Dioxide 26.0, Anion Gap 6, BUN 78 H, Creatinine 3.12 H, Estim Creat Clear Calc 25.35, Est GFR (MDRD) Af Amer 26 L, Est GFR (MDRD) Non-Af 22 L, BUN/Creatinine Ratio 25.0 H, Glucose 165 H, Hemoglobin A1c 6.6 H, Calcium 8.5, Phosphorus 4.4, Albumin 2.0 L 07/29/23 06:53: POC Glucose 166 H 07/29/23 10:28: Sodium 137, Potassium 5.9 H, Chloride 108 H, Carbon Dioxide 25.0, Anion Gap 4 L, BUN 77 H, Creatinine 3.02 H, Estim Creat Clear Calc 26.19, Est GFR (MDRD) Af Amer 27 L, Est GFR (MDRD) Non-Af 22 L, BUN/Creatinine Ratio 25.5 H, Glucose 186 H, Calcium 8.4 L 07/29/23 11:41: POC Glucose 143 H Micro: Microbiology 07/25/23 14:28 Nasal Secretion SARS-CoV-2 & FLU Antigen (Rapid) - Final Physical Exam Narrative Splint intact left lower extremity. Neurovascular status intact to lesser digits left lower extremity. No sign DVT Const alert and oriented x3 Assessment & Plan Assessment/Plan (1) Trimalleolar fracture of left ankle: QUALIFIERS: Encounter type: initial encounter Fracture type: closed Qualified Code(s): S82.852A - Displaced trimalleolar fracture of left lower leg, initial encounter for closed fracture PLAN: Exam performed CT confirms small posterior malleoli are fracture making this a trimalleolar ankle fracture ORIF canceled for today due to potassium 5.9 Will reschedule tomorrow or the next day pending medical stabilization Patient and AO splint no issues at current pain is controlled
[2023-07-29] MEDS: Insulin Lispro 100 UNIT/ML INSULN.PEN SC ×2 (16:19→20:41)
[2023-07-29] MEDS: Hydrocortisone 10 MG Tablet PO (16:20)
[2023-07-29 16:47] LABS: Bedside Glucose 226 mg/dL (74-106)
[2023-07-29] MEDS: Bumetanide 1 MG/4 ML Vial IV (18:26)
[2023-07-29] MEDS: Lactulose 20 GM/30 ML UDC PO (20:43)
[2023-07-29] MEDS: rifAXIMin 550 MG Tablet PO (20:43)
[2023-07-29 21:03] LABS: Bedside Glucose 189 mg/dL (74-106)
[2023-07-30] VITALS (14 sets, daily range): BP systolic 94–130; BP diastolic 49–106; PULSE 68–139; RESP 14–20; TEMP 36.3–36.6; O2SAT 97–100; BMI 54.3
[2023-07-30] MEDS: oxyCODONE 5 MG Tablet 10 MG PO ×3 (02:28→21:48)
[2023-07-30 03:26] LABS: Absolute Lymphocyte Count 0.97 X10^3/uL (0.83-4.51); Absolute Neutrophil Count 11.3 X10^3/uL (2.0-7.7); Basophil# 0.02 X10^3/uL; Basophil% 0.1 % (0-1); Hematocrit 36.6 % (40-54); Hemoglobin 11.3 g/dL (13.0-16.5); Lymphocyte # 0.97 X10^3/ul (0.83-4.51); Lymphocyte % 7.1 % (19-41); Mean Corp Hgb Conc 30.9 g/dL (32-36); Mean Corpuscular Hgb 30.9 pg (27.0-32.0); Mean Platelet Vol. 10.7 fl (6.2-12.0); Monocyte# 1.18 X10^3/uL; Monocyte% 8.7 % (0-10); NRBC Flagged by Analyzer 0 % (0-5); Neutrophil # 11.26 X10^3/uL (2.7-7.7); Neutrophil % 82.7 % (47-70); POSITIVE MORPHOLOGY YES; Platelet Count 197 K/mm3 (150-450); RBC Distribution Width CV 17.5 % (11.6-14.6); RBC Distribution Width SD 65.1 fl (35.1-43.9); Red Blood Count 3.66 M/mm3 (4.6-6.2); White Blood Count 13.6 K/mm3 (4.4-11.0)
[2023-07-30 03:39] LABS: Differential Indicated SCAN CRITERIA MET
[2023-07-30 03:41] LABS: Anion Gap 6 (5-15); BUN 74 mg/dL (7-18); BUN/Creat Ratio 26.3 RATIO (10-20); Calcium,Total 7.9 mg/dL (8.5-10.1); Chloride 106 mmol/L (98-107); Creatinine, Serum 2.81 mg/dL (0.70-1.30); EST Glomerular Filtration Rate 24 mL/min (>60); Est Glom Filt Rate - Afr Amer 30 mL/min (>60); Estimated Creatinine Clearance 28.14 ml/min; Glucose 169 mg/dL (74-106); Sodium Level 140 mmol/L (136-145)
[2023-07-30 03:49] LABS: Anisocytosis 2+
[2023-07-30] MEDS: HYDROmorphone 1 MG/ML Syringe IV ×4 (03:59→21:49)
[2023-07-30] MEDS: Levothyroxine 25 MCG TABLET PO (05:42)
[2023-07-30] MEDS: Insulin Lispro 100 UNIT/ML INSULN.PEN SC ×2 (06:33→21:57)
[2023-07-30 07:05] LABS: Bedside Glucose 213 mg/dL (74-106)
[2023-07-30] MEDS: 0.9% Saline Lock 10 ML Syringe IV ×3 (07:59→18:46)
[2023-07-30] MEDS: Smz/Tmp Ds Tablet 0.5 TABLET PO (08:03)
[2023-07-30] MEDS: Amiodarone 200 MG Tablet PO (08:04)
[2023-07-30] MEDS: Allopurinol 300 MG Tablet PO (08:05)
[2023-07-30] MEDS: Hydrocortisone 10 MG Tablet 20 MG PO (08:05)
--- NOTE | 2023-07-30 09:53 | PCM.PROGNOTE ---
Subjective Subjective Patient seen and examined. He had no active complaints and had an uneventful night. REview of systems is otherwise negative. Potassium is down to today. He has otherwise remained hemodynamically stable. Objective Data Objective Data Vital Signs: Vital Signs Temp Pulse Resp BP Pulse Ox O2 Del Method 97.5 F L 78 16 122/59 H 98 Room Air 07/30/23 09:09 07/30/23 09:09 07/30/23 09:09 07/30/23 09:09 07/30/23 09:09 07/30/23 09:43 Oxygen Delivery Method Room Air Weight: 378 lb 8.539 oz Body Mass Index (BMI) 54.3 Intake & Output: Intake and Output for Last 24 Hours 07/28/23 07/29/23 07/30/23 23:59 23:59 23:59 Intake Total 780 / 780 780 / 780 1200 / 1200 Output Total 1400 / 1400 300 / 1200 1600 / 1600 Balance -620 / -620 480 / -420 -400 / -400 Lab / Micro Data 07/30/23 03:13 07/30/23 03:13 Labs: Laboratory Results - last 24 hr 07/29/23 10:28: Sodium 137, Potassium 5.9 H, Chloride 108 H, Carbon Dioxide 25.0, Anion Gap 4 L, BUN 77 H, Creatinine 3.02 H, Estim Creat Clear Calc 26.19, Est GFR (MDRD) Af Amer 27 L, Est GFR (MDRD) Non-Af 22 L, BUN/Creatinine Ratio 25.5 H, Glucose 186 H, Calcium 8.4 L 07/29/23 11:41: POC Glucose 143 H 07/29/23 16:14: POC Glucose 226 H 07/29/23 20:40: POC Glucose 189 H 07/30/23 03:13: WBC 13.6 H, RBC 3.66 L, Hgb 11.3 L, Hct 36.6 L, MCV 100.0 H, MCH 30.9, MCHC 30.9 L, RDW Std Deviation 65.1 H, RDW Coeff of Maciel 17.5 H, Plt Count 197, MPV 10.7, Immature Gran % (Auto) 1.400 H, Neut % (Auto) 82.7 H, Lymph % (Auto) 7.1 L, [place] % (Auto) 8.7, Eos % (Auto) 0.0, Baso % (Auto) 0.1, Absolute Neuts (auto) 11.3 H, Absolute Lymphs (auto) 0.97, Nucleated RBC % 0, Anisocytosis 2+, Sodium 140, Potassium 5.0, Chloride 106, Carbon Dioxide 28.0, Anion Gap 6, BUN 74 H, Creatinine 2.81 H, Estim Creat Clear Calc 28.14, Est GFR (MDRD) Af Amer 30 L, Est GFR (MDRD) Non-Af 24 L, BUN/Creatinine Ratio 26.3 H, Glucose 169 H, Calcium 7.9 L 07/30/23 06:31: POC Glucose 213 H Micro: Microbiology 07/25/23 14:28 Nasal Secretion SARS-CoV-2 & FLU Antigen (Rapid) - Final Physical Exam Const alert, oriented x3 and no apparent distress Constitutional Narrative: super morbid obesity General Appearance: cooperative and well developed HEENT normocephalic, head/scalp atraumatic, moist oral mucous membranes and oropharynx normal Eyes PERRL and EOMs intact bilaterally Neck no lymphadenopathy and supple Lymph Lymphatic: no lymphadenopathy noted and no lymphedema noted Resp normal respiratory effort, normal air movement and clear to auscultation bilaterally Cardio regular rate, regular rhythm, S1 normal heart sound, S2 normal heart sound and no murmurs GI normal to inspection, nondistended, normoactive bowel sounds, soft to palpation and non-tender Extremity Extremity Narrative: LLE wrapped in bandage. Skin General Skin Exam: no breakdown Neuro CN's II-XII intact bilaterally, no focal motor deficits, no sensory deficits noted and deep tendon reflexes 2+ bilaterally Motor Exam: strength 5/5 throughout Psych thought process normal and cooperative Appearance: appropriate Assessment & Plan Assessment/Plan (1) Trimalleolar fracture of left ankle: QUALIFIERS: Encounter type: initial encounter Fracture type: closed Qualified Code(s): S82.852A - Displaced trimalleolar fracture of left lower leg, initial encounter for closed fracture (2) Acute on chronic kidney failure: PLAN: Plan # Acute on chronic congestive HFpEF has known EF of 65%. on bumex monitor intake and output. Fluid restriction to 1500cc daily. #Left ankle pain due to bimalleolar fracture podiatry on board for ORIF today. However, due to hyperkalemia, surgery held yestserday. Can go for surgery today. #Hyperkalemia: improved. Received kayexalate. K is 5 today, down from 5.9 nephrology on board #CKD IV; nephrology on board. management as per nephrology. #History of cirrhosis s/p liver transplant on tacrolimus on rifaximin on bactrim and lactulose #Paroxysmal afib: on amiodarone and metoprolol. On eliquis. #Hypothyroidism: on levothyroxine. #Depression; on citalopram #Super morbid obesity: BMI is 54. Complicates acute care, expected recovery and prognosis. #History of adrenal insufficiency: on hydrocortisone #Left ear cancer: s/p resection. To keep vaseline on area and keep it bandaged. DVT prophylaxis; on eliquis. Charges/Coding Visit Charges Inpatient E&M: 88751 Subs Hosp L2
[2023-07-30] MEDS: proCHLORPERazine 10 MG/2 ML Vial 5 MG IM ×2 (10:07→18:46)
[2023-07-30] MEDS: Bumetanide 1 MG/4 ML Vial IV ×2 (10:08→17:56)
[2023-07-30] MEDS: Famotidine 20 MG Tablet PO (10:09)
[2023-07-30] MEDS: Tacrolimus 0.5 MG Capsule PO ×2 (10:09→21:33)
[2023-07-30] MEDS: Citalopram 10 MG Tablet PO (10:09)
[2023-07-30] MEDS: Ursodiol 250 MG Tablet PO ×2 (10:09→21:33)
[2023-07-30] MEDS: Metoprolol Tartrate 25 MG Tablet 12.5 MG PO ×2 (10:09→21:31)
[2023-07-30] MEDS: rifAXIMin 550 MG Tablet PO ×2 (10:10→21:33)
--- NOTE | 2023-07-30 10:50 | CASEMGMT ---
TCU will take patient. SW notified patient and his . They thanked SW for updating them. Plan: d/c to TCU when medically ready and when insurance approves. Kaley SWEENEY
[2023-07-30 11:27] LABS: Bedside Glucose 173 mg/dL (74-106)
--- NOTE | 2023-07-30 12:20 | NURSING ---
Patient off the floor to pre-op.
[2023-07-30] MEDS: Lactated Ringers 1,000 ML 15 ML IV (12:29)
--- NOTE | 2023-07-30 13:15 | RAD_ITS ---
INDICATION: ORIF ANKLE BIMALLEOLAR FX EXAMINATION/TECHNIQUE: X-RAY - LEFT XR Ankle 15VIEWS COMPARISON: July 25, 2023 FINDINGS: Intraoperative imaging demonstrate ORIF for the malleoli. Bony fragments demonstrate improved alignment and approximation. RAD/Ankle min 3 Views IMPRESSION: Status post ORIF of the malleoli. Electronically Signed: Russ Varma DO at 15:57 EST ,
[2023-07-30] MEDS: Cefazolin 3 GM in 0.9% Normal Saline (100mL Bag) 100 ML IV (13:16)
[2023-07-30] MEDS: Bupivacaine Mpf 0.5% 30 ML VIAL (15:33)
--- NOTE | 2023-07-30 15:51 | PCM.OPRPT ---
Problems Associated Problem List Diagnoses (1) Trimalleolar fracture of left ankle: Report of Operation Date of Procedure: 07/30/23 Pre-Operative Diagnosis: Left Trimalleolar Ankle Fracture Post-Operative Diagnosis: same Surgery/Procedure Performed:: Open reduction internal fixation left trimalleolar ankle fracture Application of AO splint left lower extremity Description of Surgical Findings:: Patient has relatively low ambulatory status secondary to obesity and diffuse medical muscle weakness and left lower extremity pain. Patient predominately ambulates within his house into his car. Patient was attempting to ambulate within his home collapsed due to left thigh pain suffered inversion injury to left ankle presented to hospital with continued pain and swelling to left ankle confirmed trimalleolar left ankle fracture upon CT examination. Decision was made for ORIF to allow for patient to return to early ambulation to improve patient outcome and functional status. Surgeon: Larry Zamorano supervisor feed mill: None (zoraida peterson) Type of Anesthesia: General Special Medications: 30cc 0.5% marcaine Specimen's removed: none Drains: none Estimated Blood Loss (mL): minimal Description of Procedure: Patient brought back to the operating placed comfortably in the supine position on the operating room table. Patient induced under general anesthesia. All osseous prominences offloaded prevent any compression neuropraxia's. Well-padded padded thigh tourniquet applied to left lower extremity. Left lower extremity was scrubbed prepped draped using typical aseptic fashion. Procedure #1 open reduction internal fixation left trimalleolar ankle fracture: Left lower extremity was elevated exsanguinated tourniquet inflated to 300 mmHg. Total tourniquet time was noted to be less than 90 minutes. Using fluoroscopic imaging the fibula medial malleolus medial malleolus fracture lateral malleolus fracture syndesmosis as well as ankle joint were all marked. A direct lateral incision was made over the fibula down to the level of the fibula. Deep dissection was taken down to level of deep fascia using blunt technique. Any bleeders identified cauterized. Neurovascular structures identified and protected with blunt retraction. Periosteal/deep fascia incision was made exposing the distal fibular fracture and exposed off of the distal fibula fracture line was noticed and curetted and mobilized of any hematoma and flushed. Bone reduction forceps were then used to clamp the fibula in a reduced position reduction was confirmed using fluoroscopic imaging maintaining fibular length with the rotating the fibula and establishing a lateral buttress of the ankle joint. Next a 2.7 solid [place] fully threaded screw was applied using AO technique from distal posterior to proximal anterior across the fracture line. Bone reduction forceps were then removed and a lateral anatomic plate from [place] was applied and placed using manufactures guidelines with combination of 3 5 locking and nonlocking screws. Again fluoroscopic imaging was used throughout the case to confirm adequate reduction of the distal fibular fracture. At this time there is noted to be syndesmotic instability after dorsiflexion external rotation stressing of the distal tibiofibular syndesmosis. 2x4.0mm fully threaded syndesmotic screws were thrown quad cortical proximal to the fracture line through the lateral fibular plate. This was performed after the syndesmosis was reduced and gently using [id number] bone reduction forceps. Attention was then taken to the medial malleolus where the foot was held in a dorsiflexed and inverted position with the medial malleolus and reduced position. 2 percutaneous 4 oh partially-threaded screws cannulated from [place] set were placed in a parallel trajectory across the medial malleolar fracture with the foot held in reduction reduced position. K wires were then removed and final fluoroscopic images were taken. There is no to be intact ankle joint mortise with reduced medial malleolus or lateral malleolus and distal tibiofibular syndesmosis noted. This confirmed on multiple fluoroscopic views. Tourniquet was then left let down any bleeders identified cauterized at this time. Medial and lateral incisions were flushed with copious amounts of normal sterile saline. Deep periosteal and deep fascial closure was performed with running interlocking 2-0 Vicryl. A 2 x 4 cm BioSkin graft was applied subperiosteal to the fracture site to allow for improved wound healing and decrease car tissue formation. Subcutaneous closure was performed with buried interrupted 2-0 Vicryl. Skin closure was performed with you the lateral incision as well as the medial incisions. Foot was cleansed and dressed with Betadine Adaptic 4 x 4's Kerlix and a well-padded short leg AO splint to left lower extremity. Patient was transported to PACU with vital signs stable and vascular status intact all digits for further monitoring prior to transfer back to floor. Patient tolerated procedure and anesthesia well appears satisfactory condition. Patient will transfer to SNF upon discharge and recover in stable nebula to maintain nonweightbearing status on his own due to obesity and poor muscular tone. No complications Adequate reduction of trimalleolar left ankle fracture noted post-ORIF Grafts/Implants Used: [employer] BioSkin 2 x 4 cm Admit VTE Documentation VTE Present on Admission: Yes VTE Pharm Prophylaxis ordered?: Yes
[2023-07-30] MEDS: Hydrocortisone 10 MG Tablet PO (17:57)
--- NOTE | 2023-07-30 18:00 | NURSING ---
Pt arrived from PACU in stable condition. Left foot wrapped in gauze/shea wrap. medicated for pain and changed bed linens, primofit attached.
[2023-07-30] MEDS: Lactulose 20 GM/30 ML UDC PO (18:10)
[2023-07-30] MEDS: APIXABAN 5 MG TABLET PO (21:49)
[2023-07-30 22:17] LABS: Bedside Glucose 314 mg/dL (74-106)
[2023-07-31] VITALS (11 sets, daily range): BP systolic 98–130; BP diastolic 55–68; PULSE 72–143; RESP 16–20; TEMP 36.6–36.8; O2SAT 94–98; BMI 54.3
[2023-07-31] MEDS: oxyCODONE 5 MG Tablet 10 MG PO ×5 (04:45→22:43)
[2023-07-31] MEDS: 0.9% Saline Lock 10 ML Syringe IV ×5 (05:30→17:06)
[2023-07-31] MEDS: HYDROmorphone 1 MG/ML Syringe IV ×3 (05:30→13:37)
[2023-07-31] MEDS: Levothyroxine 25 MCG TABLET PO (06:01)
[2023-07-31] MEDS: Lactulose 20 GM/30 ML UDC PO ×2 (06:01→22:29)
[2023-07-31] MEDS: Insulin Lispro 100 UNIT/ML INSULN.PEN SC ×4 (06:04→22:36)
[2023-07-31 06:24] LABS: Bedside Glucose 259 mg/dL (74-106)
[2023-07-31 08:06] LABS: Absolute Lymphocyte Count 0.53 X10^3/uL (0.83-4.51); Absolute Neutrophil Count 12.2 X10^3/uL (2.0-7.7); Basophil# 0.01 X10^3/uL; Basophil% 0.1 % (0-1); Eosinophil# 0.01 X10^3/uL; Eosinophils% 0.1 % (0-5); Hematocrit 38.4 % (40-54); Hemoglobin 11.7 g/dL (13.0-16.5); Lymphocyte # 0.53 X10^3/ul (0.83-4.51); Lymphocyte % 3.9 % (19-41); Mean Corp Hgb Conc 30.5 g/dL (32-36); Mean Corpuscular Hgb 31.4 pg (27.0-32.0); Mean Corpuscular Volume 102.9 fL (80-94); Mean Platelet Vol. 11.7 fl (6.2-12.0); Monocyte# 0.68 X10^3/uL; NRBC Flagged by Analyzer 0 % (0-5); Neutrophil # 12.17 X10^3/uL (2.7-7.7); Neutrophil % 89.4 % (47-70); POSITIVE COUNT YES; POSITIVE DIFFERENTIAL YES; POSITIVE MORPHOLOGY YES; Platelet Count 159 K/mm3 (150-450); RBC Distribution Width CV 17.7 % (11.6-14.6); RBC Distribution Width SD 66.4 fl (35.1-43.9); Red Blood Count 3.73 M/mm3 (4.6-6.2); White Blood Count 13.6 K/mm3 (4.4-11.0)
[2023-07-31] MEDS: Senna/Docusate Sodium 1 Tablet 2 TABLET PO (08:28)
[2023-07-31] MEDS: APIXABAN 5 MG TABLET PO ×2 (08:29→22:29)
[2023-07-31] MEDS: Hydrocortisone 10 MG Tablet 20 MG PO (08:30)
[2023-07-31] MEDS: Allopurinol 300 MG Tablet PO (08:30)
[2023-07-31] MEDS: Ursodiol 250 MG Tablet PO ×2 (08:30→22:31)
[2023-07-31] MEDS: Metoprolol Tartrate 25 MG Tablet 12.5 MG PO ×2 (08:30→18:09)
[2023-07-31] MEDS: Citalopram 10 MG Tablet PO (08:30)
[2023-07-31] MEDS: Famotidine 20 MG Tablet PO (08:30)
[2023-07-31] MEDS: Amiodarone 200 MG Tablet PO (08:31)
[2023-07-31] MEDS: rifAXIMin 550 MG Tablet PO ×2 (08:31→22:31)
[2023-07-31] MEDS: Tacrolimus 0.5 MG Capsule PO ×2 (08:31→22:31)
[2023-07-31] MEDS: Smz/Tmp Ds Tablet 0.5 TABLET PO (08:31)
[2023-07-31] MEDS: Bumetanide 1 MG/4 ML Vial IV ×2 (08:37→17:05)
[2023-07-31 08:43] LABS: Anion Gap 6 (5-15); BUN 74 mg/dL (7-18); BUN/Creat Ratio 26.7 RATIO (10-20); Calcium,Total 8.3 mg/dL (8.5-10.1); Chloride 106 mmol/L (98-107); Creatinine, Serum 2.77 mg/dL (0.70-1.30); EST Glomerular Filtration Rate 25 mL/min (>60); Est Glom Filt Rate - Afr Amer 30 mL/min (>60); Estimated Creatinine Clearance 28.55 ml/min; Glucose 326 mg/dL (74-106); Sodium Level 136 mmol/L (136-145)
--- NOTE | 2023-07-31 09:39 | PN_ITS ---
Subjective Subjective Patient seen and examined. He said his pain wasnt well controlled. He is POD 1 for ORIF of left trimalleolar ankle fracture. He has no other complaints and review of systems is otherwise negative. He has remained hemodynamically stable. Objective Data Objective Data Vital Signs: Vital Signs Temp Pulse Resp BP Pulse Ox O2 Del Method O2 Flow Rate 97.9 F 112 H 18 120/57 L 94 Room Air 2 07/31/23 07:38 07/31/23 08:30 07/31/23 07:38 07/31/23 07:38 07/31/23 07:38 07/31/23 07:38 07/30/23 17:00 Oxygen Flow Rate (L/min) 2 Oxygen Delivery Method Room Air Weight: 379 lb 3.121 oz Body Mass Index (BMI) 54.3 Intake & Output: Intake and Output for Last 24 Hours 07/29/23 07/30/23 07/31/23 23:59 23:59 23:59 Intake Total 780 / 780 1615 / 1615 757.75 / 757.75 Output Total 300 / 1200 3250 / 3250 500 / 500 Balance 480 / -420 -1635 / -1635 257.75 / 257.75 Lab / Micro Data 07/30/23 03:13 07/31/23 06:35 Labs: Laboratory Results - last 24 hr 07/30/23 11:10: POC Glucose 173 H 07/30/23 21:57: POC Glucose 314 H 07/31/23 06:04: POC Glucose 259 H 07/31/23 06:35: Sodium 136, Potassium 4.9, Chloride 106, Carbon Dioxide 24.0, Anion Gap 6, BUN 74 H, Creatinine 2.77 H, Estim Creat Clear Calc 28.55, Est GFR (MDRD) Af Amer 30 L, Est GFR (MDRD) Non-Af 25 L, BUN/Creatinine Ratio 26.7 H, Glucose 326 H, Calcium 8.3 L Micro: Microbiology 07/25/23 14:28 Nasal Secretion SARS-CoV-2 & FLU Antigen (Rapid) - Final Radiography Diagnostic Testing: Radiology Impression Ankle X-Ray 07/30/23 13:15 IMPRESSION: Status post ORIF of the malleoli. Electronically Signed: Russ Varma DO at 15:57 EST , Physical Exam Const alert, oriented x3 and no apparent distress Constitutional Narrative: super morbid obesity General Appearance: cooperative and well developed HEENT normocephalic, head/scalp atraumatic, moist oral mucous membranes and oropharynx normal Eyes PERRL and EOMs intact bilaterally Neck no lymphadenopathy and supple Lymph Lymphatic: no lymphadenopathy noted and no lymphedema noted Resp normal respiratory effort, normal air movement and clear to auscultation bilaterally Cardio regular rate, regular rhythm, S1 normal heart sound, S2 normal heart sound and no murmurs GI normal to inspection, nondistended, normoactive bowel sounds, soft to palpation and non-tender Extremity Extremity Narrative: LLE wrapped in bandage. Skin General Skin Exam: no breakdown Neuro CN's II-XII intact bilaterally, no focal motor deficits, no sensory deficits n oted and deep tendon reflexes 2+ bilaterally Motor Exam: strength 5/5 throughout Psych thought process normal and cooperative Appearance: appropriate Assessment & Plan Assessment/Plan (1) Trimalleolar fracture of left ankle: QUALIFIERS: Encounter type: initial encounter Fracture type: closed Qualified Code(s): S82.852A - Displaced trimalleolar fracture of left lower leg, initial encounter for closed fracture (2) Acute on chronic kidney failure: PLAN: Plan # Acute on chronic congestive HFpEF * has known EF of 65%. * on bumex * monitor intake and output. * Fluid restriction to 1500cc daily. * #Left ankle pain due to bimalleolar fracture * podiatry on board * s/p left ORIF for left trimalleolar fracture * today is POD 1 * says pain is not very well controlled. On oxycodone 10mg q6hr prn. Will switch to q4hr prn * cannot take tylenol due to his history of liver transplant. * #Hyperkalemia: * resolved. K is 4.9 * nephrology on board * #CKD IV; nephrology on board. management as per nephrology. #History of cirrhosis s/p liver transplant * on tacrolimus * on rifaximin on bactrim and lactulose * #Paroxysmal afib: on amiodarone and metoprolol. On eliquis. #Hypothyroidism: on levothyroxine. #Depression; on citalopram #Super morbid obesity: BMI is 54. Complicates acute care, expected recovery and prognosis. #History of adrenal insufficiency: on hydrocortisone #Left ear cancer: s/p resection. To keep vaseline on area and keep it bandaged. DVT prophylaxis; on eliquis. Disposition: will need placement. Charges/Coding Visit Charges Inpatient E&M: 39079 Subs Hosp L2
[2023-07-31 09:52] LABS: Potassium 4.9 mmol/L (3.5-5.1)
[2023-07-31 11:49] LABS: Bedside Glucose 291 mg/dL (74-106)
--- NOTE | 2023-07-31 12:21 | PCM.PN.REN ---
Subjective Subjective doing well. Creatinine, potassium stable. Surgery yesterday, complains of pain Objective Data Objective Data Vital Signs: Vital Signs Temp Pulse Resp BP Pulse Ox O2 Del Method O2 Flow Rate 97.9 F 112 H 18 120/57 L 94 Room Air 2 07/31/23 07:38 07/31/23 08:30 07/31/23 07:38 07/31/23 07:38 07/31/23 07:38 07/31/23 07:38 07/30/23 17:00 Oxygen Flow Rate (L/min) 2 Oxygen Delivery Method Room Air Weight: 172 kg Body Mass Index (BMI) 54.3 Intake & Output: Intake and Output for Last 24 Hours 07/29/23 07/30/23 07/31/23 23:59 23:59 23:59 Intake Total 780 / 780 1615 / 1615 757.75 / 757.75 Output Total 300 / 1200 3250 / 3250 500 / 500 Balance 480 / -420 -1635 / -1635 257.75 / 257.75 Lab / Micro Data 07/31/23 06:35 07/31/23 06:35 Labs: Laboratory Results - last 24 hr 07/30/23 21:57: POC Glucose 314 H 07/31/23 06:04: POC Glucose 259 H 07/31/23 06:35: WBC 13.6 H, RBC 3.73 L, Hgb 11.7 L, Hct 38.4 L, MCV 102.9 H, MCH 31.4, MCHC 30.5 L, RDW Std Deviation 66.4 H, RDW Coeff of Maciel 17.7 H, Plt Count 159, MPV 11.7, Immature Gran % (Auto) 1.500 H, Neut % (Auto) 89.4 H, Lymph % (Auto) 3.9 L, [place] % (Auto) 5.0, Eos % (Auto) 0.1, Baso % (Auto) 0.1, Absolute Neuts (auto) 12.2 H, Absolute Lymphs (auto) 0.53 L, Nucleated RBC % 0, Sodium 136, Potassium 4.9, Chloride 106, Carbon Dioxide 24.0, Anion Gap 6, BUN 74 H, Creatinine 2.77 H, Estim Creat Clear Calc 28.55, Est GFR (MDRD) Af Amer 30 L, Est GFR (MDRD) Non-Af 25 L, BUN/Creatinine Ratio 26.7 H, Glucose 326 H, Calcium 8.3 L 07/31/23 11:27: POC Glucose 291 H Micro: Microbiology 07/25/23 14:28 Nasal Secretion SARS-CoV-2 & FLU Antigen (Rapid) - Final Radiography Diagnostic Testing: Radiology Impression Ankle X-Ray 07/30/23 13:15 IMPRESSION: Status post ORIF of the malleoli. Electronically Signed: Russ Varma DO at 15:57 EST , Physical Exam Const alert and oriented x3 Resp clear to auscultation bilaterally Cardio Rhythm: abnormal rhythm irregularly irregular GI non-tender and non-distended Palpation: soft Extremity no clubbing, cyanosis or edema Assessment & Plan Assessment/Plan (1) Acute on chronic kidney failure: PLAN: Creatinine improved (2) CKD (chronic kidney disease), stage IV: PLAN: baseline creatinien 2.3 to 2.5 (3) Hyperkalemia: PLAN: resolved (4) Acute diastolic CHF (congestive heart failure): PLAN: continue to monitor renal fxn while on iv bumex (5) Liver transplant recipient: PLAN: on tacrolimus. Check for HRS (6) Bimalleolar avulsion fracture of left ankle: (7) Hypertension: QUALIFIERS: Hypertension type: primary hypertension Qualified Code(s): I10 - Essential (primary) hypertension PLAN: stable BP (8) Atrial fibrillation: QUALIFIERS: Atrial fibrillation type: unspecified chronic Qualified Code(s): I48.20 - Chronic atrial fibrillation, unspecified PLAN: afib y
--- NOTE | 2023-07-31 12:43 | PCM.PROGNOTE ---
Subjective Subjective Some pain this afternoon. Denies constitutionals, denies chest pain, calf pain, shortness of breath. No other issues overnight. Objective Data Objective Data Vital Signs: Vital Signs Temp Pulse Resp BP Pulse Ox O2 Del Method O2 Flow Rate 97.9 F 112 H 18 120/57 L 94 Room Air 2 07/31/23 07:38 07/31/23 08:30 07/31/23 07:38 07/31/23 07:38 07/31/23 07:38 07/31/23 07:38 07/30/23 17:00 Oxygen Flow Rate (L/min) 2 Oxygen Delivery Method Room Air Weight: 172 kg Body Mass Index (BMI) 54.3 Intake & Output: Intake and Output for Last 24 Hours 07/29/23 07/30/23 07/31/23 23:59 23:59 23:59 Intake Total 780 / 780 1615 / 1615 757.75 / 757.75 Output Total 300 / 1200 3250 / 3250 500 / 500 Balance 480 / -420 -1635 / -1635 257.75 / 257.75 Lab / Micro Data 07/31/23 06:35 07/31/23 06:35 Labs: Laboratory Results - last 24 hr 07/30/23 21:57: POC Glucose 314 H 07/31/23 06:04: POC Glucose 259 H 07/31/23 06:35: WBC 13.6 H, RBC 3.73 L, Hgb 11.7 L, Hct 38.4 L, MCV 102.9 H, MCH 31.4, MCHC 30.5 L, RDW Std Deviation 66.4 H, RDW Coeff of Maciel 17.7 H, Plt Count 159, MPV 11.7, Immature Gran % (Auto) 1.500 H, Neut % (Auto) 89.4 H, Lymph % (Auto) 3.9 L, [place] % (Auto) 5.0, Eos % (Auto) 0.1, Baso % (Auto) 0.1, Absolute Neuts (auto) 12.2 H, Absolute Lymphs (auto) 0.53 L, Nucleated RBC % 0, Sodium 136, Potassium 4.9, Chloride 106, Carbon Dioxide 24.0, Anion Gap 6, BUN 74 H, Creatinine 2.77 H, Estim Creat Clear Calc 28.55, Est GFR (MDRD) Af Amer 30 L, Est GFR (MDRD) Non-Af 25 L, BUN/Creatinine Ratio 26.7 H, Glucose 326 H, Calcium 8.3 L 07/31/23 11:27: POC Glucose 291 H Micro: Microbiology 07/25/23 14:28 Nasal Secretion SARS-CoV-2 & FLU Antigen (Rapid) - Final Radiography Diagnostic Testing: Radiology Impression Ankle X-Ray 07/30/23 13:15 IMPRESSION: Status post ORIF of the malleoli. Electronically Signed: Russ Varma DO at 15:57 EST Reading Location ID and State: [facility] / [place] Tel [phone], Service support , Physical Exam Narrative AO splint in tact before extremity Neurovascular status intact proximal distal dressing No strikethrough to dressing no pain with calf squeeze bilaterally Const alert and oriented x3 Assessment & Plan Assessment/Plan (1) Trimalleolar fracture of left ankle: QUALIFIERS: Encounter type: initial encounter Fracture type: closed Qualified Code(s): S82.852A - Displaced trimalleolar fracture of left lower leg, initial encounter for closed fracture PLAN: Exam performed Splint intact to left lower extremity Continue nonweightbearing left lower extremity for next 4 to 8 weeks Patient stable from podiatry standpoint for DC, no dressing changes required will follow weekly in TCU
[2023-07-31] MEDS: Hydrocortisone 10 MG Tablet PO (17:05)
--- NOTE | 2023-07-31 17:14 | EKG12_ITS ---
Test Reason : RHYTHM CHANGE Blood Pressure : / mmHG Vent. Rate : 141 BPM Atrial Rate : 000 BPM P-R Int : 000 ms QRS Dur : 096 ms QT Int : 334 ms P-R-T Axes : 000 -68 047 degrees QTc Int : 511 ms Critical Test Result: High HR Supraventricular tachycardia Low voltage QRS Left anterior fascicular block Nonspecific ST abnormality Abnormal ECG When compared with ECG of 29-JUL-2023 05:43, Sinus rhythm has replaced Atrial fibrillation ST now depressed in Inferior leads Nonspecific T wave abnormality now evident in Lateral leads Confirmed by SAHIL SHIPMAN, ROULA ([id number]), editorial writer JULIO CÉSAR SOLORIO ([id number]) on 08/02/2023 9:15:06 AM Referred By: Confirmed By:ROULA BAXTER MD
[2023-07-31 17:28] LABS: Bedside Glucose 287 mg/dL (74-106)
--- NOTE | 2023-07-31 17:28 | NURSING ---
charge nurse assisting in cardiac monitoring of pt
--- NOTE | 2023-07-31 18:00 | NURSING ---
charge nurse aware of new orders from MD regarding EKG's, pt status.
[2023-07-31] MEDS: dilTIAZem 25 MG/5 ML Vial 20 MG IV BOLUS (18:09)
[2023-07-31] MEDS: Metoprolol Tartrate 25 MG Tablet PO (22:30)
[2023-07-31] MEDS: MELATONIN 3 MG TABLET PO (22:39)
[2023-07-31 23:01] LABS: Bedside Glucose 263 mg/dL (74-106)
[2023-08-01] VITALS (7 sets, daily range): BP systolic 100–117; BP diastolic 55–81; PULSE 69–93; RESP 16–20; TEMP 36.2–36.8; O2SAT 95–99; BMI 54.8
[2023-08-01] MEDS: Lactulose 20 GM/30 ML UDC PO ×2 (05:16→22:21)
[2023-08-01] MEDS: Levothyroxine 25 MCG TABLET PO (05:17)
[2023-08-01] MEDS: Insulin Lispro 100 UNIT/ML INSULN.PEN SC ×4 (06:23→22:22)
[2023-08-01 06:42] LABS: Bedside Glucose 237 mg/dL (74-106)
[2023-08-01 06:57] LABS: Absolute Lymphocyte Count 0.83 X10^3/uL (0.83-4.51); Absolute Neutrophil Count 12.4 X10^3/uL (2.0-7.7); Basophil# 0.01 X10^3/uL; Basophil% 0.1 % (0-1); Hematocrit 34.3 % (40-54); Hemoglobin 10.7 g/dL (13.0-16.5); Lymphocyte # 0.83 X10^3/ul (0.83-4.51); Lymphocyte % 5.8 % (19-41); Mean Corp Hgb Conc 31.2 g/dL (32-36); Mean Corpuscular Volume 99.4 fL (80-94); Mean Platelet Vol. 11.2 fl (6.2-12.0); Monocyte# 0.83 X10^3/uL; Monocyte% 5.8 % (0-10); NRBC Flagged by Analyzer 0 % (0-5); Neutrophil # 12.38 X10^3/uL (2.7-7.7); Neutrophil % 86.4 % (47-70); Platelet Count 136 K/mm3 (150-450); RBC Distribution Width CV 17.5 % (11.6-14.6); RBC Distribution Width SD 62.8 fl (35.1-43.9); Red Blood Count 3.45 M/mm3 (4.6-6.2); White Blood Count 14.3 K/mm3 (4.4-11.0)
[2023-08-01 06:59] LABS: Anion Gap 4 (5-15); BUN 76 mg/dL (7-18); BUN/Creat Ratio 29.3 RATIO (10-20); Calcium,Total 8.1 mg/dL (8.5-10.1); Chloride 108 mmol/L (98-107); Creatinine, Serum 2.59 mg/dL (0.70-1.30); EST Glomerular Filtration Rate 27 mL/min (>60); Est Glom Filt Rate - Afr Amer 32 mL/min (>60); Estimated Creatinine Clearance 30.53 ml/min; Glucose 247 mg/dL (74-106); Potassium 4.9 mmol/L (3.5-5.1); Sodium Level 138 mmol/L (136-145)
[2023-08-01] MEDS: APIXABAN 5 MG TABLET PO ×2 (08:20→22:20)
[2023-08-01] MEDS: Tacrolimus 0.5 MG Capsule PO ×2 (08:20→22:20)
[2023-08-01] MEDS: Metoprolol Tartrate 25 MG Tablet PO ×2 (08:20→22:21)
[2023-08-01] MEDS: Ursodiol 250 MG Tablet PO ×2 (08:21→22:19)
[2023-08-01] MEDS: rifAXIMin 550 MG Tablet PO ×2 (08:21→22:22)
[2023-08-01] MEDS: Allopurinol 300 MG Tablet PO (08:21)
[2023-08-01] MEDS: Famotidine 20 MG Tablet PO (08:21)
[2023-08-01] MEDS: Citalopram 10 MG Tablet PO (08:21)
[2023-08-01] MEDS: Bumetanide 1 MG/4 ML Vial IV ×2 (08:22→20:06)
[2023-08-01] MEDS: Smz/Tmp Ds Tablet 0.5 TABLET PO (08:22)
[2023-08-01] MEDS: Hydrocortisone 10 MG Tablet 20 MG PO (08:22)
[2023-08-01] MEDS: Amiodarone 200 MG Tablet PO (08:22)
[2023-08-01] MEDS: 0.9% Saline Lock 10 ML Syringe IV ×2 (08:24→20:09)
--- NOTE | 2023-08-01 08:43 | PN.RENAL_ITS ---
Subjective Subjective twitching, somnolent but arrousable. Denies diabetes, sleep apnea Objective Data Objective Data Vital Signs: Vital Signs Temp Pulse Resp BP Pulse Ox O2 Del Method O2 Flow Rate 97.2 F L 93 18 106/70 95 Room Air 2 08/01/23 08:18 08/01/23 08:20 08/01/23 08:18 08/01/23 08:18 08/01/23 08:18 08/01/23 08:18 07/30/23 17:00 Oxygen Flow Rate (L/min) 2 Oxygen Delivery Method Room Air Weight: 173.5 kg Body Mass Index (BMI) 54.8 Intake & Output: Intake and Output for Last 24 Hours 07/30/23 07/31/23 08/01/23 23:59 23:59 23:59 Intake Total 1615 / 1615 1617.75 / 1617.75 440 / 440 Output Total 3250 / 3250 1450 / 1450 750 / 750 Balance -1635 / -1635 167.75 / 167.75 -310 / -310 Lab / Micro Data 08/01/23 06:51 08/01/23 06:10 Labs: Laboratory Results - last 24 hr 07/31/23 06:35: WBC 13.6 H, RBC 3.73 L, Hgb 11.7 L, Hct 38.4 L, MCV 102.9 H, MCH 31.4, MCHC 30.5 L, RDW Std Deviation 66.4 H, RDW Coeff of Maciel 17.7 H, Plt Count 159, MPV 11.7, Immature Gran % (Auto) 1.500 H, Neut % (Auto) 89.4 H, Lymph % (Auto) 3.9 L, [place] % (Auto) 5.0, Eos % (Auto) 0.1, Baso % (Auto) 0.1, Absolute Neuts (auto) 12.2 H, Absolute Lymphs (auto) 0.53 L, Nucleated RBC % 0, Sodium 136, Potassium 4.9, Chloride 106, Carbon Dioxide 24.0, Anion Gap 6, BUN 74 H, Creatinine 2.77 H, Estim Creat Clear Calc 28.55, Est GFR (MDRD) Af Amer 30 L, Est GFR (MDRD) Non-Af 25 L, BUN/Creatinine Ratio 26.7 H, Glucose 326 H, Calcium 8.3 L 07/31/23 11:27: POC Glucose 291 H 07/31/23 17:01: POC Glucose 287 H 07/31/23 22:35: POC Glucose 263 H 08/01/23 06:10: WBC Cancelled, Corrected WBC Cancelled, RBC Cancelled, Hgb Cancelled, Hct Cancelled, MCV Cancelled, MCH Cancelled, MCHC Cancelled, RDW Std Deviation Cancelled, RDW Coeff of Maciel Cancelled, Plt Count Cancelled, MPV Cancelled, Immature Gran % (Auto) Cancelled, Neut % (Auto) Cancelled, Lymph % (Auto) Cancelled, [place] % (Auto) Cancelled, Eos % (Auto) Cancelled, Baso % (Auto) Cancelled, Absolute Neuts (auto) Cancelled, Absolute Lymphs (auto) Cancelled, Total Counted Cancelled, Neutrophils % (Manual) Cancelled, Band Neutrophils % Cancelled, Lymphocytes % (Manual) Cancelled, Monocytes % (Manual) Cancelled, Eosinophils % (Manual) Cancelled, Basophils % (Manual) Cancelled, Metamyelocytes % Cancelled, Myelocytes % Cancelled, Promyelocytes % Cancelled, Blast Cells % Cancelled, Plasma Cell % (Manual) Cancelled, Other Cells % Cancelled, Nucleated RBC % Cancelled, Nucleated RBCs/100 WBC Cancelled, Differential Comment Cancelled, Diff Path Review Cancelled, Hypersegmented Neuts Cancelled, Atypical Lymphocytes Cancelled, Reactive Lymphocytes Cancelled, Smudge Cells Cancelled, Toxic Granulation Cancelled, Toxic Vacuolation Cancelled, Dohle Bodies Cancelled, Kindra Rods Cancelled, Platelet Estimate Cancelled, Plt Morphology Comment Cancelled, RBC Morphology Cancelled 08/01/23 06:10: RBC Morphology Cancelled, Polychromasia Cancelled, Hypochromasia Cancelled, Poikilocytosis Cancelled, Basophilic Stippling Cancelled, Anisocytosis Cancelled, Microcytosis Cancelled, Macrocytosis Cancelled, Spherocytes Cancelled, Sickle Cells Cancelled, Target Cells Cancelled, Tear Drop Cells Cancelled, Ovalocytes Cancelled, Stomatocytes Cancelled, [place] Bodies Cancelled, [place] Cells Cancelled, Bite Cells Cancelled, Crenated Cell Cancelled, Acanthocytes (Spur) Cancelled, Rouleaux Cancelled, Schistocytes Cancelled, Sodium 138, Potassium 4.9, Chloride 108 H, Carbon Dioxide 26.0, Anion Gap 4 L, BUN 76 H, Creatinine 2.59 H, Estim Creat Clear Calc 30.53, Est GFR (MDRD) Af Amer 32 L, Est GFR (MDRD) Non-Af 27 L, BUN/Creatinine Ratio 29.3 H, Glucose 247 H, Calcium 8.1 L 08/01/23 06:22: POC Glucose 237 H 08/01/23 06:51: WBC 14.3 H, RBC 3.45 L, Hgb 10.7 L, Hct 34.3 L, MCV 99.4 H, MCH 31.0, MCHC 31.2 L, RDW Std Deviation 62.8 H, RDW Coeff of Maciel 17.5 H, Plt Count 136 L, MPV 11.2, Immature Gran % (Auto) 1.900 H, Neut % (Auto) 86.4 H, Lymph % (Auto) 5.8 L, [place] % (Auto) 5.8, Eos % (Auto) 0.0, Baso % (Auto) 0.1, Absolute Neuts (auto) 12.4 H, Absolute Lymphs (auto) 0.83, Nucleated RBC % 0 Micro: Microbiology 07/25/23 14:28 Nasal Secretion SARS-CoV-2 & FLU Antigen (Rapid) - Final Physical Exam Narrative somnolent Const Nutritional Appearance: morbidly obese Resp clear to auscultation bilaterally Cardio Rhythm: abnormal rhythm irregularly irregular GI non-tender and non-distended GI Narrative: obese Palpation: soft Extremity Extremity Narrative: left ankle fracture General Extremity: edema Neuro Neuro Narrative: twictching while sleeping Psych cooperative Assessment & Plan Assessment/Plan (1) Acute on chronic kidney failure: PLAN: Creatinine improved to baseline (2) CKD (chronic kidney disease), stage IV: PLAN: baseline creatinien 2.3 to 2.5 (3) Hyperkalemia: PLAN: resolved (4) Acute diastolic CHF (congestive heart failure): PLAN: continue to monitor renal fxn while on iv bumex (5) Liver transplant recipient: PLAN: on tacrolimus. (6) Bimalleolar avulsion fracture of left ankle: (7) Hypertension: QUALIFIERS: Hypertension type: primary hypertension Qualified Code(s): I10 - Essential (primary) hypertension PLAN: stable BP (8) Hepatic encephalopathy: PLAN: check ammonia level
[2023-08-01] MEDS: oxyCODONE 5 MG Tablet 10 MG PO (09:38)
[2023-08-01 11:44] LABS: Bedside Glucose 253 mg/dL (74-106)
--- NOTE | 2023-08-01 14:06 | PN_ITS ---
Subjective Subjective Patient seen and examined. He felt weak and was a bit lethargic. He had an uneventful night. Review of systems is otherwise negative. Objective Data Objective Data Vital Signs: Vital Signs Temp Pulse Resp BP Pulse Ox O2 Del Method O2 Flow Rate 97.2 F L 93 18 106/70 95 Room Air 2 08/01/23 08:18 08/01/23 08:20 08/01/23 08:18 08/01/23 08:18 08/01/23 08:18 08/01/23 08:18 07/30/23 17:00 Oxygen Flow Rate (L/min) 2 Oxygen Delivery Method Room Air Weight: 382 lb 8.032 oz Body Mass Index (BMI) 54.8 Intake & Output: Intake and Output for Last 24 Hours 07/30/23 07/31/23 08/01/23 23:59 23:59 23:59 Intake Total 1615 / 1615 1617.75 / 1617.75 440 / 440 Output Total 3250 / 3250 1450 / 1450 750 / 750 Balance -1635 / -1635 167.75 / 167.75 -310 / -310 Lab / Micro Data 08/01/23 06:51 08/01/23 06:10 Labs: Laboratory Results - last 24 hr 07/31/23 17:01: POC Glucose 287 H 07/31/23 22:35: POC Glucose 263 H 08/01/23 06:10: WBC Cancelled, Corrected WBC Cancelled, RBC Cancelled, Hgb Cancelled, Hct Cancelled, MCV Cancelled, MCH Cancelled, MCHC Cancelled, RDW Std Deviation Cancelled, RDW Coeff of Maciel Cancelled, Plt Count Cancelled, MPV Cancelled, Immature Gran % (Auto) Cancelled, Neut % (Auto) Cancelled, Lymph % (Auto) Cancelled, [place] % (Auto) Cancelled, Eos % (Auto) Cancelled, Baso % (Auto) Cancelled, Absolute Neuts (auto) Cancelled, Absolute Lymphs (auto) Cancelled, Total Counted Cancelled, Neutrophils % (Manual) Cancelled, Band Neutrophils % Cancelled, Lymphocytes % (Manual) Cancelled, Monocytes % (Manual) Cancelled, Eosinophils % (Manual) Cancelled, Basophils % (Manual) Cancelled, Metamyelocytes % Cancelled, Myelocytes % Cancelled, Promyelocytes % Cancelled, Blast Cells % Cancelled, Plasma Cell % (Manual) Cancelled, Other Cells % Cancelled, Nucleated RBC % Cancelled, Nucleated RBCs/100 WBC Cancelled, Differential Comment Cancelled, Diff Path Review Cancelled, Hypersegmented Neuts Cancelled, Atypical Lymphocytes Cancelled, Reactive Lymphocytes Cancelled, Smudge Cells Cancelled, Toxic Granulation Cancelled, Toxic Vacuolation Cancelled, Dohle Bodies Cancelled, Kindra Rods Cancelled, Platelet Estimate Cancelled, Plt Morphology Comment Cancelled, RBC Morphology Cancelled 08/01/23 06:10: RBC Morphology Cancelled, Polychromasia Cancelled, Hypochromasia Cancelled, Poikilocytosis Cancelled, Basophilic Stippling Cancelled, Anisocytosis Cancelled, Microcytosis Cancelled, Macrocytosis Cancelled, Spherocytes Cancelled, Sickle Cells Cancelled, Target Cells Cancelled, Tear Drop Cells Cancelled, Ovalocytes Cancelled, Stomatocytes Cancelled, [place] Bodies Cancelled, [place] Cells Cancelled, Bite Cells Cancelled, Crenated Cell Cancelled, Acanthocytes (Spur) Cancelled, Rouleaux Cancelled, Schistocytes Cancelled, Sodium 138, Potassium 4.9, Chloride 108 H, Carbon Dioxide 26.0, Anion Gap 4 L, BUN 76 H, Creatinine 2.59 H, Estim Creat Clear Calc 30.53, Est GFR (MDRD) Af Amer 32 L, Est GFR (MDRD) Non-Af 27 L, BUN/Creatinine Ratio 29.3 H, Glucose 247 H, Calcium 8.1 L 08/01/23 06:22: POC Glucose 237 H 08/01/23 06:51: WBC 14.3 H, RBC 3.45 L, Hgb 10.7 L, Hct 34.3 L, MCV 99.4 H, MCH 31.0, MCHC 31.2 L, RDW Std Deviation 62.8 H, RDW Coeff of Maciel 17.5 H, Plt Count 136 L, MPV 11.2, Immature Gran % (Auto) 1.900 H, Neut % (Auto) 86.4 H, Lymph % (Auto) 5.8 L, [place] % (Auto) 5.8, Eos % (Auto) 0.0, Baso % (Auto) 0.1, Absolute Neuts (auto) 12.4 H, Absolute Lymphs (auto) 0.83, Nucleated RBC % 0 08/01/23 11:24: POC Glucose 253 H 08/01/23 11:30: Ammonia Cancelled 08/01/23 12:35: Ammonia 14.0 Micro: Microbiology 07/25/23 14:28 Nasal Secretion SARS-CoV-2 & FLU Antigen (Rapid) - Final Physical Exam Const alert, oriented x3 and no apparent distress Constitutional Narrative: super morbid obesity General Appearance: cooperative and well developed HEENT normocephalic, head/scalp atraumatic, moist oral mucous membranes and oropharynx normal Eyes PERRL and EOMs intact bilaterally Neck no lymphadenopathy and supple Lymph Lymphatic: no lymphadenopathy noted and no lymphedema noted Resp normal respiratory effort, normal air movement and clear to auscultation bilaterally Cardio regular rate, regular rhythm, S1 normal heart sound, S2 normal heart sound and no murmurs GI normal to inspection, nondistended, normoactive bowel sounds, soft to palpation and non-tender Extremity Extremity Narrative: LLE wrapped in bandage. Skin General Skin Exam: no breakdown Neuro CN's II-XII intact bilaterally, no focal motor deficits, no sensory deficits noted and deep tendon reflexes 2+ bilaterally Motor Exam: strength 5/5 throughout Psych thought process normal Psych Narrative: lethargic Assessment & Plan Assessment/Plan (1) Trimalleolar fracture of left ankle: QUALIFIERS: Encounter type: initial encounter Fracture type: closed Qualified Code(s): S82.852A - Displaced trimalleolar fracture of left lower leg, initial encounter for closed fracture (2) Acute on chronic kidney failure: PLAN: Plan # Acute on chronic congestive HFpEF * has known EF of 65%. * on bumex * monitor intake and output. * Fluid restriction to 1500cc daily. * #Left ankle pain due to bimalleolar fracture * podiatry on board * s/p left ORIF for left trimalleolar fracture * today is POD 2 * says pain is not very well controlled. On oxycodone 10mg q4hr prn * cannot take tylenol due to his history of liver transplant. * #Hyperkalemia: * resolved. K is still 4.9 * nephrology on board * #CKD IV; nephrology on board. management as per nephrology. #History of cirrhosis s/p liver transplant * on tacrolimus * on rifaximin on bactrim and lactulose * #Paroxysmal afib: on amiodarone and metoprolol. On eliquis. #Hypothyroidism: on levothyroxine. #Depression; on citalopram #Super morbid obesity: BMI is 54. Complicates acute care, expected recovery and prognosis. #History of adrenal insufficiency: on hydrocortisone #Left ear cancer: s/p resection. To keep vaseline on area and keep it bandaged. DVT prophylaxis; on eliquis. Disposition: awaiting placement Charges/Coding Visit Charges Inpatient E&M: 80359 Subs Hosp L2
[2023-08-01] MEDS: Hydrocortisone 10 MG Tablet PO (16:13)
[2023-08-01 17:46] LABS: Bedside Glucose 317 mg/dL (74-106)
[2023-08-01 23:16] LABS: Bedside Glucose 283 mg/dL (74-106)
--- NOTE | 2023-08-01 23:55 | NURSING ---
pt insists on 4 rails up at all times this shift.
[2023-08-02] VITALS (7 sets, daily range): BP systolic 105–127; BP diastolic 44–57; PULSE 61–120; RESP 16–18; TEMP 36.5–36.9; O2SAT 96–100; BMI 55.0
[2023-08-02] MEDS: oxyCODONE 5 MG Tablet 10 MG PO ×3 (02:44→21:34)
--- NOTE | 2023-08-02 03:09 | NURSING ---
pt requested water refill, coke and lenny doones. reminded of fluid restriction, carb control diet states he wants the beverages and snack.
[2023-08-02 06:25] LABS: Absolute Lymphocyte Count 0.97 X10^3/uL (0.83-4.51); Absolute Neutrophil Count 11.9 X10^3/uL (2.0-7.7); Basophil# 0.02 X10^3/uL; Basophil% 0.1 % (0-1); Hemoglobin 11.2 g/dL (13.0-16.5); Lymphocyte # 0.97 X10^3/ul (0.83-4.51); Lymphocyte % 6.8 % (19-41); Mean Corpuscular Hgb 31.6 pg (27.0-32.0); Mean Corpuscular Volume 98.9 fL (80-94); Mean Platelet Vol. 10.8 fl (6.2-12.0); Monocyte# 1.12 X10^3/uL; Monocyte% 7.9 % (0-10); NRBC Flagged by Analyzer 0 % (0-5); Neutrophil # 11.86 X10^3/uL (2.7-7.7); Neutrophil % 83.4 % (47-70); Platelet Count 120 K/mm3 (150-450); RBC Distribution Width CV 17.4 % (11.6-14.6); RBC Distribution Width SD 62.7 fl (35.1-43.9); Red Blood Count 3.54 M/mm3 (4.6-6.2); White Blood Count 14.2 K/mm3 (4.4-11.0)
[2023-08-02] MEDS: Insulin Lispro 100 UNIT/ML INSULN.PEN SC ×4 (06:26→21:39)
[2023-08-02] MEDS: Lactulose 20 GM/30 ML UDC PO ×2 (06:27→21:33)
[2023-08-02] MEDS: Levothyroxine 25 MCG TABLET PO (06:27)
[2023-08-02 06:50] LABS: Bedside Glucose 242 mg/dL (74-106)
[2023-08-02 07:29] LABS: Anion Gap 7 (5-15); BUN 75 mg/dL (7-18); BUN/Creat Ratio 30.1 RATIO (10-20); Calcium,Total 8.2 mg/dL (8.5-10.1); Chloride 106 mmol/L (98-107); Creatinine, Serum 2.49 mg/dL (0.70-1.30); EST Glomerular Filtration Rate 28 mL/min (>60); Est Glom Filt Rate - Afr Amer 34 mL/min (>60); Estimated Creatinine Clearance 31.76 ml/min; Glucose 252 mg/dL (74-106); Potassium 3.7 mmol/L (3.5-5.1); Sodium Level 138 mmol/L (136-145)
[2023-08-02] MEDS: Amiodarone 200 MG Tablet PO (08:58)
[2023-08-02] MEDS: Hydrocortisone 10 MG Tablet 20 MG PO (08:58)
[2023-08-02] MEDS: Smz/Tmp Ds Tablet 0.5 TABLET PO (08:58)
[2023-08-02] MEDS: Citalopram 10 MG Tablet PO (08:59)
[2023-08-02] MEDS: Metoprolol Tartrate 25 MG Tablet PO ×2 (08:59→21:33)
[2023-08-02] MEDS: Famotidine 20 MG Tablet PO (08:59)
[2023-08-02] MEDS: APIXABAN 5 MG TABLET PO ×2 (08:59→21:33)
[2023-08-02] MEDS: rifAXIMin 550 MG Tablet PO ×2 (08:59→21:33)
[2023-08-02] MEDS: Ursodiol 250 MG Tablet PO ×2 (08:59→21:33)
[2023-08-02] MEDS: Tacrolimus 0.5 MG Capsule PO ×2 (08:59→21:33)
[2023-08-02] MEDS: Allopurinol 300 MG Tablet PO (08:59)
[2023-08-02] MEDS: Bumetanide 1 MG/4 ML Vial IV ×2 (09:00→17:15)
[2023-08-02] MEDS: 0.9% Saline Lock 10 ML Syringe IV ×2 (09:01→17:16)
--- NOTE | 2023-08-02 10:54 | PN_ITS ---
Subjective Subjective Patient seen and examined. He says the pain in his leg is not very well controlled. Review of system is otherwise negative. Objective Data Objective Data Vital Signs: Vital Signs Temp Pulse Resp BP Pulse Ox O2 Del Method O2 Flow Rate 97.7 F L 65 18 124/57 H 100 Room Air 2 08/02/23 08:45 08/02/23 08:59 08/02/23 08:45 08/02/23 08:45 08/02/23 08:45 08/02/23 08:45 07/30/23 17:00 Oxygen Flow Rate (L/min) 2 Oxygen Delivery Method Room Air Weight: 383 lb 9.669 oz Body Mass Index (BMI) 55.0 Intake & Output: Intake and Output for Last 24 Hours 07/31/23 08/01/23 08/02/23 23:59 23:59 23:59 Intake Total 1617.75 / 1617.75 560 / 2160 1600 / 1600 Output Total 1450 / 1450 1650 / 2350 700 / 700 Balance 167.75 / 167.75 -1090 / -190 900 / 900 Lab / Micro Data 08/02/23 06:15 08/02/23 06:15 Labs: Laboratory Results - last 24 hr 08/01/23 11:24: POC Glucose 253 H 08/01/23 11:30: Ammonia Cancelled 08/01/23 12:35: Ammonia 14.0 08/01/23 16:11: POC Glucose 317 H 08/01/23 22:18: POC Glucose 283 H 08/02/23 06:15: WBC 14.2 H, RBC 3.54 L, Hgb 11.2 L, Hct 35.0 L, MCV 98.9 H, MCH 31.6, MCHC 32.0, RDW Std Deviation 62.7 H, RDW Coeff of Maciel 17.4 H, Plt Count 120 L, MPV 10.8, Immature Gran % (Auto) 1.800 H, Neut % (Auto) 83.4 H, Lymph % (Auto) 6.8 L, [place] % (Auto) 7.9, Eos % (Auto) 0.0, Baso % (Auto) 0.1, Absolute Neuts (auto) 11.9 H, Absolute Lymphs (auto) 0.97, Nucleated RBC % 0, Sodium 138, Potassium 3.7, Chloride 106, Carbon Dioxide 25.0, Anion Gap 7, BUN 75 H, Creatinine 2.49 H, Estim Creat Clear Calc 31.76, Est GFR (MDRD) Af Amer 34 L, Est GFR (MDRD) Non-Af 28 L, BUN/Creatinine Ratio 30.1 H, Glucose 252 H, Calcium 8.2 L, Ammonia 54.0 H 08/02/23 06:26: POC Glucose 242 H Micro: Microbiology 07/25/23 14:28 Nasal Secretion SARS-CoV-2 & FLU Antigen (Rapid) - Final Physical Exam Const alert, oriented x3 and no apparent distress Constitutional Narrative: super morbid obesity General Appearance: cooperative and well developed HEENT normocephalic, head/scalp atraumatic, moist oral mucous membranes and oropharynx normal Eyes PERRL and EOMs intact bilaterally Neck no lymphadenopathy and supple Lymph Lymphatic: no lymphadenopathy noted and no lymphedema noted Resp normal respiratory effort, normal air movement and clear to auscultation bilaterally Cardio regular rate, regular rhythm, S1 normal heart sound, S2 normal heart sound and no murmurs GI normal to inspection, nondistended, normoactive bowel sounds, soft to palpation and non-tender Extremity Extremity Narrative: LLE wrapped in bandage. Skin General Skin Exam: no breakdown Neuro CN's II-XII intact bilaterally, no focal motor deficits, no sensory deficits noted and deep tendon reflexes 2+ bilaterally Motor Exam: strength 5/5 throughout Psych thought process normal and cooperative Psych Narrative: lethargic Appearance: appropriate Assessment & Plan Assessment/Plan (1) Trimalleolar fracture of left ankle: QUALIFIERS: Encounter type: initial encounter Fracture type: closed Qualified Code(s): S82.852A - Displaced trimalleolar fracture of left lower leg, initial encounter for closed fracture (2) Acute on chronic kidney failure: PLAN: Plan # Acute on chronic congestive HFpEF * has known EF of 65%. * on bumex * monitor intake and output. * Fluid restriction to 1500cc daily. * #Left ankle pain due to bimalleolar fracture * podiatry on board * s/p left ORIF for left trimalleolar fracture * today is POD 3 * On oxycodone 10mg q4hr prn for pain * cannot take tylenol due to his history of liver transplant. * #Hyperkalemia: * resolved. K is still 4.9 * nephrology on board * #CKD IV; nephrology on board. management as per nephrology. #History of cirrhosis s/p liver transplant * on tacrolimus * on rifaximin on bactrim and lactulose * #Paroxysmal afib: on amiodarone and metoprolol. On eliquis. #Hypothyroidism: on levothyroxine. #Depression; on citalopram #Super morbid obesity: BMI is 54. Complicates acute care, expected recovery and prognosis. #History of adrenal insufficiency: on hydrocortisone #Left ear cancer: s/p resection. To keep vaseline on area and keep it bandaged. DVT prophylaxis; on eliquis. Disposition: awaiting placement Charges/Coding Visit Charges Inpatient E&M: 07352 Subs Hosp L2
[2023-08-02 11:40] LABS: Bedside Glucose 257 mg/dL (74-106)
--- NOTE | 2023-08-02 16:35 | CASEMGMT ---
TCU has started pre-cert. Await authorization. Kaley Riddle [employer]
[2023-08-02] MEDS: Hydrocortisone 10 MG Tablet PO (16:44)
[2023-08-02 17:02] LABS: Bedside Glucose 328 mg/dL (74-106)
[2023-08-03 00:08] LABS: Bedside Glucose 219 mg/dL (74-106)
[2023-08-03 03:45] VITALS: BP 117/53; PULSE 60; RESP 18; TEMP 36.7; O2SAT 98
[2023-08-03 06:00] VITALS: BMI 54.8
[2023-08-03] MEDS: Levothyroxine 25 MCG TABLET PO (06:18)
[2023-08-03] MEDS: Insulin Lispro 100 UNIT/ML INSULN.PEN SC ×4 (06:18→21:50)
[2023-08-03] MEDS: Lactulose 20 GM/30 ML UDC PO ×2 (06:18→21:51)
[2023-08-03 06:29] LABS: Absolute Neutrophil Count 10.3 X10^3/uL (2.0-7.7); Basophil# 0.01 X10^3/uL; Basophil% 0.1 % (0-1); Hematocrit 33.4 % (40-54); Hemoglobin 10.8 g/dL (13.0-16.5); Lymphocyte % 7.5 % (19-41); Mean Corp Hgb Conc 32.3 g/dL (32-36); Mean Corpuscular Volume 98.8 fL (80-94); Mean Platelet Vol. 10.9 fl (6.2-12.0); Monocyte# 0.68 X10^3/uL; Monocyte% 5.7 % (0-10); NRBC Flagged by Analyzer 0 % (0-5); Neutrophil # 10.31 X10^3/uL (2.7-7.7); Platelet Count 100 K/mm3 (150-450); RBC Distribution Width CV 17.2 % (11.6-14.6); RBC Distribution Width SD 62.4 fl (35.1-43.9); Red Blood Count 3.38 M/mm3 (4.6-6.2)
[2023-08-03 07:08] LABS: Bedside Glucose 193 mg/dL (74-106)
[2023-08-03 08:28] LABS: Anion Gap 6 (5-15); BUN 75 mg/dL (7-18); BUN/Creat Ratio 31.1 RATIO (10-20); Calcium,Total 8.3 mg/dL (8.5-10.1); Chloride 107 mmol/L (98-107); Creatinine, Serum 2.41 mg/dL (0.70-1.30); EST Glomerular Filtration Rate 29 mL/min (>60); Est Glom Filt Rate - Afr Amer 35 mL/min (>60); Estimated Creatinine Clearance 32.81 ml/min; Glucose 212 mg/dL (74-106); Sodium Level 138 mmol/L (136-145)
[2023-08-03] MEDS: oxyCODONE 5 MG Tablet 10 MG PO ×3 (09:04→19:31)
[2023-08-03 09:12] VITALS: BP 140/63; PULSE 63; RESP 17; TEMP 36.6; O2SAT 99
[2023-08-03] MEDS: Amiodarone 200 MG Tablet PO (09:19)
[2023-08-03] MEDS: Smz/Tmp Ds Tablet 0.5 TABLET PO (09:19)
[2023-08-03] MEDS: Hydrocortisone 10 MG Tablet 20 MG PO (09:20)
[2023-08-03] MEDS: Citalopram 10 MG Tablet PO (09:21)
[2023-08-03] MEDS: Bumetanide 1 MG/4 ML Vial IV ×2 (09:21→17:54)
[2023-08-03] MEDS: Allopurinol 300 MG Tablet PO (09:21)
[2023-08-03 09:23] VITALS: PULSE 63
[2023-08-03] MEDS: Metoprolol Tartrate 25 MG Tablet PO ×2 (09:23→21:51)
[2023-08-03] MEDS: Famotidine 20 MG Tablet PO (09:23)
[2023-08-03] MEDS: APIXABAN 5 MG TABLET PO ×2 (09:23→21:51)
[2023-08-03] MEDS: Tacrolimus 0.5 MG Capsule PO ×2 (09:24→21:51)
[2023-08-03] MEDS: Ursodiol 250 MG Tablet PO ×2 (09:24→21:51)
[2023-08-03] MEDS: rifAXIMin 550 MG Tablet PO ×2 (09:24→21:51)
[2023-08-03] MEDS: proCHLORPERazine 10 MG/2 ML Vial 5 MG IM (09:45)
[2023-08-03] MEDS: 0.9% Saline Lock 10 ML Syringe IV ×2 (09:46→17:55)
--- NOTE | 2023-08-03 11:05 | PN_ITS ---
Subjective Subjective Patient seen and examined. He had no active complaints. He had an uneventful night. Pain is fairly well controlled. Review of systems is otherwise negative. He is awaiting placement. Objective Data Objective Data Vital Signs: Vital Signs Temp Pulse Resp BP Pulse Ox O2 Del Method O2 Flow Rate 97.9 F 63 17 140/63 H 99 Room Air 2 08/03/23 09:12 08/03/23 09:23 08/03/23 09:12 08/03/23 09:12 08/03/23 09:12 08/03/23 09:12 07/30/23 17:00 Oxygen Flow Rate (L/min) 2 Oxygen Delivery Method Room Air Weight: 382 lb 4.505 oz Body Mass Index (BMI) 54.8 Intake & Output: Intake and Output for Last 24 Hours 08/01/23 08/02/23 08/03/23 23:59 23:59 23:59 Intake Total 560 / 2160 3000 / 3120 360 / 360 Output Total 1650 / 2350 1700 / 2100 700 / 700 Balance -1090 / -190 1300 / 1020 -340 / -340 Lab / Micro Data 08/03/23 05:45 08/03/23 05:45 Labs: Laboratory Results - last 24 hr 08/02/23 11:18: POC Glucose 257 H 08/02/23 16:42: POC Glucose 328 H 08/02/23 21:39: POC Glucose 219 H 08/03/23 05:45: WBC 12.0 H, RBC 3.38 L, Hgb 10.8 L, Hct 33.4 L, MCV 98.8 H, MCH 32.0, MCHC 32.3, RDW Std Deviation 62.4 H, RDW Coeff of Maciel 17.2 H, Plt Count 100 L, MPV 10.9, Immature Gran % (Auto) 0.700, Neut % (Auto) 86.0 H, Lymph % (Auto) 7.5 L, Whiteside % (Auto) 5.7, Eos % (Auto) 0.0, Baso % (Auto) 0.1, Absolute Neuts (auto) 10.3 H, Absolute Lymphs (auto) 0.90, Nucleated RBC % 0, Sodium 138, Potassium 4.0, Chloride 107, Carbon Dioxide 25.0, Anion Gap 6, BUN 75 H, Creatinine 2.41 H, Estim Creat Clear Calc 32.81, Est GFR (MDRD) Af Amer 35 L, Est GFR (MDRD) Non-Af 29 L, BUN/Creatinine Ratio 31.1 H, Glucose 212 H, Calcium 8.3 L 08/03/23 06:18: POC Glucose 193 H Micro: Microbiology 07/25/23 14:28 Nasal Secretion SARS-CoV-2 & FLU Antigen (Rapid) - Final Physical Exam Const alert, oriented x3 and no apparent distress Constitutional Narrative: super morbid obesity General Appearance: cooperative and well developed HEENT normocephalic, head/scalp atraumatic, moist oral mucous membranes and oropharynx normal Eyes PERRL and EOMs intact bilaterally Neck no lymphadenopathy and supple Lymph Lymphatic: no lymphadenopathy noted and no lymphedema noted Resp normal respiratory effort, normal air movement and clear to auscultation bilaterally Cardio regular rate, regular rhythm, S1 normal heart sound, S2 normal heart sound and no murmurs GI normal to inspection, nondistended, normoactive bowel sounds, soft to palpation and non-tender Extremity Extremity Narrative: LLE wrapped in bandage. Skin General Skin Exam: no breakdown Neuro CN's II-XII intact bilaterally, no focal motor deficits, no sensory deficits noted and deep tendon reflexes 2+ bilaterally Motor Exam: strength 5/5 throughout Psych thought process normal and cooperative Appearance: appropriate Assessment & Plan Assessment/Plan (1) Trimalleolar fracture of left ankle: QUALIFIERS: Encounter type: initial encounter Fracture type: closed Qualified Code(s): S82.852A - Displaced trimalleolar fracture of left lower leg, initial encounter for closed fracture (2) Acute on chronic kidney failure: PLAN: Plan # Acute on chronic congestive HFpEF * has known EF of 65%. * on bumex * monitor intake and output. * Fluid restriction to 1500cc daily. * #Left ankle pain due to bimalleolar fracture * podiatry on board * s/p left ORIF for left trimalleolar fracture * today is POD 4 * On oxycodone 10mg q4hr prn for pain * cannot take tylenol due to his history of liver transplant. * #Hyperkalemia: * resolved. * nephrology on board * #CKD IV; nephrology on board. management as per nephrology. #History of cirrhosis s/p liver transplant * on tacrolimus * on rifaximin on bactrim and lactulose * #Paroxysmal afib: on amiodarone and metoprolol. On eliquis. #Hypothyroidism: on levothyroxine. #Depression; on citalopram #Super morbid obesity: BMI is 54. Complicates acute care, expected recovery and prognosis. #History of adrenal insufficiency: on hydrocortisone #Left ear cancer: s/p resection. To keep vaseline on area and keep it bandaged. DVT prophylaxis; on eliquis. Disposition: awaiting placement Charges/Coding Visit Charges Inpatient E&M: 23128 Subs Hosp L2
[2023-08-03 12:17] LABS: Bedside Glucose 282 mg/dL (74-106)
[2023-08-03 14:36] VITALS: BP 125/59; PULSE 60; RESP 17; TEMP 36.6; O2SAT 100
[2023-08-03 17:13] LABS: Bedside Glucose 249 mg/dL (74-106)
[2023-08-03] MEDS: Hydrocortisone 10 MG Tablet PO (17:54)
[2023-08-03 21:50] VITALS: BP 133/67; PULSE 60; RESP 16; TEMP 36; O2SAT 99
[2023-08-03 21:51] VITALS: BP 133/67; PULSE 60
[2023-08-03 22:13] LABS: Bedside Glucose 174 mg/dL (74-106)
[2023-08-04 03:34] VITALS: BP 129/66; PULSE 56; RESP 18; TEMP 35.8; O2SAT 100
[2023-08-04 03:40] VITALS: BMI 54.8
[2023-08-04] MEDS: Lactulose 20 GM/30 ML UDC PO ×2 (06:21→20:50)
[2023-08-04] MEDS: Levothyroxine 25 MCG TABLET PO (06:21)
[2023-08-04] MEDS: Insulin Lispro 100 UNIT/ML INSULN.PEN SC ×4 (06:21→20:50)
[2023-08-04 06:53] LABS: Bedside Glucose 217 mg/dL (74-106)
[2023-08-04 07:16] LABS: Absolute Lymphocyte Count 0.84 X10^3/uL (0.83-4.51); Absolute Neutrophil Count 10.7 X10^3/uL (2.0-7.7); Basophil# 0.02 X10^3/uL; Basophil% 0.2 % (0-1); Eosinophil# 0.01 X10^3/uL; Eosinophils% 0.1 % (0-5); Hemoglobin 11.1 g/dL (13.0-16.5); Lymphocyte # 0.84 X10^3/ul (0.83-4.51); Lymphocyte % 6.8 % (19-41); Mean Corp Hgb Conc 31.7 g/dL (32-36); Mean Corpuscular Hgb 31.2 pg (27.0-32.0); Mean Corpuscular Volume 98.3 fL (80-94); Mean Platelet Vol. 11.5 fl (6.2-12.0); Monocyte# 0.69 X10^3/uL; Monocyte% 5.6 % (0-10); NRBC Flagged by Analyzer 0 % (0-5); Neutrophil # 10.73 X10^3/uL (2.7-7.7); Neutrophil % 86.4 % (47-70); Platelet Count 107 K/mm3 (150-450); RBC Distribution Width CV 17.3 % (11.6-14.6); RBC Distribution Width SD 62.3 fl (35.1-43.9); Red Blood Count 3.56 M/mm3 (4.6-6.2); White Blood Count 12.4 K/mm3 (4.4-11.0)
[2023-08-04 08:11] LABS: Anion Gap 5 (5-15); BUN 76 mg/dL (7-18); BUN/Creat Ratio 28.8 RATIO (10-20); Calcium,Total 8.1 mg/dL (8.5-10.1); Chloride 106 mmol/L (98-107); Creatinine, Serum 2.64 mg/dL (0.70-1.30); EST Glomerular Filtration Rate 26 mL/min (>60); Est Glom Filt Rate - Afr Amer 32 mL/min (>60); Estimated Creatinine Clearance 29.96 ml/min; Glucose 279 mg/dL (74-106); Sodium Level 138 mmol/L (136-145)
[2023-08-04 10:11] VITALS: BP 148/76; PULSE 61; RESP 18; TEMP 36.7; O2SAT 99
[2023-08-04 10:20] VITALS: BP 148/76; PULSE 61
[2023-08-04] MEDS: Allopurinol 300 MG Tablet PO (10:20)
[2023-08-04] MEDS: rifAXIMin 550 MG Tablet PO ×2 (10:20→20:54)
[2023-08-04] MEDS: Famotidine 20 MG Tablet PO (10:20)
[2023-08-04] MEDS: Metoprolol Tartrate 25 MG Tablet PO ×2 (10:20→20:54)
[2023-08-04] MEDS: Hydrocortisone 10 MG Tablet 20 MG PO (10:20)
[2023-08-04] MEDS: Amiodarone 200 MG Tablet PO (10:20)
[2023-08-04] MEDS: Ursodiol 250 MG Tablet PO ×2 (10:21→20:54)
[2023-08-04] MEDS: Bumetanide 1 MG/4 ML Vial IV ×2 (10:21→16:12)
[2023-08-04] MEDS: Smz/Tmp Ds Tablet 0.5 TABLET PO (10:21)
[2023-08-04] MEDS: Citalopram 10 MG Tablet PO (10:21)
[2023-08-04] MEDS: APIXABAN 5 MG TABLET PO ×2 (10:21→20:54)
[2023-08-04] MEDS: Tacrolimus 0.5 MG Capsule PO ×2 (10:21→20:54)
[2023-08-04] MEDS: oxyCODONE 5 MG Tablet 10 MG PO ×2 (10:25→16:17)
--- NOTE | 2023-08-04 10:42 | PN_ITS ---
Subjective Subjective Patient seen and examined. He had no active complaints and had an uneventful night. Review of systems is otherwise negative. He is awaiting placement. Objective Data Objective Data Vital Signs: Vital Signs Temp Pulse Resp BP Pulse Ox O2 Del Method O2 Flow Rate 98.1 F 61 18 148/76 H 99 Room Air 2 08/04/23 10:11 08/04/23 10:20 08/04/23 10:11 08/04/23 10:20 08/04/23 10:11 08/04/23 10:11 07/30/23 17:00 Oxygen Flow Rate (L/min) 2 Oxygen Delivery Method Room Air Weight: 381 lb 13.45 oz Body Mass Index (BMI) 54.8 Intake & Output: Intake and Output for Last 24 Hours 08/02/23 08/03/23 08/04/23 23:59 23:59 23:59 Intake Total 3000 / 3120 1560 / 1560 Output Total 1700 / 2100 1470 / 1470 500 / 500 Balance 1300 / 1020 90 / 90 -500 / -500 Lab / Micro Data 08/04/23 05:55 08/04/23 05:55 Labs: Laboratory Results - last 24 hr 08/03/23 11:53: POC Glucose 282 H 08/03/23 16:44: POC Glucose 249 H 08/03/23 21:49: POC Glucose 174 H 08/04/23 05:55: WBC 12.4 H, RBC 3.56 L, Hgb 11.1 L, Hct 35.0 L, MCV 98.3 H, MCH 31.2, MCHC 31.7 L, RDW Std Deviation 62.3 H, RDW Coeff of Maciel 17.3 H, Plt Count 107 L, MPV 11.5, Immature Gran % (Auto) 0.900, Neut % (Auto) 86.4 H, Lymph % (Auto) 6.8 L, [place]verse % (Auto) 5.6, Eos % (Auto) 0.1, Baso % (Auto) 0.2, Absolute Neuts (auto) 10.7 H, Absolute Lymphs (auto) 0.84, Nucleated RBC % 0, Sodium 138, Potassium 4.0, Chloride 106, Carbon Dioxide 27.0, Anion Gap 5, BUN 76 H, Creatinine 2.64 H, Estim Creat Clear Calc 29.96, Est GFR (MDRD) Af Amer 32 L, Est GFR (MDRD) Non-Af 26 L, BUN/Creatinine Ratio 28.8 H, Glucose 279 H, Calcium 8.1 L 08/04/23 06:21: POC Glucose 217 H Micro: Microbiology 07/25/23 14:28 Nasal Secretion SARS-CoV-2 & FLU Antigen (Rapid) - Final Physical Exam Const alert, oriented x3 and no apparent distress Constitutional Narrative: super morbid obesity General Appearance: cooperative and well developed HEENT normocephalic, head/scalp atraumatic, moist oral mucous membranes and oropharynx normal Eyes PERRL and EOMs intact bilaterally Neck no lymphadenopathy and supple Lymph Lymphatic: no lymphadenopathy noted and no lymphedema noted Resp normal respiratory effort, normal air movement and clear to auscultation bilaterally Cardio regular rate, regular rhythm, S1 normal heart sound, S2 normal heart sound and no murmurs GI normal to inspection, nondistended, normoactive bowel sounds, soft to palpation and non-tender Extremity Extremity Narrative: LLE wrapped in bandage. Skin General Skin Exam: no breakdown Neuro CN's II-XII intact bilaterally, no focal motor deficits, no sensory deficits noted and deep tendon reflexes 2+ bilaterally Motor Exam: strength 5/5 throughout Psych thought process normal and cooperative Psych Narrative: lethargic Appearance: appropriate Assessment & Plan Assessment/Plan (1) Trimalleolar fracture of left ankle: QUALIFIERS: Encounter type: initial encounter Fracture type: closed Qualified Code(s): S82.852A - Displaced trimalleolar fracture of left lower leg, initial encounter for closed fracture (2) Acute on chronic kidney failure: PLAN: Plan # Acute on chronic congestive HFpEF * has known EF of 65%. * on bumex * monitor intake and output. * Fluid restriction to 1500cc daily. * #Left ankle pain due to bimalleolar fracture * podiatry on board * s/p left ORIF for left trimalleolar fracture * today is POD 5 * On oxycodone 10mg q4hr prn for pain * cannot take tylenol due to his history of liver transplant. * #Hyperkalemia: * resolved. * nephrology on board * #CKD IV; nephrology on board. management as per nephrology. #History of cirrhosis s/p liver transplant * on tacrolimus * on rifaximin on bactrim and lactulose * #Paroxysmal afib: on amiodarone and metoprolol. On eliquis. #Hypothyroidism: on levothyroxine. #Depression; on citalopram #Super morbid obesity: BMI is 54. Complicates acute care, expected recovery and prognosis. #History of adrenal insufficiency: on hydrocortisone #Left ear cancer: s/p resection. To keep vaseline on area and keep it bandaged. DVT prophylaxis; on eliquis. Disposition: awaiting placement Charges/Coding Visit Charges Inpatient E&M: 93393 Subs Hosp L2
[2023-08-04 11:01] LABS: Bedside Glucose 238 mg/dL (74-106)
[2023-08-04 16:07] VITALS: BP 144/66; PULSE 59; RESP 16; TEMP 36.8; O2SAT 99
[2023-08-04] MEDS: Hydrocortisone 10 MG Tablet PO (16:12)
[2023-08-04 17:04] LABS: Bedside Glucose 266 mg/dL (74-106)
[2023-08-04 20:52] VITALS: BP 129/48; PULSE 61; RESP 18; TEMP 35.9; O2SAT 99
[2023-08-04 20:54] VITALS: BP 129/48; PULSE 61
[2023-08-04 22:03] LABS: Bedside Glucose 328 mg/dL (74-106)
[2023-08-05] MEDS: oxyCODONE 5 MG Tablet 10 MG PO ×3 (02:01→20:57)
[2023-08-05 03:01] VITALS: BP 122/49; PULSE 69; RESP 18; TEMP 36.2; O2SAT 99
[2023-08-05 06:00] VITALS: BMI 54.9
[2023-08-05] MEDS: Levothyroxine 25 MCG TABLET PO (06:42)
[2023-08-05] MEDS: Lactulose 20 GM/30 ML UDC PO ×3 (06:42→20:58)
[2023-08-05] MEDS: Insulin Lispro 100 UNIT/ML INSULN.PEN SC ×4 (06:43→21:02)
[2023-08-05 07:05] LABS: Bedside Glucose 269 mg/dL (74-106)
[2023-08-05 07:19] LABS: Absolute Neutrophil Count 11.8 X10^3/uL (2.0-7.7); Basophil# 0.02 X10^3/uL; Basophil% 0.1 % (0-1); Eosinophil# 0.03 X10^3/uL; Eosinophils% 0.2 % (0-5); Hematocrit 34.8 % (40-54); Hemoglobin 11.3 g/dL (13.0-16.5); Lymphocyte % 7.1 % (19-41); Mean Corp Hgb Conc 32.5 g/dL (32-36); Mean Corpuscular Hgb 31.3 pg (27.0-32.0); Mean Corpuscular Volume 96.4 fL (80-94); Mean Platelet Vol. 11.3 fl (6.2-12.0); Monocyte# 1.01 X10^3/uL; Monocyte% 7.2 % (0-10); NRBC Flagged by Analyzer 0 % (0-5); Neutrophil % 84.5 % (47-70); Platelet Count 107 K/mm3 (150-450); RBC Distribution Width CV 17.1 % (11.6-14.6); RBC Distribution Width SD 60.5 fl (35.1-43.9); Red Blood Count 3.61 M/mm3 (4.6-6.2)
[2023-08-05 08:00] LABS: Anion Gap 7 (5-15); BUN 74 mg/dL (7-18); BUN/Creat Ratio 27.7 RATIO (10-20); Chloride 105 mmol/L (98-107); Creatinine, Serum 2.67 mg/dL (0.70-1.30); EST Glomerular Filtration Rate 26 mL/min (>60); Est Glom Filt Rate - Afr Amer 31 mL/min (>60); Estimated Creatinine Clearance 29.62 ml/min; Glucose 291 mg/dL (74-106); Sodium Level 138 mmol/L (136-145)
[2023-08-05 08:46] VITALS: BP 136/65; PULSE 65; RESP 18; TEMP 36.7; O2SAT 99
[2023-08-05] MEDS: Tacrolimus 0.5 MG Capsule PO ×2 (08:52→20:59)
[2023-08-05] MEDS: Smz/Tmp Ds Tablet 0.5 TABLET PO (08:52)
[2023-08-05] MEDS: Amiodarone 200 MG Tablet PO (08:53)
[2023-08-05] MEDS: Ursodiol 250 MG Tablet PO ×2 (08:53→21:00)
[2023-08-05] MEDS: Allopurinol 300 MG Tablet PO (08:53)
[2023-08-05 08:54] VITALS: PULSE 65
[2023-08-05] MEDS: Citalopram 10 MG Tablet PO (08:54)
[2023-08-05] MEDS: rifAXIMin 550 MG Tablet PO ×2 (08:54→20:59)
[2023-08-05] MEDS: Famotidine 20 MG Tablet PO (08:54)
[2023-08-05] MEDS: Hydrocortisone 10 MG Tablet 20 MG PO (08:54)
[2023-08-05] MEDS: Metoprolol Tartrate 25 MG Tablet PO ×2 (08:54→21:20)
[2023-08-05] MEDS: APIXABAN 5 MG TABLET PO ×2 (08:55→20:59)
[2023-08-05] MEDS: Bumetanide 1 MG/4 ML Vial IV (08:55)
[2023-08-05] MEDS: 0.9% Saline Lock 10 ML Syringe IV (08:55)
[2023-08-05 10:27] LABS: Bacteria 0 SEEN /hpf (None Seen); Mucous, Urine 0 SEEN /hpf (<or=2+); Red Blood Cells-Urine 0 SEEN /hpf (0-5); Squamous Epithelial Cells - UA 0 SEEN /hpf (0-5); White Blood Cells 0 SEEN /hpf (0-5)
[2023-08-05 10:42] LABS: Color, Urine Yellow (Yellow); Glucose, Dipstick Normal (Normal); Ketone-Dipstick Negative (Negative); Leukocyte Esterase-Dipstick Negative /ul (Negative); Nitrite-Dipstick Negative (Negative); Occult Blood-Urine Negative /ul (Negative); Protein-Dipstick 15 mg/dl (Negative); Specific Gravity, Urine 1.015 (1.002-1.030); Urine Bilirubin Dipstick Negative (Negative); Urine Clarity Clear (Clear); Urine Urobilinogen Normal (Normal)
--- NOTE | 2023-08-05 10:53 | PCM.PROGNOTE ---
Subjective Subjective Patient seen and examined. He is complaining of some pain in his foot. He however has no other complaints. Review of labs otherwise negative. WBC noted to have trended up slightly and is up to 14. He denies any urinary symptoms. Review of systems is othewise negative. He is awaiting placement. Objective Data Objective Data Vital Signs: Vital Signs Temp Pulse Resp BP Pulse Ox O2 Del Method O2 Flow Rate 98.0 F 65 18 136/65 H 99 Room Air 2 08/05/23 08:46 08/05/23 08:54 08/05/23 08:46 08/05/23 08:46 08/05/23 08:46 08/05/23 09:02 07/30/23 17:00 Oxygen Flow Rate (L/min) 2 Oxygen Delivery Method Room Air Weight: 382 lb 11.559 oz Body Mass Index (BMI) 54.9 Intake & Output: Intake and Output for Last 24 Hours 08/03/23 08/04/23 08/05/23 23:59 23:59 23:59 Intake Total 1560 / 1560 1250 / 1450 500 / 500 Output Total 1470 / 1470 1550 / 1900 700 / 700 Balance 90 / 90 -300 / -450 -200 / -200 Lab / Micro Data 08/05/23 06:30 08/05/23 06:30 Labs: Laboratory Results - last 24 hr 08/04/23 10:38: POC Glucose 238 H 08/04/23 16:11: POC Glucose 266 H 08/04/23 20:48: POC Glucose 328 H 08/05/23 06:30: WBC 14.0 H, RBC 3.61 L, Hgb 11.3 L, Hct 34.8 L, MCV 96.4 H, MCH 31.3, MCHC 32.5, RDW Std Deviation 60.5 H, RDW Coeff of Maciel 17.1 H, Plt Count 107 L, MPV 11.3, Immature Gran % (Auto) 0.900, Neut % (Auto) 84.5 H, Lymph % (Auto) 7.1 L, Dare % (Auto) 7.2, Eos % (Auto) 0.2, Baso % (Auto) 0.1, Absolute Neuts (auto) 11.8 H, Absolute Lymphs (auto) 1.00, Nucleated RBC % 0, Sodium 138, Potassium 4.0, Chloride 105, Carbon Dioxide 26.0, Anion Gap 7, BUN 74 H, Creatinine 2.67 H, Estim Creat Clear Calc 29.62, Est GFR (MDRD) Af Amer 31 L, Est GFR (MDRD) Non-Af 26 L, BUN/Creatinine Ratio 27.7 H, Glucose 291 H, Calcium 8.0 L 08/05/23 06:43: POC Glucose 269 H Micro: Microbiology 07/25/23 14:28 Nasal Secretion SARS-CoV-2 & FLU Antigen (Rapid) - Final Physical Exam Const alert, oriented x3 and no apparent distress Constitutional Narrative: super morbid obesity General Appearance: cooperative and well developed HEENT normocephalic, head/scalp atraumatic, moist oral mucous membranes and oropharynx normal Eyes PERRL and EOMs intact bilaterally Neck no lymphadenopathy and supple Lymph Lymphatic: no lymphadenopathy noted and no lymphedema noted Resp normal respiratory effort, normal air movement and clear to auscultation bilaterally Cardio regular rate, regular rhythm, S1 normal heart sound, S2 normal heart sound and no murmurs GI normal to inspection, nondistended, normoactive bowel sounds, soft to palpation and non-tender Extremity Extremity Narrative: LLE wrapped in bandage. Skin General Skin Exam: no breakdown Neuro CN's II-XII intact bilaterally, no focal motor deficits, no sensory deficits noted and deep tendon reflexes 2+ bilaterally Motor Exam: strength 5/5 throughout Psych thought process normal and cooperative Appearance: appropriate Assessment & Plan Assessment/Plan (1) Trimalleolar fracture of left ankle: QUALIFIERS: Encounter type: initial encounter Fracture type: closed Qualified Code(s): S82.852A - Displaced trimalleolar fracture of left lower leg, initial encounter for closed fracture (2) Acute on chronic kidney failure: PLAN: Plan # Acute on chronic congestive HFpEF has known EF of 65%. on bumex; dc IV bumex and switch to PO bumex monitor intake and output. Fluid restriction to 1500cc daily. #Left ankle pain due to bimalleolar fracture podiatry on board s/p left ORIF for left trimalleolar fracture today is POD 6 On oxycodone 10mg q4hr prn for pain cannot take tylenol due to his history of liver transplant. #Leucocytosis wbc is up to 14. Source is unclear. It is mainly neutrophil predominant will get urinalysis to evaluate for UTI #Thrombocytopenia platelets are 107. Will monitor. Baseline platelets are around 160. not receiving lovenox or heparin. LIver disease may also play a role will trend platelets #CKD IV; nephrology on board. management as per nephrology. #History of cirrhosis s/p liver transplant on tacrolimus on rifaximin on bactrim and lactulose #Paroxysmal afib: on amiodarone and metoprolol. On eliquis. #Hypothyroidism: on levothyroxine. #Depression; on citalopram #Super morbid obesity: BMI is 54. Complicates acute care, expected recovery and prognosis. #History of adrenal insufficiency: on hydrocortisone #Left ear cancer: s/p resection. To keep vaseline on area and keep it bandaged. DVT prophylaxis; on eliquis. Disposition: awaiting placement Charges/Coding Visit Charges Inpatient E&M: 97873 Subs Hosp L2
[2023-08-05 11:48] LABS: Bedside Glucose 269 mg/dL (74-106)
[2023-08-05] MEDS: proCHLORPERazine 10 MG/2 ML Vial 5 MG IM (14:56)
[2023-08-05 15:00] VITALS: BP 124/68; PULSE 66; RESP 18; TEMP 36.5; O2SAT 100
[2023-08-05 16:49] LABS: Bedside Glucose 304 mg/dL (74-106)
[2023-08-05] MEDS: Hydrocortisone 10 MG Tablet PO (17:24)
[2023-08-05 21:00] VITALS: BP 135/72; PULSE 62; RESP 16; TEMP 36.1; O2SAT 96
[2023-08-05 21:08] LABS: Bedside Glucose 282 mg/dL (74-106)
[2023-08-05 21:20] VITALS: PULSE 62
[2023-08-06 03:00] VITALS: BP 140/78; PULSE 65; RESP 18; TEMP 36.2; O2SAT 96
[2023-08-06] MEDS: Lactulose 20 GM/30 ML UDC PO (05:54)
[2023-08-06] MEDS: Levothyroxine 25 MCG TABLET PO (05:54)
[2023-08-06] MEDS: Insulin Lispro 100 UNIT/ML INSULN.PEN SC ×2 (05:56→11:31)
[2023-08-06 06:00] VITALS: BMI 55.1
[2023-08-06 06:15] LABS: Bedside Glucose 253 mg/dL (74-106)
[2023-08-06 08:13] LABS: Anion Gap 5 (5-15); BUN 77 mg/dL (7-18); BUN/Creat Ratio 26.6 RATIO (10-20); Calcium,Total 7.9 mg/dL (8.5-10.1); Chloride 105 mmol/L (98-107); Creatinine, Serum 2.89 mg/dL (0.70-1.30); EST Glomerular Filtration Rate 24 mL/min (>60); Est Glom Filt Rate - Afr Amer 29 mL/min (>60); Estimated Creatinine Clearance 27.36 ml/min; Glucose 251 mg/dL (74-106); Potassium 4.1 mmol/L (3.5-5.1); Sodium Level 135 mmol/L (136-145)
--- NOTE | 2023-08-06 08:36 | CASEMGMT ---
Patient was approved for TCU. SW will notify physician. Kaley SWEENEY
[2023-08-06 08:58] VITALS: BP 145/71; PULSE 62; RESP 17; TEMP 36.6; O2SAT 99
[2023-08-06] MEDS: APIXABAN 5 MG TABLET PO (09:01)
[2023-08-06] MEDS: Tacrolimus 0.5 MG Capsule PO (09:01)
[2023-08-06] MEDS: Famotidine 20 MG Tablet PO (09:01)
[2023-08-06] MEDS: Amiodarone 200 MG Tablet PO (09:01)
[2023-08-06] MEDS: Bumetanide 2 MG Tablet PO (09:01)
[2023-08-06 09:02] VITALS: PULSE 62
[2023-08-06] MEDS: Allopurinol 300 MG Tablet PO (09:02)
[2023-08-06] MEDS: Citalopram 10 MG Tablet PO (09:02)
[2023-08-06] MEDS: Hydrocortisone 10 MG Tablet 20 MG PO (09:02)
[2023-08-06] MEDS: Metoprolol Tartrate 25 MG Tablet PO (09:02)
[2023-08-06] MEDS: rifAXIMin 550 MG Tablet PO (09:02)
[2023-08-06] MEDS: Ursodiol 250 MG Tablet PO (09:03)
[2023-08-06] MEDS: Smz/Tmp Ds Tablet 0.5 TABLET PO (09:04)
--- NOTE | 2023-08-06 11:03 | TREXTCAR_ITS ---
Diet Diet Order/Speech Therapy: 07/30/23 20:00 Diet: Cardiac - Heart Healthy Dietary Modifications:: Consistent Carbohydrate Is pt able to select menu?: Yes Diet Comments: pt would like extra pepper packets with all of his meals. please Routine Orders/Code Status Enema Type: Fleetz Enema Frequency: Daily PRN Suppository Type: Dulcolax 10mg Suppository Frequency: Daily PRN O2 Frequency: PRN Keep PO Greater than or Equal to (%): 90 Wound(s) L Ear: Wound Type: Surgical Incision rfa: Wound Type: skin ca rle: Wound Type: redness w/blisters left ankle: Wound Type: Surgical Incision Therapies Weight Bearing: Weight bearing as tolerated Physical Therapy: Eval and Treat Occupational Therapy: Eval and Treat Problem/Diagnosis (1) Trimalleolar fracture of left ankle: Status: Acute Code(s): S82.852A - Displaced trimalleolar fracture of left lower leg, initial encounter for closed fracture (2) Acute on chronic kidney failure: Status: Chronic Code(s): N17.9 - Acute kidney failure, unspecified; N18.9 - Chronic kidney disease, unspecified Plan # Acute on chronic congestive HFpEF * has known EF of 65%. * on bumex; dc IV bumex and switch to PO bumex * monitor intake and output. * Fluid restriction to 1500cc daily. * #Left ankle pain due to bimalleolar fracture * podiatry on board * s/p left ORIF for left trimalleolar fracture * today is POD 6 * On oxycodone 10mg q4hr prn for pain * cannot take tylenol due to his history of liver transplant. * #Leucocytosis * wbc is up to 14. Source is unclear. It is mainly neutrophil predominant * will get urinalysis to evaluate for UTI * #Thrombocytopenia * platelets are 107. Will monitor. Baseline platelets are around 160. * not receiving lovenox or heparin. LIver disease may also play a role * will trend platelets * #CKD IV; nephrology on board. management as per nephrology. #History of cirrhosis s/p liver transplant * on tacrolimus * on rifaximin on bactrim and lactulose * #Paroxysmal afib: on amiodarone and metoprolol. On eliquis. #Hypothyroidism: on levothyroxine. #Depression; on citalopram #Super morbid obesity: BMI is 54. Complicates acute care, expected recovery and prognosis. #History of adrenal insufficiency: on hydrocortisone #Left ear cancer: s/p resection. To keep vaseline on area and keep it bandaged. DVT prophylaxis; on eliquis. Disposition: awaiting placement Allergies/Procedures Done in Hospital Allergies morphine Allergy (Verified 07/25/23 13:44) Hives pravastatin [From Pravachol] Allergy (Verified 07/25/23 13:44) Hives Wososec-LVX-ClG Reductase Inhibitor [Mrfrkfb-Bmi-Ddf Reductase Inhibitor] Allergy (Verified 07/25/23 13:44) Hives vancomycin Allergy (Verified 07/25/23 13:44) NEEDS FOLLOW-UP zolpidem tartrate [From Ambien] Allergy (Verified 07/25/23 13:44) Hives from the controlled or slow-release ambien. does not have any reactions to regular ambien. everolimus Adverse Reaction (Verified 07/25/23 13:44) Swelling gabapentin Adverse Reaction (Verified 07/25/23 13:44) NEEDS FOLLOW-UP Procedures: None Type of Care/Length of Stay Estimated LOS: Convalescent Care Less Than 30 days Type of Care Needed: Skilled Rehab Potential: Fair Prognosis: Fair Additional Orders/Day of Discharge Day of Discharge: 08/06/23 Dietary and Speech Recommendations Dietitian Recommendations/Changes: Continue CCD/Cardiac diet to manage medical conditions. Continue fluid restriction per MD. Discharge Plan Admission Admit Date/Time: 07/25/23 16:59 Primary Reason for Your Visit: left ankle fracture, acute on chronic HFpEF Attending Provider: Breanne Barkley Primary Care Provider: Lance Bose [employer] Providers: Verenice Monae; Sadie Saalzar; Andrew Cronin; Larry Zamorano Instructions Patient Instructions: Ankle Fracture ORIF Discharge Orders/Prescriptions Prescriptions: Continued nitroglycerin 0.4 mg tablet, sublingual 0.4 mg sublingual Q5M PRN (Reason: CHEST PAIN ) Qty: 25 1RF Rx Instructions: do not exceed 3 doses per episode lactulose 20 gram/30 mL solution 20 g PO TID Qty: 1200 11RF Xifaxan 550 mg tablet 550 mg PO BID Qty: 60 11RF bumetanide 2 mg tablet 2 mg PO DAILY hydrocortisone 10 mg tablet 10 mg PO .COMPLEX Rx Instructions: 10 mg orally; 2 tabs daily in the morning, then 1 tab daily in the evening. metoprolol tartrate 25 mg tablet 12.5 mg PO BID Patient Comments: TAKE 1 TABLET BY MOUTH TWICE DAILY Entresto 49-51 mg tablet 1 tab PO BID Eliquis 5 mg tablet 5 mg PO BID allopurinol 300 mg tablet 300 mg PO DAILY tacrolimus 0.5 mg capsule 0.5 mg PO Q12H citalopram 10 mg tablet 10 mg PO DAILY amiodarone 200 mg tablet 200 mg PO DAILY ursodiol 300 mg capsule 300 mg PO BID famotidine 20 mg Tablet 20 mg PO Q12H oxycodone 10 mg tablet 10 mg PO TID PRN (Reason: BTP) Patient Comments: FAMILY [place] PER DR SOLOMON PT MAY TAKE EVERY 6 HOURS levothyroxine 25 mcg Tablet 25 mcg PO DAILY sulfamethoxazole-trimethoprim 400-80 mg tablet 1 tab PO DAILY Patient Comments: TAKE 1 TABLET BY MOUTH DAILY prochlorperazine maleate 5 mg Tablet 5 mg PO Q6H PRN (Reason: NAUSEA/VOMITING) polysaccharide iron complex [Ferrex 150] 150 mg iron capsule 150 mg PO DAILY potassium chloride [Klor-Con M20] 20 mEq tablet,ER particles/crystals 20 meq PO DAILY Qty: 30 0RF Referrals / Follow Up: Larry Zamorano DPM [Med Staff - Active Staff] - Within 2 Weeks Lance Bose Chi, MD [Primary Care Provider] - Within 1 Week Disposition Disposition (needs filled in before D/C Order can be placed): Nursing Home Facility (1) Trimalleolar fracture of left ankle Qualifiers: Encounter type: initial encounter Fracture type: closed Qualified Code(s): S82.852A - Displaced trimalleolar fracture of left lower leg, initial encounter for closed fracture
--- NOTE | 2023-08-06 11:04 | DS.PCM_ITS ---
Providers Date of Admission: 07/25/23 Date of Discharge: 08/06/23 Primary Care Physician: Dr. Lance Bose MD Consultations 07/25/23 18:12 Consult: Nephrology Routine Consulting Provider: Verenice Monae Reason for Consult: CKD IV, here w/ AECHF, will be diuresed, also ankle fx likely needs surgery EMERGENT Consult: No MD Notified: Yes Date Notified: 07/26/23 Time Notified: 06:46 Method of Notification: Text Consult: Podiatry Routine Consulting Provider: Larry Zamorano Reason for Consult: bimalleolar fx left EMERGENT Consult: No MD Notified: Yes Date Notified: 07/25/23 Time Notified: 17:09 Method of Notification: ED Physician Initiated 07/27/23 10:23 Consult: Nephrology Routine Consulting Provider: Verenice Monae Reason for Consult: CKD EMERGENT Consult: No MD Notified: Yes Date Notified: 07/27/23 Time Notified: 10:23 Method of Notification: Text Reason For Visit: AECHF AND ANKLE FX Diagnosis Discharge Diagnosis (1) Trimalleolar fracture of left ankle: Status: Acute Code(s): S82.852A - Displaced trimalleolar fracture of left lower leg, initial encounter for closed fracture Qualifiers: Encounter type: initial encounter Fracture type: closed Qualified Code(s): S82.852A - Displaced trimalleolar fracture of left lower leg, initial encounter for closed fracture (2) Acute on chronic kidney failure: Status: Chronic Code(s): N17.9 - Acute kidney failure, unspecified; N18.9 - Chronic kidney disease, unspecified Plan # Acute on chronic congestive HFpEF * has known EF of 65%. * on bumex; dc IV bumex and switch to PO bumex * monitor intake and output. * Fluid restriction to 1500cc daily. * #Left ankle pain due to bimalleolar fracture * podiatry on board * s/p left ORIF for left trimalleolar fracture * today is POD 6 * On oxycodone 10mg q4hr prn for pain * cannot take tylenol due to his history of liver transplant. * #Leucocytosis * wbc is up to 14. Source is unclear. It is mainly neutrophil predominant * will get urinalysis to evaluate for UTI * #Thrombocytopenia * platelets are 107. Will monitor. Baseline platelets are around 160. * not receiving lovenox or heparin. LIver disease may also play a role * will trend platelets * #CKD IV; nephrology on board. management as per nephrology. #History of cirrhosis s/p liver transplant * on tacrolimus * on rifaximin on bactrim and lactulose * #Paroxysmal afib: on amiodarone and metoprolol. On eliquis. #Hypothyroidism: on levothyroxine. #Depression; on citalopram #Super morbid obesity: BMI is 54. Complicates acute care, expected recovery and prognosis. #History of adrenal insufficiency: on hydrocortisone #Left ear cancer: s/p resection. To keep vaseline on area and keep it bandaged. DVT prophylaxis; on eliquis. Disposition: awaiting placement Medications at Discharge Home Medications apixaban 5 mg tablet (Eliquis) 5 mg PO BID BLOOD THINNER 07/20/22 allopurinol 300 mg tablet 300 mg PO DAILY GOUT 11/04/22 tacrolimus 0.5 mg capsule, immediate-release 0.5 mg PO Q12H LIVER TRANSPLANT 11/06/22 nitroglycerin 0.4 mg sublingual tablet 0.4 mg sublingual Q5M PRN CHEST PAIN #25 tabs 11/27/22 citalopram 10 mg tablet 10 mg PO DAILY MOOD 02/08/23 amiodarone 200 mg tablet 200 mg PO DAILY BLOOD PRESSURE 02/14/23 ursodiol 300 mg capsule 300 mg PO BID GALLSTONES 02/14/23 prochlorperazine maleate 5 mg tablet 5 mg PO Q6H PRN NAUSEA/VOMITING 03/10/23 famotidine 20 mg tablet 20 mg PO Q12H ACID REFLUX 04/24/23 levothyroxine 25 mcg tablet 25 mcg PO DAILY THYROID 04/24/23 oxycodone 10 mg tablet 10 mg PO TID PRN BTP 04/24/23 polysaccharide iron complex 150 mg iron capsule (Ferrex) 150 mg PO DAILY supplment 05/14/23 potassium chloride 20 mEq tablet,extended release(part/cryst) (Klor-Con M) 20 meq PO DAILY help with potassium #30 tabs 05/18/23 bumetanide 2 mg tablet 2 mg PO DAILY water pill 05/31/23 hydrocortisone 10 mg tablet 10 mg PO .COMPLEX help with legs 06/05/23 metoprolol tartrate 25 mg tablet 12.5 mg PO BID heart 06/05/23 sacubitril 49 mg-valsartan 51 mg tablet (Entresto) 1 tab PO BID repair heart muscle 06/05/23 lactulose 20 gram/30 mL oral solution 20 g (30 mL) PO TID liver disease #1,200 mL 06/07/23 rifaximin 550 mg tablet (Xifaxan) 550 mg PO BID help with liver #60 tabs 06/07/23 sulfamethoxazole 400 mg-trimethoprim 80 mg tablet 1 tab PO DAILY liver transplant 07/25/23 Hospital Course Operations - (ORIF of left trimalleolar fracture) Procedures None Summary of Care Provided Minutes Spent on Discharge: 50 Hospital Course: Patient is a 62-year-old male with an extensive past medical history as outlined was admitted through the ED on 07/25/2023 with a complaint of pain in his left ankle after mechanical fall. He also felt he had been putting on weight after decreasing his Bumex dose 2 weeks prior to admission. Chest x-ray showed evidence of vascular congestion and x-ray of the left ankle showed a bimalleolar fracture. He had gained about 26 pounds over the past 2 weeks prior to admission since his Bumex was decreased from 4 mg to 2 mg. This was due to a worsening of his kidney function. He was admitted and managed for debility due to left ankle bimalleolar fracture and acute on chronic heart failure preserved ejection fraction. He was diuresed with IV Bumex. Podiatry was consulted. He had 2D echo which showed EF of 65% with mild concentric left ventricular hypertrophy and normal diastolic for age with mildly dilated aortic root. Nephrology was also consulted in light of impaired kidney function. He had open reduction and internal fixation of the left trimalleolar ankle fracture on 07/30/2023. His shortness of breath also resolved and he felt bet ter. He remained stable throughout the rest of the hospital stay and [facility]. 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 Patient was already on Eliquis for A-fib and so was placed on this for DVT prophylaxis as well. Patient was seen and examined prior to discharge. He felt well and had no complaints. He had an uneventful night. Review of systems otherwise negative. Labs and vitals reviewed. Home medication reviewed and reconciled. Physical Exam Const alert, oriented x3 and no apparent distress Constitutional Narrative: super morbid obesity General Appearance: cooperative, comfortable and well developed HEENT normocephalic, head/scalp atraumatic, hearing grossly normal bilaterally, moist oral mucous membranes and oropharynx normal Mouth: oral and palatal mucosa normal Eyes PERRL and EOMs intact bilaterally Neck no lymphadenopathy and supple Lymph Lymphatic: no lymphadenopathy noted and no lymphedema noted Resp normal respiratory effort, normal air movement and clear to auscultation bilaterally Cardio regular rate, regular rhythm, S1 normal heart sound, S2 normal heart sound and no murmurs GI normal to inspection, nondistended, normoactive bowel sounds, soft to palpation and non-tender Extremity Extremity Narrative: LLE wrapped in bandage. Skin no rashes or lesions noted and no wounds General Skin Exam: no breakdown Neuro oriented x3, CN's II-XII intact bilaterally, moves all extremities, no focal motor deficits, no sensory deficits noted and deep tendon reflexes 2+ bilaterally Motor Exam: strength 5/5 throughout Psych thought process normal and cooperative Psych Narrative: lethargic Appearance: appropriate Weight / BMI Weight Weight: 384 lb 4.251 oz Body Mass Index (BMI) 55.1 ABG / Lab / Microbiology Data 08/05/23 06:30 08/06/23 07:00 Laboratory: Laboratory Results - last 24 hr 08/05/23 11:20: POC Glucose 269 H 08/05/23 16:28: POC Glucose 304 H 08/05/23 20:49: POC Glucose 282 H 08/06/23 05:55: POC Glucose 253 H 08/06/23 07:00: WBC Cancelled, Corrected WBC Cancelled, RBC Cancelled, Hgb Cancelled, Hct Cancelled, MCV Cancelled, MCH Cancelled, MCHC Cancelled, RDW Std Deviation Cancelled, RDW Coeff of Maciel Cancelled, Plt Count Cancelled, MPV Cancelled, Immature Gran % (Auto) Cancelled, Neut % (Auto) Cancelled, Lymph % (Auto) Cancelled, Beauregard % (Auto) Cancelled, Eos % (Auto) Cancelled, Baso % (Auto) Cancelled, Absolute Neuts (auto) Cancelled, Absolute Lymphs (auto) Cancelled, Total Counted Cancelled, Neutrophils % (Manual) Cancelled, Band Neutrophils % Cancelled, Lymphocytes % (Manual) Cancelled, Monocytes % (Manual) Cancelled, Eosinophils % (Manual) Cancelled, Basophils % (Manual) Cancelled, Metamyelocytes % Cancelled, Myelocytes % Cancelled, Promyelocytes % Cancelled, Blast Cells % Cancelled, Plasma Cell % (Manual) Cancelled, Other Cells % Cancelled, Nucleated RBC % Cancelled, Nucleated RBCs/100 WBC Cancelled, Differential Comment Cancelled, Diff Path Review Cancelled, Hypersegmented Neuts Cancelled, Atypical Lymphocytes Cancelled, Reactive Lymphocytes Cancelled, Smudge Cells Cancelled, Toxic Granulation Cancelled, Toxic Vacuolation Cancelled, Dohle Bodies Cancelled, Kindra Rods Cancelled, Platelet Estimate Cancelled, Plt Morphology Comment Cancelled, RBC Morphology Cancelled 08/06/23 07:00: RBC Morphology Cancelled, Polychromasia Cancelled, Hypochromasia Cancelled, Poikilocytosis Cancelled, Basophilic Stippling Cancelled, Anisocytosis Cancelled, Microcytosis Cancelled, Macrocytosis Cancelled, Spherocytes Cancelled, Sickle Cells Cancelled, Target Cells Cancelled, Tear Drop Cells Cancelled, Ovalocytes Cancelled, Stomatocytes Cancelled, [place] Bodies Cancelled, Welling Cells Cancelled, Bite Cells Cancelled, Crenated Cell Cancelled, Acanthocytes (Spur) Cancelled, Rouleaux Cancelled, Schistocytes Cancelled, Sodium 135 L, Potassium 4.1, Chloride 105, Carbon Dioxide 25.0, Anion Gap 5, BUN 77 H, Creatinine 2.89 H, Estim Creat Clear Calc 27.36, Est GFR (MDRD) Af Amer 29 L, Est GFR (MDRD) Non-Af 24 L, BUN/Creatinine Ratio 26.6 H, Glucose 251 H, Calcium 7.9 L Microbiology: Microbiology 07/25/23 14:28 Nasal Secretion SARS-CoV-2 & FLU Antigen (Rapid) - Final D/C Instructions Discharge Diet: Low fat / Low cholesterol Discharge Activity: Return to Normal Activity Weight Bearing Status: Weight bearing as tolerated Call your doctor if you observe: Fever of 101 or Higher, Shortness of breath, Dizziness, Swelling in the ankles and Chest pain Meaningful Use Info Meaningful Use Diagnoses (Choose all that apply): CHF CHF ROSANNA/ARB ordered at discharge?: No Reason ROSANNA/ARB not ordered?: Worsening renal disease Documented LVEF (%): 65 Discharge Plan Admission Admit Date/Time: 07/25/23 16:59 Primary Reason for Your Visit: left ankle fracture, acute on chronic HFpEF Attending Provider: Breanne Barkley Primary Care Provider: Lance Bose Chi Consulting Providers: Verenice Monae; Sadie Salazar; Andrew Cronin; Larry Zamorano Instructions Patient Instructions: Ankle Fracture ORIF Discharge Orders/Prescriptions Prescriptions: Continued nitroglycerin 0.4 mg tablet, sublingual 0.4 mg sublingual Q5M PRN (Reason: CHEST PAIN ) Qty: 25 1RF Rx Instructions: do not exceed 3 doses per episode lactulose 20 gram/30 mL solution 20 g PO TID Qty: 1200 11RF Xifaxan 550 mg tablet 550 mg PO BID Qty: 60 11RF bumetanide 2 mg tablet 2 mg PO DAILY hydrocortisone 10 mg tablet 10 mg PO .COMPLEX Rx Instructions: 10 mg orally; 2 tabs daily in the morning, then 1 tab daily in the evening. metoprolol tartrate 25 mg tablet 12.5 mg PO BID Patient Comments: TAKE 1 TABLET BY MOUTH TWICE DAILY Entresto 49-51 mg tablet 1 tab PO BID Eliquis 5 mg tablet 5 mg PO BID allopurinol 300 mg tablet 300 mg PO DAILY tacrolimus 0.5 mg capsule 0.5 mg PO Q12H citalopram 10 mg tablet 10 mg PO DAILY amiodarone 200 mg tablet 200 mg PO DAILY ursodiol 300 mg capsule 300 mg PO BID famotidine 20 mg Tablet 20 mg PO Q12H oxycodone 10 mg tablet 10 mg PO TID PRN (Reason: BTP) Patient Comments: FAMILY STATES PER DR SOLOMON PT MAY TAKE EVERY 6 HOURS levothyroxine 25 mcg Tablet 25 mcg PO DAILY sulfamethoxazole-trimethoprim 400-80 mg tablet 1 tab PO DAILY Patient Comments: TAKE 1 TABLET BY MOUTH DAILY prochlorperazine maleate 5 mg Tablet 5 mg PO Q6H PRN (Reason: NAUSEA/VOMITING) polysaccharide iron complex [Ferrex 150] 150 mg iron capsule 150 mg PO DAILY potassium chloride [Klor-Con M20] 20 mEq tablet,ER particles/crystals 20 meq PO DAILY Qty: 30 0RF Hold Instructions: MD Ordered Referrals / Follow Up: Larry Zamorano DPM [Med Staff - Active Staff] - Within 2 Weeks Lance Bose Chi, MD [Primary Care Provider] - Within 1 Week Disposition Disposition (needs filled in before D/C Order can be placed): [facility] Charges/Coding Visit Charges Inpatient E&M: 06317 Disch Hosp >30min
[2023-08-06 11:51] LABS: Bedside Glucose 295 mg/dL (74-106)
--- NOTE | 2023-08-06 12:00 | CASEMGMT ---
SW notified physician, RN, and patient that patient was approved for TCU. Orders copied and originals placed in patient's packet. Plan: d/c to [facility] TCU under skilled level of care. Kaley SWEENEY
[2023-08-06 12:18] VITALS: BP 105/89; PULSE 70; RESP 16; TEMP 36.8; O2SAT 99
--- NOTE | 2023-08-06 12:19 | PHA.DC_ITS ---
Pharmacy [facility] Reconciliation Pharmacy Service has performed discharge medication reconciliation for this patient. The patient's discharge medication list was reviewed for discrepancies and discrepancies were resolved. Medications at Discharge Home Medications apixaban 5 mg tablet (Eliquis) 5 mg PO BID BLOOD THINNER 07/20/22 allopurinol 300 mg tablet 300 mg PO DAILY GOUT 11/04/22 tacrolimus 0.5 mg capsule, immediate-release 0.5 mg PO Q12H LIVER TRANSPLANT 11/06/22 nitroglycerin 0.4 mg sublingual tablet 0.4 mg sublingual Q5M PRN CHEST PAIN #25 tabs 11/27/22 citalopram 10 mg tablet 10 mg PO DAILY MOOD 02/08/23 amiodarone 200 mg tablet 200 mg PO DAILY BLOOD PRESSURE 02/14/23 ursodiol 300 mg capsule 300 mg PO BID GALLSTONES 02/14/23 prochlorperazine maleate 5 mg tablet 5 mg PO Q6H PRN NAUSEA/VOMITING 03/10/23 famotidine 20 mg tablet 20 mg PO Q12H ACID REFLUX 04/24/23 levothyroxine 25 mcg tablet 25 mcg PO DAILY THYROID 04/24/23 oxycodone 10 mg tablet 10 mg PO TID PRN BTP 04/24/23 polysaccharide iron complex 150 mg iron capsule (Ferrex) 150 mg PO DAILY supplment 05/14/23 potassium chloride 20 mEq tablet,extended release(part/cryst) (Klor-Con M) 20 meq PO DAILY help with potassium #30 tabs 05/18/23 bumetanide 2 mg tablet 2 mg PO DAILY water pill 05/31/23 hydrocortisone 10 mg tablet 10 mg PO .COMPLEX help with legs 06/05/23 metoprolol tartrate 25 mg tablet 12.5 mg PO BID heart 06/05/23 sacubitril 49 mg-valsartan 51 mg tablet (Entresto) 1 tab PO BID repair heart muscle 06/05/23 lactulose 20 gram/30 mL oral solution 20 g (30 mL) PO TID liver disease #1,200 mL 06/07/23 rifaximin 550 mg tablet (Xifaxan) 550 mg PO BID help with liver #60 tabs 06/07/23 sulfamethoxazole 400 mg-trimethoprim 80 mg tablet 1 tab PO DAILY liver transplant 07/25/23
== END 2023-08-06 12:32 | disposition skilled nursing facility (03) | DRG 492 ==
LOC: ED 16:50 → PCU 17:36
PROVIDERS: Internal Medicine; Internal Medicine Nephrology; Podiatrist; Admitting Provider Internal Medicine; Emergency Provider Emergency Medicine; PCP Family Medicine Geriatric Medicine; Visit Provider Student in an Organized Health Care Education/Training Program
DX: M84.671A Pathological fracture in other disease, right ankle, initial encounter for fracture (principal); I50.33 Acute on chronic diastolic (congestive) heart failure; E27.40 Unspecified adrenocortical insufficiency; I13.0 Hypertensive heart and chronic kidney disease with heart failure and stage 1 through stage 4 chronic kidney disease, or unspecified chronic kidney disease; Z68.43 Body mass index [BMI] 50.0-59.9, adult; N18.4 Chronic kidney disease, stage 4 (severe); I48.20 Chronic atrial fibrillation, unspecified; N17.9 Acute kidney failure, unspecified; Z94.4 Liver transplant status; K76.82 Hepatic encephalopathy; E66.01 Morbid (severe) obesity due to excess calories; F32.A Depression, unspecified; E03.9 Hypothyroidism, unspecified; W19.XXXA Unspecified fall, initial encounter; I25.10 Atherosclerotic heart disease of native coronary artery without angina pectoris; K21.9 Gastro-esophageal reflux disease without esophagitis; E87.5 Hyperkalemia; M10.9 Gout, unspecified; M25.372 Other instability, left ankle; M85.871 Other specified disorders of bone density and structure, right ankle and foot; R53.81 Other malaise; Z11.52 Encounter for screening for COVID-19; Z79.01 Long term (current) use of anticoagulants; Z79.890 Hormone replacement therapy; Z79.899 Other long term (current) drug therapy; Z87.891 Personal history of nicotine dependence
CPT/HCPCS: 36415; 71045; 73610; 73700; 76000; 80048; 80069; 80076; 81001; 82140; 82570; 82962; 83036; 83735; 83880; 84300; 84484; 85025; 85610; 85730; 87428; 93005; 93306; 94668; 97110; 97162; 97166; 97530; 97535; 97802; 99285; C1713; J7120; Q9957; A4216; C8929; J1940; J2405

== ENCOUNTER 2023-08-06 12:47 | Inpatient (IN) | payer MEDICARE, SELFPAY ==
[2023-08-06 13:07] VITALS: BP 143/77; PULSE 64; RESP 16; TEMP 35.8; O2SAT 98; BMI 53.6
[2023-08-06 13:22] VITALS: BMI 53.8
--- NOTE | 2023-08-06 14:46 | NURSING ---
Supplement not ordered, d/t pt on fluid restriction. pt non-compliant with diet and not following diet restrictions.
[2023-08-06] MEDS: Lactulose 20 GM/30 ML UDC PO ×2 (15:03→22:24)
[2023-08-06] MEDS: Hydrocortisone 10 MG Tablet PO (17:32)
--- NOTE | 2023-08-06 19:10 | PCM.HP.STD ---
HPI - General General Date of Admission: 08/06/23 Date of Service: 08/06/23 Chief Complaint: Here for rehabilitation. HPI Narrative 07/25/2023 ESTEFANIA MILLER, is a 62 Male who presents to [facility] ED with fall, shortness of breath. Fall, left ankle pain. Acute on chronic HFpEF, left ankle fracture. 07/25/2023 Admit to Hospital. IV Lasix, Echo for acute on chronic HFpEF. Consult podiatry for left ankle fracture. Consut nephrology for CKD stage 4. 07/25/2023 Echo Mild concentric LVH. LVEF 65%. 07/26/2023 IV Lasix for acute on chronic HFpEF. Pain control, Podiatry for left ankle fracture. PT/OT for debility. 07/27/2023 Creatinine elevated, Lasix changed to Bumex. 07/28/2023 Left ankle pain, plan ORIF 07/29/2023. PT/OT for discharge planning. 07/29/2023 Kayexalate given for K 5.9. Bumex, 1500mL fluid restriction for HFpEF. ORIF held secondary to hyperkalemia. 07/30/2023 K improved to 5.0. 07/30/2023 Dr. Zamorano performed ORIF left trimalleolar ankle fracture. 07/31/2023 Left ankle pain. Increase oxycodone to 10mg q4h prn. 08/01/2023 Weak, lethargic. Bumex, I's + O's, fluid restriction for acute on chronic HFpEF. s/p ORIF left trimalleolar ankle fracture. 08/02/2023 Left leg pain uncontrolled. 08/03/2023 Left leg pain, fair control. [facility]. 08/04/2023 Stable, await placement. 08/05/2023 Stable. 08/06/2023 Admit to TCU with debility, here for rehabilitation, strengthening, prior to discharge home with . [facility] Medical History (Updated 08/06/23 @ 19:[address] Lance Bose MD) (HFpEF) heart failure with preserved ejection fraction Acidosis, lactic Acute hypotension Adrenal insufficiency Adult failure to thrive Anasarca Anemia of chronic disease Anxiety Ascites Atherosclerotic heart disease of [place] coronary artery without angina pectoris Atrial fibrillation Atrial flutter with rapid ventricular response (02/02/21) BMI 50.0-59.9, adult CAD (coronary artery disease) Cellulitis Chest pain Chronic anticoagulation Chronic diastolic congestive heart failure Chronic kidney disease, stage 3b CKD (chronic kidney disease), stage IV Closed left humeral fracture Coronary artery disease Debility Elevated troponin Gout History of non-ST elevation myocardial infarction (NSTEMI) (12/29/20) Hypertension Insomnia Iron deficiency anemia Kidney disease Lactic acidosis Lumbar radiculopathy Malaise and fatigue Morbid obesity Multiple falls FELIPE (nonalcoholic steatohepatitis) Nonsustained paroxysmal ventricular tachycardia (12/2020) Osteoarthritis of ankle and foot PAF (paroxysmal atrial fibrillation) Periprosthetic fracture around internal prosthetic joint Right hip pain Seborrhea of face SOB (shortness of breath) Stage 3b chronic kidney disease (CKD) Unable to ambulate Venous insufficiency Vertigo, central Weakness Home Medications apixaban 5 mg tablet (Eliquis) 5 mg PO BID BLOOD THINNER 07/20/22 [History Last Taken 08/06/23] allopurinol 300 mg tablet 300 mg PO DAILY GOUT 11/04/22 [History Last Taken 08/06/23] tacrolimus 0.5 mg capsule, immediate-release 0.5 mg PO Q12H LIVER TRANSPLANT 11/06/22 [History Last Taken 08/06/23] nitroglycerin 0.4 mg sublingual tablet 0.4 mg sublingual Q5M PRN CHEST PAIN #25 tabs 11/27/22 [Rx Last Taken Unknown] citalopram 10 mg tablet 10 mg PO DAILY MOOD 02/08/23 [History Last Taken 08/06/23] amiodarone 200 mg tablet 200 mg PO DAILY BLOOD PRESSURE 02/14/23 [History Last Taken 08/06/23] ursodiol 300 mg capsule 300 mg PO BID GALLSTONES 02/14/23 [History Last Taken 08/06/23] prochlorperazine maleate 5 mg tablet 5 mg PO Q6H PRN NAUSEA/VOMITING 03/10/23 [History Last Taken 08/06/23] famotidine 20 mg tablet 20 mg PO Q12H ACID REFLUX 04/24/23 [History Last Taken 08/06/23] levothyroxine 25 mcg tablet 25 mcg PO DAILY THYROID 04/24/23 [History Last Taken 08/06/23] oxycodone 10 mg tablet 10 mg PO TID PRN BTP 04/24/23 [History Last Taken 08/06/23] polysaccharide iron complex 150 mg iron capsule (Ferrex) 150 mg PO DAILY supplment 05/14/23 [History Last Taken 08/06/23] potassium chloride 20 mEq tablet,extended release(part/cryst) (Klor-Con M) 20 meq PO DAILY help with potassium #30 tabs 05/18/23 [Rx Last Taken Unknown] bumetanide 2 mg tablet 2 mg PO DAILY water pill 05/31/23 [History Last Taken 08/06/23] hydrocortisone 10 mg tablet 10 mg PO .COMPLEX help with legs 06/05/23 [History Last Taken 08/06/23] metoprolol tartrate 25 mg tablet 12.5 mg PO BID heart 06/05/23 [History Last Taken 08/06/23] sacubitril 49 mg-valsartan 51 mg tablet (Entresto) 1 tab PO BID repair heart muscle 06/05/23 [History Last Taken 08/06/23] lactulose 20 gram/30 mL oral solution 20 g (30 mL) PO TID liver disease #1,200 mL 06/07/23 [Rx Last Taken 08/06/23] rifaximin 550 mg tablet (Xifaxan) 550 mg PO BID help with liver #60 tabs 06/07/23 [Rx Last Taken 08/06/23] sulfamethoxazole 400 mg-trimethoprim 80 mg tablet 1 tab PO DAILY liver transplant 07/25/23 [History Last Taken 08/06/23] Allergy/AdvReac Type Severity Reaction Status Date / Time morphine Allergy Hives Verified 07/25/23 13:44 pravastatin [From Pravachol] Allergy Hives Verified 07/25/23 13:44 [id number]-NBU-CcB Reductase Allergy Hives Verified 07/25/23 13:44 Inhibitor [Xqtnnkh-Ixl-Rgh Reductase Inhibitor] vancomycin Allergy NEEDS Verified 07/25/23 13:44 FOLLOW-UP zolpidem tartrate Allergy Hives Verified 07/25/23 13:44 [From Ambien] everolimus AdvReac Swelling Verified 07/25/23 13:44 gabapentin AdvReac NEEDS Verified 07/25/23 13:44 FOLLOW-UP Family History Mother Heart disease Father Heart disease Surgical History (Updated 08/06/23 @ 19:[address] Lance Bose MD) H/O shoulder surgery History of cardioversion (02/02/21) History of cataract extraction with lens replacement (~11/22/22) History of hip surgery History of liver transplant Liver transplant recipient S/P PTCA (percutaneous transluminal coronary angioplasty) Status post liver transplant (07/2017) Social History household members: spouse Smoking Status: Never smoker alcohol intake: former substance use type: does not use caffeine: No ROS Constitutional Constitutional: Denies chills, fever(s) or weight gain ENT HEENT: Denies headache(s), nasal congestion or nasal discharge Cardiovascular Cardiovascular: Denies chest pain or palpitations Respiratory/Chest Respiratory/Chest: Denies cough, excessive phlegm production or shortness of breath with exertion Gastrointestinal Gastrointestinal: Denies abdominal pain, nausea or vomiting Genitourinary Genitourinary: Denies dysuria Musculoskeletal Musculoskeletal: Denies joint pain or joint swelling Integumentary Integumentary: Denies rash or wounds Neurologic Neurologic: Denies focal weakness, numbness or tingling Psychiatric Psychiatric: Denies anxiety, auditory hallucinations, depression, homicidal ideation or suicidal ideation Vital Signs Vital Signs Vital Signs: 08/06/23 13:07 08/06/23 13:07 Temperature 96.5 F L Temperature Source Temporal Pulse Rate 64 Pulse Rhythm Regular Pulse Strength Normal (2+) Respiratory Rate 16 Respiratory Effort Normal Non-Labored Respiratory Depth Normal Respiratory Pattern Normal Blood Pressure 143/77 H Blood Pressure Mean 99 Blood Pressure Source Monitor Blood Pressure Position Semi-Fowlers Blood Pressure Location Left Forearm Pulse Ox 98 Oxygen Delivery Method Room Air Room Air Weight Weight: 174.497 kg Body Mass Index (BMI) 53.8 Physical Exam Const alert General Appearance: cooperative HEENT normocephalic Eyes PERRL and EOMs intact bilaterally Neck supple, no JVD and no carotid bruits Resp normal respiratory effort, normal air movement and clear to auscultation bilaterally Cardio regular rate and regular rhythm GI normal to inspection, nondistended, normoactive bowel sounds, non-tender and non-distended Extremity normal capillary refill Extremity Narrative: Left lower extremity splint. General Extremity: Negative for edema Skin no rashes or lesions noted General Skin Exam: no breakdown Psych affect normal Appearance: appropriate Assessment & Plan Assessment/Plan (1) Debility: (2) Trimalleolar fracture of left ankle: QUALIFIERS: Encounter type: initial encounter Fracture type: closed Qualified Code(s): S82.852A - Displaced trimalleolar fracture of left lower leg, initial encounter for closed fracture (3) Acute on chronic kidney failure: (4) CKD (chronic kidney disease), stage IV: (5) Acute on chronic heart failure with preserved ejection fraction (HFpEF): (6) BMI 50.0-59.9, adult: (7) Atrial fibrillation: QUALIFIERS: Atrial fibrillation type: unspecified chronic Qualified Code(s): I48.20 - Chronic atrial fibrillation, unspecified (8) Gout: (9) History of liver transplant: (10) Coronary artery disease: QUALIFIERS: Coronary Disease-Associated Artery/Lesion type: beaver artery (11) Depression: (12) Choledocholithiasis: (13) GERD (gastroesophageal reflux disease): (14) Hypothyroidism: (15) Adrenal insufficiency: (16) Hepatic encephalopathy: PLAN: Plan 62 year old male with below past medical history hospitalized for left ankle fracture, underwent ORIF left trimalleolar fracture 07/30/[address] Zamorano, complicated by acute on chronic HFpEF, acute on chronic kidney failure, hyperkalemia, admitted to TCU with debility, here for rehabilitation, strengthening, prior to discharge home with . Debility - PT/OT. Pain - Oxycodone 10mg tid prn pain (6-10). Bowel - Lactulose 20gm tid. Adult immunization - Administer pneumonia vaccine, covid vaccine, flu vaccine as appropriate. DVT prophylaxis - on Eliquis. Left ankle fracture s/p ORIF - Consult Dr. Zamorano for expertise. Gout - Allopurinol 300mg daily Atrial fibrillation - Metoprolol 12.5mg bid, Amiodarone 200mg daily, Eliquis 5mg bid. Chronic HFpEF - Metoprolol 12.5mg bid, Entresto 49/51mg bid, Bumex 2mg daily. Coronary artery disease - Metoprolol 12.5mg bid, NTG 0.4mg q5m prn. Depression - Citalopram 10mg daily, stable chronic mcc use, GDR not recommended. GERD - Famotidine 20mg daily. Adrenal insufficiency - Cortef 20mg am, 10mg pm. Iron deficiency anemia - Ferrex 150mg daily. Hx liver transplant - Lactulose 20gm tid, Xifaxan 550mg bid, Bactrim DS 1/2 tablet daily, Tacrolimus 0.5mg q12. Hypothyroidism - Levothyroxine 25mcg daily. Hypokalemia - KCL 20meq daily. Nausea - Compazine 5mg q6h prn. Choledocholithiasis - Ursodiol 250mg bid.
[2023-08-06] MEDS: oxyCODONE 5 MG Tablet 10 MG PO (20:50)
[2023-08-06] MEDS: rifAXIMin 550 MG Tablet PO (20:51)
[2023-08-06] MEDS: APIXABAN 5 MG TABLET PO (20:51)
[2023-08-06] MEDS: Tacrolimus 0.5 MG Capsule PO (20:52)
[2023-08-06] MEDS: Ursodiol 250 MG Tablet PO (20:53)
[2023-08-06 22:23] VITALS: BP 136/76; PULSE 68
[2023-08-06] MEDS: Metoprolol Tartrate 25 MG Tablet 12.5 MG PO (22:23)
[2023-08-06] MEDS: SACUBITRIL/VALSARTAN 49-51 MG TABLET 1 EACH PO (22:24)
[2023-08-06] MEDS: 0.9% Saline Lock 10 ML Syringe IV (22:25)
[2023-08-07] MEDS: proCHLORPERazine 5 MG Tablet PO ×3 (02:55→16:09)
[2023-08-07] MEDS: oxyCODONE 5 MG Tablet 10 MG PO ×2 (04:12→21:27)
[2023-08-07] MEDS: Lactulose 20 GM/30 ML UDC PO ×3 (05:15→21:17)
[2023-08-07] MEDS: Levothyroxine 25 MCG TABLET PO (05:15)
[2023-08-07 06:06] LABS: Absolute Lymphocyte Count 1.14 X10^3/uL (0.83-4.51); Absolute Neutrophil Count 9.1 X10^3/uL (2.0-7.7); Basophil# 0.01 X10^3/uL; Basophil% 0.1 % (0-1); Eosinophil# 0.06 X10^3/uL; Eosinophils% 0.5 % (0-5); Hematocrit 33.1 % (40-54); Hemoglobin 10.6 g/dL (13.0-16.5); Lymphocyte # 1.14 X10^3/ul (0.83-4.51); Lymphocyte % 10.1 % (19-41); Mean Corpuscular Hgb 30.9 pg (27.0-32.0); Mean Corpuscular Volume 96.5 fL (80-94); Mean Platelet Vol. 10.8 fl (6.2-12.0); Monocyte# 0.81 X10^3/uL; Monocyte% 7.1 % (0-10); NRBC Flagged by Analyzer 0 % (0-5); Neutrophil # 9.14 X10^3/uL (2.7-7.7); Neutrophil % 80.7 % (47-70); Platelet Count 121 K/mm3 (150-450); RBC Distribution Width CV 17.6 % (11.6-14.6); RBC Distribution Width SD 60.9 fl (35.1-43.9); Red Blood Count 3.43 M/mm3 (4.6-6.2); White Blood Count 11.3 K/mm3 (4.4-11.0)
[2023-08-07 06:30] LABS: Anion Gap 5 (5-15); BUN 76 mg/dL (7-18); BUN/Creat Ratio 26.5 RATIO (10-20); Calcium,Total 7.6 mg/dL (8.5-10.1); Chloride 103 mmol/L (98-107); Creatinine, Serum 2.87 mg/dL (0.70-1.30); EST Glomerular Filtration Rate 24 mL/min (>60); Est Glom Filt Rate - Afr Amer 29 mL/min (>60); Estimated Creatinine Clearance 28.42 ml/min; Glucose 280 mg/dL (74-106); Potassium 3.8 mmol/L (3.5-5.1); Sodium Level 135 mmol/L (136-145)
[2023-08-07] MEDS: Smz/Tmp Ds Tablet 0.5 TABLET PO (08:09)
[2023-08-07] MEDS: Amiodarone 200 MG Tablet PO (08:09)
[2023-08-07] MEDS: Allopurinol 300 MG Tablet PO (08:10)
[2023-08-07] MEDS: Potassium Chloride Oral Tablet 20 MEQ PO (08:10)
[2023-08-07] MEDS: Hydrocortisone 10 MG Tablet 20 MG PO (08:10)
[2023-08-07] MEDS: Citalopram 10 MG Tablet PO (09:45)
[2023-08-07] MEDS: Bumetanide 2 MG Tablet PO (09:45)
[2023-08-07] MEDS: SACUBITRIL/VALSARTAN 49-51 MG TABLET 1 EACH PO ×2 (09:45→21:19)
[2023-08-07] MEDS: Ursodiol 250 MG Tablet PO ×2 (09:45→21:19)
[2023-08-07] MEDS: Tacrolimus 0.5 MG Capsule PO ×2 (09:45→21:18)
[2023-08-07] MEDS: rifAXIMin 550 MG Tablet PO ×2 (09:46→21:20)
[2023-08-07 10:00] VITALS: RESP 18
[2023-08-07 10:02] VITALS: BP 120/49; PULSE 66
[2023-08-07] MEDS: Metoprolol Tartrate 25 MG Tablet 12.5 MG PO ×2 (10:02→21:20)
[2023-08-07] MEDS: Iron Polysaccharide Complex 150 MG CAPSULE PO (10:02)
[2023-08-07] MEDS: APIXABAN 5 MG TABLET PO ×2 (10:03→21:17)
[2023-08-07] MEDS: Tuberculin,Purif.prot.deriv. 50 TU/ML Vial 0.1 ML ID (10:03)
[2023-08-07] MEDS: Famotidine 20 MG Tablet PO (10:03)
--- NOTE | 2023-08-07 12:45 | PCM.CONS.GEN ---
Assessment & Plan Assessment/Plan (1) Bimalleolar avulsion fracture of left ankle: PLAN: Exam performed Left AO splint removed incision sites examined, you intact, incision intact redressed with betadine, adaptic, 4x4s, kerlix AO splint applied to left lower extremity continue non-weightbearing left lower extremity patient agreeable to bariatric bed will re-evaluate patient and repeat x-rays in 2 weeks HPI Consult Data Date of Consult: 08/07/23 HPI Narrative HPI Narrative: ESTEFANIA MILLER, is a 62 M who presents 1 week post op. pain controlled. denies constitutionals. Denies chest pain/calf pain or shortness of breath. No other complaints. [facility] Medical History (HFpEF) heart failure with preserved ejection fraction Acidosis, lactic Acute hypotension Adrenal insufficiency Adult failure to thrive Anasarca Anemia of chronic disease Anxiety Ascites Atherosclerotic heart disease of [place] coronary artery without angina pectoris Atrial fibrillation Atrial flutter with rapid ventricular response (02/02/21) BMI 50.0-59.9, adult CAD (coronary artery disease) Cellulitis Chest pain Chronic anticoagulation Chronic diastolic congestive heart failure Chronic kidney disease, stage 3b CKD (chronic kidney disease), stage IV Closed left humeral fracture Coronary artery disease Debility Elevated troponin Gout History of non-ST elevation myocardial infarction (NSTEMI) (12/29/20) Hypertension Insomnia Iron deficiency anemia Kidney disease Lactic acidosis Lumbar radiculopathy Malaise and fatigue Morbid obesity Multiple falls FELIPE (nonalcoholic steatohepatitis) Nonsustained paroxysmal ventricular tachycardia (12/2020) Osteoarthritis of ankle and foot PAF (paroxysmal atrial fibrillation) Periprosthetic fracture around internal prosthetic joint Right hip pain Seborrhea of face SOB (shortness of breath) Stage 3b chronic kidney disease (CKD) Unable to ambulate Venous insufficiency Vertigo, central Weakness Home Medications apixaban 5 mg tablet (Eliquis) 5 mg PO BID BLOOD THINNER 07/20/22 [History Last Taken 08/06/23] allopurinol 300 mg tablet 300 mg PO DAILY GOUT 11/04/22 [History Last Taken 08/06/23] tacrolimus 0.5 mg capsule, immediate-release 0.5 mg PO Q12H LIVER TRANSPLANT 11/06/22 [History Last Taken 08/06/23] nitroglycerin 0.4 mg sublingual tablet 0.4 mg sublingual Q5M PRN CHEST PAIN #25 tabs 11/27/22 [Rx Last Taken Unknown] citalopram 10 mg tablet 10 mg PO DAILY MOOD 02/08/23 [History Last Taken 08/06/23] amiodarone 200 mg tablet 200 mg PO DAILY BLOOD PRESSURE 02/14/23 [History Last Taken 08/06/23] ursodiol 300 mg capsule 300 mg PO BID GALLSTONES 02/14/23 [History Last Taken 08/06/23] prochlorperazine maleate 5 mg tablet 5 mg PO Q6H PRN NAUSEA/VOMITING 03/10/23 [History Last Taken 08/06/23] famotidine 20 mg tablet 20 mg PO Q12H ACID REFLUX 04/24/23 [History Last Taken 08/06/23] levothyroxine 25 mcg tablet 25 mcg PO DAILY THYROID 04/24/23 [History Last Taken 08/06/23] oxycodone 10 mg tablet 10 mg PO TID PRN BTP 04/24/23 [History Last Taken 08/06/23] polysaccharide iron complex 150 mg iron capsule (Ferrex) 150 mg PO DAILY supplment 05/14/23 [History Last Taken 08/06/23] potassium chloride 20 mEq tablet,extended release(part/cryst) (Klor-Con M) 20 meq PO DAILY help with potassium #30 tabs 05/18/23 [Rx Last Taken Unknown] bumetanide 2 mg tablet 2 mg PO DAILY water pill 05/31/23 [History Last Taken 08/06/23] hydrocortisone 10 mg tablet 10 mg PO .COMPLEX help with legs 06/05/23 [History Last Taken 08/06/23] metoprolol tartrate 25 mg tablet 12.5 mg PO BID heart 06/05/23 [History Last Taken 08/06/23] sacubitril 49 mg-valsartan 51 mg tablet (Entresto) 1 tab PO BID repair heart muscle 06/05/23 [History Last Taken 08/06/23] lactulose 20 gram/30 mL oral solution 20 g (30 mL) PO TID liver disease #1,200 mL 06/07/23 [Rx Last Taken 08/06/23] rifaximin 550 mg tablet (Xifaxan) 550 mg PO BID help with liver #60 tabs 06/07/23 [Rx Last Taken 08/06/23] sulfamethoxazole 400 mg-trimethoprim 80 mg tablet 1 tab PO DAILY liver transplant 07/25/23 [History Last Taken 08/06/23] Allergy/AdvReac Type Severity Reaction Status Date / Time morphine Allergy Hives Verified 07/25/23 13:44 pravastatin [From Pravachol] Allergy Hives Verified 07/25/23 13:44 [id number] Reductase Allergy Hives Verified 07/25/23 13:44 Inhibitor [Dryfwqf-Cpw-Mxj Reductase Inhibitor] vancomycin Allergy NEEDS Verified 07/25/23 13:44 FOLLOW-UP zolpidem tartrate Allergy Hives Verified 07/25/23 13:44 [From Ambien] everolimus AdvReac Swelling Verified 07/25/23 13:44 gabapentin AdvReac NEEDS Verified 07/25/23 13:44 FOLLOW-UP Family History Mother Heart disease Father Heart disease Surgical History H/O shoulder surgery History of cardioversion (02/02/21) History of cataract extraction with lens replacement (~11/22/22) History of hip surgery History of liver transplant Liver transplant recipient S/P PTCA (percutaneous transluminal coronary angioplasty) Status post liver transplant (07/2017) Social History household members: spouse Smoking Status: Never smoker alcohol intake: former substance use type: does not use caffeine: No ROS Constitutional Constitutional: Denies frequent falls, headache(s) or increased appetite Eyes Eyes: Denies change in vision, decreased night vision or diplopia ENT HEENT: Denies ear discharge, ear pain or epistaxis Cardiovascular Cardiovascular: Reports claudication and edema; Denies chest pain at rest or chest pain with activity Respiratory/Chest Respiratory/Chest: Denies change in phlegm color or chest congestion Gastrointestinal Gastrointestinal: Denies dry heaves, dyspepsia or dysphagia Genitourinary Genitourinary: Denies difficulty urinating, difficulty with ejaculations or dribbling Physical Exam Const alert and oriented x3 Constitutional Narrative: Dorsalis pedis/posterior tibial pulses 2/4 to left lower extremity. +1 pitting edema to marielos-incisional areas, left medial/lateral ankle. No signs of infection. No signs of DVT. Rectus alignment left ankle. Lab / Micro Data 08/07/23 05:52 08/07/23 05:52 Labs: Laboratory Results - last 24 hr 08/07/23 05:52: WBC 11.3 H, RBC 3.43 L, Hgb 10.6 L, Hct 33.1 L, MCV 96.5 H, MCH 30.9, MCHC 32.0, RDW Std Deviation 60.9 H, RDW Coeff of Maciel 17.6 H, Plt Count 121 L, MPV 10.8, Immature Gran % (Auto) 1.500 H, Neut % (Auto) 80.7 H, Lymph % (Auto) 10.1 L, [place] % (Auto) 7.1, Eos % (Auto) 0.5, Baso % (Auto) 0.1, Absolute Neuts (auto) 9.1 H, Absolute Lymphs (auto) 1.14, Nucleated RBC % 0, Sodium 135 L, Potassium 3.8, Chloride 103, Carbon Dioxide 27.0, Anion Gap 5, BUN 76 H, Creatinine 2.87 H, Estim Creat Clear Calc 28.42, Est GFR (MDRD) Af Amer 29 L, Est GFR (MDRD) Non-Af 24 L, BUN/Creatinine Ratio 26.5 H, Glucose 280 H, Calcium 7.6 L
--- NOTE | 2023-08-07 12:58 | NURSING ---
Physiologist Note; Activity Asset: Raven Raymundo has returned to TCU for continued therapy. He prefers to be called Casa. Casa is independent in his choice of daily activities and stated he is not interested in group activities. He has a smartphone and tablet to keep him busy when not visiting w/family or in therapy. Staff will offer him daily newspaper and respect his right to say no.
[2023-08-07 14:02] VITALS: BP 120/54; PULSE 63; RESP 14; TEMP 36.1; O2SAT 97
--- NOTE | 2023-08-07 16:06 | PHA.CONS_ITS ---
Documented by User: Katelynn Cruz 08/07/23 16:50 TCU RX Drug Regimen Review Subjective/Objective Subjective/Objective: Subjective: TCU Admission. 62 YOM presented to the ER with fall and shortness of breath. Hospitalized for left ankle fracture, underwent ORIF left trimalleolar fracture 07/30/[address] Zamorano, complicated by acute on chronic HFpEF, acute on chronic kidney failure, hyperkalemia. Admitted to TCU with debility for strengthening and rehabilitation. Objective: Allergies morphine Allergy (Verified 07/25/23 13:44) Hives pravastatin [From Pravachol] Allergy (Verified 07/25/23 13:44) Hives Tptezhl-AWE-VcN Reductase Inhibitor [Gzunuec-Isu-Tfq Reductase Inhibitor] Allergy (Verified 07/25/23 13:44) Hives vancomycin Allergy (Verified 07/25/23 13:44) NEEDS FOLLOW-UP zolpidem tartrate [From Ambien] Allergy (Verified 07/25/23 13:44) Hives from the controlled or slow-release ambien. does not have any reactions to regular ambien. everolimus Adverse Reaction (Verified 07/25/23 13:44) Swelling gabapentin Adverse Reaction (Verified 07/25/23 13:44) NEEDS FOLLOW-UP Current Medications Generic Name Dose Route Start Last Admin Trade Name Freq PRN Reason Stop Dose Admin Allopurinol 300 mg 08/07/23 08:00 08/07/23 08:10 Allopurinol 300 Mg Tablet PO 300 mg BREAKFAST ROSALIE Administration Amiodarone HCl 200 mg 08/07/23 08:00 08/07/23 08:09 Amiodarone 200 Mg Tablet PO 200 mg BREAKFAST ROSALIE Administration Apixaban 5 mg 08/06/23 22:00 08/07/23 10:03 Apixaban 5 Mg Tablet PO 5 mg BID ROSALIE Administration Bumetanide 2 mg 08/07/23 10:00 08/07/23 09:45 Bumetanide 2 Mg Tablet PO 2 mg DAILY ROSALIE Administration Protocol Citalopram Hydrobromide 10 mg 08/07/23 10:00 08/07/23 09:45 Citalopram 10 Mg Tablet PO 10 mg DAILY ROSALIE Administration Famotidine 20 mg 08/07/23 10:00 08/07/23 10:03 Famotidine 20 Mg Tablet PO 20 mg DAILY ROSALIE Administration Hydrocortisone 10 mg 08/06/23 17:00 08/06/23 17:32 Hydrocortisone 10 Mg Tablet PO 10 mg 1700 ROSALIE Administration Hydrocortisone 20 mg 08/07/23 08:00 08/07/23 08:10 Hydrocortisone 10 Mg Tablet PO 20 mg BREAKFAST ROSALIE Administration Lactulose 20 gm 08/06/23 14:00 08/07/23 13:20 Lactulose 20 Gm/30 Ml Udc PO 20 gm TID ROSALIE Administration Levothyroxine Sodium 25 mcg 08/07/23 06:00 08/07/23 05:15 Levothyroxine 25 Mcg Tablet PO 25 mcg DAILY@0600 [facility] Administration Metoprolol Tartrate 12.5 mg 08/06/23 22:00 08/07/23 10:02 Metoprolol Tartrate 25 Mg Tablet PO 12.5 mg BID [facility] Administration Protocol Nitroglycerin 0.4 mg 08/06/23 13:44 Nitroglycerin (Inpatient Use) 0.4 Mg Tab.Subl SL Q5M PRN CARDIAC/CHEST PAIN Oxycodone HCl 10 mg 08/06/23 13:49 08/07/23 04:12 Oxycodone 5 Mg Tablet PO 10 mg TID PRN PRN Administration Pain Score 6-10 Polysaccharide Iron Complex 150 mg 08/07/23 10:00 08/07/23 10:02 Iron Polysaccharide Complex 150 Mg Capsule PO 150 mg DAILY [facility] Administration Potassium Chloride 20 meq 08/07/23 08:00 08/07/23 08:10 Potassium Chloride Oral Tablet 20 Meq PO 20 meq DAILYCM ROSALIE Administration Prochlorperazine Maleate 5 mg 08/06/23 13:08 08/07/23 09:57 Prochlorperazine 5 Mg Tablet PO 5 mg Q6H PRN PRN Administration NAUSEA/VOMITING Rifaximin 550 mg 08/06/23 22:00 08/07/23 09:46 Rifaximin 550 Mg Tablet PO 550 mg BID ROSALIE Administration Sacubitril/Valsartan 1 each 08/06/23 22:00 08/07/23 09:45 Sacubitril/Valsartan 49-51 Mg Tablet PO 1 each BID ROSALIE Administration Sodium Chloride 10 - 40 ml 08/06/23 13:41 08/06/23 22:25 0.9% Saline Lock 10 Ml Syringe IV 10 ml UD PRN Administration SALINE FLUSH Tacrolimus 0.5 mg 08/06/23 22:00 08/07/23 09:45 Tacrolimus 0.5 Mg Capsule PO 0.5 mg Q12 ROSALIE Administration Trimethoprim/Sulfamethoxazole 0.5 tablet 08/07/23 08:00 08/07/23 08:09 Smz/Tmp Ds Tablet PO 0.5 tablet BREAKFAST ROSALIE Administration Tuberculin PPD 0.1 ml 08/14/23 10:00 Tuberculin,Purif.Prot.Deriv. 50 Tu/Ml Vial ID 08/14/23 10:01 X1 ONE Ursodiol 250 mg 08/06/23 22:00 08/07/23 09:45 Ursodiol 250 Mg Tablet PO 250 mg BID ROSALIE Administration Problem List (Updated 08/06/23 @ 19:[address] Lance Bose MD) Adrenal insufficiency (Acute) Hypothyroidism (Acute) GERD (gastroesophageal reflux disease) (Acute) Depression (Acute) History of liver transplant (Acute) Gout (Acute) BMI 50.0-59.9, adult (Acute) Acute on chronic heart failure with preserved ejection fraction (HFpEF) (Acute) Debility (Acute) Trimalleolar fracture of left ankle (Acute) Acute on chronic kidney failure (Chronic) Bimalleolar avulsion fracture of left ankle (Acute) CKD (chronic kidney disease), stage IV (Chronic) Atrial fibrillation (Acute) Coronary artery disease (Chronic) Vital Signs Temp Pulse Resp BP Pulse Ox O2 Del Method 97 F L 63 14 120/54 L 97 Room Air 08/07/23 14:02 08/07/23 14:02 08/07/23 14:02 08/07/23 14:02 08/07/23 14:02 08/07/23 14:02 Oxygen Delivery Method Room Air Weight: 174.497 kg Body Mass Index (BMI) 53.8 Sodium 135 mmol/L (136-145) L 08/07/23 05:52 Potassium 3.8 mmol/L (3.5-5.1) 08/07/23 05:52 Chloride 103 mmol/L (98-107) 08/07/23 05:52 Carbon Dioxide 27.0 mmol/L (21.0-32.0) 08/07/23 05:52 Anion Gap 5 (5-15) 08/07/23 05:52 BUN 76 mg/dL (7-18) H 08/07/23 05:52 Creatinine 2.87 mg/dL (0.70-1.30) H 08/07/23 05:52 Est GFR (MDRD) Af Amer 29 mL/min (>60) L 08/07/23 05:52 Est GFR (MDRD) Non-Af 24 mL/min (>60) L 08/07/23 05:52 BUN/Creatinine Ratio 26.5 RATIO (10-20) H 08/07/23 05:52 Glucose 280 mg/dL (74-106) H 08/07/23 05:52 Assessment/Plan: 1. Pain: oxycodone 10mg PO TID PRN pain 6-10. Resident has had 2 doses for pain of 7 in the ankle. Please continue to monitor for increased pain, PRN usage, constipation and respiratory depression. 2. Bowel: lactulose 20mg PO TID. Please continue to monitor for constipation. Last documented bowel movement from 08/02. 3. HFpEF/CAD/atrial fibrillation: metoprolol tartrate 12.5mg PO BID, amiodarone 200mg PO daily, apixaban 5mg PO BID, Entresto 49/51mg PO BID, bumetanide 2mg PO daily and nitroglycerin 0.4mg SL Q5M PRN chest pain. Resident has not had any PRN doses. Please continue to monitor HR (last 63), BP (last 120/54), potassium (last 3.8mmol/L), sodium (last 135mmol/L), S/S of bleeding, hemoglobin (last 10.6g/dL), renal function, swelling, chest pain and PRN usage. 4. History of liver transplant: lactulose 20gm PO TID, Xifaxan 550mg PO BID, Bactrim DS 0.5 tablet PO daily and tacrolimus 0.5mg PO Q12. Please continue to monitor for diarrhea, infection, fevers, potassium, tacrolimus levels (last WNL 05/14/23) and renal function. 5. Gout: allopurinol 300mg PO daily. Please continue to monitor for S/S of gout and renal function. 6. GERD: famotidine 20mg PO daily. Please continue to monitor for S/S of GERD and renal function. 7. Adrenal insufficiency: hydrocortisone 20mg PO breakfast and 10mg PO dinner. Please consider adding a Humalog sliding scale to help control glucose levels as the recent levels have been 295mg/dL, 253 mg/dL, 282 mg/dL and 304 mg/dL. Please continue to monitor for thin skin, fat redistribution and bruising. 8. Iron deficiency anemia: Ferrex 150mg PO daily. Please continue to monitor hemoglobin (last 10.6g/dL), dark stools and constipation. 9. Hypothyroidism: levothyroxine 25mcg PO daily. Please continue to monitor for S/S of hypothyroidism and TSH (last 04/25/23). 10. Hypokalemia: potassium chloride 20mEq PO daily. Please continue to monitor potassium levels. 11. Nausea: prochlorperazine 5mg PO Q6H PRN nausea/vomiting. Resident has used 2 PRN doses. Please continue to monitor for nausea, vomiting and PRN usage. 12. Choledocholithiasis: ursodiol 250mg PO BID. Please continue to monitor. Assessment/Plan for indications treated with psychotropic medications: 1. Depression: citalopram 10mg PO daily. Please see physician note regarding GDR. Please continue to monitor for S/S of suicidal ideation (black box warning). Medical chart and medication regimen reviewed. The following medication irregularities or issues were identified: *1. Hydrocortisone 20mg PO breakfast and 10mg PO dinner. Please consider adding a Humalog sliding scale to help control glucose levels as the recent levels have been 295mg/dL, 253 mg/dL, 282 mg/dL and 304 mg/dL. Thanks. Date Date of Note:: 08/07/23 Documented by User: Dr. Lance Bose MD 08/07/23 17:12 TCU RX Drug Regimen Review Provider Comments Provider responsibility Provider Comments to Recommendations by Pharmacy: Agree
[2023-08-07] MEDS: Hydrocortisone 10 MG Tablet PO (16:10)
--- NOTE | 2023-08-07 16:59 | CASEMGMT ---
SOCIAL WORK: Met with pt to complete initial assessment. Introduced self and role. Verified and updated contacts. Patient confirmed full code. Educated to Medicare benefit and copay coverage. Pt's goal is to return home with spouse. SW to follow up for DC planning. BRAN Graf
[2023-08-07 21:20] VITALS: BP 129/56; PULSE 66
[2023-08-08] MEDS: Lactulose 20 GM/30 ML UDC PO ×3 (04:51→21:52)
[2023-08-08] MEDS: Levothyroxine 25 MCG TABLET PO (04:53)
[2023-08-08 09:12] VITALS: BP 115/46; PULSE 77; RESP 17; TEMP 36.4; O2SAT 96
[2023-08-08] MEDS: Smz/Tmp Ds Tablet 0.5 TABLET PO (09:19)
[2023-08-08] MEDS: Amiodarone 200 MG Tablet PO (09:20)
[2023-08-08] MEDS: Potassium Chloride Oral Tablet 20 MEQ PO (09:21)
[2023-08-08] MEDS: Hydrocortisone 10 MG Tablet 20 MG PO (09:21)
[2023-08-08] MEDS: Allopurinol 300 MG Tablet PO (09:21)
[2023-08-08] MEDS: APIXABAN 5 MG TABLET PO ×2 (09:22→21:56)
[2023-08-08] MEDS: Bumetanide 2 MG Tablet PO (09:22)
[2023-08-08] MEDS: SACUBITRIL/VALSARTAN 49-51 MG TABLET 1 EACH PO (09:22)
[2023-08-08] MEDS: Citalopram 10 MG Tablet PO (09:22)
[2023-08-08] MEDS: Iron Polysaccharide Complex 150 MG CAPSULE PO (09:22)
[2023-08-08] MEDS: rifAXIMin 550 MG Tablet PO ×2 (09:23→21:52)
[2023-08-08] MEDS: Ursodiol 250 MG Tablet PO ×2 (09:23→21:52)
[2023-08-08] MEDS: Famotidine 20 MG Tablet PO (09:23)
[2023-08-08] MEDS: Tacrolimus 0.5 MG Capsule PO ×2 (09:24→21:55)
[2023-08-08 09:27] VITALS: PULSE 77
[2023-08-08] MEDS: Metoprolol Tartrate 25 MG Tablet 12.5 MG PO (09:27)
[2023-08-08] MEDS: oxyCODONE 5 MG Tablet 10 MG PO ×2 (12:27→21:57)
--- NOTE | 2023-08-08 15:09 | NURSING ---
All four side rails allowed to be up per Pt request.
[2023-08-08] MEDS: 0.9% Saline Lock 10 ML Syringe IV (15:27)
[2023-08-08 15:33] VITALS: BP 84/32; PULSE 67; RESP 20; TEMP 35.6; O2SAT 97
--- NOTE | 2023-08-08 16:07 | NURSING ---
Low BP, heart rate and other vitals stable. Patient drowsy but wakes easily and is appropriate. Updated Dr. Bose. Orders to give 500cc NS bolus then re-check BP. Dr. Bose will look at his meds to make adjustments.
[2023-08-08] MEDS: 0.9% Normal Saline (500mL Bag) 500 ML IV (16:56)
[2023-08-08] MEDS: Hydrocortisone 10 MG Tablet PO (18:27)
[2023-08-08 21:55] VITALS: BP 99/44; PULSE 66
[2023-08-08 22:07] VITALS: PULSE 66; RESP 16; O2SAT 97
[2023-08-09] MEDS: Levothyroxine 25 MCG TABLET PO (05:00)
[2023-08-09] MEDS: Lactulose 20 GM/30 ML UDC PO ×3 (05:00→20:47)
[2023-08-09 09:04] VITALS: BP 93/33
[2023-08-09] MEDS: Smz/Tmp Ds Tablet 0.5 TABLET PO (09:04)
[2023-08-09] MEDS: Hydrocortisone 10 MG Tablet PO ×2 (09:06→16:23)
[2023-08-09] MEDS: rifAXIMin 550 MG Tablet PO ×2 (09:06→20:47)
[2023-08-09] MEDS: Amiodarone 200 MG Tablet PO (09:06)
[2023-08-09] MEDS: Citalopram 10 MG Tablet PO (09:06)
[2023-08-09] MEDS: Iron Polysaccharide Complex 150 MG CAPSULE PO (09:06)
[2023-08-09] MEDS: Bumetanide 2 MG Tablet PO (09:06)
[2023-08-09] MEDS: APIXABAN 5 MG TABLET PO ×2 (09:07→20:47)
[2023-08-09] MEDS: Tacrolimus 0.5 MG Capsule PO ×2 (09:07→20:47)
[2023-08-09] MEDS: Allopurinol 300 MG Tablet PO (09:07)
[2023-08-09] MEDS: Ursodiol 250 MG Tablet PO ×2 (09:07→20:47)
[2023-08-09] MEDS: Potassium Chloride Oral Tablet 20 MEQ PO (09:07)
[2023-08-09] MEDS: Famotidine 20 MG Tablet PO (09:08)
[2023-08-09 15:50] VITALS: BP 118/44; PULSE 72; RESP 17; TEMP 35.9; O2SAT 96
[2023-08-09] MEDS: oxyCODONE 5 MG Tablet 10 MG PO (16:23)
[2023-08-09] MEDS: proCHLORPERazine 5 MG Tablet PO (17:40)
[2023-08-09] MEDS: 0.9% Saline Lock 10 ML Syringe IV (17:42)
[2023-08-10] MEDS: proCHLORPERazine 5 MG Tablet PO ×2 (01:02→14:23)
[2023-08-10] MEDS: Levothyroxine 25 MCG TABLET PO (06:54)
[2023-08-10] MEDS: Lactulose 20 GM/30 ML UDC PO ×2 (06:54→21:21)
[2023-08-10 09:38] VITALS: BP 127/40; PULSE 104; RESP 17; TEMP 36.5; O2SAT 94
[2023-08-10] MEDS: Amiodarone 200 MG Tablet PO (09:42)
[2023-08-10] MEDS: Allopurinol 300 MG Tablet PO (09:42)
[2023-08-10] MEDS: Smz/Tmp Ds Tablet 0.5 TABLET PO (09:42)
[2023-08-10] MEDS: Hydrocortisone 10 MG Tablet PO ×2 (09:42→17:58)
[2023-08-10] MEDS: Potassium Chloride Oral Tablet 20 MEQ PO (09:42)
[2023-08-10] MEDS: Citalopram 10 MG Tablet PO (09:43)
[2023-08-10] MEDS: Ursodiol 250 MG Tablet PO ×2 (09:43→21:21)
[2023-08-10] MEDS: Iron Polysaccharide Complex 150 MG CAPSULE PO (09:43)
[2023-08-10] MEDS: APIXABAN 5 MG TABLET PO ×2 (09:43→21:21)
[2023-08-10] MEDS: Famotidine 20 MG Tablet PO (09:43)
[2023-08-10] MEDS: Bumetanide 2 MG Tablet PO (09:43)
[2023-08-10] MEDS: rifAXIMin 550 MG Tablet PO ×2 (09:44→21:21)
[2023-08-10] MEDS: Tacrolimus 0.5 MG Capsule PO ×2 (09:45→21:21)
[2023-08-10 18:34] VITALS: BMI 54.6
--- NOTE | 2023-08-10 18:41 | NURSING ---
Patient noncompliant with fluid restriction. Patient requesting more fluids despite education. Call placed to Dr. Kwok. CHEN to discontinue 1500 FR.
[2023-08-10] MEDS: oxyCODONE 5 MG Tablet 10 MG PO (21:20)
[2023-08-10 21:30] VITALS: PULSE 82; RESP 18; O2SAT 98
--- NOTE | 2023-08-11 03:40 | NURSING ---
Patient continues to request fluids frequently despite education on recent fluid restriction discontinued due to patient non-compliance. Patient educated on risk for fluid retention due to cardiac function. Patient verbalized understanding. Daily weight order in place. Fluids provided per patient request. Denies further requests. Call light in reach.
[2023-08-11] MEDS: Lactulose 20 GM/30 ML UDC PO ×2 (05:50→21:02)
[2023-08-11] MEDS: Levothyroxine 25 MCG TABLET PO (05:50)
[2023-08-11 05:54] VITALS: BMI 55.0
[2023-08-11] MEDS: oxyCODONE 5 MG Tablet 10 MG PO ×2 (06:08→21:02)
[2023-08-11 09:16] VITALS: BP 144/46; PULSE 92; RESP 17; TEMP 36.6; O2SAT 97
[2023-08-11] MEDS: Amiodarone 200 MG Tablet PO (09:24)
[2023-08-11] MEDS: Smz/Tmp Ds Tablet 0.5 TABLET PO (09:24)
[2023-08-11] MEDS: Hydrocortisone 10 MG Tablet PO ×2 (09:25→17:06)
[2023-08-11] MEDS: Potassium Chloride Oral Tablet 20 MEQ PO (09:25)
[2023-08-11] MEDS: Iron Polysaccharide Complex 150 MG CAPSULE PO (09:26)
[2023-08-11] MEDS: APIXABAN 5 MG TABLET PO ×2 (09:26→21:02)
[2023-08-11] MEDS: Bumetanide 2 MG Tablet PO (09:26)
[2023-08-11] MEDS: Citalopram 10 MG Tablet PO (09:26)
[2023-08-11] MEDS: Allopurinol 300 MG Tablet PO (09:26)
[2023-08-11] MEDS: Famotidine 20 MG Tablet PO (09:27)
[2023-08-11] MEDS: rifAXIMin 550 MG Tablet PO ×2 (09:28→21:03)
[2023-08-11] MEDS: Ursodiol 250 MG Tablet PO ×2 (09:28→21:03)
[2023-08-11] MEDS: Tacrolimus 0.5 MG Capsule PO ×2 (10:37→21:32)
[2023-08-11 16:36] VITALS: TEMP 36.4
[2023-08-12 04:12] VITALS: BMI 55.5
--- NOTE | 2023-08-12 04:24 | NURSING ---
Increase in weight, frequent requests for soda (regular coca-cola) and water. Daily weight order in place. Education provided regarding sodium restricted diet and sodium levels in soda along with increased fluid intake with each can. Patient reports I'm addicted to coke (soda), I have to have cases of it at home and it always makes me anxious that I will run out of it. Reports anxiety at times. Patient aware of weight increase. Written communication left for Dr. Bose review this AM regarding patient weight increase, fluid intake and stated addiction to coca-cola, and reports of feeling anxious at times. No distress at this time. Patient requests cup of ice and coca-cola at this time despite education, Provided per request. Call light in reach. Denies SOB.
[2023-08-12] MEDS: oxyCODONE 5 MG Tablet 10 MG PO (05:33)
[2023-08-12] MEDS: Lactulose 20 GM/30 ML UDC PO (05:33)
[2023-08-12] MEDS: Levothyroxine 25 MCG TABLET PO (05:33)
[2023-08-12] MEDS: Amiodarone 200 MG Tablet PO (08:32)
[2023-08-12] MEDS: Citalopram 10 MG Tablet PO (08:33)
[2023-08-12] MEDS: Smz/Tmp Ds Tablet 0.5 TABLET PO (08:33)
[2023-08-12] MEDS: Ursodiol 250 MG Tablet PO (08:34)
[2023-08-12] MEDS: APIXABAN 5 MG TABLET PO (08:34)
[2023-08-12] MEDS: Potassium Chloride Oral Tablet 20 MEQ PO (08:34)
[2023-08-12] MEDS: Famotidine 20 MG Tablet PO (08:34)
[2023-08-12] MEDS: Tacrolimus 0.5 MG Capsule PO (08:34)
[2023-08-12] MEDS: Iron Polysaccharide Complex 150 MG CAPSULE PO (08:34)
[2023-08-12] MEDS: rifAXIMin 550 MG Tablet PO (08:34)
[2023-08-12] MEDS: Bumetanide 2 MG Tablet PO (08:34)
[2023-08-12] MEDS: Allopurinol 300 MG Tablet PO (08:35)
[2023-08-12] MEDS: Hydrocortisone 10 MG Tablet PO (08:35)
[2023-08-12] MEDS: proCHLORPERazine 5 MG Tablet PO (09:06)
[2023-08-12 09:26] LABS: Absolute Lymphocyte Count 0.61 X10^3/uL (0.83-4.51); Absolute Neutrophil Count 9.4 X10^3/uL (2.0-7.7); Basophil# 0.02 X10^3/uL; Basophil% 0.2 % (0-1); Eosinophil# 0.04 X10^3/uL; Eosinophils% 0.4 % (0-5); Hematocrit 36.5 % (40-54); Hemoglobin 12.1 g/dL (13.0-16.5); Lymphocyte # 0.61 X10^3/ul (0.83-4.51); Lymphocyte % 5.6 % (19-41); Mean Corp Hgb Conc 33.2 g/dL (32-36); Mean Corpuscular Hgb 32.6 pg (27.0-32.0); Mean Corpuscular Volume 98.4 fL (80-94); Mean Platelet Vol. 10.9 fl (6.2-12.0); Monocyte% 6.5 % (0-10); NRBC Flagged by Analyzer 0 % (0-5); Neutrophil # 9.36 X10^3/uL (2.7-7.7); Neutrophil % 86.3 % (47-70); POSITIVE MORPHOLOGY YES; Platelet Count 178 K/mm3 (150-450); RBC Distribution Width CV 18.5 % (11.6-14.6); RBC Distribution Width SD 66.4 fl (35.1-43.9); Red Blood Count 3.71 M/mm3 (4.6-6.2); White Blood Count 10.8 K/mm3 (4.4-11.0)
[2023-08-12 09:35] LABS: Differential Indicated SCAN CRITERIA MET
[2023-08-12 09:47] LABS: Anisocytosis 2+; Differential Comment SCANNED; Macrocytosis 1+; Microcytosis 1+
[2023-08-12 10:00] VITALS: PULSE 96; O2SAT 98
[2023-08-12 10:28] LABS: Anion Gap 9 (5-15); BUN 79 mg/dL (7-18); BUN/Creat Ratio 25.2 RATIO (10-20); Calcium,Total 8.5 mg/dL (8.5-10.1); Chloride 102 mmol/L (98-107); Creatinine, Serum 3.13 mg/dL (0.70-1.30); EST Glomerular Filtration Rate 22 mL/min (>60); Est Glom Filt Rate - Afr Amer 26 mL/min (>60); Estimated Creatinine Clearance 26.06 ml/min; Glucose 268 mg/dL (74-106); Potassium 5.2 mmol/L (3.5-5.1); Sodium Level 132 mmol/L (136-145)
[2023-08-12 10:30] VITALS: BP 127/61; PULSE 96; RESP 18; TEMP 35.9; O2SAT 98
[2023-08-12] MEDS: Sodium Polystyrene Sulfonate 15 GM/60 ML UDC 30 GM PO (11:29)
--- NOTE | 2023-08-12 12:50 | NURSING ---
Offered Covid vaccine, VIS provided. Patient refuses at this time.
[2023-08-12 15:34] LABS: Bedside Glucose 268 mg/dL (74-106)
--- NOTE | 2023-08-13 07:45 | NURSING ---
Late entry from 08/12/[address] Bose called and updated on pt's status. Pt very lethargic and family concerned with c/o of nausea and pt's color. N.O. received to send pt to E.R. Report called to Jocelyn BURRELL in ER.
--- NOTE | 2023-08-13 09:46 | DS.PCM_ITS ---
Providers Primary Care Physician: Dr. Lance Bose MD Consultations 08/06/23 13:32 Consult: Orthopedics Routine Consulting Provider: Larry Zamorano Reason for Consult: Ankle fx EMERGENT Consult: No MD Notified: Yes Date Notified: 08/06/23 Time Notified: 13:33 Method of Notification: Verbal Comments:: Spoke with Shashank 08/06/23 19:32 Consult: Podiatry Routine Consulting Provider: Larry Zamorano Reason for Consult: Left trimalleolar fracture s/p ORIF EMERGENT Consult: No MD Notified: Yes Date Notified: 08/07/23 Time Notified: 08:21 Method of Notification: Answering Service Reason For Visit: L ANKLE FX/CHF Diagnosis Discharge Diagnosis (1) Bimalleolar avulsion fracture of left ankle: Status: Inactive Code(s): S82.842A - Displaced bimalleolar fracture of left lower leg, initial encounter for closed fracture Plan 62 year old male with below past medical history hospitalized for left ankle fracture, underwent ORIF left trimalleolar fracture 07/30/[address] Zamorano, complicated by acute on chronic HFpEF, acute on chronic kidney failure, hyperkalemia, admitted to TCU with debility, here for rehabilitation, strengthening, prior to discharge home with . * Debility - PT/OT. * Pain - Oxycodone 10mg tid prn pain (6-10). * Bowel - Lactulose 20gm tid. * Adult immunization - Administer pneumonia vaccine, covid vaccine, flu vaccine as appropriate. * DVT prophylaxis - on Eliquis. * Left ankle fracture s/p ORIF - Consult Dr. Zamorano for expertise. * Gout - Allopurinol 300mg daily * Atrial fibrillation - Metoprolol 12.5mg bid, Amiodarone 200mg daily, Eliquis 5mg bid. * Chronic HFpEF - Metoprolol 12.5mg bid, Entresto 49/51mg bid, Bumex 2mg daily. * Coronary artery disease - Metoprolol 12.5mg bid, NTG 0.4mg q5m prn. * Depression - Citalopram 10mg daily, stable chronic terminologist use, GDR not recommended. * GERD - Famotidine 20mg daily. * Adrenal insufficiency - Cortef 20mg am, 10mg pm. * Iron deficiency anemia - Ferrex 150mg daily. * Hx liver transplant - Lactulose 20gm tid, Xifaxan 550mg bid, Bactrim DS 1/2 tablet daily, Tacrolimus 0.5mg q12. * Hypothyroidism - Levothyroxine 25mcg daily. * Hypokalemia - KCL 20meq daily. * Nausea - Compazine 5mg q6h prn. * Choledocholithiasis - Ursodiol 250mg bid. Medications at Discharge Home Medications apixaban 5 mg tablet (Eliquis) 5 mg PO BID BLOOD THINNER 07/20/22 allopurinol 300 mg tablet 300 mg PO DAILY GOUT 11/04/22 tacrolimus 0.5 mg capsule, immediate-release 0.5 mg PO Q12H LIVER TRANSPLANT 11/06/22 nitroglycerin 0.4 mg sublingual tablet 0.4 mg sublingual Q5M PRN CHEST PAIN #25 tabs 11/27/22 citalopram 10 mg tablet 10 mg PO DAILY MOOD 02/08/23 amiodarone 200 mg tablet 200 mg PO DAILY BLOOD PRESSURE 02/14/23 ursodiol 300 mg capsule 300 mg PO BID GALLSTONES 02/14/23 prochlorperazine maleate 5 mg tablet 5 mg PO Q6H PRN NAUSEA/VOMITING 03/10/23 famotidine 20 mg tablet 20 mg PO Q12H ACID REFLUX 04/24/23 levothyroxine 25 mcg tablet 25 mcg PO DAILY THYROID 04/24/23 oxycodone 10 mg tablet 10 mg PO TID PRN BTP 04/24/23 polysaccharide iron complex 150 mg iron capsule (Ferrex) 150 mg PO DAILY supplment 05/14/23 potassium chloride 20 mEq tablet,extended release(part/cryst) (Klor-Con M) 20 meq PO DAILY help with potassium #30 tabs 05/18/23 bumetanide 2 mg tablet 2 mg PO DAILY water pill 05/31/23 hydrocortisone 10 mg tablet 10 mg PO .COMPLEX help with legs 06/05/23 metoprolol tartrate 25 mg tablet 12.5 mg PO BID heart 06/05/23 sacubitril 49 mg-valsartan 51 mg tablet (Entresto) 1 tab PO BID repair heart muscle 06/05/23 lactulose 20 gram/30 mL oral solution 20 g (30 mL) PO TID liver disease #1,200 mL 06/07/23 rifaximin 550 mg tablet (Xifaxan) 550 mg PO BID help with liver #60 tabs 06/07/23 sulfamethoxazole 400 mg-trimethoprim 80 mg tablet 1 tab PO DAILY liver transplant 07/25/23 Hospital Course Operations None Procedures None Summary of Care Provided Minutes Spent on Discharge: 35 Hospital Course: 62 year old male with below past medical history hospitalized for left ankle fracture, underwent ORIF left trimalleolar fracture 07/30/[address] Zamorano, complicated by acute on chronic HFpEF, acute on chronic kidney failure, hyperkalemia, admitted to TCU with debility, here for rehabilitation, strengthening, prior to discharge home with . 08/12/2023 Resident had change in mental status. Discharge to [facility] ED for evaluation, possible admission to hospital. Weight / BMI Weight Weight: 180.1 kg Body Mass Index (BMI) 55.5 ABG / Lab / Microbiology Data 08/12/23 09:18 08/12/23 09:18 Laboratory: Laboratory Results - last 24 hr 08/12/23 09:18: Differential Comment SCANNED, Anisocytosis 2+, Microcytosis 1+, Macrocytosis 1+, Sodium 132 L, Potassium 5.2 H, Chloride 102, Carbon Dioxide 21.0, Anion Gap 9, BUN 79 H, Creatinine 3.13 H, Estim Creat Clear Calc 26.06, Est GFR (MDRD) Af Amer 26 L, Est GFR (MDRD) Non-Af 22 L, BUN/Creatinine Ratio 25.2 H, Glucose 268 H, Calcium 8.5 08/12/23 15:15: POC Glucose 268 H Microbiology: Microbiology 08/12/23 04:00 Nasal Secretion SARS-CoV-2 Antigen (Rapid) - Final 08/08/23 04:50 Nasal Secretion SARS-CoV-2 Antigen (Rapid) - Final D/C Instructions Discharge Diet: No restrictions Discharge Activity: Return to Normal Activity, May Shower and Use Walker Weight Bearing Status: Weight bearing as tolerated Call your doctor if you observe: Fever of 101 or Higher, Inability to urinate, Inability to have a bowel movement, Shortness of breath, Dizziness, Fainting spells, Swelling in the ankles, Chest pain and Uncontrolled pain Additional Instructions: Discharge to [facility] ED for evaluation, possible admission to hospital. Meaningful Use Info Meaningful Use Diagnoses (Choose all that apply): None applicable Discharge Plan Admission Primary Reason for Your Visit: Debility. Attending Provider: Lance Bose Chi Primary Care Provider: Lance Bose Chi Consulting Providers: Larry Zamorano Instructions Additional Instructions / Restrictions: Discharge to [facility] ED for evaluation, possible admission to hospital. Discharge Orders/Prescriptions Prescriptions: No Action nitroglycerin 0.4 mg tablet, sublingual 0.4 mg sublingual Q5M PRN (Reason: CHEST PAIN ) Qty: 25 1RF Rx Instructions: do not exceed 3 doses per episode lactulose 20 gram/30 mL solution 20 g PO TID Qty: 1200 11RF Xifaxan 550 mg tablet 550 mg PO BID Qty: 60 11RF bumetanide 2 mg tablet 2 mg PO DAILY hydrocortisone 10 mg tablet 10 mg PO .COMPLEX Rx Instructions: 10 mg orally; 2 tabs daily in the morning, then 1 tab daily in the evening. metoprolol tartrate 25 mg tablet 12.5 mg PO BID Patient Comments: TAKE 1 TABLET BY MOUTH TWICE DAILY Entresto 49-51 mg tablet 1 tab PO BID Eliquis 5 mg tablet 5 mg PO BID allopurinol 300 mg tablet 300 mg PO DAILY tacrolimus 0.5 mg capsule 0.5 mg PO Q12H citalopram 10 mg tablet 10 mg PO DAILY amiodarone 200 mg tablet 200 mg PO DAILY ursodiol 300 mg capsule 300 mg PO BID famotidine 20 mg Tablet 20 mg PO Q12H oxycodone 10 mg tablet 10 mg PO TID PRN (Reason: BTP) Patient Comments: FAMILY STATES PER DR SOLOMON PT MAY TAKE EVERY 6 HOURS levothyroxine 25 mcg Tablet 25 mcg PO DAILY sulfamethoxazole-trimethoprim 400-80 mg tablet 1 tab PO DAILY Patient Comments: TAKE 1 TABLET BY MOUTH DAILY prochlorperazine maleate 5 mg Tablet 5 mg PO Q6H PRN (Reason: NAUSEA/VOMITING) polysaccharide iron complex [Ferrex 150] 150 mg iron capsule 150 mg PO DAILY potassium chloride [Klor-Con M20] 20 mEq tablet,ER particles/crystals 20 meq PO DAILY Qty: 30 0RF Hold Instructions: Ordered Referrals / Follow Up: Lance Bose Chi, MD [Primary Care Provider] - Disposition Disposition (needs filled in before D/C Order can be placed): Acute Care Hospital
--- NOTE | 2023-08-14 13:50 | MDS.RN ---
Information for the mds was obtained from review of the clinical record, interview of resident, staff, and direct observation of resident's care.
== END 2023-08-12 15:43 | disposition short-term general hospital (02) | DRG 559 ==
LOC: TCU 08-13 12:08
PROVIDERS: Admitting Provider Family Medicine Geriatric Medicine; PCP Family Medicine Geriatric Medicine; Visit Provider Family Medicine Geriatric Medicine
DX: S82.852D Displaced trimalleolar fracture of left lower leg, subsequent encounter for closed fracture with routine healing (principal); I50.33 Acute on chronic diastolic (congestive) heart failure; E27.40 Unspecified adrenocortical insufficiency; N17.9 Acute kidney failure, unspecified; I13.0 Hypertensive heart and chronic kidney disease with heart failure and stage 1 through stage 4 chronic kidney disease, or unspecified chronic kidney disease; N18.4 Chronic kidney disease, stage 4 (severe); Z94.4 Liver transplant status; K80.50 Calculus of bile duct without cholangitis or cholecystitis without obstruction; I48.0 Paroxysmal atrial fibrillation; D50.9 Iron deficiency anemia, unspecified; E87.5 Hyperkalemia; E87.6 Hypokalemia; I25.10 Atherosclerotic heart disease of native coronary artery without angina pectoris; W19.XXXD Unspecified fall, subsequent encounter; M10.9 Gout, unspecified; K21.9 Gastro-esophageal reflux disease without esophagitis; Z79.899 Other long term (current) drug therapy; Z79.890 Hormone replacement therapy; Z79.01 Long term (current) use of anticoagulants
CPT/HCPCS: 36415; 80048; 82140; 82962; 85025; 87811; 97110; 97162; 97166; 97530; 97535; 97802; J7040; A4216

== ENCOUNTER 2023-08-12 15:43 | Inpatient (IN) | payer MEDICARE, SELFPAY ==
[2023-08-12] VITALS (15 sets, daily range): BP systolic 83–122; BP diastolic 54–76; PULSE 91–144; RESP 11–21; TEMP 36.6; O2SAT 97–100; BMI 55.5; BMI 57.6
--- NOTE | 2023-08-12 15:55 | EKG12_ITS ---
Test Reason : ABNORMAL LAB Blood Pressure : / mmHG Vent. Rate : 146 BPM Atrial Rate : 000 BPM P-R Int : 000 ms QRS Dur : 086 ms QT Int : 294 ms P-R-T Axes : 000 -79 054 degrees QTc Int : 458 ms Critical Test Result: High HR Supraventricular tachycardia Low voltage QRS Left anterior fascicular block Possible Anterolateral infarct , age undetermined Abnormal ECG Confirmed by KAREEM SHIPMAN, SUZE ([id number]), market editor HARPER LERNER ([id number]) on 08/19/2023 6:57:37 AM Referred By: Andrés Dave Confirmed By:KOBY SERNA MD
--- NOTE | 2023-08-12 15:57 | EX.ED.DYSGE1 ---
HPI History of Present Illness Chief Complaint: Abn Labs Narrative Narrative: 62-year-old male past medical history of liver transplant, adrenal insufficiency, hypothyroidism, obesity, presents from the TCU with abnormal laboratory work. Family states that he was seen in the emergency department and had a broken foot. This was back around [facility], few weeks ago. He was hospitalized and was on the medical surgical floor, then sent to the TCU. He has been there for about a week. They state that he has abnormal labs. He has an elevated BUN and an elevated creatinine above 3. Additionally they said his ammonia was Elevated, and that he looked a little jaundiced. His daughter states that they have not done his LFTs in quite some time. Patient denies any fevers or chills, no nausea or vomiting, no diarrhea, no other symptoms. [facility] Medical History (Updated 08/12/23 @ 20:40 by Andrés Dave MD) (HFpEF) heart failure with preserved ejection fraction Acidosis, lactic Acute hypotension Adrenal insufficiency Adult failure to thrive Anasarca Anemia of chronic disease Anxiety Ascites Atherosclerotic heart disease of [place] coronary artery without angina pectoris Atrial fibrillation Atrial flutter with rapid ventricular response (02/02/21) Bimalleolar avulsion fracture of left ankle BMI 50.0-59.9, adult CAD (coronary artery disease) Cancer of skin of left ear Cellulitis Chest pain Chronic anticoagulation Chronic diastolic congestive heart failure Chronic kidney disease, stage 3b CKD (chronic kidney disease), stage IV Closed left humeral fracture Coronary artery disease Debility Elevated troponin Gout History of non-ST elevation myocardial infarction (NSTEMI) (12/29/20) Hypertension Insomnia Iron deficiency anemia Kidney disease Lactic acidosis Lumbar radiculopathy Malaise and fatigue Morbid obesity Multiple falls FELIPE (nonalcoholic steatohepatitis) Nonsustained paroxysmal ventricular tachycardia (12/2020) Osteoarthritis of ankle and foot PAF (paroxysmal atrial fibrillation) Periprosthetic fracture around internal prosthetic joint Right hip pain Seborrhea of face SOB (shortness of breath) Stage 3b chronic kidney disease (CKD) Trimalleolar fracture of left ankle Unable to ambulate Venous insufficiency Vertigo, central Weakness Home Medications apixaban 5 mg tablet (Eliquis) 5 mg PO BID BLOOD THINNER 07/20/22 [History Last Taken 08/12/23] allopurinol 300 mg tablet 300 mg PO DAILY GOUT 11/04/22 [History Last Taken 08/12/23] tacrolimus 0.5 mg capsule, immediate-release 0.5 mg PO Q12H LIVER TRANSPLANT 11/06/22 [History Last Taken 08/12/23] nitroglycerin 0.4 mg sublingual tablet 0.4 mg sublingual Q5M PRN CHEST PAIN #25 tabs 11/27/22 [Rx Last Taken Unknown] citalopram 10 mg tablet 10 mg PO DAILY MOOD 02/08/23 [History Last Taken 08/12/23] amiodarone 200 mg tablet 200 mg PO DAILY BLOOD PRESSURE 02/14/23 [History Last Taken 08/12/23] ursodiol 300 mg capsule 300 mg PO BID GALLSTONES 02/14/23 [History Last Taken 08/12/23] prochlorperazine maleate 5 mg tablet 5 mg PO Q6H PRN NAUSEA/VOMITING 03/10/23 [History Last Taken 08/06/23] famotidine 20 mg tablet 20 mg PO Q12H ACID REFLUX 04/24/23 [History Last Taken 08/12/23] levothyroxine 25 mcg tablet 25 mcg PO DAILY THYROID 04/24/23 [History Last Taken 08/12/23] oxycodone 10 mg tablet 10 mg PO TID PRN BTP 04/24/23 [History Last Taken 08/12/23] polysaccharide iron complex 150 mg iron capsule (Ferrex) 150 mg PO DAILY supplment 05/14/23 [History Last Taken 08/12/23] potassium chloride 20 mEq tablet,extended release(part/cryst) (Klor-Con M) 20 meq PO DAILY help with potassium #30 tabs 05/18/23 [Rx Last Taken 08/12/23] bumetanide 2 mg tablet 2 mg PO DAILY water pill 05/31/23 [History Last Taken 08/12/23] hydrocortisone 10 mg tablet 10 mg PO .COMPLEX help with legs 06/05/23 [History Last Taken 08/12/23] metoprolol tartrate 25 mg tablet 12.5 mg PO BID heart 06/05/23 [History Last Taken 08/06/23] sacubitril 49 mg-valsartan 51 mg tablet (Entresto) 1 tab PO BID repair heart muscle 06/05/23 [History Last Taken 08/06/23] lactulose 20 gram/30 mL oral solution 20 g (30 mL) PO TID liver disease #1,200 mL 06/07/23 [Rx Last Taken 08/11/23] rifaximin 550 mg tablet (Xifaxan) 550 mg PO BID help with liver #60 tabs 06/07/23 [Rx Last Taken 08/12/23] sulfamethoxazole 400 mg-trimethoprim 80 mg tablet 1 tab PO DAILY liver transplant 07/25/23 [History Last Taken 08/12/23] Allergy/AdvReac Type Severity Reaction Status Date / Time morphine Allergy Hives Verified 08/12/23 15:48 pravastatin [From Pravachol] Allergy Hives Verified 08/12/23 15:48 Xvzqvfu-NGY-OeR Reductase Allergy Hives Verified 08/12/23 15:48 Inhibitor [Igrivjm-Muu-Tht Reductase Inhibitor] vancomycin Allergy NEEDS Verified 08/12/23 15:48 FOLLOW-UP zolpidem tartrate Allergy Hives Verified 08/12/23 15:48 [From Ambien] everolimus AdvReac Swelling Verified 08/12/23 15:48 gabapentin AdvReac NEEDS Verified 08/12/23 15:48 FOLLOW-UP Family History Mother Heart disease Father Heart disease Surgical History (Updated 08/12/23 @ 20:40 by Andrés Dave MD) H/O shoulder surgery History of cardioversion (02/02/21) History of cataract extraction with lens replacement (~11/22/22) History of hip surgery History of liver transplant Liver transplant recipient S/P PTCA (percutaneous transluminal coronary angioplasty) Status post liver transplant (07/2017) Social History household members: spouse Smoking Status: Never smoker alcohol intake: former substance use type: does not use caffeine: No ROS ROS ED ROS Narrative Obtained from family as well. Constitutional: No fever, no chills. HEENT: No sore throat. No neck pain. No loss of vision. No rhinorrhea. Cardiovascular: No chest pain. No palpitations. No pedal edema. Respiratory: No cough, no shortness of breath. Abdominal: No abdominal pain. No nausea. No vomiting. Genitourinary: No dysuria. No hematuria. Musculoskeletal: No myalgias. No arthralgias. Neurologic: No headaches. No dizziness. No lightheadedness. Mildly confused at times. Skin: No rash. Reported jaundice. Psychiatric: No depression. No anxiety. EXAM Physical Exam Narrative Exam Narrative: Afebrile. Vital signs noted. Nontoxic-appearing. HEENT: Normocephalic. Atraumatic. PERRL, EOMI. Neck soft and supple. No point tenderness or step off. Cardiovascular: Regular rate and rhythm. No murmurs, rubs, or gallops appreciated. Respiratory: No tachypnea. Lungs clear to auscultation bilaterally. Gastrointestinal: Abdomen soft, nontender, with normoactive bowel sounds. No rebound or guarding. Neurological: Awake. Alert. Oriented x 3. Nonfocal, nonlateralizing. Skin: No rash. Normal color. No pallor. No noted scleral icterus or jaundice. Some bruising of skin on arms and legs Musculoskeletal: No pedal edema. Full range of motion extremities. Const Vital Signs: 08/12/23 15:45 08/12/23 15:50 08/12/23 16:59 Temperature 97.9 F Temperature Source Temporal Pulse Rate 98 128 H Respiratory Rate 20 H 18 Respiratory Pattern Normal Blood Pressure 109/63 122/57 H Blood Pressure Mean 78 78 Pulse Ox 99 98 Oxygen Delivery Method Room Air Room Air MDM MDM MDM Narrative Medical decision making narrative: I reviewed the patient's laboratory work from today and he did have elevated BUN and creatinine. In discussion with the family, they state that Dr. Bose thought he may be better served being readmitted to the medical floor for his lab abnormalities including dehydration/elevated creatinine, and elevated ammonia. I will obtain laboratory work again to make sure there is no significant change. I reviewed his laboratory work and he has normal white count of 10.3, hemoglobin stable at 11.9, hematocrit 37.9, platelet count normal at 181. Electrolyte panel shows sodium slightly low 133 with potassium increased to 5.5. He was started on ED hyperkalemia protocol. He has a normal anion gap of 7. BUN is elevated at 81 with a creatinine of 3.32, while elevated is around his fluctuating baseline. Glucose is appropriately elevated at 281, but he has a normal anion gap so I have low concern for diabetic ketoacidosis. LFTs are normal but alk phos is elevated in the 200s which I think is nonspecific. His ammonia level is 52, down from 64 a few days ago. He is already on lactulose. Urinalysis was obtained and is negative for infection. I do not feel antibiotics are indicated. EKG obtained and interpreted by myself independently which demonstrated atrial fibrillation/flutter at [address] changes. No STEMI. Patient does have history of atrial fibrillation and is on Eliquis. Initially he was administered Cardizem 10 mg intravenously for rate control. He states that he was taken off amiodarone yesterday, but in review of the EMR it was reportedly administered this morning, 200 mg orally. He had a transient drop in his heart rate to the 120s, but is currently 140. I discussed the patient with Dr. Jerry on for cardiology as the patient sees Dr. Thomas. He suggested placing the patient on a Cardizem drip at 5 mg and admitting the patient. I then discussed patient with Dr. Rosa Salazar for admission. Disposition is admit in stable condition. History & Record Review Discussion w/independent historian: Patient and Family Additional record(s) reviewed:: Prior ED visit and Prior labs Lab Data Attestation: I reviewed the patient's lab results. Labs: Laboratory Results - last 24 hr 08/12/23 08/12/23 08/12/23 16:05 16:39 17:02 WBC 10.3 RBC 3.78 L Hgb 11.9 L Hct 37.9 L MCV 100.3 H MCH 31.5 MCHC 31.4 L D RDW Std Deviation 66.8 H RDW Coeff of Maciel 18.5 H Plt Count 181 MPV 11.4 Immature Gran % (Auto) 1.100 H Neut % (Auto) 87.5 H Lymph % (Auto) 4.4 L [place] % (Auto) 6.5 Eos % (Auto) 0.3 Baso % (Auto) 0.2 Absolute Neuts (auto) 9.0 H Absolute Lymphs (auto) 0.45 L Nucleated RBC % 0 Differential Comment ESR 15 PT Cancelled 15.7 H INR Cancelled 1.2 APTT Cancelled 26.7 Sodium 133 L Potassium 5.5 H Chloride 102 Carbon Dioxide 24.0 Anion Gap 7 BUN 81 H Creatinine 3.32 H Estim Creat Clear Calc 23.82 Est GFR (MDRD) Af Amer 24 L Est GFR (MDRD) Non-Af 20 L BUN/Creatinine Ratio 24.4 H Glucose 281 H Calcium 8.4 L Total Bilirubin 0.60 AST 24 ALT 26 Alkaline Phosphatase 224 H Ammonia 52.0 H B-Natriuretic Peptide 389.6 H Total Protein 5.0 L Albumin 1.7 L Globulin 3.3 Albumin/Globulin Ratio 0.5 L Procalcitonin 0.15 H Urine Color Yellow Urine Clarity Clear Urine pH 6.0 Ur Specific [place] 1.015 Urine Protein Negative Urine Glucose (UA) Normal Urine Ketones Negative Urine Occult Blood Negative Urine Nitrite Negative Urine Bilirubin Negative Urine Urobilinogen Normal Ur Leukocyte Esterase Negative Urine RBC 0 SEEN Urine WBC 0 SEEN Ur Squamous Epith Cells 0 SEEN Urine Bacteria 0 SEEN Urine Mucus 0 SEEN Management Discussion w/another healthcare provider: Hospitalist (Dr. Rosa Salazar) and Sewing Machine Operator Plastic Zipper (Dr. Jerry) Discharge Plan Dx/Rx/DC Orders Clinical Impression: CKD (chronic kidney disease), stage IV, Increased ammonia level, History of liver transplant, Debility, Atrial fibrillation with RVR Disposition Disposition: Acute Care Hospital [facility] Discharge Date/Time: 08/12/23 20:58
[2023-08-12 16:14] LABS: Absolute Lymphocyte Count 0.45 X10^3/uL (0.83-4.51); Basophil# 0.02 X10^3/uL; Basophil% 0.2 % (0-1); Eosinophil# 0.03 X10^3/uL; Eosinophils% 0.3 % (0-5); Hematocrit 37.9 % (40-54); Hemoglobin 11.9 g/dL (13.0-16.5); Lymphocyte # 0.45 X10^3/ul (0.83-4.51); Lymphocyte % 4.4 % (19-41); Mean Corp Hgb Conc 31.4 g/dL (32-36); Mean Corpuscular Hgb 31.5 pg (27.0-32.0); Mean Corpuscular Volume 100.3 fL (80-94); Mean Platelet Vol. 11.4 fl (6.2-12.0); Monocyte# 0.67 X10^3/uL; Monocyte% 6.5 % (0-10); NRBC Flagged by Analyzer 0 % (0-5); Neutrophil % 87.5 % (47-70); POSITIVE DIFFERENTIAL YES; POSITIVE MORPHOLOGY YES; Platelet Count 181 K/mm3 (150-450); RBC Distribution Width CV 18.5 % (11.6-14.6); RBC Distribution Width SD 66.8 fl (35.1-43.9); Red Blood Count 3.78 M/mm3 (4.6-6.2); White Blood Count 10.3 K/mm3 (4.4-11.0)
[2023-08-12] MEDS: 0.9% Normal Saline (1000mL) 1,000 ML 1000 ML IV (16:14)
[2023-08-12] MEDS: dilTIAZem 25 MG/5 ML Vial 10 MG IV BOLUS (16:15)
[2023-08-12 16:30] LABS: Differential Indicated SCAN CRITERIA MET
[2023-08-12 16:33] LABS: ALB/GLOB Ratio 0.5 RATIO (0.9-2.4); AST(SGOT) 24 U/L (15-37); Alanine Aminotransfer ALT/SGPT 26 U/L (16-61); Albumin, Serum 1.7 g/dL (3.2-5.0); Alkaline Phosphatase 224 U/L (45-117); Anion Gap 7 (5-15); BUN 81 mg/dL (7-18); BUN/Creat Ratio 24.4 RATIO (10-20); Calcium,Total 8.4 mg/dL (8.5-10.1); Chloride 102 mmol/L (98-107); Creatinine, Serum 3.32 mg/dL (0.70-1.30); EST Glomerular Filtration Rate 20 mL/min (>60); Est Glom Filt Rate - Afr Amer 24 mL/min (>60); Estimated Creatinine Clearance 23.82 ml/min; Globulin 3.3 g/dL (2.2-4.2); Glucose 281 mg/dL (74-106); Potassium 5.5 mmol/L (3.5-5.1); Sodium Level 133 mmol/L (136-145)
--- NOTE | 2023-08-12 16:53 | EKG12_ITS ---
Test Reason : change in rhythm Blood Pressure : / mmHG Vent. Rate : 085 BPM Atrial Rate : 085 BPM P-R Int : 208 ms QRS Dur : 086 ms QT Int : 386 ms P-R-T Axes : 016 -38 055 degrees QTc Int : 459 ms Normal sinus rhythm Left axis deviation Low voltage QRS Possible Anterolateral infarct , age undetermined Abnormal ECG When compared with ECG of 12-AUG-2023 16:03, MANUAL COMPARISON REQUIRED, DATA IS UNCONFIRMED Confirmed by KAREEM SHIPMAN, SUZE ([id number]), editor in chief newspaper JULIO CÉSAR SOLORIO ([id number]) on 08/19/2023 12:51:18 PM Referred By: Andrés Dave Confirmed By:KOBY SERNA MD
[2023-08-12 17:09] LABS: Bacteria 0 SEEN /hpf (None Seen); Mucous, Urine 0 SEEN /hpf (<or=2+); Red Blood Cells-Urine 0 SEEN /hpf (0-5); Squamous Epithelial Cells - UA 0 SEEN /hpf (0-5); White Blood Cells 0 SEEN /hpf (0-5)
[2023-08-12 17:20] LABS: Color, Urine Yellow (Yellow); Glucose, Dipstick Normal (Normal); Ketone-Dipstick Negative (Negative); Leukocyte Esterase-Dipstick Negative /ul (Negative); Nitrite-Dipstick Negative (Negative); Occult Blood-Urine Negative /ul (Negative); Protein-Dipstick Negative (Negative); Specific Gravity, Urine 1.015 (1.002-1.030); Urine Bilirubin Dipstick Negative (Negative); Urine Clarity Clear (Clear); Urine Urobilinogen Normal (Normal)
[2023-08-12 17:21] LABS: International Normalized Ratio 1.2; Prothrombin Time (Protime)PT. 15.7 SECONDS (11.7-14.9)
[2023-08-12 17:22] LABS: Partial Thromboplast Time 26.7 Seconds (24.1-36.2)
[2023-08-12] MEDS: Sodium Bicarbonate 150 MEQ in Dextrose 5%-Water (1000mL Bag) 1,000 ML 250 MEQ IV (17:31)
[2023-08-12] MEDS: Insulin Lispro 10 UNIT in Syringe 0 ML 6 UNIT IV (17:31)
[2023-08-12] MEDS: Dextrose 50%-Water 25 GM/50 ML DISP.SYRIN IV (17:32)
--- NOTE | 2023-08-12 18:58 | PCM.HP.STD ---
HPI - General General Date of Admission: 08/12/23 Date of Service: 08/12/23 Chief Complaint: Worsening kidney function HPI Narrative ESTEFANIA MILLER, is a 62-year-old male past medical history of liver transplant with cirrhosis, adrenal insufficiency, hypothyroidism, obesity, heart failure with preserved ejection fraction, CKD stage IV, A-fib who presents from the TCU 08/12/23 with abnormal laboratory work. He was recently in the hospital around giving time for a broken foot and has been at TCU for about a week. He had labs checked and had an elevated BUN and his creatinine was above 3 as well as an elevated ammonia and patient looked a little jaundice so he was sent to the ED. in ED creatinine 3.32 from 3.13 and BUN still elevated with potassium of 5.5. Ammonia 52 which is down from several days ago and bilirubin within normal limits. Patient was also found to be in A-fib with RVR and cardiology contacted and recommended Cardizem drip. Patient started on sodium bicarb and also given dextrose and insulin for his elevated potassium and hospitalist contacted for admission. Patient evaluated with family member at bedside, reportedly patient has been more tired and is feeling worse since Saturday and has had a little bit of cough and shortness of breath since this morning, off-and-on nausea but this is chronic, will get some chest pressure and then will take Compazine and that helps and denies any change from previous in this regard. Patient noted to be tachycardic in ED but does not note any palpitations and said he cannot tell when his heart is going fast. Denies fevers or chills, denies any changes in bowel or bladder, reports he has not been eating or drinking very well but is hungry now and would like to try to eat. No other focal complaints voiced, patient generally just feels unwell. [facility] Medical History (Updated 08/12/23 @ 19:[address] Sadie Salazar MD) (HFpEF) heart failure with preserved ejection fraction Acidosis, lactic Acute hypotension Adrenal insufficiency Adult failure to thrive Anasarca Anemia of chronic disease Anxiety Ascites Atherosclerotic heart disease of [place] coronary artery without angina pectoris Atrial fibrillation Atrial flutter with rapid ventricular response (02/02/21) Bimalleolar avulsion fracture of left ankle BMI 50.0-59.9, adult CAD (coronary artery disease) Cancer of skin of left ear Cellulitis Chest pain Chronic anticoagulation Chronic diastolic congestive heart failure Chronic kidney disease, stage 3b CKD (chronic kidney disease), stage IV Closed left humeral fracture Coronary artery disease Debility Elevated troponin Gout History of non-ST elevation myocardial infarction (NSTEMI) (12/29/20) Hypertension Insomnia Iron deficiency anemia Kidney disease Lactic acidosis Lumbar radiculopathy Malaise and fatigue Morbid obesity Multiple falls FELIPE (nonalcoholic steatohepatitis) Nonsustained paroxysmal ventricular tachycardia (12/2020) Osteoarthritis of ankle and foot PAF (paroxysmal atrial fibrillation) Periprosthetic fracture around internal prosthetic joint Right hip pain Seborrhea of face SOB (shortness of breath) Stage 3b chronic kidney disease (CKD) Trimalleolar fracture of left ankle Unable to ambulate Venous insufficiency Vertigo, central Weakness Home Medications apixaban 5 mg tablet (Eliquis) 5 mg PO BID BLOOD THINNER 07/20/22 [History Last Taken 08/12/23] allopurinol 300 mg tablet 300 mg PO DAILY GOUT 11/04/22 [History Last Taken 08/12/23] tacrolimus 0.5 mg capsule, immediate-release 0.5 mg PO Q12H LIVER TRANSPLANT 11/06/22 [History Last Taken 08/12/23] nitroglycerin 0.4 mg sublingual tablet 0.4 mg sublingual Q5M PRN CHEST PAIN #25 tabs 11/27/22 [Rx Last Taken Unknown] citalopram 10 mg tablet 10 mg PO DAILY MOOD 02/08/23 [History Last Taken 08/12/23] amiodarone 200 mg tablet 200 mg PO DAILY BLOOD PRESSURE 02/14/23 [History Last Taken 08/12/23] ursodiol 300 mg capsule 300 mg PO BID GALLSTONES 02/14/23 [History Last Taken 08/12/23] prochlorperazine maleate 5 mg tablet 5 mg PO Q6H PRN NAUSEA/VOMITING 03/10/23 [History Last Taken 08/06/23] famotidine 20 mg tablet 20 mg PO Q12H ACID REFLUX 04/24/23 [History Last Taken 08/12/23] levothyroxine 25 mcg tablet 25 mcg PO DAILY THYROID 04/24/23 [History Last Taken 08/12/23] oxycodone 10 mg tablet 10 mg PO TID PRN BTP 04/24/23 [History Last Taken 08/12/23] polysaccharide iron complex 150 mg iron capsule (Ferrex) 150 mg PO DAILY supplment 05/14/23 [History Last Taken 08/12/23] potassium chloride 20 mEq tablet,extended release(part/cryst) (Klor-Con M) 20 meq PO DAILY help with potassium #30 tabs 05/18/23 [Rx Last Taken 08/12/23] bumetanide 2 mg tablet 2 mg PO DAILY water pill 05/31/23 [History Last Taken 08/12/23] hydrocortisone 10 mg tablet 10 mg PO .COMPLEX help with legs 06/05/23 [History Last Taken 08/12/23] metoprolol tartrate 25 mg tablet 12.5 mg PO BID heart 06/05/23 [History Last Taken 08/06/23] sacubitril 49 mg-valsartan 51 mg tablet (Entresto) 1 tab PO BID repair heart muscle 06/05/23 [History Last Taken 08/06/23] lactulose 20 gram/30 mL oral solution 20 g (30 mL) PO TID liver disease #1,200 mL 06/07/23 [Rx Last Taken 08/11/23] rifaximin 550 mg tablet (Xifaxan) 550 mg PO BID help with liver #60 tabs 06/07/23 [Rx Last Taken 08/12/23] sulfamethoxazole 400 mg-trimethoprim 80 mg tablet 1 tab PO DAILY liver transplant 07/25/23 [History Last Taken 08/12/23] Allergy/AdvReac Type Severity Reaction Status Date / Time morphine Allergy Hives Verified 08/12/23 15:48 pravastatin [From Pravachol] Allergy Hives Verified 08/12/23 15:48 Iolwfzc-ODQ-VxO Reductase Allergy Hives Verified 08/12/23 15:48 Inhibitor [Jnybmhk-Tch-Wxr Reductase Inhibitor] vancomycin Allergy NEEDS Verified 08/12/23 15:48 FOLLOW-UP zolpidem tartrate Allergy Hives Verified 08/12/23 15:48 [From Ambien] everolimus AdvReac Swelling Verified 08/12/23 15:48 gabapentin AdvReac NEEDS Verified 08/12/23 15:48 FOLLOW-UP Family History Mother Heart disease Father Heart disease Surgical History H/O shoulder surgery History of cardioversion (02/02/21) History of cataract extraction with lens replacement (~11/22/22) History of hip surgery History of liver transplant Liver transplant recipient S/P PTCA (percutaneous transluminal coronary angioplasty) Status post liver transplant (07/2017) Social History household members: spouse Smoking Status: Never smoker alcohol intake: former substance use type: does not use caffeine: No ROS ROS Narrative General: Denies fever HENT: Denies headache, denies stuffy nose, denies sore throat EYES: Denies changes in vision Resp: slight cough and sob Cardiac: Said he gets some chest pressure but that it is relieved with Compazine GI: Denies abdominal pain, denies changes in bowel, chronic intermittent nausea and vomiting : Denies changes in urination Extremity: Denies new swelling MSK: Denies weakness Neuro: Denies any numbness/tingling Heme: Denies any bleeding or bruising Skin: Denies rashes Psychiatric: Feels tired Vital Signs Vital Signs Vital Signs: 08/12/23 15:45 08/12/23 15:50 08/12/23 16:59 Temperature 97.9 F Temperature Source Temporal Pulse Rate 98 128 H Respiratory Rate 20 H 18 Respiratory Pattern Normal Blood Pressure 109/63 122/57 H Blood Pressure Mean 78 78 Pulse Ox 99 98 Oxygen Delivery Method Room Air Room Air Weight Weight: 175.54 kg Body Mass Index (BMI) 55.5 Physical Exam Narrative General: Patient very tired but does answer questions appropriately and will wake up when prompted HEENT: Atraumatic, normocephalic Eyes: Anicteric, normal conjunctiva, extraocular movements grossly intact Neck: Supple Respiratory: Somewhat diminished at the bases but this is likely secondary to body habitus, normal respiratory effort Cardiovascular: Tachycardic with heart rate in 140s GI: Soft, nontender, nondistended Extremities: Trace edema in lower extremities but left leg casted Musculoskeletal: Moving all extremities Neuro: No overt focal neurological deficits Skin: Scattered bruising Psych: Cooperative Results Lab / Micro Data 08/12/23 16:05 08/12/23 16:05 Labs: Laboratory Results - last 24 hr 08/12/23 16:05: WBC 10.3, RBC 3.78 L, Hgb 11.9 L, Hct 37.9 L, MCV 100.3 H, MCH 31.5, MCHC 31.4 L D, RDW Std Deviation 66.8 H, RDW Coeff of Maciel 18.5 H, Plt Count 181, MPV 11.4, Immature Gran % (Auto) 1.100 H, Neut % (Auto) 87.5 H, Lymph % (Auto) 4.4 L, Mayes % (Auto) 6.5, Eos % (Auto) 0.3, Baso % (Auto) 0.2, Absolute Neuts (auto) 9.0 H, Absolute Lymphs (auto) 0.45 L, Nucleated RBC % 0, Differential Comment , PT Cancelled, INR Cancelled, APTT Cancelled, Sodium 133 L, Potassium 5.5 H, Chloride 102, Carbon Dioxide 24.0, Anion Gap 7, BUN 81 H, Creatinine 3.32 H, Estim Creat Clear Calc 23.82, Est GFR (MDRD) Af Amer 24 L, Est GFR (MDRD) Non-Af 20 L, BUN/Creatinine Ratio 24.4 H, Glucose 281 H, Calcium 8.4 L, Total Bilirubin 0.60, AST 24, ALT 26, Alkaline Phosphatase 224 H, Ammonia 52.0 H, Total Protein 5.0 L, Albumin 1.7 L, Globulin 3.3, Albumin/Globulin Ratio 0.5 L 08/12/23 16:39: PT 15.7 H, INR 1.2, APTT 26.7 08/12/23 17:02: Urine Color Yellow, Urine Clarity Clear, Urine pH 6.0, Ur Specific [place] 1.015, Urine Protein Negative, Urine Glucose (UA) Normal, Urine Ketones Negative, Urine Occult Blood Negative, Urine Nitrite Negative, Urine Bilirubin Negative, Urine Urobilinogen Normal, Ur Leukocyte Esterase Negative, Urine RBC 0 SEEN, Urine WBC 0 SEEN, Ur Squamous Epith Cells 0 SEEN, Urine Bacteria 0 SEEN, Urine Mucus 0 SEEN Assessment & Plan Assessment/Plan (1) Tachycardia: (2) (HFpEF) heart failure with preserved ejection fraction: QUALIFIERS: Heart failure chronicity: chronic Qualified Code(s): I50.32 - Chronic diastolic (congestive) heart failure (3) Cirrhosis: QUALIFIERS: Hepatic cirrhosis type: unspecified hepatic cirrhosis Ascites presence: without ascites Qualified Code(s): K74.60 - Unspecified cirrhosis of liver (4) Adrenal insufficiency: (5) GERD (gastroesophageal reflux disease): (6) Gout: (7) History of liver transplant: (8) Hypothyroidism: (9) Acute kidney injury: (10) CKD (chronic kidney disease), stage IV: (11) PAF (paroxysmal atrial fibrillation): (12) Trimalleolar fracture of left ankle: QUALIFIERS: Encounter type: initial encounter Fracture type: closed Qualified Code(s): S82.852A - Displaced trimalleolar fracture of left lower leg, initial encounter for closed fracture PLAN: Plan #Tachycardia- A-fib/flutter with RVR -Cardiology contacted in ED and recommended Cardizem drip -Admit to PCU stepdown on Cardizem drip -Continue anticoagulation and Amio and beta-satish at this time with goal to cross titrate to orals as he improves -Rate actually appears fairly regular and has stayed relatively consistent, query if flutter given consistency -Recheck limited echo #AISSATOU on CKD IV -Patient has CKD stage IV with variable baseline but creatinine typically mid 2 range, earlier today was 3.13 and was 3.32 on repeat in ED -Will obtain urine studies -Will consult nephrology given patient's precarious volume status given his CKD stage IV as well as his heart failure with preserved ejection fraction and cirrhosis -Daily weights, I's and O's -Patient on Bactrim chronically, given this is transplant related hesitant to hold this medication, will continue with low threshold to hold if patient continues to worsen -Will hold Entresto however #Hyperkalemia -Pt started on bicarb in ED and given insulin and glucose -Trend BMP #Increased lethargy -Obtain ABG -Also obtain chest x-ray given some complaints of shortness of breath and cough, O2 sats within normal limits -White blood cell count within normal limits however has left shift and decreased level of consciousness as well as AISSATOU and tachycardia, patient immunocompromised and cannot rule out underlying infection so we will obtain cultures and empirically started on Zosyn, de-escalate quickly if no other signs or symptoms of infection found however given patient's appearance and clinical status in the ED feel antibiotic coverage is warranted at this time -Will check ESR, CRP, Pro-Robbie -Additionally will check tacrolimus level especially given kidney function as elevation could also cause mental status changes -Ammonia actually down from previous #Hx cirrhosis w/ liver transplant -Continue home medications, check tacrolimus lvl #Recent fall w/ left bimalleolar fracture -pt/ot, supportive care -Needs reevaluation by podiatry around 08/21/2023 and repeat x-rays at that time #History of coronary artery disease -Continue home medications #GERD -Continue famotidine #Adrenal insufficiency -Continue home hydrocortisone -If any hypotension may need stress dose steroids #Gout -Continue allopurinol #Hypothyroidism -Continue Synthroid #Morbid obesity -BMI 55.5 kg/m? -Complicates treatment, prognosis, outcomes -Recommend weight loss and lifestyle changes #Chronic HFpEF -Echo 07/26/2023 with mild concentric left ventricular hypertrophy and EF of 65% -Daily weights, I's and O's -Holding Entresto #Depression -Continue citalopram #DVT ppx: Arias Salazar MD Time spent in the patient's overall evaluation,decision-making process, review of diagnostic data, adjustment of management, discussion with other providers, nursing nursing and ancillary staff involved in patient's care documentation, 75 Minutes Charges/Coding Visit Charges Inpatient E&M: 98406 Init Hosp L3
--- NOTE | 2023-08-12 19:32 | ECHOLC_ITS ---
Reason For Study: ATRIAL FIB-FLUTTER Procedure This was a limited 2D transthoracic echocardiogram. The study was technically difficult. Limited views were obtained. Exam performed with patient in supine position due to inability to roll onto side. Exam performed portable in patient room. Medication Diluted definity 5ml given slow IV push to enhance endocardial definition. MMode/2D Measurements & Calculations LVIDd: 4.3 cm IVSd: 1.1 cm LVIDs: 2.9 cm LVPWd: 1.2 cm FS: 32.2 % ECHO/Echo Limited w/Contrast Interpretation Summary Technically very difficult and limited study. LV systolic function appears to be normal. Ordering Physician: Sadie Salazar Referring Physician: Andrés Dave Performed By: Sadia Calzada RDCS
[2023-08-12] MEDS: Diltiazem 125 MG in Dextrose 5%-Water (100mL Bag) 100 ML CONT INF (19:44)
--- NOTE | 2023-08-12 19:53 | RAD_ITS ---
INDICATION: SOB and cough EXAMINATION/TECHNIQUE: X-RAY - portable AP semiupright chest x-ray COMPARISON: 07/25/2023 FINDINGS: LINES/DEVICES: None. LUNGS: Streaky retrocardiac airspace opacity. No consolidation or pleural effusion. No vascular congestion. MEDIASTINUM AND CARDIOVASCULAR STRUCTURES: Cardiac silhouette not enlarged. Central airways and mediastinal contour are unremarkable. BONES AND SOFT TISSUES: No acute changes. RAD/Chest 1 View (Portable) IMPRESSION: Left lower lobe retrocardiac infiltrate consistent with pneumonia. Recommend follow-up to complete resolution. Electronically Signed: Varinder Hansen MD at 20:30 EST ,
[2023-08-12] MEDS: Piperacil/Tazobactam 4.5 GM in 0.9% Normal Saline (100mL MB+) 100 ML IV (19:56)
[2023-08-12] MEDS: proCHLORPERazine 5 MG Tablet PO (19:57)
[2023-08-12 20:00] LABS: Erythrocyte Sedimentation Rate 15 mm/hr (0-20)
[2023-08-12 20:02] LABS: Procalcitonin 0.15 ng/mL (0.00-0.09)
--- NOTE | 2023-08-12 20:05 | ED.RN ---
pt states he felt his heart rhythm change. pt now in nsr.
[2023-08-12 20:17] LABS: BNP,B-Type NATRIURETIC PEPTIDE 389.6 pg/mL (0-100)
[2023-08-12 20:18] LABS: Allen Test Positive; Base Excess -2 mmol/L (-2 to +2); Blood Gas Specimen Type ART; Mode Not entered; O2 Delivery Device Room Air; PO2 92 mmHG (75-100); SITE R Radial; SO2 98 % (95-99); Total Carbon Dioxide 23 mmol/L; pH 7.47 (7.35-7.45)
[2023-08-12 20:25] LABS: Lactic Acid 2.8 mmol/L (0.4-1.9)
[2023-08-12] MEDS: 0.9% Normal Saline (1000mL) 1,000 ML 100 ML IV (21:57)
[2023-08-12] MEDS: oxyCODONE 5 MG Tablet 10 MG PO (22:27)
[2023-08-12] MEDS: rifAXIMin 550 MG Tablet PO (22:33)
[2023-08-12] MEDS: APIXABAN 5 MG TABLET PO (22:34)
[2023-08-12] MEDS: Lactulose 20 GM/30 ML UDC PO (22:34)
[2023-08-12 22:45] LABS: Anion Gap 6 (5-15); BUN 80 mg/dL (7-18); BUN/Creat Ratio 26.5 RATIO (10-20); Calcium,Total 7.6 mg/dL (8.5-10.1); Chloride 103 mmol/L (98-107); Creatinine, Serum 3.02 mg/dL (0.70-1.30); EST Glomerular Filtration Rate 22 mL/min (>60); Est Glom Filt Rate - Afr Amer 27 mL/min (>60); Estimated Creatinine Clearance 26.19 ml/min; Glucose 278 mg/dL (74-106); Potassium 4.8 mmol/L (3.5-5.1); Sodium Level 133 mmol/L (136-145)
[2023-08-12] MEDS: Tacrolimus 0.5 MG Capsule PO (22:52)
[2023-08-12] MEDS: Ursodiol 250 MG Tablet PO (22:52)
[2023-08-12 23:23] LABS: Urea Nitrogen, Urine 742 mg/dL (NO RANGE EST.); Urine Chloride < 10 mmol/L (Not Establ.); Urine Sodium 7 mmol/L (Not Establ.)
[2023-08-12 23:52] LABS: Reflex Lactate? Y
[2023-08-13] VITALS (25 sets, daily range): BP systolic 96–139; BP diastolic 51–116; PULSE 74–94; RESP 8–16; TEMP 36.4–36.7; O2SAT 98–100; BMI 59.2
[2023-08-13 00:42] LABS: M R Staph aureus DNA By PCR Negative (Negative)
[2023-08-13 00:43] LABS: Probe Check PASS; Specimen Processing Control PASS
[2023-08-13 01:28] LABS: Lactic Acid 1.8 mmol/L (0.4-1.9)
[2023-08-13] MEDS: Lactulose 20 GM/30 ML UDC PO ×3 (05:39→21:58)
[2023-08-13] MEDS: Piperacil/Tazobactam 3.375 GM in 0.9% Normal Saline (50mL MB+) 50 ML IV ×3 (05:39→22:06)
[2023-08-13] MEDS: Levothyroxine 25 MCG TABLET PO (05:39)
[2023-08-13] MEDS: oxyCODONE 5 MG Tablet 10 MG PO (05:39)
[2023-08-13 08:33] LABS: Hematocrit 33.9 % (40-54); Hemoglobin 10.9 g/dL (13.0-16.5); Mean Corp Hgb Conc 32.2 g/dL (32-36); Mean Corpuscular Hgb 31.7 pg (27.0-32.0); Mean Corpuscular Volume 98.5 fL (80-94); Mean Platelet Vol. 10.8 fl (6.2-12.0); POSITIVE MORPHOLOGY YES; Platelet Count 151 K/mm3 (150-450); RBC Distribution Width CV 18.6 % (11.6-14.6); RBC Distribution Width SD 66.5 fl (35.1-43.9); Red Blood Count 3.44 M/mm3 (4.6-6.2); White Blood Count 10.6 K/mm3 (4.4-11.0)
[2023-08-13 08:40] LABS: Scan Indicated on CBC? Y/N YES- FLAGS NOTED
--- NOTE | 2023-08-13 09:03 | EKG12_ITS ---
Test Reason : cp Blood Pressure : / mmHG Vent. Rate : 086 BPM Atrial Rate : 086 BPM P-R Int : 208 ms QRS Dur : 086 ms QT Int : 360 ms P-R-T Axes : 030 -44 048 degrees QTc Int : 430 ms Normal sinus rhythm Left axis deviation Low voltage QRS Possible Anterolateral infarct , age undetermined Abnormal ECG When compared with ECG of 13-AUG-2023 09:10, MANUAL COMPARISON REQUIRED, DATA IS UNCONFIRMED Confirmed by KAREEM SHIPMAN, SUZE ([id number]), editorial assistant JULIO CÉSAR SOLORIO ([id number]) on 08/19/2023 12:51:01 PM Referred By: Andrés Dave Confirmed By:KOBY SERNA MD
[2023-08-13] MEDS: Diltiazem 125 MG in Dextrose 5%-Water (100mL Bag) 100 ML CONT INF (09:11)
[2023-08-13 09:23] LABS: Differential Comment SCANNED
--- NOTE | 2023-08-13 09:23 | CASEMGMT ---
TCU is not willing to take patient back due to non compliance with care and orders. SW will notify patient and his . Kaley iRddle MSW ZAHRA
[2023-08-13] MEDS: proCHLORPERazine 5 MG Tablet PO (09:57)
[2023-08-13] MEDS: 0.9% Normal Saline (1000mL) 1,000 ML 100 ML IV ×2 (09:58→21:08)
--- NOTE | 2023-08-13 10:07 | CASEMGMT ---
Discharge Planning A list of?SNF providers including quality and resource use data and consistent with the patient's preferred geographic region, medical needs, and insurance network was created in [facility] Guide.? This list was provided to the SW. Vania Hill Discharge Planning Asst.
[2023-08-13] MEDS: Smz/Tmp Ds Tablet 0.5 TABLET PO (10:33)
[2023-08-13] MEDS: APIXABAN 5 MG TABLET PO ×2 (10:33→21:58)
[2023-08-13] MEDS: Amiodarone 200 MG Tablet PO (10:33)
[2023-08-13] MEDS: Allopurinol 300 MG Tablet PO (10:33)
[2023-08-13] MEDS: Metoprolol Tartrate 25 MG Tablet 12.5 MG PO ×2 (10:33→21:59)
[2023-08-13] MEDS: Hydrocortisone 10 MG Tablet 20 MG PO (10:33)
[2023-08-13] MEDS: Citalopram 10 MG Tablet PO (10:33)
[2023-08-13] MEDS: Tacrolimus 0.5 MG Capsule PO ×2 (10:34→22:00)
[2023-08-13] MEDS: Famotidine 20 MG Tablet PO (10:34)
[2023-08-13] MEDS: Ursodiol 250 MG Tablet PO ×2 (10:34→21:59)
[2023-08-13] MEDS: Acetaminophen 325 MG Tablet 650 MG PO (10:34)
[2023-08-13] MEDS: rifAXIMin 550 MG Tablet PO ×2 (10:34→22:00)
--- NOTE | 2023-08-13 10:42 | PCM.CONS.R ---
Assessment & Plan Assessment/Plan (1) Acute on chronic kidney failure: QUALIFIERS: Chronic kidney disease stage 3 subtype: stage 3b (GFR 30-44) PLAN: urine sodium 7, prerenal from afib with rvr, hypoalbuminemia albumin 1.6 low oncotic pressure, hypotension. Creatinine 2.98 today (2) CKD (chronic kidney disease), stage IV: PLAN: poor dialysis candidate due to multiple comorbidities. DW family at bedside. They request palliative consult (3) Atrial fibrillation with RVR: PLAN: rate controlled, back in SR (4) Trimalleolar fracture of left ankle: QUALIFIERS: Encounter type: initial encounter Fracture type: closed Qualified Code(s): S82.852A - Displaced trimalleolar fracture of left lower leg, initial encounter for closed fracture (5) Adrenal insufficiency: PLAN: on cortef (6) History of liver transplant: (7) Debility: (8) Cirrhosis: QUALIFIERS: Hepatic cirrhosis type: unspecified hepatic cirrhosis Ascites presence: without ascites Qualified Code(s): K74.60 - Unspecified cirrhosis of liver PLAN: hepatic encephalopathy on xifaxin, lactulose (9) History of non-ST elevation myocardial infarction (NSTEMI): HPI Consult Data Date of Consult: 08/13/23 HPI Narrative Reason for Consultation: acute on CKD stage 4 HPI Narrative: ESTEFANIA MILLER, is a 62 morbidly obese M who is readmitted from TCU for not feeling well. He was in afib with rvr with better rate control with medication, back in sinus rhythm. Renal function was worse with creatinine up to 3.3 from baseline 2.5. Creatinine 3.0 today with iv hydration. Urine sodium low at 7. Entresto discontinued last admission for worsening renal function. Potassium 5.0. Recently admitted to [facility] for fall s/p left ankle fracture with transfer to TCU for rehab. He has been NWB LLE with therapy at TCU. Family at bedside, pt spouse and daughter. He denied cough, fever, chills, chest pain or shortness of breath. He is grossly edematous with serum albumin low at 1.6. History of liver transplant. He has chronic diarrhea on lactulose for hepatic encephalopathy. He has been somnolent most of the time. [facility] Medical History (Updated 08/13/23 @ 14:[address] Verenice Monae DO) (HFpEF) heart failure with preserved ejection fraction Acidosis, lactic Acute hypotension Adrenal insufficiency Adult failure to thrive Anasarca Anemia of chronic disease Anxiety Ascites Atherosclerotic heart disease of ambler coronary artery without angina pectoris Atrial fibrillation Atrial flutter with rapid ventricular response (02/02/21) Bimalleolar avulsion fracture of left ankle BMI 50.0-59.9, adult CAD (coronary artery disease) Cancer of skin of left ear Cellulitis Chest pain Chronic anticoagulation Chronic diastolic congestive heart failure Chronic kidney disease, stage 3b CKD (chronic kidney disease), stage IV Closed left humeral fracture Coronary artery disease Debility Elevated troponin Gout History of non-ST elevation myocardial infarction (NSTEMI) (12/29/20) Hypertension Insomnia Iron deficiency anemia Kidney disease Lactic acidosis Lumbar radiculopathy Malaise and fatigue Morbid obesity Multiple falls FELIPE (nonalcoholic steatohepatitis) Nonsustained paroxysmal ventricular tachycardia (12/2020) Osteoarthritis of ankle and foot PAF (paroxysmal atrial fibrillation) Periprosthetic fracture around internal prosthetic joint Right hip pain Seborrhea of face SOB (shortness of breath) Stage 3b chronic kidney disease (CKD) Trimalleolar fracture of left ankle Unable to ambulate Venous insufficiency Vertigo, central Weakness Home Medications apixaban 5 mg tablet (Eliquis) 5 mg PO BID BLOOD THINNER 07/20/22 [History Last Taken 08/12/23] allopurinol 300 mg tablet 300 mg PO DAILY GOUT 11/04/22 [History Last Taken 08/12/23] tacrolimus 0.5 mg capsule, immediate-release 0.5 mg PO Q12H LIVER TRANSPLANT 11/06/22 [History Last Taken 08/12/23] nitroglycerin 0.4 mg sublingual tablet 0.4 mg sublingual Q5M PRN CHEST PAIN #25 tabs 11/27/22 [Rx Last Taken Unknown] citalopram 10 mg tablet 10 mg PO DAILY MOOD 02/08/23 [History Last Taken 08/12/23] amiodarone 200 mg tablet 200 mg PO DAILY BLOOD PRESSURE 02/14/23 [History Last Taken 08/12/23] ursodiol 300 mg capsule 300 mg PO BID GALLSTONES 02/14/23 [History Last Taken 08/12/23] prochlorperazine maleate 5 mg tablet 5 mg PO Q6H PRN NAUSEA/VOMITING 03/10/23 [History Last Taken 08/06/23] famotidine 20 mg tablet 20 mg PO Q12H ACID REFLUX 04/24/23 [History Last Taken 08/12/23] levothyroxine 25 mcg tablet 25 mcg PO DAILY THYROID 04/24/23 [History Last Taken 08/12/23] oxycodone 10 mg tablet 10 mg PO TID PRN BTP 04/24/23 [History Last Taken 08/12/23] polysaccharide iron complex 150 mg iron capsule (Ferrex) 150 mg PO DAILY supplment 05/14/23 [History Last Taken 08/12/23] potassium chloride 20 mEq tablet,extended release(part/cryst) (Klor-Con M) 20 meq PO DAILY help with potassium #30 tabs 05/18/23 [Rx Last Taken 08/12/23] bumetanide 2 mg tablet 2 mg PO DAILY water pill 05/31/23 [History Last Taken 08/12/23] hydrocortisone 10 mg tablet 10 mg PO .COMPLEX help with legs 06/05/23 [History Last Taken 08/12/23] metoprolol tartrate 25 mg tablet 12.5 mg PO BID heart 06/05/23 [History Last Taken 08/06/23] sacubitril 49 mg-valsartan 51 mg tablet (Entresto) 1 tab PO BID repair heart muscle 06/05/23 [History Last Taken 08/06/23] lactulose 20 gram/30 mL oral solution 20 g (30 mL) PO TID liver disease #1,200 mL 06/07/23 [Rx Last Taken 08/11/23] rifaximin 550 mg tablet (Xifaxan) 550 mg PO BID help with liver #60 tabs 06/07/23 [Rx Last Taken 08/12/23] sulfamethoxazole 400 mg-trimethoprim 80 mg tablet 1 tab PO DAILY liver transplant 07/25/23 [History Last Taken 08/12/23] Allergy/AdvReac Type Severity Reaction Status Date / Time morphine Allergy Hives Verified 08/12/23 15:48 pravastatin [From Pravachol] Allergy Hives Verified 08/12/23 15:48 Yosltfb-DUO-TsM Reductase Allergy Hives Verified 08/12/23 15:48 Inhibitor [Blfizja-Jhg-Can Reductase Inhibitor] vancomycin Allergy NEEDS Verified 08/12/23 15:48 FOLLOW-UP zolpidem tartrate Allergy Hives Verified 08/12/23 15:48 [From Ambien] everolimus AdvReac Swelling Verified 08/12/23 15:48 gabapentin AdvReac NEEDS Verified 08/12/23 15:48 FOLLOW-UP Family History Mother Heart disease Father Heart disease Surgical History H/O shoulder surgery History of cardioversion (02/02/21) History of cataract extraction with lens replacement (~11/22/22) History of hip surgery History of liver transplant Liver transplant recipient S/P PTCA (percutaneous transluminal coronary angioplasty) Status post liver transplant (07/2017) Social History household members: spouse Smoking Status: Never smoker alcohol intake: former substance use type: does not use caffeine: No ROS Review of Systems ROS Unobtainable: other Details: somnolent but arrousable. Family at bedside to contribute to history Constitutional Constitutional: Reports malaise and weakness; Denies chills or fever(s) Eyes Eyes: Denies loss of vision ENT HEENT: Denies nasal congestion Cardiovascular Cardiovascular: Reports leg edema; Denies chest pain Respiratory/Chest Respiratory/Chest: Denies dry cough or productive cough Gastrointestinal Gastrointestinal: Reports diarrhea; Denies abdominal pain, anorexia, nausea or vomiting Genitourinary Genitourinary: Denies change in urinary stream Musculoskeletal Musculoskeletal: Reports muscle weakness and other Details: left ankle fx s/p ORIF, NWB Neurologic Neurologic: Denies focal weakness Endocrine Endocrinology: Reports fatigue Hematologic/Lymphatic Hematologic/Lymphatic: Reports anemia Physical Exam Const alert and oriented x3 Constitutional Narrative: somnolent Nutritional Appearance: morbidly obese Resp clear to auscultation bilaterally Cardio regular rate GI non-tender and non-distended GI Narrative: obese Auscultation: normoactive bowel sounds Palpation: soft Bladder / Kidney Exam: catheter in place Back/Spine Back/Spine Narrative: gen weakness, Extremity General Extremity: edema bilateral (third spacing) Neuro Sensorium / Orientation: somnolent Psych cooperative Lab / Micro Data 08/13/23 07:55 08/13/23 07:55 Labs: Laboratory Results - last 24 hr 08/12/23 16:05: WBC 10.3, RBC 3.78 L, Hgb 11.9 L, Hct 37.9 L, MCV 100.3 H, MCH 31.5, MCHC 31.4 L D, RDW Std Deviation 66.8 H, RDW Coeff of Maciel 18.5 H, Plt Count 181, MPV 11.4, Immature Gran % (Auto) 1.100 H, Neut % (Auto) 87.5 H, Lymph % (Auto) 4.4 L, [place] % (Auto) 6.5, Eos % (Auto) 0.3, Baso % (Auto) 0.2, Absolute Neuts (auto) 9.0 H, Absolute Lymphs (auto) 0.45 L, Nucleated RBC % 0, Differential Comment , ESR 15, PT Cancelled, INR Cancelled, APTT Cancelled, Sodium 133 L, Potassium 5.5 H, Chloride 102, Carbon Dioxide 24.0, Anion Gap 7, BUN 81 H, Creatinine 3.32 H, Estim Creat Clear Calc 23.82, Est GFR (MDRD) Af Amer 24 L, Est GFR (MDRD) Non-Af 20 L, BUN/Creatinine Ratio 24.4 H, Glucose 281 H, Calcium 8.4 L, Total Bilirubin 0.60, AST 24, ALT 26, Alkaline Phosphatase 224 H, Ammonia 52.0 H, B-Natriuretic Peptide 389.6 H, Total Protein 5.0 L, Albumin 1.7 L, Globulin 3.3, Albumin/Globulin Ratio 0.5 L, Procalcitonin 0.15 H 08/12/23 16:39: PT 15.7 H, INR 1.2, APTT 26.7 08/12/23 17:02: Urine Color Yellow, Urine Clarity Clear, Urine pH 6.0, Ur Specific [place] 1.015, Urine Protein Negative, Urine Glucose (UA) Normal, Urine Ketones Negative, Urine Occult Blood Negative, Urine Nitrite Negative, Urine Bilirubin Negative, Urine Urobilinogen Normal, Ur Leukocyte Esterase Negative, Urine RBC 0 SEEN, Urine WBC 0 SEEN, Ur Squamous Epith Cells 0 SEEN, Urine Bacteria 0 SEEN, Urine Mucus 0 SEEN 08/12/23 19:45: Lactic Acid 2.8 H* 08/12/23 21:52: Sodium 133 L, Potassium 4.8, Chloride 103, Carbon Dioxide 24.0, Anion Gap 6, BUN 80 H, Creatinine 3.02 H, Estim Creat Clear Calc 26.19, Est GFR (MDRD) Af Amer 27 L, Est GFR (MDRD) Non-Af 22 L, BUN/Creatinine Ratio 26.5 H, Glucose 278 H, Calcium 7.6 L, C-React Prot Ext Range 4.80 H 08/12/23 23:00: Ur Random Sodium 7, Urine Creatinine 52.80, Urine Potassium 26.0, Urine Chloride < 10, Urine Urea Nitrogen 742 08/12/23 23:05: MRSA (PCR) Negative 08/13/23 00:51: Lactic Acid 1.8 08/13/23 07:55: WBC 10.6, RBC 3.44 L, Hgb 10.9 L, Hct 33.9 L, MCV 98.5 H, MCH 31.7, MCHC 32.2, RDW Std Deviation 66.5 H, RDW Coeff of Maciel 18.6 H, Plt Count 151, MPV 10.8, Differential Comment SCANNED ABG Data ABG results: ABG 08/12/23 20:15 Specimen Type ART Sample Site R Radial pH 7.47 H Bicarbonate Actual 22.0 Total CO2 23 Base Excess -2 O2 Saturation 98 ABG pCO2 30.0 L ABG pO2 92 Joshua Test Positive O2 Delivery Device Room Air Vent Mode Not entered Imagaing Radiology Impression Chest X-Ray 08/12/23 19:53 IMPRESSION: Left lower lobe retrocardiac infiltrate consistent with pneumonia. Recommend follow-up to complete resolution. Electronically Signed: Varinder Hansen MD at 20:30 EST ,
[2023-08-13 10:56] LABS: ALB/GLOB Ratio 0.6 RATIO (0.9-2.4); AST(SGOT) 18 U/L (15-37); Alanine Aminotransfer ALT/SGPT 25 U/L (16-61); Albumin, Serum 1.6 g/dL (3.2-5.0); Alkaline Phosphatase 189 U/L (45-117); Anion Gap 8 (5-15); BUN 80 mg/dL (7-18); BUN/Creat Ratio 26.8 RATIO (10-20); Calcium,Total 7.7 mg/dL (8.5-10.1); Chloride 105 mmol/L (98-107); Creatinine, Serum 2.98 mg/dL (0.70-1.30); EST Glomerular Filtration Rate 23 mL/min (>60); Est Glom Filt Rate - Afr Amer 28 mL/min (>60); Estimated Creatinine Clearance 26.54 ml/min; Globulin 2.6 g/dL (2.2-4.2); Glucose 249 mg/dL (74-106); Protein, Total 4.2 g/dL (6.4-8.2); Sodium Level 135 mmol/L (136-145); Thyroid Stim Hormone (TSH) 2.24 uIU/mL (0.358-3.74)
--- NOTE | 2023-08-13 11:01 | CASEMGMT ---
TCU will now take patient back at d/c. Kaley Riddle CORE INSERTERRaman SWEENEY
[2023-08-13 11:40] LABS: Troponin-I HS 116 pg/mL (3.0-78.0)
--- NOTE | 2023-08-13 13:29 | PCM.PROGNOTE ---
Subjective Subjective Patient seen and examined. He had no complaints and said he felt much better today. He denied any cough, chest pain, palpitations, dizziness, nausea, vomiting or any other symptoms. Review of systems is otherwise negative. Objective Data Objective Data Vital Signs: Vital Signs Temp Pulse Resp BP Pulse Ox O2 Del Method 97.7 F L 81 12 96/79 99 Room Air 08/13/23 13:21 08/13/23 13:14 08/13/23 13:14 08/13/23 13:14 08/13/23 13:14 08/13/23 07:16 Oxygen Delivery Method Room Air Weight: 412 lb 11.285 oz Body Mass Index (BMI) 59.2 Intake & Output: Intake and Output for Last 24 Hours 08/11/23 08/12/23 08/13/23 23:59 23:59 23:59 Intake Total 1599.09 / 1604.09 1790.49 / 1790.49 Output Total 350 / 350 Balance 1599.09 / 1604.09 1440.49 / 1440.49 Lab / Micro Data 08/13/23 07:55 08/13/23 07:55 Labs: Laboratory Results - last 24 hr 08/12/23 16:05: WBC 10.3, RBC 3.78 L, Hgb 11.9 L, Hct 37.9 L, MCV 100.3 H, MCH 31.5, MCHC 31.4 L D, RDW Std Deviation 66.8 H, RDW Coeff of Maciel 18.5 H, Plt Count 181, MPV 11.4, Immature Gran % (Auto) 1.100 H, Neut % (Auto) 87.5 H, Lymph % (Auto) 4.4 L, [place] % (Auto) 6.5, Eos % (Auto) 0.3, Baso % (Auto) 0.2, Absolute Neuts (auto) 9.0 H, Absolute Lymphs (auto) 0.45 L, Nucleated RBC % 0, Differential Comment , ESR 15, PT Cancelled, INR Cancelled, APTT Cancelled, Sodium 133 L, Potassium 5.5 H, Chloride 102, Carbon Dioxide 24.0, Anion Gap 7, BUN 81 H, Creatinine 3.32 H, Estim Creat Clear Calc 23.82, Est GFR (MDRD) Af Amer 24 L, Est GFR (MDRD) Non-Af 20 L, BUN/Creatinine Ratio 24.4 H, Glucose 281 H, Calcium 8.4 L, Total Bilirubin 0.60, AST 24, ALT 26, Alkaline Phosphatase 224 H, Ammonia 52.0 H, B-Natriuretic Peptide 389.6 H, Total Protein 5.0 L, Albumin 1.7 L, Globulin 3.3, Albumin/Globulin Ratio 0.5 L, Procalcitonin 0.15 H 08/12/23 16:39: PT 15.7 H, INR 1.2, APTT 26.7 08/12/23 17:02: Urine Color Yellow, Urine Clarity Clear, Urine pH 6.0, Ur Specific [place] 1.015, Urine Protein Negative, Urine Glucose (UA) Normal, Urine Ketones Negative, Urine Occult Blood Negative, Urine Nitrite Negative, Urine Bilirubin Negative, Urine Urobilinogen Normal, Ur Leukocyte Esterase Negative, Urine RBC 0 SEEN, Urine WBC 0 SEEN, Ur Squamous Epith Cells 0 SEEN, Urine Bacteria 0 SEEN, Urine Mucus 0 SEEN 08/12/23 19:45: Lactic Acid 2.8 H* 08/12/23 21:52: Sodium 133 L, Potassium 4.8, Chloride 103, Carbon Dioxide 24.0, Anion Gap 6, BUN 80 H, Creatinine 3.02 H, Estim Creat Clear Calc 26.19, Est GFR (MDRD) Af Amer 27 L, Est GFR (MDRD) Non-Af 22 L, BUN/Creatinine Ratio 26.5 H, Glucose 278 H, Calcium 7.6 L, C-React Prot Ext Range 4.80 H 08/12/23 23:00: Ur Random Sodium 7, Urine Creatinine 52.80, Urine Potassium 26.0, Urine Chloride < 10, Urine Urea Nitrogen 742 08/12/23 23:05: MRSA (PCR) Negative 08/13/23 00:51: Lactic Acid 1.8 08/13/23 07:55: WBC 10.6, RBC 3.44 L, Hgb 10.9 L, Hct 33.9 L, MCV 98.5 H, MCH 31.7, MCHC 32.2, RDW Std Deviation 66.5 H, RDW Coeff of Maciel 18.6 H, Plt Count 151, MPV 10.8, Differential Comment SCANNED, Sodium 135 L, Potassium 5.0, Chloride 105, Carbon Dioxide 22.0, Anion Gap 8, BUN 80 H, Creatinine 2.98 H, Estim Creat Clear Calc 26.54, Est GFR (MDRD) Af Amer 28 L, Est GFR (MDRD) Non-Af 23 L, BUN/Creatinine Ratio 26.8 H, Glucose 249 H, Calcium 7.7 L, Total Bilirubin 0.60, AST 18, ALT 25, Alkaline Phosphatase 189 H, Total Protein 4.2 L, Albumin 1.6 L, Globulin 2.6, Albumin/Globulin Ratio 0.6 L, TSH 2.24 08/13/23 11:10: Troponin I High Sens 116 H ABG Data ABG results: ABG 08/12/23 20:15 Specimen Type ART Sample Site R Radial pH 7.47 H Bicarbonate Actual 22.0 Total CO2 23 Base Excess -2 O2 Saturation 98 ABG pCO2 30.0 L ABG pO2 92 Joshua Test Positive O2 Delivery Device Room Air Vent Mode Not entered Radiography Diagnostic Testing: Radiology Impression Echocardiogram 08/12/23 19:32 Interpretation Summary Technically very difficult and limited study. LV systolic function appears to be normal. Ordering Physician: Sadie Salazar Referring Physician: Andrés Dave Performed By: Sadia Calzada RDCS Chest X-Ray 08/12/23 19:53 IMPRESSION: Left lower lobe retrocardiac infiltrate consistent with pneumonia. Recommend follow-up to complete resolution. Electronically Signed: Varinder Hansen MD at 20:30 EST , Physical Exam Const alert, oriented x3 and no apparent distress Constitutional Narrative: super morbid obesity HEENT normocephalic, head/scalp atraumatic, moist oral mucous membranes and oropharynx normal Eyes PERRL and EOMs intact bilaterally Neck no lymphadenopathy and supple Lymph Lymphatic: no lymphadenopathy noted and no lymphedema noted Resp Resp Narrative: mildly diminished breath sounds bibasally, no wheezes or crackles. On room air. Cardio regular rate, regular rhythm, S1 normal heart sound, S2 normal heart sound and no murmurs GI normal to inspection, nondistended, normoactive bowel sounds, soft to palpation, non-tender and non-distended GI Narrative: obese abdomen Extremity Extremity Narrative: LLE wrapped in bandage General Extremity: no tenderness to palpation of joints or extremities Skin General Skin Exam: no breakdown Neuro CN's II-XII intact bilaterally and no sensory deficits noted Motor Exam: general weakness Psych thought process normal and cooperative Assessment & Plan Assessment/Plan PLAN: Plan #AISSATOU on CKD IV with hyperkalemia Cr today is down to 2.98. Baseline Cr is mid 2 nephrology on board. making urine per nephrology, no recommendation for dialysis. Patient requesting palliative care had hyperkalemia which has now resolved; potassium is down to 5. #A-fib with RVR: Was tachycardic when he came in so was placed on Cardizem drip. Heart rate is now converted to normal sinus rhythm. Will DC Cardizem drip. Continue on amiodarone. On Eliquis. #Chest pain Was complaining of chest pain today. EKG showed no acute ST changes. Troponin series done showed troponin of 116 was subsequently trended down. 2D echo done today showed a technically very difficult study. Left ventricular systolic function appeared normal per cardiology. No further information could be obtained. Sublingual nitroglycerin as needed.. Aspirin 81 mg daily. Will monitor. #Recent left bimalleolar fracture due to mechanical fall. Had ORIF during his recent admission stable PT/OT on board #HFpEF: not in exacerbation. Has known EF of 65%. On bumex. #History of cirrhosis s/p liver transplant on tacrolimus, rifaximin and lactulose. on bactrim #Paroxysmal afib: on amiodarone and metoprolol. On eliquis #Hypothyroidism; on synthroid. #Depression; on citalopram #Super morbid obesity: BMI is 54. Complicates acute care, expected recovery and prognosis. #History of adrenal insufficiency: On hydrocortisone #History of left ear cancer: S/p resection. DVT prophylaxis: On Eliquis Charges/Coding Visit Charges Inpatient E&M: 02804 Subs Hosp L2
[2023-08-13 13:33] LABS: Troponin-I HS 106 pg/mL (3.0-78.0)
--- NOTE | 2023-08-13 16:02 | CASEMGMT ---
A [facility] business liaison officer came and spoke with patient and family per family's request. No hospice papers were signed as family wanted a second opinion. SW will check in with patient and his to check on the plan. Kaley SWEENEY
[2023-08-13] MEDS: proCHLORPERazine 10 MG/2 ML Vial 5 MG IV (16:50)
[2023-08-13] MEDS: 0.9% Saline Lock 10 ML Syringe IV (16:50)
[2023-08-13 17:25] LABS: Troponin-I HS 94 pg/mL (3.0-78.0)
[2023-08-13] MEDS: Hydrocortisone 10 MG Tablet PO (18:44)
[2023-08-14 03:35] VITALS: BP 128/57; PULSE 70; RESP 12; TEMP 36.5; O2SAT 100
[2023-08-14 05:19] VITALS: BMI 59.4
[2023-08-14 06:00] VITALS: BP 117/68; PULSE 70; RESP 14; TEMP 36.6; O2SAT 99
[2023-08-14] MEDS: Piperacil/Tazobactam 3.375 GM in 0.9% Normal Saline (50mL MB+) 50 ML IV ×2 (06:05→13:33)
[2023-08-14] MEDS: Lactulose 20 GM/30 ML UDC PO (06:05)
[2023-08-14] MEDS: Levothyroxine 25 MCG TABLET PO (06:05)
[2023-08-14] MEDS: 0.9% Normal Saline (1000mL) 1,000 ML 100 ML IV (06:11)
[2023-08-14 06:46] LABS: Absolute Lymphocyte Count 0.74 X10^3/uL (0.83-4.51); Absolute Neutrophil Count 7.9 X10^3/uL (2.0-7.7); Basophil# 0.02 X10^3/uL; Basophil% 0.2 % (0-1); Eosinophil# 0.03 X10^3/uL; Eosinophils% 0.3 % (0-5); Hematocrit 32.8 % (40-54); Hemoglobin 10.6 g/dL (13.0-16.5); Lymphocyte # 0.74 X10^3/ul (0.83-4.51); Lymphocyte % 7.9 % (19-41); Mean Corp Hgb Conc 32.3 g/dL (32-36); Mean Corpuscular Hgb 31.7 pg (27.0-32.0); Mean Corpuscular Volume 98.2 fL (80-94); Mean Platelet Vol. 11.1 fl (6.2-12.0); Monocyte# 0.62 X10^3/uL; Monocyte% 6.6 % (0-10); NRBC Flagged by Analyzer 0 % (0-5); Neutrophil # 7.88 X10^3/uL (2.7-7.7); Neutrophil % 83.7 % (47-70); POSITIVE MORPHOLOGY YES; Platelet Count 140 K/mm3 (150-450); RBC Distribution Width CV 18.2 % (11.6-14.6); RBC Distribution Width SD 65.1 fl (35.1-43.9); Red Blood Count 3.34 M/mm3 (4.6-6.2); White Blood Count 9.4 K/mm3 (4.4-11.0)
[2023-08-14 06:54] LABS: Differential Indicated SCAN CRITERIA MET
[2023-08-14 07:06] LABS: Anisocytosis 2+; Differential Comment SCANNED; Macrocytosis 1+; Microcytosis 1+
[2023-08-14 07:07] LABS: Polychromasia RARE
[2023-08-14 07:53] LABS: BUN 75 mg/dL (7-18); BUN/Creat Ratio 25.6 RATIO (10-20); Creatinine, Serum 2.93 mg/dL (0.70-1.30); EST Glomerular Filtration Rate 23 mL/min (>60); Est Glom Filt Rate - Afr Amer 28 mL/min (>60); Estimated Creatinine Clearance 26.99 ml/min; Glucose 292 mg/dL (74-106)
[2023-08-14 07:54] LABS: Anion Gap 6 (5-15); Calcium,Total 7.9 mg/dL (8.5-10.1); Chloride 106 mmol/L (98-107); Potassium 4.8 mmol/L (3.5-5.1); Sodium Level 136 mmol/L (136-145)
[2023-08-14] MEDS: Amiodarone 200 MG Tablet PO (08:24)
[2023-08-14] MEDS: Smz/Tmp Ds Tablet 0.5 TABLET PO (08:24)
[2023-08-14 08:25] VITALS: PULSE 93
[2023-08-14] MEDS: Hydrocortisone 10 MG Tablet 20 MG PO (08:25)
[2023-08-14] MEDS: Citalopram 10 MG Tablet PO (08:25)
[2023-08-14] MEDS: Metoprolol Tartrate 25 MG Tablet 12.5 MG PO (08:25)
[2023-08-14] MEDS: APIXABAN 5 MG TABLET PO (08:25)
[2023-08-14] MEDS: Allopurinol 300 MG Tablet PO (08:25)
[2023-08-14] MEDS: Ursodiol 250 MG Tablet PO (08:27)
[2023-08-14] MEDS: rifAXIMin 550 MG Tablet PO (08:27)
[2023-08-14] MEDS: Famotidine 20 MG Tablet PO (08:27)
[2023-08-14] MEDS: Tacrolimus 0.5 MG Capsule PO (08:27)
[2023-08-14] MEDS: proCHLORPERazine 5 MG Tablet PO (08:31)
[2023-08-14 08:45] VITALS: BP 126/74; PULSE 71; RESP 14; TEMP 36.5; O2SAT 99
--- NOTE | 2023-08-14 10:58 | CASEMGMT ---
Patient's asked to talk with TONY. SW met with patient and his . Patient asked SW if SW knows that he is dying. SW told patient physician did fill SW in on his current status. Patient said if he has 3 months to live he wants to go home. Patient's asked if home health could be set up. They would like nursing, PT, and an aide. SW let them know that SW will bring them a home health list. Patient's said they want [facility] as they have had them in the past and really like them. Patient said he really likes [facility] and . Patient said he would also like a bariatric bed. Patient's told patient that a bed won't be able to be set up and delivered today. Patient said that is fine. Patient also asked about a bariatric bedside commode. SW told them SW will pass this along to the supply chain development manager. OTNY updated RN CM. Kaley Riddle CARPET INSTALLATION SPECIALIST ZAHRA
--- NOTE | 2023-08-14 11:37 | CASEMGMT ---
SW made a referral to [facility] for chcf, PT, OT, and aide. Kaley SWEENEY
--- NOTE | 2023-08-14 11:56 | CPS ---
patient refuses IS and PEP. he states that he has the device at home, he knows how to use it, and doesn't want to do it here.
--- NOTE | 2023-08-14 12:08 | DS.PCM_ITS ---
Providers Date of Admission: 08/12/23 Date of Discharge: 08/14/23 Primary Care Physician: Dr. Lance Bose MD Consultations 08/12/23 21:43 Consult: Nephrology Routine Consulting Provider: Verenice Monae Reason for Consult: Worsening kidney function in CKD IV EMERGENT Consult: No Notified: Yes Date Notified: 08/13/23 Time Notified: 06:34 Method of Notification: Text 08/13/23 13:37 Consult: Hospice / Palliative Care Routine Consulting Provider: [facility] Reason for Consult: palliative EMERGENT Consult: No MD Notified: Yes Date Notified: 08/13/23 Time Notified: 13:37 Method of Notification: per case management 08/13/23 14:19 Consult: Hospice / Palliative Care Routine Consulting Provider: [facility] Reason for Consult: worsening CKD- palliative care consult EMERGENT Consult: No Notified: Yes Date Notified: 08/13/23 Time Notified: 14:19 Method of Notification: per casemanagement Reason For Visit: AISSATOU ON CKD Diagnosis Discharge Diagnosis (1) Acute on chronic kidney failure: Status: Resolved Code(s): N17.9 - Acute kidney failure, unspecified; N18.9 - Chronic kidney disease, unspecified Qualifiers: Chronic kidney disease stage 3 subtype: stage 3b (GFR 30-44) (2) CKD (chronic kidney disease), stage IV: Status: Chronic Code(s): N18.4 - Chronic kidney disease, stage 4 (severe) (3) Atrial fibrillation with RVR: Status: Acute Code(s): I48.91 - Unspecified atrial fibrillation (4) Trimalleolar fracture of left ankle: Status: Acute Code(s): S82.852A - Displaced trimalleolar fracture of left lower leg, initial encounter for closed fracture Qualifiers: Encounter type: initial encounter Fracture type: closed Qualified Code(s): S82.852A - Displaced trimalleolar fracture of left lower leg, initial encounter for closed fracture (5) Adrenal insufficiency: Status: Acute Code(s): E27.40 - Unspecified adrenocortical insufficiency (6) History of liver transplant: Status: Acute Code(s): Z94.4 - Liver transplant status (7) Debility: Status: Acute Code(s): R53.81 - Other malaise (8) Cirrhosis: Status: Chronic Code(s): K74.60 - Unspecified cirrhosis of liver Qualifiers: Ascites presence: without ascites Hepatic cirrhosis type: unspecified hepatic cirrhosis Qualified Code(s): K74.60 - Unspecified cirrhosis of liver (9) History of non-ST elevation myocardial infarction (NSTEMI): Status: Resolved Code(s): I25.2 - Old myocardial infarction Plan #AISSATOU on CKD IV with hyperkalemia * Cr today is down to 2.98. Baseline Cr is mid 2 * nephrology on board. * making urine * per nephrology, no recommendation for dialysis. Patient requesting palliative care * had hyperkalemia which has now resolved; potassium is down to 5. #A-fib with RVR: * Was tachycardic when he came in so was placed on Cardizem drip. * Heart rate is now converted to normal sinus rhythm. * Will DC Cardizem drip. * Continue on amiodarone. * On Eliquis. #Chest pain * Was complaining of chest pain today. EKG showed no acute ST changes. Troponin series done showed troponin of 116 was subsequently trended down. * 2D echo done today showed a technically very difficult study. Left ventricular systolic function appeared normal per cardiology. No further information could be obtained. * Sublingual nitroglycerin as needed.. Aspirin 81 mg daily. Will monitor. * #Recent left bimalleolar fracture * due to mechanical fall. Had ORIF during his recent admission * stable * PT/OT on board * * * #HFpEF: not in exacerbation. Has known EF of 65%. On bumex. #History of cirrhosis s/p liver transplant * on tacrolimus, rifaximin and lactulose. * on bactrim * #Paroxysmal afib: on amiodarone and metoprolol. On eliquis #Hypothyroidism; on synthroid. #Depression; on citalopram #Super morbid obesity: BMI is 54. Complicates acute care, expected recovery and prognosis. #History of adrenal insufficiency: On hydrocortisone #History of left ear cancer: S/p resection. DVT prophylaxis: On Eliquis Medications at Discharge Home Medications apixaban 5 mg tablet (Eliquis) 5 mg PO BID BLOOD THINNER 07/20/22 allopurinol 300 mg tablet 300 mg PO DAILY GOUT 11/04/22 tacrolimus 0.5 mg capsule, immediate-release 0.5 mg PO Q12H LIVER TRANSPLANT nitroglycerin 0.4 mg sublingual tablet 0.4 mg sublingual Q5M PRN CHEST PAIN #25 tabs 11/27/22 citalopram 10 mg tablet 10 mg PO DAILY MOOD 02/08/23 amiodarone 200 mg tablet 200 mg PO DAILY BLOOD PRESSURE 02/14/23 ursodiol 300 mg capsule 300 mg PO BID GALLSTONES 02/14/23 prochlorperazine maleate 5 mg tablet 5 mg PO Q6H PRN NAUSEA/VOMITING 03/10/23 famotidine 20 mg tablet 20 mg PO Q12H ACID REFLUX 04/24/23 levothyroxine 25 mcg tablet 25 mcg PO DAILY THYROID 04/24/23 polysaccharide iron complex 150 mg iron capsule (Ferrex) 150 mg PO DAILY supplment 05/14/23 bumetanide 2 mg tablet 2 mg PO DAILY water pill 05/31/23 hydrocortisone 10 mg tablet 10 mg PO .COMPLEX help with legs 06/05/23 metoprolol tartrate 25 mg tablet 12.5 mg PO BID heart 06/05/23 sacubitril 49 mg-valsartan 51 mg tablet (Entresto) 1 tab PO BID repair heart muscle 06/05/23 lactulose 20 gram/30 mL oral solution 20 g (30 mL) PO TID liver disease #1,200 mL 06/07/23 rifaximin 550 mg tablet (Xifaxan) 550 mg PO BID help with liver #60 tabs 06/07/23 sulfamethoxazole 400 mg-trimethoprim 80 mg tablet 1 tab PO DAILY liver transplant 07/25/23 oxycodone 10 mg tablet 10 mg PO TID PRN pain 5 days #15 tabs 08/14/23 Hospital Course Operations None Procedures None Summary of Care Provided Minutes Spent on Discharge: 50 Hospital Course: Patient is a 62-year-old male with an extensive past medical history as outlined which includes CKD stage IV, history of liver transplant due to cirrhosis, adrenal insufficiency and hypothyroidism as well as super morbid obesity and A- fib. He was admitted via the ED on 08/12/2023 from the transitional care unit on account of abnormal blood work. He had recently been in the hospital for a left bimalleolar fracture and had been discharged to TCU from where he was admitted after he had been there for about a week. His labs were checked and his creatinine was elevated at over 3. He also had elevated ammonia levels and BUN was also increased. Creatinine was 3.329. Potassium was also 5.5. Ammonia level was 52. He was also in A-fib with RVR so he was started on Cardizem drip. He was given potassium depleting cocktail and admitted and managed for hyperkalemia in the setting of AISSATOU on CKD stage IV and elevated ammonia levels. He was continued on his lactulose. Nephrology was consulted and evaluated patient. Creatinine trended down slightly to around 2.9. Nephrology counseled patient that he was not a candidate for dialysis and would benefit from palliative care or hospice. According to patient he was told by nephrology that he had 3 months to live. Hospice did evaluate patient but patient declined hospice services and preferred to seek a second opinion. He requested to be discharged home in order for him to be able to follow-up at the [facility] for second opinion about his kidney function. He was discharged on 08/14/2023. I did speak to Dr. Zamorano the slab lifting supervisor about any specific instruction for patient in light of his recent left by malleolar fracture. Podiatry recommended that patient follows up in the office to be fitted for an ankle boot. Patient was discharged on 08/14/2023. 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 Patient seen and examined prior to discharge. He had no active complaints and had an uneventful night. Review of systems otherwise negative. Labs and vitals reviewed. Home medication reviewed and reconciled. Physical Exam Const alert, oriented x3 and no apparent distress Constitutional Narrative: super morbid obesity General Appearance: cooperative and comfortable Orientation / Consciousness: awake Nutritional Appearance: morbidly obese HEENT normocephalic, head/scalp atraumatic, hearing grossly normal bilaterally, moist oral mucous membranes and oropharynx normal Eyes PERRL and EOMs intact bilaterally Neck no lymphadenopathy and supple Lymph Lymphatic: no lymphadenopathy noted and no lymphedema noted Resp Resp Narrative: mildly diminished breath sounds bibasally, no wheezes or crackles. On room air. Cardio regular rate, regular rhythm, S1 normal heart sound, S2 normal heart sound and no murmurs GI normal to inspection, nondistended, normoactive bowel sounds, soft to palpation, non-tender and non-distended GI Narrative: obese abdomen Extremity Extremity Narrative: LLE wrapped in bandage General Extremity: no tenderness to palpation of joints or extremities Skin General Skin Exam: no breakdown Neuro oriented x3, CN's II-XII intact bilaterally, moves all extremities and no sensory deficits noted Motor Exam: general weakness Psych thought process normal and cooperative Weight / BMI Weight Weight: 414 lb 7.504 oz Body Mass Index (BMI) 59.4 ABG / Lab / Microbiology Data 08/14/23 06:30 08/14/23 06:30 Laboratory: Laboratory Results - last 24 hr 08/13/23 13:05: Troponin I High Sens 106 H 08/13/23 16:55: Troponin I High Sens 94 H 08/14/23 06:30: WBC 9.4, RBC 3.34 L, Hgb 10.6 L, Hct 32.8 L, MCV 98.2 H, MCH 31.7, MCHC 32.3, RDW Std Deviation 65.1 H, RDW Coeff of Maciel 18.2 H, Plt Count 140 L, MPV 11.1, Immature Gran % (Auto) 1.300 H, Neut % (Auto) 83.7 H, Lymph % (Auto) 7.9 L, [place] % (Auto) 6.6, Eos % (Auto) 0.3, Baso % (Auto) 0.2, Absolute Neuts (auto) 7.9 H, Absolute Lymphs (auto) 0.74 L, Nucleated RBC % 0, Differential Comment SCANNED, Polychromasia RARE, Anisocytosis 2+, Microcytosis 1+, Macrocytosis 1+, Sodium 136, Potassium 4.8, Chloride 106, Carbon Dioxide 24.0, Anion Gap 6, BUN 75 H, Creatinine 2.93 H, Estim Creat Clear Calc 26.99, Est GFR (MDRD) Af Amer 28 L, Est GFR (MDRD) Non-Af 23 L, BUN/Creatinine Ratio 25.6 H, Glucose 292 H, Calcium 7.9 L Radiography Diagnostic Testing: Radiology Impression Echocardiogram 08/12/23 19:32 Interpretation Summary Technically very difficult and limited study. LV systolic function appears to be normal. Ordering Physician: Sadie Salazar Referring Physician: Andrés Dave Performed By: Sadia Calzada RDCS D/C Instructions Discharge Diet: Low fat / Low cholesterol Discharge Activity: Return to Normal Activity Weight Bearing Status: Weight bearing as tolerated Call your doctor if you observe: Fever of 101 or Higher, Shortness of breath and Swelling in the ankles Meaningful Use Info Meaningful Use Diagnoses (Choose all that apply): None applicable Discharge Plan Admission Admit Date/Time: 08/12/23 18:58 Primary Reason for Your Visit: AISSATOU on CKD3 Attending Provider: Breanne Barkley Primary Care Provider: Lance Bose Chi Consulting Providers: Sadie Salazar; Verenice Monae; Andrew David; Esperanza Colindres; Kori Yates; Michell Washington TRADING ANALYST Instructions Additional Instructions / Restrictions: To follow-up with Dr. Zamorano in the clinic to be fitted for a podiatry boot Discharge Orders/Prescriptions Prescriptions: New oxycodone 10 mg tablet 10 mg PO TID PRN (Reason: pain) 5 Days Qty: 15 0RF Continued nitroglycerin 0.4 mg tablet, sublingual 0.4 mg sublingual Q5M PRN (Reason: CHEST PAIN ) Qty: 25 1RF Rx Instructions: do not exceed 3 doses per episode lactulose 20 gram/30 mL solution 20 g PO TID Qty: 1200 11RF Xifaxan 550 mg tablet 550 mg PO BID Qty: 60 11RF bumetanide 2 mg tablet 2 mg PO DAILY hydrocortisone 10 mg tablet 10 mg PO .COMPLEX Rx Instructions: 10 mg orally; 2 tabs daily in the morning, then 1 tab daily in the evening. metoprolol tartrate 25 mg tablet 12.5 mg PO BID Patient Comments: TAKE 1 TABLET BY MOUTH TWICE DAILY Entresto 49-51 mg tablet 1 tab PO BID Eliquis 5 mg tablet 5 mg PO BID allopurinol 300 mg tablet 300 mg PO DAILY tacrolimus 0.5 mg capsule 0.5 mg PO Q12H citalopram 10 mg tablet 10 mg PO DAILY amiodarone 200 mg tablet 200 mg PO DAILY ursodiol 300 mg capsule 300 mg PO BID famotidine 20 mg Tablet 20 mg PO Q12H levothyroxine 25 mcg Tablet 25 mcg PO DAILY sulfamethoxazole-trimethoprim 400-80 mg tablet 1 tab PO DAILY Patient Comments: TAKE 1 TABLET BY MOUTH DAILY prochlorperazine maleate 5 mg Tablet 5 mg PO Q6H PRN (Reason: NAUSEA/VOMITING) polysaccharide iron complex [Ferrex 150] 150 mg iron capsule 150 mg PO DAILY Discontinued oxycodone 10 mg tablet 10 mg PO TID PRN (Reason: BTP) Patient Comments: FAMILY STATES PER DR SOLOMON PT MAY TAKE EVERY 6 HOURS potassium chloride [Klor-Con M20] 20 mEq tablet,ER particles/crystals 20 meq PO DAILY Qty: 30 0RF Hold Instructions: Ordered Referrals / Follow Up: Larry Zamorano DPM [Med Staff - Active Staff] - Within 1 Week Lance Bose Chi, MD [Primary Care Provider] - Within 2 Weeks Disposition Disposition (needs filled in before D/C Order can be placed): Home, Self Care Charges/Coding Visit Charges Inpatient E&M: 98821 Disch Hosp >30min
--- NOTE | 2023-08-14 12:15 | CASEMGMT ---
TONY and RN EDWARDO went to patient's room to discuss d/c plan. The plan was for patient to go home with home health. Patient has an appt next for his second opinion. Patient's family is expressing concern with patient returning home. Patient is expressing he wants to go home. It was explained to patient that going home is not a safe plan due to the amount of care he requires. Patient is upset and wants to go home, but he said he would do whatever family wants. Patient did say he does not want to go back to TCU. SW asked patient if he would like a list of other facilities that take his insurance. Patient said SW could bring it to him. Kaley Riddle MSW ZAHRA
--- NOTE | 2023-08-14 12:44 | PCM.PN.REN ---
Subjective Subjective remains in sinus rhythm with rate controlled. Pt adamant about going home. Appt with [facility] staple side laster for second opinion about prognosis, renal transplant, dialysis as outpt per pt. Objective Data Objective Data Vital Signs: Vital Signs Temp Pulse Resp BP Pulse Ox O2 Del Method 97.7 F L 71 14 126/74 H 99 Room Air 08/14/23 08:45 08/14/23 08:45 08/14/23 08:45 08/14/23 08:45 08/14/23 08:45 08/14/23 08:45 Oxygen Delivery Method Room Air Weight: 188 kg Body Mass Index (BMI) 59.4 Intake & Output: Intake and Output for Last 24 Hours 08/12/23 08/13/23 08/14/23 23:59 23:59 23:59 Intake Total 1599.09 / 1604.09 3960.49 / 3960.49 1855 / 1855 Output Total 1450 / 1450 1050 / 1050 Balance 1599.09 / 1604.09 2510.49 / 2510.49 805 / 805 Lab / Micro Data 08/14/23 06:30 08/14/23 06:30 Labs: Laboratory Results - last 24 hr 08/13/23 13:05: Troponin I High Sens 106 H 08/13/23 16:55: Troponin I High Sens 94 H 08/14/23 06:30: WBC 9.4, RBC 3.34 L, Hgb 10.6 L, Hct 32.8 L, MCV 98.2 H, MCH 31.7, MCHC 32.3, RDW Std Deviation 65.1 H, RDW Coeff of Maciel 18.2 H, Plt Count 140 L, MPV 11.1, Immature Gran % (Auto) 1.300 H, Neut % (Auto) 83.7 H, Lymph % (Auto) 7.9 L, [place] % (Auto) 6.6, Eos % (Auto) 0.3, Baso % (Auto) 0.2, Absolute Neuts (auto) 7.9 H, Absolute Lymphs (auto) 0.74 L, Nucleated RBC % 0, Differential Comment SCANNED, Polychromasia RARE, Anisocytosis 2+, Microcytosis 1+, Macrocytosis 1+, Sodium 136, Potassium 4.8, Chloride 106, Carbon Dioxide 24.0, Anion Gap 6, BUN 75 H, Creatinine 2.93 H, Estim Creat Clear Calc 26.99, Est GFR (MDRD) Af Amer 28 L, Est GFR (MDRD) Non-Af 23 L, BUN/Creatinine Ratio 25.6 H, Glucose 292 H, Calcium 7.9 L Radiography Diagnostic Testing: Radiology Impression Echocardiogram 08/12/23 19:32 Interpretation Summary Technically very difficult and limited study. LV systolic function appears to be normal. Ordering Physician: Sadie Salazar Referring Physician: Andrés Dave Performed By: Sadia Calzada RDCS Physical Exam Const alert and oriented x3 Nutritional Appearance: morbidly obese Cardio regular rate GI GI Narrative: morbidly obese Extremity General Extremity: edema bilateral upper extremity and lower extremity Assessment & Plan Assessment/Plan (1) Acute on chronic kidney failure: QUALIFIERS: Chronic kidney disease stage 3 subtype: stage 3b (GFR 30-44) PLAN: urine sodium 7, prerenal from afib with rvr, hypoalbuminemia albumin 1.6 low oncotic pressure, hypotension. Creatinine 2.98 today (2) CKD (chronic kidney disease), stage IV: PLAN: poor dialysis candidate due to multiple comorbidities, supermorbidly obesity, overall prognosis poor. Albumin 1.6 associated with increase morbidity. (3) Atrial fibrillation with RVR: PLAN: rate controlled, back in SR (4) Trimalleolar fracture of left ankle: QUALIFIERS: Encounter type: initial encounter Fracture type: closed Qualified Code(s): S82.852A - Displaced trimalleolar fracture of left lower leg, initial encounter for closed fracture (5) Adrenal insufficiency: PLAN: on cortef (6) History of liver transplant: (7) Debility: (8) Cirrhosis: QUALIFIERS: Ascites presence: without ascites Hepatic cirrhosis type: unspecified hepatic cirrhosis Qualified Code(s): K74.60 - Unspecified cirrhosis of liver PLAN: hepatic encephalopathy on xifaxin, lactulose (9) History of non-ST elevation myocardial infarction (NSTEMI):
--- NOTE | 2023-08-14 12:51 | PHA.DC_ITS ---
Pharmacy [facility] Reconciliation Pharmacy Service has performed discharge medication reconciliation for this patient. The patient's discharge medication list was reviewed for discrepancies and discrepancies were resolved. Medications at Discharge Home Medications apixaban 5 mg tablet (Eliquis) 5 mg PO BID BLOOD THINNER 07/20/22 allopurinol 300 mg tablet 300 mg PO DAILY GOUT 11/04/22 tacrolimus 0.5 mg capsule, immediate-release 0.5 mg PO Q12H LIVER TRANSPLANT 11/06/22 nitroglycerin 0.4 mg sublingual tablet 0.4 mg sublingual Q5M PRN CHEST PAIN #25 tabs 11/27/22 citalopram 10 mg tablet 10 mg PO DAILY MOOD 02/08/23 amiodarone 200 mg tablet 200 mg PO DAILY BLOOD PRESSURE 02/14/23 ursodiol 300 mg capsule 300 mg PO BID GALLSTONES 02/14/23 prochlorperazine maleate 5 mg tablet 5 mg PO Q6H PRN NAUSEA/VOMITING 03/10/23 famotidine 20 mg tablet 20 mg PO Q12H ACID REFLUX 04/24/23 levothyroxine 25 mcg tablet 25 mcg PO DAILY THYROID 04/24/23 polysaccharide iron complex 150 mg iron capsule (Ferrex) 150 mg PO DAILY supplment 05/14/23 bumetanide 2 mg tablet 2 mg PO DAILY water pill 05/31/23 hydrocortisone 10 mg tablet 10 mg PO .COMPLEX help with legs 06/05/23 metoprolol tartrate 25 mg tablet 12.5 mg PO BID heart 06/05/23 sacubitril 49 mg-valsartan 51 mg tablet (Entresto) 1 tab PO BID repair heart muscle 06/05/23 lactulose 20 gram/30 mL oral solution 20 g (30 mL) PO TID liver disease #1,200 mL 06/07/23 rifaximin 550 mg tablet (Xifaxan) 550 mg PO BID help with liver #60 tabs 06/07/23 sulfamethoxazole 400 mg-trimethoprim 80 mg tablet 1 tab PO DAILY liver transplant 07/25/23 oxycodone 10 mg tablet 10 mg PO TID PRN pain 5 days #15 tabs 08/14/23
--- NOTE | 2023-08-14 13:28 | CASEMGMT ---
SW provided patient with a a list of [facility] facility providers including quality and resource use data and consistent with patient?s preferred geographic region, medical needs, and insurance network were provided from the [employer] Guide. Patient was alone in the room. SW sat down and spoke with patient about his concerns with going back to TCU. Patient said he has been here for 13 days and is tired of being here. Patient said he just wants to go home. Patient said his is coming back in and they will talk. SW will check back with patient. [facility] has not called back yet. Kaley GRIFFINW??
[2023-08-14 14:45] VITALS: BP 134/63; PULSE 71; RESP 14; TEMP 36.6; O2SAT 100
--- NOTE | 2023-08-14 14:45 | CASEMGMT ---
SW went back to patient's room and patient's Sheba was present. Patient was sleeping. Sheba said patient is going home. TONY let Sheba know that [facility]OOKE is working on a script for a bariatric hospital bed and possibly bariatric bedside commode. Patient really needs a syd an other equipment in the home before he goes home, but patient is not willing to wait to get equipment ordered and in the home. TONY will work on transport and check with [facility]. Kaley Riddle SENIOR TECHNICAL WRITERRaman [place]
--- NOTE | 2023-08-14 15:10 | CASEMGMT ---
TONY received a voice mail from [facility] and they can take patient with a start date of tomorrow. SW notified patient and his his Sheba. TONY called Physicians and arranged for patient to get picked up at via cot. TONY notified RN, alumni secretary, patient, and his . TONY is not confident in this discharge plan, however patient is adamant he is going home. Plan: Home with [facility] Fdc, PT, OT, aide, and Social Work. Physicians transported patient home via cot. Kaley SWEENEY
[2023-08-14] MEDS: proCHLORPERazine 10 MG/2 ML Vial 5 MG IV (15:51)
--- NOTE | 2023-08-14 16:59 | CASEMGMT ---
ASHANTI BROOKE updated by TONY that patient would like bariatric bed and BSC at discharge. ASHANTI BROOKE discussed with family that setup could not happen today but [employer] would call to arrange delivery. Patient and family ok with discharging home with later delivery. Scripts received and [place] sent [place] [facility] [place] [employer] ASHANTI BROOKE updated SW.
[2023-08-16 01:06] LABS: Tacrolimus (FK506) 5.7 ng/mL (2.0-20.0)
== END 2023-08-14 17:32 | disposition home health service (06) | DRG 683 ==
LOC: ED 20:40 → PCU 20:51
PROVIDERS: Admitting Provider Internal Medicine; Emergency Provider Emergency Medicine; PCP Family Medicine Geriatric Medicine; Referring Provider Emergency Medicine; Visit Provider Student in an Organized Health Care Education/Training Program
DX: N17.9 Acute kidney failure, unspecified (principal); I13.0 Hypertensive heart and chronic kidney disease with heart failure and stage 1 through stage 4 chronic kidney disease, or unspecified chronic kidney disease; E27.40 Unspecified adrenocortical insufficiency; I50.32 Chronic diastolic (congestive) heart failure; E87.1 Hypo-osmolality and hyponatremia; Z68.43 Body mass index [BMI] 50.0-59.9, adult; Z94.4 Liver transplant status; K74.60 Unspecified cirrhosis of liver; I48.0 Paroxysmal atrial fibrillation; E86.0 Dehydration; N18.4 Chronic kidney disease, stage 4 (severe); E66.01 Morbid (severe) obesity due to excess calories; E03.9 Hypothyroidism, unspecified; F32.A Depression, unspecified; I25.10 Atherosclerotic heart disease of native coronary artery without angina pectoris; K21.9 Gastro-esophageal reflux disease without esophagitis; M10.9 Gout, unspecified; E87.5 Hyperkalemia; W19.XXXD Unspecified fall, subsequent encounter; E88.09 Other disorders of plasma-protein metabolism, not elsewhere classified; R07.9 Chest pain, unspecified; S82.852D Displaced trimalleolar fracture of left lower leg, subsequent encounter for closed fracture with routine healing; R53.81 Other malaise; Z79.52 Long term (current) use of systemic steroids; Z79.01 Long term (current) use of anticoagulants; Z79.2 Long term (current) use of antibiotics; Z79.899 Other long term (current) drug therapy
CPT/HCPCS: 36415; 36600; 71045; 80048; 80053; 80197; 81001; 82140; 82436; 82570; 82803; 83605; 83880; 84133; 84145; 84300; 84443; 84484; 84540; 85025; 85027; 85610; 85652; 85730; 86140; 87040; 87641; 93005; 93308; 94762; 99284; J7030; J7040; J7050; Q9957; A4216; C8924

== ENCOUNTER 2023-08-18 12:24 | Inpatient (IN) | payer MEDICARE, SELFPAY ==
[2023-08-18 12:25] VITALS: BP 89/44; PULSE 63; RESP 17; O2SAT 99
[2023-08-18 12:26] VITALS: BP 79/37; PULSE 62; RESP 12; TEMP 36.3; O2SAT 99; BMI 62.1
--- NOTE | 2023-08-18 12:53 | EX.ED.DYSGE1 ---
HPI History of Present Illness Chief Complaint: Edema Informant: patient and family Onset/Context/Timing Onset: Days Context: Gradual Onset Timing: Continuous Quality: Edema Location: Generalized Worsened by: Nothing Relieved by: Nothing Narrative Narrative: Patient presents with increased swelling that has been getting worse over the past several days. Family states the patient has a history of liver disease and kidney disease and was recently admitted to the hospital for his swelling. Patient states that since he was discharged he has gained a lot of water weight. Family states they are having difficulty helping him get around. Patient denies any chest pain or shortness of breath. Patient admits to some nausea but denies any vomiting. Patient denies any fevers or chills. Prior similar symptoms: Yes PFSH [facility] Medical History (HFpEF) heart failure with preserved ejection fraction Acidosis, lactic Acute hypotension Adrenal insufficiency Adult failure to thrive Anasarca Anemia of chronic disease Anxiety Ascites Atherosclerotic heart disease of [place] coronary artery without angina pectoris Atrial fibrillation Atrial flutter with rapid ventricular response (02/02/21) Bimalleolar avulsion fracture of left ankle BMI 50.0-59.9, adult CAD (coronary artery disease) Cancer of skin of left ear Cellulitis Chest pain Chronic anticoagulation Chronic diastolic congestive heart failure Chronic kidney disease, stage 3b CKD (chronic kidney disease), stage IV Closed left humeral fracture Coronary artery disease Debility Elevated troponin Gout History of non-ST elevation myocardial infarction (NSTEMI) (12/29/20) Hypertension Insomnia Iron deficiency anemia Kidney disease Lactic acidosis Lumbar radiculopathy Malaise and fatigue Morbid obesity Multiple falls FELIPE (nonalcoholic steatohepatitis) Nonsustained paroxysmal ventricular tachycardia (12/2020) Osteoarthritis of ankle and foot PAF (paroxysmal atrial fibrillation) Periprosthetic fracture around internal prosthetic joint Right hip pain Seborrhea of face SOB (shortness of breath) Stage 3b chronic kidney disease (CKD) Trimalleolar fracture of left ankle Unable to ambulate Venous insufficiency Vertigo, central Weakness Home Medications apixaban 5 mg tablet (Eliquis) 5 mg PO BID BLOOD THINNER 07/20/22 [History Last Taken 08/18/23] allopurinol 300 mg tablet 300 mg PO DAILY GOUT 11/04/22 [History Last Taken 08/18/23] tacrolimus 0.5 mg capsule, immediate-release 0.5 mg PO Q12H LIVER TRANSPLANT 11/06/22 [History Last Taken 08/18/23] nitroglycerin 0.4 mg sublingual tablet 0.4 mg sublingual Q5M PRN CHEST PAIN #25 tabs 11/27/22 [Rx Last Taken Unknown] citalopram 10 mg tablet 10 mg PO DAILY MOOD 02/08/23 [History Last Taken 08/18/23] amiodarone 200 mg tablet 200 mg PO DAILY BLOOD PRESSURE 02/14/23 [History Last Taken 08/18/23] ursodiol 300 mg capsule 300 mg PO BID GALLSTONES 02/14/23 [History Last Taken 08/18/23] prochlorperazine maleate 5 mg tablet 5 mg PO Q6H PRN NAUSEA/VOMITING 03/10/23 [History Last Taken 08/18/23] famotidine 20 mg tablet 20 mg PO Q12H ACID REFLUX 04/24/23 [History Last Taken 08/18/23] levothyroxine 25 mcg tablet 25 mcg PO DAILY THYROID 04/24/23 [History Last Taken 08/18/23] polysaccharide iron complex 150 mg iron capsule (Ferrex) 150 mg PO DAILY supplment 05/14/23 [History Last Taken 08/18/23] bumetanide 2 mg tablet 2 mg PO DAILY water pill 05/31/23 [History Last Taken 08/18/23] hydrocortisone 10 mg tablet 10 mg PO .COMPLEX help with legs 06/05/23 [History Last Taken 08/18/23] metoprolol tartrate 25 mg tablet 12.5 mg PO BID heart 06/05/23 [History Last Taken 08/18/23] sacubitril 49 mg-valsartan 51 mg tablet (Entresto) 1 tab PO BID repair heart muscle 06/05/23 [History Last Taken 08/18/23] lactulose 20 gram/30 mL oral solution 20 g (30 mL) PO TID liver disease #1,200 mL 06/07/23 [Rx Last Taken 08/18/23] rifaximin 550 mg tablet (Xifaxan) 550 mg PO BID help with liver #60 tabs 06/07/23 [Rx Last Taken 08/18/23] sulfamethoxazole 400 mg-trimethoprim 80 mg tablet 1 tab PO DAILY liver transplant 07/25/23 [History Last Taken 08/18/23] Allergy/AdvReac Type Severity Reaction Status Date / Time morphine Allergy Hives Verified 08/12/23 15:48 pravastatin [From Pravachol] Allergy Hives Verified 08/12/23 15:48 [id number] Reductase Allergy Hives Verified 08/12/23 15:48 Inhibitor [Kymhmin-Kwj-Dqm Reductase Inhibitor] vancomycin Allergy NEEDS Verified 08/12/23 15:48 FOLLOW-UP zolpidem tartrate Allergy Hives Verified 08/12/23 15:48 [From Ambien] everolimus AdvReac Swelling Verified 08/12/23 15:48 gabapentin AdvReac NEEDS Verified 08/12/23 15:48 FOLLOW-UP Family History Mother Heart disease Father Heart disease Surgical History H/O shoulder surgery History of cardioversion (02/02/21) History of cataract extraction with lens replacement (~11/22/22) History of hip surgery History of liver transplant Liver transplant recipient S/P PTCA (percutaneous transluminal coronary angioplasty) Status post liver transplant (07/2017) Social History household members: spouse Smoking Status: Never smoker alcohol intake: former substance use type: does not use caffeine: No ROS ROS ED Constitutional Constitutional ED: Denies chills or fever(s) Eyes Eyes: Denies blurry vision or change in vision ENT ENT ED: Denies rhinorrhea or sore throat Cardiovascular Cardiovascular: Denies chest pain or palpitations Respiratory/Chest Respiratory/Chest: Denies cough or dyspnea Gastrointestinal Gastrointestinal: Reports nausea; Denies vomiting Genitourinary Genitourinary ED: Denies dysuria or hematuria Musculoskeletal Musculoskeletal: Denies back pain or neck pain Integumentary Denies abscess or rash Neurologic Neurologic: Reports headache(s) and weakness Allergic/Immunologic Allergic/Immunologic ED: Denies mouth swelling or urticaria EXAM Physical Exam Const Vital Signs: 08/18/23 12:25 08/18/23 12:26 08/18/23 12:26 Temperature 97.3 F L Temperature Source Temporal Pulse Rate 63 62 Respiratory Rate 17 12 Respiratory Effort Short of Breath Respiratory Pattern Normal Blood Pressure 89/44 L 79/37 L Blood Pressure Mean 59 51 Pulse Ox 99 99 Oxygen Delivery Method Room Air Room Air 08/18/23 14:20 Temperature Temperature Source Pulse Rate 58 L Respiratory Rate 13 Respiratory Effort Respiratory Pattern Blood Pressure 71/49 L Blood Pressure Mean 56 Pulse Ox 100 Oxygen Delivery Method Room Air Positive well nourished, well developed and obese General Appearance ED: well developed and NAD Nutritional Appearance: obese HEENT Reports moist mucous membranes Neck supple and no JVD Chest Wall palpation of chest normal Resp normal respiratory effort Auscultation: diminished lung sounds diffuse Cardio regular rate and regular rhythm GI non-tender and non-distended Palpation: soft Extremity General Extremety ED: Yes edema General Extremity: edema Neuro oriented x3, CN's II-XII intact bilaterally and no sensory deficits noted Sensorium / Orientation: alert Psych mental status grossly normal MDM MDM MDM Narrative Medical decision making narrative: Differential diagnosis includes anasarca, cirrhosis, chronic kidney disease, anemia, electrolyte abnormality, infection, debility, and congestive heart failure. CBC will be obtained to assess for leukocytosis and anemia. Comprehensive metabolic profile will be obtained to assess for hepatic function, renal function, and electrolyte abnormality. BNP will be obtained to assess for congestive heart failure. High-sensitivity will be obtained to assess for cardiac ischemia. PT with INR and PTT will be obtained to assess for coagulopathy. EKG will be obtained to assess for cardiac dysrhythmia and cardiac ischemia. Lab Data Attestation: I reviewed the patient's lab results. Lab results narrative: CBC was reviewed. There is a mild anemia with a hemoglobin of 11.6 and hematocrit 36.0. Platelets were normal at 184. PT was INR and PTT were reviewed and were essentially within normal limits. Comprehensive metabolic profile was reviewed. BUN was 85 and creatinine was 3.69. These were increased slightly from previous result 4 days ago. The source of her pain remains high-sensitivity troponin was reviewed and was normal at 49. BNP was reviewed and was 130.4. This is improved compared to previous result. Urinalysis was reviewed. There is no evidence of urinary tract infection or hematuria. Labs: Laboratory Results - last 24 hr 08/18/23 08/18/23 13:20 14:45 WBC 7.1 RBC 3.60 L Hgb 11.6 L Hct 36.0 L MCV 100.0 H MCH 32.2 H MCHC 32.2 RDW Std Deviation 67.8 H RDW Coeff of [place]iel 18.6 H Plt Count 184 MPV 10.8 Immature Gran % (Auto) 1.300 H Neut % (Auto) 81.7 H Lymph % (Auto) 8.1 L [place] % (Auto) 8.4 Eos % (Auto) 0.4 Baso % (Auto) 0.1 Absolute Neuts (auto) 5.8 Absolute Lymphs (auto) 0.58 L Nucleated RBC % 0 Differential Comment SCANNED Anisocytosis 2+ Microcytosis 1+ Macrocytosis 1+ PT 14.9 INR 1.2 APTT 30.1 Sodium 136 Potassium 4.9 Chloride 106 Carbon Dioxide 24.0 Anion Gap 6 BUN 85 H Creatinine 3.69 H Estim Creat Clear Calc 21.43 Est GFR (MDRD) Af Amer 22 L Est GFR (MDRD) Non-Af 18 L BUN/Creatinine Ratio 23.0 H Glucose 336 H Calcium 8.1 L Total Bilirubin 0.50 AST 21 ALT 36 Alkaline Phosphatase 266 H Troponin I High Sens 49 B-Natriuretic Peptide 130.4 H Total Protein 4.7 L Albumin 1.5 L Globulin 3.2 Albumin/Globulin Ratio 0.5 L Urine Color Yellow Urine Clarity Clear Urine pH 5.0 Ur Specific [place] 1.020 Urine Protein Negative Urine Glucose (UA) Normal Urine Ketones Negative Urine Occult Blood Negative Urine Nitrite Negative Urine Bilirubin Negative Urine Urobilinogen Normal Ur Leukocyte Esterase Negative Urine RBC 0-5 SEEN Urine WBC 0 SEEN Ur Squamous Epith Cells 0 SEEN Urine Bacteria 0 SEEN Urine Mucus 0 SEEN Radiography Chest X-Ray - ED: 1 View, Read by ED Physician, Read by Radiologist and Left Effusion Diagnostic Testing: Clinical Impression(s) from Imaging Studies Chest X-Ray 08/18/23 12:59 IMPRESSION: Left pleural effusion. Electronically Signed: Joshua Fuentes MD at 14:21 EST , Portable 1 view chest x-ray was obtained. On my independent interpretation, lung toure show a left pleural effusion. There is normal cardiac silhouette. Bony thorax is normal. Radiologist also interpreted the x-ray and agrees. EKG Initial EKG: Attestation: I personally reviewed and interpreted this EKG as follows: Interpretation: Sinus Rhythm (With first-degree AV block with a rate of 60) and Non-Specific ST Changes Comments: EKG was obtained. On my independent interpretation, shows normal sinus rhythm with a first-degree AV block with a rate of 60. AR interval was prolonged at 226 ms. QRS interval was normal at 96 ms. QTc interval was normal at 424 ms. There is left axis deviation at -30. There are nonspecific ST-T wave changes noted. There are no acute changes noted. Prior EKG tracings: available for review Prior: Unchanged (08/12/2023) Management Discussion w/another healthcare provider: Hospitalist Treatment and Re-Evaluation :: Patient was given a 500 cc bolus of normal saline. Patient and family were advised of the findings. The blood pressure cuff was readjusted and the blood pressure was repeated. It was 93/53. Case was discussed with the hospitalist. He will admit the patient to PCU for observation. Patient and family understand and are agreeable with the plan. All questions were answered. Discharge Plan Triage Chief Complaint: Edema ED Provider: Claudio Phipps Dx/Rx/DC Orders Clinical Impression: CKD (chronic kidney disease), stage IV, BMI 50.0-59.9, adult, History of liver transplant, Debility Prescriptions: No Action nitroglycerin 0.4 mg tablet, sublingual 0.4 mg sublingual Q5M PRN (Reason: CHEST PAIN ) Qty: 25 1RF Rx Instructions: do not exceed 3 doses per episode lactulose 20 gram/30 mL solution 20 g PO TID Qty: 1200 11RF Xifaxan 550 mg tablet 550 mg PO BID Qty: 60 11RF bumetanide 2 mg tablet 2 mg PO DAILY hydrocortisone 10 mg tablet 10 mg PO .COMPLEX Rx Instructions: 10 mg orally; 2 tabs daily in the morning, then 1 tab daily in the evening. metoprolol tartrate 25 mg tablet 12.5 mg PO BID Patient Comments: TAKE 1 TABLET BY MOUTH TWICE DAILY Entresto 49-51 mg tablet 1 tab PO BID Eliquis 5 mg tablet 5 mg PO BID allopurinol 300 mg tablet 300 mg PO DAILY tacrolimus 0.5 mg capsule 0.5 mg PO Q12H citalopram 10 mg tablet 10 mg PO DAILY amiodarone 200 mg tablet 200 mg PO DAILY ursodiol 300 mg capsule 300 mg PO BID famotidine 20 mg Tablet 20 mg PO Q12H levothyroxine 25 mcg Tablet 25 mcg PO DAILY sulfamethoxazole-trimethoprim 400-80 mg tablet 1 tab PO DAILY Patient Comments: TAKE 1 TABLET BY MOUTH DAILY prochlorperazine maleate 5 mg Tablet 5 mg PO Q6H PRN (Reason: NAUSEA/VOMITING) polysaccharide iron complex [Ferrex 150] 150 mg iron capsule 150 mg PO DAILY Primary Care Provider: Lance Bose Chi Referrals: Lance Bose Chi, MD [Primary Care Provider] - Disposition Disposition: Acute Care Hospital [facility]
--- NOTE | 2023-08-18 12:59 | EKG12_ITS ---
Test Reason : Blood Pressure : / mmHG Vent. Rate : 060 BPM Atrial Rate : 060 BPM P-R Int : 226 ms QRS Dur : 096 ms QT Int : 424 ms P-R-T Axes : 051 -30 033 degrees QTc Int : 424 ms Sinus rhythm with 1st degree A-V block Left axis deviation Low voltage QRS Possible Anterolateral infarct , age undetermined Abnormal ECG Confirmed by SAHIL SHIPMAN, ROULA ([id number]), editorial specialist JULIO CÉSAR SOLORIO ([id number]) on 08/19/2023 1:02:17 PM Referred By: AMINA Confirmed By:ROULA BAXTER MD
--- NOTE | 2023-08-18 12:59 | RAD_ITS ---
EXAM: XR CHEST, 1 VIEW CLINICAL INDICATION: Dyspnea TECHNIQUE: Frontal view of the chest. COMPARISON: 08.12.23 FINDINGS: LUNGS AND PLEURAL SPACES: Unremarkable. No consolidation or edema. No pneumothorax. Left pleural effusion. HEART: Unremarkable. Cardiac silhouette not enlarged. MEDIASTINUM: Central airways and mediastinal contour are unremarkable. BONES/JOINTS: Total left shoulder arthroplasty. SOFT TISSUES: Unremarkable. RAD/Chest 1 View (Portable) IMPRESSION: Left pleural effusion. Electronically Signed: Joshua Fuentes MD at 14:21 EST ,
[2023-08-18] MEDS: 0.9% Normal Saline (500mL Bag) 500 ML 1000 ML IV (13:41)
[2023-08-18 13:45] LABS: Absolute Lymphocyte Count 0.58 X10^3/uL (0.83-4.51); Absolute Neutrophil Count 5.8 X10^3/uL (2.0-7.7); Basophil# 0.01 X10^3/uL; Basophil% 0.1 % (0-1); Eosinophil# 0.03 X10^3/uL; Eosinophils% 0.4 % (0-5); Hemoglobin 11.6 g/dL (13.0-16.5); Lymphocyte # 0.58 X10^3/ul (0.83-4.51); Lymphocyte % 8.1 % (19-41); Mean Corp Hgb Conc 32.2 g/dL (32-36); Mean Corpuscular Hgb 32.2 pg (27.0-32.0); Mean Platelet Vol. 10.8 fl (6.2-12.0); Monocyte% 8.4 % (0-10); NRBC Flagged by Analyzer 0 % (0-5); Neutrophil # 5.83 X10^3/uL (2.7-7.7); Neutrophil % 81.7 % (47-70); POSITIVE DIFFERENTIAL YES; POSITIVE MORPHOLOGY YES; Platelet Count 184 K/mm3 (150-450); RBC Distribution Width CV 18.6 % (11.6-14.6); RBC Distribution Width SD 67.8 fl (35.1-43.9); White Blood Count 7.1 K/mm3 (4.4-11.0)
[2023-08-18 13:48] LABS: BNP,B-Type NATRIURETIC PEPTIDE 130.4 pg/mL (0-100)
[2023-08-18 13:49] LABS: Differential Indicated SCAN CRITERIA MET; International Normalized Ratio 1.2; Prothrombin Time (Protime)PT. 14.9 SECONDS (11.7-14.9)
[2023-08-18 13:50] LABS: Partial Thromboplast Time 30.1 Seconds (24.1-36.2)
[2023-08-18 13:52] LABS: ALB/GLOB Ratio 0.5 RATIO (0.9-2.4); AST(SGOT) 21 U/L (15-37); Alanine Aminotransfer ALT/SGPT 36 U/L (16-61); Albumin, Serum 1.5 g/dL (3.2-5.0); Alkaline Phosphatase 266 U/L (45-117); Anion Gap 6 (5-15); BUN 85 mg/dL (7-18); Calcium,Total 8.1 mg/dL (8.5-10.1); Chloride 106 mmol/L (98-107); Creatinine, Serum 3.69 mg/dL (0.70-1.30); EST Glomerular Filtration Rate 18 mL/min (>60); Est Glom Filt Rate - Afr Amer 22 mL/min (>60); Estimated Creatinine Clearance 21.43 ml/min; Globulin 3.2 g/dL (2.2-4.2); Glucose 336 mg/dL (74-106); Potassium 4.9 mmol/L (3.5-5.1); Protein, Total 4.7 g/dL (6.4-8.2); Sodium Level 136 mmol/L (136-145); Troponin-I HS 49 pg/mL (3.0-78.0)
[2023-08-18 14:09] LABS: Anisocytosis 2+; Differential Comment SCANNED; Macrocytosis 1+; Microcytosis 1+
[2023-08-18 14:20] VITALS: BP 71/49; PULSE 58; RESP 13; O2SAT 100
[2023-08-18 15:00] LABS: Bacteria 0 SEEN /hpf (None Seen); Mucous, Urine 0 SEEN /hpf (<or=2+); Squamous Epithelial Cells - UA 0 SEEN /hpf (0-5); White Blood Cells 0 SEEN /hpf (0-5)
[2023-08-18 15:16] LABS: Color, Urine Yellow (Yellow); Glucose, Dipstick Normal (Normal); Ketone-Dipstick Negative (Negative); Leukocyte Esterase-Dipstick Negative /ul (Negative); Nitrite-Dipstick Negative (Negative); Occult Blood-Urine Negative /ul (Negative); Protein-Dipstick Negative (Negative); Urine Bilirubin Dipstick Negative (Negative); Urine Clarity Clear (Clear); Urine Urobilinogen Normal (Normal)
[2023-08-18 15:31] LABS: Red Blood Cells-Urine 0-5 SEEN /hpf (0-5)
--- NOTE | 2023-08-18 16:03 | HP.PCM.HOS_ITS ---
HPI - General General Date of Admission: 08/18/23 Date of Service: 08/18/23 Chief Complaint: Generalized swelling including arms and legs, fluid seepage HPI Narrative ESTEFANIA MILLER, is a 62 M with multiple comorbidities including super morbid obesity was brought by squad for complaint of leaking water from all over the body. Patient was recently admitted between 08/19-3 for AISSATOU on CKD4 with hyperkalemia, A-fib with RVR. Patient on Bumex 2 mg daily along with Entresto 49 to 51 mg twice daily. As per patient's and daughter near the bedside he sleeps all the time, somnolent along with the weight gain and increasing gener alized swelling. also said that he is soaked with the fluid and leaking water from all over. Patient does not complain of chest pain pressure or tightness. He also does not complain of chest congestion or new symptoms like cough or URI since discharge. Patient's hoping that he can go to TCU for rehab. Patient's said he is also waiting for hospital bed to arrive at home. Patient blood pressure is around 90s with the blood pressure cuff taken at rest at home and similarly here. said that when the blood pressure cuff is put around arm it is gets bruised. Wrist pressure was low 71/49 which improved to 101/48. Patient wakes up and give little bit history. Of note, patient also broke left bimalleolar fracture and had ORIF by Dr. Zamorano is supposed to give him boot next week. Labs, x-rays and EKG reviewed and discussed in assessment and plan. [facility] Medical History (HFpEF) heart failure with preserved ejection fraction Acidosis, lactic Acute hypotension Adrenal insufficiency Adult failure to thrive Anasarca Anemia of chronic disease Anxiety Ascites Atherosclerotic heart disease of red devil coronary artery without angina pectoris Atrial fibrillation Atrial flutter with rapid ventricular response (02/02/21) Bimalleolar avulsion fracture of left ankle BMI 50.0-59.9, adult CAD (coronary artery disease) Cancer of skin of left ear Cellulitis Chest pain Chronic anticoagulation Chronic diastolic congestive heart failure Chronic kidney disease, stage 3b CKD (chronic kidney disease), stage IV Closed left humeral fracture Coronary artery disease Debility Elevated troponin Gout History of non-ST elevation myocardial infarction (NSTEMI) (12/29/20) Hypertension Insomnia Iron deficiency anemia Kidney disease Lactic acidosis Lumbar radiculopathy Malaise and fatigue Morbid obesity Multiple falls FELIPE (nonalcoholic steatohepatitis) Nonsustained paroxysmal ventricular tachycardia (12/2020) Osteoarthritis of ankle and foot PAF (paroxysmal atrial fibrillation) Periprosthetic fracture around internal prosthetic joint Right hip pain Seborrhea of face SOB (shortness of breath) Stage 3b chronic kidney disease (CKD) Trimalleolar fracture of left ankle Unable to ambulate Venous insufficiency Vertigo, central Weakness Home Medications apixaban 5 mg tablet (Eliquis) 5 mg PO BID BLOOD THINNER 07/20/22 [History Last Taken 08/18/23] allopurinol 300 mg tablet 300 mg PO DAILY GOUT 11/04/22 [History Last Taken 08/02 03/24] tacrolimus 0.5 mg capsule, immediate-release 0.5 mg PO Q12H LIVER TRANSPLANT 11/06/22 [History Last Taken 08/18/23] nitroglycerin 0.4 mg sublingual tablet 0.4 mg sublingual Q5M PRN CHEST PAIN #25 tabs 11/27/22 [Rx Last Taken Unknown] citalopram 10 mg tablet 10 mg PO DAILY MOOD 02/08/23 [History Last Taken 08/18/23] amiodarone 200 mg tablet 200 mg PO DAILY BLOOD PRESSURE 02/14/23 [History Last Taken 08/18/23] ursodiol 300 mg capsule 300 mg PO BID GALLSTONES 02/14/23 [History Last Taken ] prochlorperazine maleate 5 mg tablet 5 mg PO Q6H PRN NAUSEA/VOMITING 03/10/23 [History Last Taken 08/18/23] famotidine 20 mg tablet 20 mg PO Q12H ACID REFLUX 04/24/23 [History Last Taken 08/18/23] levothyroxine 25 mcg tablet 25 mcg PO DAILY THYROID 04/24/23 [History Last Taken 08/18/23] polysaccharide iron complex 150 mg iron capsule (Ferrex) 150 mg PO DAILY supplment 05/14/23 [History Last Taken 08/18/23] bumetanide 2 mg tablet 2 mg PO DAILY water pill 05/31/23 [History Last Taken 08/18/23] hydrocortisone 10 mg tablet 10 mg PO .COMPLEX help with legs 06/05/23 [History Last Taken 08/18/23] metoprolol tartrate 25 mg tablet 12.5 mg PO BID heart 06/05/23 [History Last Taken 08/18/23] sacubitril 49 mg-valsartan 51 mg tablet (Entresto) 1 tab PO BID repair heart muscle 06/05/23 [History Last Taken 08/18/23] lactulose 20 gram/30 mL oral solution 20 g (30 mL) PO TID liver disease #1,200 mL 06/07/23 [Rx Last Taken 08/18/23] rifaximin 550 mg tablet (Xifaxan) 550 mg PO BID help with liver #60 tabs 06/07/23 [Rx Last Taken 08/18/23] sulfamethoxazole 400 mg-trimethoprim 80 mg tablet 1 tab PO DAILY liver transplant 07/25/23 [History Last Taken 08/18/23] Allergy/AdvReac Type Severity Reaction Status Date / Time morphine Allergy Hives Verified 08/12/23 15:48 pravastatin [From Pravachol] Allergy Hives Verified 08/12/23 15:48 Thwwzvr-[id number]-JyA Reductase Allergy Hives Verified 08/12/23 15:48 Inhibitor [Rsyxqep-Vhd-Wrv Reductase Inhibitor] vancomycin Allergy NEEDS Verified 08/12/23 15:48 FOLLOW-UP zolpidem tartrate Allergy Hives Verified 08/12/23 15:48 [From Ambien] everolimus AdvReac Swelling Verified 08/12/23 15:48 gabapentin AdvReac NEEDS Verified 08/12/23 15:48 FOLLOW-UP Family History Mother Heart disease Father Heart disease Surgical History H/O shoulder surgery History of cardioversion (02/02/21) History of cataract extraction with lens replacement (~11/22/22) History of hip surgery History of liver transplant Liver transplant recipient S/P PTCA (percutaneous transluminal coronary angioplasty) Status post liver transplant (07/2017) Social History household members: spouse Smoking Status: Never smoker alcohol intake: former substance use type: does not use caffeine: No ROS ROS Narrative 14 system ROS limited as patient is sleepy but wakes risk control specialist. ROS mainly collected from patient's and daughter near the bedside. Constitutional: Remains on the bed all the time. Nonweightbearing. No fever. HEENT: Reports systems reviewed and no addt'l complaints, except as documented Respiratory/Chest: No acute shortness of breath or respiratory distress or wheezing. Does not have BiPAP or CPAP at home. CVS: No chest pressure or tightness. History of chronic HFpEF Gastrointestinal: Denies coffee ground emesis, hematemesis or vomiting Genitourinary: Denies burning urination or new urinary tract symptoms Musculoskeletal: Recent left bimalleolar fracture after 2 days of Thanksgiving. Has cast on left foot. Neurologic: Denies seizure-like symptoms. Denies syncope. skin: Generalized seepage from from the all over the body. Endocrinology: Reports systems reviewed and no addt'l complaints, except as doc umented Hematologic/Lymphatic: Reports systems reviewed and no addt'l complaints, except as documented Rest 14 ROS are negative except as mentioned in HPI Vital Signs Vital Signs Vital Signs: 08/18/23 12:25 08/18/23 12:26 08/18/23 12:26 Temperature 97.3 F L Temperature Source Temporal Pulse Rate 63 62 Respiratory Rate 17 12 Respiratory Effort Short of Breath Respiratory Pattern Normal Blood Pressure 89/44 L 79/37 L Blood Pressure Mean 59 51 Pulse Ox 99 99 Oxygen Delivery Method Room Air Room Air 08/18/23 14:20 Temperature Temperature Source Pulse Rate 58 L Respiratory Rate 13 Respiratory Effort Respiratory Pattern Blood Pressure 71/49 L Blood Pressure Mean 56 Pulse Ox 100 Oxygen Delivery Method Room Air Weight Weight: 433 lb 6.861 oz Body Mass Index (BMI) 62.1 Physical Exam Narrative General: Awake but falls asleep easily, somnolent. Oriented x3, Cooperative, morbid obesity BMI 62.2 kg/m?. HEENT: Atraumatic, PERRLA, EOMI, Normocephalic Oral: Deep oropharyngeal could not be examined. Wide and short neck. Neck: Supple, No JVD, Negative Carotid Bruits Lungs: Air entry diminished in bilateral lung bases. No crepitation/rhonchi Cardiovascular: Regular rate, Regular Rhythm, Normal S1, Normal S2, No murmurs Abdomen: Status post liver transplant, surgical scar. Bowel Sounds Present, Soft, Non Tender, Non-Distended : No renal angle tenderness. No suprapubic tenderness. Extremities: Generalized swelling/edema of upper and lower extremities, abdomen., Capillary Refill Less than 3 Seconds Skin: Fluid seepage from the back. Did not see open ulcer and exposed area upper and lower extremity but could not examine back. Musculoskeletal: Patient could not put it back. Left lower leg in cast. Bimalleolar fracture status post ORIF. Neurological: Cranial nerves II-XII grossly intact, DTR 2+/4. No acute focal neurological deficit. Psych/Mental Status: Flat affect. Results Lab / Micro Data 08/18/23 13:20 08/18/23 13:20 Labs: Laboratory Results - last 24 hr 08/18/23 13:20: WBC 7.1, RBC 3.60 L, Hgb 11.6 L, Hct 36.0 L, MCV 100.0 H, MCH 32.2 H, MCHC 32.2, RDW Std Deviation 67.8 H, RDW Coeff of [place]iel 18.6 H, Plt Count 184, MPV 10.8, Immature Gran % (Auto) 1.300 H, Neut % (Auto) 81.7 H, Lymph % (Auto) 8.1 L, [place] % (Auto) 8.4, Eos % (Auto) 0.4, Baso % (Auto) 0.1, Absolute Neuts (auto) 5.8, Absolute Lymphs (auto) 0.58 L, Nucleated RBC % 0, Differential Comment SCANNED, Anisocytosis 2+, Microcytosis 1+, Macrocytosis 1+, PT 14.9, INR 1.2, APTT 30.1, Sodium 136, Potassium 4.9, Chloride 106, Carbon Dioxide 24.0, Anion Gap 6, BUN 85 H, Creatinine 3.69 H, Estim Creat Clear Calc 21.43, Est GFR (MDRD) Af Amer 22 L, Est GFR (MDRD) Non-Af 18 L, BUN/Creatinine Ratio 23.0 H, Glucose 336 H, Calcium 8.1 L, Total Bilirubin 0.50, AST 21, ALT 36, Alkaline Phosphatase 266 H, Troponin I High Sens 49, B-Natriuretic Peptide 130.4 H, Total Protein 4.7 L, Albumin 1.5 L, Globulin 3.2, Albumin/Globulin Ratio 0.5 L 08/18/23 14:45: Urine Color Yellow, Urine Clarity Clear, Urine pH 5.0, Ur Specific [place] 1.020, Urine Protein Negative, Urine Glucose (UA) Normal, Urine Ketones Negative, Urine Occult Blood Negative, Urine Nitrite Negative, Urine Bilirubin Negative, Urine Urobilinogen Normal, Ur Leukocyte Esterase Negative, Urine RBC 0-5 SEEN, Urine WBC 0 SEEN, Ur Squamous Epith Cells 0 SEEN, Urine Bacteria 0 SEEN, Urine Mucus 0 SEEN Imagaing Radiology Impression Chest X-Ray 08/18/23 12:59 IMPRESSION: Left pleural effusion. Electronically Signed: Joshua Fuentes MD at 14:21 EST , Assessment & Plan Assessment/Plan (1) Debility: (2) Acute on chronic heart failure with preserved ejection fraction (HFpEF): PLAN: Plan This 62-year-old gentleman with multiple comorbidities and super morbid obesity with recurrent admission came to ER for generalized swelling, fluid retention and seepage. 1. Acute on chronic HFpEF, anasarca with seepage of fluid:Patient is being admitted in PCU. Portable chest x-ray images reviewed, of optimal quality and shows underpenetration with left small effusion. Patient baseline blood pressure is around 90s probably due to inadequate cuff size and improper BP measurement. Lasix 40 mg IV ordered. Heart failure core measures including intake and output, fluid restriction less than 1500 mL, daily weight monitoring, kidney and electrolytes monitoring. Patient recently had echo which was technically difficult study with LV systolic function appears normal. No further information could be obtained. At 130. 2. AISSATOU on CKD stage IV: Patient baseline creatinine is around 2.5. Last BUNs/creatinine 75/2.93. Today's labs shows BUN/creatinine 85/3.69 with estimated creatinine clearance 21.43. Dr. Monae, her drinking water technician has been consulted. During previous hospitalization was recommended for dialysis. BMP shows normal electrolytes with anion gap 6. UA shows WBC 0, negative LE and nitrite. Specific gravity normal. 3. Paroxysmal A-fib: Twelve-lead EKG done in ED shows normal sinus rhythm first-degree AV block at 60 bpm, QTc 424 ms with LAD, low voltage QRS. No change from prior EKG of 08/13/2023. On amiodarone and metoprolol. On Eliquis. 4. Recent left bimalleolar fracture: Patient had mechanical fall to 3 days after Thanksgiving. Had ORIF during recent admission. Dr. Zamorano is being consulted. PT and OT. Patient is on nonweightbearing. 5. History of cirrhosis s/p liver transplant: Patient on tacrolimus rifaximin and lactulose. On Bactrim DS. Liver chemistry normal range except alkaline phosphatase high at 266 probably from bone origin. As per he is on minimal dose of tacrolimus, tacrolimus level and immunosuppressant being managed by economic development coordinator. 6. Hypothyroidism; on synthroid. Last TSH was in normal limit. 7. Depression; on citalopram 8. Super morbid obesity: BMI has increased recently probably from fluid retention, BMI 62.2 kg/m?. Complicates acute care, expected recovery and prognosis. 9. History of adrenal insufficiency: On hydrocortisone 10. History of left ear cancer: S/p resection. 11: Prediabetes: Last A1c 6.6 on 07/29/2023.Glucose in BMP is 336. Accu-Chek insulin coverage Humalog sliding scale. 11 DVT prophylaxis: On Eliquis Living will/advanced directive/end of life care: Patient does have living will or advanced directive. His is power of events specialist for health. After discussion of benefits/risks procedures involved with full code, DNR CC arrest and DNR CC, the patient and his opted for full code. As per , he initially wants all life-saving measures including intubation ventilator but does not want to prolong life on vent or if it becomes irreversible. During previous admission palliative care was also consulted. Patient does want artificial life support including intubation, tube feed, ventilator and/chest compression, central venous catheter, vasopressor and DC shock if needed Total time spent in [id number] encounter in discussion of advanced directive 17 minutes. Charges/Coding Visit Charges Inpatient E&M: 60209 Init Hosp L3 Procedures Hospitalists Procedures: 52786 Advncd Care Plan 30 Min
--- NOTE | 2023-08-18 16:03 | NURSING ---
DR CESAR HUYNH
--- NOTE | 2023-08-18 16:19 | NURSING ---
PCU OBS CESAR DEBILITY, PLEURAL EFFUSION, CHRONIC KIDNEY DISEASE
[2023-08-18 16:24] VITALS: BP 101/48; PULSE 60; RESP 18; O2SAT 98
[2023-08-18 16:36] LABS: Magnesium 2.2 mg/dL (1.6-2.6)
[2023-08-18 16:54] VITALS: BP 95/70; PULSE 62; RESP 18; TEMP 36.8; O2SAT 99; BMI 61.2
[2023-08-18] MEDS: 0.9% Saline Lock 10 ML Syringe IV (18:46)
[2023-08-18] MEDS: Furosemide 40 MG/4 ML Vial IV (18:46)
[2023-08-18] MEDS: APIXABAN 5 MG TABLET PO (21:41)
[2023-08-18] MEDS: rifAXIMin 550 MG Tablet PO (21:41)
[2023-08-18] MEDS: Lactulose 20 GM/30 ML UDC PO (21:41)
[2023-08-18] MEDS: Tacrolimus 0.5 MG Capsule PO (21:42)
[2023-08-18] MEDS: Ursodiol 250 MG Tablet PO (21:42)
[2023-08-18] MEDS: Insulin Lispro 100 UNIT/ML INSULN.PEN SC (22:04)
[2023-08-18 22:10] VITALS: BP 93/38; PULSE 61; RESP 18; TEMP 36.6; O2SAT 97
[2023-08-18] MEDS: oxyCODONE 5 MG Tablet 2.5 MG PO (22:22)
[2023-08-18 22:29] LABS: Bedside Glucose 314 mg/dL (74-106)
[2023-08-19] VITALS (8 sets, daily range): BP systolic 80–113; BP diastolic 38–58; PULSE 64–68; RESP 16–18; TEMP 36.2–36.7; O2SAT 98–99; BMI 61.2
[2023-08-19] MEDS: Levothyroxine 25 MCG TABLET PO (04:13)
[2023-08-19] MEDS: Lactulose 20 GM/30 ML UDC PO ×3 (04:13→20:44)
[2023-08-19] MEDS: proCHLORPERazine 5 MG Tablet PO ×2 (04:59→20:42)
[2023-08-19] MEDS: Insulin Lispro 100 UNIT/ML INSULN.PEN SC ×4 (06:25→21:22)
[2023-08-19 06:37] LABS: Absolute Lymphocyte Count 0.76 X10^3/uL (0.83-4.51); Absolute Neutrophil Count 5.7 X10^3/uL (2.0-7.7); Basophil# 0.01 X10^3/uL; Basophil% 0.1 % (0-1); Eosinophil# 0.01 X10^3/uL; Eosinophils% 0.1 % (0-5); Hematocrit 35.7 % (40-54); Hemoglobin 11.2 g/dL (13.0-16.5); Lymphocyte # 0.76 X10^3/ul (0.83-4.51); Lymphocyte % 10.6 % (19-41); Mean Corp Hgb Conc 31.4 g/dL (32-36); Mean Corpuscular Hgb 31.5 pg (27.0-32.0); Mean Corpuscular Volume 100.3 fL (80-94); Mean Platelet Vol. 11.1 fl (6.2-12.0); Monocyte% 8.4 % (0-10); NRBC Flagged by Analyzer 0 % (0-5); Neutrophil # 5.72 X10^3/uL (2.7-7.7); Neutrophil % 79.7 % (47-70); POSITIVE MORPHOLOGY YES; Platelet Count 172 K/mm3 (150-450); RBC Distribution Width CV 18.5 % (11.6-14.6); RBC Distribution Width SD 68.5 fl (35.1-43.9); Red Blood Count 3.56 M/mm3 (4.6-6.2); White Blood Count 7.2 K/mm3 (4.4-11.0)
[2023-08-19 06:43] LABS: Differential Indicated SCAN CRITERIA MET
[2023-08-19 06:44] LABS: Bedside Glucose 291 mg/dL (74-106)
[2023-08-19 06:47] LABS: Anion Gap 9 (5-15); BUN 89 mg/dL (7-18); BUN/Creat Ratio 24.9 RATIO (10-20); Calcium,Total 7.6 mg/dL (8.5-10.1); Chloride 109 mmol/L (98-107); Creatinine, Serum 3.57 mg/dL (0.70-1.30); EST Glomerular Filtration Rate 19 mL/min (>60); Est Glom Filt Rate - Afr Amer 22 mL/min (>60); Estimated Creatinine Clearance 22.15 ml/min; Glucose 308 mg/dL (74-106); Potassium 4.2 mmol/L (3.5-5.1); Sodium Level 139 mmol/L (136-145)
[2023-08-19 09:16] LABS: Anisocytosis 2+; Differential Comment SCANNED; Macrocytosis 1+; Microcytosis 1+
[2023-08-19] MEDS: APIXABAN 5 MG TABLET PO ×2 (10:30→20:44)
[2023-08-19] MEDS: Iron Polysaccharide Complex 150 MG CAPSULE PO (10:30)
[2023-08-19] MEDS: Citalopram 10 MG Tablet PO (10:30)
[2023-08-19] MEDS: Hydrocortisone 10 MG Tablet 20 MG PO (10:30)
[2023-08-19] MEDS: Allopurinol 300 MG Tablet PO (10:30)
[2023-08-19] MEDS: Tacrolimus 0.5 MG Capsule PO ×2 (10:30→20:51)
[2023-08-19] MEDS: Ursodiol 250 MG Tablet PO ×2 (10:30→20:52)
[2023-08-19] MEDS: rifAXIMin 550 MG Tablet PO ×2 (10:30→20:53)
[2023-08-19] MEDS: Smz/Tmp Ds Tablet 0.5 TABLET PO (10:30)
[2023-08-19] MEDS: Famotidine 20 MG Tablet PO (10:30)
[2023-08-19] MEDS: Furosemide 40 MG/4 ML Vial IV (11:53)
[2023-08-19 12:21] LABS: Bedside Glucose 271 mg/dL (74-106)
--- NOTE | 2023-08-19 13:27 | PN.HOSP_ITS ---
Subjective Subjective Doing well, breathing little bit easier today. Blood pressures are on the low side however it is unclear whether or not this is due to use or air given his body habitus and the need to check his blood pressures and his wrist he is not symptomatic Objective Data Objective Data Vital Signs: Vital Signs Temp Pulse Resp BP Pulse Ox O2 Del Method 97.4 F L 68 16 84/38 L 98 Room Air 08/19/23 11:58 08/19/23 11:58 08/19/23 11:58 08/19/23 11:58 08/19/23 11:58 08/19/23 11:58 Oxygen Delivery Method Room Air Weight: 427 lb 4.093 oz Body Mass Index (BMI) 61.2 Intake & Output: Intake and Output for Last 24 Hours 08/18/23 08/19/23 08/20/23 03:59 03:59 03:59 Intake Total 740 / 740 240 / 240 Output Total 250 / 250 150 / 150 Balance 490 / 490 90 / 90 Lab / Micro Data 08/19/23 05:20 08/19/23 05:20 Labs: Laboratory Results - last 24 hr 08/18/23 13:20: WBC 7.1, RBC 3.60 L, Hgb 11.6 L, Hct 36.0 L, MCV 100.0 H, MCH 32.2 H, MCHC 32.2, RDW Std Deviation 67.8 H, RDW Coeff of Maciel 18.6 H, Plt Count 184, MPV 10.8, Immature Gran % (Auto) 1.300 H, Neut % (Auto) 81.7 H, Lymph % (Auto) 8.1 L, [place] % (Auto) 8.4, Eos % (Auto) 0.4, Baso % (Auto) 0.1, Absolute Neuts (auto) 5.8, Absolute Lymphs (auto) 0.58 L, Nucleated RBC % 0, Differential Comment SCANNED, Anisocytosis 2+, Microcytosis 1+, Macrocytosis 1+, PT 14.9, INR 1.2, APTT 30.1, Sodium 136, Potassium 4.9, Chloride 106, Carbon Dioxide 24.0, Anion Gap 6, BUN 85 H, Creatinine 3.69 H, Estim Creat Clear Calc 21.43, Est GFR (MDRD) Af Amer 22 L, Est GFR (MDRD) Non-Af 18 L, BUN/Creatinine Ratio 23.0 H, Glucose 336 H, Calcium 8.1 L, Magnesium 2.2, Total Bilirubin 0.50, AST 21, ALT 36, Alkaline Phosphatase 266 H, Troponin I High Sens 49, B-Natriuretic Peptide 130.4 H, Total Protein 4.7 L, Albumin 1.5 L, Globulin 3.2, Albumin/Globulin Ratio 0.5 L 08/18/23 14:45: Urine Color Yellow, Urine Clarity Clear, Urine pH 5.0, Ur Specific [place] 1.020, Urine Protein Negative, Urine Glucose (UA) Normal, Urine Ketones Negative, Urine Occult Blood Negative, Urine Nitrite Negative, Urine Bilirubin Negative, Urine Urobilinogen Normal, Ur Leukocyte Esterase Negative, Urine RBC 0-5 SEEN, Urine WBC 0 SEEN, Ur Squamous Epith Cells 0 SEEN, Urine Bacteria 0 SEEN, Urine Mucus 0 SEEN 08/18/23 21:40: POC Glucose 314 H 08/19/23 05:20: WBC 7.2, RBC 3.56 L, Hgb 11.2 L, Hct 35.7 L, MCV 100.3 H, MCH 31.5, MCHC 31.4 L, RDW Std Deviation 68.5 H, RDW Coeff of Maciel 18.5 H, Plt Count 172, MPV 11.1, Immature Gran % (Auto) 1.100 H, Neut % (Auto) 79.7 H, Lymph % (Auto) 10.6 L, [place] % (Auto) 8.4, Eos % (Auto) 0.1, Baso % (Auto) 0.1, Absolute Neuts (auto) 5.7, Absolute Lymphs (auto) 0.76 L, Nucleated RBC % 0, Differential Comment SCANNED, Anisocytosis 2+, Microcytosis 1+, Macrocytosis 1+, Sodium 139, Potassium 4.2, Chloride 109 H, Carbon Dioxide 21.0, Anion Gap 9, BUN 89 H, Creatinine 3.57 H, Estim Creat Clear Calc 22.15, Est GFR (MDRD) Af Amer 22 L, Est GFR (MDRD) Non-Af 19 L, BUN/Creatinine Ratio 24.9 H, Glucose 308 H, Calcium 7.6 L 08/19/23 06:24: POC Glucose 291 H 08/19/23 12:00: POC Glucose 271 H Radiography Diagnostic Testing: Radiology Impression Chest X-Ray 08/18/23 12:59 IMPRESSION: Left pleural effusion. Electronically Signed: Joshua Fuentes MD at 14:21 EST , Physical Exam Narrative General: Alert, Oriented x3, Cooperative, No apparent distress, morbidly obese HEENT: Atraumatic, PERRLA, EOMI, Normocephalic Oral: Moist Mucosa Neck: Supple, No JVD Lungs: Diminished, Normal air movement, No rhonchi, No wheeze, No rales Cardiovascular: Regular rate, Regular Rhythm, Normal S1, Normal S2, No murmurs Abdomen: Soft, Non Tender, Non-Distended, No Hepato-splenomegaly Extremities: Edema, Capillary Refill Less than 3 Seconds, cast on his left foot after fracture Skin: No rashes, No breakdown Musculoskeletal: No Tenderness to Palpation of Joints or Extremities Neurological: Cranial nerves II-XII grossly intact, Motor Exam 5/5 strength throughout, Sensory exam intact to light touch and pain Psych/Mental Status: Normal Affect, Appropriate Assessment & Plan Assessment/Plan (1) Debility: (2) Acute on chronic heart failure with preserved ejection fraction (HFpEF): PLAN: Plan 1. Acute on chronic HFpEF, anasarca with seepage of fluid:Patient is being admitted in PCU. Portable chest x-ray images reviewed, of optimal quality and shows underpenetration with left small effusion. Patient baseline blood pressure is around 90s probably due to inadequate cuff size and improper BP measurement. Lasix 40 mg IV ordered. Heart failure core measures including intake and output, fluid restriction less than 1500 mL, daily weight monitoring, kidney and electrolytes monitoring. Patient recently had echo which was technically difficult study with LV systolic function appears normal. No further information could be obtained. At 130. 08/19/2023: We will continue with IV Lasix and monitor his blood pressure and his renal function 2. AISSATOU on CKD stage IV: Patient baseline creatinine is around 2.5. Last BUNs/creatinine 75/2.93. Today's labs shows BUN/creatinine 85/3.69 with estimated creatinine clearance 21.43. Dr. Monae, her surface water technician has been consulted. During previous hospitalization was recommended for dialysis. BMP shows normal electrolytes with anion gap 6. UA shows WBC 0, negative LE and nitrite. Specific gravity normal. 08/19/2023: Renal function does appear to be improving with diuresis, he states that he gets a better response from Bumex?with Lasix 3. Paroxysmal A-fib: Twelve-lead EKG done in ED shows normal sinus rhythm first-degree AV block at 60 bpm, QTc 424 ms with LAD, low voltage QRS. No change from prior EKG of 08/13/2023. On amiodarone and metoprolol. On Eliquis. 4. Recent left bimalleolar fracture: Patient had mechanical fall to 3 days after Thanksgiving. Had ORIF during recent admission. Dr. Zamorano is being consulted. PT and OT. Patient is on nonweightbearing. 08/19/2023: 11 evaluated by PT and OT as he was here recently and discharged home to evaluate him for possible SNF placement. Will also reach out to podiatry to see if the transition to a boot can be done while he is here in the hospital. 5. History of cirrhosis s/p liver transplant: Patient on tacrolimus rifaximin and lactulose. On Bactrim DS. Liver chemistry normal range except alkaline phosphatase high at 266 probably from bone origin. As per he is on minimal dose of tacrolimus, tacrolimus level and immunosuppressant being managed by international exchange coordinator. 6. Hypothyroidism; on synthroid. Last TSH was in normal limit. 7. Depression; on citalopram 8. Super morbid obesity: BMI has increased recently probably from fluid retention, BMI 62.2 kg/m?. Complicates acute care, expected recovery and prognosis. 9. History of adrenal insufficiency: On hydrocortisone 10. History of left ear cancer: S/p resection. 11: Prediabetes: Last A1c 6.6 on 07/29/2023.Glucose in BMP is 336. Accu-Chek insulin coverage Humalog sliding scale. DVT: Eliquis Charges/Coding Visit Charges Inpatient E&M: 12519 Subs Hosp L2
[2023-08-19] MEDS: SACUBITRIL/VALSARTAN 49-51 MG TABLET 1 EACH PO ×2 (13:46→20:45)
[2023-08-19] MEDS: Amiodarone 200 MG Tablet PO (13:47)
--- NOTE | 2023-08-19 14:53 | CON.PCM_ITS ---
Assessment & Plan Assessment/Plan (1) Trimalleolar fracture of left ankle: QUALIFIERS: Encounter type: initial encounter Fracture type: closed Qualified Code(s): S82.852A - Displaced trimalleolar fracture of left lower leg, initial encounter for closed fracture PLAN: Exam performed Left ankle x-rays ordered [place] aseptically removed Recommend compression left lower extremity to prevent edema which may prevent patient from being able to fit in his cam walking boot Dispensed cam walking boot today to left lower extremity ankle fracture site (L4361) adequate fit noted wound was applied to the left lower extremity. All appropriate paperwork was signed. Pending left ankle x-rays patient can start to be bear approximately 25% body weight assisted by walker with physical therapy supervision. HPI Consult Data Date of Consult: 08/19/23 HPI Narrative HPI Narrative: ESTEFANIA MILLER, is a 62 M who presents for fluid overload in setting of kidney failure. Patient underwent left ankle ORIF 3 weeks prior. Denies constitutional symptoms. Denies pain. Has been nonweightbearing since that time. Patient has predominantly low ambulatory status at home prior to ankle fracture. [facility] Medical History (HFpEF) heart failure with preserved ejection fraction Acidosis, lactic Acute hypotension Adrenal insufficiency Adult failure to thrive Anasarca Anemia of chronic disease Anxiety Ascites Atherosclerotic heart disease of [place] coronary artery without angina pectoris Atrial fibrillation Atrial flutter with rapid ventricular response (02/02/21) Bimalleolar avulsion fracture of left ankle BMI 50.0-59.9, adult CAD (coronary artery disease) Cancer of skin of left ear Cellulitis Chest pain Chronic anticoagulation Chronic diastolic congestive heart failure Chronic kidney disease, stage 3b CKD (chronic kidney disease), stage IV Closed left humeral fracture Coronary artery disease Debility Elevated troponin Gout History of non-ST elevation myocardial infarction (NSTEMI) (12/29/20) Hypertension Insomnia Iron deficiency anemia Kidney disease Lactic acidosis Lumbar radiculopathy Malaise and fatigue Morbid obesity Multiple falls FELIPE (nonalcoholic steatohepatitis) Nonsustained paroxysmal ventricular tachycardia (12/2020) Osteoarthritis of ankle and foot PAF (paroxysmal atrial fibrillation) Periprosthetic fracture around internal prosthetic joint Right hip pain Seborrhea of face SOB (shortness of breath) Stage 3b chronic kidney disease (CKD) Trimalleolar fracture of left ankle Unable to ambulate Venous insufficiency Vertigo, central Weakness Home Medications apixaban 5 mg tablet (Eliquis) 5 mg PO BID BLOOD THINNER 07/20/22 [History Last Taken 08/18/23] allopurinol 300 mg tablet 300 mg PO DAILY GOUT 11/04/22 [History Last Taken 08/18/23] tacrolimus 0.5 mg capsule, immediate-release 0.5 mg PO Q12H LIVER TRANSPLANT 11/06/22 [History Last Taken 08/18/23] nitroglycerin 0.4 mg sublingual tablet 0.4 mg sublingual Q5M PRN CHEST PAIN #25 tabs 11/27/22 [Rx Last Taken Unknown] citalopram 10 mg tablet 10 mg PO DAILY MOOD 02/08/23 [History Last Taken 08/18/23] amiodarone 200 mg tablet 200 mg PO DAILY BLOOD PRESSURE 02/14/23 [History Last Taken 08/18/23] ursodiol 300 mg capsule 300 mg PO BID GALLSTONES 02/14/23 [History Last Taken 08/18/23] prochlorperazine maleate 5 mg tablet 5 mg PO Q6H PRN NAUSEA/VOMITING 03/10/23 [History Last Taken 08/18/23] famotidine 20 mg tablet 20 mg PO Q12H ACID REFLUX 04/24/23 [History Last Taken 08/18/23] levothyroxine 25 mcg tablet 25 mcg PO DAILY THYROID 04/24/23 [History Last Taken 08/18/23] polysaccharide iron complex 150 mg iron capsule (Ferrex) 150 mg PO DAILY supplment 05/14/23 [History Last Taken 08/18/23] bumetanide 2 mg tablet 2 mg PO DAILY water pill 05/31/23 [History Last Taken 08/18/23] hydrocortisone 10 mg tablet 10 mg PO .COMPLEX help with legs 06/05/23 [History Last Taken 08/18/23] metoprolol tartrate 25 mg tablet 12.5 mg PO BID heart 06/05/23 [History Last Taken 08/18/23] sacubitril 49 mg-valsartan 51 mg tablet (Entresto) 1 tab PO BID repair heart muscle 06/05/23 [History Last Taken 08/18/23] lactulose 20 gram/30 mL oral solution 20 g (30 mL) PO TID liver disease #1,200 mL 06/07/23 [Rx Last Taken 08/18/23] rifaximin 550 mg tablet (Xifaxan) 550 mg PO BID help with liver #60 tabs 06/07/23 [Rx Last Taken 08/18/23] sulfamethoxazole 400 mg-trimethoprim 80 mg tablet 1 tab PO DAILY liver transplant 07/25/23 [History Last Taken 08/18/23] Allergy/AdvReac Type Severity Reaction Status Date / Time morphine Allergy Hives Verified 08/12/23 15:48 pravastatin [From Pravachol] Allergy Hives Verified 08/12/23 15:48 Zxrmkga-BMT-AiR Reductase Allergy Hives Verified 08/12/23 15:48 Inhibitor [Uyajpxa-Wcp-Pcy Reductase Inhibitor] vancomycin Allergy NEEDS Verified 08/12/23 15:48 FOLLOW-UP zolpidem tartrate Allergy Hives Verified 08/12/23 15:48 [From Ambien] everolimus AdvReac Swelling Verified 08/12/23 15:48 gabapentin AdvReac NEEDS Verified 08/12/23 15:48 FOLLOW-UP Family History Mother Heart disease Father Heart disease Surgical History H/O shoulder surgery History of cardioversion (02/02/21) History of cataract extraction with lens replacement (~11/22/22) History of hip surgery History of liver transplant Liver transplant recipient S/P PTCA (percutaneous transluminal coronary angioplasty) Status post liver transplant (07/2017) Social History household members: spouse Smoking Status: Never smoker alcohol intake: former substance use type: does not use caffeine: No Physical Exam Narrative Neurovascular status unchanged Skin incision to lateral medial ankle healed at this time after staple removal. No sign DVT bilateral lower extremity Left ankle is rectus with smooth passive range of motion minimal pain. Const alert and oriented x3 Lab / Micro Data 08/19/23 05:20 08/19/23 05:20 Labs: Laboratory Results - last 24 hr 08/18/23 13:20: Magnesium 2.2 08/18/23 14:45: Urine Color Yellow, Urine Clarity Clear, Urine pH 5.0, Ur Specific [place] 1.020, Urine Protein Negative, Urine Glucose (UA) Normal, Urine Ketones Negative, Urine Occult Blood Negative, Urine Nitrite Negative, Urine Bilirubin Negative, Urine Urobilinogen Normal, Ur Leukocyte Esterase Negative, Urine RBC 0-5 SEEN, Urine WBC 0 SEEN, Ur Squamous Epith Cells 0 SEEN, Urine Bacteria 0 SEEN, Urine Mucus 0 SEEN 08/18/23 21:40: POC Glucose 314 H 08/19/23 05:20: WBC 7.2, RBC 3.56 L, Hgb 11.2 L, Hct 35.7 L, MCV 100.3 H, MCH 31.5, MCHC 31.4 L, RDW Std Deviation 68.5 H, RDW Coeff of [place] 18.5 H, Plt Count 172, MPV 11.1, Immature Gran % (Auto) 1.100 H, Neut % (Auto) 79.7 H, Lymph % (Auto) 10.6 L, [place] % (Auto) 8.4, Eos % (Auto) 0.1, Baso % (Auto) 0.1, Absolute Neuts (auto) 5.7, Absolute Lymphs (auto) 0.76 L, Nucleated RBC % 0, Differential Comment SCANNED, Anisocytosis 2+, Microcytosis 1+, Macrocytosis 1+, Sodium 139, Potassium 4.2, Chloride 109 H, Carbon Dioxide 21.0, Anion Gap 9, BUN 89 H, Creatinine 3.57 H, Estim Creat Clear Calc 22.15, Est GFR (MDRD) Af Amer 22 L, Est GFR (MDRD) Non-Af 19 L, BUN/Creatinine Ratio 24.9 H, Glucose 308 H, Calcium 7.6 L 08/19/23 06:24: POC Glucose 291 H 08/19/23 12:00: POC Glucose 271 H
--- NOTE | 2023-08-19 15:00 | CASEMGMT ---
SW spoke with patient and his Sheba regarding d/c plan. Patient and Sheba said the physician told them patient would be in the hospital for 4 days. SW asked about the d/c plan. They would be okay with TCU. SW let them know TCU is not able to accept patient. Sheba said she will just take patient home. Patient asked what are other options. SW let him know [facility] b[facility]. (They are aware of [facility], but do not want [facility]). At this time the plan is home with resumption of [facility]. Kaley Riddle [employer]
[2023-08-19] MEDS: Metoprolol Tartrate 25 MG Tablet 12.5 MG PO (15:46)
--- NOTE | 2023-08-19 15:50 | RAD_ITS ---
STUDY: X-RAY - LEFT ANKLE REASON FOR EXAM: Male, 62 years old. left ankle fracture TECHNIQUE: 3 view(s) of the ankle. COMPARISON: 07/30/2023. FINDINGS: Diffuse osteopenia. Status post operative changes with fixation plate and multiple screws through the distal fibula. There are 2 screws through the medial malleolus with 2 transverse screws to the distal tibia and fibula. Normal anatomic alignment. Healing fracture of the distal tibia and fibula. Normal tibiotalar articulation and ankle mortise. Plantar calcaneal spur with mild enthesophyte at the Achilles tendon insertion site. Degenerative arthrosis through the talonavicular joint. Remainder of the tarsal joints are unremarkable. Normal anatomic alignment. Nonspecific soft tissue swelling through the distal calf, ankle and midfoot region. RAD/Ankle min 3 Views IMPRESSION: Postoperative changes as described with healing fracture of the distal tibia and fibula. Normal alignment. Nonspecific soft tissue swelling as described. Electronically Signed: Brenda Lam MD at 16:59 EST ,
--- NOTE | 2023-08-19 16:21 | CASEMGMT ---
ASHANTI CM in to complete MOCK form with patient. RN EDWARDO explained MOCK Form to patient, patient voiced understanding. Patient signed MOCK form and filed in chart. Patient provided with copy of signed MOCK Form. Patient had no further questions or concerns at this time.
[2023-08-19] MEDS: Hydrocortisone 10 MG Tablet PO (17:13)
[2023-08-19 18:29] LABS: Bedside Glucose 298 mg/dL (74-106)
[2023-08-19] MEDS: oxyCODONE 5 MG Tablet PO (20:42)
[2023-08-20] VITALS (11 sets, daily range): BP systolic 85–124; BP diastolic 38–106; PULSE 62–98; RESP 16–18; TEMP 36.3–37.2; O2SAT 97–100; BMI 61.3
[2023-08-20 01:15] LABS: Bedside Glucose 289 mg/dL (74-106)
[2023-08-20] MEDS: Levothyroxine 25 MCG TABLET PO (05:59)
[2023-08-20] MEDS: Lactulose 20 GM/30 ML UDC PO ×3 (05:59→22:38)
[2023-08-20 06:04] LABS: Absolute Lymphocyte Count 0.65 X10^3/uL (0.83-4.51); Absolute Neutrophil Count 5.6 X10^3/uL (2.0-7.7); Basophil# 0.01 X10^3/uL; Basophil% 0.1 % (0-1); Eosinophil# 0.02 X10^3/uL; Eosinophils% 0.3 % (0-5); Hematocrit 34.6 % (40-54); Lymphocyte # 0.65 X10^3/ul (0.83-4.51); Lymphocyte % 9.3 % (19-41); Mean Corp Hgb Conc 31.8 g/dL (32-36); Mean Corpuscular Hgb 32.1 pg (27.0-32.0); Mean Corpuscular Volume 100.9 fL (80-94); Mean Platelet Vol. 10.8 fl (6.2-12.0); Monocyte# 0.61 X10^3/uL; Monocyte% 8.8 % (0-10); NRBC Flagged by Analyzer 0 % (0-5); Neutrophil % 80.4 % (47-70); POSITIVE MORPHOLOGY YES; Platelet Count 161 K/mm3 (150-450); RBC Distribution Width CV 18.6 % (11.6-14.6); RBC Distribution Width SD 68.1 fl (35.1-43.9); Red Blood Count 3.43 M/mm3 (4.6-6.2)
[2023-08-20] MEDS: Insulin Lispro 100 UNIT/ML INSULN.PEN SC ×4 (06:08→23:07)
[2023-08-20] MEDS: oxyCODONE 5 MG Tablet PO (06:13)
[2023-08-20 06:20] LABS: Anion Gap 8 (5-15); BUN 94 mg/dL (7-18); BUN/Creat Ratio 25.4 RATIO (10-20); Calcium,Total 7.5 mg/dL (8.5-10.1); Chloride 110 mmol/L (98-107); EST Glomerular Filtration Rate 18 mL/min (>60); Est Glom Filt Rate - Afr Amer 22 mL/min (>60); Estimated Creatinine Clearance 21.37 ml/min; Glucose 279 mg/dL (74-106); Potassium 4.6 mmol/L (3.5-5.1); Sodium Level 138 mmol/L (136-145)
[2023-08-20 06:21] LABS: Differential Indicated SCAN CRITERIA MET
[2023-08-20 07:02] LABS: Bedside Glucose 277 mg/dL (74-106)
[2023-08-20 07:20] LABS: Anisocytosis 2+; Differential Comment SCANNED; Macrocytosis 1+
[2023-08-20] MEDS: Famotidine 20 MG Tablet PO (09:07)
[2023-08-20] MEDS: APIXABAN 5 MG TABLET PO ×2 (09:07→22:39)
[2023-08-20] MEDS: Hydrocortisone 10 MG Tablet 20 MG PO (09:07)
[2023-08-20] MEDS: rifAXIMin 550 MG Tablet PO ×2 (09:07→22:40)
[2023-08-20] MEDS: Smz/Tmp Ds Tablet 0.5 TABLET PO (09:07)
[2023-08-20] MEDS: Iron Polysaccharide Complex 150 MG CAPSULE PO (09:07)
[2023-08-20] MEDS: Ursodiol 250 MG Tablet PO ×2 (09:07→22:40)
[2023-08-20] MEDS: Allopurinol 300 MG Tablet PO (09:07)
[2023-08-20] MEDS: Citalopram 10 MG Tablet PO (09:09)
[2023-08-20] MEDS: Tacrolimus 0.5 MG Capsule PO ×2 (09:09→22:43)
[2023-08-20 12:17] LABS: Bedside Glucose 275 mg/dL (74-106)
--- NOTE | 2023-08-20 12:17 | PN.HOSP_ITS ---
Subjective Subjective No issues overnight, still hypotensive and his renal function worsened today to 3.7 after his Lasix yesterday Objective Data Objective Data Vital Signs: Vital Signs Temp Pulse Resp BP Pulse Ox O2 Del Method 97.5 F L 68 16 85/39 L 98 Room Air 08/20/23 09:01 08/20/23 09:01 08/20/23 09:01 08/20/23 11:57 08/20/23 09:01 08/20/23 09:01 Oxygen Delivery Method Room Air Weight: 427 lb 11.148 oz Body Mass Index (BMI) 61.3 Intake & Output: Intake and Output for Last 24 Hours 08/19/23 08/20/23 08/21/23 03:59 03:59 03:59 Intake Total 740 / 740 1470 / 1470 120 / 120 Output Total 250 / 250 960 / 960 400 / 400 Balance 490 / 490 510 / 510 -280 / -280 Lab / Micro Data 08/20/23 05:15 08/20/23 05:15 Labs: Laboratory Results - last 24 hr 08/19/23 12:00: POC Glucose 271 H 08/19/23 17:11: POC Glucose 298 H 08/19/23 21:20: POC Glucose 289 H 08/20/23 05:15: WBC 7.0, RBC 3.43 L, Hgb 11.0 L, Hct 34.6 L, MCV 100.9 H, MCH 32.1 H, MCHC 31.8 L, RDW Std Deviation 68.1 H, RDW Coeff of [place]iel 18.6 H, Plt Count 161, MPV 10.8, Immature Gran % (Auto) 1.100 H, Neut % (Auto) 80.4 H, Lymph % (Auto) 9.3 L, [place] % (Auto) 8.8, Eos % (Auto) 0.3, Baso % (Auto) 0.1, Absolute Neuts (auto) 5.6, Absolute Lymphs (auto) 0.65 L, Nucleated RBC % 0, Differential Comment SCANNED, Anisocytosis 2+, Macrocytosis 1+, Sodium 138, Potassium 4.6, Chloride 110 H, Carbon Dioxide 20.0 L, Anion Gap 8, BUN 94 H, Creatinine 3.70 H, Estim Creat Clear Calc 21.37, Est GFR (MDRD) Af Amer 22 L, Est GFR (MDRD) Non-Af 18 L, BUN/Creatinine Ratio 25.4 H, Glucose 279 H, Calcium 7.5 L 08/20/23 06:06: POC Glucose 277 H Radiography Diagnostic Testing: Radiology Impression Ankle X-Ray 08/19/23 15:50 IMPRESSION: Postoperative changes as described with healing fracture of the distal tibia and fibula. Normal alignment. Nonspecific soft tissue swelling as described. Electronically Signed: Brenda Lam MD at 16:59 EST , Physical Exam Narrative General: Drowsy but alert, Oriented x3, Cooperative, No apparent distress, morbidly obese HEENT: Atraumatic, PERRLA, EOMI, Normocephalic Oral: Moist Mucosa Neck: Supple, No JVD Lungs: Diminished, Normal air movement, No rhonchi, No wheeze, No rales Cardiovascular: Regular rate, Regular Rhythm, Normal S1, Normal S2, No murmurs Abdomen: Soft, Non Tender, Non-Distended, No Hepato-splenomegaly Extremities: Edema, Capillary Refill Less than 3 Seconds, cast on his left foot after fracture Skin: No rashes, No breakdown Musculoskeletal: No Tenderness to Palpation of Joints or Extremities Neurological: Cranial nerves II-XII grossly intact, Motor Exam 5/5 strength throughout, Sensory exam intact to light touch and pain Psych/Mental Status: Normal Affect, Appropriate Assessment & Plan Assessment/Plan (1) Debility: (2) Acute on chronic heart failure with preserved ejection fraction (HFpEF): PLAN: Plan 1. Acute on chronic HFpEF, anasarca with seepage of fluid:Patient is being admitted in PCU. Portable chest x-ray images reviewed, of optimal quality and shows underpenetration with left small effusion. Patient baseline blood pres sure is around 90s probably due to inadequate cuff size and improper BP measurement. Lasix 40 mg IV ordered. Heart failure core measures including intake and output, fluid restriction less than 1500 mL, daily weight monitoring, kidney and electrolytes monitoring. Patient recently had echo which was technically difficult study with LV systolic function appears normal. No further information could be obtained. At 130. 08/19/2023: We will continue with IV Lasix and monitor his blood pressure and his renal function 08/20/2023: Family is at bedside today and we had a 20-minute discussion on flaca ortega care planning, his previous house supervisor felt that he was not a candidate for dialysis and had recommended hospice however they wanted a second opinion. We will consult different house supervisor for their opinion today however I discussed with him that given his hypotension and his worsening renal function is worsening cardiac function in the setting of his liver transplant that he was likely not a candidate for dialysis and that hospice should be considered they were receptive to this discussion as they feel that he is also fairly apathetic about his care he refuses most nursing homes and a couple of the nursing homes that he has been to refuse to take him back so we will await nephrology's evaluation and then proceed. 2. AISSATOU on CKD stage IV: Patient baseline creatinine is around 2.5. Last BUNs/creatinine 75/2.93. Today's labs shows BUN/creatinine 85/3.69 with estimated creatinine clearance 21.43. Dr. Monae, her house supervisor has been consulted. During previous hospitalization was recommended for dialysis. BMP shows normal electrolytes with anion gap 6. UA shows WBC 0, negative LE and nitrite. Specific gravity normal. 08/19/2023: Renal function does appear to be improving with diuresis, he states that he gets a better response from Bumex?with Lasix 3. Paroxysmal A-fib: Twelve-lead EKG done in ED shows normal sinus rhythm first-degree AV block at 60 bpm, QTc 424 ms with LAD, low voltage QRS. No change from prior EKG of 08/13/2023. On amiodarone and metoprolol. On Eliquis. 4. Recent left bimalleolar fracture: Patient had mechanical fall to 3 days after Thanksgiving. Had ORIF during recent admission. Dr. Zamorano is being consulted. PT and OT. Patient is on nonweightbearing. 08/19/2023: 11 evaluated by PT and OT as he was here recently and discharged ho me to evaluate him for possible SNF placement. Will also reach out to podiatry to see if the transition to a boot can be done while he is here in the hospital. 5. History of cirrhosis s/p liver transplant: Patient on tacrolimus rifaximin and lactulose. On Bactrim DS. Liver chemistry normal range except alkaline phosphatase high at 266 probably from bone origin. As per he is on minimal dose of tacrolimus, tacrolimus level and immunosuppressant being managed by drug coordinator. 6. Hypothyroidism; on synthroid. Last TSH was in normal limit. 7. Depression; on citalopram 8. Super morbid obesity: BMI has increased recently probably from fluid retent ion, BMI 62.2 kg/m?. Complicates acute care, expected recovery and prognosis. 9. History of adrenal insufficiency: On hydrocortisone 10. History of left ear cancer: S/p resection. 11: Prediabetes: Last A1c 6.6 on 07/29/2023.Glucose in BMP is 336. Accu-Chek insulin coverage Humalog sliding scale. DVT: Eliquis Charges/Coding Visit Charges Inpatient E&M: 79007 Subs Hosp L2 Procedures Hospitalists Procedures: 89735 Advncd Care Plan 30 Min
[2023-08-20] MEDS: Amiodarone 200 MG Tablet PO (13:43)
[2023-08-20] MEDS: SACUBITRIL/VALSARTAN 49-51 MG TABLET 1 EACH PO (13:43)
--- NOTE | 2023-08-20 13:57 | CON.PCM.RE_ITS ---
Assessment & Plan Assessment/Plan (1) Acute on chronic heart failure with preserved ejection fraction (HFpEF): PLAN: CKD stage IV. Several fluctuations in creatinine but recently it is around 2.5-2.7. Slowly worsening. Massive volume overload. Extensive review of the chart. Etiology of anasarca unclear. Echocardiogram with preserved ejection fraction, the last echo was a poor quality study. Possible some diastolic dysfunction. CKD. No significant proteinuria. Liver function tests appear okay. ALT AST normal. Alkaline phosphatase slightly high. Bilirubin normal. INR normal. Likely a combination of heart failure and kidney disease related volume overload. Currently weight is at 194 kg. Another issue is low blood pressure which he seems to be perfusing well. In general he runs low blood pressure according to family. Asymptomatic. I suspect the measured blood pressures are not accurate. I have discussed with him various options including aggressive diuresis. For now I will stop Entresto, changed to oral high-dose Bumex. Will add metolazone as needed. We also discussed about dialysis. He has been mostly bedbound for the last several weeks, prior to that he was extremely weak, fell down around Thanks giving time and broke his ankle. Baseline functional status appears to be not great. Even if we plan for dialysis I am not sure if the dialysis units can accommodate him at this weight. I will have to check on that. Another issue is the low blood pressure which might worsen when he is on dialysis. After the end of discussion we all agreed that dialysis is probably not a great option. Discussed with hospitalist. We will start Bumex 4 mg twice a day. HPI Consult Data Date of Consult: 08/20/23 HPI Narrative Reason for Consultation: Acute on chronic renal failure HPI Narrative: ESTEFANIA MILLER, is a 62 M who presents to the hospital with massive edema. Nephrology on consultation due to acute on chronic renal failure. Somewhat complicated medical history, he has been in and out of the hospital for the last several months. He has known history of cirrhosis, due to alpha-1 antitrypsin, had a liver transplant, currently on immunosuppressive therapy including tacrolimus. His main issue right now is massive volume overload. According to him he has gained almost 100 pounds over the last 5 to 6 weeks. This is without any change in diet or any other medication changes. He has been placed on diuretics with moderate response. Has massive volume overload, more on the left side compared to the right side. Voiding okay without any problems. He has advanced CKD stage IV, baseline creatinine in the low twos now slightly worsening. Medication list reviewed. Discussed with and daughter at bedside. [facility] Medical History (Updated 08/20/23 @ 13:[address] Ghassan Song MD) (HFpEF) heart failure with preserved ejection fraction Acidosis, lactic Acute hypotension Adrenal insufficiency Adult failure to thrive Anasarca Anemia of chronic disease Anxiety Ascites Atherosclerotic heart disease of [place] coronary artery without angina pectoris Atrial fibrillation Atrial fibrillation with RVR Atrial flutter with rapid ventricular response (02/02/21) Bimalleolar avulsion fracture of left ankle BMI 50.0-59.9, adult CAD (coronary artery disease) Cancer of skin of left ear Cellulitis Chest pain Chronic anticoagulation Chronic diastolic congestive heart failure Chronic kidney disease, stage 3b Cirrhosis CKD (chronic kidney disease), stage IV Closed left humeral fracture Coronary artery disease Debility Elevated troponin GERD (gastroesophageal reflux disease) Gout History of non-ST elevation myocardial infarction (NSTEMI) (12/29/20) Hypertension Hypothyroidism Increased ammonia level Insomnia Iron deficiency anemia Kidney disease Lactic acidosis Lumbar radiculopathy Malaise and fatigue Morbid obesity Multiple falls FELIPE (nonalcoholic steatohepatitis) Nonsustained paroxysmal ventricular tachycardia (12/2020) Osteoarthritis of ankle and foot PAF (paroxysmal atrial fibrillation) Periprosthetic fracture around internal prosthetic joint Right hip pain Seborrhea of face SOB (shortness of breath) Stage 3b chronic kidney disease (CKD) Tachycardia Trimalleolar fracture of left ankle Unable to ambulate Venous insufficiency Vertigo, central Weakness Home Medications apixaban 5 mg tablet (Eliquis) 5 mg PO BID BLOOD THINNER 07/20/22 [History Last Taken 08/18/23] allopurinol 300 mg tablet 300 mg PO DAILY GOUT 11/04/22 [History Last Taken 08/18/23] tacrolimus 0.5 mg capsule, immediate-release 0.5 mg PO Q12H LIVER TRANSPLANT 11/06/22 [History Last Taken 08/18/23] nitroglycerin 0.4 mg sublingual tablet 0.4 mg sublingual Q5M PRN CHEST PAIN #25 tabs 11/27/22 [Rx Last Taken Unknown] citalopram 10 mg tablet 10 mg PO DAILY MOOD 02/08/23 [History Last Taken 08/18/23] amiodarone 200 mg tablet 200 mg PO DAILY BLOOD PRESSURE 02/14/23 [History Last Taken 08/18/23] ursodiol 300 mg capsule 300 mg PO BID GALLSTONES 02/14/23 [History Last Taken 08/18/23] prochlorperazine maleate 5 mg tablet 5 mg PO Q6H PRN NAUSEA/VOMITING 03/10/23 [History Last Taken 08/18/23] famotidine 20 mg tablet 20 mg PO Q12H ACID REFLUX 04/24/23 [History Last Taken 08/18/23] levothyroxine 25 mcg tablet 25 mcg PO DAILY THYROID 04/24/23 [History Last Taken 08/18/23] polysaccharide iron complex 150 mg iron capsule (Ferrex) 150 mg PO DAILY supplment 05/14/23 [History Last Taken 08/18/23] bumetanide 2 mg tablet 2 mg PO DAILY water pill 05/31/23 [History Last Taken 08/18/23] hydrocortisone 10 mg tablet 10 mg PO .COMPLEX help with legs 06/05/23 [History Last Taken 08/18/23] metoprolol tartrate 25 mg tablet 12.5 mg PO BID heart 06/05/23 [History Last Taken 08/18/23] sacubitril 49 mg-valsartan 51 mg tablet (Entresto) 1 tab PO BID repair heart muscle 06/05/23 [History Last Taken 08/18/23] lactulose 20 gram/30 mL oral solution 20 g (30 mL) PO TID liver disease #1,200 mL 06/07/23 [Rx Last Taken 08/18/23] rifaximin 550 mg tablet (Xifaxan) 550 mg PO BID help with liver #60 tabs 06/07/23 [Rx Last Taken 08/18/23] sulfamethoxazole 400 mg-trimethoprim 80 mg tablet 1 tab PO DAILY liver transplant 07/25/23 [History Last Taken 08/18/23] Allergy/AdvReac Type Severity Reaction Status Date / Time morphine Allergy Hives Verified 08/12/23 15:48 pravastatin [From Pravachol] Allergy Hives Verified 08/12/23 15:48 Stivsgq-ZUV-DgJ Reductase Allergy Hives Verified 08/12/23 15:48 Inhibitor [Nzlbabg-Exx-Zns Reductase Inhibitor] vancomycin Allergy NEEDS Verified 08/12/23 15:48 FOLLOW-UP zolpidem tartrate Allergy Hives Verified 08/12/23 15:48 [From Cristianaien] everolimus AdvReac Swelling Verified 08/12/23 15:48 gabapentin AdvReac NEEDS Verified 08/12/23 15:48 FOLLOW-UP Family History Mother Heart disease Father Heart disease Surgical History (Updated 08/20/23 @ 00:02 by Background Edilma) H/O shoulder surgery History of cardioversion (02/02/21) History of cataract extraction with lens replacement (~11/22/22) History of hip surgery History of liver transplant Liver transplant recipient S/P PTCA (percutaneous transluminal coronary angioplasty) Status post liver transplant (07/2017) Social History household members: spouse Smoking Status: Never smoker alcohol intake: former substance use type: does not use caffeine: No ROS ROS Narrative Negative except above Physical Exam Narrative Alert awake oriented x 3 no obvious distress no pallor no icterus no JVD s1s2 no murmurs lungs clear abdomen soft no organomegaly +++ edema no cyanosis Lab / Micro Data 08/20/23 05:15 08/20/23 05:15 Labs: Laboratory Results - last 24 hr 08/19/23 17:11: POC Glucose 298 H 08/19/23 21:20: POC Glucose 289 H 08/20/23 05:15: WBC 7.0, RBC 3.43 L, Hgb 11.0 L, Hct 34.6 L, MCV 100.9 H, MCH 32.1 H, MCHC 31.8 L, RDW Std Deviation 68.1 H, RDW Coeff of Maciel 18.6 H, Plt Count 161, MPV 10.8, Immature Gran % (Auto) 1.100 H, Neut % (Auto) 80.4 H, Lymph % (Auto) 9.3 L, [place] % (Auto) 8.8, Eos % (Auto) 0.3, Baso % (Auto) 0.1, Absolute Neuts (auto) 5.6, Absolute Lymphs (auto) 0.65 L, Nucleated RBC % 0, Differential Comment SCANNED, Anisocytosis 2+, Macrocytosis 1+, Sodium 138, Potassium 4.6, Chloride 110 H, Carbon Dioxide 20.0 L, Anion Gap 8, BUN 94 H, Creatinine 3.70 H, Estim Creat Clear Calc 21.37, Est GFR (MDRD) Af Amer 22 L, Est GFR (MDRD) Non-Af 18 L, BUN/Creatinine Ratio 25.4 H, Glucose 279 H, Calcium 7.5 L 08/20/23 06:06: POC Glucose 277 H 08/20/23 11:56: POC Glucose 275 H Imagaing Radiology Impression Ankle X-Ray 08/19/23 15:50 IMPRESSION: Postoperative changes as described with healing fracture of the distal tibia and fibula. Normal alignment. Nonspecific soft tissue swelling as described. Electronically Signed: Brenda Lam MD at 16:59 EST ,
[2023-08-20] MEDS: Bumetanide 2 MG Tablet 4 MG PO ×2 (14:45→22:38)
[2023-08-20] MEDS: Metoprolol Tartrate 25 MG Tablet 12.5 MG PO (16:00)
[2023-08-20] MEDS: Hydrocortisone 10 MG Tablet PO (16:01)
[2023-08-20] MEDS: proCHLORPERazine 5 MG Tablet PO (17:37)
[2023-08-20 17:50] LABS: Bedside Glucose 281 mg/dL (74-106)
[2023-08-20] MEDS: Acetaminophen 325 MG Tablet 650 MG PO (18:06)
[2023-08-21] VITALS (8 sets, daily range): BP systolic 70–97; BP diastolic 37–51; PULSE 66–70; RESP 18; TEMP 36.4–36.8; O2SAT 97–99; BMI 61.2
[2023-08-21] MEDS: proCHLORPERazine 5 MG Tablet PO ×2 (04:51→14:51)
[2023-08-21 05:31] LABS: Absolute Neutrophil Count 6.4 X10^3/uL (2.0-7.7); Basophil# 0.01 X10^3/uL; Basophil% 0.1 % (0-1); Eosinophil# 0.02 X10^3/uL; Eosinophils% 0.3 % (0-5); Hematocrit 35.4 % (40-54); Hemoglobin 11.3 g/dL (13.0-16.5); Lymphocyte % 7.7 % (19-41); Mean Corp Hgb Conc 31.9 g/dL (32-36); Mean Corpuscular Hgb 32.6 pg (27.0-32.0); Mean Platelet Vol. 10.6 fl (6.2-12.0); Monocyte# 0.65 X10^3/uL; Monocyte% 8.4 % (0-10); NRBC Flagged by Analyzer 0 % (0-5); Neutrophil # 6.43 X10^3/uL (2.7-7.7); Neutrophil % 82.7 % (47-70); POSITIVE DIFFERENTIAL YES; POSITIVE MORPHOLOGY YES; Platelet Count 156 K/mm3 (150-450); RBC Distribution Width CV 18.6 % (11.6-14.6); RBC Distribution Width SD 68.3 fl (35.1-43.9); Red Blood Count 3.47 M/mm3 (4.6-6.2); White Blood Count 7.8 K/mm3 (4.4-11.0)
[2023-08-21 06:06] LABS: Differential Indicated SCAN CRITERIA MET
[2023-08-21 06:06] LABS: Bedside Glucose 279 mg/dL (74-106)
[2023-08-21 06:10] LABS: Anion Gap 9 (5-15); BUN 101 mg/dL (7-18); BUN/Creat Ratio 25.4 RATIO (10-20); Calcium,Total 7.6 mg/dL (8.5-10.1); Chloride 108 mmol/L (98-107); Creatinine, Serum 3.97 mg/dL (0.70-1.30); EST Glomerular Filtration Rate 16 mL/min (>60); Est Glom Filt Rate - Afr Amer 20 mL/min (>60); Estimated Creatinine Clearance 19.92 ml/min; Glucose 316 mg/dL (74-106); Potassium 4.7 mmol/L (3.5-5.1); Sodium Level 137 mmol/L (136-145)
[2023-08-21] MEDS: Lactulose 20 GM/30 ML UDC PO ×3 (06:45→21:19)
[2023-08-21] MEDS: Levothyroxine 25 MCG TABLET PO (06:45)
[2023-08-21] MEDS: Insulin Lispro 100 UNIT/ML INSULN.PEN SC ×4 (06:54→21:19)
[2023-08-21 07:18] LABS: Bedside Glucose 293 mg/dL (74-106)
[2023-08-21 07:26] LABS: Anisocytosis 2+; Differential Comment SCANNED
[2023-08-21] MEDS: Famotidine 20 MG Tablet PO (08:53)
[2023-08-21] MEDS: rifAXIMin 550 MG Tablet PO ×2 (08:53→21:19)
[2023-08-21] MEDS: Ursodiol 250 MG Tablet PO ×2 (08:53→21:19)
[2023-08-21] MEDS: Amiodarone 200 MG Tablet PO (08:53)
[2023-08-21] MEDS: Citalopram 10 MG Tablet PO (08:53)
[2023-08-21] MEDS: Smz/Tmp Ds Tablet 0.5 TABLET PO (08:53)
[2023-08-21] MEDS: Bumetanide 2 MG Tablet 4 MG PO ×2 (08:53→21:19)
[2023-08-21] MEDS: Allopurinol 300 MG Tablet PO (08:54)
[2023-08-21] MEDS: APIXABAN 5 MG TABLET PO ×2 (08:54→21:19)
[2023-08-21] MEDS: Tacrolimus 0.5 MG Capsule PO ×2 (08:54→21:19)
[2023-08-21] MEDS: Hydrocortisone 10 MG Tablet 20 MG PO (08:54)
[2023-08-21] MEDS: Iron Polysaccharide Complex 150 MG CAPSULE PO (08:54)
--- NOTE | 2023-08-21 10:58 | CASEMGMT ---
SW went to patient's room per his request. Patient and his Sheba were present. Sheba and patient both said they would like patient to go home on Hospice. Their daughter was calling hospice. They just spoke with physician and told him that they would go to [facility], but they have changed their mind and would like patient to go home on hospice. SW notified physician and he was okay with making a referral to Hospice. SW made referral to Asha at [facility]. Kaley SWEENEY
[2023-08-21 12:05] LABS: Bedside Glucose 302 mg/dL (74-106)
--- NOTE | 2023-08-21 14:47 | PCM.PN.HOSP ---
Subjective Subjective Doing well, no issues overnight. Renal function continues to worsen Objective Data Objective Data Vital Signs: Vital Signs Temp Pulse Resp BP Pulse Ox O2 Del Method 98.3 F 68 18 97/45 L 99 Room Air 08/21/23 08:50 08/21/23 08:55 08/21/23 08:50 08/21/23 08:55 08/21/23 08:50 08/21/23 14:28 Oxygen Delivery Method Room Air Weight: 427 lb 0.566 oz Body Mass Index (BMI) 61.2 Intake & Output: Intake and Output for Last 24 Hours 08/20/23 08/21/23 08/22/23 03:59 03:59 03:59 Intake Total 1470 / 1470 1110 / 1110 950 / 950 Output Total 960 / 960 1050 / 1050 850 / 850 Balance 510 / 510 60 / 60 100 / 100 Lab / Micro Data 08/21/23 05:05 08/21/23 05:05 Labs: Laboratory Results - last 24 hr 08/20/23 16:04: POC Glucose 281 H 08/20/23 23:06: POC Glucose 279 H 08/21/23 05:05: WBC 7.8, RBC 3.47 L, Hgb 11.3 L, Hct 35.4 L, MCV 102.0 H, MCH 32.6 H, MCHC 31.9 L, RDW Std Deviation 68.3 H, RDW Coeff of Maciel 18.6 H, Plt Count 156, MPV 10.6, Immature Gran % (Auto) 0.800, Neut % (Auto) 82.7 H, Lymph % (Auto) 7.7 L, [place] % (Auto) 8.4, Eos % (Auto) 0.3, Baso % (Auto) 0.1, Absolute Neuts (auto) 6.4, Absolute Lymphs (auto) 0.60 L, Nucleated RBC % 0, Differential Comment SCANNED, Anisocytosis 2+, Sodium 137, Potassium 4.7, Chloride 108 H, Carbon Dioxide 20.0 L, Anion Gap 9, BUN 101 H*, Creatinine 3.97 H, Estim Creat Clear Calc 19.92, Est GFR (MDRD) Af Amer 20 L, Est GFR (MDRD) Non-Af 16 L, BUN/Creatinine Ratio 25.4 H, Glucose 316 H, Calcium 7.6 L 08/21/23 06:53: POC Glucose 293 H 08/21/23 11:43: POC Glucose 302 H Physical Exam Narrative General: Alert, Oriented x3, Cooperative, No apparent distress, morbidly obese HEENT: Atraumatic, PERRLA, EOMI, Normocephalic Oral: Moist Mucosa Neck: Supple, No JVD Lungs: Diminished, Normal air movement, No rhonchi, No wheeze, No rales Cardiovascular: Regular rate, Regular Rhythm, Normal S1, Normal S2, No murmurs Abdomen: Soft, Non Tender, Non-Distended, No Hepato-splenomegaly Extremities: Edema, Capillary Refill Less than 3 Seconds, cast on his left foot after fracture Skin: No rashes, No breakdown Musculoskeletal: No Tenderness to Palpation of Joints or Extremities Neurological: Cranial nerves II-XII grossly intact, Motor Exam 5/5 strength throughout, Sensory exam intact to light touch and pain Psych/Mental Status: Normal Affect, Appropriate Assessment & Plan Assessment/Plan (1) Debility: (2) Acute on chronic heart failure with preserved ejection fraction (HFpEF): PLAN: Plan 1. Acute on chronic HFpEF, anasarca with seepage of fluid:Patient is being admitted in PCU. Portable chest x-ray images reviewed, of optimal quality and shows underpenetration with left small effusion. Patient baseline blood pressure is around 90s probably due to inadequate cuff size and improper BP measurement. Lasix 40 mg IV ordered. Heart failure core measures including intake and output, fluid restriction less than 1500 mL, daily weight monitoring, kidney and electrolytes monitoring. Patient recently had echo which was technically difficult study with LV systolic function appears normal. No further information could be obtained. At 130. 08/19/2023: We will continue with IV Lasix and monitor his blood pressure and his renal function 08/20/2023: Family is at bedside today and we had a 20-minute discussion on advance care planning, his previous flight/transport nurse felt that he was not a candidate for dialysis and had recommended hospice however they wanted a second opinion. We will consult different flight/transport nurse for their opinion today however I discussed with him that given his hypotension and his worsening renal function is worsening cardiac function in the setting of his liver transplant that he was likely not a candidate for dialysis and that hospice should be considered they were receptive to this discussion as they feel that he is also fairly apathetic about his care he refuses most nursing homes and a couple of the nursing homes that he has been to refuse to take him back so we will await nephrology's evaluation and then proceed. 08/21/2023: Renal function continues to worsen, nephrology also did not recommend dialysis and family has decided to proceed with hospice. I discussed the possibility of continuing current medical care and seeing how he does at the halfway however they do not want to go to a halfway and with his worsening renal function he would prefer to just go home on hospice. Social work is currently setting this up for the next day or 2. 2. AISSATOU on CKD stage IV: Patient baseline creatinine is around 2.5. Last BUNs/creatinine 75/2.93. Today's labs shows BUN/creatinine 85/3.69 with estimated creatinine clearance 21.43. Dr. Monae, her flight/transport nurse has been consulted. During previous hospitalization was recommended for dialysis. BMP shows normal electrolytes with anion gap 6. UA shows WBC 0, negative LE and nitrite. Specific gravity normal. 08/19/2023: Renal function does appear to be improving with diuresis, he states that he gets a better response from Bumex?with Lasix 08/21/2023: Nephrology recommended transitioning to p.o. Bumex, renal function has worsened today from yesterday will continue to monitor 3. Paroxysmal A-fib: Twelve-lead EKG done in ED shows normal sinus rhythm first-degree AV block at 60 bpm, QTc 424 ms with LAD, low voltage QRS. No change from prior EKG of 08/13/2023. On amiodarone and metoprolol. On Eliquis. 4. Recent left bimalleolar fracture: Patient had mechanical fall to 3 days after Thanksgiving. Had ORIF during recent admission. Dr. Zamorano is being consulted. PT and OT. Patient is on nonweightbearing. 08/19/2023: 11 evaluated by PT and OT as he was here recently and discharged home to evaluate him for possible SNF placement. Will also reach out to podiatry to see if the transition to a boot can be done while he is here in the hospital. 5. History of cirrhosis s/p liver transplant: Patient on tacrolimus rifaximin and lactulose. On Bactrim DS. Liver chemistry normal range except alkaline phosphatase high at 266 probably from bone origin. As per he is on minimal dose of tacrolimus, tacrolimus level and immunosuppressant being managed by helper coordinator. 6. Hypothyroidism; on synthroid. Last TSH was in normal limit. 7. Depression; on citalopram 8. Super morbid obesity: BMI has increased recently probably from fluid retention, BMI 62.2 kg/m?. Complicates acute care, expected recovery and prognosis. 9. History of adrenal insufficiency: On hydrocortisone 10. History of left ear cancer: S/p resection. 11: Prediabetes: Last A1c 6.6 on 07/29/2023.Glucose in BMP is 336. Accu-Chek insulin coverage Humalog sliding scale. DVT: Eliquis Charges/Coding Visit Charges Inpatient E&M: 15105 Subs Hosp L2
--- NOTE | 2023-08-21 15:21 | PCM.PN.REN ---
Subjective Subjective Resting in bed. at bedside. Patient dozing off and on during conversation Objective Data Objective Data Vital Signs: Vital Signs Temp Pulse Resp BP Pulse Ox O2 Del Method 97.8 F 68 18 84/51 L 98 Room Air 08/21/23 14:50 08/21/23 14:50 08/21/23 14:50 08/21/23 14:50 08/21/23 14:50 08/21/23 14:50 Oxygen Delivery Method Room Air Weight: 193.7 kg Body Mass Index (BMI) 61.2 Intake & Output: Intake and Output for Last 24 Hours 08/19/23 08/20/23 08/21/23 23:59 23:59 23:59 Intake Total 1030 / 1470 1310 / 1550 1190 / 1190 Output Total 960 / 960 800 / 1050 1100 / 1100 Balance 70 / 510 510 / 500 90 / 90 Lab / Micro Data 08/21/23 05:05 08/21/23 05:05 Labs: Laboratory Results - last 24 hr 08/20/23 16:04: POC Glucose 281 H 08/20/23 23:06: POC Glucose 279 H 08/21/23 05:05: WBC 7.8, RBC 3.47 L, Hgb 11.3 L, Hct 35.4 L, MCV 102.0 H, MCH 32.6 H, MCHC 31.9 L, RDW Std Deviation 68.3 H, RDW Coeff of Maciel 18.6 H, Plt Count 156, MPV 10.6, Immature Gran % (Auto) 0.800, Neut % (Auto) 82.7 H, Lymph % (Auto) 7.7 L, [place] % (Auto) 8.4, Eos % (Auto) 0.3, Baso % (Auto) 0.1, Absolute Neuts (auto) 6.4, Absolute Lymphs (auto) 0.60 L, Nucleated RBC % 0, Differential Comment SCANNED, Anisocytosis 2+, Sodium 137, Potassium 4.7, Chloride 108 H, Carbon Dioxide 20.0 L, Anion Gap 9, BUN 101 H*, Creatinine 3.97 H, Estim Creat Clear Calc 19.92, Est GFR (MDRD) Af Amer 20 L, Est GFR (MDRD) Non-Af 16 L, BUN/Creatinine Ratio 25.4 H, Glucose 316 H, Calcium 7.6 L 08/21/23 06:53: POC Glucose 293 H 08/21/23 11:43: POC Glucose 302 H Physical Exam Narrative Alert awake oriented x 3 no obvious distress s1s2 no murmurs lungs diminished breath sounds abdomen soft no organomegaly +++ edema Assessment & Plan Assessment/Plan (1) Acute on chronic heart failure with preserved ejection fraction (HFpEF): PLAN: CKD stage IV. Several fluctuations in creatinine but recently it is around 2.5-2.7. Today serum creatinine 3.9, BUN 101, slowly worsening. Patient is nonoliguric. Massive volume overload. Etiology of anasarca unclear. Echocardiogram with preserved ejection fraction, the last echo was a poor quality study. Possible some diastolic dysfunction. No significant proteinuria. Liver function tests appear okay. ALT AST normal. Alkaline phosphatase slightly high. Bilirubin normal. INR normal. Likely a combination of heart failure and kidney disease related volume overload. Currently weight is at 194 kg. Continue bumetanide 4 mg twice daily. Will add metolazone. Yesterday it was discussed with patient and family various options including aggressive diuresis vs hemodialysis. I reviewed with patient and today that outpatient hemodialysis chair can accommodate up to 350 pounds. Hemodialysis unit at [facility] unable to accommodate patient due to larger size, dialysis machine cannot adequately accommodate. Also discussed option of hemodialysis at [facility] out [facility] but stated that is not an option. Questions answered regarding outpatient hemodialysis at kidney center vs ECF. states they have decided hospice with no dialysis.
--- NOTE | 2023-08-21 15:27 | CASEMGMT ---
Patient signed with [facility]. Plan will be discharge home on [facility]. Kaley SWEENEY
[2023-08-21] MEDS: Hydrocortisone 10 MG Tablet PO (16:57)
[2023-08-21 17:02] LABS: Bedside Glucose 304 mg/dL (74-106)
[2023-08-21 21:45] LABS: Bedside Glucose 314 mg/dL (74-106)
[2023-08-22 02:11] VITALS: BP 89/43; PULSE 74; RESP 18; TEMP 36.5; O2SAT 97
[2023-08-22 04:31] VITALS: BP 97/38; PULSE 76; RESP 18; TEMP 36.7; O2SAT 98
[2023-08-22] MEDS: Acetaminophen 325 MG Tablet 650 MG PO (05:24)
[2023-08-22] MEDS: Lactulose 20 GM/30 ML UDC PO (05:25)
[2023-08-22] MEDS: Levothyroxine 25 MCG TABLET PO (05:25)
[2023-08-22 06:00] VITALS: BMI 62.2
[2023-08-22] MEDS: Insulin Lispro 100 UNIT/ML INSULN.PEN SC ×2 (06:45→11:07)
[2023-08-22 07:06] LABS: Bedside Glucose 286 mg/dL (74-106)
[2023-08-22 09:02] VITALS: BP 97/45; PULSE 75; RESP 18; TEMP 36.4; O2SAT 99
[2023-08-22] MEDS: Hydrocortisone 10 MG Tablet 20 MG PO (09:11)
[2023-08-22] MEDS: Smz/Tmp Ds Tablet 0.5 TABLET PO (09:11)
[2023-08-22] MEDS: APIXABAN 5 MG TABLET PO (09:12)
[2023-08-22] MEDS: Tacrolimus 0.5 MG Capsule PO (09:12)
[2023-08-22] MEDS: Amiodarone 200 MG Tablet PO (09:12)
[2023-08-22] MEDS: Allopurinol 300 MG Tablet PO (09:12)
[2023-08-22] MEDS: Iron Polysaccharide Complex 150 MG CAPSULE PO (09:12)
[2023-08-22] MEDS: Famotidine 20 MG Tablet PO (09:12)
[2023-08-22] MEDS: Bumetanide 2 MG Tablet 4 MG PO (09:12)
[2023-08-22] MEDS: rifAXIMin 550 MG Tablet PO (09:12)
[2023-08-22] MEDS: Citalopram 10 MG Tablet PO (09:12)
[2023-08-22] MEDS: Ursodiol 250 MG Tablet PO (09:12)
[2023-08-22] MEDS: metOLazone 5 MG Tablet PO (09:18)
[2023-08-22 11:26] LABS: Bedside Glucose 359 mg/dL (74-106)
--- NOTE | 2023-08-22 11:29 | CASEMGMT ---
TONY called patient's to see if all equipment has been delivered. Sheba said that the bariatric hospital bed will be delivered in the next few minutes. TONY let Sheba know SW will set up transport for this afternoon. TONY asked Vania d/c event planning manager to please set up transport for 2p via bariatric cot. Once this is set up TONY will notify [facility]. Kaley Riddle INTERMEDIATE FRAME TENDER ZAHRA
--- NOTE | 2023-08-22 11:53 | CASEMGMT ---
Discharge Planning [facility] will transport patient home by cot at 2p. SW updated. Vania Hill, Discharge Planning Asst.
--- NOTE | 2023-08-22 12:47 | CASEMGMT ---
SW notified patient and his that [facility] will be at [facility] to coal picker patient at 2p. Patient said someone called him and told him coal picker is 1p. SW called [facility]icians and they said it was not them and they plan on being at [facility] at 2p. SW will notify patient and his . Millinery Blocker and physician also notified. Plan: d/c home with [facility]. Kaley SWEENEY
[2023-08-22 12:53] VITALS: BP 100/47; PULSE 77; RESP 20; TEMP 36.4; O2SAT 98
--- NOTE | 2023-08-22 12:57 | DCINST_ITS ---
Discharge Instructions Diet Discharge Diet: No restrictions Follow Up Care Test Results: Test results from this visit will be discussed in further detail at your follow- up appointment, if applicable. Discharge Plan Admission Admit Date/Time: 08/20/23 14:23 Attending Provider: Sachin Parks Primary Care Provider: Lance Bose Chi Consulting Providers: Sachin Parks; Gonzalo Diaz; Larry Zamorano; Ghassan Song; Andrew David; Esperanza Colindres; Kori Yates; Michell Washington NP Discharge Orders/Prescriptions Prescriptions: Continued nitroglycerin 0.4 mg tablet, sublingual 0.4 mg sublingual Q5M PRN (Reason: CHEST PAIN ) Qty: 25 1RF Rx Instructions: do not exceed 3 doses per episode lactulose 20 gram/30 mL solution 20 g PO TID Qty: 1200 11RF Xifaxan 550 mg tablet 550 mg PO BID Qty: 60 11RF bumetanide 2 mg tablet 2 mg PO DAILY hydrocortisone 10 mg tablet 10 mg PO .COMPLEX Rx Instructions: 10 mg orally; 2 tabs daily in the morning, then 1 tab daily in the evening. metoprolol tartrate 25 mg tablet 12.5 mg PO BID Patient Comments: TAKE 1 TABLET BY MOUTH TWICE DAILY Entresto 49-51 mg tablet 1 tab PO BID Eliquis 5 mg tablet 5 mg PO BID allopurinol 300 mg tablet 300 mg PO DAILY tacrolimus 0.5 mg capsule 0.5 mg PO Q12H citalopram 10 mg tablet 10 mg PO DAILY amiodarone 200 mg tablet 200 mg PO DAILY ursodiol 300 mg capsule 300 mg PO BID famotidine 20 mg Tablet 20 mg PO Q12H levothyroxine 25 mcg Tablet 25 mcg PO DAILY sulfamethoxazole-trimethoprim 400-80 mg tablet 1 tab PO DAILY Patient Comments: TAKE 1 TABLET BY MOUTH DAILY prochlorperazine maleate 5 mg Tablet 5 mg PO Q6H PRN (Reason: NAUSEA/VOMITING) polysaccharide iron complex [Ferrex 150] 150 mg iron capsule 150 mg PO DAILY Referrals / Follow Up: Lance Bose Chi, MD [Primary Care Provider] - Disposition Disposition (needs filled in before D/C Order can be placed): Hospice in Home
--- NOTE | 2023-08-22 13:08 | CASEMGMT ---
Patient is ready to be discharged home on [facility]. TONY faxed d/c instructions to [facility]. Plan: d/c home on [facility]. [facility] transported patient via bariatric cot. Kaley SWEENEY
--- NOTE | 2023-08-22 13:56 | PCM.DC.SUM ---
Providers Date of Admission: 08/20/23 Primary Care Physician: Dr. Lance Bose MD Consultations 08/19/23 10:46 Consult: Podiatry Routine Consulting Provider: Larry Zamorano Reason for Consult: left ankle fracture s/p ORIF EMERGENT Consult: No Notified: Yes Date Notified: 08/18/23 Time Notified: 17:46 Method of Notification: Verbal 08/20/23 11:03 Consult: Nephrology Routine Consulting Provider: Ghassan Song Reason for Consult: AISSATOU on CKD. Pt request second opinion. EMERGENT Consult: No Notified: Yes Date Notified: 08/20/23 Time Notified: 11:03 Method of Notification: Answering Service 08/21/23 10:57 Consult: Hospice / Palliative Care Routine Consulting Provider: [facility] Reason for Consult: End Stage Kidney disease, not dialysis candidate; CHF EMERGENT Consult: No Notified: Yes Date Notified: 08/21/23 Time Notified: 10:57 Method of Notification: Answering Service Comments:: by social work Reason For Visit: FLUID OVERLOAD, SWELLING Diagnosis Discharge Diagnosis (1) Acute on chronic heart failure with preserved ejection fraction (HFpEF): Status: Acute Code(s): I50.33 - Acute on chronic diastolic (congestive) heart failure Medications at Discharge Home Medications apixaban 5 mg tablet (Eliquis) 5 mg PO BID BLOOD THINNER 07/20/22 allopurinol 300 mg tablet 300 mg PO DAILY GOUT 11/04/22 tacrolimus 0.5 mg capsule, immediate-release 0.5 mg PO Q12H LIVER TRANSPLANT 11/06/22 nitroglycerin 0.4 mg sublingual tablet 0.4 mg sublingual Q5M PRN CHEST PAIN #25 tabs 11/27/22 citalopram 10 mg tablet 10 mg PO DAILY MOOD 02/08/23 amiodarone 200 mg tablet 200 mg PO DAILY BLOOD PRESSURE 02/14/23 ursodiol 300 mg capsule 300 mg PO BID GALLSTONES 02/14/23 prochlorperazine maleate 5 mg tablet 5 mg PO Q6H PRN NAUSEA/VOMITING 03/10/23 famotidine 20 mg tablet 20 mg PO Q12H ACID REFLUX 04/24/23 levothyroxine 25 mcg tablet 25 mcg PO DAILY THYROID 04/24/23 polysaccharide iron complex 150 mg iron capsule (Ferrex) 150 mg PO DAILY supplment 05/14/23 bumetanide 2 mg tablet 2 mg PO DAILY water pill 05/31/23 hydrocortisone 10 mg tablet 10 mg PO .COMPLEX help with legs 06/05/23 metoprolol tartrate 25 mg tablet 12.5 mg PO BID heart 06/05/23 sacubitril 49 mg-valsartan 51 mg tablet (Entresto) 1 tab PO BID repair heart muscle 06/05/23 lactulose 20 gram/30 mL oral solution 20 g (30 mL) PO TID liver disease #1,200 mL 06/07/23 rifaximin 550 mg tablet (Xifaxan) 550 mg PO BID help with liver #60 tabs 06/07/23 sulfamethoxazole 400 mg-trimethoprim 80 mg tablet 1 tab PO DAILY liver transplant 07/25/23 Hospital Course Operations None Procedures None Summary of Care Provided Minutes Spent on Discharge: 38 Hospital Course: Per HPI: ESTEFANIA MILLER, is a 62 M with multiple comorbidities including super morbid obesity was brought by squad for complaint of leaking water from all over the body. Patient was recently admitted between 08/19-1322 for AISSATOU on CKD4 with hyperkalemia, A-fib with RVR. Patient on Bumex 2 mg daily along with Entresto 49 to 51 mg twice daily. As per patient's and daughter near the bedside he sleeps all the time, somnolent along with the weight gain and increasing generalized swelling. also said that he is soaked with the fluid and leaking water from all over. Patient does not complain of chest pain pressure or tightness. He also does not complain of chest congestion or new symptoms like cough or URI since discharge. Patient's hoping that he can go to TCU for rehab. Patient's said he is also waiting for hospital bed to arrive at home. Patient blood pressure is around 90s with the blood pressure cuff taken at rest at home and similarly here. said that when the blood pressure cuff is put around arm it is gets bruised. Wrist pressure was low 71/49 which improved to 101/48. Patient wakes up and give little bit history. Of note, patient also broke left bimalleolar fracture and had ORIF by Dr. Zamorano is supposed to give him boot next week. Labs, x-rays and EKG reviewed and discussed in assessment and plan. Hospital Course: 1. Acute on chronic diastolic heart failure with anasarca and worsening renal failure?62-year-old male presents to the hospital with increasing shortness of breath as well as weight gain and swelling. He did have improvement in his shortness of breath with his Lasix but his renal function did worsen. He had had medical genetics director tell him that he was not a candidate for dialysis but he would prefer to have a second opinion so a second consult was placed for a different nephrology group who also concurred that he is not a candidate for dialysis secondary to his chronic comorbidities and his morbid obesity. We had multiple discussions on prognosis and discussed the possibility of a custodial versus hospice initially they agreed for custodial but then ultimately changed her mind and decided to proceed with hospice care since he was not a candidate for dialysis. His care is also complicated by the fact that he is a liver transplant patient. He was transition to being a DNR CC after discussions with him and his today and hospice was able to procure a bariatric bed for home so he was discharged home today to proceed with hospice care. He can resume all of his home medications on discharge. 2. Recent left bimalleolar fracture?he had a recent fall and had an ORIF in July, podiatry was able to take the cast off and transition into a boot. Pain is controlled in the foot. 3. Paroxysmal A-fib, hypothyroidism, depression, adrenal insufficiency, status post liver transplant for cirrhosis, all chronic medical conditions which complicate his care. His home medications were continued where appropriate Physical Exam Narrative General: Alert, Oriented x3, Cooperative, No apparent distress, morbidly obese HEENT: Atraumatic, PERRLA, EOMI, Normocephalic Oral: Moist Mucosa Neck: Supple, No JVD Lungs: Diminished, Normal air movement, No rhonchi, No wheeze, No rales Cardiovascular: Regular rate, Regular Rhythm, Normal S1, Normal S2, No murmurs Abdomen: Soft, Non Tender, Non-Distended, No Hepato-splenomegaly Extremities: Edema, Capillary Refill Less than 3 Seconds, cast on his left foot after fracture Skin: No rashes, No breakdown Musculoskeletal: No Tenderness to Palpation of Joints or Extremities Neurological: Cranial nerves II-XII grossly intact, Motor Exam 5/5 strength throughout, Sensory exam intact to light touch and pain Psych/Mental Status: Normal Affect, Appropriate Weight / BMI Weight Weight: 434 lb 1.443 oz Body Mass Index (BMI) 62.2 ABG / Lab / Microbiology Data 08/21/23 05:05 08/21/23 05:05 Laboratory: Laboratory Results - last 24 hr 08/21/23 16:44: POC Glucose 304 H 08/21/23 21:15: POC Glucose 314 H 08/22/23 06:44: POC Glucose 286 H 08/22/23 11:06: POC Glucose 359 H D/C Instructions Discharge Diet: No restrictions Meaningful Use Info Meaningful Use Diagnoses (Choose all that apply): None applicable Discharge Plan Admission Admit Date/Time: 08/20/23 14:23 Attending Provider: Sachin Parks Primary Care Provider: Lance Bose Chi Consulting Providers: Sachin Parks; Gonzalo Diaz; Larry Zamorano; Ghassan Song; Andrew David; Esperanza Colindres; Kori Yates; Michell Washington [employer] Discharge Orders/Prescriptions Prescriptions: Continued nitroglycerin 0.4 mg tablet, sublingual 0.4 mg sublingual Q5M PRN (Reason: CHEST PAIN ) Qty: 25 1RF Rx Instructions: do not exceed 3 doses per episode lactulose 20 gram/30 mL solution 20 g PO TID Qty: 1200 11RF Xifaxan 550 mg tablet 550 mg PO BID Qty: 60 11RF bumetanide 2 mg tablet 2 mg PO DAILY hydrocortisone 10 mg tablet 10 mg PO .COMPLEX Rx Instructions: 10 mg orally; 2 tabs daily in the morning, then 1 tab daily in the evening. metoprolol tartrate 25 mg tablet 12.5 mg PO BID Patient Comments: TAKE 1 TABLET BY MOUTH TWICE DAILY Entresto 49-51 mg tablet 1 tab PO BID Eliquis 5 mg tablet 5 mg PO BID allopurinol 300 mg tablet 300 mg PO DAILY tacrolimus 0.5 mg capsule 0.5 mg PO Q12H citalopram 10 mg tablet 10 mg PO DAILY amiodarone 200 mg tablet 200 mg PO DAILY ursodiol 300 mg capsule 300 mg PO BID famotidine 20 mg Tablet 20 mg PO Q12H levothyroxine 25 mcg Tablet 25 mcg PO DAILY sulfamethoxazole-trimethoprim 400-80 mg tablet 1 tab PO DAILY Patient Comments: TAKE 1 TABLET BY MOUTH DAILY prochlorperazine maleate 5 mg Tablet 5 mg PO Q6H PRN (Reason: NAUSEA/VOMITING) polysaccharide iron complex [Ferrex 150] 150 mg iron capsule 150 mg PO DAILY Referrals / Follow Up: Lance Bose Chi, MD [Primary Care Provider] - Disposition Disposition (needs filled in before D/C Order can be placed): Hospice in Home Charges/Coding Visit Charges Inpatient E&M: 10716 Disch Hosp >30min
== END 2023-08-22 14:31 | disposition hospice, home (50) | DRG 291 ==
LOC: ED 16:16 → PCU 16:23
PROVIDERS: Admitting Provider Internal Medicine; Emergency Provider Emergency Medicine; PCP Family Medicine Geriatric Medicine; Visit Provider Family Medicine
DX: I13.0 Hypertensive heart and chronic kidney disease with heart failure and stage 1 through stage 4 chronic kidney disease, or unspecified chronic kidney disease (principal); I50.33 Acute on chronic diastolic (congestive) heart failure; N17.9 Acute kidney failure, unspecified; E27.40 Unspecified adrenocortical insufficiency; N18.4 Chronic kidney disease, stage 4 (severe); Z68.44 Body mass index [BMI] 60.0-69.9, adult; Z94.4 Liver transplant status; I95.9 Hypotension, unspecified; Z79.01 Long term (current) use of anticoagulants; I25.10 Atherosclerotic heart disease of native coronary artery without angina pectoris; I48.0 Paroxysmal atrial fibrillation; E66.01 Morbid (severe) obesity due to excess calories; E03.9 Hypothyroidism, unspecified; M10.9 Gout, unspecified; W19.XXXD Unspecified fall, subsequent encounter; S82.852D Displaced trimalleolar fracture of left lower leg, subsequent encounter for closed fracture with routine healing; R73.03 Prediabetes; R53.81 Other malaise; Z79.2 Long term (current) use of antibiotics; Z79.52 Long term (current) use of systemic steroids; Z79.899 Other long term (current) drug therapy; Z66 Do not resuscitate
CPT/HCPCS: 36415; 71045; 73610; 80048; 80053; 81001; 82962; 83735; 83880; 84484; 85025; 85610; 85730; 93005; 97110; 97162; 97166; 97530; 97535; 97802; 99285; J7040; A4216; J1940